=== PATIENT | female | born 1980 | race Caucasian/White ===

== ENCOUNTER 2022-02-11 00:28 | Observation (INO) | payer OTHER, SELFPAY ==
[2022-02-11] VITALS (9 sets, daily range): BP systolic 94–137; BP diastolic 52–89; PULSE 62–92; RESP 14–20; TEMP 36.1–36.9; O2SAT 94–100; BMI 34.7
--- NOTE | 2022-02-11 00:58 | ED_ITS ---
HPI - General Adult General Chief complaint: Abdominal Pain <Rosario Garcia MD - Last Filed: 02/11/22 02:08> Stated complaint: Abdominal Pain <Rosario Garcia MD - Last Filed: 02/11/22 02:08> Time Seen by Provider: 02/11/22 00:43 <Rosario Garcia MD - Last Filed: 02/11/22 02:08> Source: patient <Rosario Garcia MD - Last Filed: 02/11/22 02:08> Mode of arrival: ambulatory <Rosario Garcia MD - Last Filed: 02/11/22 02:08> Limitations: no limitations <Rosario Garcia MD - Last Filed: 02/11/22 02:08> History of Present Illness HPI narrative: 41-year-old female coming in today with abdominal pain. States that she has chronic pancreatitis and this feels like a flare up. 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 Pain is in the epigastric region radiates to the left upper quadrant and up into her left shoulder. [place] in the [place] there and it was recommended that she be admitted, however, she did not want to be admitted so far away from home so she felt that she could manage at home. The pain has come and gone however it is slowly getting worse. She has been using Valium and the lot it at home which does help with the pain but she feels like she has not been able to keep up with it today she has also had decreased p.o. intake as she feels very nauseated. She denies vomiting. No fevers or chills. States that she does have mucousy yellow stools. He denies . States that she has had a cholecystectomy in the past. <Rosario Garcia MD - Last Filed: 02/11/22 02:08> Related Data Home medications: Home Medications Medication Instructions Recorded Confirmed albuterol sulfate 90 mcg/actuation INHALATION 02/11/22 aerosol inhaler atorvastatin 20 mg tablet mg 02/11/22 duloxetine 30 mg capsule,delayed mg PO 02/11/22 release fexofenadine 180 mg tablet mg 02/11/22 fluconazole 150 mg tablet mg 02/11/22 fluticasone 250 mcg-salmeterol 50 INHALATION 02/11/22 mcg/dose blistr powdr for inhalation hydromorphone 4 mg tablet mg 02/11/22 hydroxyzine HCl 25 mg tablet mg 02/11/22 lorazepam 0.5 mg tablet mg 02/11/22 ondansetron 4 mg disintegrating mg 02/11/22 tablet <Rosario Garcia MD - Last Filed: 02/11/22 02:08> Allergies/adverse reactions: Allergies Allergy/AdvReac Type Severity Reaction Status Date / Time polyethylene glycol Allergy Anaphylaxis Verified 02/11/22 00:44 fentanyl AdvReac pain Verified 02/11/22 00:44 <Rosario Garcia MD - Last Filed: 02/11/22 02:08> Review of Systems Status of ROS: Reports: 10 or more systems reviewed and unremarkable except as noted in History and below <Rosario Garcia MD - Last Filed: 02/11/22 02:08> [facility] Social History: Social History Smoking Status: Current some day smoker How often do you have a drink containing alcohol: never AUDIT-C Alcohol total score: 0 Non-prescribed substance use: denies use <Rosario Garcia MD - Last Filed: 02/11/22 02:08> Exam Narrative: Exam Narrative: Well-nourished well-developed patient in no acute distress, but appears very uncomfortable. Alert and oriented. Answers questions appropriately. Mood and affect are appropriate. Thoughts are goal oriented and rational. No tangential or magical thinking noted. Patient speaks in full sentences without needing to catch their breath. Speech is not slurred or pressured. HEENT: Normocephalic atraumatic. Pupils are equally round reactive to light. Extraocular muscles are intact. Conjunctivae are moist without any icterus noted. Moist mucous membranes. Posterior pharynx is normal. Neck is soft without any lymphadenopathy or thyromegaly. No masses are appreciated. Cardiovascular: Heart is regular rate and rhythm S1 and S2 are present without any murmurs. Lungs: Clear to auscultation bilaterally no wheezes rhonchi or rales are appreciated. Patient takes deep breaths without any discomfort. Abdomen: Soft and nondistended with normal bowel sounds. No guarding or r ebound. No masses or organomegaly appreciated. She does have some epigastric tenderness. Extremities: Bilateral lower extremities are without edema. Normal DP and PT pulses. Skin: Well perfused without any obvious rashes. <Rosario Garcia MD - Last Filed: 02/11/22 02:08> Const: Vital Signs, click to edit/add: Vital Signs - 24 hr 02/11/22 00:37 Temperature 97.8 F Pulse Rate [Left P ulse Oximeter] 77 Respiratory Rate 16 Blood Pressure [Ri ght Upper Arm] 131/89 Pulse Oximetry 98 <Rosario Garcia MD - Last Filed: 02/11/22 02:08> Vital Signs, click to edit/add: Vital Signs - 24 hr 02/11/22 00:37 Temperature 97.8 F Pulse Rate [Left P ulse Oximeter] 77 Respiratory Rate 16 Blood Pressure [Ri ght Upper Arm] 131/89 Pulse Oximetry 98 <Eddi Rasmussen MD - Last Filed: 02/11/22 02:15> Course Course Hospital Course: IV was established patient received a L of normal saline, IV Dilaudid, IV Zofran. Labs were drawn hand did show an elevated lipase a just over 450. First dose of Dilaudid really did not do much for the patient therefore another dose was given which did take the edge off. Given the amount of discomfort she has been in for the last several days he has it was decided to admit the patient for pain control and IV hydration. <Rosario Garcia MD - Last Filed: 02/11/22 02:08> Reevaluation(s) Reevaluation #1: Spoke to the [facility]placed [facility] physician who accepted the patient admission to the hospital. Patient is stable for admission with her diagnosis of her chronic pancreatitis with a pain flare. <Eddi Rasmussen MD - Last Filed: 02/11/22 02:15> Time: 02:14 <Eddi Rasmussen MD - Last Filed: 02/11/22 02:15> Vital Signs Vital signs: Initial Vital Signs Temperature 97.8 F 02/11/22 00:37 Temperature Source Temporal Artery Scan 02/11/22 00:37 Pulse Rate 77 02/11/22 00:37 Respiratory Rate 16 02/11/22 00:37 Blood Pressure 131/89 02/11/22 00:37 Blood Pressure Mean 103 02/11/22 00:37 Blood Pressure Position Sitting 02/11/22 00:37 Pulse Oximetry 98 02/11/22 00:37 Oxygen Delivery Method 02/11/22 00:37 Vital Signs Temperature 97.8 F 02/11/22 00:37 Pulse Rate 77 02/11/22 00:37 Respiratory Rate 16 02/11/22 00:37 Blood Pressure 131/89 02/11/22 00:37 Pulse Oximetry 98 02/11/22 00:37 Temperature 97.8 F 02/11/22 00:37 Pulse Rate 77 02/11/22 00:37 Respiratory Rate 16 02/11/22 00:37 Blood Pressure 131/89 02/11/22 00:37 Pulse Oximetry 98 02/11/22 00:37 <Rosario Garcia MD - Last Filed: 02/11/22 02:08> Initial Vital Signs Temperature 97.8 F 02/11/22 00:37 Temperature Source Temporal Artery Scan 02/11/22 00:37 Pulse Rate 77 02/11/22 00:37 Respiratory Rate 16 02/11/22 00:37 Blood Pressure 131/89 02/11/22 00:37 Blood Pressure Mean 103 02/11/22 00:37 Blood Pressure Position Sitting 02/11/22 00:37 Pulse Oximetry 98 02/11/22 00:37 Oxygen Delivery Method 02/11/22 00:37 Vital Signs Temperature 97.8 F 02/11/22 00:37 Pulse Rate 77 02/11/22 00:37 Respiratory Rate 16 02/11/22 00:37 Blood Pressure 131/89 02/11/22 00:37 Pulse Oximetry 98 02/11/22 00:37 Temperature 97.8 F 02/11/22 00:37 Pulse Rate 77 02/11/22 00:37 Respiratory Rate 16 02/11/22 00:37 Blood Pressure 131/89 02/11/22 00:37 Pulse Oximetry 98 02/11/22 00:37 <Eddi Rasmussen MD - Last Filed: 02/11/22 02:15> Medical Decision Making MDM Narrative Medical decision making narrative: 41-year-old female with acute on chronic pancreatitis. Patient will be admitted for further management. <Rosario Garcia MD - Last Filed: 02/11/22 02:08> Medical Records Medical records reviewed: Yes I reviewed the patient's medical records <Rosario Garcia MD - Last Filed: 02/11/22 02:08> Lab Data Lab results reviewed: Yes I reviewed the patient's lab results <Rosario Garcia MD - Last Filed: 02/11/22 02:08> Labs: Lab Results 02/11/22 02/11/22 02/11/22 Range/Units 01:05 01:05 01:05 WBC 10.68 (4.50-11.00) K/uL RBC 4.96 (4.00-5.20) m/uL Hgb 14.1 (12.0-16.0) gm/dL Hct 41.3 (33.0-51.0) % MCV 83 (80-100) fL MCH 28 (26-34) pg MCHC 34 (32-36) gm/dL RDW Coeff of Declan 12.3 (11.5-15.5) % Plt Count 402 (140-440) K/uL Neut % (Auto) 61.9 (42.0-72.0) % Lymph % (Auto) 27.8 (20-44) % [place] % (Auto) 7.0 (0.0-11.0) % Eos % (Auto) 1.9 (0.0-7.0) % Baso % (Auto) 0.7 (0.0-3.0) % Neut # (Auto) 6.62 (1.7-7.0) K/uL Lymph # (Auto) 2.97 H (0.90-2.90) K/uL [place] # (Auto) 0.70 (0.00-0.90) K/UL Eos # (Auto) 0.20 (0.00-0.50) K/uL Baso # (Auto) 0.07 (0.00-0.30) K/uL Abs Immat Gran (auto) 0.07 (0.00-0.30) K/uL Sodium (135-149) mmol/L Potassium (3.6-5.1) mmol/L Chloride (96-114) mmol/L Carbon Dioxide (20-32) mmol/L BUN (5-24) mg/dL Creatinine (0.5-1.5) mg/dL Estimated Creat Clear Estimated GFR ml/min Glucose (60-115) mg/dL Lactate (0.5-1.9) mmol/L Calcium (8.4-10.6) mg/dL Total Bilirubin 0.5 (0.1-1.5) mg/dL Direct Bilirubin 0.2 (0.0-0.5) mg/dL AST 31 (12-35) U/L ALT 33 (4-35) U/L Alkaline Phosphatase 64 (40-150) U/L C-Reactive Protein (0.5-1.0) mg/dL Total Protein 7.6 (6.0-8.3) g/dL Albumin 4.5 (3.3-5.0) g/dL Amylase 102 H (18-89) U/L Lipase (23-300) U/L HCG, Qual Negative (Negative) Urine Color Yellow (Yellow) Urine Appearance Clear (Clear) Urine pH 6.5 (5.0-8.5) Ur Specific [place] >= 1.030 (1.000-1.030) Urine Protein Negative (Negative) Urine Glucose (UA) Negative (Negative) Urine Ketones Negative (Negative) Urine Blood Negative (Negative) Urine Nitrite Negative (Negative) Urine Bilirubin Negative (Negative) Urine Urobilinogen 0.2 (0.2-1.0) Ur Leukocyte Esterase Negative (Negative) Urine RBC 0-2 (0-2) Urine WBC 0-2 (0-5) Ur Squamous Epith Cells Moderate A (None-Few) Urine Bacteria Moderate A (None) 02/11/22 02/11/22 Range/Units 01:05 01:05 WBC (4.50-11.00) K/uL RBC (4.00-5.20) m/uL Hgb (12.0-16.0) gm/dL Hct (33.0-51.0) % MCV (80-100) fL MCH (26-34) pg MCHC (32-36) gm/dL RDW Coeff of Declan (11.5-15.5) % Plt Count (140-440) K/uL Neut % (Auto) (42.0-72.0) % Lymph % (Auto) (20-44) % [place] % (Auto) (0.0-11.0) % Eos % (Auto) (0.0-7.0) % Baso % (Auto) (0.0-3.0) % Neut # (Auto) (1.7-7.0) K/uL Lymph # (Auto) (0.90-2.90) K/uL [place] # (Auto) (0.00-0.90) K/UL Eos # (Auto) (0.00-0.50) K/uL Baso # (Auto) (0.00-0.30) K/uL Abs Immat Gran (auto) (0.00-0.30) K/uL Sodium 139 (135-149) mmol/L Potassium 3.9 (3.6-5.1) mmol/L Chloride 107 (96-114) mmol/L Carbon Dioxide 23 (20-32) mmol/L BUN 17 (5-24) mg/dL Creatinine 0.9 (0.5-1.5) mg/dL Estimated Creat Clear 76.23 Estimated GFR 82 ml/min Glucose 113 (60-115) mg/dL Lactate 1.3 (0.5-1.9) mmol/L Calcium 9.5 (8.4-10.6) mg/dL Total Bilirubin (0.1-1.5) mg/dL Direct Bilirubin (0.0-0.5) mg/dL AST (12-35) U/L ALT (4-35) U/L Alkaline Phosphatase (40-150) U/L C-Reactive Protein < 0.5 L (0.5-1.0) mg/dL Total Protein (6.0-8.3) g/dL Albumin (3.3-5.0) g/dL Amylase (18-89) U/L Lipase 448 H (23-300) U/L HCG, Qual (Negative) Urine Color (Yellow) Urine Appearance (Clear) Urine pH (5.0-8.5) Ur Specific [place] (1.000-1.030) Urine Protein (Negative) Urine Glucose (UA) (Negative) Urine Ketones (Negative) Urine Blood (Negative) Urine Nitrite (Negative) Urine Bilirubin (Negative) Urine Urobilinogen (0.2-1.0) Ur Leukocyte Esterase (Negative) Urine RBC (0-2) Urine WBC (0-5) Ur Squamous Epith Cells (None-Few) Urine Bacteria (None) <Rosario Garcia MD - Last Filed: 02/11/22 02:08> Lab Results 02/11/22 02/11/22 02/11/22 Range/Units 01:05 01:05 01:05 WBC 10.68 (4.50-11.00) K/uL RBC 4.96 (4.00-5.20) m/uL Hgb 14.1 (12.0-16.0) gm/dL Hct 41.3 (33.0-51.0) % MCV 83 (80-100) fL MCH 28 (26-34) pg MCHC 34 (32-36) gm/dL RDW Coeff of Declan 12.3 (11.5-15.5) % Plt Count 402 (140-440) K/uL Neut % (Auto) 61.9 (42.0-72.0) % Lymph % (Auto) 27.8 (20-44) % [place] % (Auto) 7.0 (0.0-11.0) % Eos % (Auto) 1.9 (0.0-7.0) % Baso % (Auto) 0.7 (0.0-3.0) % Neut # (Auto) 6.62 (1.7-7.0) K/uL Lymph # (Auto) 2.97 H (0.90-2.90) K/uL [place] # (Auto) 0.70 (0.00-0.90) K/UL Eos # (Auto) 0.20 (0.00-0.50) K/uL Baso # (Auto) 0.07 (0.00-0.30) K/uL Abs Immat Gran (auto) 0.07 (0.00-0.30) K/uL Sodium (135-149) mmol/L Potassium (3.6-5.1) mmol/L Chloride (96-114) mmol/L Carbon Dioxide (20-32) mmol/L BUN (5-24) mg/dL Creatinine (0.5-1.5) mg/dL Estimated Creat Clear Estimated GFR ml/min Glucose (60-115) mg/dL Lactate (0.5-1.9) mmol/L Calcium (8.4-10.6) mg/dL Total Bilirubin 0.5 (0.1-1.5) mg/dL Direct Bilirubin 0.2 (0.0-0.5) mg/dL AST 31 (12-35) U/L ALT 33 (4-35) U/L Alkaline Phosphatase 64 (40-150) U/L C-Reactive Protein (0.5-1.0) mg/dL Total Protein 7.6 (6.0-8.3) g/dL Albumin 4.5 (3.3-5.0) g/dL Amylase 102 H (18-89) U/L Lipase (23-300) U/L HCG, Qual Negative (Negative) Urine Color Yellow (Yellow) Urine Appearance Clear (Clear) Urine pH 6.5 (5.0-8.5) Ur Specific [place] >= 1.030 (1.000-1.030) Urine Protein Negative (Negative) Urine Glucose (UA) Negative (Negative) Urine Ketones Negative (Negative) Urine Blood Negative (Negative) Urine Nitrite Negative (Negative) Urine Bilirubin Negative (Negative) Urine Urobilinogen 0.2 (0.2-1.0) Ur Leukocyte Esterase Negative (Negative) Urine RBC 0-2 (0-2) Urine WBC 0-2 (0-5) Ur Squamous Epith Cells Moderate A (None-Few) Urine Bacteria Moderate A (None) 02/11/22 02/11/22 Range/Units 01:05 01:05 WBC (4.50-11.00) K/uL RBC (4.00-5.20) m/uL Hgb (12.0-16.0) gm/dL Hct (33.0-51.0) % MCV (80-100) fL MCH (26-34) pg MCHC (32-36) gm/dL RDW Coeff of Declan (11.5-15.5) % Plt Count (140-440) K/uL Neut % (Auto) (42.0-72.0) % Lymph % (Auto) (20-44) % [place] % (Auto) (0.0-11.0) % Eos % (Auto) (0.0-7.0) % Baso % (Auto) (0.0-3.0) % Neut # (Auto) (1.7-7.0) K/uL Lymph # (Auto) (0.90-2.90) K/uL [place] # (Auto) (0.00-0.90) K/UL Eos # (Auto) (0.00-0.50) K/uL Baso # (Auto) (0.00-0.30) K/uL Abs Immat Gran (auto) (0.00-0.30) K/uL Sodium 139 (135-149) mmol/L Potassium 3.9 (3.6-5.1) mmol/L Chloride 107 (96-114) mmol/L Carbon Dioxide 23 (20-32) mmol/L BUN 17 (5-24) mg/dL Creatinine 0.9 (0.5-1.5) mg/dL Estimated Creat Clear 76.23 Estimated GFR 82 ml/min Glucose 113 (60-115) mg/dL Lactate 1.3 (0.5-1.9) mmol/L Calcium 9.5 (8.4-10.6) mg/dL Total Bilirubin (0.1-1.5) mg/dL Direct Bilirubin (0.0-0.5) mg/dL AST (12-35) U/L ALT (4-35) U/L Alkaline Phosphatase (40-150) U/L C-Reactive Protein < 0.5 L (0.5-1.0) mg/dL Total Protein (6.0-8.3) g/dL Albumin (3.3-5.0) g/dL Amylase (18-89) U/L Lipase 448 H (23-300) U/L HCG, Qual (Negative) Urine Color (Yellow) Urine Appearance (Clear) Urine pH (5.0-8.5) Ur Specific [place] (1.000-1.030) Urine Protein (Negative) Urine Glucose (UA) (Negative) Urine Ketones (Negative) Urine Blood (Negative) Urine Nitrite (Negative) Urine Bilirubin (Negative) Urine Urobilinogen (0.2-1.0) Ur Leukocyte Esterase (Negative) Urine RBC (0-2) Urine WBC (0-5) Ur Squamous Epith Cells (None-Few) Urine Bacteria (None) <Eddi Rasmussen MD - Last Filed: 02/11/22 02:15> Discharge Plan Discharge Clinical Impression: Pancreatitis <Rosario Garcia MD - Last Filed: 02/11/22 02:08> Patient Disposition: Admitted As Inpatient <Rosario Garcia MD - Last Filed: 02/11/22 02:08>
[2022-02-11 01:13] LABS: Lactate* 1.3 mmol/L (0.5-1.9)
[2022-02-11 01:14] LABS: Basophils Absolute Auto 0.07 K/uL (0.00-0.30); Basophils Percent Auto 0.7 % (0.0-3.0); Eosinophils Percent Auto 1.9 % (0.0-7.0); Hematocrit 41.3 % (33.0-51.0); Hemoglobin* 14.1 gm/dL (12.0-16.0); Immature Granulocytes Abs Auto 0.07 K/uL (0.00-0.30); Lymphocytes Absolute Auto 2.97 K/uL (0.90-2.90); Lymphocytes Percent Auto 27.8 % (20-44); Mean Corpuscular HGB Conc 34 gm/dL (32-36); Mean Corpuscular Hemoglobin 28 pg (26-34); Mean Corpuscular Volume 83 fL (80-100); Neutrophils Absolute Auto 6.62 K/uL (1.7-7.0); Neutrophils Percent Auto 61.9 % (42.0-72.0); Platelet Count* 402 K/uL (140-440); RDW Coefficient of Variation % 12.3 % (11.5-15.5); Red Blood Count 4.96 m/uL (4.00-5.20); White Blood Count* 10.68 K/uL (4.50-11.00)
[2022-02-11] MEDS: HYDROmorphone 0.5 mg/0.5 ml inj IVP ×2 (01:16→01:59)
[2022-02-11] MEDS: ONDANSETRON 2 MG/ML inj 4 MG IVP ×6 (01:16→20:59)
[2022-02-11] MEDS: 0.9 % SODIUM CHLORIDE 1000 ml 1,000 ML IV (01:16)
[2022-02-11 01:17] LABS: Appearance Urine Clear (Clear); Bilirubin Urine Negative (Negative); Blood Urine Negative (Negative); Color Urine Yellow (Yellow); Glucose Urine Negative (Negative); Ketones Urine Negative (Negative); Leukocyte Esterase Urine Negative (Negative); Nitrite Urine Negative (Negative); Protein Urine Negative (Negative); Slide Review Reflex No; Specific Gravity Urine >= 1.030 (1.000-1.030); Urobilinogen Urine 0.2 (0.2-1.0); pH Urine 6.5 (5.0-8.5)
[2022-02-11 01:21] LABS: HCG Qualitative* Negative (Negative)
[2022-02-11 01:23] LABS: RBC Urine 0-2 (0-2); Squamous Epithelial Cell Urine Moderate (None-Few); WBC Urine 0-2 (0-5)
[2022-02-11 01:24] LABS: Bacteria Urine Moderate
[2022-02-11 01:31] LABS: Albumin* 4.5 g/dL (3.3-5.0)
[2022-02-11 01:32] LABS: Chloride* 107 mmol/L (96-114); Potassium* 3.9 mmol/L (3.6-5.1); Sodium* 139 mmol/L (135-149)
[2022-02-11 01:34] LABS: Alkaline Phosphatase* 64 U/L (40-150); Amylase* 102 U/L (18-89); Aspartate Amino Transferase* 31 U/L (12-35); Bilirubin Direct* 0.2 mg/dL (0.0-0.5); Bilirubin Total* 0.5 mg/dL (0.1-1.5); Total Protein* 7.6 g/dL (6.0-8.3)
[2022-02-11 01:35] LABS: Alanine Aminotransferase* 33 U/L (4-35); Creatinine* 0.9 mg/dL (0.5-1.5); Est. Creatinine Clearance* 76.23; Estimated Glomerular Filt Rate 82 ml/min; Lipase* 448 U/L (23-300)
[2022-02-11 01:36] LABS: Blood Urea Nitrogen* 17 mg/dL (5-24); Calcium* 9.5 mg/dL (8.4-10.6); Carbon Dioxide* 23 mmol/L (20-32); Glucose* 113 mg/dL (60-115)
[2022-02-11 01:39] LABS: C Reactive Protein* < 0.5 mg/dL (0.5-1.0)
[2022-02-11 02:45] LABS: SARS Antigen* negative (Negative)
[2022-02-11 02:51] LABS: Erythrocyte SedimentationRate* 8 mm/hr (2-20)
--- NOTE | 2022-02-11 03:28 | PM.IMCN1 ---
Date of Consult Primary Care Provider: Jacinta Mendes MD Consult Narrative Narrative: Tatum Taylor is a 41 year old female [facility] Social History Smoking Status: Current some day smoker How often do you have a drink containing alcohol: never AUDIT-C Alcohol total score: 0 Non-prescribed substance use: denies use Meds Home Medications and Allergies Home Medications Medication Instructions Recorded Confirmed Type albuterol sulfate 90 mcg/actuation INHALATION 02/11/22 History aerosol inhaler atorvastatin 20 mg tablet mg 02/11/22 History duloxetine 30 mg capsule,delayed mg PO 02/11/22 History release fexofenadine 180 mg tablet mg 02/11/22 History fluconazole 150 mg tablet mg 02/11/22 History fluticasone 250 mcg-salmeterol 50 INHALATION 02/11/22 History mcg/dose blistr powdr for inhalation hydromorphone 4 mg tablet mg 02/11/22 History hydroxyzine HCl 25 mg tablet mg 02/11/22 History lorazepam 0.5 mg tablet mg 02/11/22 History ondansetron 4 mg disintegrating mg 02/11/22 History tablet Allergies Allergy/AdvReac Type Severity Reaction Status Date / Time polyethylene glycol Allergy Anaphylaxis Verified 02/11/22 00:44 fentanyl AdvReac pain Verified 02/11/22 00:44 Exam Const: Vital Signs, click to edit/add: Vital Signs - 24 hr 02/11/22 00:37 02/11/22 02:26 Temperature 97.8 F Pulse Rate [Left P ulse Oximeter] 77 77 Respiratory Rate 16 Blood Pressure [Ri ght Upper Arm] 131/89 Pulse Oximetry 98 97 Labs Labs: Short CBC 02/11/22 Range/Units 01:05 WBC 10.68 (4.50-11.00) K/uL Hgb 14.1 (12.0-16.0) gm/dL Hct 41.3 (33.0-51.0) % Plt Count 402 (140-440) K/uL BMP 02/11/22 01:05 Sodium 139 Potassium 3.9 Chloride 107 Carbon Dioxide 23 BUN 17 Creatinine 0.9 Glucose 113 Calcium 9.5 Liver Function 02/11/22 Range/Units 01:05 Total Bilirubin 0.5 (0.1-1.5) mg/dL Direct Bilirubin 0.2 (0.0-0.5) mg/dL AST 31 (12-35) U/L ALT 33 (4-35) U/L Alkaline Phosphatase 64 (40-150) U/L Albumin 4.5 (3.3-5.0) g/dL Urine 02/11/22 Range/Units 01:05 Urine Color Yellow (Yellow) Urine Appearance Clear (Clear) Urine pH 6.5 (5.0-8.5) Ur Specific [place] >= 1.030 (1.000-1.030) Urine Protein Negative (Negative) Urine Glucose (UA) Negative (Negative) Assessment and Plan Assessment and plan (1) Pancreatitis: Status: Acute Plan [facility] Hospitalist CONSULTATION NOTE: Reason for consult: Pancreatitis HPI: Patient is a pleasant 41-year-old female with a 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 She has had pain since earlier in the week and did present to an outside ED as she was out of town. She was treated with PRNs there as she was having spasms of her sphincter of Oddi. Pain was able to get under control and she eventually was went home from the ER. She tried to manage at home with clear liquid diet and PRNs that she has at home but was unable. She presents the ED today with worsening pain. She has had nausea without any significant vomiting as well. She is not having diarrhea but has had change in stools as she is been on a clear liquid diet. She denies any headaches or lightheadedness. She denies any chest pain or shortness of breath. She is not having fevers or chills. In the ER she was found to have elevated lipase. Patient does smoke on rare occasion. She does not drink alcohol or use recreational drugs. We did discuss CODE STATUS and patient wishes to be full code. Exam (performed via interactive video with assistance of bedside nurse): General: Alert, cooperative, no acute distress HEENT: Pupils reported ERRL, oral mucosa pink and moist without erythema Lungs: Clear to auscultation bilaterally without crackle or wheeze CV: Regular rate and rhythm without loud murmur rub or gallop Abd: Bowel is tender to palpation bilateral upper quadrants and epigastric area. Ext: No pitting edema noted Skin: No rashes, bruises or lesions appreciated on gross visualization of exposed skin Neuro: Alert, oriented x 3. CN III -VII, XI, XII grossly intact, moves all extremities without any significant focal deficit appreciated by nurse Assessment and Plan: 1. Pancreatitis Patient is a pleasant 41-year-old female admitted for acute pancreatitis. We will treat her with IV PRNs for pain, nausea, and anxiety/special. We will place her on IV fluid and n.p.o. diet overnight. Once pain is started to result diet can be reinitiated. Chronic outpatient medications will be continued as appropriate when fully verified in the morning. Patient is young and can ambulate so no pharmacologic DVT prophylaxis have been ordered. Patient is a full code. Thank you for [facility]. This service is available for further assistance as requested by your care team by calling [phone].
[2022-02-11] MEDS: HYDROmorphone 0.5 mg/0.5 ml inj 1 MG IVP ×7 (04:09→22:17)
[2022-02-11] MEDS: LACTATED RINGERS 1000 ML 1,000 ML 125 ML IV ×3 (04:10→19:25)
--- NOTE | 2022-02-11 05:54 | PC.NURSE ---
patient admitted to floor approx 0300, patient alert/oriented, patient NPO. pain and nausea come on quickly, see EMAR for meds given. patient sensitive skin, special linen applied to bed.
--- NOTE | 2022-02-11 08:11 | PM.IMHP1 ---
Hospitalist- H&P: HPI History of Present Illness Time Seen by Provider: 07:12 Date Seen: 02/12/22 Chief complaint: Abdominal Pain Narrative: Tatum Taylor is a 41 year old female with a history of sphincter of Oddi dysfunction who presented for worsening epigastric pain last night. She tells me that he has to have a lot of trouble with abdominal pain for which she has been following with Dr. Temo Tinajero from [facility]. A few years back she had a total of 5 sphincterotomies and since then had been doing fairly well. Had not had a flare up in several years. She does have chronic epigastric pain of about 1 to 2/10 constantly. Last Friday her epigastric pain flared up, but she was able to go to work and do her usual activities despite that. Friday was really difficult at work and she considered even calling in sick but made it through the day and then was doing okay over the weekend again although still had increased epigastric pain. Last night when she got home from work her pain increased quite dramatically. She took a Dilaudid and a Zofran, but still had significant symptoms that brought her to the emergency department. She recalls that Dr. Tinajero told her that if she did have another flare at some point or if he can not sphincter of Oddi dysfunction that she would not be able to have another sphincterotomy and would likely have to see José Faustin at [facility]. Review of Systems Const: Reports: chills; Denies: fever ENMT: Denies: difficulty swallowing Cardio: Denies: chest pain, swelling of feet/ankles or shortness of breath with exertion Resp: Denies: shortness of breath GI: Reports: abdominal pain and diarrhea (softer than normal stool yesterday); Denies: difficulty swallowing : Reports: decreased urine ouput Musculo: Reports: back pain (referred pain from left abdomen that wraps around to back) [facility] Medical History (Updated 02/12/22 @ 09:54 by Pita Springer MD) Mast cell activation syndrome (Unknown) Sphincter of Oddi dysfunction (Unknown) Sphincter of Oddi spasm Surgical History (Updated 02/11/22 @ 08:26 by Pita Springer MD) History of sphincterotomy of sphincter of Oddi History of tonsillectomy and adenoidectomy Hx laparoscopic cholecystectomy Hx of appendectomy Family History (Updated 02/11/22 @ 08:29 by Pita Springer MD) Sister Danika's disease Sister Raynaud phenomenon Mother Rheumatoid arthritis Erythema multiforme Social History (Updated 02/11/22 @ 08:29 by Pita Springer MD) Narrative: FULL CODE; 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; ; two kids, ages 14 and 17 Highest level of school completed/degree received: Associate degree: academic program Smoking Status: Current some day smoker How often do you have a drink containing alcohol: never AUDIT-C Alcohol total score: 0 Non-prescribed substance use: denies use Caffeine: Yes (2 cans of soda a day) service: Yes Meds Home Medications and Allergies Home Medications Medication Instructions Recorded Confirmed Type albuterol sulfate 90 mcg/actuation 2 puff INHALATION QID PRN 02/11/22 02/11/22 History aerosol inhaler atorvastatin 20 mg tablet 20 mg PO HS 02/11/22 02/11/22 History cetirizine 10 mg tablet (Zyrtec) 20 mg PO ONCE PRN 02/11/22 02/11/22 History duloxetine 30 mg capsule,delayed 60 mg PO HS 02/11/22 02/11/22 History release fexofenadine 180 mg tablet 180 mg PO BID 02/11/22 02/11/22 History fluocinonide 0.05 % topical cream 1 applic TOPICAL DAILY PRN 02/11/22 02/11/22 History fluticasone 250 mcg-salmeterol 50 1 inh INHALATION Q12H 02/11/22 02/11/22 History mcg/dose blistr powdr for inhalation hydromorphone 4 mg tablet 2 - 4 mg PO Q6H PRN 02/11/22 02/11/22 History hydroxyzine HCl 25 mg tablet 25 - 50 mg PO HS PRN 02/11/22 02/11/22 History lorazepam 0.5 mg tablet 0.5 - 1 mg PO Q8H PRN 02/11/22 02/11/22 History ondansetron 4 mg disintegrating 4 mg PO Q6H PRN 02/11/22 02/11/22 History tablet prednisone 20 mg tablet 100 mg PO ONCE PRN 02/11/22 02/11/22 History Allergies Allergy/AdvReac Type Severity Reaction Status Date / Time polyethylene glycol Allergy Anaphylaxis Verified 02/11/22 17:49 fentanyl AdvReac pain Verified 02/11/22 17:49 Exam Narrative: Exam Narrative: General: No acute distress. Awake alert oriented x3. At times has shaking chills during my interview and examination. HEENT: Normocephalic atraumatic, pupils equally round and reactive to light and accommodation. Oropharynx clear. Mucous membranes are moist. No cervical lymphadenopathy, thyromegaly or carotid bruits. No JVD. Cardiovascular: Regular rate and rhythm. No murmurs, gallops, or rubs. Chest: No increased work of breathing. Clear to auscultation bilaterally. No crackles or wheezes. Abdomen: Bowel sounds present. Soft, nondistended, mildly tender to palpation in the epigastrium. No rebound tenderness or guarding. No hepatosplenomegaly or masses. Extremities: No edema, no cyanosis or clubbing. Skin: No jaundice, no pallor, no rashes. Const: Vital Signs, click to edit/add: Vital Signs - 24 hr 02/11/22 00:37 02/11/22 02:25 02/11/22 02:26 Temperature 97.8 F 98.4 F Pulse Rate [Left P ulse Oximeter] 77 77 Pulse Rate [Left R adial] 75 Respiratory Rate 16 18 Blood Pressure [Le ft Arm] 129/52 L Blood Pressure [Ri ght Upper Arm] 131/89 Pulse Oximetry 98 100 97 02/11/22 07:00 Temperature 97.0 F L Pulse Rate [Left P ulse Oximeter] Pulse Rate [Left R adial] 88 Respiratory Rate 20 Blood Pressure [Le ft Arm] 137/88 Blood Pressure [Ri ght Upper Arm] Pulse Oximetry 99 Hospitalist - H&P: Result Labs Labs: Short CBC 02/11/22 Range/Units 01:05 WBC 10.68 (4.50-11.00) K/uL Hgb 14.1 (12.0-16.0) gm/dL Hct 41.3 (33.0-51.0) % Plt Count 402 (140-440) K/uL BMP 02/11/22 01:05 Sodium 139 Potassium 3.9 Chloride 107 Carbon Dioxide 23 BUN 17 Creatinine 0.9 Glucose 113 Calcium 9.5 Liver Function 02/11/22 Range/Units 01:05 Total Bilirubin 0.5 (0.1-1.5) mg/dL Direct Bilirubin 0.2 (0.0-0.5) mg/dL AST 31 (12-35) U/L ALT 33 (4-35) U/L Alkaline Phosphatase 64 (40-150) U/L Albumin 4.5 (3.3-5.0) g/dL Urine // Range/Units 01:05 Urine Color Yellow (Yellow) Urine Appearance Clear (Clear) Urine pH 6.5 (5.0-8.5) Ur Specific [place] >= 1.030 (1.000-1.030) Urine Protein Negative (Negative) Urine Glucose (UA) Negative (Negative) Assessment and Plan Assessment and plan (1) Pancreatitis: Status: Acute Assessment and Plan: Admit as inpatient. LR @ 125 cc/h NPO for bowel rest recheck lipase and BMP in am. prn IV dilaudid for pain control. (2) Mast cell activation syndrome: Status: Chronic Assessment and Plan: Continue home medications. Add prn benadryl. (3) Sphincter of Oddi spasm: Status: Acute Plan VTE prophylaxis with TEDs and ambulation.
[2022-02-11] MEDS: LORazepam 2 MG/ML inj 1 MG IVP ×2 (08:36→15:36)
--- NOTE | 2022-02-11 19:40 | PC.NURSE ---
[id number]: Pt. nauseated and with left sided abdominal/flank pain throughout shift, alleviated w/aromatherapy and PRN medications. Retching, but no emesis. Voided small unmeasured amount this afternoon. Home meds initiated. Pt. requested to keep emergency meds for angioedema at bedside; denied. These meds given to spouse and pt. instructed to inform staff of any issues; she was in agreement. Moving w/IV pole SBA. Spouse and son visited. Currently NPO w/hypoactive bowel sounds.
[2022-02-11 19:46] LABS: Lipase* 461 U/L (23-300)
[2022-02-11] MEDS: ATORVASTATIN 10 MG TABLET 20 MG PO (20:55)
[2022-02-11] MEDS: FEXOFENADINE 180 MG TABLET PO (20:56)
[2022-02-11] MEDS: DULOXETINE 30 MG CAPSULE DR 60 MG PO (20:59)
[2022-02-12] MEDS: LORazepam 2 MG/ML inj 1 MG IVP ×3 (01:09→13:11)
[2022-02-12] MEDS: ONDANSETRON 2 MG/ML inj 4 MG IVP ×2 (01:21→17:05)
[2022-02-12] MEDS: LACTATED RINGERS 1000 ML 1,000 ML 125 ML IV (03:18)
[2022-02-12 03:20] VITALS: BP 130/90; PULSE 78; RESP 20; TEMP 36.4; O2SAT 94
[2022-02-12] MEDS: HYDROmorphone 0.5 mg/0.5 ml inj 1 MG IVP ×7 (03:21→21:17)
--- NOTE | 2022-02-12 06:30 | PC.NURSE ---
SHIFT NOTE -: Pt pleasant, A&O. Afebrile, oxygen saturations >90% on room air. PRN Dilaudid given x2 for pain and PRN Zofran given for nausea, pt reported relief. Pt up SBA and tolerating fair, at times pt becomes very nauseated with movement. Denies CP and SOB.
[2022-02-12 06:59] LABS: Basophils Absolute Auto 0.05 K/uL (0.00-0.30); Basophils Percent Auto 0.8 % (0.0-3.0); Eosinophils Absolute Auto 0.06 K/uL (0.00-0.50); Eosinophils Percent Auto 0.9 % (0.0-7.0); Hematocrit 35.7 % (33.0-51.0); Hemoglobin* 12.2 gm/dL (12.0-16.0); Immature Granulocytes Abs Auto 0.01 K/uL (0.00-0.30); Lymphocytes Absolute Auto 2.03 K/uL (0.90-2.90); Mean Corpuscular HGB Conc 34 gm/dL (32-36); Mean Corpuscular Hemoglobin 28 pg (26-34); Mean Corpuscular Volume 83 fL (80-100); Monocytes Percent Auto 5.7 % (0.0-11.0); Neutrophils Absolute Auto 3.83 K/uL (1.7-7.0); Neutrophils Percent Auto 60.4 % (42.0-72.0); Platelet Count* 314 K/uL (140-440); RDW Coefficient of Variation % 11.8 % (11.5-15.5); Red Blood Count 4.32 m/uL (4.00-5.20); White Blood Count* 6.34 K/uL (4.50-11.00)
[2022-02-12 07:00] VITALS: BP 103/69; PULSE 80; RESP 20
[2022-02-12 07:20] LABS: Chloride* 104 mmol/L (96-114); Potassium* 4.1 mmol/L (3.6-5.1); Sodium* 135 mmol/L (135-149)
[2022-02-12 07:22] LABS: Est. Creatinine Clearance* 68.61; Estimated Glomerular Filt Rate 72 ml/min
[2022-02-12 07:23] LABS: Blood Urea Nitrogen* 9 mg/dL (5-24); Calcium* 8.6 mg/dL (8.4-10.6); Carbon Dioxide* 27 mmol/L (20-32); Glucose* 98 mg/dL (60-115)
[2022-02-12 07:36] LABS: Slide Review Reflex No
[2022-02-12 08:09] LABS: Lipase* 249 U/L (23-300)
[2022-02-12 08:46] VITALS: PULSE 80; RESP 20; TEMP 37; O2SAT 94
[2022-02-12] MEDS: FEXOFENADINE 180 MG TABLET PO ×2 (08:57→21:17)
--- NOTE | 2022-02-12 10:03 | P.IMPN_ITS ---
Progress Note: A&P Assessment and plan (1) Pancreatitis: Status: Acute Assessment and Plan: Symptoms starting to improve and lipase has normalized. Advance diet to clears. Patient appears volume depleted. Increase IVF to 150 cc/h. Recheck labs in am. (2) Sphincter of Oddi spasm: Status: Acute Assessment and Plan: Continue home medications. (3) Mast cell activation syndrome: Status: Chronic Assessment and Plan: Continue home medications. (4) Ileus: Problem details: due to pancreatitis Status: Acute Assessment and Plan: Complains of nausea, decreased bowel sounds. Add reglan prn. Start clears. I have encouraged her to walk in halls 6 times today. Plan VTE prophylaxis with TEDs and ambulation. Subjective Time Seen by Provider: 08:10 Date Seen: 02/12/22 Interval history: Feeling a bit better today. Had a mast cell reaction yesterday that cleared up with a cold shower. Has not had flatus for BM for 2 days. Complains of nausea. Exam Narrative: Exam Narrative: General: No acute distress. Awake alert oriented. Comfortable today without chills or rigors. Cardiovascular: Regular rate and rhythm. No murmurs, gallops, or rubs. Chest: No increased work of breathing. Clear to auscultation bilaterally. No crackles or wheezes. Abdomen: Bowel sounds absent. Soft, nondistended, less tender to palpation in the epigastrium. No rebound tenderness or guarding. No hepatosplenomegaly or masses. Extremities: No edema, no cyanosis or clubbing. Const: Vital Signs, click to edit/add: Vital Signs - 24 hr 02/11/22 10:52 02/11/22 15:15 02/11/22 15:49 Temperature 98.0 F Pulse Rate [Left R adial] 78 73 Respiratory Rate 20 16 14 Blood Pressure [Le ft Arm] Blood Pressure [Ri ght Arm] 94/62 Pulse Oximetry 94 02/11/22 19:00 02/11/22 23:00 02/12/22 03:20 Temperature 98.3 F 97.8 F 97.6 F Pulse Rate [Left R adial] 62 84 78 Respiratory Rate 16 16 20 Blood Pressure [Le ft Arm] 130/90 H Blood Pressure [Ri ght Arm] 137/86 110/64 Pulse Oximetry 98 95 94 02/12/22 07:00 02/12/22 08:46 Temperature 98.6 F Pulse Rate [Left R adial] 80 80 Respiratory Rate 20 20 Blood Pressure [Le ft Arm] Blood Pressure [Ri ght Arm] 103/69 Pulse Oximetry 94 Labs Labs: Laboratory Results - last 24 hr 02/11/22 02/12/22 02/12/22 01:05 06:31 06:31 WBC 6.34 RBC 4.32 Hgb 12.2 Hct 35.7 MCV 83 MCH 28 MCHC 34 RDW Coeff of Declan 11.8 Plt Count 314 Neut % (Auto) 60.4 Lymph % (Auto) 32.0 [place] % (Auto) 5.7 Eos % (Auto) 0.9 Baso % (Auto) 0.8 Neut # (Auto) 3.83 Lymph # (Auto) 2.03 [place] # (Auto) 0.40 Eos # (Auto) 0.06 Baso # (Auto) 0.05 Abs Immat Gran (auto) 0.01 Sodium 135 Potassium 4.1 Chloride 104 Carbon Dioxide 27 BUN 9 Creatinine 1.0 Estimated Creat Clear 68.61 Estimated GFR 72 Glucose 98 Calcium 8.6 Lipase 461 H 249
[2022-02-12] MEDS: LACTATED RINGERS 1000 ML 1,000 ML 150 ML IV ×2 (11:30→17:24)
--- NOTE | 2022-02-12 13:42 | PC.NURSE ---
End of Shift Note: Patient was having a ok day until shortly after noon. She was complaining of sphincter spasm 06/29 looking at her MAR she really did not have anything I could give her. Called Dr. Jeong and received a couple of one time orders. She received a one time dose of dilaudid 1 mg which did not appear to help her much. She was then able to get a one time dose of ativan 1 mg which then helped the spasm to subside. Will continue to monitor.
[2022-02-12 16:00] VITALS: BP 115/77; PULSE 80; RESP 20; TEMP 37.1; O2SAT 96
[2022-02-12] MEDS: MORPHINE 4 MG/ML INJ IVP (18:02)
[2022-02-12 19:00] VITALS: BP 115/77; PULSE 84; RESP 18; TEMP 36.9; O2SAT 97
[2022-02-12] MEDS: METOCLOPRAMIDE HCL 5 MG/ML INJ 10 MG IVP (19:36)
[2022-02-12] MEDS: DULOXETINE 30 MG CAPSULE DR 60 MG PO (21:17)
[2022-02-12] MEDS: ATORVASTATIN 10 MG TABLET 20 MG PO (21:17)
--- NOTE | 2022-02-12 22:59 | PC.NURSE ---
[id number]: Patient kind and cooperative with cares. Rates pain 5-8/10 in upper L. abdomen which radiates to the back. Patient having a difficult time finding relief from the pain. PRN Dilaudid x2 and Morphine x1 administered. Aqua K pad also utilized. C/O nausea with retching but no emesis. PRN Zofran and Reglan along with aromatherapy administered for relief. Family members and a friend were in to visit during shift. Patient encouraged to walk in halls when able to tolerate and observed x3. Independent.
[2022-02-13] VITALS (7 sets, daily range): BP systolic 98–128; BP diastolic 66–86; PULSE 73–88; RESP 14–20; TEMP 36.6–37; O2SAT 93–95
[2022-02-13] MEDS: HYDROmorphone 0.5 mg/0.5 ml inj 1 MG IVP ×6 (00:12→23:19)
[2022-02-13] MEDS: LACTATED RINGERS 1000 ML 1,000 ML 150 ML IV ×4 (00:16→19:37)
[2022-02-13] MEDS: LORazepam 2 MG/ML inj 1 MG IVP (04:15)
--- NOTE | 2022-02-13 05:21 | PC.NURSE ---
[id number] Pt was able to sleep on and off during bouts of increased pain. at beginning of shift pain 5/10, relief with 0.5mg Dilaudid and was able to sleep, approx 0400 pt awake for vitals, pain 7/10, 1mg Dilaudid administered with little relief, pt then had pain 10/10 due to sphincter cramping, up on all 4's in bed to try and get relief, was able to get relief with 1mg ativan, 1 hour later rated pain 3/10, appeared much more at ease and has been sleeping since, states the pain radiates across her upper abd, up to her L shoulder and around her back. will continue to monitor. bowel sounds absent in lower quadrant and hypoactive in upper, denies passing gas.
[2022-02-13 07:47] LABS: Chloride* 104 mmol/L (96-114); Potassium* 4.1 mmol/L (3.6-5.1); Sodium* 135 mmol/L (135-149)
[2022-02-13 07:49] LABS: Est. Creatinine Clearance* 68.61; Estimated Glomerular Filt Rate 72 ml/min
[2022-02-13 07:50] LABS: Blood Urea Nitrogen* 9 mg/dL (5-24); Calcium* 8.6 mg/dL (8.4-10.6); Carbon Dioxide* 27 mmol/L (20-32); Glucose* 93 mg/dL (60-115)
[2022-02-13] MEDS: FEXOFENADINE 180 MG TABLET PO ×2 (08:31→20:30)
[2022-02-13] MEDS: MORPHINE 4 MG/ML INJ IVP ×2 (09:59→18:08)
--- NOTE | 2022-02-13 10:03 | CRLHL7_ITS ---
For Patients: As a result of the Century Cures Act, medical imaging exams and procedure reports are released immediately into your electronic medical record. You may view this report before your referring provider. If you have questions, please contact your health care provider. INDICATION: Abdominal pain. TECHNIQUE: CT of the abdomen and pelvis with 100 cc Isovue 370 IV contrast. Coronal and sagittal reconstructions. COMPARISON: CT of the abdomen and pelvis 06/15/2016. FINDINGS: There is a tiny low-attenuation lesion in the superior right hepatic lobe which is too small to characterize but likely benign. Cholecystectomy. Stable mild intrahepatic bile duct dilation likely related to post cholecystectomy state. No dilation of the common bile duct. The spleen is enlarged measuring 14.6 cm in AP dimension today compared to 13 cm previously. The pancreas and adrenal glands are negative. Hepatic and portal veins are patent. Symmetric enhancement of the kidneys. No hydronephrosis or ureteral dilation. No obstructing urinary calculi identified. The urinary bladder is distended but otherwise unremarkable. The uterus is normal in appearance. No adnexal mass. Small hiatal hernia. No bowel dilation. There are multiple fluid-filled loops of mid and distal small bowel which are nonspecific. No significant wall thickening. Moderate amount of stool throughout the colon. Appendectomy. Trace free fluid in the pelvic cul-de-sac is likely physiologic. No intraperitoneal free air. No lymphadenopathy. The bones are unremarkable. Subcutaneous edema along the lateral aspect of both hips. Mild bibasilar atelectasis. IMPRESSION: 1. Multiple fluid-filled loops of mid and distal small bowel are nonspecific but could be due to enteritis. 2. No other acute findings in the abdomen or pelvis. 3. Splenomegaly. 4. Distended urinary bladder. Please note that all CT scans at this facility use dose modulation, iterative reconstruction, and/or weight-based dosing when appropriate to reduce radiation dose to as low as reasonably achievable. Dictated by Peyton Turcios MD @ 02/13/2022 12:04:25 PM (Electronically Signed)
[2022-02-13] MEDS: ONDANSETRON 2 MG/ML inj 4 MG IVP ×2 (10:06→18:11)
--- NOTE | 2022-02-13 13:48 | PC.NURSE ---
Shift Summary: Patient pleasant and cooperative. Independent in room. Pain between 3-6/10 during shift. Pain managed with PRN medication and rest. Had nausea x1 following Morphine, relieved with PRN medication. Has not required ativan yet today. Vitals stable and WNL.
--- NOTE | 2022-02-13 13:55 | PM.IMPN1 ---
Progress Note: A&P Assessment and plan (1) Pancreatitis: Status: Acute Assessment and Plan: lipase has normalized. continues to have abdominal pain; will order CT AP; continue pain control; having minimal oral intake d/t nausea and vomiting+abdominal pain (2) Sphincter of Oddi spasm: Status: Acute Assessment and Plan: Continue home medications. will need outpatient Gi follow up (3) Mast cell activation syndrome: Status: Chronic Assessment and Plan: Continue home medications. (4) Ileus: Problem details: due to pancreatitis; ?diagnosis will obtain CT AP Status: Acute Assessment and Plan: Complains of nausea, decreased bowel sounds. Add reglan prn. Start clears. Plan VTE prophylaxis with TEDs and ambulation. Subjective Date Seen: 02/13/22 Interval history: patient complains of worsening abdominal pain Endorses dry heaving but no vomiting Denies chest pain Denies SOB Exam Narrative: Exam Narrative: Gen: appears uncomfortable HEENT: NCAT EOMI MMM CV: RRR normal s1 s2 LUngs: CTAB Abdomen: epigastric tenderness no rebound or guarding Neuro: alert, oriented non focal screening exam Const: Vital Signs, click to edit/add: Vital Signs - 24 hr 02/12/22 16:00 02/12/22 19:00 02/13/22 00:00 Temperature 98.7 F 98.5 F 98.6 F Pulse Rate [Left R adial] 80 84 80 Respiratory Rate 20 18 18 Blood Pressure [Ri ght Arm] 115/77 115/77 128/79 Pulse Oximetry 96 97 94 02/13/22 04:00 02/13/22 09:04 02/13/22 11:11 Temperature 98.6 F 98.1 F 98.4 F Pulse Rate [Left R adial] 80 80 88 Respiratory Rate 20 14 16 Blood Pressure [Ri ght Arm] 125/86 103/68 118/76 Pulse Oximetry 94 93 94 Labs Labs: Laboratory Results - last 24 hr 02/13/22 07:05 Sodium 135 Potassium 4.1 Chloride 104 Carbon Dioxide 27 BUN 9 Creatinine 1.0 Estimated Creat Clear 68.61 Estimated GFR 72 Glucose 93 Calcium 8.6
--- NOTE | 2022-02-13 18:52 | PC.NURSE ---
shift [id number] pt this shift remained in bed, walked x1 about 200ft. Pain increased around 1800, morphine and zofran given per eMAR
[2022-02-13] MEDS: DULOXETINE 30 MG CAPSULE DR 60 MG PO (20:30)
[2022-02-13] MEDS: ATORVASTATIN 10 MG TABLET 20 MG PO (20:30)
[2022-02-13] MEDS: LORazepam 0.5 MG TABLET PO (23:19)
[2022-02-14] VITALS (7 sets, daily range): BP systolic 96–124; BP diastolic 62–77; PULSE 74–82; RESP 16–18; TEMP 36.2–36.7; O2SAT 91–98
[2022-02-14] MEDS: HYDROmorphone 0.5 mg/0.5 ml inj 1 MG IVP ×6 (01:00→14:16)
[2022-02-14] MEDS: ONDANSETRON 2 MG/ML inj 4 MG IVP ×2 (01:06→08:03)
[2022-02-14] MEDS: MORPHINE 4 MG/ML INJ IVP (01:32)
[2022-02-14] MEDS: MELATONIN 3 MG TABLET PO (01:37)
[2022-02-14] MEDS: LORazepam 2 MG/ML inj 1 MG IVP ×2 (01:55→05:29)
[2022-02-14] MEDS: LACTATED RINGERS 1000 ML 1,000 ML 150 ML IV ×2 (02:31→08:16)
--- NOTE | 2022-02-14 06:09 | PC.NURSE ---
pt very pleasant and cooperative. Calls appropriately. Indep in room. Clear liquid diet. Walked halls x 1. Pt c/o abd pain, see emar. Aqua K pack to abd.?C/o nausea, see emar. Glenny gama, Queasy patch, and cool cloth on forehead to ease nausea. Abd tender. Bowel sounds active. 2x?sm loose stool. Soft pressures, 100/66, 96/62.
[2022-02-14 07:44] LABS: Basophils Absolute Auto 0.05 K/uL (0.00-0.30); Eosinophils Absolute Auto 0.09 K/uL (0.00-0.50); Eosinophils Percent Auto 1.7 % (0.0-7.0); Hematocrit 33.7 % (33.0-51.0); Hemoglobin* 11.8 gm/dL (12.0-16.0); Lymphocytes Percent Auto 30.8 % (20-44); Mean Corpuscular HGB Conc 35 gm/dL (32-36); Mean Corpuscular Hemoglobin 29 pg (26-34); Mean Corpuscular Volume 82 fL (80-100); Monocytes Percent Auto 9.8 % (0.0-11.0); Neutrophils Absolute Auto 2.94 K/uL (1.7-7.0); Neutrophils Percent Auto 56.7 % (42.0-72.0); Platelet Count* 280 K/uL (140-440); RDW Coefficient of Variation % 11.7 % (11.5-15.5); White Blood Count* 5.19 K/uL (4.50-11.00)
[2022-02-14 07:55] LABS: Slide Review Reflex No
[2022-02-14 07:59] LABS: Albumin* 3.7 g/dL (3.3-5.0); Chloride* 104 mmol/L (96-114)
[2022-02-14 08:00] LABS: Potassium* 3.9 mmol/L (3.6-5.1); Sodium* 136 mmol/L (135-149)
[2022-02-14 08:02] LABS: Aspartate Amino Transferase* 23 U/L (12-35); Bilirubin Total* 0.8 mg/dL (0.1-1.5); Carbon Dioxide* 30 mmol/L (20-32); Est. Creatinine Clearance* 68.61; Estimated Glomerular Filt Rate 72 ml/min; Total Protein* 6.4 g/dL (6.0-8.3)
[2022-02-14 08:03] LABS: Alanine Aminotransferase* 22 U/L (4-35); Alkaline Phosphatase* 47 U/L (40-150); Blood Urea Nitrogen* 8 mg/dL (5-24); Calcium* 8.7 mg/dL (8.4-10.6); Glucose* 102 mg/dL (60-115)
[2022-02-14] MEDS: SODIUM CHLORIDE 0.9 % (FLUSH) 10 ML SYRINGE 5 ML IVF (08:03)
[2022-02-14] MEDS: FEXOFENADINE 180 MG TABLET PO ×2 (08:15→20:40)
[2022-02-14] MEDS: KETOROLAC 30 MG/ML inj IVP ×3 (11:03→23:08)
[2022-02-14] MEDS: PANTOPRAZOLE SODIUM 40 MG INJ IVP (11:06)
[2022-02-14] MEDS: METOCLOPRAMIDE HCL 5 MG/ML INJ 10 MG IVP ×3 (11:14→23:08)
[2022-02-14] MEDS: 5 % DEXTROSE IN LAC RINGER'S 1,000 ML 125 ML IV ×2 (11:14→18:34)
[2022-02-14 11:35] LABS: Amylase* 83 U/L (18-89)
[2022-02-14 11:36] LABS: Gamma Glutamyl Transpeptidase* 21 U/L (8-55); Lipase* 215 U/L (23-300)
[2022-02-14 11:43] LABS: C Reactive Protein* < 0.5 mg/dL (0.5-1.0)
[2022-02-14 11:49] LABS: C Reactive Protein* < 0.5 mg/dL (0.5-1.0)
--- NOTE | 2022-02-14 14:40 | PC.NURSE ---
Pt pain continues to increase about every 4hr, given Toradol with relief until 1400 she was given diluadid. Pt bladder scanned when she was having difficulty voiding ~400cc and she has voided 400cc this shift after the scan. Last bladder scanned at 1410 and noted 200-250cc. She walked in the halls x3, seems alert this afternoon and when resting she is on 1l O2.
--- NOTE | 2022-02-14 17:26 | PM.IMPN1 ---
Progress Note: A&P Assessment and plan (1) Sphincter of Oddi dysfunction: Problem details: follows with Temo Tinajero at [facility] - has been referred to José Faustin. Last sphincterotomy was in 2016. Status: Acute Assessment and Plan: The narcotics are not really covering the pain in the causing we too much sedation. (2) Sphincter of Oddi spasm: Problem details: adjusting meds as above. work toward normal diet and outpatient work up with GI subspeciality. Status: Acute Subjective Date Seen: 02/14/22 Interval history: Daily Progress Note - Hospital Medicine Day #: 4 CC: Continued pain, groggy sensorium, poor p.o. intake OVERNIGHT UPDATES FROM STAFF & MED, LAB, IMAGING UPDATES 120/77. Pulse 82.. Room air. Afebrile. Up walking better. Still struggling with p.o. intake CBC unremarkable Lipase, CRP, complete metabolic panel unremarkable Yesterday's abdominal pelvic CT reviewed. IMPRESSION: 1. Multiple fluid-filled loops of mid and distal small bowel are nonspecific but could be due to enteritis. 2. No other acute findings in the abdomen or pelvis. 3. Splenomegaly. 4. Distended urinary bladder. med review: P.r.n. Tylenol DC iv Benadryl - too sedating. IV hydromorphone held, oral oxy ordered DC IV lorazepam, continuing oral lorazepam DC IV morphine Trial of IV pantoprazole Oral metoclopramide Oral Cymbalta with labs and imaging essentially normal it seems that this would be a functional abdominal chronic relapsing issue. but I feel she is over medicated for the problem. with the loose stools and enteritis concern on CT - I will get stool culture and viral pcp. no flagyl or cipro today. will follow. Review of Systems: See subjective Cardiac: No new chest pain/pressure/palpitations. Respiratory: no new dyspnea. GI: Upper abdominal pain with radiation to the left shoulder Objective: Vitals: see above Lungs: Clear. Cardiac: S1S2. Abdominal exam. Benign. Soft. Reports tenderness to deep palpation around the mid epigastric. Reports some referral pain to the left shoulder Disposition/Potential discharge - Likely to return to previous living situation. Total time is 25 minutes with greater than 50% spent in counseling and coordination of care. Exam Const: Vital Signs, click to edit/add: Vital Signs - 24 hr 02/13/22 19:00 02/13/22 23:00 02/14/22 02:45 Temperature 97.8 F 97.8 F 97.7 F Pulse Rate [Left R adial] 79 77 77 Respiratory Rate 16 16 16 Blood Pressure [Ri ght Arm] 119/80 100/66 96/62 Pulse Oximetry 95 93 92 02/14/22 10:18 02/14/22 10:20 02/14/22 11:21 Temperature 97.9 F 97.2 F L Pulse Rate [Left R adial] 80 80 81 Respiratory Rate 18 18 16 Blood Pressure [Ri ght Arm] 105/69 104/73 Pulse Oximetry 91 93 02/14/22 15:00 Temperature 97.8 F Pulse Rate [Left R adial] 82 Respiratory Rate 16 Blood Pressure [Ri ght Arm] 120/77 Pulse Oximetry 98 Labs Labs: Laboratory Results - last 24 hr 02/11/22 02/14/22 02/14/22 01:05 06:35 06:35 WBC 5.19 RBC 4.10 Hgb 11.8 L Hct 33.7 MCV 82 MCH 29 MCHC 35 RDW Coeff of Declan 11.7 Plt Count 280 Neut % (Auto) 56.7 Lymph % (Auto) 30.8 [place] % (Auto) 9.8 Eos % (Auto) 1.7 Baso % (Auto) 1.0 Neut # (Auto) 2.94 Lymph # (Auto) 1.60 [place] # (Auto) 0.50 Eos # (Auto) 0.09 Baso # (Auto) 0.05 Abs Immat Gran (auto) 0.00 Sodium 136 Potassium 3.9 Chloride 104 Carbon Dioxide 30 BUN 8 Creatinine 1.0 Estimated Creat Clear 68.61 Estimated GFR 72 Glucose 102 Calcium 8.7 Total Bilirubin 0.8 GGT 21 AST 23 ALT 22 Alkaline Phosphatase 47 C-Reactive Protein < 0.5 L < 0.5 L Total Protein 6.4 Albumin 3.7 Amylase 83 Lipase 215
[2022-02-14] MEDS: DULOXETINE 30 MG CAPSULE DR 60 MG PO (20:39)
[2022-02-14] MEDS: ATORVASTATIN 10 MG TABLET 20 MG PO (20:39)
[2022-02-14] MEDS: OXYCODONE 5 MG TABLET PO (20:40)
[2022-02-15 02:05] VITALS: TEMP 36.6
[2022-02-15] MEDS: 5 % DEXTROSE IN LAC RINGER'S 1,000 ML 125 ML IV (02:06)
[2022-02-15] MEDS: ACETAMINOPHEN 325 MG TABLET PO (02:26)
[2022-02-15 02:49] VITALS: BP 125/75; PULSE 86; RESP 16; TEMP 36.8; O2SAT 93
[2022-02-15 05:24] VITALS: TEMP 36.8
[2022-02-15] MEDS: METOCLOPRAMIDE HCL 5 MG/ML INJ 10 MG IVP ×2 (05:24→11:21)
[2022-02-15] MEDS: KETOROLAC 30 MG/ML inj IVP ×2 (05:24→11:21)
--- NOTE | 2022-02-15 06:25 | PC.NURSE ---
-: pt pleasant and cooperative. Indep in room. c/o pain 4-6/10 in abd, 5mg oxy given x 1 & 975mg Tylenol given x1. c/o slight nausea, declined need for Zofran, opted for Q-easy patch. No BM. VSS and WNL.
[2022-02-15 07:00] VITALS: BP 130/81; PULSE 84; RESP 18; TEMP 36.8; O2SAT 97
[2022-02-15 07:22] LABS: Hematocrit 34.1 % (33.0-51.0); Hemoglobin* 11.8 gm/dL (12.0-16.0); Lactate* 0.9 mmol/L (0.5-1.9); Mean Corpuscular HGB Conc 35 gm/dL (32-36); Mean Corpuscular Hemoglobin 28 pg (26-34); Mean Corpuscular Volume 82 fL (80-100); Platelet Count* 293 K/uL (140-440); Red Blood Count 4.17 m/uL (4.00-5.20); White Blood Count* 7.38 K/uL (4.50-11.00)
[2022-02-15 07:56] LABS: Slide Review Reflex No
[2022-02-15 07:58] LABS: Albumin* 3.3 g/dL (3.3-5.0); Chloride* 105 mmol/L (96-114)
[2022-02-15 07:59] LABS: Potassium* 3.8 mmol/L (3.6-5.1); Sodium* 135 mmol/L (135-149)
[2022-02-15 08:01] LABS: Alkaline Phosphatase* 43 U/L (40-150); Aspartate Amino Transferase* 22 U/L (12-35); Bilirubin Total* 0.6 mg/dL (0.1-1.5); Carbon Dioxide* 27 mmol/L (20-32); Est. Creatinine Clearance* 68.61; Estimated Glomerular Filt Rate 72 ml/min; Total Protein* 5.9 g/dL (6.0-8.3)
[2022-02-15 08:02] LABS: Alanine Aminotransferase* 22 U/L (4-35); Blood Urea Nitrogen* 8 mg/dL (5-24); Calcium* 8.5 mg/dL (8.4-10.6); Gamma Glutamyl Transpeptidase* 21 U/L (8-55); Glucose* 109 mg/dL (60-115); Lipase* 169 U/L (23-300); Magnesium* 1.5 mg/dL (1.5-2.6)
[2022-02-15 08:11] LABS: C Reactive Protein* < 0.5 mg/dL (0.5-1.0)
[2022-02-15] MEDS: FEXOFENADINE 180 MG TABLET PO (09:20)
[2022-02-15 11:00] VITALS: BP 143/73; PULSE 83; RESP 22; TEMP 36.8; O2SAT 97
[2022-02-15] MEDS: SODIUM CHLORIDE 0.9 % (FLUSH) 10 ML SYRINGE 5 ML IVF (11:21)
--- NOTE | 2022-02-15 14:02 | PM.DS1 ---
DS: Providers Provider Date Seen: 02/15/22 Date of admission: 02/11/22 02:18 Primary care physician: Jacinta Mendes MD Admitting Clinician: Pita Springer MD Attending Physician on discharge: Anca Jessica MD Date of Discharge: 02/15/22 DS: Diagnosis Discharge Diagnosis (1) Sphincter of Oddi dysfunction: Status: Acute Problem details: follows with Temo Tinajero at [facility] - has been referred to José Faustin. Last sphincterotomy was in 2016. opioids are not effective for this and seem to make her unusually groggy. 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 It took three days to get transitioned off IV narcotics and IV fluids to a PO diet. She had significant sedation with her medications. she often fell asleep while I was talking to her. Her imaging and labs were are normal with no inflammation or liver enzyme elevation. normal lipase was also noted. We did not correlate the enteritis findings clinically and stool studies were unremarkable. We felt she needs the subspeciality GI appt and possible repeat sphincterotomy. Status at Discharge Functional status at discharge: independent ambulation Overall status at discharge: patient is progressing back to baseline Time Spent with Patient Time attestation: Total time spent providing and/or coordinating discharge services: Time spent: Greater than 30 minutes Exam Const: Documenting provider has reviewed patient's vital signs: yes Common normals: no apparent distress, oriented x3, alert and well nourished General appearance: well kempt Orientation/consciousness: Yes awake, Yes oriented to person and Yes oriented to place HENMT: Common normals: normocephalic Head and scalp: normocephalic Face and sinus: normal facial exam Chest: Chest: symmetrical chest wall rise Resp: Common normals: normal respiratory effort, no retractions, no use of accessory muscles and clear to auscultation bilaterally Auscultation: clear to auscultation bilaterally Cardio: Common normals: regular rate, regular rhythm, S1 normal heart sound and S2 normal heart sound Rate: regular rate Rhythm: regular rhythm Heart sounds: S1 normal and S2 normal GI: Common normals: Normal to inspection, nondistended, normoactive bowel sounds present and soft to palpation Palpation: soft Neuro: Common normals: oriented x3, CN's II-XII intact bilaterally, moves all extremities, no focal motor deficits and no sensory deficits noted Sensorium/orientation: awake, alert, oriented to person and oriented to place Speech: speech normal Psych: Common normals: mental status grossly normal, thought process normal, cooperative, affect normal, speech normal and activity/motor behavior normal Appearance: grossly normal and well kempt Speech: normal speech Thought process: normal thought process Discharge Plan Discharge Disposition: Home, Self-Care Date of Admission: 02/11/22 02:18 Attending Provider on Discharge: Beba Jessica Primary Care Provider: Jacinta Mendes Condition: Improved Anticipated Discharge Date/Time: 02/15/22 12:46 Discharge Medications: New metoclopramide HCl [Reglan] 10 mg tablet 10 mg PO Q6H PRN (Reason: nausea and vomiting) Qty: 30 0RF ketorolac 10 mg tablet 10 mg PO TID 5 Days Qty: 15 0RF Continued fluticasone propion-salmeterol 250-50 mcg/dose blister with device 1 inh INHALATION Q12H atorvastatin 20 mg tablet 20 mg PO HS fexofenadine 180 mg tablet 180 mg PO BID lorazepam 0.5 mg tablet 0.5 - 1 mg PO Q8H PRN (Reason: sphincter spasm) hydroxyzine HCl 25 mg tablet 25 - 50 mg PO HS PRN albuterol sulfate 90 mcg/actuation HFA aerosol inhaler 2 puff INHALATION QID PRN (Reason: shortness of breath or wheezing) hydromorphone 4 mg tablet 2 - 4 mg PO Q6H PRN ondansetron 4 mg tablet,disintegrating 4 mg PO Q6H PRN duloxetine 30 mg capsule,delayed release(DR/EC) 60 mg PO HS prednisone 20 mg tablet 100 mg PO ONCE PRN Label Comments: EMERGENCY SET: IF SEVERE ALLERGIC REACTION, IMMEDIATELY TAKE 100MG PREDNISONE (5 TABLETS) AND 2 TABLETS OF CETIRIZINE 10MG BY MOUTH, AND WRI cetirizine [Zyrtec] 10 mg tablet 20 mg PO ONCE PRN Label Comments: FOR EMERGENCY, SEVERE ALLERGIC REACTION fluocinonide 0.05 % cream 1 applic topical DAILY PRN Discharge Orders: Discharge Order (Routine); Ordered 02/15/22 Ordered By: Beba Jessica Patient Education: Metoclopramide (By mouth), Ketorolac (By mouth), Sphincterotomy (PRE) Activity Restrictions/Additional Instructions: I would avoid oral opioid doses. I would like for you to try the combination of Reglan and Toradol this weekend. Order all needs to be limited to 5 days but if effective, Reglan and ibuprofen may work well together. Please make an appointment group sales representative and/or group sales representative subspecialist as previously discussed Activity Level: No Restrictions Discharge Diet: Regular Follow Up Appointments: Jacinta Mendes MD [Primary Care Provider] - (Follow up as needed) Forms: [facility] Info Instructions
--- NOTE | 2022-02-15 14:22 | PC.NURSE ---
Discharge: Patient pleasant and cooperative. Patient vitally stable, lungs clear, BS WNL, IV removed, catheter intact. Patient independent in room. Patient rated pain at most 3/10, only scheduled toradol given, patient declined tylenol. Patient tolerating full liquid diet for breakfast only eating 50% of meal, urinating, and had one moderate loose stool. Patient left the floor by wheelchair at 1418. Patient signed belongings sheet and discharge form. Patient had no further questions regarding discharge. Patient's meds returned to her and patient took her belongings along with her.
== END 2022-02-15 14:18 | disposition home or self-care (01) ==
LOC: ED 02:08 → MEDSURG 02:19
PROVIDERS: Family Medicine; Hospitalist; Admitting Provider Family Medicine; Emergency Provider Family Medicine; PCP Family Medicine; Visit Provider Family Medicine
DX: K83.4 Spasm of sphincter of Oddi (principal); K85.90 Acute pancreatitis without necrosis or infection, unspecified; D89.40 Mast cell activation, unspecified; R10.13 Epigastric pain; R10.12 Left upper quadrant pain; R74.8 Abnormal levels of other serum enzymes; F17.200 Nicotine dependence, unspecified, uncomplicated; M25.512 Pain in left shoulder; R11.0 Nausea; K56.7 Ileus, unspecified; Z90.49 Acquired absence of other specified parts of digestive tract; R19.7 Diarrhea, unspecified; M54.9 Dorsalgia, unspecified
CPT/HCPCS: 36415; 51798; 74177; 80048; 80053; 80076; 81001; 82150; 82977; 83605; 83690; 83735; 84703; 85025; 85027; 85651; 86140; 87045; 87046; 87086; 87158; 87426; 87427; 96361; 96374; 96375; 96376; 99284; A9270; C9113; G0378; G0379; J1170; J1885; J2060; J2270; J2405; J2765; J7030; J7120; Q9967

== ENCOUNTER 2023-04-05 18:52 | Inpatient (IN) | payer OTHER, SELFPAY ==
[2023-04-05 18:57] VITALS: BP 161/84; PULSE 88; RESP 18; TEMP 36.8; O2SAT 97; BMI 33.1
--- NOTE | 2023-04-05 19:12 | ED_ITS ---
HPI - Abdominal Pain General Chief Complaint: Abdominal Pain Stated Complaint: Abdominal pain Time Seen by Provider: 04/05/23 19:04 History of Present Illness HPI narrative: This 42-year-old female has history of chronic pancreatitis and occasions of sphincter of OD dysfunction. She states that she has some chronic smoldering low level pain in her abdomen but this became markedly worse last evening. She does take Dilaudid pills as needed when flare-ups like this occur and has done so at home without much relief. She reports some nausea but has not had any fevers. 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 Related Data Home Medications Medication Instructions Recorded Confirmed albuterol sulfate 90 mcg/actuation 2 puff inhalation QID PRN 02/11/22 02/11/22 aerosol inhaler shortness of breath or wheezing atorvastatin 20 mg tablet 20 mg PO HS 02/11/22 02/11/22 cetirizine 10 mg tablet (Zyrtec) 20 mg PO ONCE PRN 02/11/22 02/11/22 duloxetine 30 mg capsule,delayed 60 mg PO HS 02/11/22 02/11/22 release fexofenadine 180 mg tablet 180 mg PO BID 02/11/22 02/11/22 fluocinonide 0.05 % topical cream 1 applic topical DAILY PRN 02/11/22 02/11/22 fluticasone 250 mcg-salmeterol 50 1 inh inhalation Q12H 02/11/22 02/11/22 mcg/dose blistr powdr for inhalation hydromorphone 4 mg tablet 2 - 4 mg PO Q6H PRN 02/11/22 02/11/22 hydroxyzine HCl 25 mg tablet 25 - 50 mg PO HS PRN 02/11/22 02/11/22 lorazepam 0.5 mg tablet 0.5 - 1 mg PO Q8H PRN sphincter 02/11/22 02/11/22 spasm ondansetron 4 mg disintegrating 4 mg PO Q6H PRN 02/11/22 02/11/22 tablet prednisone 20 mg tablet 100 mg PO ONCE PRN 02/11/22 02/11/22 Previous Rx's Medication Instructions Recorded ketorolac 10 mg tablet 10 mg PO TID 5 days #15 tabs 02/15/22 metoclopramide HCl 10 mg tablet 10 mg PO Q6H PRN nausea and 02/15/22 (Reglan) vomiting #30 tabs Allergies Allergy/AdvReac Type Severity Reaction Status Date / Time polyethylene glycol Allergy Anaphylaxis Verified 02/11/22 17:49 fentanyl AdvReac pain Verified 02/11/22 17:49 Review of Systems Status of ROS Reports: 10 or more systems reviewed and unremarkable except as noted in History and below Narrative Constitutional: No fevers, no weight gain or loss. Eyes: No discharge. No vision changes. HENT: No congestion, no sore throat, no ear pain. Cardiovascular: No chest pain, no palpitations. Respiratory: No shortness of breath, no wheezes, no cough. Gastrointestinal: Abdominal pain and vomiting. Genitourinary: No dysuria, no hematuria. Musculoskeletal: Normal range of motion. Skin: No rashes, no pruritis. Neurological: No dizziness, weakness, sensory change, speech change. Endo/Heme/Allergies: No bruising or bleeding. No polydipsia. Pysch: no suicidality, no anxiety, no insomnia. All other systems reviewed and are negative. [facility] Medical History (Updated 04/05/23 @ 20:43 by Kaleb Cano MD) 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 - Mast cell activation, unspecified (ICD-10) Sphincter of Oddi spasm ?K83.4 - Spasm of sphincter of Oddi (ICD-10) Sphincter of Oddi dysfunction (Unknown) ?K83.4 - Spasm of sphincter of Oddi (ICD-10) Surgical History (Updated 02/11/22 @ 08:26 by Pita Springer MD) History of tonsillectomy and adenoidectomy ?Z90.89 - Acquired absence of other organs (ICD-10) Hx of appendectomy ?Z90.49 - Acquired absence of other specified parts of digestive tract (ICD- 10) Hx laparoscopic cholecystectomy ?Z90.49 - Acquired absence of other specified parts of digestive tract (ICD- 10) History of sphincterotomy of sphincter of Oddi ?Z98.890 - Other specified postprocedural states (ICD-10) Family History (Updated 02/11/22 @ 08:29 by Pita Springer MD) Sister Danika's disease Sister Raynaud phenomenon Mother Rheumatoid arthritis Erythema multiforme Social History (Updated 02/11/22 @ 08:29 by Pita Springer MD) Narrative: FULL CODE; 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 HEENT: Normocephalic, atraumatic. Neck: Normal range of motion. Nontender. Supple. Heart: Regular. No murmurs. Normal rate. Intact distal pulses. Lungs: Clear to auscultation. No chest discomfort. No wheezes, rhonchi, or rales. Abdomen: Normal bowel sounds. Tenderness in the upper epigastric region. No rebound tenderness. Genitalia: Deferred. Back: No midline tenderness. Normal range of motion. Extremities: Normal range of motion. No injury. Skin: Intact. No rash. Warm. No erythema or pallor. Neurologic: No altered sensation. No weakness. Alert and oriented. Psychiatric: No suicidality. No anxiety or depression. No insomnia. Nursing notes and vitals signs are reviewed. Const: Vital Signs, click to edit/add: Vital Signs - 24 hr 04/05/23 18:57 Temperature 98.2 F Pulse Rate [Right Pulse Oximeter] 88 Respiratory Rate 18 Blood Pressure [Ri ght Upper Arm] 161/84 H Pulse Oximetry 97 Oxygen Delivery Me thod Room Air Course Vital Signs Vital signs: Initial Vital Signs Temperature 98.2 F 04/05/23 18:57 Temperature Source Temporal Artery Scan 04/05/23 18:57 Pulse Rate 88 04/05/23 18:57 Respiratory Rate 18 04/05/23 18:57 Blood Pressure 161/84 H 04/05/23 18:57 Blood Pressure Mean 109 H 04/05/23 18:57 Blood Pressure Position Sitting 04/05/23 18:57 Pulse Oximetry 97 04/05/23 18:57 Oxygen Delivery Method Room Air 04/05/23 18:57 Vital Signs Temperature 98.2 F 04/05/23 18:57 Pulse Rate 88 04/05/23 18:57 Respiratory Rate 18 04/05/23 18:57 Blood Pressure 161/84 H 04/05/23 18:57 Pulse Oximetry 97 04/05/23 18:57 Oxygen Delivery Method Room Air 04/05/23 18:57 Temperature 98.2 F 04/05/23 18:57 Pulse Rate 88 04/05/23 18:57 Respiratory Rate 18 04/05/23 18:57 Blood Pressure 161/84 H 04/05/23 18:57 Pulse Oximetry 97 04/05/23 18:57 Oxygen Delivery Method Room Air 04/05/23 18:57 MDM - Abdominal Pain MDM Narrative Medical decision making narrative: This patient has history of chronic pancreatitis and has had several dilations of the sphincter of Jung. She comes in with severe abdominal pain and had taken to oral tablets of Dilaudid earlier today without much relief. An IV was established here where she received Dilaudid 0.5 mg and Toradol 30 mg along with Zofran 4 mg. This did not bring much relief to her pain. Lab results returned with elevated lipases to 436. Other lab results are reassuring. The patient then received 4 mg of morphine and 0.5 mg of Ativan intravenously. I spoke with the hospitalist christmas tree contractor, Dr. Jackson, who agrees to bring her into the hospital for pain management. Lab Data Labs: Lab Results 04/05/23 Range/Units 19:25 WBC 8.04 (4.50-11.00) K/uL RBC 4.80 (4.00-5.20) m/uL Hgb 13.7 (12.0-16.0) gm/dL Hct 40.1 (33.0-51.0) % MCV 84 (80-100) fL MCH 29 (26-34) pg MCHC 34 (32-36) gm/dL RDW Coeff of Declan 12.4 (11.5-15.5) % Plt Count 382 (140-440) K/uL Neut % (Auto) 64.4 (42.0-72.0) % Lymph % (Auto) 24.9 (20-44) % [place] % (Auto) 7.2 (0.0-11.0) % Eos % (Auto) 2.2 (0.0-7.0) % Baso % (Auto) 0.7 (0.0-3.0) % Neut # (Auto) 5.17 (1.7-7.0) K/uL Lymph # (Auto) 2.00 (0.90-2.90) K/uL [place] # (Auto) 0.60 (0.00-0.90) K/UL Eos # (Auto) 0.18 (0.00-0.50) K/uL Baso # (Auto) 0.06 (0.00-0.30) K/uL Abs Immat Gran (auto) 0.05 (0.00-0.30) K/uL Imm/Tot Granulo (auto) 0.6 % Sodium 138 (135-149) mmol/L Potassium 4.0 (3.6-5.1) mmol/L Chloride 105 (96-114) mmol/L Carbon Dioxide 22 (20-32) mmol/L Anion Gap 11 (7-15) mEq/L BUN 14 (5-24) mg/dL Creatinine 1.0 (0.5-1.5) mg/dL Estimated Creat Clear 67.91 Estimated GFR 72 ml/min Glucose 117 H (60-115) mg/dL Calcium 10.0 (8.4-10.6) mg/dL Lipase 436 H (23-300) U/L Discharge Plan Discharge Clinical Impression: Pancreatitis Patient Disposition: Admitted As Inpatient Condition: Unchanged Prescriptions: No Action fluticasone propion-salmeterol 250-50 mcg/dose blister with device 1 inh INHALATION Q12H atorvastatin 20 mg tablet 20 mg PO HS fexofenadine 180 mg tablet 180 mg PO BID lorazepam 0.5 mg tablet 0.5 - 1 mg PO Q8H PRN (Reason: sphincter spasm) hydroxyzine HCl 25 mg tablet 25 - 50 mg PO HS PRN albuterol sulfate 90 mcg/actuation HFA aerosol inhaler 2 puff INHALATION QID PRN (Reason: shortness of breath or wheezing) hydromorphone 4 mg tablet 2 - 4 mg PO Q6H PRN ondansetron 4 mg tablet,disintegrating 4 mg PO Q6H PRN duloxetine 30 mg capsule,delayed release(DR/EC) 60 mg PO HS prednisone 20 mg tablet 100 mg PO ONCE PRN Patient Comments: EMERGENCY SET: IF SEVERE ALLERGIC REACTION, IMMEDIATELY TAKE 100MG PREDNISONE (5 TABLETS) AND 2 TABLETS OF CETIRIZINE 10MG BY MOUTH, AND WRI cetirizine [Zyrtec] 10 mg tablet 20 mg PO ONCE PRN Patient Comments: FOR EMERGENCY, SEVERE ALLERGIC REACTION fluocinonide 0.05 % cream 1 applic topical DAILY PRN metoclopramide HCl [Reglan] 10 mg tablet 10 mg PO Q6H PRN (Reason: nausea and vomiting) Qty: 30 0RF ketorolac 10 mg tablet 10 mg PO TID 5 Days Qty: 15 0RF Follow Up/Referrals: Jacinta Mendes MD [Primary Care Provider] -
[2023-04-05] MEDS: KETOROLAC 30 MG/ML inj IVP (19:23)
[2023-04-05] MEDS: ONDANSETRON 2 MG/ML inj 4 MG IVP (19:24)
[2023-04-05] MEDS: HYDROmorphone 0.5 mg/0.5 ml inj IVP ×2 (19:24→22:15)
[2023-04-05 19:33] LABS: Basophils Absolute Auto 0.06 K/uL (0.00-0.30); Basophils Percent Auto 0.7 % (0.0-3.0); Eosinophils Absolute Auto 0.18 K/uL (0.00-0.50); Eosinophils Percent Auto 2.2 % (0.0-7.0); Hematocrit 40.1 % (33.0-51.0); Hemoglobin* 13.7 gm/dL (12.0-16.0); Immature Granulocytes Abs Auto 0.05 K/uL (0.00-0.30); Immature Granulocytes Pct Auto 0.6 %; Lymphocytes Percent Auto 24.9 % (20-44); Mean Corpuscular HGB Conc 34 gm/dL (32-36); Mean Corpuscular Hemoglobin 29 pg (26-34); Mean Corpuscular Volume 84 fL (80-100); Monocytes Percent Auto 7.2 % (0.0-11.0); Neutrophils Absolute Auto 5.17 K/uL (1.7-7.0); Neutrophils Percent Auto 64.4 % (42.0-72.0); Platelet Count* 382 K/uL (140-440); RDW Coefficient of Variation % 12.4 % (11.5-15.5); White Blood Count* 8.04 K/uL (4.50-11.00)
--- OUTSIDE RECORDS SUMMARY | 2023-04-05 19:36 | XMS_ITS | Continuity of Care Document ---
Author Name Unknown Organization [facility] Address [address] [address] [place] [address] Phone Care Team Providers Care Manager [employer] Name Role Phone Unavailable Unavailable Unavailable Allergies, Adverse Reactions, Alerts Substance Reaction Status Criticality fentanyl Severe abdominal pain Active No Inf ormation codeine Nausea Active No Information INFLUENZA VIRUS VACCINE TV S PLT 2010- (18 YR +) Anaphalaxis Active No Information CEPHALEXIN MONOHYDRATE Diff. breathing / Rash Active No Information Sulfa (Sulfonamide Antibiotics) Rash Active No Information Medications Medication Instructions Dosage Effective Dates (start - stop) Status Comments TriNessa (28) 0.18 mg(7)/0.215 mg(7)/0.25 mg(7)-35 mcg tablet take 1 tablet by oral route every day - Active Prilosec 20 mg capsule,delayed release take 1 capsule by oral route every day before a meal - Active Zantac 75 mg tablet take 1 tablet by ora l route every day with a glass of water - Active Dilaudid 4 mg tablet take 1 - 2 Tablet b y oral route once as needed 4 MG - Active EpiPen 0.3 mg/0.3 mL (1:1,000) injection,auto-injec tor inject 0.3 milliliter by intramuscular route once as needed for anaphylaxis 0.3 MG - Active Benadryl 25 mg capsule take 2 capsule by ORAL route every day as needed 50 MG - Active Senna-S 8.6 mg-50 mg tablet take 1 Tablet by ORAL route every day as needed 1 Tablet - Active Ventolin HFA 90 mcg/actuation Aerosol Inhaler inhale 2 puff by inhalation route every 4 - 6 hours as needed - Active Bisac-Evac 10 mg Rectal Suppository insert 1 suppository (10MG) by rectal route every day for no BM x3 10 MG - Active Ativan 0.5 mg tablet take 1 tablet (0.5M G) by ORAL route 1 - 2 times every day as needed 0.5 MG - Active Multiple Vitamins Daily tablet take 1 tablet by oral route every day with food - Active Aleve 220 mg tablet take 1 Tablet by Ora l route every 8 - 12 hours PRN 1 Tablet - Active Vitamin D3 1,000 unit tablet take 1 Tablet by Oral route every day 1 Tablet - Active Miralax 17 gram/dose Oral Powder take 15 milliliter (17G) by ORAL route every day powder mixed with 8 oz. water, juice, soda, coffee, or tea 17 G - Active Zofran 4 mg Tab take 1 - 2 tablet (4MG) by oral route every 4 hours as needed 4 MG - Active Procedures Procedure Date Offic/outpt E&m Estab Low-mod 6 Ercp; W/press Measur-sphincter 16 ERCP w/stent & sphinc Offic/outpt E&m Estab Mod-hi 2 16 Offic/outpt E&m Estab Minor Subsqt Hosp-da E&m Minr Compl 4 Ugi Endo; W/endo Ultrasound Ex 14 Ercp; W/press Measur-sphincter 14 ERCP w/stent & sphinc Offic/outpt E&m Estab Mod-hi 2 14 Offic/outpt E&m Estab Low-mod 3 Offic/outpt E&m Estab Mod-hi 2 12 Routine Serum Collection [id number] Lipase Amylase Ercp; W/sphincterotomy/papillo 12 Ercp; W/sphincterotomy/papillo 12 Ercp; W/press Measur-sphincter Ercp; W/endo Retro Insrt Tube/ 12 Offic/outpt E&m Estab Mod-hi 2 12 [id number] Ugi Endo; W/endo Ultrasound Ex 12 Ugi Endo; W/bx 1/mx Advance Directives Directive Yes / No Effective Date File Name No Information Encounters Encounter Description Practice Location Reason(s) For Visit Diagnoses Date Provider Providers Copied on Encounter Offic/outpt E&m Estab Low-mod [facility], [address] [address], [place], [id number], [place] tel:[phone] [facility] GI Symptoms or Concerns (chief complaint) Sphincter of Oddi dysfunction 6 No Information [facility], [address] [address], [place], [id number], tel:[phone] [facility] Sphincter of Oddi dysfunction 6 No Information [facility], [address] [address], [place], [id number], [place] tel:[phone] [facility] No Information 6 No Information Offic/outpt E&m Estab Mod-hi 2 [facility] [address] [address], [place], [id number], [place] tel:[phone] [facility] GI Symptoms or Concerns (chief complaint) Abdominal pain, epigastricAcu te pancreatitis, unspecifiedDi etary counseling and surveillance 6 No Information Offic/outpt E&m Estab Minor [facility] [place], [address] [address], [place], [id number], [place] tel:[phone] [facility] GI Symptoms or Concerns (chief complaint) Spasm Sphincter Of Oddi 4 No Information Referring Provider: Referral Self. Subsqt Hosp-da E&m Minr Compl [facility], [address] [address], [place], [id number], [place] tel:[phone] [facility] No Information Mar-1 4 No Information Referring Provider: Michael Gonzalez, [address], [address]. tel:[phone] [facility], [address] [address], [place], [id number], [place] tel:[phone] [facility] Acute Pancreatitis Sep-0 9 4 No Information [facility], [address] [address], [place], [id number], [place] tel:[phone] [facility] No Information Mar-0 4 No Information [facility], [address] [address], [place], [id number], [place] tel:[phone] [facility] No Information Mar-0 4 No Information Referring Provider: Michael Gonzalez, [address], [address]. tel:[phone] Offic/outpt E&m Estab Mod-hi 2 [facility], [address] [address], [place], [id number], [place] tel:[phone] [facility] GI Symptoms or Concerns (chief complaint) Acute Pancreatitis Sep-0 4 No Information Offic/outpt E&m Estab Low-mod [facility], [address] [address], [place], [id number], [place] tel:[phone] [facility] Sphincter of ODDI spasm (chief complaint) Spasm Sphincter Of Oddi 3 No Information Offic/outpt E&m Estab Mod-hi 2 [facility], [address] [address], [place], [id number], [place] tel:[phone] [facility] Pancreatitis (chief complaint) Spasm Sphincter Of Oddi 2 No Information [facility], [address] [address], [place], [id number], [place] tel:[phone] [facility] No Information 2 No Information Offic/outpt E&m Estab Mod-hi 2 [facility], [address] [address], [place], [id number], tel:[phone] [facility] Pancreatitis (chief complaint) Acute Pancreatitis 2 No Information [facility], [address] [address], [place], [id number], tel:[phone] [facility] No Information 2 No Information Family History Family Member Type Diagnosis Age At Onset First degree family history Problem (finding) No history of Ulcerative Colitis First degree family history Problem (finding) No history of Cancer, colon First degree family history Problem (finding) No history of Crohn's First degree family history Problem (finding) Tourettes Syndrome First degree family history Problem (finding) Maternal history of diabetes mellitus First degree family history Problem (finding) No Family history of No history of Colon Polyps Father Problem (finding) Alive and well Mother Problem (finding) Alive and well First degree family history Problem (finding) Allergies Sister Problem (finding) Alive and well Son Problem (finding) Alive and well First degree family history Problem (finding) ADHD Brother Problem (finding) Alive and well Mother Problem (finding) hypertension Payers Payer name Insurance type Covered republican ID Authoriza tion(s) No Information Social History Type Description Quantity Date Captured Comments Alcohol Use Details No Caffeine Use Details Unknown Tobacco Use Status Smoking Status Former smoker Non-Smoking Tobacco Use Details : No Details Available : No Details Available Sex Female Vital Signs Date / Time: Height Weight BMI Pulse Rate Blood Pressure Temperature Respiratory Rate Body Surface Area Head Circumference Head Circ. Percentile Wt./Jacinto. Percentile BMI percentile Pulse Ox Inhaled Ox 9:53 AM 66.00 in 83.915 kg (185.00 lbs) 29.8 6 kg/m eter (2) 64 /min 122/68 mm[Hg] Chief Complaint And Reason For Visit From encounter dated '01/05/2016 10:00'. GI Symptoms or Concerns (chief complaint). Description: The patient is a 35-year-old white female status post cholecystectomy along with prior dual sphincterotomies or sphincter motor dysfunction whorecently underwent a repeat ERCP with pancreatic manometry for a several month recurrence of epigastric pain along with elevations in lipase. Her ERCP was done on 11/28/2015 and confirmed a widely patent biliary sphincterotomy. Her pancreatic sphincterotomy site also appeared patent; however, therewere recordable elevations in her basal sphincter pressures up to 220 mmHg. A pancreatic sphincterotomies/full septotomy was performed followed by flapless stent placement. Rectal indomethacin was also given. The patient was admitted for overnight observation and discharged in stable condition the following day. An abdominal x-ray done on 12/06/2015 showed that the pancreatic stent had passed. She has done remarkably well since her procedure. In fact, she indicates that her recovery time from this procedure was the best compared to a prior procedures. She is no longer having any abdominal pain. She is eating a normal diet and again feeling well. Reason For Referral Reason For Referral No Information Plan Of Treatment Date Type Action Status Goal Lifestyle education regardin g diet completed Referral Ordered: Xray Abdomen; Limited (AP View Only) (KUB) Appointment date/timeframe: 12/06/2015 ordered Referral Ordered: Abdomen X-ray; Limited (AP view only) (KUB) Appointment date/timeframe: 04/05/2014 ordered Referral Ordered: ERCP Appointment date/timeframe: -today ordered Referral Ordered: Ugi Endo; W/endo Ultrasound Ex Appointment date/timeframe: 03/29/2014 ordered History Of Present Illness Encounter Date Complaint History Of Prese nt Illness GI Symptoms or Concerns The symp toms began 6 months ago. The symptoms are reported as being resolved. The symptoms occur resolved. The location is epigastrium. The patient is a 35-year-old white female status post cholecystectomy along with prior dual sphincterotomies or sphincter motor dysfunction who recently underwent a repeat ERCP with pancreatic manometry for a several month recurrence of epigastric pain along with elevations in lipase. Her ERCP was done on 11/28/2015 and confirmed a widely patent biliary sphincterotomy. Her pancreatic sphincterotomy site also appeared patent; however, there were recordable elevations in her basal sphincter pressures up to 220 mmHg. A pancreatic sphincterotomies/full septotomy was performed followed by flapless stent placement. Rectal indomethacin was also given. The patient was admitted for overnight observation and discharged in stable condition the following day. An abdominal x-ray done on 12/06/2015 showed that the pancreatic stent had passed. She has done GI Symptoms or Concerns The symp toms began 5 months ago. The symptoms are reported as being moderate. The symptoms occur daily. The location is epigastrium. The patient is a 34-year-old white female status post cholecystectomy along with dual sphincterotomies for sphincter of Oddi dysfunction times two who returns because of a five-month history of recurrent epigastric pain along with a recent hospitalization for biochemical pancreatitis. She initially underwent an ERCP with dual sphincterotomies in 2011 for history of recurrent abdominal pain postcholecystectomy with elevations in lipase. She did well for several months, but then began having a recurrence of the same symptoms along with elevations in lipase. A repeat ERCP was done on 03/29/2014 with pancreatic manometry again confirming elevated basal pressures up to 280 mmHg. Pancreatic sphincterotomy was extended including a partial septotomy. The bile duct sphincterotomy appeared widely patent. 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 She again began experiencing recurrent episodes of pancreatitis earlier in the year requiring hospitalizations. An endoscopic ultrasound was done on 03/29/2014 and showed some fibrous stranding of the pancreatic parenchyma but no changes consistent with chronic pancreatitis. The common bile duct and pancreatic duct appeared normal. A repeat ERCP with pancreatic manometry was performed on 03/29/2014 as well. The pancreatic sphincter pressures were markedly elevated up to 280 mmHg. The pancreatic sphincterotomy site was extended along with the partial septotomy. The common bile duct was not cannulated as the biliary sphincterotomy site was widely patent and draining bile. She was admitted for overnight observation, but the following GI Symptoms or Concerns The symp toms began 9 years ago. The symptoms are reported as being severe. The symptoms occur randomly. The location is epigastrium. The patient is a 33-year-old white female, status post cholecystectomy for dyskinesia along with dual sphincterotomies for sphincter of Oddi dysfunction, who carries a several-year history of recurrent episodes of pancreatitis and returns after recent hospitalization for severe abdominal pain associated with elevations in lipase. She began having episodes of abdominal pain associated with evidence of pancreatitis in 2004. She ultimately underwent a cholecystectomy for dyskinesia in 2005. She continued to have episodes of abdominal pain associated with biochemical evidence of pancreatitis. An endoscopic ultrasound was done in 2011, and was essentially unremarkable with minimal stranding seen in the pancreatic parenchyma, but no evidence of chronic pancreatitis or pancreas divisum. An MRCP was done in January of 2012 which also showed no evidence fo Functional Status Date Functional Assessmen t No Information Instructions Date Instruction Additional Infor alexey The patient will con tact the office if she has any recurrence of pain. If this should occur, then might even consider an EUS to screen for any evolution of underlying chronic pancreatitis. Otherwise, she will be returning on an as-needed basis. Related to Sphincter of Oddi dysfunction Jeff call if pain rec urs; consider EUS to screen for chronic pancreatitis Related to Sphincter of Oddi dysfunction Xray Abdomen; Limite d (AP View Only) (KUB) We will schedule the patient for a repeat ERCP with sphincter of Oddi manometry in the near future. The procedure including the risk of pancreatitis along with means of mitigating the risk with pancreatic extending and rectal indomethacin were explained and she accepts. We will otherwise plan followup in six to eight weeks, but again if her study is unremarkable or if she has another recurrence of symptoms post-treatment, then I would anticipate referral for a second opinion. Related to Abdominal pain, epigastric ERCP Related to Acute pancreatitis, unspecified Lifestyle education regarding di et Related to Dietary counseling and surveillance She will contact the office if she should have any recurrence of pain/pancreatitis. She will otherwise follow up on an as-needed basis. Related to Spasm Sphincter Of Oddi Call if symptoms recur Related t o Spasm Sphincter Of Oddi Abdomen X-ray; Limit ed (AP view only) (KUB) We will attempt to s chedule the patient for assumed EUS along with repeat ERCP with ALVIN within the next week. She will always be following up after testing is completed. Related to Acute Pancreatitis ERCP Related to Acute Pancreatitis Assessments Type Assessment Date assessment Sphincter of Oddi dysfunction Felisha impression Status post cholecys tectomy with history of sphincter of Oddi dysfunction status post recent ERCP which confirmed persistent pancreatic sphincter hypertension with extension of the pancreatic sphincterotomy and a full septotomy performed. She has had remarkable clinical improvement and hopefully this will be long lasting. Mental Status Date Cognitive Assessment Orientation - [place] ed to time, place, person, situation. Patient Care Teams Name Effective Dates (start - stop) Status Members No Information
[2023-04-05 19:42] LABS: Slide Review Reflex No
[2023-04-05 19:45] LABS: Chloride* 105 mmol/L (96-114); Sodium* 138 mmol/L (135-149)
[2023-04-05 19:48] LABS: Anion Gap 11 mEq/L (7-15); Blood Urea Nitrogen* 14 mg/dL (5-24); Carbon Dioxide* 22 mmol/L (20-32); Est. Creatinine Clearance* 67.91; Estimated Glomerular Filt Rate 72 ml/min; Lipase* 436 U/L (23-300)
[2023-04-05 19:49] LABS: Glucose* 117 mg/dL (60-115)
--- NOTE | 2023-04-05 20:12 | ED.NURSE ---
Patient placed public relations consultant light requesting additional pain medication. MD notified.
[2023-04-05] MEDS: LORazepam 2 MG/ML inj 0.5 MG IV (20:46)
[2023-04-05] MEDS: MORPHINE 4 MG/ML INJ IVP (20:46)
--- NOTE | 2023-04-05 21:11 | ED.NURSE ---
patient report given to giovanni CALDERON.
[2023-04-05 21:25] VITALS: PULSE 70; RESP 20; O2SAT 97
--- NOTE | 2023-04-05 21:29 | P.IMHP_ITS ---
Hospitalist- H&P: HPI History of Present Illness Date Seen: 04/05/23 Chief complaint: Abdominal pain Narrative: Tatum Taylor is a 42 year old female with history of pancreatitis due to sphincter of Oddi dysfunction presents with 1 day history of severe epigastric abdominal pain characteristic of recurrent pancreatitis. Patient has previous history of multiple recurrent episodes of pancreatitis. In 2015 she had her last ERCP with sphincterotomy. Since then she has generally been doing fairly well. Her last hospitalization here for this problem was January of 2022. She was on [place] in [place] and had an episode that was treated on the cruise ship. She reports her current symptoms are relatively characteristic of her usual episodes of pancreatitis. She does report that her stools have been normal. Sometimes there click colored when she has these episodes. She has had no other health problems recently. She has had associated nausea with a little bit of dry heaves. She has not had a fever. He has had a very poor appetite and has had little p.o. intake today. 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 - Mast cell activation, unspecified (ICD-10) Sphincter of Oddi spasm ?K83.4 - Spasm of sphincter of Oddi (ICD-10) Sphincter of Oddi dysfunction (Unknown) ?K83.4 - Spasm of sphincter of Oddi (ICD-10) Surgical History History of tonsillectomy and adenoidectomy ?Z90.89 - Acquired absence of other organs (ICD-10) Hx of appendectomy ?Z90.49 - Acquired absence of other specified parts of digestive tract (ICD- 10) Hx laparoscopic cholecystectomy ?Z90.49 - Acquired absence of other specified parts of digestive tract (ICD- 10) History of sphincterotomy of sphincter of Oddi ?Z98.890 - Other specified postprocedural states (ICD-10) Family History Sister Danika's disease Sister Raynaud phenomenon Mother Rheumatoid arthritis Erythema multiforme Social History (Updated 04/05/23 @ 21:32 by Omar Jackson MD) Narrative: 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 Does not drink alcohol or use recreational drugs. Getting medical care through [facility] in [place]. Highest level of school completed/degree received: Associate degree: academic program Smoking Status: Current some day smoker How often do you have a drink containing alcohol: never AUDIT-C Alcohol total score: 0 Non-prescribed substance use: denies use Caffeine: Yes (2 cans of soda a day) service: Yes Meds Home Medications and Allergies Home Medications Medication Instructions Recorded Confirmed Type albuterol sulfate 90 mcg/actuation 2 puff inhalation QID PRN 02/11/22 02/11/22 History aerosol inhaler shortness of breath or wheezing atorvastatin 20 mg tablet 20 mg PO HS 02/11/22 02/11/22 History cetirizine 10 mg tablet (Zyrtec) 20 mg PO ONCE PRN 02/11/22 02/11/22 History duloxetine 30 mg capsule,delayed 60 mg PO HS 02/11/22 02/11/22 History release fexofenadine 180 mg tablet 180 mg PO BID 02/11/22 02/11/22 History fluocinonide 0.05 % topical cream 1 applic topical DAILY PRN 02/11/22 02/11/22 History fluticasone 250 mcg-salmeterol 50 1 inh inhalation Q12H 02/11/22 02/11/22 History mcg/dose blistr powdr for inhalation hydromorphone 4 mg tablet 2 - 4 mg PO Q6H PRN 02/11/22 02/11/22 History hydroxyzine HCl 25 mg tablet 25 - 50 mg PO HS PRN 02/11/22 02/11/22 History lorazepam 0.5 mg tablet 0.5 - 1 mg PO Q8H PRN sphincter 02/11/22 02/11/22 History spasm ondansetron 4 mg disintegrating 4 mg PO Q6H PRN 02/11/22 02/11/22 History tablet prednisone 20 mg tablet 100 mg PO ONCE PRN 02/11/22 02/11/22 History Allergies Allergy/AdvReac Type Severity Reaction Status Date / Time polyethylene glycol Allergy Anaphylaxis Verified 02/11/22 17:49 fentanyl AdvReac pain Verified 07/25/22 17:49 Exam Narrative: Exam Narrative: She is alert and appears in mild distress. She gives her own history. Eyes are normal. Sclerae nonicteric. Oropharynx with dry mucous membranes. Neck is supple without mass or adenopathy. Respirations are clear to auscultation. Cardiovascular: S1, S2, regular rate and rhythm. No murmur gallop or rub. Abdomen: Bowel sounds are present but diminished. Abdomen is soft but diffusely tender especially in the epigastrium. No mass. No peritonitis. External genitalia normal. Extremities without edema. Intact peripheral pulses and good perfusion. Const: Vital Signs, click to edit/add: Vital Signs - 24 hr 04/05/23 18:57 04/05/23 21:25 Temperature 98.2 F Pulse Rate [Right Pulse Oximeter] 88 70 Respiratory Rate 18 20 Blood Pressure [Ri ght Upper Arm] 161/84 H Pulse Oximetry 97 97 Oxygen Delivery Me thod Room Air Room Air Documenting provider has reviewed patient's vital signs: yes Hospitalist - H&P: Result Labs Labs: Short CBC 04/05/23 Range/Units 19:25 WBC 8.04 (4.50-11.00) K/uL Hgb 13.7 (12.0-16.0) gm/dL Hct 40.1 (33.0-51.0) % Plt Count 382 (140-440) K/uL BMP 04/05/23 19:25 Sodium 138 Potassium 4.0 Chloride 105 Carbon Dioxide 22 BUN 14 Creatinine 1.0 Glucose 117 H Calcium 10.0 Assessment and Plan Assessment and plan (1) Pancreatitis: Problem comment: Appears to be atypical episode of 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 Will medically manage with IV fluids and symptom control. Consider GI consultation if not clinically improving over the next couple days or if complications develop. Status: Acute (2) Sphincter of Oddi dysfunction: Problem comment: Last intervention and sphincterotomy in 2016. Not currently seeing GI for this. Previously saw Dr. Tinajero and has been referred to Dr. Faustin Status: Acute Plan 42-year-old female with acute on chronic pancreatitis. Admit for IV fluids and symptom management. Advance diet as tolerated. Total time spent today is 60 minutes, 40 minutes in coordination of care discussing with patient and other providers ongoing evaluation management of pancreatitis
[2023-04-05 21:30] VITALS: BP 118/74; PULSE 77; RESP 18; TEMP 36.8; O2SAT 96; O2SAT 97; BMI 34.3
[2023-04-05] MEDS: LACTATED RINGERS 1000 ML 1,000 ML IV (22:14)
[2023-04-05] MEDS: LORazepam 0.5 MG TABLET PO (22:14)
[2023-04-05 23:00] VITALS: BP 112/73; PULSE 71; RESP 18; TEMP 36.8; O2SAT 96
[2023-04-05] MEDS: LACTATED RINGERS 1000 ML 1,000 ML 125 ML IV (23:16)
[2023-04-06 03:00] VITALS: BP 112/68; PULSE 71; RESP 16; TEMP 36.4; O2SAT 96
[2023-04-06] MEDS: LORazepam 0.5 MG TABLET PO ×2 (05:01→21:31)
[2023-04-06] MEDS: HYDROmorphone 0.5 mg/0.5 ml inj IVP ×5 (05:01→22:20)
[2023-04-06] MEDS: ONDANSETRON 2 MG/ML inj 4 MG IVP ×3 (05:06→21:41)
[2023-04-06] MEDS: HYDROmorphone 2 MG TABLET 4 MG PO ×3 (05:08→21:55)
--- NOTE | 2023-04-06 05:43 | PC.NURSE ---
Admitted to floor at 2125 with dx of chronic pancreatitis. Patient reports that since previous evening her pain in left upper quadrant and left shoulder has increased and home PRN medication were not effective. Nausea reported, no vomiting but patient did state she had a loose stool. Received prn dilaudid and ativan at 2215, patient slept well until 0500 when she reported severe left upper quadrant pain. PRN IV dilaudid and oral ativan administer, patient reporting nausea and requesting ondasetron for nausea. 15 minutes later patient reporting pain was increasing, prn oral dilaudid administered. Patient is independent in room, does request staff assistance when present to SBA to bathroom. Tolerating clear liquids well.
[2023-04-06] MEDS: KETOROLAC 30 MG/ML inj 15 MG IVP ×2 (06:55→22:48)
[2023-04-06 07:00] VITALS: PULSE 88; RESP 16; TEMP 36.4; O2SAT 98
[2023-04-06 07:20] LABS: Basophils Absolute Auto 0.06 K/uL (0.00-0.30); Basophils Percent Auto 1.2 % (0.0-3.0); Eosinophils Absolute Auto 0.17 K/uL (0.00-0.50); Eosinophils Percent Auto 3.4 % (0.0-7.0); Hematocrit 35.2 % (33.0-51.0); Hemoglobin* 11.8 gm/dL (12.0-16.0); Immature Granulocytes Abs Auto 0.02 K/uL (0.00-0.30); Immature Granulocytes Pct Auto 0.4 %; Lymphocytes Absolute Auto 1.68 K/uL (0.90-2.90); Lymphocytes Percent Auto 33.8 % (20-44); Mean Corpuscular HGB Conc 34 gm/dL (32-36); Mean Corpuscular Hemoglobin 29 pg (26-34); Mean Corpuscular Volume 85 fL (80-100); Monocytes Percent Auto 8.2 % (0.0-11.0); Neutrophils Absolute Auto 2.63 K/uL (1.7-7.0); Platelet Count* 313 K/uL (140-440); RDW Coefficient of Variation % 12.6 % (11.5-15.5); Red Blood Count 4.13 m/uL (4.00-5.20); Slide Review Reflex No; White Blood Count* 4.97 K/uL (4.50-11.00)
[2023-04-06] MEDS: LACTATED RINGERS 1000 ML 1,000 ML 125 ML IV ×3 (07:24→22:48)
[2023-04-06 07:41] LABS: Chloride* 106 mmol/L (96-114); Potassium* 4.3 mmol/L (3.6-5.1); Sodium* 136 mmol/L (135-149)
[2023-04-06 07:43] LABS: Est. Creatinine Clearance* 67.91; Estimated Glomerular Filt Rate 72 ml/min
[2023-04-06 07:44] LABS: Anion Gap 5 mEq/L (7-15); Blood Urea Nitrogen* 15 mg/dL (5-24); Calcium* 9.1 mg/dL (8.4-10.6); Carbon Dioxide* 25 mmol/L (20-32); Glucose* 91 mg/dL (60-115); Lipase* 244 U/L (23-300)
[2023-04-06] MEDS: FEXOFENADINE 180 MG TABLET PO ×2 (10:31→21:33)
[2023-04-06] MEDS: DULOXETINE 30 MG CAPSULE DR 60 MG PO ×2 (10:49→21:33)
[2023-04-06] MEDS: BUDESONIDE 0.5 MG/2ML NEB NEB ×2 (10:50→21:37)
[2023-04-06] MEDS: ACETAMINOPHEN 1,000 MG/100 ML INJ 1000 MG IVPB ×2 (10:54→21:46)
[2023-04-06 11:00] VITALS: BP 121/75; PULSE 88; RESP 16; TEMP 36.7; O2SAT 98
--- NOTE | 2023-04-06 14:50 | PM.IMPN1 ---
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 Will medically manage with IV fluids and symptom control. Consider GI consultation if not clinically improving over the next couple days or if complications develop. Day 1 now modestly better Status: Acute (2) Sphincter of Oddi dysfunction: Problem details: Last intervention and sphincterotomy in 2016. Not currently seeing GI for this. Previously saw Dr. Tinajero and has been referred to Dr. Faustin Status: Acute Plan Continue in hospital for IV fluids until able to maintain p.o. food and fluid intake. Continue oral and IV pain control. Time Spent With Patient Total time spent: Total time spent today is 35 minutes, 25 minutes in coordination of care discussing with patient other providers symptom management. 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 She reports feeling better today. She reports her pain control has been pretty good. I was able to give her some IV acetaminophen which she says was affective in July of this year. She did find this to be quite effective again today. She has been taking in some clear liquids and tolerating that fairly well. Exam Narrative: Exam Narrative: She is alert and appears in no distress. Mood and affect are improved today with her pain control. She is pleasant and cooperative. Abdomen is soft. She still has moderate to epigastric tenderness. Less diffuse abdominal tenderness today. Const: Vital Signs, click to edit/add: Vital Signs - 24 hr 04/05/23 18:57 04/05/23 21:25 04/05/23 21:30 Temperature 98.2 F 98.2 F Pulse Rate [Left P ulse Oximeter] 77 Pulse Rate [Right Pulse Oximeter] 88 70 Respiratory Rate 18 20 18 Blood Pressure [Ri ght Arm] 118/74 Blood Pressure [Ri ght Upper Arm] 161/84 H Pulse Oximetry 97 97 97 Oxygen Delivery Me thod Room Air Room Air Room Air 04/05/23 21:30 04/05/23 23:00 04/06/23 03:00 Temperature 98.2 F 97.5 F L Pulse Rate [Left P ulse Oximeter] 71 71 Pulse Rate [Right Pulse Oximeter] Respiratory Rate 18 18 16 Blood Pressure [Ri ght Arm] 112/73 112/68 Blood Pressure [Ri ght Upper Arm] Pulse Oximetry 96 96 96 Oxygen Delivery Me thod Room Air Room Air Room Air 04/06/23 07:00 04/06/23 11:00 Temperature 97.5 F L 98.0 F Pulse Rate [Left P ulse Oximeter] 88 88 Pulse Rate [Right Pulse Oximeter] Respiratory Rate 16 16 Blood Pressure [Ri ght Arm] 121/75 Blood Pressure [Ri ght Upper Arm] Pulse Oximetry 98 98 Oxygen Delivery Me thod Room Air Documenting provider has reviewed patient's vital signs: yes Labs Labs: Laboratory Results - last 24 hr 04/05/23 04/06/23 19:25 06:14 WBC 8.04 4.97 RBC 4.80 4.13 Hgb 13.7 11.8 L Hct 40.1 35.2 MCV 84 85 MCH 29 29 MCHC 34 34 RDW Coeff of Declan 12.4 12.6 Plt Count 382 313 Neut % (Auto) 64.4 53.0 Lymph % (Auto) 24.9 33.8 [place] % (Auto) 7.2 8.2 Eos % (Auto) 2.2 3.4 Baso % (Auto) 0.7 1.2 Neut # (Auto) 5.17 2.63 Lymph # (Auto) 2.00 1.68 [place] # (Auto) 0.60 0.40 Eos # (Auto) 0.18 0.17 Baso # (Auto) 0.06 0.06 Abs Immat Gran (auto) 0.05 0.02 Imm/Tot Granulo (auto) 0.6 0.4 Sodium 138 136 Potassium 4.0 4.3 Chloride 105 106 Carbon Dioxide 22 25 Anion Gap 11 5 L BUN 14 15 Creatinine 1.0 1.0 Estimated Creat Clear 67.91 67.91 Estimated GFR 72 72 Glucose 117 H 91 Calcium 10.0 9.1 Lipase 436 H 244
[2023-04-06 15:00] VITALS: BP 131/85; PULSE 80; RESP 16; TEMP 36.7; O2SAT 98
[2023-04-06 19:00] VITALS: BP 133/84; PULSE 79; RESP 16; TEMP 36.6; O2SAT 97
--- NOTE | 2023-04-06 19:42 | PC.NURSE ---
End of shift note: patient alert and oriented, pleasant and cooperative. Tired and slept comfortably most of the day. PRN IV Tylenol administered with relief. Patient only required Dilaudid PRN administred x2 see eMAR. NANCE, on RA. PRN Zofran administered x1, ice pack and heating pad utilized with relief.
[2023-04-06] MEDS: ENOXAPARIN 40 MG/0.4 ML INJ SUBCUT (21:33)
[2023-04-06] MEDS: ATORVASTATIN 10 MG TABLET 20 MG PO (21:33)
[2023-04-06 23:00] VITALS: BP 126/72; PULSE 69; RESP 18; TEMP 36.7; O2SAT 95
[2023-04-07 03:00] VITALS: BP 114/68; PULSE 80; RESP 16; TEMP 36.7; O2SAT 96
[2023-04-07] MEDS: HYDROmorphone 2 MG TABLET 4 MG PO (03:02)
[2023-04-07] MEDS: KETOROLAC 30 MG/ML inj 15 MG IVP (05:12)
[2023-04-07] MEDS: HYDROmorphone 0.5 mg/0.5 ml inj IVP ×3 (05:17→19:34)
--- NOTE | 2023-04-07 05:38 | PC.NURSE ---
End of shift [id number]: Alert and oriented x 4. Pain reported to left upper quadrant that radiates to midline abdomen, up to left shoulder and through to near shoulder blade on her back. Appears to have acute episodes that require multiple interventions of PRN medication, which are effective for pain as well as patient repositions self to a kneeling position and lays head on bed. Upper and lower extremities edematous, patient will attempt to get up and ambulate to help move fluid. Continues with clear liquid diet, denies appetite at this time. Transfers independently.
[2023-04-07] MEDS: LACTATED RINGERS 1000 ML 1,000 ML 125 ML IV (06:55)
[2023-04-07 07:31] VITALS: BP 135/88; PULSE 71; RESP 14; TEMP 36.7; O2SAT 93
[2023-04-07] MEDS: FEXOFENADINE 180 MG TABLET PO ×2 (09:19→20:47)
[2023-04-07] MEDS: BUDESONIDE 0.5 MG/2ML NEB NEB ×2 (09:20→20:47)
[2023-04-07] MEDS: ACETAMINOPHEN 1,000 MG/100 ML INJ 1000 MG IVPB (09:20)
[2023-04-07] MEDS: ONDANSETRON 2 MG/ML inj 4 MG IVP (10:32)
--- NOTE | 2023-04-07 11:27 | NUTR.NU ---
RDN with nutrition screen for pancreatitis. Patient agreed to receive diet education related to pancreatitis. Patient was provided brief diet education on a low fat diet as patient reports being familiar with this diet. Discussed foods to include and foods to avoid. Education also provided following a low fat diet (about 60 grams/day) long-term. Verbal and written information as well as a sample menu provided from [facility]. Patient verbalized understanding. Patient reports following an RDN outpatient for pancreatitis. RDN's contact information was provided and patient was encouraged to contact RDN with questions. RDN will continue to follow PRN.
[2023-04-07 12:18] VITALS: BP 128/75; PULSE 72; RESP 14; TEMP 36.4; O2SAT 94
[2023-04-07 15:45] VITALS: BP 127/77; PULSE 68; RESP 14; TEMP 36.6; O2SAT 96
--- NOTE | 2023-04-07 18:04 | PM.IMPN1 ---
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 Overall she appears to be improving, albeit slowly. Discussion with [facility] as above today. Will continue with IV fluids but decrease the rate since she is taking adequate oral intake and starting to feel tense and swollen in her hands and feet. I have encouraged ambulation. Will consider dicyclomine or hyoscyamine if she is not improved by tomorrow. Status: Acute (2) Sphincter of Oddi dysfunction: Problem details: Last intervention and sphincterotomy in 2016. Not currently seeing GI for this. Previously saw Dr. Tinajero and has been referred to Dr. Faustin Status: Acute Subjective Time Seen by Provider: 10:25 Date Seen: 04/07/23 Interval history: Tatum continues to have episodes of sudden right upper quadrant pain that she describes as spasms. She says it feels like her previous episodes where she has been told she has dysfunction of her sphincter of Oddi. She tells me that she used to see Dr. Temo Tinajero at [facility] and he referred her to Dr. Faustin at the [facility], but she never made that appointment. She did well 1st many years and then last year had symptoms for which she was in our hospital. She did okay for a while and had some more symptoms over the summer for which she just use clear Ensure for a while and that got better. This time she was surprised to hear that her lipase had been elevated on admission. Notably it was normal yesterday, but she continues to have symptoms even into today. She still has no appetite and feels fatigued. She is taking in adequate oral fluids, but continues to feel dry to the mouth. She also notes some swelling in her hands and feet. Denies shortness of breath. I called [facility] and spoke with Dr. Rodriguez. She recommended continuing to monitor the patient as an inpatient and treating like a pancreatitis. If her symptoms do not improve, we could try dicyclomine or hyoscyamine. She recommended that this patient be sent back to [facility] as she may need an outpatient EUS or ERCP to look for patent sphincter. If she is not improving over the next several days then Dr. Rodriguez wanted me to call back to talk with [facility] rather than trying to transfer her. Exam Narrative: Exam Narrative: General: No acute distress. Awake, alert, oriented. No pallor. No jaundice. Oropharynx: Clear. Mucous membranes dry. Cardiovascular: Regular rate and rhythm. No murmurs, gallops, or rubs. Respiratory: Clear to auscultation bilaterally. No wheezes or crackles. Abdomen: Bowel sounds present. Soft, nondistended, mildly tender in the epigastrium and right upper quadrant. Extremities: No pedal edema. Const: Vital Signs, click to edit/add: Vital Signs - 24 hr 04/06/23 19:00 04/06/23 23:00 04/07/23 03:00 Temperature 97.8 F 98.1 F 98.1 F Pulse Rate [Left P ulse Oximeter] 79 69 80 Respiratory Rate 16 18 16 Blood Pressure [Le ft Arm] Blood Pressure [Ri ght Arm] 133/84 126/72 114/68 Pulse Oximetry 97 95 96 Oxygen Delivery Me thod Room Air Room Air Room Air 04/07/23 07:31 04/07/23 07:31 04/07/23 12:18 Temperature 98.1 F 97.5 F L Pulse Rate [Left P ulse Oximeter] 71 71 72 Respiratory Rate 14 14 14 Blood Pressure [Le ft Arm] 128/75 Blood Pressure [Ri ght Arm] 135/88 Pulse Oximetry 93 94 Oxygen Delivery Me thod Room Air Room Air 04/07/23 15:45 04/07/23 15:45 Temperature 98 F Pulse Rate [Left P ulse Oximeter] 68 68 Respiratory Rate 14 14 Blood Pressure [Le ft Arm] 127/77 Blood Pressure [Ri ght Arm] Pulse Oximetry 96 Oxygen Delivery Ny thod Room Air
--- NOTE | 2023-04-07 19:27 | PC.NURSE ---
End of Shift: Patient pleasant and cooperative. Patient vitally stable, lungs clear, BS WNL, IV running LR at 50. Patient independent, and has walked the halls. Patient has rates abdominal pain at most 5/10, zophran, 0.5 dilauded, and tylenol all given once. Patient urinating and tolerating clear liquids.
[2023-04-07 19:29] VITALS: BP 132/77; PULSE 73; RESP 16; TEMP 36.6; O2SAT 95
[2023-04-07] MEDS: LORazepam 0.5 MG TABLET PO (19:45)
[2023-04-07] MEDS: ENOXAPARIN 40 MG/0.4 ML INJ SUBCUT (20:46)
[2023-04-07] MEDS: ATORVASTATIN 10 MG TABLET 20 MG PO (20:47)
[2023-04-07] MEDS: DULOXETINE 30 MG CAPSULE DR 60 MG PO (20:47)
[2023-04-07] MEDS: HYDROmorphone 2 MG TABLET PO (21:28)
[2023-04-07 23:00] VITALS: BP 128/59; PULSE 76; RESP 16; TEMP 36.7; O2SAT 94
[2023-04-08] MEDS: LACTATED RINGERS 1000 ML 1,000 ML 50 ML IV (01:19)
[2023-04-08] MEDS: KETOROLAC 30 MG/ML inj 15 MG IVP (01:26)
[2023-04-08 03:00] VITALS: BP 130/77; PULSE 92; RESP 18; TEMP 36.7; O2SAT 93
--- NOTE | 2023-04-08 06:45 | PC.NURSE ---
End of shift: A&O pleasant and cooperative. VSS. Pt complains of 2-6/10 pain. See eMAR for interventions. Ind in room. Reported ?slight? nausea but was relieved by lying down. Bowel sounds active.?
[2023-04-08 08:48] VITALS: BP 137/8; PULSE 77; RESP 16; TEMP 36.7; O2SAT 94
[2023-04-08] MEDS: FEXOFENADINE 180 MG TABLET PO (09:21)
[2023-04-08] MEDS: BUDESONIDE 0.5 MG/2ML NEB NEB (09:22)
--- NOTE | 2023-04-08 11:46 | P.DS_ITS ---
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 - Resolved. ADAT today and discharge home if tolerates this (2) Sphincter of Oddi dysfunction: Status: Acute Problem details: - Last intervention and sphincterotomy in 2015. Not currently seeing GI for this. Previously saw Dr. Temo Tinajero and has been referred to Dr. Faustin - I called [facility] and spoke with Dr. Rodriguez 04/07/23. If her symptoms do not improve, we could try dicyclomine or hyoscyamine. She recommended that this patient be sent back to [facility] as she may need an outpatient EUS or ERCP to look for patent sphincter. I spoke with the patient about these recommendations. Tatum is already feeling better today and did not want to start these medications yet. She is scheduled to go on an [employer] cruise with her sister starting Friday. We discussed that from a medical standpoint and I thought it would be okay for her to do that since she has already gotten much better, this is not a life-threatening condition at this time since the pancreatitis has resolved and she is able to tolerate food, and they have medical facilities on the ship where she could get off at a port and fly home. DS: Summary Hospital Course Hospital Course: This is a 42-year-old female with history of sphincter of Oddi dysfunction who presented with severe epigastric abdominal pain. She admit elevated lipase which indicated recurrent pancreatitis. Her last ERCP with sphincterotomy was in 2015 and she has not seen GI since then. She had been doing quite well until about a year ago when she had a bout of pancreatitis requiring hospitalization here, and then a bout of pancreatitis on a crew ship in July requiring medical attention throughout that cruise via the ship's doctor and medical facilities. She was admitted with bowel rest and did well overnight, lipase normalized, but she continued to have spasms of pain in the epigastrium and right upper quadrant consistent with her history of sphincter of Oddi dysfunction. Conversation with [facility] to place, please see above. She improved over the next day and was able to resume her usual diet and was disc harged home in stable condition. I have asked her to follow-up with [facility] as she may need further investigation since she has had more frequent bouts of dysfunction and pancreatitis recently. Time Spent with Patient Time attestation: Total time spent providing and/or coordinating discharge services: Exam Narrative: Exam Narrative: General: No acute distress. Awake, alert, oriented. No pallor. No jaundice. Oropharynx: Clear. Mucous membranes moist. Cardiovascular: Regular rate and rhythm. No murmurs, gallops, or rubs. Respiratory: Clear to auscultation bilaterally. No wheezes or crackles. Const: Vital Signs, click to edit/add: Vital Signs - 24 hr 04/07/23 12:18 04/07/23 15:45 04/07/23 15:45 Temperature 97.5 F L 98 F Pulse Rate [Left P ulse Oximeter] 72 68 68 Respiratory Rate 14 14 14 Blood Pressure [Le ft Arm] 128/75 127/77 Blood Pressure [Ri ght Arm] Pulse Oximetry 94 96 Oxygen Delivery Me thod Room Air Room Air 04/07/23 19:29 04/07/23 23:00 04/08/23 03:00 Temperature 97.9 F 98.1 F 98.0 F Pulse Rate [Left P ulse Oximeter] 73 76 92 Respiratory Rate 16 16 18 Blood Pressure [Le ft Arm] 128/59 L Blood Pressure [Ri ght Arm] 132/77 130/77 Pulse Oximetry 95 94 93 Oxygen Delivery Me thod Room Air Room Air Room Air 04/08/23 08:48 Temperature 98.1 F Pulse Rate [Left P ulse Oximeter] 77 Respiratory Rate 16 Blood Pressure [Le ft Arm] Blood Pressure [Ri ght Arm] 137/8 L Pulse Oximetry 94 Oxygen Delivery Me thod Room Air DS: Data Data Completed and Pending Completed studies during hospitalization: Ordering Physician: Fareed Jeong M.D. Date of Service: 02/13/22 Procedure(s): CT abdomen pelvis w con Accession Number(s): [id number] cc: Fareed Jeong M.D.; Jacinta Mendes MD~ For Patients: As a result of the 21st Century Cures Act, medical imaging exams and procedure reports are released immediately into your electronic medical record. You may view this report before your referring provider. If you have questions, please contact your health care provider. INDICATION: Abdominal pain. TECHNIQUE: CT of the abdomen and pelvis with 100 cc Isovue 370 IV contrast. Coronal and sagittal reconstructions. COMPARISON: CT of the abdomen and pelvis 06/15/2016. FINDINGS: There is a tiny low-attenuation lesion in the superior right hepatic lobe which is too small to characterize but likely benign. Cholecystectomy. Stable mild intrahepatic bile duct dilation likely related to post cholecystectomy state. No dilation of the common bile duct. The spleen is enlarged measuring 14.6 cm in AP dimension today compared to 13 cm previously. The pancreas and adrenal glands are negative. Hepatic and portal veins are patent. Symmetric enhancement of the kidneys. No hydronephrosis or ureteral dilation. No obstructing urinary calculi identified. The urinary bladder is distended but otherwise unremarkable. The uterus is normal in appearance. No adnexal mass. Small hiatal hernia. No bowel dilation. There are multiple fluid-filled loops of mid and distal small bowel which are nonspecific. No significant wall thickening. Moderate amount of stool throughout the colon. Appendectomy. Trace free fluid in the pelvic cul-de-sac is likely physiologic. No intraperitoneal free air. No lymphadenopathy. The bones are unremarkable. Subcutaneous edema along the lateral aspect of both hips. Mild bibasilar atelectasis. IMPRESSION: 1. Multiple fluid-filled loops of mid and distal small bowel are nonspecific but could be due to enteritis. 2. No other acute findings in the abdomen or pelvis. 3. Splenomegaly. 4. Distended urinary bladder. Please note that all CT scans at this facility use dose modulation, iterative reconstruction, and/or weight-based dosing when appropriate to reduce radiation dose to as low as reasonably achievable. Dictated by Peyton Turcios MD @ 02/13/2022 12:04:25 PM (Electronically Signed) Discharge Plan Discharge Disposition: Home, Self-Care Date of Admission: 04/05/23 21:20 Attending Provider on Discharge: Pita Springer Primary Care Provider: Jacinta Mendes Condition: Unchanged Anticipated Discharge Date/Time: 04/08/23 13:00 Discharge Medications: Continued fluticasone propion-salmeterol 250-50 mcg/dose blister with device 1 inh INHALATION Q12H atorvastatin 20 mg tablet 20 mg PO HS fexofenadine 180 mg tablet 180 mg PO BID lorazepam 0.5 mg tablet 0.5 - 1 mg PO Q8H PRN Rx Instructions: panic attack hydroxyzine HCl 25 mg tablet 25 - 50 mg PO HS PRN albuterol sulfate 90 mcg/actuation HFA aerosol inhaler 2 puff INHALATION QID PRN (Reason: shortness of breath or wheezing) cetirizine [Zyrtec] 10 mg tablet 20 mg PO ONCE PRN Patient Comments: FOR EMERGENCY, SEVERE ALLERGIC REACTION duloxetine 60 mg capsule,delayed release(DR/EC) 60 mg PO HS epinephrine 0.3 mg/0.3 mL auto-injector 0.3 mg IM ONCE PRN (Reason: allergies) tacrolimus [Protopic] 0.1 % ointment 1 applic topical BID PRN diphenhydramine HCl [Benadryl] 25 mg capsule 25 - 50 mg PO Q6H PRN hydromorphone 4 mg tablet 4 mg PO Q6H PRNQty: 10 0RF ondansetron 4 mg tablet,disintegrating 4 mg PO Q6H PRNQty: 10 0RF Discontinued prednisone 20 mg tablet 100 mg PO ONCE PRN Patient Comments: EMERGENCY SET: IF SEVERE ALLERGIC REACTION, IMMEDIATELY TAKE 100MG PREDNISONE (5 TABLETS) AND 2 TABLETS OF CETIRIZINE 10MG BY MOUTH, AND WRI ceftazidime 1 gram recon soln 1 g IV .MONTHLY Discharge Orders: Discharge Order (Routine); Ordered 04/08/23 Ordered By: Pita Springer Additional Instructions: Establish PCP when back from cruise. F/u with [facility] in 1-2 months. Activity Level: No Restrictions Discharge Diet: Regular Follow Up Appointments: Jacinta Mendes MD [Primary Care Provider] - Forms: [facility] Info Instructions
== END 2023-04-08 13:30 | disposition home or self-care (01) | DRG 440 ==
LOC: ED 20:43 → MEDSURG 21:20
PROVIDERS: Admitting Provider Family Medicine; Emergency Provider Emergency Medicine Emergency Medical Services; PCP Family Medicine; Visit Provider Family Medicine
DX: K85.90 Acute pancreatitis without necrosis or infection, unspecified (principal); K86.1 Other chronic pancreatitis; K83.4 Spasm of sphincter of Oddi; D89.40 Mast cell activation, unspecified
CPT/HCPCS: 36415; 80048; 83690; 85025; 94640; 99284; A9270; J0131; J1170; J1650; J1885; J2060; J2270; J2405; J7120; J7626

== ENCOUNTER 2023-04-19 01:39 | Inpatient (IN) | payer OTHER, SELFPAY ==
[2023-04-19] VITALS (12 sets, daily range): BP systolic 102–135; BP diastolic 64–86; PULSE 61–84; RESP 16–18; TEMP 36.7–36.9; O2SAT 97–100; BMI 34.7; BMI 35.1
[2023-04-19] MEDS: 0.9 % SODIUM CHLORIDE 1000 ml 1,000 ML IV (01:50)
[2023-04-19] MEDS: ONDANSETRON 2 MG/ML inj 4 MG IVP ×5 (01:55→21:23)
[2023-04-19 02:11] LABS: Basophils Absolute Auto 0.06 K/uL (0.00-0.30); Basophils Percent Auto 0.6 % (0.0-3.0); Eosinophils Absolute Auto 0.22 K/uL (0.00-0.50); Eosinophils Percent Auto 2.2 % (0.0-7.0); Hematocrit 41.1 % (33.0-51.0); Hemoglobin* 14.1 gm/dL (12.0-16.0); Immature Granulocytes Abs Auto 0.05 K/uL (0.00-0.30); Immature Granulocytes Pct Auto 0.5 %; Lymphocytes Absolute Auto 2.96 K/uL (0.90-2.90); Lymphocytes Percent Auto 29.3 % (20-44); Mean Corpuscular HGB Conc 34 gm/dL (32-36); Mean Corpuscular Hemoglobin 28 pg (26-34); Mean Corpuscular Volume 83 fL (80-100); Monocytes Percent Auto 6.8 % (0.0-11.0); Neutrophils Absolute Auto 6.13 K/uL (1.7-7.0); Neutrophils Percent Auto 60.6 % (42.0-72.0); Platelet Count* 413 K/uL (140-440); RDW Coefficient of Variation % 12.4 % (11.5-15.5); Red Blood Count 4.98 m/uL (4.00-5.20); White Blood Count* 10.11 K/uL (4.50-11.00)
[2023-04-19 02:13] LABS: Slide Review Reflex No
[2023-04-19] MEDS: HYDROmorphone 0.5 mg/0.5 ml inj IVP ×6 (02:25→17:40)
[2023-04-19 02:26] LABS: Chloride* 104 mmol/L (96-114); Potassium* 4.2 mmol/L (3.6-5.1); Sodium* 135 mmol/L (135-149)
[2023-04-19 02:28] LABS: Creatinine* 0.9 mg/dL (0.5-1.5); Est. Creatinine Clearance* 75.45; Estimated Glomerular Filt Rate 81 ml/min; Lipase* 363 U/L (23-300)
--- OUTSIDE RECORDS SUMMARY | 2023-04-19 02:28 | XMS_ITS | Continuity of Care Document ---
Author Name Unknown Organization [facility] Address [address] [address] [place] [address] Phone Care Team Providers Care Endoscopy Rn Name Role Phone Hari Burns MD, Alex Unavailable Unavailabl e Allergies, Adverse Reactions, Alerts Substance Reaction Status [...] 12 Ercp; W/sphincterotomy/papillo 12 Ercp; W/press Measur-sphincter 12 Ercp; W/endo Retro Insrt Tube/ 12 Offic/outpt E&m Estab Mod-hi 2 12 [id number] [facility]; W/endo Ultrasound Ex 12 [facility]; W/bx 1/mx Advance Directives Directive Yes / No Effective Date File Name No Information Encounters Encounter Description Practice Location Reason(s) For Visit Diagnoses Date Provider Providers Copied on Encounter [facility], [address] [address], [place], [id number], [place] tel:[phone] [facility] No Information 3 Hari Johnson. [address], [id number], [place]. tel:[phone] [address] [facility], [address] [address], [place], [id number], [place] tel:[phone] [facility] Chronic abdominal painOther chronic painSpasm of sphincter of Oddi 3 Flakito Barnett [address], [id number], [place]. tel:[phone] Offic/outpt E&m Estab Low-mod [facility], [address] [address], [place], [id number], [place] tel:[phone] [facility] GI Symptoms or Concerns (chief complaint) Sphincter of Oddi dysfunction 6 No Information [facility], [address] [address], [place], [id number], [place] tel:[phone] [facility] Sphincter of Oddi dysfunction 6 No Information [facility], [address] [address], [place], [id number], [place] tel:[phone] [facility] No Information 6 No Information Offic/outpt E&m Estab Mod-hi 2 [facility], [address] [address], [place], [id number], [place] tel:[phone] [facility] GI Symptoms or Concerns (chief complaint) Abdominal pain, epigastricAcu te pancreatitis, unspecifiedDi etary counseling and surveillance 6 No Information Offic/outpt E&m Estab Minor [facility], [address] [address], [place], [id number], [place] tel:[phone] [facility] GI Symptoms or Concerns (chief complaint) Spasm Sphincter Of Oddi 4 No Information Referring Provider: Referral Self. Subsqt Hosp-da E&m Minr Compl [facility], [address] [address], [place], [id number], [place] tel:[phone] [facility] No Information 4 No Information Referring Provider: Michael Gonzalez, [address], [address]. tel:[phone] [facility], [address] [address], [place], [id number], [place] tel:[phone] [facility] Acute Pancreatitis 4 No Information [facility], [address] [address], [place], [id number], [place] tel:[phone] [facility] No Information 4 No Information [facility], [address] [address], [place], [id number], [place] tel:[phone] [facility] No Information 4 No Information Referring Provider: Michael Gonzalez, [address], [address]. tel:[phone] Offic/outpt E&m Estab Mod-hi 2 [facility], [address] [address], [place], [id number], [place] tel:[phone] [facility] GI Symptoms or Concerns (chief complaint) Acute Pancreatitis Sep-0 3-201 4 No Information Offic/outpt E&m Estab Low-mod [facility], [address] [address], [place], [id number], [place] tel:[phone] [facility] Sphincter of ODDI spasm (chief complaint) Spasm Sphincter Of Oddi 0 3 No Information Offic/outpt E&m Estab Mod-hi 2 [facility], [address] [address], [place], [id number], [place] tel:[phone] [facility] Pancreatitis (chief complaint) Spasm Sphincter Of Oddi 2 No Information [facility], [address] [address], [place], [id number], [place] tel:[phone] [facility] No Information 2 No Information Offic/outpt E&m Estab Mod-hi 2 [facility], [address] [address], [place], [id number], [place] tel:[phone] [facility] Pancreatitis (chief complaint) Acute Pancreatitis 2 No Information [facility], [address] [address], [place], [id number], [place] tel:[phone] [facility] No Information 2 No Information [...] hypertension Payers Payer name Insurance type Covered alliance party ID Authoriza tion(s) No Information Social History Type Description Quantity Date Captured Comments Sex Female Smoking Status No Information Chief Complaint And Reason For Visit No Information Reason For Referral Reason For Referral No Information Plan Of Treatment Date Type Action Status Goal Lifestyle education regardin g diet completed Referral Ordered: follow-up visit with Any bili provider ordered Referral Ordered: Xray Abdomen; Limited (AP View Only) (KUB) Appointment date/timeframe: 12/06/2015 ordered Referral Ordered: Abdomen X-ray; Limited (AP view only) (KUB) Appointment date/timeframe: 04/05/2014 ordered Referral Ordered: ERCP Appointment date/timeframe: -today ordered Referral Ordered: [facility]; W/endo Ultrasound Ex Appointment date/timeframe: 03/29/2014 ordered Appointment [facility] History Of Present Illness Encounter Date Complaint [...] to Acute Pancreatitis Assessments Type Assessment Date No Information Patient Care Teams Name Effective Dates (start - stop) Status Members No Information
[2023-04-19 02:29] LABS: Anion Gap 12 mEq/L (7-15); Blood Urea Nitrogen* 17 mg/dL (5-24); Calcium* 9.4 mg/dL (8.4-10.6); Carbon Dioxide* 19 mmol/L (20-32); Glucose* 105 mg/dL (60-115); Magnesium* 2.1 mg/dL (1.5-2.6)
--- NOTE | 2023-04-19 02:50 | ED_ITS ---
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 Patient notes that she was hospitalized 2 weeks ago for pancreatitis after having done fairly well for at least a year. She notes that after her discharge on 04/08 she has had occasional episodes of discomfort but nothing persistent until yesterday. Yesterday she noted increasing discomfort associated with nausea and vomiting. She has not had a fever nor has she had any diarrhea. She is supposed to see [facility] on April 24 as she likely needs a repeat sphincterotomy. She has Dilaudid which she takes at home 4 mg but she ran out and the pain has not been controlled with this medication. Tatum denies any fever, cough. She notes normal stools. She is fairly uncomfortable in all positions. Related Data Home Medications Medication Instructions Recorded Confirmed albuterol sulfate 90 mcg/actuation 2 puff inhalation QID PRN 02/11/22 04/19/23 aerosol inhaler shortness of breath or wheezing atorvastatin 20 mg tablet 20 mg PO HS 02/11/22 04/19/23 diphenhydramine HCl 25 mg capsule 25 - 50 mg PO Q6H PRN 04/06/23 04/19/23 (Benadryl) duloxetine 60 mg capsule,delayed 60 mg PO HS 04/06/23 04/19/23 release epinephrine 0.3 mg/0.3 mL 0.3 mg IM ONCE PRN allergies 04/06/23 04/19/23 injection, auto-injector tacrolimus 0.1 % topical ointment 1 applic topical BID PRN 04/06/23 04/19/23 (Protopic) cetirizine 5 mg tablet 5 mg PO DAILY 04/19/23 04/19/23 fexofenadine 60 mg tablet (Allergy 60 mg PO BID 04/19/23 04/19/23 Relief (fexofenadine)) Previous Rx's Medication Instructions Recorded hydromorphone 4 mg tablet 4 mg PO Q6H PRN #10 tabs 04/08/23 Allergies Allergy/AdvReac Type Severity Reaction Status Date / Time polyethylene glycol Allergy Anaphylaxis Verified 02/11/22 17:49 fentanyl AdvReac pain Verified 02/11/22 17:49 Review of Systems Status of ROS Reports: 10 or more systems reviewed and unremarkable except as noted in History and below Const Reports: fatigue; Denies: fever or chills Endo Reports: fatigue PFSH PFSH Medical History (Updated 04/21/23 @ 13:03 by Omar Jackson MD) Chronic pain ?G89.29 - Other chronic pain (ICD-10) 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 - Mast cell activation, unspecified (ICD-10) Sphincter of Oddi spasm ?K83.4 - Spasm of sphincter of Oddi (ICD-10) Sphincter of Oddi dysfunction (Unknown) ?K83.4 - Spasm of sphincter of Oddi (ICD-10) Surgical History History of tonsillectomy and adenoidectomy ?Z90.89 - Acquired absence of other organs (ICD-10) Hx of appendectomy ?Z90.49 - Acquired absence of other specified parts of digestive tract (ICD- 10) Hx laparoscopic cholecystectomy ?Z90.49 - Acquired absence of other specified parts of digestive tract (ICD- 10) History of sphincterotomy of sphincter of Oddi ?Z98.890 - Other specified postprocedural states (ICD-10) Family History Sister Danika's disease Sister Raynaud phenomenon Mother Rheumatoid arthritis Erythema multiforme Social History Narrative: 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 Does not drink alcohol or use recreational drugs. Getting medical care through [facility] in [place]. What is your current living situation?: I presently have a place to live Problems where you live: no known problems Problems where you live details: N/A In the past 12 months, utilities in danger of being shut off: no In past 12 months, lack of transportation kept you from medical appts, meetings, work, or getting things needed for daily living: no In the past 12 mos, have been you worried that your food would run out before you had money to buy more?: never true In the past 12 mos, the food you bought just didn't last and you didn't have money to buy more?: never true Highest level of school completed/degree received: Bachelor's degree Smoking Status: Current some day smoker What tobacco products do you use: cigarettes Smoking quit date/years: <= 15 years ago Second hand tobacco smoke exposure: No How often do you have a drink containing alcohol: never How often do you have six or more drinks on one occasion: Never AUDIT-C Alcohol total score: 0 Non-prescribed substance use: denies use Caffeine: Yes How often does anyone, including family, friends and others, physically hurt you : never How often does anyone, including family, friends and others, insult or talk down to you: sometimes How often does anyone, including family, friends and others, threaten you with harm: never How often does anyone, including family, friends and others, scream or curse at you: never service: Yes Exam Narrative: Exam Narrative: Alert and oriented. Tearful and holding abdomen. In moderate distress. Oral cavity with moist mucous membranes. Mentation is normal. Heart with a re gular rate and rhythm and lungs are clear bilaterally. Abdomen is with tenderness in the epigastrium and left upper quadrant. Abdomen is otherwise soft. Moving all extremities. No lower extremity edema. Const: Vital Signs, click to edit/add: Vital Signs - 24 hr 04/19/23 01:47 04/19/23 01:50 Temperature 98.2 F Pulse Rate [Right Pulse Oximeter] 78 Respiratory Rate 18 Blood Pressure [Ri ght Upper Arm] 135/86 Pulse Oximetry 99 99 Oxygen Delivery Me thod Room Air Documenting provider has reviewed patient's vital signs: yes Course Course ED Course: Patient is noted to have history of pancreatitis secondary to sphincter of OD dysfunction. She is status post for sphincterotomy with last intervention in 2016. Patient will have labs to include CBC, comprehensive, lipase. Will start fluids as well as IV Dilaudid and Zofran. Reevaluation(s) Reevaluation #1: Patient is requesting further pain medication. Will repeat Dilaudid 0.5 mg and use Toradol 15 mg IV as an adjunct. Lipase is elevated to 363.. Previous value was 244. At this point given past history will not subject patient to CT or radiological studies but would rather trend lab values. Vital Signs Vital signs: Initial Vital Signs Temperature 98.2 F 04/19/23 01:47 Temperature Source Temporal Artery Scan 04/19/23 01:47 Pulse Rate 78 04/19/23 01:47 Respiratory Rate 18 04/19/23 01:47 Blood Pressure 135/86 04/19/23 01:47 Blood Pressure Mean 102 04/19/23 01:47 Blood Pressure Position Sitting 04/19/23 01:47 Pulse Oximetry 99 04/19/23 01:47 Oxygen Delivery Method Room Air 04/19/23 01:47 Vital Signs Temperature 98.2 F 04/19/23 01:47 Pulse Rate 78 04/19/23 01:47 Respiratory Rate 18 04/19/23 01:47 Blood Pressure 135/86 04/19/23 01:47 Pulse Oximetry 99 04/19/23 01:47 Oxygen Delivery Method Room Air 04/19/23 01:47 Temperature 98.3 F 04/21/23 20:04 Pulse Rate 66 04/21/23 20:04 Respiratory Rate 18 04/21/23 20:04 Blood Pressure 122/78 04/21/23 20:04 Pulse Oximetry 97 04/21/23 20:04 Oxygen Delivery Method Room Air 04/21/23 20:04 MDM - Abdominal Pain MDM Narrative Medical decision making narrative: 1. Pancreatitis-likely secondary to sphincter of OD dysfunction. Lipase is elevated at 3 6 3. Pain is improved with Dilaudid fluids and Toradol. White count is normal at this time. Vital signs stable. 2. History of mast cell activation 3. Splenomegaly thought to be secondary to 2. 4. Disposition-outpatient admission to medical-surgical floor under the care of her eyes and hospitalist. Dictation done with voice recognition, and as a result, wrong word or [id number] substitutions may have occurred.? There may be errors in the script that have gone undetected.? Please consider this when interpreting information found in this chart. Medical Records Attestation: I reviewed the patient's medical records. Lab Data Attestation: I reviewed the patient's lab results. Labs: Lab Results 04/19/23 04/19/23 Range/Units 01:55 01:59 WBC 10.11 (4.50-11.00) K/uL RBC 4.98 (4.00-5.20) m/uL Hgb 14.1 (12.0-16.0) gm/dL Hct 41.1 (33.0-51.0) % MCV 83 (80-100) fL MCH 28 (26-34) pg MCHC 34 (32-36) gm/dL RDW Coeff of Declan 12.4 (11.5-15.5) % Plt Count 413 (140-440) K/uL Neut % (Auto) 60.6 (42.0-72.0) % Lymph % (Auto) 29.3 (20-44) % Cla[place]orne % (Auto) 6.8 (0.0-11.0) % Eos % (Auto) 2.2 (0.0-7.0) % Baso % (Auto) 0.6 (0.0-3.0) % Neut # (Auto) 6.13 (1.7-7.0) K/uL Lymph # (Auto) 2.96 H (0.90-2.90) K/uL Cla[place]orne # (Auto) 0.70 (0.00-0.90) K/UL Eos # (Auto) 0.22 (0.00-0.50) K/uL Baso # (Auto) 0.06 (0.00-0.30) K/uL Abs Immat Gran (auto) 0.05 (0.00-0.30) K/uL Imm/Tot Granulo (auto) 0.5 % Sodium 135 (135-149) mmol/L Potassium 4.2 (3.6-5.1) mmol/L Chloride 104 (96-114) mmol/L Carbon Dioxide 19 L (20-32) mmol/L Anion Gap 12 (7-15) mEq/L BUN 17 (5-24) mg/dL Creatinine 0.9 (0.5-1.5) mg/dL Estimated Creat Clear 75.45 Estimated GFR 81 ml/min Glucose 105 (60-115) mg/dL Calcium 9.4 (8.4-10.6) mg/dL Magnesium 2.1 (1.5-2.6) mg/dL Triglycerides 416 H (40-149) mg/dL Lipase 363 H (23-300) U/L Discharge Plan Discharge Clinical Impression: Elevated lipase Abdominal pain Qualifiers: Abdominal location: upper abdomen, unspecified Qualified Code(s): R10.10 - Upper abdominal pain, unspecified Acute pancreatitis Qualifiers: Pancreatitis type: other Acute pancreatitis complication: unspecified Qualified Code(s): K85.80 - Other acute pancreatitis without necrosis or infection Patient Disposition: Admitted As Observation
[2023-04-19] MEDS: KETOROLAC 15 MG/ML inj IVP ×2 (03:17→18:58)
--- NOTE | 2023-04-19 03:24 | ED.NURSE ---
nurse report given to Chang CALDERON
--- NOTE | 2023-04-19 04:58 | P.IMHP_ITS ---
Hospitalist- H&P: HPI History of Present Illness Date Seen: 04/19/23 Chief complaint: Abdominal Pain Narrative: Tatum Taylor is a 42 year old female Is [facility].She is seen with the assistance of nursing staff. She has been admitted through the emergency room. 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 She was hospitalized approximately 2 weeks ago treated conse rvatively and improved. She has an appointment with gastroenterology on of this week. Patient was doing reasonably well until about 2 days ago started having increasing abdominal pain is now increased to the point she could no longer tolerate it. She is on oral narcotics at home at hydromorphone at 4 mg every 4 hours as needed. She came into the emergency room was evaluated she was found to have an elevated lipase. She is now being admitted for pain control. She denies fevers chills chest pain shortness of breath or other symptoms. She does not have any other complaints of. Review of Systems Narrative: A complete review of systems was performed positive (negatives in the HPI. 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 - Mast cell activation, unspecified (ICD-10) Sphincter of Oddi spasm ?K83.4 - Spasm of sphincter of Oddi (ICD-10) Sphincter of Oddi dysfunction (Unknown) ?K83.4 - Spasm of sphincter of Oddi (ICD-10) Surgical History History of tonsillectomy and adenoidectomy ?Z90.89 - Acquired absence of other organs (ICD-10) Hx of appendectomy ?Z90.49 - Acquired absence of other specified parts of digestive tract (ICD- 10) Hx laparoscopic cholecystectomy ?Z90.49 - Acquired absence of other specified parts of digestive tract (ICD- 10) History of sphincterotomy of sphincter of Oddi ?Z98.890 - Other specified postprocedural states (ICD-10) Family History Sister Danika's disease Sister Raynaud phenomenon Mother Rheumatoid arthritis Erythema multiforme Social History Narrative: 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 Does not drink alcohol or use recreational drugs. Getting medical care through [facility] in [place]. What is your current living situation?: I presently have a place to live Problems where you live: no known problems Problems where you live details: N/A In the past 12 months, utilities in danger of being shut off: no In past 12 months, lack of transportation kept you from medical appts, meetings, work, or getting things needed for daily living: no In the past 12 mos, have been you worried that your food would run out before you had money to buy more?: never true In the past 12 mos, the food you bought just didn't last and you didn't have money to buy more?: never true Highest level of school completed/degree received: Bachelor's degree Smoking Status: Current some day smoker What tobacco products do you use: cigarettes Smoking quit date/years: <= 15 years ago Second hand tobacco smoke exposure: No How often do you have a drink containing alcohol: never How often do you have six or more drinks on one occasion: Never AUDIT-C Alcohol total score: 0 Non-prescribed substance use: denies use Caffeine: Yes How often does anyone, including family, friends and others, physically hurt you : never How often does anyone, including family, friends and others, insult or talk down to you: sometimes How often does anyone, including family, friends and others, threaten you with harm: never How often does anyone, including family, friends and others, scream or curse at you: never service: Yes Meds Home Medications and Allergies Home Medications Medication Instructions Recorded Confirmed Type albuterol sulfate 90 mcg/actuation 2 puff inhalation QID PRN 02/11/22 04/06/23 History aerosol inhaler shortness of breath or wheezing atorvastatin 20 mg tablet 20 mg PO HS 02/11/22 04/06/23 History cetirizine 10 mg tablet (Zyrtec) 20 mg PO ONCE PRN 02/11/22 04/06/23 History fexofenadine 180 mg tablet 180 mg PO BID 02/11/22 04/06/23 History fluticasone 250 mcg-salmeterol 50 1 inh inhalation Q12H 02/11/22 04/06/23 History mcg/dose blistr powdr for inhalation hydroxyzine HCl 25 mg tablet 25 - 50 mg PO HS PRN 02/11/22 04/06/23 History lorazepam 0.5 mg tablet 0.5 - 1 mg PO Q8H PRN 02/11/22 04/06/23 History diphenhydramine HCl 25 mg capsule 25 - 50 mg PO Q6H PRN 04/06/23 04/06/23 History (Benadryl) duloxetine 60 mg capsule,delayed 60 mg PO HS 04/06/23 04/06/23 History release epinephrine 0.3 mg/0.3 mL 0.3 mg IM ONCE PRN allergies 04/06/23 04/06/23 History injection, auto-injector tacrolimus 0.1 % topical ointment 1 applic topical BID PRN 04/06/23 04/06/23 History (Protopic) Allergies Allergy/AdvReac Type Severity Reaction Status Date / Time polyethylene glycol Allergy Anaphylaxis Verified 02/11/22 17:49 fentanyl AdvReac pain Verified 02/11/22 17:49 Exam Narrative: Exam Narrative: Tatum is alert awake no acute distress she looks reasonably comfortable. She does not look toxic she is seen lying in bed. Her head is atraumatic normocephalic pupils equal reactive mucous membranes are moist tongue and uvula midline Neck is soft and supple no JVD no adenopathy per nursing staff Heart regular rate and rhythm I do not appreciate any murmurs rubs or gallops Lungs are clear to auscultation with good air movement Abdomen is tender in the epigastric left lower quadrant area no rebound guarding or peritoneal signs bowel sounds are present Extremities warm without cyanosis clubbing edema Cranial nerves II through XII appear to be grossly intact, she moves all of her extremities equally. No rashes or petechiae seen or felt Const: Vital Signs, click to edit/add: Vital Signs - 24 hr 04/19/23 01:47 04/19/23 01:50 04/19/23 03:17 Temperature 98.2 F 98.2 F Pulse Rate [Right Pulse Oximeter] 78 Respiratory Rate 18 Blood Pressure [Ri ght Arm] Blood Pressure [Ri ght Upper Arm] 135/86 Pulse Oximetry 99 99 Oxygen Delivery Me thod Room Air 04/19/23 03:33 04/19/23 03:34 04/19/23 03:35 Temperature 98.2 F 98.2 F 98.2 F Pulse Rate [Right Pulse Oximeter] 81 65 81 Respiratory Rate 18 16 18 Blood Pressure [Ri ght Arm] 110/72 Blood Pressure [Ri ght Upper Arm] 125/78 125/78 Pulse Oximetry 99 98 Oxygen Delivery Me thod Room Air Room Air Hospitalist - H&P: Result Labs Labs: Short CBC 04/19/23 Range/Units 01:59 WBC 10.11 (4.50-11.00) K/uL Hgb 14.1 (12.0-16.0) gm/dL Hct 41.1 (33.0-51.0) % Plt Count 413 (140-440) K/uL BMP 04/19/23 01:55 Sodium 135 Potassium 4.2 Chloride 104 Carbon Dioxide 19 L BUN 17 Creatinine 0.9 Glucose 105 Calcium 9.4 Assessment and Plan Assessment and plan (1) Acute pancreatitis: Status: Acute (2) Abdominal pain: Status: Acute (3) Elevated lipase: Status: Acute (4) Mast cell activation syndrome: Status: Chronic (5) Sphincter of Oddi dysfunction: Status: Acute Plan Acute pancreatitis?we will treat the usual fashion. N.p.o., IV fluids, pain medications. Likely secondary to sphincter of Oddi dysfunction. I will add on triglyceride just in case this is caused by that. Anticipate this to improve in the next 2 to 4 days. Patient is scheduled to see gastroenterology this . Suspect she will need additional work with her sphincter of Oddi. Abdominal pain?thought to be secondary to pancreatitis IV hydromorphone 0.5 mg IV every hour as needed in addition to the hydromorphone that she is normally on. Elevated lipase?supporting the diagnosis of pancreatitis Mast cell activation syndrome?seems stable. We are whether this is related to acute pancreatitis. Sphincter of Oddi dysfunction?likely the cause of her acute pancreatitis. Anticipate her seeing GI on . DVT prophylaxis will use subcutaneous Lovenox CODE STATUS was reviewed on admission she wishes to be a full code Telehealth Visit:? Today's History and Physical is provided via interactive telehealth by (David Zacarias DO, Pharm. D.).? Patient is located at [facility].? Provider is located at [facility].? Nursing staff assisted with the patient's exam. The visit being done today meets criteria for a telehealth visit and the patient or patient?s parent/guardian is aware the visit is a telehealth visit. Camera Start Time: 4:22 AM Camera End Time: 4:35 AM David Zacarias DO Pharm. D.
[2023-04-19] MEDS: LACTATED RINGERS 1000 ML 1,000 ML 150 ML IV ×4 (05:12→21:23)
--- NOTE | 2023-04-19 06:20 | PC.NURSE ---
Shift note: Pt arrived to the floor at 0330 on a wheelchair in a conscious state. Alert and oriented on arrival, v/s monitored and recorded as per chart. Pt presented with abdominal pain, n/v which started for the past 3 days but pain appears to increase in intensity. Pain was rated at 3 on admission and has remained so for the rest of the shift. No nausea, vomiting and fever noted. Tele-med assessment done by Dr. Hernandez. Patient is on NPO status.
[2023-04-19 07:13] LABS: Triglycerides* 416 mg/dL (40-149)
[2023-04-19 08:10] LABS: Basophils Absolute Auto 0.04 K/uL (0.00-0.30); Basophils Percent Auto 0.5 % (0.0-3.0); Eosinophils Absolute Auto 0.26 K/uL (0.00-0.50); Eosinophils Percent Auto 3.3 % (0.0-7.0); Hematocrit 36.5 % (33.0-51.0); Hemoglobin* 12.3 gm/dL (12.0-16.0); Immature Granulocytes Abs Auto 0.02 K/uL (0.00-0.30); Immature Granulocytes Pct Auto 0.3 %; Lymphocytes Absolute Auto 2.52 K/uL (0.90-2.90); Lymphocytes Percent Auto 32.4 % (20-44); Mean Corpuscular HGB Conc 34 gm/dL (32-36); Mean Corpuscular Hemoglobin 28 pg (26-34); Mean Corpuscular Volume 83 fL (80-100); Monocytes Percent Auto 7.5 % (0.0-11.0); Neutrophils Absolute Auto 4.36 K/uL (1.7-7.0); Platelet Count* 339 K/uL (140-440); RDW Coefficient of Variation % 12.3 % (11.5-15.5); Red Blood Count 4.38 m/uL (4.00-5.20); White Blood Count* 7.78 K/uL (4.50-11.00)
[2023-04-19 08:12] LABS: Slide Review Reflex No
[2023-04-19 08:22] LABS: Albumin* 3.6 g/dL (3.3-5.0); Chloride* 105 mmol/L (96-114)
[2023-04-19 08:23] LABS: Potassium* 4.1 mmol/L (3.6-5.1); Sodium* 136 mmol/L (135-149)
[2023-04-19 08:25] LABS: Anion Gap 10 mEq/L (7-15); Aspartate Amino Transferase* 26 U/L (12-35); Bilirubin Direct* 0.1 mg/dL (0.0-0.5); Bilirubin Total* 0.6 mg/dL (0.1-1.5); Blood Urea Nitrogen* 14 mg/dL (5-24); Carbon Dioxide* 21 mmol/L (20-32); Creatinine* 0.9 mg/dL (0.5-1.5); Est. Creatinine Clearance* 75.45; Estimated Glomerular Filt Rate 81 ml/min; Glucose* 92 mg/dL (60-115); Total Protein* 6.3 g/dL (6.0-8.3)
[2023-04-19 08:26] LABS: Alanine Aminotransferase* 26 U/L (4-35); Alkaline Phosphatase* 41 U/L (40-150); Calcium* 8.8 mg/dL (8.4-10.6)
[2023-04-19] MEDS: HYDROmorphone 2 MG TABLET 4 MG PO ×3 (09:15→21:24)
--- NOTE | 2023-04-19 13:32 | P.IMPN_ITS ---
Progress Note: A&P Assessment and plan (1) Acute pancreatitis: Problem details: Acute on chronic pancreatitis suspected to be due to sphincter of Oddi dysfunction. Recommend arrangement with Gastroenterology for consideration of assessment for sphincterotomy and or stent placement. Outpatient appointment arranged for Apr 24 Status: Acute (2) Sphincter of Oddi dysfunction: Status: Acute Plan Continue inpatient management with IV fluids, IV opioids and transition to oral fluids and oral opioids as tolerated. Time Spent With Patient Total time spent: Total time spent today is 35 minutes, 25 minutes in coordination of care and discussing with patient ongoing management of pancreatitis and pain Subjective Date Seen: 04/19/23 Interval history: Tatum Taylor is a 42 year old female admitted to the hospital during the night with typical symptoms of recurrent pancreatitis. She has been admitted through the emergency room. 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 She was hospitalized approximately 2 weeks ago treated conservatively and improved. She has an appointment with gastroenterology on of this week. Patient was doing reasonably well until about 2 days ago started having increasing abdominal pain is now increased to the point she could no longer tolerate it. She is on oral narcotics at home at hydromorphone at 4 mg every 4 hours as needed. She came into the emergency room was evaluated she was found to have an elevated lipase. She is now being admitted for pain control. She denies fevers chills chest pain shortness of breath or other symptoms. She reports fair pain control overnight. Exam Narrative: Exam Narrative: She is alert and appears in mild distress from pain. Oriented to her circumstances. Breathing is unlabored. Respirations are clear to auscultation. Cardiovascular: S1, S2, regular rate and rhythm. Abdomen: Bowel sounds are present but diminished. Abdomen is soft. She is exquisitely tender over her epigastrium. Extremities without edema. Const: Vital Signs, click to edit/add: Vital Signs - 24 hr 04/19/23 01:47 04/19/23 01:50 04/19/23 03:17 Temperature 98.2 F 98.2 F Pulse Rate [Right Pulse Oximeter] 78 Respiratory Rate 18 Blood Pressure [Le ft Arm] Blood Pressure [Ri ght Arm] Blood Pressure [Ri ght Upper Arm] 135/86 Pulse Oximetry 99 99 Oxygen Delivery Me thod Room Air 04/19/23 03:33 04/19/23 03:34 04/19/23 03:35 Temperature 98.2 F 98.2 F 98.2 F Pulse Rate [Right Pulse Oximeter] 81 65 81 Respiratory Rate 18 16 18 Blood Pressure [Le ft Arm] Blood Pressure [Ri ght Arm] 110/72 Blood Pressure [Ri ght Upper Arm] 125/78 125/78 Pulse Oximetry 99 98 Oxygen Delivery Me thod Room Air Room Air 04/19/23 07:00 04/19/23 07:00 04/19/23 11:00 Temperature 98.5 F 98.1 F Pulse Rate [Right Pulse Oximeter] 75 75 61 Respiratory Rate 18 18 18 Blood Pressure [Le ft Arm] 115/66 102/64 Blood Pressure [Ri ght Arm] Blood Pressure [Ri ght Upper Arm] Pulse Oximetry 98 100 Oxygen Delivery Me thod Room Air Room Air Documenting provider has reviewed patient's vital signs: yes Labs Labs: Laboratory Results - last 24 hr 04/19/23 04/19/23 04/19/23 01:55 01:59 08:02 WBC 10.11 7.78 RBC 4.98 4.38 Hgb 14.1 12.3 Hct 41.1 36.5 MCV 83 83 MCH 28 28 MCHC 34 34 RDW Coeff of Declan 12.4 12.3 Plt Count 413 339 Neut % (Auto) 60.6 56.0 Lymph % (Auto) 29.3 32.4 Jackson % (Auto) 6.8 7.5 Eos % (Auto) 2.2 3.3 Baso % (Auto) 0.6 0.5 Neut # (Auto) 6.13 4.36 Lymph # (Auto) 2.96 H 2.52 Jackson # (Auto) 0.70 0.60 Eos # (Auto) 0.22 0.26 Baso # (Auto) 0.06 0.04 Abs Immat Gran (auto) 0.05 0.02 Imm/Tot Granulo (auto) 0.5 0.3 Sodium 135 136 Potassium 4.2 4.1 Chloride 104 105 Carbon Dioxide 19 L 21 Anion Gap 12 10 BUN 17 14 Creatinine 0.9 0.9 Estimated Creat Clear 75.45 75.45 Estimated GFR 81 81 Glucose 105 92 Calcium 9.4 8.8 Magnesium 2.1 Total Bilirubin 0.6 Direct Bilirubin 0.1 AST 26 ALT 26 Alkaline Phosphatase 41 Total Protein 6.3 Albumin 3.6 Triglycerides 416 H Lipase 363 H
--- NOTE | 2023-04-19 15:01 | PC.NURSE ---
End of Shift: Patient pleasant and cooperative. Afebrile. Rating pain in abdomen up to 5-6/10 and PRN Dilaudid given x2. C/o nausea, PRN Zofran x2. No emesis. Taking in small amounts of clear liquids. Up to bathroom and chair with SBA.
[2023-04-19] MEDS: ENOXAPARIN 40 MG/0.4 ML INJ SUBCUT (21:23)
[2023-04-20] MEDS: HYDROmorphone 2 MG TABLET 4 MG PO ×5 (01:36→21:29)
[2023-04-20] MEDS: HYDROmorphone 0.5 mg/0.5 ml inj IVP ×8 (01:37→23:01)
[2023-04-20 03:00] VITALS: BP 114/66; PULSE 70; RESP 20; TEMP 36.8; O2SAT 95
[2023-04-20] MEDS: LACTATED RINGERS 1000 ML 1,000 ML 150 ML IV ×2 (04:27→10:34)
--- NOTE | 2023-04-20 06:13 | PC.NURSE ---
Shift note: Abdominal pain 6/10 treated per eMAR with relief, and pt is able to rest.
[2023-04-20 07:00] VITALS: BP 111/64; PULSE 72; RESP 20; TEMP 36.8; O2SAT 96
[2023-04-20] MEDS: ONDANSETRON 2 MG/ML inj 4 MG IVP ×3 (09:59→23:01)
[2023-04-20 11:00] VITALS: BP 114/76; PULSE 71; RESP 20; TEMP 36.9; O2SAT 97
[2023-04-20 15:00] VITALS: BP 109/74; PULSE 73; RESP 18; TEMP 36.8; O2SAT 98
--- NOTE | 2023-04-20 17:02 | P.IMPN_ITS ---
Progress Note: A&P Assessment and plan (1) Acute pancreatitis: Problem details: Acute on chronic pancreatitis suspected to be due to sphincter of Oddi dysfunction. Recommend arrangement with Gastroenterology for consideration of assessment for sphincterotomy and or stent placement. Outpatient appointment arranged for Apr 24 Status: Acute (2) Sphincter of Oddi dysfunction: Status: Acute (3) Disorder of fluid or electrolyte: Problem details: Mild volume overload today. Will slow down IV fluids. Status: Acute Plan Continue in hospital pending clinical improvement and able to take in p.o. food and fluid. Review with [place] gastroenterology plan for possible sphinct erotomy. Time Spent With Patient Total time spent: Total time spent today is 40 minutes, 30 minutes in coordination of care di scussing with patient other providers ongoing pain management and plan of care for pancreatitis Subjective Date Seen: 04/20/23 Interval history: Tatum Taylor is a 42 year old female admitted to the hospital during the night with typical symptoms of recurrent pancreatitis. She has been ad mitted through the emergency room. 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 She was hospitalized approximately 2 weeks ago treated conservatively and improved. She has an appointment with gastroenterology on of this week. Patient was doing reasonably well until about 2 days ago started having increasing abdominal pain is now increased to the point she could no longer tolerate it. She is on oral narcotics at home at hydromorphone at 4 mg every 4 hours as needed. She came into the emergency room was evaluated she was found to have an elevated lipase. She is now being admitted for pain control. She denies fevers chills chest pain shortness of breath or other symptoms. She reports fair pain control overnight. Today she does not feel significantly improved over yesterday. She did drink some water and had an emesis after that. Exam Narrative: Exam Narrative: She is alert and appears in no distress. She gives her own history. Respirations are clear to auscultation. Abdomen with bowel sounds present. Abdomen is soft with moderately severe epigastric and left upper quadrant pain. Mild lower abdominal pain primarily referred to the epigastrium. Extremities with mild edema. Const: Vital Signs, click to edit/add: Vital Signs - 24 hr 04/19/23 19:43 04/19/23 22:04 04/19/23 23:00 Temperature 98.3 F 98.3 F Pulse Rate [Right Pulse Oximeter] 77 84 84 Respiratory Rate 18 16 16 Blood Pressure [Le ft Arm] 122/81 Blood Pressure [Ri ght Arm] 120/69 Pulse Oximetry 97 97 Oxygen Delivery Me thod Room Air Room Air 04/20/23 03:00 04/20/23 07:00 04/20/23 07:00 Temperature 98.2 F 98.3 F Pulse Rate [Right Pulse Oximeter] 70 72 72 Respiratory Rate 20 20 20 Blood Pressure [Le ft Arm] 114/66 111/64 Blood Pressure [Ri ght Arm] Pulse Oximetry 95 96 Oxygen Delivery Me thod Room Air Room Air 04/20/23 11:00 04/20/23 15:00 04/20/23 15:00 Temperature 98.4 F 98.2 F Pulse Rate [Right Pulse Oximeter] 71 73 73 Respiratory Rate 20 18 18 Blood Pressure [Le ft Arm] Blood Pressure [Ri ght Arm] 114/76 109/74 Pulse Oximetry 97 98 Oxygen Delivery Me thod Room Air Room Air Documenting provider has reviewed patient's vital signs: yes
[2023-04-20] MEDS: LACTATED RINGERS 1000 ML 1,000 ML 75 ML IV (19:25)
[2023-04-20 19:56] VITALS: BP 122/77; PULSE 72; RESP 16; O2SAT 97
[2023-04-20] MEDS: DULOXETINE 30 MG CAPSULE DR 60 MG PO (21:27)
[2023-04-20] MEDS: ATORVASTATIN 10 MG TABLET 20 MG PO (21:28)
[2023-04-20] MEDS: hydrOXYzine pamoate 25 MG CAPSULE PO (23:01)
[2023-04-20 23:08] VITALS: BP 129/82; PULSE 78; RESP 16; TEMP 36.8; O2SAT 95
[2023-04-21] MEDS: ONDANSETRON 2 MG/ML inj 4 MG IVP ×2 (02:44→15:38)
[2023-04-21] MEDS: hydrOXYzine pamoate 25 MG CAPSULE PO (02:44)
[2023-04-21] MEDS: HYDROmorphone 0.5 mg/0.5 ml inj IVP ×5 (02:44→21:09)
[2023-04-21 02:45] VITALS: BP 124/72; PULSE 81; RESP 18; TEMP 36.9; O2SAT 96
--- NOTE | 2023-04-21 05:18 | PC.NURSE ---
[id number]: Patient cooperative with cares. Rates pain 3-6/10. PRN Dilaudid, Vistaril, Aqua K pad and Aroma therapy patches for relief. Zofran for intermittent nausea. Patient unable to ambulate in [place] d/t increased pain. Independent in room.
[2023-04-21 07:35] VITALS: BP 126/62; PULSE 60; RESP 18; TEMP 36.8; O2SAT 95
[2023-04-21] MEDS: LACTATED RINGERS 1000 ML 1,000 ML 75 ML IV ×2 (07:45→20:07)
[2023-04-21] MEDS: HYDROmorphone 2 MG TABLET 4 MG PO ×2 (09:56→21:09)
[2023-04-21 11:20] VITALS: BP 132/82; PULSE 74; RESP 18; TEMP 36.9; O2SAT 96
--- NOTE | 2023-04-21 13:02 | P.IMPN_ITS ---
Progress Note: A&P Assessment and plan (1) Acute pancreatitis: Problem details: Acute on chronic pancreatitis suspected to be due to sphincter of Oddi dysfunction. Recommend arrangement with Gastroenterology for consideration of assessment for sphincterotomy and or stent placement. Outpatient appointment arranged for Apr 24 Status: Acute (2) Sphincter of Oddi dysfunction: Status: Acute (3) Disorder of fluid or electrolyte: Problem details: Mild volume overload today. Will slow down IV fluids. Status: Acute (4) Chronic pain: Problem details: Pending Gastroenterology follow-up review chronic pain plan. Status: Acute Plan Continue in hospital for IV fluids and pain medicines. Advance diet. I have encouraged her to eating and drinking more and more active and walking in the hallway. Time Spent With Patient Total time spent: Total time spent today is 35 minutes, 25 minutes in coordination care and discussing with patient and other providers management of pancreatitis and disposition Subjective Date Seen: 04/21/23 Interval history: Tatum Taylor is a 42 year old female admitted to the hospital during the night with typical symptoms of recurrent pancreatitis. She has been admit jacquelyn through the emergency room. 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 She was hospitalized approximately 2 weeks ago treated conservatively and improved. She has an appointment with gastroenterology on of this week. Patient was doing reasonably well until about 2 days ago started having increasing abdominal pain is now increased to the point she could no longer tolerate it. She is on oral narcotics at home at hydromorphone at 4 mg every 4 hours as needed. She came into the emergency room was evaluated she was found to have an elevated lipase. She is now being admitted for pain control. She denies fevers chills chest pain shortness of breath or other symptoms. She reports fair pain control overnight. Today she is modestly better. She has tolerated a little bit of water. Exam Narrative: Exam Narrative: She is alert and appears in no obvious distress. Abdomen: Bowel sounds are present. Abdomen is soft. Epigastric tenderness is significantly improved today. Const: Vital Signs, click to edit/add: Vital Signs - 24 hr 04/20/23 15:00 04/20/23 15:00 04/20/23 19:56 Temperature 98.2 F Pulse Rate [Right Pulse Oximeter] 73 73 72 Respiratory Rate 18 18 16 Blood Pressure [Le ft Arm] Blood Pressure [Ri ght Arm] 109/74 122/77 Pulse Oximetry 98 97 Oxygen Delivery Me thod Room Air Room Air 04/20/23 23:08 04/21/23 02:45 04/21/23 07:35 Temperature 98.3 F 98.4 F 98.2 F Pulse Rate [Right Pulse Oximeter] 78 81 60 Respiratory Rate 16 18 18 Blood Pressure [Le ft Arm] 129/82 124/72 126/62 Blood Pressure [Ri ght Arm] Pulse Oximetry 95 96 95 Oxygen Delivery Me thod Room Air Room Air Room Air 04/21/23 11:20 Temperature 98.4 F Pulse Rate [Right Pulse Oximeter] 74 Respiratory Rate 18 Blood Pressure [Le ft Arm] Blood Pressure [Ri ght Arm] 132/82 Pulse Oximetry 96 Oxygen Delivery Me thod Room Air Documenting provider has reviewed patient's vital signs: yes
[2023-04-21 14:08] LABS: C.Difficile Negative (Negative); CDIFFEPI 027 PRESUMPTIVE NEGATIVE (Negative)
[2023-04-21 15:00] VITALS: BP 121/79; PULSE 80; RESP 16; TEMP 36.9; O2SAT 98
--- NOTE | 2023-04-21 19:53 | PC.NURSE ---
Pt up independently. Rating pain 3-710, see MAR for medication administration with relief. Diaherra entire morning. C-diff sample came back negative(-), Stool pathogen pending. Send out will go out 04/22 with 1-3 turn around results.
[2023-04-21 20:04] VITALS: BP 122/78; PULSE 66; RESP 18; TEMP 36.8; O2SAT 97
[2023-04-21] MEDS: ATORVASTATIN 10 MG TABLET 20 MG PO (21:08)
[2023-04-21] MEDS: DULOXETINE 30 MG CAPSULE DR 60 MG PO (21:09)
--- NOTE | 2023-04-21 23:21 | PC.NURSE ---
VSS, RA. Epigastric pain- 5-7 despite IV dilaudid (x3) and oral dilaudid (x1) given & aqua K pack. Clear diet- took in 2 sprites and vegetable broth. Voiding WNL, frequent liquid stools. [id number]. Per pt is slowing from this AM. PIV in right FA- LR @ 75 cc/hr. Up independently in room, walked x2. Will continue to monitor, follow POC, and keep pt and family updated. Mayra Chavez RN
[2023-04-22 01:15] VITALS: BP 106/65; PULSE 76; RESP 16; TEMP 36.8; O2SAT 95
[2023-04-22] MEDS: HYDROmorphone 0.5 mg/0.5 ml inj IVP ×6 (04:30→23:34)
--- NOTE | 2023-04-22 05:41 | PC.NURSE ---
[id number]: Patient cooperative with cares. Pain controlled w/PRN Dilaudid. Tolerating clears. Reports loose stools x2. Independent.
[2023-04-22] MEDS: HYDROmorphone 2 MG TABLET 4 MG PO ×5 (05:50→22:38)
--- NOTE | 2023-04-22 06:51 | PC.NURSE ---
[id number]: Patient cooperative w/cares. Pain controlled w/PRN Dilaudid. Independent. Loose stools x2. Tolerating clears.
[2023-04-22] MEDS: ACETAMINOPHEN 325 MG TABLET PO ×3 (07:40→22:38)
[2023-04-22 07:44] VITALS: BP 120/77; PULSE 77; RESP 18; TEMP 36.6; O2SAT 97
[2023-04-22] MEDS: LOPERAMIDE HCL 2 MG CAPSULE PO (07:49)
[2023-04-22] MEDS: CETIRIZINE HCL 10 MG TABLET 5 MG PO (09:15)
[2023-04-22] MEDS: LACTATED RINGERS 1000 ML 1,000 ML 75 ML IV (09:49)
[2023-04-22] MEDS: ONDANSETRON 2 MG/ML inj 4 MG IVP ×2 (11:04→20:53)
[2023-04-22] MEDS: SODIUM CHLORIDE 0.9 % (FLUSH) 10 ML SYRINGE IVF ×2 (11:13→23:35)
[2023-04-22 11:23] VITALS: BP 135/81; PULSE 70; RESP 14; TEMP 36.7; O2SAT 97
[2023-04-22] MEDS: hydrOXYzine pamoate 25 MG CAPSULE PO ×3 (14:57→22:39)
[2023-04-22 15:00] VITALS: BP 120/76; PULSE 73; RESP 16; TEMP 36.6; O2SAT 96
--- NOTE | 2023-04-22 15:22 | PM.IMPN1 ---
Progress Note: A&P Assessment and plan (1) Acute pancreatitis: Problem details: Acute on chronic pancreatitis suspected to be due to sphincter of Oddi dysfunction. Outpatient Gastroenterology appointment on April 24 for consideration of assessment for sphincterotomy and or stent placement. Continue symptomatic treatment in the meantime Status: Acute (2) Sphincter of Oddi dysfunction: Status: Acute (3) Disorder of fluid or electrolyte: Problem details: Volume status appears about right today. Transition to oral food and fluid Status: Acute (4) Chronic pain: Problem details: Pending Gastroenterology follow-up review chronic pain plan. Status: Acute Plan Today will attempt to wean off of IV medications and IV fluids to see if she can maintain her own food and fluid and manage pain and nausea with oral medications. If so will discharge tomorrow in anticipation of outpatient follow-up on . Time Spent With Patient Total time spent: Total time spent today is 35 minutes, 25 minutes in coordination of care and discussing with patient other providers management of pain and outpatient follow-up Subjective Date Seen: 04/22/23 Interval history: Tatum Taylor is a 42 year old female admitted to the hospital during the night with typical symptoms of recurrent pancreatitis. She has been admitted through the emergency room. 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 She was hospitalized approximately 2 weeks ago treated conservatively and improved. She has an appointment with gastroenterology on of this week. Patient was doing reasonably well until about 2 days ago started having increasing abdominal pain is now increased to the point she could no longer tolerate it. She is on oral narcotics at home at hydromorphone at 4 mg every 4 hours as needed. She came into the emergency room was evaluated she was found to have an elevated lipase. She is now being admitted for pain control. She denies fevers chills chest pain shortness of breath or other symptoms. She reports fair pain control overnight. Today she is reporting a little more energy. She has been walking the hallway. She is drinking a little more fluid. Her pain is no better. Exam Narrative: Exam Narrative: She is alert and appears in no distress. Palpation or abdomen shows moderate epigastric tenderness primarily. She is observed to walk in the hallway Const: Vital Signs, click to edit/add: Vital Signs - 24 hr 04/21/23 20:04 04/22/23 01:15 04/22/23 07:44 Temperature 98.3 F 98.3 F 98 F Pulse Rate [Right Pulse Oximeter] 66 76 77 Respiratory Rate 18 16 18 Blood Pressure [Le ft Arm] 122/78 Blood Pressure [Ri ght Arm] 106/65 120/77 Pulse Oximetry 97 95 97 Oxygen Delivery Me thod Room Air Room Air Room Air 04/22/23 07:44 04/22/23 11:23 Temperature 98.1 F Pulse Rate [Right Pulse Oximeter] 77 70 Respiratory Rate 18 14 Blood Pressure [Le ft Arm] 135/81 Blood Pressure [Ri ght Arm] Pulse Oximetry 97 Oxygen Delivery Me thod Room Air Documenting provider has reviewed patient's vital signs: yes
--- NOTE | 2023-04-22 19:12 | PC.NURSE ---
End of Shift: Patient pleasant and cooperative. Patient vitally stable, lungs clear, BS WNL, IV SL. Patient independent in room. Patient rates pain at most 5/10, and has now decreased 2-3/10 with scheduled dilauded and atarax, and tylenol x2. Patient also recieved 1 mg of IV dilauded prior to pain medication changes. Patient has consumed clear liquids and 2 yogurts. Patient had 2 loose stool, immodium given x2.
[2023-04-22 19:30] VITALS: BP 118/67; PULSE 75; RESP 18; TEMP 36.8; O2SAT 99
[2023-04-22] MEDS: DULOXETINE 30 MG CAPSULE DR 60 MG PO (20:41)
[2023-04-22] MEDS: ENOXAPARIN 40 MG/0.4 ML INJ SUBCUT (20:41)
[2023-04-22] MEDS: ATORVASTATIN 10 MG TABLET 20 MG PO (20:41)
--- NOTE | 2023-04-22 22:54 | PC.NURSE ---
Shift [id number]- Patient rates pain 4-6/10 this evening. She states 4 is tolerable for her. She also admits to some nausea- zofran administered, q-easy patch given. She is up independently and walks the halls. Increased pain/nausea is after having eaten yogurt earlier.
[2023-04-22 23:35] VITALS: BP 117/80; PULSE 95; RESP 20; TEMP 36.8; O2SAT 96
[2023-04-23] MEDS: PROCHLORPERAZINE 5 MG/ML VIAL IV (00:11)
[2023-04-23] MEDS: SODIUM CHLORIDE 0.9 % (FLUSH) 10 ML SYRINGE IVF (00:11)
[2023-04-23] MEDS: HYDROmorphone 2 MG TABLET 4 MG PO ×3 (02:59→10:56)
[2023-04-23] MEDS: hydrOXYzine pamoate 25 MG CAPSULE PO ×3 (02:59→10:56)
[2023-04-23 03:00] VITALS: BP 117/80; PULSE 73; RESP 16; TEMP 36.5; O2SAT 99
[2023-04-23 06:56] LABS: Basophils Absolute Auto 0.06 K/uL (0.00-0.30); Basophils Percent Auto 1.1 % (0.0-3.0); Eosinophils Absolute Auto 0.12 K/uL (0.00-0.50); Eosinophils Percent Auto 2.1 % (0.0-7.0); Hematocrit 38.6 % (33.0-51.0); Hemoglobin* 13.2 gm/dL (12.0-16.0); Immature Granulocytes Abs Auto 0.01 K/uL (0.00-0.30); Immature Granulocytes Pct Auto 0.2 %; Lymphocytes Absolute Auto 1.69 K/uL (0.90-2.90); Lymphocytes Percent Auto 29.7 % (20-44); Mean Corpuscular HGB Conc 34 gm/dL (32-36); Mean Corpuscular Hemoglobin 28 pg (26-34); Mean Corpuscular Volume 83 fL (80-100); Neutrophils Percent Auto 57.9 % (42.0-72.0); Platelet Count* 350 K/uL (140-440); RDW Coefficient of Variation % 11.8 % (11.5-15.5); Red Blood Count 4.66 m/uL (4.00-5.20); White Blood Count* 5.69 K/uL (4.50-11.00)
--- NOTE | 2023-04-23 07:04 | PC.NURSE ---
Shift note [id number]: Pt is alert and oriented x3. Afebrile. Pt reports pain 8/10 in abdomen after eating yogurt, pain managed with PRN medications, pt put back on full liquid diet. Pt denies SOB and chest pain. Pt reported nausea, managed with PRN medications. Pt denies vomiting but reports dry heaving and stated that the dry heaving was aggravating her pain up to the 8/10 in abdomen.?Pt is up IND in room and slept throughout most of night. ?
[2023-04-23 07:11] LABS: Chloride* 104 mmol/L (96-114)
[2023-04-23 07:12] LABS: Sodium* 137 mmol/L (135-149)
[2023-04-23 07:14] LABS: Est. Creatinine Clearance* 67.91; Estimated Glomerular Filt Rate 72 ml/min
[2023-04-23 07:15] LABS: Alanine Aminotransferase* 32 U/L (4-35); Alkaline Phosphatase* 43 U/L (40-150); Anion Gap 11 mEq/L (7-15); Aspartate Amino Transferase* 31 U/L (12-35); Blood Urea Nitrogen* 8 mg/dL (5-24); Calcium* 8.9 mg/dL (8.4-10.6); Carbon Dioxide* 22 mmol/L (20-32); Glucose* 100 mg/dL (60-115); Lipase* 218 U/L (23-300); Total Protein* 6.9 g/dL (6.0-8.3)
[2023-04-23 07:17] LABS: Slide Review Reflex No
[2023-04-23 07:27] LABS: C Reactive Protein* < 0.5 mg/dL (0.5-1.0)
[2023-04-23 07:43] VITALS: BP 117/74; PULSE 75; RESP 16; TEMP 36.6; O2SAT 97
[2023-04-23] MEDS: ACETAMINOPHEN 325 MG TABLET PO (07:47)
[2023-04-23] MEDS: LOPERAMIDE HCL 2 MG CAPSULE PO (08:55)
--- NOTE | 2023-04-23 11:29 | P.DS_ITS ---
DS: Providers Provider Date Seen: 04/23/23 Date of admission: 04/19/23 07:41 Primary care physician: Not a Local Provider Admitting Clinician: Fareed Jeong MD Consults: 04/19/23 04:04 Consult to Distribution Transformer Assembler [CONS] Routine Comment: Reason for Consult:: Social Service Consult Attending Physician on discharge: Cristopher Jackson MD Date of Discharge: 04/23/23 DS: Diagnosis Discharge Diagnosis (1) Chronic pain: Status: Acute Problem details: Acute on chronic epigastric pain associated with elevated lipase and history of sphincter of Oddi dysfunction and sphincterotomy. Has had 2 hospital admissions in last 3 weeks for pain management. Now pending Gastroenterology follow-up to review plan of care. Has follow-up with [facility] [place] to address chronic pain. (2) Elevated lipase: Status: Acute Problem details: Presumably secondary to acute and chronic pancreatitis (3) Sphincter of Oddi dysfunction: Status: Acute Problem details: Pending Gastroenterology follow-up DS: Summary Hospital Course Hospital Course: 42-year-old female readmitted to the hospital with epigastric pain and nausea. This is been a long-standing and recurrent problem for her. In the past she has been diagnosed with sphincter of Oddi dysfunction and has had previous sphincterotomies which have helped her in the past. This was last done about 7 years ago. She has recently been doing fairly well until the last 2 and half weeks. She was hospitalized here for several days during the 3rd week of March. Went home and came back with recurrence of abdominal pain and nausea. During his hospital stay she has been continued on dilaudid for pain along with ondansetron and hydroxyzine for nausea. She has been encouraged to take in p.o. food and fluid and has had some success with that in the last day. She has weaned off of IV fluids. Status at Discharge Functional status at discharge: independent ambulation Overall status at discharge: patient is progressing back to baseline Time Spent with Patient Time attestation: Total time spent providing and/or coordinating discharge services: Time spent: Greater than 30 minutes Exam Narrative: Exam Narrative: She is alert and appears in no distress. Mood and affect today are brighter. She indicates she is ready to go home. Breathing is unlabored. Abdomen with bowel sounds are active abdomen is soft with mild epigastric tenderness. Const: Vital Signs, click to edit/add: Vital Signs - 24 hr 04/22/23 15:00 04/22/23 15:00 04/22/23 19:30 Temperature 97.9 F 98.3 F Pulse Rate [Right Pulse Oximeter] 73 73 75 Respiratory Rate 16 16 18 Blood Pressure [Le ft Arm] 118/67 Blood Pressure [Ri ght Arm] 120/76 Pulse Oximetry 96 99 Oxygen Delivery Me thod Room Air Room Air 04/22/23 23:35 04/22/23 23:35 04/23/23 03:00 Temperature 98.2 F 97.7 F Pulse Rate [Right Pulse Oximeter] 95 95 73 Respiratory Rate 20 20 16 Blood Pressure [Le ft Arm] 117/80 Blood Pressure [Ri ght Arm] 117/80 Pulse Oximetry 96 99 Oxygen Delivery Me thod Room Air Room Air 04/23/23 07:43 04/23/23 07:43 Temperature 97.8 F Pulse Rate [Right Pulse Oximeter] 75 75 Respiratory Rate 16 16 Blood Pressure [Le ft Arm] Blood Pressure [Ri ght Arm] 117/74 Pulse Oximetry 97 Oxygen Delivery Me thod Room Air Documenting provider has reviewed patient's vital signs: yes DS: Data Data Completed and Pending Labs on day of discharge: Labs from last 24 hours 04/23/23 04/21/23 05:56 16:00 WBC 5.69 RBC 4.66 Hgb 13.2 Hct 38.6 MCV 83 MCH 28 MCHC 34 RDW Coeff of Declan 11.8 Plt Count 350 Neut % (Auto) 57.9 Lymph % (Auto) 29.7 [place] % (Auto) 9.0 Eos % (Auto) 2.1 Baso % (Auto) 1.1 Neut # (Auto) 3.30 Lymph # (Auto) 1.69 [place] # (Auto) 0.50 Eos # (Auto) 0.12 Baso # (Auto) 0.06 Abs Immat Gran (auto) 0.01 Imm/Tot Granulo (auto) 0.2 Sodium 137 Potassium 4.0 Chloride 104 Carbon Dioxide 22 Anion Gap 11 BUN 8 Creatinine 1.0 Estimated Creat Clear 67.91 Estimated GFR 72 Glucose 100 Calcium 8.9 Total Bilirubin 1.0 AST 31 ALT 32 Alkaline Phosphatase 43 C-Reactive Protein < 0.5 L Total Protein 6.9 Albumin 4.0 Lipase 218 Stl C. cayetanensis PCR Pending Stool Rotavirus A PCR Pending Stool Adenovirus (PCR) Pending Stool Astrovirus (PCR) Pending Stool Campylobacter PCR Pending Stool Cryptosporidium PCR Pending Stl E.coli Shiga Tox PCR Pending Stool E coli O157 PCR Pending Stl Enterotoxigenic E PCR Pending Stool EPEC (PCR) Pending Stool EAEC (PCR) Pending Stl E. histolytica PCR Pending Stool Giardia Lamblia PCR Pending Stl P. shigelloides PCR Pending Stool Salmonella PCR Pending Stool Sapovirus (PCR) Pending Stl Shigella/EIEC PCR Pending St Y.enterocolitica PCR Pending Stool Vibrio (PCR) Pending Stl Vibrio cholerae PCR Pending Stl Norovirus GI/GII PCR Pending Discharge Plan Discharge Disposition: Home, Self-Care Date of Admission: 04/19/23 07:41 Attending Provider on Discharge: Omar Jackson Primary Care Provider: Provider,Not a Local Condition: Improved Anticipated Discharge Date/Time: 04/23/23 11:34 Discharge Medications: New ondansetron 4 mg Tablet,Disintegrating 4 mg PO Q6H PRNQty: 30 0RF hydroxyzine pamoate 25 mg Capsule 25 mg PO Q4H PRN (Reason: Abdominal Pain) Qty: 30 0RF hydromorphone 2 mg Tablet 4 mg PO Q4H PRNQty: 60 0RF Continued atorvastatin 20 mg tablet 20 mg PO HS albuterol sulfate 90 mcg/actuation HFA aerosol inhaler 2 puff INHALATION QID PRN (Reason: shortness of breath or wheezing) duloxetine 60 mg capsule,delayed release(DR/EC) 60 mg PO HS epinephrine 0.3 mg/0.3 mL auto-injector 0.3 mg IM ONCE PRN (Reason: allergies) tacrolimus [Protopic] 0.1 % ointment 1 applic topical BID PRN Discontinued fexofenadine [Allergy Relief (fexofenadine)] 60 mg tablet 60 mg PO BID cetirizine 5 mg tablet 5 mg PO DAILY diphenhydramine HCl [Benadryl] 25 mg capsule 25 - 50 mg PO Q6H PRN hydromorphone 4 mg tablet 4 mg PO Q6H PRNQty: 10 0RF Discharge Orders: Discharge Order (Routine); Ordered 04/23/23 Ordered By: Omar Jackson Additional Instructions: Follow-up with [facility] tomorrow and with the [facility] for chronic pain management, appointments as previously scheduled While taking hydroxyzine or Vistaril you should stop taking other antihistamines including cetirizine diphenhydramine and fexofenadine. Follow Up Appointments: Provider,Not a Local [Primary Care Provider] - Forms: [facility] Info Instructions
--- NOTE | 2023-04-23 11:58 | PC.NURSE ---
Discharge: Patient pleasant and cooperative. Patient vitally stable, lungs clear, BS WNL, IV removed, catheter intact. Patient independent in room. Patient rates pain 2-3/10, 4mg of dilauded and visitril given once. Patient urinating and had 1 loose stool, loperamide given. Patient tolerated breakfast eating yougurt, soup, ice cream, and pop. Patient signed belongings sheet and discharge form, patient had no further questions regarding discharge. Patient left the floor by foot to home at 1156.
[2023-04-24 18:47] LABS: Adenovirus PCR Not Detected; Astrovirus PCR Not Detected; Campylobacter PCR Not Detected; Cryptosporidium PCR Not Detected; Cyclospora cayetanensis PCR Not Detected; Entamoeba histolytica PCR Not Detected; Enteroaggregative E coli PCR Not Detected; Enteropathogenic E coli PCR Not Detected; Enterotoxigenic E coli PCR Not Detected; Giardia lamblia PCR Not Detected; Norovirus Gi/GII PCR Not Detected; Plesiomonas shig PCR Not Detected; Rotavirus A PCR Not Detected; Salmonella PCR Not Detected; Sapovirus PCR Not Detected; Shiga toxin E coli PCR Not Detected; Shigella/Enteroinvasive E coli Not Detected; Vibrio PCR Not Detected; Vibrio cholerae PCR Not Detected; Yersinia enterocolitica PCR Not Detected
== END 2023-04-23 11:56 | disposition home or self-care (01) | DRG 440 ==
LOC: ED 03:02 → MEDSURG 03:26
PROVIDERS: Family Medicine; Physician Assistant; Admitting Provider Hospitalist; Emergency Provider Family Medicine; Visit Provider Internal Medicine
DX: K85.80 Other acute pancreatitis without necrosis or infection (principal); K83.4 Spasm of sphincter of Oddi; R74.8 Abnormal levels of other serum enzymes; D89.40 Mast cell activation, unspecified; G89.29 Other chronic pain; R10.84 Generalized abdominal pain
CPT/HCPCS: 36415; 80048; 80053; 80076; 83690; 83735; 84478; 85025; 86140; 87493; 87505; 94761; 99284; A9270; J0780; J1170; J1650; J1885; J2405; J7030; J7120

== ENCOUNTER 2023-04-26 16:15 | Emergency (ER) | payer OTHER, SELFPAY ==
[2023-04-26 16:23] VITALS: BP 133/92; PULSE 87; RESP 20; TEMP 37.1; O2SAT 96; BMI 33.6
--- OUTSIDE RECORDS SUMMARY | 2023-04-26 16:46 | XMS_ITS | Continuity of Care Document ---
Author Name Unknown Organization [facility] Address [address] [address] [place] [address] Phone Care Team Providers Care Kiss Setter Hand Name Role Phone Flakito PEDERSEN, Meagan Miranda Unavailable Unavaila ble Allergies, Adverse Reactions, Alerts Substance Reaction Status Criticality POLYETHYLENE GLYCOL Anaphylactic shock Active No Information latex Rash Active No Information fentanyl Severe abdominal pain Active No Inf ormation codeine Nausea Active No Information INFLUENZA VIRUS VACCINE TV S PLT 2010- (18 YR +) Anaphalaxis Active No Information CEPHALEXIN MONOHYDRATE Diff. breathing / Rash Active No Information Sulfa (Sulfonamide Antibiotics) Rash Active No Information Medications Medication Instructions Dosage Effective Dates (start - stop) Status Comments atorvastatin 20 mg tablet take 20 milligram by oral route every day at bedtime 400 MG - Active Zyrtec 10 mg tablet take 1 tablet by oral route every day as needed 10 MG - Active duloxetine 60 mg capsule,delayed release take 1 capsule by oral route every day 60 MG - Active fexofenadine 180 mg tablet take 1 tablet by oral route 2 times every day 180 MG - Active Wixela Inhub 250 mcg-50 mcg/dose powder for inhalation inhale 1 puff by inhalation route 2 times every day in the morning and evening approximately 12 hours apart 1.00 puff - Active hydroxyzine HCl 25 mg tablet take 1 tablet by oral route 4 times every day as needed 25 MG Oct-05-2023 - Active prednisone 10 mg tablet take 1 tablet by oral route every day as needed 10 MG - Active hyoscyamine 0.125 mg sublingual tablet take 1 Tablet by Sublingual route 4 times every day as needed 1 Tablet - Active Dilaudid 4 mg tablet take 1 - 2 Tablet by oral route once as needed 4 MG - Active EpiPen 0.3 mg/0.3 mL (1:1,000) injection,auto-inje ctor inject 0.3 milliliter by intramuscular route once as needed for anaphylaxis 0.3 MG - Active Ventolin HFA 90 mcg/actuation Aerosol Inhaler inhale 2 puff by inhalation route every 4 - 6 hours as needed - Active Zofran 4 mg Tab take 1 - 2 tablet (4MG) by oral route every 4 hours as needed 4 MG - Active TriNessa (28) 0.18 mg(7)/0.215 mg(7)/0.25 mg(7)-35 mcg tablet take 1 tablet by oral route every day No Longer Active Prilosec 20 mg capsule,delayed release take 1 capsule by oral route every day before a meal No Longer Active Zantac 75 mg tablet take 1 tablet by oral route every day with a glass of water No Longer Active Benadryl 25 mg capsule take 2 capsule by ORAL route every day as needed 50 MG No Longer Active Senna-S 8.6 mg-50 mg tablet take 1 Tablet by ORAL route every day as needed 1 Tablet No Longer Active Bisac-Evac 10 mg Rectal Suppository insert 1 suppository (10MG) by rectal route every day for no BM x3 10 MG No Longer Active Ativan 0.5 mg tablet take 1 tablet (0.5MG) by ORAL route 1 - 2 times every day as needed 0.5 MG No Longer Active Multiple Vitamins Daily tablet take 1 tablet by oral route every day with food No Longer Active Aleve 220 mg tablet take 1 Tablet by Oral route every 8 - 12 hours PRN 1 Tablet No Longer Active Vitamin D3 1,000 unit tablet take 1 Tablet by Oral route every day 1 Tablet No Longer Active Miralax 17 gram/dose Oral Powder take 15 milliliter (17G) by ORAL route every day powder mixed with 8 oz. water, juice, soda, coffee, or tea 17 G No Longer Active Procedures Procedure Date Offic/outpt E&m New [facility] Offic/outpt E&m Estab Low-mod 6 Ercp; W/press Measur-sphincter 16 ERCP w/stent & sphinc Offic/outpt E&m Estab Mod-ks 2 16 Offic/outpt E&m Estab Minor Subsqt Hosp-da E&m Minr Compl 4 Ugi Endo; W/endo Ultrasound Ex 14 Ercp; W/press Measur-sphincter 14 ERCP w/stent & sphinc Offic/outpt E&m Estab Mod-hi 2 14 Offic/outpt E&m Estab Low-mod 3 Offic/outpt E&m Estab Mod-ks 2 12 Routine Serum Collection [id number] Lipase [...] Diagnoses Date Provider Providers Copied on Encounter [facility], [address] [address], [place], [id number], [place] tel:[phone] [facility] No Information 3 Flakito Barnett [address] [facility], [address], [id number], [place]. tel:[phone] Offic/outpt E&m New Mod-hi [facility], [address] [address], [place], [id number], [place] tel:[phone] [facility] GI Symptoms or Concerns (chief complaint) Recurrent acute pancreatitis 3 Flakito Barnett [address], [id number], [place]. tel:[phone] Referring Provider: Referral Self. [facility], [address] [address], [place], [id number], [place] tel:[phone] [facility] No Information 3 Hari Johnson. [address] [facility], [facility] [address], [place], [place], [id number], [place]. tel:[phone] [facility], [address] [address], [place], [id number], [place] tel:[phone] [facility] Chronic abdominal painOther chronic painSpasm of sphincter of Oddi 3 Flakito Barnett [address] [facility], [facility] [address], [place], [place], [id number], [place]. tel:[phone] Offic/outpt E&m Estab Low-mod [facility], [address] [address], [place], [id number], [place] tel:[phone] [facility] GI Symptoms or Concerns (chief complaint) Sphincter of Oddi dysfunction 6 No Information [facility], [address] [address], [place], [id number], [place] tel:[phone] [facility] Sphincter of Oddi dysfunction 6 No Information [facility], [address] [address], [place], [id number], [place] tel:[phone] [facility] No Information 6 No Information Offic/outpt E&m Estab Mod-hi 2 [facility], [address] [address], [place], [id number], [place] tel:[phone] [facility] GI Symptoms or Concerns (chief complaint) Abdominal pain, epigastricAcu te pancreatitis, unspecifiedDi etary counseling and surveillance 6 No Information Offic/outpt E&m Estab Minor [facility], [address] [address], [place], [id number], [place] tel:[phone] [facility] GI Symptoms or Concerns (chief complaint) Spasm Sphincter Of Oddi 4 No Information Referring Provider: Referral Self. Subsqt Hosp-da E&m Minr Compl [facility], [address] [address], [place], [id number], [place] tel:[phone] [facility] No Information 4 No Information Referring Provider: Michael Gonzalez, [address], [address]. tel:[phone] [facility], [address] [address], [place], [id number], [place] tel:[phone] [facility] Acute Pancreatitis 4 No Information [facility], [address] [address], [place], [id number], [place] tel:[phone] [facility] No Information 4 No Information [facility], [address] [address], [place], [id number], [place] tel:[phone] [facility] No Information 4 No Information Referring Provider: Michael Gonzalez[address], [address]. tel:[phone] Offic/outpt E&m Estab Mod-hi 2 [facility], [address] [address], [place], [id number], [place] tel:[phone] [facility] GI Symptoms or Concerns (chief complaint) Acute Pancreatitis Sep-0 4 No Information Offic/outpt E&m Estab Low-mod [facility], [address] [address], [place], [id number], [place] tel:[phone] [facility] Sphincter of ODDI spasm (chief complaint) Spasm Sphincter Of Oddi 3 No Information Offic/outpt E&m Estab Mod-hi 2 [facility], [address] [address], [place], [id number], [place] tel:[phone] [facility] Pancreatitis (chief complaint) Spasm Sphincter Of Oddi 2 No Information [facility] [employer] [facility] [place], [address] [address], [place], [id number], [place] tel:[phone] [facility] No Information 2 No Information Offic/outpt E&m Estab Mod-hi 2 [facility], [address] [address], [place], [id number], [place] tel:[phone] [facility] Pancreatitis (chief complaint) Acute Pancreatitis 2 No Information [facility] [employer] [facility], [address] [address], [place], [id number], [place] tel:[phone] [facility] No Information 2 No Information Family History [...] well Mother Problem (finding) Alive and well Mother Problem (finding) Liver disease Mother Problem (finding) Gallbladder disease Son Problem (finding) Asthma Sister Problem (finding) Alive and well Son Problem (finding) Alive and well Brother Problem (finding) Alive and well Mother Problem (finding) hypertension Sister Problem (finding) Thyroid disorder Immunizations Vaccine Date Status Comments SARS-COV-2 (COVID-19) vaccin e, vector non-replicating, recombinant spike protein-Ad26, preservative free, 0.5 mL administered Note: [facility] bi- directional interface ; Source: Other Registry SARS-COV-2 (COVID-19) vaccin e, vector non-replicating, recombinant spike protein-Ad26, preservative free, 0.5 mL administered Note: [facility] bi- directional interface ; Source: Other Registry SARS-COV-2 (COVID-19) vaccin e, vector non-replicating, recombinant spike protein-Ad26, preservative free, 0.5 mL administered Note: [facility] bi- directional interface ; Source: Other Registry SARS-COV-2 (COVID-19) vaccin e, mRNA, spike protein, LNP, preservative free, 30 mcg/0.3mL dose administered Note: [facility] bi-direct ional interface ; Source: Other Registry tetanus and diphtheria toxoi ds, adsorbed, preservative free, for adult use (5 Lf of tetanus toxoid and 2 Lf of diphtheria toxoid) administered Note: [facility] bi-direct ional interface ; Source: Other Registry tetanus toxoid, reduced diphtheria toxoid, and acellular pertussis vaccine, adsorbed administered Note: [facility] b i-directional interface ; Source: Other Registry Payers Payer name Insurance type Covered democrat ID Authoriza tion(s) No Information Social History Type Description Quantity Date Captured Comments Sex Female Smoking Status No Information Chief Complaint And Reason For Visit No Information Reason For Referral Reason For Referral No Information Plan Of Treatment Date Type Action Status Goal Lifestyle education regardin g diet completed Referral Ordered: EUS Appointment date/timeframe: 04/28/2023 ordered Referral Ordered: follow-up visit with Any bili [...] Prese nt Illness GI Symptoms or Concerns This is a pleasant 42-year-old female with history of sphincter of Oddi dysfunction with whom I had a new patient self referral visit today. I have requested her outside records from [facility]. We last saw her in 2015. She has a history of cholecystectomy and prior dual sphincterotomies for sphincter of Oddi dysfunction. In 2015 she had an minnie that in 2013 she would an ERCP done that showed elevated pancreatic sphincter of Oddi pressures. At her last ERCP she had extension of the pancreatic sphincterotomy and pancreatic stent placement. She has had improvement in her symptoms with her ERCPs. Starting in January 2022 she had recurrence of her abdominal pain. This occurred 1st in January 2022 then in August 2022. With these she is had abdominal pain. In August she had vomiting and angelica-colored stools. In March she again had abdominal pain nausea and vomiting. She was hospitalized at [facility]. She reports having an elevated lipase in the 400s. She GI Symptoms or Concerns The symp toms [...] Information Instructions Date Instruction Additional Infor alexey 1. Schedule EGD and endoscopic ultrasound endoscopic ultrasound and ERCP with the next few weeks. 2. Hyoscyamine as needed Continue Zofran as needed Pain management per primary care provider 5. Patient will send me her [facility] paperwork to fill out 6. Further follow up depends on the results of the above studies 7. Advance diet as tolerated Thank you for allowing me to participate in the care of this patient please contact me with any questions or concerns Related to Recurrent acute pancreatitis The patient will con tact the office [...]
[2023-04-26 17:15] LABS: Basophils Absolute Auto 0.06 K/uL (0.00-0.30); Eosinophils Absolute Auto 0.24 K/uL (0.00-0.50); Eosinophils Percent Auto 3.9 % (0.0-7.0); Hemoglobin* 13.6 gm/dL (12.0-16.0); Lymphocytes Absolute Auto 1.92 K/uL (0.90-2.90); Lymphocytes Percent Auto 30.9 % (20-44); Mean Corpuscular HGB Conc 35 gm/dL (32-36); Mean Corpuscular Hemoglobin 28 pg (26-34); Mean Corpuscular Volume 81 fL (80-100); Monocytes Percent Auto 7.2 % (0.0-11.0); Neutrophils Absolute Auto 3.55 K/uL (1.7-7.0); Platelet Count* 341 K/uL (140-440); RDW Coefficient of Variation % 11.6 % (11.5-15.5); Red Blood Count 4.82 m/uL (4.00-5.20); White Blood Count* 6.22 K/uL (4.50-11.00)
[2023-04-26 17:17] LABS: Slide Review Reflex No
[2023-04-26] MEDS: HYDROmorphone 0.5 mg/0.5 ml inj 1 MG IVP (17:19)
[2023-04-26 17:25] VITALS: O2SAT 96
[2023-04-26] MEDS: KETOROLAC 15 MG/ML inj IVP (17:28)
[2023-04-26] MEDS: ONDANSETRON 2 MG/ML inj 4 MG IVP (17:28)
[2023-04-26] MEDS: LACTATED RINGERS 1000 ML 1,000 ML IV (17:29)
[2023-04-26 17:31] LABS: Albumin* 4.4 g/dL (3.3-5.0); Chloride* 105 mmol/L (96-114)
[2023-04-26 17:32] LABS: Potassium* 3.9 mmol/L (3.6-5.1); Sodium* 138 mmol/L (135-149)
[2023-04-26 17:34] LABS: Alanine Aminotransferase* 43 U/L (4-35); Alkaline Phosphatase* 47 U/L (40-150); Anion Gap 11 mEq/L (7-15); Aspartate Amino Transferase* 39 U/L (12-35); Bilirubin Total* 0.6 mg/dL (0.1-1.5); Blood Urea Nitrogen* 9 mg/dL (5-24); Carbon Dioxide* 22 mmol/L (20-32); Est. Creatinine Clearance* 67.91; Estimated Glomerular Filt Rate 72 ml/min; Glucose* 96 mg/dL (60-115); Lipase* 586 U/L (23-300); Total Protein* 7.5 g/dL (6.0-8.3)
[2023-04-26 17:35] LABS: Calcium* 8.8 mg/dL (8.4-10.6)
[2023-04-26] MEDS: LACTATED RINGERS 1000 ML 500 ML IV (18:38)
--- NOTE | 2023-04-26 18:45 | ED.ABDPAIN ---
HPI - Abdominal Pain General Date Seen: 04/26/23 Chief Complaint: Abdominal Pain Stated Complaint: Abdominal pain Time Seen by Provider: 04/26/23 16:16 Source: patient Mode of arrival: ambulatory Limitations: no limitations History of Present Illness HPI narrative: Patient is a 42-year-old female presenting to the emergency department for abdominal pain. She states she has chronic pancreatitis secondary to a sphincter of Oddi dysfunction. She has been hospitalized twice in the past 3 weeks for these symptoms. Last hospitalization she was discharged 04/23/2023 because she was scheduled for a GI appointment the following day. She went to that appointment is scheduled her for an endoscopy and abdominal ultrasound to hopefully help resolve her symptoms. starting last night she started having worsening abdominal pain again. She also states the pain has been getting worse today. She has not been eating or drink because of the pain and associated nausea. She currently takes 4 mg oral Dilaudid every 4 hours. She has not been waking up to take the overnight does. Denies fevers, chills, chest pain, shortness of breath. Related Data Home Medications Medication Instructions Recorded Confirmed albuterol sulfate 90 mcg/actuation 2 puff inhalation QID PRN 02/11/22 04/19/23 aerosol inhaler shortness of breath or wheezing atorvastatin 20 mg tablet 20 mg PO HS 02/11/22 04/19/23 duloxetine 60 mg capsule,delayed 60 mg PO HS 04/06/23 04/19/23 release epinephrine 0.3 mg/0.3 mL 0.3 mg IM ONCE PRN allergies 04/06/23 04/19/23 injection, auto-injector tacrolimus 0.1 % topical ointment 1 applic topical BID PRN 04/06/23 04/19/23 (Protopic) hyoscyamine sulfate 0.125 mg 0.125 mg PO BID-QID PRN 04/26/23 04/26/23 tablet (Levsin) Previous Rx's Medication Instructions Recorded hydromorphone 2 mg tablet 4 mg (2 x 2 mg) PO Q4H PRN #60 tabs 04/23/23 hydroxyzine pamoate 25 mg capsule 25 mg PO Q4H PRN Abdominal Pain 04/23/23 #30 caps ondansetron 4 mg disintegrating 4 mg PO Q6H PRN #30 tabs 04/23/23 tablet hydromorphone 4 mg tablet 4 mg PO Q4-6H PRN pain #10 tabs 04/26/23 Allergies Allergy/AdvReac Type Severity Reaction Status Date / Time polyethylene glycol Allergy Anaphylaxis Verified 02/11/22 17:49 fentanyl AdvReac pain Verified 02/11/22 17:49 Review of Systems Status of ROS Reports: 10 or more systems reviewed and unremarkable except as noted in History and below [facility] Medical History (Updated 04/26/23 @ 19:09 by Alex Lara DO) Chronic pain ?G89.29 - Other chronic pain (ICD-10) 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 - Mast cell activation, unspecified (ICD-10) Sphincter of Oddi spasm ?K83.4 - Spasm of sphincter of Oddi (ICD-10) Sphincter of Oddi dysfunction (Unknown) ?K83.4 - Spasm of sphincter of Oddi (ICD-10) Surgical History History of tonsillectomy and adenoidectomy ?Z90.89 - Acquired absence of other organs (ICD-10) Hx of appendectomy ?Z90.49 - Acquired absence of other specified parts of digestive tract (ICD-10) Hx laparoscopic cholecystectomy ?Z90.49 - Acquired absence of other specified parts of digestive tract (ICD-10) History of sphincterotomy of sphincter of Oddi ?Z98.890 - Other specified postprocedural states (ICD-10) Family History Sister Danika's disease Sister Raynaud phenomenon Mother Rheumatoid arthritis Erythema multiforme Social History Narrative: 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 Does not drink alcohol or use recreational drugs. Getting medical care through [facility] in [place]. What is your current living situation?: I presently have a place to live Problems where you live: no known problems Problems where you live details: N/A In the past 12 months, utilities in danger of being shut off: no In past 12 months, lack of transportation kept you from medical appts, meetings, work, or getting things needed for daily living: no In the past 12 mos, have been you worried that your food would run out before you had money to buy more?: never true In the past 12 mos, the food you bought just didn't last and you didn't have money to buy more?: never true Highest level of school completed/degree received: Bachelor's degree Smoking Status: Former smoker What tobacco products do you use: cigarettes Smoking quit date/years: <= 15 years ago Do you use any of these nicotine containing products: None Second hand tobacco smoke exposure: No How often do you have a drink containing alcohol: never How often do you have six or more drinks on one occasion: Never AUDIT-C Alcohol total score: 0 Non-prescribed substance use: denies use Caffeine: Yes How often does anyone, including family, friends and others, physically hurt you: never How often does anyone, including family, friends and others, insult or talk down to you: sometimes How often does anyone, including family, friends and others, threaten you with harm: never How often does anyone, including family, friends and others, scream or curse at you: never service: Yes Exam Narrative: Exam Narrative: Const: Well-nourished, Well-developed, in moderate distress Eyes: PERRL, no conjunctival injection, and symmetrical lids HENT: Atraumatic external nose and ears. Moist mucous membranes. Neck: Symmetric, trachea midline, No thyromegaly. CVS: RRR, No murmurs or gallops. Peripheral pulses 2+ and equal in all extremities RESP: Unlabored respiratory effort. Clear to auscultation bilaterally. GI: Epigastric tenderness, Nondistended, No rebound or guarding. MSK:Extremities w/o deformity, Normal Active ROM Skin: Warm, Dry. No rashes or lesions. Neuro: Normal Muscle tone, No focal neurological deficits. Psych: Awake, Alert, & Oriented x3. Appropriate mood and affect. Const: Vital Signs, click to edit/add: Vital Signs - 24 hr 04/26/23 16:23 04/26/23 17:25 Temperature 98.8 F Pulse Rate [Pulse Oximeter] 87 Respiratory Rate 20 Blood Pressure [Ri ght Upper Arm] 133/92 H Pulse Oximetry 96 96 Oxygen Delivery Me thod Room Air Room Air Course Vital Signs Vital signs: Initial Vital Signs Temperature 98.8 F 04/26/23 16:23 Temperature Source Temporal Artery Scan 04/26/23 16:23 Pulse Rate 87 04/26/23 16:23 Pulse Rhythm Regular 04/26/23 16:23 Respiratory Rate 20 04/26/23 16:23 Blood Pressure 133/92 H 04/26/23 16:23 Blood Pressure Mean 105 04/26/23 16:23 Blood Pressure Position Supine 04/26/23 16:23 Pulse Oximetry 96 04/26/23 16:23 Oxygen Delivery Method Room Air 04/26/23 16:23 Vital Signs Temperature 98.8 F 04/26/23 16:23 Pulse Rate 87 04/26/23 16:23 Respiratory Rate 20 04/26/23 16:23 Blood Pressure 133/92 H 04/26/23 16:23 Pulse Oximetry 96 04/26/23 16:23 Oxygen Delivery Method Room Air 04/26/23 16:23 Temperature 98.8 F 04/26/23 16:23 Pulse Rate 87 04/26/23 16:23 Respiratory Rate 20 04/26/23 16:23 Blood Pressure 133/92 H 04/26/23 16:23 Pulse Oximetry 96 04/26/23 17:25 Oxygen Delivery Method Room Air 04/26/23 17:25 MDM - Abdominal Pain MDM Narrative Medical decision making narrative: Patient is a 42-year-old female presenting to emergency department for abdominal pain. She states this is likely chronic pancreatitis that she has been dealing with. Symptoms worsened last night. Considers is a chronic issue we were her lipase, cbc, CMP. CBC and CMP returned showing no concerning abnormalities. Lipase is elevated at 586. Considering this is a chronic issue not heavy lipase 3 times the normal limit does not rule out chronic pancreatitis causing the pain. Since it was elevated and she states this feels the same as likely a chronic pancreatitis. Patient was given Toradol, Dilaudid for pain. She was also given 1500 mL of lactated Ringer's. Since this is a chronic issue I can and she has been hospitalized twice for the past several weeks apparently she needs to have imaging as well your where it is pancreatitis. She is having a procedure done with a GI specialist for her pancreatitis on Friday with some associated imaging and it is reasonable to hold off with imaging until that procedure After the pain medicine she says the pain went from an 8 down to a 3 year forward is currently tolerable. I spoke to her about admission versus discharge. She states she is leaning towards admission at this time. I did speak to Dr. Pendleton about this patient. He states he is open to accepting her under observation but does states she might be better off at [place], were she is having her procedure. We also spoke about possibly discharge her increase in her pain medication. She is a chronic opioid patient states for the pain she has taken up to 12 mg of Dilaudid every 4 hours in the past. She is currently taking 4 mg every 4 hours months she was started on her most recent discharge. We believe is reasonable to upper to 6 mg every 4 hours. I spoke to the patient about this plan and she is agreeable for discharge at this time. We did go through a number of 2 mg hydromorphone cm left at home and I gave her an adequate amount of 4 mg tabs to get her through to her procedure on Friday. She will be discharged home. She states she really has enough Zofran at home and does not need anymore. Lab Data Labs: Lab Results 04/26/23 Range/Units 17:07 WBC 6.22 (4.50-11.00) K/uL RBC 4.82 (4.00-5.20) m/uL Hgb 13.6 (12.0-16.0) gm/dL Hct 39.0 (33.0-51.0) % MCV 81 (80-100) fL MCH 28 (26-34) pg MCHC 35 (32-36) gm/dL RDW Coeff of [place] 11.6 (11.5-15.5) % Plt Count 341 (140-440) K/uL Neut % (Auto) 57.0 (42.0-72.0) % Lymph % (Auto) 30.9 (20-44) % [place] % (Auto) 7.2 (0.0-11.0) % Eos % (Auto) 3.9 (0.0-7.0) % Baso % (Auto) 1.0 (0.0-3.0) % Neut # (Auto) 3.55 (1.7-7.0) K/uL Lymph # (Auto) 1.92 (0.90-2.90) K/uL [place] # (Auto) 0.40 (0.00-0.90) K/UL Eos # (Auto) 0.24 (0.00-0.50) K/uL Baso # (Auto) 0.06 (0.00-0.30) K/uL Abs Immat Gran (auto) 0.00 (0.00-0.30) K/uL Imm/Tot Granulo (auto) 0.0 % Sodium 138 (135-149) mmol/L Potassium 3.9 (3.6-5.1) mmol/L Chloride 105 (96-114) mmol/L Carbon Dioxide 22 (20-32) mmol/L Anion Gap 11 (7-15) mEq/L BUN 9 (5-24) mg/dL Creatinine 1.0 (0.5-1.5) mg/dL Estimated Creat Clear 67.91 Estimated GFR 72 ml/min Glucose 96 (60-115) mg/dL Calcium 8.8 (8.4-10.6) mg/dL Total Bilirubin 0.6 (0.1-1.5) mg/dL AST 39 H (12-35) U/L ALT 43 H (4-35) U/L Alkaline Phosphatase 47 (40-150) U/L Total Protein 7.5 (6.0-8.3) g/dL Albumin 4.4 (3.3-5.0) g/dL Lipase 586 H (23-300) U/L Discharge Plan Discharge Clinical Impression: Acute pancreatitis Qualifiers: Pancreatitis type: unspecified pancreatitis type Acute pancreatitis complication: unspecified Qualified Code(s): K85.90 - Acute pancreatitis without necrosis or infection, unspecified Patient Disposition: Home, Self-Care Condition: Improved Instructions: Pancreatitis (ED) Additional Instructions: Follow-up with the GI provider. Return for new worsening symptoms Prescriptions: New hydromorphone 4 mg tablet 4 mg PO Q4-6H PRN (Reason: pain) Qty: 10 0RF No Action atorvastatin 20 mg tablet 20 mg PO HS albuterol sulfate 90 mcg/actuation HFA aerosol inhaler 2 puff INHALATION QID PRN (Reason: shortness of breath or wheezing) ondansetron 4 mg Tablet,Disintegrating 4 mg PO Q6H PRNQty: 30 0RF hydroxyzine pamoate 25 mg Capsule 25 mg PO Q4H PRN (Reason: Abdominal Pain) Qty: 30 0RF hydromorphone 2 mg Tablet 4 mg PO Q4H PRNQty: 60 0RF hyoscyamine sulfate [Levsin] 0.125 mg tablet 0.125 mg PO BID-QID PRN duloxetine 60 mg capsule,delayed release(DR/EC) 60 mg PO HS epinephrine 0.3 mg/0.3 mL auto-injector 0.3 mg IM ONCE PRN (Reason: allergies) tacrolimus [Protopic] 0.1 % ointment 1 applic topical BID PRN Follow Up/Referrals: Provider,Not a Local [Primary Care Provider] - Stand Alone Forms: [place] [facility] Info Instructions
== END 2023-04-26 19:23 | disposition home or self-care (01) ==
PROVIDERS: Emergency Provider Student in an Organized Health Care Education/Training Program
DX: K85.90 Acute pancreatitis without necrosis or infection, unspecified (principal)
CPT/HCPCS: 36415; 80053; 83690; 85025; 96361; 96374; 96375; 99283; 99284; J1170; J1885; J2405; J7120

== ENCOUNTER 2023-04-28 17:21 | Observation (INO) | payer OTHER, SELFPAY ==
[2023-04-28 17:56] VITALS: BP 134/85; PULSE 86; RESP 14; TEMP 36.4; O2SAT 94; BMI 33.6
[2023-04-28] MEDS: HYDROmorphone 0.5 mg/0.5 ml inj 1 MG IVP ×2 (19:40→23:36)
--- NOTE | 2023-04-28 20:50 | ED.GENADULT ---
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 She was recently admitted a couple of times here with pancreatitis and today had seen GI for ERCP, sphincterotomy and stent placement. Apparently they had difficulty with pain control after the procedure, had attempted to admit her to [place] for pain control that there were no beds, called here to try and do a transfer but we did not have adequate beds to allow a transfer, so she was discharged from there and presents to the ER here for pain control. Of note, she is currently taking 6 mg of oral Dilaudid every 4 hours she has been on this dose for about a week and half she says. Her last dose of oral Dilaudid was at 11:00 a.m., she had a dose with her procedure and at about 3:00 p.m. they believe she had another mg. She has not had anything since then and I am seeing her at about 8:00 p.m.. She has epigastric pain, no significant nausea, no vomiting, no fevers. She says she has been having difficulty with eating and drinking at baseline because it increases her pain, and she is also worried about how she is going to taper off of the Dilaudid. Related Data Home Medications Medication Instructions Recorded Confirmed albuterol sulfate 90 mcg/actuation 2 puff inhalation QID PRN 02/11/22 04/29/23 aerosol inhaler shortness of breath or wheezing atorvastatin 20 mg tablet 20 mg PO HS 02/11/22 04/29/23 epinephrine 0.3 mg/0.3 mL 0.3 mg IM ONCE PRN allergies 04/06/23 04/29/23 injection, auto-injector tacrolimus 0.1 % topical ointment 1 applic topical BID PRN 04/06/23 04/29/23 (Protopic) duloxetine 30 mg capsule,delayed 60 mg PO DAILY 04/29/23 04/29/23 release hyoscyamine sulfate 0.125 mg 0.125 mg PO QID PRN 04/29/23 04/29/23 sublingual tablet Previous Rx's Medication Instructions Recorded hydromorphone 2 mg tablet 4 mg (2 x 2 mg) PO Q4H PRN #60 tabs 04/23/23 hydroxyzine pamoate 25 mg capsule 25 mg PO Q4H PRN Abdominal Pain 04/23/23 #30 caps ondansetron 4 mg disintegrating 4 mg PO Q6H PRN #30 tabs 04/23/23 tablet Allergies Allergy/AdvReac Type Severity Reaction Status Date / Time polyethylene glycol Allergy Anaphylaxis Verified 02/11/22 17:49 fentanyl AdvReac pain Verified 02/11/22 17:49 Review of Systems Status of ROS: Reports: 6 or more systems reviewed and unremarkable except as noted in History and below [facility] Medical History (Updated 04/29/23 @ 10:40 by Omar Jackson MD) Chronic pain ?G89.29 - Other chronic pain (ICD-10) 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 - Mast cell activation, unspecified (ICD-10) Sphincter of Oddi spasm ?K83.4 - Spasm of sphincter of Oddi (ICD-10) Sphincter of Oddi dysfunction (Unknown) ?K83.4 - Spasm of sphincter of Oddi (ICD-10) Surgical History (Updated 04/28/23 @ 23:36 by Terrance Pendleton MD) History of tonsillectomy and adenoidectomy ?Z90.89 - Acquired absence of other organs (ICD-10) Hx of appendectomy ?Z90.49 - Acquired absence of other specified parts of digestive tract (ICD-10) Hx laparoscopic cholecystectomy ?Z90.49 - Acquired absence of other specified parts of digestive tract (ICD-10) History of sphincterotomy of sphincter of Oddi ?Z98.890 - Other specified postprocedural states (ICD-10) Family History Sister Danika's disease Sister Raynaud phenomenon Mother Rheumatoid arthritis Erythema multiforme Social History Narrative: 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 Does not drink alcohol or use recreational drugs. Getting medical care through [facility] in [place]. What is your current living situation?: I presently have a place to live Problems where you live: no known problems Problems where you live details: None noted In the past 12 months, utilities in danger of being shut off: no In past 12 months, lack of transportation kept you from medical appts, meetings, work, or getting things needed for daily living: no In the past 12 mos, have been you worried that your food would run out before you had money to buy more?: never true In the past 12 mos, the food you bought just didn't last and you didn't have money to buy more?: never true Highest level of school completed/degree received: Bachelor's degree Smoking Status: Never smoker Do you use any of these nicotine containing products: None Second hand tobacco smoke exposure: No How often do you have a drink containing alcohol: never How often do you have six or more drinks on one occasion: Never AUDIT-C Alcohol total score: 0 Non-prescribed substance use: denies use Caffeine: No How often does anyone, including family, friends and others, physically hurt you: never How often does anyone, including family, friends and others, insult or talk down to you: never How often does anyone, including family, friends and others, threaten you with harm: never How often does anyone, including family, friends and others, scream or curse at you: never service: Yes Exam Narrative: Exam Narrative: Vital signs reviewed In general, alert, nontoxic woman, breathing easily. Eyes: Sclera clear, anicteric. ENT: Mucous membranes are moist. Abdomen: Epigastric tenderness without rebound guarding rigidity. Skin: Warm and dry. Affect: Normal. Const: Vital Signs, click to edit/add: Vital Signs - 24 hr 04/28/23 17:56 Temperature 97.6 F Pulse Rate [Right Pulse Oximeter] 86 Respiratory Rate 14 Blood Pressure [Ri ght Upper Arm] 134/85 Pulse Oximetry 94 Oxygen Delivery Me thod Room Air Documenting provider has reviewed patient's vital signs: yes Course Course ED Course: Initially, I recommended that she take her usual 6 mg does as she had that with her and had not had any for 9 hours. I also gave her mg of IV Dilaudid. After that, she says her pain is still too severe to manage at home. She would request admission to the hospital. I have discussed her care with Dr. Pendleton I ordered some labs which are pending at this time. I have also given her Toradol for ongoing pain. Plan will be admission to hospitalist service. Labs notable for an elevated lipase, probably not surprising given her ERCP today. LFTs are unremarkable. White blood cell count is normal. Vital Signs Vital signs: Initial Vital Signs Temperature 97.6 F 04/28/23 17:56 Temperature Source Temporal Artery Scan 04/28/23 17:56 Pulse Rate 86 04/28/23 17:56 Respiratory Rate 14 04/28/23 17:56 Blood Pressure 134/85 04/28/23 17:56 Blood Pressure Mean 101 04/28/23 17:56 Blood Pressure Position Sitting 04/28/23 17:56 Pulse Oximetry 94 04/28/23 17:56 Oxygen Delivery Method Room Air 04/28/23 17:56 Vital Signs Temperature 97.6 F 04/28/23 17:56 Pulse Rate 86 04/28/23 17:56 Respiratory Rate 14 04/28/23 17:56 Blood Pressure 134/85 04/28/23 17:56 Pulse Oximetry 94 04/28/23 17:56 Oxygen Delivery Method Room Air 04/28/23 17:56 Temperature 97.7 F 04/29/23 03:00 Pulse Rate 86 04/28/23 17:56 Respiratory Rate 16 04/29/23 03:00 Blood Pressure 110/67 04/29/23 03:00 Pulse Oximetry 94 04/29/23 03:00 Oxygen Delivery Method Room Air 04/29/23 03:00 Medical Decision Making Lab Data Labs: Lab Results 04/28/23 Range/Units 20:40 WBC 8.77 (4.50-11.00) K/uL RBC 4.90 (4.00-5.20) m/uL Hgb 13.9 (12.0-16.0) gm/dL Hct 39.5 (33.0-51.0) % MCV 81 (80-100) fL MCH 28 (26-34) pg MCHC 35 (32-36) gm/dL RDW Coeff of [place]an 11.6 (11.5-15.5) % Plt Count 365 (140-440) K/uL Neut % (Auto) 90.8 H (42.0-72.0) % Lymph % (Auto) 8.0 L (20-44) % [place] % (Auto) 0.9 (0.0-11.0) % Eos % (Auto) 0.0 (0.0-7.0) % Baso % (Auto) 0.1 (0.0-3.0) % Neut # (Auto) 8.00 H (1.7-7.0) K/uL Lymph # (Auto) 0.70 L (0.90-2.90) K/uL [place] # (Auto) 0.10 (0.00-0.90) K/UL Eos # (Auto) 0.00 (0.00-0.50) K/uL Baso # (Auto) 0.01 (0.00-0.30) K/uL Abs Immat Gran (auto) 0.02 (0.00-0.30) K/uL Imm/Tot Granulo (auto) 0.2 % Sodium 138 (135-149) mmol/L Potassium 4.4 (3.6-5.1) mmol/L Chloride 103 (96-114) mmol/L Carbon Dioxide 24 (20-32) mmol/L Anion Gap 11 (7-15) mEq/L BUN 9 (5-24) mg/dL Creatinine 0.9 (0.5-1.5) mg/dL Estimated Creat Clear 75.45 Estimated GFR 81 ml/min Glucose 128 H (60-115) mg/dL Calcium 9.3 (8.4-10.6) mg/dL Total Bilirubin 0.6 (0.1-1.5) mg/dL Direct Bilirubin 0.0 (0.0-0.5) mg/dL AST 52 H (12-35) U/L ALT 55 H (4-35) U/L Alkaline Phosphatase 54 (40-150) U/L C-Reactive Protein 0.6 (0.5-1.0) mg/dL Total Protein 7.9 (6.0-8.3) g/dL Albumin 4.6 (3.3-5.0) g/dL Lipase 751 H (23-300) U/L Discharge Plan Discharge Patient Disposition: Admitted As Inpatient Condition: Improved Activity Level: No Restrictions Discharge Diet: Regular
[2023-04-28 21:05] LABS: Albumin* 4.6 g/dL (3.3-5.0); Chloride* 103 mmol/L (96-114)
[2023-04-28 21:06] LABS: Potassium* 4.4 mmol/L (3.6-5.1); Sodium* 138 mmol/L (135-149)
[2023-04-28] MEDS: KETOROLAC 15 MG/ML inj IVP (21:07)
[2023-04-28] MEDS: 0.9 % SODIUM CHLORIDE 1000 ml 1,000 ML IV (21:07)
[2023-04-28 21:08] LABS: Alkaline Phosphatase* 54 U/L (40-150); Anion Gap 11 mEq/L (7-15); Aspartate Amino Transferase* 52 U/L (12-35); Bilirubin Total* 0.6 mg/dL (0.1-1.5); Carbon Dioxide* 24 mmol/L (20-32); Creatinine* 0.9 mg/dL (0.5-1.5); Est. Creatinine Clearance* 75.45; Estimated Glomerular Filt Rate 81 ml/min; Total Protein* 7.9 g/dL (6.0-8.3)
[2023-04-28 21:09] LABS: Alanine Aminotransferase* 55 U/L (4-35); Blood Urea Nitrogen* 9 mg/dL (5-24); Calcium* 9.3 mg/dL (8.4-10.6); Glucose* 128 mg/dL (60-115); Lipase* 751 U/L (23-300)
--- NOTE | 2023-04-28 21:10 | ED.NURSE ---
Report given to [facility] nurse, pt transporting with all belongings at this time.
[2023-04-28 21:11] LABS: C Reactive Protein* 0.6 mg/dL (0.5-1.0)
[2023-04-28 21:15] LABS: Basophils Absolute Auto 0.01 K/uL (0.00-0.30); Basophils Percent Auto 0.1 % (0.0-3.0); Hematocrit 39.5 % (33.0-51.0); Hemoglobin* 13.9 gm/dL (12.0-16.0); Immature Granulocytes Abs Auto 0.02 K/uL (0.00-0.30); Immature Granulocytes Pct Auto 0.2 %; Mean Corpuscular HGB Conc 35 gm/dL (32-36); Mean Corpuscular Hemoglobin 28 pg (26-34); Mean Corpuscular Volume 81 fL (80-100); Monocytes Percent Auto 0.9 % (0.0-11.0); Neutrophils Percent Auto 90.8 % (42.0-72.0); Platelet Count* 365 K/uL (140-440); RDW Coefficient of Variation % 11.6 % (11.5-15.5); White Blood Count* 8.77 K/uL (4.50-11.00)
[2023-04-28 21:23] LABS: Slide Review Reflex No
[2023-04-28 21:58] VITALS: BP 137/81; RESP 16; TEMP 36.7; O2SAT 96; BMI 34.0
--- NOTE | 2023-04-28 22:52 | PM.IMHP1 ---
Hospitalist- H&P: HPI History of Present Illness Time Seen by Provider: 22:00 Date Seen: 04/28/23 Chief complaint: pain s/p ERCP & EST, recurrent pancreatitis Narrative: Tatum Taylor is a 42 year old woman with known sphincter of Oddi dysfunction and associated recurrent pancreatitis who underwent an ERCP and endoscopic sphincterotomy (EST) and stent placement today at [place], [place]. Reportedly, postprocedure the patient's pain was not adequately controlled and her sewage plant attendant recommended admission to the hospital for better pain control, but had no bed availability. They attempted to transfer the patient to [facility] for postprocedural pain control but our hospital had no bed availability. According to the patient, the staff at [facility] then arranged for the patient to be discharged from the hospital with an IV still in place and travel directly to the emergency department at [facility] for assessment and admission if bed availability allowed. Patient has suffered from sphincter of OD dysfunction and recurrent pancreatitis for number of years. 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 She suffers from chronic pain in association with the same. Presently she is on hydromorphone 6 mg orally every 6 hours as needed for pain. Additionally takes duloxetine as an adjunct of pain modifying agent, which also addresses depression and anxiety she may suffer from in association with her chronic illness. Does not take other usual adjuvant medications such as scheduled acetaminophen or a nonsteroidal anti-inflammatory at this time, nor does she take scheduled a tricyclic antidepressant or and H1 katherin, such as hydroxyzine. Patient informs me that Dr. Fraga recommended she have NPO status tonight, be kept hydrated with IV fluids, and attempt better management of her pain. Additionally the patient has had dry heaves intermittently and has historically responded to ondansetron as needed. Presently rates her epigastric pain at 7/10, which is an improvement from what it had been previously when it was as high as 9/10. Pain level has decreased subsequent to IV hydromorphone she received 1 in the emergency department. Denies fevers, rigors, diaphoresis. Has had episodes of nausea and dry retching but no vomiting per se. Pain localized in epigastrium and does not radiate. Pain relieved in part if she stands and walks around. Pain more intolerable if she sits or lays around. Has nearly as I can tell, the patient took weight less than her usual amount of hydromorphone throughout the day today due to ERCP, EST, and stent placement she underwent. Review of Systems Status of ROS: Reports: 10 or more systems reviewed and unremarkable except as noted in History and below Narrative: Denies chest heaviness, pressure, tightness, or pain. Denies syncope or near-syncope. Denies cough or shortness of breath. Denies dysphagia or odynophagia. Denies constipation or diarrhea. Denies dysuria, urgency, frequency, hematuria. No recent trauma, injury, travel. No recent blood loss that she is aware of save whenever blood loss she may have had in association with procedures she underwent earlier today. 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 - Mast cell activation, unspecified (ICD-10) Sphincter of Oddi spasm ?K83.4 - Spasm of sphincter of Oddi (ICD-10) Sphincter of Oddi dysfunction (Unknown) ?K83.4 - Spasm of sphincter of Oddi (ICD-10) Surgical History (Updated 04/28/23 @ 23:36 by Terrance Pendleton MD) History of tonsillectomy and adenoidectomy ?Z90.89 - Acquired absence of other organs (ICD-10) Hx of appendectomy ?Z90.49 - Acquired absence of other specified parts of digestive tract (ICD-10) Hx laparoscopic cholecystectomy ?Z90.49 - Acquired absence of other specified parts of digestive tract (ICD-10) History of sphincterotomy of sphincter of Oddi ?Z98.890 - Other specified postprocedural states (ICD-10) Family History Sister Danika's disease Sister Raynaud phenomenon Mother Rheumatoid arthritis Erythema multiforme Social History Narrative: 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 Does not drink alcohol or use recreational drugs. Getting medical care through [facility] in [place]. What is your current living situation?: I presently have a place to live Problems where you live: no known problems Problems where you live details: None noted In the past 12 months, utilities in danger of being shut off: no In past 12 months, lack of transportation kept you from medical appts, meetings, work, or getting things needed for daily living: no In the past 12 mos, have been you worried that your food would run out before you had money to buy more?: never true In the past 12 mos, the food you bought just didn't last and you didn't have money to buy more?: never true Highest level of school completed/degree received: Bachelor's degree Smoking Status: Never smoker Do you use any of these nicotine containing products: None Second hand tobacco smoke exposure: No How often do you have a drink containing alcohol: never How often do you have six or more drinks on one occasion: Never AUDIT-C Alcohol total score: 0 Non-prescribed substance use: denies use Caffeine: No How often does anyone, including family, friends and others, physically hurt you: never How often does anyone, including family, friends and others, insult or talk down to you: never How often does anyone, including family, friends and others, threaten you with harm: never How often does anyone, including family, friends and others, scream or curse at you: never service: Yes Meds Home Medications and Allergies Home Medications Medication Instructions Recorded Confirmed Type albuterol sulfate 90 mcg/actuation 2 puff inhalation QID PRN 02/11/22 04/19/23 History aerosol inhaler shortness of breath or wheezing atorvastatin 20 mg tablet 20 mg PO HS 02/11/22 04/19/23 History duloxetine 60 mg capsule,delayed 60 mg PO HS 04/06/23 04/19/23 History release epinephrine 0.3 mg/0.3 mL 0.3 mg IM ONCE PRN allergies 04/06/23 04/19/23 History injection, auto-injector tacrolimus 0.1 % topical ointment 1 applic topical BID PRN 04/06/23 04/19/23 History (Protopic) hyoscyamine sulfate 0.125 mg 0.125 mg PO BID-QID PRN 04/26/23 04/26/23 History tablet (Levsin) Home Medication Comments: Additional medications: Wixela (fluticasone 250 mcg/salmeterol 50 mcg) 1 inhalation twice daily Fexofenadine 180 mg p.o. b.i.d. Prednisone 100 mg p.o. p.r.n. for mast cell reaction (such as anaphylaxis or angioedema) Cetirizine 5 mg p.o. p.r.n. for mast cell reaction (such as anaphylaxis or angioedema) Allergies Allergy/AdvReac Type Severity Reaction Status Date / Time polyethylene glycol Allergy Anaphylaxis Verified 02/11/22 17:49 fentanyl AdvReac pain Verified 02/11/22 17:49 Exam Narrative: Exam Narrative: Examine her in her hospital room. Vision and hearing are grossly normal. She appears comfortable and in no acute distress. She tells me her pain level is 7/10. Speaks easily and fluidly. Alert, oriented to self, place, time, situation. Friendly, articulate, cooperative. Tearful at times during the course of her conversation with me when she discusses how her condition is becoming increasingly difficult for her emotionally. No icterus or jaundice. No petechiae, rashes, or cyanosis. Independent with transfers, station, gait. No tremor, asterixis or ataxia. Pupils equally round and reactive to light and accommodation. Extraocular muscles intact. Conjugate gaze. Midline nasal septum. Moist buccal mucosa. Dentition in good repair. Neck is supple. Midline trachea. No JVD or hepatojugular reflux. No head and neck lymphadenopathy. Lungs entirely clear to auscultation without wheezing, rhonchi, or rales. Chest wall excursions are full. No CVA tenderness to percussion. Heart tones with regular rhythm, normal S1-S2, without murmur, gallop, or rub. PMI not laterally displaced. Abdomen with active bowel sounds, soft, subjective discomfort to palpation epigastrium without rebound or guarding. Extremities without edema. Palpable pulses. Const: Vital Signs, click to edit/add: Vital Signs - 24 hr 04/28/23 17:56 04/28/23 21:58 Temperature 97.6 F 98.1 F Pulse Rate [Right Pulse Oximeter] 86 Respiratory Rate 14 16 Blood Pressure [Ri ght Arm] 137/81 Blood Pressure [Ri ght Upper Arm] 134/85 Pulse Oximetry 94 96 Oxygen Delivery Me thod Room Air Room Air Documenting provider has reviewed patient's vital signs: yes Hospitalist - H&P: Result Labs Labs: Short CBC 04/28/23 Range/Units 20:40 WBC 8.77 (4.50-11.00) K/uL Hgb 13.9 (12.0-16.0) gm/dL Hct 39.5 (33.0-51.0) % Plt Count 365 (140-440) K/uL BMP 04/28/23 20:40 Sodium 138 Potassium 4.4 Chloride 103 Carbon Dioxide 24 BUN 9 Creatinine 0.9 Glucose 128 H Calcium 9.3 Liver Function 04/28/23 Range/Units 20:40 Total Bilirubin 0.6 (0.1-1.5) mg/dL Direct Bilirubin 0.0 (0.0-0.5) mg/dL AST 52 H (12-35) U/L ALT 55 H (4-35) U/L Alkaline Phosphatase 54 (40-150) U/L Albumin 4.6 (3.3-5.0) g/dL Imaging CT scan - abdomen: Attestation: I have reviewed the pertinent imaging results. Radiologist's impression: Most recent CT scan in our institution was on 02/13/2023: FINDINGS: There is a tiny low-attenuation lesion in the superior right hepatic lobe which is too small to characterize but likely benign. Cholecystectomy. Stable mild intrahepatic bile duct dilation likely related to post cholecystectomy state. No dilation of the common bile duct. The spleen is enlarged measuring 14.6 cm in AP dimension today compared to 13 cm previously. The pancreas and adrenal glands are negative. Hepatic and portal veins are patent. Symmetric enhancement of the kidneys. No hydronephrosis or ureteral dilation. No obstructing urinary calculi identified. The urinary bladder is distended but otherwise unremarkable. The uterus is normal in appearance. No adnexal mass. Small hiatal hernia. No bowel dilation. There are multiple fluid-filled loops of mid and distal small bowel which are nonspecific. No significant wall thickening. Moderate amount of stool throughout the colon. Appendectomy. Trace free fluid in the pelvic cul-de-sac is likely physiologic. No intraperitoneal free air. No lymphadenopathy. The bones are unremarkable. Subcutaneous edema along the lateral aspect of both hips. Mild bibasilar atelectasis. IMPRESSION: 1. Multiple fluid-filled loops of mid and distal small bowel are nonspecific but could be due to enteritis. 2. No other acute findings in the abdomen or pelvis. 3. Splenomegaly. 4. Distended urinary bladder. Assessment and Plan Assessment and plan (1) Chronic pain: Problem comment: Acute on chronic epigastric pain associated with elevated lipase and history of sphincter of Oddi dysfunction and sphincterotomy. Has had 2 hospital admissions in last 3 weeks for pain management. Underwent ERCP, sphincterotomy, and stent placement on 04/28/2023 at [place], [place]. Has follow-up with [facility] [place] to address chronic pain. Status: Acute (2) S/P ERCP: Problem comment: ERCP, sphincterotomy, stent placement on 04/28/2023, [place], [place]. Status: Acute (3) Chronic, continuous use of opioids: Problem comment: I suspect some of her increased pain on 04/28/2023 is related to the fact that she took much less hydromorphone today than she normally does. Certainly her underlying condition and the ERCP and other procedures undertaken on 04/28/2023 could increase her pain as well. Status: Acute (4) Elevated lipase: Problem comment: Presumably secondary to acute and chronic pancreatitis Status: Acute (5) Sphincter of Oddi dysfunction: Problem comment: Pending Gastroenterology follow-up Status: Acute (6) Mast cell activation syndrome: Status: Chronic Plan 1. Reviewed impression with patient and her . 2. Answered their questions. 3. Admit to observation. 4. NPO, IV fluids, resumption of her usual oral hydromorphone 6 mg q.6 hours, plus her adjuvant duloxetine. 5. Schedule acetaminophen 650 mg p.o. q.i.d. and diclofenac 25 mg p.o. b.i.d. as adjuvant analgesics. I also initiated omeprazole 20 mg p.o. b.i.d. with this. 6. Schedule hydroxyzine 50 mg p.o. q.i.d. as adjuvant analgesics. 7. Hydromorphone 1 mg IV q.6 hours p.r.n. for severe pain. 8. Ketorolac 15 mg IV q.6 hours p.r.n. for pain. 9. Continue to work closely with her sewage plant attendant. 10. Keep appointment with [facility]. 11. Monitor labs while in hospital. 12. Nutrition consultation while in hospital. 13. Advance her diet as tolerated starting tomorrow. 14. Continue with other supportive efforts as presently instituted for her other underlying medical conditions. 15. Patient and agreeable with above stated plans and recommendations.
[2023-04-28 23:00] VITALS: BP 112/78; RESP 16; TEMP 36.6; O2SAT 93
[2023-04-28] MEDS: HYDROmorphone 2 MG TABLET 6 MG PO (23:33)
[2023-04-28] MEDS: hydrOXYzine pamoate 25 MG CAPSULE 50 MG PO (23:34)
[2023-04-28] MEDS: ACETAMINOPHEN 325 MG TABLET 650 MG PO (23:34)
[2023-04-28] MEDS: 0.9 % SODIUM CHLORIDE 1000 ml 1,000 ML 125 ML IV (23:39)
[2023-04-29 03:00] VITALS: BP 110/67; RESP 16; TEMP 36.5; O2SAT 94
[2023-04-29] MEDS: HYDROmorphone 2 MG TABLET 6 MG PO ×5 (04:01→20:41)
[2023-04-29] MEDS: 0.9 % SODIUM CHLORIDE 1000 ml 1,000 ML 125 ML IV (06:29)
--- NOTE | 2023-04-29 06:50 | PC.NURSE ---
End of Shift: Pt admitted to Med Surg via ED post ERCP procedure at [facility] earlier in the day d/t uncontrolled abdominal pain. Pt reports hx of pancreatitis and high tolerance for narcotics d/t scheduled dilauded prescription for at home use. Pt appeared uncomfortable rating pain 8-9/10, improved to 3/10 with IV and PO dilauded along with PO scheduled tylenol. Pt requested one additional dose 4 hours later of PO dilauded. Pain appears to be under control. NPO diet ordered and followed, tolerating well. Pt independent in room, continent with bowel and bladder, reporting on medium BM during shift. O2 sats WNL between 93-95% RA.
[2023-04-29 07:17] LABS: Hematocrit 33.8 % (33.0-51.0); Hemoglobin* 11.9 gm/dL (12.0-16.0); Mean Corpuscular HGB Conc 35 gm/dL (32-36); Mean Corpuscular Hemoglobin 28 pg (26-34); Mean Corpuscular Volume 81 fL (80-100); Platelet Count* 334 K/uL (140-440); Red Blood Count 4.19 m/uL (4.00-5.20); White Blood Count* 14.02 K/uL (4.50-11.00)
[2023-04-29 07:22] LABS: Slide Review Reflex No
[2023-04-29 07:25] LABS: Albumin* 3.6 g/dL (3.3-5.0)
[2023-04-29 07:28] LABS: Alkaline Phosphatase* 40 U/L (40-150); Aspartate Amino Transferase* 46 U/L (12-35); Bilirubin Total* 0.6 mg/dL (0.1-1.5); Lipase* 312 U/L (23-300); Phosphorus* 4.1 mg/dL (2.5-4.5); Total Protein* 6.4 g/dL (6.0-8.3)
[2023-04-29 07:29] LABS: Alanine Aminotransferase* 52 U/L (4-35); Magnesium* 1.8 mg/dL (1.5-2.6)
[2023-04-29 07:31] LABS: C Reactive Protein* 0.6 mg/dL (0.5-1.0)
[2023-04-29 07:50] VITALS: BP 109/77; PULSE 84; RESP 16; TEMP 36.6; O2SAT 97
[2023-04-29 08:00] VITALS: O2SAT 97
[2023-04-29] MEDS: HYDROmorphone 0.5 mg/0.5 ml inj 1 MG IVP (08:06)
[2023-04-29] MEDS: ACETAMINOPHEN 325 MG TABLET 650 MG PO ×4 (08:55→20:41)
[2023-04-29] MEDS: OMEPRAZOLE 20 MG CAPSULE DR PO ×2 (08:55→20:42)
[2023-04-29] MEDS: hydrOXYzine pamoate 25 MG CAPSULE 50 MG PO ×4 (08:56→20:42)
--- NOTE | 2023-04-29 10:32 | NUTR.NU ---
RDn with nutrition screen related to MD consult. Patient received diet education related to pancreatitis on 04/07/2023. Weight is stable, height 5ft 6in; weight 210 lb 14.4 oz; BMI 34.0 kg/m2. Current diet order clear liquids. No nutrition interventions at this time. RDN will continue to monitor and follow-up prn.
--- NOTE | 2023-04-29 10:34 | PM.IMPN1 ---
Progress Note: A&P Assessment and plan (1) Post-ERCP acute pancreatitis: Problem details: ERCP at [facility] 04/28/2023. Improved today. Discharge to home when able to tolerate p.o. food and pain medicine Status: Acute (2) Acute pancreatitis: Problem details: Secondary to ERCP and sphincterotomy. Anticipate relatively quick improvement. Status: Acute (3) Sphincter of Oddi dysfunction: Problem details: Day 1 status post sphincterotomy Status: Acute (4) Chronic, continuous use of opioids: Problem details: Patient has been on opioids fairly continuously for the last month. We did discuss the need to taper off opioids following what is hope to be successful treatment was sphincterotomy yesterday. She goes to the ID for chronic pain management. Status: Acute Plan Continue in-hospital for IV fluids and pain medicines. When able to manage oral fluids and oral pain medicines can be discharged to home Time Spent With Patient Total time spent: Total time spent today is 40 minutes, 30 minutes in coordination of care and discussing with patient other providers management of post ERCP pancreatitis Subjective Date Seen: 04/29/23 Interval history: 42-year-old female with history of sphincter of Oddi dysfunction and recurrent episodes of pancreatitis and acute on chronic abdominal pain admitted to the hospital with a post ERCP pancreatitis. She has been hospitalized here a couple times in the last few weeks for acute epigastric pain associated with elevation of her lipase. Yesterday she underwent ERCP with sphincterotomy. Following the procedure she had onset of worsening abdominal pain. The procedure was performed at [facility]. Due to limited bed availability she elected to come to [facility] rather than wait for a bed at [facility]. Overnight she reports feeling better. Her pain is better and she can tolerates clear liquids this morning. She has not had any fever or vomiting. Exam Narrative: Exam Narrative: She is alert and appears in no distress. Breathing is unlabored. Abdomen: Bowel sounds are present. Abdomen is soft with moderate epigastric and right upper quadrant tenderness. Const: Vital Signs, click to edit/add: Vital Signs - 24 hr 04/28/23 17:56 04/28/23 21:58 04/28/23 23:00 Temperature 97.6 F 98.1 F Pulse Rate [Right Pulse Oximeter] 86 Respiratory Rate 14 16 16 Blood Pressure [Ri ght Arm] 137/81 Blood Pressure [Ri ght Upper Arm] 134/85 Pulse Oximetry 94 96 Oxygen Delivery Me thod Room Air Room Air 04/28/23 23:00 04/28/23 23:00 04/29/23 03:00 Temperature 98 F 97.7 F Pulse Rate [Right Pulse Oximeter] Respiratory Rate 16 16 16 Blood Pressure [Ri ght Arm] 112/78 110/67 Blood Pressure [[facility]] Pulse Oximetry 93 93 94 Oxygen Delivery Me thod Room Air Room Air Room Air Documenting provider has reviewed patient's vital signs: yes Labs Labs: Laboratory Results - last 24 hr 04/28/23 04/29/23 20:40 06:39 WBC 8.77 14.02 H RBC 4.90 4.19 Hgb 13.9 11.9 L Hct 39.5 33.8 MCV 81 81 MCH 28 28 MCHC 35 35 RDW Coeff of Declan 11.6 Plt Count 365 334 Neut % (Auto) 90.8 H Lymph % (Auto) 8.0 L [place] % (Auto) 0.9 Eos % (Auto) 0.0 Baso % (Auto) 0.1 Neut # (Auto) 8.00 H Lymph # (Auto) 0.70 L [place] # (Auto) 0.10 Eos # (Auto) 0.00 Baso # (Auto) 0.01 Abs Immat Gran (auto) 0.02 Imm/Tot Granulo (auto) 0.2 Sodium 138 Potassium 4.4 Chloride 103 Carbon Dioxide 24 Anion Gap 11 BUN 9 Creatinine 0.9 Estimated Creat Clear 75.45 Estimated GFR 81 Glucose 128 H Lactate 1.0 Calcium 9.3 Phosphorus 4.1 Magnesium 1.8 Total Bilirubin 0.6 0.6 Direct Bilirubin 0.0 0.0 AST 52 H 46 H ALT 55 H 52 H Alkaline Phosphatase 54 40 C-Reactive Protein 0.6 0.6 Total Protein 7.9 6.4 Albumin 4.6 3.6 Lipase 751 H 312 H
[2023-04-29 11:20] VITALS: BP 112/67; PULSE 83; RESP 16; O2SAT 97
[2023-04-29 15:00] VITALS: BP 105/61; PULSE 79; RESP 20; TEMP 36.8; O2SAT 95
--- NOTE | 2023-04-29 16:02 | PC.NURSE ---
Pt had one dose of IV Dilaudid this am for pain 6 out of 10. Pt's abdominal pain managed with oral pain meds 2-3 out of 10 the majority of the shift Diet adv from CL to FL w/o increase in pain. Updated Jennifer AVINA regarding pt's request to possibly go home later today. Ambulated twice in hallway w/o any new/worsening pain. Report to oncoming shift RN.
[2023-04-29] MEDS: 0.9 % SODIUM CHLORIDE 1000 ml 1,000 ML 75 ML IV (16:07)
[2023-04-29 19:00] VITALS: BP 125/72; PULSE 85; RESP 18; TEMP 36.6; O2SAT 99
--- NOTE | 2023-04-29 20:07 | P.DS_ITS ---
DS: Providers Provider Time Seen by Provider: 19:30 Date Seen: 04/29/23 Date of admission: 04/28/23 21:11 Primary care physician: Not a Local Provider Admitting Clinician: Terrance Pendleton MD Consults: 04/28/23 22:31 Consult to Nutrition [CONS] Routine Comment: Reason for consult:: Miscellaneous Attending Physician on discharge: Terrance Pendleton MD Date of Discharge: 04/29/23 DS: Diagnosis Discharge Diagnosis (1) Post-ERCP acute pancreatitis: Status: Acute Problem details: ERCP at [facility] 04/28/2023. Improved today. Discharge to home when able to tolerate p.o. food and pain medicine (2) S/P ERCP: Status: Acute Problem details: ERCP, sphincterotomy, stent placement on 04/28/2023, [place], [place]. (3) Chronic pain: Status: Acute Problem details: Acute on chronic epigastric pain associated with elevated lipase and history of sphincter of Oddi dysfunction and sphincterotomy. Has had 2 hospital admissions in last 3 weeks for pain management. Underwent ERCP, sphincterotomy, and stent placement on 04/28/2023 at [place], [place]. Has follow-up with [facility] at [place] to address chronic pain. (4) Chronic, continuous use of opioids: Status: Acute Problem details: Patient has been on opioids fairly continuously for the last month. We did discuss the need to taper off opioids following what is hope to be successful treatment was sphincterotomy yesterday. She goes to the [place] for chronic pain management. (5) Disorder of fluid or electrolyte: Status: Acute Problem details: Volume status appears about right today. Transition to oral food and fluid (6) Sphincter of Oddi dysfunction: Status: Acute Problem details: Day 1 status post sphincterotomy (7) Elevated lipase: Status: Acute Problem details: Presumably secondary to acute and chronic pancreatitis DS: Summary Hospital Course Hospital Course: Tatum Taylor is a 42 year old woman with known sphincter of Oddi dysfunction and associated recurrent pancreatitis who underwent an ERCP and endoscopic sphincterotomy (EST) and stent placement today at [place], [place]. Reportedly, postprocedure the patient's pain was not adequately controlled and her perfect binder setter recommended admission to the hospital for better pain control, but [facility] had no bed availability. They attempted to transfer the patient to [facility] for postprocedural pain control but our hospital had no bed availability. According to the patient, the staff at [facility] then arranged for the patient to be discharged from the hospital with an IV still in place and travel directly to the emergency department at [facility] for assessment and admission if bed availability allowed. Patient has suffered from sphincter of OD dysfunction and recurrent pancreatitis for number of years. 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 She suffers from chronic pain in association with the same. Presently she is on hydromorphone 6 mg orally every 6 hours as needed for pain. Additionally takes duloxetine as an adjunct of pain modifying agent, which also addresses depression and anxiety she may suffer from in association with her chronic illness. Does not take other usual adjuvant medications such as scheduled acetaminophen or a nonsteroidal anti-inflammatory at this time, nor does she take scheduled a tricyclic antidepressant or and H1 katherin, such as hydroxyzine. Patient informs me that Dr. Fraga recommended she have NPO status tonight, be kept hydrated with IV fluids, and attempt better management of her pain. Additionally the patient has had dry heaves intermittently and has historically responded to ondansetron as needed. On admission she rated her epigastric pain at 7/10, which is an improvement from what it had been previously when at [facility] earlier in the day, when pain was rated as high as 9/10. Pain level has decreased subsequent to IV hydromorphone she received 1 in the emergency department. Denies fevers, rigors, diaphoresis. Has had episodes of nausea and dry retching but no vomiting per se. Pain localized in epigastrium and does not radiate. Pain relieved in part if she stands and walks around. Pain more intolerable if she sits or lays around. Has nearly as I can tell, the patient took weight less than her usual amount of hydromorphone throughout the day today due to ERCP, EST, and stent placement she underwent. Overnight she reports feeling better. She has not had any fever or vomiting. Her pain is better and she can tolerates clear liquids this morning, and by evening she is tolerating a soft diet. Status at Discharge Functional status at discharge: independent ambulation Overall status at discharge: patient is progressing back to baseline Time Spent with Patient Time attestation: Total time spent providing and/or coordinating discharge services: Time spent: Greater than 30 minutes Exam Narrative: Exam Narrative: She is alert and appears in no distress. Breathing is unlabored. Abdomen: Bowel sounds are present. Abdomen is soft with moderate epigastric and right upper quadrant tenderness. Const: Vital Signs, click to edit/add: Vital Signs - 24 hr 04/28/23 21:58 04/28/23 23:00 04/28/23 23:00 Temperature 98.1 F Pulse Rate [Left P ulse Oximeter] Respiratory Rate 16 16 16 Blood Pressure [Ri ght Arm] 137/81 Pulse Oximetry 96 93 Oxygen Delivery Me thod Room Air Room Air 04/28/23 23:00 04/29/23 03:00 04/29/23 07:50 Temperature 98 F 97.7 F 97.9 F Pulse Rate [Left P ulse Oximeter] 84 Respiratory Rate 16 16 16 Blood Pressure [Ri ght Arm] 112/78 110/67 109/77 Pulse Oximetry 93 94 97 Oxygen Delivery Me thod Room Air Room Air Room Air 04/29/23 08:00 04/29/23 11:20 04/29/23 15:00 Temperature Pulse Rate [Left P ulse Oximeter] 83 Respiratory Rate 16 Blood Pressure [Ri ght Arm] 112/67 Pulse Oximetry 97 97 95 Oxygen Delivery Me thod Room Air Room Air Room Air 04/29/23 15:00 Temperature 98.2 F Pulse Rate [Left P ulse Oximeter] 79 Respiratory Rate 20 Blood Pressure [Ri ght Arm] 105/61 Pulse Oximetry 95 Oxygen Delivery Me thod Room Air Documenting provider has reviewed patient's vital signs: yes DS: Data Data Completed and Pending Labs on day of discharge: Labs from last 24 hours 04/29/23 04/28/23 06:39 20:40 WBC 14.02 H 8.77 RBC 4.19 4.90 Hgb 11.9 L 13.9 Hct 33.8 39.5 MCV 81 81 MCH 28 28 MCHC 35 35 RDW Coeff of Declan 11.6 Plt Count 334 365 Neut % (Auto) 90.8 H Lymph % (Auto) 8.0 L [place] % (Auto) 0.9 Eos % (Auto) 0.0 Baso % (Auto) 0.1 Neut # (Auto) 8.00 H Lymph # (Auto) 0.70 L [place] # (Auto) 0.10 Eos # (Auto) 0.00 Baso # (Auto) 0.01 Abs Immat Gran (auto) 0.02 Imm/Tot Granulo (auto) 0.2 Sodium 138 Potassium 4.4 Chloride 103 Carbon Dioxide 24 Anion Gap 11 BUN 9 Creatinine 0.9 Estimated Creat Clear 75.45 Estimated GFR 81 Glucose 128 H Lactate 1.0 Calcium 9.3 Phosphorus 4.1 Magnesium 1.8 Total Bilirubin 0.6 0.6 Direct Bilirubin 0.0 0.0 AST 46 H 52 H ALT 52 H 55 H Alkaline Phosphatase 40 54 C-Reactive Protein 0.6 0.6 Total Protein 6.4 7.9 Albumin 3.6 4.6 Lipase 312 H 751 H Discharge Plan Discharge Disposition: Home, Self-Care Date of Admission: 04/28/23 21:11 Attending Provider on Discharge: Terrance Pendleton Primary Care Provider: Provider,Not a Local Condition: Improved Anticipated Discharge Date/Time: 04/29/23 20:30 Discharge Medications: New acetaminophen 325 mg Tablet 650 mg PO QID 30 Days Qty: 240 0RF hydromorphone 2 mg Tablet 6 mg PO QID PRN7 Days Qty: 84 0RF hydroxyzine pamoate 25 mg Capsule 25 mg PO QID 30 Days Qty: 120 0RF ibuprofen 400 mg tablet 400 mg PO BID Qty: 60 1RF omeprazole 20 mg capsule,delayed release(DR/EC) 20 mg PO DAILY Qty: 30 2RF Continued atorvastatin 20 mg tablet 20 mg PO HS albuterol sulfate 90 mcg/actuation HFA aerosol inhaler 2 puff INHALATION QID PRN (Reason: shortness of breath or wheezing) ondansetron 4 mg Tablet,Disintegrating 4 mg PO Q6H PRNQty: 30 0RF hyoscyamine sulfate 0.125 mg tablet, sublingual 0.125 mg PO QID PRN duloxetine 30 mg capsule,delayed release(DR/EC) 60 mg PO DAILY epinephrine 0.3 mg/0.3 mL auto-injector 0.3 mg IM ONCE PRN (Reason: allergies) tacrolimus [Protopic] 0.1 % ointment 1 applic topical BID PRN Discontinued hydroxyzine pamoate 25 mg Capsule 25 mg PO Q4H PRN (Reason: Abdominal Pain) Qty: 30 0RF hydromorphone 2 mg Tablet 4 mg PO Q4H PRNQty: 60 0RF Discharge Orders: Discharge Order (Routine); Ordered 04/29/23 Ordered By: Terrance Pendleton Patient Education: Chronic Pain (DC), Endoscopic Biliary Stent Placement (DC), ERCP (Endoscopic Retrograde Cholangiopancreatography) (DC) Additional Instructions: 1. Follow-up with your primary care physician in 5-10 days; 2. Follow-up with your [facility] perfect binder setter as planned and as needed; 3. [facility] and as needed. Activity Level: No Restrictions and Activity as Tolerated Discharge Diet: Regular Follow Up Appointments: Provider,Not a Local [Primary Care Provider] - Forms: Bablic Info Instructions
[2023-04-29] MEDS: DULOXETINE 30 MG CAPSULE DR 60 MG PO (20:42)
--- NOTE | 2023-04-29 22:22 | PC.NURSE ---
discharge: Pt alert and oriented, pleasant and cooperative, independent in room and up to bathroom. Pt complaints of pain managed with interventions in MAR with improvement. Tolerates full liquid diet well. Patient discharged with family member, signed discharge paperwork, and verbalized understanding of discharge instructions. IV removed with catheter intact. Pt discharged approximately 20:50.
== END 2023-04-29 20:50 | disposition home or self-care (01) ==
LOC: ED 20:07 → MEDSURG 21:12
PROVIDERS: Admitting Provider Internal Medicine; Emergency Provider Emergency Medicine; Visit Provider Internal Medicine
DX: K91.89 Other postprocedural complications and disorders of digestive system (principal); G89.18 Other acute postprocedural pain; K85.90 Acute pancreatitis without necrosis or infection, unspecified; K83.4 Spasm of sphincter of Oddi; R74.8 Abnormal levels of other serum enzymes; E87.8 Other disorders of electrolyte and fluid balance, not elsewhere classified; D89.40 Mast cell activation, unspecified; R10.13 Epigastric pain; R11.0 Nausea; Z79.891 Long term (current) use of opiate analgesic; G89.29 Other chronic pain; Z98.890 Other specified postprocedural states; Z90.89 Acquired absence of other organs; Z90.49 Acquired absence of other specified parts of digestive tract; Z87.891 Personal history of nicotine dependence; F32.A Depression, unspecified; F41.9 Anxiety disorder, unspecified; Z96.89 Presence of other specified functional implants; Z87.19 Personal history of other diseases of the digestive system
CPT/HCPCS: 36415; 80048; 80076; 83605; 83690; 83735; 84100; 85025; 85027; 86140; 96361; 96374; 96375; 96376; 99284; 99285; A9270; G0378; J1170; J1885; J7030

== ENCOUNTER 2023-08-10 18:48 | Outpatient (CLI) | payer OTHER, SELFPAY ==
--- OUTSIDE RECORDS SUMMARY | 2023-08-12 12:06 | XMS_ITS | Encounter Summary ---
Author Name Unknown Organization [facility] Address [address] [place] [address]. [place] [address] Care Team Providers Care Sample Case Porter Name Role Phone Jacinta Mendes MD Primary Care Provider Unavailab Jacinta Ortiz MD Unavailable Unavailable Toño Patricia MD Unavailable [phone] Toño Patricia MD Unavailable [phone] Encounter Details Date Type Department Care Team (Late st Contact Info) Description 02/01/2023 Telephone [facility] [address] [address] Toño Patricia MD [address] [place] [address] Social History Tobacco Use Types Packs/Day Years Used Date Smoking Tobacco: Former Smokeless Tobacco: Never PHQ-2 Answer Date Recorded PHQ-2 Score 1 09/11/2021 Sex and Gender Information Value Date Recorded Sex Assigned at Not on file Gender Identity Not on file Sexual Orientation Not on file documented as of this encounter Miscellaneous Notes * Telephone Encounter - Haydee Cantu RN - 02/01/2023 10:07 AM CDT ----- Message from Letitia Campbell sent at 12/17/2022 1:53 PM CDT ----- Regarding: FW: RIVKA Kahn, Would you please remove the infusion appointment request line from the therapy plan? Thank you, Letitia Singer [facility] [place] [facility] - 2nd Floor [facility] Scheduling [phone] (option 3, then option 2) ----- Message ----- From: Aleena López, RN Sent: 12/17/2022 1:29 PM CDT To: Letitia Campbell; [facility] Subject: RE: XOLAIR We never heard back. Probably ok to remove the appointment request order ----- Message ----- From: Letitia Campbell Sent: 12/11/2022 12:55 PM CDT To: [facility] Subject: RE: XOLAIR Hi, Is there any update on this pt? Thank you, Letitia Singer [facility] - 2nd Floor [facility] Scheduling [phone] (option 3, then option 2) ----- Message ----- From: Akiko Cortés, YUMIKO Sent: 11/27/2022 2:49 PM CDT To: Letitia Campbell; [facility] Subject: RE: XOLAIR Brian Dong, I left this pt a voicemail message to give us a call back and let us know the status of her injections. I will update you as soon as I hear. Thank you, Akiko ----- Message ----- From: Letitia Campbell Sent: 11/26/2022 1:47 PM CDT To: Toño Patricia MD; [facility] Subject: XOLAIR Antelmocecelia, [place] [facility] [place] - I am reaching out for clarity on these orders: Date ordered : 01/15/22 Type of Infusion: XOLAIR #If this is being done at outside of [facility] or through [facility] please remove the Infusion Appointment Request from therapy plan. Please discontinue therapy plan if infusion is not needed. Preferred infusion location (if applicable): Is patient aware they need infusion Y/N: When does it need to be done/does it need to be scheduled? It looks like coverage may have been denied. Is this still something you'd like her to do? If so, [facility] send a message to finance. If not, please remove the infusion appointment request line from the therapy plan Thank you, Letitia Singer [facility] - 2nd Floor [facility] Scheduling [phone] (option 3, then option 2) documented in this encounter Plan of Treatment Not on file documented as of this encounter Visit Diagnoses Not on filedocumented in this encounter Care Teams Sample Case Porter Relationship Specialty Start Date End Date Jacinta Mendes MD PCP - General Family Practice 03/07/14 Jacinta Mendes MD Referring Physician Family Medicine 06/19/21 Toño Patricia MD [address] [place] [address] Allergy & Immunology 06/19/21 Toño Patricia MD [address] [place] [address] [id number] Assigned Surgical Provider 09/16/21 07/18/23 documented as of this encounter
--- OUTSIDE RECORDS SUMMARY | 2023-08-12 12:06 | XMS_ITS | Encounter Summary ---
Author Name Unknown Organization [facility] Address [address] [place] [address]. [place] [address] Care Team Providers Care Coding Coordinator Name Role Phone Jacinta Mendes MD Primary Care Provider Unavailab Jacinta Ortiz MD Unavailable Unavailable Toño Patricia MD Unavailable [phone] Toño Patricia MD Unavailable [phone] Encounter Details Date Type Department Care Team (Late st Contact Info) Description 12/24/2022 Telephone [facility] [address] [address] Toño Patricia MD [address] [place] [id number] Social History Tobacco Use Types Packs/Day Years Used Date Smoking Tobacco: Former Smokeless Tobacco: Never PHQ-2 Answer Date Recorded PHQ-2 Score 1 09/11/2021 Sex and Gender Information Value Date Recorded Sex Assigned at Not on file Gender Identity Not on file Sexual Orientation Not on file documented as of this encounter Miscellaneous Notes * Telephone Encounter - Criss Dale RN - 12/24/2022 3:52 PM CDT ----- Message from Toño Patricia MD sent at 12/24/2022 2:43 PM CDT ----- Regarding: RE: plan of care If patient doesn't come for the injections, then you can cancel the plan. Patient can come to my consult if she needs another Xolair therapy Best way would be that you connect to my allergy nurses and we will discuss this together. If it stefani more complex question or problem, patient needs another consult. Moreover, I limit the duration of the Xolair or other biologics prescriptions, because I believe that these treatments should not go on forever. I need at least once yearly consults to continue (or someone in Dermatology --> I am too overbooked) Hope this helps PB ----- Message ----- From: Criss Dale RN Sent: 12/24/2022 9:51 AM CDT To: Aleena López RN; Letitia Campbell; # Subject: plan of care In Dr. Patricia, We have sent you several messages regarding several patients but are not getting a response. What is your preferred mode of communication? Email or Staff messages. Also, please advise on this pt. Can I remove the orders as they were written almost a year ago? Thank you, Criss Dale RN [facility] [phone] ----- Message ----- From: Letitia Campbell Sent: 12/17/2022 1:53 PM CDT To: Criss Dale RN Subject: FW: XOLAIR Hi Criss, Would you please remove the infusion appointment request line from the therapy plan? Thank you, Letitia Singer [facility] [place] - 2nd Floor [facility] Scheduling [phone] (option 3, then option 2) ----- Message ----- From: Aleena López RN Sent: 12/17/2022 1:29 PM CDT To: Letitia Campbell; [facility] Subject: RE: XOLAIR We never heard back. Probably ok to remove the appointment request order ----- Message ----- From: Letitia Campbell Sent: 12/11/2022 12:55 PM CDT To: [facility] Subject: RE: XOLAIR Hi, Is there any update on this pt? Thank you, Letitia Singer [facility] [place] [facility] 2nd [facility] Scheduling [phone] (option 3, then option 2) ----- Message ----- From: Akkio Cortés RN Sent: 11/27/2022 2:49 PM CDT To: Letitia Campbell; [facility] Subject: RE: RIVKA Dong, I left this pt a voicemail message to give us a call back and let us know the status of her injections. I will update you as soon as I hear. Thank you, Akiko ----- Message ----- From: Letitia Campbell Sent: 11/26/2022 1:47 PM CDT To: Toño Patricia MD; [facility] Subject: XOLAIR Gigi, Orders have [facility] [place] [facility] [place] - I am reaching out for clarity on these orders: Date ordered : 01/15/22 Type of Infusion: XOLAIR #If this is being done at outside of [facility] or through [facility] please remove the Infusion Appointment Request from therapy plan. Please discontinue therapy plan if infusion is not needed. Preferred infusion location (if applicable): Is patient aware they need infusion Y/N: When does it need to be done/does it need to be scheduled? It looks like coverage may have been denied. Is this still something you'd like her to do? If so, [facility] send a message to finance. If not, please remove the infusion appointment request line from the therapy plan Thank you, Letitia Singer [facility] [place] - 2nd Floor [facility] Scheduling [phone] (option 3, then option 2) documented in this encounter Plan of Treatment Not on file documented as of this encounter Visit Diagnoses Not on filedocumented in this encounter Care Teams Coding Coordinator Relationship Specialty Start Date End Date Jacinta Mendes MD PCP - General Family Practice 03/07/14 Jacinta Mendes MD Referring Physician Family Medicine 06/19/21 Toño Patricia MD [address] [place] [id number] Allergy & Immunology 06/19/21 Toño Patricia MD [address] [place] [id number] Assigned Surgical Provider 09/16/21 07/18/23 documented as of this encounter
--- OUTSIDE RECORDS SUMMARY | 2023-08-12 12:06 | XMS_ITS | Referral Summary ---
Author Name Unknown Organization [facility] Address [address] [place] [address]. [place] [address] Care Team Providers Care Sole Buffer Name Role Phone Jacinta Mendes MD Primary Care Provider Unavailab Jacinta Ortiz MD Unavailable Unavailable Toño Patricia MD Unavailable [phone] Allergies Active Allergy Reactions Criticality Noted Date Comments Covid-19 (Mrna) Vaccine Anaphylaxis,Hives,Itc noah,Shortness Of Breath High 07/12/2020 Other reaction(s): Edema, Flushing, Throat Swelling/Closing Fentanyl Other (See Comments) High 12/26/2011 Other reaction(s): GI Upset, sphincter of Darrell spasms Causes pain Abdominal pain Influenza Virus Vaccine 03/22/2017 Peg-2000 (Covid-19 Mrna Vaccine Component) Angioedema High 01/15/2022 Patient reacted to PEG 4000 in COVID Pfizer vaccine Medications Medication Sig Dispensed Refills Start Date End Date Status simvastatin (ZOCOR) 20 MG tablet Take 20 mg by mouth At Bedtime 0 Active DULoxetine (CYMBALTA) 60 MG capsule Take 60 mg by mouth daily 0 Active EPINEPHrine (ADRENACLICK JR) 0.15 MG/0.15ML injection 2-pack Inject 0.15 mg into the muscle as needed for anaphylaxis 0 Active albuterol (PROAIR HFA/PROVENTIL HFA/VENTOLIN HFA) 108 (90 Base) MCG/ACT inhaler Inhale 2 puffs into the lungs 0 05/31/2021 Active polyethylene glycol (MIRALAX) 17 g packet Take 1 packet by mouth daily 0 Active hydrOXYzine (ATARAX) 25 MG tablet Take 25 mg by mouth 3 times daily as needed for itching 0 Active cefTAZidime (FORTAZ) 1 GM vialIndications:Ja torres allergy For Allergy Testing in Allergy Clinic Only 1 each 0 01/15/2022 Active tacrolimus (PROTOPIC) 0.1 % external ointmentIndications :Angioedema, subsequent encounter,Mild intermittent asthma without complication,House dust mite allergy,Drug allergy Apply topically At Bedtime On palms and plants 60 g 1 01/15/2022 Active fexofenadine (FÉLIX) 180 MG tabletIndications:A ngioedema, subsequent encounter,Mild intermittent asthma without complication,House dust mite allergy TAKE ONE TABLET BY MOUTH ONE TIME DAILY IN THE P.M. 30 tablet 0 01/15/2022 Active predniSONE (DELTASONE) 50 MG tabletIndications:A ngioedema, subsequent encounter Emergency set: if severe allergic reaction take immediately 100mg Prednisone (2x50mg) and 2 Tabl Cetirizine 10mg and then write precise 12h retrospective diary. If less severe reaction take only the 2 Tabl Cetirizine 2 tablet 3 01/15/2022 Active fexofenadine (FÉLIX) 180 MG tabletIndications:A ngioedema, subsequent encounter,Mild intermittent asthma without complication,House dust mite allergy,Chronic idiopathic urticaria Take 1 tablet (180 mg) by mouth 2 times daily 60 tablet 3 06/18/2022 Active fluticasone-salmete rol (ADVAIR) 250-50 MCG/ACT inhalerIndications: Angioedema, subsequent encounter,Mild intermittent asthma without complication,House dust mite allergy INHALE ONE PUFF BY MOUTH EVERY TWELVE HOURS 60 each 3 08/22/2022 Active Active Problems Problem Noted Date Diagnosed Date Angioedema, subsequent encounter 01/15/2022 Chronic idiopathic urticaria 01/15/2022 Social History Tobacco Use Types Packs/Day Years Used Date Smoking Tobacco: Former Smokeless Tobacco: Never PHQ-2 Answer Date Recorded PHQ-2 Score 1 09/11/2021 Adolescent Education Answer Date Record ed Getting School Help Needed Not on file 04/11 Sex and Gender Information Value Date Recorded Sex Assigned at Not on file Gender Identity Not on file Sexual Orientation Not on file Plan of Treatment Not on file Care Teams Sole Buffer Relationship Specialty Start Date End Date Jacinta Mendes MD PCP - General Family Practice 03/07/14 Jacinta Mendes MD Referring Physician Family Medicine 06/19/21 Toño Patricia MD [address] [place] [id number] Allergy & Immunology 06/19/21
--- OUTSIDE RECORDS SUMMARY | 2023-08-12 12:06 | XMS_ITS | Clinical Summary ---
Author Name Unknown Organization [facility] Address [address] [place] [address]. [place] [address] Care Team Providers Care Vegetable Buncher Name Role Phone Jacinta Mendes MD Primary Care Provider Unavailab Jacinta Ortiz MD Unavailable Unavailable Toño Patricia MD Unavailable [phone] Allergies Active Allergy Reactions Criticality Noted Date [...] Orientation Not on file Plan of Treatment Health Maintenance Due Date Last Done Comments ADVANCE CARE PLANNING 1979 ANNUAL REVIEW OF HM ORDERS 1979 ASTHMA ACTION PLAN 1979 ASTHMA CONTROL TEST 1979 HEPATITIS B IMMUNIZATION (1 of 3 - 3-dose series) 1979 HIV SCREENING 12/07/1994 HEPATITIS C SCREENING 12/07/1997 PAP 12/07/2000 YEARLY PREVENTIVE VISIT 06/12/2021 06/12/2020 COVID-19 Vaccine ( season) 2023 10/15/2021, 09/01/2021, 12/28/2020, Additional history exists INFLUENZA VACCINE (#1) 2023 PHQ-2 (once per calendar year) 2023 01/16/2022, 09/11/2021 DTAP/TDAP/TD IMMUNIZATION (3 - Td or Tdap) 03/06/2027 03/06/2017, 07/21/2006 HPV IMMUNIZATION Aged Out No longer e ligible based on patient's age to complete this topic IPV IMMUNIZATION Aged Out No longer e ligible based on patient's age to complete this topic MENINGITIS IMMUNIZATION Aged Out No l onger eligible based on patient's age to complete this topic Pneumococcal Vaccine: Pediatrics (0 to 5 Years) and At-Risk Patients (6 to 64 Years) Aged Out No longer eligible based on patient's age to complete this topic RSV MONOCLONAL ANTIBODY Aged Out No l onger eligible based on patient's age to complete this topic Care Teams Vegetable Buncher Relationship Specialty Start Date End Date Jacinta Mendes MD PCP - General Family Practice 03/07/14 Jacinta Mendes MD Referring Physician Family Medicine 06/19/21 Toño Patricia MD [address] [place] [id number] Allergy & Immunology 06/19/21
--- OUTSIDE RECORDS SUMMARY | 2023-08-12 12:07 | XMS_ITS | Encounter Summary ---
Author Name Unknown Organization [facility] Address [address] [place] [address]. [place] [address] Care Team Providers Care Guard Lieutenant Name Role Phone Jacnita Mendes MD Primary Care Provider Unavailab Jacinta Ortiz MD Unavailable Unavailable Toño Patricia MD Unavailable [phone] Toño Patricia MD Unavailable [phone] Encounter Details Date Type Department Care Team (Late st Contact Info) Description 01/16/2022 [facility] [address] [address] Toño Patricia MD [address] [place] [phone] Social History Tobacco Use Types Packs/Day Years Used Date Smoking Tobacco: Former Smokeless Tobacco: Never PHQ-2 Answer Date Recorded PHQ-2 Score 1 09/11/2021 Sex and Gender Information Value Date Recorded Sex Assigned at Not on file Gender Identity Not on file Sexual Orientation Not on file COVID-19 Exposure Response Date Recorded In the last 10 days, have yo u been in contact with someone who was confirmed or suspected to have Coronavirus/COVID-19? No / Unsure 01/15/2022 11:17 AM CDT documented as of this encounter Plan of Treatment Not on file documented as of this encounter Visit Diagnoses Not on filedocumented in this encounter Care Teams Guard Lieutenant Relationship Specialty Start Date End Date Jacinta Mendes MD PCP - General Family Practice 03/07/14 Jacinta Mendes MD Referring Physician Family Medicine 06/19/21 Toño Patricia MD [address] [place] [address] Allergy & Immunology 06/19/21 Toño Patricia MD [address] [place] [address] Assigned Surgical Provider 09/16/21 07/18/23 documented as of this encounter
--- OUTSIDE RECORDS SUMMARY | 2023-08-12 12:07 | XMS_ITS | Clinical Summary ---
Author Name Unknown Organization [facility] Address [place], [place] [address] Care Team Providers Care Engineer Assistant Name Role Phone Omar Vogt MD Unavailable Facundo Bell RN Unavailable Annika Huff NP Unavailable Pcp, No Primary Care Provider Unavailabl e Allergies Active Allergy Reactions Criticality Noted Date Comments Codeine Nausea And Vomiting 05/25/2005 Covid-19 Vacc,Mrna(Pfizer)(Pf) Anaphylaxis,Edema,Flus noah,Hives,Itching,Joseline rtness Of Breath,Throat Swelling/Closing High 07/12/2020 Egg Anaphylaxis High 05/12/2012 Ducks eggs Fentanyl GI Upset,Other - Describe In Comment Field 12/26/2011 Causes pain Abdominal pain Influenza Virus Vaccines Anaphylaxis High 05/25/2005 Latex Rash Low 05/25/2005 Nut - Unspecified Other - Describe In Comment Field 09/22/2014 pt allergic to walnuts Polyethyl Glycol-Polyvinyl Alc *Unknown 01/16/2022 Medications Medication Sig Dispensed Refills Start Date End Date Status diphenhydrAMINE (BENADRYL) 50 mg capsuleIndications:H gela Take 1 capsule by mouth every 6 hours if needed. 0 11/08/2013 Active LORazepam (ATIVAN) 0.5 mg tabIndications:Chron ic recurrent pancreatitis (HC),Epigastric pain Take 1-2 tabs po q 8 hours prn 30 Tablet 0 05/31/2021 Active hydrOXYzine HCL (ATARAX) 25 mg tabletIndications:Sl eep disturbance Take 1-2 tab po q bedtime as needed 60 Tablet 0 05/31/2021 Active albuterol HFA (PRO-AIR; VENTOLIN; PROVENTIL) 90 mcg/actuation inhalerIndications:M ultiple allergies Inhale 2 Puffs by mouth 4 times daily if needed. 8 g 0 05/31/2021 Active ondansetron (ZOFRAN ODT) 4 mg disintegrating tabletIndications:Ab dominal pain, acute, epigastric Place 1 Tablet (4 mg) on the tongue every 6 hours if needed for Nausea/Vomiting. 30 tablet. 3 08/14/2021 Active tacrolimus 0.1% (PROTOPIC) 0.1 % ointment Apply topically to affected area(s). 0 01/15/2022 Active fexofenadine (FÉLIX) 180 mg tablet Take 1 Tablet by mouth once daily in the evening. Twice daily 0 09/11/2021 Active fluticasone propion-salmeteroL (ADVAIR) 250-50 mcg/Dose diskus inhaler Inhale 1 Puff by mouth in the morning and 1 Puff in the evening. 0 09/11/2021 Active predniSONE (DELTASONE) 50 mg tab tablet Emergency set: if severe allergic reaction take immediately 100mg Prednisone (2x50mg) and 2 Tabl Cetirizine 10mg and then write precise 12h retrospective diary. If less severe reaction take only the 2 Tabl Cetirizine 0 01/15/2022 Active cefTAZidime (FORTAZ) 1 gram solr 1x monthly 0 01/15/2022 Active EPINEPHrine (EpiPen) 0.3 mg/0.3 mL auto-injectorIndicat ions:Multiple allergies Inject 0.3 mg (1 pen.) intramuscular one time if needed for Allergic Reaction. 0.6 mL 1 08/16/2022 Active HYDROmorphone (DILAUDID) 4 mg tabletIndications:Ch ronic recurrent pancreatitis (HC) Take 0.5-1 Tablets (2-4 mg) by mouth every 6 hours if needed for Pain. 10 Tablet 0 08/16/2022 Active atorvastatin (LIPITOR) 20 mg tabletIndications:Hy perlipidemia, unspecified hyperlipidemia type Take 1 Tablet (20 mg) by mouth at bedtime. 60 Tablet 0 11/12/2022 Active DULoxetine (CYMBALTA) 60 mg Delayed-release capsuleIndications:A djustment disorder with mixed anxiety and depressed mood TAKE ONE CAPSULE BY MOUTH ONE TIME DAILY 30 Capsule 0 02/12/2023 Active methylPREDNISolone (Medrol, Michael,) 4 mg tabletIndications:Ac krissy right-sided low back pain without sciatica Take by mouth as instructed per packaging. 21 Tablet 0 02/12/2023 Active cyclobenzaprine (FLEXERIL) 5 mg tabletIndications:Ac krissy right-sided low back pain without sciatica Take 1-2 Tablets (5-10 mg) by mouth 3 times daily if needed for Muscle Spasm. 21 Tablet 0 02/12/2023 Active ibuprofen (ADVIL; MOTRIN) 800 mg tabletIndications:Ac krissy right-sided low back pain without sciatica Take 1 Tablet (800 mg) by mouth three times daily with meals. 90 Tablet 0 02/12/2023 Active HYDROmorphone (Dilaudid) 4 mg tabletIndications:Ac krissy right-sided low back pain without sciatica Take 1 Tablet (4 mg) by mouth every 6 hours if needed for Pain. 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 Chronic idiopathic urticaria 01/15/2022 Angio-edema 01/15/2022 Chronic recurrent pancreatitis 05/31/2021 Overview: [facility] S/p sphinterotomy Hyperlipidemia 09/27/2020 Dyshidrotic eczema 10/23/2016 S/P ERCP 03/30/2014 Intractable pain 03/30/2014 Overview: Joint pain : saw rheumatology CHARLENE, RA , CRP negative Flushing 12/09/2011 Overview: TOTAL METANEPHRINE 24HR U Latest Ref Range: 149 - 535 mcg/24 h 677 (H) 5 HIAA,24HR URINE Latest Ref Range: <8.1 mg/24 h 22.9 (H) 5.4 4.4 METANEPHRINES,24HR Latest Ref Range: 30 - 180 mcg/24 h 167 NORMETANEPHRINE,24HR UR Latest Ref Range: 111 - 419 mcg/24 h 510 (H) Hx of anaphylaxis 12/09/2011 Overview: Multiple triggers Reacted to COVID-19 shot Adjustment disorder with mixed anxiety and depre ssed mood 04/08/2008 Anemia, unspecified 06/01/2005 Encounters Date Type Department Care Team Description 05/12/2023 10:00 AM CDT Ancillary Procedure [facility] [address] [place] [address] 05/12/2023 Travel from Last 3 Months Immunizations Name Administration Dates Next Due COVID-19 vaccine (Lisa-J&J) DARYA MCFADDEN 2,09/01/2021 COVID-19 vaccine ([employer] 30mcg/0.3mL) DARYA Minaya 07/12/2020 Td, Preservative Free (age >= 7 Years) 7 Tdap 07/21/2006 Tuberculin (PPD) 11/24/2013,11/15/2013 Family History Medical History Relation Name Comments Anxiety disorder Brother 1 32 Hyperlipidemia Brother 1 32 Alcoholism Brother 2 30 Anxiety disorder Brother 2 30 Drug Abuse Brother 2 30 Hyperlipidemia Brother 2 30 Coronary artery disease Father 71 Hyperlipidemia Father 71 Coronary artery disease Maternal Grandfather Hyperlipidemia Maternal Grandfather Hypertension Maternal Grandfather Stroke Maternal Grandfather Dementia Maternal Grandmother Hyperlipidemia Maternal Grandmother Hypertension Maternal Grandmother Obesity Maternal Grandmother Anxiety disorder Mother 70 Blood Disease Mother 70 Factor V Leide n Clotting disorder Mother 70 Depression Mother 70 Diabetes Mother 70 Hyperlipidemia Mother 70 Hypertension Mother 70 Other Mother 70 6 prior miscarr iages with no known h/o clotting Psychiatric illness Mother 70 depressi on/?bipolar Coronary artery disease Paternal Grandmother Hyperlipidemia Paternal Grandmother Hypertension Paternal Grandmother Uterine cancer Paternal Grandmother GI Disease Paternal Uncle rare GI d/o c ausing at age 44 Anxiety disorder Sister 1 45 GI Disease Sister 1 45 irritable bowel syndrome Hyperlipidemia Sister 1 45 Obesity Sister 1 45 Anxiety disorder Sister 2 38 Hyperlipidemia Sister 2 38 Anxiety disorder Sister 3 36 Hyperlipidemia Sister 3 36 Cancer-breast No Family History Cancer-ovarian No Family History Relation Name Status Comments Brother 1 32 Alive Brother 2 30 Alive Father 71 Alive Maternal Grandfather Maternal Grandmother Mother 70 Alive Paternal Grandfather Paternal Grandmother Paternal Uncle Sister 1 45 Alive Sister 2 38 Alive Sister 3 36 Alive Social History Tobacco Use Types Packs/Day Years Used Date Smoking Tobacco: Former Cigarettes 0.5 4 2 000 - 2004 Smokeless Tobacco: Never Tobacco Cessation:Counseling Given: No Alcohol Use Standard Drinks/Week Comments No 0 (1 standard drink = 0.6 oz pur e alcohol) PHQ-2 Answer Date Recorded PHQ-2 TOTAL SCORE 1 08/16/2022 Social Connections Answer Date Recorded Frequency of Communication with Friends and Fami ly 0 08/16/2022 Financial Resource Strain Answer Date R ecorded Difficulty of Paying Living Expenses 3 08/16/2022 Difficulty of Paying Living Expenses Not on file 08/16/2022 Food Insecurity Answer Date Recorded Worried About Running Out of Food in the Last Ye ar 1 08/16/2022 Transportation Needs Answer Date Record ed Lack of Transportation (Medical) 1 08/16/2022 Housing Stability Answer Date Recorded Unable to Pay for Housing in the Last Year 1 08/16/2022 Sex and Gender Information Value Date Recorded Sex Assigned at Not on file Gender Identity Not on file Sexual Orientation Not on file Obstetrics History Para Term AB IAB SAB Ectopic Multiple Livin g Live Births 3 2 2 1 1 2 2 Date Outcome GA Total Labor Labor/2nd/3rd Weight Sex Delivery Anes PTL Jayla A1 A5 Name Cl in SAB 11/30 Term 40w 0d 36h 00m/ 3.12 kg (6 lb 14 oz) M Vag Radha ng Jeremy 12/23 Term 38w 0d 16h 00m/ 3.71 kg (8 lb 3 oz) M Vag Radha ng Liz suarez Last Filed Vital Signs Vital Sign Reading Time Taken Comments Blood Pressure 128/80 04/28/2023 3:45 PM CDT Pulse 75 04/28/2023 3:45 PM CDT Temperature 36.7 ??C (98.1 ??F) 04/28/2023 2:34 PM CD T Respiratory Rate 16 04/28/2023 2:34 PM CDT Oxygen Saturation 95% 04/28/2023 3:45 PM CDT Inhaled Oxygen Concentration - - Weight 93.4 kg (206 lb) 03/18/2023 9:00 AM CDT Height 167.6 cm (5' 6) 04/28/2023 1:14 PM CDT Body Mass Index 33.27 03/18/2023 9:00 AM CDT Plan of Treatment Health Maintenance Due Date Last Done Comments COVID-19 vaccine series ( season) 2023 10/15/2021, 09/01/2021, 12/28/2020, Additional history exists Depression screening for age 12+ 08/16/2023 08/16/2022, 09/11/2021, 09/10/2021, Additional history exists BMI (ht and wt on same day) for age 18+ 03/18/2024 03/18/2023, 02/11/2023, 12/03/2022, Additional history exists Pap test for age 21-65 06/12/2025 , 06/12/2020, 03/06/2017, Additional history exists Tetanus booster 03/06/2027 03/06/2017, 07/2006, 07/21/2006 Tdap Completed 07/21/2006 HIV for age 15-65 Completed 05/22/2007 Hepatitis C screening for age 18-79 Completed 08/16/2022 Influenza for age 9-49 Discontinued Pneumococcal series for age 6-64 Aged Out No longer eligible based on patient's age to complete this topic Medical Devices Implanted Type Area Journeyman Pressman Device Identifier Shelf Expiration Date Model / Serial / Lot Stent Pancreatic 5fr 3cm Gpso Lory - [id number] Implanted:Qty: 1 on 03/29/2014 at [facility] 07/21/2016 GPSO- 5-3# / / [id number] Stent Pancreatic 3ssd8to Lory Sof-Flex - [id number] Implanted:Qty: 1 on 04/28/2023 by Meagan Fraga MD at [facility] N/A: Pancreas [facility] GPSO-SF-5 -5 / / [id number] Procedures Procedure Name Priority Date/Time Associated Diagnosis Comments XR ABDOMEN 1 VIEW Routine 05/12/2023 10: 03 AM CDT Presence of pancreatic duct stent from Last 3 Months Results * XR ABDOMEN 1 VIEW (05/12/2023 10:03 AM CDT) Anatomical Region Laterality Modality Abdomen Computed Radiogr aphy 05/12/2023 10:3 2 AM CDT Narrative 05/12/2023 10:32 AM CDT For Patients: ??As a result of the Cures Act, medical imaging exams and procedure reports are released immediately into your electronic medical record. ??You may view this report before your referring provider. ??If you have questions, please contact your health care provider. Indication: Abdomen pain Technique: Abdomen 1 view. Comparison: 01/09/2017 Findings: Postoperative changes of cholecystectomy. Moderate stool in the colon. Psoas margins maintained. Osseous structures normal. No abnormal intra-abdominal calcifications. Impression: Moderate stool in the colon suggesting constipation. Dictated by Charlie Rosario MD @ May 12 2023 10:32AM (Electronically Signed) ?? Procedure Note Charlie Rosario MD - 05/12/2023 For Patients: As a result of the Cures Act, medical imagingexams and procedure reports are released immediately into your electronicmedical record. You may view this report before your referring provider.If you have questions, please contact your health care provider. Indication: Abdomen pain Technique: Abdomen 1 view. Comparison: 01/09/2017 Findings: Postoperative changes of cholecystectomy. Moderate stool in the colon.Psoas margins maintained. Osseous structures normal. No abnormalintra-abdominal calcifications. Impression: Moderate stool in the colon suggesting constipation. Dictated by Charlie Rosario MD @ May 12 2023 10:32AM (Electronically Signed) Meagan Fraga MD GENERAL IMAGI NG from Last 3 Months Advance Directives Latest Code Status on File Code Status Date Activated Date Inactivated Comments Full Code 04/28/2023 1:37 PM 04/28/2023 6:39 PM Question Answer Comments Code Status Discussion: Unable to Assess Preferences, Provider to review later Code Status History Code Status Date Activated Date Inactivated Comments Full Code 11/28/2015 8:19 AM 11/29/2015 2:47 PM Full Code 03/29/2014 8:45 AM 03/31/2014 7:39 PM Full Code 03/29/2014 8:39 AM 03/29/2014 8:45 AM Full Code 12/26/2011 9:18 AM 12/27/2011 2:17 AM Care Teams Engineer Assistant Relationship Specialty Start Date End Date Pcp, No . PCP - General 01/31/23 Omar Vogt MD Allergy and Immunology 12/04/11 Facundo Bell, RN [address] [place], [place] [address] Registered Nurse 11/05/22 Annika Huff VISITOR SERVICES SPECIALIST [address] [place] [id number] Nurse Practitioner - Family 11/05/22
--- OUTSIDE RECORDS SUMMARY | 2023-08-12 12:07 | XMS_ITS | Encounter Summary ---
Author Name Unknown Organization [facility] Address [address] [place] [address]. [id number] Care Team Providers Care Vault Keeper Name Role Phone Jacinta Mendes MD Primary Care Provider Unavailab Jacinta Ortiz MD Unavailable Unavailable Toño Patricia MD Unavailable [phone] Toño Patricia MD Unavailable [phone] Reason for Visit * Reason Comments Medication Refill Fluticasone-Salmeter ol Inhalation Aerosol Powder Breath Activated 250-50 MCG/ACT Encounter Details Date Type Department Care Team (Late st Contact Info) Description 08/15/2022 Refill [facility] [address] [id number] Toño Patricia MD [address] [place] [id number] Medication Refill (Fluticasone-Salmeterol Inhalation Aerosol Powder Breath Activated 250-50 MCG/ACT) Social History Tobacco Use Types Packs/Day Years Used Date Smoking Tobacco: Former Smokeless Tobacco: Never PHQ-2 Answer Date Recorded PHQ-2 Score 1 09/11/2021 Sex and Gender Information Value Date Recorded Sex Assigned at Not on file Gender Identity Not on file Sexual Orientation Not on file documented as of this encounter Miscellaneous Notes * Telephone Encounter - Yamileth Varghese RN - 08/21/2022 6:28 AM CST Fluticasone-Salmeterol Inhalation Aerosol Powder Breath Activated 250-50 MCG/ACT Last Written Prescription Date: 01/15/2022 Last Fill Quantity: 60, # refills: 0 Last Office Visit : 01/15/2022 Future Office visit: None Routing refill request to provider for review/approval because: Gaps in Refills. Refer to Provider for review and refills per Providers orders for Pt care. Yamilteh Varghese RN Central Triage Red Flags/Med Refills INSTRUCTOR documented in this encounter Plan of Treatment Not on file documented as of this encounter Visit Diagnoses Diagnosis Angioedema, subsequent encounter Mild intermittent asthma without complication Unspecified asthma House dust mite allergy Allergy, unspecified not elsewhere classified documented in this encounter Care Teams Vault Keeper Relationship Specialty Start Date End Date Jacinta Mendes MD PCP - General Family Practice 03/07/14 Jacinta Mendes MD Referring Physician Family Medicine 06/19/21 Toño Patricia MD [address] [place] [address] [id number] Allergy & Immunology 06/19/21 Toño Patricia MD [address] [place] [address] [id number] Assigned Surgical Provider 09/16/21 07/18/23 documented as of this encounter
== END 2023-08-10 18:49 | disposition home or self-care (01) ==
LOC: AMB 08-12 12:05
PROVIDERS: Visit Provider Student in an Organized Health Care Education/Training Program
DX: R22.1 Localized swelling, mass and lump, neck (principal); T63.441A Toxic effect of venom of bees, accidental (unintentional), initial encounter
CPT/HCPCS: A0998

== ENCOUNTER 2023-11-29 18:18 | Observation (INO) | payer OTHER, SELFPAY ==
[2023-11-29] VITALS (12 sets, daily range): BP systolic 107–137; BP diastolic 71–89; PULSE 60–90; RESP 14–16; TEMP 36.2–36.8; O2SAT 97–100; BMI 34.2; BMI 34.4
[2023-11-29] MEDS: 0.9 % SODIUM CHLORIDE 1000 ml 1,000 ML IV (18:40)
--- NOTE | 2023-11-29 18:40 | ED.ABDPAIN ---
HPI - Abdominal Pain General Chief Complaint: Abdominal Pain Stated Complaint: abdominal pain Time Seen by Provider: 11/29/23 18:34 History of Present Illness HPI narrative: This 42-year-old female comes in with upper epigastric abdominal pain that is worsened over the past couple days. She has a history of chronic pancreatitis and now has been diagnosed also with exocrine pancreatic insufficiency. She states that this feels like her previous flare-ups of pancreatitis. She always has some pain and has been on big doses of narcotic medications in the past but reports that she has weaned off of these and not taken any narcotics for the past couple months. She did take Dilaudid prior to arrival without much relief. She does arrive here with normal vital signs. She states that her main reason for visiting here is to get some help with pain relief. She also reports some diarrhea symptoms over the past week or so and thinks that might help to have some IV fluids. Related Data Home Medications Medication Instructions Recorded Confirmed albuterol sulfate 90 mcg/actuation 2 puff inhalation QID PRN 02/11/22 04/29/23 aerosol inhaler shortness of breath or wheezing atorvastatin 20 mg tablet 20 mg PO HS 02/11/22 04/29/23 epinephrine 0.3 mg/0.3 mL 0.3 mg IM ONCE PRN allergies 04/06/23 04/29/23 injection, auto-injector tacrolimus 0.1 % topical ointment 1 applic topical BID PRN 04/06/23 04/29/23 (Protopic) duloxetine 30 mg capsule,delayed 60 mg PO DAILY 04/29/23 04/29/23 release hyoscyamine sulfate 0.125 mg 0.125 mg PO QID PRN 04/29/23 04/29/23 sublingual tablet Previous Rx's Medication Instructions Recorded ondansetron 4 mg disintegrating 4 mg PO Q6H PRN #30 tabs 04/23/23 tablet acetaminophen 325 mg tablet 650 mg (2 x 325 mg) PO QID 30 days 04/29/23 #240 tabs hydromorphone 2 mg tablet 6 mg (3 x 2 mg) PO QID PRN 7 days 04/29/23 #84 tabs hydroxyzine pamoate 25 mg capsule 25 mg PO QID 30 days #120 caps 04/29/23 ibuprofen 400 mg tablet 400 mg PO BID #60 tabs 04/29/23 omeprazole 20 mg capsule,delayed 20 mg PO DAILY #30 caps 04/29/23 release Allergies Allergy/AdvReac Type Severity Reaction Status Date / Time polyethylene glycol Allergy Anaphylaxis Verified 02/11/22 17:49 fentanyl AdvReac pain Verified 02/11/22 17:49 Review of Systems Status of ROS Reports: 10 or more systems reviewed and unremarkable except as noted in History and below Narrative Constitutional: No fevers, no weight gain or loss. Eyes: No discharge. No vision changes. HENT: No congestion, no sore throat, no ear pain. Cardiovascular: No chest pain, no palpitations. Respiratory: No shortness of breath, no wheezes, no cough. Gastrointestinal: Upper epigastric abdominal pain. Recurrent episodes of diarrhea. Genitourinary: No dysuria, no hematuria. Musculoskeletal: Normal range of motion. Skin: No rashes, no pruritis. Neurological: No dizziness, weakness, sensory change, speech change. Endo/Heme/Allergies: No bruising or bleeding. No polydipsia. Pysch: no suicidality, no anxiety, no insomnia. All other systems reviewed and are negative. 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 - Mast cell activation, unspecified (ICD-10) Sphincter of Oddi spasm ?K83.4 - Spasm of sphincter of Oddi (ICD-10) Sphincter of Oddi dysfunction (Unknown) ?K83.4 - Spasm of sphincter of Oddi (ICD-10) Surgical History (Updated 05/01/23 @ 00:00 by Martell Christopher) History of tonsillectomy and adenoidectomy ?Z90.89 - Acquired absence of other organs (ICD-10) Hx of appendectomy ?Z90.49 - Acquired absence of other specified parts of digestive tract (ICD-10) Hx laparoscopic cholecystectomy ?Z90.49 - Acquired absence of other specified parts of digestive tract (ICD-10) History of sphincterotomy of sphincter of Oddi ?Z98.890 - Other specified postprocedural states (ICD-10) Family History Sister Danika's disease Sister Raynaud phenomenon Mother Rheumatoid arthritis Erythema multiforme Social History Narrative: 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 Does not drink alcohol or use recreational drugs. Getting medical care through [facility] in [place]. What is your current living situation?: I presently have a place to live Problems where you live: no known problems Problems where you live details: None noted In the past 12 months, utilities in danger of being shut off: no In past 12 months, lack of transportation kept you from medical appts, meetings, work, or getting things needed for daily living: no In the past 12 mos, have been you worried that your food would run out before you had money to buy more?: never true In the past 12 mos, the food you bought just didn't last and you didn't have money to buy more?: never true Highest level of school completed/degree received: Bachelor's degree Smoking Status: Never smoker Do you use any of these nicotine containing products: None Second hand tobacco smoke exposure: No How often do you have a drink containing alcohol: never How often do you have six or more drinks on one occasion: Never AUDIT-C Alcohol total score: 0 Non-prescribed substance use: denies use Caffeine: No How often does anyone, including family, friends and others, physically hurt you: never How often does anyone, including family, friends and others, insult or talk down to you: never How often does anyone, including family, friends and others, threaten you with harm: never How often does anyone, including family, friends and others, scream or curse at you: never service: Yes Exam Narrative: Exam Narrative: Constitutional: Well-developed, well-nourished, no acute distress. HEENT: Normocephalic, atraumatic. Neck: Normal range of motion. Nontender. Supple. Heart: Regular. No murmurs. Normal rate. Intact distal pulses. Lungs: Clear to auscultation. No chest discomfort. No wheezes, rhonchi, or rales. Abdomen: Normal bowel sounds. Upper epigastric abdominal pain. Genitalia: Deferred. Back: No midline tenderness. Normal range of motion. Extremities: Normal range of motion. No injury. Skin: Intact. No rash. Warm. No erythema or pallor. Neurologic: No altered sensation. No weakness. Alert and oriented. Psychiatric: No suicidality. No anxiety or depression. No insomnia. Nursing notes and vitals signs are reviewed. Const: Vital Signs, click to edit/add: Vital Signs - 24 hr 11/29/23 18:24 11/29/23 19:55 11/29/23 20:00 Temperature 98.3 F Pulse Rate 60 70 Pulse Rate [Pulse Oximeter] 90 Respiratory Rate 14 Blood Pressure Blood Pressure [Ri ght Upper Arm] 137/80 Pulse Oximetry 97 100 100 Oxygen Delivery Me thod Room Air 11/29/23 20:02 11/29/23 20:15 Temperature Pulse Rate 63 69 Pulse Rate [Pulse Oximeter] Respiratory Rate Blood Pressure 126/77 Blood Pressure [Ri ght Upper Arm] Pulse Oximetry 100 100 Oxygen Delivery Me thod Course Vital Signs Vital signs: Initial Vital Signs Temperature 98.3 F 11/29/23 18:24 Temperature Source Temporal Artery Scan 11/29/23 18:24 Pulse Rate 90 11/29/23 18:24 Pulse Rhythm Regular 11/29/23 18:24 Respiratory Rate 14 11/29/23 18:24 Blood Pressure 137/80 11/29/23 18:24 Blood Pressure Mean 99 11/29/23 18:24 Blood Pressure Position Sitting 11/29/23 18:24 Pulse Oximetry 97 11/29/23 18:24 Oxygen Delivery Method Room Air 11/29/23 18:24 Vital Signs Temperature 98.3 F 11/29/23 18:24 Pulse Rate 90 11/29/23 18:24 Respiratory Rate 14 11/29/23 18:24 Blood Pressure 137/80 11/29/23 18:24 Pulse Oximetry 97 11/29/23 18:24 Oxygen Delivery Method Room Air 11/29/23 18:24 Temperature 98.3 F 11/29/23 18:24 Pulse Rate 69 11/29/23 20:15 Respiratory Rate 14 11/29/23 18:24 Blood Pressure 126/77 11/29/23 20:02 Pulse Oximetry 100 11/29/23 20:15 Oxygen Delivery Method Room Air 11/29/23 18:24 Medications Administered Medications: Discontinued Medications Generic Name Dose Route Start Last Admin Trade Name Ap PRN Reason Stop Dose Admin Hydromorphone HCl 1 mg 11/29/23 18:39 11/29/23 18:50 Hydromorphone 0.5 Mg/0.5 Ml Inj IVP 11/29/23 18:40 1 mg ONCE ONE Administration Hydromorphone HCl 1 mg 11/29/23 19:49 11/29/23 20:02 Hydromorphone 0.5 Mg/0.5 Ml Inj IVP 11/29/23 19:50 1 mg ONCE ONE Administration Sodium Chloride 1,000 mls @ 1,000 mls/hr 11/29/23 18:45 11/29/23 20:18 0.9 % Sodium Chloride 1000 Ml IV 11/29/23 19:44 Infused .Q1H ALLYSSA Infusion Ondansetron HCl 4 mg 11/29/23 18:39 11/29/23 18:45 Ondansetron 2 Mg/Ml Inj IVP 11/29/23 18:40 4 mg ONCE ONE Administration Ondansetron HCl 4 mg 11/29/23 19:49 11/29/23 20:00 Ondansetron 2 Mg/Ml Inj IVP 11/29/23 19:50 4 mg ONCE ONE Administration MDM - Abdominal Pain MDM Narrative Medical decision making narrative: This patient has chronic abdominal pain related to pancreatitis. She has had her gallbladder removed and also reports sphincter of Oddie dysfunction. She arrives here with normal vital signs. She states that she has been not taking any narcotic pain medicines for the past couple months but over the past few days with this flare up she has been taking Dilaudid 2 mg tablets. Prior to arrival today she took 8 mg of Dilaudid and yet did not get sufficient relief. An IV was established here where she received a L of normal saline and a mg of Dilaudid intravenously with Zofran 4 mg. This brought great relief of her symptoms for an hour or 2 but then she felt like she was back to where things were prior to coming here. She received a 2nd dose of the same medicines. She feels that oral medication is not working for now and thinks that it would be better if she could stay in the hospital overnight for pain relief. I did speak with Dr. Jackson who agrees with this plan. This patient has had numerous CT scans and is not showing any signs of new findings that would warrant another CT scan on top of all the ones that she has had in the past. Discharge Plan Discharge Clinical Impression: Pancreatitis Patient Disposition: Admitted As Observation Condition: Unchanged Prescriptions: No Action atorvastatin 20 mg tablet 20 mg PO HS albuterol sulfate 90 mcg/actuation HFA aerosol inhaler 2 puff INHALATION QID PRN (Reason: shortness of breath or wheezing) ondansetron 4 mg Tablet,Disintegrating 4 mg PO Q6H PRNQty: 30 0RF hyoscyamine sulfate 0.125 mg tablet, sublingual 0.125 mg PO QID PRN duloxetine 30 mg capsule,delayed release(DR/EC) 60 mg PO DAILY acetaminophen 325 mg Tablet 650 mg PO QID 30 Days Qty: 240 0RF hydromorphone 2 mg Tablet 6 mg PO QID PRN7 Days Qty: 84 0RF hydroxyzine pamoate 25 mg Capsule 25 mg PO QID 30 Days Qty: 120 0RF ibuprofen 400 mg tablet 400 mg PO BID Qty: 60 1RF omeprazole 20 mg capsule,delayed release(DR/EC) 20 mg PO DAILY Qty: 30 2RF epinephrine 0.3 mg/0.3 mL auto-injector 0.3 mg IM ONCE PRN (Reason: allergies) tacrolimus [Protopic] 0.1 % ointment 1 applic topical BID PRN Follow Up/Referrals: Provider,Not a Local [Primary Care Provider] -
[2023-11-29] MEDS: ONDANSETRON 2 MG/ML inj 4 MG IVP ×2 (18:45→20:00)
[2023-11-29] MEDS: HYDROmorphone 0.5 mg/0.5 ml inj 1 MG IVP ×3 (18:50→21:46)
--- OUTSIDE RECORDS SUMMARY | 2023-11-29 19:14 | XMS_ITS | Continuity of Care Document ---
Author Name [facility] Organization [facility] Care Team Providers [facility] Att[facility] Name Role Phone [facility] Unavailable Unavailable Problems Combined list of problems from 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 It does not include entries that were removed or entered in error. Problem Status Onset Date Problem Type Date of Resolution Comments Source Cancer cervix screening status Active Condition Mar 13 Entered By: EMIR GRACIA Comment: 06/12/2020 PAP NILM/HPV Neg,HR [facility]. Next due for co-test in 5 years, 05/2025. [facility] Chronic idiopathic urticaria Active Condition Mar 27, 2023 Entered By: EMIR GRACIA Comment: with physical component , chronic illness- [facility] - [facility] - 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 Mar 27, 2023 Entered By: EMIR GRACIA Comment: cholecystectomy and multiple ERCPs, followed [facility] in the past, - 2015 [facility] Family social history Active Condition Mar 27, 2023 Entered By: EMIR GRACIA Comment: , going through divorce,Mar 27, 2023 Entered By: EMIR GRACIA Comment: past surgical hx- Cholecystectomy,al violetta with prior dual sphincterotomies or sphincter motor dysfunction , ERCP with pancreatic manometry on 11/28/2015Sep 2022 Entered By: EMIR GRACIA Comment: Former SmokerSep 2022 Entered By: EMIR GRACIA Comment: 2 children, 2 step children,Mar 27, 2023 Entered By: EMIR GRACIA 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 Entered By: EMIR GRACIA Comment: Grandmother- utrine cancer, mother and father- CAD, DM2 , siblings- strong autoimmune [facility] Generalized anxiety disorder Active Condition [facility] History of post-traumatic stress disorder Active Condition Mar 27, 2023 Entered By: EMIR GRACIA Comment: [facility] Hyperlipidemia Active Condition Mar Entered By: EMIR GRACIA Comment: On statin [facility] Major depressive disorder Active Condition [facility] No significant change since previous mammogram Active Condition Apr 02, 2023 Entered By: EMIR GRACIA Comment: recent mammo on 04/01/23-ACR BI-RADS Category 1 - Negative. [facility] Posttraumatic stress disorder Active Condition [facility] closed stress fracture of tibia Active Condition Stretches order ed and demonstrated. DoD ankle joint pain Inactive Condition Pow er Steps issued. 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 Inactive Condition [facility] Patient Education - Injury Prevention Inactive Condition [facility] assess patient condition work-related occupational disease Inactive Condition Do[facility] visit for: ears / hearing exam Active Condition [facility] Diagnosis: ICD-10-CM F43.12 Post-traumatic stress disorder, chronic Active Diagnosis [facility] Diagnosis: ICD-10-CM K86.1 Other chronic pancreatitis Active Diagnosis [facility] Diagnosis: ICD-10-CM R19.7 Diarrhea, unspecified Active Diagnosis [facility] Diagnosis: ICD-10-CM R10.10 Upper abdominal pain, unspecified Active Diagnosis [facility] Diagnosis: ICD-10-CM G89.29 Other chronic pain Active Diagnosis [facility] Diagnosis: ICD-10-CM Z46.1 Encounter for fitting and adjustment of hearing aid Active Diagnosis [facility] Diagnosis: ICD-10-CM Z01.118 Encntr for exam of ears and hearing w oth abnormal findings Active Diagnosis [facility] Diagnosis: ICD-10-CM R10.9 Unspecified abdominal pain Active Diagnosis [facility] Diagnosis: ICD-10-CM Z00.00 Encntr for general adult medical exam w/o abnormal findings Active Diagnosis [facility] Diagnosis: ICD-10-CM Z71.89 Other specified counseling Active Diagnosis [facility] Medications Combined list of outpatient medications from 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Medications provided include 1) outpatient medications from the last 15 months, and 2) patient-reported medications. Medication Details Route Status Patient Instructions Prescription Expires Prescription Number Last Dispense Date Ordering Provider Order Date Order Qty Source ALBUTEROL 90MCG/ACTUA T (CFC-F) INHL,ORAL,8 .5GM DOSE COUNTER INHALE 1 PUFF BY INHALATI ON FOUR TIMES A DAY NEEDED FOR SHORTNES S OF BREATH INHALA TION ACTIVE 04/02/2024 [id number] 3 PRESTON GRACIA 2022 2 [facility] ATORVASTATI N CA 20MG TAB TAKE ONE TABLET BY MOUTH AT BEDTIME FOR CHOLESTE ROL ORALLY DISCONT INUED (EDIT) 03/27/2024 [id number] 3 PRESTON GRACIA 2022 90 [facility] ATORVASTATI N CA 40MG TAB TAKE ONE TABLET BY MOUTH AT BEDTIME FOR CHOLESTE ROL ORALLY ACTIVE 06/05/2024 [id number] 3 PRESTON GRACIA 2022 90 [facility] CETIRIZINE HCL 5MG TAB TAKE ONE TABLET BY MOUTH EVERY MORNING NEEDED FOR ALLERGIC REACTION ORALLY ACTIVE 04/02/2024 [id number] 3 PRESTON GRACIA 2022 90 [facility] Cetirizine Hydrochlori de (Zyrtec Eq.) Tablet 5 mg Oral TAKE ONE TABLET BY MOUTH EVERY MORNING NEEDED FOR ALLERGIC REACTION Active 04/02/2024 [id number] 3 EMIR GRACIA 2022 90 [place] [facility] CLONIDINE HCL 0.1MG TAB TAKE ONE TABLET BY MOUTH TWICE A DAY NEEDED FOR PAIN ORALLY ACTIVE 05/09/2024 [id number] 3 BETZY BOUDREAUX 2022 60 [place] [facility] CYCLOBENZAP RINE HCL 5MG TAB TAKE 1-2 TABLETS BY MOUTH THREE TIMES A DAY NEEDED FOR MUSCLE SPASMS ORALLY DISCONT INUED 03/27/2024 [id number] 3 PRESTON GRACIA 2022 180 [facility] DICYCLOMINE HCL 10MG CAP TAKE ONE CAPSULE BY MOUTH THREE TIMES A DAY NEEDED FOR PAIN ORALLY ACTIVE 05/09/2024 [id number] 3 BETZY BOUDREAUX 2022 90 [place] [facility] DULOXETINE HCL 60MG CAP,EC TAKE ONE CAPSULE BY MOUTH EVERY DAY FOR MOOD ORALLY ACTIVE 03/27/2024 [id number] 3 PRESTON GRACIA 2022 90 [facility] EPINEPHRINE (EQV-EPI-PE N) 0.3MG/0.3ML INJECTOR INJECT 1 PEN DIRECTED NEEDED FOR ALLERGIC REACTION ACTIVE 03/27/2024 [id number] 3 PRESTON GRACIA 2022 2 [facility] FEXOFENADIN E HCL 180MG TAB TAKE ONE TABLET BY MOUTH TWICE A DAY FOR ALLERGIE S ORALLY ACTIVE 05/07/2024 [id number] 3 PRESTON GRACIA 2022 180 [facility] FEXOFENADIN E HCL 60MG TAB TAKE ONE TABLET BY MOUTH TWICE A DAY FOR ALLERGIE S ORALLY DISCONT INUED (EDIT) 04/02/2024 [id number] 3 PRESTON GRACIA 2022 180 [facility] Fexofenadin e Hydrochlori de (Lyssa) Tablet 60 mg Oral TAKE ONE TABLET BY MOUTH TWICE A DAY FOR ALLERGIE S Active 04/02/2024 [id number] 3 EMIR GRACIA 2022 180 [facility] FISH OIL 1000MG (500MG DHA/EPA) CAP,ORAL TAKE ONE CAPSULE BY MOUTH EVERY MORNING FOR HIGH TRIGLYCE RIDES ORALLY ACTIVE 06/05/2024 [id number] 3 PRESTON GRACIA 2022 100 [facility] FLUTICASONE 250MCG/SALM ETEROL 50MCG INHL,ORAL,D ISKUS,60 INHALE 1 PUFF BY INHALATI ON TWICE A DAY FOR ASTHMA - RINSE MOUTH AFTER USE INHALA TION 05/26/2023 [id number] 3 PRESTON GRACIA 2022 2 [facility] HYDROMORPHO NE HCL 2MG TAB TAKE ONE TABLET BY MOUTH SIX TIMES A DAY FOR 2 DAYS, THEN TAKE ONE TABLET FIVE TIMES A DAY FOR 2 DAYS, THEN TAKE ONE TABLET FOUR TIMES A DAY FOR 2 DAYS, THEN TAKE ONE TABLET THREE TIMES A DAY FOR 2 DAYS, THEN TAKE ONE TABLET TWICE A DAY FOR 2 DAYS, THEN TAKE ONE TABLET EVERY DAY FOR 2 DAYS ORALLY DISCONT INUED 06/14/2023 [id number] 3 BETZY BOUDREAUX 2022 42 [place] [facility] HYDROMORPHO NE HCL 2MG TAB TAKE THREE TABLETS BY MOUTH THREE TIMES A DAY NEEDED FOR PAIN FOLLOW TAPER REGIMEN PROVIDED IN CLINIC ORALLY DISCONT INUED 06/08/2023 [id number] 3 BETZY BOUDREAUX 2022 36 [place] [facility] HYDROMORPHO NE HCL 2MG TAB TAKE ONE TABLET BY MOUTH EVERY 4 HOURS NEEDED FOR PAIN FOR MANAGEME NT OF ACUTE FLARES OF SEVERE PAIN. USE FOR PAIN NOT WELL MANAGED WITH OTHER CONSERVA TIVE MEASURES . FOR MANAGEME NT OF ACUTE FLARES OF SEVERE PAIN. USE FOR PAIN NOT WELL MANAGED WITH OTHER CONSERVA TIVE MEASURES . ORALLY 07/11/2023 [id number] 3 BETZY BOUDREAUX 2022 30 [facility] HYDROMORPHO NE HCL 2MG TAB TAKE TWO TABLETS BY MOUTH EVERY 6 HOURS NEEDED ORALLY ACTIVE PRESTON GRACIA 2022 [facility] HYDROXYZINE HCL 25MG TAB TAKE ONE TABLET BY MOUTH AT BEDTIME NEEDED FOR ANXIETY ORALLY 04/26/2023 [id number] PRESTON GRACIA 2022 20 [facility] HYOSCYAMINE TAB,SUBLING UAL DISSOLVE UNDER THE TONGUE THREE TIMES A DAY NEEDED SUBLIN GUAL ACTIVE PRESTON GRACIA 2022 [facility] IBUPROFEN 800MG TAB TAKE ONE TABLET BY MOUTH THREE TIMES A DAY NEEDED FOR PAIN ORALLY HOLD 03/27/2024 [id number] 3 PRESTON GRACIA 2022 180 [facility] LORAZEPAM 0.5MG TAB TAKE ONE TABLET BY MOUTH EVERY 8 HOURS NEEDED ORALLY ACTIVE PRESTON GRACIA 2022 [facility] METHYLPREDN ISOLONE 4MG TAB DOSEPAK,21 TAKE ACCORDIN G TO DIRECTIO NS IN PACKAGE BY MOUTH DIRECTED FOR ASTHMA/S EVERE ALLERGY FLARE ORALLY DISCONT INUED 03/27/2024 [id number] 3 PRESTON GRACIA 2022 1 [facility] ONDANSETRON HCL 4MG TAB TAKE ONE TABLET BY MOUTH EVERY 6 HOURS NEEDED FOR NAUSEA AND VOMITING ORALLY ACTIVE 11/19/2024 [id number] 4 [facility] 2023 20 [facility] ONDANSETRON HCL 4MG TAB TAKE ONE TABLET BY MOUTH EVERY 6 HOURS NEEDED FOR NAUSEA AND VOMITING ORALLY DISCONT INUED 03/27/2024 [id number] 3 PRESTON GRACIA 2022 30 [facility] PREDNISONE 50MG TAB TAKE TWO TABLETS BY MOUTH NEEDED ONCE FOR ANAPHYLA XIS- TAKE IMMEDIAT NISA 100MG PREDNISO NE AND 2 TABS CETIRIZI NE (5MG EACH) FOR SEVERE ALLERGIC REACTION ORALLY ACTIVE 03/27/2024 [id number] 3 PRESTON GRACIA 2022 30 [facility] TACROLIMUS 0.1% OINT,TOP APPLY THIN LAYER TOPICALL Y TWICE A DAY NEEDED FOR SEVERE ITCHING/ DERMATIT IS TOPICA LLY HOLD 03/27/2024 [id number] PRESTON GRACIA 2022 30 [facility] Allergies, Adverse Reactions, Alerts Combined list of allergies from 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 It does not include entries that were removed or entered in error. Substance Category Reaction Severity Reaction type Status Date Reported Comments Source FENTANYL Propensity to adverse reactions to drug (finding) Abdominal pain SEVERE active 3 [facility] FLUARIX (INFLUENZA TVS 12-25 VACCINE/PF ) Drug allergy (disorder) Unknown active 7 [place], [place] INFLUENZA Propensity to adverse reactions to drug (finding) Anaphylaxis SEVERE active 3 [facility] MIRALAX Propensity to adverse reactions to drug (finding) Anaphylaxis SEVERE active 3 [facility] PFIZER COVID-19 VACCINE (EUA) Propensity to adverse reactions to drug (finding) Anaphylaxis, Urticaria, Itching, Dyspnea SEVERE active 3 [facility] Immunizations Combined list of available immunizations from the 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 Immunization Series Date Given Administered By Site Reaction Lot Number CVX Code Drug Supervisor Coil Winding Status Comments Source COVID-19 (STEPHANIE), VECTOR-NR, RS-AD26, PF, 0.5 ML 4 2021 212 complet [facility] COVID-19 (STEPHANIE), VECTOR-NR, RS-AD26, PF, 0.5 ML 3 2021 212 complet [facility] COVID-19 vaccine, vector-nr, rS-Ad26, PF, 0.5 mL 2021 ATTARIAN, () Not Given COVID-19 vaccine, vector-nr , rS-Ad26, PF, 0.5 mL [facility] COVID-19 vaccine, vector-nr, rS-Ad26, PF, 0.5 mL 2021 ATTARIAN, [employer] (JSN) Not Given COVID-19 vaccine, vector-nr , rS-Ad26, PF, 0.5 mL [facility] COVID-19 (STEPHANIE), VECTOR-NR, RS-AD26, PF, 0.5 ML 2 2020 212 complet [facility] COVID-19 ([employer]), MRNA, LNP-S, PF, 30 MCG/0.3 ML DOSE 1 2019 208 complet [facility] TD (ADULT) 2016 138 complet [facility] TD (ADULT), 5 LF TETANUS TOXOID, PRESERVATIVE FREE, ADSORBED 2016 113 complet [facility] TDAP 2006 115 [facility] Results Combined list of recent chemistry, hematology and other laboratory results from Department of Defense and Veterans Affairs, ranging from 15 months to all on record, depending upon the facility. Order Name Results Value Reference Range Date Interpretation Specimen Comments Source EXTRA MINT TUBE EXTRA MINT TUBE RECEIVED 09/10 Specimen Type: PLASMA No comment entered. Ordering Provider: IRVING POWELL Report Released Date/Time: Sep 10, 2023 07:55 PM Reporting Lab: [facility] [address] Performing Lab: [facility] [phone] [place] [facility] LIPASE LIPASE [ENZYMATIC ACTIVITY/V OLUME] IN SERUM OR PLASMA 68 <60 - 60 09/10 H Specimen Type: PLASMA No comment entered. Ordering Provider: IRVING POWELL Report Released Date/Time: Sep 10, 2023 07:49 PM Reporting Lab: [facility] [address] Performing Lab: [facility] [address] [place] [facility] COMPREHE NSIVE METABOLI C PANEL+MG CREATININE [MASS/VOLU ME] IN SERUM OR PLASMA 1.0 0.5 - 1.0 09/10 Specimen Type: PLASMA No comment entered. Ordering Provider: IRVING POWELL Report Released Date/Time: Sep 10, 2023 07:49 PM Reporting Lab: [facility] [phone] Performing Lab: [facility] [address] [place] [facility] COMPREHE NSIVE METABOLI C PANEL+MG UREA NITROGEN [MASS/VOLU ME] IN SERUM OR PLASMA 13 7 - 20 09/10 Specimen Type: PLASMA No comment entered. Ordering Provider: IRVING POWELL Report Released Date/Time: Sep 10, 2023 07:49 PM Reporting Lab: [facility] [phone] Performing Lab: [facility] [phone] [place] [facility] COMPREHE NSIVE METABOLI C PANEL+MG GLUCOSE [MASS/VOLU ME] IN SERUM OR PLASMA 94 70 - 100 09/10 Specimen Type: PLASMA No comment entered. Ordering Provider: IRVING POWELL Report Released Date/Time: Sep 10, 2023 07:49 PM Reporting Lab: [facility] [phone] Performing Lab: [facility] [address] [place] [facility] COMPREHE NSIVE METABOLI C PANEL+MG SODIUM [MOLES/VOL UME] IN SERUM OR PLASMA 136 136 - 145 09/10 Specimen Type: PLASMA No comment entered. Ordering Provider: IRVING POWELL Report Released Date/Time: Sep 10, 2023 07:49 PM Reporting Lab: [facility] [address] Performing Lab: [facility] [address] [place] [facility] COMPREHE NSIVE METABOLI C PANEL+MG POTASSIUM [MOLES/VOL UME] IN SERUM OR PLASMA 3.8 3.5 - 5.1 09/10 Specimen Type: PLASMA No comment entered. Ordering Provider: IRVING POWELL Report Released Date/Time: Sep 10, 2023 07:49 PM Reporting Lab: [facility] [address] Performing Lab: [facility] [address] [place] [facility] COMPREHE NSIVE METABOLI C PANEL+MG CHLORIDE [MOLES/VOL UME] IN SERUM OR PLASMA 104 98 - 107 09/10 Specimen Type: PLASMA No comment entered. Ordering Provider: IRVING POWELL Report Released Date/Time: Sep 10, 2023 07:49 PM Reporting Lab: [facility] [phone] Performing Lab: [facility] [phone] [place] [facility] COMPREHE NSIVE METABOLI C PANEL+MG CARBON DIOXIDE, TOTAL [MOLES/VOL UME] IN SERUM OR PLASMA - 09/10 L Specimen Type: PLASMA No comment entered. Ordering Provider: IRVING POWELL Report Released Date/Time: Sep 10, 2023 07:49 PM Reporting Lab: [facility] [address] Performing Lab: [facility] [address] [place] [facility] COMPREHE NSIVE METABOLI C PANEL+MG CALCIUM [MASS/VOLU ME] IN SERUM OR PLASMA 9.4 8.4 - 10.2 09/10 Specimen Type: PLASMA No comment entered. Ordering Provider: IRVING POWELL Report Released Date/Time: Sep 10, 2023 07:49 PM Reporting Lab: [facility] [address] Performing Lab: [facility] [address] [place] [facility] COMPREHE NSIVE METABOLI C PANEL+MG PROTEIN [MASS/VOLU ME] IN SERUM OR PLASMA 7.2 6.0 - 8.3 09/10 Specimen Type: PLASMA No comment entered. Ordering Provider: IRVING POWELL Report Released Date/Time: Sep 10, 2023 07:49 PM Reporting Lab: [facility] [phone] Performing Lab: [facility] [address] [place] [facility] COMPREHE NSIVE METABOLI C PANEL+MG ALBUMIN [MASS/VOLU ME] IN SERUM OR PLASMA 4.3 3.5 - 5.2 09/10 Specimen Type: PLASMA No comment entered. Ordering Provider: IRVING POWELL Report Released Date/Time: Sep 10, 2023 07:49 PM Reporting Lab: [facility] [address] Performing Lab: [facility] [address] [place] [facility] COMPREHE NSIVE METABOLI C PANEL+MG BILIRUBIN. TOTAL [MASS/VOLU ME] IN SERUM OR PLASMA 1.0 0.2 - 1.2 09/10 Specimen Type: PLASMA No comment entered. Ordering Provider: IRVING POWELL Report Released Date/Time: Sep 10, 2023 07:49 PM Reporting Lab: [facility] [address] Performing Lab: [facility] [address] [place] [facility] COMPREHE NSIVE METABOLI C PANEL+MG MAGNESIUM [MASS/VOLU ME] IN SERUM OR PLASMA 2.0 1.6 - 2.6 09/10 Specimen Type: PLASMA No comment entered. Ordering Provider: IRVING POWELL Report Released Date/Time: Sep 10, 2023 07:49 PM Reporting Lab: [facility] [address] Performing Lab: [facility] [address] [place] [facility] COMPREHE NSIVE METABOLI C PANEL+MG ANION GAP IN SERUM OR PLASMA 11 5 - 15 09/10 Specimen Type: PLASMA No comment entered. Ordering Provider: IRVING POWELL Report Released Date/Time: Sep 10, 2023 07:49 PM Reporting Lab: [facility] [address] Performing Lab: [facility] [address] [place] [facility] COMPREHE NSIVE METABOLI C PANEL+MG ALKALINE PHOSPHATAS E [ENZYMATIC ACTIVITY/V OLUME] IN SERUM OR PLASMA 49 40 - 150 09/10 Specimen Type: PLASMA No comment entered. Ordering Provider: IRVING POWELL Report Released Date/Time: Sep 10, 2023 07:49 PM Reporting Lab: [facility] [address] Performing Lab: [facility] [address] [place] [facility] COMPREHE NSIVE METABOLI C PANEL+MG ALANINE AMINOTRANS FERASE [ENZYMATIC ACTIVITY/V OLUME] IN SERUM OR PLASMA 23 <55 - 55 09/10 Specimen Type: PLASMA No comment entered. Ordering Provider: IRVING POWELL Report Released Date/Time: Sep 10, 2023 07:49 PM Reporting Lab: [facility] [address] Performing Lab: [facility] [address] [facility] COMPREHE NSIVE METABOLI C PANEL+MG ASPARTATE AMINOTRANS FERASE [ENZYMATIC ACTIVITY/V OLUME] IN SERUM OR PLASMA 18 <34 - 34 09/10 Specimen Type: PLASMA No comment entered. Ordering Provider: IRVING POWELL Report Released Date/Time: Sep 10, 2023 07:49 PM Reporting Lab: [facility] [address] Performing Lab: [facility] [address] [place] [facility] COMPREHE NSIVE METABOLI C PANEL+MG GLOMERULAR FILTRATION RATE/1.73 SQ M.PREDICTE D [VOLUME RATE/AREA] IN SERUM, PLASMA OR BLOOD BY CREATININE -BASED FORMULA (CKD-EPI 2020) 72 60 09/10 Specimen Type: PLASMA No comment entered. Ordering Provider: IRVING POWELL Report Released Date/Time: Sep 10, 2023 07:49 PM Reporting Lab: [facility] [address] Performing Lab: [facility] [address] [place] [facility] CBC & DIFF LEUKOCYTES [#/VOLUME] IN BLOOD BY AUTOMATED COUNT 7.45 4.0 - 11.0 09/10 Specimen Type: BLOOD Comment: Automated Differentia l Performed Ordering Provider: IRVING POWELL Report Released Date/Time: Sep 10, 2023 07:49 PM Reporting Lab: [facility] [address] Performing Lab: [facility] [address] [place] [facility] CBC & DIFF ERYTHROCYT ES [#/VOLUME] IN BLOOD BY AUTOMATED COUNT 4.80 4.0 - 5.4 09/10 Specimen Type: BLOOD Comment: Automated Differentia l Performed Ordering Provider: IRVING POWELL Report Released Date/Time: Sep 10, 2023 07:49 PM Reporting Lab: [facility] [address] Performing Lab: [facility] [address] [place] [facility] CBC & DIFF HEMOGLOBIN [MASS/VOLU ME] IN BLOOD 13.6 11.5 - 16 09/10 Specimen Type: BLOOD Comment: Automated Differentia l Performed Ordering Provider: IRVING POWELL Report Released Date/Time: Sep 10, 2023 07:49 PM Reporting Lab: [facility] [address] Performing Lab: [facility] [address] [place] [facility] CBC & DIFF HEMATOCRIT [VOLUME FRACTION] OF BLOOD BY AUTOMATED COUNT 39.2 34.5 - 48 09/10 Specimen Type: BLOOD Comment: Automated Differentia l Performed Ordering Provider: IRVING POWELL Report Released Date/Time: Sep 10, 2023 07:49 PM Reporting Lab: [facility] [address] Performing Lab: [facility] [address] [place] [facility] CBC & DIFF MCV [ENTITIC VOLUME] BY AUTOMATED COUNT 81.7 80 - 100 09/10 Specimen Type: BLOOD Comment: Automated Differentia l Performed Ordering Provider: IRVING POWELL Report Released Date/Time: Sep 10, 2023 07:49 PM Reporting Lab: [facility] [address] Performing Lab: [facility] [address] [place] [facility] CBC & DIFF MCH [ENTITIC MASS] BY AUTOMATED COUNT 28.3 27 - 33 09/10 Specimen Type: BLOOD Comment: Automated Differentia l Performed Ordering Provider: IRVING POWELL Report Released Date/Time: Sep 10, 2023 07:49 PM Reporting Lab: [facility] [address] Performing Lab: [facility] [address] [place] [facility] CBC & DIFF MCHC [MASS/VOLU ME] BY AUTOMATED COUNT 34.7 32.0 - 37.5 09/10 Specimen Type: BLOOD Comment: Automated Differentia l Performed Ordering Provider: IRVING POWELL Report Released Date/Time: Sep 10, 2023 07:49 PM Reporting Lab: [facility] [address] Performing Lab: [facility] [address] [place] [facility] CBC & DIFF PLATELETS [#/VOLUME] IN BLOOD BY AUTOMATED COUNT 369 150 - 400 09/10 Specimen Type: BLOOD Comment: Automated Differentia l Performed Ordering Provider: IRVING POWELL Report Released Date/Time: Sep 10, 2023 07:49 PM Reporting Lab: [facility] [address] Performing Lab: [facility] [address] [place] [facility] CBC & DIFF PLATELET MEAN VOLUME [ENTITIC VOLUME] IN BLOOD BY AUTOMATED COUNT 9.4 7.4 - 10.4 09/10 Specimen Type: BLOOD Comment: Automated Differentia l Performed Ordering Provider: IRVING POWELL Report Released Date/Time: Sep 10, 2023 07:49 PM Reporting Lab: [facility] [address] Performing Lab: [facility] [address] [place] [facility] CBC & DIFF NEUTROPHIL S/100 LEUKOCYTES IN BLOOD BY MANUAL COUNT 55.3 40.0 - 80.0 09/10 Specimen Type: BLOOD Comment: Automated Differentia l Performed Ordering Provider: IRVING POWELL Report Released Date/Time: Sep 10, 2023 07:49 PM Reporting Lab: [facility] [address] Performing Lab: [facility] [address] [place] [facility] CBC & DIFF LYMPHOCYTE S/100 LEUKOCYTES IN BLOOD BY MANUAL COUNT 31.8 15.0 - 45.0 09/10 Specimen Type: BLOOD Comment: Automated Differentia l Performed Ordering Provider: IRVING POWELL Report Released Date/Time: Sep 10, 2023 07:49 PM Reporting Lab: [facility] [address] Performing Lab: [facility] [address] [place] [facility] CBC & DIFF MONOCYTES/ 100 LEUKOCYTES IN BLOOD BY AUTOMATED COUNT 9.8 2.0 - 12.0 09/10 Specimen Type: BLOOD Comment: Automated Differentia l Performed Ordering Provider: IRVING POWELL Report Released Date/Time: Sep 10, 2023 07:49 PM Reporting Lab: [facility] [address] Performing Lab: [facility] [address] [place] [facility] CBC & DIFF EOSINOPHIL S/100 LEUKOCYTES IN BLOOD BY AUTOMATED COUNT 1.7 0.0 - 6.0 09/10 Specimen Type: BLOOD Comment: Automated Differentia l Performed Ordering Provider: IRVING POWELL Report Released Date/Time: Sep 10, 2023 07:49 PM Reporting Lab: [facility] [address] Performing Lab: [facility] [address] [place] [facility] CBC & DIFF BASOPHILS/ 100 LEUKOCYTES IN BLOOD BY MANUAL COUNT 1.1 0.0 - 2.0 09/10 Specimen Type: BLOOD Comment: Automated Differentia l Performed Ordering Provider: IRVING POWELL Report Released Date/Time: Sep 10, 2023 07:49 PM Reporting Lab: [facility] [address] Performing Lab: [facility] [address] [place] [facility] CBC & DIFF ERYTHROCYT E DISTRIBUTI ON WIDTH [RATIO] BY AUTOMATED COUNT 12.5 11.5 - 14.5 09/10 Specimen Type: BLOOD Comment: Automated Differentia l Performed Ordering Provider: IRVING POWELL Report Released Date/Time: Sep 10, 2023 07:49 PM Reporting Lab: [facility] [address] Performing Lab: [facility] [address] [place] [facility] CBC & DIFF LYMPHOCYTE S [#/VOLUME] IN BLOOD BY AUTOMATED COUNT 2.37 1.0 - 4.0 09/10 Specimen Type: BLOOD Comment: Automated Differentia l Performed Ordering Provider: IRVING POWELL Report Released Date/Time: Sep 10, 2023 07:49 PM Reporting Lab: [facility] [address] Performing Lab: [facility] [address] [place] [facility] CBC & DIFF MONOCYTES [#/VOLUME] IN BLOOD BY AUTOMATED COUNT 0.73 0.1 - 1.0 09/10 Specimen Type: BLOOD Comment: Automated Differentia l Performed Ordering Provider: IRVING POWELL Report Released Date/Time: Sep 10, 2023 07:49 PM Reporting Lab: [facility] [address] Performing Lab: [facility] [address] [place] [facility] CBC & DIFF NEUTROPHIL S [#/VOLUME] IN BLOOD BY AUTOMATED COUNT 4.12 2.0 - 7.7 09/10 Specimen Type: BLOOD Comment: Automated Differentia l Performed Ordering Provider: IRVING POWELL Report Released Date/Time: Sep 10, 2023 07:49 PM Reporting Lab: [facility] [address] Performing Lab: [facility] [address] [place] [facility] CBC & DIFF EOSINOPHIL S [#/VOLUME] IN BLOOD BY AUTOMATED COUNT 0.13 0 - 0.5 09/10 Specimen Type: BLOOD Comment: Automated Differentia l Performed Ordering Provider: IRVING POWELL Report Released Date/Time: Sep 10, 2023 07:49 PM Reporting Lab: [facility] [address] Performing Lab: [facility] [address] [place] [facility] CBC & DIFF BASOPHILS [#/VOLUME] IN BLOOD BY AUTOMATED COUNT 0.08 0 - 0.2 09/10 Specimen Type: BLOOD Comment: Automated Differentia l Performed Ordering Provider: IRVING POWELL Report Released Date/Time: Sep 10, 2023 07:49 PM Reporting Lab: [facility] [address] Performing Lab: [facility] [address] [place] [facility] CBC & DIFF IG(META,MY YUE,PRO) 0.3 09/10 Specimen Type: BLOOD Comment: Automated Differentia l Performed Ordering Provider: IRVING POWELL Report Released Date/Time: Sep 10, 2023 07:49 PM Reporting Lab: [facility] [address] Performing Lab: [facility] [address] [facility] CBC & DIFF IMMATURE GRANULOCYT ES [PRESENCE] IN BLOOD BY AUTOMATED COUNT 0.02 0 - 0.1 09/10 Specimen Type: BLOOD Comment: Automated Differentia l Performed Ordering Provider: IRVING POWELL Report Released Date/Time: Sep 10, 2023 07:49 PM Reporting Lab: [facility] [address] Performing Lab: [facility] [address] [place] [facility] HCG,MONIQUE TITATIVE CHORIOGONA DOTROPIN.B ETA SUBUNIT [UNITS/VOL UME] IN SERUM OR PLASMA <2.42 <4.99 - 4.99 09/10 Specimen Type: SERUM No comment entered. Ordering Provider: IRVING POWELL Report Released Date/Time: Sep 10, 2023 07:49 PM Reporting Lab: [facility] [address] Performing Lab: [facility] [address] [place] [facility] EXTRA BLUE TUBE EXTRA BLUE TUBE RECEIVED 09/10 Specimen Type: PLASMA No comment entered. Ordering Provider: IRVING POWELL Report Released Date/Time: Sep 10, 2023 07:55 PM Reporting Lab: [facility] [address] Performing Lab: [facility] [address] [facility] LEUKOCYTES [#/VOLUME] IN BLOOD BY AUTOMATED COUNT 7.02 4.0 - 11.0 03/27 Specimen Type: BLOOD No comment entered. Ordering Provider: CLIFF GRACIA Report Released Date/Time: Mar 27, 2023 10:09 AM Reporting Lab: [facility] [address] Performing Lab: [facility] [address] [facility] CBC ERYTHROCYT ES [#/VOLUME] IN BLOOD BY AUTOMATED COUNT 4.97 4.0 - 5.4 03/27 Specimen Type: BLOOD No comment entered. Ordering Provider: CLIFF GRACIA Report Released Date/Time: Mar 27, 2023 10:09 AM Reporting Lab: [facility] [address] Performing Lab: [facility] [address] [facility] CBC HEMOGLOBIN [MASS/VOLU ME] IN BLOOD 14.2 11.5 - 16 03/27 Specimen Type: BLOOD No comment entered. Ordering Provider: CLIFF GRACIA Report Released Date/Time: Mar 27, 2023 10:09 AM Reporting Lab: [facility] [address] Performing Lab: [facility] [address] [facility] CBC HEMATOCRIT [VOLUME FRACTION] OF BLOOD BY AUTOMATED COUNT 40.9 34.5 - 48 03/27 Specimen Type: BLOOD No comment entered. Ordering Provider: CLIFF GRACIA Report Released Date/Time: Mar 27, 2023 10:09 AM Reporting Lab: [facility] [address] Performing Lab: [facility] [address] [facility] CBC MCV [ENTITIC VOLUME] BY AUTOMATED COUNT 82.3 80 - 100 03/27 Specimen Type: BLOOD No comment entered. Ordering Provider: CLIFF GRACIA Report Released Date/Time: Mar 27, 2023 10:09 AM Reporting Lab: [facility] [address] Performing Lab: [facility] [address] [facility] CBC MCH [ENTITIC MASS] BY AUTOMATED COUNT 28.6 27 - 33 03/27 Specimen Type: BLOOD No comment entered. Ordering Provider: CLIFF GRACIA Report Released Date/Time: Mar 27, 2023 10:09 AM Reporting Lab: [facility] [address] Performing Lab: [facility] [address] [facility] CBC MCHC [MASS/VOLU ME] BY AUTOMATED COUNT 34.7 32.0 - 37.5 03/27 Specimen Type: BLOOD No comment entered. Ordering Provider: CLIFF GRACIA Report Released Date/Time: Mar 27, 2023 10:09 AM Reporting Lab: [facility] [address] Performing Lab: [facility] [address] [facility] CBC PLATELETS [#/VOLUME] IN BLOOD BY AUTOMATED COUNT 371 150 - 400 03/27 Specimen Type: BLOOD No comment entered. Ordering Provider: CLIFF GRACIA Report Released Date/Time: Mar 27, 2023 10:09 AM Reporting Lab: [facility] [address] Performing Lab: [facility] [address] [facility] CBC PLATELET MEAN VOLUME [ENTITIC VOLUME] IN BLOOD BY AUTOMATED COUNT 10.8 7.4 - 10.4 03/27 H Specimen Type: BLOOD No comment entered. Ordering Provider: CLIFF GRACIA Report Released Date/Time: Mar 27, 2023 10:09 AM Reporting Lab: [facility] [address] Performing Lab: [facility] [address] [facility] CBC ERYTHROCYT E DISTRIBUTI ON WIDTH [RATIO] BY AUTOMATED COUNT 12.8 11.5 - 14.5 03/27 Specimen Type: BLOOD No comment entered. Ordering Provider: CLIFF GRACIA Report Released Date/Time: Mar 27, 2023 10:09 AM Reporting Lab: [facility] [address] Performing Lab: [facility] [address] [facility] COMPREHE NSIVE METABOLI C PANEL+MG CREATININE [MASS/VOLU ME] IN SERUM OR PLASMA 0.9 0.5 - 1.0 03/27 Specimen Type: PLASMA Comment: Elevated triglycerid e result from a non-fasting specimen should be interpreted with caution. A fasting panel is recommended for accurate triglycerid es when trigs are >200 from a non-fasting specimen. Ordering Provider: CLIFF GRACIA Report Released Date/Time: Mar 27, 2023 10:09 AM Reporting Lab: [facility] [address] Performing Lab: [facility] [address] [facility] COMPREHE NSIVE METABOLI C PANEL+MG UREA NITROGEN [MASS/VOLU ME] IN SERUM OR PLASMA 13 7 - 20 03/27 Specimen Type: PLASMA Comment: Elevated triglycerid e result from a non-fasting specimen should be interpreted with caution. A fasting panel is recommended for accurate triglycerid es when trigs are >200 from a non-fasting specimen. Ordering Provider: CLIFF GRACIA Report Released Date/Time: Mar 27, 2023 10:09 AM Reporting Lab: [facility] [address] Performing Lab: [facility] [address] [facility] COMPREHE NSIVE METABOLI C PANEL+MG GLUCOSE [MASS/VOLU ME] IN SERUM OR PLASMA 94 70 - 100 03/27 Specimen Type: PLASMA Comment: Elevated triglycerid e result from a non-fasting specimen should be interpreted with caution. A fasting panel is recommended for accurate triglycerid es when trigs are >200 from a non-fasting specimen. Ordering Provider: CLIFF GRACIA Report Released Date/Time: Mar 27, 2023 10:09 AM Reporting Lab: [facility] [address] Performing Lab: [facility] [address] [facility] COMPREHE NSIVE METABOLI C PANEL+MG SODIUM [MOLES/VOL UME] IN SERUM OR PLASMA 136 136 - 145 03/27 Specimen Type: PLASMA Comment: Elevated triglycerid e result from a non-fasting specimen should be interpreted with caution. A fasting panel is recommended for accurate triglycerid es when trigs are >200 from a non-fasting specimen. Ordering Provider: CLIFF GRACIA Report Released Date/Time: Mar 27, 2023 10:09 AM Reporting Lab: [facility] [address] Performing Lab: [facility] [address] [facility] COMPREHE NSIVE METABOLI C PANEL+MG POTASSIUM [MOLES/VOL UME] IN SERUM OR PLASMA 4.0 3.5 - 5.1 03/27 Specimen Type: PLASMA Comment: Elevated triglycerid e result from a non-fasting specimen should be interpreted with caution. A fasting panel is recommended for accurate triglycerid es when trigs are >200 from a non-fasting specimen. Ordering Provider: CLIFF GRACIA Report Released Date/Time: Mar 27, 2023 10:09 AM Reporting Lab: [facility] [address] Performing Lab: [facility] [address] [facility] COMPREHE NSIVE METABOLI C PANEL+MG CHLORIDE [MOLES/VOL UME] IN SERUM OR PLASMA 106 98 - 107 03/27 Specimen Type: PLASMA Comment: Elevated triglycerid e result from a non-fasting specimen should be interpreted with caution. A fasting panel is recommended for accurate triglycerid es when trigs are >200 from a non-fasting specimen. Ordering Provider: CLIFF GRACIA Report Released Date/Time: Mar 27, 2023 10:09 AM Reporting Lab: [facility] [address] Performing Lab: [facility] [address] [facility] COMPREHE NSIVE METABOLI C PANEL+MG CARBON DIOXIDE, TOTAL [MOLES/VOL UME] IN SERUM OR PLASMA 21 - 03/27 L Specimen Type: PLASMA Comment: Elevated triglycerid e result from a non-fasting specimen should be interpreted with caution. A fasting panel is recommended for accurate triglycerid es when trigs are >200 from a non-fasting specimen. Ordering Provider: CLIFF GRACIA Report Released Date/Time: Mar 27, 2023 10:09 AM Reporting Lab: [facility] [address] Performing Lab: [facility] [address] [facility] COMPREHE NSIVE METABOLI C PANEL+MG CALCIUM [MASS/VOLU ME] IN SERUM OR PLASMA 9.3 8.4 - 10.2 03/27 Specimen Type: PLASMA Comment: Elevated triglycerid e result from a non-fasting specimen should be interpreted with caution. A fasting panel is recommended for accurate triglycerid es when trigs are >200 from a non-fasting specimen. Ordering Provider: CLIFF GRACIA Report Released Date/Time: Mar 27, 2023 10:09 AM Reporting Lab: [facility] [address] Performing Lab: [facility] [address] [facility] COMPREHE NSIVE METABOLI C PANEL+MG PROTEIN [MASS/VOLU ME] IN SERUM OR PLASMA 7.4 6.0 - 8.3 03/27 Specimen Type: PLASMA Comment: Elevated triglycerid e result from a non-fasting specimen should be interpreted with caution. A fasting panel is recommended for accurate triglycerid es when trigs are >200 from a non-fasting specimen. Ordering Provider: CLIFF GRACIA Report Released Date/Time: Mar 27, 2023 10:09 AM Reporting Lab: [facility] [address] Performing Lab: [facility] [address] [facility] COMPREHE NSIVE METABOLI C PANEL+MG ALBUMIN [MASS/VOLU ME] IN SERUM OR PLASMA 4.6 3.5 - 5.2 03/27 Specimen Type: PLASMA Comment: Elevated triglycerid e result from a non-fasting specimen should be interpreted with caution. A fasting panel is recommended for accurate triglycerid es when trigs are >200 from a non-fasting specimen. Ordering Provider: CLIFF GRACIA Report Released Date/Time: Mar 27, 2023 10:09 AM Reporting Lab: [facility] [address] Performing Lab: [facility] [address] [facility] COMPREHE NSIVE METABOLI C PANEL+MG BILIRUBIN. TOTAL [MASS/VOLU ME] IN SERUM OR PLASMA 0.5 0.2 - 1.2 03/27 Specimen Type: PLASMA Comment: Elevated triglycerid e result from a non-fasting specimen should be interpreted with caution. A fasting panel is recommended for accurate triglycerid es when trigs are >200 from a non-fasting specimen. Ordering Provider: CLIFF GRACIA Report Released Date/Time: Mar 27, 2023 10:09 AM Reporting Lab: [facility] [address] Performing Lab: [facility] [address] [facility] COMPREHE NSIVE METABOLI C PANEL+MG MAGNESIUM [MASS/VOLU ME] IN SERUM OR PLASMA 2.0 1.6 - 2.6 03/27 Specimen Type: PLASMA Comment: Elevated triglycerid e result from a non-fasting specimen should be interpreted with caution. A fasting panel is recommended for accurate triglycerid es when trigs are >200 from a non-fasting specimen. Ordering Provider: CLIFF GRACIA Report Released Date/Time: Mar 27, 2023 10:09 AM Reporting Lab: [facility] [address] Performing Lab: [facility] [address] [facility] COMPREHE NSIVE METABOLI C PANEL+MG ANION GAP IN SERUM OR PLASMA 9 5 - 15 03/27 Specimen Type: PLASMA Comment: Elevated triglycerid e result from a non-fasting specimen should be interpreted with caution. A fasting panel is recommended for accurate triglycerid es when trigs are >200 from a non-fasting specimen. Ordering Provider: CLIFF GRACIA Report Released Date/Time: Mar 27, 2023 10:09 AM Reporting Lab: [facility] [phone] Performing Lab: [facility] [address] [facility] COMPREHE NSIVE METABOLI C PANEL+MG ALKALINE PHOSPHATAS E [ENZYMATIC ACTIVITY/V OLUME] IN SERUM OR PLASMA 49 40 - 150 03/27 Specimen Type: PLASMA Comment: Elevated triglycerid e result from a non-fasting specimen should be interpreted with caution. A fasting panel is recommended for accurate triglycerid es when trigs are >200 from a non-fasting specimen. Ordering Provider: CLIFF GRACIA Report Released Date/Time: Mar 27, 2023 10:09 AM Reporting Lab: [facility] [address] Performing Lab: [facility] [address] [facility] COMPREHE NSIVE METABOLI C PANEL+MG ALANINE AMINOTRANS FERASE [ENZYMATIC ACTIVITY/V OLUME] IN SERUM OR PLASMA 25 <55 - 55 03/27 Specimen Type: PLASMA Comment: Elevated triglycerid e result from a non-fasting specimen should be interpreted with caution. A fasting panel is recommended for accurate triglycerid es when trigs are >200 from a non-fasting specimen. Ordering Provider: CLIFF GRACIA Report Released Date/Time: Mar 27, 2023 10:09 AM Reporting Lab: [facility] [address] Performing Lab: [facility] [address] [facility] COMPREHE NSIVE METABOLI C PANEL+MG ASPARTATE AMINOTRANS FERASE [ENZYMATIC ACTIVITY/V OLUME] IN SERUM OR PLASMA 21 <34 - 34 03/27 Specimen Type: PLASMA Comment: Elevated triglycerid e result from a non-fasting specimen should be interpreted with caution. A fasting panel is recommended for accurate triglycerid es when trigs are >200 from a non-fasting specimen. Ordering Provider: CLIFF GRACIA Report Released Date/Time: Mar 27, 2023 10:09 AM Reporting Lab: [facility] [address] Performing Lab: [facility] [address] [facility] COMPREHE NSIVE METABOLI C PANEL+MG GLOMERULAR FILTRATION RATE/1.73 SQ M.PREDICTE D [VOLUME RATE/AREA] IN SERUM, PLASMA OR BLOOD BY CREATININE -BASED FORMULA (CKD-EPI 2020) 81 60 03/27 Specimen Type: PLASMA Comment: Elevated triglycerid e result from a non-fasting specimen should be interpreted with caution. A fasting panel is recommended for accurate triglycerid es when trigs are >200 from a non-fasting specimen. Ordering Provider: CLIFF GRACIA Report Released Date/Time: Mar 27, 2023 10:09 AM Reporting Lab: [facility] [address] Performing Lab: [facility] [address] [facility] HEMOGLOB IN A1C HEMOGLOBIN A1C/HEMOGL OBIN.TOTAL IN BLOOD 4.8 4.0 - 6.0 03/27 Specimen Type: BLOOD Comment: Values obtained from A1C measurement s can vary. For typical A1C assays, a reported value of 7.0 could actually be between 6.7 and 7.3 if measured by a reference method. A reported value of 9.0 could actually be between 8.7 and 9.3. Ref: http://www. ngsp.org/[place] Pdata.asp Ordering Provider: CLIFF GRACIA Report Released Date/Time: Mar 27, 2023 10:09 AM Reporting Lab: [facility] [address] Performing Lab: [facility] [address] [facility] LIPID PANEL,NO N-FASTIN G CHOLESTERO L [MASS/VOLU ME] IN SERUM OR PLASMA 250 <199 - 199 03/27 H Specimen Type: PLASMA Comment: Elevated triglycerid e result from a non-fasting specimen should be interpreted with caution. A fasting panel is recommended for accurate triglycerid es when trigs are >200 from a non-fasting specimen. Ordering Provider: CLIFF GRACIA Report Released Date/Time: Mar 27, 2023 10:09 AM Reporting Lab: [facility] [address] Performing Lab: [facility] [address] [facility] LIPID PANEL,NO N-FASTIN G CHOLESTERO L IN HDL [MASS/VOLU ME] IN SERUM OR PLASMA 37 50 03/27 L Specimen Type: PLASMA Comment: Elevated triglycerid e result from a non-fasting specimen should be interpreted with caution. A fasting panel is recommended for accurate triglycerid es when trigs are >200 from a non-fasting specimen. Ordering Provider: CLIFF GRACIA Report Released Date/Time: Mar 27, 2023 10:09 AM Reporting Lab: [facility] [phone] Performing Lab: [facility] [address] [facility] LIPID PANEL,NO N-FASTIN G CHOLESTERO L IN LDL [MASS/VOLU ME] IN SERUM OR PLASMA BY CALCULATIO N 144 <99 - 99 03/27 H Specimen Type: PLASMA Comment: Elevated triglycerid e result from a non-fasting specimen should be interpreted with caution. A fasting panel is recommended for accurate triglycerid es when trigs are >200 from a non-fasting specimen. Ordering Provider: CLIFF GRACIA Report Released Date/Time: Mar 27, 2023 10:09 AM Reporting Lab: [facility] [address] Performing Lab: [facility] [address] [facility] LIPID PANEL,NO N-FASTIN G CHOLESTERO L IN VLDL [MASS/VOLU ME] IN SERUM OR PLASMA BY CALCULATIO N 69 <29 - 29 03/27 H Specimen Type: PLASMA Comment: Elevated triglycerid e result from a non-fasting specimen should be interpreted with caution. A fasting panel is recommended for accurate triglycerid es when trigs are >200 from a non-fasting specimen. Ordering Provider: CLIFF GRACIA Report Released Date/Time: Mar 27, 2023 10:09 AM Reporting Lab: [facility] [address] Performing Lab: [facility] [address] [facility] LIPID PANEL,NO N-FASTIN G CHOLESTERO L NON HDL [MASS/VOLU ME] IN SERUM OR PLASMA 213 <129 - 129 03/27 H Specimen Type: PLASMA Comment: Elevated triglycerid e result from a non-fasting specimen should be interpreted with caution. A fasting panel is recommended for accurate triglycerid es when trigs are >200 from a non-fasting specimen. Ordering Provider: CLIFF GRACIA Report Released Date/Time: Mar 27, 2023 10:09 AM Reporting Lab: [facility] [address] Performing Lab: [facility] [address] [facility] LIPID PANEL,NO N-FASTIN G TRIGLYCERI DE [MASS/VOLU ME] IN SERUM OR PLASMA 347 <149 - 149 03/27 H Specimen Type: PLASMA Comment: Elevated triglycerid e result from a non-fasting specimen should be interpreted with caution. A fasting panel is recommended for accurate triglycerid es when trigs are >200 from a non-fasting specimen. Ordering Provider: CLIFF GRACIA Report Released Date/Time: Mar 27, 2023 10:09 AM Reporting Lab: [facility] [address] Performing Lab: [facility] [address] DEEPIKA MONREALOC Vital Signs Combined list of inpatient and outpatient Vital Signs from [facility], ranging from 12 months to all on record, depending upon the facility. Vital Sign Value Date Comments Source Encounters Combined list of: 1) Encounters from Department of Veterans Affairs facilities going back up to thelast 18 months. 2) Encounters from the Department of Defense facilities going back up to 280 months. Location Location Details Encounter Type Encounter Number Reason For Visit Attending Provider ADM Date DC Date Status Disposition Source [facility] [place] Hearing Conservat ion Exam) OUTPATIENT [id number] BRANDEN CAREY 09/29 Released w/o Limitations [facility] [place](IE[place] Hearing Conserv ation Exam) [facility] [place] Optometry ) OUTPATIENT [id number] VIKTORIYA GUERRA 09/30 Released w/o Limitations [facility](IEP Optomet ry) [facility] [place]C-T[facility] Er Module) OUTPATIENT [id number] ankle pain ESTER CHEUNG 10/06 Released with Work/Duty Limitations [facility] [place] [facility] [place](C-TMC Er Module) OUTPATIENT [id number] HEAD INJURY. MARCIE DANG 10/21 Sick at Home/Quarter s [facility] [place] [facility] [place] OUTPATIENT [id number] uri MARCIE DANG 10/23 Released with Work/Duty Limitations [facility] [place] [facility] [place] OUTPATIENT [id number] F/U HEAD INJURY. ORTIZ RUTHERFORD 10/25 Released w/o Limitations [facility] [place]) [facility] [place] OUTPATIENT [id number] REORDER BRENDA DODD 12/08 Released w/o Limitations [facility] [place] [facility] [place] OUTPATIENT [id number] ankle and leg pain SARA DIEHL 12/18 Released with Work/Duty Limitations [facility] [place] [facility] Outpatient Encounter [id number] 02/10 [facility] PRO PHONE CALL 5-10 MIN [phone] [id number] Diagnos is: ICD-10- CM Z71.89 Other specifi ed clinical counselor ing<br/ > AYALA OWENS 02/10 [facility] Outpatient Encounter [id number] [facility]28 [facility] [place] [facility] Outpatient Encounter [id number] [facility] 03/04 [place] [facility] ASSESS BY NON-MD [id number] Diagnos is: ICD-10- CM Z71.89 Other specifi ed clinical counselor ing<br/ > ANN JEFFERS 03/05 [facility] Outpatient Encounter [id number] DAVID QUEEN 03/13 [place] [facility] [place] [facility] Outpatient Encounter [id number] SEBASTIAN ALONSO 03/26 [place] [facility] [facility] [place] [facility] Outpatient Encounter [id number] SEBASTIAN ALONSO 03/26 [place] [facility] [facility] [place] [facility] Outpatient Encounter [id number] SEBASTIAN ALONSO 03/26 [place] [facility] [place] [facility] Outpatient Encounter [id number] 03/26 [place] [facility] [place] [facility] TDAP VACCINE 7 YRS/> IM [id number] [id number] 03/26 [place] [facility] OFFICE O/P NEW [place] 60-74 MIN [id number] [id number] Diagnos is: ICD-10- CM Z00.00 Encntr for general adult medical exam w/o abnorma l finding s
YOHANA GRACIA CARDENAS Adriana 03/27 [facility] PSYCH DIAGNOSTIC EVALUATION [id number] [id number] Diagnos is: ICD-10- CM F43.12 Post-tr aumatic stress disorde r, chronic
Inna LOPEZ 04/02 [facility] [place] [facility] Outpatient Encounter [id number] ETHAN TRUONG 04/04 [place] [facility] [place] [facility] Outpatient Encounter [id number] 04/11 [place] [facility] [place] [facility] Outpatient Encounter [id number] 04/21 [place] [facility] PSYTX W PT 45 MINUTES [id number] [id number] Diagnos is: ICD-10- CM F43.12 Post-tr aumatic stress disorde r, chronic
Inna LOPEZ 04/22 [facility] PSYTX W PT 45 MINUTES [id number] [id number] Diagnos is: ICD-10- CM F43.12 Post-tr aumatic stress disorde r, chronic
Inna LOPEZ 05/01 [facility] PRO PHONE CALL 11-20 MIN [id number] [id number] Diagnos is: ICD-10- CM K86.1 Other chronic pancrea titis<b r/> FELIX BARTLETT 05/02 [facility] [place] [facility] Outpatient Encounter [id number] 05/02 [place] [facility] OFFICE O/P EST LOW 20-29 MIN [id number] [id number] Diagnos is: ICD-10- CM K86.1 Other chronic pancrea titis<b r/> YOHANA GRACIA 05/07 [facility] [place] [facility] OFFICE O/P NEW MOD 45-59 MIN [id number] [id number] Diagnos is: ICD-10- CM K86.1 Other chronic pancrea titis<b r/> Inna BOUDREAUX 05/09 [place] [facility] [place] [facility] HC PRO PHONE CALL 5-10 MIN [id number] [id number] Diagnos is: ICD-10- CM K86.1 Other chronic pancrea titis<b r/> SANCHEZ HLEY L 05/09 [place] [facility] PSYTX W PT 45 MINUTES [id number] [id number] Diagnos is: ICD-10- CM F43.12 Post-tr aumatic stress disorde r, chronic
Inna LOPEZ 05/09 [facility] PSYTX W PT 45 MINUTES [id number] [id number] Diagnos is: ICD-10- CM F43.12 Post-tr aumatic stress disorde r, chronic
Inna LOPEZ 05/14 [facility] [place] [facility] Outpatient Encounter [id number] 05/14 [place] [facility] PSYTX W PT 45 MINUTES [id number] [id number] Diagnos is: ICD-10- CM F43.12 Post-tr aumatic stress disorde r, chronic
Inna LOPEZ 05/22 [facility] [place] [facility] Outpatient Encounter [id number] [id number] 05/27 [place] [facility] [place] [facility] FLUOROGUID E FOR SPINE INJECT [id number] [id number] Diagnos is: ICD-10- CM G89.29 Other chronic pain
Inna BOUDREAUX 05/27 [place] [facility] PSYTX W PT 45 MINUTES [id number] [id number] Diagnos is: ICD-10- CM F43.12 Post-tr aumatic stress disorde r, chronic
Inna LOPEZ 05/29 [facility] [place] [facility] OFFICE O/P EST HI 40-54 MIN [id number] [id number] Diagnos is: ICD-10- CM R10.9 Unspeci fied abdomin al pain
REININK,AN ALMA R 06/04 [place] [facility] PSYTX W PT 45 MINUTES [id number] [id number] Diagnos is: ICD-10- CM F43.12 Post-tr aumatic stress disorde r, chronic
Inna LOPEZ 06/05 [facility] PSYTX W PT 45 MINUTES [id number] [id number] Diagnos is: ICD-10- CM F43.12 Post-tr aumatic stress disorde r, chronic
Inna LOPEZ 06/09 [facility] [place] [facility] Outpatient Encounter [id number] FELIX BARTLETT 06/10 [place] [facility] [place] [facility] Outpatient Encounter [id number] FELIX BARTLETT 06/10 [place] [facility] [place] [facility] EVOKED AUDITORY TST COMPLETE [id number] Diagnos is: ICD-10- CM Z01.118 Encntr for exam of ears and hearing w oth abnorma l finding s
Carlos CASTELLANOS A 06/17 [place] [facility] PSYTX W PT 45 MINUTES 82688-4 [id number] Diagnos is: ICD-10- CM F43.12 Post-tr aumatic stress disorde r, chronic
Inna LOPEZ 07/01 [facility] [place] [facility] OFF/OP CNSLTJ NEW/EST LOW 30 [id number] Diagnos is: ICD-10- CM G89.29 Other chronic pain
MARLO ESCAMILLA 07/02 [place] [facility] [place] [facility] Outpatient Encounter [id number] 07/02 [place] [facility] [place] [facility] Outpatient Encounter [id number] [id number] 07/03 [place] [facility] [place] [facility] Outpatient Encounter [id number] Carlos ARREAGA 07/03 [place] [facility] [place] [facility] Outpatient Encounter [id number] SYEDA HALL 07/04 [place] [facility] [place] [facility] Outpatient Encounter [id number] [id number] ISABELSYEDA Keith 07/04 [place] [facility] PSYTX W PT 45 MINUTES [id number] [id number] Diagnos is: ICD-10- CM F43.12 Post-tr aumatic stress disorde r, chronic
Inna LOPEZ 07/08 [facility] [place] [facility] Outpatient Encounter [id number] ISABELRAFALorie Keith 07/08 [place] [facility] [place] [facility] Outpatient Encounter [id number] ISABELSYEDA Lorie Keith 07/08 [place] [facility] [place] [facility] Outpatient Encounter [id number] 07/11 [place] [facility] ACUPUNCT W/O STIMUL 15 MIN [id number] [id number] Diagnos is: ICD-10- CM G89.29 Other chronic pain
ANDIMARLO CHARD A 07/16 [facility] PSYTX W PT 45 MINUTES [id number] [id number] Diagnos is: ICD-10- CM F43.12 Post-tr aumatic stress disorde r, chronic
Inna LOPEZ 07/22 [facility] CONFORMITY EVALUATION [id number] Diagnos is: ICD-10- CM Z46.1 Encount er for fitting and adjustm ent of hearing aid<br/ > CUCA WALTON 07/24 [facility] GROUP PSYCHOTHER APY [id number] Diagnos is: ICD-10- CM F43.12 Post-tr aumatic stress disorde r, chronic
Carlos ARREAGA RYSTAL 07/24 [facility] PSYTX W PT 45 MINUTES 58606-5.61 [id number] Diagnos is: ICD-10- CM F43.12 Post-tr aumatic stress disorde r, chronic
Inna LOPEZ 07/29 [facility] [place] [facility] Outpatient Encounter [id number] 07/31 [place] [facility] [place] [facility] ACUPUNCT W/O STIMUL 15 MIN [id number] [id number] Diagnos is: ICD-10- CM G89.29 Other chronic pain
MARLO ESCAMILLA A 08/01 [place] [facility] PSYTX W PT 45 MINUTES [id number] [id number] Diagnos is: ICD-10- CM F43.12 Post-tr aumatic stress disorde r, chronic
Inna LOPEZ 08/06 [facility] [place] [facility] Outpatient Encounter [id number] [id number] 08/07 [place] [facility] [place] [facility] Outpatient Encounter [id number] [id number] 08/08 [place] [facility] [place] [facility] Outpatient Encounter [id number] [id number] 08/12 [place] [facility] [place] [facility] Outpatient [facility]counter [id number] [id number] 08/14 [place] [facility] PSYTX W PT 45 MINUTES 03142-7.61 [id number] Diagnos is: ICD-10- CM F43.12 Post-tr aumatic stress disorde r, chronic
Inna LOPEZ 08/20 [facility] [place] [facility] Outpatient Encounter [id number] [id number] 08/20 [place] [facility] [place] [facility] ACUPUNCT W/O STIMUL 15 MIN [id number] [id number] Diagnos is: ICD-10- CM G89.29 Other chronic pain
MARLO ESCAMILLA 08/27 [place] [facility] PRO PHONE CALL 5-10 MIN [id number] [id number] Diagnos is: ICD-10- CM G89.29 Other chronic pain
CHARLENE POLO E 08/29 [place] [facility] PSYTX W PT 45 MINUTES [id number] [id number] Diagnos is: ICD-10- CM F43.12 Post-tr aumatic stress disorde r, chronic
Inna LOPEZ 09/03 [facility] [place] [facility] EMERGENCY DEPT VISIT LOW MDM [id number] [id number] Diagnos is: ICD-10- CM R10.10 Upper abdomin al pain, unspeci fied
MADI POWELL 09/10 [place] [facility] Outpatient Encounter [id number] [id number] GERALD MARCUM 09/11 [place] [facility] Outpatient Encounter [id number] [id number] GERALD MARCUM 09/11 [place] [facility] PSYTX W PT 45 MINUTES [id number] [id number] Diagnos is: ICD-10- CM F43.12 Post-tr aumatic stress disorde r, chronic
Inna LOPEZ 09/30 [facility] PSYTX W PT 45 MINUTES [id number] [id number] Diagnos is: ICD-10- CM F43.12 Post-tr aumatic stress disorde r, chronic
Inna LOPEZ 10/07 [facility] PSYTX W PT 45 MINUTES [id number] [id number] Diagnos is: ICD-10- CM F43.12 Post-tr aumatic stress disorde r, chronic
Inna LOPEZ 10/21 [facility] Outpatient Encounter [id number] [id number] GRETCHEN TALAVERA 11/02 [place] [facility] PSYTX W PT 45 MINUTES [id number] [id number] Diagnos is: ICD-10- CM F43.12 Post-tr aumatic stress disorde r, chronic
Inna LOPEZ 11/04 [facility] OFF[facility] O/P EST MOD 30 MIN [id number] [id number] Diagnos is: ICD-10- CM R19.7 Diarrhe a, unspeci fied
EYAL ESPINOSAI AYALA J 11/18 [facility] Outpatient Encounter [id number] [id number] 11/18 [facility] HC PRO PHONE CALL 5-10 MIN [id number] [id number] Diagnos is: ICD-10- CM K86.1 Other chronic pancrea titis<b r/> SUOS,ARMANI 11/18 [facility] PSYTX W PT 45 MINUTES [id number] [id number] Diagnos is: ICD-10- CM F43.12 Post-tr aumatic stress disorde r, chronic
Inna LOPEZ 11/27 [facility] Procedures Combined list of: 1) Procedures from Department of Veterans Affairs facilities going back up to thelast 18 months, not all [place] non-surgical procedures are included; 2) All procedures from the Department of Defense facilities. Procedure Procedure Type Code Date Perfomer Comments Sourc e SELF-CARE/HOME MANAGMENT TRAIN (EG,ACT OF DAILY LIVING (ADL) &COMPENSAT TRAIN,MEAL PREPARATION,SAFETY PROCS,AND INSTRUCT IN USE OF ASST TECHNOLOGY DEV/ADPT EQUIP) DIR ONE-ON-ONE CONT,EA 15 MINUTES 7 [facility] REPAIR AND REFITTING SPECTACLES; EXCEPT FOR APHAKIA 7 [facility] SELF-CARE/HOME MANAGMENT TRAIN (EG,ACT OF DAILY LIVING (ADL) &COMPENSAT TRAIN,MEAL PREPARATION,SAFETY PROCS,AND INSTRUCT IN USE OF ASST TECHNOLOGY DEV/ADPT EQUIP) DIR ONE-ON-ONE CONT,EA 15 MINUTES 7 [facility] SELF-CARE/HOME MANAGMENT TRAIN (EG,ACT OF DAILY LIVING (ADL) &COMPENSAT TRAIN,MEAL PREPARATION,SAFETY PROCS,AND INSTRUCT IN USE OF ASST TECHNOLOGY DEV/ADPT EQUIP) DIR ONE-ON-ONE CONT,EA 15 MINUTES 7 [facility] HANDLING,CONVEY,&/A SD OT SERV,CONN W IMP OF ORD INV DEV (EG,DESIGN,FIT,PCK, HND,DEL/MAIL) WHEN DEV SUCH ORTH,PROT,PROSTH,FA B,OUTSIDE LAB/SHOP BUT ITEM JF,&ARE TO BE FIT&ADJ,ATT PHYS/OTH QUAL HCP 7 [facility] THERAPEUTIC, PROPHYLACTIC OR DIAGNOSTIC INJECTION (SPECIFY SUBSTANCE OR DRUG); SUBCUTANEOUS OR INTRAMUSCULAR 7 [facility] FITTING OF SPECTACLES, EXCEPT FOR APHAKIA; MONOFOCAL 7 [facility] EAR MOLD/INSERT, NOT DISPOSABLE, ANY TYPE 7 [facility] Physician Supervised Ordering / Handling / Fitting Patient Devices Physician Supervised Ordering / Handling / Fitting Patient Devices [id number] 7 SARA DIEHL [facility] Patient Training And Self-Care Skills Patient Training And Self-Care Skills 82360 7 SARA DIEHL [facility] Repair And Refitting Gla es (Not For Aphakia) Repair And Refitting Glasses (Not For Aphakia) 64716 7 FREDERICK MENDOZA [facility] Spectacles Services Fitting Monofocal Except For Aphakia Spectacles Services Fitting Monofocal Except For Aphakia 92278 7 FREDERICK MENDOZA [facility] Patient Training And Self-Care Skills Patient Training And Self-Care Skills 87056 7 ORTIZ RUTHERFORD [facility] Phys Therapy Education Self Care Training - Per 15 Minutes Phys Therapy Education Self Care Training - Per 15 Minutes 34392 7 MARCIE DANG [facility] Patient Training And Self-Care Skills Patient Training And Self-Care Skills 22037 7 MARCIE DANG [facility] Physician Supervised Ordering / Handling / Fitting Patient Devices Physician Supervised Ordering / Handling / Fitting Patient Devices 07859 7 ESTER CHEUNG [facility] Patient Training And Self-Care Skills Patient Training And Self-Care Skills 90977 7 ESTER CHEUNG [facility] Spectacles Services Fitting Monofocal Except For Aphakia Spectacles Services Fitting Monofocal Except For Aphakia 61583 7 SUZIE GUERRA [facility] Screening Test Of Visual Acuity, Quantitative, Bilateral Screening Test Of Visual Acuity, Quantitative, Bilateral 31995 7 [facility] Determination Of Refractive State Determination Of Refractive State 69906 7 [facility] Ear mold/insert, not disposable, any type 7 [facility] C[facility] Testing 14736 7 BRAND[facility] CARE[facility] Physician Supervised Group Educational Services 7 BRANDEN CAREY Social History Combined list of available smoking, tobacco, and other social history from 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 Social History Type Response Date Comment Sourc e Tobacco smoking status NHIS [facility]-TO[facility] FORMER USER 03/27/2023 [facility]EE[facility] MONREALOC History of tobacco use VA-TOBACCO QUIT 5 TO < 15 YRS 03/27/2023 [facility] This section is an empty social history section. [employer] Plan of Care List of future care activities from Department of 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 Additional future care activities may be listed in the Assessment and Plan section. Date/Time Care Activity Care Activity Detail Facili ty 12/04/2023 AMBULATORY - PSYCHIATRY AM[facility] - PS[facility]C [facility] 12/05/2023 AMBULATORY - [facility]AB MEDICINE [facility] - REHAB MEDICINE [facility] 12/16/2023 AMBULATORY - PSYCHIATRY AMB[facility] - [facility]C [facility] 11/19/2023 Laboratory - Chemistry Order HARRIETT STASE-1,PANC STL STOOL FECES SP ONCE [facility] 11/19/2023 Laboratory - Chemistry Order TTG AB,IGA S GEENA SP ONCE [facility] 11/19/2023 Laboratory - Chemistry Order IGA PLASMA S P ONCE [facility] 11/19/2023 Laboratory - Microbi ology Order OVA and PARASITES FECAL FECES SP ONCE [facility] 11/19/2023 Laboratory - Chemistry Order ENT CURT PATHOGEN PCR PANEL STOOL FECES SP ONCE [facility]
--- OUTSIDE RECORDS SUMMARY | 2023-11-29 19:14 | XMS_ITS | Encounter Summary ---
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 children Tobacco- former smoker, occasional smoking currently ETOH- none Illicit drugs- no Last PAP and HPV- 06/12/20- normal, next in 2024 Last Efren- 09/2021 Last hospitalization- 01/2022- abdominal pain Past Surgical hx: left ankle repair appendectomy cholecystectomy-2015 Allergies: PFIZER COVID-19 VACCINE (EUA) (Mar 26, 2023) FENTANYL (Mar 26, 2023) INFLUENZA (Mar 26, 2023) MIRALAX (Mar 26, 2023) Allergen Reactions * Cephalosporins Other reaction(s): Can not breathe * Covid-19 (Mrna) Vaccine Anaphylaxis, Hives, Itching and Shortness Of Breath Other reaction(s): Edema, Flushing, Throat Swelling/Closing * Fentanyl Other (See Comments) Other reaction(s): GI Upset, sphincter of Oddi spasms Causes pain Abdominal pain * Flu Virus Vaccine * Sulfa Drugs Other reaction(s): RASH Service: Service Branch Service # Entered Discharge [facility] SEP 24, 2006 FEB 12, 2007 HONORABLE Medication Reconciliation: Education Evaluations *Was medication education provided for NEW medications or CHANGES to medications? (including medication name, dose, route, reason for use, and potential side effects). Yes. Verbal education was provided to patient/caregiver and patient/caregiver verbalized understanding. Yes. Education on what medications? New medication(s) Medication changes Education provided to the following: Patient Type of education provided: Verbal Assessment of patient understanding of education content. Verbalized understanding TERATOGENIC MED & CONTRACEPTION REVIEW (Optional)... was informed about potential teratogenic risk of prescribed medications. intentions and need for effective contraception, if applicable, were discussed. MEDICATION RECONCILIATION List Given: An updated medication list was provided to the patient/caregiver. Review Done: The medication list shown below was verified for accuracy and it includes all pending medications/active medications/all medications or discontinued within the last 90 days/all remote medications and non-VA medications. If a given category (i.e. remote meds) is not shown, that means that a patient doesn't have a medication(s) in that category. Allergies listed below were also reviewed/updated for accuracy. Allergies/ADR from [facility] may not display in CPRS. Use JLV MRT5 - Allergies/ADRs FACILITY ALLERGY/ADR -------- [facility] REPT EFF [id number] INFLUENZA [facility] FENTANYL [facility] INFLUENZA [facility] MIRALAX [facility] PFIZER COVID-19 VACCINE (EUA) Active and Recently Outpatient Medications (including Supplies): Issue Date Status Last Fill Pending Outpatient Medications Refills Expiration 1) ALBUTEROL 90MCG (CFC-F) 200D ORAL INHL PENDING Qty: 1 Sig: INHALE 1 PUFF BY Refills: 0 INHALATION NEEDED 2) ATORVASTATIN CALCIUM 20MG TAB Qty: 90 PENDING Sig: TAKE ONE TABLET BY MOUTH AT Refills: 0 BEDTIME 3) CEFTAZIDIME 1GM/ INJ Qty: 3 Sig: PENDING INJECT 1 GRAM IV ONCE A MONTH Refills: 0 4) CYCLOBENZAPRINE HCL 5MG TAB Qty: 180 PENDING Sig: TAKE ONE TABLET BY MOUTH THREE Refills: 0 TIMES A DAY NEEDED 5) DULOXETINE HCL 60MG EC CAP Qty: 90 PENDING Sig: TAKE ONE CAPSULE BY MOUTH EVERY Refills: 0 DAY 6) EPINEPHRINE (EQV-EPI-PEN) 0.3MG/0.3ML PENDING Qty: 2 Sig: INJECT 1 PEN DIRECTED Refills: 0 NEEDED 7) FEXOFENADINE HCL 180MG TAB Qty: 180 PENDING Sig: TAKE ONE TABLET BY MOUTH TWICE A Refills: 0 DAY 8) FLUTICAS 250/SALMETEROL 50 INHL DISK 60 PENDING Qty: 1 Sig: INHALE 1 PUFF BY Refills: 0 INHALATION TWICE A DAY 9) HYDROXYZINE HCL 25MG TAB Qty: 20 Sig: PENDING TAKE ONE TABLET BY MOUTH AT BEDTIME Refills: 0 NEEDED 10) IBUPROFEN 800MG TAB Qty: 180 Sig: TAKE PENDING ONE TABLET BY MOUTH THREE TIMES A DAY Refills: 0 NEEDED 11) METHYLPREDNISOLONE 4MG TAB DOSEPAK,21 PENDING Qty: 1 Sig: TAKE ACCORDING TO Refills: 0 DIRECTIONS IN PACKAGE BY MOUTH DIRECTED 12) ONDANSETRON HCL 4MG TAB Qty: 30 Sig: PENDING TAKE ONE TABLET BY UNDER THE TONGUE Refills: 0 EVERY 6 HOURS NEEDED 13) PREDNISONE 50MG TAB Qty: 30 Sig: TAKE PENDING TWO TABLETS BY MOUTH NEEDED Refills: 0 14) TACROLIMUS 0.1% TOP OINT Qty: 30 Sig: PENDING APPLY SMALL AMOUNT TOPICALLY Refills: 0 NEEDED Start Date Inactive Non-VA Medications Refills Expiration 1) Non-VA ALBUTEROL 90MCG (CFC-F) 200D ORAL DISCONTINUED INHL Si PUFFS INHALATION 2) Non-VA ATORVASTATIN CALCIUM 20MG TAB DISCONTINUED SiMG MOUTH AT BEDTIME 3) Non-VA CEFTAZIDIME 1GM/ INJ Si DISCONTINUED GRAM IV 4) Non-VA DIPHENHYDRAMINE HCL 50MG CAP DISCONTINUED SiMG MOUTH 6H NEEDED 5) Non-VA DULOXETINE HCL 30MG EC CAP Sig: DISCONTINUED 60MG MOUTH EVERY DAY 6) Non-VA FEXOFENADINE HCL 180MG TAB Sig: DISCONTINUED 180MG MOUTH EVERY EVENING 7) Non-VA FEXOFENADINE HCL 180MG TAB Sig: DISCONTINUED 180MG MOUTH TWICE A DAY 8) Non-VA HYDROXYZINE HCL 25MG TAB Sig: DISCONTINUED 25MG MOUTH THREE TIMES A DAY 9) Non-VA HYDROXYZINE TAB SiMG TAKKE DISCONTINUED 1-2 TABS MOUTH AT BEDTIME NEEDED 10) Non-VA NON VA MED NOT LISTED DISCONTINUED MISCELLANEOUS Sig: EPINEPHRINE (ADRENACLICK JR) 0.15 MG/0.15ML INJECTION 2-PACK, INJECT 0.15 MG NEEDED 11) Non-VA NON VA MED NOT LISTED DISCONTINUED MISCELLANEOUS Sig: FLUTICASONE-SALMETEROL (ADVAIR) 250-50 MCG/ACT INHALER EVERY 12 HOURS 12) Non-VA ONDANSETRON HCL 4MG TAB SiMG DISCONTINUED EVERY 6 HOURS NEEDED 13) Non-VA PREDNISONE 50MG TAB SiMG DISCONTINUED MOUTH EVERY DAY NEEDED 14) Non-VA PREDNISONE 50MG TAB SiMG DISCONTINUED MOUTH 28 Total Medications Physical Exam: Vitals: BP: 125/81 (03/27/2023 09:03) P: 63 (03/27/2023 09:03) R: 14 (03/27/2023 09:03) T: 98.4 F [36.9 C] (03/27/2023 09:03) WT: 213.6 lb. [96.89 kg] (03/27/2023 09:03) BMI: 33.2 Pain: 2 (03/27/2023 09:03) O2 Sat: 98% (03/27/2023 09:) GENERAL: Alert and oriented x 3, No acute distress, Well-nourished, dressed and groomed HEENT: Normocephalic, atraumatic, ear canals clear, TMs normal, OP clear, neck supple without mass, no adenopathy or thyromegaly LUNGS: Clear to auscultation bilaterally, No accessory muscle use no wheezes, rhonchi or rales BREAST- no mass or abnormality, no tenderness CV: RRR without murmur, rub or gallop GI: Abdomen non distended, soft, non-tender, normal bowel sounds in all quadrants, no palpable mass SKIN: Warm and moist, no rash or erythema MSK: No joint swelling, ambulates without difficulty EXTREMITIES: No edema, no swelling NEUROLOGIC: No focal neurological deficits, CN II-XII grossly intact, but not individually tested PSYCHIATRIC: Cooperative, Good eye contact, Appropriate mood and affect Assessment/Plan: Wellness/screening visit completed. Counseling and education provided today includes proper nutrition and health habits, fall prevention, and for those labs and consults ordered today #Annual Vested exam - establish care with [facility] - exploring benefits, patient to see PCSW today - verbal and written education provided on VA services and contact #'s - counseled re: co-management care options; at this time patient prefers to have VA PCP and VA specialists manage all dxs/rxs; - OLGA for FIORELLA signed today and faxed to [facility] department - meds: at this time does want meds through the [facility]; Pharmacy Patient Information Packet given #Annual Vested exam - meds: reviewed, updated and renewed - the ACTIVE PROBLEM LIST above is considered to be the Past Medical History for the purposes of this note; it was reviewed at the time of this visit and no changes unless otherwise noted above #Health Maintenance/Wellness -Exercise: 25-30 min cardio with light weight lifting 5-6x/week -Diet: well balanced -Dental: no concerns, X2 /year -Hearing: no concerns-difficulty hearing, audiology consult provided -Eye Exam: no concerns, wearing contacts, X1 year check up -ASCVD Risk([email or web address]): NA age - Cancer screening: ---> PAP and Mammo- up todate ---> Colon: N/A age -all preventative labs ordered today Active problems - Computerized Problem List is the source for the following: #Cancer cervix screening status - 06/12/2020 PAP NILM/HPV Neg,HR [facility]. Next due for co-test in 5 years, 05/2025. 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 Mammogram Screening: See orders tab for any orders that may have been entered. /Intentions/Contracep tion: The patient is medically able to conceive. The patient states that they are not . An automated review of this patient's chart indicates the following orders are potentially harmful: Orderable Item Status Start Stop ATORVASTATIN TAB 20MG PENDING IBUPROFEN TAB 800MG PENDING Action following medication review: Potentially harmful medications reviewed; counseling completed: Counseled on risk and benefits of continuing or discontinuing medication. Patient verbalized understanding of information provided and desires to proceed with medication prescribed. The patient does not desire within the next year. The patient is doing nothing to prevent . /lilia/ EMIR GRACIA DNP,HARPSICHORD MAKER,ARDMS Signed: 03/27/2023 14:44 Receipt Acknowledged By: 03/27/2023 15:19 /lilia/ FELIX GAVIRIA RN, CWOCN PACT EMIR COHN OC
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
--- OUTSIDE RECORDS SUMMARY | 2023-11-29 19:14 | XMS_ITS | Encounter Summary ---
Author Name [employer] Organization [facility] [employer] Address [address] [place] [address] Support Name Relationship Address Phone MARA CERON Next of Kin [address] [phone] ORTIZ ZAVALA Emergency Contact [address] [place], [place] [id number] ANNIKA ROD Emergency Contact [address] [place], [place] [phone] Selected Encounter This section includes the information on record at [place] for the Encounter. Date/Time Encounter Type Encounter Description Reason Provider Source May 27, 2023 01:40 PM FLUOROGUIDE FOR SPINE INJECT PAIN CLINIC ICD-10-CM G89.29 Other chronic pain DELROY BOUDREAUX Encounter Template Text not used by [place] Assessments - Encounter Diagnoses This section includes the primary and secondary diagnoses documented for the Encounter. Date/Time Primary/Secondary Diagnosis Diagnosis Name Provider Source May 27, 2023 02:32 PM PRIMARY Other chronic pain VALERIE FRAGOSO [facility] Plan of Treatment: Future Appointments (+ 6 months) and Future Tests (+/- 45 days) The Plan of Treatment section includes future care activities for the patient from all [place] treatmentfacilities. This section includes future appointments and future orders which are active, pending or scheduled. Future Appointments This section includes appointments that were scheduled to occur 6 months from the date of the Encounter, up to a maximum of 20 appointments. The data comes from all [place] treatment facilities. Appointment Date/Time Appointment Type Appointme nt Facility Name May 29, 2023 11:00 AM AMBULATORY - [facility]ATRY [facility] Jun 04, 2023 02:30 PM [facility] Jun 05, 2023 02:00 PM AMB[facility]ATORY [facility] Jun 09, 2023 02:00 PM AMBULATORY - PS[facility] Jun 17, 2023 07:45 AM AMBULATORY - SURGERY [facility] Jul 01, 2023 01:00 PM AMBULATORY [facility] PS[facility] Jul 02, 2023 02:00 PM AMBULATORY - REHAB [facility] Jul 08, 2023 01:00 PM AMBULATORY - PS[facility]CHIATRY [facility] Jul 16, 2023 01:00 PM AMBULATORY - REHAB [facility] Jul 22, 2023 11:00 AM AMBULATORY - PS[facility]CHIATRY [facility] Jul 24, 2023 08:45 AM AMBULATORY - SURGERY [facility] Jul 24, 2023 10:00 AM AMBULATORY - PSYCHIATRY [facility] Jul 29, 2023 11:00 AM AMBULATORY - PS[facility]CHIATRY [facility] Jul 31, 2023 10:00 AM AMBULATORY - PSYCHIATRY [facility] Aug 01, 2023 01:00 PM AMBULATORY - REHAB MEDICIN [facility] Aug 06, 2023 01:00 PM AMBULATORY - PS[facility]CHIATRY [facility] Aug 20, 2023 01:00 PM AMBULATORY - PS[facility]CHIATRY [facility] Aug 27, 2023 11:30 AM AMBULATORY - REHAB [facility]IC[facility] Sep 03, 2023 02:00 PM AMBULATORY - PS[facility]CHIATRY [facility] Sep 10, 2023 07:12 PM AMBULATORY - MEDICINE [facility] Vital Signs: All taken on the encounter date This section contains inpatient and outpatient Vital Signs collected on the date of the Encounter. Date/Time Temperature Pulse Blood Pressure Respiratory Rate SP02 Pain Height Weight Body Mass Index Source May 27, 2023 02:45 PM 91 /min 135/80 mm[Hg] [facility] May 27, 2023 02:33 PM 90 /min 126/83 mm[Hg] [facility] May 27, 2023 02:31 PM 80 /min 119/76 mm[Hg] [facility] May 27, 2023 02:28 PM 83 /min 117/72 mm[Hg] [facility] May 27, 2023 02:26 PM 85 /min 94/63 mm[Hg] [facility] Encounter Notes: All associated encounter notes This section contains the clinical notes associated to the Encounter. Date/Time Encounter Note(s) Provider Source May 27, 2023 01:47 PM PAIN CONSULT: LOCAL TITLE: IMAGING REQUEST CONSULT STANDARD TITLE: PAIN CONSULT DATE OF NOTE: MAY 27, 2023@13:47 ENTRY DATE: MAY 27, 2023@13:47:59 AUTHOR: NEGRITO CERNA EXP COSIGNER: URGENCY: STATUS: COMPLETED Images were taken to facilitate procedure carried out by medical provider. <5mL. of OmniPaque 180 was used for this procedure. /lilia/ Feliciano ELAINE(R) HEDDLER Signed: 05/27/2023 13:48 NEGRITO CERNA [facility] May 27, 2023 01:40 PM PAIN CONSULT: LOCAL TITLE: PAIN INTERVENTIONAL PROCEDURE CONSULT STANDARD TITLE: PAIN CONSULT DATE OF NOTE: MAY 27, 2023@13:40 ENTRY DATE: MAY 26, 2023@14:51:05 AUTHOR: MATT FRAGOSO EXP COSIGNER: URGENCY: STATUS: COMPLETED PAIN INTERVENTIONAL PROCEDURE CONSULT Has ADDENDA PM&R PAIN INTERVENTIONAL PROCEDURE NOTE Side: Bilateral Location: Lumbar spine Level: L1 Procedure: Splanchnic Nerve Block Preprocedural diagnosis: Chronic abdominal pain Needle: Spinal 22G 5in Injectate: Lidocaine 1% with epinephrine 2.5 mL Ropivacaine 0.5% 9.0 mL Solumedrol 20 mg Omni 180 2.5 mL Above injectate volume was injected at each side The above noted needle was slowly advanced under fluoroscopic guidance towards the angle formed by the transverse process and the vertebral body. The needle was then gently repositioned as necessary until the tip slid towards the anterolateral border of the vertebral body. The final needle position corresponded to approximately 1-2 mm anterior to the anterior border of the vertebral body as seen on lateral fluoroscopy and 1 cm medial to the lateral aspect of the vertebral body as seen on AP fluoroscopy. Paresthesias WERE NOT noted with final needle positioning. A microbore extension tubing was attached to the needle to minimize any movement of the needle during injection or syringe change. After negative aspiration for heme or CSF, the above noted contrast dye was injected. The dye spread was confirmed using AP and lateral fluoroscopy, demonstrating fascial spread along the anterolateral border of the vertebral body. The dye spread was further confirmed not to be intravascular by using DIGITAL SUBTRACTION ANGIOGRAPHY. Once appropriate contrast dye spread was verified, the above noted Lidocaine with epinephrine was injected to evaluate for intravascular injection. When the heart rate was determined not to increase 2 minutes post injection, the remainder of injectate as noted above was injected. Discussion: Today we performed a lumbar sympathetic block. The goal in performing a sympathetic block is to obtain diagnostic information as well as provide relief from pain permitting greater function. Occasionally it is necessary to perform a series of sympathetic blocks to reverse the windup phenomena often associated with sympathetically maintained pain. Recommendations: 1. Patient is instructed to follow up with their PCP team and our bottle caser RN (Norma Carpio) by phone. Patient may be reconsulted in 3+ months for repeat splanchnic nerve ganglion, if today's procedure provided significant reduction in symptoms and improved function/QoL. 2. The patient has agreed not to travel out of the area for the next 4 days following the procedure so that they can be reevaluated if necessary. 3. No medications were prescribed at today's visit. 4. Additional recommendations: None Patient was seen with Dr. Boudreaux, who was present for the carbone portions of the procedure. /lilia/ LISA FRAGOSO MD PAIN FELLOW Signed: 05/27/2023 14:32 Receipt Acknowledged By: 05/27/2023 21:23 /lilia/ DELROY BOUDREAUX MD PAIN MEDICINE PHYSICIAN 05/27/2023 ADDENDUM STATUS: COMPLETED I was present for and supervised all critical portions of the procedure as detailed in the note above including but not limited to preprocedural time out, site marking, final needle positioning, contrast injection and interpretation, as well as therapeutic injection. I was also available to provide assistance throughout the procedure as needed. Delroy Boudreaux MD Pain Medicine /lilia/ DELROY BOUDREAUX MD PAIN MEDICINE PHYSICIAN Signed: 05/27/2023 21:24 [facility] May 27, 2023 01:21 PM PHYSICAL MEDICINE REHAB NURSING NOTE: LOCAL TITLE: REHAB MEDICINE CLINIC NURSING NOTE STANDARD TITLE: PHYSICAL MEDICINE REHAB NURSING NOTE DATE OF NOTE: MAY 27, 2023@13:21 ENTRY DATE: MAY 27, 2023@13:21:46 AUTHOR: LOYDA PATEL COSIGNER: URGENCY: STATUS: COMPLETED PM&R Interventional Pain Procedure Pre-procedure Patient escorted to clinic via Ambulatory Patient is scheduled for: Bilateral splanchnic block Patient was identified by using full name and social security number and/or date of : Yes Procedure(s) to be performed was(were) discussed with patient and verified to be correct: Yes Patient/Family/Caregiver indicated readiness to learn Yes Barriers to learning: vision, hard of hearing, anxiety Patient and/or family provided with appropriate education and patient and/or family acknowledged understanding: Yes 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: Annika Medications reviewed: Yes Active Outpatient Medications (including Supplies): Outpatient Medications Status 1) ALBUTEROL 90MCG (CFC-F) 200D ORAL INHL INHALE 1 PUFF ACTIVE BY INHALATION FOUR TIMES A DAY NEEDED FOR SHORTNESS OF BREATH 2) ATORVASTATIN CALCIUM 20MG TAB TAKE ONE TABLET BY ACTIVE MOUTH AT BEDTIME FOR CHOLESTEROL 3) CETIRIZINE HCL 5MG TAB TAKE ONE TABLET BY MOUTH EVERY ACTIVE MORNING NEEDED FOR ALLERGIC REACTION 4) CLONIDINE HCL 0.1MG TAB TAKE ONE TABLET BY MOUTH ACTIVE TWICE A DAY NEEDED FOR PAIN 5) DICYCLOMINE HCL 10MG CAP TAKE ONE CAPSULE BY MOUTH ACTIVE THREE TIMES A DAY NEEDED FOR PAIN 6) DULOXETINE HCL 60MG EC CAP TAKE ONE CAPSULE BY MOUTH ACTIVE EVERY DAY FOR MOOD 7) EPINEPHRINE (EQV-EPI-PEN) 0.3MG/0.3ML INJECT 1 PEN ACTIVE DIRECTED NEEDED FOR ALLERGIC REACTION 8) FEXOFENADINE HCL 180MG TAB TAKE ONE TABLET BY MOUTH ACTIVE TWICE A DAY FOR ALLERGIES 9) HYDROMORPHONE 2MG TAB TAKE ONE TABLET BY MOUTH SIX ACTIVE TIMES A DAY FOR 2 DAYS, THEN TAKE ONE TABLET FIVE TIMES A DAY FOR 2 DAYS, THEN TAKE ONE TABLET FOUR TIMES A DAY FOR 2 DAYS, THEN TAKE ONE TABLET THREE TIMES A DAY FOR 2 DAYS, THEN TAKE ONE TABLET TWICE A DAY FOR 2 DAYS, THEN TAKE ONE TABLET EVERY DAY FOR 2 DAYS 10) IBUPROFEN 800MG TAB TAKE ONE TABLET BY MOUTH THREE HOLD TIMES A DAY NEEDED FOR PAIN 11) ONDANSETRON HCL 4MG TAB TAKE ONE TABLET BY MOUTH HOLD EVERY 6 HOURS NEEDED FOR NAUSEA AND VOMITING 12) PREDNISONE 50MG TAB TAKE TWO TABLETS BY MOUTH ACTIVE NEEDED ONCE FOR ANAPHYLAXIS- TAKE IMMEDIATELY 100MG PREDNISONE AND 2 TABS CETIRIZINE (5MG EACH) FOR SEVERE ALLERGIC REACTION 13) TACROLIMUS 0.1% TOP OINT APPLY THIN LAYER TOPICALLY HOLD TWICE A DAY NEEDED FOR SEVERE ITCHING/DERMATITIS Non-VA Medications Status 1) Non-VA HYDROMORPHONE 2MG TAB 4MG MOUTH EVERY 6 HOURS ACTIVE NEEDED 2) Non-VA HYOSCYAMINE TAB,SUBLINGUAL UNDER THE TONGUE ACTIVE 3) Non-VA LORAZEPAM 0.5MG TAB 0.5MG MOUTH EVERY 8 HOURS ACTIVE NEEDED 16 Total Medications Above medication list reviewed by patient and no additional medications noted; Medications held per protocol Allergies: has allergy concerns related to pain procedure: No Allergy to: Temperature: 97.1 F [36.2 C] (05/27/2023 13:21) Pulse: 91 (05/27/2023 13:21) Pulse Oximetry: 100% (05/27/2023 13:21) Respirations: 16 (05/27/2023 13:21) Blood Pressure: 138/89 (05/27/2023 13:21) Pain: 2 (05/27/2023 13:21) PT____ INR - NONE FOUND takes blood thinning medications: Denies ASA/ASA containing products, Fish Oil or Vitamin E in the last 6 days: Denies NSAIDS in the last 7 days: Denies Phosphodiesterase Inhibitors (e.g. Sildenafil, Vardenafil, Tadalafil, Cilostazol) in the last 48 hours: Denies Diabetic: Denies HEMOGLOBIN A1C 4.8 (03/27/23) Antibiotics in the last week: Denies Sick or had any fever/chills in the last week: Denies Fractures in the past 12 weeks: Denies Surgical procedures (including dental) within the last 3 months: Yes r Upcoming planned surgeries: Denies Rash or any open wounds: Denies Steroid injections within the last 3 months: Not applicable Recent or scheduled vaccines within 2 weeks of this procedure: Not applicable Plans to travel outside of the country or to a place in the [place] where there is not access to medical care within 4 days following the procedure: Denies Patient is : Not applicable Patient ate solid food, broth, Jell-O or candy in the last 4 hours: Denies Patient had clear liquids in the last 2 hours: Denies Patient has pacemaker, defibrillator, nerve stimulator or any implantable devices: Not applicable Patient has a history of dizziness/balance problems: Denies Patient has a history of nausea, lightheadedness, excessive sweating, feeling warm, blood pressure/heart rate drop during a procedure or blood draw: Denies If patient answered YES to any of the above questions: MD/DO WAS verbally informed of the patient's above answers PRIOR to having patient consent to procedure. Provider notified of LST orders: Not applicable Patient was offered a unsigned copy of the informed consent to preview prior to procedure. Procedure explained by: Maye Written informed consent obtained by Maye, using IMed consent. Informed Consent Progress Note containing risks, benefits and alternatives documented. Correct site marked by attending physician. Peripheral IV Placed: 24 gauge Site: Left A/C Site clean, dry and intact. Flushed with Normal Saline, positive blood return. Procedure: Site Marking: Site marked, then verified by attending physician. ---Time out checklist---- Confirm correct patient identity: Yes Confirm Procedure To Be Performed: Yes Confirm Site of the Procedure, Including Laterality: Yes Confirm Valid I-MED Consent: Yes Confirm Patient Position: Yes Confirm Procedure Site has been Marked Appropriately and that the Site of the Ortiz is Visible After Prep and Draping: Yes Pertinent Medical Images Have Been Confirmed, if applicable: Yes Confirm allergies: Yes Fire risk assessment completed: Not Applicable Procedure started: 1346 Procedure ended: 1417 Staff Physician: Maye Medical Fellow: Jamshid Strategy Associate: N/A RN: Kathleen Conventional Mortgage Underwriter: Rusty Nursing observations: Patient assisted to position Prone to facilitate procedure. Patient is prepped and draped in sterile fashion, per Maye/Solow. Patient is continually assessed for comfort and safety (See MD procedure note for procedure and medication specifics) pulse oximeter and heart rate continually monitored throughout procedure. Post injection, puncture wound was cleaned and dressed with tegaderm. Patient assisted into a sitting position and assessed for dizziness, nausea, weakness or any additional complaints. Dressing clean, dry and intact; site free of hematoma/swelling. Complications noted: None Post-procedure: Pt became light headed when going over discharge paperwork. BP at that time was 94/63, Pulse 85. She reported feeling like My head is not attached she was placed in the supine position. BP was then 117/72, Pulse 83. She reported feeling better and was able to drink a glass of water. Bed was slowly changed back into chair position with no further reports of feeling lightheaded. Per Dr Boudreaux He did not want IV fluids started as long as she was taking PO Fluids. If this procedure is repeated in the future she should be encouraged to drink plenty of fluids up to 2 hours before the procedure and she should not need IV fluids. She drank several glasses of water and ate some romero crackers and reported feeling better. Patient transferred via Stretcher to post procedure area. Pulse: 99 Pulse Oximetry: 100 Respirations: 16 Blood Pressure: 126/84 Pain: 0 No Procedure-related weakness, balance or gait alteration noted. Observed by RN for 45 minutes. Peripheral IV discontinued. Site: clean, dry and intact. The patient was instructed to follow up with: PCP for any new concerns and Dr Boudreaux as needed. Pain interventional procedure nurse for repeat procedure. Post procedure instructions were reviewed with patient including: activity restrictions, safety precautions, post procedure pain management, dressing instructions, infection signs/symptoms, and medication side effects. Patient also educated about the expected onset and duration of this procedure. A copy of the instructions was given to the patient, including the contact phone numbers for the [place] Nurse Line and the Pain Clinic Procedure Nurse Coordinator for questions and concerns was provided. Patient verbalized understanding. Patient discharged via Ambulatory at 1502. /lilia/ LOYDA PATEL R.N RN Signed: 05/27/2023 15:17 LOYDA PATEL [facility]
--- OUTSIDE RECORDS SUMMARY | 2023-11-29 19:14 | XMS_ITS | Encounter Summary ---
Author Name [facility] Organization [facility] Address [address] [place] [address] Support Name Relationship Address Phone MARA CERON Next of Kin [address] [phone] ORTIZ ZAVALA Emergency Contact [address] [place], [place] [id number] SAMARIA ROD Emergency Contact [address] [place], [place] [phone] Selected Encounter This section includes the information on record at [place] for the Encounter. Date/Time Encounter Type Encounter Description Reason Provider Source May 09, 2023 08:00 AM OFFICE O/P NEW MOD 45-59 MIN PAIN CLINIC ICD-10-CM K86.1 Other chronic pancreatitis KARY BOUDREAUX Lorie Encounter Template Text not used by [place] Assessments - Encounter Diagnoses This section includes the primary and secondary diagnoses documented for the Encounter. Date/Time Primary/Secondary Diagnosis Diagnosis Name Provider Source May 12, 2023 07:17 AM PRIMARY Other chronic pancreatitis KARY BOUDREAUX [facility] Plan of Treatment: Future Appointments (+ 6 months) and Future Tests (+/- 45 days) The Plan of Treatment section includes future care activities for the patient from all [place] treatmentfacilities. This section includes future appointments and future orders which are active, pending or scheduled. Future Appointments This section includes appointments that were scheduled to occur 6 months from the date of the Encounter, up to a maximum of 20 appointments. The data comes from all [place] treatment facilities. Appointment Date/Time Appointment Type Appointme nt Facility Name May 14, 2023 01:00 PM AMBULATORY [facility] May 22, 2023 08:00 AM AMBULATORY - [facility]IAT[facility] May 27, 2023 01:40 PM AMBULATORY - REHAB MEDICIN [facility] May 29, 2023 11:00 AM AMBULATORY - PSYCHIATRY [facility] Jun 04, 2023 02:30 PM AMBULATORY - MEDICINE [facility] Jun 05, 2023 02:00 PM AMBULATORY - PS[facility]CHIATRY [facility] Jun 09, 2023 02:00 PM AMBULATORY - PS[facility]CHIATRY [facility] Jun 17, 2023 07:45 AM AMBULATORY - SURGERY [facility] Jul 01, 2023 01:00 PM AMBULATORY - PS[facility]CHIATRY [facility] Jul 02, 2023 02:00 PM AMBULATORY - REHAB MEDICIN [facility] Jul 08, 2023 01:00 PM AMBULATORY - PS[facility]CHIATRY [facility] Jul 16, 2023 01:00 PM AMBULATORY - REHAB MEDICIN [facility] Jul 22, 2023 11:00 AM AMBULATORY - PS[facility]CHIATRY [facility] Jul 24, 2023 08:45 AM AMBULATORY - SURGERY [facility] Jul 24, 2023 10:00 AM AMBULATORY - PSYCHIATRY [facility] Jul 29, 2023 11:00 AM AMBULATORY - PS[facility]CHIATRY [facility] Jul 31, 2023 10:00 AM AMBULATORY - PSYCHIATRY [facility] Aug 01, 2023 01:00 PM AMBULATORY - REHAB MEDICIN [facility] Aug 06, 2023 01:00 PM AMBULATORY - PS[facility]CHIATRY [facility] Aug 20, 2023 01:00 PM AMBULATORY - PS[facility]CHIATRY [facility] Vital Signs: All taken on the encounter date This section contains inpatient and outpatient Vital Signs collected on the date of the Encounter. Date/Time Temperature Pulse Blood Pressure Respiratory Rate SP02 Pain Height Weight Body Mass Index Source May 09, 2023 08:02 AM 98 F 91 /min 130/87 mm[Hg] 16 /min 95 % [facility] Encounter Notes: All associated encounter notes This section contains the clinical notes associated to the Encounter. Date/Time Encounter Note(s) Provider Source May 26, 2023 10:49 AM PAIN NOTE: LOCAL TITLE: DATA-BASED OPIOID RISK REVIEW STANDARD TITLE: PAIN NOTE DATE OF NOTE: MAY 26, 2023@10:49 ENTRY DATE: MAY 26, 2023@10:50:13 AUTHOR: DELROY BOUDREAUX EXP COSIGNER: URGENCY: STATUS: COMPLETED Indication(s) for opioid use: Acute pain, opioid therapy possibly beyond 5 days Reason: Prolonged taper following ERCP Opioid trial for chronic pain POINT OF CARE OPIOID RISK REVIEW [place]'s risk of adverse events and STORM data (clinical factors that increase risk for the [place]) were reviewed and discussed. Patient was noted as low risk. [place] has a prior history of or current mental health disorder. Current ongoing treatment: Depression, follows with Plans for risk mitigation strategies and use of universal precautions (i.e. UDS, AGENCY SALES DIRECTOR checks) were discussed. CONSENT FOR SHELTER OPIOID THERAPY (opioids only) No consent found PRESCRIPTION DRUG MONITORING PROGRAM (PDMP) (frequency of PDMP checks should be done in compliance with most restrictive guidance considering provider licensure, state and local/[facility] policy) PDMP has been completed Last PDMP Note Resolution: Last done - 05/12/2023@07:16:47 Computed Finding: [facility]-Progress Note 05/12/2023@07:16:47 value - STATE PRESCRIPTION DRUG MONITORING PROGRAM; Author: DELROY BOUDREAUX LAST URINE DRUG SCREEN (Per local policy, minimum of annual) No UDS data found NALOXONE PRESCRIPTION (if Naloxone order is present and current and has Naloxone currently no action is necessary. If the naloxone order is missing, outdated, or the no longer has Naloxone one of the below must be utilized to address) No Naloxone prescription with a status of Active, , Hold or Suspended found Other: Will reassess need for ongoing therapy after opioid taper, if continuing intermittent opioid will Rx naloxone at that time Functional goals of the opioid trial: Daily activities Follow Up: return to clinic order for follow-up within 30 days has been entered. /lilia/ DELROY BOUDREAUX MD PAIN MEDICINE PHYSICIAN Signed: 05/26/2023 10:54 DELROY BOUDREAUX [facility] May 14, 2023 01:03 PM ADDENDUM: LOCAL TITLE: Addendum STANDARD TITLE: ADDENDUM DATE OF NOTE: MAY 14, 2023@13:03:50 ENTRY DATE: MAY 14, 2023@13:03:51 AUTHOR: DELROY BOUDREAUX EXP COSIGNER: URGENCY: STATUS: COMPLETED I have seen and evaluated the patient with the resident physician as noted above. 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 Her symptomatology has been relatively well managed in the past with intermittent usage of hydromorphone with flares of pain which typically resolved in a period of a few days. She has otherwise had relatively limited treatment for pain with some pharmacotherapy without prior interventions. In addition to management of chronic pain, she is also having difficulty with tapering opioid medication for her current acute pain flare following her most recent ERCP. Depending upon her recovery from her current acute pain flare and her response to interventional treatment, other electronic assembly treatments may or may not be needed. Plan: 1: Additional hydromorphone provided to facilitate taper from current dose of hydromorphone 6 mg TID (9 tablets daily) to discontinuation by a decrease of 1 tablet daily with a target date of discontinuation of 05/16 so that the patient can return to work. If she is not able to tolerate this taper then additional medicaiton can be provided for a longer taper and a work note can also be provided. 2: For presumed sympathetically mediated pain, trial clonidine 0.1 mg QHS with BID dosing if beneficial and not overly sedating. If beneficial for pain and sleep this can be continued QHS PRN 3: Patient reports moderate benefit with current prescription of hyosciamine but has not previously tried dicylcomine. Will trial as alternative therapy and whichever medication is more efficacious can be continued going forward 4: In the setting of both ongoing chronic pain and prolonged flare from her recent procedure we will trial bilateral splanchnic nerve block for management of abdominal pain. Pending the extent and duration of response this may be a useful treatment for the management of chronic pain and/or as an adjunct in the setting of future procedures or for the management of pain flares Delroy Boudreaux MD Pain Medicine /es/ DELROY BOUDREAUX MD PAIN MEDICINE PHYSICIAN Signed: 05/14/2023 13:34 Receipt Acknowledged By: 05/22/2023 12:57 /es/ DAVID THOMAS RN, BSN REGISTERED NURSE for DAVID MENDOZA --- Original Document --- 05/09/23 PAIN CENTER CONSULT: PAIN CLINIC NEW PATIENT EVALUATION CHIEF COMPLAINT Abdominal Pain HISTORY Requesting Provider: EMIR GRACIA Quintin Sands is a 42 year old female with a PMHx of allergies and idiopathic urticaria/ anaphylactic reactions, sphincter motor dysfunction s/p cholecystectomy and multiple ERCPs (extension of PD and CBD sphincterotomies and placement of pancreatic duct stent), followed [facility] in the past, dx 2015. Well controlled, with last flare up 01/2022 (x3 flares of pancreatitis requiring hospitalization in past 1 yr). Had previously followed up with [facility] since 2004 with the gastroenterology team. Patient has ongoing severe pain and on multiple PRN pain meds sent to pain clinic for evaluation and management. Today [facility] She note post ERCP on 04/30/2023 she is still having pain during the flare prior to the ECRP. 04/05/2023 was onset of her recent flare. She notes since 2004 at times flare can be shorter and she able to manage at home for 1-2 days which can be very debilitating, but managed with pain medication for the days. She is currently on Scheduled Dilaudid 6 mg QID. She notes this keeps the pain tolerable, reducing it to <4/10. Has been trying to taper off, tried 4mg TID which did not work out, now she is on 6 mg TID, with added Vistral. She also is using hyoscyamine sulfate to eat. Pain and low appetite are limiting. Pain is main drive away driver. She is keeping up with clear liquids and ensure for protein, has lost 15lbs and in between. Additional relief for pain is with as needed Tylenol and Ibuprofen in between doses. Location is upper abdomen , prior to ERCP was mostly LUQ, not it's now RUQ. She was having pressure like pain wrapping around, which is aggravated by changes in position and prolonged sitting, better with standing, also heat has made it feel a little better. She has no associated vomiting, but is alternating constipation and diarrhea. Has no food sensitivities. Changes have been more significant in bowel habits, tries to eat 4-5 times but definitely very low quantity. Trouble sleeping trying to find position in bed. With the Allovue she has an appt with Gastroenterology in 05/2023. TIMING OF PAIN How often does patient have pain: constant PAIN QUALITY Description of pain: dull, sharpness after eating RELIEVING AND AGGRAVATING FACTORS Aggravating positions/activities include: Prolonged standing, changes in position Alleviating positions/activities include: Laying on her back and rest, standing. GAIT/FALLS does not use a gait aid denies falls within the past 6 months RED FLAGS The patient: denies Bowel/Bladder incontinence denies Unexplained weight loss denies Progressive weakness denies Pain with resting denies Recent Fever/infection/IV Drug use denies History of Cancer PROMIS 6b Baseline PROMIS Pain Interference 6b PROMIS Pain Interference - short form 6b In the past 7 days... How much did pain interfere with your enjoyment of life? Quite a bit (4) How much did pain interfere with your ability to concentrate? Somewhat (3) How much did pain interfere with your day to day activities? Quite a bit (4) How much did pain interfere with your enjoyment of recreational activities? Quite a bit (4) How much did pain interfere with doing your tasks away from home (e.g., getting groceries, running errands)? Quite a bit (4) How often did pain keep you from socializing with others? Often (4) Total RAW Score: 22 RAW SCORE CONVERSION TO T-SCORE: T-score value indicates how score relates to normative samples (a standardized score with a mean of 50 and a standard deviation (SD)of 10). T-Scores >=60 indicate patient is outside the normal range, being 1+ SD worse than average. ----- RAW T-SCORE RAW T-SCORE 6 41 19 62.7 7 48.5 20 63.6 8 50.8 21 64.5 9 52.5 22 65.5 10 53.8 23 66.4 11 55 24 67.4 12 56.1 25 68.5 13 57.1 26 69.6 14 58.1 27 70.9 15 59.1 28 72.4 16 60 29 74.4 17 60.9 30 78.3 18 61.8 T-Score: 65.5 ENDURANCE How long can patient walk before having to stop secondarily to pain? 45 minutes How long can patient sit before having to get up and move about? 20 minutes due to pressure How long can patient stand before patient has to sit down? 45 minutes PRIOR TREATMENTS Acupuncture: No Chiropractic: Yes, x1 every other week. Hard to say if helpful Pain Psychology: No Surgery: ERCP, and appendectomy, cholecystectomies Injections: No Physical Therapy: No Active Meds: - Dilaudid - Tylenol - Ibuprofen Sensitivity to Fentanyl gives her spasms. Notes when she gets off cold turkey has had significant narcotic withdrawal. CURRENT MEDICATIONS: Active Outpatient Medications (excluding Supplies): Outpatient Medications Status 1) ALBUTEROL 90MCG [...] ACTIVE TWICE A DAY FOR ALLERGIES 9) FLUTICAS 250/SALMETEROL 50 INHL DISK 60 INHALE 1 PUFF ACTIVE BY INHALATION TWICE A DAY FOR ASTHMA - RINSE MOUTH AFTER USE 10) HYDROMORPHONE 2MG TAB TAKE THREE TABLETS BY MOUTH ACTIVE THREE TIMES A DAY NEEDED FOR PAIN FOLLOW TAPER REGIMEN PROVIDED IN CLINIC 11) IBUPROFEN 800MG TAB TAKE ONE TABLET BY MOUTH THREE HOLD TIMES A DAY NEEDED FOR PAIN 12) ONDANSETRON HCL 4MG TAB TAKE ONE TABLET BY MOUTH HOLD EVERY 6 HOURS NEEDED FOR NAUSEA AND VOMITING 13) PREDNISONE 50MG TAB TAKE TWO TABLETS BY MOUTH ACTIVE NEEDED ONCE FOR ANAPHYLAXIS- TAKE IMMEDIATELY 100MG PREDNISONE AND 2 TABS CETIRIZINE (5MG EACH) FOR SEVERE ALLERGIC REACTION 14) TACROLIMUS 0.1% TOP OINT APPLY THIN LAYER TOPICALLY HOLD TWICE A DAY NEEDED FOR SEVERE ITCHING/DERMATITIS Non-VA Medications Status 1) Non-VA HYDROMORPHONE 2MG TAB 4MG MOUTH EVERY 6 HOURS ACTIVE NEEDED 2) Non-VA HYOSCYAMINE TAB,SUBLINGUAL UNDER THE TONGUE ACTIVE 3) Non-VA LORAZEPAM 0.5MG TAB 0.5MG MOUTH EVERY 8 HOURS ACTIVE NEEDED 17 Total Medications MEDICATIONS - OPIOID ANALGESICS The patient is currently using Opioid analgesic medications. Daily morphine equivalents per [facility] Opiate Calculator (Not to be used for conversion purposes): 18 mg total in 24 hrs This results in the following functional benefits: helpful NON OPIOID PAIN MEDICATIONS: Vistaril Tylenol Ibuprofen PSYCHOLOGICAL TREATMENT Has patient ever had psychiatric, psychological, or social work evaluations or treatments for any problem, including current pain complaint? No PAST MEDICAL PROBLEMS As in HPI SOCIAL HISTORY Marital Status: but getting a divorce Social Support: Soon to be ex- also good support, divorce is amicable. 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 No TOBACCO Does patient use tobacco products? No Has patient used tobacco in the past? Yes How much? Quit 2012 with prior occasional use for 10 yrs. ALCOHOL Does patient drink alcohol? No RECREATIONAL SUBSTANCES Does patient use recreational substances? No REVIEW OF SYSTEMS ROS is neg except what is in HPI PHYSICAL EXAM: GEN: well developed, well-nourished patient in no apparent distress HEENT: normocephalic, conjunctiva & throat clear ABD: Posture is: straightening of normal lordotic curve, abdominal surgical scars from prior laparoscopic surgeries. Gait: normal gait There are tenderness with palpation over upper abdomen, in RUQ, LUQ and epigastric region. Straight Leg Raise in right aggravates RUQ pain. NEUROMUSCULAR: Inspection: Normal bulk and tone Lower Extremity Manual Muscle Testing Grossly 5/5 in all muscle groups Deep Tendon Reflexes Reflexes : Right/Left, Patellar and Achilles 2 Sensation: Light touch: intact PSYCH: normal affect, mood is good IMAGING No pertinent imaging [facility]in Sands is a 42 year old female with a PMHx of allergies and idiopathic urticaria/ anaphylactic reactions, sphincter motor dysfunction s/p cholecystectomy and multiple ERCPs (extension of PD and CBD sphincterotomies and placement of pancreatic duct stent 04/30/2023), followed [facility] in the past, dx 2015. Well controlled, with last flare up 01/2022 (x3 flares of pancreatitis requiring hospitalization in past 1 yr). Had previously followed up with [facility] since 2005 with the gastroenterology team. Patient has ongoing severe pain and on multiple PRN pain meds sent to pain clinic for evaluation and [facility] 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 Pain currently well managed with p.o. 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 Previous Treatments trialed: Acupuncture: No Chiropractic: Yes, x1 every other week. 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 Notes when she gets off cold turkey has had significant narcotic withdrawal. PLAN: # Patient education: Taper plan for the Dilaudid and addition of Clonidine to help with opioid withdrawal symptoms while coming off Dilaudid, for abdominal pain and sleep. Dilaudid slow taper prescription over the week. Call in a week if not working. # Work Up: - None today # Medications: - Clonidine BID x 1 month: - Dilaudid Taper - Dicyclomine for GI antispasmodic # Therapy/equipment: - None today # Interventions: - No further interventions at this time, can consider splanchnic nerve blocks for a more chronic management. # Referrals/Follow up with other providers: - Can consider Acupuncture # Clinic Follow up: - RTC in 3 months This patient was seen and staffed with Dr. Boudreaux /lilia/ SAMINA ARMSTRONG Resident Physician Signed: 05/09/2023 12:12 Receipt Acknowledged By: 05/14/2023 13:03 /lilia/ DELROY BOUDREAUX MD PAIN MEDICINE PHYSICIAN DELROY BOUDREAUX [facility] May 12, 2023 07:16 AM ACCOUNTING OF DISCLOSURES NOTE: LOCAL TITLE: STATE PRESCRIPTION DRUG MONITORING PROGRAM STANDARD TITLE: ACCOUNTING OF DISCLOSURES NOTE DATE OF NOTE: MAY 12, 2023@07:16:47 ENTRY DATE: MAY 12, 2023@07:16:47 AUTHOR: DELROY BOUDREAUX EXP COSIGNER: URGENCY: STATUS: COMPLETED This PDMP query was submitted by Delroy Boudreaux. The clinical justification for this PDMP query is to review controlled substances prescribed outside of the [place], and any additional information that may become available, as an important component of standard clinical care, and in accordance with [facility] policy. Patient information was shared with the PDMP [place]. Prescription(s) filled outside the [facility] in the last 90 days are noted. However, they do not raise significant safety concerns and do not influence the treatment plan at this time. Acute Rx x3 s/p ERCP as noted in 05/09 evaluation /es/ DELROY BOUDREAUX MD PAIN MEDICINE PHYSICIAN Signed: 05/12/2023 07:[address] [facility] May 09, 2023 11:47 AM PHYSICAL MEDICINE REHAB CONSULT: LOCAL TITLE: PAIN CENTER CONSULT STANDARD TITLE: PHYSICAL MEDICINE REHAB CONSULT DATE OF NOTE: MAY 09, 2023@11:47 ENTRY DATE: MAY 09, 2023@11:47:45 AUTHOR: SAMINA ARMSTRONG COSIGNER: URGENCY: STATUS: COMPLETED PAIN CENTER CONSULT Has ADDENDA PAIN CLINIC NEW PATIENT EVALUATION CHIEF COMPLAINT Abdominal Pain HISTORY Requesting Provider: EMIR GRCAIA Quintin Sands is a 42 year old female with a PMHx of allergies and idiopathic urticaria/ anaphylactic reactions, sphincter motor dysfunction s/p cholecystectomy and multiple ERCPs (extension of PD and CBD sphincterotomies and placement of pancreatic duct stent), followed [facility] in the past, dx 2016. Well controlled, with last flare up 01/2022 (x3 flares of pancreatitis requiring hospitalization in past 1 yr). Had previously followed up with [facility] since 2004 with the gastroenterology team. Patient has ongoing severe pain and on multiple PRN pain meds sent to pain clinic for evaluation and management. Today [facility] She note post ERCP on 04/30/2023 she is still having pain during the flare prior to the ECRP. 04/05/2023 was onset of her recent flare. She notes since 2004 at times flare can be shorter and she able to manage at home for 1-2 days which can be very debilitating, but managed with pain medication for the days. She is currently on Scheduled Dilaudid 6 mg QID. She notes this keeps the pain tolerable, reducing it to <4/10. Has been trying to taper off, tried 4mg TID which did not work out, now she is on 6 mg TID, with added Vistral. She also is using hyoscyamine sulfate to eat. Pain and low appetite are limiting. Pain is main drive away driver. She is keeping up with clear liquids and ensure for protein, has lost 15lbs and in between. Additional relief for pain is with as needed Tylenol and Ibuprofen in between doses. Location is upper abdomen , prior to ERCP was mostly LUQ, not it's now RUQ. She was having pressure like pain wrapping around, which is aggravated by changes in position and prolonged sitting, better with standing, also heat has made it feel a little better. She has no associated vomiting, but is alternating constipation and diarrhea. Has no food sensitivities. Changes have been more significant in bowel habits, tries to eat 4-5 times but definitely very low quantity. Trouble sleeping trying to find position in bed. With the Allovue she has an appt with Gastroenterology in 05/2023. TIMING OF PAIN How often does patient have pain: constant PAIN QUALITY Description of pain: dull, sharpness after eating RELIEVING AND AGGRAVATING FACTORS Aggravating positions/activities include: Prolonged standing, changes in position Alleviating positions/activities include: Laying on her back and rest, standing. GAIT/FALLS does not use a gait aid denies falls within the past 6 months RED FLAGS The patient: denies Bowel/Bladder incontinence denies Unexplained weight loss denies Progressive weakness denies Pain with resting denies Recent Fever/infection/IV Drug use denies History of Cancer PROMIS 6b Baseline PROMIS Pain Interference 6b PROMIS Pain Interference - short form 6b In the past 7 days... How much did pain interfere with your enjoyment of life? Quite a bit (4) How much did pain interfere with your ability to concentrate? Somewhat (3) How much did pain interfere with your day to day activities? Quite a bit (4) How much did pain interfere with your enjoyment of recreational activities? Quite a bit (4) How much did pain interfere with doing your tasks away from home (e.g., getting groceries, running errands)? Quite a bit (4) How often did pain keep you from socializing with others? Often (4) Total RAW Score: 22 RAW SCORE CONVERSION TO T-SCORE: T-score value indicates how score relates to normative samples (a standardized score with a mean of 50 and a standard deviation (SD)of 10). T-Scores >=60 indicate patient is outside the normal range, being 1+ SD worse than average. ----- RAW T-SCORE RAW T-SCORE 6 41 19 62.7 7 48.5 20 63.6 8 50.8 21 64.5 9 52.5 22 65.5 10 53.8 23 66.4 11 55 24 67.4 12 56.1 25 68.5 13 57.1 26 69.6 14 58.1 27 70.9 15 59.1 28 72.4 16 60 29 74.4 17 60.9 30 78.3 18 61.8 T-Score: 65.5 ENDURANCE How long can patient walk before having to stop secondarily to pain? 45 minutes How long can patient sit before having to get up and move about? 20 minutes due to pressure How long can patient stand before patient has to sit down? 45 minutes PRIOR TREATMENTS Acupuncture: No Chiropractic: Yes, x1 every other week. Hard to say if helpful Pain Psychology: No Surgery: ERCP, and appendectomy, cholecystectomies Injections: No Physical Therapy: No Active Meds: - Dilaudid - Tylenol - Ibuprofen Sensitivity to Fentanyl gives her spasms. Notes when she gets off cold turkey has had significant narcotic withdrawal. CURRENT MEDICATIONS: Active Outpatient Medications (excluding Supplies): Outpatient Medications Status 1) ALBUTEROL 90MCG [...] ACTIVE TWICE A DAY FOR ALLERGIES 9) FLUTICAS 250/SALMETEROL 50 INHL DISK 60 INHALE 1 PUFF ACTIVE BY INHALATION TWICE A DAY FOR ASTHMA - RINSE MOUTH AFTER USE 10) HYDROMORPHONE 2MG TAB TAKE THREE TABLETS BY MOUTH ACTIVE THREE TIMES A DAY NEEDED FOR PAIN FOLLOW TAPER REGIMEN PROVIDED IN CLINIC 11) IBUPROFEN 800MG TAB TAKE ONE TABLET BY MOUTH THREE HOLD TIMES A DAY NEEDED FOR PAIN 12) ONDANSETRON HCL 4MG TAB TAKE ONE TABLET BY MOUTH HOLD EVERY 6 HOURS NEEDED FOR NAUSEA AND VOMITING 13) PREDNISONE 50MG TAB TAKE TWO TABLETS BY MOUTH ACTIVE NEEDED ONCE FOR ANAPHYLAXIS- TAKE IMMEDIATELY 100MG PREDNISONE AND 2 TABS CETIRIZINE (5MG EACH) FOR SEVERE ALLERGIC REACTION 14) TACROLIMUS 0.1% TOP OINT APPLY THIN LAYER TOPICALLY HOLD TWICE A DAY NEEDED FOR SEVERE ITCHING/DERMATITIS Non-VA Medications Status 1) Non-VA HYDROMORPHONE 2MG TAB 4MG MOUTH EVERY 6 HOURS ACTIVE NEEDED 2) Non-VA HYOSCYAMINE TAB,SUBLINGUAL UNDER THE TONGUE ACTIVE 3) Non-VA LORAZEPAM 0.5MG TAB 0.5MG MOUTH EVERY 8 HOURS ACTIVE NEEDED 17 Total Medications MEDICATIONS - OPIOID ANALGESICS The patient is currently using Opioid analgesic medications. Daily morphine equivalents per [facility] Opiate Calculator (Not to be used for conversion purposes): 18 mg total in 24 hrs This results in the following functional benefits: helpful NON OPIOID PAIN MEDICATIONS: Vistaril Tylenol Ibuprofen PSYCHOLOGICAL TREATMENT Has patient ever had psychiatric, psychological, or social work evaluations or treatments for any problem, including current pain complaint? No PAST MEDICAL PROBLEMS As in HPI SOCIAL HISTORY Marital Status: but getting a divorce Social Support: Soon to be ex- also good support, divorce is amicable. 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 No TOBACCO Does patient use tobacco products? No Has patient used tobacco in the past? Yes How much? Quit 2011 with prior occasional use for 10 yrs. ALCOHOL Does patient drink alcohol? No RECREATIONAL SUBSTANCES Does patient use recreational substances? No REVIEW OF SYSTEMS ROS is neg except what is in HPI PHYSICAL EXAM: GEN: well developed, well-nourished patient in no apparent distress HEENT: normocephalic, conjunctiva & throat clear ABD: Posture is: straightening of normal lordotic curve, abdominal surgical scars from prior laparoscopic surgeries. Gait: normal gait There are tenderness with palpation over upper abdomen, in RUQ, LUQ and epigastric region. Straight Leg Raise in right aggravates RUQ pain. 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 Well controlled, with last flare up 01/2022 (x3 flares of pancreatitis requiring hospitalization in past 1 yr). Had previously followed up with [facility] since 2004 with the gastroenterology team. Patient has ongoing severe pain and on multiple PRN pain meds sent to pain clinic for evaluation and [facility] 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 Pain currently well managed with p.o. 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 Previous Treatments trialed: Acupuncture: No Chiropractic: Yes, x1 every other week. 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 Notes when she gets off cold turkey has had significant narcotic withdrawal. PLAN: # Patient education: Taper plan for the Dilaudid and addition of Clonidine to help with opioid withdrawal symptoms while coming off Dilaudid, for abdominal pain and sleep. Dilaudid slow taper prescription over the week. Call in a week if not working. # Work Up: - None today # Medications: - Clonidine BID x 1 month: - Dilaudid Taper - Dicyclomine for GI antispasmodic # Therapy/equipment: - None today # Interventions: - No further interventions at this time, can consider splanchnic nerve blocks for a more chronic management. # Referrals/Follow up with other providers: - Can consider Acupuncture # Clinic Follow up: - RTC in 3 months This patient was seen and staffed with Dr. Boudreaux /lilia/ SAMINA ARMSTRONG Resident Physician Signed: 05/09/2023 12:12 Receipt Acknowledged By: 05/14/2023 13:03 /lilia/ DELROY BOUDREAUX MD PAIN MEDICINE PHYSICIAN 05/14/2023 ADDENDUM STATUS: COMPLETED I have seen and evaluated the patient with the resident physician as noted above. Briefly, the patient is a 42 year old female [place] who presents for evaluation of chronic abdominal pain secondary to sphincter of oddi dysfunction with recent pain flare following ERCP with sphincterotomy and stent placement. Her symptomatology has been relatively well managed in the past with intermittent usage of hydromorphone with flares of pain which typically resolved in a period of a few days. She has otherwise had relatively limited treatment for pain with some pharmacotherapy without prior interventions. In addition to management of chronic pain, she is also having difficulty with tapering opioid medication for her current acute pain flare following her most recent ERCP. Depending upon her recovery from her current acute pain flare and her response to interventional treatment, other residential treatments may or may not be needed. Plan: 1: Additional hydromorphone provided to facilitate taper from current dose of hydromorphone 6 mg TID (9 tablets daily) to discontinuation by a decrease of 1 tablet daily with a target date of discontinuation of 05/16 so that the patient can return to work. If she is not able to tolerate this taper then additional medicaiton can be provided for a longer taper and a work note can also be provided. 2: For presumed sympathetically mediated pain, trial clonidine 0.1 mg QHS with BID dosing if beneficial and not overly sedating. If beneficial for pain and sleep this can be continued QHS PRN 3: Patient reports moderate benefit with current prescription of hyosciamine but has not previously tried dicylcomine. Will trial as alternative therapy and whichever medication is more efficacious can be continued going forward 4: In the setting of both ongoing chronic pain and prolonged flare from her recent procedure we will trial bilateral splanchnic nerve block for management of abdominal pain. Pending the extent and duration of response this may be a useful treatment for the management of chronic pain and/or as an adjunct in the setting of future procedures or for the management of pain flares Delroy Boudreaux MD Pain Medicine // DELROY BOUDREAUX MD PAIN MEDICINE PHYSICIAN Signed: 05/14/2023 13:34 Receipt Acknowledged By: * AWAITING SIGNATURE * [facility] May 09, 2023 08:05 AM PHYSICAL MEDICINE REHAB NURSING NOTE: LOCAL TITLE: REHAB MEDICINE CLINIC NURSING NOTE STANDARD TITLE: PHYSICAL MEDICINE REHAB NURSING NOTE DATE OF NOTE: MAY 09, 2023@08:05 ENTRY DATE: MAY 09, 2023@08:05:56 AUTHOR: MU CAGLE EXP COSIGNER: URGENCY: STATUS: COMPLETED C-SSRS Screening [place] Suicide Severity Rating Scale (C-SSRS) screener 1. Over the past month, have you wished you were or wished you could go to sleep and not wake up? No 2. Over the past month, have you had any actual thoughts of killing yourself? No 3. Over the past month, have you been thinking about how you might do this? No 4. Over the past month, have you had these thoughts and had some intention of acting on them? No 5. Over the past month, have you started to work out or worked out the details of how to kill yourself? No 6. If yes, at any time in [...] went to the roof but didn't jump)? Yes 8. If YES, was this within the past 3 months? No Type of visit: Appointment Check In Reason for Visit: Consult Vital Signs: Blood Pressure: 130/87 (05/09/2023 08:02) Pulse: 91 (05/09/2023 08:02) Respiration: 16 (05/09/2023 08:02) Temperature: 98 F [36.7 C] (05/09/2023 08:02) Weight: 213.6 lb [96.89 kg] (03/27/2023 09:03) Height: 67.323 in [171.0 cm] (03/27/2023 09:03) BMI: 33.2 Pain: 2 (03/27/2023 09:03) Allergies: PFIZER COVID-19 VACCINE (EUA) (Mar 26, 2023) FENTANYL (Mar 26, 2023) INFLUENZA (Mar 26, 2023) MIRALAX (Mar 26, 2023) Medications: Non-VA/Over the Counter/Herbal Medications: Patient reports taking outside and/or herbal medications. [facility] medication list has been updated to reflect changes and/or new medications. See list below. Active Outpatient Medications and Supplies: Active Outpatient Medications (including Supplies): Active Outpatient Medications Status 1) ALBUTEROL 90MCG (CFC-F) 200D ORAL INHL INHALE 1 PUFF ACTIVE BY INHALATION FOUR TIMES A DAY NEEDED FOR SHORTNESS OF BREATH 2) ATORVASTATIN CALCIUM 20MG TAB TAKE ONE TABLET BY ACTIVE MOUTH AT BEDTIME FOR CHOLESTEROL 3) CETIRIZINE HCL 5MG TAB TAKE ONE TABLET BY MOUTH EVERY ACTIVE MORNING NEEDED FOR ALLERGIC REACTION 4) DULOXETINE HCL 60MG EC CAP TAKE ONE CAPSULE BY MOUTH ACTIVE EVERY DAY FOR MOOD 5) EPINEPHRINE (EQV-EPI-PEN) 0.3MG/0.3ML INJECT 1 PEN ACTIVE DIRECTED NEEDED FOR ALLERGIC REACTION 6) FLUTICAS 250/SALMETEROL 50 INHL DISK 60 INHALE 1 PUFF ACTIVE BY INHALATION TWICE A DAY FOR ASTHMA - RINSE MOUTH AFTER USE 7) IBUPROFEN 800MG TAB TAKE ONE TABLET BY MOUTH THREE HOLD TIMES A DAY NEEDED FOR PAIN 8) ONDANSETRON HCL 4MG TAB TAKE ONE TABLET BY MOUTH HOLD EVERY 6 HOURS NEEDED FOR NAUSEA AND VOMITING 9) PREDNISONE 50MG TAB TAKE TWO TABLETS BY MOUTH ACTIVE NEEDED ONCE FOR ANAPHYLAXIS- TAKE IMMEDIATELY 100MG PREDNISONE AND 2 TABS CETIRIZINE (5MG EACH) FOR SEVERE ALLERGIC REACTION 10) TACROLIMUS 0.1% TOP OINT APPLY THIN LAYER TOPICALLY HOLD TWICE A DAY NEEDED FOR SEVERE ITCHING/DERMATITIS Pending Outpatient Medications Status 1) FEXOFENADINE HCL 180MG TAB TAKE ONE TABLET BY MOUTH PENDING TWICE A DAY Active Non-VA Medications Status 1) Non-VA HYDROMORPHONE 2MG TAB 4MG MOUTH EVERY 6 HOURS ACTIVE NEEDED 2) Non-VA HYOSCYAMINE TAB,SUBLINGUAL UNDER THE TONGUE ACTIVE 3) Non-VA LORAZEPAM 0.5MG TAB 0.5MG MOUTH EVERY 8 HOURS ACTIVE NEEDED 14 Total Medications Patient reports the following changes regarding the current pharmacy list of medications:Non-VA HYOSCYAMINE TAB 0.125 MG,SUBLINGUAL UNDER THE TONGUE The above medication list confirmed with patient. A copy of the above medication list given to the MD for review and update. Provider will give printed copy of medication list to patient with any changes documented on printed medication list. /lilia/ MU CAGLE LPN LPN Signed: 05/09/2023 08:12 MU CAGLE [facility]
--- OUTSIDE RECORDS SUMMARY | 2023-11-29 19:14 | XMS_ITS | Encounter Summary ---
Author Name [facility] Organization [facility] Address [address] [place] [address] Support Name Relationship Address Phone MARA CERON Next of Kin [address] [phone] ORTIZ ZAVALA Emergency Contact [address] [place], [place] [phone] SAMARIA ROD Emergency Contact [address] [place], [place] [phone] Selected Encounter This section includes the information on record at [facility] for the Encounter. Date/Time Encounter Type Encounter Description Reason Pro vider Source Jun 04, 2023 02:30 PM OFFICE O/P EST HI 40-54 MIN GASTROENTEROLOGY ICD-10-CM R10.9 Unspecified abdominal pain FRANK CHARLES Encounter Template Text not used by [facility] Assessments - Encounter Diagnoses This section includes the primary and secondary diagnoses documented for the Encounter. Date/Time Primary/Secondary Diagnosis Diagnosis Name Provider Source Jun 24, 2023 12:05 PM PRIMARY Unspecified abdominal pain Allen ONEIL [facility] Plan of Treatment: Future Appointments (+ 6 months) and Future Tests (+/- 45 days) The Plan of Treatment section includes future care activities for the patient from all [facility] treatmentfacilities. This section includes future appointments and future orders which are active, pending or scheduled. Future Appointments This section includes appointments that were scheduled to occur 6 months from the date of the Encounter, up to a maximum of 20 appointments. The data comes from all [facility] treatment facilities. Appointment Date/Time Appointment Type Appointme nt Facility Name Jun 05, 2023 02:00 PM AMBULATORY - PS[facility]IATRY [facility] Jun 09, 2023 02:00 PM AMBULATORY - PS[facility]IATRY [facility] Jun 17, 2023 07:45 AM AMBULATORY - SURGERY [facility] Jul 01, 2023 01:00 PM AMBULATORY - PS[facility]IATRY [facility] Jul 02, 2023 02:00 PM AMBULATORY - REHAB MEDICIN [facility] Jul 08, 2023 01:00 PM AMBULATORY - PS[facility]CHIATRY [facility] Jul 16, 2023 01:00 PM AMBULATORY - REHAB MEDICIN E [facility] Jul 22, 2023 11:00 AM AMBULATORY - PS[facility]CHIATRY [facility] Jul 24, 2023 08:45 AM AMBULATORY - SURGERY [facility] Jul 24, 2023 10:00 AM AMBULATORY - PSYCHIATRY [facility] Jul 29, 2023 11:00 AM AMBULATORY - PS[facility]IATRY [facility] Jul 31, 2023 10:00 AM AMBULATORY - PSYCHIATRY [facility] Aug 01, 2023 01:00 PM AMBULATORY - REHAB MEDICIN [facility] Aug 06, 2023 01:00 PM AMBULATORY - PS[facility]CHIATRY [facility] Aug 20, 2023 01:00 PM AMBULATORY - PS[facility]CHIATRY [facility] Aug 27, 2023 11:30 AM AMBULATORY - REHAB MEDICIN E [facility] Sep 03, 2023 02:00 PM AMBULATORY - PS[facility]CHIATRY [facility] Sep 10, 2023 07:12 PM AMBULATORY - MEDICINE [facility] Sep 19, 2023 12:50 PM AMBULATORY - NONE [facility] Oct 01, 2023 01:00 PM AMBULATORY - PS[facility]CHIATRY [facility] Vital Signs: All taken on the encounter date This section contains inpatient and outpatient Vital Signs collected on the date of the Encounter. Date/Time Temperature Pulse Blood Pressure Respiratory Rate SP02 Pain Height Weight Body Mass Index Source Jun 04, 2023 02:34 PM 127/91 mm[Hg] [facility] Jun 04, 2023 02:31 PM 97.8 F 72 /min 139/92 mm[Hg] 17 /min 100 % 2 198.9 lb 31 [facility] Encounter Notes: All associated encounter notes This section contains the clinical notes associated to the Encounter. Date/Time Encounter Note(s) Provider Source Jun 05, 2023 11:29 AM ADDENDUM: LOCAL TITLE: Addendum STANDARD TITLE: ADDENDUM DATE OF NOTE: JUN 05, 2023@11:29:48 ENTRY DATE: JUN 05, 2023@11:29:49 AUTHOR: EMIR GRACIA EXP COSIGNER: URGENCY: STATUS: COMPLETED Please update patient that I have increased her statin dose and added omega-3C for her elevated triglycerides to prevent pancreatitis as per GI recommendation. 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 Here to establish care. 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 Reportedly had elevated liver enzymes initially up until 2016 per patient. Also reported lipase as high as 1700 in the past. Per my JVL reviewed, the available info in 2022 admission and 2004 admission was without liver enzymes elevation. Was on chronic opioid in the past, and now after the celiac nerve neurolysis was able to wean off opioid completely and now on only ibuprofen and acetaminophen. She is on duloxetine since 2020. Pain is controlled now and is managed with pain clinic which is now transferred to [place]. Current literature has been unclear regarding true diagnosis of sphincter of Oddi's dysfunction. She had 5 ERCP with multiple sphincterotomy in the past. # ?Recurrent acute pancreatitis Last EUS 04/2023 without feature of chronic pancreatitis. If new further episode of recurrent pancratitis, would obtain further work-up for recurrent acute pancreatitis including genetic testing (per patient no prior testing). Recs: - Pain as per pain clinic. Agree with celiac neurolysis repeat if needed given good result. - Continue duloxetine, continue as needed ibuprofen and acetaminophen. - If further recurrent worsening pain, doubt any benefit of repeat ERCP for the 6th time. Return to clinic: [address] Charles and Dr. Garcia. Evaristo Oneil MD GI fellow [phone] -- HPI: 42 yo F with chronic urticaria, taking daily antihistamine, reported sphincter of oddi's. Here to establish care. She is loosing private insurance, so planning to switch all care here. Reports recurrent acute pancreatitis and acute on chronic abdominal pain for 18 years about 20-25 times. Pressure 20 mmHg with elevated liver enzymes 3-4 times value in the paast (unable to see elevated liver enzymes in the available record). Has 2 types of pain. 1. Chronic pain: dull aching epigastric radiates to LUQ, all time worsneing with eating. 2. Acute pancreatic flare up pain: pain wrap both sides, sharp and squeezing both side of the body. Episoding. Ususally with elevated lipase. Not related to angioedema episode. Usually during stress. Lasts ~2-3 days. Sometimes has to be in the hospital so would lasts about 1 week. Trigger usually fentanyl. Pain not related to onset of urticaria. Reviewed of her initial presentation: - 11/2004 delivery a child - Pain since 03/2005, found to have acute appendicitis s/p appedectomy. Post procedure had diarrhea - 04/2005 sudden severe epigastric pain. Mild elevated amylase, CT pancreatic inflammation. - 05/2005 recurrent severe pain. Transferred to [facility] and was admitted 05/25- 06/03/2005 with acute pancreatitis. Lipase 347. No alcohol use, normal Ca/TG, no gallstone or biliary dilation. Anti-smooth muscle antibodies, antinuclear antibodies, rheumatoid factor, IgG4 all negative. ERCP with biliary sphincterotomy was done 05/29 without any abnormality. Up to now on my review (in 2004), no elevated liver enzymes apart from mild elevation of ALP at 40s. - cholecystectomy 09/2005. However still having symptom. - 2015 ERCP (4th ERCP) with sphincterotomy Temo Pires (now retired), no hospitalization since 2015 until 01/2022 with pain. Reported elevated liver enzyme per pt - 01/2022, 08/2022, 03/2023, 04/2023 admission with pain. No liver enzymes elevation. - 03/2023 was last pancreatitis. Used to be on 36 mg diludid orally - 04/28/2023-ERCP Dr Meagan Fraga with 5th sphincterotomy (biliary and pancreatic)after multiple admission. Post procedure, had pain 2 weeks but having relieve of acute flare pain - 05/27/23 had celiac nerve block through pain management. Had episode of hypotension immediately but now resolved. Pain about 08/30. Taking ibuprofen 200 mg BID and 500 mg tylenol BID. Able to wean off opioid completely last week. Taking bentyl whenever eating (eating with pain 3-4, from 08/30). EAting grill chicken and vegtable, keenau, lentils. Loosing weight since 03/2023 about 20 lbs during multiple admission/pain. 24-hour 5-HIAA at 22.8. 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 Uncle, dad side has rare disease of abdomen. PAST MEDICAL HISTORY reviewed. SURGICAL HISTORY --- SURGERIES - NONE FOUND MEDICATIONS (OUTPATIENT) -- Active Outpatient Medications (excluding Supplies): Outpatient Medications [...] 8 HOURS ACTIVE NEEDED 16 Total Medications Allergies: reviewed. polyethylene glycol allergy. Physical Exam vitals reviewed Gen: NAD, alert and conversant HEENT: anicteric sclera CV: No edema Pulm: Breathing comfortably on room air Abd:soft, NT, ND Ext/Skin: no LE edema Labs: reviewed in [facility] Imaging/Studies: Endoscopy: ERCP 05/29/2005 for idiopathic pancreatitis with persistent flare: The esophagus was traversed and the scope passed into the stomach. The lower stomach and duodenum were examined as could be done with the side-viewing endoscope. No inflammation or ulceration was noted. The ampulla was encountered with a straightening maneuver and appeared normal. Initial cannulation resulted in refilling of the head of the pancreas. The duct appeared normal. There was no suggestion of divisum and we did not pursue the duct further. Attention was directed to the common duct, and this was freely cannulated with the help of a wire. Common bile duct was mildly dilated pre-cholecystectomy. Because of a clinical history, we elected to perform a sphincterotomy. A wire was placed in the duct and the sphincterotomy completed over the wire. A 6-mm to 7-mm sphincterotomy was completed without significant heme production. Thereafter, we placed a small balloon into the duct and swept the duct from the bifurcation into the duodenum. No stone material was identified. Followup impacted balloon cholangiogram appeared clear. Intrahepatic ducts were normal as filled out in the study. Cystic duct was patent, gallbladder appeared grossly normal. The scope was withdrawn. The patient tolerated the procedure without apparent complication. Impression:Normal duodenum and ampulla without evidence for inflammation or ulceration. Pancreatic duct normal as seen in the head-not pursued further. Mildly dilated common duct pre-cholecystectomy. Successful sphincterotomy. No definite choledocholithiasis identified. Normal intrahepatic radicals as seen in this study. Patent cystic duct. Normal gallbladder as seen on this study. . 04/28/2023-ERCP he major papilla was normal. The minor papilla was not seen. A long 0.035 inch Soft Jagwire was passed into the biliary tree. The 8.5 mm balloon was passed over the guidewire and the bile duct was then deeply cannulated. Contrast was injected. I personally interpreted the bile duct images. Ductal flow of contrast was adequate. Image quality was adequate. Contrast extended to the hepatic ducts. The main bile duct was normal. There was some resistance to pulling the balloon through the biliary orifice. The ventral pancreatic duct was deeply cannulated with the 8.5 mm balloon. Contrast was injected. Localized irregularity of the pancreatic duct was seen in the pancreatic duct in the genu of the pancreas. A 3 mm ventral pancreatic sphincterotomy extention was made with a monofilament traction (standard) sphincterotome using ERBE electrocautery. There was no post-sphincterotomy bleeding. One 5 Fr by 5 cm pancreatic stent with two external flaps and no internal flaps was placed 4 cm into the ventral pancreatic duct. The stent was in good position. A long 0.035 inch Soft Jagwire was passed into the biliary tree. The short-nosed traction sphincterotome was passed over the guidewire and the bile duct was then deeply cannulated. A 3 mm biliary sphincterotomy extention was made with a traction (standard) sphincterotome using ERBE electrocautery. There was no post-sphincterotomy bleeding. The biliary tree was swept with an 8.5 mm balloon starting at the upper third of the main bile duct. Nothing was found. The balloon pulled through the biliary orifice much more easily. The endoscope was withdrawn from the patient. 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 ENDOSCOPIC FINDIN04/28/23: No gross lesions were noted in the entire examined stomach. The ampulla and examined duodenum were normal. ENDOSONOGRAPHIC FINDING: : There was no sign of significant endosonographic abnormality in the common bile duct. The maximum diameter of the duct was 5 mm. No stones, no biliary sludge, ducts of normal caliber and ducts with regular contour were identified. Gallbladder absent. Pancreatic parenchymal abnormalities were noted in the entire pancreas. These consisted of hyperechoic strands and hyperechoic foci. Some areas of hyperechoic side choi of the PD. PD 3 mm in the head and 2 mm in the body. No pancreas divisum. No mass or cystic lesions Normal celiac axis and left adrenal gland No worrisome mediastinal nodes. Impressions/Post-Op Diagnosis: -Pancreas parenchymal changes without chronic pancreatitis. /lilia/ Evaristo Oneil GI fellow Signed: 06/04/2023 18:53 06/04/2023 ADDENDUM STATUS: COMPLETED Her last triglyceride has been 347. Has been on atorvastatin 20 mg daily. Would like to alert PCP for considering increase dose to prevent future acute pancreatitis. Thanks so much. /lilia/ Evaristo Oneil GI fellow Signed: 06/04/2023 18:55 Receipt Acknowledged By: 06/05/2023 11:23 /lilia/ EMIR GRACIA DNP, APRN, ARDMS 06/05/2023 ADDENDUM STATUS: COMPLETED RN left voicemail for about new medications and requested a call back to further discuss GI recommendations. /es/ FELIX GAVIRIA RN, CWOCN PACT RN Signed: 06/05/2023 12:33 EMIR GRACIA [facility] Jun 04, 2023 06:53 PM ADDENDUM: LOCAL TITLE: Addendum STANDARD TITLE: ADDENDUM DATE OF NOTE: JUN 04, 2023@18:53:32 ENTRY DATE: JUN 04, 2023@18:53:33 AUTHOR: EVARISTO ONEIL COSIGNER: URGENCY: STATUS: COMPLETED Her last triglyceride has been 347. Has been on atorvastatin 20 mg daily. Would like to alert PCP for considering increase dose to prevent future acute pancreatitis. Thanks so much. 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 Here to establish care. 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 Reportedly had elevated liver enzymes initially up until 2016 per patient. Also reported lipase as high as 1700 in the past. Per my JVL reviewed, the available info in 2022 admission and 2004 admission was without liver enzymes elevation. Was on chronic opioid in the past, and now after the celiac nerve neurolysis was able to wean off opioid completely and now on only ibuprofen and acetaminophen. She is on duloxetine since 2020. Pain is controlled now and is managed with pain clinic which is now transferred to [place]. Current literature has been unclear regarding true diagnosis of sphincter of Oddi's dysfunction. She had 5 ERCP with multiple sphincterotomy in the past. # ?Recurrent acute pancreatitis Last EUS 04/2023 without feature of chronic pancreatitis. If new further episode of recurrent pancratitis, would obtain further work-up for recurrent acute pancreatitis including genetic testing (per patient no prior testing). Recs: - Pain as per pain clinic. Agree with celiac neurolysis repeat if needed given good result. - Continue duloxetine, continue as needed ibuprofen and acetaminophen. - If further recurrent worsening pain, doubt any benefit of repeat ERCP for the 6th time. Return to clinic: [address] Charles and Dr. Garcia. Evaristo Oneil MD GI fellow [phone] -- HPI: 42 yo F with chronic urticaria, taking daily antihistamine, reported sphincter of oddi's. Here to establish care. She is loosing private insurance, so planning to switch all care here. Reports recurrent acute pancreatitis and acute on chronic abdominal pain for 18 years about 20-25 times. Pressure 20 mmHg with elevated liver enzymes 3-4 times value in the paast (unable to see elevated liver enzymes in the available record). Has 2 types of pain. 1. Chronic pain: dull aching epigastric radiates to LUQ, all time worsneing with eating. 2. Acute pancreatic flare up pain: pain wrap both sides, sharp and squeezing both side of the body. Episoding. Ususally with elevated lipase. Not related to angioedema episode. Usually during stress. Lasts ~2-3 days. Sometimes has to be in the hospital so would lasts about 1 week. Trigger usually fentanyl. Pain not related to onset of urticaria. Reviewed of her initial presentation: - 11/2004 delivery a child - Pain since 03/2005, found to have acute appendicitis s/p appedectomy. Post procedure had diarrhea - 04/2005 sudden severe epigastric pain. Mild elevated amylase, CT pancreatic inflammation. - 05/2005 recurrent severe pain. Transferred to [facility] and was admitted 05/25- 06/03/2005 with acute pancreatitis. Lipase 347. No alcohol use, normal Ca/TG, no gallstone or biliary dilation. Anti-smooth muscle antibodies, antinuclear antibodies, rheumatoid factor, IgG4 all negative. ERCP with biliary sphincterotomy was done 05/29 without any abnormality. Up to now on my review (in 2004), no elevated liver enzymes apart from mild elevation of ALP at 40s. - cholecystectomy 09/2005. However still having symptom. - 2015 ERCP (4th ERCP) with sphincterotomy Temo Pires (now retired), no hospitalization since 2015 until 01/2022 with pain. Reported elevated liver enzyme per pt - 01/2022, 08/2022, 03/2023, 04/2023 admission with pain. No liver enzymes elevation. - 03/2023 was last pancreatitis. Used to be on 36 mg diludid orally - 04/28/2023-ERCP Dr Meagan Fraga with 5th sphincterotomy (biliary and pancreatic)after multiple admission. Post procedure, had pain 2 weeks but having relieve of acute flare pain - 05/27/23 had celiac nerve block through pain management. Had episode of hypotension immediately but now resolved. Pain about 2/10. Taking ibuprofen 200 mg BID and 500 mg tylenol BID. Able to wean off opioid completely last week. Taking bentyl whenever eating (eating with pain 3-4, from 2/10). EAting grill chicken and vegtable, keenau, lentils. Loosing weight since 03/2023 about 20 lbs during multiple admission/pain. 24-hour 5-HIAA at 22.8. 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 Uncle, dad side has rare disease of abdomen. PAST MEDICAL HISTORY reviewed. SURGICAL HISTORY --- SURGERIES - NONE FOUND MEDICATIONS (OUTPATIENT) -- Active Outpatient Medications (excluding Supplies): Outpatient Medications [...] 8 HOURS ACTIVE NEEDED 16 Total Medications Allergies: reviewed. polyethylene glycol allergy. Physical Exam vitals reviewed Gen: NAD, alert and conversant HEENT: anicteric sclera CV: No edema Pulm: Breathing comfortably on room air Abd:soft, NT, ND Ext/Skin: no LE edema Labs: reviewed in [facility] Imaging/Studies: Endoscopy: ERCP 05/29/2005 for idiopathic pancreatitis with persistent flare: The esophagus was traversed and the scope passed into the stomach. The lower stomach and duodenum were examined as could be done with the side-viewing endoscope. No inflammation or ulceration was noted. The ampulla was encountered with a straightening maneuver and appeared normal. Initial cannulation resulted in refilling of the head of the pancreas. The duct appeared normal. There was no suggestion of divisum and we did not pursue the duct further. Attention was directed to the common duct, and this was freely cannulated with the help of a wire. Common bile duct was mildly dilated pre-cholecystectomy. Because of a clinical history, we elected to perform a sphincterotomy. A wire was placed in the duct and the sphincterotomy completed over the wire. A 6-mm to 7-mm sphincterotomy was completed without significant heme production. Thereafter, we placed a small balloon into the duct and swept the duct from the bifurcation into the duodenum. No stone material was identified. Followup impacted balloon cholangiogram appeared clear. Intrahepatic ducts were normal as filled out in the study. Cystic duct was patent, gallbladder appeared grossly normal. The scope was withdrawn. The patient tolerated the procedure without apparent complication. Impression:Normal duodenum and ampulla without evidence for inflammation or ulceration. Pancreatic duct normal as seen in the head-not pursued further. Mildly dilated common duct pre-cholecystectomy. Successful sphincterotomy. No definite choledocholithiasis identified. Normal intrahepatic radicals as seen in this study. Patent cystic duct. Normal gallbladder as seen on this study. . 04/28/2023-ERCP he major papilla was normal. The minor papilla was not seen. A long 0.035 inch Soft Jagwire was passed into the biliary tree. The 8.5 mm balloon was passed over the guidewire and the bile duct was then deeply cannulated. Contrast was injected. I personally interpreted the bile duct images. Ductal flow of contrast was adequate. Image quality was adequate. Contrast extended to the hepatic ducts. The main bile duct was normal. There was some resistance to pulling the balloon through the biliary orifice. The ventral pancreatic duct was deeply cannulated with the 8.5 mm balloon. Contrast was injected. Localized irregularity of the pancreatic duct was seen in the pancreatic duct in the genu of the pancreas. A 3 mm ventral pancreatic sphincterotomy extention was made with a monofilament traction (standard) sphincterotome using ERBE electrocautery. There was no post-sphincterotomy bleeding. One 5 Fr by 5 cm pancreatic stent with two external flaps and no internal flaps was placed 4 cm into the ventral pancreatic duct. The stent was in good position. A long 0.035 inch Soft Jagwire was passed into the biliary tree. The short-nosed traction sphincterotome was passed over the guidewire and the bile duct was then deeply cannulated. A 3 mm biliary sphincterotomy extention was made with a traction (standard) sphincterotome using ERBE electrocautery. There was no post-sphincterotomy bleeding. The biliary tree was swept with an 8.5 mm balloon starting at the upper third of the main bile duct. Nothing was found. The balloon pulled through the biliary orifice much more easily. The endoscope was withdrawn from the patient. 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 ENDOSCOPIC FINDIN04/28/23: No gross lesions were noted in the entire examined stomach. The ampulla and examined duodenum were normal. ENDOSONOGRAPHIC FINDING: : There was no sign of significant endosonographic abnormality in the common bile duct. The maximum diameter of the duct was 5 mm. No stones, no biliary sludge, ducts of normal caliber and ducts with regular contour were identified. Gallbladder absent. Pancreatic parenchymal abnormalities were noted in the entire pancreas. These consisted of hyperechoic strands and hyperechoic foci. Some areas of hyperechoic side choi of the PD. PD 3 mm in the head and 2 mm in the body. No pancreas divisum. No mass or cystic lesions Normal celiac axis and left adrenal gland No worrisome mediastinal nodes. Impressions/Post-Op Diagnosis: -Pancreas parenchymal changes without chronic pancreatitis. /lilia/ Evaristo Oneil GI fellow Signed: 06/04/2023 18:53 06/05/2023 ADDENDUM STATUS: COMPLETED Please update patient that I have increased her statin dose and added omega-3C for her elevated triglycerides to prevent pancreatitis as per GI recommendation. /lilia/ EMIR GRACIA DNP,[place],ARDMS Signed: 06/05/2023 11:30 Receipt Acknowledged By: * AWAITING SIGNATURE * FELIX BARTLETT NIC[facility] Jun 04, 2023 06:32 PM GASTROENTEROLOGY CONSULT: LOCAL TITLE: GASTROENTEROLOGY CONSULT STANDARD TITLE: GASTROENTEROLOGY CONSULT DATE OF NOTE: JUN 04, 2023@18:32 ENTRY DATE: JUN 04, 2023@18:32:44 AUTHOR: EVARISTO ONEIL EXP COSIGNER: URGENCY: STATUS: COMPLETED GASTROENTEROLOGY CONSULT Has ADDENDA GASTROENTEROLOGY CLINIC FELLOW NOTE CC: abdominal pain, ?history of sphincter of Oddi dysfunction Assessment & Plan: 42 yo F with history of an episode of acute pancreatitis (2004), angioedema, depression, and 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 Here to establish care. 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 Reportedly had elevated liver enzymes initially up until 2016 per patient. Also reported lipase as high as 1700 in the past. Per my [facility] reviewed, the available info in 2022 admission and 2004 admission was without liver enzymes elevation. Was on chronic opioid in the past, and now after the celiac nerve neurolysis was able to wean off opioid completely and now on only ibuprofen and acetaminophen. She is on duloxetine since 2020. Pain is controlled now and is managed with pain clinic which is now transferred to [place]. Current literature has been unclear regarding true diagnosis of sphincter of Oddi's dysfunction. She had 5 ERCP with multiple sphincterotomy in the past. # ?Recurrent acute pancreatitis Last EUS 04/2023 without feature of chronic pancreatitis. If new further episode of recurrent pancratitis, would obtain further work-up for recurrent acute pancreatitis including genetic testing (per patient no prior testing). Recs: - Pain as per pain clinic. Agree with celiac neurolysis repeat if needed given good result. - Continue duloxetine, continue as needed ibuprofen and acetaminophen. - If further recurrent worsening pain, doubt any benefit of repeat ERCP for the 6th time. Return to clinic: [address] Charles and Dr. Garcia. Evaristo Oneil MD GI fellow [phone] -- HPI: 42 yo F with chronic urticaria, taking daily antihistamine, reported sphincter of oddi's. Here to establish care. She is loosing private insurance, so planning to switch all care here. Reports recurrent acute pancreatitis and acute on chronic abdominal pain for 18 years about 20-25 times. Pressure 20 mmHg with elevated liver enzymes 3-4 times value in the paast (unable to see elevated liver enzymes in the available record). Has 2 types of pain. 1. Chronic pain: dull aching epigastric radiates to LUQ, all time worsneing with eating. 2. Acute pancreatic flare up pain: pain wrap both sides, sharp and squeezing both side of the body. Episoding. Ususally with elevated lipase. Not related to angioedema episode. Usually during stress. Lasts ~2-3 days. Sometimes has to be in the hospital so would lasts about 1 week. Trigger usually fentanyl. Pain not related to onset of urticaria. Reviewed of her initial presentation: - 11/2004 delivery a child - Pain since 03/2005, found to have acute appendicitis s/p appedectomy. Post procedure had diarrhea - 04/2005 sudden severe epigastric pain. Mild elevated amylase, CT pancreatic inflammation. - 05/2005 recurrent severe pain. Transferred to [place] and was admitted 05/25- 06/03/2005 with acute pancreatitis. Lipase 347. No alcohol use, normal Ca/TG, no gallstone or biliary dilation. Anti-smooth muscle antibodies, antinuclear antibodies, rheumatoid factor, IgG4 all negative. ERCP with biliary sphincterotomy was done 05/29 without any abnormality. Up to now on my review (in 2004), no elevated liver enzymes apart from mild elevation of ALP at 40s. - cholecystectomy 09/2005. However still having symptom. - 2015 ERCP (4th ERCP) with sphincterotomy Temo Pires (now retired), no hospitalization since 2015 until 01/2022 with pain. Reported elevated liver enzyme per pt - 01/2022, 08/2022, 03/2023, 04/2023 admission with pain. No liver enzymes elevation. - 03/2023 was last pancreatitis. Used to be on 36 mg diludid orally - 04/28/2023-ERCP Dr Meagan Fraga with 5th sphincterotomy (biliary and pancreatic)after multiple admission. Post procedure, had pain 2 weeks but having relieve of acute flare pain - 05/27/23 had celiac nerve block through pain management. Had episode of hypotension immediately but now resolved. Pain about 08/30. Taking ibuprofen 200 mg BID and 500 mg tylenol BID. Able to wean off opioid completely last week. Taking bentyl whenever eating (eating with pain 3-4, from 08/30). EAting grill chicken and vegtable, keenau, lentils. Loosing weight since 03/2023 about 20 lbs during multiple admission/pain. 24-hour 5-HIAA at 22.8. 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 Uncle, dad side has rare disease of abdomen. PAST MEDICAL HISTORY reviewed. SURGICAL HISTORY --- SURGERIES - NONE FOUND MEDICATIONS (OUTPATIENT) -- Active Outpatient Medications (excluding Supplies): Outpatient Medications [...] 8 HOURS ACTIVE NEEDED 16 Total Medications Allergies: reviewed. polyethylene glycol allergy. Physical Exam vitals reviewed Gen: NAD, alert and conversant HEENT: anicteric sclera CV: No edema Pulm: Breathing comfortably on room air Abd:soft, NT, ND Ext/Skin: no LE edema Labs: reviewed in [facility] Imaging/Studies: Endoscopy: ERCP 05/29/2005 for idiopathic pancreatitis with persistent flare: The esophagus was traversed and the scope passed into the stomach. The lower stomach and duodenum were examined as could be done with the side-viewing endoscope. No inflammation or ulceration was noted. The ampulla was encountered with a straightening maneuver and appeared normal. Initial cannulation resulted in refilling of the head of the pancreas. The duct appeared normal. There was no suggestion of divisum and we did not pursue the duct further. Attention was directed to the common duct, and this was freely cannulated with the help of a wire. Common bile duct was mildly dilated pre-cholecystectomy. Because of a clinical history, we elected to perform a sphincterotomy. A wire was placed in the duct and the sphincterotomy completed over the wire. A 6-mm to 7-mm sphincterotomy was completed without significant heme production. Thereafter, we placed a small balloon into the duct and swept the duct from the bifurcation into the duodenum. No stone material was identified. Followup impacted balloon cholangiogram appeared clear. Intrahepatic ducts were normal as filled out in the study. Cystic duct was patent, gallbladder appeared grossly normal. The scope was withdrawn. The patient tolerated the procedure without apparent complication. Impression:Normal duodenum and ampulla without evidence for inflammation or ulceration. Pancreatic duct normal as seen in the head-not pursued further. Mildly dilated common duct pre-cholecystectomy. Successful sphincterotomy. No definite choledocholithiasis identified. Normal intrahepatic radicals as seen in this study. Patent cystic duct. Normal gallbladder as seen on this study. . 04/28/2023-ERCP he major papilla was normal. The minor papilla was not seen. A long 0.035 inch Soft Jagwire was passed into the biliary tree. The 8.5 mm balloon was passed over the guidewire and the bile duct was then deeply cannulated. Contrast was injected. I personally interpreted the bile duct images. Ductal flow of contrast was adequate. Image quality was adequate. Contrast extended to the hepatic ducts. The main bile duct was normal. There was some resistance to pulling the balloon through the biliary orifice. The ventral pancreatic duct was deeply cannulated with the 8.5 mm balloon. Contrast was injected. Localized irregularity of the pancreatic duct was seen in the pancreatic duct in the genu of the pancreas. A 3 mm ventral pancreatic sphincterotomy extention was made with a monofilament traction (standard) sphincterotome using ERBE electrocautery. There was no post-sphincterotomy bleeding. One 5 Fr by 5 cm pancreatic stent with two external flaps and no internal flaps was placed 4 cm into the ventral pancreatic duct. The stent was in good position. A long 0.035 inch Soft Jagwire was passed into the biliary tree. The short-nosed traction sphincterotome was passed over the guidewire and the bile duct was then deeply cannulated. A 3 mm biliary sphincterotomy extention was made with a traction (standard) sphincterotome using ERBE electrocautery. There was no post-sphincterotomy bleeding. The biliary tree was swept with an 8.5 mm balloon starting at the upper third of the main bile duct. Nothing was found. The balloon pulled through the biliary orifice much more easily. The endoscope was withdrawn from the patient. 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 ENDOSCOPIC FINDIN04/28/23: No gross lesions were noted in the entire examined stomach. The ampulla and examined duodenum were normal. ENDOSONOGRAPHIC FINDING: : There was no sign of significant endosonographic abnormality in the common bile duct. The maximum diameter of the duct was 5 mm. No stones, no biliary sludge, ducts of normal caliber and ducts with regular contour were identified. Gallbladder absent. Pancreatic parenchymal abnormalities were noted in the entire pancreas. These consisted of hyperechoic strands and hyperechoic foci. Some areas of hyperechoic side choi of the PD. PD 3 mm in the head and 2 mm in the body. No pancreas divisum. No mass or cystic lesions Normal celiac axis and left adrenal gland No worrisome mediastinal nodes. Impressions/Post-Op Diagnosis: -Pancreas parenchymal changes without chronic pancreatitis. /lilia/ Evaristo Oneil GI fellow Signed: 06/04/2023 18:53 06/04/2023 ADDENDUM STATUS: COMPLETED Her last triglyceride has been 347. Has been on atorvastatin 20 mg daily. Would like to alert PCP for considering increase dose to prevent future acute pancreatitis. Thanks so much. /lilia/ Evaristo Oneil GI fellow Signed: 06/04/2023 18:55 Receipt Acknowledged By: 06/05/2023 11:23 /lilia/ EMIR GRACIA DNP,[place],ARDMS 06/05/2023 ADDENDUM STATUS: COMPLETED Please update patient that I have increased her statin dose and added omega-3C for her elevated triglycerides to prevent pancreatitis as per GI recommendation. /lilia/ EMIR GRACIA DNP,[place],ARDMS Signed: 06/05/2023 11:30 Receipt Acknowledged By: 06/05/2023 12:39 /lilia/ FELIX GAVIRIA RN, CWOCN PACT RN 06/05/2023 ADDENDUM STATUS: COMPLETED RN left voicemail for about new medications and requested a call back to further discuss GI recommendations. /lilia/ FELIX GAVIRIA RN, CWOCN PACT RN Signed: 06/05/2023 12:33 EVARISTO ONEIL [facility] Jun 04, 2023 02:32 PM INTERNAL MEDICINE OUTPATIENT NOTE: LOCAL TITLE: MEDICINE CLINIC NURSING NOTE STANDARD TITLE: INTERNAL MEDICINE OUTPATIENT NOTE DATE OF NOTE: JUN 04, 2023@14:32 ENTRY DATE: JUN 04, 2023@14:32:20 AUTHOR: KERRI SCHAEFFER EXP COSIGNER: URGENCY: STATUS: COMPLETED TYPE OF VISIT: Appointment Check In Type of appointment: In-person appointment REASON FOR VISIT: Scheduled visit ALLERGIES: PFIZER COVID-19 VACCINE (EUA) (Mar 26, 2023) FENTANYL (Mar 26, 2023) INFLUENZA (Mar 26, 2023) MIRALAX (Mar 26, 2023) VITAL SIGNS: Blood Pressure: 139/92 (06/04/2023 14:31) BP recheck: 127/91 (14:33) Pulse: 72 (06/04/2023 14:31) Respiration: 17 (06/04/2023 14:31) Temperature: 97.8 F [36.6 C] (06/04/2023 14:31) Weight: 198.9 lb [90.22 kg] (06/04/2023 14:31) Height: 67.323 in [171.0 cm] (03/27/2023 09:03) BMI: 30.9 O2 Sat: 100% (06/04/2023 14:31) Pain: 2 (06/04/2023 14:31) Patient states she is not having any chest pain, blurry vision or sob. PAIN SCREEN: Patient is not having significant pain that they wish to discuss with their provider today. MEDICATION Active Outpatient Medications (including Supplies): ALBUTEROL 90MCG (CFC-F) 200D ORAL INHL INHALE 1 PUFF BY ACTIVE INHALATION FOUR TIMES A DAY NEEDED FOR SHORTNESS OF BREATH ATORVASTATIN CALCIUM 20MG TAB TAKE ONE TABLET BY MOUTH AT ACTIVE BEDTIME FOR CHOLESTEROL CETIRIZINE HCL 5MG TAB TAKE ONE TABLET BY MOUTH EVERY ACTIVE MORNING NEEDED FOR ALLERGIC REACTION CLONIDINE HCL 0.1MG TAB TAKE ONE TABLET BY MOUTH TWICE A ACTIVE DAY NEEDED FOR PAIN DICYCLOMINE HCL 10MG CAP TAKE ONE CAPSULE BY MOUTH THREE ACTIVE TIMES A DAY NEEDED FOR PAIN DULOXETINE HCL 60MG EC CAP TAKE ONE CAPSULE BY MOUTH EVERY ACTIVE DAY FOR MOOD EPINEPHRINE (EQV-EPI-PEN) 0.3MG/0.3ML INJECT 1 PEN ACTIVE DIRECTED NEEDED FOR ALLERGIC REACTION FEXOFENADINE HCL 180MG TAB TAKE ONE TABLET BY MOUTH TWICE ACTIVE A DAY FOR ALLERGIES HYDROMORPHONE 2MG TAB TAKE ONE TABLET BY MOUTH SIX TIMES A ACTIVE DAY FOR 2 DAYS, THEN TAKE ONE TABLET FIVE TIMES A DAY FOR 2 DAYS, THEN TAKE ONE TABLET FOUR TIMES A DAY FOR 2 DAYS, THEN TAKE ONE TABLET THREE TIMES A DAY FOR 2 DAYS, THEN TAKE ONE TABLET TWICE A DAY FOR 2 DAYS, THEN TAKE ONE TABLET EVERY DAY FOR 2 DAYS IBUPROFEN 800MG TAB TAKE ONE TABLET BY MOUTH THREE TIMES A HOLD DAY NEEDED FOR PAIN ONDANSETRON HCL 4MG TAB TAKE ONE TABLET BY MOUTH EVERY 6 HOLD HOURS NEEDED FOR NAUSEA AND VOMITING PREDNISONE 50MG TAB TAKE TWO TABLETS BY MOUTH NEEDED ACTIVE ONCE FOR ANAPHYLAXIS- TAKE IMMEDIATELY 100MG PREDNISONE AND 2 TABS CETIRIZINE (5MG EACH) FOR SEVERE ALLERGIC REACTION TACROLIMUS 0.1% TOP OINT APPLY THIN LAYER TOPICALLY TWICE HOLD A DAY NEEDED FOR SEVERE ITCHING/DERMATITIS Non-VA HYDROMORPHONE 2MG TAB 4MG MOUTH EVERY 6 HOURS ACTIVE NEEDED Non-VA HYOSCYAMINE TAB,SUBLINGUAL UNDER THE TONGUE ACTIVE Non-VA LORAZEPAM 0.5MG TAB 0.5MG MOUTH EVERY 8 HOURS ACTIVE NEEDED Over the Counter/Herbal Medications: The patient denies taking any outside medications or herbals. /lilia/ KERRI SCHAEFFER LPN Signed: 06/04/2023 14:34 KERRI SCHAEFFER [facility]
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
--- OUTSIDE RECORDS SUMMARY | 2023-11-29 19:14 | XMS_ITS | Encounter Summary ---
Author Name [facility] Organization [facility] Address [address] [place] [address] Support Name Relationship Address Phone MARA CERON Next of Kin [address] [phone] ORTIZ ZAVALA Emergency Contact [address] [place], [place] [phone] SAMARIA ROD Emergency Contact [address] [place], [place] [phone] Selected Encounter This section includes the information on record at ME for the Encounter. Date/Time Encounter Type Encounter Description Reason Provider Source May 07, 2023 12:30 PM OFFICE O/P EST LOW 20-29 MIN PRIMARY CARE/MEDICINE ICD-10-CM K86.1 Other chronic pancreatitis EMIR GRACIA Lorie Encounter Template Text not used by ME Assessments - Encounter Diagnoses This section includes the primary and secondary diagnoses documented for the Encounter. Date/Time Primary/Secondary Diagnosis Diagnosis Name Provider Source May 09, 2023 03:26 PM PRIMARY Other chronic pancreatitis EMIR GRACIA [facility] Plan of Treatment: Future Appointments (+ 6 months) and Future Tests (+/- 45 days) The Plan of Treatment section includes future care activities for the patient from all [facility] treatmentfacilities. This section includes future appointments and future orders which are active, pending or scheduled. Future Appointments This section includes appointments that were scheduled to occur 6 months from the date of the Encounter, up to a maximum of 20 appointments. The data comes from all ME treatment facilities. Appointment Date/Time Appointment Type Appointme nt Facility Name May 09, 2023 08:00 AM AMBULATORY - RE[facility]AB [facility] May 09, 2023 11:00 AM AMBULATORY - [facility] May 14, 2023 01:00 PM AMBULATORY - PS[facility]RY [facility] May 22, 2023 08:00 AM AMBULATORY - PS[facility]RY [facility] May 27, 2023 01:40 PM [facility] May 29, 2023 11:00 AM AMBULATORY - PS[facility]ATRY [facility] Jun 04, 2023 02:30 PM AMBULATORY - MEDICINE [facility] Jun 05, 2023 02:00 PM AMBULATORY - PS[facility]RY [facility] Jun 09, 2023 02:00 PM AMBULATORY - [facility]RY [facility] Jun 17, 2023 07:45 AM AMBULATORY - SURGERY [facility] Jul 01, 2023 01:00 PM AMBULATORY - PS[facility]IATRY [facility] Jul 02, 2023 02:00 PM [facility] Jul 08, 2023 01:00 PM AMBULATORY - [facility]RY [facility] Jul 16, 2023 01:00 PM [facility] Jul 22, 2023 11:00 AM AMBULATORY - PS[facility]RY [facility] Jul 24, 2023 08:45 AM AMBULATORY - [facility] Jul 24, 2023 10:00 AM AMBULATORY - PSYCHIATRY [facility] Jul 29, 2023 11:00 AM AMBULATORY [facility]RY [facility] Jul 31, 2023 10:00 AM AMBULATORY - PSYCHIATRY [facility] Aug 01, 2023 01:00 PM [facility]ATORY - [facility] Social History: Smoking Status (Most current) and Tobacco Use (All prior to encounter date) This section includes the most current, and the historical, smoking and tobacco- related health factors from the ME facility where the Encounter took place. Current Smoking Status This section includes the most current smoking, or tobacco-related health factor, from the ME facility where the Encounter took place. Date/Time Current Smoking Status Comment Facil ity Mar 27, 2023 09:00 AM VA-TOBACCO FORMER USER [facility] Tobacco Use History This section includes a history of the smoking, or tobacco-related health factors, that were collected on or before the date of the Encounter. The data comes from the ME facility where the Encounter took place. Date/Time Smoking Status/Tobacco Use Comment F acility Mar 27, 2023 09:00 AM VA-TOBACCO QUIT 5 TO < 15 YRS [facility] Encounter Notes: All associated encounter notes This section contains the clinical notes associated to the Encounter. Date/Time Encounter Note(s) Provider Source May 07, 2023 12:54 PM PRIMARY CARE KATELYNN MORRIS NOTE: LOCAL TITLE: [facility] NURSING PROGRESS NOTE STANDARD TITLE: PRIMARY CARE NURSING NOTE DATE OF NOTE: MAY 07, 2023@12:54 ENTRY DATE: MAY 07, 2023@12:54:31 AUTHOR: SEBASTIAN ALONSO EXP COSIGNER: URGENCY: STATUS: COMPLETED TYPE OF VISIT: Appointment Check In Type of appointment: In-person appointment REASON FOR VISIT: Hospital FU ALLERGIES: PFIZER COVID-19 VACCINE (EUA) (Mar 26, [...] to talk to their provider about today. Acute pain is new pain, which as been present for less than 6 months Words used to describe pain: dull, other: Interment sharpness Number that best describes pain intensity on average in the past week: 4 Pain located in the following location(s): abdomen Pain has been happening for: 1-4 weeks Pain is worse when: lifting, bending, reaching, squatting, sitting, standing, walking, other: Deep breath Pain is better when: medication Old (Chronic) (began more than 6 months ago) Patient states their average pain this past week is 4 Patient states the average number on how the chronic pain affects their enjoyment of life the past week is 7 Patient states during the past week the average number on how the pain has interfered with their general activity is 7 MEDICATION Active Outpatient Medications (including Supplies): ALBUTEROL 90MCG (CFC-F) 200D ORAL INHL INHALE 1 PUFF BY ACTIVE INHALATION FOUR TIMES A DAY NEEDED FOR SHORTNESS OF BREATH ATORVASTATIN CALCIUM 20MG TAB TAKE ONE TABLET BY MOUTH AT ACTIVE BEDTIME FOR CHOLESTEROL CETIRIZINE HCL 5MG TAB TAKE ONE TABLET BY MOUTH EVERY ACTIVE MORNING NEEDED FOR ALLERGIC REACTION CYCLOBENZAPRINE HCL 5MG TAB TAKE 1-2 TABLETS BY MOUTH HOLD THREE TIMES A DAY NEEDED FOR MUSCLE SPASMS DULOXETINE HCL 60MG EC CAP TAKE ONE CAPSULE BY MOUTH EVERY ACTIVE DAY FOR MOOD EPINEPHRINE (EQV-EPI-PEN) 0.3MG/0.3ML INJECT 1 PEN ACTIVE DIRECTED NEEDED FOR ALLERGIC REACTION FEXOFENADINE HCL 60MG TAB TAKE ONE TABLET BY MOUTH TWICE A ACTIVE DAY FOR ALLERGIES FLUTICAS 250/SALMETEROL 50 INHL DISK 60 INHALE 1 PUFF BY ACTIVE INHALATION TWICE A DAY FOR ASTHMA - RINSE MOUTH AFTER USE IBUPROFEN 800MG TAB TAKE ONE TABLET BY [...] 0.5MG MOUTH EVERY 8 HOURS ACTIVE NEEDED Nursing Annual Screening: Fall History Screen During [...] pressure ulcers, or a wound from a director of graduate medical education or Patient is bed-confined or a wheelchair-user or Patient requires assistance to transfer/change position No, Skin Screen is Negative Home Abuse/Violence Screen Is your home free of abuse and violence? Yes MOVE! Program Screen Body Mass Index (BMI)= 33.2 [place]: Collection DT Specimen Test Name Result Units Ref Range 03/27/2023 10:13 BLOOD !! HEMOGLOBIN A1C 4.8 % 4.0 - 6.0 !! Indicates COMMENTS AVAILABLE...Refer to Interim Lab Report. [place] Hgb A1C: No data available [place] Hgb A1C: No data available Point of Care Hgb A1C: POC HGB A1C____ No Outpatient Nutrition Screen Body Mass Index (BMI)= 33.2 [place]: Collection DT Specimen Test Name Result Units Ref Range 03/27/2023 10:13 BLOOD !! HEMOGLOBIN A1C 4.8 % 4.0 - 6.0 !! Indicates COMMENTS AVAILABLE...Refer to Interim Lab Report. [place] Hgb A1C: No data available [place] Hgb A1C: No data available Point of Care Hgb A1C: POC HGB A1C____ Is patient's BMI less than 18.5? No Does patient have swallowing, coughing, or chewing problems affecting oral intake? No Has patient experienced unplanned weight loss or gain greater than 10 pounds over the last 2 months? Yes Is patient's Hgb A1C (Glycosylated Hemoglobin) greater than 9.5? No Is patient receiving Total Parenteral Nutrition (TPN) or Tube Feedings? No Patient Health Education Screen BARRIERS/SPECIAL NEEDS: Visual limitations PREFERRED STYLE OF LEARNING: Watching something Client Assistive Service (IZZY) Screen Does the patient require assistance with outpatient visit? No /lilia/ SEBASTIAN ALONSO LPN Signed: 05/07/2023 12:58 SEBASTIAN ALONSO [facility] May 07, 2023 11:36 AM PRIMARY CARE NOTE: LOCAL TITLE: [facility] PROGRESS NOTE - [facility] STANDARD TITLE: PRIMARY CARE NOTE DATE OF NOTE: MAY 07, 2023@11:36 ENTRY DATE: MAY 07, 2023@11:36:54 AUTHOR: EMIR GRACIA EXP COSIGNER: URGENCY: STATUS: COMPLETED Today's Nurse check-in note reviewed. seen in the clinic today. Followed all current PPE guidelines during the visit. Preferred name: Quintin Patient brought in outside medical records and have been reviewed: In J LV Co-managed care with a non-VA provider. Non-VA- PCP-[facility] Non-VA specialist: [facility] In the process of transferring care to [place]. Chief complaint: An established patient here for ongoing chronic abdominal pain management. History of Present Illness: A 42 year old female with a PMHx of allergies and idiopathic urticaria/ anaphylactic reactions, sphincter motor dysfunction s/p cholecystectomy and multiple ERCPs (extension of PD and CBD sphincterotomies and placement of pancreatic duct stent), followed [facility] in the past, dx 2016. Well controlled, with last flare up 01/2022 (x3 flares of pancreatitis requiring hospitalization in past 1 yr.). Had previously followed up with [facility] since 2005 with the gastroenterology team. Patient has ongoing severe pain recently went to ED and hospitalization due to abdominal pain and sphincter of Oddi motor dysfunction. follows [facility] but would like to transfer all the [facility]. Today she is here to look for guidance on her pain management. 04/28/2023-ERCP procedure done at [facility] and biliary stent placement done. She received some pain medication but her pain is still not well managed, Dilaudid which is effective but only has 1 day worth of supply. Going to the pain clinic on Friday at [facility]. Today she feels okay-pain 5 out of 10. We discussed in detail about her chronic pain and told her that she should reach out to her GI provider for pain pills until she sees pain clinic. Interval History: Procedure: ERCP, Meagan Fraga MD - [facility] Referring MD: Meagan Fraga MD, on 04/28/23- History of SOD: Post ERCP with extension of PD and CBD sphincterotomies and placement of pancreatic duct stent. Upper EUS-04/28/23 Impressions/Post-Op Diagnosis: -Pancreas parenchymal changes without chronic pancreatitis. . 2/16/23 Procedure: Stress Echo, for exertional dyspnea Cardiac Rhythm: Regular and with premature ventricular contractions. Negative stress echo for ischemia Review of Systems: Denies chest pain, shortness of breath, recent significant. weight changes, rash, bowel or bladder changes, new joint pain or swelling, headaches, lightheadedness, vision changes, new numbness or tingling or weakness. Remainder of the ROS is negative, except as above. Past Medical History: Active problems - Computerized Problem List is the source for the followin. Cancer cervix screening status - 06/12/2020 PAP NILM/HPV Neg,HR [facility]. Next due for co-test in 5 years, 05/2025. 2. Chronic idiopathic urticaria - with physical component , chronic illness- follows Non VA - [facility] - dr. Patricia 3. 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 Generalized anxiety disorder 5. Major depressive disorder 6. History of post-traumatic stress disorder - team at [place] 7. Hyperlipidemia - On statin 8. sphincter motor dysfunction - cholecystectomy and multiple ERCPs, followed [facility] in the past, - 2015 9. Posttraumatic stress disorder 10. No significant change since previous mammogram - recent zachariah on 04/01/23-ACR BI-RADS Category 1 - Negative. Allergies: PFIZER COVID-19 VACCINE (EUA) (Mar 26, 2023) FENTANYL (Mar 26, 2023) INFLUENZA (Mar 26, 2023) MIRALAX (Mar 26, 2023) Medication Reconciliation: Education Evaluations *Was medication education provided for NEW medications or CHANGES to medications? (including medication name, dose, route, reason for use, and potential side effects). No new medications or medication changes during this encounter. TERATOGENIC MED & CONTRACEPTION REVIEW (Optional)... MEDICATION RECONCILIATION List Given: An updated medication [...] FACILITY ALLERGY/ADR -------- [facility] REPT EFF [id number] INFLUENZA [facility] IN[facility] PFIZER COVID-19 VACCINE (EUA) Active and Recently Outpatient Medications (including Supplies): Issue Date Status Last Fill Active Outpatient Medications Refills Expiration 1) ALBUTEROL 90MCG (CFC-F) 200D ORAL INHL ACTIVE Issu:04-02-23 Qty: 2 for 50 days Sig: INHALE 1 PUFF Refills: 3 Last:04-02-23 BY INHALATION FOUR TIMES A DAY Expr:04-02-24 NEEDED FOR SHORTNESS OF BREATH 2) ATORVASTATIN CALCIUM 20MG TAB Qty: 90 ACTIVE Issu:03-27-23 for 90 days Sig: TAKE ONE TABLET BY Refills: 3 Last:03-28-23 MOUTH AT BEDTIME FOR CHOLESTEROL Expr:03-27-24 3) CETIRIZINE HCL 5MG TAB Qty: 90 for 90 ACTIVE Issu:04-02-23 days Sig: TAKE ONE TABLET BY MOUTH Refills: 1 Last:04-02-23 EVERY MORNING NEEDED FOR ALLERGIC Expr:04-02-24 REACTION 4) CLONIDINE HCL 0.1MG TAB Qty: 60 for 30 ACTIVE Issu:05-09-23 days Sig: TAKE ONE TABLET BY MOUTH Refills: 1 Last:05-09-23 TWICE A DAY NEEDED FOR PAIN Expr:05-09-24 5) DICYCLOMINE HCL 10MG CAP Qty: 90 for 30 ACTIVE Issu:05-09-23 days Sig: TAKE ONE CAPSULE BY MOUTH Refills: 1 Last:05-09-23 THREE TIMES A DAY NEEDED FOR PAIN Expr:05-09-24 6) DULOXETINE HCL 60MG EC CAP Qty: 90 for ACTIVE Issu:03-27-23 90 days Sig: TAKE ONE CAPSULE BY Refills: 3 Last:03-28-23 MOUTH EVERY DAY FOR MOOD Expr:03-27-24 7) EPINEPHRINE (EQV-EPI-PEN) 0.3MG/0.3ML ACTIVE Issu:03-27-23 Qty: 2 for 90 days Sig: INJECT 1 PEN Refills: 3 Last:04-01-23 DIRECTED NEEDED FOR ALLERGIC Expr:03-27-24 REACTION 8) FEXOFENADINE HCL 180MG TAB Qty: 180 for ACTIVE Issu:05-07-23 90 days Sig: TAKE ONE TABLET BY MOUTH Refills: 1 Last:05-09-23 TWICE A DAY FOR ALLERGIES Expr:05-07-24 9) FLUTICAS 250/SALMETEROL 50 INHL DISK 60 ACTIVE Issu:03-27-23 Qty: 2 for 60 days Sig: INHALE 1 PUFF Refills: 0 Last:04-01-23 BY INHALATION TWICE A DAY FOR ASTHMA - Expr:05-26-23 RINSE MOUTH AFTER USE 10) HYDROMORPHONE 2MG TAB Qty: 36 for 8 ACTIVE Issu:05-09-23 days Sig: TAKE THREE TABLETS BY MOUTH Refills: 0 Last:05-09-23 THREE TIMES A DAY NEEDED FOR PAIN Expr:06-08-23 FOLLOW TAPER REGIMEN PROVIDED IN CLINIC 11) IBUPROFEN 800MG TAB Qty: 180 for 60 HOLD Issu:03-27-23 days Sig: TAKE ONE TABLET BY MOUTH Refills: 1 THREE TIMES A DAY NEEDED FOR PAIN Expr:03-27-24 12) ONDANSETRON HCL 4MG TAB Qty: 30 for 8 HOLD Issu:03-27-23 days Sig: TAKE ONE TABLET BY MOUTH Refills: 1 EVERY 6 HOURS NEEDED FOR NAUSEA AND Expr:03-27-24 VOMITING 13) PREDNISONE 50MG TAB Qty: 30 for 90 days ACTIVE Issu:03-27-23 Sig: TAKE TWO TABLETS BY MOUTH Refills: 3 Last:04-02-23 NEEDED ONCE FOR ANAPHYLAXIS- TAKE Expr:03-27-24 IMMEDIATELY 100MG PREDNISONE AND 2 TABS CETIRIZINE (5MG EACH) FOR SEVERE ALLERGIC REACTION 14) TACROLIMUS 0.1% TOP OINT Qty: 30 for 30 HOLD Issu:03-27-23 days Sig: APPLY THIN LAYER TOPICALLY Refills: 3 TWICE A DAY NEEDED FOR SEVERE Expr:03-27-24 ITCHING/DERMATITIS Issue Date Status Last Fill Inactive Outpatient Medications Refills Expiration 1) CYCLOBENZAPRINE HCL 5MG TAB Qty: 180 DISCONTINUED Issu:03-27-23 for 30 days Sig: TAKE 1-2 TABLETS BY Refills: 3 Last:03-27-23 MOUTH THREE TIMES A DAY NEEDED FOR Expr:03-27-24 MUSCLE SPASMS 2) FEXOFENADINE HCL 60MG TAB Qty: 180 for DISCONTINUED Issu:04-02-23 90 days Sig: TAKE ONE TABLET BY MOUTH (EDIT) Last:04-02-23 TWICE A DAY FOR ALLERGIES Refills: 1 Expr:04-02-24 3) HYDROXYZINE HCL 25MG TAB Qty: 20 for 20 Issu:03-27-23 days Sig: TAKE ONE TABLET BY MOUTH AT Refills: 0 BEDTIME NEEDED FOR ANXIETY Expr:04-26-23 4) METHYLPREDNISOLONE 4MG TAB DOSEPAK,21 DISCONTINUED Issu:03-27-23 Qty: 1 for 6 days Sig: TAKE ACCORDING Refills: 1 Last:03-27-23 TO DIRECTIONS IN PACKAGE BY MOUTH Expr:03-27-24 DIRECTED FOR ASTHMA/SEVERE ALLERGY FLARE Start Date Active Non-VA Medications Refills Expiration 1) Non-VA HYDROMORPHONE 2MG TAB SiMG ACTIVE MOUTH EVERY 6 HOURS NEEDED 2) Non-VA HYOSCYAMINE TAB,SUBLINGUAL Sig: ACTIVE UNDER THE TONGUE 3) Non-VA LORAZEPAM 0.5MG TAB Si.5MG ACTIVE MOUTH EVERY 8 HOURS NEEDED Start Date Inactive Non-VA Medications Refills [...] Non-VA PREDNISONE 50MG TAB SiMG DISCONTINUED MOUTH 35 Total Medications Physical Exam: Vitals: BP: 130/87 (05/09/2023 08:02) P: 91 (05/09/2023 08:02) R: 16 (05/09/2023 08:02) T: 98 F [36.7 C] (05/09/2023 08:02) WT: 213.6 lb. [96.89 kg] (03/27/2023 09:03) BMI: 33.2 Pain: 2 (03/27/2023 09:03) O2 Sat: 95% (05/09/2023 08:02) GENERAL: Alert and oriented x 3, No acute distress, Well-nourished, dressed and groomed HEENT: Normocephalic, atraumatic, ear canals clear, TMs normal, OP clear, neck supple without mass, no adenopathy or thyromegaly LUNGS: Clear to auscultation bilaterally, No accessory muscle use no wheezes, rhonchi or rales CV: RRR without murmur, rub or gallop [...] eye contact, Appropriate mood and affect Assessment/Plan: 1. sphincter motor dysfunction -Reviewed [facility] notes, she will reach out to her non-VA GI provider for bridging the pain management until she sees VA pain clinic, if she does not get hold of the GI provider or get the refills then I will bridge the pain medication until she sees VA pain clinic -She agreed with plan and keep us updated with her medication -RTC as needed Disclaimer: This note consists of symbols derived from keyboarding, dictation and/or voice recognition software. As a result, there may be errors in the script that have gone undetected. Please consider this when interpreting information found in this chart. /lilia/ EMIR GRACIA DNP, APRN,PETRONA Signed: 05/09/2023 15:26 EMIR GRACIA [facility]
--- OUTSIDE RECORDS SUMMARY | 2023-11-29 19:15 | XMS_ITS | Encounter Summary ---
Author Name Department of Vetera Affairs Organization Department of Vetera Affairs Address [address] [place] [address] Support Name Relationship Address Phone MARA CERON Next of Kin [address] [phone] ORTIZ ZAVALA Emergency Contact [address] [place], [place] [phone] SAMARIA ROD Emergency Contact [address] [place], [place] [phone] Selected Encounter This section includes the information on record at ID for the Encounter. Date/Time Encounter Type Encounter Description Reason Provider Source Sep 03, 2023 02:00 PM PSYTX W PT 45 MINUTES [facility] - IND ICD-10-CM F43.12 Post-traumatic stress disorder, chronic NIMA LOPEZ Lorie Encounter Template Text not used by ID Assessments - Encounter Diagnoses This section includes the primary and secondary diagnoses documented for the Encounter. Date/Time Primary/Secondary Diagnosis Diagnosis Name Provider Source Sep 03, 2023 03:18 PM PRIMARY Post-traumatic stress disorder, SCOTT Napoles [facility] Plan of Treatment: Future Appointments (+ 6 months) and Future Tests (+/- 45 days) The Plan of Treatment section includes future care activities for the patient from all ID treatmentfacilities. This section includes future appointments and future orders which are active, pending or scheduled. Future Appointments This section includes appointments that were scheduled to occur 6 months from the date of the Encounter, up to a maximum of 20 appointments. The data comes from all ID treatment facilities. Appointment Date/Time Appointment Type Appointme nt Facility Name Sep 10, 2023 07:12 PM AMBULATORY - MEDICINE [facility] Sep 19, 2023 12:50 PM AM[facility]ORY - NONE [place] [facility] Oct 01, 2023 01:00 PM [facility] Oct 08, 2023 01:00 PM AM[facility]ORY [facility] Oct 22, 2023 01:00 PM AM[facility]ORY [facility] Nov 05, 2023 01:00 PM [facility] November 19, 2023 03:00 PM [facility] November 28, 2023 01:00 PM [facility] December 04, 2023 09:00 AM AMBULATORY - [facility] December 05, 2023 01:20 PM AMBULATORY - REHAB MEDICIN E [facility] December 16, 2023 02:00 PM AMBULATORY - PS[facility]IATRY [facility] Active, Pending, and Scheduled Orders This section includes a listing of several types of active, pending, and scheduled orders, including clinic medications orders, diagnostic test orders, procedure orders and consult orders; where the start date of the order is 45 days before the date of the Encounter or 45 days after the date of theEncounter. The data comes from all ID treatment facilities. Test Date/Time Test Type Test Details Facility Name Aug 06, 2023 04:31 PM Consult Order [facility] Cons Wind Project Manager's Choice DEEPIKA NOEL Lab Results: +/- 30 days of the encounter This section includes the Chemistry and Hematology Lab Results on record with [facility] for the patient. Radiology Reports and Pathology Reports are provided separately, in subsequent sections. Lab Results This section contains the Chemistry/Hematology Results that were resulted 30 days before or 30 daysafter the date of the Encounter. Date/Time Source Result Type Result - Unit Interpretation Reference Range Comment Sep 10, 2023 07:34 PM [facility] EXTRA MINT TUBE Specimen Type: PLASMA No comment entered. Ordering Provider: WILMAR POWELL Report Released Date/Time: Sep 10, 2023 07:55 PM Reporting Lab: [facility] [place] [address] Performing Lab: [facility] [place] [address] EXTRA MINT TUBE RECEIVED Sep 10, 2023 07:34 PM [facility] LIPASE Specimen Type: PLASMA No comment entered. Ordering Provider: WILMAR POWELL Report Released Date/Time: Sep 10, 2023 07:49 PM Reporting Lab: [facility] [place] [address] Performing Lab: [facility] [place] [address] LIPASE 68 H <60 Sep 10, 2023 07:34 PM [facility] COMPREHENSIVE METABOLIC PANEL+MG Specimen Type: PLASMA No comment entered. Ordering Provider: WILMAR POWELL Report Released Date/Time: Sep 10, 2023 07:49 PM Reporting Lab: [facility] [place] [address] Performing Lab: [facility] [place] [address] CREATININE 1.0 0.5-1.0 UREA NITROGEN 13 7-20 GLUCOSE 94 70-100 SODIUM 136 136-145 POTASSIUM 3.8 3.5-5.1 CHLORIDE 104 98-107 CO2 21 L 22-29 CALCIUM 9.4 8.4-10.2 PROTEIN,TOTAL 7.2 6.0-8.3 ALBUMIN 4.3 3.5-5.2 BILIRUBIN, TOTAL 1.0 0.2-1.2 MAGNESIUM 2.0 1.6-2.6 ANION GAP 11 5-15 ALKALINE PHOSPHATASE 49 40-150 ALT/SGPT 23 <55 AST/SGOT 18 <34 .CREAT EGFR(CKD-EPI) 72 >60 Sep 10, 2023 07:34 PM [facility] CBC & DIFF Specimen Type: BLOOD Comment: Automated Differential Performed Ordering Provider: WILMAR POWELL Report Released Date/Time: Sep 10, 2023 07:49 PM Reporting Lab: [facility] [place] [address] Performing Lab: [facility] [place] [address] WBC 7.45 4.0-11.0 RBC 4.80 4.0-5.4 HGB 13.6 11.5-16 HCT 39.2 34.5-48 MCV 81.7 80-100 MCH 28.3 27-33 MCHC 34.7 32.0-37.5 PLT 369 150-400 MPV 9.4 7.4-10.4 NEUT 55.3 40.0-80.0 LYMPHS 31.8 15.0-45.0 MONO 9.8 2.0-12.0 EOSINO 1.7 0.0-6.0 BASO 1.1 0.0-2.0 RDW 12.5 11.5-14.5 ABS LYMPH 2.37 1.0-4.0 ABS MONO 0.73 0.1-1.0 ABS NEUT 4.12 2.0-7.7 ABS EOS 0.13 0-0.5 ABS BASO 0.08 0-0.2 IG(META,MYELO,P RO) 0.3 ABS IMMATURE GRAN 0.02 0-0.1 Sep 10, 2023 07:34 PM [facility] HCG,QUANTITATIVE Specimen Type: SERUM No comment entered. Ordering Provider: WILMAR POWELL Report Released Date/Time: Sep 10, 2023 07:49 PM Reporting Lab: [facility] [place] [phone] Performing Lab: [facility] [place] [address] HCG,QUANTITATIV E <2.42 <4.99 Sep 10, 2023 07:34 PM [facility] EXTRA BLUE TUBE Specimen Type: PLASMA No comment entered. Ordering Provider: WILMAR POWELL Report Released Date/Time: Sep 10, 2023 07:55 PM Reporting Lab: [facility] [place] [address] Performing Lab: [facility] [place] [address] EXTRA BLUE TUBE RECEIVED Social History: Smoking Status (Most current) and Tobacco Use (All prior to encounter date) This section includes the most current, and the historical, smoking and tobacco- related health factors from the ID facility where the Encounter took place. Current Smoking Status This section includes the most current smoking, or tobacco-related health factor, from the ID facility where the Encounter took place. Date/Time Current Smoking Status Comment Latasha pitts Mar 27, 2023 09:00 AM ID-TOBACCO FORMER USER [facility] Tobacco Use History This section includes a history of the smoking, or tobacco-related health factors, that were collected on or before the date of the Encounter. The data comes from the ID facility where the Encounter took place. Date/Time Smoking Status/Tobacco Use Comment F vish Mar 27, 2023 09:00 AM ID-TOBACCO QUIT 5 TO < 15 YRS [facility] Encounter Notes: All associated encounter notes This section contains the clinical notes associated to the Encounter. Date/Time Encounter Note(s) Provider Source Sep 03, 2023 02:00 PM MENTAL HEALTH NOTE : LOCAL TITLE: MH PROGRESS NOTE STANDARD TITLE: MENTAL HEALTH NOTE DATE OF NOTE: SEP 03, 2023@14:00 ENTRY DATE: SEP 03, 2023@15:16:54 AUTHOR: MILI LOPEZ COSIGNER: URGENCY: STATUS: COMPLETED OUTPATIENT MENTAL HEALTH PROGRESS NOTE Clinic: [facility] [place] Date: 09/03/2023 Length of Session: 50 minutes Method of Interface: In-person Session #16 Author: Mili Lopez, ENVIRONMENTAL SERVICE AIDE, CHASSIS DRIVER Subjective: Met with Quintin Zavala for individual therapy session. We checked in and talked about her sleep, which has been dysregulated due to her school and work schedule. She reported that she has been having nightmares that others have told her about but she does not remember. We discussed creating mindfulness before she goes to sleep to check in with her emotional space. She noted that she was able to catch up on her sleep yesterday and was feeling better today after over 24 hours without sleep. She observed a reduction in emotional reactivity related to the event we processed last time but noted some apprehension about processing a future event as we had discussed. We explored this further and she reflected on the experience, identifying readiness to potato picker where we left off. Pre-session Information Target: Present Processing: Standard EMDR Targeted Incident: finding out about her 's affair Negative Cognition: My needs don't matter Positive Cognition: I deserve to have my needs met and can meet them on my own VoC: 4 Emotions: self-loathing, anger, guilt, panic LORENA: 4 Body Location: stomach Post-session Information Session Outcome: Complete LORENA: 1 VoC: 7 Closure Stabilization needed: None Treatment Notes: processed appropriately and was able to tolerate the emotion that came up throughout. She connected with anger towards herself and recognized how she sets her own needs aside to ensure no one around her is uncomfortable. At one point she struggled to connect with the experience so we tuned in to the physical sensation in her body which she identified as purple with white edges, which was hot and had a vapor that went into her throat. When processing that she reconnected with her anger and with Patient Centered Care Specialist's cognitive interweaves was able to connect with the value she holds for herself. She noted that she felt trapped a couple of time while processing but afterward recognized that she is not trapped and can take care of herself as she sees fit. She adjusted her positive cognition to one that felt more appropriate and noted at the end that she felt a loosening in her chest and felt like she had done a power pose, which Patient Centered Care Specialist reflected that she did. We discussed strategies for taking care of herself and she stated that she would check in with herself before she sees her after today's session as those times can be difficult. Patient Centered Care Specialist suggested she repeat her positive cognition as a mantra in those types of situations. She thanked Patient Centered Care Specialist and expressed her appreciation. Objective: Appearance: Well-groomed, appropriate eye contact Speech: Regular rate/rhythm/volume Motor: Normal Spontaneous movement Mood: Euthymic Affect: Full range, Appropriate, consistent with mood, tearful Thought Content: No Suicidal Ideation/No Homicidal Ideation No Delusions No Hallucinations Thought Process: Linear/Logical/Goal Oriented Judgement: Good Insight: Good Impulse Control: Good Oriented to Person/Place/Time/Reason for Appointment Assessment: [place] was engaged and receptive throughout. She was well-regulated and insightful. She was not dissociative today, though did drift away when feeling trapped. She was redirectable and able to shift perspective. Risk factors include history of SI/suicide attempt, insomnia, relationship issues, race. Protective factors include responsibility to others, children in the home, hope for the future, desire to live, help seeking behaviors, positive therapeutic alliance. Current risk assessment: Low acute, Intermediate chronic Diagnostic Evaluation: PTSD, chronic Plan: RTC in two weeks /lilia/ TROY Grace Liability Claims Adjuster Signed: 09/03/2023 15:18 MILI LOPEZ [facility]
--- OUTSIDE RECORDS SUMMARY | 2023-11-29 19:15 | XMS_ITS | Encounter Summary ---
Author Name Department of Vetera Affairs Organization Department of Vetera ns Affairs Address [address] [place] [address] Support Name Relationship Address Phone MARA CERON Next of Kin [address] [phone] ORTIZ ZAVALA Emergency Contact [address] [place], [place] [phone] SAMAIRA ROD Emergency Contact [address] [place], [place] [phone] Selected Encounter This section includes the information on record at DC for the Encounter. Date/Time Encounter Type Encounter Description Reason Provider Source Aug 29, 2023 02:14 PM HC PRO PHONE CALL 5-10 MIN TELEPHONE/REHAB AND SUPPORT ICD-10-CM G89.29 Other chronic pain NORMA CARPIO Encounter Template Text not used by DC Assessments - Encounter Diagnoses This section includes the primary and secondary diagnoses documented for the Encounter. Date/Time Primary/Secondary Diagnosis Diagnosis Name Provider Source Aug 29, 2023 02:14 PM PRIMARY Other chronic pain NORMA CARPIO [facility] Plan of Treatment: Future Appointments (+ 6 months) and Future Tests (+/- 45 days) The Plan of Treatment section includes future care activities for the patient from all DC treatmentfacilities. This section includes future appointments and future orders which are active, pending or scheduled. Future Appointments This section includes appointments that were scheduled to occur 6 months from the date of the Encounter, up to a maximum of 20 appointments. The data comes from all DC treatment facilities. Appointment Date/Time Appointment Type Appointme nt Facility Name Sep 03, 2023 02:00 PM AM[facility]ATORY [facility] Sep 10, 2023 07:12 PM [facility] [place] [place] [facility] Sep 19, 2023 12:50 PM [facility] Oct 01, 2023 01:00 PM [facility] Oct 08, 2023 01:00 PM AMBUL[facility]ORY - PS[facility]ATRY [facility] Oct 22, 2023 01:00 PM AMBULATORY - [facility]RY [facility] Nov 05, 2023 01:00 PM AM[facility] - [facility]RY [facility] November 19, 2023 03:00 PM [facility] November 28, 2023 01:00 PM AM[facility]RY [facility] December 04, 2023 09:00 AM [facility] December 05, 2023 01:20 PM AMBULATORY - REHAB MEDICIN E [facility] December 16, 2023 02:00 PM AMBULATORY - [...] of theEncounter. The data comes from all DC treatment facilities. Test Date/Time Test Type Test Details Facility Name Aug 06, 2023 04:31 PM Consult [facility] Mass Spectroscopist's Choice DEEPIKA NOEL Lab Results: +/- 30 days of the encounter This section includes the Chemistry and Hematology Lab Results on record with DC for the patient. Radiology Reports and Pathology Reports are provided separately, in subsequent sections. Lab Results This section contains the Chemistry/Hematology Results that were resulted 30 days before or 30 daysafter the date of the Encounter. Date/Time Source Result Type Result - Unit Interpretation Reference Range Comment Sep 10, 2023 07:34 PM [facility] EXTRA MINT TUBE Specimen Type: PLASMA No comment entered. Ordering Provider: WILMAR POWELL Report Released Date/Time: Sep 10, 2023 07:55 PM Reporting Lab: [facility] [id number] Performing Lab: [facility] [phone] EXTRA MINT TUBE RECEIVED Sep 10, 2023 07:34 PM [facility] LIPASE Specimen Type: PLASMA No comment entered. Ordering Provider: WILMAR POWELL Report Released Date/Time: Sep 10, 2023 07:49 PM Reporting Lab: [facility] [phone] Performing Lab: [facility] [address] LIPASE 68 H <60 Sep 10, 2023 07:34 PM [facility] CBC & DIFF Specimen Type: BLOOD Comment: Automated Differential Performed Ordering Provider: WILMAR POWELL Report Released Date/Time: Sep 10, 2023 07:49 PM Reporting Lab: [facility] [address] Performing Lab: [facility] [address] WBC 7.45 4.0-11.0 RBC 4.80 4.0-5.4 HGB [...] 0.02 0-0.1 Sep 10, 2023 07:34 PM [facility] HCG,QUANTITATIVE Specimen Type: SERUM No comment entered. Ordering Provider: WILMAR POWELL Report Released Date/Time: Sep 10, 2023 07:49 PM Reporting Lab: [facility] [phone] Performing Lab: [facility] [phone] HCG,QUANTITATIV E <2.42 <4.99 Sep 10, 2023 07:34 PM [facility] COMPREHENSIVE METABOLIC PANEL+MG Specimen Type: PLASMA No comment entered. Ordering Provider: WILMAR POWELL Report Released Date/Time: Sep 10, 2023 07:49 PM Reporting Lab: [facility] [address] Performing Lab: [facility] [address] CREATININE 1.0 0.5-1.0 UREA NITROGEN 13 7-20 GLUCOSE 94 70-100 SODIUM 136 136-145 POTASSIUM 3.8 3.5-5.1 CHLORIDE 104 98-107 CO2 21 L 22-29 CALCIUM 9.4 8.4-10.2 PROTEIN,TOTAL 7.2 6.0-8.3 ALBUMIN 4.3 3.5-5.2 BILIRUBIN, TOTAL 1.0 0.2-1.2 MAGNESIUM 2.0 1.6-2.6 ANION GAP 11 5-15 ALKALINE PHOSPHATASE 49 40-150 ALT/SGPT 23 <55 AST/SGOT 18 <34 .CREAT EGFR(CKD-EPI) 72 >60 Sep 10, 2023 07:34 PM [facility] EXTRA BLUE TUBE Specimen Type: PLASMA No comment entered. Ordering Provider: WILMAR POWELL Report Released Date/Time: Sep 10, 2023 07:55 PM Reporting Lab: [facility] [phone] Performing Lab: [facility] [address] EXTRA BLUE TUBE RECEIVED Encounter Notes: All associated encounter notes This section contains the clinical notes associated to the Encounter. Date/Time Encounter Note(s) Provider Source Aug 29, 2023 02:14 PM CLEANING AND MAINTENANCE WORKER NOTE: LOCAL TITLE: CLEANING AND MAINTENANCE WORKER NOTE STANDARD TITLE: CLEANING AND MAINTENANCE WORKER NOTE DATE OF NOTE: AUG 29, 2023@14:14 ENTRY DATE: AUG 29, 2023@14:14:39 AUTHOR: NORMA CARPIO COSIGNER: URGENCY: STATUS: COMPLETED Contacted patient via telephone in regards to scheduled follow up on 09/02/[address] Agn, as he will be out on unplanned leave. When questioned, patient denies any immediate need for follow up, noting that she is still active with Dr. Granados, and that her pain has been really well controlled, indicating that she has not had the need to take any of her opioids as prescribed. She is agreeable to RNCM follow up at the completion of therapies with Dr. Granados, and to have next week's appt cancelled. /lilia/ Norma Carpio, RN, BSN Telephonic Nurse Case Manager Nurse Quantity Surveyor [facility]Neurology Clinics Signed: 08/29/2023 14:18 NORMA CARPIO [facility]
--- OUTSIDE RECORDS SUMMARY | 2023-11-29 19:15 | XMS_ITS | Encounter Summary ---
Author Name Department of Vetera Affairs Organization Department of Vetera Affairs Address [address] [place] [address] Support Name Relationship Address Phone MARA CERON Next of Kin [address] [phone] ORTIZ ZAVALA Emergency Contact [address] [place], [place] [phone] SAMARIA ROD Emergency Contact [address] [place], [place] [phone] Selected Encounter This section includes the information on record at ND for the Encounter. Date/Time Encounter Type Encounter Description Reason Pro vider Source Aug 07, 2023 10:00 AM Outpatient Encounter [facility] Encounter Template Text not used by ND Plan of Treatment: Future Appointments (+ 6 months) and Future Tests (+/- 45 days) The Plan of Treatment section includes future care activities for the patient from all ND treatmentfacilities. This section includes future appointments and future orders which are active, pending or scheduled. Future Appointments This section includes appointments that were scheduled to occur 6 months from the date of the Encounter, up to a maximum of 20 appointments. The data comes from all ND treatment facilities. Appointment Date/Time Appointment Type Appointme nt Facility Name Aug 20, 2023 01:00 PM AMBULATORY - PS[facility]CHIATRY [facility] Aug 27, 2023 11:30 AM AMBULATORY - REHAB MEDICIN E [facility] Sep 03, 2023 02:00 PM [facility]AT[facility] Sep 10, 2023 07:12 PM AMB[facility]ORY - [place]ICINE [place] [facility] Sep 19, 2023 12:50 PM AMBULATORY - NONE [facility] Oct 01, 2023 01:00 PM AMBULATORY - PS[facility]CHIATRY [facility] Oct 08, 2023 01:00 PM AMB[facility] - [facility]AT[facility] Oct 22, 2023 01:00 PM AMBULATORY - [facility] Nov 05, 2023 01:00 PM AMBULATORY - [facility]ATRY [facility] November 19, 2023 03:00 PM AMBULATORY - [facility]ICINE [place] [facility] November 28, 2023 01:00 PM AMBULATORY - [facility]AT[facility] December 04, 2023 09:00 AM AMB[facility]ORY - [facility] December 05, 2023 01:20 PM AMBULATORY - REHAB MEDICIN E [facility] December 16, 2023 02:00 PM [...] of theEncounter. The data comes from all ND treatment facilities. Test Date/Time Test Type Test Details Facility Name Aug 06, 2023 04:31 PM Consult [facility] Automotive Hardware Engineer's Choice DEEPIKA MONREAL Encounter Notes: All associated encounter notes This section contains the clinical notes associated to the Encounter. Date/Time Encounter Note(s) Provider Source Aug 07, 2023 12:01 PM NO SHOW NOTE: LOCAL TITLE: NO SHOW/CANCELLATION CLINIC NOTE STANDARD TITLE: NO SHOW NOTE DATE OF NOTE: AUG 07, 2023@12:01 ENTRY DATE: AUG 07, 2023@12:01:06 AUTHOR: BRYAN MARTINEZ EXP COSIGNER: URGENCY: STATUS: COMPLETED not seen for scheduled appointment due to: [place] cancelled See note by Frances Cruz [facility] dated 08/06/23, unable to attend remaining balancing groups due to scheduling conflict. Appointment Rescheduled: No Please review patient chart and medications for renewal needs (if appropriate). [facility] - please cancel all remaining balancing groups. /lilia/ BRYAN MARTINEZ,PhD, STAFF PSYCHOLOGIST Signed: 08/07/2023 12:02 Receipt Acknowledged By: 08/08/2023 08:38 /lilia/ ARACELI ESPINOZA Advanced Computational Geneticist, [facility] BRYAN MARTINEZ [facility]
--- OUTSIDE RECORDS SUMMARY | 2023-11-29 19:15 | XMS_ITS | Encounter Summary ---
Author Name [employer] Organization [facility] Address [address] [place] [address] Support Name Relationship Address Phone MARA CERON Next of Kin [address] [phone] ORTIZ ZAVALA Emergency Contact [address] [place], [place] [phone] SAMARIA ROD Emergency Contact [address] [place], [place] [phone] Selected Encounter This section includes the information on record at ID for the Encounter. Date/Time Encounter Type Encounter Description Reason Provider Source Jun 17, 2023 07:45 AM EVOKED AUDITORY TST COMPLETE AUDIOLOGY ICD-10-CM Z01.118 Encntr for exam of ears and hearing w oth abnormal findings GRETCHEN CASTELLANOS Lorie Encounter Template Text not used by ID Assessments - Encounter Diagnoses This section includes the primary and secondary diagnoses documented for the Encounter. Date/Time Primary/Secondary Diagnosis Diagnosis Name Provider Source Jun 17, 2023 08:20 AM PRIMARY Encntr for exam of ears and hearing w oth abnormal findings KALEN CASTELLANOS [facility] Jun 17, 2023 08:20 AM SECONDARY Sensorineural hearing loss, bilateral KALEN CASTELLANOS [facility] Plan of Treatment: Future Appointments (+ [...] Date/Time Appointment Type Appointme nt Facility Name Jul 01, 2023 01:00 PM AMBULATORY [facility] Jul 02, 2023 02:00 PM AMBULATORY - REHAB MEDICIN [facility] Jul 08, 2023 01:00 PM AMBULATORY - PS[facility]CHIATRY [facility] Jul 16, 2023 01:00 PM AMBULATORY - REHAB MEDICIN [facility] Jul 22, 2023 11:00 AM AMBULATORY - PS[facility]CHIATRY [facility] Jul 24, 2023 08:45 AM AMBULATORY - SURGERY [facility] Jul 24, 2023 10:00 AM AMBULATORY - PSYCHIATRY [facility] Jul 29, 2023 11:00 AM AMBULATORY - PS[facility]CHIATRY [facility] Jul 31, 2023 10:00 AM AMBULATORY - PSYCHIATRY [facility] Aug 01, 2023 01:00 PM AMBULATORY - REHAB MEDICIN [facility] Aug 06, 2023 01:00 PM AMBULATORY - PS[facility]CHIATRY [facility] Aug 20, 2023 01:00 PM AMBULATORY - PS[facility]CHIATRY [facility] Aug 27, 2023 11:30 AM AMBULATORY - REHAB MEDICIN [facility] Sep 03, 2023 02:00 PM AMBULATORY - PS[facility]CHIATRY [facility] Sep 10, 2023 07:12 PM AMBULATORY - MEDICINE [facility] Sep 19, 2023 12:50 PM AMBULATORY - NONE [facility] Oct 01, 2023 01:00 PM AMBULATORY - PSYCHIATRY [facility] Oct 08, 2023 01:00 PM AMBULATORY - PS[facility]CHIATRY [facility] Oct 22, 2023 01:00 PM AMBULATORY - PS[facility]CHIATRY [facility] Nov 05, 2023 01:00 PM AMBULATORY - PS[facility]CHIATRY [facility] Encounter Notes: All associated encounter notes This section contains the clinical notes associated to the Encounter. Date/Time Encounter Note(s) Provider Source Jun 17, 2023 07:45 AM AUDIOLOGY NOTE: LOCAL TITLE: AUDIOLOGY CLINIC NOTE STANDARD TITLE: AUDIOLOGY NOTE DATE OF NOTE: JUN 17, 2023@07:45 ENTRY DATE: JUN 17, 2023@07:45:28 AUTHOR: GRETCHEN CASTELLANOS COSIGNER: URGENCY: STATUS: COMPLETED SUBJECT: HAE REASON FOR VISIT - AUDIOLOGY EVALUTION, 60 MINUTES Location of visit (Room Number): 2S-113 DIAGNOSIS: - Encounter for Examination of Ears and Hearing - Sensorineural Hearing Loss, Bilateral HISTORY: Concord was seen today for a hearing evaluation. 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 Hearing was last evaluated in April 2013 and seems to have worsened. 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 Friends, family, and co-workers has also noticed her hearing difficulties. She notes infrequent tinnitus. 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 Denied: - Aural fullness - Otalgia - Otorrhea - Vertigo/Dizziness/Imbalance - Otosurgery PROCEDURES: RESULTS AVAILABLE VIA AUDIOGRAM DISPLAY IN [employer] TOOLS MENU OR [employer] DATABASE OTOSCOPY: Ear canals free of excessive cerumen, tympanic membranes visible. COMPREHENSIVE HEARING EVALUATION: Pure Tone Audiometry, Speech Medication Nurse Threshold, & Word Recognition Testing Transducer: Insert earphones & bone oscillator Reliability: Good PURE TONE AUDIOMETRY: RIGHT EAR: Normal hearing acuity at 250-8000 Hz LEFT EAR: Normal hearing acuity at 250-8000 Hz SPEECH KARATE BLACK BELT THRESHOLD: Spondees RIGHT EAR: 15 dB HL LEFT EAR: 15 dB HL Speech Medication Nurse Thresholds are consistent with pure tone thresholds. WORD RECOGNITION: Recorded W-22 word lists RIGHT EAR: 96% Level: 50* dB LEFT EAR: 92% Level: 50* dB QUICKSIN: binaural Speech in Noise at 70 dB HL QuickSIN SNR Loss: 4.17 dB (individual test results: 9.5 dB, 1.5 dB, 1.5 dB) OTOACOUSTIC EMISSIONS (Distortion Product OAEs): >12 frequencies at 2-10 kHz Right Ear: Present at 2-5.7 kHz, reduced/absent at higher test frequencies Left Ear: Present at 2-5.7 kHz, reduced/absent at higher test frequencies TYMPANOMETRY: RIGHT EAR: Type A Pressure: Normal Compliance: Normal Volume: Normal LEFT EAR: Type A Pressure: Normal Compliance: Normal Volume: Normal ACOUSTIC REFLEXES (STIMULUS EAR): RIGHT: 500 1000 2000 4000 Hz IPSI: 100 90 85 95 CONTRA: NR 95 90 85 LEFT: 500 1000 2000 4000 Hz IPSI: 100 85 80 80 CONTRA: 100 90 90 90 Measurements in dB HL NR = No Response SUMMARY: RIGHT EAR: Normal hearing acuity at 250-8000 Hz with normal word discrimination abilities in quiet. Otoacoustic emissions are consistent with a high frequency region of reduced cochlear outer hair cell function. Normal middle ear function via tympanometry. LEFT EAR: Normal hearing acuity at 250-8000 Hz with normal word discrimination abilities in quiet. Otoacoustic emissions are consistent with a high frequency region of reduced cochlear outer hair cell function. Normal middle ear function via tympanometry. BILATERAL: Variable binaural word discrimination in the presence of noise, initially presenting with modereate difficulty and improving to normal performance. Acoustic reflexes are present across all four test conditions, consistent with audiometric findings. EDUCATION: - Concord counseled on results of today's hearing evaluation. - counseled on effective communication strategies. - counseled on hearing protection in noise. - advised she may benefit from mild gain amplification with speech in noise processing given her abnormal OAEs and self reported difficulties understanding speech. HEARING AID SELECTION: - The is eligible for [facility]-issued amplification and wishes to proceed. - counseled on realistic expectations associated with adjusting to hearing aids, use of the devices, VA procedures, and trial period. - Hearing aid styles and technologies were reviewed with consideration given to today's test results as well as the listening situations and lifestyle needs of the . - Hearing aids selected and ordered today: Make: Signia Model: Styletto 7AX RINA-R (Cosmic blue with tanesha gold) Acoustics: #2xS behavioral therapist 3.0, medium open domes Accessories: Streamline Cb WT PLAN: - will be scheduled for a 60-minute hearing aid fitting appointment. - Follow up if a change in hearing is noted or as medically indicated. PATIENT IS IN AGREEMENT WITH THIS PLAN. Dairy Farmer: Please HOLD aids in clinic until follow up appointment. /lilia/ GRETCHEN RESENDIZ LABELING ASSOCIATE Signed: 06/17/2023 09:[address] [facility]
--- OUTSIDE RECORDS SUMMARY | 2023-11-29 19:15 | XMS_ITS | Encounter Summary ---
Author Name [facility] Organization [facility] Address [address] [place] [address] Support Name Relationship Address Phone MARA CERON Next of Kin [address] [phone] ORTIZ ZAVALA Emergency Contact [address] [place], [place] [phone] SAMARIA ROD Emergency Contact [address] [place], [place] [phone] Selected Encounter This section includes the information on record at [place] for the Encounter. Date/Time Encounter Type Encounter Description Reason Provider Source Sep 10, 2023 07:12 PM EMERGENCY DEPT VISIT [facility] EMERGENCY DEPT ICD-10-CM R10.10 Upper abdominal pain, unspecified ALEX POWELL Lorie Encounter Template Text not used by [place] Assessments - Encounter Diagnoses This section includes the primary and secondary diagnoses documented for the Encounter. Date/Time Primary/Secondary Diagnosis Diagnosis Name Provider Source Sep 10, 2023 11:11 PM PRIMARY Upper abdominal pain, unspecified ALEX POWELL [facility] Plan of Treatment: Future Appointments (+ 6 months) and Future Tests (+/- 45 days) The Plan of Treatment section includes future care activities for the patient from all [place] [facility] This section includes future appointments and future orders which are active, pending or scheduled. Future Appointments This section includes appointments that were scheduled to occur 6 months from the date of the Encounter, up to a maximum of 20 appointments. The data comes from all [place] treatment facilities. Appointment Date/Time Appointment Type Appointme nt Facility Name Sep 19, 2023 12:50 PM AMBULATORY - NONE [place] [facility] Oct 01, 2023 01:00 PM AMBULATORY - PSYCHIATRY [facility] Oct 08, 2023 01:00 PM AMBULATORY - PSYCHIATRY [facility] Oct 22, 2023 01:00 PM AMBULATORY - PSYCHIATRY [facility] Nov 05, 2023 01:00 PM AMBULATORY - PS[facility]CHIATRY [facility] November 19, 2023 03:00 PM AMBULAT[facility] - [facility]IC[facility] November 28, 2023 01:00 PM AMBULATORY - PSYCHIATRY [facility] December 04, 2023 09:00 AM AMBULATORY - PSYCHIATRY [facility] December 05, 2023 01:20 PM AMBULATORY - REHAB MEDICIN E [facility] December 16, 2023 02:00 PM AMBULATORY [...] of theEncounter. The data comes from all [place] treatment facilities. Test Date/Time Test Type Test Details Facility Name Aug 06, 2023 04:31 PM Consult Order [facility] Cons Asset Protection Agent's Choice DEEPIKA NOEL Lab Results: +/- 30 days of the encounter This section includes the Chemistry and Hematology Lab Results on record with [place] for the patient. Radiology Reports and Pathology Reports are provided separately, in subsequent sections. Lab Results This section contains the Chemistry/Hematology Results that were resulted 30 days before or 30 daysafter the date of the Encounter. Date/Time Source Result Type Result - Unit Interpretation Reference Range Comment Sep 10, 2023 07:34 PM [facility] EXTRA MINT TUBE Specimen Type: PLASMA No comment entered. Ordering Provider: ALEX POWELL Report Released Date/Time: Sep 10, 2023 07:55 PM Reporting Lab: [facility] [id number] Performing Lab: [facility] [id number] EXTRA MINT TUBE RECEIVED Sep 10, 2023 07:34 PM [facility] LIPASE Specimen Type: PLASMA No comment entered. Ordering Provider: ALEX POWELL Report Released Date/Time: Sep 10, 2023 07:49 PM Reporting Lab: [facility] [id number] Performing Lab: [facility] [id number] LIPASE 68 H <60 Sep 10, 2023 07:34 PM [facility] COMPREHENSIVE METABOLIC PANEL+MG Specimen Type: PLASMA No comment entered. Ordering Provider: ALEX POWELL Report Released Date/Time: Sep 10, 2023 07:49 PM Reporting Lab: [facility] [phone] Performing Lab: [facility] [phone] CREATININE 1.0 0.5-1.0 UREA NITROGEN 13 7-20 GLUCOSE 94 70-100 SODIUM 136 136-145 POTASSIUM 3.8 3.5-5.1 CHLORIDE 104 98-107 CO2 21 L 22-29 CALCIUM 9.4 8.4-10.2 PROTEIN,TOTAL 7.2 6.0-8.3 ALBUMIN 4.3 3.5-5.2 BILIRUBIN, TOTAL 1.0 0.2-1.2 MAGNESIUM 2.0 1.6-2.6 ANION GAP 11 5-15 ALKALINE PHOSPHATASE 49 40-150 ALT/SGPT 23 <55 AST/SGOT 18 <34 .CREAT EGFR(CKD-EPI) 72 >60 Sep 10, 2023 07:34 PM [facility] CBC & DIFF Specimen Type: BLOOD Comment: Automated Differential Performed Ordering Provider: ALEX POWELL Report Released Date/Time: Sep 10, 2023 07:49 PM Reporting Lab: [facility] [id number] Performing Lab: [facility] [phone] WBC 7.45 4.0-11.0 RBC 4.80 4.0-5.4 HGB [...] 0.02 0-0.1 Sep 10, 2023 07:34 PM [facility] HCG,QUANTITATIVE Specimen Type: SERUM No comment entered. Ordering Provider: ALEX POWELL Report Released Date/Time: Sep 10, 2023 07:49 PM Reporting Lab: [facility] [phone] Performing Lab: [facility] [phone] HCG,QUANTITATIV E <2.42 <4.99 Sep 10, 2023 07:34 PM [facility] EXTRA BLUE TUBE Specimen Type: PLASMA No comment entered. Ordering Provider: ALEX POWELL Report Released Date/Time: Sep 10, 2023 07:55 PM Reporting Lab: [facility] [id number] Performing Lab: [facility] [phone] EXTRA BLUE TUBE RECEIVED Vital Signs: All taken on the encounter date This section contains inpatient and outpatient Vital Signs collected on the date of the Encounter. Date/Time Temperature Pulse Blood Pressure Respiratory Rate SP02 Pain Height Weight Body Mass Index Source Sep 10, 2023 07:17 PM 98.7 81 155/90 24 6 [facility] Encounter Notes: All associated encounter notes This section contains the clinical notes associated to the Encounter. Date/Time Encounter Note(s) Provider Source Sep 10, 2023 09:30 PM NURSING EMERGENCY DEPT NOTE: LOCAL TITLE: EMERGENCY DEPT NURSING NOTE STANDARD TITLE: NURSING EMERGENCY DEPT NOTE DATE OF NOTE: SEP 10, 2023@21:30 ENTRY DATE: SEP 11, 2023@06:34:28 AUTHOR: BAYRON BROWN COSIGNER: URGENCY: STATUS: COMPLETED Emergency Department Discharge Education Personal Protective Equipment (PPE): Patient was in mask on arrival, patient remained masked for entire visit, RN used PPE during every encounter with the patient, MD/PA/SOCIAL MEDIA SR STRATEGY MANAGER used PPE during every encounter with the patient The patient was given education on the following: chronic pancreatitis EDUCATION/TEACH BACK: [facility] discharge instructions have been reviewed with Patient, Family AND had an opportunity to ask questions, has verbalized understanding, have received a copy of the [facility] instructions, Performs skills effectively EDUCATIONAL LEVEL OF UNDERSTANDING: Patient, Family was ready and receptive to education. BARRIERS TO LEARNING: No barriers identified Accompanied by: Self, Family Mode of Transportation: Relative/friend EXIT ADDITIONAL EDUCATION GIVE: Discharged to: Home /es/ BAYRON BROWN RN Signed: 09/11/2023 06:35 BAYRON BROWN [facility] Sep 10, 2023 09:15 PM EMERGENCY DEPT EDU CATION NOTE: LOCAL TITLE: EMERGENCY DEPT DISCHARGE INSTRUCTIONS STANDARD TITLE: EMERGENCY DEPT EDUCATION NOTE DATE OF NOTE: SEP 10, 2023@21:15:15 ENTRY DATE: SEP 10, 2023@21:15:15 AUTHOR: ALEX POWELL COSIGNER: URGENCY: STATUS: COMPLETED DISCHARGE INSTRUCTIONS IMPORTANT: We examined and treated you today on an emergency basis only. This was not a substitute for, or an effort to provide, comprehensive medical care. In most cases, you must let your healthcare provider check you again. Tell your healthcare provider about any new or lasting problems. We cannot recognize and treat all injuries or illnesses in one Emergency Department visit. After you leave, you should follow the instructions below. You were treated today by Alex Powell MD. Special Information This Information Is About Your Follow Up Care We recommend that you follow up with your Primary Care Team to have an appointment within the next 1 - 2 weeks. Call to arrange this appointment. If you are not feeling better and improving as discussed or if you have any questions please contact your Primary Care Provider. Future Appointments Future Appointments List not available This Information Is About Your Illness and Diagnosis CHRONIC PANCREATITIS Chronic pancreatitis is a disease of the pancreas. The pancreas is a large gland that sits inside the upper abdomen, near the stomach and intestines. The pancreas makes chemicals (called enzymes) that help digest food and help keep the sugar level in the blood steady. In pancreatitis, these enzymes start to attack the pancreas itself. This causes irritation and inflammation of the pancreas. Chronic pancreatitis means that the pancreas has been irritated and inflamed many times. This causes permanent damage to the pancreas, and the pancreas is not able to work properly. What causes chronic pancreatitis? -alcohol abuse (the most common cause of chronic pancreatitis) -cystic fibrosis -high fat levels in the blood -certain drugs -gallbladder problems -sometimes there is no known cause (idiopathic pancreatitis) What are the signs and symptoms of chronic pancreatitis? -pain in the abdomen that is worse after eating -back pain -weight loss -high blood sugar (diabetes) -increased thirst -urinating often and in large amounts -diarrhea, with pale, greasy looking stools -nausea and vomiting How does the health care provider know I have chronic pancreatitis? -by examining you and talking with you about how you are feeling -by doing an ultrasound exam of your abdomen -by doing blood tests -by doing a CT scan of your abdomen -by doing an ERCP (endoscopic retrograde cholangiopancreatography) a test in which dye is placed into the tubes around the pancreas and then pictures are taken How will my chronic pancreatitis be treated? -You will be given pain medicine if needed. -You will be on a low fat diet. -You will need to avoid alcohol completely. -You may receive medicines to reduce the amount of acid made in your stomach. -You may need diabetes pills or insulin to keep your blood sugar controlled. -You may need to take pancreas enzymes in pill form to help your body digest your food. -If your pain is not controlled with medicine, you may need pancreas surgery to help relieve your pain. Please follow these instructions: -Do NOT drink alcohol. -Take any medications exactly as prescribed. -Keep follow-up appointments. -Eat a low fat diet. Ask your health care provider if you have questions about what it means to follow a low fat diet. -Eat small, frequent meals rather than a few large meals each day. -Avoid caffeine. Contact your health care provider as soon as possible if you have any of the following: -increasing pain that isn't helped by your pain medicine. -weight loss. -excessive thirst. -yellow skin or to the whites of your eyes. -increased diarrhea. -nausea or vomiting. -loose, frequent, pale or greasy looking stools. -increased amount of urine, or having to urinate frequently. -any questions or concerns. This Information Is About Your Diet FAT-RESTRICTED NUTRITION THERAPY ([employer]. Nutrition Care Manual. July 2013) Fat-restricted nutrition therapy can be helpful in people who have trouble digesting and absorbing fat. This type of nutrition therapy can help prevent uncomfortable side effects, such as diarrhea, cramping, gas, bloating, that can occur from eating high-fat foods. This nutrition therapy can also help you absorb more nutrients as well. General instructions for fat-restricted nutrition: -Eat small, frequent meals and snacks. -Choose a diet rich in fruits, vegetables, whole-grain, high-fiber foods, and fat-free and low fat dairy products. -Limit saturated fats (snell, sausage, fatty meats, chicken or turkey skin, whole milk, butter, cream) and trans fats (stick margarine, shortening, some fried foods, and packaged foods made with hydrogenated oils). -Keep the total fat intake between 25 and 35% of total calories. If you should consume 2,000 calories per day, your fat intake should be 50 to 75 grams per day. -Fats should be from fish, nuts, seeds, and vegetables most often. Use vegetable oils such as canola, safflower, sunflower or olive oil. -Limit restaurant and take-out food. These foods can be prepared with hidden fat. -All foods labeled fat-free or nonfat are allowed. Foods to consider: -fruits - fresh, frozen, canned, or dried fruit -vegetables - fresh, frozen, or canned vegetables without added fat or sodium -dairy - milk or buttermilk that is fat-free (skim) or low-fat (1%); fat-free or low-fat cheese, cottage cheese, or yogurt -grains - whole grain breads and cereals, including oats and barley; whole wheat or whole grain pasta; brown rice; low-fat crackers or pretzels -proteins - lean cuts of beef and pork; skinless poultry; fish; venison or bison; dried peas and beans; egg whites or egg substitutes; meat alternatives made with soy or textured vegetable protein; 99% fat-free deli or luncheon meats -beverages - nonfat milk, nonfat chocolate milk, fruit or vegetable juice, lemonade, tea, fruit punch, soda, diet soda, sport drinks -condiments - ketchup, fat-free salad dressing, soy sauce, homemade salsa, lemon juice, light, reduced-fat or fat free mayonnaise, fresh garlic, garlic powder, fresh or dried chili peppers, black pepper Foods to avoid: -fruits and vegetables - fried fruits and vegetables; fruits served with butter or cream; vegetables prepared with butter, cheese, or cream sauce -dairy - whole milk, 2% milk, whole-milk yogurt or ice cream, half & half, cream, cream cheese, sour cream, cheese -grains - high-fat bakery items such as doughnuts, biscuits, croissants, pastries, cakes, pies, and cookies; packaged snack foods made with partially hydrogenated oils, including chips, cheese puffs, snack mixes, regular crackers, butter-flavored popcorn -proteins - higher fat cuts of meat; sausage; snell; hot dogs; organ meats; deli meats such as corned beef, salami, and bologna; whole eggs and egg yolks; any fried meat or fish IMPORTANT MEDICATION INFORMATION -Your medication list includes any medications that were recently prescribed but not filled by the Pharmacy (PENDING Medicines). -Included are any known ACTIVE Medicines. Please review this list to make sure it is accurate, if this list does not match the current medications you are taking please follow-up with your Primary Care Team to have your Medication List reviewed. Medicines Medication List not available YOU ARE THE MOST IMPORTANT FACTOR IN YOUR RECOVERY. Follow the above instructions carefully. Take your medicines as prescribed. If you do not understand any of your medicines, please ask questions. If you have any outstanding tests from the emergency department, please contact your provider to review them in the next 3-5 days. If you have new symptoms, feel worse, or are not getting better as discussed, call to discuss your health questions and arrange for follow-up care, or return to the Emergency Room IF YOU ARE EXPERIENCING A MEDICAL EMERGENCY CALL 911 OR GO TO THE NEAREST EMERGENCY ROOM // ALEX POWELL Physician Signed: 09/10/2023 21:15 ALEX POWELL [facility] Sep 10, 2023 09:00 PM NURSING EMERGENCY DEPT NOTE: LOCAL TITLE: EMERGENCY DEPT NURSING NOTE STANDARD TITLE: NURSING EMERGENCY DEPT NOTE DATE OF NOTE: SEP 10, 2023@21:00 ENTRY DATE: SEP 11, 2023@06:30:40 AUTHOR: BAYRON BROWN COSIGNER: URGENCY: STATUS: COMPLETED Nursing Focused Assessment: CHIEF COMPLAINT: Patient arrived to ER with complaints of abdominal pain, nausea, vomiting, and diarrhea since yesterday. Patient reported that she has a history of pancreatitis and has home pain medications but they aren't helping. Patient is alert and oriented, ambulatory, and does not appear to be in any respiratory distress. 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 (</= 52 years): Date of last menstrual period Normal Comment: Length of period: REVIEW OF SYSTEM-FOCUSED ASSESSMENT Neurological: Alert Mentation Oriented to: Person, Place, Time, Location [place] Coma Scale: Date and Time Preformed: Aug@06:31 Best Motor Response: Obeys simple commands - 6 Best Verbal Response: Oriented - 5 Eye Opening: Spontaneous - 4 Total: 15 Respiratory: Quality of breath: Equal and unlabored chest rise and fall Gastrointestinal: Pain: Onset: 09/09/2023 Duration: constant Quality: sharp Location: epigastric, umbilicus Pain with palpation: Yes INTERVENTIONS: Oriented to room and bed controls Call light within reach of patient or family/friend Bed in low position and locked Family/friend at bedside // BAYRON BROWN RN Signed: 09/11/2023 06:34 BAYRON BROWN [facility] Sep 10, 2023 07:57 PM PHYSICIAN EMERGENC Y DEPT NOTE: LOCAL TITLE: EMERGENCY DEPT NOTE STANDARD TITLE: PHYSICIAN EMERGENCY DEPT NOTE DATE OF NOTE: SEP 10, 2023@19:57 ENTRY DATE: SEP 10, 2023@19:57:14 AUTHOR: ALEX POWELL EXP COSIGNER: URGENCY: STATUS: COMPLETED EMERGENCY DEPT NOTE Has ADDENDA Physician Emergency Department Note Aug@19:58 Chief Complaint: Abdominal pain, nausea History of Present Illness (HPI): 42-year-old woman with a 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 Patient states that over the last week she has noticed increased angelica colored stools which usually precedes a bout of pancreatitis for her. She states that her p.o. input over the last several days has been significantly reduced as she has felt continuously nauseous. Denies fevers or chills. No chest pain or shortness of breath. Pain is consistent with prior bouts of pancreatitis. In addition to the above, I have personally reviewed any medications, allergies, problem list, medical, surgical, and social history in the health record as of this visit. Review of Systems: A complete review of systems was performed and is otherwise negative. Physical Exam: T: 98.7 F [37.1 C] (09/10/2023 19:17) HR: 81 (09/10/2023 19:17) BP: 155/90 (09/10/2023 19:17) RR: 24 (09/10/2023 19:17) SaO2: 98% (07/02/2023 14:03) Constitutional: Uncomfortable appearing patient of stated age in no acute distress. HEENT: Moist mucous membranes, posterior oropharynx is clear or erythema or exudate Neck: Supple. No tenderness to palpation of cervical spine. Respiratory: Clear to auscultation bilaterally. Cardiovascular: RRR, strong peripheral pulses. Abdominal: Soft, bowel sounds present, diffuse tenderness to palpation across the epigastrium. MSK: No edema or calf tenderness. Neurological: Alert and oriented. No focal neurologic deficits. Skin: Normal turgor, no rashes appreciated. Psych: Clear speech. Normal affect. Denies SI/HI. ED course & Medical Decision Making: Differential diagnosis includes, but is not limited to: Gastritis s, pancreatitis, diverticultis, gastroenteritis or colitis, GERD, constipation, irritable bowel syndrome, intestinal ischemia, SBO, colon cancer, among others. Given patient's history, suspect pancreatitis secondary to chronic conditions. Will start with IV fluids, keep patient n.p.o. and provide her with IV pain medications while assessing lab work. If patient's pain and nausea can be controlled in this ER, she will likely be discharged home. /lilia/ ALEX POWELL Physician Signed: 09/10/2023 20:05 Receipt Acknowledged By: 09/12/2023 14:40 /lilia/ TALI MARCUM REGISTERED NURSE for [address] [place] 09/11/2023 07:57 /lilia/ EMIR GRACIA DNP,JUDGE,ARDMS 09/10/2023 ADDENDUM STATUS: COMPLETED Patient feeling significantly improved after IV fluids and pain medication. Will provide 1 more liter of fluid and p.o. challenge. Patient is comfortable with discharge following. Will follow up with primary care physician. Return precautions provided in discharge instructions and discussed directly with patient. /lilia/ ALEX POWELL Physician Signed: 09/10/2023 21:15 ALEX POWELL [facility] Sep 10, 2023 07:16 PM NURSING EMERGENCY DEPT TRIAGE NOTE: LOCAL TITLE: EMERGENCY DEPARTMENT NURSING TRIAGE NOTE STANDARD TITLE: NURSING EMERGENCY DEPT TRIAGE NOTE DATE OF NOTE: SEP 10, 2023@19:16 ENTRY DATE: SEP 10, 2023@19:16:52 AUTHOR: ZARIA SOLIS EXP COSIGNER: URGENCY: STATUS: COMPLETED Emergency Department/Urgent Care Center Triage Patient age:42 Sex: FEMALE On arrival patient was: AMBULATORY Patient phone number: Allergies: PFIZER COVID-19 VACCINE (EUA) (Mar 26, 2023) FENTANYL (Mar 26, 2023) INFLUENZA (Mar 26, 2023) MIRALAX (Mar 26, 2023) Subjective/Chief Complaint: Pt. report having epigastgric pain that radiates to her left shoulder, as well as nausea and vomiting. Pt. reports that this feels similar to previous pancreatitis. Objective: Pt. is ambulatory, wearing mask The patient is not a fall risk. Vital Signs * Blood Pressure: 140/81 (07/02/2023 14:03) Heart Rate: 89 (07/02/2023 14:03) Respirations: 16 (07/02/2023 14:03) Temperature: 98.7 F [37.1 C] (07/02/2023 14:03) Pain: 4 (07/02/2023 14:03) Weight: 214.8 lb [97.43 kg] (07/02/2023 14:03) O2 Sats: 98% (07/02/2023 14:03) Temperature 98.7 F (37.1 C) Pulse 81 Respirations 24 Blood Pressure 155/90 Pain scale recorded: 6 Pulse Oximetry 100 Room Air Emergency Severity Index (ABIGAIL) level Level 3 Current Medications: Active Outpatient Medications (including Supplies): Active Outpatient Medications Status 1) ALBUTEROL 90MCG (CFC-F) 200D ORAL INHL INHALE 1 PUFF ACTIVE BY INHALATION FOUR TIMES A DAY NEEDED FOR SHORTNESS OF BREATH 2) ATORVASTATIN CALCIUM 40MG TAB TAKE ONE TABLET BY ACTIVE MOUTH [...] ACTIVE TWICE A DAY FOR ALLERGIES 9) FISH OIL 1000MG (500MG DHA/EPA) CAP TAKE ONE CAPSULE ACTIVE BY MOUTH EVERY MORNING FOR HIGH TRIGLYCERIDES 10) IBUPROFEN 800MG TAB TAKE ONE TABLET [...] TWICE A DAY NEEDED FOR SEVERE ITCHING/DERMATITIS Active Non-VA Medications Status 1) Non-VA HYDROMORPHONE 2MG TAB 4MG MOUTH EVERY 6 HOURS ACTIVE NEEDED 2) Non-VA HYOSCYAMINE TAB,SUBLINGUAL UNDER THE TONGUE ACTIVE 3) Non-VA LORAZEPAM 0.5MG TAB 0.5MG MOUTH EVERY 8 HOURS ACTIVE NEEDED 16 Total Medications Current Problems: Cancer cervix screening status (SCT 5362Chronic idiopathic urticaria ([facility] [id number]) Family social history ([facility] [id number]) Generalized anxiety disorder ([facility] [id number]) Major depressive disorder ([facility]CT [id number] of post-traumatic stress disorder ([facility] [id number]) Hyperlipidemia ([facility] [id number]) Dysfunction of sphincter of Oddi ([facility] [id number]) Posttraumatic stress disorder ([facility] 86801Mt significant change since previous mammogram ([facility] [id number]) Identification of Seniors at Risk (ISAR):* Defer screen age 43 Suicide Screen: [place] Suicide Severity Rating Scale (C-SSRS) screener 1. [...] within the past 3 months? Priscila /lilia/ ZARIA SOLIS RN REGISTERED NURSE Signed: 09/10/2023 19:20 ZARIA SOLIS [facility]
--- OUTSIDE RECORDS SUMMARY | 2023-11-29 19:15 | XMS_ITS | Encounter Summary ---
Author Name Department of Vetera Affairs Organization Department of Vetera Affairs Address [address] [place] [address] Support Name Relationship Address Phone MARA CERON Next of Kin [address] [phone] ORTIZ ZAVALA Emergency Contact [address] [place], [place] [phone] SAMARIA ROD Emergency Contact [address] [place], [place] [phone] Selected Encounter This section includes the information on record at [place] for the Encounter. Date/Time Encounter Type Encounter Description Reason Pro vider Source Aug 12, 2023 09:00 AM Outpatient Encounter [facility] Encounter Template Text not used by [place] Plan of Treatment: Future Appointments (+ 6 months) and Future Tests (+/- 45 days) The Plan of Treatment section includes future care activities for the patient from all [place] treatmentfacilities. This section includes future appointments and future orders which are active, pending or scheduled. Future Appointments This section includes appointments that were scheduled to occur 6 months from the date of the Encounter, up to a maximum of 20 appointments. The data comes from all [place] treatment facilities. Appointment Date/Time Appointment Type Appointme nt Facility Name Aug 20, 2023 01:00 PM AMBULATORY - [facility]IATRY [facility] Aug 27, 2023 11:30 AM AMBULATORY - REHAB MEDICIN E [facility] Sep 03, 2023 02:00 PM AMBULATORY - [facility]IATRY [facility] Sep 10, 2023 07:12 PM AMBULATORY - MEDICINE [place] [facility] Sep 19, 2023 12:50 PM AMBULATORY - NONE [facility] Oct 01, 2023 01:00 PM AMBULATORY - PS[facility]CHIATRY [facility] Oct 08, 2023 01:00 PM AMBULATORY - PS[facility]CHIATRY [facility] Oct 22, 2023 01:00 PM AMBULATORY - PS[facility]CHIATRY [facility] Nov 05, 2023 01:00 PM AMBULATORY - PS[facility]CHIATRY [facility] November 19, 2023 03:00 PM AMBULATORY - MEDICINE [place] [facility] November 28, 2023 01:00 PM AMBULATORY - PSYCHIATRY [facility] December 04, 2023 09:00 AM AMBULATORY - PS[facility]CHIATRY [facility] December 05, 2023 01:20 PM AMBULATORY - REHAB MEDICIN E [facility] December 16, 2023 02:00 PM AMBULATORY [...] of theEncounter. The data comes from all [place] treatment facilities. Test Date/Time Test Type Test Details Facility Name Aug 06, 2023 04:31 PM Consult Order [facility] Cons Chief Accounting Officer's Choice DEEPIKA NOEL Lab Results: +/- 30 days of the encounter This section includes the Chemistry and Hematology Lab Results on record with [place] for the patient. Radiology Reports and Pathology Reports are provided separately, in subsequent sections. Lab Results This section contains the Chemistry/Hematology Results that were resulted 30 days before or 30 daysafter the date of the Encounter. Date/Time Source Result Type Result - Unit Interpretation Reference Range Comment Sep 10, 2023 07:34 PM [facility] EXTRA MINT TUBE Specimen Type: PLASMA No comment entered. Ordering Provider: WILMAR POWELL Report Released Date/Time: Sep 10, 2023 07:55 PM Reporting Lab: [facility] [id number] Performing Lab: [facility] [id number] EXTRA MINT TUBE RECEIVED Sep 10, 2023 07:34 PM [facility] LIPASE Specimen Type: PLASMA No comment entered. Ordering Provider: WILMAR POWELL Report Released Date/Time: Sep 10, 2023 07:49 PM Reporting Lab: [facility] [id number] Performing Lab: [facility] [id number] LIPASE 68 H <60 Sep 10, 2023 07:34 PM [facility] COMPREHENSIVE METABOLIC PANEL+MG Specimen Type: PLASMA No comment entered. Ordering Provider: WILMAR POWELL Report Released Date/Time: Sep 10, 2023 07:49 PM Reporting Lab: [facility] [id number] Performing Lab: [facility] [id number] CREATININE 1.0 0.5-1.0 UREA NITROGEN 13 7-20 GLUCOSE 94 70-100 SODIUM 136 136-145 POTASSIUM 3.8 3.5-5.1 CHLORIDE 104 98-107 CO2 21 L 22-29 CALCIUM 9.4 8.4-10.2 PROTEIN,TOTAL 7.2 6.0-8.3 ALBUMIN 4.3 3.5-5.2 BILIRUBIN, TOTAL 1.0 0.2-1.2 MAGNESIUM 2.0 1.6-2.6 ANION GAP 11 5-15 ALKALINE PHOSPHATASE 49 40-150 ALT/SGPT 23 <55 AST/SGOT 18 <34 .CREAT EGFR(CKD-EPI) 72 >60 Sep 10, 2023 07:34 PM [facility] CBC & DIFF Specimen Type: BLOOD Comment: Automated Differential Performed Ordering Provider: WILMAR POWELL Report Released Date/Time: Sep 10, 2023 07:49 PM Reporting Lab: [facility] [id number] Performing Lab: [facility] [address] WBC 7.45 4.0-11.0 RBC 4.80 4.0-5.4 HGB [...] 0.02 0-0.1 Sep 10, 2023 07:34 PM [facility] HCG,QUANTITATIVE Specimen Type: SERUM No comment entered. Ordering Provider: WILMAR POWELL Report Released Date/Time: Sep 10, 2023 07:49 PM Reporting Lab: [facility] [id number] Performing Lab: [facility] [id number] HCG,QUANTITATIV E <2.42 <4.99 Sep 10, 2023 07:34 PM [facility] EXTRA BLUE TUBE Specimen Type: PLASMA No comment entered. Ordering Provider: WILMAR POWELL Report Released Date/Time: Sep 10, 2023 07:55 PM Reporting Lab: [facility] [id number] Performing Lab: [facility] [id number] EXTRA BLUE TUBE RECEIVED
--- OUTSIDE RECORDS SUMMARY | 2023-11-29 19:15 | XMS_ITS | Encounter Summary ---
Author Name Department of Vetera Affairs Organization Department of Vetera Affairs Address [address] [place] [address] Support Name Relationship Address Phone MARA CERON Next of Kin [address] [phone] ORTIZ ZAVALA Emergency Contact [address] [place], [place] [phone] SAMARIA ROD Emergency Contact [address] [place], [place] [phone] Selected Encounter This section includes the information on record at ID for the Encounter. Date/Time Encounter Type Encounter Description Reason Pro vider Source Jul 31, 2023 10:00 AM Outpatient Encounter [facility] Encounter Template Text not used by ID Plan of Treatment: Future Appointments (+ 6 months) and Future Tests (+/- 45 days) The Plan of Treatment section includes future care activities for the patient from all ID treatmentfaselect specialty hospitalities. This section includes future appointments and future orders which are active, pending or scheduled. Future Appointments This section includes appointments that were scheduled to occur 6 months from the date of the Encounter, up to a maximum of 20 appointments. The data comes from all ID treatment facilities. Appointment Date/Time Appointment Type Appointme nt Facility Name Aug 01, 2023 01:00 PM AMBULATORY - REHAB MEDICIN [facility] Aug 06, 2023 01:00 PM AMBULATORY - PSYCHIATRY [facility] NOEL Aug 20, 2023 01:00 PM AMBULATORY - PSYCHIATRY WILI MONREAL Aug 27, 2023 11:30 AM AMBULATORY - REHAB MEDICIN [facility] Sep 03, 2023 02:00 PM AMBULATORY - PSYCHIATRY [facility] Sep 10, 2023 07:12 PM AMBULATORY - MEDICINE [facility] Sep 19, 2023 12:50 PM AMBULATORY - NONE [facility] Oct 01, 2023 01:00 PM AMBULATORY - PSYCHIATRY [facility] Oct 08, 2023 01:00 PM AMBULATORY - PS[facility]CHIATRY [facility] Oct 22, 2023 01:00 PM AMBULATORY - PS[facility]CHIATRY [facility] Nov 05, 2023 01:00 PM AMBULATORY - PS[facility]CHIATRY [facility] November 19, 2023 03:00 PM AMBULATORY - MEDICINE [facility] November 28, 2023 01:00 PM AMBULATORY - PSYCHIATRY [facility] December 04, 2023 09:00 AM AMBULATORY - PS[facility]CHIATRY [facility] December 05, 2023 01:20 PM AMBULATORY - REHAB [facility] December 16, 2023 02:00 PM AMBULATORY [...] Aug 06, 2023 04:31 PM [facility] Architect Manager's Choice DEEPIKA MONREAL Encounter Notes: All associated encounter notes This section contains the clinical notes associated to the Encounter. Date/Time Encounter Note(s) Provider Source Jul 31, 2023 11:00 AM NO SHOW NOTE: LOCAL TITLE: NO SHOW NOTE STANDARD TITLE: NO SHOW NOTE DATE OF NOTE: JUL 31, 2023@11:00 ENTRY DATE: JUL 31, 2023@11:00:07 AUTHOR: BRYAN MARTINEZ COSIGNER: URGENCY: STATUS: COMPLETED Patient did not appear for scheduled appointment. This is not known to this newspaper writer. Risk assessment taken from progress note from FRANCESCA Trevino dated 07/29/23: Risk factors: history of SI/suicide attempt, insomnia, relationship issues, race. Protective factors: responsibility to others, children in the home, hope for the future, desire to live, help seeking behaviors, positive therapeutic alliance. Clinician Judgment of Risk: Low acute, Intermediate chronic Plan Based on Clinician Judgment of Risk: Called at 1057am. Left v/m for requesting call back to provider to check in, provider will reach out 2 more times per n/s policy. Informed her of missed topics and HW from group. /lilia/ BRYAN MARTINEZ,PhD, STAFF PSYCHOLOGIST Signed: 08/05/2023 09:12 Receipt Acknowledged By: 08/05/2023 09:32 /lilia/ ARACELI ESPINOZA Advanced Mine Development Engineer, [facility] BRYAN MARTINEZ [facility]
--- OUTSIDE RECORDS SUMMARY | 2023-11-29 19:15 | XMS_ITS | Encounter Summary ---
Author Name Department of Vetera Affairs Organization Department of Vetera Affairs Address [address] [place] [address] Support Name Relationship Address Phone MARA CERON Next of Kin [address] [phone] ORTIZ ZAVALA Emergency Contact [address] [place], [place] [phone] SAMARIA ROD Emergency Contact [address] [place], [place] [phone] Selected Encounter This section includes the information on record at [place] for the Encounter. Date/Time Encounter Type Encounter Description Reason Provider Source Jul 24, 2023 08:45 AM CONFORMITY EVALUATION AUDIOLOGY ICD-10-CM Z46.1 Encounter for fitting and adjustment of hearing aid DAVID WALTON Lorie Encounter Template Text not used by [place] Assessments - Encounter Diagnoses This section includes the primary and secondary diagnoses documented for the Encounter. Date/Time Primary/Secondary Diagnosis Diagnosis Name Provider Source Jul 24, 2023 09:28 AM PRIMARY Encounter for fitting and adjustment of hearing aid DAVID WALTON [facility] Jul 24, 2023 09:28 AM SECONDARY Sensorineural hearing loss, bilateral DAVID WALTON [facility] Plan of Treatment: Future Appointments (+ 6 months) and Future Tests (+/- 45 days) The Plan of Treatment section includes future care activities for the patient from all [place] treatmentfacilities. This section includes future appointments and future orders which are active, pending or scheduled. Future Appointments This section includes appointments that were scheduled to occur 6 months from the date of the Encounter, up to a maximum of 20 appointments. The data comes from all [place] treatment facilities. Appointment Date/Time Appointment Type Appointme nt Facility Name Jul 29, 2023 11:00 AM AMBULATORY - PS[facility]IATRY [facility] Jul 31, 2023 10:00 AM [facility] Aug 01, 2023 01:00 PM AMBULATORY - REHAB MEDICIN E [facility] Aug 06, 2023 01:00 PM AMBULATORY - [facility]IATRY [facility] Aug 20, 2023 01:00 PM AMBULATORY - PS[facility]CHIATRY [facility] Aug 27, 2023 11:30 AM AMBULATORY - REHAB MEDICIN E [facility] Sep 03, 2023 02:00 PM AMBULATORY - PS[facility]CHIATRY [facility] Sep 10, 2023 07:12 PM AMBULATORY - MEDICINE [facility] Sep 19, 2023 12:50 PM AMBULATORY - NONE [facility] Oct 01, 2023 01:00 PM AMBULATORY - PS[facility]CHIATRY [facility] Oct 08, 2023 01:00 PM AMBULATORY - PSYCHIATRY [facility] Oct 22, 2023 01:00 PM AMBULATORY - PS[facility]CHIATRY [facility] Nov 05, 2023 01:00 PM AMBULATORY - PS[facility]CHIATRY [facility] November 19, 2023 03:00 PM AMBULATORY - MEDICINE [facility] November 28, 2023 01:00 PM AMBULATORY - PS[facility]CHIATRY [facility] December 04, 2023 09:00 AM AMBULATORY - PS[facility]CHIATRY [facility] December 05, 2023 01:20 PM AMBULATORY - REHAB MEDICIN E [facility] December 16, 2023 02:00 PM AMBULATORY [...] of theEncounter. The data comes from all [place] treatment facilities. Test Date/Time Test Type Test Details Facility Name Aug 06, 2023 04:31 PM Consult Order COUNT INCLUD[facility] Automatic Developer's Choice [place] [facility] Encounter Notes: All associated encounter notes This section contains the clinical notes associated to the Encounter. Date/Time Encounter Note(s) Provider Source Jul 24, 2023 07:06 AM AUDIOLOGY NOTE: LOCAL TITLE: AUDIOLOGY CLINIC NOTE STANDARD TITLE: AUDIOLOGY NOTE DATE OF NOTE: JUL 24, 2023@07:06 ENTRY DATE: JUL 23, 2023@10:32:37 AUTHOR: DAVID WALTON EXP COSIGNER: URGENCY: STATUS: COMPLETED SUBJECT: Fitting DIAGNOSIS: Encounter for Fitting and Adjustment of Hearing Aid Sensorineural hearing loss, bilateral REASON FOR VISIT: Therapeutic - hearing aid fitting, conformity evaluation (real-ear measures), orientation and counseling using a standard curriculum (30 min): was seen for Hearing Aid [place] Appointment OTOSCOPY: Both Ears: Free of excessive cerumen. Normal anatomy bilaterally HISTORY: [place] has never used hearing aids previously. HEARING AIDS (Right/Left) fit: 07/24/23 Make: Shop 9 Seven Model: Styletto 7AX RINA-R (Cosmic blue with tanesha gold) Serial numbers ([id number]) Acoustics: #2xS breaker hand 3.0, medium open domes Accessories: Streamline Cb WT: [id number] ACTION: Hearing aids are a good physical fit. Feedback test was completed and feedback real estate office manager was activated. Hearing aids were programmed to prescriptive targets, which were derived from the Veterans hearing loss. Real-ear measures (conformity evaluation) were completed (NAL-NL2). Gain and output were adjusted to ensure audibility and comfort. Loudness intolerance was measured using a 90 dB MPO tone sweep and the patient was able to tolerate the output of the hearing device(s). Veterans subjective impressions were considered while adjusting the hearing aids. Balance, comfort, and localization were verified. Indicator tones were demonstrated for [place]. Volume control enabled Accessories were paired to hearing aids and use was demonstrated in the office. Veterans cell phone was paired to the hearing aids and Lisa was reviewed in detail (volume control, program changes, streaming calls and music, etc.). STANDARD CURRICULUM OF COUNSELING (30 min): [place] was counseled using a standard curriculum regarding: -Full-time hearing aid use and acclimating to amplification -Realistic expectations for hearing aid use -Appropriate communication strategies -Battery insertion and removal/How to charge the hearing aids -Location and operation of all controls -Proper care and maintenance -Protecting hearing in high noise levels -Warning about battery ingestion -[facility] and Call Center contact information and services, including the trial period. -Tinnitus Counseling/Management/Talisha nd therapy with hearing aids alone, or incorporating sounds from the Relief tinnitus lisa. reported good sound quality and equal balance between ears after adjustments were made. [place] reported a comfortable fit in both ears. [place] demonstrated understanding of the new aids and was able to insert the hearing aids appropriately, as well as manipulate the volume control and battery door/charging unit. Prognosis for success is good, given the Veterans response to the hearing aids. Hearing aids were issued and batteries and supplies were mailed. was provided with a copy of [place] issuance form [id number]. PLAN: - Order placed for [facility] follow up. Nita is a first time user. /lilia/ NIMISHA RODAS STAFF MONOTYPE CASTER Signed: 07/24/2023 09:29 DAVID WALTON [facility]
--- OUTSIDE RECORDS SUMMARY | 2023-11-29 19:15 | XMS_ITS | Encounter Summary ---
Author Name Department of Vetera Affairs Organization Department of Vetera Affairs Address [address] [place] [address] Support Name Relationship Address Phone MARA CERON Next of Kin [address] [phone] ORTIZ ZAVALA Emergency Contact [address] [place], [place] [phone] SAMARIA ROD Emergency Contact [address] [place], [place] [phone] Selected Encounter This section includes the information on record at [place] for the Encounter. Date/Time Encounter Type Encounter Description Reason Provider Source Aug 27, 2023 11:30 AM ACUPUNCT W/O STIMUL 15 MIN PAIN CLINIC ICD-10-CM G89.29 Other chronic pain LUIS E ESCAMILLA Lorie Encounter Template Text not used by [place] Assessments - Encounter Diagnoses This section includes the primary and secondary diagnoses documented for the Encounter. Date/Time Primary/Secondary Diagnosis Diagnosis Name Provider Source Aug 27, 2023 11:49 AM PRIMARY Other chronic pain OSMIN ESCAMILLA RD [facility] Aug 27, 2023 11:49 AM SECONDARY Other chronic pancreatitis OSMIN ESCAMILLA RD A [facility] Plan of Treatment: Future Appointments (+ 6 months) and Future Tests (+/- 45 days) The Plan of Treatment section includes future care activities for the patient from all [place] treatmentfacilities. This section includes future appointments and future orders which are active, pending or scheduled. Future Appointments This section includes appointments that were scheduled to occur 6 months from the date of the Encounter, up to a maximum of 20 appointments. The data comes from all [place] treatment facilities. Appointment Date/Time Appointment Type Appointme nt Facility Name Sep 03, 2023 02:00 PM AMB[facility]ATORY [facility]RY [facility] Sep 10, 2023 07:12 PM [facility] Sep 19, 2023 12:50 PM AMBULATORY - NONE [place] [facility] Oct 01, 2023 01:00 PM AMBULATORY - PS[facility]IATRY [facility] Oct 08, 2023 01:00 PM AMBULATORY - PS[facility]IATRY [facility] Oct 22, 2023 01:00 PM AMBULATORY - PS[facility]IATRY [facility] Nov 05, 2023 01:00 PM AMBULATORY - PS[facility]CHIATRY [facility] November 19, 2023 03:00 PM AMBUL[place] - [place]IC[place] [facility] November 28, 2023 01:00 PM AM[facility]ATRY [facility] December 04, 2023 09:00 AM AM[facility]RY [facility] December 05, 2023 01:20 PM AMBULATORY - REHAB MEDICIN E [facility] December 16, 2023 02:00 PM AMBULATORY [...] of theEncounter. The data comes from all [place] treatment facilities. Test Date/Time Test Type Test Details Facility Name Aug 06, 2023 04:31 PM Consult [facility] Cons Embedded Systems Designer's Choice [facility] Lab Results: +/- 30 days of the encounter This section includes the Chemistry and Hematology Lab Results on record with [place] for the patient. Radiology Reports and Pathology Reports are provided separately, in subsequent sections. Lab Results This section contains the Chemistry/Hematology Results that were resulted 30 days before or 30 daysafter the date of the Encounter. Date/Time Source Result Type Result - Unit Interpretation Reference Range Comment Sep 10, 2023 07:34 PM [facility] EXTRA MINT TUBE Specimen Type: PLASMA No comment entered. Ordering Provider: WILMAR POWELL Report Released Date/Time: Sep 10, 2023 07:55 PM Reporting Lab: [facility] [id number] Performing Lab: [facility] [id number] EXTRA MINT TUBE RECEIVED Sep 10, 2023 07:34 PM [facility] LIPASE Specimen Type: PLASMA No comment entered. Ordering Provider: WILMAR POWELL Report Released Date/Time: Sep 10, 2023 07:49 PM Reporting Lab: [facility] [id number] Performing Lab: [facility] [id number] LIPASE 68 H <60 Sep 10, 2023 07:34 PM [facility] COMPREHENSIVE METABOLIC PANEL+MG Specimen Type: PLASMA No comment entered. Ordering Provider: WILMAR POWELL Report Released Date/Time: Sep 10, 2023 07:49 PM Reporting Lab: [facility] [id number] Performing Lab: [facility] [id number] CREATININE 1.0 0.5-1.0 UREA NITROGEN 13 7-20 GLUCOSE 94 70-100 SODIUM 136 136-145 POTASSIUM 3.8 3.5-5.1 CHLORIDE 104 98-107 CO2 21 L 22-29 CALCIUM 9.4 8.4-10.2 PROTEIN,TOTAL 7.2 6.0-8.3 ALBUMIN 4.3 3.5-5.2 BILIRUBIN, TOTAL 1.0 0.2-1.2 MAGNESIUM 2.0 1.6-2.6 ANION GAP 11 5-15 ALKALINE PHOSPHATASE 49 40-150 ALT/SGPT 23 <55 AST/SGOT 18 <34 .CREAT EGFR(CKD-EPI) 72 >60 Sep 10, 2023 07:34 PM [facility] HCG,QUANTITATIVE Specimen Type: SERUM No comment entered. Ordering Provider: WILMAR POWELL Report Released Date/Time: Sep 10, 2023 07:49 PM Reporting Lab: [facility] [id number] Performing Lab: [facility] [id number] HCG,QUANTITATIV E <2.42 <4.99 Sep 10, 2023 07:34 PM [facility] CBC & DIFF Specimen Type: BLOOD Comment: Automated Differential Performed Ordering Provider: WILMAR POWELL Report Released Date/Time: Sep 10, 2023 07:49 PM Reporting Lab: [facility] [id number] Performing Lab: [facility] [id number] WBC 7.45 4.0-11.0 RBC 4.80 4.0-5.4 HGB [...] 0.02 0-0.1 Sep 10, 2023 07:34 PM [facility] EXTRA BLUE TUBE Specimen Type: PLASMA No comment entered. Ordering Provider: WILMAR POWELL Report Released Date/Time: Sep 10, 2023 07:55 PM Reporting Lab: [facility] [phone] Performing Lab: [facility] [id number] EXTRA BLUE TUBE RECEIVED Encounter Notes: All associated encounter notes This section contains the clinical notes associated to the Encounter. Date/Time Encounter Note(s) Provider Source Aug 27, 2023 11:41 AM CHIROPRACTIC NOTE: LOCAL TITLE: PAIN CHIRO CLINIC NOTE STANDARD TITLE: CHIROPRACTIC NOTE DATE OF NOTE: AUG 27, 2023@11:41 ENTRY DATE: AUG 27, 2023@11:41:44 AUTHOR: WASHINGTON ESCAMILLA EXP COSIGNER: URGENCY: STATUS: COMPLETED Visit #2 2023 Referring provider: Delroy Villavicencio DO SUBJECTIVE: Quintin Schevan presents for a 1 month follow up appointment with the com writer to address their chronic abdominal pain. They were last seen for acupuncture treatment on August 01. At that appointment she estimated a 60- 70% overall improvement in her abdominal pain since engaging with treatment. Based on this the and com writer agreed to a 1 month follow up appointment to assess durable treatment response. Interval change: Their chronic abdominal pain remains improved overall although the last week her pain has started to return. She still estimates a 40% overall improvement in her abdominal pain since her last visit. OBJECTIVE: Acupuncture needle placement was not associate with any significant discomfort or pain. ASSESSMENT: Chronic abdominal pain PROCEDURE: ACUPUNCTURE: Clean needle technique used. All point locations were sanitized with alcohol. Writers hands were cleaned with 70% ethyl alcohol. Sterile needles were used. Total treatment time: 30 minutes Local abdominal points: Bilateral K19, SP13, SP16, CV6, CV12 with 1 J type purple #5 needles Distal points: Bilateral GB34, ST36, and LI4 with 1 J type purple #5 needles. Electrical Stimulation: None Total needles used: 14 Total needles removed: 14 Total needles disposed: 14 Response to treatment: No adverse events were reported or observed Treatment plan: The has no other follow-up acupuncture appointments. Today was a 1 month follow up. Based on the reporting a 70% improvement for 3 weeks after her prior appointment the and com writer agreed to a 3 week follow up acupuncture appointment. Patient Education of Treatment Plan: Patient indicates readiness to learn, verbalizes understanding, agreement, and satisfaction with the treatment plan. Denies further questions. /es/ WASHINGTON ESCAMILLA [place] Chiropractor Signed: 08/27/2023 11:49 WASHINGTON ESCAMILLA [facility]
--- OUTSIDE RECORDS SUMMARY | 2023-11-29 19:16 | XMS_ITS | Encounter Summary ---
Author Name [employer] of Vetera Affairs Organization [facility] of [employer] Affairs Address [address] [place] [address] Support Name Relationship Address Phone MARA CERON Next of Kin [address] [phone] ORTIZ ZAVALA Emergency Contact [address] [place], [place] [phone] SAMARIA ROD Emergency Contact [address] [facility], [place] [address] Selected Encounter This section includes the information on record at [place] for the Encounter. Date/Time Encounter Type Encounter Description Reason Provider Source Sep 11, 2023 06:18 PM Outpatient Encounter EVENT (HISTORICAL) TALI MARCUM Encounter Template Text not used by [place] Plan of Treatment: Future Appointments (+ 6 months) and Future Tests (+/- 45 days) The Plan of Treatment section includes future care activities for the patient from all [place] treatmentfacilities. This section includes future appointments and future orders which are active, pending or scheduled. Future Appointments This section includes appointments that were scheduled to occur 6 months from the date of the Encounter, up to a maximum of 20 appointments. The data comes from all [place] treatment facilities. Appointment Date/Time Appointment Type Appointme nt Facility Name Sep 19, 2023 12:50 PM AMBULATORY - NONE [facility] Oct 01, 2023 01:00 PM AMBULATORY - [facility]RY [facility] Oct 08, 2023 01:00 PM [facility] Oct 22, 2023 01:00 PM AMBULATORY [facility]RY [facility] Nov 05, 2023 01:00 PM AMBULATORY - [facility]IATRY [facility] November 19, 2023 03:00 PM AMBULATORY - MEDICINE [place] [facility] November 28, 2023 01:00 PM [facility] December 04, 2023 09:00 AM [facility] December 05, 2023 01:20 PM AMBULATORY - REHAB [facility]IC[facility] December 16, 2023 02:00 PM AM[facility]ORY - [facility] Active, Pending, and Scheduled Orders This section includes a listing of several types of active, pending, and scheduled orders, including clinic medications orders, diagnostic test orders, procedure orders and consult orders; where the start date of the order is 45 days before the date of the Encounter or 45 days after the date of theEncounter. The data comes from all [place] treatment facilities. Test Date/Time Test Type Test Details Facility Name Aug 06, 2023 04:31 PM Consult Order [facility] Cons Maintenance [facility] [place] [facility] Lab Results: +/- 30 days of the encounter This section includes the Chemistry and Hematology Lab Results on record with [place] for the patient. Radiology Reports and Pathology Reports are provided separately, in subsequent sections. Lab Results This section contains the Chemistry/Hematology Results that were resulted 30 days before or 30 daysafter the date of the Encounter. Date/Time Source Result Type Result - Unit Interpretation Reference Range Comment Sep 10, 2023 07:34 PM [facility] EXTRA MINT TUBE Specimen Type: PLASMA No comment entered. Ordering Provider: WILMAR POWELL Report Released Date/Time: Sep 10, 2023 07:55 PM Reporting Lab: [facility] [id number] Performing Lab: [facility] [id number] EXTRA MINT TUBE RECEIVED Sep 10, 2023 07:34 PM [facility] LIPASE Specimen Type: PLASMA No comment entered. Ordering Provider: WILMAR POWELL Report Released Date/Time: Sep 10, 2023 07:49 PM Reporting Lab: [facility] [id number] Performing Lab: [facility] [phone] LIPASE 68 H <60 Sep 10, 2023 07:34 PM [facility] COMPREHENSIVE METABOLIC PANEL+MG Specimen Type: PLASMA No comment entered. Ordering Provider: WILMAR POWELL Report Released Date/Time: Sep 10, 2023 07:49 PM Reporting Lab: [facility] [phone] Performing Lab: [facility] [phone] CREATININE 1.0 0.5-1.0 UREA NITROGEN 13 7-20 GLUCOSE 94 70-100 SODIUM 136 136-145 POTASSIUM 3.8 3.5-5.1 CHLORIDE 104 98-107 CO2 21 L 22-29 CALCIUM 9.4 8.4-10.2 PROTEIN,TOTAL 7.2 6.0-8.3 ALBUMIN 4.3 3.5-5.2 BILIRUBIN, TOTAL 1.0 0.2-1.2 MAGNESIUM 2.0 1.6-2.6 ANION GAP 11 5-15 ALKALINE PHOSPHATASE 49 40-150 ALT/SGPT 23 <55 AST/SGOT 18 <34 .CREAT EGFR(CKD-EPI) 72 >60 Sep 10, 2023 07:34 PM [facility] CBC & DIFF Specimen Type: BLOOD Comment: Automated Differential Performed Ordering Provider: WILMAR POWELL Report Released Date/Time: Sep 10, 2023 07:49 PM Reporting Lab: [facility] [phone] Performing Lab: [facility] [id number] WBC 7.45 4.0-11.0 RBC 4.80 4.0-5.4 HGB [...] 0.02 0-0.1 Sep 10, 2023 07:34 PM [facility] HCG,QUANTITATIVE Specimen Type: SERUM No comment entered. Ordering Provider: WILMAR POWELL Report Released Date/Time: Sep 10, 2023 07:49 PM Reporting Lab: [facility] [phone] Performing Lab: [facility] [phone] HCG,QUANTITATIV E <2.42 <4.99 Sep 10, 2023 07:34 PM [facility] EXTRA BLUE TUBE Specimen Type: PLASMA No comment entered. Ordering Provider: WILMAR POWELL Report Released Date/Time: Sep 10, 2023 07:55 PM Reporting Lab: [facility] [phone] Performing Lab: [facility] [phone] EXTRA BLUE TUBE RECEIVED Encounter Notes: All associated encounter notes This section contains the clinical notes associated to the Encounter. Date/Time Encounter Note(s) Provider Source Sep 11, 2023 06:18 PM PRIMARY CARE SAVO MESSAGING: LOCAL TITLE: PRIMARY CARE SECURE MESSAGING STANDARD TITLE: PRIMARY CARE SECURE MESSAGING DATE OF NOTE: SEP 11, 2023@18:18 ENTRY DATE: SEP 11, 2023@17:18:35 AUTHOR: TALI MARCUM EXP COSIGNER: URGENCY: STATUS: COMPLETED PRIMARY CARE SECURE MESSAGING Has ADDENDA ------Original Message ----- Sent: 09/11/2023 06:18 PM ET From: TALI MARCUM To: QUINTIN ZAVALA Subject: General:General Inquiry Brian Winn, I am the RN on your primary care team, just reaching out in follow up to your recent ER visit. It looks like you felt better by the time you discharged, and that you have the medications that you need. Is there anything primary care can do to assist you at this time? Please reply or let me know a good time to call you if you would rather talk over the phone. Thanks, YUMIKO Mendez /lilia/ TALI MARCUM REGISTERED NURSE Signed: 09/11/2023 17:18 09/12/2023 ADDENDUM STATUS: COMPLETED RN called and left a HIPAA compliant message with clinic number for call back. RN is calling to follow up on recent ED visit. /lilia/ TALI MARCUM REGISTERED NURSE Signed: 09/12/2023 14:41 TALI MARCUM [facility]
--- OUTSIDE RECORDS SUMMARY | 2023-11-29 19:16 | XMS_ITS | Encounter Summary ---
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 Date/Time Encounter Type Encounter Description Reason Provider Source Oct 01, 2023 01:00 PM PSYTX W PT 45 MINUTES [facility] ICD-10-CM F43.12 Post-traumatic stress disorder, chronic NIMA LOPEZ [facility] Encounter Template Text not used by [place] Assessments - Encounter Diagnoses This section includes the primary and secondary diagnoses documented for the Encounter. Date/Time Primary/Secondary Diagnosis Diagnosis Name Provider Source Oct 01, 2023 02:37 PM PRIMARY Post-traumatic stress disorder, SCOTT Napoles [facility] Plan of Treatment: Future Appointments (+ 6 months) and Future Tests (+/- 45 days) The Plan of Treatment section includes future care activities for the patient from all [place] treatmentfacilities. This section includes future appointments and future orders which are active, pending or scheduled. Future Appointments This section includes appointments that were scheduled to occur 6 months from the date of the Encounter, up to a maximum of 20 appointments. The data comes from all [place] treatment facilities. Appointment Date/Time Appointment Type Appointme nt Facility Name Oct 08, 2023 01:00 PM AM[facility]ORY [facility] Oct 22, 2023 01:00 PM AM[facility] - [facility] Nov 05, 2023 01:00 PM [facility] November 19, 2023 03:00 PM [facility], 2023 01:00 PM [facility] December 04, 2023 09:00 AM AMBULATORY - [facility] December 05, 2023 01:20 PM AMBULATORY - RE[facility]AB [facility]ICIN [facility] December 16, 2023 02:00 PM AMBULATORY - [facility]RY [facility] Lab Results: +/- 30 days of the encounter This section includes the Chemistry and Hematology Lab Results on record with [place] for the patient. Radiology Reports and Pathology Reports are provided separately, in subsequent sections. Lab Results This section contains the Chemistry/Hematology Results that were resulted 30 days before or 30 daysafter the date of the Encounter. Date/Time Source Result Type Result - Unit Interpretation Reference Range Comment Sep 10, 2023 07:[address] [facility] EXTRA MINT TUBE Specimen Type: PLASMA No comment entered. Ordering Provider: WILMAR POWELL Report Released Date/Time: Sep 10, 2023 07:55 PM Reporting Lab: [facility] [phone] Performing Lab: [facility] [id number] EXTRA MINT TUBE RECEIVED Sep 10, 2023 07:[address] [facility] LIPASE Specimen Type: PLASMA No comment entered. Ordering Provider: WILMAR POWELL Report Released Date/Time: Sep 10, 2023 07:49 PM Reporting Lab: [facility] [phone] Performing Lab: [facility] [phone] LIPASE 68 H <60 Sep 10, 2023 07:[address] [facility] COMPREHENSIVE METABOLIC PANEL+MG Specimen Type: PLASMA No comment entered. Ordering Provider: WILMAR POWELL Report Released Date/Time: Sep 10, 2023 07:49 PM Reporting Lab: [facility] [phone] Performing Lab: [facility] [phone] CREATININE 1.0 0.5-1.0 UREA NITROGEN 13 7-20 GLUCOSE 94 70-100 SODIUM 136 136-145 POTASSIUM 3.8 3.5-5.1 CHLORIDE 104 98-107 CO2 21 L 22-29 CALCIUM 9.4 8.4-10.2 PROTEIN,TOTAL 7.2 6.0-8.3 ALBUMIN 4.3 3.5-5.2 BILIRUBIN, TOTAL 1.0 0.2-1.2 MAGNESIUM 2.0 1.6-2.6 ANION GAP 11 5-15 ALKALINE PHOSPHATASE 49 40-150 ALT/SGPT 23 <55 AST/SGOT 18 <34 .CREAT EGFR(CKD-EPI) 72 >60 Sep 10, 2023 07:[address] [facility] HCG,QUANTITATIVE Specimen Type: SERUM No comment entered. Ordering Provider: WILMAR POWELL Report Released Date/Time: Sep 10, 2023 07:49 PM Reporting Lab: [facility] [phone] Performing Lab: [facility] [phone] HCG,QUANTITATIV E <2.42 <4.99 Sep 10, 2023 07:[address] [facility] EXTRA BLUE TUBE Specimen Type: PLASMA No comment entered. Ordering Provider: WILMAR POWELL Report Released Date/Time: Sep 10, 2023 07:55 PM Reporting Lab: [facility] [phone] Performing Lab: [facility] [phone] EXTRA BLUE TUBE RECEIVED Sep 10, 2023 07:[address] [facility] CBC & DIFF Specimen Type: BLOOD Comment: Automated Differential Performed Ordering Provider: WILMAR POWELL Report Released Date/Time: Sep 10, 2023 07:49 PM Reporting Lab: [facility] [phone] Performing Lab: [facility] [address] WBC 7.45 4.0-11.0 RBC 4.80 4.0-5.4 HGB [...] RO) 0.3 ABS IMMATURE GRAN 0.02 0-0.1 Social History: Smoking Status (Most current) and Tobacco Use (All prior to encounter date) This section includes the most current, and the historical, smoking and tobacco- related health factors from the [place] facility where the Encounter took place. Current Smoking Status This section includes the most current smoking, or tobacco-related health factor, from the [place] facility where the Encounter took place. Date/Time Current Smoking Status Comment Facil ity Mar 27, 2023 09:00 AM PA-TOBACCO FORMER USER [facility] Tobacco Use History This section includes a history of the smoking, or tobacco-related health factors, that were collected on or before the date of the Encounter. The data comes from the [place] facility where the Encounter took place. Date/Time Smoking Status/Tobacco Use Comment F acility Mar 27, 2023 09:00 AM PA-TOBACCO QUIT 5 TO < 15 YRS [facility] Encounter Notes: All associated encounter notes This section contains the clinical notes associated to the Encounter. Date/Time Encounter Note(s) Provider Source Oct 01, 2023 01:00 PM MENTAL HEALTH NOTE : LOCAL TITLE: MH PROGRESS NOTE STANDARD TITLE: MENTAL HEALTH NOTE DATE OF NOTE: OCT 01, 2023@13:00 ENTRY DATE: OCT 01, 2023@14:37:15 AUTHOR: MILI LOPEZ EXP COSIGNER: URGENCY: STATUS: COMPLETED OUTPATIENT MENTAL HEALTH PROGRESS NOTE Clinic: [facility] Date: 10/01/2023 Length of Session: 50 minutes Method of Interface: In-person Session #17 Author: MERNA Trevino, WIRE COATER Subjective: Met with Quintin Zavala for individual therapy session. She reported that she was feeling very overwhelmed with the many events that have taken place since our last meeting. She stated that while she was not in a place of crisis, she was really struggling. denied suicidal ideation but endorsed strong overwhelm at times. She shared that she has had some experiences that have helped her to realize that she has not been living her life for herself and that being to her is no longer a viable option. She stated that she has come to embrace herself and her sexuality and neither aligns with staying with her . Provided supportive space for her to share and process with active listening and empathy. We explored her perspective on the recent events to help her identify what her next steps need to be. She acknowledged the anticipated losses that will come with the change and we discussed reframing some things around anticipating something that is possible versus likely. Strategized the conversation she intends to have with her to help her identify what she needs to say in a way that allows her to advocate and protect herself. Objective: Appearance: Well-groomed, appropriate eye contact Speech: Regular rate/rhythm/volume Motor: Normal Spontaneous movement Mood: Anxious, sad- balanced throughout session Affect: Full range, Appropriate, consistent with mood, tearful Thought Content: No Suicidal Ideation/No Homicidal Ideation No Delusions No Hallucinations Thought Process: Linear/Logical/Goal Oriented Judgement: Good Insight: Good Impulse Control: Good Oriented to Person/Place/Time/Reason for Appointment Assessment: [place] was engaged and receptive throughout. She displayed good insight and judgement. Risk factors include history of SI/suicide attempt, insomnia, relationship issues, race. Protective factors include responsibility to others, children in the home, hope for the future, desire to live, help seeking behaviors, positive therapeutic alliance. Current risk assessment: Low acute, Intermediate chronic Diagnostic Evaluation: PTSD, chronic Plan: RTC in one week /es/ TROY Grace Learning And Development Analyst Signed: 10/01/2023 14:37 MILI LOPEZ [facility]
--- OUTSIDE RECORDS SUMMARY | 2023-11-29 19:16 | XMS_ITS | Encounter Summary ---
Author Name [facility] Organization [facility] Address [address] [place] [address] Support Name Relationship Address Phone MARA CERON Next of Kin [address] [id number] ORTIZ ZAVALA Emergency Contact [address] [place], [place] [phone] SAMARIA ROD Emergency Contact [address] [place], [place] [phone] Selected Encounter This section includes the information on record at OR for the Encounter. Date/Time Encounter Type Encounter Description Reason Provider Source Nov 03, 2023 02:09 PM Outpatient Encounter TELEPHONE TRIAGE GRETCHEN TALAVERA Encounter Template Text not used by OR Plan of Treatment: Future Appointments (+ 6 months) and Future Tests (+/- 45 days) The Plan of Treatment section includes future care activities for the patient from all OR treatmentfacilities. This section includes future appointments and future orders which are active, pending or scheduled. Future Appointments This section includes appointments that were scheduled to occur 6 months from the date of the Encounter, up to a maximum of 20 appointments. The data comes from all OR treatment facilities. Appointment Date/Time Appointment Type Appointme nt Facility Name Nov 05, 2023 01:00 PM AMBULATORY - [facility]ATRY [facility] November 19, 2023 03:00 PM AMBULATORY - MEDICINE [facility] November 28, 2023 01:00 PM AMBULATORY - [facility]CHIATRY [facility] December 04, 2023 09:00 AM AMBULATORY - [facility]CHIATRY [facility] December 05, 2023 01:20 PM AMBULATORY - REHAB MEDIC[facility] December 16, 2023 02:00 PM AMBULATORY - PS[facility]CHIATRY [facility] Active, Pending, and Scheduled Orders This section includes a listing of several types of active, pending, and scheduled orders, including clinic medications orders, diagnostic test orders, procedure orders and consult orders; where the start date of the order is 45 days before the date of the Encounter or 45 days after the date of theEncounter. The data comes from all [facility]. Test Date/Time Test Type Test Details Facility Name November 19, 2023 12:00 AM Laboratory - Chemi stry Order ELASTASE-1,PANC STL STOOL FECES SP ONCE [facility] November 19, 2023 12:00 AM Laboratory - Chemi stry Order TTG AB,IGA SERUM SP ONCE [facility] November 19, 2023 12:00 AM Laboratory - Chemi stry Order IGA PLASMA SP ONCE [facility] November 19, 2023 12:00 AM Laboratory - Microbiology Order OVA & PARASITES FECAL FECES SP ONCE [facility] November 19, 2023 12:00 AM Laboratory - Chemi stry Order ENTERIC PATHOGEN PCR PANEL STOOL FECES SP ONCE [facility] Encounter Notes: All associated encounter notes This section contains the clinical notes associated to the Encounter. Date/Time Encounter Note(s) Provider Source Nov 03, 2023 03:22 PM ADDENDUM: LOCAL TITLE: Addendum STANDARD TITLE: ADDENDUM DATE OF NOTE: NOV 03, 2023@15:22:13 ENTRY DATE: NOV 03, 2023@15:22:14 AUTHOR: TALI MARCUM EXP COSIGNER: URGENCY: STATUS: COMPLETED to pain intervention clinic to consider vet's request for another pain injection for abdominal pain. /lilia/ TALI MARCUM REGISTERED NURSE Signed: 11/03/2023 15:22 Receipt Acknowledged By: 11/06/2023 12:24 /lilia/ Norma Carpio, RN, BSN Residential Housekeeper Nurse [employer] PM&R/Neurology Clinics --- Original Document --- 11/03/23 CCC: CLINICAL TRIAGE: Patient Demographics Patient Name: QUINTIN MAJOR LUCAS Patient [address] [address] [place], [place] [address] [address] Patient Primary Phone: [phone] Patient : 1980 Patient Age: 42 Caller/Recipient Relation to Patient: Self Emergency Contact: ORTIZ LUCAS Triage Summary Conducted triage/discussed symptoms Pain Score: 4 Utilized the Triage Tool: Yes Chief Complaint: Abdominal Pain System WHEN: Within 3 Days Nurse's Recommendation / WHEN: Within 3 Days System WHERE: Clinic Nurse's Recommendation / WHERE: [facility] Patient Disposition Patient/Caregiver agrees to plan of care: Yes Patient WHERE: Clinic/[facility] Patient WHEN: Within 3 days Nursing Plan and Disposition Other course(s) of action Generated msg to PACT/Provider Provided guidance for worsening symptoms: *Caller/Patient* advised to call facilities OR Clinical Contact Center or seek immediate medical attention for new or worsening symptoms Alternative courses of action: also transferred Gila to pain clinic to schedule appointment Nurse Summary Nurse Summary: PATIENT CONCERN/DURATION/ONSET: Ursula called and reports upper abdominal pain , also has chronic pain, but worsening the past 5-6 weeks. reports she has this baseline abdominal pain as well and this is similar to her chronic pain in the past. Gila reports she has had an injection in May for this and has helped and would like to be set up for another injection as her last injection was cancelled by the clinic and needing to be rescheduled. reports she does have some nausea at times, and 1-2 loose stools per day x 8-9 weeks but also has a history of loose stools. reports she does not feel this is an acute pancreatitis episode , is similar to her past chronic pain. Pain: ( -10/28) Ursula denies fever/chills, severe abdominal pain, or vomiting at time of call. WHAT HAS PATIENT TRIED TO TREAT THE SYMPTOMS: Gila reports she has had injections in the past for chronic abdominal pain and has helped. Gila reports she has dilaudid as prescription at home if she needs, but has not needed to take this, does take anti nausea medication and this does help. HISTORY/PREVIOUS TREATMENT: ursula reports she has chronic abdominal pain, chronic pancreatitis, chronic diarrhea. follow with GI and has f/u set up in november, has seen pain clinic at [facility]. see consult 05/26/24. ursula reprots last injection was 05/27/23. WHAT IS PATIENT GOAL FOR THE CALL: recommendations for abdominal pain, if can be set up with pain clinic for follow up appointment for injection, as her last appt was cancelled by the clinic due to needing to be rescheduled on a different day. Was Care Now considered (TELE or VVC)?No, recommend pact team interaction HEDDLER DISPOSITION: This RN recommends assigned care team interaction greater than 24 hours secondary to reported positive s/s abdominal pain, intermittent nausea, history with similar pain . This RN will forward to PACT for further management of ursula's concerns. Home care advice and warning signs provided (see Education Section). Ursula agrees with RN recommendation, and will wait for assigned care team interaction. This RN also offered to transfer to pain team at the [facility] to set up next appointment per request. This RN transferred to clinic to assist with scheduling Best contact for ursula is [phone] (verified) This note was created by a [address] technical specialist.Please do not alert this nurse by adding as a signer for future communications.Alerts are not monitored by this user, please reach out to [facility] instead if indicated. * Clinical Contact Center Codes Clinic/Location: [address] PHONE CCC RN TXCC Triage Complete Triage Date: 11/03/2023 12:48 PM Triage Note: Phone Triage 03 Nov 2023 18:41:53 +0000 UTC Demographics 42 y/o Female Results CC: Abdominal Pain Software suggested: Within 3 Days Software suggested follow-up location: Clinic, consider virtual care Values and Measures Duration of CC: 6 Weeks Positive Responses HPI: abdominal pain, duration longer than 6 hours HPI: abdominal pain, localized to upper abdomen HPI: diarrhea VS: BP not taken VS: pulse not taken VS: temperature not taken Negative Responses Denies: HPI: abdominal pain, moderate to severe Denies: HPI: abdominal pain, severe Denies: HPI: abdominal pain, worsening Denies: HPI: brown urine Denies: HPI: chest pain Denies: HPI: dermal icterus Denies: HPI: diaphoresis, with abdominal pain Denies: HPI: diarrhea, more than 8 episodes within past 12 hours Denies: HPI: diarrhea, watery stool, more than 5 episodes within past 24 hours Denies: HPI: diarrhea, watery stool, more than 8 episodes within past 2 days Denies: HPI: dyspnea, with abdominal pain Denies: HPI: dysuria Denies: HPI: flank or back pain Denies: HPI: generalized pruritus Denies: HPI: hematochezia Denies: HPI: hematuria Denies: HPI: increased urinary frequency Denies: HPI: lightheadedness and abdominal pain, duration longer than 5 minutes Denies: HPI: melena Denies: HPI: neck or jaw pain with abdominal pain Denies: HPI: oliguria Denies: HPI: palpitations, with abdominal pain Denies: HPI: premenopausal female Denies: HPI: scleral icterus Denies: HPI: syncope, with abdominal pain Denies: HPI: urinary urgency, constant Denies: HPI: vaginal discharge, abnormal Denies: HPI: vomiting Denies: HPI: weakness, unable to stand or get out of bed Denies: HPI: weakness, with abdominal pain, duration longer than 5 minutes Denies: MEDS: antibiotic Denies: PMH: abdominal aortic aneurysm Denies: PMH: angina Denies: PMH: diabetes Denies: PMH: heart attack Denies: PMH: pelvic infection or STD in the past Denies: PMH: ulcerative colitis Denies: PMH: UTI Denies: PSH: abdominal surgery Denies: PSH: hysterectomy Gila Education Verbal Education Provided for: Abdominal Pain Home Care Education Log Home care for abdominal pain includes: Get plenty of rest. drink plenty of fluids Avoid spicy foods and caffeine. They can worsen nausea and diarrhea. Avoid alcohol, it can irritate the stomach. may apply heat to the abdomen: Heating pad may help seek emergent care for abdominal pain and you develop any of the following: Severe abdominal pain Fever/chills Repeated, uncontrolled vomiting Vomiting blood Blood in the stool shortness of breath weakness chest pain /es/ GRETCHEN TALAVERA RN V23 [facility] Signed: 11/03/2023 14:09 TALI MARCUM [facility] Nov 03, 2023 02:09 PM RN PROGRESS NOTE: LOCAL TITLE: CCC: CLINICAL TRIAGE STANDARD TITLE: RN PROGRESS NOTE DATE OF NOTE: NOV 03, 2023@14:09:11 ENTRY DATE: NOV 03, 2023@14:09:11 AUTHOR: GRETCHEN TALAVERA COSIGNER: URGENCY: STATUS: COMPLETED CCC: CLINICAL TRIAGE Has ADDENDA Patient Demographics Patient Name: QUINTIN MAJOR LUCAS Patient Primary [address]: [address] [place] [address] Patient Primary Phone: [phone] Patient : 1980 Patient Age: 42 Caller/Recipient Relation to Patient: Self Emergency Contact: ORTIZ ZAVALA Triage Summary Conducted triage/discussed symptoms Pain Score: 4 Utilized the Triage Tool: Yes Chief Complaint: Abdominal Pain System WHEN: Within 3 Days Nurse's Recommendation / WHEN: Within 3 Days System WHERE: Clinic Nurse's Recommendation / WHERE: [facility] Patient Disposition Patient/Caregiver agrees to plan of care: Yes Patient WHERE: [facility] Patient WHEN: Within 3 days Nursing Plan and Disposition Other course(s) of action Generated msg to PACT/Provider Provided guidance for worsening symptoms: *Caller/Patient* advised to call facilities OR Clinical Contact Center or seek immediate medical attention for new or worsening symptoms Alternative courses of action: also transferred Gila to pain clinic to schedule appointment Nurse Summary Nurse Summary: PATIENT CONCERN/DURATION/ONSET: called and reports upper abdominal pain , also has chronic pain, but worsening the past 5-6 weeks. Gila reports she has this baseline abdominal pain as well and this is similar to her chronic pain in the past. Ursula reports she has had an injection in May for this and has helped and would like to be set up for another injection as her last injection was cancelled by the clinic and needing to be rescheduled. ursula reports she does have some nausea at times, and 1-2 loose stools per day x 8-9 weeks but also has a history of loose stools. Ursula reports she does not feel this is an acute pancreatitis episode , is similar to her past chronic pain. Pain: ( -10/28) Ursula denies fever/chills, severe abdominal pain, or vomiting at time of call. WHAT HAS PATIENT TRIED TO TREAT THE SYMPTOMS: Ursula reports she has had injections in the past for chronic abdominal pain and has helped. Ursula reports she has dilaudid as prescription at home if she needs, but has not needed to take this, does take anti nausea medication and this does help. HISTORY/PREVIOUS TREATMENT: ursula reports she has chronic abdominal pain, chronic pancreatitis, chronic diarrhea. follow with GI and has f/u set up in november, has seen pain clinic at [facility]. see consult 05/26/24. ursula reprots last injection was 05/27/23. WHAT IS PATIENT GOAL FOR THE CALL: recommendations for abdominal pain, if can be set up with pain clinic for follow up appointment for injection, as her last appt was cancelled by the clinic due to needing to be rescheduled on a different day. Was Care Now considered (TELE or VVC)?No, recommend pact team interaction HEDDLER DISPOSITION: This RN recommends assigned care team interaction greater than 24 hours secondary to reported positive s/s abdominal pain, intermittent nausea, history with similar pain . This RN will forward to PACT for further management of ursula's concerns. Home care advice and warning signs provided (see Education Section). Ursula agrees with RN recommendation, and will wait for assigned care team interaction. This RN also offered to transfer ursula to pain team at the [facility] to set up next appointment per request. This RN transferred Ursula to clinic to assist with scheduling Best contact for ursula is [phone] (verified) This note was created by a [facility] [employer] [facility] technical specialist.Please do not alert this nurse by adding as a signer for future communications.Alerts are not monitored by this user, please reach out to [facility] instead if indicated. * Clinical Contact Center Codes Clinic/Location: [facility] PHONE CCC RN TXCC Triage Complete Triage Date: 11/03/2023 12:48 PM Triage Note: Phone Triage 03 Nov 2023 18:41:53 +0000 [place] Demographics 42 y/o Female Results CC: Abdominal Pain Software suggested: Within 3 Days Software suggested follow-up location: Clinic, consider virtual care Values and Measures Duration of CC: 6 Weeks Positive Responses HPI: abdominal pain, duration longer than 6 hours HPI: abdominal pain, localized to upper abdomen HPI: diarrhea VS: BP not taken VS: pulse not taken VS: temperature not taken Negative Responses Denies: HPI: abdominal pain, moderate to severe Denies: HPI: abdominal pain, severe Denies: HPI: abdominal pain, worsening Denies: HPI: brown urine Denies: HPI: chest pain Denies: HPI: dermal icterus Denies: HPI: diaphoresis, with abdominal pain Denies: HPI: diarrhea, more than 8 episodes within past 12 hours Denies: HPI: diarrhea, watery stool, more than 5 episodes within past 24 hours Denies: HPI: diarrhea, watery stool, more than 8 episodes within past 2 days Denies: HPI: dyspnea, with abdominal pain Denies: HPI: dysuria Denies: HPI: flank or back pain Denies: HPI: generalized pruritus Denies: HPI: hematochezia Denies: HPI: hematuria Denies: HPI: increased urinary frequency Denies: HPI: lightheadedness and abdominal pain, duration longer than 5 minutes Denies: HPI: melena Denies: HPI: neck or jaw pain with abdominal pain Denies: HPI: oliguria Denies: HPI: palpitations, with abdominal pain Denies: HPI: premenopausal female Denies: HPI: scleral icterus Denies: HPI: syncope, with abdominal pain Denies: HPI: urinary urgency, constant Denies: HPI: vaginal discharge, abnormal Denies: HPI: vomiting Denies: HPI: weakness, unable to stand or get out of bed Denies: HPI: weakness, with abdominal pain, duration longer than 5 minutes Denies: MEDS: antibiotic Denies: PMH: abdominal aortic aneurysm Denies: PMH: angina Denies: PMH: diabetes Denies: PMH: heart attack Denies: PMH: pelvic infection or STD in the past Denies: PMH: ulcerative colitis Denies: PMH: UTI Denies: PSH: abdominal surgery Denies: PSH: hysterectomy Education Verbal Education Provided for: Abdominal Pain Home Care Education Log Home care for abdominal pain includes: Get plenty of rest. drink plenty of fluids Avoid spicy foods and caffeine. They can worsen nausea and diarrhea. Avoid alcohol, it can irritate the stomach. may apply heat to the abdomen: Heating pad may help seek emergent care for abdominal pain and you develop any of the following: Severe abdominal pain Fever/chills Repeated, uncontrolled vomiting Vomiting blood Blood in the stool shortness of breath weakness chest pain /es/ GRETCHEN TALAVERA RN V23 [facility] Signed: 11/03/2023 14:09 11/03/2023 ADDENDUM STATUS: COMPLETED to pain intervention clinic to consider vet's request for another pain injection for abdominal pain. /es/ TALI MARCUM REGISTERED NURSE Signed: 11/03/2023 15:22 Receipt Acknowledged By: * AWAITING SIGNATURE * NORMA CARPIO SARAH JEAN [facility]
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
--- OUTSIDE RECORDS SUMMARY | 2023-11-29 19:16 | XMS_ITS | Encounter Summary ---
Author Name Department of Vetera Affairs Organization Department of Vetera Affairs Address [address] [place] [address] Support Name Relationship Address Phone MARA CERON Next of Kin [address] [phone] ORTIZ ZAVALA Emergency Contact [address] [place], [place] [phone] SAMARIA ROD Emergency Contact [address] [place], [place] [phone] Selected Encounter This section includes the information on record at [place] for the Encounter. Date/Time Encounter Type Encounter Description Reason Pro vider Source November 19, 2023 03:00 PM OFFICE O/P EST MOD 30 MIN GASTROENTEROLOGY ICD-10-CM R19.7 Diarrhea, unspecified PIA ESPINOSA Lorie Encounter Template Text not used by [place] Assessments - Encounter Diagnoses This section includes the primary and secondary diagnoses documented for the Encounter. Date/Time Primary/Secondary Diagnosis Diagnosis Name Provider Source November 19, 2023 05:07 PM PRIMARY Diarrhea, unspecified EVARISTO ONEIL [facility] November 19, 2023 05:07 PM SECONDARY Acute pancreatitis without necrosis or infection, unsp [facility] Plan of Treatment: Future Appointments (+ 6 months) and Future Tests (+/- 45 days) The Plan of Treatment section includes future care activities for the patient from all [place] treatmentfacilities. This section includes future appointments and future orders which are active, pending or scheduled. Future Appointments This section includes appointments that were scheduled to occur 6 months from the date of the Encounter, up to a maximum of 20 appointments. The data comes from all [place] treatment facilities. Appointment Date/Time Appointment Type Appointme nt Facility Name November 28, 2023 01:00 PM AMBULATORY [facility]IATRY [facility] December 04, 2023 09:00 AM [facility] December 05, 2023 01:20 PM AMBULATORY - REHAB MEDICIN E [facility] December 16, 2023 02:00 PM AMBULATORY - PS[facility]CHIATRY [facility] Active, Pending, and Scheduled Orders This section includes a listing of several types of active, pending, and scheduled orders, including clinic medications orders, diagnostic test orders, procedure orders and consult orders; where the start date of the order is 45 days before the date of the Encounter or 45 days after the date of theEncounter. The data comes from all [place] treatment facilities. Test Date/Time Test Type Test Details Facility Name November 19, 2023 12:00 AM Laboratory - Chemi stry Order ELASTASE-1,PANC STL STOOL FECES SP ONCE [facility] November 19, 2023 12:00 AM Laboratory - Chemi stry Order TTG AB,IGA SERUM SP ONCE [facility] November 19, 2023 12:00 AM Laboratory - Chemi stry Order IGA PLASMA SP ONCE [facility] November 19, 2023 12:00 AM Laboratory - Chemi stry Order ENTERIC PATHOGEN PCR PANEL STOOL FECES SP ONCE [facility] November 19, 2023 12:00 AM Laboratory - Microbiology Order OVA & PARASITES FECAL FECES SP ONCE [facility] Encounter Notes: All associated encounter notes This section contains the clinical notes associated to the Encounter. 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 Here to establish care. # Diarrhea, likely osmotic Since 08/2023. Related to meal, and no night time. With history of pancreatitis, could have chronic pancreatitis. She also travelled in cruise ship, which could have infection with Legionella, giardia which we will check enteric panel. # Recurrent abdominal pain # Prior ERCPs [...] 2004 admission was without liver enzymes elevation. Overall, unclear true diagnosis of sphincter of Oddi's dysfunction. She had 5 ERCP [please see details on initial consult note 06/04/23] with multiple sphincterotomy in the past. No more ERCP indicated unless developing elevated liver enzymes or other signs. Was on chronic opioid in the past, and now after the celiac nerve neurolysis was able to wean off opioid completely and now on only ibuprofen and acetaminophen. She is on duloxetine since 2020. Pain is controlled now and is managed with pain clinic which is now transferred to [place]. # Recurrent acute pancreatitis Last EUS 04/2023 without feature of chronic pancreatitis. If new further episode of recurrent pancratitis, would obtain further work-up for recurrent acute pancreatitis including genetic testing (per patient no prior testing). Recs: - Enteric panel, stool ova parasite, and stool elastases. Will also check for celiac - IF symptom persists for the next month (even with negative elastase), would try treat pancreatic lipase/Creon - Pain as per pain clinic. Agree with celiac neurolysis repeat if needed given good result. - Continue duloxetine, continue as needed ibuprofen and acetaminophen. Return to clinic: [address] Packer and Dr. Garcia. Evaristo Oneil MD GI fellow [phone] -- HPI: 42 yo F with chronic urticaria, taking daily antihistamine, reported sphincter of oddi's. Here to establish care. She is loosing private insurance, so planning to switch all care here. Seen by ED for acute worsening abdominal pain and nausea in Aug 2023. Since then, has 2-3 watery stool a day, no night time bowel movement. Eat then has abdominal cramping 10 min after the eating, then resolved after the bowel movement. Denies vomiting, has some nausea. No fever/chills. Lots of bloating. Before this had a bowel movement every 3-4 days. Lost 12 lbs for the past 2.5 months. Afraid to eat, and now with only protein shake. Went to [place] end of june and mid September this year went on a cruise for scuba driving. No sick contact. Reports recurrent acute pancreatitis and acute on chronic abdominal pain for 18 years about 20-25 times. Pressure 20 mmHg with elevated liver enzymes 3-4 times value in the paast (unable to see elevated liver enzymes in the available record). Pain has significantly improved with PS 0-1/10 after the neurolysis (once), doing every 6 months. No longer use any opioid. 24-hour 5-HIAA at 22.8. 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 The minor papilla [...] pancreatitis. /lilia/ Evaristo Oneil GI fellow Signed: 11/19/2023 17:[address] [facility]
--- OUTSIDE RECORDS SUMMARY | 2023-11-29 19:16 | XMS_ITS | Encounter Summary ---
Author Name Department of Vetera ns Affairs Organization [facility] of [facility] Affairs Address [address] [place] [address] Support Name Relationship Address Phone MARA CERON Next of Kin [address] [phone] ORTIZ ZAVALA Emergency Contact [address] [place], [place] [phone] SAMARIA ROD Emergency Contact [address] [place], [place] [phone] Selected Encounter This section includes the information on record at MD for the Encounter. Date/Time Encounter Type Encounter Description Reason Provider Source November 19, 2023 04:04 PM HC PRO PHONE CALL 5-10 MIN TELEPHONE/REHAB AND SUPPORT ICD-10-CM K86.1 Other chronic pancreatitis SUOS,ARMANI Lorie Encounter Template Text not used by MD Assessments - Encounter Diagnoses This section includes the primary and secondary diagnoses documented for the Encounter. Date/Time Primary/Secondary Diagnosis Diagnosis Name Provider Source November 19, 2023 04:04 PM PRIMARY Other chronic pancreatitis JORGEOS,ARMANI [facility] Plan of Treatment: Future Appointments (+ 6 months) and Future Tests (+/- 45 days) The Plan of Treatment section includes future care activities for the patient from all MD treatmentfacilities. This section includes future appointments and future orders which are active, pending or scheduled. Future Appointments This section includes appointments that were scheduled to occur 6 months from the date of the Encounter, up to a maximum of 20 appointments. The data comes from all MD treatment facilities. Appointment Date/Time Appointment Type Appointme nt Facility Name November 28, 2023 01:00 PM AMBULATORY - PSYCHIATRY [facility] December 04, 2023 09:00 AM AMBULATORY - PSYCHIATRY [facility] December 05, 2023 01:20 PM AMBULATORY - REHAB MEDICIN E [facility] December 16, 2023 02:00 PM AMBULATORY - PSYCHIATRY [facility] JOH[facility] Active, Pending, and Scheduled Orders This section includes a listing of several types of active, pending, and scheduled orders, including clinic medications orders, diagnostic test orders, procedure orders and consult orders; where the start date of the order is 45 days before the date of the Encounter or 45 days after the date of theEncounter. The data comes from all MD treatment facilities. Test Date/Time Test Type Test Details Facility Name November 19, 2023 12:00 AM Laboratory - Chemi stry Order ELASTASE-1,PANC STL STOOL FECES SP ONCE [facility] November 19, 2023 12:00 AM Laboratory - Chemi stry Order TTG AB,IGA SERUM SP ONCE [facility] November 19, 2023 12:00 AM Laboratory - Chemi stry Order IGA PLASMA SP ONCE [facility] November 19, 2023 12:00 AM Laboratory - Microbiology Order OVA & PARASITES FECAL FECES SP ONCE [facility] November 19, 2023 12:00 AM Laboratory - Chemi stry Order ENTERIC PATHOGEN PCR PANEL STOOL FECES SP ONCE [facility] Encounter Notes: All associated encounter notes This section contains the clinical notes associated to the Encounter. Date/Time Encounter Note(s) Provider Source November 19, 2023 04:05 PM REPORT OF CONTACT: LOCAL TITLE: PATIENT CONTACT NOTE STANDARD TITLE: REPORT OF CONTACT DATE OF NOTE: NOVEMBER 19, 2023@16:05 ENTRY DATE: NOVEMBER 19, 2023@16:05:34 AUTHOR: ARMANI HEIN COSIGNER: URGENCY: STATUS: COMPLETED Patient contact Name of Malcolm: QUINTIN ZAVALA Date & Time of Contact: November@16:05 Type of Contact: Telephone Reason for Contact: Pre-Procedure Phone Call Contact: PROCEDURE: Malcolm/surrogate contacted via telephone regarding a scheduled interventional pain procedure appointment. Date & Time: November@13:20 Planned Procedure: splanchnic nerve block with steroid Specific Location: bilateral Cemetery Warden: Malcolm/surrogate informed Malcolm cannot drive for 12 hours following procedure and they will need a rental car ferry driver for procedure. Malcolm is aware the procedure will be cancelled if a rental car ferry driver is unavailable. Malcolm Verbalizes Understanding: Yes MEDICAL STATUS: Past Medical History reviewed for medical contraindications had surgical procedure(s)(including dental) within the last three months: Denies Malcolm has upcoming planned surgery: Denies Malcolm had fracture(s) within the last three months: Denies has history of nausea, lightheadedness, excessive sweating, feeling warm, and /or blood pressure/heart rate drop during a procedure or blood draw: Denies hypotension and dizzyness after last procedure - will discuss if pt needs IVF with this procedure Malcolm has a rash or any open wounds: Denies Malcolm is /possibly : Not applicable Malcolm has plans to travel outside of the country or to a place in the [place] where there is not access to medical care within 4 days following the procedure: Denies Malcolm is currently taking antibiotics: Denies CBC Collection DT Spec WBC HGB HCT PLT MCV NEUT LYMPHS 09/10/2023 19:34 BLOOD 7.45 13.6 39.2 369 81.7 55.3 31.8 03/27/2023 10:13 BLOOD 7.02 14.2 40.9 371 82.3 Educated Malcolm/surrogate to call special effects technician Phone Line if needing to take antibiotics before having the procedure. Yes Educated Malcolm/surrogate on need to be free of active infections and off antibiotics that were prescribed for infection for 7 days prior to having the procedure done. Yes Educated /surrogate on prophylactic antibiotics(not being taken for an active infection): Okay to proceed with having planned procedures. Yes Malcolm is Diabetic: Denies HEMOGLOBIN A1C 4.8 (03/27/23) has a pacemaker, defibrillator, nerve stimulator or any implanted electronic device: Not applicable has had steroid injections within the last calendar year within or outside of the [facility]: Yes Allergies reviewed: Malcolm has allergy concerns related to pain procedure: Denies EDUCATION/INSTRUCTIONS /surrogate indicates readiness to learn. Instructed on the following and verbalized understanding of instructions. NPO status (no food 4 hours prior to procedure, no liquids 2 hours prior to procedure.) Notified to arrive 30 minutes prior to scheduled appointment time for check-in at [facility]. To take medications as prescribed, with the exception of any contraindicated medications as instructed by pain clinic staff and/or anticoagulation clinic (if applicable). To call if any medical changes prior to procedure. Recommended no vaccines within 2 weeks of steroid injection. Malcolm/surrogate states understanding Yes MEDICATIONS takes blood thinning medications: Denies takes ASA/ASA containing products: Denies Malcolm instructed to hold ASA/ASA containing products for 6 days prior to procedure. takes Fish Oil or Vitamin E: Yes Malcolm instructed to hold Fish Oil & Vitamin E for 6 days prior to procedure. Malcolm takes NSAIDs: Yes instructed to hold NSAIDs for 7 days prior to procedure. takes Phosphodiesterase inhibitors (e.g. Sildenafil, Vardenafil, Tadalafil, Cilostazol): Denies Malcolm instructed to hold Phosphodiesterase inhibitors for 48 hours prior to procedure. Malcolm provided with direct Pain Procedure Nurse Line phone number [phone] and encouraged to call if Malcolm needs to reschedule appointment or if any questions arise. /lilia/ ARMANI HEIN RN, BSN Signed: 11/19/2023 16:16 ARMANI HEIN [facility]
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
--- OUTSIDE RECORDS SUMMARY | 2023-11-29 19:16 | XMS_ITS | Encounter Summary ---
Author Name Department of Vetera Affairs Organization Department of Vetera ns Affairs Address [address] [place] [address] Support Name Relationship Address Phone MARA CERON Next of Kin [address] [phone] ORTIZ ZAVALA Emergency Contact [address] [place], [place] [phone] SAMARIA ROD Emergency Contact [address] [place], [place] [phone] Selected Encounter This section includes the information on record at [place] for the Encounter. Date/Time Encounter Type Encounter Description Reason Pro vider Source November 19, 2023 03:14 PM Outpatient Encounter TELEPHONE/REHAB AND SUPPORT [facility] Encounter Template Text not used by [place] Plan of Treatment: Future Appointments (+ 6 months) and Future Tests (+/- 45 days) The Plan of Treatment section includes future care activities for the patient from all [place] treatmentfacilities. This section includes future appointments and future orders which are active, pending or scheduled. Future Appointments This section includes appointments that were scheduled to occur 6 months from the date of the Encounter, up to a maximum of 20 appointments. The data comes from all [place] treatment facilities. Appointment Date/Time Appointment Type Appointme nt Facility Name November 28, 2023 01:00 PM AMBULATORY - PSYCHIATRY [facility] December 04, 2023 09:00 AM AMBULATORY - PSYCHIATRY [facility] December 05, 2023 01:20 PM AMBULATORY - REHAB MEDICIN [facility] December 16, 2023 02:00 PM AMBULATORY - PSYCHIATRY [facility] Active, Pending, and Scheduled Orders This section includes a listing of several types of active, pending, and scheduled orders, including clinic medications orders, diagnostic test orders, procedure orders and consult orders; where the start date of the order is 45 days before the date of the Encounter or 45 days after the date of theEncounter. The data comes from all [place] treatment facilities. Test Date/Time Test Type Test Details Facility Name November 19, 2023 12:00 AM Laboratory - Chemi stry Order ELASTASE-1,PANC STL STOOL FECES SP ONCE [facility] November 19, 2023 12:00 AM Laboratory - Chemi stry Order TTG AB,IGA SERUM SP [facility]CE [facility] November 19, 2023 12:00 AM Laboratory - Chemi stry Order IGA PLASMA SP ON[facility] November 19, 2023 12:00 AM Laboratory - Microbiology Order OVA & PARASITES FECAL FECES SP ONCE [facility] November 19, 2023 12:00 AM Laboratory - Chemi stry Order ENTERIC PATHOGEN PCR PANEL STOOL FECES SP ONCE [facility] Encounter Notes: All associated encounter notes This section contains the clinical notes associated to the Encounter. Date/Time Encounter Note(s) Provider Source November 19, 2023 03:14 PM REPORT OF CONTACT: LOCAL TITLE: PATIENT CONTACT NOTE STANDARD TITLE: REPORT OF CONTACT DATE OF NOTE: NOVEMBER 19, 2023@15:14 ENTRY DATE: NOVEMBER 19, 2023@15:14:48 AUTHOR: ARMANI HEIN EXP COSIGNER: URGENCY: STATUS: COMPLETED Patient contact Name of : QUINTIN ZAVALA Date & Time of Contact: November@15:14 Type of Contact: Telephone Reason for Contact: Procedure Instructions PROCEDURE: Date & Time: 12/05/23 at 1320 Planned Procedure: B/L SPLANCHNIC NERVE BLOCK WITH STEROID Attempted to reach [facility] by phone today regarding information for upcoming scheduled appointment with the [facility]. Message left for [facility] to call Pain Procedure Nurse Line - [phone]. Will make another attempt if no return call from [facility]. Steroids in the last year per chart review: 06/16/23 40mg /es/ ARMANI HEIN, RN, BSN Signed: 11/19/2023 15:16 ARMANI HEIN [facility]
--- OUTSIDE RECORDS SUMMARY | 2023-11-29 19:17 | XMS_ITS | Continuity of Care Document ---
Author Name Unknown Organization [facility] Address [address] [address] [place] [address] Phone Care Team Providers Care Dispatcher Chief Coal Slurry Name Role Phone Flakito PEDERSEN, Meagan Miranda [...] ERCP w/stent & sphinc Offic/outpt E&m New Mod-hi Offic/outpt E&m Estab Low-mod 6 Ercp; W/press [...] W/endo Retro Insrt Tube/ 12 Offic/outpt E&m [facility] Mod-ky 2 12 [id number] Ugi Endo; W/endo Ultrasound Ex 12 U[facility] End[facility]; W/bx 1/mx Advance Directives Directive Yes / No Effective Date File Name No Information Encounters Encounter Description Practice Location Reason(s) For Visit Diagnoses Date Provider Providers Copied on Encounter [facility], [address] [address], [facility] [place] [place], [id number], [place] tel:[phone] [facility] No Information 3 Flakito Barnett [address], [place], [place], [id number], [place]. [phone] [facility] [place], [address] [address], [place] [place] [place], [id number], [place] tel:[phone] [facility] Presence of pancreatic duct stent Apr-0 3 Flakito Barnett [address], [place], [place], [id number], [place]. tel:[phone] [facility] [place], [address] [address], [facility] [place], [id number], [place] tel:[phone] [facility] No Information 0 3 Flakito Barnett [address], [place], [place], [id number], [place]. tel:[phone] Referring Provider: Meagan Fraga MD, [address], [facility] [place], [address] . tel:[phone] Offic/outpt E&m [facility] [place], [address] [address], [place], [id number], [place] tel:[phone] [facility] GI Symptoms or Concerns (chief complaint) Recurrent acute pancreatitis 3 Flakito Barnett [address] [facility] [address], [place], [place], [id number], [place]. tel:[phone] Referring Provider: Referral Self, USE FOR SELF REFERRALS. [facility], [address] [address], [place], [id number], [place] tel:[phone] [facility] No Information 3 Hari Johnson. [address] [facility] [address], [place], [place], [id number], [place]. tel:[phone] [facility], [address] [address], [place], [id number], [place] tel:[phone] [facility] Chronic abdominal painOther chronic painSpasm of sphincter of Oddi 3 Flakito Barnett [address], [facility] [address], [place], [place], [address], [place]. tel:[phone] Offic/outpt E&m Estab Low-mod [facility], [address] [address], [place], [id number], [place] tel:[phone] [facility] GI Symptoms or Concerns (chief complaint) Sphincter of Oddi dysfunction 6 No Information [facility], [address] [address], [place], [id number], [place] tel:[phone] [facility] Sphincter of Oddi dysfunction 6 No Information [facility], [address] [address], [place], [id number], [place] tel:[phone] [facility] No Information 6 No Information Offic/outpt E&m Estab Mod-hi 2 [facility], [address] [address], [place], [id number], [place] tel:[phone] [facility] GI Symptoms or Concerns (chief complaint) Abdominal pain, epigastricAc [place] pancreatitis , unspecifiedD ietary counseling and surveillance 2- 6 No Information Offic/outpt E&m Estab Minor [facility], [address] [address], [place], [id number], [place] tel:[phone] [facility] GI Symptoms or Concerns (chief complaint) Spasm Sphincter Of Oddi 4 No Information Referring Provider: Referral Self, USE FOR SELF REFERRALS. [facility] E&m Minr Compl [facility], [address] [address], [place], [id number], [place] tel:[phone] [facility] No Information Mar- 4 No Information Referring Provider: Michael Gonzalez, [address], [address]. tel:[phone] [facility], [address] [address], [place], [id number], [place] tel:[phone] [facility] Acute Pancreatitis Sep-0 4 No Information [facility], [address] [address], [place], [id number], [place] tel:[phone] [facility] No Information Mar-0 4 No Information [facility], [address] [address], [place], [id number], [place] tel:[phone] [facility] No Information Mar-0 4 No Information Referring Provider: Michael Gonzalez, [address], [address]. tel:[phone] Offic/outpt E&m Estab Mod-hi 2 [facility], [address] [address], [place], [id number], [place] tel:[phone] [facility] GI Symptoms or Concerns (chief complaint) Acute Pancreatitis Sep-0 3 4 No Information Offic/outpt E&m Estab Low-mod [facility], [address] [address], [place], [id number], [place] tel:[phone] [facility] Sphincter of ODDI spasm (chief complaint) Spasm Sphincter Of Oddi 0 3 No Information Offic/outpt E&m Estab Mod-hi 2 [facility], [address] [address], [place], [id number], [place] tel:[phone] [facility] Pancreatitis (chief complaint) Spasm Sphincter Of Oddi 2 No Information [facility] [place], [address] [address], [place], [id number], [place] tel:[phone] [facility] No Information 2 No Information Offic/outpt E&m Estab Mod-hi 2 [facility], [address] [address], [place], [id number], [place] tel:[phone] [facility] Pancreatitis (chief complaint) Acute Pancreatitis 2 No Information [facility] [place] [address] [address], [place], [id number], [place] tel:[phone] [facility] No Information 2 No Information Family History [...] protein-Ad26, preservative free, 0.5 mL administered Note: RadPad bi- directional interface ; Source: Other Registry SARS-COV-2 (COVID-19) vaccin e, vector non-replicating, recombinant spike protein-Ad26, preservative free, 0.5 mL administered Note: BlueRoninIC bi- directional interface ; Source: Other Registry [...] I have requested her outside records from [facility]. We last saw her in 2015. [...] nausea and vomiting. She was hospitalized at [facility]. She reports having an elevated lipase [...] provider 5. Patient will send me her FMLA paperwork to fill out 6. Further follow [...]
--- OUTSIDE RECORDS SUMMARY | 2023-11-29 19:17 | XMS_ITS | Referral Summary ---
Author Name Unknown Organization [facility] Address [address] [place] [address]. [place] [address] Care Team Providers Care Md Allergy Immunology Name Role Phone Jacinta Mendes MD Primary Care Provider Unavailab Jacinta Ortiz MD Unavailable Unavailable Toño Patricia MD Unavailable [phone] Allergies Active Allergy Reactions Criticality Noted Date [...] Take 20 mg by mouth At Bedtime Active DULoxetine (CYMBALTA) 60 MG capsule Take 60 mg by mouth daily Active EPINEPHrine (ADRENACLICK JR) 0.15 MG/0.15ML injection 2-pack Inject 0.15 mg into the muscle as needed for anaphylaxis Active albuterol (PROAIR HFA/PROVENTIL HFA/VENTOLIN HFA) 108 (90 Base) MCG/ACT inhaler Inhale 2 puffs into the lungs 05/31/2021 Active polyethylene glycol (MIRALAX) 17 g packet Take 1 packet by mouth daily Active hydrOXYzine (ATARAX) 25 MG tablet Take 25 mg by mouth 3 times daily as needed for itching Active cefTAZidime (FORTAZ) 1 GM vialIndications:Ja torres allergy For Allergy Testing in Allergy Clinic Only 1 each 01/15/2022 Active tacrolimus (PROTOPIC) 0.1 % external ointmentIndications :Angioedema, subsequent encounter,Mild intermittent asthma without complication,House dust mite allergy,Drug allergy Apply topically At Bedtime On palms and plants 60 g 1 01/15/2022 Active fexofenadine (FÉLIX) 180 MG tabletIndications:A ngioedema, subsequent encounter,Mild intermittent asthma without complication,House dust mite allergy TAKE ONE TABLET BY MOUTH ONE TIME DAILY IN THE P.M. 30 tablet 01/15/2022 Active predniSONE (DELTASONE) 50 MG tabletIndications:A [...] of Treatment Not on file Care Teams Md Allergy Immunology Relationship Specialty Start Date End Date Jacinta Mendes MD PCP - General Family Practice 03/07/14 Jacinta Mendes MD Referring Physician Family Medicine 06/19/21 Toño Patricia MD [address] [place] [address] Allergy & Immunology 06/19/21
--- OUTSIDE RECORDS SUMMARY | 2023-11-29 19:17 | XMS_ITS | Clinical Summary ---
Author Name Unknown Organization [employer] [facility] Address [place], [place] [address] Care Team Providers Care Nonprofit Director Name Role Phone Omar Vogt MD Unavailable [phone] Facundo Bell RN Unavailable Annika Huff NP [...] po q 8 hours prn 30 Tablet 05/31/2021 Active hydrOXYzine HCL (ATARAX) 25 mg tabletIndications:Sl eep disturbance Take 1-2 tab po q bedtime as needed 60 Tablet 05/31/2021 Active albuterol HFA (PRO-AIR; VENTOLIN; PROVENTIL) 90 mcg/actuation inhalerIndications:M ultiple allergies Inhale 2 Puffs by mouth 4 times daily if needed. 8 g 05/31/2021 Active ondansetron (ZOFRAN ODT) 4 mg disintegrating tabletIndications:Ab dominal pain, acute, epigastric Place 1 Tablet (4 mg) on the tongue every 6 hours if needed for Nausea/Vomiting. 30 tablet. 3 08/14/2021 Active tacrolimus 0.1% (PROTOPIC) 0.1 % ointment Apply topically to affected area(s). 01/15/2022 Active fexofenadine (FÉLIX) 180 mg tablet Take 1 Tablet by mouth once daily in the evening. Twice daily 09/11/2021 Active fluticasone propion-salmeteroL (ADVAIR) 250-50 mcg/Dose diskus inhaler Inhale 1 Puff by mouth in the morning and 1 Puff in the evening. 09/11/2021 Active predniSONE (DELTASONE) 50 mg tab tablet Emergency set: if severe allergic reaction take immediately 100mg Prednisone (2x50mg) and 2 Tabl Cetirizine 10mg and then write precise 12h retrospective diary. If less severe reaction take only the 2 Tabl Cetirizine 01/15/2022 Active cefTAZidime (FORTAZ) 1 gram solr 1x monthly 01/15/2022 Active EPINEPHrine (EpiPen) 0.3 mg/0.3 mL auto-injectorIndicat ions:Multiple allergies Inject 0.3 mg (1 pen.) intramuscular one time if needed for Allergic Reaction. 0.6 mL 1 08/16/2022 Active HYDROmorphone (DILAUDID) 4 mg tabletIndications:Ch ronic recurrent pancreatitis (HC) Take 0.5-1 Tablets (2-4 mg) by mouth every 6 hours if needed for Pain. 10 Tablet 08/16/2022 Active atorvastatin (LIPITOR) 20 mg tabletIndications:Hy perlipidemia, unspecified hyperlipidemia type Take 1 Tablet (20 mg) by mouth at bedtime. 60 Tablet 11/12/2022 Active DULoxetine (CYMBALTA) 60 mg Delayed-release capsuleIndications:A djustment disorder with mixed anxiety and depressed mood TAKE ONE CAPSULE BY MOUTH ONE TIME DAILY 30 Capsule 02/12/2023 Active methylPREDNISolone (Medrol, Michael,) 4 mg tabletIndications:Ac [place] right-sided low back pain without sciatica Take by mouth as instructed per packaging. 21 Tablet 02/12/2023 Active cyclobenzaprine (FLEXERIL) 5 mg tabletIndications:Ac [place] right-sided low back pain without sciatica Take 1-2 Tablets (5-10 mg) by mouth 3 times daily if needed for Muscle Spasm. 21 Tablet 02/12/2023 Active ibuprofen (ADVIL; MOTRIN) 800 mg tabletIndications:Ac [place] right-sided low back pain without sciatica Take 1 Tablet (800 mg) by mouth three times daily with meals. 90 Tablet 02/12/2023 Active HYDROmorphone (Dilaudid) 4 mg tabletIndications:Ac [place] right-sided low back pain without sciatica Take 1 Tablet (4 mg) by mouth every 6 hours if needed for Pain. 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 Stress fracture of tibia 08/16/2022 Overview: [...] depre ssed mood 04/08/2008 Anemia, unspecified 06/01/2005 Immunizations Name Administration Dates Next Due COVID-19 vaccine (SOLO-J&J) PFDARYA 2,09/01/2021 COVID-19 vaccine (Quanlight 30mcg/0.3mL) P FDARYA 07/12/2020 Td, Preservative Free (age >= 7 [...] of Communication with Friends and Fami ly Not on file 08/19/2023 Financial Resource Strain Answer Date R ecorded [...] (6 lb 14 oz) M Vag Radha Luna 12/23 Term 38w 0d 16h 00m/ 3.71 kg (8 lb 3 oz) M Jessica suarez Last Filed Vital Signs Vital Sign [...] this topic Medical Devices Implanted Type Area Rewriter Device Identifier Shelf Expiration Date Model / Serial / Lot Stent Pancreatic 5fr 3cm Gpso Lory - [id number] Implanted:Qty: 1 on 03/29/2014 at [facility] 07/21/2016 GPSO- 5-3# / / [id number] Stent Pancreatic [id number] Lory Sof-Flex - [id number] Implanted:Qty: 1 on 04/28/2023 by Meagan Fraga MD at [facility] N/A: [facility] GPSO-SF-5 -5 / / [id number] Procedures Procedure Name Priority Date/Time Associated Diagnosis Comments LC HCV ANTIBODY RFX TO QUANT PCR Routine 08/16/2022 1:31 PM [facility] Need for hepatitis C screening test BINDERY LEADPERSON THIN PREP PAP SCREEN IMAGED Routine 06/12/2020 1:55 PM [facility] Screening for cervical cancer ANTI HIV 1/2 Routine 05/22/2007 10:08 AM CDT Supervision Of Other Normal from Last 3 Months or Most Recently Relevant to Health Maintenance Results * LC HCV ANTIBODY RFX TO QUANT PCR (08/16/2022 1:31 PM [facility]) [facility] HCV Ab <0.1 0.0 - 0.9 s/co ratio 08/20/2022 10:06 PM [facility] ([facility]) Blood BLOOD SPECIMEN / Unknown Venipuncture / Unknown 08/16/2022 1:31 PM [facility] 08/16/2022 1:31 PM [facility] Narrative [facility] ([facility]) - 08/20/2022 10:06 PM [facility] Performed at: ??01 - [facility] [place] [place] ??[id number] Scrap Sorter: Sha Mireles MD, Phone: ??[phone] Donell Aguirre DO LABORATORY [facility] ([facility]) [address] [place] [address] * BINDERY LEADPERSON THIN PREP PAP SCREEN IMAGED [[id number]] (06/12/2020 1:55 PM [facility]) [facility] Case Report Gynecologic Cytology Report ? Case: [id number] ? Authorizing Provider: ??Jacinta Mendes MD ? Collected: ? 06/12/2020 1355 ? Ordering Location: ? [facility] ?? Received: ?06/12/2020 1438 ? Clinic ? First Screen: ?Baccam, Minie ? Specimen: ?BINDERY LEADPERSON ThinPrep Vial Screening, Cervical ? 06/22/2020 10:19 AM [facility] INTERPRETATION/ RESULT NEGATIVE FOR INTRAEPITHELIAL LESION OR MALIGNANCY (NIL) (none) 06/22/2020 10:19 AM [facility] IMEN ADEQUACY Satisfactory for evaluation Endocervical component present 06/22/2020 10:19 AM [facility] HPV REQUEST HPV and PAP 06/22/2020 10:19 AM [facility] Date of LMP 06/05/20 06/22/2020 10:19 AM [facility] Last Pap Date 03/06/17 06/22/2020 10:19 AM [facility] Last Pap Result NIL 0 10:19 AM [facility] Abnormal Pap or [place] Bx in last 5 years No 06/22/2020 10:19 AM [facility] Menstrual Status Regular Periods 06/22/2020 10:19 AM [facility] [place] Bx Done Today No 06/22/2020 10:19 AM [facility] Additional Information None given 06/22/2020 10:19 AM [facility] Comment: Cytology is screened at [facility] - [address], [place] [address] and [facility] - [address] [place] [address], [place] [address] and [facility] - [address] [place] [address] [facility] - [address], [place] [address] Automated Review Successful 06/22/2020 10:19 AM [facility] Comment:Specimen processed s uccessfully by automated management professionals device, ThinPrep Imaging System, [employer] ANCILLARY TESTING BINDERY LEADPERSON HPV Ordered, Please see separate report 06/22/2020 10:19 AM [facility] Note The pap test is a screening technique, not a diagnostic procedure. It is used primarily to screen for squamous cancers and precursor lesions. Published studies have shown that it is subject to both false negative and false positive results. The pap test should not be used as the sole means to diagnose or exclude pre-malignant and malignant lesions. 06/22/2020 10:19 AM [facility] Other (Cervical) Non-Blood / Unknown 06/12/2020 1:55 PM [facility] 06/12/2020 2:38 PM [facility] Jacinta Mendes MD PATHOLOGY/CYTOLOGY [facility] [address] [place] [address], [place] * ANTI HIV 1/2 (05/22/2007 10:08 AM CDT) ANTI HIV 1/2 Non-reacti ve [facility] Blood specimen (specimen) BLOOD SPECIMEN / Unknown 05/22/2007 10:08 AM CDT 05/22/2007 10:02 AM CDT Jacinta Mendes MD SEND OUTS [facility] [place]NAL [place]IP [address] [place] [address] from Last 3 Months or Most Recently Relevant to Health Maintenance Advance Directives * Full Code (Latest Code Status on File) Date Activated Date Inactivated Comments 04/28/2023 1:37 PM 04/28/2023 6:39 PM Question Answer Comments Code Status Discussion: Unable to Assess Preferences, Provider to review later * Full Code Date Activated Date Inactivated Comments 11/28/2015 8:19 AM 11/29/2015 2:47 PM * Full Code Date Activated Date Inactivated Comments 03/29/2014 8:45 AM 03/31/2014 7:39 PM * Full Code Date Activated Date Inactivated Comments 03/29/2014 8:39 AM 03/29/2014 8:45 AM * Full Code Date Activated Date Inactivated Comments 12/26/2011 9:18 AM 12/27/2011 2:17 AM Care Teams Nonprofit Director Relationship Specialty Start Date End Date Pcp, No . PCP - General 01/31/23 Omar Vogt MD Allergy and Immunology 12/04/11 Facundo Bell, RN [address] [place] [address] Registered Nurse 11/05/22 Annika Huff NP [address] [place] [address] Nurse Practitioner - Family 11/05/22
--- OUTSIDE RECORDS SUMMARY | 2023-11-29 19:17 | XMS_ITS | Encounter Summary ---
Author Name Unknown Organization [facility] Address [address] [place] [address]. [place] [address] Care Team Providers Care Warp Trucker Name Role Phone Jacinta Mendes MD Primary Care Provider Unavailab Jacinta Ortiz MD Unavailable Unavailable Toño Patricia MD Unavailable [phone] Toño Patricia MD Unavailable [phone] Encounter Details Date Type Department Care Team (Late st Contact Info) Description 01/16/2022 [facility] [address] [id number] Toño Patricia MD [address] [place] [id number] Social History Tobacco Use Types Packs/Day [...] on filedocumented in this encounter Care Teams Warp Trucker Relationship Specialty Start Date End Date Jacinta Mendes MD PCP - General Family Practice 03/07/14 Jacinta Mendes MD Referring Physician Family Medicine 06/19/21 Toño Patricia MD [address] [place] [address] Allergy & Immunology 06/19/21 Toño Patricia MD [address] [place] [address] Assigned Surgical Provider 09/16/21 07/18/23 documented as of this encounter
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
--- OUTSIDE RECORDS SUMMARY | 2023-11-29 19:17 | XMS_ITS | Clinical Summary ---
Author Name Unknown Organization [facility] Address [address] [place] [address]. [place] [address] Care Team Providers Care Tractor Operator Helper Name Role Phone Jacinta Mendes MD Primary Care Provider Unavailab Jacinta Ortiz MD Unavailable Unavailable Toño Patricia MD Unavailable [phone] Allergies Active Allergy Reactions Criticality Noted Date [...] ACTION PLAN 1979 ASTHMA CONTROL TEST 1979 GLUCOSE 1979 LIPID 1979 MAMMO SCREENING 1979 Pneumococcal Vaccine: Pediatrics (0 to 5 Years) and At-Risk Patients (6 to 64 Years) (1 of 2 - PCV) 12/07/1985 HIV SCREENING 12/07/1994 HEPATITIS C SCREENING 12/07/1997 HEPATITIS B IMMUNIZATION (1 of 3 - 19+ 3-dose series) 12/07/1998 PAP 12/07/2000 YEARLY PREVENTIVE VISIT 06/12/2021 06/12/2020 COVID-19 Vaccine ( season) 2023 10/15/2021, 09/01/2021, 12/28/2020, Additional history exists PHQ-2 (once per calendar year) 2023 01/16/2022, 09/11/2021 INFLUENZA VACCINE (Season Ended) 2024 DTAP/TDAP/TD IMMUNIZATION (3 - Td or Tdap) [...] age to complete this topic Care Teams Tractor Operator Helper Relationship Specialty Start Date End Date Jacinta Mendes MD PCP - General Family Practice 03/07/14 Jacinta Mendes MD Referring Physician Family Medicine 06/19/21 Toño Patricia MD [address] [place] [address] Allergy & Immunology 06/19/21
[2023-11-29 21:32] LABS: Basophils Absolute Auto 0.04 K/uL (0.00-0.30); Basophils Percent Auto 0.5 % (0.0-3.0); Eosinophils Absolute Auto 0.13 K/uL (0.00-0.50); Eosinophils Percent Auto 1.6 % (0.0-7.0); Hematocrit 42.8 % (33.0-51.0); Hemoglobin* 14.4 gm/dL (12.0-16.0); Lymphocytes Absolute Auto 2.32 K/uL (0.90-2.90); Lymphocytes Percent Auto 28.3 % (20-44); Mean Corpuscular HGB Conc 34 gm/dL (32-36); Mean Corpuscular Hemoglobin 28 pg (26-34); Mean Corpuscular Volume 83 fL (80-100); Monocytes Percent Auto 5.2 % (0.0-11.0); Neutrophils Absolute Auto 5.28 K/uL (1.7-7.0); Neutrophils Percent Auto 64.4 % (42.0-72.0); Platelet Count* 380 K/uL (140-440); RDW Coefficient of Variation % 12.2 % (11.5-15.5); Red Blood Count 5.17 m/uL (4.00-5.20)
[2023-11-29 21:40] LABS: Slide Review Reflex No
[2023-11-29] MEDS: LACTATED RINGERS 1000 ML 1,000 ML 75 ML IV (21:42)
[2023-11-29] MEDS: HYDROmorphone 2 MG TABLET 4 MG PO ×2 (21:43→23:45)
[2023-11-29 21:55] LABS: Lactate* 1.7 mmol/L (0.5-1.9)
[2023-11-29] MEDS: ACETAMINOPHEN 325 MG TABLET 650 MG PO (22:10)
[2023-11-29 22:23] LABS: Albumin* 4.2 g/dL (3.3-5.0); Chloride* 109 mmol/L (96-114)
[2023-11-29 22:24] LABS: Potassium* 3.9 mmol/L (3.6-5.1); Sodium* 139 mmol/L (135-149)
[2023-11-29 22:26] LABS: Alkaline Phosphatase* 52 U/L (40-150); Anion Gap 7 mEq/L (7-15); Aspartate Amino Transferase* 18 U/L (12-35); Bilirubin Total* 0.7 mg/dL (0.1-1.5); Blood Urea Nitrogen* 10 mg/dL (5-24); Carbon Dioxide* 23 mmol/L (20-32); Creatinine* 0.8 mg/dL (0.5-1.5); Est. Creatinine Clearance* 84.88; Estimated Glomerular Filt Rate 94 ml/min; Total Protein* 7.3 g/dL (6.0-8.3)
[2023-11-29 22:27] LABS: Alanine Aminotransferase* 19 U/L (4-35); Calcium* 8.5 mg/dL (8.4-10.6); Glucose* 87 mg/dL (60-115)
--- NOTE | 2023-11-29 23:08 | PM.IMHP1 ---
Hospitalist- H&P: HPI History of Present Illness Date Seen: 11/29/23 Chief complaint: abdominal pain Narrative: Tatum Taylor is a 42 year old female 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 About 3 days ago she started having mid epigastric pain that radiates a little bit to the left upper quadrant. She has been taking dilaudid 4 mg every 6 hours without adequate relief. She has not had vomiting but she does have constant nausea and she has been eating and drinking poorly. She has had some diarrhea. No blood in her stool. She was recently diagnosed with exocrine pancreatic insufficiency and has been prescribed pancrelipase but she has not yet received her prescription in the mail from the [facility]. She has had multiple ERCP procedures. The most recent was April of 2023 when she had a pancreatic stent placed at [facility]. She was briefly hospitalized here after that episode with a flare of pancreatitis. She is now transferred her care to the [facility] in [place]. They have done a nerve block in April or May 2023 which was effective at controlling her pain. She has not had significant pain problems except a brief episode in August. At that time she went to the [facility] emergency department but was not admitted. She previously was on chronic opioids but has been weaned off chronic opioids as of May 2023. Her last prescription of hydromorphone was for 2 mg tablets, number 30, on 06/11/2023. Review of Systems Narrative: Other than her epigastric pain and nausea she reports generally feeling well. Specifically denies fever, upper respiratory illness, cough, chest pain. No urinary symptoms. 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 - Mast cell activation, unspecified (ICD-10) Sphincter of Oddi spasm ?K83.4 - Spasm of sphincter of Oddi (ICD-10) Sphincter of Oddi dysfunction (Unknown) ?K83.4 - Spasm of sphincter of Oddi (ICD-10) Surgical History History of tonsillectomy and adenoidectomy ?Z90.89 - Acquired absence of other organs (ICD-10) Hx of appendectomy ?Z90.49 - Acquired absence of other specified parts of digestive tract (ICD-10) Hx laparoscopic cholecystectomy ?Z90.49 - Acquired absence of other specified parts of digestive tract (ICD-10) History of sphincterotomy of sphincter of Oddi ?Z98.890 - Other specified postprocedural states (ICD-10) Family History Sister Danika's disease Sister Raynaud phenomenon Mother Rheumatoid arthritis Erythema multiforme Social History Narrative: 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 Does not drink alcohol or use recreational drugs. Getting [facility] in [place]. What is your current living situation?: I presently have a place to live Problems where you live: no known problems Problems where you live details: None noted In the past 12 months, utilities in danger of being shut off: no In past 12 months, lack of transportation kept you from medical appts, meetings, work, or getting things needed for daily living: no In the past 12 mos, have been you worried that your food would run out before you had money to buy more?: never true In the past 12 mos, the food you bought just didn't last and you didn't have money to buy more?: never true Highest level of school completed/degree received: Bachelor's degree Smoking Status: Never smoker Do you use any of these nicotine containing products: None Second hand tobacco smoke exposure: No How often do you have a drink containing alcohol: never How often do you have six or more drinks on one occasion: Never AUDIT-C Alcohol total score: 0 Non-prescribed substance use: denies use Caffeine: No How often does anyone, including family, friends and others, physically hurt you: never How often does anyone, including family, friends and others, insult or talk down to you: never How often does anyone, including family, friends and others, threaten you with harm: never How often does anyone, including family, friends and others, scream or curse at you: never service: Yes Meds Home Medications and Allergies Home Medications Medication Instructions Recorded Confirmed Type albuterol sulfate 90 mcg/actuation 2 puff inhalation QID PRN 02/11/22 04/29/23 History aerosol inhaler shortness of breath or wheezing atorvastatin 20 mg tablet 20 mg PO HS 02/11/22 04/29/23 History epinephrine 0.3 mg/0.3 mL 0.3 mg IM ONCE PRN allergies 04/06/23 04/29/23 History injection, auto-injector tacrolimus 0.1 % topical ointment 1 applic topical BID PRN 04/06/23 04/29/23 History (Protopic) duloxetine 30 mg capsule,delayed 60 mg PO DAILY 04/29/23 04/29/23 History release hyoscyamine sulfate 0.125 mg 0.125 mg PO QID PRN 04/29/23 04/29/23 History sublingual tablet diphenhydramine HCl 25 mg capsule 50 mg PO DAILY PRN 11/29/23 11/29/23 History (Benadryl) fexofenadine 60 mg tablet (Allergy 180 mg PO Q12H 11/29/23 11/29/23 History Relief (fexofenadine)) lorazepam 0.5 mg tablet (Ativan) 0.5 mg PO Q8H PRN 11/29/23 11/29/23 History Allergies Allergy/AdvReac Type Severity Reaction Status Date / Time polyethylene glycol Allergy Anaphylaxis Verified 02/11/22 17:49 fentanyl AdvReac pain Verified 02/11/22 17:49 Exam Narrative: Exam Narrative: She is alert and appears in no obvious distress. She gives her own history. Eyes are normal. Sclerae nonicteric. Oropharynx is normal. Neck is supple without mass or adenopathy. Respirations are clear to auscultation. Cardiovascular: S1, S2, regular rate and rhythm. Abdomen: Bowel sounds active. Abdomen is soft with moderate epigastric tenderness. No other tenderness. No mass. No peritonitis. Extremities without edema. Intact peripheral pulses. Good peripheral perfusion. Const: Vital Signs, click to edit/add: Vital Signs - 24 hr 11/29/23 18:24 11/29/23 19:55 11/29/23 20:00 Temperature 98.3 F Pulse Rate 60 70 Pulse Rate [Pulse Oximeter] 90 Respiratory Rate 14 Blood Pressure Blood Pressure [Ri ght Upper Arm] 137/80 Pulse Oximetry 97 100 100 Oxygen Delivery Me thod Room Air 11/29/23 20:02 11/29/23 20:15 11/29/23 20:30 Temperature Pulse Rate 63 69 64 Pulse Rate [Pulse Oximeter] Respiratory Rate Blood Pressure 126/77 Blood Pressure [Ri ght Upper Arm] Pulse Oximetry 100 100 100 Oxygen Delivery Me thod 11/29/23 20:32 11/29/23 20:45 11/29/23 21:00 Temperature Pulse Rate 60 60 63 Pulse Rate [Pulse Oximeter] Respiratory Rate Blood Pressure 111/75 Blood Pressure [Ri ght Upper Arm] Pulse Oximetry 98 99 100 Oxygen Delivery Me thod 11/29/23 21:01 Temperature Pulse Rate 68 Pulse Rate [Pulse Oximeter] Respiratory Rate Blood Pressure 128/83 Blood Pressure [Ri ght Upper Arm] Pulse Oximetry 100 Oxygen Delivery Me thod Documenting provider has reviewed patient's vital signs: yes Hospitalist - H&P: Result Labs Labs: Short CBC 11/29/23 Range/Units 18:40 WBC 8.20 (4.50-11.00) K/uL Hgb 14.4 (12.0-16.0) gm/dL Hct 42.8 (33.0-51.0) % Plt Count 380 (140-440) K/uL BMP 11/29/23 21:39 Sodium 139 Potassium 3.9 Chloride 109 Carbon Dioxide 23 BUN 10 Creatinine 0.8 Glucose 87 Calcium 8.5 Liver Function 11/29/23 Range/Units 21:39 Total Bilirubin 0.7 (0.1-1.5) mg/dL AST 18 (12-35) U/L ALT 19 (4-35) U/L Alkaline Phosphatase 52 (40-150) U/L Albumin 4.2 (3.3-5.0) g/dL Assessment and Plan Assessment and plan (1) Abdominal pain: Problem comment: Acute abdominal pain likely related to her pancreatitis and sphincter of oddi dysfunction. Developed plan for acute management of this with plan to go [facility] [place] [facility] for chronic management. Status: Acute (2) Sphincter of Oddi dysfunction: Problem comment: History of recurrent ERCP and stenting and sphincterotomy. [facility] Status: Acute Plan Patient admitted to the hospital for management of epigastric pain in the context of chronic recurrent problems with pancreatitis and sphincter of Oddi dysfunction. Plan discharge when she is able to manage pain with oral medications and manage adequate p.o. intake. Total Time Spent Total Time Spent: Total time spent today is 60 minutes, 40 minutes in coordination of care discussing with patient and other providers ongoing evaluation management of abdominal pain
[2023-11-29 23:20] LABS: Lipase* 152 U/L (23-300)
--- NOTE | 2023-11-29 23:21 | PC.NURSE ---
End of Shift: Pt admitted to [facility] via ED with chief complaint of abdominal pain uncontrolled with pain medication at home, beginning on Friday. VSS other than pain rated at 8/10 in abdomen. Pain improved with IV and PO dilaluded and PO scheduled tylenol. Pt independent in room, drinking water and tolerating that well. Some nausea but states it has improved.
[2023-11-30] MEDS: HYDROmorphone 0.5 mg/0.5 ml inj 1 MG IVP ×6 (01:30→17:45)
[2023-11-30] MEDS: HYDROmorphone 2 MG TABLET 4 MG PO (04:10)
[2023-11-30 04:26] VITALS: BP 105/61; PULSE 69; RESP 16; O2SAT 97
--- NOTE | 2023-11-30 06:28 | PC.NURSE ---
End of shift [id number]: A&O pleasant and cooperative. Reporting abd pain 4-01/27. See eMAR for interventions. Up at [facility]vin in room. VSS.
[2023-11-30 07:45] VITALS: BP 121/70; PULSE 73; PULSE 78; RESP 16; TEMP 36.6; O2SAT 96
[2023-11-30] MEDS: ONDANSETRON ODT 4 MG TAB PO (08:20)
[2023-11-30] MEDS: LACTATED RINGERS 500 ML 500 ML IV (08:21)
[2023-11-30] MEDS: DULOXETINE 30 MG CAPSULE DR 60 MG PO (08:22)
[2023-11-30] MEDS: ACETAMINOPHEN 325 MG TABLET 650 MG PO (08:22)
[2023-11-30] MEDS: LACTATED RINGERS 1000 ML 1,000 ML 150 ML IV ×3 (09:31→22:40)
--- NOTE | 2023-11-30 11:40 | PM.IMPN1 ---
Progress Note: A&P Assessment and plan (1) Abdominal pain: Problem details: Acute abdominal pain likely related to her pancreatitis and sphincter of oddi dysfunction. Lipase unremarkable. Developed plan for acute management of this [facility]. - Remains painful and nauseous. Continue observation, increase IVF, continue IV pain medications and antiemetics as needed. Clear liq diet. Status: Acute (2) Sphincter of Oddi dysfunction: Problem details: History of recurrent ERCP and stenting and sphincterotomy. Refer back to [place] if not getting better Status: Acute Subjective Time Seen by Provider: 07:50 Date Seen: 11/30/23 Interval history: Tatum said she felt okay overnight, but noted that she needed a lot of pain medication, more than she would have available to her at home. As we were talking, and especially when I was examining her, her pain increased. She also notes that she is still having a lot of nausea. She has just been drinking a little water overnight, no other clears. She does complain of feeling dehydrated and thirsty. Exam Narrative: Exam Narrative: General: No acute distress. Awake, alert, oriented x3. No pallor. No jaundice. Oropharynx: Clear. Mucous membranes dry. Cardiovascular: Regular rate and rhythm. No murmurs, gallops, or rubs. Respiratory: Clear to auscultation bilaterally. No wheezes or crackles. Abdomen: Bowel sounds hypoactive. Soft, nondistended, tender in the epigastrium, no rebound tenderness or guarding. Extremities: No pedal edema. Const: Vital Signs, click to edit/add: Vital Signs - 24 hr 11/29/23 18:24 11/29/23 19:55 11/29/23 20:00 Temperature 98.3 F Pulse Rate 60 70 Pulse Rate [Pulse Oximeter] 90 Respiratory Rate 14 Blood Pressure Blood Pressure [Ri ght Arm] Blood Pressure [Ri ght Upper Arm] 137/80 Pulse Oximetry 97 100 100 Oxygen Delivery Me thod Room Air 11/29/23 20:02 11/29/23 20:15 11/29/23 20:30 Temperature Pulse Rate 63 69 64 Pulse Rate [Pulse Oximeter] Respiratory Rate Blood Pressure 126/77 Blood Pressure [Ri ght Arm] Blood Pressure [Ri ght Upper Arm] Pulse Oximetry 100 100 100 Oxygen Delivery Me thod 11/29/23 20:32 11/29/23 20:45 11/29/23 21:00 Temperature Pulse Rate 60 60 63 Pulse Rate [Pulse Oximeter] Respiratory Rate Blood Pressure 111/75 Blood Pressure [Ri ght Arm] Blood Pressure [Ri ght Upper Arm] Pulse Oximetry 98 99 100 Oxygen Delivery Me thod 11/29/23 21:01 11/29/23 22:59 11/29/23 23:38 Temperature 97.8 F 97.2 F L Pulse Rate 68 Pulse Rate [Pulse Oximeter] 80 Respiratory Rate 16 16 Blood Pressure 128/83 Blood Pressure [Ri ght Arm] 123/89 107/71 Blood Pressure [Ri ght Upper Arm] Pulse Oximetry 100 100 98 Oxygen Delivery Me thod Room Air 11/30/23 04:26 Temperature Pulse Rate Pulse Rate [Pulse Oximeter] 69 Respiratory Rate 16 Blood Pressure Blood Pressure [Ri ght Arm] 105/61 Blood Pressure [Ri ght Upper Arm] Pulse Oximetry 97 Oxygen Delivery Me thod Room Air Labs Labs: Laboratory Results - last 24 hr 11/29/23 11/29/23 11/29/23 18:40 21:39 22:33 WBC 8.20 RBC 5.17 Hgb 14.4 Hct 42.8 MCV 83 MCH 28 MCHC 34 RDW Coeff of Declan 12.2 Plt Count 380 Neut % (Auto) 64.4 Lymph % (Auto) 28.3 Putnam % (Auto) 5.2 Eos % (Auto) 1.6 Baso % (Auto) 0.5 Neut # (Auto) 5.28 Lymph # (Auto) 2.32 Putnam # (Auto) 0.40 Eos # (Auto) 0.13 Baso # (Auto) 0.04 Abs Immat Gran (auto) 0.00 Imm/Tot Granulo (auto) 0.0 Sodium 139 Potassium 3.9 Chloride 109 Carbon Dioxide 23 Anion Gap 7 BUN 10 Creatinine 0.8 Estimated Creat Clear 84.88 Estimated GFR 94 Glucose 87 Lactate 1.7 Calcium 8.5 Magnesium 2.0 Total Bilirubin 0.7 AST 18 ALT 19 Alkaline Phosphatase 52 Total Protein 7.3 Albumin 4.2 Lipase 152 Lab Acknowledgement Test Added
[2023-11-30 11:45] VITALS: BP 118/72; PULSE 78; RESP 16; TEMP 36.8; O2SAT 97
[2023-11-30] MEDS: METOCLOPRAMIDE HCL 5 MG/ML INJ 10 MG IVP ×2 (12:00→17:45)
[2023-11-30 15:30] VITALS: BP 132/82; PULSE 65; RESP 16; TEMP 36.8; O2SAT 95
[2023-11-30] MEDS: ONDANSETRON 2 MG/ML inj 4 MG IVP ×2 (16:04→21:33)
[2023-11-30 19:38] VITALS: BP 129/71; PULSE 64; RESP 18; TEMP 36.7; O2SAT 94
[2023-11-30 22:53] VITALS: BP 132/73; PULSE 66; RESP 16; TEMP 36.9; O2SAT 96
[2023-12-01] MEDS: ONDANSETRON 2 MG/ML inj 4 MG IVP ×2 (01:47→08:37)
[2023-12-01] MEDS: ACETAMINOPHEN 325 MG TABLET 650 MG PO ×2 (01:47→10:00)
[2023-12-01 03:00] VITALS: BP 140/81; PULSE 67; RESP 16; O2SAT 96
[2023-12-01] MEDS: HYDROmorphone 2 MG TABLET 4 MG PO ×2 (04:43→08:36)
[2023-12-01] MEDS: LACTATED RINGERS 1000 ML 1,000 ML 150 ML IV (05:09)
--- NOTE | 2023-12-01 06:43 | PC.NURSE ---
End of shift [id number]: A&O pleasant and cooperative. Having episode of nausea and x2 emesis overnight. See eMAR for interventions. Reporting abd pain 3-510. See eMAR for intervention. Up at calvin.
[2023-12-01] MEDS: HYDROmorphone 0.5 mg/0.5 ml inj 1 MG IVP (06:46)
[2023-12-01 08:39] VITALS: BP 125/78; PULSE 70; RESP 18; TEMP 36.6; O2SAT 98
[2023-12-01] MEDS: DULOXETINE 30 MG CAPSULE DR 60 MG PO (09:59)
[2023-12-01 11:00] VITALS: BP 140/82; PULSE 78; RESP 16; TEMP 36.6; O2SAT 98
--- NOTE | 2023-12-01 11:47 | NUTR.NU ---
RDN with diet education related to pancreatitis. Patient admitted for pancreatitis. Past medical history includes Sphincter of Oddi dysfunction. Current weight 215 lbs 6oz; height 5ft 6in; BMI 34.8 kg/m2. Weight has been stable. Diet is currently Regular. RDN visited with patient whom reports receiving diet education related to pancreatitis multiples times in the past. She received diet education for this in March 2023. Offered diet education however patient refused. Did accept educational materials. RDNs contact information provided and patient was encouraged to call with questions.
--- NOTE | 2023-12-01 12:45 | P.DS_ITS ---
DS: Providers Provider Time Seen by Provider: 08:06 Date Seen: 12/01/23 Date of admission: 11/29/23 21:15 Primary care physician: Not a Local Provider Admitting Clinician: Omar Jackson MD Attending Physician on discharge: Pita Springer MD Date of Discharge: 12/01/23 DS: Diagnosis Discharge Diagnosis (1) Abdominal pain: Status: Acute Problem details: Acute abdominal pain likely related to her pancreatitis and sphincter of oddi dysfunction. Lipase unremarkable. Developed plan for acute management of this with plan to go to the [place] next Friday for nerve block for chronic management. - 11/29 Remains painful and nauseous. Continue observation, increase IVF, continue IV pain medications and antiemetics as needed. Clear liq diet. - 11/30 hungry, no more nausea, pain less. Advance diet, use only oral pain meds, discharge home today if continues to do well. (2) Sphincter of Oddi dysfunction: Status: Acute Problem details: History of recurrent ERCP and stenting and sphincterotomy. Refer back to [facility] if not getting better DS: Summary Hospital Course Hospital Course: Per H&P: Tatum Taylor is a 42 year old female 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 About 3 days ago she started having mid epigastric pain that radiates a little bit to the left upper quadrant. She has been taking dilaudid 4 mg every 6 hours without adequate relief. She has not had vomiting but she does have constant nausea and she has been eating and drinking poorly. She has had some diarrhea. No blood in her stool. She was recently diagnosed with exocrine pancreatic insufficiency and has been prescribed pancrelipase but she has not yet received her prescription in the mail from the [place]. She has had multiple ERCP procedures. The most recent was April of 2023 when she had a pancreatic stent placed at [facility]. She was briefly hospitalized here after that episode with a flare of pancreatitis. She is now transferred her care to the [facility] in [place]. They have done a nerve block in April or May 2023 which was effective at controlling her pain. She has not had significant pain problems except a brief episode in August. At that time she went to the [place] emergency department but was not admitted. She previously was on chronic opioids but has been weaned off chronic opioids as of May 2023. Her last prescription of hydromorphone was for 2 mg tablets, number 30, on 06/11/2023. She improved over the next two days and is discharging home today with her usual opioids for pain, tolerating a general diet. [facility]. Time Spent with Patient Time attestation: Total time spent providing and/or coordinating discharge services: Exam Narrative: Exam Narrative: General: No acute distress. Awake, alert, oriented x3. No pallor. No jaundice. Oropharynx: Clear. Mucous membranes moist. Cardiovascular: Regular rate and rhythm. No murmurs, gallops, or rubs. Respiratory: Clear to auscultation bilaterally. No wheezes or crackles. Abdomen: Bowel sounds present. Soft, nondistended, nontender. Extremities: No pedal edema. Const: Vital Signs, click to edit/add: Vital Signs - 24 hr 11/30/23 15:30 11/30/23 15:30 11/30/23 19:38 Temperature 98.3 F 98.1 F Pulse Rate [Pulse Oximeter] 65 65 64 Respiratory Rate 16 16 18 Blood Pressure [Ri ght Arm] 132/82 129/71 Pulse Oximetry 95 94 Oxygen Delivery Me thod Room Air Room Air 11/30/23 22:53 12/01/23 03:00 12/01/23 08:39 Temperature 98.5 F 98 F Pulse Rate [Pulse Oximeter] 66 67 70 Respiratory Rate 16 16 18 Blood Pressure [Ri ght Arm] 132/73 140/81 H 125/78 Pulse Oximetry 96 96 98 Oxygen Delivery Me thod Room Air Room Air Room Air DS: Data Data Completed and Pending Completed studies during hospitalization: 11/29/23 CBC, CMP, and lipase were within normal limits. Discharge Plan Discharge Disposition: Home, Self-Care Date of Admission: 11/29/23 21:15 Attending Provider on Discharge: Pita Springer Primary Care Provider: Provider,Not a Local Condition: Unchanged Anticipated Discharge Date/Time: 12/01/23 15:00 Discharge Medications: Continued albuterol sulfate 90 mcg/actuation HFA aerosol inhaler 2 puff INHALATION QID PRN (Reason: shortness of breath or wheezing) hyoscyamine sulfate 0.125 mg tablet, sublingual 0.125 mg PO TID PRN duloxetine 30 mg capsule,delayed release(DR/EC) 60 mg PO DAILY lorazepam [Ativan] 0.5 mg tablet 0.5 mg PO Q8H PRN diphenhydramine HCl [Benadryl] 25 mg capsule 50 mg PO DAILY PRN Rx Instructions: take 2 capsule by ORAL route every day as needed atorvastatin 40 mg tablet 40 mg PO DAILY cetirizine 5 mg tablet 5 mg PO QAM Rx Instructions: PRN ALLERGIC REACTIONS clonidine HCl 0.1 mg tablet 0.1 mg PO BID PRN fexofenadine 180 mg tablet 180 mg PO BID omega [id number] oil [Fish Oil] 1,000 mg (120 mg-180 mg) capsule 1 cap PO QAM Rx Instructions: FOR HIGH TRIGLYCERIDES ondansetron 4 mg tablet,disintegrating 4 mg PO Q6H PRN hydromorphone 2 mg Tablet 4 mg PO Q6H PRN prednisone 50 mg tablet 100 mg PO ONCE PRN Rx Instructions: TAKE ONCE FOR ANAPHYLAXIS WITH 10MG CETIRIZINE FOR SEVERE ALLERGIC REACTION epinephrine 0.3 mg/0.3 mL auto-injector 0.3 mg IM ONCE PRN (Reason: allergies) tacrolimus [Protopic] 0.1 % ointment 1 applic topical BID PRN Hold Instructions: Doctor's Order Discharge Orders: Discharge Order (Routine); Ordered 12/01/23 Ordered By: Pita Springer Additional Instructions: [facility] Activity Level: No Restrictions Discharge Diet: Regular Follow Up Appointments: Provider,Not a Local [Primary Care Provider] - (as needed) Forms: [employer] Info Instructions
--- NOTE | 2023-12-01 15:28 | PC.NURSE ---
shift note: pt up indept in room. pt medicated x1 for abd pain this a.m with relief. IV dc'd intact. Reviewed dc instructions and copies sent with pt. Belongings sent with pt
== END 2023-12-01 14:35 | disposition home or self-care (01) ==
LOC: ED 20:37 → MEDSURG 21:16
PROVIDERS: Admitting Provider Family Medicine; Emergency Provider Emergency Medicine Emergency Medical Services; Visit Provider Family Medicine
DX: K83.4 Spasm of sphincter of Oddi (principal); K86.1 Other chronic pancreatitis; K86.81 Exocrine pancreatic insufficiency; R10.10 Upper abdominal pain, unspecified; G89.29 Other chronic pain; F11.90 Opioid use, unspecified, uncomplicated; D89.40 Mast cell activation, unspecified; E87.8 Other disorders of electrolyte and fluid balance, not elsewhere classified; K21.9 Gastro-esophageal reflux disease without esophagitis; R11.0 Nausea; Z90.89 Acquired absence of other organs; Z90.49 Acquired absence of other specified parts of digestive tract; Z96.89 Presence of other specified functional implants; Z87.19 Personal history of other diseases of the digestive system; Z87.891 Personal history of nicotine dependence; Z98.890 Other specified postprocedural states
CPT/HCPCS: 36415; 80053; 83605; 83690; 83735; 85025; 96361; 96374; 96375; 96376; 99284; 99285; A9270; G0378; J1170; J2405; J2765; J7030; J7120

== ENCOUNTER 2023-12-20 23:11 | Emergency (ER) | payer OTHER, SELFPAY ==
--- NOTE | 2023-12-20 23:21 | CRLHL7_ITS ---
For Patients: As a result of the Century Cures Act, medical imaging exams and procedure reports are released immediately into your electronic medical record. You may view this report before your referring provider. If you have questions, please contact your health care provider. INDICATION: Trauma. TECHNIQUE: Lumbar spine radiographs, 3 views. COMPARISON: None. FINDINGS: Normal lumbar lordosis. The vertebral body heights are maintained. Mild degenerative disc disease and mild facet degeneration at L5-S1, with minimal neural foraminal stenosis. The facet joints are otherwise unremarkable. No acute fractures or traumatic subluxation of the lumbar spine. Unremarkable bowel gas pattern. The visualized sacroiliac joints are unremarkable. IMPRESSION: No acute fractures or traumatic subluxation of the lumbar spine. Dictated by Abhilash Longo MD @ 12/21/2023 2:08:58 AM (Electronically Signed)
[2023-12-20 23:22] VITALS: BP 144/105; PULSE 100; RESP 16; TEMP 35.9; O2SAT 98
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
[2023-12-21] VITALS: BP 145/80; PULSE 72; RESP 16; TEMP 36.7; O2SAT 98
[2023-12-21] MEDS: KETOROLAC 30 MG/ML inj IM (00:08)
--- OUTSIDE RECORDS SUMMARY | 2023-12-21 01:02 | XMS_ITS | Continuity of Care Document ---
Author Name [facility] Organization [facility] Care Team Providers Care Act Tutor Name Role Phone [facility] Unavailable Unavailable Problems Combined list of problems [...] due for co-test in 5 years, 05/2025. [facility] Chronic idiopathic urticaria Active Condition Mar 27, 2023 Entered By: EMIR GRACIA Comment: with physical component , chronic illness- [facility] - 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 Mar 27, 2023 Entered By: EMIR GRACIA Comment: cholecystectomy and multiple ERCPs, followed [facility] in the past, - 2015 [facility] Family social history Active Condition Mar 27, 2023 Entered By: EMIR GRACIA Comment: , going through divorce,Mar 27, 2023 Entered By: EMIR GRACIA Comment: past surgical hx- Cholecystectomy,al ivett with prior dual sphincterotomies or sphincter motor dysfunction , ERCP with pancreatic manometry on 11/28/2015Sep 2022 Entered By: EMIR GRACIA Comment: Former SmokerSep 2022 Entered By: EMIR GRACIA Comment: 2 children, 2 step children,Mar 27, 2023 Entered By: EMIR GRACIA 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 Entered By: EMIR GRACIA Comment: Grandmother- utrine cancer, mother and father- CAD, DM2 , siblings- strong autoimmune [facility] Generalized anxiety disorder Active Condition [facility] History of post-traumatic stress disorder Active Condition Mar 27, 2023 Entered By: EMIR GRACIA Comment: [facility] team [facility] Hyperlipidemia Active Condition Mar Entered By: EMIR GRACIA Comment: On statin [facility] Major depressive disorder Active Condition [facility] No significant change since previous mammogram Active Condition Apr 02, 2023 Entered By: EMIR GRACIA Comment: recent mammo on 04/01/23-ACR BI-RADS Category 1 - Negative. [facility] Posttraumatic stress disorder Active Condition [facility] closed stress fracture of tibia Active Condition Stretches order ed and demonstrated. DoD ankle joint pain Inactive Condition Pow er Steps issued. DoD visit for: issue repeat prescription Inactive Condition DoD routine examination Inactive Condition [facility] headache syndromes Active Condition [facility] head injury Active Condition [facility] ankle sprain Inactive Condition 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 Patient Education - Injury Prevention Inactive Condition [facility] assess patient condition work-related occupational disease Inactive Condition DoD visit for: ears / hearing exam Active Condition [facility] Diagnosis: ICD-10-CM F43.12 Post-traumatic stress disorder, chronic Active Diagnosis [facility] Diagnosis: ICD-10-CM G89.4 Chronic pain syndrome Active Diagnosis [facility] Diagnosis: ICD-10-CM R10.9 Unspecified abdominal pain Active Diagnosis [facility] Diagnosis: ICD-10-CM K86.1 Other chronic pancreatitis Active Diagnosis [facility] Diagnosis: ICD-10-CM R19.7 Diarrhea, unspecified Active Diagnosis [facility] Diagnosis: ICD-10-CM R10.10 Upper abdominal pain, unspecified Active Diagnosis [facility] Diagnosis: ICD-10-CM G89.29 Other chronic pain Active Diagnosis [facility] Diagnosis: ICD-10-CM Z46.1 Encounter for fitting and adjustment of hearing aid Active Diagnosis [facility] Diagnosis: ICD-10-CM Z01.118 Encntr for exam of ears and hearing w oth abnormal findings Active Diagnosis [facility] Diagnosis: ICD-10-CM Z00.00 Encntr for general adult medical exam w/o abnormal findings Active Diagnosis [facility] Diagnosis: ICD-10-CM Z71.89 Other specified counseling Active Diagnosis [facility] Medications Combined list of outpatient medications from [...] DAY NEEDED FOR SHORTNES S OF BREATH RESPIR ATORY (INHAL ATION) ACTIVE 04/02/2024 [id number] 3 PRESTON GRACIA 2022 2 [facility] ATORVASTATI N CA 20MG TAB TAKE ONE TABLET BY MOUTH AT BEDTIME FOR CHOLESTE ROL ORAL DISCONT INUED (EDIT) 03/27/2024 [id number] 3 PRESTON GRACIA 2022 90 [facility] ATORVASTATI N CA 40MG TAB TAKE ONE TABLET BY MOUTH AT BEDTIME FOR CHOLESTE ROL ORAL ACTIVE 06/05/2024 [id number] 3 PRESTON GRACIA 2022 90 [facility] CETIRIZINE HCL 5MG TAB TAKE ONE TABLET BY MOUTH EVERY MORNING NEEDED FOR ALLERGIC REACTION ORAL ACTIVE 04/02/2024 [id number] 3 PRESTON GRACIA 2022 90 [facility] Cetirizine Hydrochlori de (Zyrtec Eq.) Tablet 5 mg Oral TAKE ONE TABLET BY MOUTH EVERY MORNING NEEDED FOR ALLERGIC REACTION Active 04/02/2024 [id number] 3 EMIR GRACIA 2022 90 [place] [facility] CLONID[facility]CL 0.1MG TAB TAKE ONE TABLET BY MOUTH TWICE A DAY NEEDED FOR PAIN ORAL ACTIVE 05/09/2024 [id number] 3 BETZY BOUDREAUX 2022 60 [place] [facility] CYCLOBENZAP RINE HCL 5MG TAB TAKE 1-2 TABLETS BY MOUTH THREE TIMES A DAY NEEDED FOR MUSCLE SPASMS ORAL DISCONT INUED 03/27/2024 [id number] 3 PRESTON GRACIA 2022 180 [facility] DICYCLOMINE HCL 10MG CAP TAKE ONE CAPSULE BY MOUTH THREE TIMES A DAY NEEDED FOR PAIN ORAL ACTIVE 05/09/2024 [id number] 3 BETZY BOUDREAUX 2022 90 [place] [facility] DULOXET[facility] HCL 60MG CAP,EC TAKE ONE CAPSULE BY MOUTH EVERY DAY FOR MOOD ORAL ACTIVE 03/27/2024 [id number] 3 PRESTON GRACIA 2022 90 [facility] EPINEPHRINE (EQV-EPI-PE N) 0.3MG/0.3ML INJECTOR INJECT 1 PEN DIRECTED NEEDED FOR ALLERGIC REACTION ACTIVE 03/27/2024 [id number] 3 PRESTON GRACIA 2022 2 [facility] FEXOFENADIN E HCL 180MG TAB TAKE ONE TABLET BY MOUTH TWICE A DAY FOR ALLERGIE S ORAL ACTIVE 05/07/2024 [id number] 3 PRESTON GRACIA 2022 180 [facility] FEXOFENADIN E HCL 60MG TAB TAKE ONE TABLET BY MOUTH TWICE A DAY FOR ALLERGIE S ORAL DISCONT INUED (EDIT) 04/02/2024 [id number] 3 PRESTON GRACIA 2022 180 [facility] Fexofenadin e Hydrochlori de (Lyssa) Tablet 60 mg Oral TAKE ONE TABLET BY MOUTH TWICE A DAY FOR ALLERGIE S Active 04/02/2024 [id number] 3 EMIR GRACIA 2022 180 [place] [facility] FISH OIL 1000MG (500MG DHA/EPA) CAP,ORAL TAKE ONE CAPSULE BY MOUTH EVERY MORNING FOR HIGH TRIGLYCE RIDES ORAL ACTIVE 06/05/2024 [id number] 3 PRESTON GRACIA 2022 100 [facility] FLUTICASONE 250MCG/SALM ETEROL 50MCG INHL,ORAL,D ISKUS,60 INHALE 1 PUFF BY INHALATI ON TWICE A DAY FOR ASTHMA - RINSE MOUTH AFTER USE RESPIR ATORY (INHAL ATION) 05/26/2023 [id number] 3 PRESTON GRACIA 2022 2 [facility] [...] ONE TABLET EVERY DAY FOR 2 DAYS ORAL DISCONT INUED 06/14/2023 [id number] 3 BETZY BOUDREAUX 2022 42 [place] [facility] HYDROMORPHO NE HCL 2MG TAB TAKE THREE TABLETS BY MOUTH THREE TIMES A DAY NEEDED FOR PAIN FOLLOW TAPER REGIMEN PROVIDED IN CLINIC ORAL DISCONT INUED 06/08/2023 [id number] 3 BETZY BOUDREAUX 2022 36 [place] [facility] HYDROMORPHO NE HCL 2MG TAB TAKE ONE TABLET BY MOUTH EVERY 4 HOURS NEEDED FOR PAIN FOR MANAGEME NT OF ACUTE FLARES OF SEVERE PAIN. USE FOR PAIN NOT WELL MANAGED WITH OTHER CONSERVA TIVE MEASURES . FOR MANAGEME NT OF ACUTE FLARES OF SEVERE PAIN. USE FOR PAIN NOT WELL MANAGED WITH OTHER CONSERVA TIVE MEASURES . ORAL 07/11/2023 [id number] 3 BETZY BOUDREAUX 2022 30 [place] [facility] HYDROMORPHO NE HCL 2MG TAB TAKE TWO TABLETS BY MOUTH EVERY 6 HOURS NEEDED ORAL ACTIVE PRESTON GRACIA 2022 [facility] HYDROXYZINE HCL 25MG TAB TAKE ONE TABLET BY MOUTH AT BEDTIME NEEDED FOR ANXIETY ORAL 04/26/2023 [id number] PRESTON GRACIA 2022 20 [facility] HYOSCYAMINE TAB,SUBLING UAL DISSOLVE UNDER THE TONGUE THREE TIMES A DAY NEEDED SUBLIN GUAL ACTIVE PRESTON GRACIA 2022 [facility] IBUPROFEN 800MG TAB TAKE ONE TABLET BY MOUTH THREE TIMES A DAY NEEDED FOR PAIN ORAL HOLD 03/27/2024 [id number] 3 PRESTON GRACIA 2022 180 [facility] LORAZEPAM 0.5MG TAB TAKE ONE TABLET BY MOUTH EVERY 8 HOURS NEEDED ORAL ACTIVE PRESTON GRACIA 2022 [facility] METHYLPREDN ISOLONE 4MG TAB DOSEPAK,21 TAKE ACCORDIN G TO DIRECTIO NS IN PACKAGE BY MOUTH DIRECTED FOR ASTHMA/S EVERE ALLERGY FLARE ORAL DISCONT INUED 03/27/2024 [id number] 3 PRESTON GRACIA 2022 1 [facility] MOXIFLOXACI N (moxifloxac in HCl), 0.5 %, DROPS, OPHTHALMIC, LUPIN PHARMACEU, 3 ml DROP BTL Active [id number] 2023 3 Pharmac y [facility] y ONDANSETRON HCL 4MG TAB TAKE ONE TABLET BY MOUTH EVERY 6 HOURS NEEDED FOR NAUSEA AND VOMITING ORAL ACTIVE 11/19/2024 [id number] 4 NELSON LOMBARDO 2023 20 [place] [facility] ONDANSETRON HCL 4MG TAB TAKE ONE TABLET BY MOUTH EVERY 6 HOURS NEEDED FOR NAUSEA AND VOMITING ORAL DISCONT INUED 03/27/2024 [id number] 3 PRESTON GRACIA 2022 30 [facility] PREDNISONE 50MG TAB TAKE TWO TABLETS BY MOUTH NEEDED ONCE FOR ANAPHYLA XIS- TAKE IMMEDIAT NISA 100MG PREDNISO NE AND 2 TABS CETIRIZI NE (5MG EACH) FOR SEVERE ALLERGIC REACTION ORAL ACTIVE 03/27/2024 [id number] 3 PRESTON GRACIA 2022 30 [facility] TACROLIMUS 0.1% OINT,TOP APPLY THIN LAYER TOPICALL Y TWICE A DAY NEEDED FOR SEVERE ITCHING/ DERMATIT IS TOPICA L HOLD 03/27/2024 [id number] PRESTON GRACIA 2022 30 [facility] TOBRAMYCIN- DEXAMETHASO NE (TOBRAMYCIN /DEXAMETHAS ONE), 0.3 %-0.1%, DROPS SUSP, OPHTHALMIC, VORA PHARMACE, 2.5 ml DROP BTL Active [id number] 2023 2.5 Pharmac y Data Transac tion Service Facilit y Allergies, Adverse Reactions, Alerts Combined list of allergies from 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 It does not include entries that were removed or entered in error. Substance Category Reaction Severity Reaction type Status Date Reported Comments Source FENTANYL Propensity to adverse reactions to drug (finding) Abdominal pain SEVERE active 3 [facility] FLUARIX (INFLUENZA TVS 12-25 VACCINE/PF ) Drug allergy (disorder) Unknown active 7 [place], [place] INFLUENZA Propensity to adverse reactions to drug (finding) Anaphylaxis SEVERE active 3 [facility] MIRALAX Propensity to adverse reactions to drug (finding) Anaphylaxis SEVERE active 3 [facility] PFIZER COVID-19 VACCINE (EUA) Propensity to adverse reactions to drug (finding) Anaphylaxis, Urticaria, Itching, Dyspnea SEVERE active 3 [facility] Immunizations Combined list of available immunizations from the Department of [facility] ([place], [place]) and Veterans [facility] facilities. Immunization Series Date Given Administered By Site Reaction Lot Number CVX Code Drug Senior Patient Account Representative Status Comments Source COVID-19 (STEPHANIE), VECTOR-NR, RS-AD26, PF, 0.5 ML 4 2021 212 complet ed [facility] COVID-19 (STEPHANIE), VECTOR-NR, RS-AD26, PF, 0.5 ML 3 2021 212 complet ed [facility] COVID-19 vaccine, vector-nr, rS-Ad26, PF, 0.5 mL 2021 ATTARIAN, () Not Given COVID-19 vaccine, vector-nr , rS-Ad26, PF, 0.5 mL DoD COVID-19 vaccine, vector-nr, rS-Ad26, PF, 0.5 mL 2021 ATTARIAN, [employer] (JSN) Not Given COVID-19 vaccine, vector-nr , rS-Ad26, PF, 0.5 mL DoD COVID-19 (STEPAHNIE), VECTOR-NR, RS-AD26, PF, 0.5 ML 2 2020 212 complet ed [facility] COVID-19 (PFIZER), MRNA, LNP-S, PF, 30 MCG/0.3 ML DOSE 1 2019 208 complet ed [facility] TD (ADULT) 2016 138 complet ed [facility] TD (ADULT), 5 LF TETANUS TOXOID, PRESERVATIVE FREE, ADSORBED 2016 113 complet ed [facility] TDAP 2006 115 complet ed [facility] Results Combined list of recent chemistry, hematology and other laboratory results from Department of Defense and Veterans Affairs, ranging from 15 months to all on record, depending upon the facility. Order Name Results Value Reference Range Date Interpretation Specimen Comments Source EXTRA RED TUBE EXTRA RED TUBE RECEIVED 12/04 Specimen Type: SERUM No comment entered. Ordering Provider: NELSON FERRO Report Released Date/Time: December 05, 2023 02:39 PM Reporting Lab: [place] [phone] Performing Lab: [place] [id number] [facility] CODE BLUE(LYT E,CR,UN, GL,MG,CA ,PHOS,TR OP) CREATININE [MASS/VOLU ME] IN SERUM OR PLASMA 1.1 mg/dL 0.5 - 1.0 12/04 H Specimen Type: PLASMA No comment entered. Ordering Provider: NELSON FERRO Report Released Date/Time: December 05, 2023 02:27 PM Reporting Lab: [facility] [phone] Performing Lab: [place] [phone] [facility] CODE BLUE(LYT E,CR,UN, GL,MG,CA ,PHOS,TR OP) UREA NITROGEN [MASS/VOLU ME] IN SERUM OR PLASMA 10 mg/dL 7 - 20 12/04 Specimen Type: PLASMA No comment entered. Ordering Provider: NELSON FERRO Report Released Date/Time: December 05, 2023 02:27 PM Reporting Lab: [facility] [phone] Performing Lab: [place] [phone] [facility] CODE BLUE(LYT E,CR,UN, GL,MG,CA ,PHOS,TR OP) GLUCOSE [MASS/VOLU ME] IN SERUM OR PLASMA 101 mg/dL 70 - 100 12/04 H Specimen Type: PLASMA No comment entered. Ordering Provider: NELSON FERRO Report Released Date/Time: December 05, 2023 02:27 PM Reporting Lab: [facility] [address] Performing Lab: [place] [phone] [place] [facility] CODE BLUE(LYT E,CR,UN, GL,MG,CA ,PHOS,TR OP) SODIUM [MOLES/VOL UME] IN SERUM OR PLASMA 138 mmol/L 136 - 145 12/04 Specimen Type: PLASMA No comment entered. Ordering Provider: NELSON FERRO Report Released Date/Time: December 05, 2023 02:27 PM Reporting Lab: [facility] [address] Performing Lab: [place] [phone] [facility] CODE BLUE(LYT E,CR,UN, GL,MG,CA ,PHOS,TR OP) POTASSIUM [MOLES/VOL UME] IN SERUM OR PLASMA 3.8 mmol/L 3.5 - 5.1 12/04 Specimen Type: PLASMA No comment entered. Ordering Provider: NELSON FERRO Report Released Date/Time: December 05, 2023 02:27 PM Reporting Lab: [facility] [address] Performing Lab: [facility] [address] [place] [facility] CODE BLUE(LYT E,CR,UN, GL,MG,CA ,PHOS,TR OP) CHLORIDE [MOLES/VOL UME] IN SERUM OR PLASMA 107 mmol/L 98 - 107 12/04 Specimen Type: PLASMA No comment entered. Ordering Provider: NELSON FERRO Report Released Date/Time: December 05, 2023 02:27 PM Reporting Lab: [facility] [phone] Performing Lab: [facility] [phone] [place] [facility] CODE BLUE(LYT E,CR,UN, GL,MG,CA ,PHOS,TR OP) CARBON DIOXIDE, TOTAL [MOLES/VOL UME] IN SERUM OR PLASMA 22 mmol/L 22 - 29 12/04 Specimen Type: PLASMA No comment entered. Ordering Provider: NELSON FERRO Report Released Date/Time: December 05, 2023 02:27 PM Reporting Lab: [place] [phone] Performing Lab: [place] [phone] [facility] CODE BLUE(LYT E,CR,UN, GL,MG,CA ,PHOS,TR OP) CALCIUM [MASS/VOLU ME] IN SERUM OR PLASMA 9.3 mg/dL 8.4 - 10.2 12/04 Specimen Type: PLASMA No comment entered. Ordering Provider: NELSON FERRO Report Released Date/Time: December 05, 2023 02:27 PM Reporting Lab: [place] [phone] Performing Lab: [place] [phone] [facility] CODE BLUE(LYT E,CR,UN, GL,MG,CA ,PHOS,TR OP) PHOSPHATE [MASS/VOLU ME] IN SERUM OR PLASMA 3.5 mg/dL 2.3 - 4.7 12/04 Specimen Type: PLASMA No comment entered. Ordering Provider: NELSON FERRO Report Released Date/Time: December 05, 2023 02:27 PM Reporting Lab: [place] [phone] Performing Lab: [place] [phone] [facility] CODE BLUE(LYT E,CR,UN, GL,MG,CA ,PHOS,TR OP) MAGNESIUM [MASS/VOLU ME] IN SERUM OR PLASMA 1.9 mg/dL 1.6 - 2.6 12/04 Specimen Type: PLASMA No comment entered. Ordering Provider: NELSON FERRO Report Released Date/Time: December 05, 2023 02:27 PM Reporting Lab: [place] [phone] Performing Lab: [place] [phone] [facility] CODE BLUE(LYT E,CR,UN, GL,MG,CA ,PHOS,TR OP) ANION GAP IN SERUM OR PLASMA 9 mmol/L 5 - 15 12/04 Specimen Type: PLASMA No comment entered. Ordering Provider: NELSON FERRO Report Released Date/Time: December 05, 2023 02:27 PM Reporting Lab: [facility] [address] Performing Lab: [facility] [phone] [facility] CODE BLUE(LYT E,CR,UN, GL,MG,CA ,PHOS,TR OP) GLOMERULAR FILTRATION RATE/1.73 SQ M.PREDICTE D [VOLUME RATE/AREA] IN SERUM, PLASMA OR BLOOD BY CREATININE -BASED FORMULA (CKD-EPI 2020) 64 60 12/04 Specimen Type: PLASMA No comment entered. Ordering Provider: NELSON FERRO Report Released Date/Time: December 05, 2023 02:27 PM Reporting Lab: [facility] [phone] Performing Lab: [facility] [phone] [facility] CODE BLUE(LYT E,CR,UN, GL,MG,CA ,PHOS,TR OP) TROPONIN I.CARDIAC [MASS/VOLU ME] IN SERUM OR PLASMA <3 <14 - 14 12/04 Specimen Type: PLASMA No comment entered. Ordering Provider: NELSON FERRO Report Released Date/Time: December 05, 2023 02:27 PM Reporting Lab: [facility] [address] Performing Lab: [facility] [phone] [facility] LACTIC ACID LACTATE [MOLES/VOL UME] IN SERUM OR PLASMA 1.7 mmol/L 0.5 - 2.2 12/04 Specimen Type: PLASMA No comment entered. Ordering Provider: NELSON FERRO Report Released Date/Time: December 05, 2023 02:27 PM Reporting Lab: [facility] [address] Performing Lab: [facility] [phone] [facility] CBC LEUKOCYTES [#/VOLUME] IN BLOOD BY AUTOMATED COUNT 11.50 10*3/uL 4.0 - 11.0 12/04 H Specimen Type: BLOOD No comment entered. Ordering Provider: NELSON FERRO Report Released Date/Time: December 05, 2023 02:27 PM Reporting Lab: [facility] [phone] Performing Lab: [facility] [phone] [place] [facility] CBC ERYTHROCYT ES [#/VOLUME] IN BLOOD BY AUTOMATED COUNT 4.83 10*6/uL 4.0 - 5.4 12/04 Specimen Type: BLOOD No comment entered. Ordering Provider: NELSON FERRO Report Released Date/Time: December 05, 2023 02:27 PM Reporting Lab: [facility] [phone] Performing Lab: [facility] [phone] [place] [facility] CBC HEMOGLOBIN [MASS/VOLU ME] IN BLOOD 13.6 g/dL 11.5 - 16 12/04 Specimen Type: BLOOD No comment entered. Ordering Provider: NELSON FERRO Report Released Date/Time: December 05, 2023 02:27 PM Reporting Lab: [facility] [address] Performing Lab: [facility] [phone] [place] [facility] CBC HEMATOCRIT [VOLUME FRACTION] OF BLOOD BY AUTOMATED COUNT 39.8 34.5 - 48 12/04 Specimen Type: BLOOD No comment entered. Ordering Provider: NELSON FERRO Report Released Date/Time: December 05, 2023 02:27 PM Reporting Lab: [facility] [phone] Performing Lab: [facility] [phone] [place] [facility] CBC MCV [ENTITIC VOLUME] BY AUTOMATED COUNT 82.4 fL 80 - 100 12/04 Specimen Type: BLOOD No comment entered. Ordering Provider: NELSON FERRO Report Released Date/Time: December 05, 2023 02:27 PM Reporting Lab: [facility] [address] Performing Lab: [facility] [address] [place] [facility] CBC MCH [ENTITIC MASS] BY AUTOMATED COUNT 28.2 pg 27 - 33 12/04 Specimen Type: BLOOD No comment entered. Ordering Provider: NELSON FERRO Report Released Date/Time: December 05, 2023 02:27 PM Reporting Lab: [facility] [address] Performing Lab: [facility] [address] [place] [facility] CBC MCHC [MASS/VOLU ME] BY AUTOMATED COUNT 34.2 g/dL 32.0 - 37.5 12/04 Specimen Type: BLOOD No comment entered. Ordering Provider: NELSON FERRO Report Released Date/Time: December 05, 2023 02:27 PM Reporting Lab: [facility] [phone] Performing Lab: [facility] [phone] [facility] CBC PLATELETS [#/VOLUME] IN BLOOD BY AUTOMATED COUNT 443 10*3/uL 150 - 400 12/04 H Specimen Type: BLOOD No comment entered. Ordering Provider: NELSON FERRO Report Released Date/Time: December 05, 2023 02:27 PM Reporting Lab: [facility] [address] Performing Lab: [facility] [phone] [place] [facility] CBC PLATELET MEAN VOLUME [ENTITIC VOLUME] IN BLOOD BY AUTOMATED COUNT 9.1 fL 7.4 - 10.4 12/04 Specimen Type: BLOOD No comment entered. Ordering Provider: NELSON FERRO Report Released Date/Time: December 05, 2023 02:27 PM Reporting Lab: [facility] [address] Performing Lab: [facility] [address] [place] [facility] CBC ERYTHROCYT E DISTRIBUTI ON WIDTH [RATIO] BY AUTOMATED COUNT 12.5 11.5 - 14.5 12/04 Specimen Type: BLOOD No comment entered. Ordering Provider: NELSON FERRO Report Released Date/Time: December 05, 2023 02:27 PM Reporting Lab: [facility] [phone] Performing Lab: [facility] [phone] [place] [facility] PROTHROM BIN TIME/INR INR IN PLATELET POOR PLASMA BY COAGULATIO N ASSAY 1.2 0.8 - 1.1 12/04 H Specimen Type: PLASMA No comment entered. Ordering Provider: NELSON FERRO Report Released Date/Time: December 05, 2023 02:27 PM Reporting Lab: [facility] [address] Performing Lab: [facility] [address] [place] [facility] PROTHROM BIN TIME/INR PROTHROMBI N TIME (PT) 13.5 s 9.4 - 12.5 12/04 H Specimen Type: PLASMA No comment entered. Ordering Provider: NELSON FERRO Report Released Date/Time: December 05, 2023 02:27 PM Reporting Lab: [facility] [address] Performing Lab: [facility] [address] [facility] EXTRA GOLD GEL TUBE EXTRA GOLD GEL TUBE RECEIVED 12/04 Specimen Type: SERUM No comment entered. Ordering Provider: NELSON FERRO Report Released Date/Time: December 05, 2023 02:39 PM Reporting Lab: [facility] [address] Performing Lab: [facility] [address] [place] [facility] POC ABG/ELEC TROLYTES PH OF VENOUS BLOOD 7.382 7.31 - 7.41 12/04 Specimen Type: VENOUS BLOOD Comment: FIO2 = 40% Patient Temp: 36.6 C Sample Type = VENOUS Ordering Provider: ULYSSES ELDER Report Released Date/Time: December 06, 2023 08:24 PM Reporting Lab: [facility] [address] Performing Lab: [facility] [address] [place] [facility] POC ABG/ELEC TROLYTES CARBON DIOXIDE [PARTIAL PRESSURE] IN VENOUS BLOOD 35.0 mm[Hg] 41.00 - 51.00 12/04 L Specimen Type: VENOUS BLOOD Comment: FIO2 = 40% Patient Temp: 36.6 C Sample Type = VENOUS Ordering Provider: ULYSSES ELDER Report Released Date/Time: December 06, 2023 08:24 PM Reporting Lab: [facility] [address] Performing Lab: [facility] [address] [facility] POC ABG/ELEC TROLYTES OXYGEN [PARTIAL PRESSURE] IN VENOUS BLOOD 36 mm[Hg] 35.0 - 40.0 12/04 Specimen Type: VENOUS BLOOD Comment: FIO2 = 40% Patient Temp: 36.6 C Sample Type = VENOUS Ordering Provider: ULYSSES ELDER Report Released Date/Time: December 06, 2023 08:24 PM Reporting Lab: [facility] [address] Performing Lab: [facility] [address] [facility] POC ABG/ELEC TROLYTES CARBON DIOXIDE, TOTAL [MOLES/VOL UME] IN VENOUS BLOOD 22 mmol/L 24.0 - 29.0 12/04 L Specimen Type: VENOUS BLOOD Comment: FIO2 = 40% Patient Temp: 36.6 C Sample Type = VENOUS Ordering Provider: ULYSSES ELDER Report Released Date/Time: December 06, 2023 08:24 PM Reporting Lab: [facility] [address] Performing Lab: [facility] [address] [facility] POC ABG/ELEC TROLYTES BICARBONAT E [MOLES/VOL UME] IN VENOUS BLOOD 20.8 mmol/L 23.0 - 28.0 12/04 L Specimen Type: VENOUS BLOOD Comment: FIO2 = 40% Patient Temp: 36.6 C Sample Type = VENOUS Ordering Provider: ULYSSES ELDER Report Released Date/Time: December 06, 2023 08:24 PM Reporting Lab: [facility] [address] Performing Lab: [facility] [address] [facility] ABG/ELEC TROLYTES BASE EXCESS IN VENOUS BLOOD BY CALCCARINE N -4 mmol/L - 2 12/04 L Specimen Type: VENOUS BLOOD Comment: FIO2 = 40% Patient Temp: 36.6 C Sample Type = VENOUS Ordering Provider: ULYSSES ELDER Report Released Date/Time: December 06, 2023 08:24 PM Reporting Lab: [facility] [address] Performing Lab: [facility] [address] [facility] POC ABG/ELEC TROLYTES FRACTIONAL OXYHEMOGLO BIN IN VENOUS BLOOD 68 70 - 75 12/04 L Specimen Type: VENOUS BLOOD Comment: FIO2 = 40% Patient Temp: 36.6 C Sample Type = VENOUS Ordering Provider: ULYSSES ELDER Report Released Date/Time: December 06, 2023 08:24 PM Reporting Lab: [facility] [address] Performing Lab: [facility] [address] [facility] POC ABG/ELEC TROLYTES SODIUM [MOLES/VOL UME] IN VENOUS BLOOD 138 mmol/L 138.0 - 146.0 12/04 Specimen Type: VENOUS BLOOD Comment: FIO2 = 40% Patient Temp: 36.6 C Sample Type = VENOUS Ordering Provider: ULYSSES ELDER Report Released Date/Time: December 06, 2023 08:24 PM Reporting Lab: [facility] [address] Performing Lab: [facility] [address] [facility] POC ABG/ELEC TROLYTES POTASSIUM [MOLES/VOL UME] IN VENOUS BLOOD 4.0 mmol/L 3.50 - 4.90 12/04 Specimen Type: VENOUS BLOOD Comment: FIO2 = 40% Patient Temp: 36.6 C Sample Type = VENOUS Ordering Provider: ULYSSES ELDER Report Released Date/Time: December 06, 2023 08:24 PM Reporting Lab: [facility] [address] Performing Lab: [facility] [address] [facility] POC ABG/ELEC TROLYTES HEMOGLOBIN [MASS/VOLU ME] IN VENOUS BLOOD 14.3 g/dL 12.00 - 17.00 12/04 Specimen Type: VENOUS BLOOD Comment: FIO2 = 40% Patient Temp: 36.6 C Sample Type = VENOUS Ordering Provider: ULYSSES ELDER Report Released Date/Time: December 06, 2023 08:24 PM Reporting Lab: [facility] [address] Performing Lab: [facility] [address] [facility] POC ABG/ELEC TROLYTES HEMATOCRIT [VOLUME FRACTION] OF VENOUS BLOOD 42 38.0 - 51.0 12/04 Specimen Type: VENOUS BLOOD Comment: FIO2 = 40% Patient Temp: 36.6 C Sample Type = VENOUS Ordering Provider: ULYSSES ELDER Report Released Date/Time: December 06, 2023 08:24 PM Reporting Lab: [facility] [address] Performing Lab: [facility] [address] [facility] ABG/ELEC TROLYTES CALCIUM.IO NIZED [MASS/VOLU ME] IN VENOUS BLOOD 4.9 mg/dL 4.50 - 5.30 12/04 Specimen Type: VENOUS BLOOD Comment: FIO2 = 40% Patient Temp: 36.6 C Sample Type = VENOUS Ordering Provider: ULYSSES ELDER Report Released Date/Time: December 06, 2023 08:24 PM Reporting Lab: [facility] [address] Performing Lab: [facility] [address] [facility] ABG/ELEC TROLYTES PH OF VENOUS BLOOD ADJUSTED TO PATIENT'S ACTUAL TEMPERATUR E 7.388 7.31 - 7.41 12/04 Specimen Type: VENOUS BLOOD Comment: FIO2 = 40% Patient Temp: 36.6 C Sample Type = VENOUS Ordering Provider: ULYSSES ELDER Report Released Date/Time: December 06, 2023 08:24 PM Reporting Lab: [facility] [address] Performing Lab: [facility] [address] [facility] POC ABG/ELEC TROLYTES CARBON DIOXIDE [PARTIAL PRESSURE] ADJUSTED TO PATIENT'S ACTUAL TEMPERATUR E IN VENOUS BLOOD 34.4 mm[Hg] 41.00 - 51.00 12/04 L Specimen Type: VENOUS BLOOD Comment: FIO2 = 40% Patient Temp: 36.6 C Sample Type = VENOUS Ordering Provider: ULYSSES ELDER Report Released Date/Time: December 06, 2023 08:24 PM Reporting Lab: [facility] [address] Performing Lab: [facility] [address] [facility] ABG/ELEC TROLYTES OXYGEN [PARTIAL PRESSURE] ADJUSTED TO PATIENT'S ACTUAL TEMPERATUR E IN VENOUS BLOOD 35 mm[Hg] 35.0 - 40.0 12/04 Specimen Type: VENOUS BLOOD Comment: FIO2 = 40% Patient Temp: 36.6 C Sample Type = VENOUS Ordering Provider: ULYSSES ELDER Report Released Date/Time: December 06, 2023 08:24 PM Reporting Lab: [facility] [address] Performing Lab: [facility] [address] [place] [facility] EXTRA MINT TUBE EXTRA MINT TUBE RECEIVED 09/10 Specimen Type: PLASMA No comment entered. Ordering Provider: IRVING POWELL Report Released Date/Time: Sep 10, 2023 07:55 PM Reporting Lab: [facility] [address] Performing Lab: [facility] [address] [place] [facility] LIPASE LIPASE [ENZYMATIC ACTIVITY/V OLUME] IN SERUM OR PLASMA 68 U/L <60 - 60 09/10 H Specimen Type: PLASMA No comment entered. Ordering Provider: IRVING POWELL Report Released Date/Time: Sep 10, 2023 07:49 PM Reporting Lab: [facility] [address] Performing Lab: [facility] [address] [place] [facility] COMPREHE NSIVE METABOLI C PANEL+MG CREATININE [MASS/VOLU ME] IN SERUM OR PLASMA 1.0 mg/dL 0.5 - 1.0 09/10 Specimen Type: PLASMA No comment entered. Ordering Provider: IRVING POWELL Report Released Date/Time: Sep 10, 2023 07:49 PM Reporting Lab: [facility] [address] Performing Lab: [facility] [address] [place] [facility] COMPREHE NSIVE METABOLI C PANEL+MG UREA NITROGEN [MASS/VOLU ME] IN SERUM OR PLASMA 13 mg/dL 7 - 20 09/10 Specimen Type: PLASMA No comment entered. Ordering Provider: IRVING POWELL Report Released Date/Time: Sep 10, 2023 07:49 PM Reporting Lab: [facility] [address] Performing Lab: [facility] [address] [place] [facility] COMPREHE NSIVE METABOLI C PANEL+MG GLUCOSE [MASS/VOLU ME] IN SERUM OR PLASMA 94 mg/dL 70 - 100 09/10 Specimen Type: PLASMA No comment entered. Ordering Provider: IRVING POWELL Report Released Date/Time: Sep 10, 2023 07:49 PM Reporting Lab: [facility] [address] Performing Lab: [facility] [address] [place] [facility] COMPREHE NSIVE METABOLI C PANEL+MG SODIUM [MOLES/VOL UME] IN SERUM OR PLASMA 136 mmol/L 136 - 145 09/10 Specimen Type: PLASMA No comment entered. Ordering Provider: IRVING POWELL Report Released Date/Time: Sep 10, 2023 07:49 PM Reporting Lab: [facility] [address] Performing Lab: [facility] [address] [place] [facility] COMPREHE NSIVE METABOLI C PANEL+MG POTASSIUM [MOLES/VOL UME] IN SERUM OR PLASMA 3.8 mmol/L 3.5 - 5.1 09/10 Specimen Type: PLASMA No comment entered. Ordering Provider: IRVING POWELL Report Released Date/Time: Sep 10, 2023 07:49 PM Reporting Lab: [facility] [address] Performing Lab: [facility] [address] [place] [facility] COMPREHE NSIVE METABOLI C PANEL+MG CHLORIDE [MOLES/VOL UME] IN SERUM OR PLASMA 104 mmol/L 98 - 107 09/10 Specimen Type: PLASMA No comment entered. Ordering Provider: IRVING POWELL Report Released Date/Time: Sep 10, 2023 07:49 PM Reporting Lab: [facility] [address] Performing Lab: [facility] [address] [place] [facility] COMPREHE NSIVE METABOLI C PANEL+MG CARBON DIOXIDE, TOTAL [MOLES/VOL UME] IN SERUM OR PLASMA 21 mmol/L 22 - 29 02/21 /2024 L Specimen Type: PLASMA No comment entered. Ordering Provider: IRVING POWELL Report Released Date/Time: Sep 10, 2023 07:49 PM Reporting Lab: [facility] [address] Performing Lab: [facility] [address] [place] [facility] COMPREHE NSIVE METABOLI C PANEL+MG CALCIUM [MASS/VOLU ME] IN SERUM OR PLASMA 9.4 mg/dL 8.4 - 10.2 09/10 Specimen Type: PLASMA No comment entered. Ordering Provider: IRVNIG POWELL Report Released Date/Time: Sep 10, 2023 07:49 PM Reporting Lab: [facility] [address] Performing Lab: [facility] [address] [place] [facility] COMPREHE NSIVE METABOLI C PANEL+MG PROTEIN [MASS/VOLU ME] IN SERUM OR PLASMA 7.2 g/dL 6.0 - 8.3 09/10 Specimen Type: PLASMA No comment entered. Ordering Provider: IRVING POWELL Report Released Date/Time: Sep 10, 2023 07:49 PM Reporting Lab: [facility] [address] Performing Lab: [facility] [address] [facility] COMPREHE NSIVE METABOLI C PANEL+MG ALBUMIN [MASS/VOLU ME] IN SERUM OR PLASMA 4.3 g/dL 3.5 - 5.2 09/10 Specimen Type: PLASMA No comment entered. Ordering Provider: IRVING POWELL Report Released Date/Time: Sep 10, 2023 07:49 PM Reporting Lab: [facility] [address] Performing Lab: [facility] [address] [place] [facility] COMPREHE NSIVE METABOLI C PANEL+MG BILIRUBIN. TOTAL [MASS/VOLU ME] IN SERUM OR PLASMA 1.0 mg/dL 0.2 - 1.2 09/10 Specimen Type: PLASMA No comment entered. Ordering Provider: IRVING POWELL Report Released Date/Time: Sep 10, 2023 07:49 PM Reporting Lab: [facility] [address] Performing Lab: [facility] [address] [place] [facility] COMPREHE NSIVE METABOLI C PANEL+MG MAGNESIUM [MASS/VOLU ME] IN SERUM OR PLASMA 2.0 mg/dL 1.6 - 2.6 09/10 Specimen Type: PLASMA No comment entered. Ordering Provider: IRVING POWELL Report Released Date/Time: Sep 10, 2023 07:49 PM Reporting Lab: [facility] [address] Performing Lab: [facility] [address] [place] [facility] COMPREHE NSIVE METABOLI C PANEL+MG ANION GAP IN SERUM OR PLASMA 11 mmol/L 5 - 15 09/10 Specimen Type: PLASMA No comment entered. Ordering Provider: IRVING POWELL Report Released Date/Time: Sep 10, 2023 07:49 PM Reporting Lab: [facility] [address] Performing Lab: [facility] [address] [place] [facility] COMPREHE NSIVE METABOLI C PANEL+MG ALKALINE PHOSPHATAS E [ENZYMATIC ACTIVITY/V OLUME] IN SERUM OR PLASMA 49 U/L 40 - 150 09/10 Specimen Type: PLASMA No comment entered. Ordering Provider: IRVING POWELL Report Released Date/Time: Sep 10, 2023 07:49 PM Reporting Lab: [facility] [address] Performing Lab: [facility] [address] [place] [facility] COMPREHE NSIVE METABOLI C PANEL+MG ALANINE AMINOTRANS FERASE [ENZYMATIC ACTIVITY/V OLUME] IN SERUM OR PLASMA 23 U/L <55 - 55 09/10 Specimen Type: PLASMA No comment entered. Ordering Provider: IRVING POWELL Report Released Date/Time: Sep 10, 2023 07:49 PM Reporting Lab: [facility] [address] Performing Lab: [facility] [address] [place] [facility] COMPREHE NSIVE METABOLI C PANEL+MG ASPARTATE AMINOTRANS FERASE [ENZYMATIC ACTIVITY/V OLUME] IN SERUM OR PLASMA 18 U/L <34 - 34 09/10 Specimen Type: PLASMA No comment entered. Ordering Provider: IRVING POWELL Report Released Date/Time: Sep 10, 2023 07:49 PM Reporting Lab: [facility] [address] Performing Lab: [facility] [address] [facility] COMPREHE NSIVE METABOLI C PANEL+MG GLOMERULAR FILTRATION RATE/1.73 SQ M.PREDICTE D [VOLUME RATE/AREA] IN SERUM, PLASMA OR BLOOD BY CREATININE -BASED FORMULA (CKD-EPI 2020) 72 60 09/10 Specimen Type: PLASMA No comment entered. Ordering Provider: IRVING POWELL Report Released Date/Time: Sep 10, 2023 07:49 PM Reporting Lab: [facility] [address] Performing Lab: [facility] [address] [facility] Vital Signs Combined list of inpatient and outpatient Vital Signs from Department of Defense and Veterans Affairs, ranging from 12 months to all on [...] ADM Date DC Date Status Disposition Source [facility] Vinicius Booth [place](IEP Hearing Conservat ion Exam) OUTPATIENT [id number] BRANDEN CAREY 09/29 Released w/o Limitations [facility] RADHA Baeza(IEP Hearing Conserv ation Exam) [facility] RADHA Baeza(IEP Optometry ) OUTPATIENT [id number] VIKTORIYA GUERRA 09/30 Released w/o Limitations [facility] RADHA Baeza(IEP Optomet ry) [facility] RADHA Baeza(C-TMC Er Module) OUTPATIENT [id number] ankle pain ESTER CHEUNG 10/06 Released with Work/Duty Limitations [facility], [facility](C-TM C Er Module) RADHA Hogan(C-TMC Er Module) OUTPATIENT [id number] HEAD INJURY. ALTON MARCIE Isaac 10/21 Sick at Home/Quarter s [facility] [place](C-[place] Er [place] RADHA Hogan(C-TMC Er Module) OUTPATIENT [id number] uri ALTON MARCIE Isaac 10/23 Released with Work/Duty Limitations [facility] [place](C-TM C Er Module) RADHA Hogan(C-TMC Er Module) OUTPATIENT [id number] F/U HEAD INJURY. ORTIZ RUTHERFORD 10/25 Released w/o Limitations [facility] [place](C-[place] C Er Module) [facility] RADHA Baeza(IEP Optometry ) OUTPATIENT [id number] REORDER BRENDA DODD 12/08 Released w/o Limitations [facility] [place](IE[place] Optomet ry) [facility] Palencia(C-TMC Er Module) OUTPATIENT [id number] ankle and leg pain SARA DIEHL 12/18 Released with Work/Duty Limitations [facility] RADHA Baeza(C-TM C Er Module) [place] [facility] Outpatient Encounter [id number] 02/10 [facility] PRO PHONE CALL 5-10 MIN [id number] Diagnos is: ICD-10- CM Z71.89 Other specifi ed addictions counselor assistant ing<br/ > AYALA OWENS 02/10 [facility] [place] [facility] Outpatient Encounter [id number] JOHNATHAN MAGDALENO 02/28 [facility] Outpatient Encounter [id number] ELLYHENRYCarlosST MANN Toña 03/04 [facility] MH HEALTH ASSESS BY NON-MD [id number] Diagnos is: ICD-10- CM Z71.89 Other specifi ed addictions counselor assistant ing<br/ > JEFFERSANN 03/05 [facility] Outpatient Encounter [id number] DAVID QUEEN 03/13 [facility] Outpatient Encounter [id number] SEBASTIAN ALONSO 03/26 [facility] Outpatient Encounter [id number] SEBASTIAN ALONSO 03/26 [facility] Outpatient Encounter [id number] SEBASTIAN ALONSO 03/26 [facility] Outpatient Encounter [id number] 03/26 [facility] TDAP VACCINE 7 YRS/> IM [id number] 03/26 [facility] OFFICE O/P NEW HI 60-74 MIN [id number] Diagnos is: ICD-10- CM Z00.00 Encntr for general adult medical exam w/o abnorma l finding s
YOHANA GRACIA 03/27 [facility] [place] PSYCH DIAGNOSTIC EVALUATION [id number] Diagnos is: ICD-10- CM F43.12 Post-tr aumatic stress disorde r, chronic
Inna LOPEZ 04/02 [facility] Outpatient Encounter [id number] ETHAN TRUONG 04/04 [place] [facility] [place] [facility] Outpatient Encounter [id number] 04/11 [place] [facility] [place] [facility] Outpatient Encounter [id number] 04/21 [place] [facility] PSYTX W PT 45 MINUTES [id number] [id number] Diagnos is: ICD-10- CM F43.12 Post-tr aumatic stress disorde r, chronic
Inna LOPEZ 04/22 [facility] PSYTX W PT 45 MINUTES [id number] Diagnos is: ICD-10- CM F43.12 Post-tr aumatic stress disorde r, chronic
Inna LOPEZ 05/01 [facility]ONE CALL 11-20 MIN [id number] Diagnos is: ICD-10- CM K86.1 Other chronic pancrea titis<b r/> FELIX BARTLETT 05/02 [facility] [place] [facility] Outpatient Encounter [id number] 05/02 [place] [facility] OFFICE O/P EST LOW 20-29 MIN [id number] Diagnos is: ICD-10- CM K86.1 Other chronic pancrea titis<b r/> YOHANA GRACIA 05/07 [facility] [place] [facility] OFFICE O/P NEW MOD 45-59 MIN [id number] Diagnos is: ICD-10- CM K86.1 Other chronic pancrea titis<b r/> Inna BOUDREAUX 05/09 [place] [facility] [place] [facility] HC PRO PHONE CALL 5-10 MIN [id number] Diagnos is: ICD-10- CM K86.1 Other chronic pancrea titis<b r/> AJIT BRADFORD 05/09 [place] [facility] PSYTX W PT 45 MINUTES [id number] Diagnos is: ICD-10- CM F43.12 Post-tr aumatic stress disorde r, chronic
Inna LOPEZ 05/09 [facility] PSYTX W PT 45 MINUTES [id number] Diagnos is: ICD-10- CM F43.12 Post-tr aumatic stress disorde r, chronic
Inna LOPEZ 05/14 [facility] [place] [facility] Outpatient Encounter [id number] 05/14 [place] [facility] PSYTX W PT 45 MINUTES [id number] Diagnos is: ICD-10- CM F43.12 Post-tr aumatic stress disorde r, chronic
Inna LOPEZ 05/22 [facility] [place] [facility] Outpatient Encounter [id number] 05/27 [place] [facility] [place] [facility] FLUOROGUID E FOR SPINE INJECT [id number] Diagnos is: ICD-10- CM G89.29 Other chronic pain
Inna BOUDREAUX 05/27 [place] [facility] PSYTX W PT 45 MINUTES [id number] Diagnos is: ICD-10- CM F43.12 Post-tr aumatic stress disorde r, chronic
Inna LOPEZ 05/29 [facility] [place] [facility] OFFICE O/P EST HI 40-54 MIN [id number] [id number] Diagnos is: ICD-10- CM R10.9 Unspeci fied abdomin al pain
AYALA CHARLES R 06/04 [place] [facility] PSYTX W PT 45 MINUTES [id number] Diagnos is: ICD-10- CM F43.12 Post-tr aumatic stress disorde r, chronic
Inna LOPEZ 06/05 [facility] [place] [facility] PSYTX W PT 45 MINUTES [id number] Diagnos is: ICD-10- CM F43.12 Post-tr aumatic stress disorde r, chronic
Inna LOPEZ 06/09 [facility] [place] [facility] Outpatient Encounter [id number] [facility] [place] [facility] Outpatient Encounter [id number] FELIX BARTLETT 06/10 [place] [facility] [facility] [place] [facility] EVOKED AUDITORY TST COMPLETE [id number] Diagnos is: ICD-10- CM Z01.118 Encntr for exam of ears and hearing w oth abnorma l finding s
Carlos CASTELLANOS A 06/17 [facility] [place] [facility] PSYTX W PT 45 MINUTES [id number] [id number] Diagnos is: ICD-10- CM F43.12 Post-tr aumatic stress disorde r, chronic
Inna LOPEZ 07/01 [facility] [place] [facility] OFF/OP CNSLTJ NEW/EST LOW 30 [id number] Diagnos is: ICD-10- CM G89.29 Other chronic pain
MARLO ESCAMILLA A 07/02 [place] [facility] [place] [facility] Outpatient Encounter [id number] 07/02 [place] [facility] [place] [facility] Outpatient Encounter [id number] 07/03 [place] [facility] [place] [facility] Outpatient Encounter [id number] JALEELRAMONACarlos LONGORIA 07/03 [place] [facility] [facility] [place] [facility] Outpatient Encounter [id number] SYEDA HALL 07/04 [place] [facility] [place] [facility] Outpatient Encounter [id number] SYEDA HALL 07/04 [place] [facility] [place] [facility] PSYTX W PT 45 MINUTES [id number] [id number] Diagnos is: ICD-10- CM F43.12 Post-tr aumatic stress disorde r, chronic
Inna LOPEZ 07/08 [facility] [place] [facility] Outpatient Encounter [id number] SYEDA HALL 07/08 [place] [facility] [place] [facility] Outpatient Encounter [id number] SYEDA HALL 07/08 [place] [facility] [place] [facility] Outpatient Encounter [id number] 07/11 [place] [facility] [place] [facility] ACUPUNCT W/O STIMUL 15 MIN [id number] [id number] Diagnos is: ICD-10- CM G89.29 Other chronic pain
MARLO ESCAMILLA A 07/16 [place] [facility] PSYTX W PT 45 MINUTES [id number] [id number] Diagnos is: ICD-10- CM F43.12 Post-tr aumatic stress disorde r, chronic
Inna LOPEZ M 07/22 [facility] [place] [facility] CONFORMITY EVALUATION [id number] Diagnos is: ICD-10- CM Z46.1 Encount er for fitting and adjustm ent of hearing aid<br/ > CUCA WALTONN 07[facility]24 [facility] [place] [facility] GROUP PSYCHOTHER APY [id number] Diagnos is: ICD-10- CM F43.12 Post-tr aumatic stress disorde r, chronic
JALEELRAMONACarlos LONGORIA 07/24 [place] [facility] PSYTX W PT 45 MINUTES [id number] [id number] Diagnos is: ICD-10- CM F43.12 Post-tr aumatic stress disorde r, chronic
Inna LOPEZ 07/29 [facility] [place] [facility] Outpatient Encounter [id number] 07/31 [facility] [place] [facility] ACUPUNCT W/O STIMUL 15 MIN [id number] [id number] Diagnos is: ICD-10- CM G89.29 Other chronic pain
MARLO ESCAMILLA A 08/01 [facility] [place] [facility] PSYTX W PT 45 MINUTES [id number] [id number] Diagnos is: ICD-10- CM F43.12 Post-tr aumatic stress disorde r, chronic
Inna LOPEZ 08/06 [facility] [place] [facility] Outpatient Encounter [id number] 08/07 [place] [facility] [place] [facility] Outpatient Encounter [id number] 08/08 [place] [facility] [place] [facility] Outpatient Encounter [id number] 08/12 [place] [facility] [place] [facility] Outpatient Encounter [id number] 08/14 [place] [facility] [place] [facility] PSYTX W PT 45 MINUTES [id number] Diagnos is: ICD-10- CM F43.12 Post-tr aumatic stress disorde r, chronic
Inna LOPEZ 08/20 [facility] [place] [facility] Outpatient Encounter [id number] 08/20 [place] [facility] ACUPUNCT W/O STIMUL 15 MIN [id number] Diagnos is: ICD-10- CM G89.29 Other chronic pain
MARLO ESCAMILLA A 08/27 [place] [facility] PRO PHONE CALL 5-10 MIN [id number] Diagnos is: ICD-10- CM G89.29 Other chronic pain
POLO,CHARLENE TIE E 08[facility]29 [facility] [place] PT 45 MINUTES [id number] Diagnos is: ICD-10- CM F43.12 Post-tr aumatic stress disorde r, chronic
Inna LOPEZ 09/03 [facility] EMERGENCY DEPT VISIT LOW MDM [id number] Diagnos is: ICD-10- CM R10.10 Upper abdomin al pain, unspeci fied
MADI POWELL 09/10 [place] [facility] [place] [facility] Outpatient Encounter [id number] [place] MARCUM 09/11 [place] [facility] [place] [facility] Outpatient Encounter [id number] GERALD MARCUM 09/11 [place] [facility] PSYTX W PT 45 MINUTES [id number] Diagnos is: ICD-10- CM F43.12 Post-tr aumatic stress disorde r, chronic
Inna LOPEZ 09/30 [facility] PSY[facility] W PT 45 MINUTES [id number] Diagnos is: ICD-10- CM F43.12 Post-tr aumatic stress disorde r, chronic
Inna LOPEZ 10/07 [facility] PSYTX W PT 45 MINUTES [id number] Diagnos is: ICD-10- CM F43.12 Post-tr aumatic stress disorde r, chronic
Inna LOPEZ 10/21 [facility] [place] [facility] Outpatient Encounter [id number] GRETCHEN TALAVERA 11/02 [place] [facility] PSYTX W PT 45 MINUTES [id number] Diagnos is: ICD-10- CM F43.12 Post-tr aumatic stress disorde r, chronic
Inna LOPEZ 11/04 [facility] [place] [facility] OFFICE O/P EST MOD 30 MIN [id number] Diagnos is: ICD-10- CM R19.7 Diarrhe a, unspeci fied
ESPINOSA,ANA LUISA AN J 11/18 [place] [facility] [place] [facility] Outpatient Encounter [id number] 11/18 [place] [facility] [place] [facility] PRO PHONE CALL 5-10 MIN [id number] Diagnos is: ICD-10- CM K86.1 Other chronic pancrea titis<b r/> ARMANI HEIN 11/18 [place] [facility] PSYTX W PT 45 MINUTES [id number] Diagnos is: ICD-10- CM F43.12 Post-tr aumatic stress disorde r, chronic
Inna LOPEZ 11/27 [facility] [place] [facility] Outpatient Encounter [id number] Inder MALDONADO 11/30 [place] [facility] PSYTX W PT 45 MINUTES [id number] Diagnos is: ICD-10- CM F43.12 Post-tr aumatic stress disorde r, chronic
Inna LOPEZ 12/03 [facility] [place] [facility] Outpatient Encounter [id number] GERALD MARCUM 12/04 [place] [facility] [place] [facility] Outpatient Encounter [id number] GERALD MARCUM 12/04 [place] [facility] [place] [facility] FLUOROGUID E FOR SPINE INJECT [id number] Diagnos is: ICD-10- CM R10.9 Unspeci fied abdomin al pain
YOHANA GRACIA 12/04 [place] [facility] [facility] [place] [facility] Outpatient Encounter [id number] 12/04 [place] [facility] [place] [facility] Outpatient Encounter [id number] 12/04 [place] [facility] [place] [facility] EMERGENCY DEPT VISIT MOD MDM [id number] Diagnos is: ICD-10- CM G89.4 Chronic pain syndrom e
ULYSSES ELDER 12/04 [place] [facility] PSYTX W PT 45 MINUTES [id number] Diagnos is: ICD-10- CM F43.12 Post-tr aumatic stress disorde r, chronic
Inna LOPEZ 12/15 [facility] Procedures Combined list of: 1) Procedures from Department of Veterans Affairs facilities going back up to thelast 18 months, not all [place] non-surgical procedures are included; 2) All procedures from the Department of Defense facilities. Procedure Procedure Type Code Date Perfomer Comments Sour e Physician Supervised Ordering / Handling / Fitting Patient Devices Physician Supervised Ordering / Handling / Fitting Patient Devices 50238 7 SARA DIEHL Patient Training And Self-Care Skills Patient Training And Self-Care Skills 41466 7 SARA DIEHL Repair And Refitting Gla es (Not For Aphakia) Repair And Refitting Glasses (Not For Aphakia) 69108 7 FREDERICK MENDOZA Spectacles Services Fitting Monofocal Except For Aphakia Spectacles Services Fitting Monofocal Except For Aphakia 97283 7 FREDERICK MENDOZA Patient Training And Self-Care Skills Patient Training And Self-Care Skills 01330 7 ORTIZ RUTHERFORD Phys Therapy Education Self Care Training - Per 15 Minutes Phys Therapy Education Self Care Training - Per 15 Minutes 12308 7 MARCIE DANG Patient Training And Self-Care Skills Patient Training And Self-Care Skills 97459 7 MARCIE DANG Physician Supervised Ordering / Handling / Fitting Patient Devices Physician Supervised Ordering / Handling / Fitting Patient Devices 56077 7 ESTER CHEUNG Patient Training And Self-Care Skills Patient Training And Self-Care Skills 91531 7 ESTER CHEUNG Spectacles Services Fitting Monofocal Except For Aphakia Spectacles Services Fitting Monofocal Except For Aphakia 37812 7 SUZIE GUERRA Screening Test Of Visual Acuity, Quantitative, Bilateral Screening Test Of Visual Acuity, Quantitative, Bilateral 20708 7 SUZIE GUERRA Determination Of Refractive State Determination Of Refractive State 59767 7 SUZIE GUERRA Ear mold/insert, not disposable, any type 7 BRANDEN CAREY Audiometry Group Testing Audiometry Group Testing 65621 7 BRANDEN CAREY Physician Supervised Group Educational Services 7 BRANDEN CAREY DoD SELF-CARE/HOME MANAGMENT TRAIN (EG,ACT OF DAILY LIVING (ADL) &COMPENSAT TRAIN,MEAL PREPARATION,SAFETY PROCS,AND INSTRUCT IN USE OF ASST TECHNOLOGY DEV/ADPT EQUIP) DIR ONE-ON-ONE CONT,EA 15 MINUTES 7 DoD REPAIR AND REFITTING SPECTACLES; EXCEPT FOR APHAKIA 7 DoD SELF-CARE/HOME MANAGMENT TRAIN (EG,ACT OF DAILY LIVING (ADL) &COMPENSAT TRAIN,MEAL PREPARATION,SAFETY PROCS,AND INSTRUCT IN USE OF ASST TECHNOLOGY DEV/ADPT EQUIP) DIR ONE-ON-ONE CONT,EA 15 MINUTES 7 DoD SELF-CARE/HOME MANAGMENT TRAIN (EG,ACT OF DAILY LIVING (ADL) &COMPENSAT TRAIN,MEAL PREPARATION,SAFETY PROCS,AND INSTRUCT IN USE OF ASST TECHNOLOGY DEV/ADPT EQUIP) DIR ONE-ON-ONE CONT,EA 15 MINUTES 7 DoD HANDLING,CONVEY,&/A [place] OTH SERV,CONN W IMP OF ORD INV DEV (EG,DESIGN,FIT,PCK, HND,DEL/MAIL) WHEN DEV SUCH ORTH,PROT,PROSTH,FA B,OUTSIDE LAB/SHOP BUT ITEM JF,&ARE TO BE FIT&ADJ,ATT PHYS/OTH QUAL HCP 7 DoD THERAPEUTIC, PROPHYLACTIC OR DIAGNOSTIC INJECTION (SPECIFY SUBSTANCE OR DRUG); SUBCUTANEOUS OR INTRAMUSCULAR 7 DoD FITTING OF SPECTACLES, EXCEPT FOR APHAKIA; MONOFOCAL 7 DoD EAR MOLD/INSERT, NOT DISPOSABLE, ANY TYPE 7 DoD Social History Combined list of available smoking, tobacco, and other social history from 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 DoD Plan of Care List of future care activities from Department of 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 Additional future care activities may be listed in the Assessment and Plan section. Date/Time Care Activity Care Activity Detail Facili ty 12/30/2023 AMBULATORY - PSYCHIATRY AMBULATORY - PSYC [facility]AT[facility] 01/13/2024 [facility] Laboratory - Chemistry Order TTG AB,IGA S GEENA SP ONCE [facility] 11/19/2023 Laboratory - Chemistry Order HARRIETT STASE-1,PANC STL STOOL FECES SP ONCE [facility] 11/19/2023 Laboratory - Chemistry Order IGA PLASMA S P ONCE [facility] 11/19/2023 Laboratory - Chemistry Order ENT CURT PATHOGEN PCR PANEL STOOL FECES SP ONCE [facility] 11/19/2023 Laboratory - Microbi ology Order OVA and PARASITES FECAL FECES SP ONCE [facility] 12/05/2023 Laboratory - Chemistry Order BLO OD GAS PANEL FOR ICU ARTERIAL BLOOD STAT WC [facility] 12/12/2023 Laboratory - Chemistry Order TYSON PROTECTIN,STOOL STOOL FECES SP ONCE [facility]
--- OUTSIDE RECORDS SUMMARY | 2023-12-21 01:04 | XMS_ITS | Encounter Summary ---
Author Name [facility] Affairs Organization [facility] of [facility] Address [address] [place] [address] Care Team Providers Care Director Of Marketing Analytics Name Role Phone EMIR GRACIA Primary Care Provider Unavailabl e Selected Encounter This section includes the information on record at [place] for the Encounter. Date/Time Encounter Type Encounter Description Reason Pro vider Source November 19, 2023 03:00 PM OFFICE O/P EST MOD 30 MIN GASTROENTEROLOGY ICD-10-CM R19.7 Diarrhea, unspecified PIA ESPINOSA Lorie Encounter Template Text not used by [place] Assessments - Encounter Diagnoses This section includes the primary and secondary diagnoses documented for the Encounter. Date/Time Primary/Secondary Diagnosis Diagnosis Name Provider Source November 19, 2023 05:07 PM PRIMARY Diarrhea, unspecified EVARISTO ONEIL [facility] November 19, 2023 05:07 PM SECONDARY Acute pancreatitis without necrosis or infection, unsp [facility] Plan of Treatment: Future Appointments (+ 6 months) and Future Tests (+/- 45 days) The Plan of Treatment section includes future care activities for the patient from all [place] treatmentfacilities. This section includes future appointments and future orders which are active, pending or scheduled. Future Appointments This section includes appointments that were scheduled to occur 6 months from the date of the Encounter, up to a maximum of 20 appointments. The data comes from all [facility]. Appointment Date/Time Appointment Type Appointme nt Facility Name November 28, 2023 01:00 PM AMBULATORY - PS[facility]IATRY [facility] December 01, 2023 02:15 PM AMBULATORY - NONE [place] [facility] December 04, 2023 09:00 AM AMBULATORY - PS[facility]CHIATRY [facility] December 05, 2023 01:20 PM AMBULATORY - REHAB MEDICIN E [facility] December 05, 2023 02:45 PM AMBULATORY - MEDICINE [place] [facility] December 16, 2023 02:00 PM AM[facility]ORY - PS[facility]CHIATRY [facility] Dec 30, 2023 01:00 PM AMBULATORY - PS[facility]CHIATRY [facility] Jan 13, 2024 02:00 PM AMBULATORY - PSYCHIATRY [facility] [...] of theEncounter. The data comes from all [facility]. Test Date/Time Test Type Test Details Facility Name November 19, 2023 12:00 AM Laboratory - Chemi stry Order ELASTASE-1,PANC STL STOOL FECES SP ONCE [facility] November 19, 2023 12:00 AM Laboratory - Chemi stry Order TTG AB,IGA SERUM SP ONCE [facility] November 19, 2023 12:00 AM Laboratory - Chemi stry Order IGA PLASMA SP ONCE [facility] November 19, 2023 12:00 AM Laboratory - Microbiology Order OVA & PARASITES FECAL FECES SP ONCE [facility] November 19, 2023 12:00 AM Laboratory - Chemi stry Order ENTERIC PATHOGEN PCR PANEL STOOL FECES SP ONCE [facility] December 05, 2023 02:27 PM Laboratory - Chemi stry Order BLOOD GAS PANEL FOR ICU ARTERIAL BLOOD STAT WC [facility] December 12, 2023 03:21 PM Laboratory - Chemi stry Order CALPROTECTIN,STOOL STOOL FECES SP ONCE [facility] Lab Results: +/- 30 days of the encounter This section includes the Chemistry and Hematology Lab Results on record with [place] for the patient. Radiology Reports and Pathology Reports are provided separately, in subsequent sections. Lab Results This section contains the Chemistry/Hematology Results that were resulted 30 days before or 30 daysafter the date of the Encounter. Date/Time Source Result Type Result - Unit Interpretation Reference Range Comment December 05, 2023 02:20 PM [facility] EXTRA RED TUBE Specimen Type: SERUM No comment entered. Ordering Provider: EVARISTO ONEIL Report Released Date/Time: December 05, 2023 02:39 PM Reporting Lab: [facility] [id number] Performing Lab: [facility] [id number] EXTRA RED TUBE RECEIVED December 05, 2023 02:20 PM [facility] CODE BLUE(LYTE,CR,UN,GL,MG,CA,PHOS,TROP) Specimen Type: PLASMA No comment entered. Ordering Provider: EVARISTO ONEIL Report Released Date/Time: December 05, 2023 02:27 PM Reporting Lab: [facility] [address] Performing Lab: [facility] [address] CREATININE 1.1 mg/dL H 0.5-1.0 UREA NITROGEN 10 mg/dL 7-20 GLUCOSE 101 mg/dL H 70-100 SODIUM 138 mmol/L 136-145 POTASSIUM 3.8 mmol/L 3.5-5.1 CHLORIDE 107 mmol/L 98-107 CO2 22 mmol/L 22-29 CALCIUM 9.3 mg/dL 8.4-10.2 PHOSPHORUS 3.5 mg/dL 2.3-4.7 MAGNESIUM 1.9 mg/dL 1.6-2.6 ANION GAP 9 mmol/L 5-15 .CREAT EGFR(CKD-EPI) 64 >60 TROPONIN I, HS <3 <14 December 05, 2023 02:20 PM [facility] LACTIC ACID Specimen Type: PLASMA No comment entered. Ordering Provider: EVARISTO ONEIL Report Released Date/Time: December 05, 2023 02:27 PM Reporting Lab: [facility] [id number] Performing Lab: [facility] [address] LACTIC ACID 1.7 mmol/L 0.5-2.2 December 05, 2023 02:20 PM [facility] CBC Specimen Type: BLOOD No comment entered. Ordering Provider: EVARISTO ONEIL Report Released Date/Time: December 05, 2023 02:27 PM Reporting Lab: [facility] [address] Performing Lab: [facility] [address] WBC 11.50 10*3/uL H 4.0-11.0 RBC 4.83 10*6/uL 4.0-5.4 HGB 13.6 g/dL 11.5-16 HCT 39.8 34.5-48 MCV 82.4 fL 80-100 MCH 28.2 pg 27-33 MCHC 34.2 g/dL 32.0-37.5 PLT 443 10*3/uL H 150-400 MPV 9.1 fL 7.4-10.4 RDW 12.5 11.5-14.5 December 05, 2023 02:20 PM [facility] PROTHROMBIN TIME/INR Specimen Type: PLASMA No comment entered. Ordering Provider: EVARISTO ONEIL Report Released Date/Time: December 05, 2023 02:27 PM Reporting Lab: [facility] [id number] Performing Lab: [facility] [address] .INR 1.2 H 0.8-1.1 .PT 13.5 s H 9.4-12.5 December 05, 2023 02:20 PM [facility] EXTRA GOLD GEL TUBE Specimen Type: SERUM No comment entered. Ordering Provider: EVARISTO ONEIL Report Released Date/Time: December 05, 2023 02:39 PM Reporting Lab: [facility] [address] Performing Lab: [facility] [address] EXTRA GOLD GEL TUBE RECEIVED December 05, 2023 02:18 PM [facility] POC ABG/ELECTROLYTES Specimen Type: VENOUS BLOOD Comment: FIO2 = 40% Patient Temp: 36.6 C Sample Type = VENOUS Ordering Provider: ULYSSES ELDER Report Released Date/Time: December 06, 2023 08:24 PM Reporting Lab: [facility] [address] Performing Lab: [facility] [address] POC PH 7.382 7.31-7.41 POC PCO2 35.0 mm[Hg] L 41.00-51.00 POC PO2 36 mm[Hg] 35.0-40.0 POC TCO2 22 mmol/L L 24.0-29.0 POC HCO3 20.8 mmol/L L 23.0-28.0 POC BE ECT -4 mmol/L L -2-3 POC SO2 68 L 70-75 POC SODIUM 138 mmol/L 138.0-146.0 POC POTASSIUM 4.0 mmol/L 3.50-4.90 POC HGB 14.3 g/dL 12.00-17.00 POC HCT 42 38.0-51.0 POC IONIZED CALCIUM 4.9 mg/dL 4.50-5.30 POC PH AT PAT TEMP 7.388 7.31-7.41 POC PCO2 AT PAT TEMP 34.4 mm[Hg] L 41.00-51.00 POC PO2 AT PAT TEMP 35 mm[Hg] 35.0-40.0 Encounter Notes: All associated encounter notes This section contains the clinical notes associated to the Encounter. Date/Time Encounter Note(s) Provider Source December 10, 2023 05:02 PM ADDENDUM: LOCAL TITLE: Addendum STANDARD TITLE: ADDENDUM DATE OF NOTE: DECEMBER 10, 2023@17:02:32 ENTRY DATE: DECEMBER 10, 2023@17:02:33 AUTHOR: TIGRE WEST EXP COSIGNER: URGENCY: STATUS: COMPLETED called stating that she was awaiting a stool sample kit from GI to be sent out to her. states that she never received the stool sample kit and is inquiring if one can be sent out to her address on file. Veterans contact number is listed below for any additional information and questions if needed, if appropriate. /es/ TIGRE [facility],V23 [facility] Signed: 12/10/2023 17:05 Receipt Acknowledged By: 12/12/2023 11:30 /es/ Evaristo Oneil GI fellow --- Original Document --- 11/19/23 GI CLINIC NOTE: GASTROENTEROLOGY CLINIC FELLOW NOTE CC: diarrhea Assessment [...] pain clinic which is now transferred to [place]. # Recurrent acute pancreatitis Last EUS 04/2023 [...] Dr. Garcia. Evaristo Oneil MD GI fellow [phone] -- HPI: 42 yo F with chronic [...] now with only protein shake. Went to [employer] 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 /es/ Evaristo Oneil GI fellow Signed: 11/19/2023 17:09 TIGRE WEST [facility] November 19, 2023 11:30 AM GASTROENTEROLOGY ATTENDING NOTE: LOCAL TITLE: GI CLINIC NOTE STANDARD TITLE: GASTROENTEROLOGY ATTENDING NOTE DATE OF NOTE: NOVEMBER 19, 2023@11:30 ENTRY DATE: NOVEMBER 19, 2023@11:30:35 AUTHOR: EVARISTO ONEIL EXP COSIGNER: URGENCY: STATUS: COMPLETED GI CLINIC NOTE Has ADDENDA GASTROENTEROLOGY CLINIC FELLOW NOTE CC: diarrhea Assessment [...] pain clinic which is now transferred to [place]. # Recurrent acute pancreatitis Last EUS 04/2023 [...] Dr. Garcia. Evaristo Oneil MD GI fellow [phone] -- HPI: 42 yo F with chronic [...] now with only protein shake. Went to [employer] 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 [place] states that she never received the stool sample kit and is inquiring if one can be sent out to her address on file. Veterans contact number is listed below for any additional information and questions if needed, if appropriate. /es/ TIGRE [facility],V23 [facility] Signed: 12/10/2023 17:05 Receipt Acknowledged By: 12/12/2023 11:30 /lilia/ Evaristo Oneil GI fellow 12/12/2023 ADDENDUM STATUS: COMPLETED the stool kit will be mailed out today. /es/ Evaristo Oneil GI fellow Signed: 12/12/2023 11:33 EVARISTO ONEIL [facility]
--- OUTSIDE RECORDS SUMMARY | 2023-12-21 01:04 | XMS_ITS | Encounter Summary ---
Author Name [facility] Organization [facility] Address [address] [place] [address] Care Team Providers Care Policewoman Name Role Phone EMIR GRACIA Primary Care Provider Unavailabl e Selected Encounter This section includes the information on record at [place] for the Encounter. Date/Time Encounter Type Encounter Description Reason Provider Source December 04, 2023 09:00 AM PSYTX W PT 45 MINUTES [facility] - IND ICD-10-CM F43.12 Post-traumatic stress disorder, chronic [facility] Encounter Template Text not used by [facility] Assessments - Encounter Diagnoses This section includes the primary and secondary diagnoses documented for the Encounter. Date/Time Primary/Secondary Diagnosis Diagnosis Name Provider Source December 04, 2023 10:49 AM PRIMARY Post-traumatic stress disorder, chronic [facility] Plan of Treatment: Future Appointments (+ 6 [...] Appointment Type Appointme nt Facility Name December 05, 2023 01:20 PM AMBULATORY - REHAB MEDICIN E [facility] December 05, 2023 02:45 PM AMBULATORY - MEDICINE [facility] December 16, 2023 02:00 PM AMBULATORY - [facility]CHIATRY [facility] Dec 30, 2023 01:00 PM AMBULATORY [...] Order ELASTASE-1,PANC STL STOOL FECES SP ONCE [facility] November 19, 2023 12:00 AM Laboratory - Chemi stry Order TTG AB,IGA SERUM SP ONCE [facility] November 19, 2023 12:00 AM Laboratory - Chemi stry Order IGA PLASMA SP ONCE [facility] November 19, 2023 12:00 AM Laboratory - Microbiology Order OVA & PARASITES FECAL FECES SP ONCE [facility] November 19, 2023 12:00 AM Laboratory - Chemi stry Order ENTERIC PATHOGEN PCR PANEL STOOL FECES SP ONCE [facility] December 05, 2023 02:27 PM Laboratory - Chemi stry Order BLOOD GAS PANEL FOR ICU ARTERIAL BLOOD STAT WC [facility] December 12, 2023 03:21 PM Laboratory - Chemi stry Order CALPROTECTIN,STOOL STOOL FECES SP ONCE [facility] Lab Results: +/- 30 days of the encounter This section includes the Chemistry and Hematology Lab Results on record with [place] for the patient. Radiology Reports and Pathology Reports are provided separately, in subsequent sections. Lab Results This section contains the Chemistry/Hematology Results that were resulted 30 days before or 30 daysafter the date of the Encounter. Date/Time Source Result Type Result - Unit Interpretation Reference Range Comment December 05, 2023 02:20 PM [facility] EXTRA RED TUBE Specimen Type: SERUM No comment entered. Ordering Provider: NELSON RONQUILLO Report Released Date/Time: December 05, 2023 02:39 PM Reporting Lab: [facility] [id number] Performing Lab: [facility] [id number] EXTRA RED TUBE RECEIVED December 05, 2023 02:20 PM [facility] CODE BLUE(LYTE,CR,UN,GL,MG,CA,PHOS,TROP) Specimen Type: PLASMA No comment entered. Ordering Provider: NELSON RONQUILLO Report Released Date/Time: December 05, 2023 02:27 PM Reporting Lab: [facility] [id number] Performing Lab: [facility] [id number] CREATININE 1.1 mg/dL H 0.5-1.0 UREA NITROGEN 10 mg/dL 7-20 GLUCOSE 101 mg/dL H 70-100 SODIUM 138 mmol/L 136-145 POTASSIUM 3.8 mmol/L 3.5-5.1 CHLORIDE 107 mmol/L 98-107 CO2 22 mmol/L 22-29 CALCIUM 9.3 mg/dL 8.4-10.2 PHOSPHORUS 3.5 mg/dL 2.3-4.7 MAGNESIUM 1.9 mg/dL 1.6-2.6 ANION GAP 9 mmol/L 5-15 .CREAT EGFR(CKD-EPI) 64 >60 TROPONIN I, HS <3 <14 December 05, 2023 02:20 PM [facility] LACTIC ACID Specimen Type: PLASMA No comment entered. Ordering Provider: NELSON RONQUILLO Report Released Date/Time: December 05, 2023 02:27 PM Reporting Lab: [facility] [id number] Performing Lab: [facility] [phone] LACTIC ACID 1.7 mmol/L 0.5-2.2 December 05, 2023 02:20 PM [facility] CBC Specimen Type: BLOOD No comment entered. Ordering Provider: NELSON RONQUILLO Report Released Date/Time: December 05, 2023 02:27 PM Reporting Lab: [facility] [id number] Performing Lab: [facility] [id number] WBC 11.50 10*3/uL H 4.0-11.0 RBC 4.83 10*6/uL 4.0-5.4 HGB 13.6 g/dL 11.5-16 HCT 39.8 34.5-48 MCV 82.4 fL 80-100 MCH 28.2 pg 27-33 MCHC 34.2 g/dL 32.0-37.5 PLT 443 10*3/uL H 150-400 MPV 9.1 fL 7.4-10.4 RDW 12.5 11.5-14.5 December 05, 2023 02:20 PM [facility] PROTHROMBIN TIME/INR Specimen Type: PLASMA No comment entered. Ordering Provider: NELSON RONQUILLO Report Released Date/Time: December 05, 2023 02:27 PM Reporting Lab: [facility] [id number] Performing Lab: [facility] [id number] .INR 1.2 H 0.8-1.1 .PT 13.5 s H 9.4-12.5 December 05, 2023 02:20 PM [facility] EXTRA GOLD GEL TUBE Specimen Type: SERUM No comment entered. Ordering Provider: NELSON RONQUILLO Report Released Date/Time: December 05, 2023 02:39 PM Reporting Lab: [facility] [id number] Performing Lab: [facility] [phone] EXTRA GOLD GEL TUBE RECEIVED December 05, 2023 02:18 PM [facility] POC ABG/ELECTROLYTES Specimen Type: VENOUS BLOOD Comment: FIO2 = 40% Patient Temp: 36.6 C Sample Type = VENOUS Ordering Provider: ULYSSES ELDER Report Released Date/Time: December 06, 2023 08:24 PM Reporting Lab: [facility] [phone] Performing Lab: [facility] [phone] POC PH 7.382 7.31-7.41 POC PCO2 35.0 [...] PO2 AT PAT TEMP 35 mm[Hg] 35.0-40.0 Social History: Smoking Status (Most current) and Tobacco Use (All prior to encounter date) This section includes the most current, and the historical, smoking and tobacco- related health factors from the [place] facility where the Encounter took place. Current Smoking Status This section includes the most current smoking, or tobacco-related health factor, from the [place] facility where the Encounter took place. Date/Time Current Smoking Status Comment Facil ity Mar 27, 2023 09:00 AM [place]-TOBACCO FORMER USER [facility] Tobacco Use History This section includes a history of the smoking, or tobacco-related health factors, that were collected on or before the date of the Encounter. The data comes from the [place] facility where the Encounter took place. Date/Time Smoking Status/Tobacco Use Comment F acility Mar 27, 2023 09:00 AM [place]-TOBACCO QUIT 5 TO < 15 YRS [facility] Encounter Notes: All associated encounter notes This section contains the clinical notes associated to the Encounter. Date/Time Encounter Note(s) Provider Source December 04, 2023 09:00 AM MENTAL HEALTH NOTE : LOCAL TITLE: MH PROGRESS NOTE STANDARD TITLE: MENTAL HEALTH NOTE DATE OF NOTE: DECEMBER 04, 2023@09:00 ENTRY DATE: DECEMBER 04, 2023@10:48:02 AUTHOR: MILI LOPEZ EXP COSIGNER: URGENCY: STATUS: COMPLETED OUTPATIENT MENTAL HEALTH PROGRESS [place] [facility] [place]: [place] Length of Session: 50 minutes Method of Interface: VVC Session #22 Author: MERNA Trevino, TROY Visit conducted by synchronous telehealth. verbal consent obtained. Location/emergency number confirmed. Environment surveyed and all participants identified. Virtual conference room locked. Subjective: Met with Quintin Zavala for individual therapy session. She reported that she was in the hospital over the weekend due to her pancreatitis and was still feeling poorly. She noted that her girlfriend did not visit or really check in with her which helped her to realize that the relationship isn't meeting her needs and she would like to end it. She expressed uncertainty about how to do that in a healthy way so we explored strategies that work for [place], allowing her to enforce her boundaries and advocate for her needs while being kind and respectful. She also noted that her ex used it as an opportunity to offer his support in a way that felt manipulative and uncomfortable. She described feeling both grateful for his support and also frustrated but the intensity of what he offers. Discussed the gutierrez area that comes with having love for someone and wanting the best for them and not wanting the intimacy and intensity they used to share. We talked about her boundaries in that relationship as well and how she can put them in place without prioritizing his feelings over hers. She expressed a new comfort with being alone and prioritizing herself and Roller Skates Assembler reinforced that, encouraging her to allow her focus to be on her relationship with herself. Objective: Appearance: Well-groomed, appropriate eye contact Speech: Regular rate/rhythm/volume Motor: Normal Spontaneous movement Mood: Euthymic Affect: Full range, Appropriate, consistent with mood Thought Content: No Suicidal Ideation/No Homicidal Ideation No Delusions No Hallucinations Thought Process: Linear/Logical/Goal Oriented Judgement: Good Insight: Good Impulse Control: Good Oriented to Person/Place/Time/Reason for Appointment Assessment: [place] was engaged and receptive throughout. Risk factors include history of SI/suicide attempt, insomnia, relationship issues, race. Protective factors include responsibility to others, children in the home, hope for the future, desire to live, help seeking behaviors, positive therapeutic alliance. Current risk assessment: Low acute, Intermediate chronic Diagnostic Evaluation: PTSD, chronic Plan: RTC in two weeks /lilia/ TROY Grace Surveyor Helper Signed: 12/04/2023 10:49 MILI LOPEZ [facility]
--- OUTSIDE RECORDS SUMMARY | 2023-12-21 01:04 | XMS_ITS | Encounter Summary ---
Author Name [facility] Organization [facility] Address [address] [place] [address] Care Team Providers Care Processing Manager Name Role Phone EMIR GRACIA Primary Care Provider Unavailabl e Selected Encounter This section includes the information on record at [place] for the Encounter. Date/Time Encounter Type Encounter Description Reason Provider Source December 01, 2023 02:15 PM Outpatient Encounter ADMIN PAT ACTIVTIES (MASNONCT) JI MALDONADO Encounter Template Text not used by [place] Plan of Treatment: Future Appointments (+ 6 months) and Future Tests (+/- 45 days) The Plan of Treatment section includes future care activities for the patient from all [place] treatmentfacilities. This section includes future appointments and future orders which are active, pending or scheduled. Future Appointments This section includes appointments that were scheduled to occur 6 months from the date of the Encounter, up to a maximum of 20 appointments. The data comes from all [place] treatment facilities. Appointment Date/Time Appointment Type Appointme nt Facility Name December 04, 2023 09:00 AM AMBULATORY - PSYCHIATRY [facility] December 05, 2023 01:20 PM AMBULATORY - REHAB MEDICIN E [facility] December 05, 2023 02:45 PM AMBULATORY - MEDICINE [facility] December 16, 2023 02:00 PM AMBULATORY - PSYCHIATRY [facility] Dec 30, 2023 01:00 PM [facility] Jan 13, 2024 02:00 PM AMBULATORY - PS[facility]CHIATRY [facility] Active, Pending, and Scheduled Orders This section includes a listing of several types of active, pending, and scheduled orders, including clinic medications orders, diagnostic test orders, procedure orders and consult orders; where the start date of the order is 45 days before the date of the Encounter or 45 days after the date of theEncounter. The data comes from all [place] treatment facilities. Test Date/Time Test Type Test [...] FECES SP ONCE [facility] December 05, 2023 02:27 PM Laboratory - Chemi stry Order BLOOD GAS PANEL FOR ICU ARTERIAL BLOOD STAT WC [facility] December 12, 2023 03:21 PM Laboratory - Chemi stry Order CALPROTECTIN,STOOL STOOL F[facility]ES SP ONCE [facility] Lab Results: +/- 30 days of the encounter This section includes the Chemistry and Hematology Lab Results on record with [place] for the patient. Radiology Reports and Pathology Reports are provided separately, in subsequent sections. Lab Results This section contains the Chemistry/Hematology Results that were resulted 30 days before or 30 daysafter the date of the Encounter. Date/Time Source Result Type Result - Unit Interpretation Reference Range Comment December 05, 2023 02:20 PM [facility] EXTRA RED TUBE Specimen Type: SERUM No comment entered. Ordering Provider: NELSON RONQUILLO Report Released Date/Time: December 05, 2023 02:39 PM Reporting Lab: [facility] [id number] Performing Lab: [facility] [id number] EXTRA RED TUBE RECEIVED December 05, 2023 02:20 PM [facility] CODE BLUE(LYTE,CR,UN,GL,MG,CA,PHOS,TROP) Specimen Type: PLASMA No comment entered. Ordering Provider: NELSON RONQUILLO Report Released Date/Time: December 05, 2023 02:27 PM Reporting Lab: [facility] [id number] Performing Lab: [facility] [phone] CREATININE 1.1 mg/dL H 0.5-1.0 UREA NITROGEN 10 mg/dL 7-20 GLUCOSE 101 mg/dL H 70-100 SODIUM 138 mmol/L 136-145 POTASSIUM 3.8 mmol/L 3.5-5.1 CHLORIDE 107 mmol/L 98-107 CO2 22 mmol/L 22-29 CALCIUM 9.3 mg/dL 8.4-10.2 PHOSPHORUS 3.5 mg/dL 2.3-4.7 MAGNESIUM 1.9 mg/dL 1.6-2.6 ANION GAP 9 mmol/L 5-15 .CREAT EGFR(CKD-EPI) 64 >60 TROPONIN I, HS <3 <14 December 05, 2023 02:20 PM [facility] LACTIC ACID Specimen Type: PLASMA No comment entered. Ordering Provider: NELSON RONQUILLO Report Released Date/Time: December 05, 2023 02:27 PM Reporting Lab: [facility] [phone] Performing Lab: [facility] [id number] LACTIC ACID 1.7 mmol/L 0.5-2.2 December 05, 2023 02:20 PM [facility] CBC Specimen Type: BLOOD No comment entered. Ordering Provider: NELSON RONQUILLO Report Released Date/Time: December 05, 2023 02:27 PM Reporting Lab: [facility] [phone] Performing Lab: [facility] [phone] WBC 11.50 10*3/uL H 4.0-11.0 RBC 4.83 10*6/uL 4.0-5.4 HGB 13.6 g/dL 11.5-16 HCT 39.8 34.5-48 MCV 82.4 fL 80-100 MCH 28.2 pg 27-33 MCHC 34.2 g/dL 32.0-37.5 PLT 443 10*3/uL H 150-400 MPV 9.1 fL 7.4-10.4 RDW 12.5 11.5-14.5 December 05, 2023 02:20 PM [facility] PROTHROMBIN TIME/INR Specimen Type: PLASMA No comment entered. Ordering Provider: NELSON RONQUILLO Report Released Date/Time: December 05, 2023 02:27 PM Reporting Lab: [facility] [id number] Performing Lab: [facility] [address] .INR 1.2 H 0.8-1.1 .PT 13.5 s H 9.4-12.5 December 05, 2023 02:20 PM [facility] EXTRA GOLD GEL TUBE Specimen Type: SERUM No comment entered. Ordering Provider: NELSON RONQUILLO Report Released Date/Time: December 05, 2023 02:39 PM Reporting Lab: [facility] [id number] Performing Lab: [facility] [phone] EXTRA GOLD GEL TUBE RECEIVED December 05, 2023 02:18 PM [facility] POC ABG/ELECTROLYTES Specimen Type: VENOUS BLOOD Comment: FIO2 = 40% Patient Temp: 36.6 C Sample Type = VENOUS Ordering Provider: ULYSSES ELDER Report Released Date/Time: December 06, 2023 08:24 PM Reporting Lab: [facility] [phone] Performing Lab: [facility] [phone] POC PH 7.382 7.31-7.41 POC PCO2 35.0 [...] Encounter. Date/Time Encounter Note(s) Provider Source December 05, 2023 08:26 AM ADDENDUM: LOCAL TITLE: Addendum STANDARD TITLE: ADDENDUM DATE OF NOTE: DECEMBER 05, 2023@08:26:33 ENTRY DATE: DECEMBER 05, 2023@08:26:34 AUTHOR: PARISH GARCÍA COSIGNER: URGENCY: STATUS: COMPLETED HOSPITAL DISCHARGE CARE COORDINATION NOTE Hospital Name: [facility] Admit date: 11/29/23 Discharge date: 12/01/23 Level of Care: OBS Primary Diagnosis: Abdominal pain Discharge Disposition: Discharge provider recommends and notes the following: Hospital Course Hospital Course: Per H&P: Quintin Zavala is a 42 year old female 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 About 3 days ago she started having mid epigastric pain that radiates a little bit to the left upper quadrant. She has been taking dilaudid 4 mg every 6 hours without adequate relief. She has not had vomiting but she does have constant nausea and she has been eating and drinking poorly. She has had some di arrhea. No blood in her stool. 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 She has had multiple ERCP procedures. The most recent was April of 2023 when she had a pancreatic stent placed at [facility]. She was briefly hospitalized here after that episode with a flare of pancreatitis. She is now transferred her care to the [facility] in [place]. They have done a nerve block in April or May 2023 which was effective at controlling her pain. She has not had significant pain problems except a brief episode in August. At that time she went to the [place] emergency department but was not admitted. She previously was on chronic opioids but has been weaned off chronic opioids as of May 2023. Her last prescription of hydromorphone was for 2 mg tablets, number 30, on 06/11/2023. She improved over the next two days and is discharging home today with her usual opioids for pain, tolerating a general diet. [facility]... Discharge [facility]: [facility] scheduled Pita Springer MD 12/01/23 1353 Please review the Discharge Summary for details of the care rendered, as well as any necessary or recommended follow up care the patient may require. Hospital records uploaded by the [facility] to [employer] via [employer]. Records also available to view in JLV within the Imaging and [facility] Summaries and Documents widgets. The patient has a PACT RECALL scheduled for 03/27/24, please assess and consider PACT appointment in relation to both hospital discharge recommendations, and hospital discharge date. /lilia/ Parish Garcaí MA, PHN, RN-BC interventional radiologist Technology Architect Signed: 12/05/2023 08:39 Receipt Acknowledged By: 12/05/2023 09:12 /es/ TALI MARCUM REGISTERED NURSE 12/05/2023 08:44 /lilia/ EMIR GRACIA DNP,BODY MAKER,PAMELLAS --- Original Document --- 11/29/23 [facility] PRESENTING CARE COORD PLAN NOTE: Emergency Notification Intake Date Presenting to the Facility: November Method of Contact: Notified from LOVEFiLM worklist Notification ID: [id number] [facility] Referral #: [facility] Name: Hospital: [facility] Address: City: [place] State: [place] Zip Code: Phone : [facility] Facility Point of Contact: Name: Phone: Chief complaint: ABDOMINAL PAIN Primary Diagnosis: Disposition Admitted Route of Admission: Date of Admission: November Admitting Diagnosis: ABDOMINAL PAIN Community Care Provider: Confirm Level of Care: /lilia/ NEGRITO BOGGS RESPIRATORY SCIENTIST Signed: 12/01/2023 14:17 Receipt Acknowledged By: 12/01/2023 15:44 /lilia/ Parish García MA, PHN, RN-BC interventional radiologist Technology Architect for JI MALDONADO 12/02/2023 ADDENDUM STATUS: COMPLETED Records requested and will be uploaded via Epsi when received. /es/ ANA MARIA BARROSO ADVANCED PHONE REPRESENTATIVE Signed: 12/02/2023 14:10 Receipt Acknowledged By: 12/03/2023 08:58 /es/ TALI MARCUM REGISTERED NURSE 12/04/2023 ADDENDUM STATUS: COMPLETED Records requested and will be uploaded via Epsi when received. /es/ JAZMYN FERRER .MaribelAdvanced Farm Equipment Service Technician Signed: 12/04/2023 14:02 11/29/2023 ADDENDUM STATUS: COMPLETED [facility] Scanned Document - Addendum. ED DC record 11.24 [facility] SCANNED DOCUMENT SIGNATURE NOT REQUIRED Electronically Filed: 12/05/2023 by: CLAIRE MIDDLETON MSA 12/05/2023 ADDENDUM STATUS: COMPLETED Records including DC summary uploaded via Epsi for review /lilia/ CLAIRE MIDDLETON MSA Signed: 12/05/2023 07:39 Receipt Acknowledged By: 12/05/2023 08:43 /es/ Parish García MA, PHN, RN-BC interventional radiologist Technology Architect PARISH GARCÍA [facility] December 05, 2023 07:38 AM ADDENDUM: LOCAL TITLE: Addendum STANDARD TITLE: ADDENDUM DATE OF NOTE: DECEMBER 05, 2023@07:38:55 ENTRY DATE: DECEMBER 05, 2023@07:38:56 AUTHOR: CLAIRE RAYN EXP COSIGNER: URGENCY: STATUS: COMPLETED Records including DC summary uploaded via Epsi for review /lilia/ CLAIRE MIDDLETON MSA Signed: 12/05/2023 07:39 Receipt Acknowledged By: 12/05/2023 08:43 /lilia/ Parish García MA, PHN, RN-BC interventional radiologist Technology Architect --- Original Document --- 11/29/23 [facility] PRESENTING CARE COORD PLAN NOTE: Emergency Notification Intake Date Presenting to the Facility: November Method of Contact: Notified from LOVEFiLM worklist Notification ID: [id number] [facility] Referral #: [facility] Name: Hospital: [facility] Address: City: [place] State: [place] Zip Code: Phone : [facility] Point of Contact: Name: Phone: Chief complaint: ABDOMINAL PAIN Primary Diagnosis: Disposition Admitted Route of Admission: Date of Admission: November Admitting Diagnosis: ABDOMINAL PAIN [facility] Provider: Gee Level of Care: /lilia/ NEGRITO BOGGS RESPIRATORY SCIENTIST Signed: 12/01/2023 14:17 Receipt Acknowledged By: 12/01/2023 15:44 /es/ Parish García MA, PHN, RN-BC interventional radiologist Technology Architect for JI MALDONADO 12/02/2023 ADDENDUM STATUS: COMPLETED Records requested and will be uploaded via Epsi when received. /es/ ANA MARIA BARROSO ADVANCED PHONE REPRESENTATIVE Signed: 12/02/2023 14:10 Receipt Acknowledged By: 12/03/2023 08:58 /es/ TALI MARCUM REGISTERED NURSE 12/04/2023 ADDENDUM STATUS: COMPLETED Records requested and will be uploaded via Epsi when received. /es/ JAZMYN FERRER .MaribelAdvanced Farm Equipment Service Technician Signed: 12/04/2023 14:02 11/29/2023 ADDENDUM STATUS: COMPLETED [facility] Scanned Document - Addendum. ED [facility] record 11.29.23 [facility] SCANNED DOCUMENT SIGNATURE NOT REQUIRED Electronically Filed: 12/05/2023 by: CLAIRE MIDDLETON [facility] 12/05/2023 ADDENDUM STATUS: COMPLETED HOSPITAL DISCHARGE CARE COORDINATION NOTE Hospital Name: [facility] Admit date: 11/29/23 Discharge date: 12/01/23 Level of Care: OBS Primary Diagnosis: Abdominal pain Discharge Disposition: Discharge provider recommends and notes the following: Hospital Course Hospital Course: Per H&P: Quintin Paynedorierudy is a 42 year old female 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 About 3 days ago she started having mid epigastric pain that radiates a little bit to the left upper quadrant. She has been taking dilaudid 4 mg every 6 hours without adequate relief. She has not had vomiting but she does have constant nausea and she has been eating and drinking poorly. She has had some di arrhea. No blood in her stool. 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 She has had multiple ERCP procedures. The most recent was April of 2023 when she had a pancreatic stent placed at [facility]. She was briefly hospitalized here after that episode with a flare of pancreatitis. She is now transferred her care to the [facility] in [place]. They have done a nerve block in April or May 2023 which was effective at controlling her pain. She has not had significant pain problems except a brief episode in August. At that time she went to the [place] emergency department but was not admitted. She previously was on chronic opioids but has been weaned off chronic opioids as of May 2023. Her last prescription of hydromorphone was for 2 mg tablets, number 30, on 06/11/2023. She improved over the next two days and is discharging home today with her usual opioids for pain, tolerating a general diet. [facility] this week... Discharge Orders: [facility] with [facility] Friday as previously scheduled Pita Springer MD 12/01/23 0016 Please review the Discharge Summary for details of the care rendered, as well as any necessary or recommended follow up care the patient may require. Hospital records uploaded by the [facility] to [employer] via [employer]. Records also available to view in JLV within the Imaging and [facility] Summaries and Documents widgets. The patient has a PACT RECALL scheduled for 03/27/24, please assess and consider PACT appointment in relation to both hospital discharge recommendations, and hospital discharge date. /lilia/ Parish García MA, PHN, RN-BC interventional radiologist Technology Architect Signed: 12/05/2023 08:39 Receipt Acknowledged By: * AWAITING SIGNATURE * TALI MARCUM * AWAITING SIGNATURE * EMIR GRACIA LYNDZEY A [facility] December 02, 2023 02:08 PM ADDENDUM: LOCAL TITLE: Addendum STANDARD TITLE: ADDENDUM DATE OF NOTE: DECEMBER 02, 2023@14:08:49 ENTRY DATE: DECEMBER 02, 2023@14:08:50 AUTHOR: GARRY BAILEY EXP COSIGNER: URGENCY: STATUS: COMPLETED Records requested and will be uploaded via Epsi when received. /lilia/ ANA MARIA BARROSO ADVANCED PHONE REPRESENTATIVE Signed: 12/02/2023 14:10 Receipt Acknowledged By: 12/03/2023 08:58 /lilia/ TALI MARCUM REGISTERED NURSE --- Original Document --- 11/29/23 [facility] PRESENTING CARE COORD PLAN NOTE: Emergency Notification Intake Date Presenting to the Facility: November Method of Contact: Notified from LOVEFiLM worklist Notification ID: [id number] [facility] Referral #: [facility] Name: Hospital: [facility] Address: City: [place] State: [place] Zip Code: Phone : [facility] Facility Point of Contact: Name: Phone: Chief complaint: ABDOMINAL PAIN Primary Diagnosis: Disposition Admitted Route of Admission: Date of Admission: November Admitting Diagnosis: ABDOMINAL PAIN Community Care Provider: Confirm Level of Care: /lilia/ NEGRITO BOGGS RESPIRATORY SCIENTIST Signed: 12/01/2023 14:17 Receipt Acknowledged By: 12/01/2023 15:44 /es/ Parish García MA, PHN, RN-BC interventional radiologist Technology Architect for JI Singer GARRY DELEON [facility] November 29, 2023 02:15 PM NONVA NOTE: LOCAL TITLE: [facility] PRESENTING CARE COORD PLAN STANDARD TITLE: NONVA NOTE DATE OF NOTE: NOVEMBER 29, 2023@14:15 ENTRY DATE: DECEMBER 01, 2023@14:15:36 AUTHOR: NEGRITO BOGGS EXP COSIGNER: URGENCY: STATUS: COMPLETED [facility] PRESENTING CARE COORD PLAN NOTE Has ADDENDA Emergency Notification Intake Date Presenting to the Facility: November Method of Contact: Notified from ECR worklist Notification ID: [id number] [facility] Referral #: [facility] Name: Hospital: [facility] Address: City: [place] State: [place] Zip Code: Phone : Community Facility Point of Contact: Name: Phone: Chief complaint: ABDOMINAL PAIN Primary Diagnosis: Disposition Admitted Route of Admission: Date of Admission: November Admitting Diagnosis: ABDOMINAL PAIN [facility] Care Provider: Confirm Level of Care: /lilia/ NEGRITO BOGGS RESPIRATORY SCIENTIST Signed: 12/01/2023 14:17 Receipt Acknowledged By: 12/01/2023 15:44 /es/ Parish García MA, PHN, RN-BC interventional radiologist Technology Architect for JI Singer MALDONADO 12/02/2023 ADDENDUM STATUS: COMPLETED Records requested and will be uploaded via Epsi when received. /es/ ANA MARIA BARROSO ADVANCED PHONE REPRESENTATIVE Signed: 12/02/2023 14:10 Receipt Acknowledged By: 12/03/2023 08:58 /es/ TALI MARCUM REGISTERED NURSE 12/04/2023 ADDENDUM STATUS: COMPLETED Records requested and will be uploaded via Epsi when received. /es/ JAZMYN FERRER .MaribelAdvanced Farm Equipment Service Technician Signed: 12/04/2023 14:02 11/29/2023 ADDENDUM STATUS: COMPLETED [facility] Scanned Document - Addendum. ED [facility] record 5.11.24 [facility] SCANNED DOCUMENT SIGNATURE NOT REQUIRED Electronically Filed: 12/05/2023 by: CLAIRE MIDDLETON MSA 12/05/2023 ADDENDUM STATUS: COMPLETED Records including DC summary uploaded via Epsi for review /lilia/ CLAIRE MIDDLETON MSA Signed: 12/05/2023 07:39 Receipt Acknowledged By: 12/05/2023 08:43 /es/ Parish García MA, PHN, RN-BC interventional radiologist Technology Architect 12/05/2023 ADDENDUM STATUS: COMPLETED HOSPITAL DISCHARGE CARE COORDINATION NOTE Hospital Name: [facility] Admit date: 11/29/23 Discharge date: 12/01/23 Level of Care: OBS Primary Diagnosis: Abdominal pain Discharge Disposition: Discharge provider recommends and notes the following: Hospital Course Hospital Course: Per H&P: Quintin Zavala is a 42 year old female 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 About 3 days ago she started having mid epigastric pain that radiates a little bit to the left upper quadrant. She has been taking dilaudid 4 mg every 6 hours without adequate relief. She has not had vomiting but she does have constant nausea and she has been eating and drinking poorly. She has had some di arrhea. No blood in her stool. 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 She has had multiple ERCP procedures. The most recent was April of 2023 when she had a pancreatic stent placed at [facility]. She was briefly hospitalized here after that episode with a flare of pancreatitis. She is now transferred her care to the [facility] in [place]. They have done a nerve block in April or May 2023 which was effective at controlling her pain. She has not had significant pain problems except a brief episode in August. At that time she went to the [place] emergency department but was not admitted. She previously was on chronic opioids but has been weaned off chronic opioids as of May 2023. Her last prescription of hydromorphone was for 2 mg tablets, number 30, on 06/11/2023. She improved over the next two days and is discharging home today with her usual opioids for pain, tolerating a general diet. [facility] this week... Discharge Orders: [facility] with [facility] as previously scheduled Pita Springer MD 12/01/23 [id number] Please review the Discharge Summary for details of the care rendered, as well as any necessary or recommended follow up care the patient may require. Hospital records uploaded by the [facility] to [employer] via [employer]. Records also available to view in JLV within the Imaging and [facility] Summaries and Documents widgets. The patient has a PACT RECALL scheduled for 03/27/24, please assess and consider PACT appointment in relation to both hospital discharge recommendations, and hospital discharge date. /lilia/ Parish García MA, PHN, RN- interventional radiologist Technology Architect Signed: 12/05/2023 08:39 Receipt Acknowledged By: * AWAITING SIGNATURE * TALI MARCUM * AWAITING SIGNATURE * EMIR GRACIA [facility]
--- OUTSIDE RECORDS SUMMARY | 2023-12-21 01:04 | XMS_ITS | Encounter Summary ---
Author Name [employer] [facility] [employer] Organization [facility] Address [address] [place] [address] Care Team Providers Care Japanese Professor Name Role Phone EMIR GRACIA Primary Care Provider Unavailabl e Selected Encounter This section includes the information on record at ID for the Encounter. Date/Time Encounter Type Encounter Description Reason Provider Source December 05, 2023 01:20 PM FLUOROGUIDE FOR SPINE INJECT PAIN CLINIC ICD-10-CM R10.9 Unspecified abdominal pain EMIR GRACIA Lorie Encounter Template Text not used by ID Assessments - Encounter Diagnoses This section includes the primary and secondary diagnoses documented for the Encounter. Date/Time Primary/Secondary Diagnosis Diagnosis Name Provider Source December 05, 2023 04:39 PM PRIMARY Unspecified abdominal pain VALERIE BREEN [facility] Plan of Treatment: Future Appointments (+ [...] Appointment Type Appointme nt Facility Name December 16, 2023 02:00 PM AMB[facility]ATORY [facility] Dec 30, 2023 01:00 PM [facility] Jan 13, 2024 02:00 PM [facility] Active, Pending, and Scheduled Orders This section [...] Order ELASTASE-1,PANC STL STOOL FECES SP ONCE [facility] November 19, 2023 12:00 AM Laboratory - Chemi stry Order IGA PLASMA SP ONCE [facility] November 19, 2023 12:00 AM Laboratory - Chemi stry Order TTG AB,IGA SERUM SP ONCE [facility] November 19, 2023 12:00 AM Laboratory - Chemi stry Order ENTERIC PATHOGEN PCR PANEL STOOL FECES SP ONCE [facility] November 19, 2023 12:00 AM Laboratory - Microbiology Order OVA & PARASITES FECAL FECES SP ONCE [facility] December 05, 2023 02:27 PM Laboratory - Chemi stry Order BLOOD GAS PANEL FOR ICU ARTERIAL BLOOD STAT WC [facility] December 12, 2023 03:21 PM Laboratory - Chemi stry Order CALPROTECTIN,STOOL STOOL FECES SP ONCE [facility] Lab Results: +/- 30 days of the encounter This section includes the Chemistry and Hematology Lab Results on record with ID for the patient. Radiology Reports and Pathology Reports are provided separately, in subsequent sections. Lab Results This section contains the Chemistry/Hematology Results that were resulted 30 days before or 30 daysafter the date of the Encounter. Date/Time Source Result Type Result - Unit Interpretation Reference Range Comment December 05, 2023 02:20 PM [facility] EXTRA RED TUBE Specimen Type: SERUM No comment entered. Ordering Provider: NELSON RONQUILLO Report Released Date/Time: December 05, 2023 02:39 PM Reporting Lab: [facility] [id number] Performing Lab: [facility] [id number] EXTRA RED TUBE RECEIVED December 05, 2023 02:20 PM [facility] CODE BLUE(LYTE,CR,UN,GL,MG,CA,PHOS,TROP) Specimen Type: PLASMA No comment entered. Ordering Provider: NELSON RONQUILLO Report Released Date/Time: December 05, 2023 02:27 PM Reporting Lab: [facility] [id number] Performing Lab: [facility] [id number] CREATININE 1.1 mg/dL H 0.5-1.0 UREA NITROGEN 10 mg/dL 7-20 GLUCOSE 101 mg/dL H 70-100 SODIUM 138 mmol/L 136-145 POTASSIUM 3.8 mmol/L 3.5-5.1 CHLORIDE 107 mmol/L 98-107 CO2 22 mmol/L 22-29 CALCIUM 9.3 mg/dL 8.4-10.2 PHOSPHORUS 3.5 mg/dL 2.3-4.7 MAGNESIUM 1.9 mg/dL 1.6-2.6 ANION GAP 9 mmol/L 5-15 .CREAT EGFR(CKD-EPI) 64 >60 TROPONIN I, HS <3 <14 December 05, 2023 02:20 PM [facility] LACTIC ACID Specimen Type: PLASMA No comment entered. Ordering Provider: NELSON RONQUILLO Report Released Date/Time: December 05, 2023 02:27 PM Reporting Lab: [facility] [id number] Performing Lab: [facility] [id number] LACTIC ACID 1.7 mmol/L 0.5-2.2 December 05, 2023 02:20 PM [facility] CBC Specimen Type: BLOOD No comment entered. Ordering Provider: NELSON RONQUILLO Report Released Date/Time: December 05, 2023 02:27 PM Reporting Lab: [facility] [id number] Performing Lab: [facility] [phone] WBC 11.50 10*3/uL H 4.0-11.0 RBC 4.83 10*6/uL 4.0-5.4 HGB 13.6 g/dL 11.5-16 HCT 39.8 34.5-48 MCV 82.4 fL 80-100 MCH 28.2 pg 27-33 MCHC 34.2 g/dL 32.0-37.5 PLT 443 10*3/uL H 150-400 MPV 9.1 fL 7.4-10.4 RDW 12.5 11.5-14.5 December 05, 2023 02:20 PM [facility] PROTHROMBIN TIME/INR Specimen Type: PLASMA No comment entered. Ordering Provider: NELSON RONQUILLO Report Released Date/Time: December 05, 2023 02:27 PM Reporting Lab: [facility] [phone] Performing Lab: [facility] [id number] .INR 1.2 H 0.8-1.1 .PT 13.5 s H 9.4-12.5 December 05, 2023 02:20 PM [facility] EXTRA GOLD GEL TUBE Specimen Type: SERUM No comment entered. Ordering Provider: NELSON RONQUILLO Report Released Date/Time: December 05, 2023 02:39 PM Reporting Lab: [facility] [phone] Performing Lab: [facility] [id number] EXTRA GOLD GEL TUBE RECEIVED December 05, 2023 02:18 PM [facility] POC ABG/ELECTROLYTES Specimen Type: VENOUS BLOOD Comment: FIO2 = 40% Patient Temp: 36.6 C Sample Type = VENOUS Ordering Provider: ULYSSES ELDER Report Released Date/Time: December 06, 2023 08:24 PM Reporting Lab: [facility] [id number] Performing Lab: [facility] [phone] POC PH 7.382 7.31-7.41 POC PCO2 35.0 [...] PO2 AT PAT TEMP 35 mm[Hg] 35.0-40.0 Vital Signs: All taken on the encounter date This section contains inpatient and outpatient Vital Signs collected on the date of the Encounter. Date/Time Temperature Pulse Blood Pressure Respiratory Rate SP02 Pain Height Weight Body Mass Index Source December 05, 2023 03:21 PM 98.3 70 155/86 16 0 [place] [facility] December 05, 2023 02:45 PM 84 143/91 100 [place] [facility] December 05, 2023 02:44 PM 130 170/100 99 [place] [facility] December 05, 2023 02:19 PM 102 178/104 99 [facility] December 05, 2023 02:15 PM 61 149/84 [facility] Encounter Notes: All associated encounter notes This section contains the clinical notes associated to the Encounter. Date/Time Encounter Note(s) Provider Source December 09, 2023 01:38 PM ADDENDUM: LOCAL TITLE: Addendum STANDARD TITLE: ADDENDUM DATE OF NOTE: DECEMBER 09, 2023@13:38:24 ENTRY DATE: DECEMBER 09, 2023@13:38:26 AUTHOR: BETZY BOUDREAUX EXP COSIGNER: URGENCY: STATUS: COMPLETED Based upon my review of the patient's chart, procedural imaging, and discussion with Dr. Santos, there does not appear to be a clear/decisive etiology regarding the cause of the patient's symptoms, however the combination of muscle rigidity, hypertension, and tachycardia without other sensory disturbances commonly seen with local anesthetic toxicity, I suspect this was most likely anxiety related which may have been triggered by either systemic updake of epinephrine or local anesthetic. PO anxiolysis prior to repeat procedure is recommended and the patient would be eligible to repeat the procedure in approximately 12 weeks as steroid were administered during this procedure. For repeat procedure, please schedule with myself. /lilia/ BETZY BOUDREAUX MD PAIN MEDICINE PHYSICIAN Signed: 12/09/2023 13:46 Receipt Acknowledged By: 12/09/2023 14:30 /lilia/ RIZWAN SANTOS MD STAFF PHYSICIAN 12/09/2023 14:50 /lilia/ ARMANI HEIN RN, BSN --- Original Document --- 12/08/23 PATIENT CONTACT NOTE: Called Pt 12/06 evening to check in. Left VM. Called again today, 12/07 again. Again left VM. Cosigning RN to made an additional attempt to contact Pt to determine how she is doing after Friday's procedure. /lilia/ RIZWAN SANTOS MD STAFF PHYSICIAN Signed: 2023 11:56 Receipt Acknowledged By: 12/09/2023 13:00 /sandra HEIN RN, BSN 12/09/2023 ADDENDUM STATUS: COMPLETED Wilda made contact with Adrian. She stated she is feeling well, no residual symptoms. She denies any questions except for whether or not she is able to have this procedure again. She stated this procedure gave her significant amount of pain relief and she would like it repeated if possible. /sandra HEIN RN, BSN Signed: 12/09/2023 13:10 Receipt Acknowledged By: 12/09/2023 13:38 /lilia/ BETZY BOUDREAUX MD PAIN MEDICINE PHYSICIAN 12/09/2023 13:15 /lilia/ RIZWAN SANTOS MD STAFF PHYSICIAN 12/09/2023 ADDENDUM STATUS: COMPLETED Will defer to Dr. Boudreaux in regards to recommendations for repeat procedures in the future. /sandra SANTOS MD STAFF PHYSICIAN Signed: 12/09/2023 13:17 12/09/2023 ADDENDUM STATUS: UNSIGNED You may not VIEW this UNSIGNED Addendum. BETZY BOUDREAUX [facility] December 09, 2023 01:00 PM ADDENDUM: LOCAL TITLE: Addendum STANDARD TITLE: ADDENDUM DATE OF NOTE: DECEMBER 09, 2023@13:00:08 ENTRY DATE: DECEMBER 09, 2023@13:00:09 AUTHOR: ARMANI HEIN COSIGNER: URGENCY: STATUS: COMPLETED Wilda made contact with . She stated she is feeling well, no residual symptoms. She denies any questions except for whether or not she is able to have this procedure again. She stated this procedure gave her significant amount of pain relief and she would like it repeated if possible. /sandra HEIN RN, BSN Signed: 12/09/2023 13:10 Receipt Acknowledged By: 12/09/2023 13:38 /lilia/ BETZY BOUDREAUX MD PAIN MEDICINE PHYSICIAN 12/09/2023 13:15 /lilia/ RIZWAN SANTOS MD STAFF PHYSICIAN --- Original Document --- 12/08/23 PATIENT CONTACT NOTE: Called Pt 12/06 evening to check in. Left VM. Called again today, 12/07 again. Again left VM. Cosigning RN to made an additional attempt to contact Pt to determine how she is doing after Friday's procedure. /sandra SANTOS MD STAFF PHYSICIAN Signed: 2023 11:56 Receipt Acknowledged By: 12/09/2023 13:00 /sandra HEIN RN, BSN 12/09/2023 ADDENDUM STATUS: COMPLETED Will defer to Dr. Boudreaxu in regards to recommendations for repeat procedures in the future. /sandra SANTOS MD STAFF PHYSICIAN Signed: 12/09/2023 13:17 12/09/2023 ADDENDUM STATUS: UNSIGNED You may not VIEW this UNSIGNED Addendum. ARMANI HEIN [facility] 2023 11:54 AM REPORT OF CONTACT: LOCAL TITLE: PATIENT CONTACT NOTE STANDARD TITLE: REPORT OF CONTACT DATE OF NOTE: 2023@11:54 ENTRY DATE: 2023@11:54:48 AUTHOR: RIZWAN SANTOS EXP COSIGNER: URGENCY: STATUS: COMPLETED PATIENT CONTACT NOTE Has ADDENDA Called Pt 12/06 evening to check in. Left VM. Called again today, 12/07 again. Again left VM. Cosigning RN to made an additional attempt to contact Pt to determine how she is doing after Friday's procedure. /sandra SANTOS MD STAFF PHYSICIAN Signed: 2023 11:56 Receipt Acknowledged By: 12/09/2023 13:00 /sandra HEIN RN, BSN 12/09/2023 ADDENDUM STATUS: COMPLETED Wilda made contact with Adrian. She stated she is feeling well, no residual symptoms. She denies any questions except for whether or not she is able to have this procedure again. She stated this procedure gave her significant amount of pain relief and she would like it repeated if possible. /sandra HEIN RN, BSN Signed: 12/09/2023 13:10 Receipt Acknowledged By: 12/09/2023 13:38 /sandra BOUDREAUX MD PAIN MEDICINE PHYSICIAN 12/09/2023 13:15 /sandra SANTOS MD STAFF PHYSICIAN 12/09/2023 ADDENDUM STATUS: COMPLETED Will defer to Dr. Boudreaux in regards to recommendations for repeat procedures in the future. /sandra SANTOS MD STAFF PHYSICIAN Signed: 12/09/2023 13:17 12/09/2023 ADDENDUM STATUS: COMPLETED Based upon my review of the patient's chart, procedural imaging, and discussion with Dr. Santos, there does not appear to be a clear/decisive etiology regarding the cause of the patient's symptoms, however the combination of muscle rigidity, hypertension, and tachycardia without other sensory disturbances commonly seen with local anesthetic toxicity, I suspect this was most likely anxiety related which may have been triggered by either systemic updake of epinephrine or local anesthetic. PO anxiolysis prior to repeat procedure is recommended and the patient would be eligible to repeat the procedure in approximately 12 weeks as steroid were administered during this procedure. For repeat procedure, please schedule with myself. /sandra BOUDREAUX MD PAIN MEDICINE PHYSICIAN Signed: 12/09/2023 13:46 Receipt Acknowledged By: 12/09/2023 14:30 /sandra SANTOS MD STAFF PHYSICIAN 12/09/2023 14:50 /sandra HEIN RN, BSN 12/09/2023 ADDENDUM STATUS: COMPLETED Attempted to reach to relay Dr. Boudreaux' s message, no answer. Left VM stating she can repeat procedure in 12 weeks. Left our call back number and requested she call back if she wishes to discuss plan for care for next procedure or when she is ready to schedule repeat. /sandra HEIN RN, BSN Signed: 12/09/2023 14:54 ALBANIARODNEYRIZWAN Taylor [facility] December 05, 2023 03:01 PM NURSING INPATIENT NOTE: LOCAL TITLE: [facility] NURSING PROGRESS NOTE STANDARD TITLE: NURSING INPATIENT NOTE DATE OF NOTE: DECEMBER 05, 2023@15:01 ENTRY DATE: DECEMBER 05, 2023@15:01:58 AUTHOR: CARLOS PEREZ COSIGNER: URGENCY: STATUS: COMPLETED [facility] NURSING PROGRESS NOTE Has ADDENDA -- Rapid Response Note (INSPECTOR CLIP ON SUNGLASSES) -- INSPECTOR CLIP ON SUNGLASSES Team Note Triggers called for: New neurological change or deficit Respiratory rate < 8 or > 25 Shortness of Breath Changes in oxygen device Visibly labored breathing or respiratory distress Background: PTSD, depression Assessment: Blood Pressure:162/87 Heart Rate:110 Cardiac Rhythm:ST Temperature:37.4 Pain? No Oxygen Saturation:100 Oxygen delivery:5L NC Respiratory Rate:up to 40s Lung Sounds: Shortness of breath?Yes Level of Consciousness: Alert Recommendations/Interventi ons: Labs: VBG Metabolic Panel Tests: Airway/Breathing: Supplemental oxygen Circulation: IV placed Comments: Patient never lost consciousness during pain procedure. Brief hearing loss in one ear. Jaw spasmed shut as a side effect of procedure. INSPECTOR CLIP ON SUNGLASSES concern was primarily for airway protection and secretion management. Situation resolved spontaneously after a few minutes. Transfer to ED for supportive care. SO at bedside. Disposition: Emergency Department /lilia/ CARLOS PEREZ RN REGISTERED NURSE Signed: 12/05/2023 15:11 12/05/2023 ADDENDUM STATUS: COMPLETED S: Responded to tacos trujillo called overhead. Per RENEE PEDERSEN, patient had undergone R sphlanchnic nerve block for chronic pain with lidocaine + dexamethasone. Tolerated procedure without complication. While starting to perform L sphlanchnic nerve block patient began to note R hearing loss. Procedure was halted until return of hearing. Prior to needle contacting nerve patient began endorsing neck fasiculations and procedure was aborted. Patient then began experiencing trismus. Code blue called for respiratory distress. O: Vitals: HR 100-110, BP 170/110, O2 99% on 6L Exam: General- patient laying supine on table, alert, able to nod yes/no to questions HEENT-trismus, EOMI Cardiac- tachycardic, no m/r/g Respiratory-upper airway gurgling, lungs clear to auscultation A: 42 y.o. F presented to pain clinic for bilateral sphlanchnic nerve block complicated by acute neck fasiculations and trismus concerning for inability to protect airway prompting code blue activation for respiratory distress. Trismus self resolved within 5 minutes following arrival and vital signs stabalized. Unclear etiology of fasiculations + trismus. Patient had previously received lidocaine without complications. Initial concern for seizure activity however patient remained alert and oriented throughout episode, no loss of bowel or bladder, no tongue biting. Seems most consistent with neurologic vs sympathetic response to nerve block. Vitals improved with resolution of trismus. POC labs unrevealing for metabolic abnormalities (Mg, K, Ca within normal limits). P: - Transferred to the ED for further evaluation and observation. Warm handoff provded to ED physician. Katerine Trejo MD Internal Medicine PGY2 /es/ KATERINE TREJO Resident Signed: 12/05/2023 15:38 CAROLS PEREZ [facility] December 05, 2023 02:36 PM NURSING NOTE: LOCAL TITLE: [facility] NSG IV INSERTION AND MAINTENANCE STANDARD TITLE: NURSING NOTE DATE OF NOTE: DECEMBER 05, 2023@14:36 ENTRY DATE: DECEMBER 05, 2023@14:36:57 AUTHOR: REJI MORENO EXP COSIGNER: URGENCY: STATUS: COMPLETED Version 2.2 Charting in accordance with ID APPROVED [place] STANDARD (IDAES) ACUTE INPATIENT/REHABILITATION NURSING ADMISSION SCREENING, ASSESSMENT, AND STANDARDS OF CARE IV Line Insertion and Maintenance Peripheral IV Line #1: Insertion: Date/Time: November@14:20 Inserted by (name): report writer Insertion Aid: Ultrasound guided Location: Left, Antecubital Gauge: 18 Assessment: Location: Gauge: Dressing Condition: Clean, dry, intact Site Condition: No redness, swelling, pain Line Status: Capped Flushed Positive blood return /lilia/ REJI MORENO LPN Signed: 12/05/2023 14:38 REJI MORENO [facility] December 05, 2023 01:46 PM PAIN CONSULT: LOCAL TITLE: IMAGING REQUEST CONSULT STANDARD TITLE: PAIN CONSULT DATE OF NOTE: DECEMBER 05, 2023@13:46 ENTRY DATE: DECEMBER 05, 2023@13:46:57 AUTHOR: NEGRITO CERNA EXP COSIGNER: URGENCY: STATUS: COMPLETED Images were taken to facilitate procedure carried out by medical provider. <5mL. of OmniPaque 180 was used for this procedure. /lilia/ Feliciano ELAINE(R) BILING[employer] CALL CENTER REPRESENTATIVE Signed: 12/05/2023 13:47 NEGRITO CERNA [facility] December 05, 2023 01:40 PM PAIN PROCEDURE NOT E: LOCAL TITLE: PAIN INTERVENTIONAL PROCEDURE NOTE STANDARD TITLE: PAIN PROCEDURE NOTE DATE OF NOTE: DECEMBER 05, 2023@13:40 ENTRY DATE: DECEMBER 05, 2023@06:58:08 AUTHOR: MATT BREEN EXP COSIGNER: URGENCY: STATUS: COMPLETED PAIN INTERVENTIONAL PROCEDURE NOTE Has ADDENDA PM&R PAIN INTERVENTIONAL PROCEDURE NOTE Side: Bilateral Location: Lumbar spine Level: L1 Procedure: Splanchnic Nerve Block Preprocedural diagnosis: Chronic abdominal pain Postprocedural diagnosis: Chronic abdominal pain Needle: Spinal 22G 5in, 18G introducer needle Injectate: Lidocaine 1% with epinephrine 15 mL Ropivacaine 0.5% 9.0 mL Solumedrol 20 mg Omni 180 5 mL The above noted introducer needle was slowly advanced under fluoroscopic guidance towards the angle formed by the transverse process and the vertebral body. The spinal needle was then gently repositioned as necessary [...] of injectate as noted above was injected. The needle was removed and the puncture site was covered with a bandage. Attention was then turned to the contralateral side The above introducer needle was slowly advanced under fluoroscopic guidance towards the angle formed by the transverse process and the vertebral body. Before the introducer was at its final position the patient began complaining of fasciculations in her neck. She was tachycardic into the 100s and her BP was elevated to 170s/100s. At this point the decision was made to abort the procedure and the patient was taken to the recovery area and was attached to the appropriate monitors. The patient was having rigidity of her masseter muscles and was unable to open her mouth, however she was still oxygenating. At this point a Smart Code was called and oxygen was applied via nasal canal. Throughout the entire incident the patient did not desaturate and remained hypertensive and tachycardic. She eventually stabilized without any additional interventions and was taken to the ED hemodynamically stable and talking in full sentences. The etiology of her symptoms are unclear but likely secondary to anxiety and possible aspiration event leading to possible laryngospasm and masster muscle spasm. Discussion: Today we performed a lumbar sympathetic [...] up with their PCP team and our special education case manager RN (Norma Carpio) by phone. Patient may [...] recommendations: None Patient was seen with Dr. Santos, who was present for the carbone portions of the procedure. /lilia/ LISA BREEN MD PAIN FELLOW Signed: 12/05/2023 16:40 Receipt Acknowledged By: 12/07/2023 20:51 /lilia/ BETZY BOUDREAUX MD PAIN MEDICINE PHYSICIAN 2023 08:24 /lilia/ RIZWAN SANTOS MD STAFF PHYSICIAN 2023 ADDENDUM STATUS: COMPLETED Note, injectate listed above is incorrect. Superficial anesthesia: Lidocaine 1% for superficial anesthesia: 15 mL divided between 2 sides Injectate was as follows: Lidocaine 1% with epinephrine for needle placement verification on R as described above, 2 mL Lidocaine 2% 9 mL on R, procedure aborted prior to administration of injectate on L Dexamethasone 5 mL on R, procedure aborted prior to administration of injectate on L Omni 180 5 mL Note, etiology of Pt's response to procedure is unclear. Potentially panic response as described above by Dr. Breen, potentially LAST. Although tachycardia and hypertension are symptomatic for early stages of LAST, the 's muscle rigidity is not. Additionally, symptoms resolved within a time frame shorter than I would have expected for LAST. She was taken to the ED, from which she was discharged without alteration in vitals and without development of further symptoms. The procedure was performed with Dr. Breen (Pain Medicine Fellow). I was present for all critical portions of the procedure including the time out, site marking, final needle positioning, image interpretation, and injection. /lilia/ RIZWAN SANTOS MD STAFF PHYSICIAN Signed: 2023 08:31 MATT BREEN [facility] December 05, 2023 12:57 PM PHYSICAL MEDICINE REHAB NURSING NOTE: LOCAL TITLE: REHAB MEDICINE CLINIC NURSING NOTE STANDARD TITLE: PHYSICAL MEDICINE REHAB NURSING NOTE DATE OF NOTE: DECEMBER 05, 2023@12:57 ENTRY DATE: DECEMBER 05, 2023@12:57:09 AUTHOR: ARMANI HEIN COSIGNER: URGENCY: STATUS: COMPLETED PM&R Interventional Pain Procedure Pre-procedure Patient escorted to clinic via Ambulatory Patient is scheduled for: bilateral splanchnic nerve block with steroids Patient was identified by using full name and social security number and/or date of : Yes Procedure(s) to be performed was(were) discussed with patient and verified to be correct: Yes Patient/Family/Caregiver indicated readiness to learn Yes Barriers to learning: wears glasses, hearing aids, anxiety Patient and/or family provided with appropriate education and patient and/or family acknowledged understanding: Yes Patient states name of driver license agent post procedure is: Rusty Medications reviewed: Yes Active Outpatient Medications (including [...] 4MG TAB TAKE ONE TABLET BY MOUTH ACTIVE EVERY 6 HOURS NEEDED FOR NAUSEA AND [...] to pain procedure: No Allergy to: Temperature: 98.2 F [36.8 C] (12/05/2023 12:55) Pulse: 73 (12/05/2023 12:55) Pulse Oximetry: 100% (12/05/2023 12:55) Respirations: 16 (12/05/2023 12:55) Blood Pressure: 137/88 (12/05/2023 12:55) Pain: 4 (12/05/2023 12:55) PT____ INR - NONE FOUND No data available No data available takes blood thinning medications: Denies ASA/ASA containing products have been held per protocol: Denies Fish Oil or Vitamin E in the last 6 days: Denies NSAIDS in the last 7 days: Denies Phosphodiesterase Inhibitors (e.g. Sildenafil, Vardenafil, Tadalafil, Cilostazol) in the last 48 hours: Not applicable Diabetic: Denies HEMOGLOBIN A1C 4.8 (03/27/23) Antibiotics in the last week: Denies Sick or had any fever/chills in the last week: Denies Fractures in the past 12 weeks: Denies Surgical procedures (including dental) within the last 3 months: Denies Upcoming planned surgeries: Denies Rash or any open wounds: Denies Steroid injections within the last 3 months: Denies Recent or scheduled vaccines within 2 weeks of this procedure: Denies Plans to travel outside of the country or to a place in the [place] where there is not access to medical care within 4 days following the procedure: Denies Patient is : Denies Patient ate solid food, broth, Jell-O or [...] preview prior to procedure. Procedure explained by: Jamshid Written informed consent obtained by Jamshid , using IMed consent. Informed Consent Progress Note containing risks, benefits and alternatives documented. Correct site marked by attending physician. PM&R Interventional Pain Procedure Procedure: Site Marking: Site marked, then verified by attending physician. ---Time out checklist---- Confirm correct patient identity: Yes Confirm Procedure To Be Performed: Yes Confirm Site of the Procedure, Including Laterality: Yes Confirm Valid i-MED Consent: Yes Confirm Patient Position: Yes Confirm Procedure Site has been Marked Appropriately and that the Site of the Ortiz is Visible After Prep and Draping: Yes Pertinent Medical Images Have Been Confirmed, if applicable: Yes Confirm allergies: Yes Fire risk assessment completed: Not Applicable Checklist Comment: Procedure started: 1339 Procedure ended: Staff Physician: Sha Medical Fellow: Jamshid RN: Fran Filter Press Operator: Nahum Nursing observations: Patient assisted to position Prone to facilitate procedure. Patient is prepped and draped in sterile fashion, per Jamshid/Sha . Patient is continually assessed for comfort and safety (See MD procedure note for procedure and medication specifics) . Post injection, puncture wound was cleaned and dressed with tegaderm. Patient assisted into a sitting position and assessed for dizziness, nausea, weakness or any additional complaints. Dressing clean, dry and intact; site free of hematoma/swelling. Complications noted: procedure aborted Nita reported loss of hearing/ringing in right ear for a couple minutes that resolved without intervention. Blood pressure checked at this time (1415): BP 149/84 HR 61. A few min later, it was noted her HR was increasing, baseline HR during procedure was 58-65, HR increased to 90, BP checked at this time 170/104. Nita reported fasciculations in her neck then developed jaw clenching. Needle taken out and procedure was aborted. Nita brought to recovery area, code called. alert at this time. When clenched jaw resolved, she also reported no loss consciousness. Pt alert and oriented, able to verbal, BP 143/91 HR 84 prior to transfer to ED. She was transfered in wheelchair. /liila/ ARMANI HEIN RN, BSN Signed: 12/05/2023 15:10 ARMAIN HEIN [facility]
--- OUTSIDE RECORDS SUMMARY | 2023-12-21 01:04 | XMS_ITS | Encounter Summary ---
Author Name [employer] of Vetera Affairs Organization [facility] Address [address] [place] [address] Care Team Providers Care Speech And Language Clinician Name Role Phone EMIR GRACIA Primary Care Provider Unavailabl e Selected Encounter This section includes the information on record at [place] for the Encounter. Date/Time Encounter Type Encounter Description Reason Provider Source December 05, 2023 09:12 AM Outpatient Encounter EVENT (HISTORICAL) TALI MARCUM Encounter Template Text not used by [place] Plan of Treatment: Future Appointments (+ 6 months) and Future Tests (+/- 45 days) The Plan of Treatment section includes future care activities for the patient from all [place] treatmentfacilities. This section includes future appointments and future orders which are active, pending or scheduled. Future Appointments This section includes appointments that were scheduled to occur 6 months from the date of the Encounter, up to a maximum of 20 appointments. The data comes from all [place] treatment facilities. Appointment Date/Time Appointment Type Appointme nt Facility Name December 16, 2023 02:00 PM AMBULATORY - PSYCHIATRY [facility] Dec 30, 2023 01:00 PM [facility] Jan 13, 2024 02:00 PM AM[facility]ATORY - [facility]ATRY [facility] Active, Pending, and Scheduled Orders This section includes a listing of several types of active, pending, and scheduled orders, including clinic medications orders, diagnostic test orders, procedure orders and consult orders; where the start date of the order is 45 days before the date of the Encounter or 45 days after the date of theEncounter. The data comes from all [place] treatment facilities. Test Date/Time Test Type Test [...] ONCE [facility] December 05, 2023 02:27 PM Laboratory - Chemi stry Order BLOOD GAS PANEL FOR ICU ARTERIAL BLOOD STAT WC [facility] December 12, 2023 03:21 PM Laboratory - Chemi stry Order CALPROTECTIN,STOOL STOOL FECES SP ONCE [facility] Lab Results: +/- 30 days of the encounter This section includes the Chemistry and Hematology Lab Results on record with [place] for the patient. Radiology Reports and Pathology Reports are provided separately, in subsequent sections. Lab Results This section contains the Chemistry/Hematology Results that were resulted 30 days before or 30 daysafter the date of the Encounter. Date/Time Source Result Type Result - Unit Interpretation Reference Range Comment December 05, 2023 02:20 PM [facility] EXTRA RED TUBE Specimen Type: SERUM No comment entered. Ordering Provider: NELSON RONQUILLO Report Released Date/Time: December 05, 2023 02:39 PM Reporting Lab: [facility] [address] Performing Lab: [facility] [address] EXTRA RED TUBE RECEIVED December 05, 2023 02:20 PM [facility] CODE BLUE(LYTE,CR,UN,GL,MG,CA,PHOS,TROP) Specimen Type: PLASMA No comment entered. Ordering Provider: NELSON RONQUILLO Report Released Date/Time: December 05, 2023 02:27 PM Reporting Lab: [facility] [address] Performing Lab: [facility] [address] CREATININE 1.1 mg/dL H 0.5-1.0 UREA NITROGEN 10 mg/dL 7-20 GLUCOSE 101 mg/dL H 70-100 SODIUM 138 mmol/L 136-145 POTASSIUM 3.8 mmol/L 3.5-5.1 CHLORIDE 107 mmol/L 98-107 CO2 22 mmol/L 22-29 CALCIUM 9.3 mg/dL 8.4-10.2 PHOSPHORUS 3.5 mg/dL 2.3-4.7 MAGNESIUM 1.9 mg/dL 1.6-2.6 ANION GAP 9 mmol/L 5-15 .CREAT EGFR(CKD-EPI) 64 >60 TROPONIN I, HS <3 <14 December 05, 2023 02:20 PM [facility] LACTIC ACID Specimen Type: PLASMA No comment entered. Ordering Provider: NELSON RONQUILLO Report Released Date/Time: December 05, 2023 02:27 PM Reporting Lab: [facility] [address] Performing Lab: [facility] [address] LACTIC ACID 1.7 mmol/L 0.5-2.2 December 05, 2023 02:20 PM [facility] CBC Specimen Type: BLOOD No comment entered. Ordering Provider: NELSON RONQUILLO Report Released Date/Time: December 05, 2023 02:27 PM Reporting Lab: [facility] [address] Performing Lab: [facility] [address] WBC 11.50 10*3/uL H 4.0-11.0 RBC 4.83 10*6/uL 4.0-5.4 HGB 13.6 g/dL 11.5-16 HCT 39.8 34.5-48 MCV 82.4 fL 80-100 MCH 28.2 pg 27-33 MCHC 34.2 g/dL 32.0-37.5 PLT 443 10*3/uL H 150-400 MPV 9.1 fL 7.4-10.4 RDW 12.5 11.5-14.5 December 05, 2023 02:20 PM [facility] PROTHROMBIN TIME/INR Specimen Type: PLASMA No comment entered. Ordering Provider: NELSON RONQUILLO Report Released Date/Time: December 05, 2023 02:27 PM Reporting Lab: [facility] [phone] Performing Lab: [facility] [address] .INR 1.2 H 0.8-1.1 .PT 13.5 s H 9.4-12.5 December 05, 2023 02:20 PM [facility] EXTRA GOLD GEL TUBE Specimen Type: SERUM No comment entered. Ordering Provider: NELSON RONQUILLO Report Released Date/Time: December 05, 2023 02:39 PM Reporting Lab: [facility] [address] Performing Lab: [facility] [address] EXTRA GOLD GEL TUBE RECEIVED December 05, 2023 02:18 PM [facility] POC ABG/ELECTROLYTES Specimen Type: VENOUS BLOOD Comment: FIO2 = 40% Patient Temp: 36.6 C Sample Type = VENOUS Ordering Provider: ULYSSES ELDER Report Released Date/Time: December 06, 2023 08:24 PM Reporting Lab: [facility] [address] Performing Lab: [facility] [address] POC PH 7.382 7.31-7.41 POC PCO2 35.0 [...] 03:21 PM 98.3 70 155/86 16 0 [facility] December 05, 2023 02:45 PM 84 143/91 100 [facility] December 05, 2023 02:44 PM 130 170/100 99 [facility] December 05, 2023 02:19 PM 102 178/104 99 [facility] December 05, 2023 02:15 PM 61 149/84 [facility] Encounter Notes: All associated encounter notes This section contains the clinical notes associated to the Encounter. Date/Time Encounter Note(s) Provider Source December 05, 2023 09:12 AM PRIMARY CARE mySBX MESSAGING: LOCAL TITLE: PRIMARY CARE SECURE MESSAGING STANDARD TITLE: PRIMARY CARE SECURE MESSAGING DATE OF NOTE: DECEMBER 05, 2023@09:12 ENTRY DATE: DECEMBER 05, 2023@09:12:05 AUTHOR: TALI MARCUM EXP COSIGNER: URGENCY: STATUS: COMPLETED ------Original Message ----- Sent: 12/05/2023 10:12 AM ET From: TALI MARCUM To: QUINTIN ZAVALA Subject: General:General Inquiry Good morning, Quintin, I see that you were in the hospital recently for abdominal pain. I see you have an appointment with the pain clinic coming up. Is there anything we can help with from a primary care standpoint? Thanks, Vanessa CALDERON /lilia/ TALI MARCUM REGISTERED NURSE Signed: 12/05/2023 09:12 TALI MARCUM [facility]
--- OUTSIDE RECORDS SUMMARY | 2023-12-21 01:04 | XMS_ITS | Encounter Summary ---
Author Name Department of Vetera Affairs Organization Department of Veter[facility] ns Affairs Address [address] [place] [address] Care Team Providers Care Hand Flesher Name Role Phone EMIR GRACIA Primary Care Provider Unavailabl e Selected Encounter This section includes the information on record at [place] for the Encounter. Date/Time Encounter Type Encounter Description Reason Provider Source December 05, 2023 09:12 AM Outpatient Encounter EVENT (HISTORICAL) TALI MARCUM Encounter Template Text not used by [place] Plan of Treatment: Future Appointments (+ 6 [...] 2023 02:00 PM AMBULATORY - [facility]IATRY [facility] Dec 30, 2023 01:00 PM [facility] Jan 13, 2024 02:00 PM AMBULATORY - PS[facility]CHIATRY [facility] [place] [place] Active, Pending, and Scheduled Orders This section includes a listing of several types of active, pending, and scheduled orders, including clinic medications orders, diagnostic test orders, procedure orders and consult orders; where the start date of the order is 45 days before the date of the Encounter or 45 days after the date of theEncounter. The data comes from all [place] treatment facilities. Test Date/Time Test Type Test Details Facility Name November 19, 2023 12:00 AM Laboratory - Chemi stry Order ELASTASE-1,PANC STL STOOL FECES SP ONCE [facility] November 19, 2023 12:00 AM Laboratory - Chemi stry Order TTG AB,IGA SERUM SP ONCE [facility] November 19, 2023 12:00 AM Laboratory - Chemi stry Order IGA PLASMA SP ONCE [facility] November 19, 2023 12:00 AM Laboratory - Chemi stry Order ENTERIC PATHOGEN PCR PANEL STOOL FECES SP ONCE [facility] November 19, 2023 12:00 AM Laboratory - Microbiology Order OVA & PARASITES FECAL FECES SP ONCE [facility] December 05, 2023 02:27 PM Laboratory - Chemi stry Order BLOOD GAS PANEL FOR ICU ARTERIAL BLOOD STAT WC [facility] December 12, 2023 03:21 PM Laboratory - Chemi stry Order CALPROTECTIN,STOOL STOOL FECES SP ONCE [facility] Lab Results: +/- 30 days [...] Range Comment December 05, 2023 02:20 PM [facility] EXTRA RED TUBE Specimen Type: SERUM No comment entered. Ordering Provider: NELSON RONQUILLO Report Released Date/Time: December 05, 2023 02:39 PM Reporting Lab: [facility] [phone] Performing Lab: [facility] [address] EXTRA RED TUBE RECEIVED December 05, 2023 02:20 PM [facility] CODE BLUE(LYTE,CR,UN,GL,MG,CA,PHOS,TROP) Specimen Type: PLASMA No comment entered. Ordering Provider: NELSON RONQUILLO Report Released Date/Time: December 05, 2023 02:27 PM Reporting Lab: [facility] [phone] Performing Lab: [facility] [address] CREATININE 1.1 mg/dL H 0.5-1.0 UREA NITROGEN 10 mg/dL 7-20 GLUCOSE 101 mg/dL H 70-100 SODIUM 138 mmol/L 136-145 POTASSIUM 3.8 mmol/L 3.5-5.1 CHLORIDE 107 mmol/L 98-107 CO2 22 mmol/L 22-29 CALCIUM 9.3 mg/dL 8.4-10.2 PHOSPHORUS 3.5 mg/dL 2.3-4.7 MAGNESIUM 1.9 mg/dL 1.6-2.6 ANION GAP 9 mmol/L 5-15 .CREAT EGFR(CKD-EPI) 64 >60 TROPONIN I, HS <3 <14 December 05, 2023 02:20 PM [facility] LACTIC ACID Specimen Type: PLASMA No comment entered. Ordering Provider: NELSON RONQUILLO Report Released Date/Time: December 05, 2023 02:27 PM Reporting Lab: [facility] [phone] Performing Lab: [facility] [address] LACTIC ACID 1.7 mmol/L 0.5-2.2 December 05, 2023 02:20 PM [facility] CBC Specimen Type: BLOOD No comment entered. Ordering Provider: NELSON RONQUILLO Report Released Date/Time: December 05, 2023 02:27 PM Reporting Lab: [facility] [address] Performing Lab: [facility] [address] WBC 11.50 10*3/uL H 4.0-11.0 RBC 4.83 10*6/uL 4.0-5.4 HGB 13.6 g/dL 11.5-16 HCT 39.8 34.5-48 MCV 82.4 fL 80-100 MCH 28.2 pg 27-33 MCHC 34.2 g/dL 32.0-37.5 PLT 443 10*3/uL H 150-400 MPV 9.1 fL 7.4-10.4 RDW 12.5 11.5-14.5 December 05, 2023 02:20 PM [facility] PROTHROMBIN TIME/INR Specimen Type: PLASMA No comment entered. Ordering Provider: NELSON RONQUILLO Report Released Date/Time: December 05, 2023 02:27 PM Reporting Lab: [facility] [address] Performing Lab: [facility] [address] .INR 1.2 H 0.8-1.1 .PT 13.5 s H 9.4-12.5 December 05, 2023 02:20 PM [facility] EXTRA GOLD GEL TUBE Specimen Type: SERUM No comment entered. Ordering Provider: NELSON RONQUILLO Report Released Date/Time: December 05, 2023 02:39 PM Reporting Lab: [facility] [address] Performing Lab: [facility] [address] EXTRA GOLD GEL TUBE RECEIVED December 05, 2023 02:18 PM [facility] POC ABG/ELECTROLYTES Specimen Type: VENOUS BLOOD Comment: FIO2 = 40% Patient Temp: 36.6 C Sample Type = VENOUS Ordering Provider: ULYSSES ELDER Report Released Date/Time: December 06, 2023 08:24 PM Reporting Lab: [facility] [address] Performing Lab: [facility] [address] POC PH 7.382 7.31-7.41 POC PCO2 35.0 [...] 03:21 PM 98.3 70 155/[address] [facility] December 05, 2023 02:45 PM 84 143/[address] [facility] December 05, 2023 02:44 PM 130 170/[address] [facility] December 05, 2023 02:19 PM 102 178/[address] [facility] December 05, 2023 02:15 PM 61 149/84 [facility]
--- OUTSIDE RECORDS SUMMARY | 2023-12-21 01:05 | XMS_ITS | Encounter Summary ---
Author Name Department of Vetera ns Affairs Organization Department of Vetera ns Affairs Address [address] [place] [address] Care Team Providers Care Jewelry Bench Worker Name Role Phone EMIR GRACIA Primary Care Provider Unavailabl e Selected Encounter This section includes the information on record at [place] for the Encounter. Date/Time Encounter Type Encounter Description Reason Pro vider Source December 05, 2023 01:31 PM Outpatient Encounter EVENT (HISTORICAL) I[facility] Encounter Template Text not used by [place] Plan of Treatment: Future Appointments (+ 6 months) and Future Tests (+/- 45 days) The Plan of Treatment section includes future care activities for the patient from all [place] treatmentfacilities. This section includes future appointments and future orders which are active, pending or scheduled. Future Appointments This section includes appointments that were scheduled to occur 6 months from the date of the Encounter, up to a maximum of 20 appointments. The data comes from all [place] treatment facilities. Appointment Date/Time Appointment Type Appointme nt Facility Name December 16, 2023 02:00 PM AMBULATORY - [facility]IATRY [facility] Dec 30, 2023 01:00 PM AMBULATORY - PS[facility]CHIATRY [facility] Jan 13, 2024 02:00 PM [facility] Active, Pending, and Scheduled Orders This section includes a listing of several types of active, pending, and scheduled orders, including clinic medications orders, diagnostic test orders, procedure orders and consult orders; where the start date of the order is 45 days before the date of the Encounter or 45 days after the date of theEncounter. The data comes from all [place] treatment facilities. Test Date/Time Test Type Test Details Facility Name November 19, 2023 12:00 AM Laboratory - Chemi stry Order ELASTASE-1,PANC STL STOOL FECES SP ONCE [facility] November 19, 2023 12:00 AM Laboratory - Chemi stry Order TTG AB,IGA SERUM SP ONCE [facility] November 19, 2023 12:00 AM Laboratory - Chemi stry Order IGA PLASMA SP ONCE [facility] November 19, 2023 12:00 AM Laboratory - Chemi stry Order ENTERIC PATHOGEN PCR PANEL STOOL FECES SP ONCE [facility] November 19, 2023 12:00 AM Laboratory - Microbiology Order OVA & PARASITES FECAL FECES SP ONCE [facility] December 05, 2023 02:27 PM Laboratory - Chemi stry Order BLOOD GAS PANEL FOR ICU ARTERIAL BLOOD STAT WC [facility] December 12, 2023 03:21 PM Laboratory - Chemi stry Order CALPROTECTIN,STOOL STOOL FECES SP ONCE [facility] Lab Results: +/- 30 days of the encounter This section includes the Chemistry and Hematology Lab Results on record with [place] for the patient. Radiology Reports and Pathology Reports are provided separately, in subsequent sections. Lab Results This section contains the Chemistry/Hematology Results that were resulted 30 days before or 30 daysafter the date of the Encounter. Date/Time Source Result Type Result - Unit Interpretation Reference Range Comment December 05, 2023 02:20 PM [facility] EXTRA RED TUBE Specimen Type: SERUM No comment entered. Ordering Provider: NELSON RONQUILLO Report Released Date/Time: December 05, 2023 02:39 PM Reporting Lab: [facility] [address] Performing Lab: [facility] [address] EXTRA RED TUBE RECEIVED December 05, 2023 02:20 PM [facility] CODE BLUE(LYTE,CR,UN,GL,MG,CA,PHOS,TROP) Specimen Type: PLASMA No comment entered. Ordering Provider: NELSON RONQUILLO Report Released Date/Time: December 05, 2023 02:27 PM Reporting Lab: [facility] [address] Performing Lab: [facility] [address] CREATININE 1.1 mg/dL H 0.5-1.0 UREA NITROGEN 10 mg/dL 7-20 GLUCOSE 101 mg/dL H 70-100 SODIUM 138 mmol/L 136-145 POTASSIUM 3.8 mmol/L 3.5-5.1 CHLORIDE 107 mmol/L 98-107 CO2 22 mmol/L 22-29 CALCIUM 9.3 mg/dL 8.4-10.2 PHOSPHORUS 3.5 mg/dL 2.3-4.7 MAGNESIUM 1.9 mg/dL 1.6-2.6 ANION GAP 9 mmol/L 5-15 .CREAT EGFR(CKD-EPI) 64 >60 TROPONIN I, HS <3 <14 December 05, 2023 02:20 PM [facility] LACTIC ACID Specimen Type: PLASMA No comment entered. Ordering Provider: NELSON RONQUILLO Report Released Date/Time: December 05, 2023 02:27 PM Reporting Lab: [facility] [address] Performing Lab: [facility] [address] LACTIC ACID 1.7 mmol/L 0.5-2.2 December 05, 2023 02:20 PM [facility] CBC Specimen Type: BLOOD No comment entered. Ordering Provider: NELSON RONQUILLO Report Released Date/Time: December 05, 2023 02:27 PM Reporting Lab: [facility] [address] Performing Lab: [facility] [address] WBC 11.50 10*3/uL H 4.0-11.0 RBC 4.83 10*6/uL 4.0-5.4 HGB 13.6 g/dL 11.5-16 HCT 39.8 34.5-48 MCV 82.4 fL 80-100 MCH 28.2 pg 27-33 MCHC 34.2 g/dL 32.0-37.5 PLT 443 10*3/uL H 150-400 MPV 9.1 fL 7.4-10.4 RDW 12.5 11.5-14.5 December 05, 2023 02:20 PM [facility] PROTHROMBIN TIME/INR Specimen Type: PLASMA No comment entered. Ordering Provider: NELSON RONQUILLO Report Released Date/Time: December 05, 2023 02:27 PM Reporting Lab: [facility] [address] Performing Lab: [facility] [address] .INR 1.2 H 0.8-1.1 .PT 13.5 s H 9.4-12.5 December 05, 2023 02:20 PM [facility] EXTRA GOLD GEL TUBE Specimen Type: SERUM No comment entered. Ordering Provider: NELSON RONQUILLO Report Released Date/Time: December 05, 2023 02:39 PM Reporting Lab: [facility] [address] Performing Lab: [facility] [address] EXTRA GOLD GEL TUBE RECEIVED December 05, 2023 02:18 PM [facility] POC ABG/ELECTROLYTES Specimen Type: VENOUS BLOOD Comment: FIO2 = 40% Patient Temp: 36.6 C Sample Type = VENOUS Ordering Provider: ULYSSES ELDER Report Released Date/Time: December 06, 2023 08:24 PM Reporting Lab: [facility] [address] Performing Lab: [facility] [address] POC PH 7.382 7.31-7.41 POC PCO2 35.0 [...] 03:21 PM 98.3 70 155/86 16 0 [facility] December 05, 2023 02:45 PM 84 143/91 100 [facility] December 05, 2023 02:44 PM 130 170/100 99 [facility] December 05, 2023 02:19 PM 102 178/104 99 [facility] December 05, 2023 02:15 PM 61 149/84 [facility]
--- OUTSIDE RECORDS SUMMARY | 2023-12-21 01:05 | XMS_ITS | Encounter Summary ---
Author Name [facility] Address [address] [place] [address] Care Team Providers Care Hose Maker Name Role Phone EMIR GRACIA Primary Care Provider Unavailabl e Selected Encounter This section includes the information on record at [facility] for the Encounter. Date/Time Encounter Type Encounter Description Reason Pro vider Source December 05, 2023 01:28 PM Outpatient Encounter EVENT (HISTORICAL) I[facility] Encounter Template Text not used by [facility] Plan of Treatment: Future Appointments (+ 6 [...] 2023 02:00 PM AMBULATORY - [facility]IATRY [facility] Dec 30, 2023 01:00 PM AMBULATORY - [facility]ATRY [facility] Jan 13, 2024 02:00 PM [facility] Active, Pending, and Scheduled Orders This section includes a listing of several types of active, pending, and scheduled orders, including clinic medications orders, diagnostic test orders, procedure orders and consult orders; where the start date of the order is 45 days before the date of the Encounter or 45 days after the date of theEncounter. The data comes from all [facility] treatment facilities. Test Date/Time Test Type Test Details Facility Name November 19, 2023 12:00 AM Laboratory - Chemi stry Order TTG AB,IGA SERUM SP ONCE [facility] November 19, 2023 12:00 AM Laboratory - Chemi stry Order ELASTASE-1,PANC STL STOOL FECES SP ONCE [facility] November 19, 2023 12:00 AM Laboratory - Chemi stry Order IGA PLASMA SP ONCE [facility] November 19, 2023 12:00 AM Laboratory - Chemi stry Order ENTERIC PATHOGEN PCR PANEL STOOL FECES SP ONCE [facility] November 19, 2023 12:00 AM Laboratory - Microbiology Order OVA & PARASITES FECAL FECES SP ONCE [facility] December 05, 2023 02:27 PM Laboratory - Chemi stry Order BLOOD GAS PANEL FOR ICU ARTERIAL BLOOD STAT WC [facility] December 12, 2023 03:21 PM Laboratory - Chemi stry Order CALPROTECTIN,STOOL STOOL FECES SP ONCE [facility] Lab Results: +/- 30 days of the encounter This section includes the Chemistry and Hematology Lab Results on record with [facility] for the patient. Radiology Reports and Pathology Reports are provided separately, in subsequent sections. Lab Results This section contains the Chemistry/Hematology Results that were resulted 30 days before or 30 daysafter the date of the Encounter. Date/Time Source Result Type Result - Unit Interpretation Reference Range Comment December 05, 2023 02:20 PM [facility] EXTRA RED TUBE Specimen Type: SERUM No comment entered. Ordering Provider: NELSON RONQUILLO Report Released Date/Time: December 05, 2023 02:39 PM Reporting Lab: [facility] [id number] Performing Lab: [facility] [id number] EXTRA RED TUBE RECEIVED December 05, 2023 02:20 PM [facility] CODE BLUE(LYTE,CR,UN,GL,MG,CA,PHOS,TROP) Specimen Type: PLASMA No comment entered. Ordering Provider: NELSON RONQUILLO Report Released Date/Time: December 05, 2023 02:27 PM Reporting Lab: [facility] [id number] Performing Lab: [facility] [phone] CREATININE 1.1 mg/dL H 0.5-1.0 UREA NITROGEN 10 mg/dL 7-20 GLUCOSE 101 mg/dL H 70-100 SODIUM 138 mmol/L 136-145 POTASSIUM 3.8 mmol/L 3.5-5.1 CHLORIDE 107 mmol/L 98-107 CO2 22 mmol/L 22-29 CALCIUM 9.3 mg/dL 8.4-10.2 PHOSPHORUS 3.5 mg/dL 2.3-4.7 MAGNESIUM 1.9 mg/dL 1.6-2.6 ANION GAP 9 mmol/L 5-15 .CREAT EGFR(CKD-EPI) 64 >60 TROPONIN I, HS <3 <14 December 05, 2023 02:20 PM [facility] LACTIC ACID Specimen Type: PLASMA No comment entered. Ordering Provider: NELSON RONQUILLO Report Released Date/Time: December 05, 2023 02:27 PM Reporting Lab: [facility] [phone] Performing Lab: [facility] [phone] LACTIC ACID 1.7 mmol/L 0.5-2.2 December 05, 2023 02:20 PM [facility] CBC Specimen Type: BLOOD No comment entered. Ordering Provider: NELSON RONQUILLO Report Released Date/Time: December 05, 2023 02:27 PM Reporting Lab: [facility] [phone] Performing Lab: [facility] [phone] WBC 11.50 10*3/uL H 4.0-11.0 RBC 4.83 10*6/uL 4.0-5.4 HGB 13.6 g/dL 11.5-16 HCT 39.8 34.5-48 MCV 82.4 fL 80-100 MCH 28.2 pg 27-33 MCHC 34.2 g/dL 32.0-37.5 PLT 443 10*3/uL H 150-400 MPV 9.1 fL 7.4-10.4 RDW 12.5 11.5-14.5 December 05, 2023 02:20 PM [facility] PROTHROMBIN TIME/INR Specimen Type: PLASMA No comment entered. Ordering Provider: NELSON RONQUILLO Report Released Date/Time: December 05, 2023 02:27 PM Reporting Lab: [facility] [phone] Performing Lab: [facility] [phone] .INR 1.2 H 0.8-1.1 .PT 13.5 s H 9.4-12.5 December 05, 2023 02:20 PM [facility] EXTRA GOLD GEL TUBE Specimen Type: SERUM No comment entered. Ordering Provider: NELSON RONQUILLO Report Released Date/Time: December 05, 2023 02:39 PM Reporting Lab: [facility] [phone] Performing Lab: [facility] [phone] EXTRA GOLD GEL TUBE RECEIVED December 05, 2023 02:18 PM [facility] POC ABG/ELECTROLYTES Specimen Type: VENOUS BLOOD Comment: FIO2 = 40% Patient Temp: 36.6 C Sample Type = VENOUS Ordering Provider: ULYSSES ELDER Report Released Date/Time: December 06, 2023 08:24 PM Reporting Lab: [facility] [phone] Performing Lab: [facility] [phone] POC PH 7.382 7.31-7.41 POC PCO2 35.0 [...] 03:21 PM 98.3 70 155/86 16 0 [facility] December 05, 2023 02:45 PM 84 143/91 100 [facility] December 05, 2023 02:44 PM 130 170/100 99 [facility] December 05, 2023 02:19 PM 102 178/104 99 [facility] December 05, 2023 02:15 PM 61 149/84 [facility]
--- OUTSIDE RECORDS SUMMARY | 2023-12-21 01:05 | XMS_ITS | Encounter Summary ---
Author Name [facility] Organization [facility] Address [address] [place] [address] Care Team Providers Care Floor Coverer Name Role Phone EMIR GRACIA Primary Care Provider Unavailabl e Selected Encounter This section includes the information on record at [place] for the Encounter. Date/Time Encounter Type Encounter Description Reason Provider Source December 05, 2023 02:45 PM EMERGENCY DEPT VISIT [facility] EMERGENCY DEPT ICD-10-CM G89.4 Chronic pain syndrome ULYSSES JACKSON Lorie Encounter Template Text not used by [place] Assessments - Encounter Diagnoses This section includes the primary and secondary diagnoses documented for the Encounter. Date/Time Primary/Secondary Diagnosis Diagnosis Name Provider Source December 05, 2023 04:36 PM PRIMARY Chronic pain syndrome JERRODULYSSES [facility] Plan of Treatment: Future Appointments (+ 6 months) and Future Tests (+/- 45 days) The Plan of Treatment section includes future care activities for the patient from all [place] treatmentfacilities. This section includes future appointments and future orders which are active, pending or scheduled. Future Appointments This section includes appointments that were scheduled to occur 6 months from the date of the Encounter, up to a maximum of 20 appointments. The data comes from all [place] treatment facilities. Appointment Date/Time Appointment Type Appointme nt Facility Name December 16, 2023 02:00 PM AMBULATORY - PSYCHIATRY [facility] Dec 30, 2023 01:00 PM [facility] Jan 13, 2024 02:00 PM [facility] Active, Pending, and Scheduled Orders This section includes a listing of several types of active, pending, and scheduled orders, including clinic medications orders, diagnostic test orders, procedure orders and consult orders; where the start date of the order is 45 days before the date of the Encounter or 45 days after the date of theEncounter. The data comes from all [place] treatment facilities. Test Date/Time Test Type Test Details Facility Name November 19, 2023 12:00 AM Laboratory - Chemi stry Order ELASTASE-1,PANC STL STOOL FECES SP ONCE [facility] November 19, 2023 12:00 AM Laboratory - Chemi stry Order TTG AB,IGA SERUM SP ONCE [facility] November 19, 2023 12:00 AM Laboratory - Chemi stry Order IGA PLASMA SP ONCE [facility] November 19, 2023 12:00 AM Laboratory - Chemi stry Order ENTERIC PATHOGEN PCR PANEL STOOL FECES SP ONCE [facility] November 19, 2023 12:00 AM Laboratory - Microbiology Order OVA & PARASITES FECAL FECES SP ONCE [facility] December 05, 2023 02:27 PM Laboratory - Chemi stry Order BLOOD GAS PANEL FOR ICU ARTERIAL BLOOD STAT WC [facility] December 12, 2023 03:21 PM Laboratory - Chemi stry Order CALPROTECTIN,STOOL STOOL FECES SP ONCE [facility] Lab Results: +/- 30 days of the encounter This section includes the Chemistry and Hematology Lab Results on record with [place] for the patient. Radiology Reports and Pathology Reports are provided separately, in subsequent sections. Lab Results This section contains the Chemistry/Hematology Results that were resulted 30 days before or 30 daysafter the date of the Encounter. Date/Time Source Result Type Result - Unit Interpretation Reference Range Comment December 05, 2023 02:20 PM [facility] EXTRA RED TUBE Specimen Type: SERUM No comment entered. Ordering Provider: NELSON RONQUILLO Report Released Date/Time: December 05, 2023 02:39 PM Reporting Lab: [facility] [id number] Performing Lab: [facility] [id number] EXTRA RED TUBE RECEIVED December 05, 2023 02:20 PM [facility] CODE BLUE(LYTE,CR,UN,GL,MG,CA,PHOS,TROP) Specimen Type: PLASMA No comment entered. Ordering Provider: NELSON RONQUILLO Report Released Date/Time: December 05, 2023 02:27 PM Reporting Lab: [facility] [id number] Performing Lab: [facility] [phone] CREATININE 1.1 mg/dL H 0.5-1.0 UREA NITROGEN 10 mg/dL 7-20 GLUCOSE 101 mg/dL H 70-100 SODIUM 138 mmol/L 136-145 POTASSIUM 3.8 mmol/L 3.5-5.1 CHLORIDE 107 mmol/L 98-107 CO2 22 mmol/L 22-29 CALCIUM 9.3 mg/dL 8.4-10.2 PHOSPHORUS 3.5 mg/dL 2.3-4.7 MAGNESIUM 1.9 mg/dL 1.6-2.6 ANION GAP 9 mmol/L 5-15 .CREAT EGFR(CKD-EPI) 64 >60 TROPONIN I, HS <3 <14 December 05, 2023 02:20 PM [facility] LACTIC ACID Specimen Type: PLASMA No comment entered. Ordering Provider: NELSON RONQUILLO Report Released Date/Time: December 05, 2023 02:27 PM Reporting Lab: [facility] [id number] Performing Lab: [facility] [address] LACTIC ACID 1.7 mmol/L 0.5-2.2 December 05, 2023 02:20 PM [facility] CBC Specimen Type: BLOOD No comment entered. Ordering Provider: NELSON RONQUILLO Report Released Date/Time: December 05, 2023 02:27 PM Reporting Lab: [facility] [phone] Performing Lab: [facility] [phone] WBC 11.50 10*3/uL H 4.0-11.0 RBC 4.83 10*6/uL 4.0-5.4 HGB 13.6 g/dL 11.5-16 HCT 39.8 34.5-48 MCV 82.4 fL 80-100 MCH 28.2 pg 27-33 MCHC 34.2 g/dL 32.0-37.5 PLT 443 10*3/uL H 150-400 MPV 9.1 fL 7.4-10.4 RDW 12.5 11.5-14.5 December 05, 2023 02:20 PM [facility] PROTHROMBIN TIME/INR Specimen Type: PLASMA No comment entered. Ordering Provider: NELSON RONQUILLO Report Released Date/Time: December 05, 2023 02:27 PM Reporting Lab: [facility] [id number] Performing Lab: [facility] [address] .INR 1.2 H 0.8-1.1 .PT 13.5 s H 9.4-12.5 December 05, 2023 02:20 PM [facility] EXTRA GOLD GEL TUBE Specimen Type: SERUM No comment entered. Ordering Provider: NELSON RONQUILLO Report Released Date/Time: December 05, 2023 02:39 PM Reporting Lab: [facility] [address] Performing Lab: [facility] [address] EXTRA GOLD GEL TUBE RECEIVED December 05, 2023 02:18 PM [facility] POC ABG/ELECTROLYTES Specimen Type: VENOUS BLOOD Comment: FIO2 = 40% Patient Temp: 36.6 C Sample Type = VENOUS Ordering Provider: ULYSSES JACKSON Report Released Date/Time: December 06, 2023 08:24 PM Reporting Lab: [facility] [address] Performing Lab: [facility] [address] POC PH 7.382 7.31-7.41 POC PCO2 35.0 [...] 98.3 70 155/86 16 0 [place] [facility] December 05, 2023 02:45 PM 84 143/91 100 [place] [facility] December 05, 2023 02:44 PM 130 170/100 99 [place] [facility] December 05, 2023 02:19 PM 102 178/104 99 [facility] December 05, 2023 02:15 PM 61 149/84 [place] [facility] Encounter Notes: All associated encounter notes This section contains the clinical notes associated to the Encounter. Date/Time Encounter Note(s) Provider Source December 05, 2023 04:25 PM EMERGENCY DEPT EDU CATION NOTE: LOCAL TITLE: EMERGENCY DEPT DISCHARGE INSTRUCTIONS STANDARD TITLE: EMERGENCY DEPT EDUCATION NOTE DATE OF NOTE: DECEMBER 05, 2023@16:25:10 ENTRY DATE: DECEMBER 05, 2023@16:25:10 AUTHOR: ULYSSES JACKSON EXP COSIGNER: URGENCY: STATUS: COMPLETED DISCHARGE INSTRUCTIONS IMPORTANT: [...] instructions below. You were treated today by Ulysses Jackson, . - Special Information - - This Information Is About Your Follow Up Care - We recommend that you follow up with your Primary Care Team to have an appointment within the next 1 month. Call to arrange this appointment. If you are not feeling better and improving as discussed or if you have any questions please contact your Primary Care Provider. Future Appointments 12/16/2023 at 2:00pm [facility] 12/30/2023 at 1:00pm [facility] 01/13/2024 at 2:00pm [facility] - This Information Is About Your Illness and Diagnosis - It is not clear what caused the symptoms you experienced following the attempted nerve injection today. Your lab work-up is generally unremarkable and her vital signs have been normal since you have been monitored in the emergency department. Please follow-up with your pain providers for ongoing discussions about the risks and benefits of future injections. - IMPORTANT MEDICATION INFORMATION -Your medication list includes any medications that were recently prescribed but not filled by the Pharmacy (PENDING Medicines). -Included are any known ACTIVE Medicines. Please review this list to make sure it is accurate, if this list does not match the current medications you are taking please follow-up with your Primary Care Team to have your Medication List reviewed. Pending Medications [none] Active Medications ALBUTEROL 90MCG (CFC-F) 200D ORAL INHL INHALE 1 PUFF BY INHALATION FOUR TIMES A DAY NEEDED FOR SHORTNESS OF BREATH ATORVASTATIN CALCIUM 40MG TAB TAKE ONE TABLET BY MOUTH AT BEDTIME FOR CHOLESTEROL CETIRIZINE HCL 5MG TAB TAKE ONE TABLET BY MOUTH EVERY MORNING NEEDED FOR ALLERGIC REACTION CLONIDINE HCL 0.1MG TAB TAKE ONE TABLET BY MOUTH TWICE A DAY NEEDED FOR PAIN DICYCLOMINE HCL 10MG CAP TAKE ONE CAPSULE BY MOUTH THREE TIMES A DAY NEEDED FOR PAIN DULOXETINE HCL 60MG EC CAP TAKE ONE CAPSULE BY MOUTH EVERY DAY FOR MOOD EPINEPHRINE (EQV-EPI-PEN) 0.3MG/0.3ML INJECT 1 PEN DIRECTED NEEDED FOR ALLERGIC REACTION FEXOFENADINE HCL 180MG TAB TAKE ONE TABLET BY MOUTH TWICE A DAY FOR ALLERGIES FISH OIL 1000MG (500MG DHA/EPA) CAP TAKE ONE CAPSULE BY MOUTH EVERY MORNING FOR HIGH TRIGLYCERIDES HYDROMORPHONE TAB 4MG MOUTH EVERY 6 HOURS NEEDED (Non-VA Medication) HYOSCYAMINE TAB,SUBLINGUAL UNDER THE TONGUE (Non-VA Medication) IBUPROFEN 800MG TAB (HOLD) TAKE ONE TABLET BY MOUTH THREE TIMES A DAY NEEDED FOR PAIN LORAZEPAM TAB 0.5MG MOUTH EVERY 8 HOURS NEEDED (Non-VA Medication) ONDANSETRON HCL 4MG TAB TAKE ONE TABLET BY MOUTH EVERY 6 HOURS NEEDED FOR NAUSEA AND VOMITING PREDNISONE 50MG TAB TAKE TWO TABLETS BY MOUTH NEEDED ONCE FOR ANAPHYLAXIS- TAKE IMMEDIATELY 100MG PREDNISONE AND 2 TABS CETIRIZINE (5MG EACH) FOR SEVERE ALLERGIC REACTION TACROLIMUS 0.1% TOP OINT (HOLD) APPLY THIN LAYER TOPICALLY TWICE A DAY NEEDED FOR SEVERE ITCHING/DERMATITIS Medications Medications in the last 90 days [none] YOU ARE THE MOST IMPORTANT FACTOR IN [...] GO TO THE NEAREST EMERGENCY ROOM // ULYSSES JACKSON Fellow Physician Signed: 12/05/2023 16:25 ULYSSES JACKSON [facility] December 05, 2023 03:22 PM NURSING EMERGENCY DEPT NOTE: LOCAL TITLE: EMERGENCY DEPT NURSING NOTE STANDARD TITLE: NURSING EMERGENCY DEPT NOTE DATE OF NOTE: DECEMBER 05, 2023@15:22 ENTRY DATE: DECEMBER 05, 2023@15:22:31 AUTHOR: WASHINGTON KHOURY COSIGNER: URGENCY: STATUS: COMPLETED Nursing Focused Assessment: CHIEF COMPLAINT: adverse reaction to procedure Allergies/ADR: PFIZER COVID-19 VACCINE (EUA) (Mar 26, 2023) FENTANYL (Mar 26, 2023) INFLUENZA (Mar 26, 2023) MIRALAX (Mar 26, 2023) Additional allergies not listed: Vital Signs * Blood Pressure: 155/86 (12/05/2023 15:21) Heart Rate: 70 (12/05/2023 15:21) Respirations: 16 (12/05/2023 15:21) Temperature: 98.3 F [36.8 C] (12/05/2023 15:21) Pain: 0 (12/05/2023 15:21) Weight: 214.8 lb [97.43 kg] (07/02/2023 14:03) O2 Sats: 100% (12/05/2023 14:45) Tobacco use: No Alcohol use: No Any drugs besides what is prescribed or over the counter: No ABUSE/NEGLECT: No evidence of abuse/neglect WOMAN OF CHILDBEARING AGE (</= 52 years): Date of last menstrual period November Normal Comment: Length of period: REVIEW OF SYSTEM-FOCUSED ASSESSMENT Neurological: Alert Mentation Oriented to: Person, Place, Time, Location Additional comments/issues/interventi ons: PT undergoing Celiac Plexus Block (Celiac Plexus Nerve Block)when aftercompleting the right side and beginning the left I lost hearing in my right ear, my jaw locked up, it was hard to handle secretions. I was awake the whole time and was aware of all my symptoms INTERVENTIONS: Oriented to room and bed controls Call light within reach of patient or family/friend /es/ WASHINGTON KHOURY RN REGISTERED NURSE Signed: 12/05/2023 15:23 WASHINGTON KHOURY [facility] December 05, 2023 03:11 PM NURSING EMERGENCY DEPT TRIAGE NOTE: LOCAL TITLE: EMERGENCY DEPARTMENT NURSING TRIAGE NOTE STANDARD TITLE: NURSING EMERGENCY DEPT TRIAGE NOTE DATE OF NOTE: DECEMBER 05, 2023@15:11 ENTRY DATE: DECEMBER 05, 2023@15:11:46 AUTHOR: WASHINGTON KHOURY EXP COSIGNER: URGENCY: STATUS: COMPLETED Emergency Department/Urgent Care Center Triage Patient age:42 Sex: FEMALE On arrival patient was: AMBULATORY Patient phone number: Allergies: PFIZER COVID-19 VACCINE (EUA) (Mar 26, 2023) FENTANYL (Mar 26, 2023) INFLUENZA (Mar 26, 2023) MIRALAX (Mar 26, 2023) Subjective/Chief Complaint: complications during procedure Objective: PT undergoing Celiac Plexus Block (Celiac Plexus Nerve Block)when after completing the right side and beginning the left I lost hearing in my right ear, my jaw locked up, it was hard to handle secretions. I was awake the whole time and was aware of all my symptoms The patient is not a fall risk. Vital Signs * Temperature 98.3 F (36.8 C) Pulse 70 Respirations 16 Blood Pressure 155/86 Pain scale recorded: 0 Pulse Oximetry 98 Room Air Emergency Severity Index (ABIGAIL) level Level 4 Current Medications: Active Outpatient Medications (including Supplies): [...] Medications Current Problems: Cancer cervix screening status ([facility] 2438Chronic idiopathic urticaria ([facility] [id number]) Family social history ([facility] [id number]) Generalized anxiety disorder ([facility] [id number]) Major depressive disorder ([facility] [id number] of post-traumatic stress disorder ([facility] [id number]) Hyperlipidemia ([facility] [id number]) Dysfunction of sphincter of Oddi ([facility] [id number]) Posttraumatic stress disorder ([facility] 58672Qd significant change since previous mammogram ([facility] [id number]) Identification of Seniors at Risk (ISAR):* Defer screen age Suicide Screen: [place] Suicide Severity Rating Scale (C-SSRS) screener 1. [...] due to responses to other questions. /lilia/ WASHINGTON KHOURY RN REGISTERED NURSE Signed: 12/05/2023 15:22 WASHINGTON KHOURY [facility] December 05, 2023 02:50 PM PHYSICIAN EMERGENC Y DEPT NOTE: LOCAL TITLE: EMERGENCY DEPT NOTE STANDARD TITLE: PHYSICIAN EMERGENCY DEPT NOTE DATE OF NOTE: DECEMBER 05, 2023@14:50 ENTRY DATE: DECEMBER 05, 2023@14:50:31 AUTHOR: ULYSSES JACKSON COSIGNER: URGENCY: STATUS: COMPLETED Personal Protective Equipment (PPE): Nurse's note reviewed. Chief Complaint: The patient is a 42 y/o FEMALE complaining of: reaction TDAP/TD Immunizations No data available for: TETANUS TOXOID, ADSORBED TETANUS TOXOID, NOT ADSORBED TETANUS TOXOID, UNSPECIFIED FORMULATION TDAP Covid-19 Immunizations ADMINISTERED Immunization Series Date Facility Reaction Info COVID-19 ([facility]), MRNA, LNP-S, * [facility] VECTOR-NR, R* 2 [facility]), VECTOR-NR, R* 3 09/[facility]/2021 [facility] COVID-19 ([facility]), VECTOR-NR, R* 4 10/15/2021 [facility]* CONTRAINDICATED No data available REFUSED ======= No data available * Value is truncated; see the Detailed Immunizations Health Summary Component[DIM] for complete text History of present illness: 42-year-old woman with history of chronic pain, anxiety, PTSD, chronic idiopathic urticaria, who presented to the interventional pain clinic today for a splanchnic nerve block through a posterior approach. The proceduralist was apparently successfully able to block the right nerve of interest without much issue. Upon inserting the needle in the left paraspinal muscles in an attempt to block the left nerve, the patient experienced a flushing sensation, nausea, increasing secretions in her mouth, and locked jaw. The procedure was aborted and a CODE BLUE was called. The patient never lost consciousness nor did she lose pulses. Upon the team's arrival she was hypertensive in the 160s systolic and was tachycardic in the 120s. Basic labs were drawn. After approximately 5 to 10 minutes, the patient was able to breathe normally and open and close her mouth without difficulties. She was brought to the emergency department for further evaluation. At bedside, the patient feels like her normal self, denies any difficulties breathing, chest pain, headaches, vision changes, changes in abdominal pain. Allergies: PFIZER COVID-19 VACCINE (EUA) (Mar 26, 2023) FENTANYL (Mar 26, 2023) INFLUENZA (Mar 26, 2023) MIRALAX (Mar 26, 2023) Past Medical History: Active problems - Computerized Problem List is the source for the followin. Cancer cervix screening status - 06/12/2020 PAP NILM/HPV Neg,HR [facility]. Next due for co-test in 5 years, 05/2025. 2. Chronic idiopathic urticaria - with physical component , chronic illness- follows [facility] - dr. Patricia 3. 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 Generalized anxiety disorder 5. Major depressive disorder 6. History of post-traumatic stress disorder - team [facility] 7. Hyperlipidemia - On statin 8. Dysfunction of sphincter of Oddi (SNOMED CT [id number]) - cholecystectomy and multiple ERCPs, followed [facility] in the past, - 2015 9. Posttraumatic stress disorder 10. No significant change since previous mammogram - recent mammo on 04/01/23-ACR BI-RADS Category 1 - Negative. Medications: Active Outpatient Medications (excluding Supplies): Outpatient Medications [...] 8 HOURS ACTIVE NEEDED 16 Total Medications Physical Exam: BP: 143/91 (12/05/2023 14:45) P: 84 (12/05/2023 14:45) R: 16 (12/05/2023 12:55) T: 98.2 F [36.8 C] (12/05/2023 12:55) O2 Sats: 100% (12/05/2023 14:45) General: comfortable NAD HENT: normocephalic, atraumatic Eyes: no icterus or pallor, PEERL, EOMI, oropharynx clear and moist CV: normal rate, regular rhythm, no murmurs, normal S1S2, no JVD Resp: clear to auscultation bilaterally, no wheezing Abdomen: soft non-tender non-distended Extremities: no edema, 2+ radial pulses bilaterally Neuro: A&O x3, moving all extremities Psych: appropriate affect Labs: Today's Labs: INR 1998: 1.2 H PROTHROMBIN TIME (03/24): 13.5 H LACTIC ACID: 1.7 WBC: 11.50 H RBC: 4.83 HGB: 13.6 HCT: 39.8 MCV: 82.4 MCH: 28.2 MCHC: 34.2 RDW: 12.5 PLT: 443 H MPV: 9.1 TROPONIN, HIGH SENSITIVITY: <3 GLUCOSE: 101 H UREA NITROGEN: 10 CREATININE: 1.1 H SODIUM: 138 POTASSIUM: 3.8 CHLORIDE: 107 CO2: 22 CALCIUM: 9.3 PO4: 3.5 MAGNESIUM: 1.9 ANION GAP: 9 CREATININE EGFR (CKD-EPI): 64 ED Course/Medical Decision Making/Assessment: CPRS Notes/Labs Reviewed for Patient Encounter: Emergency department triage, emergency department nursing note, Diagnosis and Plan: 42-year-old woman who was in the interventional pain clinic receiving a splanchnic nerve block for presumably chronic abdominal pain (details are unclear from chart review), and experienced an unusual reaction to a needle insertion in her left paraspinal muscles, including lockjaw sensation hypertension and tachycardia. She never lost pulses nor did she lose consciousness. Labs were drawn by the code response team and she was sent to the emergency department for evaluation. Upon arrival here she is hemodynamically stable with a blood pressure 143/91, heart rate 84, afebrile, satting 100% on room air with no respiratory distress or no wheezing. Labs that were drawn during the code are shown above and are generally unremarkable. She was monitored for in the emergency department with no significant changes. The symptoms that she experienced during her procedure today are unclear, perhaps related to sympathetic activation that spontaneously resolved quickly. She will follow-up with her pain providers for ongoing discussions about risks and benefits of future injections. Disposition: home // ULYSSES JACKSON Fellow Physician Signed: 12/05/2023 16:26 ULYSSES JACKSON [facility]
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
--- OUTSIDE RECORDS SUMMARY | 2023-12-21 01:06 | XMS_ITS | Clinical Summary ---
Author Organization [facility] Address [place], [place] [address] Care Team Providers Care Farm Appraiser Name Role Phone Omar Vogt MD Unavailable [phone] Facundo Bell RN Unavailable Annika Huff NP Unavailable [phone] Pcp, No Primary Care Provider Unavailabl e [...] Active methylPREDNISolone (Medrol, Michael,) 4 mg tabletIndications:Ac iqugmiut right-sided low back pain without sciatica Take by mouth as instructed per packaging. 21 Tablet 02/12/2023 Active cyclobenzaprine (FLEXERIL) 5 mg tabletIndications:Ac iqugmiut right-sided low back pain without sciatica Take 1-2 Tablets (5-10 mg) by mouth 3 times daily if needed for Muscle Spasm. 21 Tablet 02/12/2023 Active ibuprofen (ADVIL; MOTRIN) 800 mg tabletIndications:Ac iqugmiut right-sided low back pain without sciatica Take 1 Tablet (800 mg) by mouth three times daily with meals. 90 Tablet 02/12/2023 Active HYDROmorphone (Dilaudid) 4 mg tabletIndications:Ac iqugmiut right-sided low back pain without sciatica Take 1 Tablet (4 mg) by mouth every 6 hours if needed for Pain. 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 Stress fracture of tibia 08/16/2022 Overview: [...] Name Administration Dates Next Due COVID-19 vaccine ([employer]J&J) PF, MDSoledad 2,09/01/2021 COVID-19 vaccine ([employer] 30mcg/0.3mL) P FDARYA 07/12/2020 Td, Preservative Free [...] this topic Medical Devices Implanted Type Area Crm Developer Device Identifier Shelf Expiration Date Model / Serial / Lot Stent Pancreatic 5fr 3cm Gpso Lory - [id number] Implanted:Qty: 1 on 03/29/2014 at [facility] 07/21/2016 GPSO- 5-3# / / [id number] Stent Pancreatic [id number] Lory Sof-Flex - [id number] Implanted:Qty: 1 on 04/28/2023 by Meagan Fraga MD at [facility] N/A: Pancreas [facility] GPSO-SF-5 -5 / / [id number] Procedures Procedure Name Priority Date/Time Associated Diagnosis Comments LC HCV ANTIBODY RFX TO QUANT PCR Routine 08/16/2022 1:31 PM TRANSFER TABLE OPERATOR HELPER Need for hepatitis C screening test SPRAY CEMENTER THIN PREP PAP SCREEN IMAGED Routine 06/12/2020 1:55 PM TRANSFER TABLE OPERATOR HELPER Screening for cervical cancer ANTI HIV 1/2 Routine 05/22/2007 10:08 AM CDT Supervision Of Other Normal from Last 3 Months or Most Recently Relevant to Health Maintenance Results * LC HCV ANTIBODY RFX TO QUANT PCR (08/16/2022 1:31 PM TRANSFER TABLE OPERATOR HELPER) [facility] HCV Ab <0.1 0.0 - 0.9 s/co ratio 08/20/2022 10:06 PM TRANSFER TABLE OPERATOR HELPER [facility] ([facility]) Blood BLOOD SPECIMEN / Unknown Venipuncture / Unknown 08/16/2022 1:31 PM TRANSFER TABLE OPERATOR HELPER 08/16/2022 1:31 PM TRANSFER TABLE OPERATOR HELPER Narrative [facility] ([facility]) - 08/20/2022 10:06 PM TRANSFER TABLE OPERATOR HELPER Performed at: ??[address] [place], [place] ??[id number] Ceramic Chemist: Sha Mireles MD, Phone: ??[phone] Donell Aguirre DO LABORATORY [facility] ([facility]) [address] [place] [address] * SPRAY CEMENTER THIN PREP PAP SCREEN IMAGED [[id number]] (06/12/2020 1:55 PM TRANSFER TABLE OPERATOR HELPER) [facility] Case Report Gynecologic Cytology Report ? Case: [id number] ? Authorizing Provider: ??Jacinta Mendes MD ? Collected: ? 06/12/2020 1355 ? Ordering Location: ? [facility] ?? Received: ?06/12/2020 1438 ? Clinic ? First Screen: ?Baccam, Minie ? Specimen: ?SPRAY CEMENTER ThinPrep Vial Screening, Cervical ? 06/22/2020 10:19 AM [facility] EN[facility]AL [facility] INTERPRETATION/ RESULT NEGATIVE FOR INTRAEPITHELIAL LESION OR MALIGNANCY (NIL) (none) 06/22/2020 10:19 AM [facility] IMEN ADEQUACY Satisfactory for evaluation Endocervical component present 06/22/2020 10:19 AM [facility] HPV REQUEST HPV and PAP 06/22/2020 10:19 AM TRANSFER TABLE OPERATOR HELPER [facility] Date of LMP 06/05/20 06/22/2020 10:19 AM [facility] Last Pap Date 03/06/17 06/22/2020 10:19 AM TRANSFER TABLE OPERATOR HELPER [facility] Last Pap Result NIL 0 10:19 AM TRANSFER TABLE OPERATOR HELPER [facility] Abnormal Pap or Bristow Bx in last 5 years No 06/22/2020 10:19 AM TRANSFER TABLE OPERATOR HELPER [facility] Menstrual Status Regular Periods 06/22/2020 10:19 AM [facility] EN[facility] Bristow Bx Done Today No 06/22/2020 10:19 AM [facility] EN[facility] Additional Information None given 06/22/2020 10:19 AM [facility] Comment: Cytology is screened at [facility] - [address], [place] [address] and [facility] - [address] [place] [address], [place] [address] and [facility] - [address] [place] [address] Interpreted at [facility] - [address], [place] [address] Automated Review Successful 06/22/2020 10:19 AM [facility] Comment:Specimen processed s uccessfully by automated cap lining machine operator device, ThinPrep Imaging System, [employer] ANCILLARY TESTING SPRAY CEMENTER HPV Ordered, Please see separate report 06/22/2020 10:19 AM [facility] Note The pap test is a screening technique, not a diagnostic procedure. It is used primarily to screen for squamous cancers and precursor lesions. Published studies have shown that it is subject to both false negative and false positive results. The pap test should not be used as the sole means to diagnose or exclude pre-malignant and malignant lesions. 06/22/2020 10:19 AM [facility] Other (Cervical) Non-Blood / Unknown 06/12/2020 1:55 PM TRANSFER TABLE OPERATOR HELPER 06/12/2020 2:38 PM TRANSFER TABLE OPERATOR HELPER Jacinta Mendes MD PATHOLOGY/CYTOLOGY [facility] [address] [place] [address], [place] * ANTI HIV 1/2 (05/22/2007 10:08 AM CDT) ANTI HIV 1/2 Non-reacti ve [facility] Blood specimen (specimen) BLOOD SPECIMEN / Unknown 05/22/2007 10:08 AM CDT 05/22/2007 10:02 AM CDT Jacinta Mendes MD SEND OUTS [facility] [place]NAL ZIP [address] [place] [address] from Last 3 Months or Most Recently [...] 9:18 AM 12/27/2011 2:17 AM Care Teams Farm Appraiser Relationship Specialty Start Date End Date Pcp, No . PCP - General 01/31/23 Omar Vogt MD Allergy and Immunology 12/04/11 Facundo Bell, RN [address] [place] [address] Registered Nurse 11/05/22 Annika Huff NP [address] [place] [address] Nurse Practitioner - Family 11/05/22
--- OUTSIDE RECORDS SUMMARY | 2023-12-21 01:06 | XMS_ITS | Clinical Summary ---
Author Organization [facility] Address [address] [place] [address]. [place] [address] Care Team Providers Care Clearance Cutter Name Role Phone Jacinta Mendes MD Primary Care Provider Unavailab Jacinta Ortiz MD Unavailable Unavailable Toño Patricia MD Unavailable [phone] Allergies Active Allergy Reactions Criticality Noted Date [...] age to complete this topic Care Teams Clearance Cutter Relationship Specialty Start Date End Date Jacinta Mendes MD PCP - General Family Practice 03/07/14 Jacinta Mendes MD Referring Physician Family Medicine 06/19/21 Toño Patricia MD [address] [place] [address] Allergy & Immunology 06/19/21
--- OUTSIDE RECORDS SUMMARY | 2023-12-21 01:06 | XMS_ITS | Encounter Summary ---
Author Organization [facility] Address [address] [place] [address] Care Team Providers Care Music Pastor Name Role Phone Jacinta Mendes MD Primary Care Provider Unavailab Jcainta Ortiz MD Unavailable Unavailable Toño Patricia MD Unavailable [phone] Toño Patricia MD Unavailable [phone] Encounter Details Date Type Department Care Team (Late st Contact Info) Description 01/16/2022 [facility] [address] [address] Toño Patricia MD [address] [place] [address] Social History Tobacco Use Types Packs/Day [...] on filedocumented in this encounter Care Teams Music Pastor Relationship Specialty Start Date End Date Jacinta Mendes MD PCP - General Family Practice 03/07/14 Jacinta Mendes MD Referring Physician Family Medicine 06/19/21 Toño Patricia MD [address] [place] [address] Allergy & Immunology 06/19/21 Toño Patricia MD [address] [place], [place] [address] Assigned Surgical Provider 09/16/21 07/18/23 documented as of this encounter
--- OUTSIDE RECORDS SUMMARY | 2023-12-21 01:06 | XMS_ITS | Referral Summary ---
Author Organization [facility] Address [address] [place] [address]. [place] [address] Care Team Providers Care Ecological Technical Officer Name Role Phone Jacinta Mendes MD Primary Care Provider Unavailab Jacinta Ortiz MD Unavailable Unavailable Toño Patricia MD Unavailable [phone] Allergies Active Allergy Reactions Criticality Noted Date [...] of Treatment Not on file Care Teams Ecological Technical Officer Relationship Specialty Start Date End Date Jacinta Mendes MD PCP - General Family Practice 03/07/14 Jacinta Mendes MD Referring Physician Family Medicine 06/19/21 Toño Patricia MD [address] [place] [address] Allergy & Immunology 06/19/21
== END 2023-12-21 02:44 | disposition home or self-care (01) ==
PROVIDERS: Emergency Provider Internal Medicine; PCP Nurse Practitioner Gerontology
DX: M54.9 Dorsalgia, unspecified (principal)
CPT/HCPCS: 72100; 96372; 99283; 99284; J1885

== ENCOUNTER 2024-05-04 07:46 | Outpatient (CLI) | payer OTHER, SELFPAY ==
--- OUTSIDE RECORDS SUMMARY | 2024-05-04 07:49 | XMS_ITS | Continuity of Care Document ---
Author Name [facility] Organization [facility] Care Team Providers Care Allocations Clerk Name Role Phone [facility] Unavailable Unavailable Problems Combined list of problems from 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 It does not include entries that were removed or entered in error. Problem Status Onset Date Problem Type Date of Resolution Comments Source closed stress fracture of tibia Active Condition Stretches order ed and demonstrated. DoD ankle joint pain Inactive Condition Pow er Steps issued. DoD visit for: issue repeat prescription Inactive Condition DoD routine examination Inactive Condition DoD headache syndromes Active Condition DoD head injury Active Condition DoD ankle sprain Inactive Condition DoD refractive error - myopia Active Condition time recorder wear DoD visit for: daycare exam Inactive Condition DoD Patient Education - Injury Prevention Inactive Condition [facility] assess patient condition work-related occupational disease Inactive Condition DoD visit for: ears / hearing exam Active Condition [facility] Cancer cervix screening status Active Condition Mar 13 Entered By: EMIR GRACIA Comment: 06/12/2020 PAP NILM/HPV Neg,HR [facility]. Next due for co-test in 5 years, 05/2025. [facility] Chronic idiopathic urticaria Active Condition Mar 27, 2023 Entered By: EMIR GRACIA Comment: with physical component , chronic illness- [facility] - [facility]. 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) Active Condition Mar 27, 2023 Entered By: EMIR GRACIA Comment: cholecystectomy and multiple ERCPs, followed [facility] in the past, - 2015 [facility] Family social history Active Condition Mar [...] father- CAD, DM2 , siblings- strong autoimmune [facility] Generalized anxiety disorder Active Condition [facility] History of post-traumatic stress disorder Active Condition Mar 27, 2023 Entered By: EMIR GRACIA Comment: team at [place] [facility] Hyperlipidemia Active Condition Sep 0 2022 Entered By: EMIR GRACIA Comment: On statin [facility] Major depressive disorder Active Condition [facility] No significant change since previous mammogram Active Condition Apr 02, 2023 Entered By: EMIR GRACIA Comment: recent mammo on 04/01/23-ACR BI-RADS Category 1 - Negative. 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 Diagnosis [facility] Diagnosis: ICD-10-CM R06.00 Dyspnea, unspecified Active Diagnosis [facility] Diagnosis: ICD-10-CM Z13.83 Encounter for screening for respiratory disorder NEC Active Diagnosis [facility] Diagnosis: ICD-10-CM F43.12 Post-traumatic stress disorder, chronic Active Diagnosis [facility] Diagnosis: ICD-10-CM F43.10 Post-traumatic stress disorder, unspecified Active Diagnosis [facility] Diagnosis: ICD-10-CM F33.2 Major depressv disorder, 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 psych features Active Diagnosis [facility] Diagnosis: ICD-10-CM Z51.89 Encounter for other specified aftercare Active Diagnosis [facility] Diagnosis: ICD-10-CM H90.3 Sensorineural hearing loss, bilateral Active Diagnosis [facility] Diagnosis: ICD-10-CM F33.9 Major depressive disorder, recurrent, unspecified Active Diagnosis [facility] Diagnosis: ICD-10-CM Z86.59 Personal history of other mental and behavioral disorders Active Diagnosis [facility] Diagnosis: ICD-10-CM F33.0 Major depressive disorder, recurrent, mild Active Diagnosis [facility] Diagnosis: ICD-10-CM F33.1 Major depressive disorder, recurrent, moderate Active Diagnosis [facility] Diagnosis: ICD-10-CM G47.9 Sleep disorder, unspecified Active Diagnosis [facility] Diagnosis: ICD-10-CM R45.851 Suicidal ideations Active Diagnosis [facility] Diagnosis: ICD-10-CM Z71.81 Spiritual or gnosticism counseling Active Diagnosis [facility] Diagnosis: ICD-10-CM F41.1 Generalized anxiety disorder [facility] Diagnosis: ICD-10-CM Z91.51 Personal history of suicidal behavior Active Diagnosis [facility] Admit Reason: DEPRESSION SI Active Diagnosis [facility] Diagnosis: ICD-10-CM G89.4 Chronic pain syndrome Active Diagnosis [facility] Diagnosis: ICD-10-CM R10.9 Unspecified abdominal pain Active Diagnosis [facility] Diagnosis: ICD-10-CM K86.1 Other chronic pancreatitis Active Diagnosis [facility] Diagnosis: ICD-10-CM R19.7 Diarrhea, unspecified Active Diagnosis [facility] Diagnosis: ICD-10-CM R10.10 Upper abdominal pain, unspecified Active Diagnosis [facility] Diagnosis: ICD-10-CM G89.29 Other chronic pain Active Diagnosis [facility] Diagnosis: ICD-10-CM Z46.1 Encounter for fitting and adjustment of hearing aid Active Diagnosis [facility] Diagnosis: ICD-10-CM Z01.118 Encntr for exam of ears and hearing w oth abnormal findings Active Diagnosis [facility] Diagnosis: ICD-10-CM Z00.00 Encntr for general adult medical exam w/o abnormal findings Active Diagnosis [facility] Diagnosis: ICD-10-CM Z71.89 Other specified counseling Active Diagnosis [facility] Medications Combined list of outpatient medications from [...] OF BREATH RESPIR ATORY (INHAL ATION) ACTIVE 04/20/2025 [id number] PRESTON GRACIA 2023 2 [facility] ALBUTEROL 90MCG/ACTUA T (CFC-F) INHL,ORAL,8 .5GM DOSE COUNTER INHALE 1 PUFF BY INHALATI ON FOUR TIMES A DAY NEEDED FOR SHORTNES S OF BREATH RESPIR ATORY (INHAL ATION) DISCONT INUED 04/02/2024 [id number] 3 PRESTON GRACIA 2022 2 [facility] ATORVASTATI N CA 20MG TAB TAKE ONE TABLET BY MOUTH AT BEDTIME FOR CHOLESTE ROL ORAL DISCONT INUED (EDIT) 03/27/2024 [id number] 3 PRESTON GRACIA 2022 90 [facility] ATORVASTATI N CA 40MG TAB TAKE ONE TABLET BY MOUTH AT BEDTIME FOR CHOLESTE ROL ORAL SUSPEND ED 04/20/2025 [id number] 4 PRESTON GRACIA 2023 90 [facility] ATORVASTATI N CA 40MG TAB TAKE ONE TABLET BY MOUTH AT BEDTIME FOR CHOLESTE ROL ORAL DISCONT INUED 06/05/2024 [id number] 4 PRESTON GRACIA 2022 90 [facility] CETIRIZINE HCL 5MG TAB TAKE ONE TABLET BY MOUTH EVERY MORNING NEEDED FOR ALLERGIC REACTION ORAL 04/02/2024 [id number] 3 PRESTON GRACIA 2022 90 [facility] Cetirizine Hydrochlori de (Zyrtec Eq.) Tablet 5 mg Oral TAKE ONE TABLET BY MOUTH EVERY MORNING NEEDED FOR ALLERGIC REACTION 04/02/2024 [id number] 3 EMIR GRACIA 2022 90 [place] [facility] CLONIDINE HCL 0.1MG TAB TAKE ONE TABLET BY MOUTH TWICE A DAY NEEDED FOR PAIN ORAL ACTIVE 05/09/2024 [id number] 3 BETZY BOUDREAUX 2022 60 [place] [facility] CYCLOBENZAP RINE HCL 5MG TAB TAKE 1-2 TABLETS BY MOUTH THREE TIMES A DAY NEEDED FOR MUSCLE SPASMS ORAL DISCONT INUED 03/27/2024 [id number] 3 PRESTON GRACIA 2022 180 [facility] DICYCLOMINE HCL 10MG CAP TAKE ONE CAPSULE BY MOUTH THREE TIMES A DAY NEEDED FOR PAIN ORAL ACTIVE 05/09/2024 [id number] 3 BETZY BOUDREAUX 2022 90 [place] [facility] DULOXETINE HCL 60MG CAP,EC TAKE TWO CAPSULES BY MOUTH EVERY DAY FOR DEPRESSI ON ORAL ACTIVE 04/29/2025 [id number] CHRIS BEE IN L 2023 180 [facility] DULOXETINE HCL 60MG CAP,EC TAKE ONE CAPSULE BY MOUTH EVERY DAY FOR MOOD ORAL 03/27/2024 [id number] 4 PRESTON GRACIA 2022 90 [facility] EPINEPHRINE (EQV-EPI-PE N) 0.3MG/0.3ML INJECTOR INJECT 1 PEN DIRECTED NEEDED FOR ALLERGIC REACTION ACTIVE 04/20/2025 [id number] 4 PRESTON GRACIA 2023 2 [facility] EPINEPHRINE (EQV-EPI-PE N) 0.3MG/0.3ML INJECTOR INJECT 1 PEN DIRECTED NEEDED FOR ALLERGIC REACTION DISCONT INUED 03/27/2024 [id number] 3 PRESTON GRACIA 2022 2 [facility] FEXOFENADIN E HCL 180MG TAB TAKE ONE TABLET BY MOUTH EVERY MORNING FOR ALLERGIE S ORAL ACTIVE 04/21/2025 [id number] 4 PRESTON GRACIA 2023 90 [facility] FEXOFENADIN E HCL 180MG TAB TAKE ONE TABLET BY MOUTH TWICE A DAY FOR ALLERGIE S ORAL DISCONT INUED BY PROVIDE R 05/07/2024 [id number] 4 PRESTON GRACIA 2022 180 [facility] FEXOFENADIN E HCL 60MG TAB TAKE ONE TABLET BY MOUTH TWICE A DAY FOR ALLERGIE S ORAL DISCONT INUED (EDIT) 04/02/2024 [id number] 3 PRESTON GRACIA 2022 180 [facility] Fexofenadin e Hydrochlori de (Lyssa) Tablet 60 mg Oral TAKE ONE TABLET BY MOUTH TWICE A DAY FOR ALLERGIE S 04/02/2024 [id number] 3 EMIR GRACIA 2022 180 [place] [facility] FISH OIL 1000MG (500MG DHA/EPA) CAP,ORAL TAKE ONE CAPSULE BY MOUTH EVERY MORNING FOR HIGH TRIGLYCE RIDES ORAL DISCONT INUED 06/05/2024 [id number] 3 PRESTON GRACIA 2022 100 [facility] FLUTICASONE 250MCG/SALM ETEROL 50MCG INHL,ORAL,D ISKUS,60 INHALE 1 PUFF BY INHALATI ON TWICE A DAY FOR ASTHMA - RINSE MOUTH AFTER USE RESPIR ATORY (INHAL ATION) 05/26/2023 [id number] 3 PRESTON GRACIA 2022 2 [facility] [...] FOR 2 DAYS ORAL DISCONT INUED 06/14/2023 [id number] 3 BETZY BOUDREAUX 2022 42 [place] [facility] [facility] HYDROMORPHO NE HCL 2MG TAB TAKE THREE TABLETS BY MOUTH THREE TIMES A DAY NEEDED FOR PAIN FOLLOW TAPER REGIMEN PROVIDED IN CLINIC ORAL DISCONT INUED 06/08/2023 [id number] 3 BETZY BOUDREAUX 2022 36 [place] [...] OTHER CONSERVA TIVE MEASURES . ORAL 07/11/2023 [id number] 3 BETZY BOUDREAUX 2022 30 [place] [facility] HYDROMORPHO NE HCL 2MG TAB TAKE TWO TABLETS BY MOUTH EVERY 6 HOURS NEEDED ORAL ACTIVE PRESTON GRACIA 2022 [facility] HYDROXYZINE HCL 25MG TAB TAKE ONE TABLET BY MOUTH AT BEDTIME NEEDED FOR ANXIETY ORAL 04/26/2023 [id number] PRESTON GRACIA 2022 20 [facility] IBUPROFEN 800MG TAB TAKE ONE TABLET BY MOUTH THREE TIMES A DAY NEEDED FOR PAIN ORAL 03/27/2024 [id number] 3 PRESTON GRACIA 2022 180 [facility] LORAZEPAM 0.5MG TAB TAKE ONE TABLET BY MOUTH EVERY 8 HOURS NEEDED ORAL ACTIVE PRESTON GRACIA 2022 [facility] METHYLPREDN ISOLONE 4MG TAB DOSEPAK,21 TAKE ACCORDIN G TO DIRECTIO NS IN PACKAGE BY MOUTH DIRECTED FOR ASTHMA/S EVERE ALLERGY FLARE ORAL DISCONT INUED 03/27/2024 [id number] 3 PRESTON GRACIA 2022 1 [facility] MOXIFLOXACI N (moxifloxac in HCl), 0.5 %, DROPS, OPHTHALMIC, LUPIN PHARMACEU, 3 ml DROP BTL Active [id number] 2023 3 Pharmac y Data Transac tion Service Facilit y NALOXONE HCL 4MG/SPRAY SOLN,SPRAY, NASAL SPRAY 1 DOSE IN ONE NOSTRIL DIRECTED FOR UNRESPON SIVENESS THEN CALL 911 - IF NO CHANGE IN 2-3 MINUTES, GIVE SECOND DOSE IN OPPOSITE NOSTRIL NASAL ACTIVE 01/14/2025 [id number] 4 Inder DRISCOLL 2023 2 [place] [facility] NICOTINE POLACRILEX 2MG TAB,CHEWG GUM CHEW 1 PIECE IN MOUTH EVERY HOUR NEEDED TO QUIT TOBACCO ORAL ACTIVE 12/29/2024 [id number] 4 BRADLEYMARCIE Carlos 2023 110 [place] [facility] ONDANSET[facility] 4MG TAB TAKE ONE TABLET BY MOUTH EVERY 6 HOURS NEEDED FOR NAUSEA AND VOMITING ORAL DISCONT INUED 11/19/2024 [id number] 4 ALEAH VIOLETTA,NICHA 2023 20 [place] [facility] O[facility] 4MG TAB TAKE ONE TABLET BY MOUTH EVERY 6 HOURS NEEDED FOR NAUSEA AND VOMITING ORAL DISCONT INUED 03/27/2024 [id number] PRESTON GRACIA 2022 30 [facility] ONDANSETRON HCL 4MG TAB,ORALLY DISINTEGRAT ING DISSOLVE ONE TABLET BY UNDER THE TONGUE EVERY 6 HOURS NEEDED FOR NAUSEA AND VOMITING SUBLIN GUAL ACTIVE 04/20/2025 [id number] 4 PRESTON GRACIA 2023 30 [facility] PRAZOSIN HCL 2MG CAP TAKE TWO CAPSULES BY MOUTH AT BEDTIME FOR NIGHTMAR ES ORAL ACTIVE 04/29/2025 [id number] 4 ROHIT,ER IN L 2023 60 [facility] PRAZOSIN HCL 2MG CAP TAKE TWO CAPSULES BY MOUTH AT BEDTIME FOR NIGHTMAR ES ORAL DISCONT INUED 03/04/2025 [id number] 4 ROHIT,ER IN L 2023 60 [facility] PRAZOSIN HCL 2MG CAP TAKE ONE CAPSULE BY MOUTH AT BEDTIME FOR 3 DAYS, THEN TAKE TWO CAPSULES AT BEDTIME FOR NIGHTMAR ES ORAL DISCONT INUED 03/04/2025 [id number] 4 ROHIT,ER IN L 2023 57 [facility] PREDNISONE 50MG TAB TAKE TWO TABLETS BY MOUTH NEEDED ONCE FOR ANAPHYLA XIS- TAKE IMMEDIAT NISA 100MG PREDNISO NE AND 2 TABS CETIRIZI NE (5MG EACH) FOR SEVERE ALLERGIC REACTION ORAL 03/27/2024 [id number] 3 PRESTON GRACIA 2022 30 [facility] QUETIAPINE FUMARATE 100MG TAB TAKE ONE TABLET BY MOUTH EVERY MORNING FOR DEPRESSI ON ORAL DISCONT INUED (EDIT) 01/29/2025 [id number] 4 AYALA DE LA CRUZ TORACHELTTE D 2023 30 [facility] QUETI[facility] FUMARATE 200MG TAB TAKE ONE TABLET BY MOUTH EVERY MORNING FOR DEPRESSI ON ORAL ACTIVE 04/29/2025 [id number] 4 ROHIT,ER IN L 2023 30 [facility] QUETIAPINE FUMARATE 200MG TAB TAKE ONE TABLET BY MOUTH EVERY MORNING FOR DEPRESSI ON ORAL DISCONT INUED 02/11/2025 [id number] 4 AYALA DE LA CRUZ TOINETTE D 2023 30 [facility] QUETIAPINE FUMARATE 200MG TAB TAKE ONE TABLET BY MOUTH EVERY MORNING FOR DEPRESSI ON ORAL DISCONT INUED (EDIT) 02/18/2024 [id number] 4 Inder DRISCOLL 2023 30 [facility] QUETIAPINE FUMARATE 200MG TAB TAKE ONE TABLET BY MOUTH EVERY MORNING FOR DEPRESSI ON ORAL DISCONT INUED 01/28/2024 [id number] 4 VARICAT,F RANCISCO P 2023 30 [facility] QUETIAPINE FUMARATE 25MG TAB TAKE ONE TABLET BY MOUTH THREE TIMES A DAY NEEDED FOR ANXIETY ORAL 01/24/2024 [id number] 4 VARICAT,F RANCISCO P 2023 30 [facility] QUETIAPINE FUMARATE 300MG TAB TAKE ONE TABLET BY MOUTH AT BEDTIME FOR DEPRESSI ON ORAL ACTIVE 04/29/2025 [id number] 4 ROHIT,ER IN L 2023 30 [facility] QUETIAPINE FUMARATE 300MG TAB TAKE ONE TABLET BY MOUTH AT BEDTIME FOR DEPRESSI ON ORAL DISCONT INUED 01/29/2025 [id number] 4 AYALA DE LA CRUZ TOINETTE D 2023 30 [facility] QUETIAPINE FUMARATE 300MG TAB TAKE ONE TABLET BY MOUTH AT BEDTIME FOR DEPRESSI ON ORAL DISCONT INUED 02/18/2024 [id number] 4 Inder DRISCOLL J 2023 30 [facility] QUETIAPINE FUMARATE 300MG TAB TAKE ONE TABLET BY MOUTH AT BEDTIME FOR DEPRESSI ON ORAL DISCONT INUED 01/24/2024 [id number] VARICAT,F RANCISCO P 2023 30 [facility] TACROLIMUS 0.1% OINT,TOP APPLY THIN LAYER TOPICALL Y TWICE A DAY NEEDED FOR SEVERE ITCHING/ DERMATIT IS TOPICA L 03/27/2024 [id number] PRESTON GRACIA D 2022 30 [facility] TOBRAMYCIN- DEXAMETHASO NE (TOBRAMYCIN /DEXAMETHAS ONE), 0.3 %-0.1%, DROPS SUSP, OPHTHALMIC, VORA PHARMACE, 2.5 ml DROP BTL Cancele d [id number] : 2023 0 Pharmac y Data [facility] Service [facility] y TRAZODONE HCL 50MG TAB TAKE ONE TABLET BY MOUTH AT BEDTIME NEEDED FOR SLEEP ORAL ACTIVE 04/29/2025 [id number] CHRIS BEE IN L 2023 30 [facility] TRAZODONE HCL 50MG TAB TAKE ONE TABLET BY MOUTH AT BEDTIME NEEDED FOR SLEEP ORAL 01/28/2024 [id number] VARICAT,F RANCISCO P 2023 30 [facility] Allergies, Adverse Reactions, Alerts Combined list of allergies from 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 It does not include entries that were removed or entered in error. Substance Category Reaction Severity Reaction type Status Date Reported Comments Source FENTANYL Propensity to adverse reactions to drug (finding) Abdominal pain SEVERE active 3 [facility] FLUARIX (INFLUENZA TVS 12-25 VACCINE/PF ) Drug allergy (disorder) Unknown active 7 [facility] [place], [place] INFLUENZA Propensity to adverse reactions to drug (finding) Anaphylaxis SEVERE active 3 [facility] MIRALAX Propensity to adverse reactions to drug (finding) Anaphylaxis SEVERE active 3 [facility] PFIZER COVID-19 VACCINE (EUA) Propensity to adverse reactions to drug (finding) Anaphylaxis, Urticaria, Itching, Dyspnea SEVERE active 3 [facility] Immunizations Combined list of available immunizations from the 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 Status Comments Source COVID-19 (Buxfer), VECTOR-NR, RS-AD26, PF, 0.5 ML 4 2021 212 complet [facility] COVID-19 vaccine, vector-nr, rS-Ad26, PF, 0.5 mL 2021 ATTARIAN, () Not Given COVID-19 vaccine, vector-nr , rS-Ad26, PF, 0.5 mL [facility] COVID-19 (Buxfer), VECTOR-NR, RS-AD26, PF, 0.5 ML 3 2021 212 complet [facility] COVID-19 vaccine, vector-nr, rS-Ad26, PF, 0.5 mL 2021 ATTARIAN, [employer] (JSN) Not Given COVID-19 vaccine, vector-nr , rS-Ad26, PF, 0.5 mL [facility] COVID-19 (Buxfer), VECTOR-NR, RS-AD26, PF, 0.5 ML 2 2020 212 complet [facility] COVID-19 (License Acquisitions), MRNA, LNP-S, PF, 30 MCG/0.3 ML DOSE 1 2019 208 complet [facility] TD (ADULT) 2016 138 complet [facility] TD (ADULT), 5 LF TETANUS TOXOID, PRESERVATIVE FREE, ADSORBED 2016 113 complet [facility] TDAP 2006 115 complet [facility] Results Combined list of recent chemistry, hematology and other laboratory results from Department of Defense and Veterans Affairs, ranging from 15 months to all on record, depending upon the facility. Order Name Results Value Reference Range Date Interpretation Specimen Comments Source ANTI-HEP C(EIA) HEPATITIS C VIRUS AB [PRESENCE] IN SERUM NEGATIVE 04/19 Specimen Type: SERUM No comment entered. Ordering Provider: CLIFF GRACIA Report Released Date/Time: Apr 19, 2024 10:00 AM Reporting Lab: [facility] [phone] Performing Lab: [facility] [phone] [facility] CBC LEUKOCYTES [#/VOLUME] IN BLOOD BY AUTOMATED COUNT 5.5 4.0 - 11.0 04/19 Specimen Type: BLOOD No comment entered. Ordering Provider: CLIFF GRACIA Report Released Date/Time: Apr 19, 2024 09:46 AM Reporting Lab: [facility] [phone] Performing Lab: [facility] [phone] [facility] CBC ERYTHROCYT ES [#/VOLUME] IN BLOOD BY AUTOMATED COUNT 4.74 4.00 - 5.40 04/19 Specimen Type: BLOOD No comment entered. Ordering Provider: CLIFF GRACIA Report Released Date/Time: Apr 19, 2024 09:46 AM Reporting Lab: [facility] [phone] Performing Lab: [facility] [phone] [facility] CBC HEMOGLOBIN [MASS/VOLU ME] IN BLOOD 13.4 g/dL 11.5 - 16 04/19 Specimen Type: BLOOD No comment entered. Ordering Provider: CLIFF GRACIA Report Released Date/Time: Apr 19, 2024 09:46 AM Reporting Lab: [facility] [phone] Performing Lab: [facility] [phone] [facility] CBC HEMATOCRIT [VOLUME FRACTION] OF BLOOD BY AUTOMATED COUNT 39.7 34.5 - 48 04/19 Specimen Type: BLOOD No comment entered. Ordering Provider: CLIFF GRACIA Report Released Date/Time: Apr 19, 2024 09:46 AM Reporting Lab: [facility] [phone] Performing Lab: [facility] [phone] [facility] CBC MCV [ENTITIC VOLUME] BY AUTOMATED COUNT 83.8 fL 80 - 100 04/19 Specimen Type: BLOOD No comment entered. Ordering Provider: CLIFF GRACIA Report Released Date/Time: Apr 19, 2024 09:46 AM Reporting Lab: [facility] [phone] Performing Lab: [facility] [phone] [facility] CBC MCH [ENTITIC MASS] BY AUTOMATED COUNT 28.3 pg 27 - 33 04/19 Specimen Type: BLOOD No comment entered. Ordering Provider: CLIFF GRACIA Report Released Date/Time: Apr 19, 2024 09:46 AM Reporting Lab: [facility] [address] Performing Lab: [facility] [phone] [facility] CBC MCHC [MASS/VOLU ME] BY AUTOMATED COUNT 33.8 g/dL 32.0 - 37.5 04/19 Specimen Type: BLOOD No comment entered. Ordering Provider: CLIFF GRACIA Report Released Date/Time: Apr 19, 2024 09:46 AM Reporting Lab: [facility] [phone] Performing Lab: [facility] [phone] [facility] CBC PLATELETS [#/VOLUME] IN BLOOD BY AUTOMATED COUNT 370 150 - 400 04/19 Specimen Type: BLOOD No comment entered. Ordering Provider: CLIFF RGACIA Report Released Date/Time: Apr 19, 2024 09:46 AM Reporting Lab: [facility] [phone] Performing Lab: [facility] [phone] [facility] CBC PLATELET MEAN VOLUME [ENTITIC VOLUME] IN BLOOD BY AUTOMATED COUNT 9.8 fL 9.1 - 13.0 04/19 Specimen Type: BLOOD No comment entered. Ordering Provider: CLIFF GRACIA Report Released Date/Time: Apr 19, 2024 09:46 AM Reporting Lab: [facility] [address] Performing Lab: [facility] [phone] [facility] CBC ERYTHROCYT E DISTRIBUTI ON WIDTH [RATIO] BY AUTOMATED COUNT 12.0 11.5 - 14.5 04/19 Specimen Type: BLOOD No comment entered. Ordering Provider: CLIFF GRACIA Report Released Date/Time: Apr 19, 2024 09:46 AM Reporting Lab: [facility] [address] Performing Lab: [facility] [phone] [facility] COMPREHE NSIVE METABOLI C PANEL+MG CREATININE [MASS/VOLU ME] IN SERUM OR PLASMA 1.0 mg/dL 0.5 - 1.0 04/19 Specimen Type: PLASMA Comment: Elevated triglycerid e result from a non-fasting specimen should be interpreted with caution. A fasting panel is recommended for accurate triglycerid es when trigs are >200 from a non-fasting specimen. Ordering Provider: CLIFF GRACIA Report Released Date/Time: Apr 19, 2024 09:46 AM Reporting Lab: [facility] [phone] Performing Lab: [facility] [address] [facility] COMPREHE NSIVE METABOLI C PANEL+MG UREA NITROGEN [MASS/VOLU ME] IN SERUM OR PLASMA 10 mg/dL 7 - 20 04/19 Specimen Type: PLASMA Comment: Elevated triglycerid e result from a non-fasting specimen should be interpreted with caution. A fasting panel is recommended for accurate triglycerid es when trigs are >200 from a non-fasting specimen. Ordering Provider: CLIFF GRACIA Report Released Date/Time: Apr 19, 2024 09:46 AM Reporting Lab: [facility] [phone] Performing Lab: [facility] [phone] [facility] COMPREHE NSIVE METABOLI C PANEL+MG GLUCOSE [MASS/VOLU ME] IN SERUM OR PLASMA 98 mg/dL 70 - 100 04/19 Specimen Type: PLASMA Comment: Elevated triglycerid e result from a non-fasting specimen should be interpreted with caution. A fasting panel is recommended for accurate triglycerid es when trigs are >200 from a non-fasting specimen. Ordering Provider: CLIFF GRACIA Report Released Date/Time: Apr 19, 2024 09:46 AM Reporting Lab: [place] [address] Performing Lab: [facility] [address] [facility] COMPREHE NSIVE METABOLI C PANEL+MG SODIUM [MOLES/VOL UME] IN SERUM OR PLASMA 136 mmol/L 136 - 145 04/19 Specimen Type: PLASMA Comment: Elevated triglycerid e result from a non-fasting specimen should be interpreted with caution. A fasting panel is recommended for accurate triglycerid es when trigs are >200 from a non-fasting specimen. Ordering Provider: CLIFF GRACIA Report Released Date/Time: Apr 19, 2024 09:46 AM Reporting Lab: [facility] [address] Performing Lab: [facility] [phone] [facility] COMPREHE NSIVE METABOLI C PANEL+MG POTASSIUM [MOLES/VOL UME] IN SERUM OR PLASMA 3.9 mmol/L 3.5 - 5.1 04/19 Specimen Type: PLASMA Comment: Elevated triglycerid e result from a non-fasting specimen should be interpreted with caution. A fasting panel is recommended for accurate triglycerid es when trigs are >200 from a non-fasting specimen. Ordering Provider: CLIFF GRACIA Report Released Date/Time: Apr 19, 2024 09:46 AM Reporting Lab: [facility] [phone] Performing Lab: [facility] [address] [facility] COMPREHE NSIVE METABOLI C PANEL+MG CHLORIDE [MOLES/VOL UME] IN SERUM OR PLASMA 108 mmol/L 98 - 107 04/19 H Specimen Type: PLASMA Comment: Elevated triglycerid e result from a non-fasting specimen should be interpreted with caution. A fasting panel is recommended for accurate triglycerid es when trigs are >200 from a non-fasting specimen. Ordering Provider: CLIFF GRACIA Report Released Date/Time: Apr 19, 2024 09:46 AM Reporting Lab: [facility] [phone] Performing Lab: [facility] [phone] [facility] COMPREHE NSIVE METABOLI C PANEL+MG CARBON DIOXIDE, TOTAL [MOLES/VOL UME] IN SERUM OR PLASMA 20 mmol/L 22 - 29 04/19 L Specimen Type: PLASMA Comment: Elevated triglycerid e result from a non-fasting specimen should be interpreted with caution. A fasting panel is recommended for accurate triglycerid es when trigs are >200 from a non-fasting specimen. Ordering Provider: CLIFF GRACIA Report Released Date/Time: Apr 19, 2024 09:46 AM Reporting Lab: [facility] [address] Performing Lab: [facility] [address] [facility] COMPREHE NSIVE METABOLI C PANEL+MG CALCIUM [MASS/VOLU ME] IN SERUM OR PLASMA 9.3 mg/dL 8.4 - 10.2 04/19 Specimen Type: PLASMA Comment: Elevated triglycerid e result from a non-fasting specimen should be interpreted with caution. A fasting panel is recommended for accurate triglycerid es when trigs are >200 from a non-fasting specimen. Ordering Provider: CLIFF GRACIA Report Released Date/Time: Apr 19, 2024 09:46 AM Reporting Lab: [facility] [address] Performing Lab: [facility] [address] [facility] COMPREHE NSIVE METABOLI C PANEL+MG PROTEIN [MASS/VOLU ME] IN SERUM OR PLASMA 7.2 g/dL 6.4 - 8.3 04/19 Specimen Type: PLASMA Comment: Elevated triglycerid e result from a non-fasting specimen should be interpreted with caution. A fasting panel is recommended for accurate triglycerid es when trigs are >200 from a non-fasting specimen. Ordering Provider: CLIFF GRACIA Report Released Date/Time: Apr 19, 2024 09:46 AM Reporting Lab: [facility] [address] Performing Lab: [facility] [address] [facility] COMPREHE NSIVE METABOLI C PANEL+MG ALBUMIN [MASS/VOLU ME] IN SERUM OR PLASMA 4.4 g/dL 3.5 - 5.2 04/19 Specimen Type: PLASMA Comment: Elevated triglycerid e result from a non-fasting specimen should be interpreted with caution. A fasting panel is recommended for accurate triglycerid es when trigs are >200 from a non-fasting specimen. Ordering Provider: CLIFF GRACIA Report Released Date/Time: Apr 19, 2024 09:46 AM Reporting Lab: [facility] [address] Performing Lab: [facility] [address] [facility] COMPREHE NSIVE METABOLI C PANEL+MG BILIRUBIN. TOTAL [MASS/VOLU ME] IN SERUM OR PLASMA 0.7 mg/dL 0.2 - 1.2 04/19 Specimen Type: PLASMA Comment: Elevated triglycerid e result from a non-fasting specimen should be interpreted with caution. A fasting panel is recommended for accurate triglycerid es when trigs are >200 from a non-fasting specimen. Ordering Provider: CLIFF GRACIA Report Released Date/Time: Apr 19, 2024 09:46 AM Reporting Lab: [facility] [address] Performing Lab: [facility] [address] [facility] COMPREHE NSIVE METABOLI C PANEL+MG MAGNESIUM [MASS/VOLU ME] IN SERUM OR PLASMA 1.9 mg/dL 1.6 - 2.6 04/19 Specimen Type: PLASMA Comment: Elevated triglycerid e result from a non-fasting specimen should be interpreted with caution. A fasting panel is recommended for accurate triglycerid es when trigs are >200 from a non-fasting specimen. Ordering Provider: CLIFF GRACIA Report Released Date/Time: Apr 19, 2024 09:46 AM Reporting Lab: [facility] [address] Performing Lab: [facility] [address] [facility] COMPREHE NSIVE METABOLI C PANEL+MG ANION GAP IN SERUM OR PLASMA 8 mmol/L 5 - 15 04/19 Specimen Type: PLASMA Comment: Elevated triglycerid e result from a non-fasting specimen should be interpreted with caution. A fasting panel is recommended for accurate triglycerid es when trigs are >200 from a non-fasting specimen. Ordering Provider: CLIFF GRACIA Report Released Date/Time: Apr 19, 2024 09:46 AM Reporting Lab: [facility] [address] Performing Lab: [facility] [address] [facility] COMPREHE NSIVE METABOLI C PANEL+MG ALKALINE PHOSPHATAS E [ENZYMATIC ACTIVITY/V OLUME] IN SERUM OR PLASMA 55 U/L 40 - 150 04/19 Specimen Type: PLASMA Comment: Elevated triglycerid e result from a non-fasting specimen should be interpreted with caution. A fasting panel is recommended for accurate triglycerid es when trigs are >200 from a non-fasting specimen. Ordering Provider: CLIFF GRACIA Report Released Date/Time: Apr 19, 2024 09:46 AM Reporting Lab: [facility] [address] Performing Lab: [facility] [address] [facility] COMPREHE NSIVE METABOLI C PANEL+MG ALANINE AMINOTRANS FERASE [ENZYMATIC ACTIVITY/V OLUME] IN SERUM OR PLASMA 22 U/L <33 - 33 04/19 Specimen Type: PLASMA Comment: Elevated triglycerid e result from a non-fasting specimen should be interpreted with caution. A fasting panel is recommended for accurate triglycerid es when trigs are >200 from a non-fasting specimen. Ordering Provider: CLIFF GRACIA Report Released Date/Time: Apr 19, 2024 09:46 AM Reporting Lab: [facility] [address] Performing Lab: [facility] [address] [facility] COMPREHE NSIVE METABOLI C PANEL+MG ASPARTATE AMINOTRANS FERASE [ENZYMATIC ACTIVITY/V OLUME] IN SERUM OR PLASMA 22 U/L 11 - 34 04/19 Specimen Type: PLASMA Comment: Elevated triglycerid e result from a non-fasting specimen should be interpreted with caution. A fasting panel is recommended for accurate triglycerid es when trigs are >200 from a non-fasting specimen. Ordering Provider: CLIFF GRACIA Report Released Date/Time: Apr 19, 2024 09:46 AM Reporting Lab: [facility] [address] Performing Lab: [facility] [address] [facility] COMPREHE NSIVE METABOLI C PANEL+MG GLOMERULAR FILTRATION RATE/1.73 SQ M.PREDICTE D [VOLUME RATE/AREA] IN SERUM, PLASMA OR BLOOD BY CREATININE -BASED FORMULA (CKD-EPI 2020) 71 60 04/19 Specimen Type: PLASMA Comment: Elevated triglycerid e result from a non-fasting specimen should be interpreted with caution. A fasting panel is recommended for accurate triglycerid es when trigs are >200 from a non-fasting specimen. Ordering Provider: CLIFF GRACIA Report Released Date/Time: Apr 19, 2024 09:46 AM Reporting Lab: [facility] [address] Performing Lab: [facility] [address] [facility] HEMOGLOB IN A1C HEMOGLOBIN A1C/HEMOGL OBIN.TOTAL IN BLOOD 4.9 4.0 - 6.0 04/19 Specimen Type: BLOOD Comment: Values obtained from A1C measurement s can vary. For typical A1C assays, a reported value of 7.0 could actually be between 6.7 and 7.3 if measured by a reference method. A reported value of 9.0 could actually be between 8.7 and 9.3. Ref: http://www. ngsp.org/[place] Pdata.asp Ordering Provider: CLIFF GRACIA Report Released Date/Time: Apr 19, 2024 09:46 AM Reporting Lab: [facility] [address] Performing Lab: [facility] [address] [facility] LIPID PANEL,NO N-FASTIN G CHOLESTERO L [MASS/VOLU ME] IN SERUM OR PLASMA 263 mg/dL <199 - 199 04/19 H Specimen Type: PLASMA Comment: Elevated triglycerid e result from a non-fasting specimen should be interpreted with caution. A fasting panel is recommended for accurate triglycerid es when trigs are >200 from a non-fasting specimen. Ordering Provider: CLIFF GRACIA Report Released Date/Time: Apr 19, 2024 09:46 AM Reporting Lab: [facility] [address] Performing Lab: [facility] [address] [facility] LIPID PANEL,NO N-FASTIN G CHOLESTERO L IN HDL [MASS/VOLU ME] IN SERUM OR PLASMA 38 mg/dL 50 04/19 L Specimen Type: PLASMA Comment: Elevated triglycerid e result from a non-fasting specimen should be interpreted with caution. A fasting panel is recommended for accurate triglycerid es when trigs are >200 from a non-fasting specimen. Ordering Provider: CLIFF GRACIA Report Released Date/Time: Apr 19, 2024 09:46 AM Reporting Lab: [facility] [address] Performing Lab: [facility] [address] [facility] LIPID PANEL,NO N-FASTIN G CHOLESTERO L IN LDL [MASS/VOLU ME] IN SERUM OR PLASMA BY CALCULATIO N 151 mg/dL <99 - 99 04/19 H Specimen Type: PLASMA Comment: Elevated triglycerid e result from a non-fasting specimen should be interpreted with caution. A fasting panel is recommended for accurate triglycerid es when trigs are >200 from a non-fasting specimen. Ordering Provider: CLIFF GRACIA Report Released Date/Time: Apr 19, 2024 09:46 AM Reporting Lab: [facility] [address] Performing Lab: [facility] [address] [facility] LIPID PANEL,NO N-FASTIN G CHOLESTERO L IN VLDL [MASS/VOLU ME] IN SERUM OR PLASMA BY CALCULATIO N 74 mg/dL <29 - 29 04/19 H Specimen Type: PLASMA Comment: Elevated triglycerid e result from a non-fasting specimen should be interpreted with caution. A fasting panel is recommended for accurate triglycerid es when trigs are >200 from a non-fasting specimen. Ordering Provider: CLIFF GRACIA Report Released Date/Time: Apr 19, 2024 09:46 AM Reporting Lab: [facility] [address] Performing Lab: [facility] [address] [facility] LIPID PANEL,NO N-FASTIN G CHOLESTERO L NON HDL [MASS/VOLU ME] IN SERUM OR PLASMA 225 mg/dL <129 - 129 04/19 H Specimen Type: PLASMA Comment: Elevated triglycerid e result from a non-fasting specimen should be interpreted with caution. A fasting panel is recommended for accurate triglycerid es when trigs are >200 from a non-fasting specimen. Ordering Provider: CLIFF RGACIA Report Released Date/Time: Apr 19, 2024 09:46 AM Reporting Lab: [facility] [address] Performing Lab: [facility] [address] [facility] LIPID PANEL,NO N-FASTIN G TRIGLYCERI DE [MASS/VOLU ME] IN SERUM OR PLASMA 368 mg/dL <149 - 149 04/19 H Specimen Type: PLASMA Comment: Elevated triglycerid e result from a non-fasting specimen should be interpreted with caution. A fasting panel is recommended for accurate triglycerid es when trigs are >200 from a non-fasting specimen. Ordering Provider: CLIFF GRACIA Report Released Date/Time: Apr 19, 2024 09:46 AM Reporting Lab: [facility] [address] Performing Lab: [facility] [address] [facility] TSH W/REFLEX TO FREE T4 THYROTROPI N [UNITS/VOL UME] IN SERUM OR PLASMA 0.69 u[IU]/mL 0.35 - 4.94 04/19 Specimen Type: PLASMA Comment: Elevated triglycerid e result from a non-fasting specimen should be interpreted with caution. A fasting panel is recommended for accurate triglycerid es when trigs are >200 from a non-fasting specimen. Ordering Provider: CLIFF GRACIA Report Released Date/Time: Apr 19, 2024 09:46 AM Reporting Lab: [facility] [address] Performing Lab: [facility] [address] [facility] HEMOGLOB IN A1C HEMOGLOBIN A1C/HEMOGL OBIN.TOTAL IN BLOOD 4.9 4.0 - 6.0 12/21 Specimen Type: BLOOD Comment: Values obtained from A1C measurement s can vary. For typical A1C assays, a reported value of 7.0 could actually be between 6.7 and 7.3 if measured by a reference method. A reported value of 9.0 could actually be between 8.7 and 9.3. Ref: http://www. ngsp.org/[place] Pdata.asp Ordering Provider: ÁNGELA DUKES Report Released Date/Time: Dec 21, 2023 08:58 PM Reporting Lab: [facility] [address] Performing Lab: [facility] [address] [place] [facility] B 12 COBALAMIN (VITAMIN B12) [MASS/VOLU ME] IN SERUM OR PLASMA 381 pg/mL 213 - 816 12/21 Specimen Type: SERUM No comment entered. Ordering Provider: ÁNGELA DUKES Report Released Date/Time: Dec 21, 2023 08:58 PM Reporting Lab: [facility] [address] Performing Lab: [facility] [address] [facility] VIT D 25-OH,TO VANDANA 25-HYDROXY VITAMIN D3 [MASS/VOLU ME] IN SERUM OR PLASMA 29 ng/mL 12 - 50 12/21 Specimen Type: SERUM No comment entered. Ordering Provider: ÁNGELA DUKES Report Released Date/Time: Dec 21, 2023 08:58 PM Reporting Lab: [facility] [address] Performing Lab: [facility] [address] [facility] TSH W/REFLEX TO FREE T4 THYROTROPI N [UNITS/VOL UME] IN SERUM OR PLASMA 0.36 u[IU]/mL 0.35 - 4.94 12/21 Specimen Type: PLASMA No comment entered. Ordering Provider: ÁNGELA DUKES Report Released Date/Time: Dec 21, 2023 08:58 PM Reporting Lab: [facility] [address] Performing Lab: [facility] [address] [place] [facility] Vital Signs Combined list of inpatient and outpatient Vital Signs from Department of Defense and Veterans Affairs, ranging from 12 months to all on record, depending upon the facility. Vital Sign Value Date Comments Source SYSTOLIC BLOOD PRESSURE 130 04/19/2024 09:19:57 DEEPIKA MONREAL DIASTOLIC BLOOD PRESSURE 84 04/19/2024 09:19:57 DEE[facility] MONREAL PULSE OXIMETRY 97 04/19/2024 09:19:57 Carlos NOEL WEIGHT 224.8 04/19/2024 09:19:57 [facility] BMI 36kg/m2 04/19/2024 09:19:57 [facility] PAIN 2 04/19/2024 09:19:57 [facility] HEIGHT 66 04/19/2024 09:19:57 [facility] TEMPERATURE 97.8 04/19/2024 09:19:57 [facility] PULSE 95 04/19/2024 09:19:57 [facility] RESPIRATION 16 04/19/2024 09:19:57 [facility] SYSTOLIC BLOOD PRESSURE 125 01/05/2024 12:11:52 [facility] DIASTOLIC BLOOD PRESSURE 80 01/05/2024 12:11:52 [facility] PULSE OXIMETRY 98 01/05/2024 12:11:52 [facility] TEMPERATURE 98.6 01/05/2024 12:11:52 [facility] PULSE 77 01/05/2024 12:11:52 [facility] RESPIRATION 16 01/05/2024 12:11:52 [facility] SYSTOLIC BLOOD PRESSURE 123 12/29/2023 06:18:00 [facility] DIASTOLIC BLOOD PRESSURE 80 12/29/2023 06:18:00 [facility] PULSE OXIMETRY 98 12/29/2023 06:18:00 [facility] PAIN 3 12/29/2023 06:18:00 [facility] TEMPERATURE 98.0 12/29/2023 06:18:00 [facility] PULSE 87 12/29/2023 06:18:00 [facility] RESPIRATION 18 12/29/2023 06:18:00 [facility] SYSTOLIC BLOOD PRESSURE 119 12/28/2023 06:30:00 [facility] DIASTOLIC BLOOD PRESSURE 73 12/28/2023 06:30:00 [facility] PULSE OXIMETRY 97 12/28/2023 06:30:00 [facility] PAIN 0 12/28/2023 06:30:00 [facility] TEMPERATURE 98.0 12/28/2023 06:30:00 [facility] PULSE 76 12/28/2023 06:30:00 [facility] RESPIRATION 18 12/28/2023 06:30:00 [facility] SYSTOLIC BLOOD PRESSURE 114 12/27/2023 06:16:00 [facility] DIASTOLIC BLOOD PRESSURE 77 12/27/2023 06:16:00 [facility] PAIN 1 12/27/2023 06:16:00 [facility] TEMPERATURE 98.1 12/27/2023 [facility]16[facility] 12/27/2023 06:16:00 [facility] Encounters Combined list of: 1) Encounters from Department of Veterans Affairs facilities going back up to thelast 18 months. 2) Encounters from the Department of Defense facilities going back up to 280 months. Location Location Details Encounter Type Encounter Number Reason For Visit Attending Provider ADM Date DC Date Status Disposition Source [facility] RADHA Baeza(IEP Hearing Conservat ion Exam) OUTPATIENT [id number] BRANDEN CAREY 09/29 Released w/o Limitations [facility] RADHA Baeza(IEP Hearing Conserv ation Exam) [facility] RADHA Baeza(IEP Optometry ) OUTPATIENT [id number] VIKTORIYA GUERRA 09/30 Released w/o Limitations [facility] RADHA Baeza(IEP Optomet ry) [facility] RADHA Baeza(C-TMC Er Module) OUTPATIENT [id number] ankle pain ESTER CHEUNG 10/06 Released with Work/Duty Limitations [facility] RADHA Baeza(C-TM C Er Module) [facility] RADHA Baeza(C-TMC Er Module) OUTPATIENT [id number] HEAD INJURY. MARCIE DANG 10/21 Sick at Home/Quarter s RADHA Hogan(C-TM C Er Module) [facility] RADHA Baeza(C-TMC Er Module) OUTPATIENT [id number] uri MARCIE DANG 10/23 Released with Work/Duty Limitations [facility] RADHA Baeza(C-TM C Er Module) [facility] [place](C-[facility]MC Er Module) OUTPATIENT [id number] F/U HEAD INJURY. KRISHORTIZ Taylor 10/25 Released w/o Limitations [facility] [place]C-TM C Er Module[facility] [place] [place] [id number] REORDER BRENDA DODD 12/08 Released w/o Limitations [facility] [place] [facility] [place] OUTPATIENT [id number] ankle and leg pain SARA DIEHL 12/18 Released with Work/Duty Limitations [facility] [place](C-TM C Er Module) [facility] Outpatient Encounter [id number] 02/10 [facility] [place] PRO PHONE CALL 5-10 MIN [id number] Diagnos is: ICD-10- CM Z71.89 Other specifi ed debt and budget counselor ing<br/ > AYALA OWENS 02/[address] [facility] Outpatient Encounter [id number] [facility] Outpatient Encounter [id number] [facility]04 [facility] HE[facility] ASSESS BY NON-MD [id number] Diagnos is: ICD-10- CM Z71.89 Other specifi ed debt and budget counselor ing<br/ > ANN JEFFERS 03/05 [facility] Outpatient Encounter [id number] DAVID QUEEN 03/13 [facility] Outpatient Encounter [id number] SEBASTIAN ALONSO 03/26 [place] [facility] [place] [facility] Outpatient Encounter [id number] SEBASTIAN ALONSO 03/26 [place] [facility] [place] [facility] Outpatient Encounter [id number] SEBASTIAN ALONSO 03/26 [place] [facility] [place] [facility] Outpatient Encounter [id number] 03/26 [place] [facility] [place] [facility] TDAP VACCINE 7 YRS/> [place] [id number] 03/26 [place] [facility] OFFICE O/P NEW HI 60-74 MIN [id number] Diagnos is: ICD-10- CM Z00.00 Encntr for general adult medical exam w/o abnorma l finding s
YOHANA GRACIA 03/27 [facility] PSYCH DIAGNOSTIC EVALUATION [id number] Diagnos is: ICD-10- CM F43.12 Post-tr aumatic stress disorde r, chronic
Inna LOPEZ 04/02 [facility] [place] [facility] Outpatient Encounter [id number] ETHAN TRUONG 04/04 [place] [facility] [place] [facility] Outpatient Encounter [id number] 04/11 [place] [facility] [place] [facility] Outpatient Encounter [id number] 04/21 [place] [facility] PSYTX W PT 45 MINUTES [id number] Diagnos is: ICD-10- CM F43.12 Post-tr aumatic stress disorde r, chronic
Inna LOPEZ 04/22 [facility] PSYTX W PT 45 MINUTES [id number] Diagnos is: ICD-10- CM F43.12 Post-tr aumatic stress disorde r, chronic
Inna LOPEZ 05/01 [facility] PRO PHONE CALL 11-20 MIN [id number] Diagnos is: ICD-10- CM K86.1 Other chronic pancrea titis<b r/> FELIX BARTLETT 05/02 [facility] [place] [facility] Outpatient Encounter [id number] 05/02 [place] [facility] [facility] OFFICE O/P EST LOW 20-29 MIN [id number] Diagnos is: ICD-10- CM K86.1 Other chronic pancrea titis<b r/> YOHANA GRACIA 05/07 [facility] [place] [facility] OFFICE O/P NEW MOD 45-59 MIN [id number] Diagnos is: ICD-10- CM K86.1 Other chronic pancrea titis<b r/> Inna BOUDREAUX 05/09 [place] [facility] [place] [facility] HC PRO PHONE CALL 5-10 MIN [id number] Diagnos is: ICD-10- CM K86.1 Other chronic pancrea titis<b r/> AJIT BRADFORD 05/09 [place] [facility] PSYTX W PT 45 MINUTES [id number] [id number] Diagnos is: ICD-10- CM F43.12 Post-tr aumatic stress disorde r, chronic
Inna LOPEZ 05/09 [facility] PSYTX W PT 45 MINUTES [id number] Diagnos is: ICD-10- CM F43.12 Post-tr aumatic stress disorde r, chronic
Inna LOPEZ 05/14 [facility] [place] [facility] Outpatient Encounter [id number] 05/14 [place] [facility] PSYTX W PT 45 MINUTES [id number] Diagnos is: ICD-10- CM F43.12 Post-tr aumatic stress disorde r, chronic
Inna LOPEZ 05/22 [facility] [place] [facility] Outpatient Encounter [id number] 05/27 [place] [facility] [place] [facility] FLUOROGUID E FOR SPINE INJECT [id number] Diagnos is: ICD-10- CM G89.29 Other chronic pain
Inna BOUDREAUX 05/27 [place] [facility] PSYTX W PT 45 MINUTES [id number] Diagnos is: ICD-10- CM F43.12 Post-tr aumatic stress disorde r, chronic
Inna LOPEZ 05/29 [facility] [place] [facility] OFFICE O/P EST HI 40-54 MIN [id number] Diagnos is: ICD-10- CM R10.9 Unspeci fied abdomin al pain
AYALA CHARLES 06/04 [facility] PSYTX W PT 45 MINUTES [id number] Diagnos is: ICD-10- CM F43.12 Post-tr aumatic stress disorde r, chronic
Inna LOPEZ 06/05 [facility] PSYTX W PT 45 MINUTES [id number] Diagnos is: ICD-10- CM F43.12 Post-tr aumatic stress disorde r, chronic
Inna LOPEZ 06/09 [facility] [place] [facility] Outpatient Encounter [id number] FELIX BARTLETT 06/10 [place] [facility] [place] [facility] Outpatient Encounter [id number] FELIX BARTLETT 06/10 [place] [facility] [place] [facility] EVOKED AUDITORY TST COMPLETE [id number] Diagnos is: ICD-10- CM Z01.118 Encntr for exam of ears and hearing w oth abnorma l finding s
Carlos CASTELLANOS A [facility] PS[facility] W PT 45 MINUTES [id number] Diagnos is: ICD-10- CM F43.12 Post-tr aumatic stress disorde r, chronic
Inna LOPEZ 07/01 [facility] [place] [facility] OFF/OP CNSLTJ NEW/EST LOW 30 [id number] Diagnos is: ICD-10- CM G89.29 Other chronic pain
MARLO ESCAMILLA 07/02 [place] [facility] [place] [facility] Outpatient Encounter [id number] 07/02 [place] [facility] [place] [facility] Outpatient Encounter [id number] 07/03 [place] [facility] [place] [facility] Outpatient [facility]counter [id number] Carlos ARREAGA 07/03 [place] [facility] [place] [facility] Outpatient Encounter [id number] SYEDA HALL 07/04 [place] [facility] [place] [facility] Outpatient Encounter [id number] SYEDA HALL 07/04 [place] [facility] PSYTX W PT 45 MINUTES [id number] Diagnos is: ICD-10- CM F43.12 Post-tr aumatic stress disorde r, chronic
Inna LOPEZ 07/08 [facility] [place] [facility] Outpatient Encounter [id number] SYEDA HALL 07/08 [place] [facility] [place] [facility] Outpatient [facility]counter [id number] RAFA HALLE Lorie Keith 07/08 [place] [facility] [place] IS [facility] Outpatient Encounter [id number] 07/11 [place] [facility] ACUPUNCT W/O STIMUL 15 MIN 50508-8.61 [id number] Diagnos is: ICD-10- CM G89.29 Other chronic pain
MARLO ESCAMILLA A 07/16 [facility] PSYTX W PT 45 MINUTES 85168-2.61 [id number] Diagnos is: ICD-10- CM F43.12 Post-tr aumatic stress disorde r, chronic
Inna LOPEZ 07/22 [facility] CONFORMITY EVALUATION [id number] [id number] Diagnos is: ICD-10- CM Z46.1 Encount er for fitting and adjustm ent of hearing aid<br/ > CUCA WALTON 07/24 [facility] [place] [facility] GROUP PSYCHOTHER APY 86111-5.61 [id number] Diagnos is: ICD-10- CM F43.12 Post-tr aumatic stress disorde r, chronic
Carlos ARREAGA 07/24 [facility] PSYTX W PT 45 MINUTES 80779-5.61 [id number] Diagnos is: ICD-10- CM F43.12 Post-tr aumatic stress disorde r, chronic
Inna LOPEZ 07/29 [facility] [place] [facility] Outpatient Encounter [id number] [id number] 07/31 [place] [facility] [place] [facility] ACUPUNCT W/O STIMUL 15 MIN 62866-4.61 [id number] Diagnos is: ICD-10- CM G89.29 Other chronic pain
MARLO ESCAMILLA A 08/01 [place] [facility] PSYTX W PT 45 MINUTES 06466-9.61 [id number] 61 Diagnos is: ICD-10- CM F43.12 Post-tr aumatic stress disorde r, chronic
Inna LOPEZ 08/06 [facility] [place] [facility] Outpatient Encounter [id number] [id number] 08/07 [place] [facility] [place] [facility] Outpatient Encounter [id number] [id number] 08/08 [place] [facility] [place] [facility] Outpatient Encounter [id number] [id number] 08/12 [place] [facility] [place] [facility] Outpatient Encounter [id number] [id number] 08/14 [place] [facility] PSYTX W PT 45 MINUTES 49286-8.61 [id number] Diagnos is: ICD-10- CM F43.12 Post-tr aumatic stress disorde r, chronic
Inna LOPEZ 08/20 [facility] [place] [facility] Outpatient Encounter [id number] [id number] 08/20 [place] [facility] [place] [facility] ACUPUNCT W/O STIMUL 15 MIN [id number] [id number] Diagnos is: ICD-10- CM G89.29 Other chronic pain
MARLO ESCAMILLA CHARD A 08/27 [place] [facility] PRO PHONE CALL 5-10 MIN 44899-2.61 [id number] Diagnos is: ICD-10- CM G89.29 Other chronic pain
CHARLENE POLO E 08/29 [facility] PSY[facility] W PT 45 MINUTES 77977-2.61 [id number] Diagnos is: ICD-10- CM F43.12 Post-tr aumatic stress disorde r, chronic
Inna LOPEZ M 09/03 [facility] IS [facility] EMERGENCY DEPT VISIT LOW MDM 51401-3.61 [id number] Diagnos is: ICD-10- CM R10.10 Upper abdomin al pain, unspeci fied
ANDREMADI Singer 09/10 [facility] Outpatient Encounter [id number] [id number] GERALD MARCUM 09/11 [facility] Outpatient Encounter [id number] [id number] GERALD MARCUM 09/11 [facility] PSYTX W PT 45 MINUTES 45932-0.61 [id number] 96 Diagnos is: ICD-10- CM F43.12 Post-tr aumatic stress disorde r, chronic
JESSICAInna GHASSANSTERLING Singer 09/30 [facility] PSYTX W PT 45 MINUTES 91245-3.61 [id number] 73 Diagnos is: ICD-10- CM F43.12 Post-tr aumatic stress disorde r, chronic
Inna LOPEZ 10/07 [facility] PSYTX W PT 45 MINUTES 00381-0.61 [id number] 16 Diagnos is: ICD-10- CM F43.12 Post-tr aumatic stress disorde r, chronic
JESSICAInna 10/21 [facility] [place] [facility] Outpatient Encounter [id number] [id number] GRETCHEN TALAVERA 11/02 [place] [facility] PSYTX W PT 45 MINUTES 64418-1.61 [id number] Diagnos is: ICD-10- CM F43.12 Post-tr aumatic stress disorde r, chronic
Inna LOPEZ 11/04 [facility] [place] [facility] OFFICE O/P EST MOD 30 MIN 43394-7.61 [id number] Diagnos is: ICD-10- CM R19.7 Diarrhe a, unspeci fied
ANA LUISA ESPINOSA 11/18 [place] [facility] [place] [facility] Outpatient Encounter [id number] [id number] 11/18 [place] [facility] PRO PHONE CALL 5-10 MIN 97395-6.61 [id number] Diagnos is: ICD-10- CM K86.1 Other chronic pancrea titis<b r/> ARMANI HEIN 11/18 [place] [facility] PT 45 MINUTES 54468-1.61 [id number] 19 Diagnos is: ICD-10- CM F43.12 Post-tr aumatic stress disorde r, chronic
Inna LOPEZ 11/27 [facility] [place] [facility] Outpatient Encounter [id number] [id number] Inder MALDONADO 11/30 [place] [facility] PSYTX W PT 45 MINUTES 40207-2.61 [id number] 57 Diagnos is: ICD-10- CM F43.12 Post-tr aumatic stress disorde r, chronic
Inna LOPEZ 12/03 [facility] [place] [facility] Outpatient Encounter [id number] [id number] GERALD MARCUM 12/04 [facility] Outpatient Encounter [id number] [id number] GERALD MARCUM 12/04 [facility] IS [facility] FLUOROGUID E FOR SPINE INJECT 28575-1.61 [id number] Diagnos is: ICD-10- CM R10.9 Unspeci fied abdomin al pain
YOHANA GRACIA 12/04 [facility] Outpatient Encounter [id number] [id number] 12/04 [place] [facility] Outpatient Encounter [id number] [id number] 12/04 [facility] IS [facility] EMERGENCY DEPT VISIT MOD MDM 53547-6.61 [id number] Diagnos is: ICD-10- CM G89.4 Chronic pain syndrom e
MONEY,ULYSSES 12/04 [facility] PSYTX W PT 45 MINUTES 38394-4.61 [id number] 78 Diagnos is: ICD-10- CM F43.12 Post-tr aumatic stress disorde r, chronic
Inna LOPEZ 12/15 [facility] Outpatient Encounter [id number] [id number] SYSTEM,CIS -ARK 12/20 [facility] IS [facility] Outpatient Encounter [id number] [id number] HUGO CUETO 12/20 [facility] IS [facility] EMERGENCY DEPT VISIT LOW MDM 26962-4.61 [id number] Diagnos is: ICD-10- CM R45.851 Suicida l ideatio ns
THALIA,MONIQUE H 12/20 [facility] IS [facility] Inpatient Encounter [id number] [id number] Admit Reason: DEPRESS ION SI
VARICAT,FR ANCISCO P 12/20 [place] [facility] [place] [facility] Inpatient Encounter 71397-7.61 [id number] UMU BONNER -ARK 12/21 [place] [facility] [place] [facility] Inpatient Encounter [id number] [id number] ÁNGELA PAUL 12/21 [place] [facility] [place] [facility] 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/ M 85394-2.61 [id number] GABRIELA SILVA CQUES T 12/21 [place] [facility] [place] [facility] Inpatient Encounter [id number] [id number] GABRIELA SILVA CQUES T 12/21 [facility] [place] [facility] Inpatient Encounter 70616-5.61 [id number] GABRIELA SILVA CQUES T 12/21 [place] [facility] [place] [facility] Inpatient Encounter [id number] [id number] 12/21 [facility] [place] [facility] Inpatient Encounter [id number] [id number] 12/21 [facility] [place] [facility] Inpatient Encounter [id number] [id number] FABRICE ROBERTS 12/21 [facility] [place] [facility] SBSQ HOSP IP/OBS SF/LOW 25 52075-3.61 [id number] Diagnos is: ICD-10- CM F43.12 Post-tr aumatic stress disorde r, chronic
VARICAT,FR ANCISCO P 12/21 [place] [facility] [place] [facility] Inpatient Encounter [id number] [id number] 12/21 [facility] [place] [facility] CASE MANAGEMENT [id number] [id number] Diagnos is: ICD-10- CM R45.851 Suicida l ideatio ns
Taylor MALDONADO NDREW CK 12/21 [facility] IS [facility] THERAPEUTI C ACTIVITIES 88788-1 [id number] Diagnos is: ICD-10- CM F32.9 Major depress yashira disorde r, single episode , unspeci fied
Carlso WELCH 12/21 [facility] IS [facility] Inpatient Encounter [id number] GEORGE CUEVAS 12/21 [facility] IS [facility] SBSQ HOSP IP/OBS SF/LOW 25 02782-0 [id number] Diagnos is: ICD-10- CM F32.9 Major depress yashira disorde r, single episode , unspeci fied
VARICAT,FR ANCISCO P 12/22 [facility] IS [facility] HLTH BHV IVNTJ GRP EA ADDL [id number] [id number] Diagnos is: ICD-10- CM F32.9 Major depress yashira disorde r, single episode , unspeci fied
GLADYS LY 12/22 [facility] IS [facility] CASE MANAGEMENT [id number] Diagnos is: ICD-10- CM F43.12 Post-tr aumatic stress disorde r, chronic
Taylor MALDONADO NDREW CK 12/22 [facility] IS [facility] 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/ M 78076-9 [id number] Diagnos is: ICD-10- CM F32.9 Major depress yashira disorde r, single episode , unspeci fied
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
VARICAT,FR ANCISCO P 12/23 [facility] IS [facility] Inpatient Encounter [id number] Carlos NATION N 12/23 [facility] IS [facility] CASE MANAGEMENT 93522-5 [id number] Diagnos is: ICD-10- CM Z91.51 Persona l history of suicida l behavio r
Carlos NATION N 12/23 [facility] IS [facility] HLTH BHV IVNTJ GRP EA ADDL [id number] [id number] Diagnos is: ICD-10- CM F43.12 Post-tr aumatic stress disorde r, chronic
GLADYS LY 12/23 [facility] IS [facility] Inpatient Encounter [id number] [id number] SUSU CHAN 12/23 [facility] IS [facility] SBSQ HOSP IP/OBS SF/LOW 25 51711-1.61 [id number] Diagnos is: ICD-10- CM F32.9 Major depress yashira disorde r, single episode , unspeci fied
VARICAT,FR ANCISCO P 12/24 [facility] IVNTJ GRP EA ADDL [id number] [id number] Diagnos is: ICD-10- CM F41.1 General ized anxiety disorde r
MALACHI GLADYS M 12/24 [facility] IS [facility] CASE MANAGEMENT 19100-6.61 [id number] Diagnos is: ICD-10- CM F43.12 Post-tr aumatic stress disorde r, chronic
Taylor MALDONADO 12/24 [facility] IS [facility] IVNTJ GRP EA ADDL 55323-5.61 [id number] Diagnos is: ICD-10- CM Z51.89 Encount er for other specifi ed afterca re
TERESA ACOSTA 12/24 [facility] IS [facility] Inpatient Encounter [id number] [id number] GEORGE CUEVAS 12/24 [facility] IS [facility] Inpatient Encounter [id number] [id number] VARICAT,FR ANCISCO P 12/24 [facility] IS [facility] Inpatient Encounter [id number] [id number] SUSU CHAN 12/24 [facility] IS [facility] SBSQ HOSP IP/OBS MODERATE 35 74061-5.61 [id number] Diagnos is: ICD-10- CM F32.9 Major depress yashira disorde r, single episode , unspeci fied
VARICAT,FR ANCISCO P 12/25 [facility] IS [facility] SBSQ HOSP IP/OBS MODERATE 35 32652-7.61 [id number] Diagnos is: ICD-10- CM F41.1 General ized anxiety disorde r
BAYRON BARAJAS 12/26 [facility] IS [facility] SBSQ HOSP IP/OBS MODERATE 35 11094-0.61 [id number] Diagnos is: ICD-10- CM F32.9 Major depress yashira disorde r, single episode , unspeci fied
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
TERESA ACOSTA 12/27 [facility] IS [facility] Inpatient Encounter [id number] [id number] 12/28 [facility] IS [facility] Inpatient Encounter [id number] [id number] Carlos ORTIZ 12/28 [facility] IS [facility] HOSP IP/OBS DSCHRG MGMT >30 10008-9.61 [id number] Diagnos is: ICD-10- CM F32.9 Major depress yashira disorde r, single episode , unspeci fied
VARICAT,FR ANCISCO P 12/28 [facility] Outpatient Encounter [id number] [id number] 12/28 [facility] IS [facility] Inpatient Encounter [id number] 12/28 [place] [facility] IS [facility] 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/ M 36069-4 [id number] Diagnos is: ICD-10- CM F32.9 Major depress yashira disorde r, single episode , unspeci fied
MARY HURTADO E 12/28 [facility] IS [facility] CASE MANAGEMENT [id number] Diagnos is: ICD-10- CM R45.851 Suicida l ideatio ns
Carlos NATION 12/28 [facility] PRO PHONE CALL 5-10 MIN 46928-161 [id number] 21 Diagnos is: ICD-10- CM F32.9 Major depress yashira disorde r, single episode , unspeci fied
GERALD MARCUM 12/29 [facility] PSYTX W PT 45 MINUTES 52940-2.61 [id number] 28 Diagnos is: ICD-10- CM F43.12 Post-tr aumatic stress disorde r, chronic
Inna LOPEZ M 12/29 [facility] Outpatient Encounter [id number] Inan LOPEZ M 12/31 [facility] IS [facility] Outpatient Encounter [id number] 01/03 [facility] IS [facility] GROUP PSYCHOTHER APY 68614-0 [id number] Diagnos is: ICD-10- CM F33.9 Major depress yashira disorde r, recurre nt, unspeci fied
LAKIA OSMAN A 01/04 [facility] IS [facility] 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/ M [id number] Diagnos is: ICD-10- CM F32.9 Major depress yashira disorde r, single episode , unspeci fied
TERESA ACOSTA J 01/04 [facility] IS [facility] 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/ [id number] Diagnos is: ICD-10- CM F33.9 Major depress yashira disorde r, recurre nt, unspeci fied
RENEE MOORE,AMA NDA G 01/04 [facility] IS [facility] PT EDUCATION NOC GROUP [id number] Diagnos is: ICD-10- CM F32.9 Major depress yashira disorde r, single episode , unspeci fied
MARY HURTADO E 01/04 [facility] IS [facility] OFF/OP EST NOVEMBER X REQ PHY/QHP [id number] Diagnos is: ICD-10- CM F32.9 Major depress yashira disorde r, single episode , unspeci fied
BAUSTAD,NA THAN A 01/04 [facility] IS [facility] 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/ [id number] Diagnos is: ICD-10- CM F32.9 Major depress yashira disorde r, single episode , unspeci fied
LOLA DRISCOLL J 01/04 [facility] IS [facility] 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/ [id number] Diagnos is: ICD-10- CM F43.12 Post-tr aumatic stress disorde r, chronic
MARY HURTADO E 01/04 [facility] IS [facility] Outpatient Encounter [id number] 01/04 [facility] IS [facility] 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/ [id number] Diagnos is: ICD-10- CM F32.9 Major depress yashira disorde r, single episode , unspeci fied
LAKIA OSMAN OTHY A 01/05 [facility] IS [facility] CRISIS INTERVEN IVER/ [id number] Diagnos is: ICD-10- CM F33.1 Major depress yashira disorde r, recurre nt, moderat e
STICH,JOSHI NA M 01/05 [facility] IS [facility] CRISIS INTERVEN / [id number] Diagnos is: ICD-10- CM F32.9 Major depress yashira disorde r, single episode , unspeci fied
YAMILEX SMITH G 01/05 [facility] IS [facility] Outpatient Encounter [id number] Diagnos is: ICD-10- CM G47.9 Sleep disorde r, unspeci fied
NIMA FERRER CA J 01/05 [facility] IS [facility] GROUP PSYCHOTHER APY [id number] Diagnos is: ICD-10- CM F33.9 Major depress yashira disorde r, recurre nt, unspeci fied
JACQUILAKIA HOWARD OTHY A 01/07 [facility] IS [facility] CRISIS INTERVEN / [id number] Diagnos is: ICD-10- CM F33.1 Major depress yashira disorde r, recurre nt, moderat e
STICH,JOSHI NA M 01/07 [facility] IS [facility] CRISIS INTERVEN / [id number] Diagnos is: ICD-10- CM F32.9 Major depress yashira disorde r, single episode , unspeci fied
BAUSTAD,NA THAN A 01/07 [facility] IS [facility] 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/ M 62872-3.61 [id number] Diagnos is: ICD-10- CM F32.9 Major depress yashira disorde r, single episode , unspeci fied
TERESA ACOSTA Inna 01/08 [facility] 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/ M [id number] Diagnos is: ICD-10- CM F33.1 Major depress yashira disorde r, recurre nt, moderat e
STICH,JOSHI NA 01/08 [place] [facility] IS [facility] 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/ M [id number] Diagnos is: ICD-10- CM F33.1 Major depress yashira disorde r, recurre nt, moderat e
STICH,JOSHI NA 01/08 [facility] IS [facility] 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/ [phone] Diagnos is: ICD-10- CM F33.0 Major depress yashira disorde r, recurre nt, mild
STICH,JOSHI NA 01/11 [facility] IS [facility] 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/ M 11186-5.61 [id number] Diagnos is: ICD-10- CM F32.9 Major depress yashira disorde r, single episode , unspeci fied
HOLLI HUFFMAN 01/11 [facility] 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/ M [id number] Diagnos is: ICD-10- CM F33.1 Major depress yashira disorde r, recurre nt, moderat e
STICH,JOSHI NA 01/11 [facility] Outpatient Encounter [id number] 01/12 [facility] IS [facility] GROUP PSYCHOTHER APY [id number] Diagnos is: ICD-10- CM F33.9 Major depress yashira disorde r, recurre nt, unspeci fied
LAKIA OSMAN OTHY A 01/12 [facility] IS [facility] 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/ M [id number] Diagnos is: ICD-10- CM F32.9 Major depress yashira disorde r, single episode , unspeci fied
SELCAHOLLII SA M 01/12 [facility] IS [facility] 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/ M [phone] Diagnos is: ICD-10- CM F32.9 Major depress yashira disorde r, single episode , unspeci fied
HOLLI HUFFMAN RUSSELL 01/12 [facility] IS [facility] 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/ [id number] Diagnos is: ICD-10- CM F32.9 Major depress yashira disorde r, single episode , unspeci fied
MARY HURTADO 01/12 [facility] IS [facility] PSYCHOTHER APY [id number] Diagnos is: ICD-10- CM F33.9 Major depress yashira disorde r, recurre nt, unspeci fied
LAKIA OSMAN OTHY A 01/13 [facility] IS [facility] 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/ M [id number] Diagnos is: ICD-10- CM F32.9 Major depress yashira disorde r, single episode , unspeci fied
JACQUILAKIA OTHY A 01/13 [facility] IS [facility] 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/ M [id number] Diagnos is: ICD-10- CM F33.0 Major depress yashira disorde r, recurre nt, mild
STICH,JOSHI NA M 01/13 [facility] OFFICE O/P EST LOW 20 MIN [id number] Diagnos is: ICD-10- CM F43.12 Post-tr aumatic stress disorde r, chronic
LOLA DRISCOLL J 01/13 [facility] IS [facility] 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/ M [phone] Diagnos is: ICD-10- CM F32.9 Major depress yashira disorde r, single episode , unspeci fied
LAKIA OSMAN OTHY A 01/14 [facility] IS [facility] 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/ M [id number] Diagnos is: ICD-10- CM F33.9 Major depress yashira disorde r, recurre nt, unspeci fied
YAMILEX SMITH NDTaylor G 01/14 [place] [facility] IS [facility] 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/ M [phone] Diagnos is: ICD-10- CM F32.9 Major depress yashira disorde r, single episode , unspeci fied
MARY HURTADO E 01/14 [facility] QNHP OL DIG ASSMT&MGMT 21+ [id number] Diagnos is: ICD-10- CM F43.12 Post-tr aumatic stress disorde r, chronic
Isaac SAWYER M 01/15 [facility] IS [facility] GROUP PSYCHOTHER APY [id number] Diagnos is: ICD-10- CM F33.9 Major depress yashira disorde r, recurre nt, unspeci fied
LAKIA OSMAN OTHY A 01/15 [facility] IS [facility] 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/ M [id number] Diagnos is: ICD-10- CM F33.9 Major depress yashira disorde r, recurre nt, unspeci fied
YAMILEX SMITH 01/15 [facility] IS [facility] 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/ M [id number] Diagnos is: ICD-10- CM F32.9 Major depress yashira disorde r, single episode , unspeci fied
STICH,JOSHI NA M 01/15 [facility] IS [facility] 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/ M [id number] Diagnos is: ICD-10- CM F33.0 Major depress yashira disorde r, recurre nt, mild
STICH,JOSHI NA M 01/18 [facility] 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/ M [id number] Diagnos is: ICD-10- CM F32.9 Major depress yashira disorde r, single episode , unspeci fied
LAKIA OSMAN OTHY A 01/18 [facility] GROUP PSYCHOTHER APY [id number] Diagnos is: ICD-10- CM F43.12 Post-tr aumatic stress disorde r, chronic
LAKIA OSMAN OTHY A 01/18 [facility] OFFICE O/P EST LOW 20 MIN [id number] Diagnos is: ICD-10- CM Z86.59 Persona l history of other mental and behavio ral disorde rs
LOLA DRISCOLL 01/18 [facility] 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/ M [id number] Diagnos is: ICD-10- CM F32.9 Major depress yashira disorde r, single episode , unspeci fied
MARY HURTADO 01/19 [facility] 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/ M 19578-2.61 [id number] Diagnos is: ICD-10- CM F32.9 Major depress yashira disorde r, single episode , unspeci fied
RENEE MOOREYAMILEX JANET Quiroga 01/19 [facility] 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/ M 89078-5.61 [id number] Diagnos is: ICD-10- CM F32.9 Major depress yashira disorde r, single episode , unspeci fied
MARY HURTADO E 01/19 [facility] 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/ M 82338-4.61 [id number] Diagnos is: ICD-10- CM F43.12 Post-tr aumatic stress disorde r, chronic
MARY HURTADO E 01/20 [facility] 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/ M 17426-3.61 [id number] Diagnos is: ICD-10- CM F32.9 Major depress yashira disorde r, single episode , unspeci fied
HOLLI HUFFMAN 01/20 [facility] 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/ M 13295-6.61 [id number] Diagnos is: ICD-10- CM F32.9 Major depress yashira disorde r, single episode , unspeci fied
MARY HURTADO E 01/20 [facility] 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/ M 17560-3.61 [id number] Diagnos is: ICD-10- CM F32.9 Major depress yashira disorde r, single episode , unspeci fied
MARY HURTADONA E 01/22 [facility] 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/ M 53755-4.61 [id number] Diagnos is: ICD-10- CM F33.9 Major depress yashira disorde r, recurre nt, unspeci fied
YAMILEX SMITH G 01/22 [facility] PSYCHOTHER APY 86733-1 [id number] Diagnos is: ICD-10- CM F43.12 Post-tr aumatic stress disorde r, chronic
JACQUILAKIA OTPINO A 01/22 [facility] Outpatient Encounter [id number] 01/22 [facility] 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/ M 48922-2.61 [id number] Diagnos is: ICD-10- CM F32.9 Major depress yashira disorde r, single episode , unspeci fied
MARY HURTADO E 01/22 [facility] HEARING AID REPAIR/MOD IFYING [id number] Diagnos is: ICD-10- CM H90.3 Sensori neural hearing loss, bilater al
LOR CHAMPAGNE K 01/23 [facility] 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/ M [id number] Diagnos is: ICD-10- CM F43.12 Post-tr aumatic stress disorde r, chronic
Inna LOPEZ 01/28 [facility] MTMS BY PHARM ADDL 15 MIN [phone] Diagnos is: ICD-10- CM F43.12 Post-tr aumatic stress disorde r, chronic
SANTOS DE LA CRUZ 01/28 [facility] PSYTX W PT 45 MINUTES [id number] [id number] Diagnos is: ICD-10- CM F43.12 Post-tr aumatic stress disorde r, chronic
Inna LOPEZ 02/03 [facility] [place] [facility] PRO PHONE CALL 11-20 MIN 74285-3.61 [phone] Diagnos is: ICD-10- CM Z51.89 Encount er for other specifi ed afterca re
TERESA ACOSTA 02/04 [place] [facility] [place] [facility] [place] [address]-5.61 [phone] Diagnos is: ICD-10- CM Z51.89 Encount er for other specifi ed afterca re
TERESA ACOSTA 02/06 [place] [facility] [place] [facility] [place] [address]-3.61 [phone] Diagnos is: ICD-10- CM Z51.89 Encount er for other specifi ed afterca re
TERESA ACOSTA 02/06 [place] [facility] PSYTX W PT 45 MINUTES 10950-4.61 [id number] Diagnos is: ICD-10- CM F43.12 Post-tr aumatic stress disorde r, chronic
Inna LOPEZ 02/10 [facility] [place] [facility] MTMS BY PHARM EST 15 MIN [id number] [id number] Diagnos is: ICD-10- CM F33.2 Major depress v disorde r, recurre nt severe w/o psych feature s
DOROTHY,ANT OINETTE D 02/10 [place] [facility] 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/ M 93938-9.61 [id number] Diagnos is: ICD-10- CM F43.12 Post-tr aumatic stress disorde r, chronic
Inna LOPEZ 02/17 [facility] [place] [facility] MTMS BY PHARM EST 15 MIN 81054-7.61 [id number] Diagnos is: ICD-10- CM F33.2 Major depress v disorde r, recurre nt severe w/o psych feature s
SANTOS DE LA CRUZ D 02/18 [place] [facility] PSYTX W PT 45 MINUTES [id number] [id number] Diagnos is: ICD-10- CM F43.12 Post-tr aumatic stress disorde r, chronic
Inna LOPEZ 02/24 [facility] PSYTX W PT 45 MINUTES 91300-7.61 [id number] Diagnos is: ICD-10- CM F43.12 Post-tr aumatic stress disorde r, chronic
Inna LOPEZ 03/02 [facility] OFFICE O/P NEW HI 60 MIN 21257-0.61 [id number] Diagnos is: ICD-10- CM F32.9 Major depress yashira disorde r, single episode , unspeci fied
THERON BEE N L 03/03 [facility] 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/ M 71544-8.61 [id number] Diagnos is: ICD-10- CM F43.12 Post-tr aumatic stress disorde r, chronic
Inna LOPEZ 03/10 [facility] HC PRO PHONE CALL 5-10 MIN [id number] [id number] Diagnos is: ICD-10- CM F43.10 Post-tr aumatic stress disorde r, unspeci fied
JANELLE CARDOZA A 03/11 [facility] [place] [facility] Outpatient Encounter [id number] [id number] 03/15 [place] [facility] 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/ M 98834-0.61 [id number] Diagnos is: ICD-10- CM F43.12 Post-tr aumatic stress disorde r, chronic
Inna LOPEZ 03/24 [facility] Outpatient Encounter [id number] [id number] HUGO CUETO 03/24 [place] [facility] IS [facility] PSYCH DIAGNOSTIC EVALUATION [id number] [id number] Diagnos is: ICD-10- CM F32.9 Major depress yashira disorde r, single episode , unspeci fied
HA CURRIE HEW E 03[facility]25 [facility] Outpatient Encounter [id number] [phone] SANDEEPInna CARLOS Loving 03/30 [facility] 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/ 94798-9.61 [id number] Diagnos is: ICD-10- CM F43.12 Post-tr aumatic stress disorde r, chronic
Inna LOPEZ 04/05 [facility] Outpatient Encounter [id number] [id number] 04/06 [facility] 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/ 53838-3.61 [id number] Diagnos is: ICD-10- CM F51.5 Nightma re disorde r
NANIHARRISCarlos LOPEZ A 04/09 [facility] PSYCL TST EVAL PHYS/QHP 1ST [id number] [id number] Diagnos is: ICD-10- CM F43.12 Post-tr aumatic stress disorde r, chronic
HA CURRIE HEW E 04/09 [facility] PT 45 MINUTES 97616-0.61 [id number] Diagnos is: ICD-10- CM F43.12 Post-tr aumatic stress disorde r, chronic
Inna LOPEZ M 04/12 [facility] OFFICE O/P EST HI 40 MIN 68061-4.61 [id number] Diagnos is: ICD-10- CM F32.9 Major depress yashira disorde r, single episode , unspeci fied
YOHANA GRACIA CARDENAS D 04/19 [facility] Outpatient Encounter 39234-3.61 [id number] 04/19 [facility] BREATHING CAPACITY TEST 30710-0.61 [id number] 10 Diagnos is: ICD-10- CM Z13.83 Encount er for screeni ng for respira tory disorde r NEC<br/ > MELANI MUJICA M 04/19 [facility] [place] [facility] BREATHING CAPACITY TEST 06425-9.61 [id number] Diagnos is: ICD-10- CM R06.00 Dyspnea , unspeci fied
HENRY FERNANDEZ E 04/19 [place] [facility] 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/ M 58117-6.61 [id number] Diagnos is: ICD-10- CM F51.5 Nightma re disorde r
JANELLE CARDOZA JOHN A 04/20 [facility] [place] [facility] Outpatient Encounter [id number] [id number] 04/20 [place] [facility] [place] [facility] Outpatient Encounter [id number] [id number] 04/21 [place] [facility] [place] [facility] Outpatient Encounter [id number] [id number] 04/21 [place] [facility] Outpatient Encounter 96268-3.61 [id number] 04/26 [facility] 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/ M 82751-3.61 [id number] Diagnos is: ICD-10- CM F51.5 Nightma re disorde r
JANELLE CARDOZA A 04/27 [facility] OFFICE O/P EST HI 40 MIN 74167-7.61 [id number] Diagnos is: ICD-10- CM F32.9 Major depress yashira disorde r, single episode , unspeci fied
THERON BEE L 04/28 [facility] [place] [facility] Outpatient Encounter [id number] [id number] 04/30 [place] [facility] [place] [facility] Outpatient Encounter [id number] [id number] VICTORIAYOAN 04/30 [place] [facility] [place] [facility] Outpatient Encounter [id number] [id number] HIENYOAN PEREZ 04/30 [facility] Procedures Combined list of: 1) Procedures from [facility] Veterans Affairs facilities going back up to thelast 18 months, not all [place] non-surgical procedures are included; 2) All procedures from the Department of Defense facilities. Procedure Procedure Type Code Date Perfomer Comments Sour e Physician Supervised Ordering / Handling / Fitting Patient Devices Physician Supervised Ordering / Handling / Fitting Patient Devices 06584 7 SARA DIEHL [facility] Patient Training And Self-Care Skills Patient Training And Self-Care Skills 26959 7 SARA DIEHL [facility] Repair And Refitting Gla es (Not For Aphakia) Repair And Refitting Glasses (Not For Aphakia) 61756 7 FREDERICK MENDOZA [facility] Spectacles Services Fitting Monofocal Except For Aphakia Spectacles Services Fitting Monofocal Except For Aphakia 06904 7 FREDERICK MENDOZA [facility] Patient Training And Self-Care Skills Patient Training And Self-Care Skills 53001 7 ORTIZ RUTHERFORD [facility] Phys Therapy Education Self Care Training - Per 15 Minutes Phys Therapy Education Self Care Training - Per 15 Minutes 18399 7 MARCIE DANG [facility] Patient Training And Self-Care Skills Patient Training And Self-Care Skills 80996 7 MARCIE DANG [facility] Physician Supervised Ordering / Handling / Fitting Patient Devices Physician Supervised Ordering / Handling / Fitting Patient Devices 19077 7 ESTER CHEUNG Patient Training And Self-Care Skills Patient Training And Self-Care Skills 03862 7 ESTER CHEUNG [facility] Services Fitting Monofocal Except For Aphakia Spectacles Services Fitting Monofocal Except For Aphakia 01925 7 SUZIE GUERRA [facility] Screening Test Of Visual Acuity, Quantitative, Bilateral Screening Test Of Visual Acuity, Quantitative, Bilateral 91974 7 [facility] Determination Of Refractive State Determination Of Refractive State 95290 7 [facility] Ear mold/insert, not disposable, any type 7 BRANDEN CAREY [facility] Testing 60852 7 BRANDEN CAREY Physician Supervised Group Educational Services 7 BRANDEN CAREY SELF-CARE/HOME MANAGMENT TRAIN (EG,ACT OF DAILY LIVING (ADL) &COMPENSAT TRAIN,MEAL PREPARATION,SAFETY PROCS,AND INSTRUCT IN USE OF ASST TECHNOLOGY DEV/ADPT EQUIP) DIR ONE-ON-ONE CONT,EA 15 MINUTES 7 DoD REPAIR AND REFITTING SPECTACLES; EXCEPT FOR APHAKIA 7 [facility] SELF-CARE/HOME MANAGMENT TRAIN (EG,ACT OF DAILY LIVING (ADL) &COMPENSAT TRAIN,MEAL PREPARATION,SAFETY PROCS,AND INSTRUCT IN USE OF ASST TECHNOLOGY DEV/ADPT EQUIP) DIR ONE-ON-ONE CONT,EA 15 MINUTES 7 [facility] SELF-CARE/HOME MANAGMENT TRAIN (EG,ACT OF DAILY LIVING (ADL) &COMPENSAT TRAIN,MEAL PREPARATION,SAFETY PROCS,AND INSTRUCT IN USE OF ASST TECHNOLOGY DEV/ADPT EQUIP) DIR ONE-ON-ONE CONT,EA 15 MINUTES 7 DoD HANDLING,CONVEY,&/A [place] OTH SERV,CONN W IMP OF ORD INV DEV (EG,DESIGN,FIT,PCK, HND,DEL/MAIL) WHEN DEV SUCH ORTH,PROT,PROSTH,FA B,OUTSIDE LAB/SHOP BUT ITEM JF,&ARE TO BE FIT&ADJ,ATT PHYS/OTH QUAL HCP 7 [facility] THERAPEUTIC, PROPHYLACTIC OR DIAGNOSTIC INJECTION (SPECIFY SUBSTANCE OR DRUG); SUBCUTANEOUS OR INTRAMUSCULAR 7 DoD FITTING OF SPECTACLES, EXCEPT FOR APHAKIA; MONOFOCAL 7 [facility] EAR MOLD/INSERT, NOT DISPOSABLE, ANY TYPE 7 DoD Social History Combined list of 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 Social History Type Response Date Comment Sour e Tobacco smoking status NHIS [place]-TOBACCO FORMER USER 01/05/2024 [facility] JASS[facility] History of tobacco use MT-TOBACCO QUIT 5 TO < 15 YRS 01/05/2024 [facility] History of tobacco use [place]-TOBACCO FORMER USER 03/27/2023 DEEPIKA MONREAL This section is an empty social history section. [facility] Plan of Care List of future care activities from Department [facility] facilities. Additional future care activities may be listed in the Assessment and Plan section. Date/Time Care Activity Care Activity Detail Facili ty 05/05/2024 AMBULATORY - NONE [facility] - PSYCHIATRY AMBULAT[facility] - [facility] 05/11/2024 AMBULATORY - PSYCHIATRY AMBULATORY - [facility]C [facility] 05/18/2024 AMBULATORY - PSYCHIATRY AMBULATORY - PSYC HIATRY [facility] 05/18/2024 AMBULATORY - MEDICINE AMBULATORY - MEDICI NE [facility] 05/24/2024 AMBULATORY - PSYCHIATRY AMBULATORY - PSYC HIATRY [facility] 04/19/2024 Consult Order CARDIAC ECHO OUT PT-ALL SITES Cons [facility] DEEPIKA NOEL 04/19/2024 Consult Order CARDIAC ECHO-SPE CIAL PROCEDURE Cons [facility] DEEPIKA MONREAL 04/19/2024 Consult Order COMMUNITY CARE-N [facility] MEDICINE Cons [facility] Advance Directives List of completed, amended, or rescinded Advance Directives on record at Department [facility] facilities. An actual copy of the Directive is not included. Date Advance Directive Provider Source 01/05/2024 ADVANCE DIRECTIVE DISCUSSION SHAHID HURTADO [facility]
--- OUTSIDE RECORDS SUMMARY | 2024-05-04 07:50 | XMS_ITS | Encounter Summary ---
Author Name [facility] [place] Organization [place] Address [address] [place] [address] Care Team Providers Care Director Long Term Care Name Role Phone EMIR GRACIA Primary Care Provider Unavailabl e Selected Encounter This section includes the information on record at [place] for the Encounter. Date/Time Encounter Type Encounter Description Reason Pro vider Source November 19, 2023 03:00 PM OFFICE O/P EST MOD 30 MIN GASTROENTEROLOGY ICD-10-CM R19.7 Diarrhea, unspecified PIA ESPINOSA Encounter Template Text not used by [place] Assessments - Encounter Diagnoses This section includes the primary and secondary diagnoses documented for the Encounter. Date/Time Primary/Secondary Diagnosis Diagnosis Name Provider Source November 19, 2023 05:07 PM PRIMARY Diarrhea, unspecified NELSON ONEIL [facility] November 19, 2023 05:07 PM SECONDARY Acute pancreatitis without necrosis or infection, unsp [facility] Plan of Treatment: Future Appointments (+ [...] 20 appointments. The data comes from all [facility]. Appointment Date/Time Appointment Type Appointme nt Facility Name November 28, 2023 01:00 PM AMBULATORY - PS[facility]CHIATRY [facility] December 01, 2023 02:15 PM AMBULATORY - NONE [facility] December 04, 2023 09:00 AM [facility] December 05, 2023 01:20 PM AMBULATORY - REHAB [facility] December 05, 2023 02:45 PM AMBULATORY - MEDICINE [facility] December 16, 2023 02:00 PM AMBULATORY - PSYCHIATRY [facility] Dec 21, 2023 04:08 PM AMBULATORY - MEDICINE [facility] Dec 29, 2023 11:30 AM AMBULATORY [place]IATRY [place] [facility] Dec 30, 2023 10:30 AM AMBULATORY - MEDICINE LEEANN OPROLDAN [facility] Dec 30, 2023 01:00 PM AMBULATORY - PSYCHIATRY SH WILI [facility] Jan 04, 2024 02:00 PM AMBULATORY - NONE [facility] Jan 05, 2024 08:45 AM AMBUL[facility]ORY [place]AT[place] [facility] Jan 05, 2024 10:00 AM AMBUL[facility]ORY [place]ATRY [place] [facility] Jan 05, 2024 11:00 AM [facility] [place]AT[place] [facility] Jan 05, 2024 12:00 PM [facility] [place]AT[place] [facility] Jan 05, 2024 12:30 PM [facility] [place]ATRY [place] [facility] Jan 05, 2024 02:30 PM AMB[facility]ORY [place] [facility]ATRY [place] [facility] Jan 06, 2024 08:45 AM [facility] [place] [facility]ATRY [place] [facility] Jan 06, 2024 10:00 AM AMB[facility]ORY [place] [facility]IATRY [place] [facility] Jan 06, 2024 11:00 AM AMBULATORY [place] [facility]IATRY [place] [facility] Active, Pending, and Scheduled Orders This section includes a listing of several types of active, pending, and scheduled orders, including clinic medications orders, diagnostic test orders, procedure orders and consult orders; where the start date of the order is 45 days before the date of the Encounter or 45 days after the date of theEncounter. The data comes from all [facility]. Test Date/Time Test Type Test Details Facility [...] SP ONCE [facility] Dec 21, 2023 04:56 PM Laboratory - Chemi stry Order SALICYLATE SERUM STAT SP [facility] Lab Results: +/- 30 days of the encounter This section includes the Chemistry and Hematology Lab Results on record with [place] for the patient. Radiology Reports and Pathology [...] SERUM No comment entered. Ordering Provider: NELSON ONEIL Report Released Date/Time: December 05, 2023 02:39 PM Reporting Lab: [facility] [address] Performing Lab: [facility] [address] EXTRA RED TUBE RECEIVED December 05, 2023 02:20 PM [facility] LACTIC ACID Specimen Type: PLASMA No comment entered. Ordering Provider: NELSON ONEIL Report Released Date/Time: December 05, 2023 02:27 PM Reporting Lab: [facility] [address] Performing Lab: [facility] [address] LACTIC ACID 1.7 mmol/L 0.5-2.2 December 05, 2023 02:20 PM [facility] CBC Specimen Type: BLOOD No comment entered. Ordering Provider: NELSON ONEIL Report Released Date/Time: December 05, 2023 02:27 PM Reporting Lab: [facility] [address] Performing Lab: [facility] [address] WBC 11.50 10*3/uL H 4.0-11.0 RBC 4.83 10*6/uL 4.0-5.4 HGB 13.6 g/dL 11.5-16 HCT 39.8 34.5-48 MCV 82.4 fL 80-100 MCH 28.2 pg 27-33 MCHC 34.2 g/dL 32.0-37.5 PLT 443 10*3/uL H 150-400 MPV 9.1 fL 7.4-10.4 RDW 12.5 11.5-14.5 December 05, 2023 02:20 PM [facility] CODE BLUE(LYTE,CR,UN,GL,MG,CA,PHOS,TROP) Specimen Type: PLASMA No comment entered. Ordering Provider: NELSON ONEIL Report Released Date/Time: December 05, 2023 02:27 PM Reporting Lab: [facility] [address] Performing Lab: [facility] [address] CREATININE 1.1 mg/dL H 0.5-1.0 UREA NITROGEN [...] SERUM No comment entered. Ordering Provider: NELSON ONEIL Report Released Date/Time: December 05, 2023 02:39 PM Reporting Lab: [facility] [address] Performing Lab: [facility] [address] EXTRA GOLD GEL TUBE RECEIVED December 05, 2023 02:20 PM [facility] PROTHROMBIN TIME/INR Specimen Type: PLASMA No comment entered. Ordering Provider: NELSON ONEIL Report Released Date/Time: December 05, 2023 02:27 PM Reporting Lab: [facility] [address] Performing Lab: [facility] [address] .INR 1.2 H 0.8-1.1 .PT 13.5 s H 9.4-12.5 December 05, 2023 02:18 PM [facility] POC ABG/ELECTROLYTES Specimen Type: VENOUS BLOOD Comment: FIO2 = 40% Patient Temp: 36.6 C Sample Type = VENOUS Ordering Provider: ULYSSES ELDER Report Released Date/Time: December 06, 2023 08:24 PM Reporting Lab: [facility] [address] Performing Lab: [facility] [address] POC PH 7.382 7.31-7.41 POC PCO2 35.0 [...] PO2 AT PAT TEMP 35 mm[Hg] 35.0-40.0 Advance Directives: All historical and current Section Date Range: From patient's date of to the date document was created. This section includes ALL of a patient's completed or amended [place] Advance and Rescinded Directives. The entries below indicate that a directive exists for the patient, but an actual copy is not included with this document. The data comes from all [place] facilities. Date Advance Directives Provider Source Jan 05, 2024 ADVANCE DIRECTIVE DISCUSSION SHAHID HURTADO ARINA Melo [facility] Encounter Notes: All associated encounter notes This [...] GI to be sent out to her. Hector states that she never received the stool sample kit and is inquiring if one can be sent out to her address on file. Veterans contact number is listed below for any additional information and questions if needed, if appropriate. /es/ [facility],V23 [place] [facility] Signed: 12/10/2023 17:05 Receipt Acknowledged By: 12/12/2023 11:30 /es/ Nelson Oneil GI fellow --- Original Document --- [...] pain clinic which is now transferred to [place]. # Recurrent acute pancreatitis Last EUS 04/2023 [...] Discussed with Dr. Packer and Dr. Garcia. Nelson Oneil MD GI fellow [phone] -- HPI: 42 yo F with chronic [...] now with only protein shake. 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 /lilia/ Nelson Oneil GI fellow Signed: 11/19/2023 17:09 [facility] November 19, 2023 11:30 AM GASTROENTEROLOGY ATTENDING NOTE: LOCAL TITLE: GI CLINIC NOTE STANDARD TITLE: GASTROENTEROLOGY ATTENDING NOTE DATE OF NOTE: NOVEMBER 19, 2023@11:30 ENTRY DATE: NOVEMBER 19, 2023@11:30:35 AUTHOR: NELSON ONEIL COSIGNER: URGENCY: STATUS: COMPLETED GI CLINIC NOTE [...] pain clinic which is now transferred [place]. # Recurrent acute pancreatitis Last EUS 04/2023 [...] Discussed with Dr. Packer and Dr. Garcia. Nelson Oneil MD GI fellow [phone] -- HPI: 42 yo F with chronic [...] now with only protein shake. 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 /lilia/ Nelson Oneil GI fellow Signed: 11/19/2023 17:09 12/10/2023 ADDENDUM STATUS: COMPLETED Hector called stating that she was awaiting a stool sample kit from to be sent out to her. states that she never received the stool sample kit and is inquiring if one can be sent out to her address on file. Veterans contact number is listed below for any additional information and questions if needed, if appropriate. /es/ [facility],V23 [facility] Signed: 12/10/2023 17:05 Receipt Acknowledged By: 12/12/2023 11:30 /sandra Oneil GI fellow 12/12/2023 ADDENDUM STATUS: COMPLETED the stool kit will be mailed out today. /lilia/ Nelson Oneil GI fellow Signed: 12/12/2023 11:33 NELSON ONEIL [facility]
--- OUTSIDE RECORDS SUMMARY | 2024-05-04 07:50 | XMS_ITS | Encounter Summary ---
Author Name [facility] [place] Organization [facility] [place] Address [address] [place] [address] Care Team Providers Care Recordings Librarian Name Role Phone EMIR GRACIA Primary Care Provider Unavailabl e Selected Encounter This section includes the information on record at [place] for the Encounter. Date/Time Encounter Type Encounter Description Reason Provider Source Sep 10, 2023 07:12 PM EMERGENCY DEPT VISIT [facility] EMERGENCY DEPT ICD-10-CM R10.10 Upper abdominal pain, unspecified ALEX POWELL Lorie Encounter Template Text not used by [place] Assessments - Encounter Diagnoses This section includes the primary and secondary diagnoses documented for the Encounter. Date/Time Primary/Secondary Diagnosis Diagnosis Name Provider Source Sep 10, 2023 11:11 PM PRIMARY Upper abdominal pain, unspecified ALEX POWELL [facility] Plan of Treatment: Future Appointments (+ 6 months) and Future Tests (+/- 45 days) The Plan of Treatment section includes future care activities for the patient from all [place] treatmentfacilities. This section includes future appointments and future orders which are active, pending or scheduled. Future Appointments This section includes appointments that were scheduled to occur 6 months from the date of the Encounter, up to a maximum of 20 appointments. The data comes from all [place] treatment facilities. Appointment Date/Time Appointment Type Appointme nt Facility Name Sep 19, 2023 12:50 PM [facility] Oct 01, 2023 01:00 PM AM[facility] - [facility]RY [facility] Oct 08, 2023 01:00 PM [facility] Oct 22, 2023 01:00 PM [facility] Nov 05, 2023 01:00 PM AMBULATORY - [facility]ATRY [facility] November 19, 2023 03:00 PM AMBULATORY - MEDICINE [facility] November 28, 2023 01:00 PM AMBULATORY - [facility]IATRY [facility] December 01, 2023 02:15 PM [facility] December 04, 2023 09:00 AM AMBULATORY - [facility]CHIATRY [facility] December 05, 2023 01:20 PM AMBULATORY - REHAB MEDICIN E [facility] December 05, 2023 02:45 PM AMBULATORY - MEDICINE [facility] December 16, 2023 02:00 PM AMBULATORY - PS[facility]CHIATRY [facility] Dec 21, 2023 04:08 PM AMBULATORY - MEDICINE [facility] Dec 29, 2023 11:30 AM AMBULATORY - PSYCHIATRY [place] [facility] Dec 30, 2023 10:30 AM AMBULATORY - MEDICINE [facility] Dec 30, 2023 01:00 PM AMBULATORY - [facility]IATRY [facility] Jan 04, 2024 02:00 PM AMBULATORY - NONE [facility] Jan 05, 2024 08:45 AM AMBULATORY - PSYCHIATRY [place] [facility] Jan 05, 2024 10:00 AM AMBULATORY - PSYCHIATRY [place] [facility] Jan 05, 2024 11:00 AM AMBULATORY - PSYCHIATRY [facility] Lab Results: +/- 30 days of the encounter This section includes the Chemistry and Hematology Lab Results on record with [place] for the patient. Radiology Reports and Pathology Reports are provided separately, in subsequent sections. Lab Results This section contains the Chemistry/Hematology Results that were resulted 30 days before or 30 daysafter the date of the Encounter. Date/Time Source Result Type Result - Unit Interpretation Reference Range Comment Sep 10, 2023 07:34 PM [facility] EXTRA MINT TUBE Specimen Type: PLASMA No comment entered. Ordering Provider: ALEX POWELL Report Released Date/Time: Sep 10, 2023 07:55 PM Reporting Lab: [facility] [address] Performing Lab: [facility] [address] EXTRA MINT TUBE RECEIVED Sep 10, 2023 07:34 PM [facility] LIPASE Specimen Type: PLASMA No comment entered. Ordering Provider: ALEX POWELL Report Released Date/Time: Sep 10, 2023 07:49 PM Reporting Lab: [facility] [address] Performing Lab: [facility] [address] LIPASE 68 U/L H <60 Sep 10, 2023 07:34 PM [facility] HCG,QUANTITATIVE Specimen Type: SERUM No comment entered. Ordering Provider: ALEX POWELL Report Released Date/Time: Sep 10, 2023 07:49 PM Reporting Lab: [facility] [address] Performing Lab: [facility] [address] HCG,QUANTITATIV E <2.42 m[IU]/mL <4.99 Sep 10, 2023 07:34 PM [facility] EXTRA BLUE TUBE Specimen Type: PLASMA No comment entered. Ordering Provider: ALEX POWELL Report Released Date/Time: Sep 10, 2023 07:55 PM Reporting Lab: [facility] [address] Performing Lab: [facility] [address] EXTRA BLUE TUBE RECEIVED Sep 10, 2023 07:34 PM [facility] COMPREHENSIVE METABOLIC PANEL+MG Specimen Type: PLASMA No comment entered. Ordering Provider: ALEX POWELL Report Released Date/Time: Sep 10, 2023 07:49 PM Reporting Lab: [facility] [address] Performing Lab: [facility] [address] CREATININE 1.0 mg/dL 0.5-1.0 UREA NITROGEN 13 mg/dL 7-20 GLUCOSE 94 mg/dL 70-100 SODIUM 136 mmol/L 136-145 POTASSIUM 3.8 mmol/L 3.5-5.1 CHLORIDE 104 mmol/L 98-107 CO2 21 mmol/L L 22-29 CALCIUM 9.4 mg/dL 8.4-10.2 PROTEIN,TOTAL 7.2 g/dL 6.0-8.3 ALBUMIN 4.3 g/dL 3.5-5.2 BILIRUBIN, TOTAL 1.0 mg/dL 0.2-1.2 MAGNESIUM 2.0 mg/dL 1.6-2.6 ANION GAP 11 mmol/L 5-15 ALKALINE PHOSPHATASE 49 U/L 40-150 ALT/SGPT 23 U/L <55 AST/SGOT 18 U/L <34 .CREAT EGFR(CKD-EPI) 72 >60 Sep 10, 2023 07:34 PM [facility] CBC & DIFF Specimen Type: BLOOD Comment: Automated Differential Performed Ordering Provider: ALEX POWELL Report Released Date/Time: Sep 10, 2023 07:49 PM Reporting Lab: [facility] [address] Performing Lab: [facility] [address] WBC 7.45 10*3/uL 4.0-11.0 RBC 4.80 10*6/uL 4.0-5.4 HGB 13.6 g/dL 11.5-16 HCT 39.2 34.5-48 MCV 81.7 fL 80-100 MCH 28.3 pg 27-33 MCHC 34.7 g/dL 32.0-37.5 PLT 369 10*3/uL 150-400 MPV 9.4 fL 7.4-10.4 NEUT 55.3 40.0-80.0 LYMPHS 31.8 15.0-45.0 MONO 9.8 2.0-12.0 EOSINO 1.7 0.0-6.0 BASO 1.1 0.0-2.0 RDW 12.5 11.5-14.5 ABS LYMPH 2.37 10*3/uL 1.0-4.0 ABS MONO 0.73 10*3/uL 0.1-1.0 ABS NEUT 4.12 10*3/uL 2.0-7.7 ABS EOS 0.13 10*3/uL 0-0.5 ABS BASO 0.08 10*3/uL 0-0.2 IG(META,MYELO,P RO) 0.3 ABS IMMATURE GRAN 0.02 10*3/uL 0-0.1 Vital Signs: All taken on the encounter date This section contains inpatient and outpatient Vital Signs collected on the date of the Encounter. Date/Time Temperature Pulse Blood Pressure Respiratory Rate SP02 Pain Height Weight Body Mass Index Source Sep 10, 2023 07:17 PM 98.7 81 155/90 24 6 [place] [facility] Advance Directives: All historical and current Section Date Range: From patient's date of to the date document was created. This section includes ALL of a patient's completed or amended [place] Advance and Rescinded Directives. The entries below indicate that a directive exists for the patient, but an actual copy is not included with this document. The data comes from all [place] facilities. Date Advance Directives Provider Source Jan 05, 2024 ADVANCE DIRECTIVE DISCUSSION SHAHID HURTADO [facility] Encounter Notes: All associated encounter notes This section contains the clinical notes associated to the Encounter. Date/Time Encounter Note(s) Provider Source Sep 10, 2023 09:30 PM NURSING EMERGENCY DEPT NOTE: LOCAL TITLE: EMERGENCY DEPT NURSING NOTE STANDARD TITLE: NURSING EMERGENCY DEPT NOTE DATE OF NOTE: SEP 10, 2023@21:30 ENTRY DATE: SEP 11, 2023@06:34:28 AUTHOR: BAYRON BROWN EXP COSIGNER: URGENCY: STATUS: COMPLETED Emergency Department Discharge Education Personal Protective Equipment (PPE): Patient was in mask on arrival, patient remained masked for entire visit, RN used PPE during every encounter with the patient, MD/PA/SLASH TRIMMER used PPE during every encounter with the [...] EXIT ADDITIONAL EDUCATION GIVE: Discharged to: Home // BAYRON BROWN RN Signed: 09/11/2023 06:35 BAYRON BROWN [facility] Sep 10, 2023 09:15 PM EMERGENCY DEPT EDU CATION NOTE: LOCAL TITLE: EMERGENCY DEPT DISCHARGE INSTRUCTIONS STANDARD TITLE: EMERGENCY DEPT EDUCATION NOTE DATE OF NOTE: SEP 10, 2023@21:15:15 ENTRY DATE: SEP 10, 2023@21:15:15 AUTHOR: ALEX POWELL EXP COSIGNER: URGENCY: STATUS: COMPLETED DISCHARGE INSTRUCTIONS [...] Is About Your Diet FAT-RESTRICTED NUTRITION THERAPY ([place] [employer]. Nutrition Care Manual. July 2013) [...] POWELL Physician Signed: 09/10/2023 21:15 ALEX POWELL [facility] Sep 10, 2023 09:00 PM NURSING EMERGENCY DEPT NOTE: LOCAL TITLE: EMERGENCY DEPT NURSING NOTE STANDARD TITLE: NURSING EMERGENCY DEPT NOTE DATE OF NOTE: SEP 10, 2023@21:00 ENTRY DATE: SEP 11, 2023@06:30:40 AUTHOR: BAYRON BROWN EXP COSIGNER: URGENCY: STATUS: COMPLETED Nursing Focused Assessment: [...] Mentation Oriented to: Person, Place, Time, Location Cy Coma Scale: Date and Time Preformed: Aug@06:31 [...] BROWN RN Signed: 09/11/2023 06:34 BAYRON BROWN [facility] Sep 10, 2023 07:57 PM PHYSICIAN EMERGENC Y DEPT NOTE: LOCAL TITLE: EMERGENCY DEPT NOTE STANDARD TITLE: PHYSICIAN EMERGENCY DEPT NOTE DATE OF NOTE: SEP 10, 2023@19:57 ENTRY DATE: SEP 10, 2023@19:57:14 AUTHOR: ALEX POWELL COSIGNER: URGENCY: STATUS: COMPLETED EMERGENCY DEPT NOTE [...] 09/10/2023 20:05 Receipt Acknowledged By: 09/12/2023 14:40 /es/ TALI MARCUM REGISTERED NURSE for FELIX GAVIRIA 09/11/2023 07:57 /es/ EMIR GRACIA DNP,AC,PETRONA 09/10/2023 ADDENDUM STATUS: COMPLETED Patient feeling significantly improved after IV fluids and pain medication. Will provide 1 more liter of fluid and p.o. challenge. Patient is comfortable with discharge following. Will follow up with primary care physician. Return precautions provided in discharge instructions and discussed directly with patient. /lilia/ ALEX POWELL Physician Signed: 09/10/2023 21:15 ALEX POWELL [facility] Sep 10, 2023 07:16 PM NURSING EMERGENCY [...] Medications Current Problems: Cancer cervix screening status ([facility] 2438Chronic idiopathic urticaria ([facility] [id number]) Family social history ([facility] [id number]) Generalized anxiety disorder ([facility] [id number]) Major depressive disorder ([facility] [id number] of post-traumatic stress disorder ([facility] [id number]) Hyperlipidemia ([facility] [id number]) Dysfunction of sphincter of Oddi ([facility] [id number]) Posttraumatic stress disorder ([facility] 41901Cv significant change since previous mammogram ([facility] [id number]) Identification of Seniors at Risk (ISAR):* Defer screen age 43 Suicide Screen: [place] Suicide Severity Rating Scale (C-SSRS) screener 1. [...] this within the past 3 months? No /lilia/ ZARIA SOLIS RN REGISTERED NURSE Signed: 09/10/2023 19:20 ZARIA SOLIS [facility]
--- OUTSIDE RECORDS SUMMARY | 2024-05-04 07:50 | XMS_ITS | Encounter Summary ---
Author Name [facility] [place] Address [address] [place] [address] Care Team Providers Care Leacher Name Role Phone EMIR GRACIA Primary Care Provider Unavailabl e Selected Encounter This section includes the information on record at [place] for the Encounter. Date/Time Encounter Type Encounter Description Reason Pro vider Source Aug 12, 2023 09:00 AM Outpatient Encounter PAIN CLINIC I[facility] Encounter Template Text not used by [place] Plan of Treatment: Future Appointments (+ 6 months) and Future Tests (+/- 45 days) The Plan of Treatment section includes future care activities for the patient from all [place] treatmentfacilities. This section includes future appointments and future orders which are active, pending or scheduled. Future Appointments This section includes appointments that were scheduled to occur 6 months from the date of the Encounter, up to a maximum of 20 appointments. The data comes from all [place] treatment facilities. Appointment Date/Time Appointment Type Appointme nt Facility Name Aug 20, 2023 01:00 PM AMBULATORY - PSYCHIATRY KAV[facility] NO[facility] Aug 27, 2023 11:30 AM AMBULATORY - REHAB MEDICIN E [facility] Sep 03, 2023 02:00 PM AMBULATORY - PSYCHIATRY [facility] Sep 10, 2023 07:12 PM AMBULATORY - MEDICINE [place] Sep 19, 2023 12:50 PM [facility] Oct 01, 2023 01:00 PM [facility] Oct 08, 2023 01:00 PM [facility] Oct 22, 2023 01:00 PM [facility] Nov 05, 2023 01:00 PM [facility] November 19, 2023 03:00 PM [facility] November 28, 2023 01:00 PM [facility] December 01, 2023 02:15 PM [facility] December 04, 2023 09:00 AM [facility] December 05, 2023 01:20 PM AMBULATORY - REHAB MEDICIN [facility] December 05, 2023 02:45 PM AMBULATORY - MEDICINE [facility] December 16, 2023 02:00 PM [facility] Dec 21, 2023 04:08 PM [facility] Dec 29, 2023 11:30 AM [facility] Dec 30, 2023 10:30 AM [facility] Dec 30, 2023 01:00 PM [facility] Lab Results: +/- 30 days of the encounter This section includes the Chemistry and Hematology Lab Results on record with [place] for the patient. Radiology Reports and Pathology Reports are provided separately, in subsequent sections. Lab Results This section contains the Chemistry/Hematology Results that were resulted 30 days before or 30 daysafter the date of the Encounter. Date/Time Source Result Type Result - Unit Interpretation Reference Range Comment Sep 10, 2023 07:34 PM [facility] EXTRA MINT TUBE Specimen Type: PLASMA No comment entered. Ordering Provider: WILMAR POWELL Report Released Date/Time: Sep 10, 2023 07:55 PM Reporting Lab: [facility] [id number] Performing Lab: [facility] [phone] EXTRA MINT TUBE RECEIVED Sep 10, 2023 07:34 PM [facility] LIPASE Specimen Type: PLASMA No comment entered. Ordering Provider: WILMAR POWELL Report Released Date/Time: Sep 10, 2023 07:49 PM Reporting Lab: [facility] [id number] Performing Lab: [facility] [id number] LIPASE 68 U/L H <60 Sep 10, 2023 07:34 PM [facility] HCG,QUANTITATIVE Specimen Type: SERUM No comment entered. Ordering Provider: WILMAR POWELL Report Released Date/Time: Sep 10, 2023 07:49 PM Reporting Lab: [facility] [id number] Performing Lab: [facility] [id number] HCG,QUANTITATIV E <2.42 m[IU]/mL <4.99 Sep 10, 2023 07:34 PM [facility] EXTRA BLUE TUBE Specimen Type: PLASMA No comment entered. Ordering Provider: WILMAR POWELL Report Released Date/Time: Sep 10, 2023 07:55 PM Reporting Lab: [facility] [id number] Performing Lab: [facility] [id number] EXTRA BLUE TUBE RECEIVED Sep 10, 2023 07:34 PM [facility] COMPREHENSIVE METABOLIC PANEL+MG Specimen Type: PLASMA No comment entered. Ordering Provider: WILMAR POWELL Report Released Date/Time: Sep 10, 2023 07:49 PM Reporting Lab: [facility] [phone] Performing Lab: [facility] [phone] CREATININE 1.0 mg/dL 0.5-1.0 UREA NITROGEN 13 [...] 72 >60 Sep 10, 2023 07:34 PM [facility] CBC & DIFF Specimen Type: BLOOD Comment: Automated Differential Performed Ordering Provider: WILMAR POWELL Report Released Date/Time: Sep 10, 2023 07:49 PM Reporting Lab: [facility] [phone] Performing Lab: [facility] [phone] WBC 7.45 10*3/uL 4.0-11.0 RBC 4.80 10*6/uL [...] 0.3 ABS IMMATURE GRAN 0.02 10*3/uL 0-0.1 Advance Directives: All historical and current Section Date Range: From patient's date of to the date document was created. This section includes ALL of a patient's completed or amended [place] Advance and Rescinded Directives. The entries below indicate that a directive exists for the patient, but an actual copy is not included with this document. The data comes from all [place] facilities. Date Advance Directives Provider Source Jan 05, 2024 ADVANCE DIRECTIVE DISCUSSION SHAHID HURTADO [facility]
--- OUTSIDE RECORDS SUMMARY | 2024-05-04 07:50 | XMS_ITS | Encounter Summary ---
Author Name [facility] [place] Address [address] [place] [address] Care Team Providers Care Pearl Peller Name Role Phone EMIR GRACIA Primary Care Provider Unavailabl e Selected Encounter This section includes the information on record at [place] for the Encounter. Date/Time Encounter Type Encounter Description Reason Pro vider Source Jun 04, 2023 02:30 PM OFFICE O/P EST HI 40-54 MIN GASTROENTEROLOGY ICD-10-CM R10.9 Unspecified abdominal pain FRANK CHARLES IHLorie Encounter Template Text not used by [place] Assessments - Encounter Diagnoses This section includes the primary and secondary diagnoses documented for the Encounter. Date/Time Primary/Secondary Diagnosis Diagnosis Name Provider Source Jun 24, 2023 12:05 PM PRIMARY Unspecified abdominal pain Allen RONQUILLO [facility] Plan of Treatment: Future Appointments (+ 6 months) and Future Tests (+/- 45 days) The Plan of Treatment section includes future care activities for the patient from all [place] treatmentfacilities. This section includes future appointments and future orders which are active, pending or scheduled. Future Appointments This section includes appointments that were scheduled to occur 6 months from the date of the Encounter, up to a maximum of 20 appointments. The data comes from all [place] treatment facilities. Appointment Date/Time Appointment Type Appointme nt Facility Name Jun 05, 2023 02:00 PM AMB[facility]ATORY [facility] Jun 09, 2023 02:00 PM [facility] Jun 17, 2023 07:45 AM AMBULATORY - SURGERY [facility] Jul 01, 2023 01:00 PM [facility] Jul 02, 2023 02:00 PM AMBULATORY - REHAB MEDICIN E [facility] Jul 08, 2023 01:00 PM [facility] Jul 16, 2023 01:00 PM AMBULATORY - REHAB MEDICIN E [facility] Jul 22, 2023 11:00 AM [facility] Jul 24, 2023 08:45 AM AMBULATORY - SURGERY [facility] Jul 24, 2023 10:00 AM AMBULATORY - PSYCHIATRY [facility] Jul 29, 2023 11:00 AM [facility] Jul 31, 2023 10:00 AM AMBULATORY - PS[facility]CHIATRY [facility] Aug 01, 2023 01:00 PM AMBULATORY - REHAB MEDICIN E [facility] Aug 06, 2023 01:00 PM [facility] Aug 20, 2023 01:00 PM [facility] Aug 27, 2023 11:30 AM AMBULATORY - REHAB MEDICIN [facility] Sep 03, 2023 02:00 PM AMB[facility] Sep 10, 2023 07:12 PM AMBULATORY - MEDICINE [facility] Sep 19, 2023 12:50 PM AMBULATORY - NONE [facility] Oct 01, 2023 01:00 PM [facility] Vital Signs: All taken on the encounter date This section contains inpatient and outpatient Vital Signs collected on the date of the Encounter. Date/Time Temperature Pulse Blood Pressure Respiratory Rate SP02 Pain Height Weight Body Mass Index Source Jun 04, 2023 02:34 PM 127/91 mm[Hg] [facility] Jun 04, 2023 02:31 PM 97.8 F 72 /min 139/92 mm[Hg] 17 /min 100 % 2 198.9 lb 31 [facility] Advance Directives: All historical and current Section Date Range: From patient's date of to the date document was created. This section includes ALL of a patient's completed or amended [place] Advance and Rescinded Directives. The entries below indicate that a directive exists for the patient, but an actual copy is not included with this document. The data comes from all [place] facilities. Date Advance Directives Provider Source Jan 05, 2024 ADVANCE DIRECTIVE DISCUSSION BOBBY HURTADOInder ARINA Melo [facility] Encounter Notes: All associated encounter notes This [...] as per GI recommendation. /lilia/ EMIR GRACIA DNP,PERSONAL TRAINER,ARDMS Signed: 06/05/2023 11:30 Receipt Acknowledged By: 06/05/2023 12:39 /lilia/ FELIX GAVIRIA RN, CWOCN PACT RN --- [...] pain clinic which is now transferred to [place]. Current literature has been unclear regarding true [...] Discussed with Dr. Charles and Dr. Garcia. Nelson Ronquillo MD GI fellow [phone] -- HPI: 42 yo F with chronic [...] - 05/2005 recurrent severe pain. Transferred to [place] and was admitted 05/25- 06/03/2005 with acute [...] -Pancreas parenchymal changes without chronic pancreatitis. /es/ Nelson Ronquillo GI fellow Signed: 06/04/2023 18:53 06/04/2023 ADDENDUM STATUS: COMPLETED Her last triglyceride has been 347. Has been on atorvastatin 20 mg daily. Would like to alert PCP for considering increase dose to prevent future acute pancreatitis. Thanks so much. /es/ Nelson Ronquillo GI fellow Signed: 06/04/2023 18:55 Receipt Acknowledged By: 06/05/2023 11:23 /lilia/ EMIR GRACIA DNP, APRN, ARDMS 06/05/2023 ADDENDUM STATUS: COMPLETED RN left voicemail for about new medications and requested a call back to further discuss GI recommendations. /es/ FELIX GAVIRIA RN, CWOCN PACT RN Signed: 06/05/2023 12:33 EMIR GRACIA [facility] Jun 04, 2023 06:53 PM ADDENDUM: LOCAL TITLE: Addendum STANDARD TITLE: ADDENDUM DATE OF NOTE: JUN 04, 2023@18:53:32 ENTRY DATE: JUN 04, 2023@18:53:33 AUTHOR: NELSON RONQUILLO COSIGNER: URGENCY: STATUS: COMPLETED Her last triglyceride has been 347. Has been on atorvastatin 20 mg daily. Would like to alert PCP for considering increase dose to prevent future acute pancreatitis. Thanks so much. /lilia/ Nelson Ronquillo GI fellow Signed: 06/04/2023 18:55 Receipt Acknowledged By: 06/05/2023 11:23 /lilia/ EMIR GRACIA DNP, APRN,ARCAROLINAS --- Original Document --- 06/04/23 GASTROENTEROLOGY CONSULT: [...] pain clinic which is now transferred [place]. Current literature has been unclear regarding true [...] Discussed with Dr. Charles and Dr. Garcia. Nelson Ronquillo MD GI fellow [phone] -- HPI: 42 yo F with chronic [...] - 05/2005 recurrent severe pain. Transferred to [place] and was admitted 05/25- 06/03/2005 with acute [...] parenchymal changes without chronic pancreatitis. /lilia/ Nelson Ronquillo GI fellow Signed: 06/04/2023 18:53 06/05/2023 ADDENDUM STATUS: COMPLETED Please update patient that I have increased her statin dose and added omega-3C for her elevated triglycerides to prevent pancreatitis as per GI recommendation. /lilia/ EMIR GRACIA DNP,PERSONAL TRAINER,ARDMS Signed: 06/05/2023 11:30 Receipt Acknowledged By: * AWAITING SIGNATURE * FELIX BARTLETT NICHA [facility] Jun 04, 2023 06:32 PM GASTROENTEROLOGY CONSULT: LOCAL TITLE: GASTROENTEROLOGY CONSULT STANDARD TITLE: GASTROENTEROLOGY CONSULT DATE OF NOTE: JUN 04, 2023@18:32 ENTRY DATE: JUN 04, 2023@18:32:44 AUTHOR: NELSON RONQUILLO EXP COSIGNER: URGENCY: STATUS: COMPLETED GASTROENTEROLOGY CONSULT [...] pain clinic which is now transferred to [place]. Current literature has been unclear regarding true [...] Discussed with Dr. Charles and Dr. Garcia. Nelson Ronquillo MD GI fellow [phone] -- HPI: 42 yo F with chronic [...] - 05/2005 recurrent severe pain. Transferred to [place] and was admitted 05/25- 06/03/2005 with acute [...] Temo Pires (now retired), no hospitalization since 2016 until 01/2022 with pain. Reported elevated liver [...] hypotension immediately but now resolved. Pain about /10. Taking ibuprofen 200 mg BID and 500 [...] parenchymal changes without chronic pancreatitis. /lilia/ Nelson Ronquillo GI fellow Signed: 06/04/2023 18:53 06/04/2023 ADDENDUM STATUS: COMPLETED Her last triglyceride has been 347. Has been on atorvastatin 20 mg daily. Would like to alert PCP for considering increase dose to prevent future acute pancreatitis. Thanks so much. /sandra Ronquillo GI fellow Signed: 06/04/2023 18:55 Receipt Acknowledged By: 06/05/2023 11:23 /lilia/ EMIR GRACIA DNP, APRN, ARDMS 06/05/2023 ADDENDUM STATUS: COMPLETED Please update patient that I have increased her statin dose and added omega-3C for her elevated triglycerides to prevent pancreatitis as per GI recommendation. /sandra GRACIA DNP, APRN,PETRONA Signed: 06/05/2023 11:30 Receipt Acknowledged By: 06/05/2023 12:39 /lilia/ FELIX GAVIRIA RN, PAULA PACT RN 06/05/2023 ADDENDUM STATUS: COMPLETED RN left voicemail for about new medications and requested a call back to further discuss GI recommendations. /sandra GAVIRIA RN, PAULA PACT RN Signed: 06/05/2023 12:33 NELSON RONQUILLO [facility] Jun 04, 2023 02:32 PM INTERNAL MEDICINE OUTPATIENT NOTE: LOCAL TITLE: MEDICINE CLINIC NURSING NOTE STANDARD TITLE: INTERNAL MEDICINE OUTPATIENT NOTE DATE OF NOTE: JUN 04, 2023@14:32 ENTRY DATE: JUN 04, 2023@14:32:20 AUTHOR: LAURY,KERRI EXP COSIGNER: URGENCY: STATUS: COMPLETED TYPE OF [...] SCHAEFFER LPN Signed: 06/04/2023 14:34 KERRI SCHAEFFER [facility]
--- OUTSIDE RECORDS SUMMARY | 2024-05-04 07:50 | XMS_ITS | Encounter Summary ---
Author Name [facility] [place] Organization [place] Address [address] [place] [address] Care Team Providers Care Sheep Sticker Name Role Phone EMIR GRACIA Primary Care [...] Lorie Encounter Template Text not used by [place] Assessments - Encounter Diagnoses This section includes the primary and secondary diagnoses documented for the Encounter. Date/Time Primary/Secondary Diagnosis Diagnosis Name Provider Source Jun 17, 2023 08:20 AM PRIMARY Encntr for exam of ears and hearing w oth abnormal findings KALEN CASTELLANOS [facility] Jun 17, 2023 08:20 AM SECONDARY Sensorineural hearing loss, bilateral KALEN CASTELLANOS [facility] Plan of Treatment: Future Appointments (+ [...] The data comes from all [place] treatment [facility]. Appointment Date/Time Appointment Type Appointme nt Facility Name Jul 01, 2023 01:00 PM AMBULATORY [facility] Jul 02, 2023 02:00 PM AMBULATORY - REHAB MEDICIN E [facility] Jul 08, 2023 01:00 PM [facility] Jul 16, 2023 01:00 PM AMBULATORY - REHAB MEDICIN E [facility] Jul 22, 2023 11:00 AM [facility] Jul 24, 2023 08:45 AM [facility] Jul 24, 2023 10:00 AM [facility] Jul 29, 2023 11:00 AM AMB[facility]AT[facility]AT[facility] Jul 31, 2023 10:00 AM AMBULATORY - PS[facility]CHIATRY [facility] Aug 01, 2023 01:00 PM AMBULATORY - REHAB MEDICIN E [facility] Aug 06, 2023 01:00 PM [facility] Aug 20, 2023 01:00 PM [facility] Aug 27, 2023 11:30 AM AMBULATORY - REHAB MEDICIN E [facility] Sep 03, 2023 02:00 PM [facility] Sep 10, 2023 07:12 PM [facility] Sep 19, [facility]23 12:50 [facility] Oct 01, 2023 01:00 PM AM[facility]AT[facility] Oct 08, 2023 01:00 PM AMBUL[facility] Oct 22, 2023 01:00 PM AMBULATORY - [facility]ATRY [facility] Nov 05, 2023 01:00 PM AMBULATORY [facility]ATRY [facility] Advance Directives: All historical and current Section Date Range: From patient's date of to the date document was created. This section includes ALL of a patient's completed or amended [place] Advance and Rescinded Directives. The entries below indicate that a directive exists for the patient, but an actual copy is not included with this document. The data comes from all [facility]. Date Advance Directives Provider Source Jan 05, 2024 ADVANCE DIRECTIVE DISCUSSION SHAHID HURTADO [facility] Encounter Notes: All associated encounter notes [...] Hearing - Sensorineural Hearing Loss, Bilateral HISTORY: was seen today for a hearing evaluation. 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 Hearing was last evaluated in April 2013 and seems to have worsened. 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 Friends, family, and co-workers has also noticed her hearing difficulties. She notes infrequent tinnitus. 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 [place] Denied: - Aural fullness - Otalgia - Otorrhea - Vertigo/Dizziness/Imbalance - Otosurgery PROCEDURES: RESULTS AVAILABLE VIA AUDIOGRAM DISPLAY IN CPRS TOOLS MENU OR CÜR DATABASE OTOSCOPY: Ear canals free of excessive cerumen, tympanic membranes visible. COMPREHENSIVE HEARING EVALUATION: Pure Tone Audiometry, Speech Flight Attendant Threshold, & Word Recognition Testing Transducer: Insert earphones & bone oscillator Reliability: Good PURE TONE AUDIOMETRY: RIGHT EAR: Normal hearing acuity at 250-8000 Hz LEFT EAR: Normal hearing acuity at 250-[address] SPECIALIST THRESHOLD: Spondees RIGHT EAR: 15 dB HL LEFT EAR: 15 dB HL Speech Flight Attendant Thresholds are consistent with pure tone thresholds. [...] conditions, consistent with audiometric findings. EDUCATION: - [place] counseled on results of today's hearing evaluation. - counseled on effective communication strategies. - counseled on hearing protection in noise. 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 - Follow up if a change in hearing is noted or as medically indicated. PATIENT IS IN AGREEMENT WITH THIS PLAN. Test Lead Application Testing: Please HOLD aids in clinic until follow up appointment. /es/ [facility] MA[facility] Signed: 06/17/2023 09:18 GRETCHEN CASTELLANOS [facility]
--- OUTSIDE RECORDS SUMMARY | 2024-05-04 07:50 | XMS_ITS | Encounter Summary ---
Author Name [facility] [place] Organization [facility] [place] [place] Address [address] [place] [address] Care Team Providers Care Head Paper Tester Name Role Phone EMIR GRACIA Primary Care Provider Unavailabl e Selected Encounter This section includes the information on record at [place] for the Encounter. Date/Time Encounter Type Encounter Description Reason Provider Source May 27, 2023 01:40 PM FLUOROGUIDE FOR SPINE INJECT PAIN CLINIC ICD-10-CM G89.29 Other chronic pain DELROY BOUDREAUX Lorie Encounter Template Text not used by [place] Assessments - Encounter Diagnoses This section includes the primary and secondary diagnoses documented for the Encounter. Date/Time Primary/Secondary Diagnosis Diagnosis Name Provider Source May 27, 2023 02:32 PM PRIMARY Other chronic pain VALERIE FRAGOSO [facility] Plan of Treatment: Future Appointments (+ 6 [...] 04, 2023 02:30 PM AMBULATORY - MEDICINE [facility] Jun 05, 2023 02:00 PM AMBULATORY - PSYCHIATRY [facility] Jun 09, 2023 02:00 PM AMBULATORY - PS[facility]CHIATRY [facility] Jun 17, 2023 07:45 AM AMBULATORY - SURGERY [facility] Jul 01, 2023 01:00 PM AMBULATORY - PS[facility]CHIATRY [facility] Jul 02, 2023 02:00 PM AMBULATORY - REHAB MEDICIN E [facility] Jul 08, 2023 01:00 PM AMBULATORY - PS[facility]CHIATRY [facility] Jul 16, 2023 01:00 PM AMBULATORY - REHAB MEDICIN E [facility] Jul 22, 2023 11:00 AM AMBULATORY - PS[facility]CHIATRY [facility] Jul 24, 2023 08:45 AM AMBULATORY - SURGERY [facility] Jul 24, 2023 10:00 AM AMBULATORY - PSYCHIATRY [facility] Jul 29, 2023 11:00 AM AMBULATORY - PS[facility]CHIATRY [facility] Jul 31, 2023 10:00 AM AMBULATORY - PSYCHIATRY [facility] Aug 01, 2023 01:00 PM AMBULATORY - REHAB MEDICIN E [facility] Aug 06, 2023 01:00 PM AMBULATORY - PS[facility]CHIATRY [facility] Aug 20, 2023 01:00 PM AMBULATORY - PS[facility]CHIATRY [facility] Aug 27, 2023 11:30 AM AMBULATORY - REHAB MEDICIN E [facility] Sep 03, 2023 02:00 PM AMBULATORY - PS[facility]CHIATRY [facility] Sep 10, 2023 07:12 PM AMBULATORY - MEDICINE [facility] Vital Signs: All taken on the encounter date This section contains inpatient and outpatient Vital Signs collected on the date of the Encounter. Date/Time Temperature Pulse Blood Pressure Respiratory Rate SP02 Pain Height Weight Body Mass Index Source May 27, 2023 02:45 PM 91 /min 135/80 mm[Hg] [place] [facility] May 27, 2023 02:33 PM 90 /min 126/83 mm[Hg] [facility] May 27, 2023 02:31 PM 80 /min 119/76 mm[Hg] [place] [facility] May 27, 2023 02:28 PM 83 /min 117/72 mm[Hg] [place] [facility] May 27, 2023 02:26 PM 85 /min 94/63 mm[Hg] [facility] Advance Directives: All historical and current Section Date Range: From patient's date of to the date document was created. This section includes ALL of a patient's completed or amended [place] Advance and Rescinded Directives. The entries below indicate that a directive exists for the patient, but an actual copy is not included with this document. The data comes from all [place] facilities. Date Advance Directives Provider Source Jan 05, 2024 ADVANCE DIRECTIVE DISCUSSION SHAHID HURTADO [facility] Encounter Notes: All associated [...] used for this procedure. /lilia/ Feliciano ELAINE(R) ORDER DEPARTMENT SUPERVISOR Signed: 05/27/2023 13:48 NEGRITO CERNA [facility] May 27, 2023 01:40 PM PAIN CONSULT: [...] up with their PCP team and our rn case manager hospice RN (Norma Carpio) by phone. Patient may [...] as needed. 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 Patient is prepped and draped in sterile fashion, per Maye/Jamshid. Patient is continually assessed for comfort and [...] including the contact phone numbers for the [facility] and the Pain Clinic Procedure Nurse Coordinator for questions and concerns was provided. Patient verbalized understanding. Patient discharged via Ambulatory at 1502. /illia/ LOYDA PATEL R.N RN Signed: 05/27/2023 15:[address] [facility]
--- OUTSIDE RECORDS SUMMARY | 2024-05-04 07:50 | XMS_ITS | Encounter Summary ---
Author Name [facility] [place] Organization [place] Address [address] [place] [address] Care Team Providers Care Stoner Out Name Role Phone EMIR GRACIA Primary Care Provider Unavailabl e Selected Encounter This section includes the information on record at [place] for the Encounter. Date/Time Encounter Type Encounter Description Reason Provider Source May 09, 2023 08:00 AM OFFICE O/P NEW MOD 45-59 MIN PAIN CLINIC ICD-10-CM K86.1 Other chronic pancreatitis KARY BOUDREAUX Lorie Encounter Template Text not used by [place] Assessments - Encounter Diagnoses This section includes the primary and secondary diagnoses documented for the Encounter. Date/Time Primary/Secondary Diagnosis Diagnosis Name Provider Source May 12, 2023 07:17 AM PRIMARY Other chronic pancreatitis KARY BOUDREAUX [facility] Plan of Treatment: Future Appointments (+ 6 months) and Future Tests (+/- 45 days) The Plan of Treatment section includes future care activities for the patient from all [place] treatmentfacilities. This section includes future appointments and future orders which are active, pending or scheduled. Future Appointments This section includes appointments that were scheduled to occur 6 months from the date of the Encounter, up to a maximum of 20 appointments. The data comes from all [place] treatment facilities. Appointment Date/Time Appointment Type Appointme nt Facility Name May 14, 2023 01:00 PM AMBULATORY - PS[facility]CHIATRY [facility] May 22, 2023 08:00 AM AMBULATORY - PS[facility]CHIATRY [facility] May 27, 2023 01:40 PM AMBULATORY - REHAB MEDICIN E [facility] May 29, 2023 11:00 AM AMBULATORY - PSYCHIATRY [facility] Jun 04, 2023 02:30 PM AMBULATORY - MEDICINE [facility] Jun 05, 2023 02:00 PM AMBULATORY - PS[facility]CHIATRY [facility] Jun 09, 2023 02:00 PM AMBULATORY - PS[facility]CHIATRY [facility] Jun 17, 2023 07:45 AM AMBULATORY - SURGERY [facility] Jul 01, 2023 01:00 PM AMBULATORY - PS[facility]CHIATRY [facility] Jul 02, 2023 02:00 PM AMBULATORY - REHAB MEDICIN [facility] Jul 08, 2023 01:00 PM AMBULATORY - PS[facility]CHIATRY [facility] Jul 16, 2023 01:00 PM AMBULATORY - REHAB MEDICIN [facility] Jul 22, 2023 11:00 AM AMBULATORY - PSYCHIATRY [facility] Jul 24, 2023 08:45 AM AMBULATORY - SURGERY [facility] Jul 24, 2023 10:00 AM AMBULATORY - PSYCHIATRY [facility] Jul 29, 2023 11:00 AM AMBULATORY - PS[facility]CHIATRY [facility] Jul 31, 2023 10:00 AM AMBULATORY - PSYCHIATRY [facility] Aug 01, 2023 01:00 PM AMBULATORY - REHAB MEDICIN [facility] Aug 06, 2023 01:00 PM AMBULATORY - [...] /min 130/87 mm[Hg] 16 /min 95 % [facility] Advance Directives: All historical and current Section Date Range: From patient's date of to the date document was created. This section includes ALL of a patient's completed or amended [place] Advance and Rescinded Directives. The entries below indicate that a directive exists for the patient, but an actual copy is not included with this document. The data comes from all [place] facilities. Date Advance Directives Provider Source Jan 05, 2024 ADVANCE DIRECTIVE DISCUSSION SHAHID HURTADO [facility] Encounter Notes: All associated encounter notes This section contains the clinical notes associated to the Encounter. Date/Time Encounter Note(s) Provider Source May 26, 2023 10:49 AM PAIN NOTE: LOCAL TITLE: DATA-BASED OPIOID RISK REVIEW STANDARD TITLE: PAIN NOTE DATE OF NOTE: MAY 26, 2023@10:49 ENTRY DATE: MAY 26, 2023@10:50:13 AUTHOR: BETZY BOUDREAUX EXP COSIGNER: URGENCY: STATUS: COMPLETED Indication(s) for opioid use: Acute pain, opioid therapy possibly beyond 5 days Reason: Prolonged taper following ERCP Opioid trial for chronic pain POINT OF CARE OPIOID RISK REVIEW [place]'s risk of adverse events and STORM data (clinical factors that increase risk for the ) were reviewed and discussed. Patient was noted as low risk. Madison has a prior history of or current mental health disorder. Current ongoing treatment: Depression, follows with MH Plans for risk mitigation strategies and use of universal precautions (i.e. UDS, GLASS SAGGER checks) were discussed. 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 THERAPY (opioids only) No consent found PRESCRIPTION DRUG MONITORING PROGRAM (PDMP) (frequency of PDMP checks should be done in compliance with most restrictive guidance considering provider licensure, state and local/[facility] policy) PDMP has been completed Last PDMP Note Resolution: Last done - 05/12/2023@07:16:47 Computed Finding: [facility]-Progress Note 05/12/2023@07:16:47 value - STATE PRESCRIPTION DRUG MONITORING PROGRAM; Author: BETZY BOUDREAUX LAST URINE DRUG SCREEN (Per local policy, minimum of annual) No UDS data found NALOXONE PRESCRIPTION (if Naloxone order is present and current and [place] has Naloxone currently no action is necessary. [...] within 30 days has been entered. /lilia/ BETZY BOUDREAUX MD PAIN MEDICINE PHYSICIAN Signed: 05/26/2023 10:54 BETZY BOUDREAUX [facility] May 14, 2023 01:03 PM ADDENDUM: LOCAL TITLE: Addendum STANDARD TITLE: ADDENDUM DATE OF NOTE: MAY 14, 2023@13:03:50 ENTRY DATE: MAY 14, 2023@13:03:51 AUTHOR: BETZY BOUDREAUX EXP COSIGNER: URGENCY: STATUS: COMPLETED I have seen and evaluated the patient with the resident physician as noted above. Briefly, the patient is a 42 year old female [place] who presents for evaluation of chronic abdominal [...] or for the management of pain flares Betzy Boudreaux MD Pain Medicine /es/ BETZY BOUDREAUX MD PAIN MEDICINE PHYSICIAN Signed: 05/14/2023 13:34 Receipt Acknowledged By: 05/22/2023 12:57 /es/ DAVID THOMAS, RN, BSN REGISTERED NURSE for DAVID MENDOZA [...] low appetite are limiting. 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 With the [place] she has an appt with Gastroenterology in [...] Opioid analgesic medications. 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 No TOBACCO [...] and management as she transitons to the [place] system. 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 Pain currently well managed with p.o. 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 Previous Treatments trialed: Acupuncture: No Chiropractic: Yes, [...] 12:12 Receipt Acknowledged By: 05/14/2023 13:03 /lilia/ BETZY BOUDREAUX MD PAIN MEDICINE PHYSICIAN BETZY BOUDREAUX [facility] May 12, 2023 07:16 AM ACCOUNTING OF DISCLOSURES NOTE: LOCAL TITLE: STATE PRESCRIPTION DRUG MONITORING PROGRAM STANDARD TITLE: ACCOUNTING OF DISCLOSURES NOTE DATE OF NOTE: MAY 12, 2023@07:16:47 ENTRY DATE: MAY 12, 2023@07:16:47 AUTHOR: BETZY BOUDREAUX EXP COSIGNER: URGENCY: STATUS: COMPLETED This PDMP query was submitted by Betzy Boudreaux. The clinical justification for this PDMP query is to review controlled substances prescribed outside of the [place], and any additional information that may become available, as an important component of standard clinical care, and in accordance with [facility] policy. Patient information was shared with the PDMP [employer]. Prescription(s) filled outside the [facility] in the last 90 days are noted. However, they do not raise significant safety concerns and do not influence the treatment plan at this time. Acute Rx x3 s/p ERCP as noted in 05/09 evaluation /lilia/ BETZY BOUDREAUX MD PAIN MEDICINE PHYSICIAN Signed: 05/12/2023 07:17 BETZY BOUDREAUX [facility] May 09, 2023 11:47 AM PHYSICAL MEDICINE REHAB CONSULT: LOCAL TITLE: PAIN CENTER CONSULT STANDARD TITLE: PHYSICAL MEDICINE REHAB CONSULT DATE OF NOTE: MAY 09, 2023@11:47 ENTRY DATE: MAY 09, 2023@11:47:45 AUTHOR: SAMINA ARMSTRONG EXP COSIGNER: URGENCY: STATUS: COMPLETED PAIN CENTER CONSULT [...] low appetite are limiting. 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 With the [place] she has an appt with Gastroenterology in [...] Opioid analgesic medications. 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 No TOBACCO [...] is good IMAGING No pertinent imaging ASSESSMENT: [facility] is a 42 year old female with a PMHx of allergies and idiopathic urticaria/ anaphylactic reactions, sphincter motor dysfunction s/p cholecystectomy and multiple ERCPs (extension of PD and CBD sphincterotomies and placement of pancreatic duct stent 04/30/2023), followed [place] in the past, dx 2015. 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 Previous Treatments trialed: Acupuncture: No Chiropractic: Yes, [...] 12:12 Receipt Acknowledged By: 05/14/2023 13:03 /lilia/ BETZY BOUDREAUX MD PAIN MEDICINE PHYSICIAN 05/14/2023 ADDENDUM [...] or for the management of pain flares Betzy Boudreaux MD Pain Medicine /lilia/ BETZY BOUDREAUX MD PAIN MEDICINE PHYSICIAN Signed: 05/14/2023 13:34 Receipt Acknowledged By: * AWAITING SIGNATURE * [facility] May 09, 2023 08:05 AM PHYSICAL MEDICINE REHAB NURSING NOTE: LOCAL TITLE: REHAB MEDICINE CLINIC NURSING NOTE STANDARD TITLE: PHYSICAL MEDICINE REHAB NURSING NOTE DATE OF NOTE: MAY 09, 2023@08:05 ENTRY DATE: MAY 09, 2023@08:05:56 AUTHOR: MU CAGLE EXP COSIGNER: URGENCY: STATUS: COMPLETED C-SSRS Screening [place] Suicide Severity Rating Scale (C-SSRS) screener 1. [...] LPN LPN Signed: 05/09/2023 08:12 MU CAGLE [facility]
--- OUTSIDE RECORDS SUMMARY | 2024-05-04 07:50 | XMS_ITS | Encounter Summary ---
Author Name [facility] [place] Organization [facility] [place] Address [address] [place] [address] Care Team Providers Care Attending Ambulatory Care Name Role Phone EMIR GRACIA Primary Care Provider Unavailabl e Selected Encounter This section includes the information on record at [place] for the Encounter. Date/Time Encounter Type Encounter Description Reason Provider Source December 05, 2023 01:20 PM FLUOROGUIDE FOR SPINE INJECT PAIN CLINIC ICD-10-CM R10.9 Unspecified abdominal pain EMIR GRACIA IHLorie Encounter Template Text not used by [place] Assessments - Encounter Diagnoses This section includes the primary and secondary diagnoses documented for the Encounter. Date/Time Primary/Secondary Diagnosis Diagnosis Name Provider Source December 05, 2023 04:39 PM PRIMARY Unspecified abdominal pain VALERIE BREEN [facility] Plan of Treatment: Future Appointments (+ 6 months) and Future Tests (+/- 45 days) The Plan of Treatment section includes future care activities for the patient from all [place] treatmentfacilities. This section includes future appointments and future orders which are active, pending or scheduled. Future Appointments This section includes appointments that were scheduled to occur 6 months from the date of the Encounter, up to a maximum of 20 appointments. The data comes from all [place] treatment facilities. Appointment Date/Time Appointment Type Appointme nt Facility Name December 16, 2023 02:00 PM AMBULATORY - PSYCHIATRY SH MICHAELOPELorie [facility] Dec 21, 2023 04:08 PM AMBUL[place]ORY [place]IC[place] [facility] Dec 29, 2023 11:30 AM [place] [facility] Dec 30, 2023 10:30 AM AMBULATORY - MEDICINE LEEANN RAWLS [facility] Dec 30, 2023 01:00 PM AMBULATORY - PSYCHIATRY SH AKOPELorie [facility] Jan 04, 2024 02:00 PM AM[facility]ORY [place]ONE [place] [facility] Jan 05, 2024 08:45 AM AMB[place] [facility] Jan 05, 2024 10:00 AM AMBUL[place] [facility] Jan 05, 2024 11:00 AM [facility] Jan 05, 2024 12:00 PM [place] [place] [facility] Jan 05, 2024 12:30 PM [place] [facility] Jan 05, 2024 02:30 PM [facility] Jan 06, 2024 08:45 AM [facility] Jan 06, 2024 10:00 AM [facility] Jan 06, 2024 11:00 AM [facility] Jan 08, 2024 08:45 AM [facility] Jan 08, 2024 10:00 AM [facility] Jan 08, 2024 11:00 AM [facility] Jan 09, 2024 08:45 AM [facility] Jan 09, 2024 10:00 AM [facility] Active, Pending, and Scheduled Orders This section includes a listing of several types of active, pending, and scheduled orders, including clinic medications orders, diagnostic test orders, procedure orders and consult orders; where the start date of the order is 45 days before the date of the Encounter or 45 days after the date of theEncounter. The data comes from all [place] treatment facilities. Test Date/Time Test Type Test Details Facility Name November 19, 2023 12:00 AM Laboratory - Chemi stry Order ELASTASE-1,PANC STL STOOL FECES SP ONCE [facility] November 19, 2023 12:00 AM Laboratory - Chemi stry Order IGA PLASMA SP ONCE [facility] November 19, 2023 12:00 AM Laboratory - Chemi stry Order TTG AB,IGA SERUM SP ONCE [facility] November 19, 2023 12:00 AM Laboratory - Microbiology Order OVA & PARASITES FECAL FECES SP ONCE [facility] November 19, 2023 12:00 AM Laboratory - Chemi stry Order ENTERIC PATHOGEN PCR PANEL STOOL FECES SP ONCE [facility] December 05, 2023 02:27 PM Laboratory - Chemi stry Order BLOOD GAS PANEL FOR ICU ARTERIAL BLOOD STAT WC [facility] December 12, 2023 03:21 PM Laboratory - Chemi stry Order CALPROTECTIN,STOOL STOOL FECES SP ONCE [facility] Dec 21, 2023 04:56 PM Laboratory - Chemi stry Order SALICYLATE SERUM STAT SP [facility] Lab Results: +/- 30 days of the encounter This section includes the Chemistry and Hematology Lab Results on record with [place] for the patient. Radiology Reports and Pathology Reports are provided separately, in subsequent sections. Lab Results This section contains the Chemistry/Hematology Results that were resulted 30 days before or 30 daysafter the date of the Encounter. Date/Time Source Result Type Result - Unit Interpretation Reference Range Comment Dec 22, 2023 06:44 AM [facility] HEMOGLOBIN A1C Specimen Type: BLOOD Comment: Values obtained from A1C measurements can vary. For typical A1C assays, a reported value of 7.0 could actually be between 6.7 and 7.3 if measured by a reference method. A reported value of 9.0 could actually be between 8.7 and 9.3. Ref: http://www. sp.org/CAPdat a.asp Ordering Provider: Celeste DUKES Report Released Date/Time: Dec 21, 2023 08:58 PM Reporting Lab: [facility] [phone] Performing Lab: [facility] [phone] HEMOGLOBIN A1C 4.9 4.0-6.0 Dec 22, 2023 06:44 AM [facility] B 12 Specimen Type: SERUM No comment entered. Ordering Provider: Celeste DUKES Report Released Date/Time: Dec 21, 2023 08:58 PM Reporting Lab: [facility] [phone] Performing Lab: [facility] [phone] B 12 381 pg/mL 213-816 Dec 22, 2023 06:44 AM [facility] VIT D 25-OH,TOTAL Specimen Type: SERUM No comment entered. Ordering Provider: Celeste DUKES Report Released Date/Time: Dec 21, 2023 08:58 PM Reporting Lab: [facility] [phone] Performing Lab: [facility] [phone] VIT D 25-OH,TOTAL 29 ng/mL 12-50 Dec 22, 2023 06:44 AM [facility] FOLATE Specimen Type: PLASMA No comment entered. Ordering Provider: Celeste DUKES Report Released Date/Time: Dec 21, 2023 08:58 PM Reporting Lab: [facility] [phone] Performing Lab: [facility] [phone] FOLATE 7.1 ng/mL >7.0 Dec 22, 2023 06:44 AM [facility] TSH W/REFLEX TO FREE T4 Specimen Type: PLASMA No comment entered. Ordering Provider: Celeste DUKES Report Released Date/Time: Dec 21, 2023 08:58 PM Reporting Lab: [facility] [phone] Performing Lab: [facility] [address] TSH 0.36 u[IU]/mL 0.35-4.94 Dec 22, 2023 06:44 AM [facility] LIPID PANEL,FASTING Specimen Type: PLASMA No comment entered. Ordering Provider: Celeste DUKES Report Released Date/Time: Dec 21, 2023 08:58 PM Reporting Lab: [facility] [phone] Performing Lab: [facility] [phone] CHOLESTEROL 170 mg/dL <199 TRIGLYCERIDE 151 mg/dL H <149 .HDL 34 mg/dL L >50 LDL CALCULATION 106 mg/dL H <99 VLDL CALCULATION 30 mg/dL H <29 NON HDL CHOLESTEROL 136 mg/dL H <129 Dec 21, 2023 09:33 PM [facility] DRUG SCREEN PANEL,URINE Specimen Type: URINE Comment: Presumptive Positive by screen, results not confirmed. Ordering Provider: MONIQUE VÁSQUEZ Report Released Date/Time: Dec 21, 2023 04:56 PM Reporting Lab: [facility] [phone] Performing Lab: [facility] [phone] BARBITURATES Negative Negative AMPHETAMINES Negative Negative COCAINE Negative Negative BENZODIAZEPINES Negative Negative CANNABINOIDS POSITIVE H Negative METHADONE Negative Negative OPIATES Negative Negative PHENCYCLIDINE Negative Negative ETHANOL,URINE Negative Negative DRUG SCREEN CREAT 325.9 mg/dL >20.0 OXYCODONE Negative Negative BUPRENORPHINE Negative Negative TRAMADOL Negative Negative FENTANYL Negative Negative Dec 21, 2023 05:30 PM [facility] ETHANOL Specimen Type: PLASMA No comment entered. Ordering Provider: MONIQUE VÁSQUEZ Report Released Date/Time: Dec 21, 2023 04:56 PM Reporting Lab: [facility] [phone] Performing Lab: [facility] [phone] ETHANOL Negative mg/dL NEGATIVE Dec 21, 2023 05:30 PM [facility] COMPREHENSIVE METABOLIC PANEL+MG Specimen Type: PLASMA No comment entered. Ordering Provider: MONIQUE VÁSQUEZ Report Released Date/Time: Dec 21, 2023 04:56 PM Reporting Lab: [facility] [phone] Performing Lab: [facility] [phone] CREATININE 1.0 mg/dL 0.5-1.0 UREA NITROGEN 9 mg/dL 7-20 GLUCOSE 120 mg/dL H 70-100 SODIUM 140 mmol/L 136-145 POTASSIUM 3.5 mmol/L 3.5-5.1 CHLORIDE 108 mmol/L H 98-107 CO2 23 mmol/L 22-29 CALCIUM 9.5 mg/dL 8.4-10.2 PROTEIN,TOTAL 6.8 g/dL 6.0-8.3 ALBUMIN 4.1 g/dL 3.5-5.2 BILIRUBIN, TOTAL 0.8 mg/dL 0.2-1.2 MAGNESIUM 2.0 mg/dL 1.6-2.6 ANION GAP 9 mmol/L 5-15 ALKALINE PHOSPHATASE 54 U/L 40-150 ALT/SGPT 20 U/L <55 AST/SGOT 16 U/L <34 .CREAT EGFR(CKD-EPI) 71 >60 Dec 21, 2023 05:30 PM [facility] CBC & DIFF Specimen Type: BLOOD Comment: Automated Differential Performed Ordering Provider: MONIQUE VÁSQUEZ Report Released Date/Time: Dec 21, 2023 04:56 PM Reporting Lab: [facility] [phone] Performing Lab: [facility] [phone] WBC 9.50 10*3/uL 4.0-11.0 RBC 4.69 10*6/uL 4.0-5.4 HGB 13.2 g/dL 11.5-16 HCT 38.2 34.5-48 MCV 81.4 fL 80-100 MCH 28.1 pg 27-33 MCHC 34.6 g/dL 32.0-37.5 PLT 374 10*3/uL 150-400 MPV 9.2 fL 7.4-10.4 NEUT 72.8 40.0-80.0 LYMPHS 19.4 15.0-45.0 MONO 6.1 2.0-12.0 EOSINO 0.7 0.0-6.0 BASO 0.7 0.0-2.0 RDW 12.5 11.5-14.5 ABS LYMPH 1.84 10*3/uL 1.0-4.0 ABS MONO 0.58 10*3/uL 0.1-1.0 ABS NEUT 6.91 10*3/uL 2.0-7.7 ABS EOS 0.07 10*3/uL 0-0.5 ABS BASO 0.07 10*3/uL 0-0.2 IG(META,MYELO,MS O) 0.3 ABS IMMATURE GRAN 0.03 10*3/uL 0-0.1 December 05, 2023 02:20 PM [facility] EXTRA RED TUBE Specimen Type: SERUM No comment entered. Ordering Provider: NELSON RONQUILLO Report Released Date/Time: December 05, 2023 02:39 PM Reporting Lab: [facility] [phone] Performing Lab: [facility] [phone] EXTRA RED TUBE RECEIVED December 05, 2023 02:20 PM [facility] LACTIC ACID Specimen Type: PLASMA No comment entered. Ordering Provider: NELSON RONQUILLO Report Released Date/Time: December 05, 2023 02:27 PM Reporting Lab: [facility] [phone] Performing Lab: [facility] [phone] LACTIC ACID 1.7 mmol/L 0.5-2.2 December 05, 2023 02:20 PM [facility] CODE BLUE(LYTE,CR,UN,GL,MG,CA,PHOS,TROP) Specimen Type: PLASMA No comment entered. Ordering Provider: NELSON RONQUILLO Report Released Date/Time: December 05, 2023 02:27 PM Reporting Lab: [facility] [phone] Performing Lab: [facility] [phone] CREATININE 1.1 mg/dL H 0.5-1.0 UREA NITROGEN 10 mg/dL 7-20 GLUCOSE 101 mg/dL H 70-100 SODIUM 138 mmol/L 136-145 POTASSIUM 3.8 mmol/L 3.5-5.1 CHLORIDE 107 mmol/L 98-107 CO2 22 mmol/L 22-29 CALCIUM 9.3 mg/dL 8.4-10.2 PHOSPHORUS 3.5 mg/dL 2.3-4.7 MAGNESIUM 1.9 mg/dL 1.6-2.6 ANION GAP 9 mmol/L 5-15 .CREAT EGFR(CKD-EPI) 64 >60 TROPONIN I, HS <3 <14 December 05, 2023 02:20 PM [facility] EXTRA GOLD GEL TUBE Specimen Type: SERUM No comment entered. Ordering Provider: NELSON RONQUILLO Report Released Date/Time: December 05, 2023 02:39 PM Reporting Lab: [facility] [phone] Performing Lab: [facility] [phone] EXTRA GOLD GEL TUBE RECEIVED December 05, 2023 02:20 PM [facility] CBC Specimen Type: BLOOD No comment entered. Ordering Provider: NELSON RONQUILLO Report Released Date/Time: December 05, 2023 02:27 PM Reporting Lab: [facility] [phone] Performing Lab: [facility] [phone] WBC 11.50 10*3/uL H 4.0-11.0 RBC 4.83 10*6/uL 4.0-5.4 HGB 13.6 g/dL 11.5-16 HCT 39.8 34.5-48 MCV 82.4 fL 80-100 MCH 28.2 pg 27-33 MCHC 34.2 g/dL 32.0-37.5 PLT 443 10*3/uL H 150-400 MPV 9.1 fL 7.4-10.4 RDW 12.5 11.5-14.5 December 05, 2023 02:20 PM [facility] PROTHROMBIN TIME/INR Specimen Type: PLASMA No comment entered. Ordering Provider: NELSON RONQUILLO Report Released Date/Time: December 05, 2023 02:27 PM Reporting Lab: [facility] [phone] Performing Lab: [facility] [phone] .INR 1.2 H 0.8-1.1 .PT 13.5 s H 9.4-12.5 December 05, 2023 02:18 PM [facility] POC ABG/ELECTROLYTES Specimen Type: VENOUS BLOOD Comment: FIO2 = 40% Patient Temp: 36.6 C Sample Type = VENOUS Ordering Provider: ULYSSES ELDER Report Released Date/Time: December 06, 2023 08:24 PM Reporting Lab: [facility] [phone] Performing Lab: [facility] [address] POC PH 7.382 7.31-7.41 POC PCO2 35.0 mm[Hg] L 41.00-51 .0 0 POC PO2 36 mm[Hg] 35.0-40.0 POC TCO2 22 mmol/L L 24.0-29.0 POC HCO3 20.8 mmol/L L 23.0-28.0 POC BE ECT -4 mmol/L L -2-3 POC SO2 68 L 70-75 POC SODIUM 138 mmol/L 138.0-14 6. 0 POC POTASSIUM 4.0 mmol/L 3.50-4.90 POC HGB 14.3 g/dL 12.00-17.0 0 POC HCT 42 38.0-51.0 POC IONIZED CALCIUM 4.9 mg/dL 4.50-5.30 POC PH AT PAT TEMP 7.388 7.31-7.41 POC PCO2 AT PAT TEMP 34.4 mm[Hg] L 41.00-51.0 0 POC PO2 AT PAT TEMP 35 mm[Hg] 35.0-40.0 Vital Signs: All taken on the encounter date This section contains inpatient and outpatient Vital Signs collected on the date of the Encounter. Date/Time Temperature Pulse Blood Pressure Respiratory Rate SP02 Pain Height Weight Body Mass Index Source December 05, 2023 03:21 PM 98.3 70 155/[address] [facility] December 05, 2023 02:45 PM 84 143/[address] [facility] December 05, 2023 02:44 PM 130 170/[address] [facility] December 05, 2023 02:19 PM 102 178/[address] [facility] December 05, 2023 02:15 PM 61 149/84 [facility] Advance Directives: All historical and current Section Date Range: From patient's date of to the date document was created. This section includes ALL of a patient's completed or amended [place] Advance and Rescinded Directives. The entries below indicate that a directive exists for the patient, but an actual copy is not included with this document. The data comes from all [place] facilities. Date Advance Directives Provider Source Jan 05, 2024 ADVANCE DIRECTIVE DISCUSSION SHAHID HURTADO [facility] Encounter Notes: All associated encounter notes [...] PHYSICIAN 12/09/2023 14:50 /sandra HEIN RN, BSN --- Original Document --- [...] ADDENDUM STATUS: COMPLETED Wilda made contact with [place]. She stated she is feeling well, no [...] not VIEW this UNSIGNED Addendum. BETZY BOUDREAUX [facility] December 09, 2023 01:00 PM ADDENDUM: LOCAL TITLE: Addendum STANDARD TITLE: ADDENDUM DATE OF NOTE: DECEMBER 09, 2023@13:00:08 ENTRY DATE: DECEMBER 09, 2023@13:00:09 AUTHOR: ARMANI HEIN EXP COSIGNER: URGENCY: STATUS: COMPLETED Wilda made contact with [place]. She stated she is feeling well, no [...] not VIEW this UNSIGNED Addendum. ARMANI HEIN [facility] 2023 11:54 AM REPORT OF CONTACT: [...] ADDENDUM STATUS: COMPLETED Wilda made contact with [place]. She stated she is feeling well, no [...] RIZWAN SANTOS MD STAFF PHYSICIAN 12/09/2023 14:50 /sandra HEIN RN, BSN 12/09/2023 ADDENDUM STATUS: COMPLETED Attempted to reach [place] to relay Dr. Boudreaux' s message, no answer. Left VM stating she can repeat procedure in 12 weeks. Left our call back number and requested she call back if she wishes to discuss plan for care for next procedure or when she is ready to schedule repeat. /lilia/ ARMANI HEIN RN, BSN Signed: 12/09/2023 14:54 RIZWAN SANTOS [facility] December 05, 2023 03:01 PM NURSING INPATIENT NOTE: LOCAL TITLE: [facility] NURSING PROGRESS NOTE STANDARD TITLE: NURSING INPATIENT NOTE DATE OF NOTE: DECEMBER 05, 2023@15:01 ENTRY DATE: DECEMBER 05, 2023@15:01:58 AUTHOR: CARLOS PEREZ EXP COSIGNER: URGENCY: STATUS: COMPLETED [facility] NURSING PROGRESS NOTE Has ADDENDA -- Rapid Response Note (TIMBER PACKER) -- TIMBER PACKER Team Note Triggers called for: New neurological [...] shut as a side effect of procedure. TIMBER PACKER concern was primarily for airway protection and secretion management. Situation resolved spontaneously after a few minutes. Transfer to ED for supportive care. SO at bedside. Disposition: Emergency Department /sandra PEREZ RN REGISTERED NURSE Signed: 12/05/2023 15:11 [...] /es/ KATERINE TREJO Resident Signed: 12/05/2023 15:38 CARLOS PEREZ [facility] December 05, 2023 02:36 PM NURSING NOTE: LOCAL TITLE: [facility] NSG IV INSERTION AND MAINTENANCE STANDARD TITLE: NURSING NOTE DATE OF NOTE: DECEMBER 05, 2023@14:36 ENTRY DATE: DECEMBER 05, 2023@14:36:57 AUTHOR: REJI MORENO EXP COSIGNER: URGENCY: STATUS: COMPLETED Version 2.2 Charting in accordance with [place] APPROVED [place] STANDARD (MAAES) ACUTE INPATIENT/REHABILITATION NURSING ADMISSION SCREENING, ASSESSMENT, AND STANDARDS OF CARE IV Line Insertion and Maintenance Peripheral IV Line #1: Insertion: Date/Time: November@14:20 Inserted by (name): grant writer Insertion Aid: Ultrasound guided Location: Left, Antecubital Gauge: 18 Assessment: Location: Gauge: Dressing Condition: Clean, dry, intact Site Condition: No redness, swelling, pain Line Status: Capped Flushed Positive blood return /lilia/ REJI MORENO LPN Signed: 12/05/2023 14:38 REJI MORENO [facility] December 05, 2023 01:46 PM PAIN CONSULT: LOCAL TITLE: IMAGING REQUEST CONSULT STANDARD TITLE: PAIN CONSULT DATE OF NOTE: DECEMBER 05, 2023@13:46 ENTRY DATE: DECEMBER 05, 2023@13:46:57 AUTHOR: ENGRITO CERNA EXP COSIGNER: URGENCY: STATUS: COMPLETED Images were taken to facilitate procedure carried out by medical provider. <5mL. of OmniPaque 180 was used for this procedure. /lilia/ Feliciano ELAINE(R) PENS AND PENCILS REPAIRER Signed: 12/05/2023 13:47 NEGRITO CERNA [facility] December 05, 2023 01:40 PM PAIN PROCEDURE NOT E: LOCAL TITLE: PAIN INTERVENTIONAL PROCEDURE NOTE STANDARD TITLE: PAIN PROCEDURE NOTE DATE OF NOTE: DECEMBER 05, 2023@13:40 ENTRY DATE: DECEMBER 05, 2023@06:58:08 AUTHOR: MATT BREEN COSIGNER: URGENCY: STATUS: COMPLETED PAIN INTERVENTIONAL PROCEDURE [...] up with their PCP team and our case planner RN (Norma Carpio) by phone. Patient may [...] BOUDREAUX MD PAIN MEDICINE PHYSICIAN 2023 08:24 /es/ RIZWAN SANTOS MD STAFF PHYSICIAN 2023 ADDENDUM [...] symptomatic for early stages of LAST, the Mystic's muscle rigidity is not. 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 Medications reviewed: Yes [...] medications noted; Medications held per protocol Allergies: [place] has allergy concerns related to pain procedure: No Allergy to: Temperature: 98.2 F [36.8 C] (12/05/2023 12:55) Pulse: 73 (12/05/2023 12:55) Pulse Oximetry: 100% (12/05/2023 12:55) Respirations: 16 (12/05/2023 12:55) Blood Pressure: 137/88 (12/05/2023 12:55) Pain: 4 (12/05/2023 12:55) PT____ INR - NONE FOUND No data available No data available Mystic takes blood thinning medications: Denies ASA/ASA containing [...] completed: Not Applicable Checklist Comment: Procedure started: 0 Procedure ended: Staff Physician: Sha Medical Fellow: Jamshid RN: Fran Transfer Clerk: Rusty/Helio Nursing observations: Patient assisted to position Prone [...] to ED. She was transfered in wheelchair. /lilia/ ARMANI HEIN RN, BSN Signed: 12/05/2023 15:10 ARMANI HEIN [facility]
--- OUTSIDE RECORDS SUMMARY | 2024-05-04 07:50 | XMS_ITS | Encounter Summary ---
Author Name [facility] [place] [place] Organization [place] Address [address] [place] [address] Care Team Providers Care Communications Administrator Name Role Phone EMIR GRACIA Primary Care [...] PM PRIMARY Other chronic pancreatitis EMIR GRACIA [facility] Plan of Treatment: Future Appointments (+ [...] 08:00 AM AMBULATORY - REHAB MEDICIN E [facility] May 09, 2023 11:00 AM [facility] May 14, 2023 01:00 PM AMB[facility] May 22, 2023 08:00 AM [facility] May 27, 2023 01:40 PM AMBULATORY - REHAB MEDICIN [facility] May 29, 2023 11:00 AM [facility] Jun 04, 2023 02:30 PM AMBULATORY - MEDICINE [facility] Jun 05, 2023 02:00 PM AMB[facility] Jun 09, 2023 02:00 PM AMB[facility] Jun 17, 2023 07:45 AM AMBULATORY - SURGERY [facility] Jul 01, 2023 01:00 PM AMBUL[facility] Jul 02, 2023 02:00 PM AMBULATORY - REHAB MEDICIN [facility] Jul 08, 2023 01:00 PM AMBUL[facility]ORY [facility] Jul 16, 2023 01:00 PM AMBULATORY - REHAB MEDICIN [facility] Jul 22, 2023 11:00 AM AM[facility] Jul 24, 2023 08:45 AM AMBULATORY - SURGERY [facility] Jul 24, 2023 10:00 AM AMBULATORY - PSYCHIATRY [facility] Jul 29, 2023 11:00 AM AM[facility] Jul 31, 2023 10:00 AM AMBULATORY - PS[facility]CHIATRY [facility] Aug 01, 2023 01:00 PM AMBULATORY - REHAB MEDICIN E [facility] Social History: Smoking Status (Most current) and Tobacco Use (All prior to encounter date) This section includes the most current, and the historical, smoking and tobacco- related health factors from the [place] facility where the Encounter took place. Current Smoking Status This section includes the most current smoking, or tobacco-related health factor, from the [place] facility where the Encounter took place. Date/Time Current Smoking Status Loretta pitts Mar 27, 2023 09:00 AM VA-TOBACCO FORMER USER [facility] Tobacco Use History This section includes a history of the smoking, or tobacco-related health factors, that were collected on or before the date of the Encounter. The data comes from the [place] facility where the Encounter took place. Date/Time Smoking Status/Tobacco Use Comment F acility Mar 27, 2023 09:00 AM VA-TOBACCO QUIT 5 TO < 15 YRS [facility] Advance Directives: All historical and current Section Date Range: From patient's date of to the date document was created. This section includes ALL of a patient's completed or amended [place] Advance and Rescinded Directives. The entries below indicate that a directive exists for the patient, but an actual copy is not included with this document. The data comes from all [facility]. Date Advance Directives Provider Source Jan 05, 2024 ADVANCE DIRECTIVE DISCUSSION SHAHID HURTADO [facility] Encounter Notes: All associated encounter notes This section contains the clinical notes associated to the Encounter. Date/Time Encounter Note(s) Provider Source May 07, 2023 12:54 PM PRIMARY CARE NURSI NG NOTE: LOCAL TITLE: [facility] NURSING PROGRESS NOTE [...] ulcers, or a wound from a medical claims manager or Patient is bed-confined or a wheelchair-user or Patient requires assistance to transfer/change position No, Skin Screen is Negative Home Abuse/Violence Screen Is your home free of abuse and violence? Yes MOVE! Program Screen Body Mass Index (BMI)= 33.2 [place]: Collection DT Specimen Test Name Result Units Ref Range 03/27/2023 10:13 BLOOD !! HEMOGLOBIN A1C 4.8 % 4.0 - 6.0 !! Indicates COMMENTS AVAILABLE...Refer to Interim Lab Report. [facility] Hgb A1C: No data available [place] Hgb A1C: No data available Point of Care Hgb A1C: POC HGB A1C____ No Outpatient Nutrition Screen Body Mass Index (BMI)= 33.2 [place]: Collection DT Specimen Test Name Result Units Ref Range 03/27/2023 10:13 BLOOD !! HEMOGLOBIN A1C 4.8 % 4.0 - 6.0 !! Indicates COMMENTS AVAILABLE...Refer to Interim Lab Report. [facility] Hgb A1C: No data available [place] Hgb A1C: No data available Point of [...] ALONSO LPN Signed: 05/07/2023 12:58 SEBASTIAN ALONSO [facility] May 07, 2023 11:36 AM PRIMARY CARE NOTE: LOCAL TITLE: [facility] PROGRESS NOTE - [facility] STANDARD TITLE: PRIMARY [...] Co-managed care with a non-VA provider. Non-VA- PCP-[facility] Non-VA specialist: [facility] In the process of transferring care to [place]. Chief complaint: An established patient here for ongoing chronic abdominal pain management. History of Present Illness: A 42 year old female with a PMHx of allergies and idiopathic urticaria/ anaphylactic reactions, sphincter motor dysfunction s/p cholecystectomy and multiple ERCPs (extension of PD and CBD sphincterotomies and placement of pancreatic duct stent), followed [facility] in the past, dx 2015. Well controlled, with last flare up 01/2022 (x3 flares of pancreatitis requiring hospitalization in past 1 yr.). Had previously followed up with [facility] since 2005 with the gastroenterology team. Patient has ongoing severe pain recently went to ED and hospitalization due to abdominal pain and sphincter of Oddi motor dysfunction. follows [facility] but would like to transfer all the [facility]. Today she is here to look for guidance on her pain management. 04/28/2023-ERCP procedure done at [facility] and biliary stent placement done. She received some pain medication but her pain is still not well managed, Dilaudid which is effective but only has 1 day worth of supply. Going to the pain clinic on Friday at [facility]. Today she feels okay-pain 5 out of 10. We discussed in detail about her chronic pain and told her that she should reach out to her GI provider for pain pills until she sees pain clinic. Interval History: Procedure: ERCP, Meagan Fraga MD - [facility] Referring MD: Meagan Fraga MD, on 04/28/23- History of SOD: Post ERCP with extension of PD and CBD sphincterotomies and placement of pancreatic duct stent. Upper EUS-04/28/23 Impressions/Post-Op Diagnosis: -Pancreas parenchymal changes without chronic pancreatitis. . 09/05/22 Procedure: Stress Echo, for exertional dyspnea Cardiac [...] illness- follows Non VA - [facility] - dr. Patricia 3. 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 Generalized anxiety disorder 5. Major depressive disorder 6. History of post-traumatic stress disorder - team at [facility] 7. Hyperlipidemia - On statin 8. sphincter motor dysfunction - cholecystectomy and multiple ERCPs, followed [facility] in the past, dx- 2015 9. Posttraumatic stress disorder 10. No [...] FACILITY ALLERGY/ADR -------- CLNCL/HLTH MISBAH REPT EFF [id number] [facility] MIRALAX [facility] PFIZER COVID-19 VACCINE (EUA) Active [...] affect Assessment/Plan: 1. sphincter motor dysfunction -Reviewed [facility] notes, she will reach out to [...] found in this chart. /lilia/ EMIR GRACIA DNP,MARKETING SUMMER INTERN,ARDMS Signed: 05/09/2023 15:26 EMIR GRACIA [facility]
--- OUTSIDE RECORDS SUMMARY | 2024-05-04 07:50 | XMS_ITS | Encounter Summary ---
Author Name Department of Vetera Affairs [place]) Organization [place] Address [address] [place] [address] Care Team Providers Care Parking Attendant Name Role Phone EMIR GRACIA Primary Care Provider Unavailabl e Selected Encounter This section includes the information on record at [place] for the Encounter. Date/Time Encounter Type Encounter Description Reason Pro vider Source Jul 31, 2023 10:00 AM Outpatient Encounter [facility] Encounter Template Text not used by [place] Plan of Treatment: Future Appointments (+ 6 months) and Future Tests (+/- 45 days) The Plan of Treatment section includes future care activities for the patient from all [place] treatmentfacilities. This section includes future appointments and future orders which are active, pending or scheduled. Future Appointments This section includes appointments that were scheduled to occur 6 months from the date of the Encounter, up to a maximum of 20 appointments. The data comes from all [place] treatment facilities. Appointment Date/Time Appointment Type Appointme nt Facility Name Aug 01, 2023 01:00 PM AMBULATORY - REHAB MEDICIN [facility] Aug 06, 2023 01:00 PM AMBULATORY - PS[facility]CHIATRY [facility] Aug 20, 2023 01:00 PM AMBULATORY - [facility]ATRY [facility] Aug 27, 2023 11:30 AM AMBULATORY - REHAB MEDICIN E [facility] Sep 03, 2023 02:00 PM AMB[facility]ATORY [facility]ATRY [facility] Sep 10, 2023 07:12 PM AMBULATORY - MEDICINE [facility] Sep 19, 2023 12:50 PM AMBULATORY - NONE [facility] Oct 01, 2023 01:00 PM AMBULATORY - PS[facility]IATRY [facility] Oct 08, 2023 01:00 PM AMBULATORY - [facility]RY [facility] Oct 22, 2023 01:00 PM AMBULATORY - [facility] Nov 05, 2023 01:00 PM AMBULAT[facility] November 19, 2023 03:00 PM [facility] November 28, 2023 01:00 PM AMBULATORY - PS[facility]CHIATRY [facility] December 01, 2023 02:15 PM AMBULATORY - NONE [facility] December 04, 2023 09:00 AM AMBULATORY - [facility] December 05, 2023 01:20 PM AMBULATORY - REHAB MEDICIN E [facility] December 05, 2023 02:45 PM AMBULATORY - MEDICINE [facility] December 16, 2023 02:00 PM AMBULATORY - PS[facility]IATRY [facility] Dec 21, 2023 04:08 PM AMBULATORY - MEDICINE [facility] Dec 29, 2023 11:30 AM AMBULATORY - PSYCHIATRY [facility] Advance Directives: All historical and current Section Date Range: From patient's date of to the date document was created. This section includes ALL of a patient's completed or amended [place] Advance and Rescinded Directives. The entries below indicate that a directive exists for the patient, but an actual copy is not included with this document. The data comes from all [place] facilities. Date Advance Directives Provider Source Jan 05, 2024 ADVANCE DIRECTIVE DISCUSSION SHAHID HURTADO [facility] Encounter Notes: All associated [...] appointment. This is not known to this chief underwriter. Risk assessment taken from MH progress note from FRANCESCA Trevino dated 07/29/23: [...] By: 08/05/2023 09:32 /lilia/ ARACELI ESPINOZA Advanced Broadcast Systems Engineer, [facility] BRYAN MARTINEZ [facility]
--- OUTSIDE RECORDS SUMMARY | 2024-05-04 07:50 | XMS_ITS | Encounter Summary ---
Author Name Department of Vetera Affairs ([place]) Organization Department of Veter[place]) Address [address] [place] [address] Care Team Providers Care Utility Locator Name Role Phone EMIR GRACIA Primary Care Provider Unavailabl e Selected Encounter This section includes the information on record at [place] for the Encounter. Date/Time Encounter Type Encounter Description Reason Pro vider Source Aug 07, 2023 10:00 AM Outpatient Encounter [facility] Encounter Template Text not used by MD Plan of Treatment: Future Appointments (+ 6 [...] PM AMBULATORY - PS[facility]CHIATRY [facility] Aug 27, 2023 11:30 AM AMBULATORY - REHAB MEDICIN [facility] Sep 03, 2023 02:00 PM AMBULATORY - PS[facility]CHIATRY [facility] Sep 10, 2023 07:12 PM [facility] Sep 19, 2023 12:50 PM AMBULATORY - NONE [facility] Oct 01, 2023 01:00 PM AMB[facility]ORY [facility]IAT[facility] Oct 08, 2023 01:00 PM AMBULATORY [facility]ATRY [facility] Oct 22, 2023 01:00 PM AMBULATORY - [facility]IATRY [facility] Nov 05, 2023 01:00 PM AMBULATORY - [facility]ATRY [facility] November 19, 2023 03:00 PM AMBULATORY - MEDICINE [facility] November 28, 2023 01:00 PM AMBULATORY [facility] PS[facility]CHIATRY [facility] December 01, 2023 02:15 PM [facility] December 04, 2023 09:00 AM AMBULATORY - [facility]IATRY [facility] December 05, 2023 01:20 PM AMBULATORY - REHAB MEDICIN [facility] December 05, 2023 02:45 PM AMBULATORY - MEDICINE [facility] December 16, 2023 02:00 PM AMBULATORY - PS[facility]IATRY [facility] Dec 21, 2023 04:08 PM AMBULATORY - MEDICINE [facility] Dec 29, 2023 11:30 AM [facility] Dec 30, 2023 10:30 AM [facility] Dec 30, 2023 01:00 PM AMBUL[facility] - [facility]IATRY [facility] Advance Directives: All historical and current Section Date Range: From patient's date of to the date document was created. This section includes ALL of a patient's completed or amended [place] Advance and Rescinded Directives. The entries below indicate that a directive exists for the patient, but an actual copy is not included with this document. The data comes from all [place] facilities. Date Advance Directives Provider Source Jan 05, 2024 ADVANCE DIRECTIVE DISCUSSION SHAHID HURTADO [facility] Encounter Notes: All associated encounter notes This section contains the clinical notes associated to the Encounter. Date/Time Encounter Note(s) Provider Source Aug 07, 2023 12:01 PM NO SHOW NOTE: LOCAL TITLE: NO SHOW/CANCELLATION CLINIC NOTE STANDARD TITLE: NO SHOW NOTE DATE OF NOTE: AUG 07, 2023@12:01 ENTRY DATE: AUG 07, 2023@12:01:06 AUTHOR: BRYAN MARTINEZ COSIGNER: URGENCY: STATUS: COMPLETED not seen for scheduled appointment due to: cancelled See note by Frances MA dated 08/06/23, unable to attend remaining balancing groups due to scheduling conflict. Appointment Rescheduled: No Please review patient chart and medications for renewal needs (if appropriate). MSA - please cancel all remaining balancing groups. /lilia/ BRYAN MARTINEZ,PhD, STAFF PSYCHOLOGIST Signed: 08/07/2023 12:02 Receipt Acknowledged By: 08/08/2023 08:38 /lilia/ ARACELI ESPINOZA Advanced Wood Barker, BRYAN NIEVES [facility]
--- OUTSIDE RECORDS SUMMARY | 2024-05-04 07:50 | XMS_ITS | Encounter Summary ---
Author Name [facility] [place] Address [address] [place] [address] Care Team Providers Care Relays Draftsperson Name Role Phone EMIR GRACIA Primary Care Provider Unavailabl e Selected Encounter This section includes the information on record at [place] for the Encounter. Date/Time Encounter Type Encounter Description Reason Provider Source December 05, 2023 02:45 PM EMERGENCY DEPT VISIT [facility] EMERGENCY DEPT ICD-10-CM G89.4 Chronic pain syndrome CESARIO JACKSON Lorie Encounter Template Text not used by [place] Assessments - Encounter Diagnoses This section includes the primary and secondary diagnoses documented for the Encounter. Date/Time Primary/Secondary Diagnosis Diagnosis Name Provider Source December 05, 2023 04:36 PM PRIMARY Chronic pain syndrome CESARIO JACKSON [facility] Plan of Treatment: Future Appointments (+ 6 months) and Future Tests (+/- 45 days) The Plan of Treatment section includes future care activities for the patient from all [place] treatmentfacilities. This section includes future appointments and future orders which are active, pending or scheduled. Future Appointments This section includes appointments that were scheduled to occur 6 months from the date of the Encounter, up to a maximum of 20 appointments. The data comes from all [place] treatment facilities. Appointment Date/Time Appointment Type Appointme nt Facility Name December 16, 2023 02:00 PM AMBULATORY - PSYCHIATRY KAVIN RASHEED [facility] Dec 21, 2023 04:08 PM [place]ORY [place] [facility] Dec 29, 2023 11:30 AM AMBUL[place]ORY [place] [facility] Dec 30, 2023 10:30 AM AMBULATORY - MEDICINE LEEANN RAWLS [facility] Dec 30, 2023 01:00 PM AMBULATORY - PSYCHIATRY SH WILI [facility] Jan 04, 2024 02:00 PM AMBULATORY - NONE [place] [facility] Jan 05, 2024 08:45 AM AMBUL[place]ORY [place] [facility] Jan 05, 2024 10:00 AM AMBULATORY [place] [facility] Jan 05, 2024 11:00 AM AM[place]UL[place]ORY [place] [facility] Jan 05, 2024 12:00 PM AMBULATORY [place] [facility] Jan 05, 2024 12:30 PM [place]UL[place]ORY [place] [facility] Jan 05, 2024 02:30 PM AM[place]ORY [place] [facility] Jan 06, 2024 08:45 AM AMBUL[place]ORY [place] [facility] Jan 06, 2024 10:00 AM AM[place]UL[place]ORY [place] [facility] Jan 06, 2024 11:00 AM AMBULATORY [place]RY [place] [facility] Jan 08, 2024 08:45 AM AMBUL[place]ORY [place] [facility] Jan 08, 2024 10:00 AM AMBUL[place]ORY [place] [facility] Jan 08, 2024 11:00 AM AM[place]ORY [place] [facility] Jan 09, 2024 08:45 AM AM[place]UL[place]ORY [place] [facility] Jan 09, 2024 10:00 AM AMBULATORY - [place]ATRY [place] [facility] Active, Pending, and Scheduled Orders This section includes a listing of several types of active, pending, and scheduled orders, including clinic medications orders, diagnostic test orders, procedure orders and consult orders; where the start date of the order is 45 days before the date of the Encounter or 45 days after the date of theEncounter. The data comes from all [place] treatment facilities. Test Date/Time Test Type Test Details Facility Name November 19, 2023 12:00 AM Laboratory - Chemi stry Order ELASTASE-1,PANC STL STOOL FECES SP ONCE [facility] November 19, 2023 12:00 AM Laboratory - Chemi stry Order IGA PLASMA SP ONCE [facility] November 19, 2023 12:00 AM Laboratory - Chemi stry Order TTG AB,IGA SERUM SP ONCE [facility] November 19, 2023 12:00 AM Laboratory - Chemi stry Order ENTERIC PATHOGEN PCR PANEL STOOL FECES SP ONCE [facility] November 19, 2023 12:00 AM Laboratory - Microbiology Order OVA & PARASITES FECAL FECES SP ONCE [facility] December 05, 2023 02:27 PM Laboratory - Chemi stry Order BLOOD GAS PANEL FOR ICU ARTERIAL BLOOD STAT WC [facility] December 12, 2023 03:21 PM Laboratory - Chemi stry Order CALPROTECTIN,STOOL STOOL FECES SP ONCE [facility] Dec 21, 2023 04:56 PM Laboratory - Chemi stry Order SALICYLATE SERUM STAT SP [facility] Lab Results: +/- 30 days of the encounter This section includes the Chemistry and Hematology Lab Results on record with [place] for the patient. Radiology Reports and Pathology Reports are provided separately, in subsequent sections. Lab Results This section contains the Chemistry/Hematology Results that were resulted 30 days before or 30 daysafter the date of the Encounter. Date/Time Source Result Type Result - Unit Interpretation Reference Range Comment Dec 22, 2023 06:44 AM [facility] HEMOGLOBIN A1C Specimen Type: BLOOD Comment: Values [...] Dec 21, 2023 08:58 PM Reporting Lab: [facility] [phone] Performing Lab: [facility] [phone] HEMOGLOBIN A1C 4.9 4.0-6.0 Dec 22, 2023 06:44 AM [facility] B 12 Specimen Type: SERUM No comment entered. Ordering Provider: Celeste DUKES Report Released Date/Time: Dec 21, 2023 08:58 PM Reporting Lab: [facility] [address] Performing Lab: [facility] [address] B 12 381 pg/mL 213-816 Dec 22, 2023 06:44 AM [facility] VIT D 25-OH,TOTAL Specimen Type: SERUM No comment entered. Ordering Provider: Celeste DUKES Report Released Date/Time: Dec 21, 2023 08:58 PM Reporting Lab: [facility] [address] Performing Lab: [facility] [phone] VIT D 25-OH,TOTAL 29 ng/mL 12-50 Dec 22, 2023 06:44 AM [facility] FOLATE Specimen Type: PLASMA No comment entered. Ordering Provider: Celeste DUKES Report Released Date/Time: Dec 21, 2023 08:58 PM Reporting Lab: [facility] [address] Performing Lab: [place] [phone] FOLATE 7.1 ng/mL >7.0 Dec 22, 2023 06:44 AM [facility] TSH W/REFLEX TO FREE T4 Specimen Type: PLASMA No comment entered. Ordering Provider: Celeste DUKES Report Released Date/Time: Dec 21, 2023 08:58 PM Reporting Lab: [facility] [address] Performing Lab: [facility] [address] TSH 0.36 u[IU]/mL 0.35-4.94 Dec 22, 2023 06:44 AM [facility] LIPID PANEL,FASTING Specimen Type: PLASMA No comment entered. Ordering Provider: Celeste DUKES Report Released Date/Time: Dec 21, 2023 08:58 PM Reporting Lab: [facility] [phone] Performing Lab: [facility] [address] CHOLESTEROL 170 mg/dL <199 TRIGLYCERIDE 151 mg/dL H <149 .HDL 34 mg/dL L >50 LDL CALCULATION 106 mg/dL H <99 VLDL CALCULATION 30 mg/dL H <29 NON HDL CHOLESTEROL 136 mg/dL H <129 Dec 21, 2023 09:33 PM [facility] DRUG SCREEN PANEL,URINE Specimen Type: URINE Comment: Presumptive Positive by screen, results not confirmed. Ordering Provider: MONIQUE VÁSQUEZ Report Released Date/Time: Dec 21, 2023 04:56 PM Reporting Lab: [facility] [phone] Performing Lab: [facility] [address] BARBITURATES Negative Negative AMPHETAMINES Negative Negative COCAINE Negative Negative BENZODIAZEPINES Negative Negative CANNABINOIDS POSITIVE H Negative METHADONE Negative Negative OPIATES Negative Negative PHENCYCLIDINE Negative Negative ETHANOL,URINE Negative Negative DRUG SCREEN CREAT 325.9 mg/dL >20.0 OXYCODONE Negative Negative BUPRENORPHINE Negative Negative TRAMADOL Negative Negative FENTANYL Negative Negative Dec 21, 2023 05:30 PM [facility] ETHANOL Specimen Type: PLASMA No comment entered. Ordering Provider: MONIQUE VÁSQUEZ Report Released Date/Time: Dec 21, 2023 04:56 PM Reporting Lab: [facility] [phone] Performing Lab: [facility] [phone] ETHANOL Negative mg/dL NEGATIVE Dec 21, 2023 05:30 PM [facility] COMPREHENSIVE METABOLIC PANEL+MG Specimen Type: PLASMA No comment entered. Ordering Provider: MONIQUE VÁSQUEZ Report Released Date/Time: Dec 21, 2023 04:56 PM Reporting Lab: [facility] [phone] Performing Lab: [facility] [phone] CREATININE 1.0 mg/dL 0.5-1.0 UREA NITROGEN 9 [...] 71 >60 Dec 21, 2023 05:30 PM [facility] CBC & DIFF Specimen Type: BLOOD Comment: Automated Differential Performed Ordering Provider: MONIQUE VÁSQUEZ Report Released Date/Time: Dec 21, 2023 04:56 PM Reporting Lab: [facility] [phone] Performing Lab: [facility] [phone] WBC 9.50 10*3/uL 4.0-11.0 RBC 4.69 10*6/uL [...] 10*3/uL 0-0.5 ABS BASO 0.07 10*3/uL 0-0.2 IG(META,MYELO,WA O) 0.3 ABS IMMATURE GRAN 0.03 10*3/uL 0-0.1 December 05, 2023 02:20 PM [facility] EXTRA RED TUBE Specimen Type: SERUM No comment entered. Ordering Provider: NELSON RONQUILLO Report Released Date/Time: December 05, 2023 02:39 PM Reporting Lab: [facility] [address] Performing Lab: [facility] [phone] EXTRA RED TUBE RECEIVED December 05, 2023 02:20 PM [facility] LACTIC ACID Specimen Type: PLASMA No comment entered. Ordering Provider: NELSON RONQUILLO Report Released Date/Time: December 05, 2023 02:27 PM Reporting Lab: [facility] [address] Performing Lab: [facility] [phone] LACTIC ACID 1.7 mmol/L 0.5-2.2 December 05, 2023 02:20 PM [facility] PROTHROMBIN TIME/INR Specimen Type: PLASMA No comment entered. Ordering Provider: NELSON RONQUILLO Report Released Date/Time: December 05, 2023 02:27 PM Reporting Lab: [facility] [address] Performing Lab: [facility] [phone] .INR 1.2 H 0.8-1.1 .PT 13.5 s H 9.4-12.5 December 05, 2023 02:20 PM [facility] CBC Specimen Type: BLOOD No comment entered. Ordering Provider: NELSON RONQUILLO Report Released Date/Time: December 05, 2023 02:27 PM Reporting Lab: [facility] [address] Performing Lab: [facility] [address] WBC 11.50 10*3/uL H 4.0-11.0 RBC 4.83 10*6/uL 4.0-5.4 HGB 13.6 g/dL 11.5-16 HCT 39.8 34.5-48 MCV 82.4 fL 80-100 MCH 28.2 pg 27-33 MCHC 34.2 g/dL 32.0-37.5 PLT 443 10*3/uL H 150-400 MPV 9.1 fL 7.4-10.4 RDW 12.5 11.5-14.5 December 05, 2023 02:20 PM [facility] CODE BLUE(LYTE,CR,UN,GL,MG,CA,PHOS,TROP) Specimen Type: PLASMA No comment entered. Ordering Provider: NELSON RONQUILLO Report Released Date/Time: December 05, 2023 02:27 PM Reporting Lab: [facility] [phone] Performing Lab: [facility] [address] CREATININE 1.1 mg/dL H 0.5-1.0 UREA NITROGEN 10 mg/dL 7-20 GLUCOSE 101 mg/dL H 70-100 SODIUM 138 mmol/L 136-145 POTASSIUM 3.8 mmol/L 3.5-5.1 CHLORIDE 107 mmol/L 98-107 CO2 22 mmol/L 22-29 CALCIUM 9.3 mg/dL 8.4-10.2 PHOSPHORUS 3.5 mg/dL 2.3-4.7 MAGNESIUM 1.9 mg/dL 1.6-2.6 ANION GAP 9 mmol/L 5-15 .CREAT EGFR(CKD-EPI) 64 >60 TROPONIN I, HS <3 <14 December 05, 2023 02:20 PM [facility] EXTRA GOLD GEL TUBE Specimen Type: SERUM No comment entered. Ordering Provider: NELSON RONQUILLO Report Released Date/Time: December 05, 2023 02:39 PM Reporting Lab: [facility] [address] Performing Lab: [facility] [address] EXTRA GOLD GEL TUBE RECEIVED December 05, 2023 02:18 PM [facility] POC ABG/ELECTROLYTES Specimen Type: VENOUS BLOOD Comment: FIO2 = 40% Patient Temp: 36.6 C Sample Type = VENOUS Ordering Provider: CESARIO JACKSON Report Released Date/Time: December 06, 2023 08:24 PM Reporting Lab: [facility] [address] Performing Lab: [facility] [address] POC PH 7.382 7.31-7.41 POC PCO2 35.0 [...] 03:21 PM 98.3 70 155/86 16 0 [facility] December 05, 2023 02:45 PM 84 143/91 100 [facility] December 05, 2023 02:44 PM 130 170/100 99 [facility] December 05, 2023 02:19 PM 102 178/104 99 [facility] December 05, 2023 02:15 PM 61 149/84 [facility] Advance Directives: All historical and current Section Date Range: From patient's date of to the date document was created. This section includes ALL of a patient's completed or amended [place] Advance and Rescinded Directives. The entries below indicate that a directive exists for the patient, but an actual copy is not included with this document. The data comes from all [place] facilities. Date Advance Directives Provider Source Jan 05, 2024 ADVANCE DIRECTIVE DISCUSSION SHAHID HURTADO [facility] Encounter Notes: All associated encounter notes This section contains the clinical notes associated to the Encounter. Date/Time Encounter Note(s) Provider Source December 05, 2023 04:25 PM EMERGENCY DEPT EDU CATION NOTE: LOCAL TITLE: EMERGENCY DEPT DISCHARGE INSTRUCTIONS STANDARD TITLE: EMERGENCY DEPT EDUCATION NOTE DATE OF NOTE: DECEMBER 05, 2023@16:25:10 ENTRY DATE: DECEMBER 05, 2023@16:25:10 AUTHOR: CESARIO JACKSON COSIGNER: URGENCY: STATUS: COMPLETED DISCHARGE INSTRUCTIONS IMPORTANT: [...] instructions below. You were treated today by Cesario Jackson, . - Special Information - - [...] Care Provider. Future Appointments 12[facility]16[facility]23 [facility] 2[facility]pm [facility] 12/30/[facility]23 at 1:00pm [facility] 01/13/2024 at 2:00pm [facility] - This Information Is About Your Illness [...] GO TO THE NEAREST EMERGENCY ROOM // CESARIO JACKSON Fellow Physician Signed: 12/05/2023 16:25 CESARIO JACKSON [facility] December 05, 2023 03:22 PM NURSING EMERGENCY [...] REGISTERED NURSE Signed: 12/05/2023 15:23 [place] KHOURY [facility] December 05, 2023 03:11 PM NURSING EMERGENCY [...] Medications Current Problems: Cancer cervix screening status ([facility] 6408Chronic idiopathic urticaria ([facility] [id number]) Family social history ([facility] [id number]) Generalized anxiety disorder ([facility] [id number]) Major depressive disorder ([facility] [id number] of post-traumatic stress disorder ([facility] [id number]) Hyperlipidemia ([facility] [id number]) Dysfunction of sphincter of Oddi ([facility] [id number]) Posttraumatic stress disorder ([facility] [id number] significant change since previous mammogram ([facility] [id number]) Identification of Seniors at Risk (ISAR):* Defer screen age Suicide Screen: [place] Suicide Severity Rating Scale (C-SSRS) screener 1. [...] REGISTERED NURSE Signed: 12/05/2023 15:22 [place] KHOURY [facility] December 05, 2023 02:50 PM PHYSICIAN EMERGENC Y DEPT NOTE: LOCAL TITLE: EMERGENCY DEPT NOTE STANDARD TITLE: PHYSICIAN EMERGENCY DEPT NOTE DATE OF NOTE: DECEMBER 05, 2023@14:50 ENTRY DATE: DECEMBER 05, 2023@14:50:31 AUTHOR: CESARIO JACKSON COSIGNER: URGENCY: STATUS: COMPLETED Personal Protective Equipment (PPE): Nurse's note reviewed. Chief Complaint: The patient is a 42 y/o FEMALE complaining of: reaction TDAP/TD Immunizations No data available for: TETANUS TOXOID, ADSORBED TETANUS TOXOID, NOT ADSORBED TETANUS TOXOID, UNSPECIFIED FORMULATION TDAP Covid-19 Immunizations ADMINISTERED Immunization Series Date Facility Reaction Info COVID-19 ([employer]), MRNA, LNP-S, * 1 07/12/2020 [facility] COVID-19 (Discourse), VECTOR-NR, R* 2 12/28/2020 [facility] COVID-19 (Discourse), VECTOR-NR, R* 3 09/01/2021 [facility] COVID-19 (Discourse), VECTOR-NR, R* 4 10/15/2021 [facility]* CONTRAINDICATED [...] illness- follows [facility] - [facility] - dr. Patricia 3. 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 Generalized anxiety disorder 5. Major depressive disorder 6. History of post-traumatic stress disorder - team at [place] [facility] 7. Hyperlipidemia - On statin 8. Dysfunction of sphincter of Oddi (SNOMED CT [id number]) - cholecystectomy and multiple ERCPs, followed [facility] in the past, - 2015 9. Posttraumatic [...] Psych: appropriate affect Labs: Today's Labs: INR 1999: 1.2 H PROTHROMBIN TIME (03/24): 13.5 H [...] risks and benefits of future injections. Disposition: [place] // CESARIO JACKSON Fellow Physician Signed: 12/05/2023 16:26 CESARIO JACKSON [facility]
--- OUTSIDE RECORDS SUMMARY | 2024-05-04 07:50 | XMS_ITS | Encounter Summary ---
Author Name [facility] [place] Address [address] [place] [address] Care Team Providers Care Kids Club Attendant Name Role Phone EMIR GRACIA Primary Care Provider Unavailabl e Selected Encounter This section includes the information on record at [place] for the Encounter. Date/Time Encounter Type Encounter Description Reason Provider Source Jul 24, 2023 08:45 AM [facility] ICD-10-CM Z46.1 Encounter for fitting and adjustment of hearing aid DAVID WALTON Lorie Encounter Template Text not used by [place] Assessments - Encounter Diagnoses This section includes the primary and secondary diagnoses documented for the Encounter. Date/Time Primary/Secondary Diagnosis Diagnosis Name Provider Source Jul 24, 2023 09:28 AM PRIMARY Encounter for fitting and adjustment of hearing aid DAVID WALTON [facility] Jul 24, 2023 09:28 AM SECONDARY Sensorineural hearing loss, bilateral DAVID WALTON [facility] Plan of Treatment: Future Appointments (+ 6 [...] 31, 2023 10:00 AM AMBULATORY - PSYCHIATRY [facility] Aug 01, 2023 01:00 PM AMBULATORY - REHAB [facility] Aug 06, 2023 01:00 PM AMBULATORY - PS[facility]CHIATRY [facility] Aug 20, 2023 01:00 PM AMBULATORY - PS[facility]CHIATRY [facility] Aug 27, 2023 11:30 AM AMBULATORY - REHAB [facility] Sep 03, 2023 02:00 PM AMBULATORY - PS[facility]CHIATRY [facility] Sep 10, 2023 07:12 PM AMBULATORY - MEDICINE [facility] Sep 19, 2023 12:50 PM AMBULATORY - NONE [facility] Oct 01, 2023 01:00 PM AMBULATORY - PS[facility]CHIATRY [facility] Oct 08, 2023 01:00 PM AMBULATORY - PS[facility]CHIATRY [facility] Oct 22, 2023 01:00 PM AMBULATORY - PS[facility]CHIATRY [facility] Nov 05, 2023 01:00 PM AMBULATORY - PS[facility]CHIATRY [facility] November 19, 2023 03:00 PM AMBULATORY - MEDICINE [facility] November 28, 2023 01:00 PM AMBULATORY - PSYCHIATRY [facility] December 01, 2023 02:15 PM AMBULATORY - NONE [facility] December 04, 2023 09:00 AM AMBULATORY - PS[facility]CHIATRY [facility] December 05, 2023 01:20 PM AMBULATORY - REHAB [facility] December 05, 2023 02:45 PM AMBULATORY - MEDICINE [facility] December 16, 2023 02:00 PM AMBULATORY - PS[facility]CHIATRY [facility] Advance Directives: All historical and current Section Date Range: From patient's date of to the date document was created. This section includes ALL of a patient's completed or amended [place] Advance and Rescinded Directives. The entries below indicate that a directive exists for the patient, but an actual copy is not included with this document. The data comes from all [facility]. Date Advance Directives Provider Source Jan 05, 2024 ADVANCE DIRECTIVE DISCUSSION HSAHID HURTADO E [facility] Encounter Notes: All associated encounter notes This [...] counseling using a standard curriculum (30 min): [place] was seen for Hearing Aid [place] Appointment OTOSCOPY: Both Ears: Free of excessive cerumen. Normal anatomy bilaterally HISTORY: [place] has never used hearing aids previously. HEARING AIDS (Right/Left) fit: 07/24/23 Make: Signia Model: Styletto 7AX RINA-R (Cosmic blue with tanesha gold) Serial numbers ([id number]) Acoustics: #2xS waste/materials exchange specialist 3.0, medium open domes Accessories: Streamline Cb WT: [id number] ACTION: Hearing aids are a good physical fit. Feedback test was completed and feedback change control manager was activated. Hearing aids were programmed [...] were verified. Indicator tones were demonstrated for . Volume control enabled Accessories were paired to hearing aids and use was demonstrated in the office. Veterans cell phone was paired to the hearing aids and Lisa was reviewed in detail (volume control, program changes, streaming calls and music, etc.). STANDARD CURRICULUM OF COUNSELING (30 min): was counseled using a standard curriculum regarding: -Full-time hearing aid use and acclimating to amplification -Realistic expectations for hearing aid use -Appropriate communication strategies -Battery insertion and removal/How to charge the hearing aids -Location and operation of all controls -Proper care and maintenance -Protecting hearing in high noise levels -Warning about battery ingestion -[facility] and Call Center contact information and services, including the trial period. -Tinnitus Counseling/Management/Talisha nd therapy with hearing aids alone, or incorporating sounds from the Relief tinnitus lisa. reported good sound quality and equal balance between ears after adjustments were made. reported a comfortable fit in both ears. demonstrated understanding of the new aids and was able to insert the hearing aids appropriately, as well as manipulate the volume control and battery door/charging unit. Prognosis for success is good, given the Veterans response to the hearing aids. Hearing aids were issued and batteries and supplies were mailed. was provided with a copy of [place] issuance form [id number]. PLAN: - Order placed for [facility] follow up. Nita is a first time user. /lilia/ NIMISHA RODAS STAFF GEOLOGIST PETROLEUM Signed: 07/24/2023 09:29 DAVID WALTON [facility]
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
--- OUTSIDE RECORDS SUMMARY | 2024-05-04 07:51 | XMS_ITS | Encounter Summary ---
Author Name [facility] [place] [facility] [place] Address [address] [place] [address] Care Team Providers Care Tree Faller Name Role Phone EMIR GRACIA Primary Care Provider Unavailabl e Selected Encounter This section includes the information on record at [place] for the Encounter. Date/Time Encounter Type Encounter Description Reason Pro vider Source Dec 29, 2023 09:50 AM Inpatient Visit CLINICAL PHARMACY E Encounter Template Text not used by [place] Plan of Treatment: Future Appointments (+ 6 [...] Appointme nt Facility Name Dec 30, 2023 10:30 AM AMBULATORY - MEDICINE [facility] Dec 30, 2023 01:00 PM AMBULATORY - PSYCHIATRY [facility] Jan 04, 2024 02:00 PM AMBUL[place]ORY - [place]ONE [place] [facility] Jan 05, 2024 08:45 AM [place] [facility] Jan 05, 2024 10:00 AM [place] [facility] Jan 05, 2024 11:00 AM [place] [place] [facility] Jan 05, 2024 12:00 PM AMBULAT[facility] [place]AT[place] [facility] Jan 05, 2024 12:30 PM AMBULAT[facility] [place] [facility] Jan 05, 2024 02:30 PM [place]UL[facility] [place] [facility] Jan 06, 2024 08:45 AM [place]UL[facility] [place] [facility] Jan 06, 2024 10:00 AM [place] [place] [facility] Jan 06, 2024 11:00 AM [place] [place] [facility] Jan 08, 2024 08:45 AM [place] [place] [facility] Jan 08, 2024 10:00 AM [place] [place] [facility] Jan 08, 2024 11:00 AM [place] [place] [facility] Jan 09, 2024 08:45 AM [facility] [place] [facility] Jan 09, 2024 10:00 AM [facility] [place] [facility] Jan 09, 2024 11:00 AM [place] [place] [facility] Jan 12, 2024 08:45 AM [place] [place] [facility] Jan 12, 2024 10:00 AM [place] [place] [facility] Active, Pending, and Scheduled Orders This section includes a listing of several types of active, pending, and scheduled orders, including clinic medications orders, diagnostic test orders, procedure orders and consult orders; where the start date of the order is 45 days before the date of the Encounter or 45 days after the date of theEncounter. The data comes from all [facility] facilities. Test Date/Time Test Type Test Details Facility Name November 19, 2023 12:00 AM Laboratory - Chemi stry Order ELASTASE-1,PANC STL STOOL FECES SP ONCE [facility] November 19, 2023 12:00 AM Laboratory - Chemi stry Order IGA PLASMA SP ONCE [facility] November 19, 2023 12:00 AM Laboratory - Chemi stry Order TTG AB,IGA SERUM SP ONCE [facility] November 19, 2023 12:00 AM Laboratory - Microbiology Order OVA & PARASITES FECAL FECES SP ONCE [facility] November 19, 2023 12:00 AM Laboratory - Chemi stry Order ENTERIC PATHOGEN PCR PANEL STOOL FECES SP ONCE [facility] December 05, 2023 02:27 PM Laboratory - Chemi stry Order BLOOD GAS PANEL FOR ICU ARTERIAL BLOOD STAT WC [facility] December 12, 2023 03:21 PM Laboratory - Chemi stry Order CALPROTECTIN,STOOL STOOL FECES SP ONCE [facility] Dec 21, 2023 04:56 PM Laboratory - Chemi stry Order SALICYLATE SERUM STAT SP [facility] Lab Results: +/- 30 days of [...] Range Comment Dec 22, 2023 06:44 AM [facility] HEMOGLOBIN A1C Specimen Type: BLOOD Comment: [...] Dec 21, 2023 08:58 PM Reporting Lab: [facility] [phone] Performing Lab: [facility] [phone] HEMOGLOBIN A1C 4.9 4.0-6.0 Dec 22, 2023 06:44 AM [facility] B 12 Specimen Type: SERUM No comment entered. Ordering Provider: Celeste DUKES Report Released Date/Time: Dec 21, 2023 08:58 PM Reporting Lab: [facility] [phone] Performing Lab: [facility] [address] B 12 381 pg/mL 213-816 Dec 22, 2023 06:44 AM [facility] VIT D 25-OH,TOTAL Specimen Type: SERUM No comment entered. Ordering Provider: Celeste DUKES Report Released Date/Time: Dec 21, 2023 08:58 PM Reporting Lab: [facility] [phone] Performing Lab: [facility] [phone] VIT D 25-OH,TOTAL 29 ng/mL 12-50 Dec 22, 2023 06:44 AM [facility] FOLATE Specimen Type: PLASMA No comment entered. Ordering Provider: Celeste DUKES Report Released Date/Time: Dec 21, 2023 08:58 PM Reporting Lab: [facility] [phone] Performing Lab: [facility] [phone] FOLATE 7.1 ng/mL >7.0 Dec 22, 2023 06:44 AM [facility] TSH W/REFLEX TO FREE T4 Specimen Type: PLASMA No comment entered. Ordering Provider: Celeste DUKES Report Released Date/Time: Dec 21, 2023 08:58 PM Reporting Lab: [facility] [phone] Performing Lab: [facility] [phone] TSH 0.36 u[IU]/mL 0.35-4.94 Dec 22, 2023 06:44 AM [facility] LIPID PANEL,FASTING Specimen Type: PLASMA No comment entered. Ordering Provider: Celeste DUKES Report Released Date/Time: Dec 21, 2023 08:58 PM Reporting Lab: [facility] [phone] Performing Lab: [facility] [phone] CHOLESTEROL 170 mg/dL <199 TRIGLYCERIDE 151 mg/dL H <149 .HDL 34 mg/dL L >50 LDL CALCULATION 106 mg/dL H <99 VLDL CALCULATION 30 mg/dL H <29 NON HDL CHOLESTEROL 136 mg/dL H <129 Dec 21, 2023 09:33 PM [facility] DRUG SCREEN PANEL,URINE Specimen Type: URINE Comment: Presumptive Positive by screen, results not confirmed. Ordering Provider: MONIQUE VÁSQUEZ Report Released Date/Time: Dec 21, 2023 04:56 PM Reporting Lab: [facility] [phone] Performing Lab: [facility] [phone] BARBITURATES Negative Negative AMPHETAMINES Negative Negative COCAINE Negative Negative BENZODIAZEPINES Negative Negative CANNABINOIDS POSITIVE H Negative METHADONE Negative Negative OPIATES Negative Negative PHENCYCLIDINE Negative Negative ETHANOL,URINE Negative Negative DRUG SCREEN CREAT 325.9 mg/dL >20.0 OXYCODONE Negative Negative BUPRENORPHINE Negative Negative TRAMADOL Negative Negative FENTANYL Negative Negative Dec 21, 2023 05:30 PM [facility] ETHANOL Specimen Type: PLASMA No comment entered. Ordering Provider: MONIQUE VÁSQUEZ Report Released Date/Time: Dec 21, 2023 04:56 PM Reporting Lab: [facility] [phone] Performing Lab: [facility] [address] ETHANOL Negative mg/dL NEGATIVE Dec 21, 2023 05:30 PM [facility] COMPREHENSIVE METABOLIC PANEL+MG Specimen Type: PLASMA No comment entered. Ordering Provider: MONIQUE VÁSQUEZ Report Released Date/Time: Dec 21, 2023 04:56 PM Reporting Lab: [facility] [phone] Performing Lab: [facility] [phone] CREATININE 1.0 mg/dL 0.5-1.0 UREA NITROGEN 9 [...] 71 >60 Dec 21, 2023 05:30 PM [facility] CBC & DIFF Specimen Type: BLOOD Comment: Automated Differential Performed Ordering Provider: MONIQUE VÁSQUEZ Report Released Date/Time: Dec 21, 2023 04:56 PM Reporting Lab: [facility] [phone] Performing Lab: [facility] [phone] WBC 9.50 10*3/uL 4.0-11.0 RBC 4.69 10*6/uL [...] 10*3/uL 0-0.5 ABS BASO 0.07 10*3/uL 0-0.2 IG(META,MYELO,CO O) 0.3 ABS IMMATURE GRAN 0.03 10*3/uL 0-0.1 December 05, 2023 02:20 PM [facility] EXTRA RED TUBE Specimen Type: SERUM No comment entered. Ordering Provider: NELSON RONQUILLO Report Released Date/Time: December 05, 2023 02:39 PM Reporting Lab: [facility] [phone] Performing Lab: [facility] [phone] EXTRA RED TUBE RECEIVED December 05, 2023 02:20 PM [facility] LACTIC ACID Specimen Type: PLASMA No comment entered. Ordering Provider: NELSON RONQUILLO Report Released Date/Time: December 05, 2023 02:27 PM Reporting Lab: [facility] [phone] Performing Lab: [facility] [phone] LACTIC ACID 1.7 mmol/L 0.5-2.2 December 05, 2023 02:20 PM [facility] CODE BLUE(LYTE,CR,UN,GL,MG,CA,PHOS,TROP) Specimen Type: PLASMA No comment entered. Ordering Provider: NELSON RONQUILLO Report Released Date/Time: December 05, 2023 02:27 PM Reporting Lab: [facility] [phone] Performing Lab: [facility] [phone] CREATININE 1.1 mg/dL H 0.5-1.0 UREA NITROGEN 10 mg/dL 7-20 GLUCOSE 101 mg/dL H 70-100 SODIUM 138 mmol/L 136-145 POTASSIUM 3.8 mmol/L 3.5-5.1 CHLORIDE 107 mmol/L 98-107 CO2 22 mmol/L 22-29 CALCIUM 9.3 mg/dL 8.4-10.2 PHOSPHORUS 3.5 mg/dL 2.3-4.7 MAGNESIUM 1.9 mg/dL 1.6-2.6 ANION GAP 9 mmol/L 5-15 .CREAT EGFR(CKD-EPI) 64 >60 TROPONIN I, HS <3 <14 December 05, 2023 02:20 PM [facility] EXTRA GOLD GEL TUBE Specimen Type: SERUM No comment entered. Ordering Provider: NELSON RONQUILLO Report Released Date/Time: December 05, 2023 02:39 PM Reporting Lab: [facility] [phone] Performing Lab: [facility] [phone] EXTRA GOLD GEL TUBE RECEIVED December 05, 2023 02:20 PM [facility] CBC Specimen Type: BLOOD No comment entered. Ordering Provider: NELSON RONQUILLO Report Released Date/Time: December 05, 2023 02:27 PM Reporting Lab: [facility] [phone] Performing Lab: [facility] [phone] WBC 11.50 10*3/uL H 4.0-11.0 RBC 4.83 10*6/uL 4.0-5.4 HGB 13.6 g/dL 11.5-16 HCT 39.8 34.5-48 MCV 82.4 fL 80-100 MCH 28.2 pg 27-33 MCHC 34.2 g/dL 32.0-37.5 PLT 443 10*3/uL H 150-400 MPV 9.1 fL 7.4-10.4 RDW 12.5 11.5-14.5 December 05, 2023 02:20 PM [facility] PROTHROMBIN TIME/INR Specimen Type: PLASMA No comment entered. Ordering Provider: NELSON RONQUILLO Report Released Date/Time: December 05, 2023 02:27 PM Reporting Lab: [facility] [address] Performing Lab: [facility] [phone] .INR 1.2 H 0.8-1.1 .PT 13.5 s H 9.4-12.5 December 05, 2023 02:18 PM [facility] POC ABG/ELECTROLYTES Specimen Type: VENOUS BLOOD Comment: FIO2 = 40% Patient Temp: 36.6 C Sample Type = VENOUS Ordering Provider: ULYSSES ELDER Report Released Date/Time: December 06, 2023 08:24 PM Reporting Lab: [facility] [phone] Performing Lab: [facility] [address] POC PH 7.382 7.31-7.41 POC PCO2 35.0 [...] Pain Height Weight Body Mass Index Source Dec 29, 2023 06:18 AM 98.0 87 123/80 18 98 3 [place] [facility] Advance Directives: All historical and current Section Date Range: From patient's date of to the date document was created. This section includes ALL of a patient's completed or amended [place] Advance and Rescinded Directives. The entries below indicate that a directive exists for the patient, but an actual copy is not included with this document. The data comes from all [place] facilities. Date Advance Directives Provider Source Jan 05, 2024 ADVANCE DIRECTIVE DISCUSSION SHAHID HURTADO [facility] Encounter Notes: All associated encounter notes This section contains the clinical notes associated to the Encounter. Date/Time Encounter Note(s) Provider Source Dec 29, 2023 09:50 AM PHARMACY EDUCATION NOTE: LOCAL TITLE: EDUCATION PHARMACY MED INSTRUCTION/RECONCILIATION STANDARD TITLE: PHARMACY EDUCATION NOTE DATE OF NOTE: DEC 29, 2023@09:50 ENTRY DATE: DEC 29, 2023@09:50:11 AUTHOR: SONDRA KRISHNA COSIGNER: URGENCY: STATUS: COMPLETED MEDICATION DISCHARGE EDUCATION LEARNING NEEDS/OBJECTIVES Participant(s) indicates readiness to learn and has been instructed on indications, side effects, directions for use and given a list of medications. Participant(s) will receive medication information sheets for medications filled. Education included discussion of the following: NEW Medication: QUETIAPINE 300MG TABLET & QUETIAPINE 25MG TABLET = Take a 200mg tablet in the morning and a 300mg tablet every night at bedtime. May take a 25mg tablet up to three times daily if needed for anxiety = Helps with sleep and can improve depressive symptoms as well = Can cause dizziness/drowsiness/dry mouth = May cause an increase in appetite, which may lead to weight gain; continue to get regular exercise and eat a healthy diet = Rare but significant movement disorder possible; this will be monitored regularly, but report any frequent, involuntary movements to your doctor TRAZODONE 50mg TABLET = Take one tablet at bedtime = Recommend taking no later than midnight to avoid next-day grogginess Nicotine GUM 4mg = Set a date when you intend to stop smoking (quit date). = Begin using the gum on your quit date. = Chew: Unlike regular gum, chew slowly until you have a peppery or slight tingling in your mouth. = Park the gum between your cheek and gum. Leave it there for about one (1) minute to absorb until taste or tingle is gone. = Repeat the steps of Chew and Park until the taste or tingle is gone. One piece of gum lasts 20-30 minutes = Do not eat or drink for 15 minutes before and during use. Doing so may prevent the gum from working correctly. Pharmacy refill process. Tobacco Cessation Discharge Plan Patient interested in tobacco cessation medications at discharge, but declines further follow-up services. If future follow up is desired, patient will contact primary care clinic. Active Outpatient Medications (including Supplies): Outpatient Medications [...] TIMES A DAY NEEDED FOR PAIN 11) NICOTINE 2MG GUM CHEW 1 PIECE IN MOUTH EVERY HOUR ACTIVE NEEDED TO QUIT TOBACCO 12) ONDANSETRON HCL 4MG TAB TAKE ONE TABLET BY MOUTH ACTIVE EVERY 6 HOURS NEEDED FOR NAUSEA AND VOMITING 13) PREDNISONE 50MG TAB TAKE TWO TABLETS BY MOUTH ACTIVE NEEDED ONCE FOR ANAPHYLAXIS- TAKE IMMEDIATELY 100MG PREDNISONE AND 2 TABS CETIRIZINE (5MG EACH) FOR SEVERE ALLERGIC REACTION 14) QUETIAPINE FUMARATE 200MG TAB TAKE ONE TABLET BY ACTIVE MOUTH EVERY MORNING FOR DEPRESSION 15) QUETIAPINE FUMARATE 25MG TAB TAKE ONE TABLET BY MOUTH ACTIVE THREE TIMES A DAY NEEDED FOR ANXIETY 16) QUETIAPINE FUMARATE 300MG TAB TAKE ONE TABLET BY ACTIVE MOUTH AT BEDTIME FOR DEPRESSION 17) TACROLIMUS 0.1% TOP OINT APPLY THIN LAYER TOPICALLY HOLD TWICE A DAY NEEDED FOR SEVERE ITCHING/DERMATITIS 18) TRAZODONE HCL 50MG TAB TAKE ONE TABLET BY MOUTH AT ACTIVE BEDTIME NEEDED FOR SLEEP Non-VA Medications Status 1) Non-VA HYDROMORPHONE 2MG TAB 4MG MOUTH EVERY 6 HOURS ACTIVE NEEDED 2) Non-VA LORAZEPAM 0.5MG TAB 0.5MG MOUTH EVERY 8 HOURS ACTIVE NEEDED 20 Total Medications PARTICIPANTS: Patient TEACHING STRATEGY: Face to Face, Medication information sheets and list of medications READINESS TO LEARN No barriers identified PATIENT/FAMILY RESPONSE (OUTCOME): Verbalizes critical information about the topic FOLLOW-UP RECOMMENDED: As directed by discharging provider /lilia/ Danae HuitronD, BCPP Clinical Pharmacist, Inpatient Mental Health Signed: 12/29/2023 09:53 Receipt Acknowledged By: 12/30/2023 08:51 /lilia/ NELSON MENA Staff Psychiatrist SONDRA KRISHNA [facility]
--- OUTSIDE RECORDS SUMMARY | 2024-05-04 07:51 | XMS_ITS | Encounter Summary ---
Author Name [facility] [place] Organization [facility] [place] Address [address] [place] [address] Care Team Providers Care Rig Builder Helper Name Role Phone EMIR GRACIA Primary Care Provider Unavailabl e Selected Encounter This section includes the information on record at [place] for the Encounter. Date/Time Encounter Type Encounter Description Reason Provider Source Jan 12, 2024 10:00 AM 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/[facility] ICD-10-CM F32.9 Major depressive disorder, single episode, unspecified CAMILLE PEDRO Lorie Encounter Template Text not used by [place] Assessments - Encounter Diagnoses This section includes the primary and secondary diagnoses documented for the Encounter. Date/Time Primary/Secondary Diagnosis Diagnosis Name Provider Source Jan 12, 2024 11:52 AM PRIMARY Major depressive disorder, single episode, unspecified CAMILLE EPDRO [facility] Jan 12, 2024 11:52 AM SECONDARY Post-traumatic stress disorder, [facility] Plan of Treatment: Future Appointments (+ 6 months) and Future Tests (+/- 45 days) The Plan of Treatment section includes future care activities for the patient from all [place] treatmentfacilities. This section includes future appointments and future orders which are active, pending or scheduled. Future Appointments This section includes appointments that were scheduled to occur 6 months from the date of the Encounter, up to a maximum of 20 appointments. The data comes from all [place] treatment [facility]. Appointment Date/Time Appointment Type Appointme nt Facility Name Jan 13, 2024 08:45 AM [facility] Jan 13, 2024 10:00 AM [facility] [place] [facility] Jan 13, 2024 11:00 AM [facility] Jan 13, 2024 12:00 PM AMBULATORY - PS[facility]IATRY [place] [facility] Jan 14, 2024 08:45 AM AMBULATORY - [facility]RY [place] [facility] Jan 14, 2024 10:00 AM [facility] Jan 14, 2024 11:00 AM [facility] [place] [facility] Jan 14, 2024 12:00 PM AMBULATORY - [place]RY [place] [facility] Jan 15, 2024 08:45 AM [facility] Jan 15, 2024 10:00 AM [facility] Jan 15, 2024 11:00 AM [facility] Jan 16, 2024 08:45 AM [facility] Jan 16, 2024 10:00 AM [facility] Jan 16, 2024 11:00 AM [facility] Jan 19, 2024 08:45 AM [facility] Jan 19, 2024 10:00 AM [facility] Jan 19, 2024 11:00 AM [facility] Jan 19, 2024 12:00 PM [facility] Jan 20, 2024 08:45 AM [facility] [place] [facility] Jan 20, 2024 10:00 AM [facility] Active, Pending, and Scheduled Orders This section includes a listing of several types of active, pending, and scheduled orders, including clinic medications orders, diagnostic test orders, procedure orders and consult orders; where the start date of the order is 45 days before the date of the Encounter or 45 days after the date of theEncounter. The data comes from all [facility]. Test Date/Time Test Type Test Details Facility Name December 05, 2023 02:27 PM Laboratory - Chemi stry Order BLOOD GAS PANEL FOR ICU ARTERIAL BLOOD STAT WC [facility] December 12, 2023 03:21 PM Laboratory - Chemi stry Order CALPROTECTIN,STOOL STOOL FECES SP ONCE [facility] Dec 21, 2023 04:56 PM Laboratory - Chemi stry Order SALICYLATE SERUM STAT SP [facility] Lab Results: +/- 30 days of the encounter This section includes the Chemistry and Hematology Lab Results on record with [place] for the patient. Radiology Reports and Pathology Reports are provided separately, in subsequent sections. Lab Results This section contains the Chemistry/Hematology Results that were resulted 30 days before or 30 daysafter the date of the Encounter. Date/Time Source Result Type Result - Unit Interpretation Reference Range Comment Dec 22, 2023 06:44 AM [facility] HEMOGLOBIN A1C Specimen Type: BLOOD Comment: [...] Dec 21, 2023 08:58 PM Reporting Lab: [facility] [id number] Performing Lab: [facility] [phone] HEMOGLOBIN A1C 4.9 4.0-6.0 Dec 22, 2023 06:44 AM [facility] B 12 Specimen Type: SERUM No comment entered. Ordering Provider: Celeste DUKES Report Released Date/Time: Dec 21, 2023 08:58 PM Reporting Lab: [facility] [phone] Performing Lab: [facility] [phone] B 12 381 pg/mL [phone] Dec 22, 2023 06:44 AM [facility] VIT D 25-OH,TOTAL Specimen Type: SERUM No comment entered. Ordering Provider: Celeste DUKES Report Released Date/Time: Dec 21, 2023 08:58 PM Reporting Lab: [facility] [phone] Performing Lab: [facility] [id number] VIT D 25-OH,TOTAL 29 ng/mL 12-50 Dec 22, 2023 06:44 AM [facility] FOLATE Specimen Type: PLASMA No comment entered. Ordering Provider: Celeste DUKES Report Released Date/Time: Dec 21, 2023 08:58 PM Reporting Lab: [facility] [phone] Performing Lab: [facility] [phone] FOLATE 7.1 ng/mL >7.0 Dec 22, 2023 06:44 AM [facility] LIPID PANEL,FASTING Specimen Type: PLASMA No comment entered. Ordering Provider: Celeste DUKES Report Released Date/Time: Dec 21, 2023 08:58 PM Reporting Lab: [facility] [id number] Performing Lab: [facility] [address] CHOLESTEROL 170 mg/dL <199 TRIGLYCERIDE 151 mg/dL H <149 .HDL 34 mg/dL L >50 LDL CALCULATION 106 mg/dL H <99 VLDL CALCULATION 30 mg/dL H <29 NON HDL CHOLESTEROL 136 mg/dL H <129 Dec 22, 2023 06:44 AM [facility] TSH W/REFLEX TO FREE T4 Specimen Type: PLASMA No comment entered. Ordering Provider: Celeste DUKES Report Released Date/Time: Dec 21, 2023 08:58 PM Reporting Lab: [facility] [id number] Performing Lab: [facility] [phone] TSH 0.36 u[IU]/mL 0.35-4.94 Dec 21, 2023 09:33 PM [facility] DRUG SCREEN PANEL,URINE Specimen Type: URINE Comment: Presumptive Positive by screen, results not confirmed. Ordering Provider: MONIQUE VÁSQUEZ Report Released Date/Time: Dec 21, 2023 04:56 PM Reporting Lab: [facility] [phone] Performing Lab: [facility] [phone] BARBITURATES Negative Negative AMPHETAMINES Negative Negative COCAINE Negative Negative BENZODIAZEPINES Negative Negative CANNABINOIDS POSITIVE H Negative METHADONE Negative Negative OPIATES Negative Negative PHENCYCLIDINE Negative Negative ETHANOL,URINE Negative Negative DRUG SCREEN CREAT 325.9 mg/dL >20.0 OXYCODONE Negative Negative BUPRENORPHINE Negative Negative TRAMADOL Negative Negative FENTANYL Negative Negative Dec 21, 2023 05:30 PM [facility] ETHANOL Specimen Type: PLASMA No comment entered. Ordering Provider: MONIQUE VÁSQUEZ Report Released Date/Time: Dec 21, 2023 04:56 PM Reporting Lab: [facility] [phone] Performing Lab: [facility] [address] ETHANOL Negative mg/dL NEGATIVE Dec 21, 2023 05:30 PM [facility] COMPREHENSIVE METABOLIC PANEL+MG Specimen Type: PLASMA No comment entered. Ordering Provider: MONIQUE VÁSQUEZ Report Released Date/Time: Dec 21, 2023 04:56 PM Reporting Lab: [facility] [phone] Performing Lab: [facility] [phone] CREATININE 1.0 mg/dL 0.5-1.0 UREA NITROGEN 9 [...] 71 >60 Dec 21, 2023 05:30 PM [facility] CBC & DIFF Specimen Type: BLOOD Comment: Automated Differential Performed Ordering Provider: MONIQUE VÁSQUEZ Report Released Date/Time: Dec 21, 2023 04:56 PM Reporting Lab: [facility] [phone] Performing Lab: [facility] [phone] WBC 9.50 10*3/uL 4.0-11.0 RBC 4.69 10*6/uL [...] 10*3/uL 0-0.5 ABS BASO 0.07 10*3/uL 0-0.2 IG(META,MYELO,OR O) 0.3 ABS IMMATURE GRAN 0.03 10*3/uL 0-0.1 Social History: Smoking Status (Most current) and Tobacco Use (All prior to encounter date) This section includes the most current, and the historical, smoking and tobacco- related health factors from the [place] facility where the Encounter took place. Current Smoking Status This section includes the most current smoking, or tobacco-related health factor, from the [place] facility where the Encounter took place. Date/Time Current Smoking Status Comment Facil ity Jan 05, 2024 12:00 PM VA-TOBACCO FORMER USER [facility] Tobacco Use History This section includes a history of the smoking, or tobacco-related health factors, that were collected on or before the date of the Encounter. The data comes from the [place] facility where the Encounter took place. Date/Time Smoking Status/Tobacco Use Comment F acility Jan 05, 2024 12:00 PM AR-TOBACCO QUIT 5 TO < 15 YRS [facility] Advance Directives: All historical and current Section Date Range: From patient's date of to the date document was created. This section includes ALL of a patient's completed or amended [place] Advance and Rescinded Directives. The entries below indicate that a directive exists for the patient, but an actual copy is not included with this document. The data comes from all [place] facilities. Date Advance Directives Provider Source Jan 05, 2024 ADVANCE DIRECTIVE DISCUSSION [facility] Encounter Notes: All associated encounter notes This section contains the clinical notes associated to the Encounter. Date/Time Encounter Note(s) Provider Source Jan 12, 2024 10:00 AM [facility] P COUNSELING NOTE: LOCAL TITLE: MH GROUP NOTE STANDARD TITLE: MENTAL HEALTH GROUP COUNSELING NOTE DATE OF NOTE: JAN 12, 2024@10:00 ENTRY DATE: JAN 12, 2024@11:44:58 AUTHOR: CAMILLE PEDRO EXP COSIGNER: URGENCY: STATUS: COMPLETED MH GROUP NOTE Has ADDENDA Stress Management Basics [facility] 3-week F2F Program DATE: 01/12/24, 10:00 PROCEDURE: 60 minutes, pt education NUMBER PRESENT: 5 veterans PRESENTERS: Camille Pedro, Ph.D., L.P.; RAGHU Winters, ANTHONY, MT-DANGELO MODALITY: Group Psychotherapy Education done during the session: was cooperative and engaged, seemed interested, and asked questions. Informed consent for treatment and limits of confidentiality, as well as limits and benefits of treatment, were reviewed with patient in first session and they indicated understanding and agreement in the first session. For additional information about goals and plan for treatment while in [facility], please refer to veterans individualized treatment plan upon entry to [facility]. is continuing with [facility] programming at this time. Also refer to suicide risk assessment completed upon entrance into [facility] program for comprehensive description of acute and chronic risk level. No change in risk at this time. Group presentation in mixed lecture-discussion format. Patients learned to identify symptoms of stress, sources of stress, and various methods of stress reduction. There was also guided practice on 2 stress management techniques including deep breathing and progressive muscle relaxation. Dx: MDD, rec; PTSD r/t MST /lilia/ Camille Pedro, Ph.D., L.P. Staff Psychologist Signed: 01/12/2024 11:55 Receipt Acknowledged By: 01/12/2024 16:23 /lilia/ RAGHU ODOM,ANTHONY,MTJASMIN CREATIVE ARTS THERAPIST 01/12/2024 ADDENDUM STATUS: COMPLETED Care provided: Follow up care covered under the COMPACT Act of 2019 Section 201. Supporting clinical documentation: Vet is actively engaged in all aspects of the [facility] program. /lilia/ Camille Pedro, Ph.D., L.P. Staff Psychologist Signed: 01/12/2024 11:56 CAMILLE PEDRO [facility]
--- OUTSIDE RECORDS SUMMARY | 2024-05-04 07:51 | XMS_ITS | Encounter Summary ---
Author Name [facility] [place] Organization [facility] [place] Address [address] [place] [address] Care Team Providers Care Youth Worker Name Role Phone EMIR GRACIA Primary Care Provider Unavailabl e Selected Encounter This section includes the information on record at [place] for the Encounter. Date/Time Encounter Type Encounter Description Reason Provider Source Jan 05, 2024 11:00 AM 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/JO[facility]PH [facility] ICD-10-CM F33.9 Major depressive disorder, recurrent, unspecified RENEEERJOSH CHLAINA G IHLorie Encounter Template Text not used by [place] Assessments - Encounter Diagnoses This section includes the primary and secondary diagnoses documented for the Encounter. Date/Time Primary/Secondary Diagnosis Diagnosis Name Provider Source Jan 05, 2024 12:30 PM PRIMARY Major depressive disorder, recurrent, unspecified VANESSA ALMEIDA [facility] Jan 05, 2024 12:30 PM SECONDARY Post-traumatic stress disorder, chronic VANESSA ALMEIDA [facility] Plan of Treatment: Future Appointments (+ [...] 20 appointments. The data comes from all [facility]. Appointment Date/Time Appointment Type Appointme nt Facility Name Jan 06, 2024 08:45 AM [facility]ULATORY [place] [facility] Jan 06, 2024 10:00 AM [facility] Jan 06, 2024 11:00 AM [facility] Jan 08, 2024 08:45 AM [facility] Jan 08, 2024 10:00 AM [facility] Jan 08, 2024 11:00 AM [facility] Jan 09, 2024 08:45 AM [facility] Jan 09, 2024 10:00 AM [facility] Jan 09, 2024 11:00 AM [facility] Jan 12, 2024 08:45 AM [facility] Jan 12, 2024 10:00 AM [facility] Jan 12, 2024 11:00 AM [facility] Jan 13, 2024 08:45 AM [facility] Jan 13, 2024 10:00 AM [facility] Jan 13, 2024 11:00 AM [facility] Jan 13, 2024 12:00 PM [facility] Jan 14, 2024 08:45 AM [facility] Jan 14, 2024 10:00 AM [facility] Jan 14, 2024 11:00 AM [facility] Jan 14, 2024 12:00 PM [facility] Active, Pending, and Scheduled Orders This section includes a listing of several types of active, pending, and scheduled orders, including clinic medications orders, diagnostic test orders, procedure orders and consult orders; where the start date of the order is 45 days before the date of the Encounter or 45 days after the date of theEncounter. The data comes from all [facility]. Test Date/Time Test Type Test Details Facility Name December 05, 2023 02:27 PM Laboratory - Chemi stry Order BLOOD GAS PANEL FOR ICU ARTERIAL BLOOD STAT WC [facility] December 12, 2023 03:21 PM Laboratory - Chemi stry Order CALPROTECTIN,STOOL STOOL FECES SP ONCE [facility] Dec 21, 2023 04:56 PM Laboratory - Chemi stry Order SALICYLATE SERUM STAT SP [facility] Lab Results: +/- 30 days of [...] Range Comment Dec 22, 2023 06:44 AM [facility] HEMOGLOBIN A1C Specimen Type: BLOOD Comment: [...] Dec 21, 2023 08:58 PM Reporting Lab: [facility] [id number] Performing Lab: [facility] [phone] HEMOGLOBIN A1C 4.9 4.0-6.0 Dec 22, 2023 06:44 AM [facility] B 12 Specimen Type: SERUM No comment entered. Ordering Provider: Celeste DUKES Report Released Date/Time: Dec 21, 2023 08:58 PM Reporting Lab: [facility] [phone] Performing Lab: [facility] [phone] B 12 381 pg/mL 213-816 Dec 22, 2023 06:44 AM [facility] VIT D 25-OH,TOTAL Specimen Type: SERUM No comment entered. Ordering Provider: Celeste DUKES Report Released Date/Time: Dec 21, 2023 08:58 PM Reporting Lab: [facility] [phone] Performing Lab: [facility] [phone] VIT D 25-OH,TOTAL 29 ng/mL 12-50 Dec 22, 2023 06:44 AM [facility] TSH W/REFLEX TO FREE T4 Specimen Type: PLASMA No comment entered. Ordering Provider: Celeste DUKES Report Released Date/Time: Dec 21, 2023 08:58 PM Reporting Lab: [facility] [phone] Performing Lab: [facility] [phone] TSH 0.36 u[IU]/mL 0.35-4.94 Dec 22, 2023 06:44 AM [facility] FOLATE Specimen Type: PLASMA No comment entered. Ordering Provider: Celeste DUKES Report Released Date/Time: Dec 21, 2023 08:58 PM Reporting Lab: [facility] [phone] Performing Lab: [place] [phone] FOLATE 7.1 ng/mL >7.0 Dec 22, 2023 06:44 AM [facility] LIPID PANEL,FASTING Specimen Type: PLASMA No comment entered. Ordering Provider: Celeste DUKES Report Released Date/Time: Dec 21, 2023 08:58 PM Reporting Lab: [facility] [phone] Performing Lab: [facility] [phone] CHOLESTEROL 170 mg/dL <199 TRIGLYCERIDE 151 mg/dL H <149 .HDL 34 mg/dL L >50 LDL CALCULATION 106 mg/dL H <99 VLDL CALCULATION 30 mg/dL H <29 NON HDL CHOLESTEROL 136 mg/dL H <129 Dec 21, 2023 09:33 PM [facility] DRUG SCREEN PANEL,URINE Specimen Type: URINE Comment: Presumptive Positive by screen, results not confirmed. Ordering Provider: MONIQUE VÁSQUEZ Report Released Date/Time: Dec 21, 2023 04:56 PM Reporting Lab: [facility] [phone] Performing Lab: [facility] [phone] BARBITURATES Negative Negative AMPHETAMINES Negative Negative COCAINE Negative Negative BENZODIAZEPINES Negative Negative CANNABINOIDS POSITIVE H Negative METHADONE Negative Negative OPIATES Negative Negative PHENCYCLIDINE Negative Negative ETHANOL,URINE Negative Negative DRUG SCREEN CREAT 325.9 mg/dL >20.0 OXYCODONE Negative Negative BUPRENORPHINE Negative Negative TRAMADOL Negative Negative FENTANYL Negative Negative Dec 21, 2023 05:30 PM [facility] ETHANOL Specimen Type: PLASMA No comment entered. Ordering Provider: MONIQUE VÁSQUEZ Report Released Date/Time: Dec 21, 2023 04:56 PM Reporting Lab: [facility] [phone] Performing Lab: [facility] [phone] ETHANOL Negative mg/dL NEGATIVE Dec 21, 2023 05:30 PM [facility] CBC & DIFF Specimen Type: BLOOD Comment: Automated Differential Performed Ordering Provider: MONIQUE VÁSQUEZ Report Released Date/Time: Dec 21, 2023 04:56 PM Reporting Lab: [facility] [phone] Performing Lab: [facility] [phone] WBC 9.50 10*3/uL 4.0-11.0 RBC 4.69 10*6/uL [...] 10*3/uL 0-0.5 ABS BASO 0.07 10*3/uL 0-0.2 IG(META,MYELO,IN O) 0.3 ABS IMMATURE GRAN 0.03 10*3/uL 0-0.1 Dec 21, 2023 05:30 PM [facility] COMPREHENSIVE METABOLIC PANEL+MG Specimen Type: PLASMA No comment entered. Ordering Provider: MONIQUE VÁSQUEZ Report Released Date/Time: Dec 21, 2023 04:56 PM Reporting Lab: [facility] [phone] Performing Lab: [facility] [phone] CREATININE 1.0 mg/dL 0.5-1.0 UREA NITROGEN 9 [...] 16 U/L <34 .CREAT EGFR(CKD-EPI) 71 >60 Vital Signs: All taken on the encounter date This section contains inpatient and outpatient Vital Signs collected on the date of the Encounter. Date/Time Temperature Pulse Blood Pressure Respiratory Rate SP02 Pain Height Weight Body Mass Index Source Jan 05, 2024 12:11 PM 98.6 77 125/80 16 98 [facility] Social History: Smoking Status (Most current) [...] Date/Time Current Smoking Status Comment Latasha pitts Jan 05, 2024 12:00 PM [place]-TOBACCO FORMER USER [facility] Tobacco Use History This section includes a history of the smoking, or tobacco-related health factors, that were collected on or before the date of the Encounter. The data comes from the [place] facility where the Encounter took place. Date/Time Smoking Status/Tobacco Use Comment F acility Jan 05, 2024 12:00 PM [place]-TO[place] QUIT 5 TO < 15 YRS [facility] Advance Directives: All historical and current Section Date Range: From patient's date of to the date document was created. This section includes ALL of a patient's completed or amended [place] Advance and Rescinded Directives. The entries below indicate that a directive exists for the patient, but an actual copy is not included with this document. The data comes from all [place] facilities. Date Advance Directives Provider Source Jan 05, 2024 ADVANCE DIRECTIVE DISCUSSION BOBBY HURTADOInder ARINA Melo [facility] Encounter Notes: All associated encounter notes This section contains the clinical notes associated to the Encounter. Date/Time Encounter Note(s) Provider Source Jan 05, 2024 11:00 AM MENTAL HEALTH GROU P COUNSELING NOTE: LOCAL TITLE: MH GROUP NOTE STANDARD TITLE: MENTAL HEALTH GROUP COUNSELING NOTE DATE OF NOTE: JAN 05, 2024@11:00 ENTRY DATE: JAN 05, 2024@11:58:57 AUTHOR: VANESSA ALMEIDA COSIGNER: LAINA STOREY URGENCY: STATUS: COMPLETED MH GROUP NOTE Has ADDENDA [facility] GROUP NOTE GROUP FACILITATORS: Vanessa Almeida PsyD DATE OF GROUP: 01/05/2024 TIME OF GROUP: 1100 NUMBER IN ATTENDANCE: 4 PROCEDURE: Introductions and Group Psychotherapy FREQUENCY: 3x weekly SKILLS USED: Interpersonal group process, Validation, Support, and Feedback GROUP CONTENT: Veterans participated in an Introduction to [facility], which included a discussion of logistics and guidelines. Checked in with group members regarding concerns, reactions, and goals for treatment. Primary themes today included vulnerability and feelings of worthlessness. Gallina participated in the group discussion and appeared to be attentive throughout. Informed consent for treatment and limits of confidentiality, as well as limits and benefits of treatment, were reviewed with patient in first session and they indicated understanding and agreement in the first session. For additional information about goals and plan for treatment while in [facility], please refer to veterans individualized treatment plan upon entry to [facility]. Gallina is continuing with [facility] programming at this time. Also refer to suicide risk assessment completed upon entrance into [facility] program for comprehensive description of acute and chronic risk level. No change in risk at this time. Plan: Continue to attend [facility] to work toward goals. Gallina attended group for 50 minutes DSM-5 DIAGNOSIS: MDD, rec; PTSD r/t MST Care provided: Follow up care covered under the COMPACT Act of 2019 Section 201. Supporting clinical documentation: [facility] consult & [facility] notes /lilia/ VANESSA ALMEIDA Graduate Psychologist Signed: 01/05/2024 12:37 /lilia/ LAINA STOREY, PHD, [facility] Cosigned: 01/05/2024 13:59 01/05/2024 ADDENDUM STATUS: COMPLETED I have reviewed, edited, and concur with the graduate psychologist's note. I was not present for today's session, but I was available in the area for immediate consultation. /lilia/ LAINA STOREY, PHD, [facility] Signed: 01/05/2024 14:00 VANESSA ALMEIDA [facility]
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
--- OUTSIDE RECORDS SUMMARY | 2024-05-04 07:51 | XMS_ITS | Encounter Summary ---
Author Name [facility] [place] [facility] [place] Address [address] [place] [address] Care Team Providers Care Math Coach Name Role Phone EMIR GRACIA Primary Care Provider Unavailabl e Selected Encounter This section includes the information on record at [place] for the Encounter. Date/Time Encounter Type Encounter Description Reason Provider Source Jan 05, 2024 12:00 PM PT EDUCATION NOC GROUP [facility] ICD-10-CM F32.9 Major depressive disorder, single episode, unspecified CLEOPATRA HURTADO [facility] Encounter Template Text not used by [place] Assessments - Encounter Diagnoses This section includes the primary and secondary diagnoses documented for the Encounter. Date/Time Primary/Secondary Diagnosis Diagnosis Name Provider Source Jan 05, 2024 12:20 PM PRIMARY Major depressive disorder, single episode, unspecified CLEOPATRA HURTADO [facility] Jan 05, 2024 12:20 PM SECONDARY Post-traumatic stress disorder, chronic CLEOPATRA HURTADO [facility] Plan of Treatment: Future Appointments (+ 6 months) and Future Tests (+/- 45 days) The Plan of Treatment section includes future care activities for the patient from all [place] treatmentfacilities. This section includes future appointments and future orders which are active, pending or scheduled. Future Appointments This section includes appointments that were scheduled to occur 6 months from the date of the Encounter, up to a maximum of 20 appointments. The data comes from all [place] treatment [facility]. Appointment Date/Time Appointment Type Appointme nt Facility Name Jan 06, 2024 08:45 AM AMBULATORY - PS[facility]CHIATRY [facility] Jan 06, 2024 10:00 AM AMBULATORY - PSYCHIATRY [facility] Jan 06, 2024 11:00 AM AMBULATORY - PSYCHIATRY [facility] Jan 08, 2024 08:45 AM AMBULATORY - PSYCHIATRY [facility] Jan 08, 2024 10:00 AM AMBULATORY - PS[facility]CHIATRY [facility] Jan 08, 2024 11:00 AM [facility] Jan 09, 2024 08:45 AM [facility] Jan 09, 2024 10:00 AM AMBULATORY - [facility] Jan 09, 2024 11:00 AM AMBULATORY - PS[facility]ATRY [facility] Jan 12, 2024 08:45 AM AMBULATORY - PS[facility]AT[facility] Jan 12, 2024 10:00 AM AMBULATORY - PS[facility] Jan 12, 2024 11:00 AM AMBULATORY - PS[facility] Jan 13, 2024 08:45 AM AMBULATORY - PS[facility]ATRY [facility] Jan 13, 2024 10:00 AM AMBULATORY - [facility] Jan 13, 2024 11:00 AM AMBULATORY - [facility] Jan 13, 2024 12:00 PM AMBULATORY - PS[facility]ATRY [facility] Jan 14, 2024 08:45 AM AMBULATORY - PS[facility]AT[facility] Jan 14, 2024 10:00 AM AMBULATORY - [facility] Jan 14, 2024 11:00 AM [facility] Jan 14, 2024 12:00 PM AMBULATORY - PS[facility]CH[facility]ATRY [facility] Active, Pending, and Scheduled Orders [...] PANEL FOR ICU ARTERIAL BLOOD STAT WC [facility] December 12, 2023 03:21 PM Laboratory - Chemi stry Order CALPROTECTIN,STOOL STOOL FECES SP ONCE [facility] Dec 21, 2023 04:56 PM Laboratory - Chemi stry Order SALICYLATE SERUM STAT SP [facility] Lab Results: +/- 30 days of [...] Range Comment Dec 22, 2023 06:44 AM [facility] HEMOGLOBIN A1C Specimen Type: BLOOD Comment: [...] 21, 2023 08:58 PM Reporting Lab: [facility] [id number] Performing Lab: [facility] [phone] HEMOGLOBIN A1C 4.9 4.0-6.0 Dec 22, 2023 06:44 AM [facility] B 12 Specimen Type: SERUM No comment entered. Ordering Provider: Celeste DUKES Report Released Date/Time: Dec 21, 2023 08:58 PM Reporting Lab: [facility] [phone] Performing Lab: [facility] [phone] B 12 381 pg/mL 213-816 Dec 22, 2023 06:44 AM [facility] VIT D 25-OH,TOTAL Specimen Type: SERUM No comment entered. Ordering Provider: Celeste DUKES Report Released Date/Time: Dec 21, 2023 08:58 PM Reporting Lab: [facility] [phone] Performing Lab: [facility] [phone] VIT D 25-OH,TOTAL 29 ng/mL 12-50 Dec 22, 2023 06:44 AM [facility] TSH W/REFLEX TO FREE T4 Specimen Type: PLASMA No comment entered. Ordering Provider: Celeste DUKES Report Released Date/Time: Dec 21, 2023 08:58 PM Reporting Lab: [facility] [phone] Performing Lab: [facility] [phone] TSH 0.36 u[IU]/mL 0.35-4.94 Dec 22, 2023 06:44 AM [facility] FOLATE Specimen Type: PLASMA No comment entered. Ordering Provider: Celeste DUKES Report Released Date/Time: Dec 21, 2023 08:58 PM Reporting Lab: [facility] [phone] Performing Lab: [facility] [address] FOLATE 7.1 ng/mL >7.0 Dec 22, 2023 06:44 AM [facility] LIPID PANEL,FASTING Specimen Type: PLASMA No comment entered. Ordering Provider: Celeste DUKES Report Released Date/Time: Dec 21, 2023 08:58 PM Reporting Lab: [facility] [phone] Performing Lab: [facility] [phone] CHOLESTEROL 170 mg/dL <199 TRIGLYCERIDE 151 mg/dL H <149 .HDL 34 mg/dL L >50 LDL CALCULATION 106 mg/dL H <99 VLDL CALCULATION 30 mg/dL H <29 NON HDL CHOLESTEROL 136 mg/dL H <129 Dec 21, 2023 09:33 PM [facility] DRUG SCREEN PANEL,URINE Specimen Type: URINE Comment: Presumptive Positive by screen, results not confirmed. Ordering Provider: MONIQUE VÁSQUEZ Report Released Date/Time: Dec 21, 2023 04:56 PM Reporting Lab: [facility] [phone] Performing Lab: [facility] [phone] BARBITURATES Negative Negative AMPHETAMINES Negative Negative COCAINE Negative Negative BENZODIAZEPINES Negative Negative CANNABINOIDS POSITIVE H Negative METHADONE Negative Negative OPIATES Negative Negative PHENCYCLIDINE Negative Negative ETHANOL,URINE Negative Negative DRUG SCREEN CREAT 325.9 mg/dL >20.0 OXYCODONE Negative Negative BUPRENORPHINE Negative Negative TRAMADOL Negative Negative FENTANYL Negative Negative Dec 21, 2023 05:30 PM [facility] ETHANOL Specimen Type: PLASMA No comment entered. Ordering Provider: MONIQUE VÁSQUEZ Report Released Date/Time: Dec 21, 2023 04:56 PM Reporting Lab: [facility] [phone] Performing Lab: [facility] [phone] ETHANOL Negative mg/dL NEGATIVE Dec 21, 2023 05:30 PM [facility] CBC & DIFF Specimen Type: BLOOD Comment: Automated Differential Performed Ordering Provider: MONIQUE VÁSQUEZ Report Released Date/Time: Dec 21, 2023 04:56 PM Reporting Lab: [facility] [phone] Performing Lab: [facility] [address] WBC 9.50 10*3/uL 4.0-11.0 RBC 4.69 10*6/uL [...] 10*3/uL 0-0.5 ABS BASO 0.07 10*3/uL 0-0.2 IG(META,MYELO,MN O) 0.3 ABS IMMATURE GRAN 0.03 10*3/uL 0-0.1 Dec 21, 2023 05:30 PM [facility] COMPREHENSIVE METABOLIC PANEL+MG Specimen Type: PLASMA No comment entered. Ordering Provider: THALIA,MONIQUE H Report Released Date/Time: Dec 21, 2023 04:56 PM Reporting Lab: [facility] [address] Performing Lab: [facility] [phone] CREATININE 1.0 mg/dL 0.5-1.0 UREA NITROGEN 9 [...] PM 98.6 77 125/80 16 98 [facility] Social History: Smoking Status (Most current) and Tobacco Use (All prior to encounter date) This section includes the most current, and the historical, smoking and tobacco- related health factors from the [place] facility where the Encounter took place. Current Smoking Status This section includes the most current smoking, or tobacco-related health factor, from the [place] facility where the Encounter took place. Date/Time Current Smoking Status Comment Latasha pitts Jan 05, 2024 12:00 PM [facility]-TOBACCO FORMER USER [facility] Tobacco Use History This section includes a history of the smoking, or tobacco-related health factors, that were collected on or before the date of the Encounter. The data comes from the [place] facility where the Encounter took place. Date/Time Smoking Status/Tobacco Use Comment F acility Jan 05, 2024 12:00 PM [place]-TOBAC[place] QU[place] 5 TO < 15 YRS [facility] Advance Directives: All historical and current Section Date Range: From patient's date of to the date document was created. This section includes ALL of a patient's completed or amended [place] Advance and Rescinded Directives. The entries below indicate that a directive exists for the patient, but an actual copy is not included with this document. The data comes from all [place] facilities. Date Advance Directives Provider Source Jan 05, 2024 ADVANCE DIRECTIVE DISCUSSION SHAHID HURTADO [facility] Encounter Notes: All associated encounter notes This section contains the clinical notes associated to the Encounter. Date/Time Encounter Note(s) Provider Source Jan 05, 2024 12:00 PM ADVANCE DIRECTIVE DISCUSSION: LOCAL TITLE: ADVANCE DIRECTIVE DISCUSSION STANDARD TITLE: ADVANCE DIRECTIVE DISCUSSION DATE OF NOTE: JAN 05, 2024@12:00 ENTRY DATE: JAN 05, 2024@12:15:35 AUTHOR: GEORGINA HURTADO EXP COSIGNER: URGENCY: STATUS: COMPLETED Advance Directive (AD) Mental Health Preferences Patient did not complete an Advance Directive but there was education and discussion about Advance Directives and Mental Health Preferences. Education was done in group format in-person. Group gluer machine setup operator: MERNA Wesley LICSW Date and time: 01/05/2024 at 1200 for 15 minutes Number attendin Limits of confidentiality and consent for participation in PPH programming, including PPH groups and individual meetings, have been reviewed with in first session and indicated understanding and agreement. For additional information about goals and plan for treatment while in PPH, please refer to 's individualized treatment plan upon entry to PPH. [place] is continuing with PPH programming at this time. Also refer to suicide risk assessment completed upon entrance into PPH program for comprehensive description of risk level. No change in risk at this time. 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
--- OUTSIDE RECORDS SUMMARY | 2024-05-04 07:51 | XMS_ITS | Encounter Summary ---
Author Name [facility] Organization [facility] Address [address] [place] [address] Care Team Providers Care Bilingual Kindergarten Teacher Name Role Phone EMIR GRACIA Primary Care Provider Unavailabl e Selected Encounter This section includes the information on record at [place] for the Encounter. Date/Time Encounter Type Encounter Description Reason Provider Source Jan 09, 2024 08:45 AM 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/[facility] ICD-10-CM F32.9 Major depressive disorder, single episode, unspecified CANDICE ACOSTA Lorie Encounter Template Text not used by [place] Assessments - Encounter Diagnoses This section includes the primary and secondary diagnoses documented for the Encounter. Date/Time Primary/Secondary Diagnosis Diagnosis Name Provider Source Jan 09, 2024 03:12 PM PRIMARY Major depressive disorder, single episode, unspecified CANDICE ACOSTA [facility] Jan 09, 2024 03:12 PM SECONDARY Post-traumatic stress disorder, chronic CANDICE ACOSTA [facility] Plan of Treatment: Future Appointments (+ 6 months) and Future Tests (+/- 45 days) The Plan of Treatment section includes future care activities for the patient from all [place] treatmentfacilities. This section includes future appointments and future orders which are active, pending or scheduled. Future Appointments This section includes appointments that were scheduled to occur 6 months from the date of the Encounter, up to a maximum of 20 appointments. The data comes from all [facility]. Appointment Date/Time Appointment Type Appointme nt Facility Name Jan 12, 2024 08:45 AM [facility] Jan 12, 2024 10:00 AM [facility] Jan 12, 2024 11:00 AM [facility] Jan 13, 2024 08:45 AM [facility] Jan 13, 2024 10:00 AM [facility] Jan 13, 2024 11:00 AM [facility] Jan 13, 2024 12:00 PM [facility] Jan 14, 2024 08:45 AM [facility] Jan 14, 2024 10:00 AM [facility] Jan 14, 2024 11:00 AM [facility] Jan 14, 2024 12:00 PM [facility] Jan 15, 2024 08:45 AM [facility] Jan 15, 2024 10:00 AM [facility] Jan 15, 2024 11:00 AM [facility] Jan 16, 2024 08:45 AM [facility] Jan 16, 2024 10:00 AM [facility] Jan 16, 2024 11:00 AM [facility] Jan 19, 2024 08:45 AM [facility] Jan 19, 2024 10:00 AM [facility] Jan 19, 2024 11:00 AM [facility] Active, Pending, and Scheduled Orders This section includes a listing of several types of active, pending, and scheduled orders, including clinic medications orders, diagnostic test orders, procedure orders and consult orders; where the start date of the order is 45 days before the date of the Encounter or 45 days after the date of theEncounter. The data comes from all [facility]. Test Date/Time Test Type Test Details Facility Name December 05, 2023 02:27 PM Laboratory - Chemi stry Order BLOOD GAS PANEL FOR ICU ARTERIAL BLOOD STAT WC [facility] December 12, 2023 03:21 PM Laboratory - Chemi stry Order CALPROTECTIN,STOOL STOOL FECES SP ONCE [facility] Dec 21, 2023 04:56 PM Laboratory - Chemi stry Order SALICYLATE SERUM STAT SP [facility] Lab Results: +/- 30 days of the encounter This section includes the Chemistry and Hematology Lab Results on record with [place] for the patient. Radiology Reports and Pathology Reports are provided separately, in subsequent sections. Lab Results This section contains the Chemistry/Hematology Results that were resulted 30 days before or 30 daysafter the date of the Encounter. Date/Time Source Result Type Result - Unit Interpretation Reference Range Comment Dec 22, 2023 06:44 AM [facility] HEMOGLOBIN A1C Specimen Type: BLOOD Comment: [...] Dec 21, 2023 08:58 PM Reporting Lab: [facility] [id number] Performing Lab: [facility] [id number] HEMOGLOBIN A1C 4.9 4.0-6.0 Dec 22, 2023 06:44 AM [facility] B 12 Specimen Type: SERUM No comment entered. Ordering Provider: Celeste DUKES Report Released Date/Time: Dec 21, 2023 08:58 PM Reporting Lab: [facility] [phone] Performing Lab: [facility] [id number] B 12 381 pg/mL 213-816 Dec 22, 2023 06:44 AM [facility] VIT D 25-OH,TOTAL Specimen Type: SERUM No comment entered. Ordering Provider: Celeste DUKES Report Released Date/Time: Dec 21, 2023 08:58 PM Reporting Lab: [facility] [phone] Performing Lab: [facility] [phone] VIT D 25-OH,TOTAL 29 ng/mL 12-50 Dec 22, 2023 06:44 AM [facility] FOLATE Specimen Type: PLASMA No comment entered. Ordering Provider: Celeste DUKES Report Released Date/Time: Dec 21, 2023 08:58 PM Reporting Lab: [facility] [phone] Performing Lab: [facility] [phone] FOLATE 7.1 ng/mL >7.0 Dec 22, 2023 06:44 AM [facility] LIPID PANEL,FASTING Specimen Type: PLASMA No comment entered. Ordering Provider: Celeste DUKES Report Released Date/Time: Dec 21, 2023 08:58 PM Reporting Lab: [facility] [phone] Performing Lab: [facility] [phone] CHOLESTEROL 170 mg/dL <199 TRIGLYCERIDE 151 mg/dL H <149 .HDL 34 mg/dL L >50 LDL CALCULATION 106 mg/dL H <99 VLDL CALCULATION 30 mg/dL H <29 NON HDL CHOLESTEROL 136 mg/dL H <129 Dec 22, 2023 06:44 AM [facility] TSH W/REFLEX TO FREE T4 Specimen Type: PLASMA No comment entered. Ordering Provider: Celeste DUKES Report Released Date/Time: Dec 21, 2023 08:58 PM Reporting Lab: [facility] [phone] Performing Lab: [facility] [phone] TSH 0.36 u[IU]/mL 0.35-4.94 Dec 21, 2023 09:33 PM [facility] DRUG SCREEN PANEL,URINE Specimen Type: URINE Comment: Presumptive Positive by screen, results not confirmed. Ordering Provider: MONIQUE VÁSQUEZ Report Released Date/Time: Dec 21, 2023 04:56 PM Reporting Lab: [facility] [phone] Performing Lab: [facility] [phone] BARBITURATES Negative Negative AMPHETAMINES Negative Negative COCAINE Negative Negative BENZODIAZEPINES Negative Negative CANNABINOIDS POSITIVE H Negative METHADONE Negative Negative OPIATES Negative Negative PHENCYCLIDINE Negative Negative ETHANOL,URINE Negative Negative DRUG SCREEN CREAT 325.9 mg/dL >20.0 OXYCODONE Negative Negative BUPRENORPHINE Negative Negative TRAMADOL Negative Negative FENTANYL Negative Negative Dec 21, 2023 05:30 PM [facility] ETHANOL Specimen Type: PLASMA No comment entered. Ordering Provider: MONIQUE VÁSQUEZ Report Released Date/Time: Dec 21, 2023 04:56 PM Reporting Lab: [facility] [phone] Performing Lab: [facility] [phone] ETHANOL Negative mg/dL NEGATIVE Dec 21, 2023 05:30 PM [facility] COMPREHENSIVE METABOLIC PANEL+MG Specimen Type: PLASMA No comment entered. Ordering Provider: MONIQUE VÁSQUEZ Report Released Date/Time: Dec 21, 2023 04:56 PM Reporting Lab: [facility] [phone] Performing Lab: [facility] [phone] CREATININE 1.0 mg/dL 0.5-1.0 UREA NITROGEN 9 [...] 71 >60 Dec 21, 2023 05:30 PM [facility] CBC & DIFF Specimen Type: BLOOD Comment: Automated Differential Performed Ordering Provider: MONIQUE VÁSQUEZ Report Released Date/Time: Dec 21, 2023 04:56 PM Reporting Lab: [facility] [phone] Performing Lab: [facility] [phone] WBC 9.50 10*3/uL 4.0-11.0 RBC 4.69 10*6/uL [...] 10*3/uL 0-0.5 ABS BASO 0.07 10*3/uL 0-0.2 IG(META,MYELO,CT O) 0.3 ABS IMMATURE GRAN 0.03 10*3/uL 0-0.1 Social History: Smoking Status (Most current) and Tobacco Use (All prior to encounter date) This section includes the most current, and the historical, smoking and tobacco- related health factors from the [place] facility where the Encounter took place. Current Smoking Status This section includes the most current smoking, or tobacco-related health factor, from the [place] facility where the Encounter took place. Date/Time Current Smoking Status Comment Facil ity Jan 05, 2024 12:00 PM VA-TOBACCO FORMER USER [facility] Tobacco Use History This section includes a history of the smoking, or tobacco-related health factors, that were collected on or before the date of the Encounter. The data comes from the [place] facility where the Encounter took place. Date/Time Smoking Status/Tobacco Use Comment F acility Jan 05, 2024 12:00 PM [place]-TOBACCO QUIT 5 TO < 15 YRS [facility] Advance Directives: All historical and current Section Date Range: From patient's date of to the date document was created. This section includes ALL of a patient's completed or amended [place] Advance and Rescinded Directives. The entries below indicate that a directive exists for the patient, but an actual copy is not included with this document. The data comes from all [place] facilities. Date Advance Directives Provider Source Jan 05, 2024 ADVANCE DIRECTIVE DISCUSSION SHAHID HURTADO [facility] Encounter Notes: All associated encounter notes This section contains the clinical notes associated to the Encounter. Date/Time Encounter Note(s) Provider Source Jan 09, 2024 08:45 AM MENTAL HEALTH GROU P COUNSELING NOTE: LOCAL TITLE: MH GROUP NOTE STANDARD TITLE: MENTAL HEALTH GROUP COUNSELING NOTE DATE OF NOTE: JAN 09, 2024@08:45 ENTRY DATE: JAN 09, 2024@15:02:57 AUTHOR: CANDICE ACOSTA COSIGNER: URGENCY: STATUS: COMPLETED MH GROUP NOTE Has ADDENDA [facility] Group Title of Group: Emotion Regulation (part 4 of 4) Facilitators: RAGHU Winters BC-DMT, MT-BC Date of Group: 01-09-2024 Time of Group: Community Meeting [id number]; Emotion Regulation Group [id number] Length of Group: 65 minutes Number in Attendance: 3 MODALITY: Group Psychotherapy MEDIUM: discussion/handouts OBJECTIVES: 1) will learn about the concept of a skills breakdown point. 2) [place] will learn about skills for distress tolerance, including grounding and TIP skills. [place] attended: PATIENT EDUCATION: Readiness to learn: Attended session, participated in group discussion Patient Understanding: followed along, nodded head in agreement Informed consent for treatment and limits of [...] in risk at this time. Plan: Continue with [facility], working toward MH goals. 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 Supporting clinical documentation: See [facility] consult and intake documentation as well as documentation from today's encounter. /lilia/ RAGHU ODOM,BC-DMT,MT-BC CREATIVE ARTS THERAPIST Signed: 01/09/2024 15:18 CANDICE ACOSTA [facility]
--- OUTSIDE RECORDS SUMMARY | 2024-05-04 07:51 | XMS_ITS | Encounter Summary ---
Author Name [facility] [place] [facility] [place] Address [address] [place] [address] Care Team Providers Care Router Tender Name Role Phone EMIR GRACIA Primary Care Provider Unavailabl e Selected Encounter This section includes the information on record at [place] for the Encounter. Date/Time Encounter Type Encounter Description Reason Provider Source Jan 13, 2024 10:00 AM 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/[facility] ICD-10-CM F32.9 Major depressive disorder, single episode, unspecified VANESSA ALMEIDA Encounter Template Text not used by [place] Assessments - Encounter Diagnoses This section includes the primary and secondary diagnoses documented for the Encounter. Date/Time Primary/Secondary Diagnosis Diagnosis Name Provider Source Jan 13, 2024 11:26 AM PRIMARY Major depressive disorder, single episode, unspecified CLEOPATRA HURTADO [facility] Jan 13, 2024 11:26 AM SECONDARY Post-traumatic stress disorder, chronic CLEOPATRA HURTADO [facility] Plan of Treatment: Future Appointments (+ [...] 20 appointments. The data comes from all [facility]. Appointment Date/Time Appointment Type Appointme nt Facility Name Jan 14, 2024 08:45 AM [facility] Jan 14, 2024 10:00 [facility] Jan 14[facility] 2024 11:00 AM AMBULAT[facility] PS[facility]CHIATRY ID [facility] Jan 14, 2024 12:00 PM [facility] Jan 15, 2024 08:45 AM [facility] Jan 15, 2024 10:00 AM [facility] Jan 15, 2024 11:00 AM [facility] Jan 16, 2024 08:45 AM [facility] Jan 16, 2024 10:00 AM [facility] Jan 16, 2024 11:00 AM [facility] Jan 19, 2024 08:45 AM [facility] Jan 19, 2024 10:00 AM [facility] Jan 19, 2024 11:00 AM [facility] Jan 19, 2024 12:00 PM [facility] Jan 20, 2024 08:45 AM [facility] Jan 20, 2024 10:00 AM [facility] Jan 20, 2024 11:00 AM [facility] Jan 21, 2024 08:45 AM [facility] Jan 21, 2024 10:00 AM [facility] Jan 21, 2024 11:00 AM AMBULATORY - PSYCHIATRY ID [facility] Active, Pending, and Scheduled Orders This section includes a listing of several types of active, pending, and scheduled orders, including clinic medications orders, diagnostic test orders, procedure orders and consult orders; where the start date of the order is 45 days before the date of the Encounter or 45 days after the date of theEncounter. The data comes from all [facility]. Test Date/Time Test Type Test Details Facility Name December 05, 2023 02:27 PM Laboratory - Chemi stry Order BLOOD GAS PANEL FOR ICU ARTERIAL BLOOD STAT WC [facility] December 12, 2023 03:21 PM Laboratory - Chemi stry Order CALPROTECTIN,STOOL STOOL FECES SP ONCE [facility] Dec 21, 2023 04:56 PM Laboratory - Chemi stry Order SALICYLATE SERUM STAT SP [facility] Lab Results: +/- 30 days of [...] Range Comment Dec 22, 2023 06:44 AM [facility] HEMOGLOBIN A1C Specimen Type: BLOOD Comment: [...] Dec 21, 2023 08:58 PM Reporting Lab: [facility] [place] [id number] Performing Lab: [facility] [place] [phone] HEMOGLOBIN A1C 4.9 4.0-6.0 Dec 22, 2023 06:44 AM [facility] B 12 Specimen Type: SERUM No comment entered. Ordering Provider: Celeste DUKES Report Released Date/Time: Dec 21, 2023 08:58 PM Reporting Lab: [facility] [place] [phone] Performing Lab: [facility] [place] [address] B 12 381 pg/mL 213-816 Dec 22, 2023 06:44 AM [facility] VIT D 25-OH,TOTAL Specimen Type: SERUM No comment entered. Ordering Provider: Celeste DUKES Report Released Date/Time: Dec 21, 2023 08:58 PM Reporting Lab: [facility] [place] [phone] Performing Lab: [facility] [place] [phone] VIT D 25-OH,TOTAL 29 ng/mL 12-50 Dec 22, 2023 06:44 AM [facility] TSH W/REFLEX TO FREE T4 Specimen Type: PLASMA No comment entered. Ordering Provider: Celeste DUKES Report Released Date/Time: Dec 21, 2023 08:58 PM Reporting Lab: [facility] [place] [address] Performing Lab: [facility] [place] [address] TSH 0.36 u[IU]/mL 0.35-4.94 Dec 22, 2023 06:44 AM [facility] FOLATE Specimen Type: PLASMA No comment entered. Ordering Provider: Celeste DUKES Report Released Date/Time: Dec 21, 2023 08:58 PM Reporting Lab: [facility] [place] [phone] Performing Lab: [place] [phone] FOLATE 7.1 ng/mL >7.0 Dec 22, 2023 06:44 AM [facility] LIPID PANEL,FASTING Specimen Type: PLASMA No comment entered. Ordering Provider: Celeste DUKES Report Released Date/Time: Dec 21, 2023 08:58 PM Reporting Lab: [facility] [place] [phone] Performing Lab: [facility] [place] [address] CHOLESTEROL 170 mg/dL <199 TRIGLYCERIDE 151 mg/dL H <149 .HDL 34 mg/dL L >50 LDL CALCULATION 106 mg/dL H <99 VLDL CALCULATION 30 mg/dL H <29 NON HDL CHOLESTEROL 136 mg/dL H <129 Dec 21, 2023 09:33 PM [facility] DRUG SCREEN PANEL,URINE Specimen Type: URINE Comment: Presumptive Positive by screen, results not confirmed. Ordering Provider: MONIQUE VÁSQUEZ Report Released Date/Time: Dec 21, 2023 04:56 PM Reporting Lab: [facility] [place] [phone] Performing Lab: [facility] [place] [phone] BARBITURATES Negative Negative AMPHETAMINES Negative Negative COCAINE Negative Negative BENZODIAZEPINES Negative Negative CANNABINOIDS POSITIVE H Negative METHADONE Negative Negative OPIATES Negative Negative PHENCYCLIDINE Negative Negative ETHANOL,URINE Negative Negative DRUG SCREEN CREAT 325.9 mg/dL >20.0 OXYCODONE Negative Negative BUPRENORPHINE Negative Negative TRAMADOL Negative Negative FENTANYL Negative Negative Dec 21, 2023 05:30 PM [facility] ETHANOL Specimen Type: PLASMA No comment entered. Ordering Provider: MONIQUE VÁSQUEZ Report Released Date/Time: Dec 21, 2023 04:56 PM Reporting Lab: [facility] [place] [phone] Performing Lab: [facility] [place] [phone] ETHANOL Negative mg/dL NEGATIVE Dec 21, 2023 05:30 PM [facility] CBC & DIFF Specimen Type: BLOOD Comment: Automated Differential Performed Ordering Provider: MONIQUE VÁSQUEZ Report Released Date/Time: Dec 21, 2023 04:56 PM Reporting Lab: [facility] [place] [address] Performing Lab: [facility] [place] [phone] WBC 9.50 10*3/uL 4.0-11.0 RBC 4.69 10*6/uL [...] 10*3/uL 0-0.1 Dec 21, 2023 05:30 PM [facility] COMPREHENSIVE METABOLIC PANEL+MG Specimen Type: PLASMA No comment entered. Ordering Provider: MONIQUE VÁSQUEZ Report Released Date/Time: Dec 21, 2023 04:56 PM Reporting Lab: [facility] [place] [phone] Performing Lab: [facility] [place] [phone] CREATININE 1.0 mg/dL 0.5-1.0 UREA NITROGEN 9 [...] and tobacco- related health factors from the [place] facility where the Encounter took place. Current Smoking Status This section includes the most current smoking, or tobacco-related health factor, from the [place] facility where the Encounter took place. Date/Time Current Smoking Status Comment Latasha ity Jan 05, 2024 12:00 PM [place]-TOBACCO FORMER USER [facility] Tobacco Use History This section includes a history of the smoking, or tobacco-related health factors, that were collected on or before the date of the Encounter. The data comes from the [place] facility where the Encounter took place. Date/Time Smoking Status/Tobacco Use Comment F acility Jan 05, 2024 12:00 PM [place] 5 TO < 15 YRS [facility] Advance Directives: All historical and current [...] 05, 2024 ADVANCE DIRECTIVE DISCUSSION SHAHID HURTADO [facility] Encounter Notes: All associated encounter notes This section contains the clinical notes associated to the Encounter. Date/Time Encounter Note(s) Provider Source Jan 13, 2024 10:00 AM [facility] GR[facility] P COUNSELING NOTE: LOCAL TITLE: MH GROUP NOTE STANDARD TITLE: MENTAL HEALTH GROUP COUNSELING NOTE DATE OF NOTE: JAN 13, 2024@10:00 ENTRY DATE: JAN 13, 2024@11:16:02 AUTHOR: GEORGINA HURTADO EXP COSIGNER: URGENCY: STATUS: COMPLETED MH GROUP NOTE Has ADDENDA FACILITATORS: Moi Tapia Psychologist DATE OF GROUP: 01/13/2024 TIME OF GROUP: 1000 LENGTH OF GROUP: 50 minutes NUMBER IN ATTENDANCE: 5 TOPIC: Coping with Setbacks MEDIUM: Group Discussion and Handouts Activity: Completing a Behavior Chain Analysis OBJECTIVES: 1. Veterans will define the concept of a setback and learn to distinguish between a lapse and a relapse. 2. Veterans will identify vulnerability factors and links to a problem behavior while learning how to complete a Behavior Chain Analysis as a tool for coping with setbacks. 3. Veterans will discuss strategies and skills to apply to various links in the chain to prevent future occurrences of the problem behavior. Patient Education: Readiness to learn: Attended session, Appeared to listen attentively, Asked questions, Responded to others questions Patient Understanding: Appeared to understand the material and concepts presented Plan: [place] will continue to attend [facility] to work toward goals. Informed consent for treatment and limits of confidentiality, as well as limits and benefits of treatment, were reviewed with patient in first session and they indicated understanding and agreement in the first session. For additional information about goals and plan for treatment while in [facility], please refer to veterans individualized treatment plan upon entry to [facility]. [place] is continuing with [facility] programming at this time. Also refer to suicide risk assessment completed upon entrance into [facility] program for comprehensive description of acute and chronic risk level. No change in risk at this time. Attended: full session DSM-5 DIAGNOSIS: MDD, rec; PTSD r/t MST /lilia/ FRANCESCA DEMPSEY CLINICAL WHIZZER Signed: 01/13/2024 11:32 Receipt Acknowledged By: 01/13/2024 12:09 /lilia/ LAINA STOREY, PHD, [facility] 01/13/2024 12:07 /es/ VANESSA ALMEIDA Graduate Psychologist 01/13/2024 ADDENDUM STATUS: COMPLETED I have reviewed, edited, and concur with the note for this group, which was facilitated by FRANCESCA Wesley, and Vanessa Almeida PsyD, who is a graduate psychologist under my supervision. I was not present for today's session, but I was available in the area for immediate consultation. /lilia/ LAINA STOREY, PHD, [facility] CLINICAL PSYCHOLOGIST Signed: 01/13/2024 12:09 01/13/2024 ADDENDUM STATUS: COMPLETED Care provided: Follow up care covered under the COMPACT Act of 2019 Section 201. Supporting clinical documentation: Please see [facility] consult and intake notes, and documentation related to today's encounters. /lilia/ FRANCESCA DEMPSEY CLINICAL WHIZZER Signed: 01/13/2024 13:08 GEORGINA HURTADO [facility]
--- OUTSIDE RECORDS SUMMARY | 2024-05-04 07:51 | XMS_ITS | Encounter Summary ---
Author Name [facility] Organization [facility] Address [address] [place] [address] Care Team Providers Care Evp General Counsel Name Role Phone EMIR GRACIA Primary Care Provider Unavailabl e Selected Encounter This section includes the information on record at [place] for the Encounter. Date/Time Encounter Type Encounter Description Reason Provider Source Jan 05, 2024 12:00 PM OFF/OP EST NOVEMBER X REQ Y/Q [facility] - IND ICD-10-CM F32.9 Major depressive disorder, single episode, unspecified SILVIO JIMENEZ Lorie Encounter Template Text not used by [place] Assessments - Encounter Diagnoses This section includes the primary and secondary diagnoses documented for the Encounter. Date/Time Primary/Secondary Diagnosis Diagnosis Name Provider Source Jan 05, 2024 12:54 PM PRIMARY Major depressive disorder, single episode, unspecified SILVIO JIMENEZ [facility] Jan 05, 2024 12:54 PM SECONDARY Personal history of other mental and behavioral disorders SILVIO JIMENEZ [facility] Plan of Treatment: Future Appointments [...] 20 appointments. The data comes from all [facility]. Appointment Date/Time Appointment Type Appointme nt Facility Name Jan 06, 2024 08:45 AM AMBULATORY [facility]ATRY [facility] Jan 06, 2024 10:00 AM [facility] Jan 06, 2024 11:00 AM [facility] Jan 08, 2024 08:45 AM [facility] Jan 08, 2024 10:00 AM [facility] Jan 08, 2024 11:00 AM [facility] Jan 09, 2024 08:45 AM [facility] Jan 09, 2024 10:00 AM AM[facility] Jan 09, 2024 11:00 AM AM[facility] Jan 12, 2024 08:45 AM AM[facility]UL[facility] Jan 12, 2024 10:00 AM AMBULATORY - PSYCHIATRY [facility] Jan 12, 2024 11:00 AM AMBUL[facility] Jan 13, 2024 08:45 AM AMBUL[facility] Jan 13, 2024 10:00 AM AM[facility]UL[facility] Jan 13, 2024 11:00 AM AMBUL[facility] Jan 13, 2024 12:00 PM AMBUL[facility] Jan 14, 2024 08:45 AM AMBUL[facility] Jan 14, 2024 10:00 AM AMBUL[facility] Jan 14, 2024 11:00 AM AM[facility] Jan 14, 2024 12:00 PM AMBULATORY - PSYCHIATRY SD [facility] Active, Pending, and Scheduled Orders This section includes a listing of several types of active, pending, and scheduled orders, including clinic medications orders, diagnostic test orders, procedure orders and consult orders; where the start date of the order is 45 days before the date of the Encounter or 45 days after the date of theEncounter. The [facility] comes from all [facility]. Test Date/Time Test Type Test Details Facility Name December 05, 2023 02:27 PM Laboratory - Chemi stry Order BLOOD GAS PANEL FOR ICU ARTERIAL BLOOD STAT WC [facility] December 12, 2023 03:21 PM Laboratory - Chemi stry Order CALPROTECTIN,STOOL STOOL FECES SP ONCE [facility] Dec 21, 2023 04:56 PM Laboratory - Chemi stry Order SALICYLATE SERUM STAT SP [facility] Lab Results: +/- 30 days [...] Range Comment Dec 22, 2023 06:44 AM [facility] HEMOGLOBIN A1C Specimen Type: BLOOD [...] Dec 21, 2023 08:58 PM Reporting Lab: [facility] [id number] Performing Lab: [facility] [id number] HEMOGLOBIN A1C 4.9 4.0-6.0 Dec 22, 2023 06:44 AM [facility] B 12 Specimen Type: SERUM No comment entered. Ordering Provider: Celeste DUKES Report Released Date/Time: Dec 21, 2023 08:58 PM Reporting Lab: [facility] [id number] Performing Lab: [facility] [address] B 12 381 pg/mL 213-816 Dec 22, 2023 06:44 AM [facility] VIT D 25-OH,TOTAL Specimen Type: SERUM No comment entered. Ordering Provider: Celeste DUKES Report Released Date/Time: Dec 21, 2023 08:58 PM Reporting Lab: [facility] [id number] Performing Lab: [facility] [address] VIT D 25-OH,TOTAL 29 ng/mL 12-50 Dec 22, 2023 06:44 AM [facility] FOLATE Specimen Type: PLASMA No comment entered. Ordering Provider: Celeste DUKES Report Released Date/Time: Dec 21, 2023 08:58 PM Reporting Lab: [facility] [address] Performing Lab: [facility] [address] FOLATE 7.1 ng/mL >7.0 Dec 22, 2023 06:44 AM [facility] TSH W/REFLEX TO FREE T4 Specimen Type: PLASMA No comment entered. Ordering Provider: Celeste DUKES Report Released Date/Time: Dec 21, 2023 08:58 PM Reporting Lab: [facility] [address] Performing Lab: [facility] [address] TSH 0.36 u[IU]/mL 0.35-4.94 Dec 22, 2023 06:44 AM [facility] LIPID PANEL,FASTING Specimen Type: PLASMA No comment entered. Ordering Provider: Celeste DUKES Report Released Date/Time: Dec 21, 2023 08:58 PM Reporting Lab: [facility] [address] Performing Lab: [facility] [address] CHOLESTEROL 170 mg/dL <199 TRIGLYCERIDE 151 mg/dL H <149 .HDL 34 mg/dL L >50 LDL CALCULATION 106 mg/dL H <99 VLDL CALCULATION 30 mg/dL H <29 NON HDL CHOLESTEROL 136 mg/dL H <129 Dec 21, 2023 09:33 PM [facility] DRUG SCREEN PANEL,URINE Specimen Type: URINE Comment: Presumptive Positive by screen, results not confirmed. Ordering Provider: MONIQUE VÁSQUEZ Report Released Date/Time: Dec 21, 2023 04:56 PM Reporting Lab: [facility] [phone] Performing Lab: [facility] [address] BARBITURATES Negative Negative AMPHETAMINES Negative Negative COCAINE Negative Negative BENZODIAZEPINES Negative Negative CANNABINOIDS POSITIVE H Negative METHADONE Negative Negative OPIATES Negative Negative PHENCYCLIDINE Negative Negative ETHANOL,URINE Negative Negative DRUG SCREEN CREAT 325.9 mg/dL >20.0 OXYCODONE Negative Negative BUPRENORPHINE Negative Negative TRAMADOL Negative Negative FENTANYL Negative Negative Dec 21, 2023 05:30 PM [facility] ETHANOL Specimen Type: PLASMA No comment entered. Ordering Provider: MONIQUE VÁSQUEZ Report Released Date/Time: Dec 21, 2023 04:56 PM Reporting Lab: [facility] [address] Performing Lab: [facility] [address] ETHANOL Negative mg/dL NEGATIVE Dec 21, 2023 05:30 PM [facility] COMPREHENSIVE METABOLIC PANEL+MG Specimen Type: PLASMA No comment entered. Ordering Provider: MONIQUE VÁSQUEZ Report Released Date/Time: Dec 21, 2023 04:56 PM Reporting Lab: [facility] [address] Performing Lab: [facility] [address] CREATININE 1.0 mg/dL 0.5-1.0 UREA NITROGEN 9 [...] 71 >60 Dec 21, 2023 05:30 PM [facility] CBC & DIFF Specimen Type: BLOOD Comment: Automated Differential Performed Ordering Provider: MONIQUE VÁSQUEZ Report Released Date/Time: Dec 21, 2023 04:56 PM Reporting Lab: [facility] [address] Performing Lab: [facility] [address] WBC 9.50 10*3/uL 4.0-11.0 RBC 4.69 10*6/uL [...] 10*3/uL 0-0.5 ABS BASO 0.07 10*3/uL 0-0.2 IG(META,MYELO,MD O) 0.3 ABS IMMATURE GRAN 0.03 10*3/uL 0-0.1 Vital Signs: All taken on the encounter date This section contains inpatient and outpatient Vital Signs collected on the date of the Encounter. Date/Time Temperature Pulse Blood Pressure Respiratory Rate SP02 Pain Height Weight Body Mass Index Source Jan 05, 2024 12:11 PM 98.6 77 125/80 16 98 [place] [facility] Social History: Smoking Status (Most current) [...] 05, 2024 12:00 PM VA-TOBACCO FORMER USER [facility] Tobacco Use History This section includes a history of the smoking, or tobacco-related health factors, that were collected on or before the date of the Encounter. The data comes from the [place] facility where the Encounter took place. Date/Time Smoking Status/Tobacco Use Comment F acility Jan 05, 2024 12:00 PM VA-TOBACCO QUIT 5 TO < 15 YRS [facility] Advance Directives: All historical and [...] 05, 2024 ADVANCE DIRECTIVE DISCUSSION SHAHID HURTADO [facility] Encounter Notes: All associated encounter notes This section contains the clinical notes associated to the Encounter. Date/Time Encounter Note(s) Provider Source Jan 05, 2024 12:13 PM EDUCATION NOTE: LOCAL TITLE: EDUCATION PT HEALTH SCREENING STANDARD TITLE: EDUCATION NOTE DATE OF NOTE: JAN 05, 2024@12:13 ENTRY DATE: JAN 05, 2024@12:13:10 AUTHOR: SILVIO JIMENEZ COSIGNER: URGENCY: STATUS: COMPLETED EDUCATION PT HEALTH SCREENING Has ADDENDA Type of Visit: Nurse Clinic Reason for Visit: PPH Admission Vital Signs: Blood Pressure: 125/80 (01/05/2024 12:11) Pulse: 77 (01/05/2024 12:11) Respiration: 16 (01/05/2024 12:11) Temperature: 98.6 F [37.0 C] (01/05/2024 12:11) Weight: 206.0 lb [93.44 kg] (12/25/2023 06:18) Height: 67.323 in [171.0 cm] (03/27/2023 09:03) Pain: 3 (12/29/2023 06:18) O2 Saturation % Pain Screening YES/NO (if yes, severity, location, and plan): 08/30 Chronic pain- Chronic pancreatitis Aggravating- Avoids avocados, alcohol, and fentanyl Alleviating- none identified Primary Care: Slick NOEL, last appt 05/07/23 Allergies: PFIZER COVID-19 VACCINE (EUA) (Mar 26, 2023) FENTANYL (Mar 26, 2023) INFLUENZA (Mar 26, 2023) MIRALAX (Mar 26, 2023) Medications: Active Outpatient Medications (including Supplies): ALBUTEROL 90MCG [...] MOUTH TWICE ACTIVE A DAY FOR ALLERGIES FISH OIL 1000MG (500MG DHA/EPA) CAP TAKE ONE CAPSULE BY ACTIVE MOUTH EVERY MORNING FOR HIGH TRIGLYCERIDES IBUPROFEN 800MG TAB TAKE ONE TABLET BY MOUTH THREE TIMES A HOLD DAY NEEDED FOR PAIN NICOTINE 2MG GUM CHEW 1 PIECE IN MOUTH EVERY HOUR ACTIVE NEEDED TO QUIT TOBACCO ONDANSETRON HCL 4MG TAB TAKE ONE TABLET BY MOUTH EVERY 6 ACTIVE HOURS NEEDED FOR NAUSEA AND VOMITING PREDNISONE 50MG TAB TAKE TWO TABLETS BY MOUTH NEEDED ACTIVE ONCE FOR ANAPHYLAXIS- TAKE IMMEDIATELY 100MG PREDNISONE AND 2 TABS CETIRIZINE (5MG EACH) FOR SEVERE ALLERGIC REACTION QUETIAPINE FUMARATE 200MG TAB TAKE ONE TABLET BY MOUTH ACTIVE EVERY MORNING FOR DEPRESSION QUETIAPINE FUMARATE 25MG TAB TAKE ONE TABLET BY MOUTH ACTIVE THREE TIMES A DAY NEEDED FOR ANXIETY QUETIAPINE FUMARATE 300MG TAB TAKE ONE TABLET BY MOUTH AT ACTIVE BEDTIME FOR DEPRESSION TACROLIMUS 0.1% TOP OINT APPLY THIN LAYER TOPICALLY TWICE HOLD A DAY NEEDED FOR SEVERE ITCHING/DERMATITIS TRAZODONE HCL 50MG TAB TAKE ONE TABLET BY MOUTH AT BEDTIME ACTIVE NEEDED FOR SLEEP Non-VA HYDROMORPHONE 2MG TAB 4MG MOUTH EVERY 6 HOURS ACTIVE NEEDED Non-VA LORAZEPAM 0.5MG TAB 0.5MG MOUTH EVERY 8 HOURS ACTIVE NEEDED Compliance: Yes Side effects: Yes A lot of fatigue, vivid dreams, Orthostatic hypotension from Seroquel Over the Counter/Herbal Medications: No Tobacco use: [...] 2-3. Any caffeine after 2 PM? Yes NUTRITION Weight at start of PPH: Current Weight: 206.0 lb [93.44 kg] (12/25/2023 06:18) Type of diet: Getting tested for exogen pancreatic deficiency, hasn't been eating as much- eating 1 full meal per day and a snack. Regular diet when eating meal/snacks. Food allergies: Yes Walnuts Dietary Restrictions: Yes Avoid high fat foods Weight gain/loss of 10 pounds in past 3 months: Yes Lost around 17 lbs in 3 months. Related to medical condition and dietary changes. Doctors are aware and monitoring during the testing and interventions. Decrease in food intake and/or appetite: YES/NO (if yes, specify plan): Planned decrease in food intake related to medical testing, patient reports appetite is pretty normal, maybe a bit decreased. Dental problems: YES/NO (if yes, specify plan): No Eating habits or behaviors that may be indicators of an eating disorder such as bingeing or inducing vomit: YES/NO (if yes, specify plan): No Request dietary consult: No Problems: Sleep: Quantity- 5-6 hrs, more recently 10-12 hrs with having less obligations and new medication. Quality- Difficult to fall asleep, have a lot of nightmares, I really don't ever feel rested. Difficulty returning to sleep. Still having nightmares and having difficulty falling asleep with increased sleeping hours recently. Patient reported not taking regular naps. Patient reports heavy snoring, not aware of any periods of apnea. Patient open to a sleep study, referral to be placed with sleep clinic. Ambulation: Independent Current sexual concerns? No Is your home free of violence/abuse? Yes Patient demonstrates a willingness to learn by coming to [facility] and this appointment. He/she was provided with orientation including a tour of the unit and a copy of [facility] treatment agreement and schedule. He/she was also informed about the availability of patient education resources and was encouraged to ask questions as needed. Limits of confidentiality and consent for participation in [facility] programming, including PPH groups and individual meetings, have been reviewed with [place] in first session and [place] indicated understanding and agreement. For additional information about goals and plan for treatment while in [facility], please refer to veterans individualized treatment plan upon entry to [facility]. [place] is continuing with PPH programming at this time. Also refer to suicide risk assessment completed upon entrance into PPH program for comprehensive description of risk level. No change in risk at this time. Influenza Immunization: No influenza vaccination was received during the recent influenza season. Tobacco Use Screening: The patient is a former tobacco user. The patient quit five to less than fifteen years ago. /Intentions/Contra ception: The patient is medically able to conceive. The patient states that they are not . An automated review of this patient's chart indicates the following orders are potentially harmful: Orderable Item Status Start Stop Hold IBUPROFEN TAB 800MG HOLD 04/01/2023 03/27/2024 Non-VA LORAZEPAM TAB 0.5MG ACTIVE Change ATORVASTATIN TAB 40MG ACTIVE 06/06/2023 06/05/2024 Release Hold of NICOTINE GUM,CHEWABLE 2MG ACTIVE 12/29/2023 12/29/2024 Action following medication review: Potentially harmful medications reviewed; counseling completed: If applicable, excluded Comment: Patient not sexually active, most recent partner was female. The patient does not desire within the next year. The patient has no current partner, so is not possible. Nursing Annual Screening: Fall History Screen During the past 12 months, have you had any falls? Patient does not report any falls in the past 12 months. MEDICATIONS: Patient is on one of the following medication classes: Antihypertensives, Antidepressants, Antipsychotics, Diuretics, or Controlled substance medication used for pain. Script Talk Screen Are you able to read your prescription bottles with your glasses, magnifiers or other aids? Yes or patient not taking any prescriptions. Skin Screen Patient reports any current pressure ulcers, a history of pressure ulcers, or a wound from a biomedical equipment tech or Patient is bed-confined or a wheelchair-user or Patient requires assistance to transfer/change position No, Skin Screen is Negative Home Abuse/Violence Screen Is your home free of abuse and violence? Yes MOVE! Program Screen Body Mass Index (BMI)= 32.0 [place]: Collection DT Specimen Test Name Result Units Ref Range 12/22/2023 05:30 BLOOD !! HEMOGLOBIN A1C 4.9 % 4.0 - 6.0 !! Indicates COMMENTS AVAILABLE...Refer to Interim Lab Report. [place] Hgb A1C: No data available [place] Hgb A1C: No data available Point of Care Hgb A1C: POC HGB A1C____ No Outpatient Nutrition Screen Body Mass Index (BMI)= 32.0 [place]: Collection DT Specimen Test Name Result Units Ref Range 12/22/2023 05:30 BLOOD !! HEMOGLOBIN A1C 4.9 % 4.0 - 6.0 !! Indicates COMMENTS AVAILABLE...Refer to Interim Lab Report. [place] Hgb A1C: No data available [place] Hgb A1C: No data available Point of [...] require assistance with outpatient visit? No /lilia/ Silvio Jimenez RN-BSN jig hand, Zamudio 1J Signed: 01/05/2024 12:54 01/05/2024 ADDENDUM STATUS: COMPLETED Care provided: Follow up care covered under the COMPACT Act of 2019 Section 201. Supporting clinical documentation: See PPH Intake and Consult notes /lilia/ Silvio Jimenez RN-BSN jig hand, Zamudio 1J Signed: 01/05/2024 12:55 SILVIO JIMENEZ [facility]
--- OUTSIDE RECORDS SUMMARY | 2024-05-04 07:51 | XMS_ITS | Encounter Summary ---
Author Name [facility] [facility] Address [address] [place] [address] Care Team Providers Care Moveman Name Role Phone EMIR GRACIA Primary Care Provider Unavailabl e Selected Encounter This section includes the information on record at [place] for the Encounter. Date/Time Encounter Type Encounter Description Reason Provider Source Jan 08, 2024 08:45 AM GROUP PSYCHOTHERAPY [facility] ICD-10-CM F33.9 Major depressive disorder, recurrent, unspecified TRINITY DORMAN IHLorie Encounter Template Text not used by [place] Assessments - Encounter Diagnoses This section includes the primary and secondary diagnoses documented for the Encounter. Date/Time Primary/Secondary Diagnosis Diagnosis Name Provider Source Jan 08, 2024 11:16 AM PRIMARY Major depressive disorder, recurrent, unspecified JAYLAN DORMAN [facility] Jan 08, 2024 11:16 AM SECONDARY Post-traumatic stress disorder, chronic JAYLAN DORMAN [facility] Plan of Treatment: Future Appointments (+ 6 [...] 20 appointments. The [facility]. Appointment Date/Time Appointment Type Appointme nt Facility Name Jan 09, 2024 08:45 AM AMBULATORY - PSYCHIATRY [facility] Jan 09, 2024 10:00 AM AMBULATORY - PS[facility]CHIATRY [facility] Jan 09, 2024 11:00 AM AMBULATORY - PS[facility]CHIATRY [facility] Jan 12, 2024 08:45 AM AMBULATORY - PS[facility]IATRY [facility] Jan 12, 2024 10:00 AM AMBULATORY - PS[facility]CHIATRY [facility] Jan 12, 2024 11:00 AM AMBULATORY - [facility]ATRY [facility] Jan 13, 2024 08:45 AM AMBULATORY - PS[facility]CHIATRY [facility] Jan 13, 2024 10:00 AM AMBULATORY - [facility]IATRY [facility] Jan 13, 2024 11:00 AM AMBULATORY - [facility]IATRY [facility] Jan 13, 2024 12:00 PM AMBULATORY - PS[facility]IATRY [facility] Jan 14, 2024 08:45 AM AMBULATORY - [facility]ATRY [facility] Jan 14, 2024 10:00 AM AMBULATORY - [facility]IATRY [facility] Jan 14, 2024 11:00 AM AMBULATORY - [facility]ATRY [facility] Jan 14, 2024 12:00 PM AMBULATORY - [facility]ATRY [facility] Jan 15, 2024 08:45 AM AMBULATORY - [facility]IATRY [facility] Jan 15, 2024 10:00 AM AMBULATORY - [facility]ATRY [facility] Jan 15, 2024 11:00 AM AMBULATORY - [facility]RY [facility] Jan 16, 2024 08:45 AM AMBULATORY - [facility]ATRY [facility] Jan 16, 2024 10:00 AM AMBULATORY - [facility]IATRY [facility] Jan 16, 2024 11:00 AM AMBULATORY - PSYCHIATRY [facility] Active, Pending, and Scheduled Orders This [...] comes from all [facility]. Test Date/Time Test Type Test Details Facility Name December 05, 2023 02:27 PM Laboratory - Chemi stry Order BLOOD GAS PANEL FOR ICU ARTERIAL BLOOD STAT WC [facility] December 12, 2023 03:21 PM Laboratory - Chemi stry Order CALPROTECTIN,STOOL STOOL FECES SP ONCE [facility] Dec 21, 2023 04:56 PM Laboratory - Chemi stry Order SALICYLATE SERUM STAT SP [facility] Lab Results: +/- 30 days of the [...] Range Comment Dec 22, 2023 06:44 AM [facility] HEMOGLOBIN A1C Specimen Type: BLOOD Comment: Values [...] Dec 21, 2023 08:58 PM Reporting Lab: [facility] [id number] Performing Lab: [facility] [address] HEMOGLOBIN A1C 4.9 4.0-6.0 Dec 22, 2023 06:44 AM [facility] B 12 Specimen Type: SERUM No comment entered. Ordering Provider: Celeste DUKES Report Released Date/Time: Dec 21, 2023 08:58 PM Reporting Lab: [facility] [id number] Performing Lab: [facility] [address] B 12 381 pg/mL 213-816 Dec 22, 2023 06:44 AM [facility] VIT D 25-OH,TOTAL Specimen Type: SERUM No comment entered. Ordering Provider: Celeste DUKES Report Released Date/Time: Dec 21, 2023 08:58 PM Reporting Lab: [facility] [id number] Performing Lab: [facility] [address] VIT D 25-OH,TOTAL 29 ng/mL 12-50 Dec 22, 2023 06:44 AM [facility] FOLATE Specimen Type: PLASMA No comment entered. Ordering Provider: Celeste DUKES Report Released Date/Time: Dec 21, 2023 08:58 PM Reporting Lab: [facility] [phone] Performing Lab: [facility] [id number] FOLATE 7.1 ng/mL >7.0 Dec 22, 2023 06:44 AM [facility] TSH W/REFLEX TO FREE T4 Specimen Type: PLASMA No comment entered. Ordering Provider: Celeste DUKES Report Released Date/Time: Dec 21, 2023 08:58 PM Reporting Lab: [facility] [id number] Performing Lab: [facility] [address] TSH 0.36 u[IU]/mL 0.35-4.94 Dec 22, 2023 06:44 AM [facility] LIPID PANEL,FASTING Specimen Type: PLASMA No comment entered. Ordering Provider: Celeste DUKES Report Released Date/Time: Dec 21, 2023 08:58 PM Reporting Lab: [facility] [id number] Performing Lab: [facility] [address] CHOLESTEROL 170 mg/dL <199 TRIGLYCERIDE 151 mg/dL H <149 .HDL 34 mg/dL L >50 LDL CALCULATION 106 mg/dL H <99 VLDL CALCULATION 30 mg/dL H <29 NON HDL CHOLESTEROL 136 mg/dL H <129 Dec 21, 2023 09:33 PM [facility] DRUG SCREEN PANEL,URINE Specimen Type: URINE Comment: Presumptive Positive by screen, results not confirmed. Ordering Provider: MONIQUE VÁSQUEZ Report Released Date/Time: Dec 21, 2023 04:56 PM Reporting Lab: [facility] [id number] Performing Lab: [facility] [phone] BARBITURATES Negative Negative AMPHETAMINES Negative Negative COCAINE Negative Negative BENZODIAZEPINES Negative Negative CANNABINOIDS POSITIVE H Negative METHADONE Negative Negative OPIATES Negative Negative PHENCYCLIDINE Negative Negative ETHANOL,URINE Negative Negative DRUG SCREEN CREAT 325.9 mg/dL >20.0 OXYCODONE Negative Negative BUPRENORPHINE Negative Negative TRAMADOL Negative Negative FENTANYL Negative Negative Dec 21, 2023 05:30 PM [facility] ETHANOL Specimen Type: PLASMA No comment entered. Ordering Provider: MONIQUE VÁSQUEZ Report Released Date/Time: Dec 21, 2023 04:56 PM Reporting Lab: [facility] [phone] Performing Lab: [facility] [address] ETHANOL Negative mg/dL NEGATIVE Dec 21, 2023 05:30 PM [facility] COMPREHENSIVE METABOLIC PANEL+MG Specimen Type: PLASMA No comment entered. Ordering Provider: MONIQUE VÁSQUEZ Report Released Date/Time: Dec 21, 2023 04:56 PM Reporting Lab: [facility] [phone] Performing Lab: [facility] [address] CREATININE 1.0 mg/dL 0.5-1.0 UREA NITROGEN 9 [...] 71 >60 Dec 21, 2023 05:30 PM [facility] CBC & DIFF Specimen Type: BLOOD Comment: Automated Differential Performed Ordering Provider: MONIQUE VÁSQUEZ Report Released Date/Time: Dec 21, 2023 04:56 PM Reporting Lab: [facility] [phone] Performing Lab: [facility] [address] WBC 9.50 10*3/uL 4.0-11.0 RBC 4.69 10*6/uL [...] 10*3/uL 0-0.5 ABS BASO 0.07 10*3/uL 0-0.2 IG(META,MYELO,[place] O) 0.3 ABS IMMATURE GRAN 0.03 10*3/uL [...] place. Date/Time Current Smoking Status Comment Latasha itindigo Jan 05, 2024 12:00 PM VA-TOBACCO FORMER USER [facility] Tobacco Use History This section includes a history of the smoking, or tobacco-related health factors, that were collected on or before the date of the Encounter. The data comes from the [place] facility where the Encounter took place. Date/Time Smoking Status/Tobacco Use Comment F acility Jan 05, 2024 12:00 PM [place]-TOBACCO QUIT 5 TO < 15 YRS [facility] Advance Directives: All historical and current Section Date Range: From patient's date of to the date document was created. This section includes ALL of a patient's completed or amended [place] Advance and Rescinded Directives. The entries below indicate that a directive exists for the patient, but an actual copy is not included with this document. The data comes from all [place] facilities. Date Advance Directives Provider Source Jan 05, 2024 ADVANCE DIRECTIVE DISCUSSION SHAHID HURTADO [facility] Encounter Notes: All associated encounter notes This section contains the clinical notes associated to the Encounter. Date/Time Encounter Note(s) Provider Source Jan 08, 2024 08:45 AM MENTAL HEALTH GROU P COUNSELING NOTE: LOCAL TITLE: MH GROUP NOTE STANDARD TITLE: MENTAL HEALTH GROUP COUNSELING NOTE DATE OF NOTE: JAN 08, 2024@08:45 ENTRY DATE: JAN 08, 2024@11:03:26 AUTHOR: JAYLAN DORMAN EXP COSIGNER: URGENCY: STATUS: COMPLETED [facility] Group Title of Group: Emotion Regulation (part 3 of 4) Facilitators: Krishan Dorman, PhD, Date of Group: 01/08/24 Time of Group: 844 Number in Attendance: 3 MODALITY: Group Psychotherapy MEDIUM: discussion/handouts OBJECTIVES: 1) will learn to use What To Do With My Emotions flowchart and how to respond to emotions. 2) will learn skill of Problem Solving to regulate emotions and when to use it. 3) will learn skill of Opposite Action to regulate emotions and when to use it. attended: Group in its entirety The first 15 min of the group consisted of the community meeting with veterans and [facility] staff present. PATIENT EDUCATION: Readiness to learn: Attended session, participated in group discussion Patient Understanding: [place] followed along, nodded head in agreement Informed consent for treatment and limits of confidentiality, as well as limits and benefits of treatment, were reviewed with patient in first session and they indicated understanding and agreement in the first session. For additional information about goals and plan for treatment while in [facility], please refer to veterans individualized treatment plan upon entry to [facility]. is continuing with [facility] programming at this time. Also refer to suicide risk assessment completed upon entrance into [facility] program for comprehensive description of acute and chronic risk level. No change in risk at this time. Plan: Continue with [facility], working toward MH goals. DSM-5 DIAGNOSIS: MDD, rec; PTSD r/t MST /es/ Jaylan Dorman, Ph.D. Clinical Psychologist Signed: 01/08/2024 11:17 JAYLAN DORMAN [facility]
--- OUTSIDE RECORDS SUMMARY | 2024-05-04 07:52 | XMS_ITS | Encounter Summary ---
Author Name [facility] Organization [facility] Address [address] [place] [address] Care Team Providers Care Home Health Clinician Name Role Phone EMIR GRACIA Primary Care Provider Unavailabl e Selected Encounter This section includes the information on record at [place] for the Encounter. Date/Time Encounter Type Encounter Description Reason Provider Source Dec 25, 2023 09:50 AM [facility] H[facility]P IP/OBS SF/LOW [facility] - IND ICD-10-CM F32.9 Major depressive disorder, single episode, unspecified VARICAT,LA SCO P IHE Encounter Template Text not used by [place] Assessments - Encounter Diagnoses This section includes the primary and secondary diagnoses documented for the Encounter. Date/Time Primary/Secondary Diagnosis Diagnosis Name Provider Source Dec 25, 2023 11:38 AM PRIMARY Major depressive disorder, single episode, unspecified VARICAT,LA SCO P [facility] Plan of Treatment: Future Appointments (+ 6 months) and Future Tests (+/- 45 days) The Plan of Treatment section includes future care activities for the patient from all [place] treatmentfacilities. This section includes future appointments and [...] 29, 2023 11:30 AM [facility] Dec 30, 2023 10:30 AM AMBULATORY - MEDICINE LEEANNMindi RAWLS [facility] Dec 30, 2023 01:00 PM AMBULATORY - PSYCHIATRY SH WILI [facility] Jan 04, 2024 02:00 PM AMBULATORY - NONE [facility] Jan 05, 2024 08:45 AM [facility] Jan 05, 2024 10:00 AM [facility] Jan 05, 2024 11:00 AM [facility] Jan 05, 2024 12:00 PM [facility] Jan 05, 2024 12:30 PM [facility] Jan 05, 2024 02:30 PM [facility]UL[facility] Jan 06, 2024 08:45 AM AMBULATORY - PSYCHIATRY RI [facility] Jan 06, 2024 10:00 AM AMBULAT[facility] Jan 06, 2024 11:00 AM AMBULAT[facility] Jan 08, 2024 08:45 AM AMBULAT[facility] Jan 08, 2024 10:00 AM AMBULATORY - PSYCHIATRY RI [facility] Jan 08, 2024 11:00 AM AMBULATORY - PSYCHIATRY RI [facility] Jan 09, 2024 08:45 AM AMBULATORY - PSYCHIATRY RI [facility] Jan 09, 2024 10:00 AM AMBULATORY - PSYCHIATRY RI [facility] Jan 09, 2024 11:00 AM AMBULATORY - PSYCHIATRY RI [facility] Jan 12, 2024 08:45 AM AMBULATORY - PSYCHIATRY RI [facility] Active, Pending, and Scheduled Orders This section includes a listing of several types of active, pending, and scheduled orders, including clinic medications orders, diagnostic test orders, procedure orders and consult orders; where the start date of the order is 45 days before the date of the Encounter or 45 days after the date of theEncounter. The data comes from all [facility]. Test Date/Time Test Type Test Details Facility Name November 19, 2023 12:00 AM Laboratory - Chemi stry Order IGA PLASMA SP ONCE [facility] November 19, 2023 12:00 AM Laboratory - Chemi stry Order TTG AB,IGA SERUM SP ONCE [facility] November 19, 2023 12:00 AM Laboratory - Chemi stry Order ELASTASE-1,PANC STL STOOL FECES SP ONCE [facility] November 19, 2023 12:00 AM Laboratory - Chemi stry Order ENTERIC PATHOGEN PCR PANEL STOOL FECES SP ONCE [facility] November 19, 2023 12:00 AM Laboratory - Microbiology Order OVA & PARASITES FECAL FECES SP ONCE [facility] December 05, 2023 02:27 PM Laboratory - Chemi stry Order BLOOD GAS PANEL FOR ICU ARTERIAL BLOOD STAT WC [facility] December 12, 2023 03:21 PM Laboratory - Chemi stry Order CALPROTECTIN,STOOL STOOL FECES SP ONCE [facility] Dec 21, 2023 04:56 PM Laboratory - Chemi stry Order SALICYLATE SERUM STAT SP [facility] Lab Results: +/- 30 days of the encounter This section includes the Chemistry and Hematology Lab Results on record with [facility] for the patient. Radiology Reports and Pathology Reports are provided separately, in subsequent sections. Lab Results This section contains the Chemistry/Hematology Results that were resulted 30 days before or 30 daysafter the date of the Encounter. Date/Time Source Result Type Result - Unit Interpretation Reference Range Comment Dec 22, 2023 06:[address] [facility] HEMOGLOBIN A1C Specimen Type: BLOOD Comment: Values [...] Dec 21, 2023 08:58 PM Reporting Lab: [facility] [id number] Performing Lab: [facility] [phone] HEMOGLOBIN A1C 4.9 4.0-6.0 Dec 22, 2023 06:[address] [facility] B 12 Specimen Type: SERUM No comment entered. Ordering Provider: Celeste DUKES Report Released Date/Time: Dec 21, 2023 08:58 PM Reporting Lab: [facility] [phone] Performing Lab: [facility] [id number] B 12 381 pg/mL 213-816 Dec 22, 2023 06:[address] [facility] VIT D 25-OH,TOTAL Specimen Type: SERUM No comment entered. Ordering Provider: Celeste DUKES Report Released Date/Time: Dec 21, 2023 08:58 PM Reporting Lab: [facility] [phone] Performing Lab: [facility] [phone] VIT D 25-OH,TOTAL 29 ng/mL 12-50 Dec 22, 2023 06:[address] [facility] FOLATE Specimen Type: PLASMA No comment entered. Ordering Provider: Celeste DUKES Report Released Date/Time: Dec 21, 2023 08:58 PM Reporting Lab: [facility] [phone] Performing Lab: [place] [phone] FOLATE 7.1 ng/mL >7.0 Dec 22, 2023 06:[address] [facility] TSH W/REFLEX TO FREE T4 Specimen Type: PLASMA No comment entered. Ordering Provider: Celeste DUKES Report Released Date/Time: Dec 21, 2023 08:58 PM Reporting Lab: [facility] [phone] Performing Lab: [facility] [phone] TSH 0.36 u[IU]/mL 0.35-4.94 Dec 22, 2023 06:[address] [facility] LIPID PANEL,FASTING Specimen Type: PLASMA No comment entered. Ordering Provider: Celeste DUKES Report Released Date/Time: Dec 21, 2023 08:58 PM Reporting Lab: [facility] [phone] Performing Lab: [facility] [phone] CHOLESTEROL 170 mg/dL <199 TRIGLYCERIDE 151 mg/dL H <149 .HDL 34 mg/dL L >50 LDL CALCULATION 106 mg/dL H <99 VLDL CALCULATION 30 mg/dL H <29 NON HDL CHOLESTEROL 136 mg/dL H <129 Dec 21, 2023 09:[address] [facility] DRUG SCREEN PANEL,URINE Specimen Type: URINE Comment: Presumptive Positive by screen, results not confirmed. Ordering Provider: MONIQUE VÁSQUEZ Report Released Date/Time: Dec 21, 2023 04:56 PM Reporting Lab: [facility] [phone] Performing Lab: [facility] [phone] BARBITURATES Negative Negative AMPHETAMINES Negative Negative COCAINE Negative Negative BENZODIAZEPINES Negative Negative CANNABINOIDS POSITIVE H Negative METHADONE Negative Negative OPIATES Negative Negative PHENCYCLIDINE Negative Negative ETHANOL,URINE Negative Negative DRUG SCREEN CREAT 325.9 mg/dL >20.0 OXYCODONE Negative Negative BUPRENORPHINE Negative Negative TRAMADOL Negative Negative FENTANYL Negative Negative Dec 21, 2023 05:[address] [facility] ETHANOL Specimen Type: PLASMA No comment entered. Ordering Provider: MONIQUE VÁSQUEZ Report Released Date/Time: Dec 21, 2023 04:56 PM Reporting Lab: [facility] [phone] Performing Lab: [facility] [phone] ETHANOL Negative mg/dL NEGATIVE Dec 21, 2023 05:[address] [facility] COMPREHENSIVE METABOLIC PANEL+MG Specimen Type: PLASMA No comment entered. Ordering Provider: MONIQUE VÁSQUEZ Report Released Date/Time: Dec 21, 2023 04:56 PM Reporting Lab: [facility] [phone] Performing Lab: [facility] [phone] CREATININE 1.0 mg/dL 0.5-1.0 UREA NITROGEN 9 [...] >60 Dec 21, 2023 05:[address] [facility] CBC & DIFF Specimen Type: BLOOD Comment: Automated Differential Performed Ordering Provider: MONIQUE VÁSQUEZ Report Released Date/Time: Dec 21, 2023 04:56 PM Reporting Lab: [facility] [phone] Performing Lab: [facility] [phone] WBC 9.50 10*3/uL 4.0-11.0 RBC 4.69 10*6/uL [...] 10*3/uL 0-0.5 ABS BASO 0.07 10*3/uL 0-0.2 IG(META,MYELO,CA O) 0.3 ABS IMMATURE GRAN 0.03 10*3/uL 0-0.1 December 05, 2023 02:[address] [facility] EXTRA RED TUBE Specimen Type: SERUM No comment entered. Ordering Provider: NELSON RONQUILLO Report Released Date/Time: December 05, 2023 02:39 PM Reporting Lab: [facility] [phone] Performing Lab: [facility] [phone] EXTRA RED TUBE RECEIVED December 05, 2023 02:[address] [facility] LACTIC ACID Specimen Type: PLASMA No comment entered. Ordering Provider: NELSON RONQUILLO Report Released Date/Time: December 05, 2023 02:27 PM Reporting Lab: [facility] [phone] Performing Lab: [facility] [phone] LACTIC ACID 1.7 mmol/L 0.5-2.2 December 05, 2023 02:[address] [facility] PROTHROMBIN TIME/INR Specimen Type: PLASMA No comment entered. Ordering Provider: NELSON RONQUILLO Report Released Date/Time: December 05, 2023 02:27 PM Reporting Lab: [facility] [phone] Performing Lab: [facility] [phone] .INR 1.2 H 0.8-1.1 .PT 13.5 s H 9.4-12.5 December 05, 2023 02:[address] [facility] CODE BLUE(LYTE,CR,UN,GL,MG,CA,PHOS,TROP) Specimen Type: PLASMA No comment entered. Ordering Provider: NELSON RONQUILLO Report Released Date/Time: December 05, 2023 02:27 PM Reporting Lab: [facility] [phone] Performing Lab: [facility] [phone] CREATININE 1.1 mg/dL H 0.5-1.0 UREA NITROGEN 10 mg/dL 7-20 GLUCOSE 101 mg/dL H 70-100 SODIUM 138 mmol/L 136-145 POTASSIUM 3.8 mmol/L 3.5-5.1 CHLORIDE 107 mmol/L 98-107 CO2 22 mmol/L 22-29 CALCIUM 9.3 mg/dL 8.4-10.2 PHOSPHORUS 3.5 mg/dL 2.3-4.7 MAGNESIUM 1.9 mg/dL 1.6-2.6 ANION GAP 9 mmol/L 5-15 .CREAT EGFR(CKD-EPI) 64 >60 TROPONIN I, HS <3 <14 December 05, 2023 02:[address] [facility] EXTRA GOLD GEL TUBE Specimen Type: SERUM No comment entered. Ordering Provider: NELSON RONQUILLO Report Released Date/Time: December 05, 2023 02:39 PM Reporting Lab: [facility] [phone] Performing Lab: [facility] [phone] EXTRA GOLD GEL TUBE RECEIVED December 05, 2023 02:[address] [facility] CBC Specimen Type: BLOOD No comment entered. Ordering Provider: NELSON RONQUILLO Report Released Date/Time: December 05, 2023 02:27 PM Reporting Lab: [facility] [phone] Performing Lab: [facility] [phone] WBC 11.50 10*3/uL H 4.0-11.0 RBC 4.83 10*6/uL 4.0-5.4 HGB 13.6 g/dL 11.5-16 HCT 39.8 34.5-48 MCV 82.4 fL 80-100 MCH 28.2 pg 27-33 MCHC 34.2 g/dL 32.0-37.5 PLT 443 10*3/uL H 150-400 MPV 9.1 fL 7.4-10.4 RDW 12.5 11.5-14.5 December 05, 2023 02:[address] [facility] POC ABG/ELECTROLYTES Specimen Type: VENOUS BLOOD Comment: FIO2 = 40% Patient Temp: 36.6 C Sample Type = VENOUS Ordering Provider: ULYSSES ELDER Report Released Date/Time: December 06, 2023 08:24 PM Reporting Lab: [facility] [phone] Performing Lab: [facility] [phone] POC PH 7.382 7.31-7.41 POC PCO2 35.0 [...] Height Weight Body Mass Index Source Dec 25, 2023 04:29 PM 98.9 87 117/[address] [facility] Dec 25, 2023 06:18 AM 98.1 96 115/[address] [facility] Advance Directives: All historical and current Section Date Range: From patient's date of to the date document was created. This section includes ALL of a patient's completed or amended [place] Advance and Rescinded Directives. The entries below indicate that a directive exists for the patient, but an actual copy is not included with this document. The data comes from all [place] facilities. Date Advance Directives Provider Source Jan 05, 2024 ADVANCE DIRECTIVE DISCUSSION SHAHID HURTADO [facility] Encounter Notes: All associated encounter notes This section contains the clinical notes associated to the Encounter. Date/Time Encounter Note(s) Provider Source Dec 25, 2023 09:51 AM PSYCHIATRY E & M N OTE: LOCAL TITLE: PSYCHIATRIC EVALUATION & MANAGEMENT STANDARD TITLE: PSYCHIATRY E & M NOTE DATE OF NOTE: DEC 25, 2023@09:51 ENTRY DATE: DEC 25, 2023@09:52:05 AUTHOR: NELSON MENA COSIGNER: URGENCY: STATUS: COMPLETED PSYCHIATRIC EVALUATION & MANAGEMENT Has ADDENDA PSYCHIATRIC EVALUATION AND MANAGEMENT FOLLOW UP VISIT Duration: 30 minutes Time spent performing psychotherapy services: 16-30 minutes INTERVAL HISTORY: Nursing notes reviewed. No acute safety or behavioral concerns overnight. Patient was seen this morning and noted she took one dose of PRN quetiapine yesterday early evening for anxiety which she endorsed helped. She also noted difficulties falling asleep last night due to reliving work-related trauma and anxiety for which she took trazadone and quetiapine PRN at that time and endorsed that they helped her eventually. She endorses ongoing drowsiness and now increasing appetite this morning which she attributes to the quetiapine. She endorses feeling a little better this morning, and during our conversation she appeared to have more eye contact and an improved affect from previous days. MEDICATION COMPLIANCE: compliant SIDE EFFECTS: drowsiness, anxiety, increased appetite CURRENT MEDICATIONS: Active Inpatient Medications (including Supplies): Active Inpatient Medications Status 1) ACETAMINOPHEN (INPT) TAB 650MG PO Q4H PRN For Pain ACTIVE MAX DOSE of acetaminophen is 4000mg in 24 hours. 2) ALBUTEROL INHL,ORAL 1 PUFF INHL QID PRN for ACTIVE shortness of breath 3) ATORVASTATIN TAB 40MG PO QHS ACTIVE 4) DULOXETINE CAP,EC 60MG PO QPM ACTIVE 5) FEXOFENADINE TAB 180MG PO BID ACTIVE 6) MARINE LIPID (FISH OIL) CAP,ORAL 1000MG PO AM ACTIVE 7) NICOTINE GUM,CHEWABLE 2 MG PO Q1H PRN FOR URGE TO ACTIVE USE TOBACCO - CHEW UNTIL SOFT, THEN PARK BETWEEN CHEEK AND GUM 8) ONDANSETRON TAB 4MG PO Q6H PRN ACTIVE 9) QUETIAPINE TAB 200MG PO QHS ACTIVE 10) QUETIAPINE TAB 25MG PO TID PRN for anxiety ACTIVE 11) TRAZODONE TAB 50MG PO QHS PRN Instructions too long. ACTIVE See order details for full text. MOST RECENT VITALS: BLOOD PRESSURE: High: 125/85 (DEC 24, 2023@18:26) Low: 115/77 (DEC 25, 2023@06:18) PAIN: High: 2 (DEC 24, 2023@06:08) Low: 0 (DEC 24, 2023@18:26) PULSE: High: 96 (DEC 25, 2023@06:18) Low: 73 (DEC 24, 2023@06:08) RESPIRATION: High: 18 (DEC 24, 2023@06:08) Low: 18 (DEC 24, 2023@06:08) TEMPERATURE: High: 99.4 (DEC 24, 2023@18:26) Low: 98.0 (DEC 24, 2023@06:08) WEIGHT: High: 206.0 (DEC 25, 2023@06:18) Low: 206.0 (DEC 25, 2023@06:18) MENTAL STATUS EXAM: General: Cooperative, no acute distress, sitting on bed Eye Contact: moderate, improved from yesterday Psychomotor Activity: WNL (Within normal limits) Abnormal Involuntary Movements: None Speech: Regular rate and rhythm, normal volume Mood: a little better today Affect: dysphoric Thought Process: Linear, logical, goal oriented Thought Content: Denies SI (Suicidal Ideation), HI(Homicidal Ideation) Perceptual disturbances: No AH(Auditory Hallucinations),VH(Visual Hallucinations), or delusions Insight: Fair Judgment: Fair Attention/Concentration: Intact for exam purposes Musculoskeletal: Muscle strength/tone intact for exam purposes. SUICIDE RISK ASSESSMENT: RISK FACTORS: Hx of attempt, financial stress, impulsive behaviors, gambling, limited support system, ongoing SI PROTECTIVE FACTORS:Help seeking behavior, children, employment+ school PERCEIVED ACUTE SUICIDE RISK: High acute - Immediate intervention is needed for hospitalization, direct observation. PERCEIVED CHRONIC SUICIDE RISK: Intermediate Chronic - Some chronic risk factors but also has protective factors, coping skills, articulates reason for living. 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 Today's Changes: -Will be at full dose quetiapine this evening. If she feels safe and that the medications are helping appropriately we plan to discharge tomorrow 12/25. Medications:continue duloxetine 60mg po qhs, increase quetiapine to 200mg po QHS, trazodone 50mg po QHS PRN, quetiapine 25mg po PRN -Continue full, voluntary inpatient hospitalization -Close observation for safety as a precaution while on inpatient psychiatry -Supportive and educational counseling undertaken -Encourage participation in group and therapeutic activities on the diana -Monitor patient for evidence of improvement versus complications. TREATMENT PLAN / EDUCATION / SAFETY Treatment goals are 1) to minimize and manage medication side effects, 2) decrease problematic symptoms and optimize wellness. Patient's overall Mental Health Treatment reviewed. Patient continues to benefit from psychiatric medications as documented. The patient has been told the purpose and side effects of the prescribed psychiatric medications. Supportive therapy to optimize wellness, including medications, will be done as indicated during visits by psychiatrist, and RN. Patient agrees to contact this clinic with any concerns prior to next appointment. Patient is aware of additional MH services that are available, including emergency room and [facility] options. This plan will be reviewed yearly with patient, or sooner if needs change. This plan was discussed with the patient who acknowledges agreement and understanding. Donnell Khalil, MS3 /lilia/ NELSON MENA Staff Psychiatrist Signed: 12/25/2023 11:38 12/25/2023 ADDENDUM STATUS: COMPLETED Patient was seen with the medical student today. Case discussed and supervision conducted. I agree with the assessment and plan in the attached medical students note /lilia/ NELSON MENA Staff Psychiatrist Signed: 12/25/2023 11:[address] [facility]
--- OUTSIDE RECORDS SUMMARY | 2024-05-04 07:52 | XMS_ITS ---
[facility] HOSPITALIZ[facility] Encounter Summary Created on: May 04, 2024 QUINTIN ZAVALA : 1980 Sex: Female Author Name [facility] [employer] [facility] Address [address] [place] [address] Care Team Providers Care Bench Inspector Name Role Phone EMIR GRACIA Primary Care Provider Unavailabl e Selected Encounter This section includes the information on record at CT for the Encounter. Date/Time Encounter Type Encounter Description Reason Pro vider Source Dec 21, 2023 08:55 PM Inpatient Visit HOSPITALIZATION ICD-10-CM Z72.6 Gambling and betting VARICAT,FRANC KVNG P IHE Encounter Template Text not used by CT Assessments - Encounter Diagnoses This section includes the primary and secondary diagnoses documented for the Encounter. Date/Time Primary/Secondary Diagnosis Diagnosis Name Provider Source Dec 29, 2023 09:50 AM Diagnosis for Length of Stay Major depressive disorder, recurrent, moderate [facility] Dec 29, 2023 09:50 AM SECONDARY Allergy, unspecified, initial encounter [facility] Dec 29, 2023 09:50 AM SECONDARY Gambling and betting [facility] Dec 29, 2023 09:50 AM SECONDARY Generalized anxiety disorder [facility] Dec 29, 2023 09:50 AM SECONDARY Hyperlipidemia, unspecified [facility] Dec 29, 2023 09:50 AM SECONDARY Post-traumatic stress disorder, chronic [facility] Dec 29, 2023 09:50 AM SECONDARY Suicidal ideations [facility] Plan of Treatment: Future Appointments (+ 6 months) and Future Tests (+/- 45 days) The Plan of Treatment section includes future care activities for the [facility] This section includes future appointments and future orders which are active, pending or scheduled. Future Appointments This section includes appointments that were scheduled to occur 6 months from the date of the Encounter, up to a maximum of 20 appointments. The data comes from all [facility] facilities. Appointment Date/Time Appointment Type Appointme nt Facility Name Dec 29, 2023 11:30 AM AMBULATORY - [place] [facility] Dec 30, 2023 10:30 AM AMBULATORY - MEDICINE LEEANN OPEE [facility] Dec 30, 2023 01:00 PM AMBULATORY - PSYCHIATRY SH MICHAELOPEE [facility] Jan 04, 2024 02:00 PM AMBUL[place]ORY - NONE [place] [facility] Jan 05, 2024 08:45 AM [facility] Jan 05, 2024 10:00 AM [facility] Jan 05, 2024 11:00 AM [facility] Jan 05, 2024 12:00 PM AMBULAT[place] [facility] Jan 05, 2024 12:30 PM AMBULATORY [place] [facility] Jan 05, 2024 02:30 PM AMBULATORY [place] [facility] Jan 06, 2024 08:45 AM [facility] Jan 06, 2024 10:00 AM AMBULATORY [place] [facility] Jan 06, 2024 11:00 AM [facility] Jan 08, 2024 08:45 AM [facility] Jan 08, 2024 10:00 AM AMBULAT[place] [facility] Jan 08, 2024 11:00 AM AMBULATORY [place] [facility] Jan 09, 2024 08:45 AM AMBULATORY [place] [facility] Jan 09, 2024 10:00 AM AMBULATORY [place] [facility] Jan 09, 2024 11:00 AM AMBULATORY - [place] [facility] Jan 12, 2024 08:45 AM [facility] Active, Pending, and Scheduled Orders This section includes a listing of several types of active, pending, and scheduled orders, including clinic medications orders, diagnostic test orders, procedure orders and consult orders; where the start date of the order is 45 days before the date of the Encounter or 45 days after the date of theEncounter. The data comes from all [place] treatment facilities. Test Date/Time Test Type Test Details Facility Name November 19, 2023 12:00 AM Laboratory - Chemi stry Order ELASTASE-1,PANC STL STOOL FECES SP ONCE [facility] November 19, 2023 12:00 AM Laboratory - Chemi stry Order IGA PLASMA SP ONCE [facility] November 19, 2023 12:00 AM Laboratory - Chemi stry Order TTG AB,IGA SERUM SP ONCE [facility] November 19, 2023 12:00 AM Laboratory - Chemi stry Order ENTERIC PATHOGEN PCR PANEL STOOL FECES SP ONCE [facility] November 19, 2023 12:00 AM Laboratory - Microbiology Order OVA & PARASITES FECAL FECES SP ONCE [facility] December 05, 2023 02:27 PM Laboratory [...] and Hematology Lab Results on record with CT for the patient. Radiology Reports and Pathology [...] actually be between 8.7 and 9.3. Ref: [email or web address] Ordering Provider: Celeste CARRIZALES Report Released Date/Time: Dec 21, 2023 08:58 PM Reporting Lab: [facility] [phone] Performing Lab: [facility] [phone] HEMOGLOBIN A1C 4.9 4.0-6.0 Dec 22, 2023 06:44 AM [facility] B 12 Specimen Type: SERUM No comment entered. Ordering Provider: Celeste CARRIZALES Report Released Date/Time: Dec 21, 2023 08:58 PM Reporting Lab: [facility] [phone] Performing Lab: [facility] [address] B 12 381 pg/mL 213-816 Dec 22, 2023 06:44 AM [facility] VIT D 25-OH,TOTAL Specimen Type: SERUM No comment entered. Ordering Provider: Celeste CARRIZALES Report Released Date/Time: Dec 21, 2023 08:58 PM Reporting Lab: [facility] [phone] Performing Lab: [facility] [address] VIT D 25-OH,TOTAL 29 ng/mL 12-50 Dec 22, 2023 06:44 AM [facility] FOLATE Specimen Type: PLASMA No comment entered. Ordering Provider: Celeste CARRIZALES Report Released Date/Time: Dec 21, 2023 08:58 PM Reporting Lab: [facility] [phone] Performing Lab: [facility] [phone] FOLATE 7.1 ng/mL >7.0 Dec 22, 2023 06:44 AM [facility] TSH W/REFLEX TO FREE T4 Specimen Type: PLASMA No comment entered. Ordering Provider: Celeste CARRIZALES Report Released Date/Time: Dec 21, 2023 08:58 PM Reporting Lab: [facility] [phone] Performing Lab: [facility] [phone] TSH 0.36 u[IU]/mL 0.35-4.94 Dec 22, 2023 06:44 AM [facility] LIPID PANEL,FASTING Specimen Type: PLASMA No comment entered. Ordering Provider: Celeste CARRIZALES Report Released Date/Time: Dec 21, 2023 08:58 PM Reporting Lab: [facility] [phone] Performing Lab: [facility] [phone] CHOLESTEROL 170 mg/dL <199 TRIGLYCERIDE 151 mg/dL H <149 .HDL 34 mg/dL L >50 LDL CALCULATION 106 mg/dL H <99 VLDL CALCULATION 30 mg/dL H <29 NON HDL CHOLESTEROL 136 mg/dL H <129 Dec 21, 2023 09:33 PM [facility] DRUG SCREEN PANEL,URINE Specimen Type: URINE Comment: Presumptive Positive by screen, results not confirmed. Ordering Provider: MONIQUE VÁSQUEZ Report Released Date/Time: Dec 21, 2023 04:56 PM Reporting Lab: [facility] [phone] Performing Lab: [facility] [phone] BARBITURATES Negative Negative AMPHETAMINES Negative Negative COCAINE [...] Reporting Lab: [facility] [phone] Performing Lab: [facility] [phone] ETHANOL Negative mg/dL NEGATIVE Dec 21, 2023 05:30 PM [facility] COMPREHENSIVE METABOLIC PANEL+MG Specimen Type: PLASMA No comment entered. Ordering Provider: MONIQUE VÁSQUEZ Report Released Date/Time: Dec 21, 2023 04:56 PM Reporting Lab: [facility] [phone] Performing Lab: [facility] [phone] CREATININE 1.0 mg/dL 0.5-1.0 UREA NITROGEN 9 [...] Reporting Lab: [facility] [phone] Performing Lab: [facility] [address] WBC 9.50 10*3/uL 4.0-11.0 RBC 4.69 10*6/uL [...] 10*3/uL 0-0.5 ABS BASO 0.07 10*3/uL 0-0.2 IG(META,MYELO,MO O) 0.3 ABS IMMATURE GRAN 0.03 10*3/uL 0-0.1 December 05, 2023 02:20 PM [facility] EXTRA RED TUBE Specimen Type: SERUM No comment entered. Ordering Provider: NESLON RONQUILLO Report Released Date/Time: December 05, 2023 02:39 PM Reporting Lab: [facility] [phone] Performing Lab: [facility] [phone] EXTRA RED TUBE RECEIVED December 05, 2023 02:20 PM [facility] LACTIC ACID Specimen Type: PLASMA No comment entered. Ordering Provider: NELSON RONQUILLO Report Released Date/Time: December 05, 2023 02:27 PM Reporting Lab: [facility] [phone] Performing Lab: [facility] [phone] LACTIC ACID 1.7 mmol/L 0.5-2.2 December 05, 2023 02:20 PM [facility] PROTHROMBIN TIME/INR Specimen Type: PLASMA No comment entered. Ordering Provider: NELSON RONQUILLO Report Released Date/Time: December 05, 2023 02:27 PM Reporting Lab: [facility] [phone] Performing Lab: [facility] [phone] .INR 1.2 H 0.8-1.1 .PT 13.5 s H 9.4-12.5 December 05, 2023 02:20 PM [facility] EXTRA GOLD GEL TUBE Specimen Type: SERUM No comment entered. Ordering Provider: NELSON RONQUILLO Report Released Date/Time: December 05, 2023 02:39 PM Reporting Lab: [facility] [phone] Performing Lab: [facility] [phone] EXTRA GOLD GEL TUBE RECEIVED December 05, 2023 02:20 PM [facility] CODE BLUE(LYTE,CR,UN,GL,MG,CA,PHOS,TROP) Specimen Type: PLASMA No comment entered. Ordering Provider: NELSON RONQUILLO Report Released Date/Time: December 05, 2023 02:27 PM Reporting Lab: [facility] [phone] Performing Lab: [facility] [phone] CREATININE 1.1 mg/dL H 0.5-1.0 UREA NITROGEN 10 mg/dL 7-20 GLUCOSE 101 mg/dL H 70-100 SODIUM 138 mmol/L 136-145 POTASSIUM 3.8 mmol/L 3.5-5.1 CHLORIDE 107 mmol/L 98-107 CO2 22 mmol/L 22-29 CALCIUM 9.3 mg/dL 8.4-10.2 PHOSPHORUS 3.5 mg/dL 2.3-4.7 MAGNESIUM 1.9 mg/dL 1.6-2.6 ANION GAP 9 mmol/L 5-15 .CREAT EGFR(CKD-EPI) 64 >60 TROPONIN I, HS <3 <14 December 05, 2023 02:20 PM [facility] CBC Specimen Type: BLOOD No comment entered. Ordering Provider: NELSON RONQUILLO Report Released Date/Time: December 05, 2023 02:27 PM Reporting Lab: [facility] [address] Performing Lab: [facility] [phone] WBC 11.50 10*3/uL H 4.0-11.0 RBC 4.83 10*6/uL 4.0-5.4 HGB 13.6 g/dL 11.5-16 HCT 39.8 34.5-48 MCV 82.4 fL 80-100 MCH 28.2 pg 27-33 MCHC 34.2 g/dL 32.0-37.5 PLT 443 10*3/uL H 150-400 MPV 9.1 fL 7.4-10.4 RDW 12.5 11.5-14.5 December 05, 2023 02:18 PM [facility] POC ABG/ELECTROLYTES Specimen Type: VENOUS BLOOD Comment: FIO2 = 40% Patient Temp: 36.6 C Sample Type = VENOUS Ordering Provider: ULYSSES ELDER Report Released Date/Time: December 06, 2023 08:24 PM Reporting Lab: [facility] [phone] Performing Lab: [facility] [address] POC PH 7.382 7.31-7.41 POC PCO2 35.0 [...] Source Dec 21, 2023 11:33 PM 4 [facility] Dec 21, 2023 10:55 PM 5 [facility] Dec 21, 2023 04:11 PM 97.7 84 137/88 16 98 4 [facility] Advance Directives: All historical and current Section Date Range: From patient's date of to the date document was created. This section includes ALL of a patient's completed or amended CT Advance and Rescinded Directives. The entries below indicate that a directive exists for the patient, but an actual copy is not included with this document. The data comes from all CT facilities. Date Advance Directives Provider Source Jan 05, 2024 ADVANCE DIRECTIVE DISCUSSION SHAHID HURTADO [facility] Encounter Notes: All associated encounter notes This section contains the clinical notes associated to the Encounter. Date/Time Encounter Note(s) Provider Source Dec 29, 2023 09:50 AM DISCHARGE SUMMARY: LOCAL TITLE: Discharge Summary STANDARD TITLE: DISCHARGE SUMMARY DICT DATE: DEC 25, 2023@16:02 ENTRY DATE: DEC 25, 2023@16:02:53 DICTATED BY: NELSON CORONA ATTENDING: NELSON CORONA URGENCY: routine STATUS: COMPLETED Mental Health Discharge Summary DRAFT UNTIL SIGNED BY ATTENDING Admit Date: Dec Discharge Date: Dec PRINCIPAL DISCHARGE DIAGNOSES: Present on Admission(POA) Y - Yes, present at the time of inpatient admission. N - No, not present at the time of inpatient admission. W - Clinically undetermined, provider is unable to clinically determine whether condition was present on admission or not. 1. Major depressive disorder, recurrent, moderate severity POA: Y 2. Posttraumatic stress disorder, chronic POA: Y REASON FOR ADMISSION: per Dr Carrizales's h/p:Ms. Zavala was notably dypshoric on encounter, blunted on affect. Ms. Gomez said that there is nothing left in her life. No point in being here anymore. She shared numerous stressors with this investment underwriter including trouble with finances, having a soon to be ex- (who cheated on her for 17 years), losing kids (one son lives with his girlfriend, the other chose to live with ex-), and being overwhelmed with school and worked. 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 She said that she wants to leave but can't because she needs the money. Also reported being in school for nursing and can't leave that otherwise she will lose GI benefits. She additionally said that her family doesn't speak to her anymore and her girlfriend broke up with her 1.5 weeks ago. She also described being in constant pain from chronic pancreatitis. Ms. Gomez described have increased depressive, anxiety, ptsd symptoms . Explained that depressive symptoms have been worse over the past couple weeks including SI. Reported decreased motivation, and increased apathy. Said she's falling behind on her school work because of this. In regards to her anxiety, she reported racing thoughts, inability to sit still, trouble sleeping-has been taking 10mg THC gummies qhs to help with sleep for the past few months. For her PTSD sxs, she reports worsening and constant flashbacks, nightmares. Denied any AVH. Additionally, she shared that she has a gambling addiction-lost $30,000 in a year and is $40,000 in debt. Said she last gambled about 4 weeks ago but now has no money to spend. Ms. Bustamanteaid that today her Si was at the point where she wanted to follow through for the first time. Described gathering medications together to take but ended up not following through, calling her soon to beex- who had her seek out care.She said she stopped from following through knowing that her family or coworkers would find her. When asked about ongoing SI, Ms. Zavala said If I had a pill that would kill me I would take. This investment underwriter discussed the idea of inpatient admission and she said that she didn't care. HOSPITAL COURSE: The patient was voluntarily admitted to inpatient psychiatry. She expressed feeling that she could remain safe on the zamudio. With some redirection she appeared indeed to be motivated for treatment. As advised she made the decision to withdraw from her schoolwork. During this time her ex- also agreed to let her temporarily stay with him. Due to her history of poor antidepressant response and tachyphylaxis, we elected to augment her duloxetine which seemed to be useful for pain, with a second-generation antipsychotic, quetiapine. She was also motivated to start PPH. She was interviewed and found to be an eligible candidate. She was given the PPH intake and start date. The patient was assigned a high risk flag advised suicide prevention. She was visited regularly by her while on the zamudio. After the first 1 to 2 days of admission she no longer had suicidal ideations. She was visited on multiple occasions by her ex-. Initially discharge was planned for Friday, however due to the patient's anxiety in anticipation of suicidal ideations, along with her family being unavailable, which would lead her to be alone in the house for 2 days, we elected to continue treatment and postpone the discharge until the following Friday. She appeared to have a smooth course over the following weekend. Quetiapine was further titrated and optimized. She showed an apparent improvement in mood. She emphatically denied having further suicidal ideations. As planned we discharged her on the morning of December 28 when she was collected by her family and would have her PPH screening later that day from home. Mental Status Exam: General: Alert, Cooperative Ambulation: Ambulatory without support Dress: Casual Grooming: Clean Eye Contact: good Psychomotor Activity: Normal Abnormal Involuntary Movements: Absent Speech: Latency: Normal Rate: Normal Other: Mood: Good Affect: Regulated Thought Process: Goal-directed Thought Content: Normal Delusions: No Suidical Ideations: No No Homicidal Ideations: No No Perceptual Disturbance: None Insight: Fair Judgment: Intact Sensorium: Clear Attention: Normal Suicide Risk Assessment Note Past Suicidal Behavior 1. ATTEMPTS: Has the patient ever attempted suicide? No Has the patient attempted suicide on multiple occasions? No Number of times and approximate month/year of most recent suicide attempt? Once, 1997 Methods used to attempt suicide: Unknown Desire and Ideation 2. DESIRE: Does the patient think about wanting to be ? No 3. IDEATION: Has the patient been having thoughts of suicide? No If yes, frequency? (e.g. hourly, fleeting, circumstantial...) Plans and Preparations 4. PLANS: Does the patient have a suicide plan? No If yes, what is it? (How specific? When?) 5. MEANS: Does the patient have access to the means in their plan? No 6. PREPARATION: Has the patient made preparations to enact their plan? (e.g. buying pills) No Comments: 7. INTENT: Patient's rating of their intent to act on their suicidal thoughts (0=none, 10=highest) 0 Other Related Indicators 8. MENTAL HEALTH DIAGNOSIS (MH): Has the patient been diagnosed with a psychiatric condition (including substance use disorders)? Yes 9. IMPULSIVE COPING: Does the patient have a history of coping with negative feelings impulsively? No 10. SELF-INJURY: Does the patient have a history of non-suicidal self-directed violence (e.g. cutting)? No If yes, how recently? Typical method (e.g. cutting...)? 11. RELATED THOUGHTS: Has the patient been feeling hopeless? Has the patient been feeling like a burden on/liability to others? No Does the patient have an unmet need to feel connected to others? No 12. Over the PAST WEEK: a. Has patient experienced life-altering stressors? (e.g. job loss, )? Yes b. Has patient withdrawn from valued social activities or relationships? Yes c. Has the patient had episodes of severe emotional distress? Yes d. Has the patient had problems sleeping or been having nightmares? Yes e. Has the patient been increasingly irritable and agitated? No Risk Determination: Acute: Low Chronic: Intermediate Addressed means reduction: [place] denies immediate access to firearms. [place] was educated on concerns specific to ready access to firearms: Many attempts occur with little planning during a crisis, reducing access to lethal means saves lives, access to firearms is a risk factor for suicide. DISCHARGE MEDICATIONS: See [facility] Med Instruction/Reconciliation for accurate listing. Is the patient prescribed multiple scheduled antipsychotic medications: No What is the number of antipsychotic medications prescribed? 1 What is the justification for multiple antipsychotic medications? Not applicable DISCHARGE PLANS: Follow-up appointment made with [facility]. Medication prescriber following discharge will be To be determined at this time; The patient was discharged to Ex-'s home. Patient instructed to take medications as prescribed and to follow up with their appointments. The patient was advised to avoid the use of any alcohol or illicit drugs. The patient is to come to the Urgent Care or call 911 if they do not feel safe. /es/ NELSON CORONA Staff Psychiatrist Signed: 12/29/2023 09:36 Receipt Acknowledged By: 12/29/2023 09:46 /es/ FRANCESCA DEMPSEY CLINICAL [employer] A [employer]IONAL TRUCK DRIVER 12/29/2023 14:34 /es/ LAINA STOREY, PHD, ABPP CLINICAL PSYCHOLOGIST 12/29/2023 12:24 /es/ TROY Grace Research Phlebotomist NELSON CORONA [facility] Dec 29, 2023 09:08 AM EDUCATION DISCHARGE NOTE: LOCAL TITLE: EDUCATION NURSING DISCHARGE INSTRUCTIONS STANDARD TITLE: EDUCATION DISCHARGE NOTE DATE OF NOTE: DEC 29, 2023@09:08 ENTRY DATE: DEC 29, 2023@09:08:24 AUTHOR: LEXI ORTIZ: URGENCY: STATUS: COMPLETED IMPORTANT PHONE NUMBERS: IF YOU HAVE A LIFE THREATENING EMERGENCY CALL 911 If you have questions about anything related to your inpatient care at the [facility] or your future care in the [facility], call the Call Center or After Hour numbers listed below. If you receive care at another [place] facility or with a community provider, you will need to call them for questions about your future care. -Call Center Friday-Friday, 7:30-4:30 at [phone] or Toll Free -After Hours- toll-free -Outpatient Pharmacy - -Verification of Appointments for the following month - *'S CRISIS LINE NUMBER IS (TALK)* Discharge from Inpatient Mental Health Written education reviewed and given on: Other diagnosis/instructions: safety Patient and/or other caregiver has had an opportunity to participate in the development of the discharge plan. The patient had an opportunity to ask questions. While in the hospital you were treated for: SI/depression Primary Care Team: Primary Care Team: MIRA PACT DIAMONDS Primary Care Provider: EMIR GRACIA No Associate Provider Assigned. Attending Physician: NELSON CORONA You are being discharged to: Home Phone number you can be contacted at for the next 2 weeks: [phone] Your diet is Regular Activity: No restrictions When you go home you will need: Treatments: None Supplies: Medication Continuing care needs: If you receive care at [facility] you will need to call the Primary Care Call Center number at [phone]. If you receive care at another [place] facility or community provider, you will need to call them to arrange your follow up care. Future appointments: 12/29/2023 11:30 [facility] INPATIENT APPOINTMENT 12/30/2023 13:00 [facility] INPATIENT APPOINT[facility] 01/13/2024 14:00 [facility] INPATIENT APPOINTMENT 03/03/2024 10:30 [facility] INPATIENT APPOINTMENT A copy of these instructions has been given to: Patient IM - Immunizations ADMINISTERED Immunization Series Date Facility Reaction Info COVID-19 ([employer]), VECTOR-NR, R* 4 10/15/2021 [facility]* COVID-19 ([employer]), VECTOR-NR, R* 3 09/01/2021 Family [facility]* COVID-19 ([employer]), VECTOR-NR, R* 2 12/28/2020 [facility]* COVID-19 ([employer]), MRNA, LNP-S, * 1 07/12/2020 [facility]* TD (ADULT) 03/06/2017 [facility]* TD (ADULT), 5 LF TETANUS TOXOID,* 03/06/2017 [facility] [facility] TDAP 07/21/2006 [facility] - * CONTRAINDICATED No data available REFUSED ======= Immunization Date Facility Info PNEUMOCOCCAL CONJUGATE, UNSPECIF* 03/27/2023 [facility] * <C> ZOSTER RECOMBINANT 03/27/2023 [facility] * <C> <C> See the Detailed Immunizations Health Summary Component[DIM] for Comments * Value is truncated; see the Detailed Immunizations Health Summary Component[DIM] for complete text Copy of PROVIDERS DISCHARGE ORDERS Discharge Order : Discharge Date: Dec 29, 2023 Discharge To Home . Discharge Type: Hospital Discharge . DC Summary Dictated: NO Dictating Provider: NELSON CORONA Attending Physician: NELSON CORONA Discharge Diagnosis: Major depressive disorder, recurrent, moderate severity Discharge Condition: Fair Discharge Order : Restrictions/Instructions Driving: No Restriction . Dietary Restriction: None . Wound Condition: N/A Special Transport Needs: None Transport Oxygen: NO Discharge Order Schedule Follow up Appt in Clinic (name & timeframe) :As arranged with [facility] Other Follow Up Clinic Orders: Additional Appointments/Outpatient Orders: Additional Supplies/Treatments: Public Nurse Follow Up?: No Within 24 hours prior to discharge, all veterans need to be screened for suicide risk using the [place]-Suicide Severity Rating Scale (C-SSRS). If the C-SSRS results in a positive screen, the Suicide Risk Evaluation-Comprehensive (CSRE) must be completed by a licensed independent provider prior to discharge. The C-SSRS is completed. COPD exacerbation or PNA+ dx COPD? No CHF this admit, h/o CHF, or low EF? No Stroke/CVA/TIA this admit or h/o? No affirms access to firearms? No /es/ Lexi Ortiz, pool cleaner Nurse Signed: 12/29/2023 09:09 LEXI ORTIZ [facility] Dec 29, 2023 08:57 AM NURSING DISCHARGE NOTE: LOCAL TITLE: [facility] NURSING DISCHARGE SUMMARY STANDARD TITLE: NURSING DISCHARGE NOTE DATE OF NOTE: DEC 29, 2023@08:57 ENTRY DATE: DEC 29, 2023@08:57:13 AUTHOR: CHRYSTAL MESSER COSIGNER: URGENCY: STATUS: COMPLETED Nursing Discharge Summary Home Discharge date and time: Dec@09:50 Accompanied by: Self, Family: Ambulatory Transportation: Own car Verify that the Contact Name and Phone Number are correct: QUINTIN ZAVALA Condition: Alert, Oriented Skin Condition: Intact Incision: No Education/Teach Back Patient and/or Caregiver was given carbone information in discharge instruction and able to teach back verbally or by return demonstration. Yes, demonstrated understanding Does patient have vascular access? No Does patient require assistance with outpatient visits due to cognitive limitations, mobility limitations, or has need for nursing assistance throughout the clinic day? Patient DOES NOT have an active IZZY flag assigned. No Wristband Removal: Patient wristband was removed and destroyed by being placed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 The following warning signs are currently present for the : None noted Additional past warning signs include: Feeling hopeless, passive thoughts of feeling unsupported helpless, worsened depression Risk Factors History of suicidal behavior(s) Recent psychosocial stressors History of mental health hospitalization Losses Protective Factors and Reasons for Living Has a significant other Has child-related responsibilities or responsibilities for another person Hope for the future Clinical Impressions: The clinical impression of acute risk is Low ACUTE Risk. As evidenced by: Absence of suicidal ideations, future orientation expressed, continued The clinical impression of chronic risk is Intermediate CHRONIC Risk. As evidenced by: Multiple substantial stressors and, variable social support, pain, recent hospital discharge, Suicide Risk Mitigation Plan: This treatment and care plan was developed in collaboration with the . Risk Mitigation Plan: Strategies for Managing Risk if the is Currently in INPATIENT Treatment: Suicide Rn Labor Delivery alerted for consideration of a Patient Record Flag Category I High Risk for Suicide. Initiate unit-specific suicide precautions protocol Re-evaluation: Due to the dynamic nature of some warning signs, risk and protective factors, suicide risk should be routinely re-evaluated. These risk management strategies were chosen to address [place]'s current presentation and feasible treatment options within the system of care. This plan should be re-evaluated over time. /lilia/ NELSON CORONA Staff Psychiatrist Signed: 12/25/2023 16:16 12/26/2023 ADDENDUM STATUS: COMPLETED Suicide prevention reviewed documentation. Additional follow up by suicide prevention program is not clinically indicated at this time. This does not meet threshold for mandated High Risk Flag consult. Low acute risk. does not express SI. /es/ MERNA Valle,FORENSIC ANTHROPOLOGIST,CALENDER MACHINE OPERATOR HELPER Suicide Prevention Chassis Wirer Signed: 12/26/2023 09:15 NELSON CORONA [facility] Dec 25, 2023 03:22 PM SUICIDE PREVENTION NOTE: LOCAL TITLE: SUICIDE PREVENTION SAFETY PLAN STANDARD TITLE: SUICIDE PREVENTION NOTE DATE OF NOTE: DEC 25, 2023@15:22 ENTRY DATE: DEC 25, 2023@15:22:53 AUTHOR: QUINTIN ESPINOSA COSIGNER: URGENCY: STATUS: COMPLETED SAFETY PLAN Please follow the steps described below on your Safety Plan. If you are experiencing a medical or mental health emergency, please call 911, at any time. If you are unable to reach your safety contacts or you are in crisis, please call the Veterans Crisis Line (Dial 356 then Press 1). Step 1: Triggers, Risk Factors and Warning Signs How will you know when you are in crisis and that the Safety Plan should be used? What are your personal red flags? 1. Isolating-ignoring phone calls and text 2. Difficult EMS calls 3. Not sleeping- racing thoughts 4. 5. Step 2: Internal Coping Strategies What can you do, on your own, to help you stay safe and not act on your suicidal thoughts or urges in the future? What have you done in the past to stay safe? 1. Put a puzzle together 2. Go for a walk or hike outside 3. Take a jacuzzi bath 4. 5. Step 3: Social Contacts Who May Distract from the Crisis Other than mental health providers and counselors, who can you contact who helps take your mind off your problems or helps you feel better? Name: Ese Phone number: [phone] Name: Ortiz Phone number: [phone] Name: Rusty Phone number: [phone] Name: October Phone number: In phone What public places, groups, or social events help you feel better? Examples of social settings include community events, beaches, root, coffee shops, malls, churches, clubs, 12 step meetings, aftercare groups, support groups, Veterans organizations, [facility] social events. 1. [facility] 2. [facility] 3. 4. 5. 6. Step 4: Family Members or Friends Who May Offer Help Who are friends or family members who should be included in your plan? Name: Ortiz Phone number: [phone] Name: Ese Phone number: [phone] Name: Shanta Phone number: [phone] Name: Facundo Phone number: In phone Step 5: Professionals and Agencies to Contact for Help Who are the mental health professionals or professional peer supports who should be included in your plan? Please list the numbers you would call in the order you would call them. Name: Frances Cruz Phone number: In phone Veterans Crisis Line: Dial 988 then Press 1 Veterans Crisis Line Text Messaging Service: 975795 Veterans Crisis Line: [email or web address].Open Utility/chat Call 915 in an emergency If you need to go to an urgent care center or emergency room, where will you go? Facility name: [facility] Facility address: Facility phone number: Local [place] site-specific emergency numbers: [place] Step 6: Making the Environment Safe Ways to make my environment safer and barriers I will use to protect myself from these potentially lethal means: Put medications in downstairs bathroomKeep guns out of the house has access to firearms in their home or elsewhere: No [place] has access to opioids: Yes Opioid safety and overdose education could not be provided. Reason: Pt said med was prescribed for her chronic pancreatitis Naloxone Patient declined naloxone. Reason: Pt said opioid wasd prescribed for her chronic pancreatitis These are the people who will help me protect myself from having access to dangerous items: Name: Ortiz (ex-) [place]'s current, physical address: [address] [place] [id number] 's current phone number: [phone] Other Resources: - Virtual Hope Box smartphone application (create a hope box to remember good things in one's life) - Tiny Postction.Meebo (source of [place]-related resources and information) - Safety Plan in PTSD Copier Technician: www.ptsd.[place].gov/appvid/mobile /ptsdcoach_app.asp - Safety Plan in PTSD Copier Technician Video: https://www.ExpenseBotube.com/watch ?v=TCj0qzfrQ7L I have received a copy of this Safety Plan. [place] does not have a family member/caregiver/friend to give copy of Safety Plan to. [place] does not have a family member/caregiver/friend to participate in safety planning. /lilia/ Quintin Espinosa RN, BSN, PHN Staff Nurse Signed: 12/25/2023 15:37 QUINTIN ESPINOSA [facility] Dec 25, 2023 01:49 PM SOCIAL WORK NOTE: LOCAL TITLE: SOCIAL WORK PROGRESS NOTE STANDARD TITLE: SOCIAL WORK NOTE DATE OF NOTE: DEC 25, 2023@13:49 ENTRY DATE: DEC 25, 2023@13:49:17 AUTHOR: JUSTO MALDONADO COSIGNER: URGENCY: STATUS: COMPLETED Patient Diagnosis: DEPRESSION SI Length of time: Face to Face: 45 Admin: 15 Team Conference: 15 Purpose: Coordination of care Date of admission: DEC 21, 2023@20:55:27 Zamudio: ED- DX: DEPRESSION SI Presenting issue: Suicidal ideation, socioeconomic/psychosocial stressors Legal status: Voluntary MHTC/outpatient provider/team: MHMolly POE V23 (MHTC) Research Phlebotomist FRANCES CRUZ PHONE:[phone] Current ROIs signed for support persons and collateral info: None at this time High Risk Flag Status: Yes-screened on 12/20 Safety concerns, means reduction efforts: Patient has significant psychosocial stressors. Chronic suicidal ideation. Stressors at work, and financial concerns. Protective factors include her children. 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 EMR reviewed and discussed. Modalities used: Supportive, Motivational, Interpersonal Face to Face: Met with patient to assess mental health symptom presentation and wellness. Her affect was much brighter today and she reported that she was tracking much better and able better engage in problem solving and feels more grounded. She described her symptom presentation upon admission as depressed and disassociated. She indicated that she continues to experience fatigue from the new medication (Seroquel) yet has had non-disrupted sleep and acknowledged she will continue to experience fatigue as the medication is titrated up to targeted dose. She does not endorse any type of suicidal ideation or plan and stated that she does not have any weapons in the home. Offered her positive observation feedback that her presentation is noticeably improved since her admission. She acknowledged that she feels much more stabilized and that her time on 1L has been helpful to help her readjust and get back to her normal self. Congratulated her upon being accepted into [facility] and discussed the benefits of this program. Reviewed her intake date of Thursday 12/28 and start date of 01/04. Checked in regarding whether she let her therapist know that she got into [facility] and she had not, and requested assistance in letting her know. Patient provided update regarding the critical incident stress debriefing. She was not able to participate by phone or Zoom yet they did offer her an opportunity to have a 1:1 critical stress debriefing session. She voiced relief as she identified all of the critical incidences and lethal accident she has attended and not talked or debriefed about it, and shared a few vivid examples. She voiced the intention to begin talking about these critical incidences more frequently rather than keeping it bottled up. Provided positive feedback for this insight. 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 She explored interest in hospice and work on a burn unit as two possibilities. Patient requested if we can complete FMLA paperwork for her work. Let her know I would look into that and the possibility that it may need to be completed by her outpatient team. Patient voiced preparedness to discharge tomorrow. She plans to stay with her ex- to save money and that he is helping her financially. They are on amicable terms. Her kids will be picking her up, and meeting in the [place] at[facility] at 1:00. Discussed what she will need to do tomorrow prior to discharge such as completing safety plan, meeting with her treatment team for a discharge meeting. She voiced intention to roll picker her medications from the pharmacy upon departure and is aware of the location of the pharmacy. Circled back to meet with patient after reaching out to her therapist (Frances). Patient is requesting to keep her therapy appointment on 12/29. Admin: Reached out to patient's outpatient therapist (Frances Cruz) to let her know of the [facility] admission and dates per patient's request. Confirmed with patient that she would like to keep her session on 12/29 with Frances. Plan: Assess and monitor improvement with symptom stabilization. Continue to monitor the impact of the newly prescribed medication (Seroquel. Meet with patient 1:1 daily to provide additional supportive therapy. Patient will discharge tomorrow. Her [facility] will be [facility]. /lilia/ LASHAE Pappas, LASHAE Ellison LICSW Signed: 12/25/2023 14:30 JUSTO MALDONADO [facility] Dec 25, 2023 08:03 AM MENTAL HEALTH NOTE: LOCAL TITLE: MH PROGRESS NOTE STANDARD TITLE: MENTAL HEALTH NOTE DATE OF NOTE: DEC 25, 2023@08:03 ENTRY DATE: DEC 25, 2023@08:03:17 AUTHOR: QUINTIN ESPINOSA COSIGNER: URGENCY: STATUS: COMPLETED MH PROGRESS NOTE Has ADDENDA *Behavior: Quiet, Cooperative Self injurious behavior: No *Mood/Affect: Depressed, Flat *Suicide Assessment: *Patient questioned about thoughts of suicide? Yes *Does patient currently have thoughts or feelings of suicide? No *Patient agrees to notify staff if urge to commit suicide arises? Yes *Patient Safety: Checks: 15 minutes Nutrition: Breakfast intake: 100% Lunch intake:100% Legal Issues/Discharge Planning (changes in legal status, communications with outside agencies, etc.): Voluntary *Progress Note (Data, Assessment, Plan): D/A: Patient spend most of the tour resting/sleeping between meals. Calm, quiet with flat affect. Verbalized having a rough evening but had a good night sleep. After lunch, pt reported she continues to feel tired and groggy from medications but felt it will clear out in the evening. Around 1400, patient was observed sitting by her bedside on her iPad. Working on safety plan for anticipated discharge on Friday (12/26/2023). Denied SI/HI P: Will continue to monitor mood behavior and provide a safe environment /lilia/ Quintin Espinosa RN, BSN, PHN Staff Nurse Signed: 12/25/2023 14:44 12/25/2023 ADDENDUM STATUS: COMPLETED Around 1500, patient participated in OT activity. She has an amazing voice. She sang beautifully. /lilia/ Quintin Espinosa RN, BSN, PHN Staff Nurse Signed: 12/25/2023 14:58 QUINTIN ESPINOSA [facility] Dec 25, 2023 06:42 AM MENTAL HEALTH NOTE: LOCAL TITLE: PROGRESS NOTE STANDARD TITLE: MENTAL HEALTH NOTE DATE OF NOTE: DEC 25, 2023@06:42 ENTRY DATE: DEC 25, 2023@06:42:40 AUTHOR: ZAIN BARAJASIGNER: URGENCY: STATUS: COMPLETED *Behavior: Sleeping Self-injurious behavior: No *Mood/Affect: Euthymic/Appropriate *Suicide Assessment: *Patient questioned about thoughts of suicide? No Sleeping *Medication: Took all prescribed medications. *Patient Safety: Checks: 15 minutes Sleep: Hours slept during shift - 6 Continuous Hours slept in last 24 hours: 10.25 *Progress Note (Data, Assessment, Plan): D/A: Patient resting in bed with eyes closed. Slept 6 hours overnight and 10.25/24 hours. Pleasant and cooperative with am routine. P: Will continue to monitor mood and sleep. Will continue to provide a safe and quiet environment. /es/ ZAIN BARAJAS RN REGISTERED NURSE Signed: 12/25/2023 06:45 ZAIN BARAJAS [facility] Dec 24, 2023 09:50 PM NURSING INPATIENT NOTE: LOCAL TITLE: [facility] NURSING PROGRESS NOTE STANDARD TITLE: NURSING INPATIENT NOTE DATE OF NOTE: DEC 24, 2023@21:50 ENTRY DATE: DEC 24, 2023@21:50:37 AUTHOR: DUSTIN CHAN EXP COSIGNER: URGENCY: STATUS: COMPLETED [facility] NURSING PROGRESS NOTE Has ADDENDA *Behavior: Cooperative Self-injurious behavior: No *Mood/Affect: Euthymic/Appropriate, Anxious *Suicide Assessment: *Patient questioned about thoughts of suicide? Yes *Does patient currently have thoughts or feelings of suicide? No *Patient agrees to notify staff if urge to commit suicide arises. Yes *Medication: Took all prescribed medications. PRNs: *Pain Management: Denies pain. *Patient Safety: Checks: 15 minutes Nutrition: Dinner intake: 100% Legal Issues/Discharge Planning (changes in legal status, communications with outside agencies, etc.): *Progress Note (Data, Assessment, Plan): D/A: Pleasant on approach. Stated she is doing little better today compared to yesterday. Denied any SI/HI. Continues to feel anxious, pt received PRN Quetiapine 25 mg for anxiety with effective result. Pt's came to visit, and they played scrabbles in dining room. Pt always went outside in courtyard and walked laps. Polite with request. No behavior issue noted. P: Monitor and document any changes in mood and behavior. Assess any SI/HI. SKIN REINSPECTION/REASSESSMENT SKIN INSPECTION: Skin Color: Usual for ethnicity Skin Temperature: Warm Skin Moisture: Normal Skin Turgor: Elastic (normal/immediate) Hayden Skin Assessment: The patient's Hayden Scale Score is 23. The patient is considered not at risk for development of pressure ulcers/injuries. Sensory perception -- ability to respond meaningfully to pressure-related discomfort No impairment. Moisture -- degree to which skin is exposed to moisture Rarely moist. Activity -- ability to change and control body position Walks frequently. Mobility -- ability to change and control body position No limitation. Nutrition -- usual food intake patterns Excellent. Friction and shear No apparent problem. INTERVENTIONS: The pressure injury interventions were not needed - patient/resident is not at risk. RISK FACTORS THAT INCREASE RISK FOR DEVELOPING PRESSURE INJURIES The patient/resident does not have any additional risk factors. SKIN INTEGRITY: Intact /sandra CHAN RN STAFF NURSE Signed: 12/24/2023 21:59 12/24/2023 ADDENDUM STATUS: COMPLETED At 2245, pt was up at nurse station, Reporting that she couldn't sleep. 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 Pt received another dosage of PRN Quetiapine 25 mg for anxiety. Provided emotional support, empathic listening, and reassurance. Pt performed deep breathing exercises with the investment underwriter, and supplied essential oil, an ice pack, and an iPad for listening to calming music to help with sleep and anxiety. Pt was able to calmed down and stopped crying. Appreciative with care. /sandra CHAN RN STAFF NURSE Signed: 12/24/2023 23:22 DUSTIN CHAN [facility] Dec 24, 2023 05:52 PM RECREATIONAL THERAPY NOTE: LOCAL TITLE: REC THERAPY-PARTICIPATION NOTE STANDARD TITLE: RECREATIONAL THERAPY NOTE DATE OF NOTE: DEC 24, 2023@17:52 ENTRY DATE: DEC 24, 2023@17:52:11 AUTHOR: GLADYS LY EXP COSIGNER: URGENCY: STATUS: COMPLETED RECREATION THERAPY - Courtyard activities Packaging Assembler: NESHA Maldonado Date: 12/24/23 Time: 2:30-3:30 Number of patients: 3 Diagnosis: Depression/SI OBJECTIVES: 1) Socialization & interpersonal connection 2) Cognitive stimulation 3) Sensory stimulation 4) Relaxation 5) Increase self-esteem 6) Develop new leisure skills 7) Increase sense of autonomy by choosing own level of participation 8) Improve motivation and activity level through successful participation Patient readily joined once invited. Slowly walked laps, declined politely with other activities offered. Sat on bench, did not interact with peers or staff unless approached. Mood depressed, flat affect, states she did sleep better last night and seemed hopeful for [facility] and moving in with her ex- or her sister. Did not want to participate in any late afternoon groups, has been watching the Good Doctor tv show on her iPad in room GOAL: Patient will attend at least 1-2 RT groups/individual activities per day for increasing activity level, social interaction, mood and improving constructive use of free-time. /lilia/ NESHA MALDONADO RECREATION THERAPIST Signed: 12/24/2023 17:59 GLADYS LY [facility] Dec 24, 2023 12:22 PM MENTAL HEALTH NOTE: LOCAL TITLE: PROGRESS NOTE STANDARD TITLE: MENTAL HEALTH NOTE DATE OF NOTE: DEC 24, 2023@12:22 ENTRY DATE: DEC 24, 2023@12:22:22 AUTHOR: EVERETTE MCPHERSON EXP COSIGNER: URGENCY: STATUS: COMPLETED *Behavior: Cooperative Self-injurious behavior: No *Mood/Affect: Depressed , Constricted *Suicide Assessment: *Patient questioned about thoughts of suicide? Yes *Does patient currently have thoughts or feelings of suicide? No *Patient agrees to notify staff if urge to commit suicide arises? Yes *Medication: Took all prescribed medications. *Pain Management: Denies pain *Patient Safety: Checks: 15 minutes Nutrition: Breakfast intake: 100% Lunch intake: 100% *Progress Note (Data, Assessment, Plan): D/A: Patient reported feeling tired from the increased dose of Seroquel and went back to bed after breakfast. Depressed/constricted affect. Tearful when discussing current stressors, but denied current SI. Pt attended the Safety Planning group and started to work on a Safety Plan. 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 P: Continue to monitor mood/behavior and support treatment plan /lilia/ EVERETTE MCPHERSON RN Signed: 12/24/2023 14:31 EVERETTE MCPHERSON [facility] Dec 24, 2023 05:06 AM MENTAL HEALTH NOTE: LOCAL TITLE: PROGRESS NOTE STANDARD TITLE: MENTAL HEALTH NOTE DATE OF NOTE: DEC 24, 2023@05:06 ENTRY DATE: DEC 24, 2023@05:06:52 AUTHOR: FELIX WARD EXP COSIGNER: URGENCY: STATUS: COMPLETED *Behavior: Sleeping *Suicide Assessment: *Patient questioned about thoughts of suicide? No not assessed, Pts encouraged to sleep during the noc *Medication: Took all prescribed medications. *Patient Safety: Checks: 15 minutes Sleep: Hours slept during shift - 5.75 Broken Hours slept in last 24 hours: 8.5 *Progress Note (Data, Assessment, Plan): D/A: Noted to be resting quietly on all q15 minute safety checks throughout the noc. Wakened at 0600 for meds/vs. Reports sleeping well. P: Continue to provide a safe and quiet noc time environment. /es/ FELIX WARD RN REGISTERED NURSE Signed: 12/24/2023 07:08 FELIX WARD [facility] Dec 23, 2023 09:29 PM MENTAL HEALTH NOTE: LOCAL TITLE: MH PROGRESS NOTE STANDARD TITLE: MENTAL HEALTH NOTE DATE OF NOTE: DEC 23, 2023@21:29 ENTRY DATE: DEC 23, 2023@21:29:34 AUTHOR: QUINTIN ESPINOSA COSIGNER: URGENCY: STATUS: COMPLETED *Behavior: Quiet, Cooperative Self injurious behavior: No *Mood/Affect: Euthymic/Appropriate *Suicide Assessment: *Patient questioned about thoughts of suicide? Yes *Does patient currently have thoughts or feelings of suicide? No *Patient agrees to notify staff if urge to commit suicide arises? Yes *Patient Safety: Checks: 15 minutes Nutrition: Dinner intake: 100% Legal Issues/Discharge Planning (changes in legal status, communications with outside agencies, etc.): Voluntary *Progress Note (Data, Assessment, Plan): D/A: Patient spend most of evening on the milieu with her visiting. They both played games in the courtyard and dining room. She verbalized feeling fine at the start of the tour. Received Hydroxyzine 25mg and ice pack at 1757 for anxiety which were helpful. Patient later reported the cancellation of the debriefing session that was scheduled (today at 1900) upon receiving a phone call. There will be an in-person meeting arranged with her. Denied SI/HI P:Will continue to monitor mood, behavior and provide a safe environment SKIN REINSPECTION/REASSESSMENT SKIN INSPECTION: Skin Color: Usual for ethnicity Skin Temperature: Warm Skin Moisture: Normal Skin Turgor: Elastic (normal/immediate) Hayden Skin Assessment: The patient's Hayden Scale Score is 23. The patient is considered not at risk for development of pressure ulcers/injuries. Sensory perception -- ability to respond meaningfully to pressure-related discomfort No impairment. Moisture -- degree to which skin is exposed to moisture Rarely moist. Activity -- ability to change and control body position Walks frequently. Mobility -- ability to change and control body position No limitation. Nutrition -- usual food intake patterns Excellent. Friction and shear No apparent problem. INTERVENTIONS: The pressure injury interventions were not needed - patient/resident is not at risk. RISK FACTORS THAT INCREASE RISK FOR DEVELOPING PRESSURE INJURIES The patient/resident does not have any additional risk factors. SKIN INTEGRITY: Intact /es/ Quintin Espinosa, RN, BSN, PHN Staff Nurse Signed: 12/23/2023 23:23 QUINTIN ESPINOSA [facility] Dec 23, 2023 02:19 PM RECREATIONAL THERAPY NOTE: LOCAL TITLE: REC THERAPY-PARTICIPATION NOTE STANDARD TITLE: RECREATIONAL THERAPY NOTE DATE OF NOTE: DEC 23, 2023@14:19 ENTRY DATE: DEC 23, 2023@14:19:08 AUTHOR: GLADYS LY COSIGNER: URGENCY: STATUS: COMPLETED RECREATION THERAPY PARTICIPATION NOTE Date of activity(s): [12/23/23] ACTIVITIES: [X]Social grp [60]minutes-open clinic [X]Outdoor courtyard [60]minutes PARTICIPATION LEVEL: needs encouragement for joining group. Very flat and quiet, depressed mood. Used computer for emailing, requested [employer] for iPad. Shared that she enjoys traveling(has been on [employer])and mostly enjoys scuba diving. Does workout at a Gym (can deadlift 300 pounds). Talks about all her psychosocial stressors, and very worrisome about her future finances, housing, and job. Uses iPad daily, checked out Parature books, and seemed semi-optimistic about PPH program SOCIAL INTERACTION: []initiated conversation with others [X]engaged in conversation when other's initiated []appeared uncomfortable when other's initiated []did not interact with others BEHAVIORAL/EMOTIONAL CONCERNS: [X]appropriate/pleasant [X]cooperative [] shows humor [] disruptive []irritable [] angry [X]depressed []anxious [X] guarded [X]flat/quiet []uninterested [] confused/disoriented []bright/friendly []manic [] chatty ENERGY LEVEL: []active []excessive []lethargic [] restless [X]low GOALS: Recreation Therapy Programs have therapeutic

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
--- OUTSIDE RECORDS SUMMARY | 2024-05-04 07:52 | XMS_ITS | Encounter Summary ---
Author Name [facility] [place] Organization [facility] Address [address] [place] [address] Care Team Providers Care Crosscutter Name Role Phone BASIL EMIR Primary Care Provider Unavailabl e Selected Encounter This section includes the information on record at [place] for the Encounter. Date/Time Encounter Type Encounter Description Reason Provider Source Dec 23, 2023 09:03 AM [facility] H[facility]P IP/OBS SF/LOW [facility] - IND ICD-10-CM F32.9 Major depressive disorder, single episode, unspecified VARICAT,LA SCO P IHE Encounter Template Text not used by [place] Assessments - Encounter Diagnoses This section includes the primary and secondary diagnoses documented for the Encounter. Date/Time Primary/Secondary Diagnosis Diagnosis Name Provider Source Dec 23, 2023 10:55 AM PRIMARY Major depressive disorder, single episode, unspecified VARICAT,LA SCO P [facility] Plan of Treatment: Future Appointments (+ [...] 29, 2023 11:30 AM AMBUL[place]ORY [place] [facility] Dec 30, 2023 10:30 AM AMBULATORY - MEDICINE LEEANN RAWLS [facility] Dec 30, 2023 01:00 PM AMBULATORY - PSYCHIATRY SH WILI [facility] Jan 04, 2024 02:00 PM AMBUL[facility]ORY - NONE [place] [facility] Jan 05, 2024 08:45 AM [facility] Jan 05, 2024 10:00 AM [facility] Jan 05, 2024 11:00 AM AM[facility] Jan 05, 2024 12:00 PM AM[facility] Jan 05, 2024 12:30 PM [facility] Jan 05, 2024 02:30 PM [facility] Jan 06, 2024 08:45 AM [facility] Jan 06, 2024 10:00 AM [facility] Jan 06, 2024 11:00 AM [facility] Jan 08, 2024 08:45 AM [facility] Jan 08, 2024 10:00 AM [facility] Jan 08, 2024 11:00 AM [facility] Jan 09, 2024 08:45 AM [facility] Jan 09, 2024 10:00 AM [facility] Jan 09, 2024 11:00 AM [facility] Jan 12, 2024 08:45 AM [facility] Active, Pending, and Scheduled Orders This section includes a listing of several types of active, pending, and scheduled orders, including clinic medications orders, diagnostic test orders, procedure orders and consult orders; where the start date of the order is 45 days before the date of the Encounter or 45 days after the date of theEncounter. The data comes from all [facility]. Test Date/Time Test Type Test Details Facility Name November 19, 2023 12:00 AM Laboratory - Chemi stry Order ELASTASE-1,PANC STL STOOL FECES SP ONCE [facility] November 19, 2023 12:00 AM Laboratory - Chemi stry Order TTG AB,IGA SERUM SP ONCE [facility] November 19, 2023 12:00 AM Laboratory - Chemi stry Order IGA PLASMA SP ONCE [facility] November 19, 2023 12:00 AM Laboratory - Chemi stry Order ENTERIC PATHOGEN PCR PANEL STOOL FECES SP ONCE [facility] November 19, 2023 12:00 AM Laboratory - Microbiology Order OVA & PARASITES FECAL FECES SP ONCE [facility] December 05, 2023 02:27 PM Laboratory - Chemi stry Order BLOOD GAS PANEL FOR ICU ARTERIAL BLOOD STAT WC [facility] December 12, 2023 03:21 PM Laboratory - Chemi stry Order CALPROTECTIN,STOOL STOOL FECES SP ONCE [facility] Dec 21, 2023 04:56 PM Laboratory - Chemi stry Order SALICYLATE SERUM STAT SP [facility] Lab Results: +/- 30 days of [...] Dec 22, 2023 06:44 AM [facility] HEMOGLOBIN A1C Specimen Type: BLOOD Comment: [...] Dec 21, 2023 08:58 PM Reporting Lab: [facility] [phone] Performing Lab: [facility] [phone] HEMOGLOBIN A1C 4.9 4.0-6.0 Dec 22, 2023 06:44 AM [facility] B 12 Specimen Type: SERUM No comment entered. Ordering Provider: Celeste DUKES Report Released Date/Time: Dec 21, 2023 08:58 PM Reporting Lab: [facility] [phone] Performing Lab: [facility] [phone] B 12 381 pg/mL 213-816 Dec 22, 2023 06:44 AM [facility] VIT D 25-OH,TOTAL Specimen Type: SERUM No comment entered. Ordering Provider: Celeste DUKES Report Released Date/Time: Dec 21, 2023 08:58 PM Reporting Lab: [facility] [phone] Performing Lab: [facility] [phone] VIT D 25-OH,TOTAL 29 ng/mL 12-50 Dec 22, 2023 06:44 AM [facility] FOLATE Specimen Type: PLASMA No comment entered. Ordering Provider: Celeste DUKES Report Released Date/Time: Dec 21, 2023 08:58 PM Reporting Lab: [facility] [phone] Performing Lab: [place] [phone] FOLATE 7.1 ng/mL >7.0 Dec 22, 2023 06:44 AM [facility] TSH W/REFLEX TO FREE T4 Specimen Type: PLASMA No comment entered. Ordering Provider: Celeste DUKES Report Released Date/Time: Dec 21, 2023 08:58 PM Reporting Lab: [facility] [phone] Performing Lab: [facility] [phone] TSH 0.36 u[IU]/mL 0.35-4.94 Dec 22, 2023 06:44 AM [facility] LIPID PANEL,FASTING Specimen Type: PLASMA No comment entered. Ordering Provider: Celeste DUKES Report Released Date/Time: Dec 21, 2023 08:58 PM Reporting Lab: [facility] [phone] Performing Lab: [facility] [phone] CHOLESTEROL 170 mg/dL <199 TRIGLYCERIDE 151 mg/dL H <149 .HDL 34 mg/dL L >50 LDL CALCULATION 106 mg/dL H <99 VLDL CALCULATION 30 mg/dL H <29 NON HDL CHOLESTEROL 136 mg/dL H <129 Dec 21, 2023 09:33 PM [facility] DRUG SCREEN PANEL,URINE Specimen Type: URINE Comment: Presumptive Positive by screen, results not confirmed. Ordering Provider: MONIQUE VÁSQUEZ Report Released Date/Time: Dec 21, 2023 04:56 PM Reporting Lab: [facility] [phone] Performing Lab: [facility] [phone] BARBITURATES Negative Negative AMPHETAMINES Negative Negative COCAINE Negative Negative BENZODIAZEPINES Negative Negative CANNABINOIDS POSITIVE H Negative METHADONE Negative Negative OPIATES Negative Negative PHENCYCLIDINE Negative Negative ETHANOL,URINE Negative Negative DRUG SCREEN CREAT 325.9 mg/dL >20.0 OXYCODONE Negative Negative BUPRENORPHINE Negative Negative TRAMADOL Negative Negative FENTANYL Negative Negative Dec 21, 2023 05:30 PM [facility] ETHANOL Specimen Type: PLASMA No comment entered. Ordering Provider: MONIQUE VÁSQUEZ Report Released Date/Time: Dec 21, 2023 04:56 PM Reporting Lab: [facility] [phone] Performing Lab: [facility] [phone] ETHANOL Negative mg/dL NEGATIVE Dec 21, 2023 05:30 PM [facility] CBC & DIFF Specimen Type: BLOOD Comment: Automated Differential Performed Ordering Provider: MONIQUE VÁSQUEZ Report Released Date/Time: Dec 21, 2023 04:56 PM Reporting Lab: [facility] [phone] Performing Lab: [facility] [phone] WBC 9.50 10*3/uL 4.0-11.0 RBC 4.69 10*6/uL [...] 10*3/uL 0-0.1 Dec 21, 2023 05:30 PM [facility] COMPREHENSIVE METABOLIC PANEL+MG Specimen Type: PLASMA No comment entered. Ordering Provider: MONIQUE VÁSQUEZ Report Released Date/Time: Dec 21, 2023 04:56 PM Reporting Lab: [facility] [phone] Performing Lab: [facility] [phone] CREATININE 1.0 mg/dL 0.5-1.0 UREA NITROGEN 9 [...] 71 >60 December 05, 2023 02:20 PM [facility] EXTRA RED TUBE Specimen Type: SERUM No comment entered. Ordering Provider: NELSON RONQUILLO Report Released Date/Time: December 05, 2023 02:39 PM Reporting Lab: [facility] [phone] Performing Lab: [facility] [phone] EXTRA RED TUBE RECEIVED December 05, 2023 02:20 PM [facility] LACTIC ACID Specimen Type: PLASMA No comment entered. Ordering Provider: NELSON RONQUILLO Report Released Date/Time: December 05, 2023 02:27 PM Reporting Lab: [facility] [phone] Performing Lab: [facility] [phone] LACTIC ACID 1.7 mmol/L 0.5-2.2 December 05, 2023 02:20 PM [facility] PROTHROMBIN TIME/INR Specimen Type: PLASMA No comment entered. Ordering Provider: NELSON RONQUILLO Report Released Date/Time: December 05, 2023 02:27 PM Reporting Lab: [facility] [phone] Performing Lab: [facility] [phone] .INR 1.2 H 0.8-1.1 .PT 13.5 s H 9.4-12.5 December 05, 2023 02:20 PM [facility] CODE BLUE(LYTE,CR,UN,GL,MG,CA,PHOS,TROP) Specimen Type: PLASMA No comment entered. Ordering Provider: NELSON RONQUILLO Report Released Date/Time: December 05, 2023 02:27 PM Reporting Lab: [facility] [phone] Performing Lab: [facility] [phone] CREATININE 1.1 mg/dL H 0.5-1.0 UREA NITROGEN [...] December 05, 2023 02:20 PM [facility] CBC Specimen Type: BLOOD No comment entered. Ordering Provider: NELSON RONQUILLO Report Released Date/Time: December 05, 2023 02:27 PM Reporting Lab: [facility] [phone] Performing Lab: [facility] [phone] WBC 11.50 10*3/uL H 4.0-11.0 RBC 4.83 10*6/uL 4.0-5.4 HGB 13.6 g/dL 11.5-16 HCT 39.8 34.5-48 MCV 82.4 fL 80-100 MCH 28.2 pg 27-33 MCHC 34.2 g/dL 32.0-37.5 PLT 443 10*3/uL H 150-400 MPV 9.1 fL 7.4-10.4 RDW 12.5 11.5-14.5 December 05, 2023 02:20 PM [facility] EXTRA GOLD GEL TUBE Specimen Type: SERUM No comment entered. Ordering Provider: NELSON RONQUILLO Report Released Date/Time: December 05, 2023 02:39 PM Reporting Lab: [facility] [phone] Performing Lab: [facility] [phone] EXTRA GOLD GEL TUBE RECEIVED December 05, 2023 02:18 PM [facility] POC ABG/ELECTROLYTES Specimen Type: VENOUS BLOOD Comment: FIO2 = 40% Patient Temp: 36.6 C Sample Type = VENOUS Ordering Provider: ULYSSES ELDER Report Released Date/Time: December 06, 2023 08:24 PM Reporting Lab: [facility] [phone] Performing Lab: [facility] [phone] POC PH 7.382 7.31-7.41 POC PCO2 35.0 [...] Height Weight Body Mass Index Source Dec 23, 2023 07:07 PM 99.1 74 120/80 97 [facility] Dec 23, 2023 06:09 AM 98.1 76 121/73 2 [facility] Advance Directives: All historical and current [...] ADVANCE DIRECTIVE DISCUSSION SHAHID HURTADO [facility] Encounter Notes: All associated encounter notes This section contains the clinical notes associated to the Encounter. Date/Time Encounter Note(s) Provider Source Dec 23, 2023 09:03 AM PSYCHIATRY E & M N OTE: LOCAL TITLE: PSYCHIATRIC EVALUATION & MANAGEMENT STANDARD TITLE: PSYCHIATRY E & M NOTE DATE OF NOTE: DEC 23, 2023@09:03 ENTRY DATE: DEC 23, 2023@09:04:01 AUTHOR: ARTIS BARR EXP COSIGNER: URGENCY: STATUS: COMPLETED PSYCHIATRIC EVALUATION & MANAGEMENT Has ADDENDA PSYCHIATRIC EVALUATION AND MANAGEMENT FOLLOW UP VISIT Duration: 30 minutes Time spent performing psychotherapy services: 16-30 minutes INTERVAL HISTORY: Nursing notes reviewed. No acute safety or behavioral concerns overnight. Lucretia reports that she was drwoy after recieving the Seroquel. She reports no changes in her mood. She expressed she is able to maintain her safety while on the unit. 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 She reports some financial concerns and expressed that she spoke with her ex- and feels comfortable living with him until she is able to get back on her feet. She reports frustation with not being able to find affordable housing. She is aggreeable to continuing to augment seroqeul. SUBSTANCE USE: THC MEDICATION COMPLIANCE: compliant SIDE EFFECTS: Reports dizziness, drowsiness since starting quetiapine yesterday MOST RECENT VITALS: Blood Pressure: 121/73 (12/23/2023 06:09) Pulse: 76 (12/23/2023 06:09) Temperature: 98.1 F [36.7 C] (12/23/2023 06:09) Weight: 201.1 lb [91.22 kg] (12/22/2023 10:18) Body Mass Index: 31.3 MENTAL STATUS EXAM: General: Cooperative, no acute distress Eye Contact: Good Psychomotor Activity: WNL (Within normal limits) Abnormal Involuntary Movements: None Speech: Regular rate and rhythm, normal volume Mood: Affect: Euthymic Thought Process: Linear, logical, goal oriented Thought [...] recurrent, severe ASSESSMENT & PLAN: 43-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 Today's Changes: - PHP consult Medications: continue duloxetine 60mg po qhs, quetiapine 50mg po QHS, trazodone 50mg po QHS PRN -Continue full, voluntary inpatient hospitalization -Close observation for safety as a precaution while on inpatient psychiatry -Supportive and educational counseling undertaken -Encourage participation in group and therapeutic activities on the diana -Monitor patient for evidence of improvement versus complications. MH TREATMENT PLAN / EDUCATION / SAFETY Treatment [...] the patient who acknowledges agreement and understanding. /lilia/ ARTIS BARR RESIDENT// Signed: 12/23/2023 10:43 Receipt Acknowledged By: 12/23/2023 10:55 /lilia/ NELSON MENA Staff Psychiatrist 12/23/2023 ADDENDUM STATUS: COMPLETED MENTAL STATUS EXAM: General: Cooperative, no acute distress, appears drowsy Eye Contact: downcast Psychomotor Activity: WNL (Within normal limits) Abnormal Involuntary Movements: None Speech: Regular rate and rhythm, normal volume Mood: the same Affect: dysphoric Thought Process: Linear, logical, goal oriented Thought Content: Denies SI (Suicidal Ideation), HI(Homicidal Ideation) Perceptual disturbances: No AH(Auditory Hallucinations),VH(Visual Hallucinations), or delusions Insight: Fair Judgment: Fair Attention/Concentration: Intact for exam purposes Musculoskeletal: Muscle strength/tone intact for exam purposes. /sandra BARR RESIDENT// Signed: 12/23/2023 10:46 12/23/2023 ADDENDUM STATUS: COMPLETED Patient was seen with the resident and team. Case discussed and supervision conducted. I agree with the assessment and plan documented in the attached resident's note from today. /lilia/ NELSON MENA Staff Psychiatrist Signed: 12/23/2023 10:57 ARTIS BARR [facility]
--- OUTSIDE RECORDS SUMMARY | 2024-05-04 07:52 | XMS_ITS | Encounter Summary ---
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 Date/Time Encounter Type Encounter Description Reason Provider Source Dec 24, 2023 10:21 AM HOSP IP/OBS DSCHRG MGMT >30 [facility] - IND ICD-10-CM F32.9 Major depressive disorder, single episode, unspecified VARICAT,LA SCO P IHE Encounter Template Text not used by [place] Assessments - Encounter Diagnoses This section includes the primary and secondary diagnoses documented for the Encounter. Date/Time Primary/Secondary Diagnosis Diagnosis Name Provider Source Dec 24, 2023 10:54 AM PRIMARY Major depressive disorder, single episode, unspecified VARICAT,LA SCO P [facility] Plan of Treatment: Future Appointments (+ 6 [...] 29, 2023 11:30 AM [facility] Dec 30, 2023 10:30 AM AMBULATORY - MEDICINE LEEANNMindi RAWLS [facility] Dec 30, 2023 01:00 PM AMBULATORY - PSYCHIATRY SH WILI [facility] Jan 04, 2024 02:00 PM AMBULATORY - NONE [facility] Jan 05, 2024 08:45 AM [facility] Jan 05, 2024 10:00 AM [facility] Jan 05, 2024 11:00 AM [facility] Jan 05, 2024 12:00 PM [facility] Jan 05, 2024 12:30 PM [facility] Jan 05, 2024 02:30 PM [facility] Jan 06, 2024 08:45 AM AMBULATORY - PSYCHIATRY [facility] Jan 06, 2024 10:00 AM [facility] Jan 06, 2024 11:00 AM [facility] Jan 08, 2024 08:45 AM [facility] Jan 08, 2024 10:00 AM AMBULATORY - PSYCHIATRY [facility] Jan 08, 2024 11:00 AM AMBULATORY - PSYCHIATRY [facility] Jan 09, 2024 08:45 AM AMBULATORY - PSYCHIATRY [facility] Jan 09, 2024 10:00 AM AMBULATORY - PSYCHIATRY [facility] Jan 09, 2024 11:00 AM AMBULATORY - PSYCHIATRY [facility] Jan 12, 2024 08:45 AM AMBULATORY - PSYCHIATRY [facility] Active, Pending, and Scheduled Orders This section includes a listing of several types of active, pending, and scheduled orders, including clinic medications orders, diagnostic test orders, procedure orders and consult orders; where the start date of the order is 45 days before the date of the Encounter or 45 days after the date of theEncounter. The data comes from all [facility]. Test Date/Time Test Type Test Details Facility Name November 19, 2023 12:00 AM Laboratory - Chemi stry Order IGA PLASMA SP ONCE [facility] November 19, 2023 12:00 AM Laboratory - Chemi stry Order TTG AB,IGA SERUM SP ONCE [facility] November 19, 2023 12:00 AM Laboratory - Chemi stry Order ELASTASE-1,PANC STL STOOL FECES SP ONCE [facility] November 19, 2023 12:00 AM Laboratory - Chemi stry Order ENTERIC PATHOGEN PCR PANEL STOOL FECES SP ONCE [facility] November 19, 2023 12:00 AM Laboratory - Microbiology Order OVA & PARASITES FECAL FECES SP ONCE [facility] December 05, 2023 02:27 PM Laboratory - Chemi stry Order BLOOD GAS PANEL FOR ICU ARTERIAL BLOOD STAT WC [facility] December 12, 2023 03:21 PM Laboratory - Chemi stry Order CALPROTECTIN,STOOL STOOL FECES SP ONCE [facility] Dec 21, 2023 04:56 PM Laboratory - Chemi stry Order SALICYLATE SERUM STAT SP [facility] Lab Results: +/- 30 days of the [...] Range Comment Dec 22, 2023 06:44 AM [facility] HEMOGLOBIN A1C Specimen Type: BLOOD Comment: Values [...] Dec 21, 2023 08:58 PM Reporting Lab: [facility] [phone] Performing Lab: [facility] [phone] HEMOGLOBIN A1C 4.9 4.0-6.0 Dec 22, 2023 06:44 AM [facility] B 12 Specimen Type: SERUM No comment entered. Ordering Provider: Celeste DUKES Report Released Date/Time: Dec 21, 2023 08:58 PM Reporting Lab: [facility] [phone] Performing Lab: [facility] [id number] B 12 381 pg/mL 213-816 Dec 22, 2023 06:44 AM [facility] VIT D 25-OH,TOTAL Specimen Type: SERUM No comment entered. Ordering Provider: Celeste DUKES Report Released Date/Time: Dec 21, 2023 08:58 PM Reporting Lab: [facility] [phone] Performing Lab: [facility] [phone] VIT D 25-OH,TOTAL 29 ng/mL 12-50 Dec 22, 2023 06:44 AM [facility] FOLATE Specimen Type: PLASMA No comment entered. Ordering Provider: Celeste DUKES Report Released Date/Time: Dec 21, 2023 08:58 PM Reporting Lab: [facility] [address] Performing Lab: [place] [id number] FOLATE 7.1 ng/mL >7.0 Dec 22, 2023 06:44 AM [facility] TSH W/REFLEX TO FREE T4 Specimen Type: PLASMA No comment entered. Ordering Provider: Celeste DUKES Report Released Date/Time: Dec 21, 2023 08:58 PM Reporting Lab: [facility] [phone] Performing Lab: [facility] [phone] TSH 0.36 u[IU]/mL 0.35-4.94 Dec 22, 2023 06:44 AM [facility] LIPID PANEL,FASTING Specimen Type: PLASMA No comment entered. Ordering Provider: Celeste DUKES Report Released Date/Time: Dec 21, 2023 08:58 PM Reporting Lab: [facility] [phone] Performing Lab: [facility] [phone] CHOLESTEROL 170 mg/dL <199 TRIGLYCERIDE 151 mg/dL H <149 .HDL 34 mg/dL L >50 LDL CALCULATION 106 mg/dL H <99 VLDL CALCULATION 30 mg/dL H <29 NON HDL CHOLESTEROL 136 mg/dL H <129 Dec 21, 2023 09:33 PM [facility] DRUG SCREEN PANEL,URINE Specimen Type: URINE Comment: Presumptive Positive by screen, results not confirmed. Ordering Provider: MONIQUE VÁSQUEZ Report Released Date/Time: Dec 21, 2023 04:56 PM Reporting Lab: [facility] [phone] Performing Lab: [facility] [phone] BARBITURATES Negative Negative AMPHETAMINES Negative Negative COCAINE Negative Negative BENZODIAZEPINES Negative Negative CANNABINOIDS POSITIVE H Negative METHADONE Negative Negative OPIATES Negative Negative PHENCYCLIDINE Negative Negative ETHANOL,URINE Negative Negative DRUG SCREEN CREAT 325.9 mg/dL >20.0 OXYCODONE Negative Negative BUPRENORPHINE Negative Negative TRAMADOL Negative Negative FENTANYL Negative Negative Dec 21, 2023 05:30 PM [facility] ETHANOL Specimen Type: PLASMA No comment entered. Ordering Provider: MONIQUE VÁSQUEZ Report Released Date/Time: Dec 21, 2023 04:56 PM Reporting Lab: [facility] [phone] Performing Lab: [facility] [phone] ETHANOL Negative mg/dL NEGATIVE Dec 21, 2023 05:30 PM [facility] COMPREHENSIVE METABOLIC PANEL+MG Specimen Type: PLASMA No comment entered. Ordering Provider: MONIQUE VÁSQUEZ Report Released Date/Time: Dec 21, 2023 04:56 PM Reporting Lab: [facility] [phone] Performing Lab: [facility] [phone] CREATININE 1.0 mg/dL 0.5-1.0 UREA NITROGEN 9 [...] 71 >60 Dec 21, 2023 05:30 PM [facility] CBC & DIFF Specimen Type: BLOOD Comment: Automated Differential Performed Ordering Provider: MONIQUE VÁSQUEZ Report Released Date/Time: Dec 21, 2023 04:56 PM Reporting Lab: [facility] [phone] Performing Lab: [facility] [phone] WBC 9.50 10*3/uL 4.0-11.0 RBC 4.69 10*6/uL [...] 10*3/uL 0-0.1 December 05, 2023 02:20 PM [facility] EXTRA RED TUBE Specimen Type: SERUM No comment entered. Ordering Provider: NELSON RONQUILLO Report Released Date/Time: December 05, 2023 02:39 PM Reporting Lab: [facility] [phone] Performing Lab: [facility] [phone] EXTRA RED TUBE RECEIVED December 05, 2023 02:20 PM [facility] LACTIC ACID Specimen Type: PLASMA No comment entered. Ordering Provider: NELSON RONQUILLO Report Released Date/Time: December 05, 2023 02:27 PM Reporting Lab: [facility] [phone] Performing Lab: [facility] [phone] LACTIC ACID 1.7 mmol/L 0.5-2.2 December 05, 2023 02:20 PM [facility] PROTHROMBIN TIME/INR Specimen Type: PLASMA No comment entered. Ordering Provider: NELSON RONQUILLO Report Released Date/Time: December 05, 2023 02:27 PM Reporting Lab: [facility] [phone] Performing Lab: [facility] [phone] .INR 1.2 H 0.8-1.1 .PT 13.5 s H 9.4-12.5 December 05, 2023 02:20 PM [facility] CODE BLUE(LYTE,CR,UN,GL,MG,CA,PHOS,TROP) Specimen Type: PLASMA No comment entered. Ordering Provider: NELSON RONQUILLO Report Released Date/Time: December 05, 2023 02:27 PM Reporting Lab: [facility] [phone] Performing Lab: [facility] [phone] CREATININE 1.1 mg/dL H 0.5-1.0 UREA NITROGEN 10 mg/dL 7-20 GLUCOSE 101 mg/dL H 70-100 SODIUM 138 mmol/L 136-145 POTASSIUM 3.8 mmol/L 3.5-5.1 CHLORIDE 107 mmol/L 98-107 CO2 22 mmol/L 22-29 CALCIUM 9.3 mg/dL 8.4-10.2 PHOSPHORUS 3.5 mg/dL 2.3-4.7 MAGNESIUM 1.9 mg/dL 1.6-2.6 ANION GAP 9 mmol/L 5-15 .CREAT EGFR(CKD-EPI) 64 >60 TROPONIN I, HS <3 <14 December 05, 2023 02:20 PM [facility] EXTRA GOLD GEL TUBE Specimen Type: SERUM No comment entered. Ordering Provider: NELSON RONQUILLO Report Released Date/Time: December 05, 2023 02:39 PM Reporting Lab: [facility] [phone] Performing Lab: [facility] [phone] EXTRA GOLD GEL TUBE RECEIVED December 05, 2023 02:20 PM [facility] CBC Specimen Type: BLOOD No comment entered. Ordering Provider: NELSON RONQUILLO Report Released Date/Time: December 05, 2023 02:27 PM Reporting Lab: [facility] [phone] Performing Lab: [facility] [phone] WBC 11.50 10*3/uL H 4.0-11.0 RBC 4.83 10*6/uL 4.0-5.4 HGB 13.6 g/dL 11.5-16 HCT 39.8 34.5-48 MCV 82.4 fL 80-100 MCH 28.2 pg 27-33 MCHC 34.2 g/dL 32.0-37.5 PLT 443 10*3/uL H 150-400 MPV 9.1 fL 7.4-10.4 RDW 12.5 11.5-14.5 December 05, 2023 02:18 PM [facility] POC ABG/ELECTROLYTES Specimen Type: VENOUS BLOOD Comment: FIO2 = 40% Patient Temp: 36.6 C Sample Type = VENOUS Ordering Provider: ULYSSES ELDER Report Released Date/Time: December 06, 2023 08:24 PM Reporting Lab: [facility] [phone] Performing Lab: [facility] [address] POC PH 7.382 7.31-7.41 POC PCO2 35.0 [...] Height Weight Body Mass Index Source Dec 24, 2023 06:26 PM 99.4 77 125/85 18 97 0 [facility] Dec 24, 2023 06:08 AM 98.0 73 117/76 18 2 [facility] Advance Directives: All historical and current [...] SHAHID HURTADO [facility] Encounter Notes: All associated encounter notes This section contains the clinical notes associated to the Encounter. Date/Time Encounter Note(s) Provider Source Dec 24, 2023 10:21 AM PSYCHIATRY E & M N OTE: LOCAL TITLE: PSYCHIATRIC EVALUATION & MANAGEMENT STANDARD TITLE: PSYCHIATRY E & M NOTE DATE OF NOTE: DEC 24, 2023@10:21 ENTRY DATE: DEC 24, 2023@10:22:34 AUTHOR: NELSON MENA COSIGNER: URGENCY: STATUS: COMPLETED PSYCHIATRIC EVALUATION & MANAGEMENT Has ADDENDA PSYCHIATRIC EVALUATION AND MANAGEMENT FOLLOW UP VISIT Duration: 30 minutes Time spent performing psychotherapy services: 16-30 minutes INTERVAL HISTORY: Nursing notes reviewed. No acute safety or behavioral concerns overnight. Patient was seen and evaluated this morning and expresses continued fatigue and drowsiness which is attributed to Seroquel. She also endorsed some increase in anxiety since yesterday. She was agreeable to trying PRN small dose Seroquel in for her anxiety, in addition to her evening dose. She was seen by [facility] coordinator yesterday and is onboard for starting the program January 04. Her ex- visited last night and she still expresses comfort with living with him upon discharge at this time. MEDICATION COMPLIANCE: compliant SIDE EFFECTS: dizziness, drowsiness CURRENT MEDICATIONS: Active Inpatient Medications (including Supplies): [...] text. MOST RECENT VITALS: BLOOD PRESSURE: High: 121/73 (DEC 23, 2023@06:09) Low: 117/76 (DEC 24, 2023@06:08) PAIN: High: 2 (DEC 23, 2023@06:09) Low: 2 (DEC 23, 2023@06:09) PULSE: High: 76 (DEC 23, 2023@06:09) Low: 73 (DEC 24, 2023@06:08) RESPIRATION: High: 18 (DEC 24, 2023@06:08) Low: 18 (DEC 24, 2023@06:08) TEMPERATURE: High: 99.1 (DEC 23, 2023@19:07) Low: 98.0 (DEC 24, 2023@06:08) MENTAL STATUS EXAM: General: Cooperative, no acute distress, some drowsiness Eye Contact: downcast Psychomotor Activity: WNL (Within normal limits) Abnormal Involuntary Movements: None Speech: Regular rate and rhythm, normal volume Mood: the same Affect: Dysphoric Thought Process: Linear, logical, goal oriented Thought [...] recurrent, severe ASSESSMENT & PLAN: 43-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 Today's Changes: -[facility] met yesterday and agreed to begin program with tentative start date of January 04 -Joint decision making agreed upon PRN Seroquel in low doses for her persistent anxiety symptoms in addition to her normal evening dose Medications:continue duloxetine 60mg po qhs, increase quetiapine to 200mg po QHS, trazodone 50mg po QHS PRN, quetiapine DOSE 25mg po PRN -Continue full, voluntary inpatient [...] patient who acknowledges agreement and understanding. Donnell Khalil MS3 /lilia/ NELSON MENA Staff Psychiatrist Signed: 12/24/2023 10:54 12/24/2023 ADDENDUM STATUS: COMPLETED The patient was seen with the medical student today. Case discussed and supervision conducted. I agree with the assessment and plan documented in the attached medical students note from today. /lilia/ NELSON MENA Staff Psychiatrist Signed: 12/24/2023 10:55 NELSON MENA [facility]
--- OUTSIDE RECORDS SUMMARY | 2024-05-04 07:52 | XMS_ITS | Encounter Summary ---
Author Name [facility] [place] Organization [facility] [place] Address [address] [place] [address] Care Team Providers Care Viscose Department Worker Name Role Phone EMIR GRACIA Primary Care Provider Unavailprince e Selected Encounter This section includes the information on record at [place] for the Encounter. Date/Time Encounter Type Encounter Description Reason Provider Source Dec 22, 2023 01:30 PM THERAPEUTIC ACTIVITIES OCCUPATIONAL THERAPY ICD-10-CM F32.9 Major depressive disorder, single episode, unspecified FERNANDA WELCH [facility] Encounter Template Text not used by [place] Assessments - Encounter Diagnoses This section includes the primary and secondary diagnoses documented for the Encounter. Date/Time Primary/Secondary Diagnosis Diagnosis Name Provider Source Dec 22, 2023 02:48 PM PRIMARY Major depressive disorder, single episode, unspecified MARTA WELCH [facility] Dec 22, 2023 02:48 PM SECONDARY Limitation of activities due to disability MARTA WELCH [facility] Plan of Treatment: Future Appointments [...] 20 appointments. The data comes from all [facility]. Appointment Date/Time Appointment Type Appointme nt Facility Name Dec 29, 2023 11:30 AM AMBULATORY [place] [facility] Dec 30, 2023 10:30 AM AMBULATORY - MEDICINE [place] [facility] Dec 30, 2023 01:00 PM AMBULATORY - PSYCHIATRY [place] [facility] Jan 04, 2024 02:00 PM AM[place]ORY [place] [facility] Jan 05, 2024 08:45 AM [facility] Jan 05, 2024 10:00 [facility] Jan 05, 2024 11:00 AM [facility] Jan 05[facility] 2024 12:00 [facility] Jan 05, 2024 12:30 [facility] Jan 05, 2024 02:30 PM [facility] Jan 06, 2024 08:45 AM [facility] Jan 06, 2024 10:00 AM [facility] Jan 06, 2024 11:00 AM [facility] Jan 08, 2024 08:45 AM [facility] Jan 08, 2024 10:00 AM [facility] Jan 08[facility] 2024 11:00 AM [facility] Jan 09, 2024 08:45 AM [facility] Jan 09, 2024 10:00 AM AM[facility]ULAT[facility] Jan 09, 2024 11:00 AM [facility] Jan 12, 2024 08:45 AM [facility] Active, Pending, and Scheduled Orders This section includes a listing of several types of active, pending, and scheduled orders, including clinic medications orders, diagnostic test orders, procedure orders and consult orders; where the start date of the order is 45 days before the date of the Encounter or 45 days after the date of theEncounter. The data comes from all [facility]. Test Date/Time Test Type Test Details Facility Name November 19, 2023 12:00 AM Laboratory - Chemi stry Order TTG AB,IGA SERUM SP ONCE [facility] November 19, 2023 12:00 AM Laboratory - Chemi stry Order ELASTASE-1,PANC STL STOOL FECES SP ONCE [facility] November 19, 2023 12:00 AM Laboratory - Chemi stry Order IGA PLASMA SP ONCE [facility] November 19, 2023 12:00 AM Laboratory - Chemi stry Order ENTERIC PATHOGEN PCR PANEL STOOL FECES SP ONCE [facility] November 19, 2023 12:00 AM Laboratory - Microbiology Order OVA & PARASITES FECAL FECES SP ONCE [facility] December 05, 2023 02:27 PM Laboratory - Chemi stry Order BLOOD GAS PANEL FOR ICU ARTERIAL BLOOD STAT WC [facility] December 12, 2023 03:21 PM Laboratory - Chemi stry Order CALPROTECTIN,STOOL STOOL FECES SP ONCE [facility] Dec 21, 2023 04:56 PM Laboratory - Chemi stry Order SALICYLATE SERUM STAT SP [facility] Lab Results: +/- 30 days [...] Range Comment Dec 22, 2023 06:44 AM [facility] HEMOGLOBIN A1C Specimen Type: BLOOD [...] Dec 21, 2023 08:58 PM Reporting Lab: [facility] [phone] Performing Lab: [facility] [phone] HEMOGLOBIN A1C 4.9 4.0-6.0 Dec 22, 2023 06:44 AM [facility] B 12 Specimen Type: SERUM No comment entered. Ordering Provider: Celeste DUKES Report Released Date/Time: Dec 21, 2023 08:58 PM Reporting Lab: [facility] [phone] Performing Lab: [facility] [id number] B 12 381 pg/mL 213-816 Dec 22, 2023 06:44 AM [facility] VIT D 25-OH,TOTAL Specimen Type: SERUM No comment entered. Ordering Provider: Celeste DUKES Report Released Date/Time: Dec 21, 2023 08:58 PM Reporting Lab: [facility] [id number] Performing Lab: [facility] [phone] VIT D 25-OH,TOTAL 29 ng/mL 12-50 Dec 22, 2023 06:44 AM [facility] TSH W/REFLEX TO FREE T4 Specimen Type: PLASMA No comment entered. Ordering Provider: Celeste DUKES Report Released Date/Time: Dec 21, 2023 08:58 PM Reporting Lab: [facility] [phone] Performing Lab: [facility] [address] TSH 0.36 u[IU]/mL 0.35-4.94 Dec 22, 2023 06:44 AM [facility] FOLATE Specimen Type: PLASMA No comment entered. Ordering Provider: Celeste DUKES Report Released Date/Time: Dec 21, 2023 08:58 PM Reporting Lab: [facility] [phone] Performing Lab: [facility] [phone] FOLATE 7.1 ng/mL >7.0 Dec 22, 2023 06:44 AM [facility] LIPID PANEL,FASTING Specimen Type: PLASMA No comment entered. Ordering Provider: Celeste DUKES Report Released Date/Time: Dec 21, 2023 08:58 PM Reporting Lab: [facility] [phone] Performing Lab: [facility] [phone] CHOLESTEROL 170 mg/dL <199 TRIGLYCERIDE 151 mg/dL H <149 .HDL 34 mg/dL L >50 LDL CALCULATION 106 mg/dL H <99 VLDL CALCULATION 30 mg/dL H <29 NON HDL CHOLESTEROL 136 mg/dL H <129 Dec 21, 2023 09:33 PM [facility] DRUG SCREEN PANEL,URINE Specimen Type: URINE Comment: Presumptive Positive by screen, results not confirmed. Ordering Provider: MONIQUE VÁSQUEZ Report Released Date/Time: Dec 21, 2023 04:56 PM Reporting Lab: [facility] [phone] Performing Lab: [facility] [phone] BARBITURATES Negative Negative AMPHETAMINES Negative Negative COCAINE Negative Negative BENZODIAZEPINES Negative Negative CANNABINOIDS POSITIVE H Negative METHADONE Negative Negative OPIATES Negative Negative PHENCYCLIDINE Negative Negative ETHANOL,URINE Negative Negative DRUG SCREEN CREAT 325.9 mg/dL >20.0 OXYCODONE Negative Negative BUPRENORPHINE Negative Negative TRAMADOL Negative Negative FENTANYL Negative Negative Dec 21, 2023 05:30 PM [facility] ETHANOL Specimen Type: PLASMA No comment entered. Ordering Provider: MONIQUE VÁSQUEZ Report Released Date/Time: Dec 21, 2023 04:56 PM Reporting Lab: [facility] [id number] Performing Lab: [facility] [phone] ETHANOL Negative mg/dL NEGATIVE Dec 21, 2023 05:30 PM [facility] CBC & DIFF Specimen Type: BLOOD Comment: Automated Differential Performed Ordering Provider: MONIQUE VÁSQUEZ Report Released Date/Time: Dec 21, 2023 04:56 PM Reporting Lab: [facility] [phone] Performing Lab: [facility] [phone] WBC 9.50 10*3/uL 4.0-11.0 RBC 4.69 10*6/uL [...] 10*3/uL 0-0.5 ABS BASO 0.07 10*3/uL 0-0.2 IG(META,MYELO,HI O) 0.3 ABS IMMATURE GRAN 0.03 10*3/uL 0-0.1 Dec 21, 2023 05:30 PM [facility] COMPREHENSIVE METABOLIC PANEL+MG Specimen Type: PLASMA No comment entered. Ordering Provider: MONIQUE VÁSQUEZ Report Released Date/Time: Dec 21, 2023 04:56 PM Reporting Lab: [facility] [phone] Performing Lab: [facility] [address] CREATININE 1.0 mg/dL 0.5-1.0 UREA NITROGEN 9 [...] 71 >60 December 05, 2023 02:20 PM [facility] EXTRA RED TUBE Specimen Type: SERUM No comment entered. Ordering Provider: NELSON RONQUILLO Report Released Date/Time: December 05, 2023 02:39 PM Reporting Lab: [facility] [phone] Performing Lab: [facility] [phone] EXTRA RED TUBE RECEIVED December 05, 2023 02:20 PM [facility] LACTIC ACID Specimen Type: PLASMA No comment entered. Ordering Provider: NELSON RONQUILLO Report Released Date/Time: December 05, 2023 02:27 PM Reporting Lab: [facility] [phone] Performing Lab: [facility] [phone] LACTIC ACID 1.7 mmol/L 0.5-2.2 December 05, 2023 02:20 PM [facility] PROTHROMBIN TIME/INR Specimen Type: PLASMA No comment entered. Ordering Provider: NELSON RONQUILLO Report Released Date/Time: December 05, 2023 02:27 PM Reporting Lab: [facility] [phone] Performing Lab: [facility] [phone] .INR 1.2 H 0.8-1.1 .PT 13.5 s H 9.4-12.5 December 05, 2023 02:20 PM [facility] EXTRA GOLD GEL TUBE Specimen Type: SERUM No comment entered. Ordering Provider: NELSON RONQUILLO Report Released Date/Time: December 05, 2023 02:39 PM Reporting Lab: [facility] [phone] Performing Lab: [facility] [address] EXTRA GOLD GEL TUBE RECEIVED December 05, 2023 02:20 PM [facility] CBC Specimen Type: BLOOD No comment entered. Ordering Provider: NELSON RONQUILLO Report Released Date/Time: December 05, 2023 02:27 PM Reporting Lab: [facility] [phone] Performing Lab: [facility] [phone] WBC 11.50 10*3/uL H 4.0-11.0 RBC 4.83 10*6/uL 4.0-5.4 HGB 13.6 g/dL 11.5-16 HCT 39.8 34.5-48 MCV 82.4 fL 80-100 MCH 28.2 pg 27-33 MCHC 34.2 g/dL 32.0-37.5 PLT 443 10*3/uL H 150-400 MPV 9.1 fL 7.4-10.4 RDW 12.5 11.5-14.5 December 05, 2023 02:20 PM [facility] CODE BLUE(LYTE,CR,UN,GL,MG,CA,PHOS,TROP) Specimen Type: PLASMA No comment entered. Ordering Provider: NELSON RONQUILLO Report Released Date/Time: December 05, 2023 02:27 PM Reporting Lab: [facility] [phone] Performing Lab: [facility] [address] CREATININE 1.1 mg/dL H 0.5-1.0 UREA NITROGEN 10 mg/dL 7-20 GLUCOSE 101 mg/dL H 70-100 SODIUM 138 mmol/L 136-145 POTASSIUM 3.8 mmol/L 3.5-5.1 CHLORIDE 107 mmol/L 98-107 CO2 22 mmol/L 22-29 CALCIUM 9.3 mg/dL 8.4-10.2 PHOSPHORUS 3.5 mg/dL 2.3-4.7 MAGNESIUM 1.9 mg/dL 1.6-2.6 ANION GAP 9 mmol/L 5-15 .CREAT EGFR(CKD-EPI) 64 >60 TROPONIN I, HS <3 <14 December 05, 2023 02:18 PM [facility] POC ABG/ELECTROLYTES Specimen Type: VENOUS BLOOD Comment: FIO2 = 40% Patient Temp: 36.6 C Sample Type = VENOUS Ordering Provider: ULYSSES ELDER Report Released Date/Time: December 06, 2023 08:24 PM Reporting Lab: [facility] [address] Performing Lab: [facility] [address] POC PH 7.382 7.31-7.41 POC PCO2 35.0 [...] PM 98.3 59 117/81 18 97 0 [facility] Dec 22, 2023 10:32 AM 2 [facility] Dec 22, 2023 10:18 AM 201.1 31 [facility] Dec 22, 2023 09:17 AM 98.1 81 116/81 96 2 [facility] Advance Directives: All historical and current Section Date Range: From patient's date of to the date document was created. This section includes ALL of a patient's completed or amended [place] Advance and Rescinded Directives. The entries below indicate that a directive exists for the patient, but an actual copy is not included with this document. The data comes from all [place] facilities. Date Advance Directives Provider Source Jan 05, 2024 ADVANCE DIRECTIVE DISCUSSION SHAHID HURTADO [facility] Encounter Notes: All associated encounter notes This section contains the clinical notes associated to the Encounter. Date/Time Encounter Note(s) Provider Source Dec 22, 2023 02:41 PM OCCUPATIONAL THERA PY NOTE: LOCAL TITLE: OT-PROGRESS NOTE STANDARD TITLE: OCCUPATIONAL THERAPY NOTE DATE OF NOTE: DEC 22, 2023@14:41 ENTRY DATE: DEC 22, 2023@14:41:40 AUTHOR: MARTA WELCH EXP COSIGNER: URGENCY: STATUS: COMPLETED Occupational Therapy Skills Group Name of Session: Discussion Group Group Shop Manager: Marta Welch Date: December 22, 2023 Diagnosis: MDD CPT Code: 91952 Length: 60min Number of patients: 3 OBJECTIVES: Strength Spotting 1. Understand the need to recognize positive traits to promote recovery 2. Identify 2-3 positive self traits 3. Share how these traits have proven helpful in difficult circumstances Patient Education: Readiness to learn: Attended session, engaged appropriately Patient Understanding: Appeared to understand the material and concepts presented Goal: Veterans will engage in 1-2 OT groups/individual activities per day to explore healthy coping skills, regulate mood, promote supportive social contact and increase motivation through successful participation. SESSION CONTENT:The purpose of the session is to provide an opportunity to explore and recognize strengths and positive qualities about oneself. Discussed the importance of gratitude towards oneself and how one's positive qualities have proven beneficial in difficult times. ATTENDED: 60minutes RESPONSE: Debbie appears with flat affect and slow responses, though stays for entire group and completes activity. She requires extra time to recall positive traits about herself, but demonstrated ability to complete each category with some cueing. She acknowledges that this was more difficult than she would have originally anticipated. Debbie is withdrawan during group. 09/20 group objectives met. /lilia/ MARTA WELCH Occupational Therapist Signed: 12/22/2023 14:48 MARTA WELCH [facility]
--- OUTSIDE RECORDS SUMMARY | 2024-05-04 07:52 | XMS_ITS ---
Author Name [facility] [place] Organization [facility] [place] Address [address] [place] [address] Care Team Providers Care Sanitation Technician Name Role Phone EMIR GRACIA Primary Care Provider Unavailabl e Selected Encounter This section includes the information on record at [place] for the Encounter. Date/Time Encounter Type Encounter Description Reason Provider Source Dec 25, 2023 02:00 PM [facility] IVNTJ GRP EA ADD RECREATION THERAPY SERVICE ICD-10-CM Z51.89 Encounter for other specified aftercare CANDICE ACOSTA Lorie Encounter Template Text not used by [place] Assessments - Encounter Diagnoses This section includes the primary and secondary diagnoses documented for the Encounter. Date/Time Primary/Secondary Diagnosis Diagnosis Name Provider Source Dec 25, 2023 09:42 PM PRIMARY Encounter for other specified aftercare CANDICE ACOSTA [facility] Plan of Treatment: Future [...] 29, 2023 11:30 AM [facility]BUL[facility] [place] [facility] Dec 30, 2023 10:30 AM AMBULATORY - MEDICINE LEEANNMindi [facility] Dec 30, 2023 01:00 PM AMBULATORY - PSYCHIATRY [facility] Jan 04, 2024 02:00 PM AMBULATORY - NONE [facility] Jan 05, 2024 08:45 AM [facility] Jan 05, 2024 10:00 AM AMBULAT[facility] [place] [facility] Jan 05, 2024 11:00 AM AMBULAT[facility] [place] [facility] Jan 05, 2024 12:00 PM AMBULATORY [facility]ATRY [place] [facility] Jan 05, 2024 12:30 PM AM[facility] [place] [facility] Jan 05, 2024 02:30 PM [facility] Jan 06, 2024 08:45 AM AMBULATORY - PSYCHIATRY [place] [facility] Jan 06, 2024 10:00 AM [facility]UL[facility] Jan 06, 2024 11:00 AM AMBULAT[facility] [place] [facility] Jan 08, 2024 08:45 AM [facility] Jan 08, 2024 10:00 AM AMBULATORY - PSYCHIATRY [place] [facility] Jan 08, 2024 11:00 AM AMBULAT[facility] Jan 09, 2024 08:45 AM AMBULATORY - PSYCHIATRY [place] [facility] Jan 09, 2024 10:00 AM AMBULATORY - PSYCHIATRY [place] [facility] Jan 09, 2024 11:00 AM AMBULAT[facility] Jan 12, 2024 08:45 AM AMBULATORY - PSYCHIATRY [place] [facility] Active, Pending, and Scheduled Orders [...] Chemi stry Order IGA PLASMA SP ONCE [facility] November 19, 2023 12:00 AM Laboratory - Chemi stry Order TTG AB,IGA SERUM SP ONCE [facility] November 19, 2023 12:00 AM Laboratory - Chemi stry Order ELASTASE-1,PANC STL STOOL FECES SP ONCE [facility] November 19, 2023 12:00 AM Laboratory - Chemi stry Order ENTERIC PATHOGEN PCR PANEL STOOL FECES SP ONCE [facility] November 19, 2023 12:00 AM Laboratory - Microbiology Order OVA & PARASITES FECAL FECES SP ONCE [facility] December 05, 2023 02:27 PM Laboratory - Chemi stry Order BLOOD GAS PANEL FOR ICU ARTERIAL BLOOD STAT WC [facility] December 12, 2023 03:21 PM Laboratory - Chemi stry Order CALPROTECTIN,STOOL STOOL FECES SP ONCE [facility] Dec 21, 2023 04:56 PM Laboratory - Chemi stry Order SALICYLATE SERUM STAT SP [facility] Lab Results: +/- 30 days of [...] Range Comment Dec 22, 2023 06:44 AM [facility] HEMOGLOBIN A1C Specimen Type: BLOOD Comment: [...] Dec 21, 2023 08:58 PM Reporting Lab: [facility] [phone] Performing Lab: [facility] [phone] HEMOGLOBIN A1C 4.9 4.0-6.0 Dec 22, 2023 06:44 AM [facility] B 12 Specimen Type: SERUM No comment entered. Ordering Provider: Celeste DUKES Report Released Date/Time: Dec 21, 2023 08:58 PM Reporting Lab: [facility] [phone] Performing Lab: [facility] [phone] B 12 381 pg/mL 213-816 Dec 22, 2023 06:44 AM [facility] VIT D 25-[place],TOTAL Specimen Type: SERUM No comment entered. Ordering Provider: Celeste DUKES Report Released Date/Time: Dec 21, 2023 08:58 PM Reporting Lab: [facility] [phone] Performing Lab: [facility] [phone] VIT D 25-OH,TOTAL 29 ng/mL 12-50 Dec 22, 2023 06:44 AM [facility] FOLATE Specimen Type: PLASMA No comment entered. Ordering Provider: Celeste DUKES Report Released Date/Time: Dec 21, 2023 08:58 PM Reporting Lab: [facility] [phone] Performing Lab: [place] [id number] FOLATE 7.1 ng/mL >7.0 Dec 22, 2023 06:44 AM [facility] TSH W/REFLEX TO FREE T4 Specimen Type: PLASMA No comment entered. Ordering Provider: Celeste DUKES Report Released Date/Time: Dec 21, 2023 08:58 PM Reporting Lab: [facility] [phone] Performing Lab: [facility] [phone] TSH 0.36 u[IU]/mL 0.35-4.94 Dec 22, 2023 06:44 AM [facility] LIPID PANEL,FASTING Specimen Type: PLASMA No comment entered. Ordering Provider: Celeste DUKES Report Released Date/Time: Dec 21, 2023 08:58 PM Reporting Lab: [facility] [phone] Performing Lab: [facility] [phone] CHOLESTEROL 170 mg/dL <199 TRIGLYCERIDE 151 mg/dL H <149 .HDL 34 mg/dL L >50 LDL CALCULATION 106 mg/dL H <99 VLDL CALCULATION 30 mg/dL H <29 NON HDL CHOLESTEROL 136 mg/dL H <129 Dec 21, 2023 09:33 PM [facility] DRUG SCREEN PANEL,URINE Specimen Type: URINE Comment: Presumptive Positive by screen, results not confirmed. Ordering Provider: MONIQUE VÁSQUEZ Report Released Date/Time: Dec 21, 2023 04:56 PM Reporting Lab: [facility] [phone] Performing Lab: [facility] [phone] BARBITURATES Negative Negative AMPHETAMINES Negative Negative COCAINE Negative Negative BENZODIAZEPINES Negative Negative CANNABINOIDS POSITIVE H Negative METHADONE Negative Negative OPIATES Negative Negative PHENCYCLIDINE Negative Negative ETHANOL,URINE Negative Negative DRUG SCREEN CREAT 325.9 mg/dL >20.0 OXYCODONE Negative Negative BUPRENORPHINE Negative Negative TRAMADOL Negative Negative FENTANYL Negative Negative Dec 21, 2023 05:30 PM [facility] ETHANOL Specimen Type: PLASMA No comment entered. Ordering Provider: MONIQUE VÁSQUEZ Report Released Date/Time: Dec 21, 2023 04:56 PM Reporting Lab: [facility] [phone] Performing Lab: [facility] [phone] ETHANOL Negative mg/dL NEGATIVE Dec 21, 2023 05:30 PM [facility] COMPREHENSIVE METABOLIC PANEL+MG Specimen Type: PLASMA No comment entered. Ordering Provider: MONIQUE VÁSQUEZ Report Released Date/Time: Dec 21, 2023 04:56 PM Reporting Lab: [facility] [phone] Performing Lab: [facility] [phone] CREATININE 1.0 mg/dL 0.5-1.0 UREA NITROGEN 9 [...] 71 >60 Dec 21, 2023 05:30 PM [facility] CBC & DIFF Specimen Type: BLOOD Comment: Automated Differential Performed Ordering Provider: MONIQUE VÁSQUEZ Report Released Date/Time: Dec 21, 2023 04:56 PM Reporting Lab: [facility] [phone] Performing Lab: [facility] [phone] WBC 9.50 10*3/uL 4.0-11.0 RBC 4.69 10*6/uL [...] 10*3/uL 0-0.5 ABS BASO 0.07 10*3/uL 0-0.2 IG(META,MYELO,ME O) 0.3 ABS IMMATURE GRAN 0.03 10*3/uL 0-0.1 December 05, 2023 02:20 PM [facility] EXTRA RED TUBE Specimen Type: SERUM No comment entered. Ordering Provider: NELSON RONQUILLO Report Released Date/Time: December 05, 2023 02:39 PM Reporting Lab: [facility] [phone] Performing Lab: [facility] [phone] EXTRA RED TUBE RECEIVED December 05, 2023 02:20 PM [facility] LACTIC ACID Specimen Type: PLASMA No comment entered. Ordering Provider: NELSON RONQUILLO Report Released Date/Time: December 05, 2023 02:27 PM Reporting Lab: [facility] [phone] Performing Lab: [facility] [phone] LACTIC ACID 1.7 mmol/L 0.5-2.2 December 05, 2023 02:20 PM [facility] PROTHROMBIN TIME/INR Specimen Type: PLASMA No comment entered. Ordering Provider: NELSON RONQUILLO Report Released Date/Time: December 05, 2023 02:27 PM Reporting Lab: [facility] [phone] Performing Lab: [facility] [phone] .INR 1.2 H 0.8-1.1 .PT 13.5 s H 9.4-12.5 December 05, 2023 02:20 PM [facility] CODE BLUE(LYTE,CR,UN,GL,MG,CA,PHOS,TROP) Specimen Type: PLASMA No comment entered. Ordering Provider: NELSON RONQUILLO Report Released Date/Time: December 05, 2023 02:27 PM Reporting Lab: [facility] [phone] Performing Lab: [facility] [phone] CREATININE 1.1 mg/dL H 0.5-1.0 UREA NITROGEN 10 mg/dL 7-20 GLUCOSE 101 mg/dL H 70-100 SODIUM 138 mmol/L 136-145 POTASSIUM 3.8 mmol/L 3.5-5.1 CHLORIDE 107 mmol/L 98-107 CO2 22 mmol/L 22-29 CALCIUM 9.3 mg/dL 8.4-10.2 PHOSPHORUS 3.5 mg/dL 2.3-4.7 MAGNESIUM 1.9 mg/dL 1.6-2.6 ANION GAP 9 mmol/L 5-15 .CREAT EGFR(CKD-EPI) 64 >60 TROPONIN I, HS <3 <14 December 05, 2023 02:20 PM [facility] EXTRA GOLD GEL TUBE Specimen Type: SERUM No comment entered. Ordering Provider: NELSON RONQUILLO Report Released Date/Time: December 05, 2023 02:39 PM Reporting Lab: [facility] [phone] Performing Lab: [facility] [phone] EXTRA GOLD GEL TUBE RECEIVED December 05, 2023 02:20 PM [facility] CBC Specimen Type: BLOOD No comment entered. Ordering Provider: NELSON RONQUILLO Report Released Date/Time: December 05, 2023 02:27 PM Reporting Lab: [facility] [phone] Performing Lab: [facility] [phone] WBC 11.50 10*3/uL H 4.0-11.0 RBC 4.83 10*6/uL 4.0-5.4 HGB 13.6 g/dL 11.5-16 HCT 39.8 34.5-48 MCV 82.4 fL 80-100 MCH 28.2 pg 27-33 MCHC 34.2 g/dL 32.0-37.5 PLT 443 10*3/uL H 150-400 MPV 9.1 fL 7.4-10.4 RDW 12.5 11.5-14.5 December 05, 2023 02:18 PM [facility] POC ABG/ELECTROLYTES Specimen Type: VENOUS BLOOD Comment: FIO2 = 40% Patient Temp: 36.6 C Sample Type = VENOUS Ordering Provider: ULYSSES ELDER Report Released Date/Time: December 06, 2023 08:24 PM Reporting Lab: [facility] [phone] Performing Lab: [facility] [address] POC PH 7.382 7.31-7.41 POC PCO2 35.0 [...] PM 98.9 87 117/80 18 97 0 [facility] Dec 25, 2023 06:18 AM 98.1 96 115/77 2 206.0 32 [facility] Advance Directives: All historical and current Section Date Range: From patient's date of to the date document was created. This section includes ALL of a patient's completed or amended [place] Advance and Rescinded Directives. The entries below indicate that a directive exists for the patient, but an actual copy is not included with this document. The data comes from all [place] facilities. Date Advance Directives Provider Source Jan 05, 2024 ADVANCE DIRECTIVE DISCUSSION SHAHID HURTADO [facility] Encounter Notes: All associated encounter notes This section contains the clinical notes associated to the Encounter. Date/Time Encounter Note(s) Provider Source Dec 25, 2023 02:00 PM RECREATIONAL THERA PY NOTE: LOCAL TITLE: REC THERAPY-MUSIC THERAPY STANDARD TITLE: RECREATIONAL THERAPY NOTE DATE OF NOTE: DEC 25, 2023@14:00 ENTRY DATE: DEC 25, 2023@21:28:57 AUTHOR: CANDICE ACOSTA EXP COSIGNER: URGENCY: STATUS: COMPLETED MUSIC THERAPY GROUP: ACTIVE MUSIC-MAKING AND DISCUSSION NNP: RAGHU Winters,ANTHONY,JAKY MEDIUM: Demonstration/activity and discussion OBJECTIVES: 1) [place] will participate in the Music Therapy group shown by making song choices and/or singing, listening, and socializing. 2) [place] will discuss song memories and/or emotions related to music. GOALS: 1) Socialization & interpersonal connection 2) Increase attention span and ability to focus 3) Emotional expression 4) Positive affect 5) Cognitive stimulation 6) Relaxation 7) Physical stimulation through singing 8) Increase self-esteem DATE/TIME OF GROUP: December 25, 2023; 2:00-3:00pm NUMBER ATTENDIN Veterans GROUP LENGTH: 60 minutes DIAGNOSIS: Z51.89 SESSION CONTENT: Music Therapist met with Veterans in the OT clinic. Facilitated Music Therapy session. Discussed benefits of active music-making, i.e., connection with others, relaxation, enjoyment, expression, and what they might try on their own in the community. 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 She expressed interest in receiving information about the [place]. [place] chose songs, sang, socialized with Legal Transcriptionist and other Veterans. She met objective 1 and goals 1,4,5,6. PLAN: Legal Transcriptionist will return to for group Music Therapy sessions 2xweek. /lilia/ RAGHU ODOM,BC-DMT,MT- CREATIVE ARTS THERAPIST Signed: 12/25/2023 21:46 CANDICE ACOSTA [facility]
--- OUTSIDE RECORDS SUMMARY | 2024-05-04 07:52 | XMS_ITS | Encounter Summary ---
Author Name [facility] [place] Organization [facility] [place] Address [address] [place] [address] Care Team Providers Care Emergency Dispatcher Name Role Phone EMIR GRACIA Primary Care Provider Unavailabl e Selected Encounter This section includes the information on record at [place] for the Encounter. Date/Time Encounter Type Encounter Description Reason Pro vider Source Dec 22, 2023 11:10 AM Inpatient Visit CLINICAL PHARMACY [facility] Encounter Template Text not used by [place] Plan of Treatment: Future Appointments (+ 6 months) and Future Tests (+/- 45 days) The Plan of Treatment section includes future care activities for the patient from all [place] treatmentfacritical access hospitalities. This section includes future appointments and future orders which are active, pending or scheduled. Future Appointments This section includes appointments that were scheduled to occur 6 months from the date of the Encounter, up to a maximum of 20 appointments. The data comes from all [place] treatment facilities. Appointment Date/Time Appointment Type Appointme nt Facility Name Dec 29, 2023 11:30 AM AMBULATORY - PSYCHIATRY [facility] Dec 30, 2023 10:30 AM AMBULATORY - MEDICINE [facility] Dec 30, 2023 01:00 PM AMBULATORY - PSYCHIATRY [facility] Jan 04, 2024 02:00 PM AMBULATORY - NONE [facility] Jan 05, 2024 08:45 AM AMBULATORY - PSYCHIATRY [facility] Jan 05, 2024 10:00 AM AMBULATORY - PSYCHIATRY [facility] Jan 05, 2024 11:00 AM AMBULATORY - PSYCHIATRY [facility] Jan 05, 2024 12:00 PM AMBULATORY - PSYCHIATRY [facility] Jan 05, 2024 12:30 PM AMBULATORY - PSYCHIATRY [facility] Jan 05, 2024 02:30 PM AMBULATORY - PSYCHIATRY [facility] Jan 06, 2024 08:45 AM AMBULATORY - PSYCHIATRY [facility] Jan 06, 2024 10:00 AM AMBULATORY - PSYCHIATRY [facility] Jan 06, 2024 11:00 AM AMBULATORY - PSYCHIATRY [facility] Jan 08, 2024 08:45 AM AMBULATORY - PSYCHIATRY [facility] Jan 08, 2024 10:00 AM AMBULATORY - PSYCHIATRY [facility] Jan 08, 2024 11:00 AM AMBULATORY - PSYCHIATRY [facility] Jan 09, 2024 08:45 AM AMBULATORY - PSYCHIATRY [facility] Jan 09, 2024 10:00 AM AMBULATORY - PSYCHIATRY [facility] Jan 09, 2024 11:00 AM AMBULATORY - PSYCHIATRY [facility] Jan 12, 2024 08:45 AM AMBULATORY - PSYCHIATRY [facility] Active, Pending, and Scheduled Orders This section includes a listing of several types of active, pending, and scheduled orders, including clinic medications orders, diagnostic test orders, procedure orders and consult orders; where the start date of the order is 45 days before the date of the Encounter or 45 days after the date of theEncounter. The data comes from all [facility] facilities. Test Date/Time Test Type Test Details Facility Name November 19, 2023 12:00 AM Laboratory - Chemi stry Order IGA PLASMA SP ONCE [facility] November 19, 2023 12:00 AM Laboratory - Chemi stry Order TTG AB,IGA SERUM SP ONCE [facility] November 19, 2023 12:00 AM Laboratory - Chemi stry Order ELASTASE-1,PANC STL STOOL FECES SP ONCE [facility] November 19, 2023 12:00 AM Laboratory - Chemi stry Order ENTERIC PATHOGEN PCR PANEL STOOL FECES SP ONCE [facility] November 19, 2023 12:00 AM Laboratory - Microbiology Order OVA & PARASITES FECAL FECES SP ONCE [facility] December 05, 2023 02:27 PM Laboratory - Chemi stry Order BLOOD GAS PANEL FOR ICU ARTERIAL BLOOD STAT WC [facility] December 12, 2023 03:21 PM Laboratory - Chemi stry Order CALPROTECTIN,STOOL STOOL FECES SP ONCE [facility] Dec 21, 2023 04:56 PM Laboratory - Chemi stry Order SALICYLATE SERUM STAT SP [facility] Lab Results: +/- 30 days of the encounter This section includes the Chemistry and Hematology Lab Results on record with [place] for the patient. Radiology Reports and Pathology Reports are provided separately, in subsequent sections. Lab Results This section contains the Chemistry/Hematology Results that were resulted 30 days before or 30 daysafter the date of the Encounter. Date/Time Source Result Type Result - Unit Interpretation Reference Range Comment Dec 22, 2023 06:44 AM [facility] HEMOGLOBIN A1C Specimen Type: BLOOD Comment: [...] Dec 21, 2023 08:58 PM Reporting Lab: [facility] [id number] Performing Lab: [facility] [phone] HEMOGLOBIN A1C 4.9 4.0-6.0 Dec 22, 2023 06:44 AM [facility] B 12 Specimen Type: SERUM No comment entered. Ordering Provider: Celeste DUKES Report Released Date/Time: Dec 21, 2023 08:58 PM Reporting Lab: [facility] [id number] Performing Lab: [facility] [phone] B 12 381 pg/mL 213-816 Dec 22, 2023 06:44 AM [facility] VIT D 25-OH,TOTAL Specimen Type: SERUM No comment entered. Ordering Provider: Celeste DUKES Report Released Date/Time: Dec 21, 2023 08:58 PM Reporting Lab: [facility] [phone] Performing Lab: [facility] [phone] VIT D 25-OH,TOTAL 29 ng/mL 12-50 Dec 22, 2023 06:44 AM [facility] FOLATE Specimen Type: PLASMA No comment entered. Ordering Provider: Celeste DUKES Report Released Date/Time: Dec 21, 2023 08:58 PM Reporting Lab: [facility] [phone] Performing Lab: [facility] [phone] FOLATE 7.1 ng/mL >7.0 Dec 22, 2023 06:44 AM [facility] TSH W/REFLEX TO FREE T4 Specimen Type: PLASMA No comment entered. Ordering Provider: Celeste DUKES Report Released Date/Time: Dec 21, 2023 08:58 PM Reporting Lab: [facility] [id number] Performing Lab: [facility] [phone] TSH 0.36 u[IU]/mL 0.35-4.94 Dec 22, 2023 06:44 AM [facility] LIPID PANEL,FASTING Specimen Type: PLASMA No comment entered. Ordering Provider: Celeste DUKES Report Released Date/Time: Dec 21, 2023 08:58 PM Reporting Lab: [facility] [phone] Performing Lab: [facility] [phone] CHOLESTEROL 170 mg/dL <199 TRIGLYCERIDE 151 mg/dL H <149 .HDL 34 mg/dL L >50 LDL CALCULATION 106 mg/dL H <99 VLDL CALCULATION 30 mg/dL H <29 NON HDL CHOLESTEROL 136 mg/dL H <129 Dec 21, 2023 09:33 PM [facility] DRUG SCREEN PANEL,URINE Specimen Type: URINE Comment: Presumptive Positive by screen, results not confirmed. Ordering Provider: MONIQUE VÁSQUEZ Report Released Date/Time: Dec 21, 2023 04:56 PM Reporting Lab: [facility] [phone] Performing Lab: [facility] [phone] BARBITURATES Negative Negative AMPHETAMINES Negative Negative COCAINE Negative Negative BENZODIAZEPINES Negative Negative CANNABINOIDS POSITIVE H Negative METHADONE Negative Negative OPIATES Negative Negative PHENCYCLIDINE Negative Negative ETHANOL,URINE Negative Negative DRUG SCREEN CREAT 325.9 mg/dL >20.0 OXYCODONE Negative Negative BUPRENORPHINE Negative Negative TRAMADOL Negative Negative FENTANYL Negative Negative Dec 21, 2023 05:30 PM [facility] ETHANOL Specimen Type: PLASMA No comment entered. Ordering Provider: MONIQUE VÁSQUEZ Report Released Date/Time: Dec 21, 2023 04:56 PM Reporting Lab: [facility] [phone] Performing Lab: [facility] [phone] ETHANOL Negative mg/dL NEGATIVE Dec 21, 2023 05:30 PM [facility] COMPREHENSIVE METABOLIC PANEL+MG Specimen Type: PLASMA No comment entered. Ordering Provider: MONIQUE VÁSQUEZ Report Released Date/Time: Dec 21, 2023 04:56 PM Reporting Lab: [facility] [phone] Performing Lab: [facility] [phone] CREATININE 1.0 mg/dL 0.5-1.0 UREA NITROGEN 9 [...] 71 >60 Dec 21, 2023 05:30 PM [facility] CBC & DIFF Specimen Type: BLOOD Comment: Automated Differential Performed Ordering Provider: MONIQUE VÁSQUEZ Report Released Date/Time: Dec 21, 2023 04:56 PM Reporting Lab: [facility] [phone] Performing Lab: [facility] [phone] WBC 9.50 10*3/uL 4.0-11.0 RBC 4.69 10*6/uL [...] 10*3/uL 0-0.5 ABS BASO 0.07 10*3/uL 0-0.2 IG(META,MYELO,WI O) 0.3 ABS IMMATURE GRAN 0.03 10*3/uL 0-0.1 December 05, 2023 02:20 PM [facility] EXTRA RED TUBE Specimen Type: SERUM No comment entered. Ordering Provider: NELSON RONQUILLO Report Released Date/Time: December 05, 2023 02:39 PM Reporting Lab: [facility] [phone] Performing Lab: [facility] [phone] EXTRA RED TUBE RECEIVED December 05, 2023 02:20 PM [facility] LACTIC ACID Specimen Type: PLASMA No comment entered. Ordering Provider: NELSON RONQUILLO Report Released Date/Time: December 05, 2023 02:27 PM Reporting Lab: [facility] [phone] Performing Lab: [facility] [phone] LACTIC ACID 1.7 mmol/L 0.5-2.2 December 05, 2023 02:20 PM [facility] PROTHROMBIN TIME/INR Specimen Type: PLASMA No comment entered. Ordering Provider: NELSON RONQUILLO Report Released Date/Time: December 05, 2023 02:27 PM Reporting Lab: [facility] [phone] Performing Lab: [facility] [phone] .INR 1.2 H 0.8-1.1 .PT 13.5 s H 9.4-12.5 December 05, 2023 02:20 PM [facility] CODE BLUE(LYTE,CR,UN,GL,MG,CA,PHOS,TROP) Specimen Type: PLASMA No comment entered. Ordering Provider: NELSON RONQUILLO Report Released Date/Time: December 05, 2023 02:27 PM Reporting Lab: [facility] [phone] Performing Lab: [facility] [phone] CREATININE 1.1 mg/dL H 0.5-1.0 UREA NITROGEN 10 mg/dL 7-20 GLUCOSE 101 mg/dL H 70-100 SODIUM 138 mmol/L 136-145 POTASSIUM 3.8 mmol/L 3.5-5.1 CHLORIDE 107 mmol/L 98-107 CO2 22 mmol/L 22-29 CALCIUM 9.3 mg/dL 8.4-10.2 PHOSPHORUS 3.5 mg/dL 2.3-4.7 MAGNESIUM 1.9 mg/dL 1.6-2.6 ANION GAP 9 mmol/L 5-15 .CREAT EGFR(CKD-EPI) 64 >60 TROPONIN I, HS <3 <14 December 05, 2023 02:20 PM [facility] EXTRA GOLD GEL TUBE Specimen Type: SERUM No comment entered. Ordering Provider: NELSON RONQUILLO Report Released Date/Time: December 05, 2023 02:39 PM Reporting Lab: [facility] [phone] Performing Lab: [facility] [phone] EXTRA GOLD GEL TUBE RECEIVED December 05, 2023 02:20 PM [facility] CBC Specimen Type: BLOOD No comment entered. Ordering Provider: NELSON RONQUILLO Report Released Date/Time: December 05, 2023 02:27 PM Reporting Lab: [facility] [phone] Performing Lab: [facility] [phone] WBC 11.50 10*3/uL H 4.0-11.0 RBC 4.83 10*6/uL 4.0-5.4 HGB 13.6 g/dL 11.5-16 HCT 39.8 34.5-48 MCV 82.4 fL 80-100 MCH 28.2 pg 27-33 MCHC 34.2 g/dL 32.0-37.5 PLT 443 10*3/uL H 150-400 MPV 9.1 fL 7.4-10.4 RDW 12.5 11.5-14.5 December 05, 2023 02:18 PM [facility] POC ABG/ELECTROLYTES Specimen Type: VENOUS BLOOD Comment: FIO2 = 40% Patient Temp: 36.6 C Sample Type = VENOUS Ordering Provider: ULYSSES ELDER Report Released Date/Time: December 06, 2023 08:24 PM Reporting Lab: [facility] [phone] Performing Lab: [facility] [phone] POC PH 7.382 7.31-7.41 POC PCO2 35.0 [...] PM 98.3 59 117/81 18 97 0 [facility] Dec 22, 2023 10:32 AM 2 [facility] Dec 22, 2023 10:18 AM 201.1 31 [facility] Dec 22, 2023 09:17 AM 98.1 81 116/81 96 2 [facility] Advance Directives: All historical and current Section Date Range: From patient's date of to the date document was created. This section includes ALL of a patient's completed or amended [place] Advance and Rescinded Directives. The entries below indicate that a directive exists for the patient, but an actual copy is not included with this document. The data comes from all [place] facilities. Date Advance Directives Provider Source Jan 05, 2024 ADVANCE DIRECTIVE DISCUSSION SHAHID HURTADO [facility] Encounter Notes: All associated encounter notes This section contains the clinical notes associated to the Encounter. Date/Time Encounter Note(s) Provider Source Dec 22, 2023 11:10 AM PHARMACY MEDICATIO N MGT NOTE: LOCAL TITLE: DRUG RECONCILIATION ON ADMIT STANDARD TITLE: PHARMACY MEDICATION MGT NOTE DATE OF NOTE: DEC 22, 2023@11:10 ENTRY DATE: DEC 22, 2023@11:10:58 AUTHOR: DELROY STEEN COSIGNER: URGENCY: STATUS: COMPLETED PHARMACY MEDICATION HISTORY NOTE = Medication & allergy history was compiled by pharmacy to assist providers ordering inpatient medications. Essential med list includes active local & remote VA rxs, non-VA meds, recently rxs within last 180 days, recently discontinued rxs within last 90 days, clinic med orders, pending med orders, & inpatient med orders. Current active & pending inpatient med orders will be reviewed to complete medication reconciliation. With the exception of allergies, if a category is not listed below, there were no relevant meds for the patient. See [facility] Emergency Department documentation for medications given during emergency department visit. Seasonal Influenza Immunization: No--severe allergy to PEG and as such, also influenza/Covid vaccines per patient INTERVIEW Patient and/or caregiver has been INTERVIEWED by pharmacy. Per patient, medications were taken prior to admission as prescribed unless otherwise noted below. Tobacco Use: Vape, amount unclear. NRT gum ordered on admission. Pharmacist to f/u on discharge for ongoing NRT/smoking cessation supports pending disposition. No remote/pending/clinic/recently discontinued Rx. Allergies: FACILITY ALLERGY/ADR -------- CLNCL/HLTH [facility] REPT EFF [id number] [facility] FENTANYL [facility] INFLUENZA [facility] MIRALAX [facility] PFIZER COVID-19 VACCINE (EUA) === Source of Info: [facility] === Drug Last Refills Qty Filled Remaining ---- --- ------ --------- ALBUTEROL 90MCG (CFC-F) 200D ORAL INHL 2 04/02/2023 (3) 1 PUFF QID PRN FOR SHORTNESS OF BREATH ATORVASTATIN CALCIUM 40MG TAB 90 06/06/2023 (3) ONE QHS FOR CHOLESTEROL CETIRIZINE HCL 5MG TAB 90 04/02/2023 (1) ONE QAM PRN FOR ALLERGIC REACTION only for severe allergic reaction, reports takes 20 mg when needed CLONIDINE HCL 0.1MG TAB 60 05/09/2023 (1) ONE BID PRN FOR PAIN not taking DICYCLOMINE HCL 10MG CAP 90 05/09/2023 (1) ONE TID PRN FOR PAIN not taking DULOXETINE HCL 60MG EC CAP 90 07/16/2023 (2) ONE QDAY FOR MOOD EPINEPHRINE (EQV-EPI-PEN) 0.3MG/0.3ML 2 04/01/2023 (3) INJECT 1 PEN DIRECTED PRN FOR ALLERGIC REACTION only for severe allergic reaction FEXOFENADINE HCL 180MG TAB 180 05/09/2023 (1) ONE BID FOR ALLERGIES FISH OIL 1000MG (500MG DHA/EPA) CAP 100 06/06/2023 (3) ONE QAM FOR HIGH TRIGLYCERIDES IBUPROFEN 800MG TAB 180 (1) ONE TID PRN FOR PAIN sporadic use ONDANSETRON HCL 4MG TAB 20 11/20/2023 (3) ONE Q6H PRN FOR NAUSEA AND VOMITING prefers ODT formulation, states that normal tabs give a bad headache PREDNISONE 50MG TAB 30 04/02/2023 (3) TWO PRN ONCE FOR ANAPHYLAXIS- TAKE IMMEDIATELY 100MG PREDNISONE AND 2 TABS CETIRIZINE (5MG EACH) FOR SEVERE ALLERGIC REACTION only for severe allergic reaction TACROLIMUS 0.1% TOP OINT 30 (3) APPLY THIN LAYER TOPICALLY BID PRN FOR SEVERE ITCHING/DERMATITIS Not using The following prescriptions have HYDROMORPHONE 2MG TAB 30 06/11/2023 (0) ONE EVERY 4 HOURS PRN FOR PAIN FOR MANAGEMENT OF ACUTE FLARES OF SEVERE PAIN. USE FOR PAIN NOT WELL MANAGED WITH OTHER CONSERVATIVE MEASURES. Indication: FOR PAIN : 07/11/2023 only uses for pancreatitis flair, last used in early November The following are Non-VA medications LORAZEPAM 0.5MG TAB 0.5MG Q8H NEEDED Statement/Explanation/Comment: Non-VA medication that patient takes on their own. Non-VA medication not recommended by VA provider. Medication prescribed by Non-VA provider. Need [facility] to [facility] only uses for pancreatitis flair, last used in early November HYDROMORPHONE 2MG TAB 4MG Q6H NEEDED Statement/Explanation/Comment: Non-VA medication that patient takes on their own. Non-VA medication not recommended by VA provider. Medication prescribed by Non-VA provider. Need [place] pain clinic follow up only uses for pancreatitis flair, last used in early November HYOSCYAMINE TAB,SUBLINGUAL Statement/Explanation/Comment: With meals not taking Denies other Rx, OTC, Herbal, Supplement, Non-VA meds Consider the following inpatient medications when reviewing list above to complete medication reconciliation: Active Inpatient Medications (including Supplies): Active Inpatient [...] PO Q6H PRN ACTIVE 9) QUETIAPINE TAB 50MG PO QHS ACTIVE 10) TRAZODONE TAB 50MG PO QHS PRN Instructions too long. ACTIVE See order details for full text. /lilia/ Delroy Steen PharmAdriana, BCPP Clinical Pharmacist Practitioner--Inpt Psychiatry Signed: 12/22/2023 11:18 Receipt Acknowledged By: 12/23/2023 08:17 /lilia/ NELSON MENA Staff Psychiatrist DELROY STEEN [facility]
--- OUTSIDE RECORDS SUMMARY | 2024-05-04 07:53 | XMS_ITS | Encounter Summary ---
Author Name [facility] [place] [facility] [facility] [place] Address [address] [place] [address] Care Team Providers Care Sheet Rocker Name Role Phone EMIR GRACIA Primary Care Provider Unavailabl e Selected Encounter This section includes the information on record at [place] for the Encounter. 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 Date/Time Primary/Secondary Diagnosis Diagnosis Name Provider Source Jan 15, 2024 11:09 AM PRIMARY Major depressive disorder, recurrent, unspecified VANESSA ALMEIDA [facility] Jan 15, 2024 11:09 AM SECONDARY Post-traumatic stress disorder, unspecified VANESAS ALMEIDA [facility] Plan of Treatment: [...] 20 appointments. The data comes from all [facility]. Appointment Date/Time Appointment Type Appointme nt Facility Name Jan 16, 2024 08:45 AM [facility] Jan 16, 2024 10:00 AM [facility] [place] [facility] Jan 16, 2024 11:00 AM [place] [facility] Jan 19, 2024 08:45 AM [place] [facility] Jan 19, 2024 10:00 AM [place] [place] [facility] Jan 19, 2024 11:00 AM [facility] Jan 19, 2024 12:00 PM [facility] Jan 20, 2024 08:45 AM [facility] Jan 20, 2024 10:00 AM [facility] Jan 20, 2024 11:00 AM [facility] Jan 21, 2024 08:45 AM [facility] Jan 21, 2024 10:00 AM [facility] Jan 21, 2024 11:00 AM [facility] Jan 23, 2024 08:45 AM [facility] Jan 23, 2024 10[facility]00 AM [facility] Jan 23, 2024 11:00 AM AM[facility]ULATORY - PS[facility]ATRY [facility] Jan 23, 2024 12:00 PM [facility] Jan 24, 2024 08:15 AM [facility] Jan 29, 2024 11:00 AM AMBULATORY - PSYCHIATRY [facility] Jan 29, 2024 03:00 PM [facility] Active, Pending, and Scheduled Orders This section includes a listing of several types of active, pending, and scheduled orders, including clinic medications orders, diagnostic test orders, procedure orders and consult orders; where the start date of the order is 45 days before the date of the Encounter or 45 days after the date of theEncounter. The data comes from all [facility]. Test Date/Time Test Type Test Details Facility Name December 05, 2023 02:27 PM Laboratory - Chemi stry Order BLOOD GAS PANEL FOR ICU ARTERIAL BLOOD STAT WC [facility] December 12, 2023 03:21 PM Laboratory - Chemi stry Order CALPROTECTIN,STOOL STOOL FECES SP ONCE [facility] Dec 21, 2023 04:56 PM Laboratory - Chemi stry Order SALICYLATE SERUM STAT SP [facility] Lab Results: +/- 30 days of the encounter This section includes the Chemistry and Hematology Lab Results on record with [place] for the patient. Radiology Reports and Pathology Reports are provided separately, in subsequent sections. Lab Results This section contains the Chemistry/Hematology Results that were resulted 30 days before or 30 daysafter the date of the Encounter. Date/Time Source Result Type Result - Unit Interpretation Reference Range Comment Dec 22, 2023 06:44 AM [facility] HEMOGLOBIN A1C Specimen Type: BLOOD Comment: Values [...] PM Reporting Lab: [facility] [place] [address] Performing Lab: [facility] [place] [address] HEMOGLOBIN A1C 4.9 4.0-6.0 Dec 22, 2023 06:44 AM [facility] B 12 Specimen Type: SERUM No comment entered. Ordering Provider: Celeste DUKES Report Released Date/Time: Dec 21, 2023 08:58 PM Reporting Lab: [facility] [place] [phone] Performing Lab: [facility] [place] [id number] B 12 381 pg/mL 213-816 Dec 22, 2023 06:44 AM [facility] VIT D 25-OH,TOTAL Specimen Type: SERUM No comment entered. Ordering Provider: Celeste DUKES Report Released Date/Time: Dec 21, 2023 08:58 PM Reporting Lab: [facility] [place] [address] Performing Lab: [facility] [place] [phone] VIT D 25-OH,TOTAL 29 ng/mL 12-50 Dec 22, 2023 06:44 AM [facility] TSH W/REFLEX TO FREE T4 Specimen Type: PLASMA No comment entered. Ordering Provider: Celeste DUKES Report Released Date/Time: Dec 21, 2023 08:58 PM Reporting Lab: [facility] [place] [address] Performing Lab: [facility] [place] [address] TSH 0.36 u[IU]/mL 0.35-4.94 Dec 22, 2023 06:44 AM [facility] FOLATE Specimen Type: PLASMA No comment entered. Ordering Provider: Celeste DUKES Report Released Date/Time: Dec 21, 2023 08:58 PM Reporting Lab: [facility] [place] [address] Performing Lab: [place] [id number] FOLATE 7.1 ng/mL >7.0 Dec 22, 2023 06:44 AM [facility] LIPID PANEL,FASTING Specimen Type: PLASMA No comment entered. Ordering Provider: Celeste DUKES Report Released Date/Time: Dec 21, 2023 08:58 PM Reporting Lab: [facility] [place] [phone] Performing Lab: [facility] [place] [address] CHOLESTEROL 170 mg/dL <199 TRIGLYCERIDE 151 mg/dL H <149 .HDL 34 mg/dL L >50 LDL CALCULATION 106 mg/dL H <99 VLDL CALCULATION 30 mg/dL H <29 NON HDL CHOLESTEROL 136 mg/dL H <129 Dec 21, 2023 09:33 PM [facility] DRUG SCREEN PANEL,URINE Specimen Type: URINE Comment: Presumptive Positive by screen, results not confirmed. Ordering Provider: MONIQUE VÁSQUEZ Report Released Date/Time: Dec 21, 2023 04:56 PM Reporting Lab: [facility] [place] [phone] Performing Lab: [facility] [place] [address] BARBITURATES Negative Negative AMPHETAMINES Negative Negative COCAINE Negative Negative BENZODIAZEPINES Negative Negative CANNABINOIDS POSITIVE H Negative METHADONE Negative Negative OPIATES Negative Negative PHENCYCLIDINE Negative Negative ETHANOL,URINE Negative Negative DRUG SCREEN CREAT 325.9 mg/dL >20.0 OXYCODONE Negative Negative BUPRENORPHINE Negative Negative TRAMADOL Negative Negative FENTANYL Negative Negative Dec 21, 2023 05:30 PM [facility] ETHANOL Specimen Type: PLASMA No comment entered. Ordering Provider: MONIQUE VÁSQUEZ Report Released Date/Time: Dec 21, 2023 04:56 PM Reporting Lab: [facility] [place] [phone] Performing Lab: [facility] [place] [address] ETHANOL Negative mg/dL NEGATIVE Dec 21, 2023 05:30 PM [facility] CBC & DIFF Specimen Type: BLOOD Comment: Automated Differential Performed Ordering Provider: MONIQUE VÁSQUEZ Report Released Date/Time: Dec 21, 2023 04:56 PM Reporting Lab: [facility] [place] [address] Performing Lab: [facility] [place] [phone] WBC 9.50 10*3/uL 4.0-11.0 RBC 4.69 10*6/uL [...] 10*3/uL 0-0.1 Dec 21, 2023 05:30 PM [facility] COMPREHENSIVE METABOLIC PANEL+MG Specimen Type: PLASMA No comment entered. Ordering Provider: MONIQUE VÁSQUEZ Report Released Date/Time: Dec 21, 2023 04:56 PM Reporting Lab: [facility] [place] [address] Performing Lab: [facility] [place] [phone] CREATININE 1.0 mg/dL 0.5-1.0 UREA NITROGEN 9 [...] and tobacco- related health factors from the [place] facility where the Encounter took place. Current Smoking Status This section includes the most current smoking, or tobacco-related health factor, from the [place] facility where the Encounter took place. Date/Time Current Smoking Status Comment Latasha ity Jan 05, 2024 12:00 PM [place]-TOBACCO FORMER USER [facility] Tobacco Use History This section includes a history of the smoking, or tobacco-related health factors, that were collected on or before the date of the Encounter. The data comes from the [place] facility where the Encounter took place. Date/Time Smoking Status/Tobacco Use Comment F acility Jan 05, 2024 12:00 PM [place] 5 TO < 15 YRS [facility] Advance Directives: All historical and current Section [...] 05, 2024 ADVANCE DIRECTIVE DISCUSSION SHAHID HURTADO [facility] Encounter Notes: All associated encounter notes This section contains the clinical notes associated to the Encounter. Date/Time Encounter Note(s) Provider Source Jan 15, 2024 10:00 AM [facility]ENTAL HEALTH GROU P COUNSELING NOTE: LOCAL TITLE: MH GROUP NOTE STANDARD TITLE: MENTAL HEALTH GROUP COUNSELING NOTE DATE OF NOTE: JAN 15, 2024@10:00 ENTRY DATE: JAN 15, 2024@11:03 AUTHOR: VANESSA ALMEIDA COSIGNER: LAINA STOREY URGENCY: STATUS: COMPLETED MH GROUP NOTE Has ADDENDA [facility] Group [employer] OPERATOR: Vanessa Almeida PsyD DATE OF GROUP: 01/15/2024 TIME OF GROUP: 1000 LENGTH OF GROUP: 50 mins NUMBER IN ATTENDANCE: 4 MODALITY: Group Psychotherapy GROUP TOPIC: Healthy Boundaries 1/2 MEDIUM: in-person group therapy OBJECTIVES: 1. [place] will learn what a boundary is and how it functions. 2. will recognize the importance of clearly defined and maintained boundaries in maintaining good self-care in relationships. 3. Veterans will recognize signs of both unhealthy and healthy boundaries. [place] attended 50 minutes. Patient Education: Readiness to learn: Attended session, Appeared to listen attentively, Participated in group discussion Patient Understanding: Patient appeared to understand information provided Informed consent for treatment and limits of confidentiality, as well as limits and benefits of treatment, were reviewed with patient in first session and they indicated understanding and agreement in the first session. For additional information about goals and plan for treatment while in [facility], please refer to veterans individualized treatment plan upon entry to [facility]. [place] is continuing with [facility] programming at this [...] notes /lilia/ VANESSA ALMEIDA Graduate Psychologist Signed: 01/15/2024 11:14 /es/ LAINA STOREY, PHD, ABPP CLINICAL PSYCHOLOGIST Cosigned: 01/15/2024 11:52 01/15/2024 ADDENDUM STATUS: COMPLETED I have reviewed, edited, and concur with the graduate psychologist's note. I was not present for today's session, but I was available in the area for immediate consultation. /lilia/ LAINA STOREY, PHD, ABPP CLINICAL PSYCHOLOGIST Signed: 01/15/2024 11:52 VANESSA ALMEIDA [facility]
--- OUTSIDE RECORDS SUMMARY | 2024-05-04 07:53 | XMS_ITS ---
Author Name [facility] Organization [facility] Address [address] [place] [address] Care Team Providers Care [employer] Officer Name Role Phone BASIL EMIR Primary Care Provider Unavailabl e Selected Encounter This section includes the information on record at NH for the Encounter. Date/Time Encounter Type Encounter Description Reason Provider Source Jan 16, 2024 08:32 AM QHIP OL DIG ASSMT&MGMT 21+ CLINICAL PHARMACY ICD-10-CM F43.12 Post-traumatic stress disorder, chronic ALLYN SAWYER Lorie Encounter Template Text not used by [place] Assessments - Encounter Diagnoses This section includes the primary and secondary diagnoses documented for the Encounter. Date/Time Primary/Secondary Diagnosis Diagnosis Name Provider Source Jan 16, 2024 12:53 PM PRIMARY Post-traumatic stress disorder, chronic ALLYN SAWYER [facility] Jan 16, 2024 12:53 PM SECONDARY Generalized anxiety disorder ALLYN SAWYER [facility] Jan 16, 2024 12:53 PM SECONDARY Major depressive disorder, single episode, unspecified ALLYN SAWYER [facility] Plan of Treatment: Future Appointments [...] 20 appointments. The data comes from all [facility] facilities. Appointment Date/Time Appointment Type Appointme nt Facility Name Jan 19, 2024 08:45 AM AMBULATORY [place] [facility] [facility] Jan 19, 2024 10:00 AM AMBUL[facility] [place] [facility] Jan 19, 2024 11:00 AM AMBULATORY [facility] [place] [facility] Jan 19, 2024 12:00 PM AMBULATORY - [facility] [place] [facility] Jan 20, 2024 08:45 AM AMBULATORY [facility] [place] [facility] Jan 20, 2024 10:00 AM AM[facility]ORY [facility] Jan 20, 2024 11:00 AM AM[facility] [place] [facility] Jan 21, 2024 08:45 AM [facility] Jan 21, 2024 10:00 AM [facility] Jan 21, 2024 11:00 AM [facility] Jan 23, 2024 08:45 AM [facility] [place] [facility] Jan 23, 2024 10:00 AM [facility] Jan 23, 2024 11:00 AM [facility] Jan 23, 2024 12:00 PM [facility] [place] [facility] Jan 24, 2024 08:15 AM AMBULATORY - SURGERY [facility] Jan 29, 2024 11:00 AM AMBULATORY - PS[facility]IATRY [facility] Jan 29, 2024 03:00 PM AMBUL[facility]ORY [facility] [place] [facility] Feb 04, 2024 11:00 AM AM[facility]ORY [facility] Feb 11, 2024 11:00 AM AMBULATORY - [facility] Feb 18, 2024 11:00 AM AMBULATORY - PS[facility]CHIATRY [facility] Active, Pending, and Scheduled Orders This [...] PANEL FOR ICU ARTERIAL BLOOD STAT WC [facility] December 12, 2023 03:21 PM Laboratory - Chemi stry Order CALPROTECTIN,STOOL STOOL FECES SP ONCE [facility] Dec 21, 2023 04:56 PM Laboratory - Chemi stry Order SALICYLATE SERUM STAT SP [facility] Lab Results: +/- 30 days of the encounter This section includes the Chemistry and Hematology Lab Results on record with NH for the patient. Radiology Reports and Pathology Reports are provided separately, in subsequent sections. Lab Results This section contains the Chemistry/Hematology Results that were resulted 30 days before or 30 daysafter the date of the Encounter. Date/Time Source Result Type Result - Unit Interpretation Reference Range Comment Dec 22, 2023 06:44 AM [facility] HEMOGLOBIN A1C Specimen Type: BLOOD [...] 21, 2023 08:58 PM Reporting Lab: [facility] [id number] Performing Lab: [facility] [id number] HEMOGLOBIN A1C 4.9 4.0-6.0 Dec 22, 2023 06:44 AM [facility] B 12 Specimen Type: SERUM No comment entered. Ordering Provider: Celeste DUKES Report Released Date/Time: Dec 21, 2023 08:58 PM Reporting Lab: [facility] [id number] Performing Lab: [facility] [address] B 12 381 pg/mL [phone] Dec 22, 2023 06:44 AM [facility] VIT D 25-OH,TOTAL Specimen Type: SERUM No comment entered. Ordering Provider: Celeste DUKES Report Released Date/Time: Dec 21, 2023 08:58 PM Reporting Lab: [facility] [id number] Performing Lab: [facility] [phone] VIT D 25-OH,TOTAL 29 ng/mL 12-50 Dec 22, 2023 06:44 AM [facility] FOLATE Specimen Type: PLASMA No comment entered. Ordering Provider: Celeste DUKES Report Released Date/Time: Dec 21, 2023 08:58 PM Reporting Lab: [facility] [id number] Performing Lab: [facility] [phone] FOLATE 7.1 ng/mL >7.0 Dec 22, 2023 06:44 AM [facility] TSH W/REFLEX TO FREE T4 Specimen Type: PLASMA No comment entered. Ordering Provider: Celeste DUKES Report Released Date/Time: Dec 21, 2023 08:58 PM Reporting Lab: [facility] [id number] Performing Lab: [facility] [address] TSH 0.36 u[IU]/mL 0.35-4.94 Dec 22, 2023 06:44 AM [facility] LIPID PANEL,FASTING Specimen Type: PLASMA No comment entered. Ordering Provider: Celeste DUKES Report Released Date/Time: Dec 21, 2023 08:58 PM Reporting Lab: [facility] [id number] Performing Lab: [facility] [phone] CHOLESTEROL 170 mg/dL <199 TRIGLYCERIDE 151 mg/dL H <149 .HDL 34 mg/dL L >50 LDL CALCULATION 106 mg/dL H <99 VLDL CALCULATION 30 mg/dL H <29 NON HDL CHOLESTEROL 136 mg/dL H <129 Dec 21, 2023 09:33 PM [facility] DRUG SCREEN PANEL,URINE Specimen Type: URINE Comment: Presumptive Positive by screen, results not confirmed. Ordering Provider: MONIQUE VÁSQUEZ Report Released Date/Time: Dec 21, 2023 04:56 PM Reporting Lab: [facility] [phone] Performing Lab: [facility] [phone] BARBITURATES Negative Negative AMPHETAMINES Negative Negative COCAINE Negative Negative BENZODIAZEPINES Negative Negative CANNABINOIDS POSITIVE H Negative METHADONE Negative Negative OPIATES Negative Negative PHENCYCLIDINE Negative Negative ETHANOL,URINE Negative Negative DRUG SCREEN CREAT 325.9 mg/dL >20.0 OXYCODONE Negative Negative BUPRENORPHINE Negative Negative TRAMADOL Negative Negative FENTANYL Negative Negative Dec 21, 2023 05:30 PM [facility] ETHANOL Specimen Type: PLASMA No comment entered. Ordering Provider: MONIQUE VÁSQUEZ Report Released Date/Time: Dec 21, 2023 04:56 PM Reporting Lab: [facility] [phone] Performing Lab: [facility] [address] ETHANOL Negative mg/dL NEGATIVE Dec 21, 2023 05:30 PM [facility] COMPREHENSIVE METABOLIC PANEL+MG Specimen Type: PLASMA No comment entered. Ordering Provider: MONIQUE VÁSQUEZ Report Released Date/Time: Dec 21, 2023 04:56 PM Reporting Lab: [facility] [phone] Performing Lab: [facility] [phone] CREATININE 1.0 mg/dL 0.5-1.0 UREA NITROGEN 9 [...] 71 >60 Dec 21, 2023 05:30 PM [facility] CBC & DIFF Specimen Type: BLOOD Comment: Automated Differential Performed Ordering Provider: MONIQUE VÁSQUEZ Report Released Date/Time: Dec 21, 2023 04:56 PM Reporting Lab: [facility] [phone] Performing Lab: [facility] [address] WBC 9.50 10*3/uL 4.0-11.0 RBC 4.69 10*6/uL [...] 10*3/uL 0-0.5 ABS BASO 0.07 10*3/uL 0-0.2 IG(META,MYELO,IL O) 0.3 ABS IMMATURE GRAN 0.03 10*3/uL 0-0.1 Social History: Smoking Status (Most current) and Tobacco Use (All prior to encounter date) This section includes the most current, and the historical, smoking and tobacco- related health factors from the [place] facility where the Encounter took place. Current Smoking Status This section includes the most current smoking, or tobacco-related health factor, from the [place] facility where the Encounter took place. Date/Time Current Smoking Status Comment Latasha pitts Jan 05, 2024 12:00 PM NH-TOBACCO QUIT 5 TO < 15 YRS [facility] Tobacco Use History This section includes a history of the smoking, or tobacco-related health factors, that were collected on or before the date of the Encounter. The data comes from the [place] facility where the Encounter took place. Date/Time Smoking Status/Tobacco Use Comment F vish Jan 05, 2024 12:00 PM NH-TOBACCO QUIT 5 TO < 15 YRS [facility] Advance Directives: All historical and current Section Date Range: From patient's date of to the date document was created. This section includes ALL of a patient's completed or amended [place] Advance and Rescinded Directives. The entries below indicate that a directive exists for the patient, but an actual copy is not included with this document. The data comes from all [place] facilities. Date Advance Directives Provider Source Jan 05, 2024 ADVANCE DIRECTIVE DISCUSSION SHAHID HURTADO [facility] Encounter Notes: All associated encounter notes This section contains the clinical notes associated to the Encounter. Date/Time Encounter Note(s) Provider Source Jan 16, 2024 08:32 AM PHARMACY NOTE: LOCAL TITLE: PHARMACOTHERAPY-CLINICAL PHARMACY NOTE STANDARD TITLE: PHARMACY NOTE DATE OF NOTE: JAN 16, 2024@08:32 ENTRY DATE: JAN 16, 2024@08:32:39 AUTHOR: NOLVIA SAWYER COSIGNER: URGENCY: STATUS: COMPLETED MENTAL HEALTH PHARMACY SERVICE CLINICAL PHARMACIST MEDICATION REVIEW CONSULT Date of service: JAN 16, 2024 S: QUINTIN ZAVALA is a 43 y/o FEMALE who was referred to Dr. Lowry by Dr. Aparicio for MH medication management bridging appointment post-PPH discharge. This senior technical writer conducted chart review to gather information regarding MH history and assess appropriateness of referral to [facility] Pharmacist as coverage for Dr. Lowry. The findings and recommendations are detailed below. [place] contacted crisis line 12/21/23 with active suicidal thoughts - everything is falling apart- school, life, marriage, family, financials. had plan to kill herself by overdosing on medication. 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 also reported worsening depressive (apathy, amotivation), anxiety and PTSD (constant flashbacks, nightmares) sxs. Also reported gambling addiction which has caused her to be $40,000 in debt. was voluntarily admitted to inpatient from 12/21/2023-12/29/2023 where duloxetine was augmented with quetiapine and she was discharged from inpatient and elected to being [facility] program 12/29/2023 with anticipated completion date of 01/23/2024. [place] last seen by [facility] psychiatrist 01/14/2024 where she was continued on current regimen w/out changes. At that visit, reported mood as okay and having episodes of hallucinations or sleep walking or something but I couldn't tell what was real. She went on to describe these hallucinations- I was mostly hearing things but I think I was seeing some things too. Like things from the call at work and I was walking upstairs my house, but things didn't seem real. She also noted hx of hallucinations in the past when on Compazine. She also reported disturbed sleep where she is waking up at 3AM due to nightmares and struggling to fall back asleep. She shared using prn quetiapine 3-4 times a week in the afternoon and evening. She noted the higher quetiapine AM dose was necessary to prevent panic attacks later in the day. She reported anxiety around whether or not to go back to work and plans to discuss with vocational rehab. Regarding SI, she shared a few feeling, intrusive thoughts but denied any intent/preparatory behavior. with plan to discharge from [facility] 01/23/2024 and establish with specialty medication management with Dr. Alonso 03/03/24. Mental Health Diagnoses: - Major Depressive Disorder, recurrent, severe (per 01/14/24 PSYCHIATRIC EVAL AND MANAGEMENT note) - Post Traumatic Stress Disorder (per 01/14/24 PSYCHIATRIC EVAL AND MANAGEMENT note) - generalized anxiety disorder (per problem list) Pertinent Medical Diagnoses: - pain related to pancreatitis Active Medications: - Compazine- hallucinations per report - duloxetine 60mg PO daily for mood - quetiapine 200mg PO QAM and 300mg PO QHS for depression - quetiapine 25mg PO TID prn anxiety - trazodone 50mg PO QHS prn sleep Other Pertinent Medications: - nonVA lorazepam 0.5mg PO Q8h prn (prescribed for pain related to pancreatitis) - nonVA hydromorphone 4mg PO Q6h prn (prescribed for pain related to pancreatitis) - naloxone - nicotine gum 2mg prn - ondansetron 4mg PO Q6h prn N/V - clonidine 0.1mg PO BID for pain Previous Medication Trials: - citalopram 10mg (03/11/2008, 09/22/2009-11/28/2009) - clonidine 0.1mg PO BID (05/09/2023-CURRENT) --FOR PAIN - duloxetine up to 60mg (05/31/2021-CURRENT) - escitalopram 10mg (06/12/2020-03/28/2021) - hydroxyzine 25mg (05/2020 x1, 05/2021 x1, 03/27/2023 x1) - lorazepam 0.5mg (03/20/2014 x1, 09/09/2018, 06/12/2020x1, 05/31/2021x1, nonVA 01/2022-CURRENT) - naloxone issued 01/15/2024 - nicotine gum 2mg (12/29/2023-CURRENT) - quetiapine up to 500mg/day (12/29/2023-CURRENT) - trazodone 50mg PO QHS for sleep (12/29/2023-CURRENT) History: - Psychiatric Hospitalization: * [facility] 12/29/2023 with anticipated discharge 01/23/2024 * psychiatric hospitalization 12/21/23-12/29/23 * psychiatric hospitalization after suicide attempt 1997 - Previous Self-injurious behavior or suicide attempts: * per H&P note, reported one suicide attempt 1997 - Outpatient Engagement: * individual psychotherapy on and off for years per 12/22/23 H&P note * couples therapy in the community - Substance Use History: * no hx problematic substance use noted per chart review OBJECTIVE Chart Review (if applicable, details regarding referral): Active problems - Computerized Problem List is [...] 2 children, 2 step children, - 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 Generalized anxiety disorder 5. Major depressive disorder 6. History of post-traumatic stress disorder - team at [place] 7. Hyperlipidemia - On statin 8. Dysfunction of sphincter of Oddi (SNOMED CT [id number]) - cholecystectomy and multiple ERCPs, followed [facility] in the past, - 2015 9. Posttraumatic stress disorder 10. No significant change since previous mammogram - recent mammo on 04/01/23-ACR BI-RADS Category 1 - Negative. Active Medications: Active Outpatient Medications (including Supplies): Active [...] TIMES A DAY NEEDED FOR PAIN 11) NALOXONE HCL 4MG/SPRAY SOLN NASAL SPRAY SPRAY 1 DOSE ACTIVE IN ONE NOSTRIL DIRECTED FOR UNRESPONSIVENESS THEN CALL 911 - IF NO CHANGE IN 2-3 MINUTES, GIVE SECOND DOSE IN OPPOSITE NOSTRIL 12) NICOTINE 2MG GUM CHEW 1 PIECE IN MOUTH EVERY HOUR ACTIVE NEEDED TO QUIT TOBACCO 13) ONDANSETRON HCL 4MG TAB TAKE ONE TABLET BY MOUTH ACTIVE EVERY 6 HOURS NEEDED FOR NAUSEA AND VOMITING 14) PREDNISONE 50MG TAB TAKE TWO TABLETS BY MOUTH ACTIVE NEEDED ONCE FOR ANAPHYLAXIS- TAKE IMMEDIATELY 100MG PREDNISONE AND 2 TABS CETIRIZINE (5MG EACH) FOR SEVERE ALLERGIC REACTION 15) QUETIAPINE FUMARATE 200MG TAB TAKE ONE TABLET BY ACTIVE MOUTH EVERY MORNING FOR DEPRESSION 16) QUETIAPINE FUMARATE 25MG TAB TAKE ONE TABLET BY MOUTH ACTIVE THREE TIMES A DAY NEEDED FOR ANXIETY 17) QUETIAPINE FUMARATE 300MG TAB TAKE ONE TABLET BY ACTIVE MOUTH AT BEDTIME FOR DEPRESSION 18) TACROLIMUS 0.1% TOP OINT APPLY THIN LAYER TOPICALLY HOLD TWICE A DAY NEEDED FOR SEVERE ITCHING/DERMATITIS 19) TRAZODONE HCL 50MG TAB TAKE ONE TABLET BY MOUTH AT ACTIVE BEDTIME NEEDED FOR SLEEP Active Non-VA Medications Status 1) Non-VA HYDROMORPHONE 2MG TAB 4MG MOUTH EVERY 6 HOURS ACTIVE NEEDED 2) Non-VA LORAZEPAM 0.5MG TAB 0.5MG MOUTH EVERY 8 HOURS ACTIVE NEEDED 21 Total Medications MEDICATION LAB MONITORING: Lipid Panel: - Cholesterol: CHOLESTEROL 170 (12/22/23) - LDL-C: LDL CALCULATION 106 H (12/22/23) Collection DT Spec HGBA1C 12/22/2023 05:30 BLOOD 4.9 03/27/2023 10:13 BLOOD 4.8 Liver Panel: - Alk Phos ALK PHOSPHATASE 54 (12/21/23) - ALT/SGPT: SGPT 20 (12/21/23) - AST/SGOT: SGOT 16 (12/21/23) - T Bili BILIRUBIN, TOTAL 0.8 (12/21/23) Basic Metabolic Panel: CREATININE 1.0 (12/21/23) SODIUM 140 (12/21/23) TSH 0.36 (12/22/23) AIMS: none on file EKG: - QTc: none on file Vitals: ------- pulse 77 (01/05/2024 12:11) blood pressure 125/80mmHg (01/05/2024) respirations 16 (01/05/2024 12:11) pain 3 (12/29/2023 06:18) weight 206.0 lb [93.44 kg] (12/25/2023 06:18) height 67.323 in [171.0 cm] (03/27/2023 09:03) ASSESSMENT: LUCASQUINTIN MAJOR is a 43 y/o FEMALE who was referred to Dr. Lowry for medication management bridging by Dr. Aparicio. has documented previous diagnoses including MDD, depression, and anxiety. This senior technical writer conducted chart review to ensure appropriateness of referral for PharmD as coverage for Dr. Lowry. Nita presented to ER 12/21/23 after calling crisis line reporting suicidal ideation with plan to overdose on medications. She was voluntarily admitted to inpatient from 12/21/2023-12/29/2023 where quetiapine was added to duloxetine for mood/sleep. Nita also began with [facility] programming 12/29/2023 with anticipated discharge date of 01/23/2024. Nita last seen by [facility] psychiatrist Dr. Aparicio 01/14/2024 where she reported feeling okay, but noting some hallucinations/sleep walking behavior. Per 01/14/24 assessment, unclear if it was due to orthostasis or anticholinergic side effect from quetiapine although she reported that it occurred prior to taking her morning dose of quetiapine. currently taking quite high doses of quetiapine 200mg QAM and 300mg PO QHS with 25mg TID prn. Per inpatient discharge summary, SGA augmentation was chosen given hx poor antidepressant response and tachyphylaxis. Per quetiapine package insert, when used as adjunctive therapy for MDD, max dose 300mg/day. Per chart review, appears has found benefit with quetiapine for mood/anxiety, but would consider discussion of recommended dosing and consider reducing dose of quetiapine to more closely match recommendations. Additionally, given high doses, quetiapine could be contributing to oversedation and lead to overtired hallucinations described, but further evaluation by diagnostician is warranted. [place] w/ recent antipsychotic monitoring labs (lipids, A1c, BMP), vitals (blood pressure, weight), but no AIMS exam on file. Would recommend AIMS exam at next clinic appointment. Additionally, per review of chart, w/out many prior antidepressant trials and those that were trialed were low dose. [place] currently prescribed duloxetine up to 60mg/day. While doses up to 120mg/day have been shown to be effective, there is no evidence that doses greater than 60 mg/day confer additional benefit. Nonetheless, increasing dose of duloxetine may be considered for additional mood benefit. Alternatively, could consider trial of alternate SSRI/SNRI like sertraline/venlafaxine, which have FDA indication for PTSD as well as depression/anxiety. May also consider initiating prazosin for PTSD- related nightmares if appropriate. PLAN: - Will ensure RTC is placed for MH medication bridging with Dr. Lowry Time Spent: 60 min /lilia/ NOLVIA SAWYER PHARMACIST Signed: 01/16/2024 12:53 Receipt Acknowledged By: 01/16/2024 13:18 /lilia/ SCARLETT LOWRY Mental Health Clinical Pharmacist Practitioner NOLVIA SAWYER [facility]
--- OUTSIDE RECORDS SUMMARY | 2024-05-04 07:53 | XMS_ITS | Encounter Summary ---
Author Name [facility] [place] [facility] [place] Address [address] [place] [address] Care Team Providers Care Psychiatric Arnp Name Role Phone EMIR GRACIA Primary Care Provider Unavailabl e Selected Encounter This section includes the information on record at [place] for the Encounter. Date/Time Encounter Type Encounter Description Reason Provider Source Jan 14, 2024 12:00 PM OFFICE O/P EST LOW 20 [facility] ICD-10-CM F43.12 Post-traumatic stress disorder, ALISIA Harrell Lorie Encounter Template Text not used by [place] Assessments - Encounter Diagnoses This section includes the primary and secondary diagnoses documented for the Encounter. Date/Time Primary/Secondary Diagnosis Diagnosis Name Provider Source Jan 14, 2024 04:17 PM PRIMARY Post-traumatic stress disorder, ALISIA Harrell [facility] Plan of Treatment: Future Appointments (+ 6 months) and Future Tests (+/- 45 days) The Plan of Treatment section includes future care activities for the patient from all [place] treatmentfacilities. This section includes future appointments and future orders which are active, pending or scheduled. Future Appointments This section includes appointments that were scheduled to occur 6 months from the date of the Encounter, up to a maximum of 20 appointments. The data comes from all [place] treatment facilities. Appointment Date/Time Appointment Type Appointme nt Facility Name Jan 15, 2024 08:45 AM AMBULATORY [facility] Jan 15, 2024 10:00 AM AMBULATORY [facility] Jan 15, 2024 11:00 AM AMBULATORY - [facility] Jan 16, 2024 08:45 AM AMBULATORY - [facility] Jan 16, 2024 10:00 AM AM[facility]ATORY [facility] Jan 16, 2024 11:00 AM AMBULATORY [facility] Jan 19, 2024 08:45 AM AMBULATORY - [facility] Jan 19, 2024 10:00 AM AMBULATORY - [facility] Jan 19, 2024 11:00 AM AM[facility]ORY [facility] Jan 19, 2024 12:00 PM AMBULATORY [facility] Jan 20, 2024 08:45 AM AM[facility]ORY [facility] Jan 20, 2024 10:00 AM AM[facility]ORY [facility] Jan 20, 2024 11:00 AM AM[facility] Jan 21, 2024 08:45 AM AM[facility]ORY [facility] Jan 21, 2024 10:00 AM AM[facility]ATORY [facility] Jan 21, 2024 11:00 AM AM[facility] Jan 23, 2024 08:45 AM AM[facility] Jan 23, 2024 10:00 AM AM[facility]ORY [facility] Jan 23, 2024 11:00 AM [facility]ORY - [facility] Jan 23, 2024 12:00 PM AMBULATORY - [facility] Active, Pending, and Scheduled Orders This section includes a listing of several types of active, pending, and scheduled orders, including clinic medications orders, diagnostic test orders, procedure orders and consult orders; where the start date of the order is 45 days before the date of the Encounter or 45 days after the date of theEncounter. The data comes from all [facility]. Test Date/Time Test Type Test Details Facility Name December 05, 2023 02:27 PM Laboratory - Chemi stry Order BLOOD GAS PANEL FOR ICU ARTERIAL BLOOD STAT [facility] December 12, 2023 03:21 PM Laboratory - Chemi stry Order CALPROTECTIN,STOOL STOOL FECES SP ONCE [facility] Dec 21, 2023 04:56 PM Laboratory - Chemi stry Order SALICYLATE SERUM STAT SP [facility] Lab Results: +/- 30 days of the encounter This section includes the Chemistry and Hematology Lab Results on record with [place] for the patient. Radiology Reports and Pathology [...] 21, 2023 08:58 PM Reporting Lab: [facility] [id number] Performing Lab: [facility] [id number] HEMOGLOBIN A1C 4.9 4.0-6.0 Dec 22, 2023 06:44 AM [facility] B 12 Specimen Type: SERUM No comment entered. Ordering Provider: Celeste CARRIZALES Report Released Date/Time: Dec 21, 2023 08:58 PM Reporting Lab: [facility] [id number] Performing Lab: [facility] [phone] B 12 381 pg/mL 213-816 Dec 22, 2023 06:44 AM [facility] VIT D 25-OH,TOTAL Specimen Type: SERUM No comment entered. Ordering Provider: Celeste CARRIZALES Report Released Date/Time: Dec 21, 2023 08:58 PM Reporting Lab: [facility] [id number] Performing Lab: [facility] [id number] VIT D 25-OH,TOTAL 29 ng/mL 12-50 Dec 22, 2023 06:44 AM [facility] FOLATE Specimen Type: PLASMA No comment entered. Ordering Provider: Celeste CARRIZALES Report Released Date/Time: Dec 21, 2023 08:58 PM Reporting Lab: [facility] [id number] Performing Lab: [facility] [id number] FOLATE 7.1 ng/mL >7.0 Dec 22, 2023 06:44 AM [facility] TSH W/REFLEX TO FREE T4 Specimen Type: PLASMA No comment entered. Ordering Provider: Celeste CARRIZALES Report Released Date/Time: Dec 21, 2023 08:58 PM Reporting Lab: [facility] [phone] Performing Lab: [facility] [address] TSH 0.36 u[IU]/mL 0.35-4.94 Dec 22, 2023 06:44 AM [facility] LIPID PANEL,FASTING Specimen Type: PLASMA No comment entered. Ordering Provider: Celeste CARRIZALES Report Released Date/Time: Dec 21, 2023 08:58 PM Reporting Lab: [facility] [phone] Performing Lab: [facility] [address] CHOLESTEROL 170 mg/dL <199 TRIGLYCERIDE 151 mg/dL [...] 21, 2023 04:56 PM Reporting Lab: [facility] [phone] Performing Lab: [facility] [phone] BARBITURATES Negative Negative AMPHETAMINES Negative Negative COCAINE [...] 21, 2023 04:56 PM Reporting Lab: [facility] [phone] Performing Lab: [facility] [phone] ETHANOL Negative mg/dL NEGATIVE Dec 21, 2023 05:30 PM [facility] COMPREHENSIVE METABOLIC PANEL+MG Specimen Type: PLASMA No comment entered. Ordering Provider: MONIQUE VÁSQUEZ Report Released Date/Time: Dec 21, 2023 04:56 PM Reporting Lab: [facility] [address] Performing Lab: [facility] [phone] CREATININE 1.0 mg/dL 0.5-1.0 UREA NITROGEN 9 [...] 71 >60 Dec 21, 2023 05:30 PM [facility] CBC & DIFF Specimen Type: BLOOD Comment: Automated Differential Performed Ordering Provider: MONIQUE VÁSQUEZ Report Released Date/Time: Dec 21, 2023 04:56 PM Reporting Lab: [facility] [id number] Performing Lab: [facility] [phone] WBC 9.50 10*3/uL 4.0-11.0 RBC 4.69 10*6/uL [...] and tobacco- related health factors from the [place] facility where the Encounter took place. Current Smoking Status This section includes the most current smoking, or tobacco-related health factor, from the [place] facility where the Encounter took place. Date/Time Current Smoking Status Comment Latasha ity Jan 05, 2024 12:00 PM VA-TOBACCO FORMER USER [facility] Tobacco Use History This section includes a history of the smoking, or tobacco-related health factors, that were collected on or before the date of the Encounter. The data comes from the [place] facility where the Encounter took place. Date/Time Smoking Status/Tobacco Use Comment F acility Jan 05, 2024 12:00 PM [place]-TOBACCO QUIT 5 TO < 15 YRS [facility] Advance Directives: All historical and current Section Date Range: From patient's date of to the date document was created. This section includes ALL of a patient's completed or amended [place] Advance and Rescinded Directives. The entries below indicate that a directive exists for the patient, but an actual copy is not included with this document. The data comes from all [place] facilities. Date Advance Directives Provider Source Jan 05, 2024 ADVANCE DIRECTIVE DISCUSSION SHAHID WAGNER [facility] Encounter Notes: All associated encounter notes This section contains the clinical notes associated to the Encounter. Date/Time Encounter Note(s) Provider Source Jan 14, 2024 02:36 PM PSYCHIATRY E & M N OTE: LOCAL TITLE: PSYCHIATRIC EVALUATION & MANAGEMENT STANDARD TITLE: PSYCHIATRY E & M NOTE DATE OF NOTE: JAN 14, 2024@14:36 ENTRY DATE: JAN 14, 2024@14:36:11 AUTHOR: ALISIA APARICIO COSIGNER: URGENCY: STATUS: COMPLETED seen for 20 minute medication management visit with >16 minutes spent in psychotherapy including psychoeducation. PPH Week: 2 SOURCE OF INFORMATION: interview and chart review SUBJECTIVE: Mexia reported her mood as, okay. She reported that on Friday morning she work up experiencing, hallucinations or sleep walking or something but I couldn't tell what was real. She reported that she normally takes her morning medications at 10:00 am since to leave 12 hours in between her evening and quetiapine doses. She reported that she had gone home over the weekend from [place] and, I was mostly hearing things but I think I was seeing some things too. Like things from the call at work and I was walking upstairs my house, but things didn't seem real. She also contacted her ex- and he wasn't hearing the things or seeing the things she was, The metal on metal made me ask if he had brought the dogs. She reported that he told her she kept asking him if he was real. She reported that in the past, she experienced hallucinations while prescribed compazine in the past, It had been January and I thought it was Maryann but I knew I was hallucinating at that point but this time I couldn't tell if things were real or not. She hadn't taken her morning duloxetine or quetiapine doses yet, It was just very weird and I don't know if I was half asleep or overly tired. She reported that it lasted, About an hour and a half and it hasn't happened since. I still take my morning medications at 10:30 or 11:00 am and I am tired about 45 minutes to an hour afterward but then I'm okay. She reported, My sleep has been very disturbed, I have difficulty falling asleep and have a lot of nightmares and wake up at 3 and can't get back to sleep for at least an hour. She reported that she last took trazodone 1.5 weeks ago. She hasn't noticed any change in sleep since changing duloxetine from nighttime to bedtime. She reported that she has taken the quetiapine 25 mg PRN for anxiety about 3-4 times a week in the afternoon and evening. It was discussed that quetiapine can be quite sedating and higher doses are typically taken in the evening but she reported that on the inpatient unit she needed to morning quetiapine in addition to evening to prevent panic attacks. She declined to try prazosin for nightmares or make changes to quetiapine dosing. She reported that she wants to continue her current medication regimen as is because, Overall my mood is better. The nightmares and fear of going to sleep is hard but I'm still able to get adequate sleep. Regarding suicidal thoughts, she reported, A few intrusive, fleeting thoughts like I wonder what if I just drove off the road? but then I think oh that's just silly, and reported it goes away. She denied any actual intent, preparatory behavior, or actually making plans. She reported that PPH is going well and has been helpful for handling emotions. She reported that she's still anxious about work and trying to decide if she should return to work or not and whether or not she could be triggered again by a call and unable to complete her job. She stated that she plans to talk to vocational rehab and is in the process of applying for an emotional support dog but wonders if that will be enough. Regarding her medications she reported that she takes: DRUG STATUS SIG DULOXETINE HCL 60MG EC CAP ACTIVE SIG: TAKE ONE CAPSULE BY MOUTH EVERY DAY FOR MOOD Taking during the day EPINEPHRINE (EQV-EPI-PEN) 0.3MG/0.3ML ACTIVE SIG: INJECT 1 PEN DIRECTED NEEDED FOR ALLERGIC REACTION Hasn't needed in over 4-5 months CETIRIZINE HCL 5MG TAB ACTIVE SIG: TAKE ONE TABLET BY MOUTH EVERY MORNING NEEDED FOR ALLERGIC REACTION Takes with prednisone for severe allergic reaction, hasn't needed in >4 months ALBUTEROL 90MCG (CFC-F) 200D ORAL INHL ACTIVE SIG: INHALE 1 PUFF BY INHALATION FOUR TIMES A DAY NEEDED FOR SHORTNESS OF BREATH Only when having a severe allergic reaction, hasn't needed recently PREDNISONE 50MG TAB ACTIVE SIG: TAKE TWO TABLETS BY MOUTH NEEDED ONCE FOR ANAPHYLAXIS- TAKE IMMEDIATELY 100MG PREDNISONE AND 2 TABS CETIRIZINE (5MG EACH) FOR SEVERE ALLERGIC REACTION Takes with Zyrtec for severe allergic reaction, hasn't needed in >4 months CLONIDINE HCL 0.1MG TAB ACTIVE SIG: TAKE [...] 6 HOURS NEEDED FOR NAUSEA AND VOMITING Only needed for pancreatitis flair, hasn't needed recently QUETIAPINE FUMARATE 25MG TAB ACTIVE SIG: TAKE ONE TABLET BY MOUTH THREE TIMES A DAY NEEDED FOR ANXIETY Taken 3-4 times a week, once a day in the late afternoon/evening [...] BEDTIME NEEDED FOR SLEEP Taking as prescribed, hasn't taken in 1.5 weeks LORAZEPAM 0.5MG TAB 0.5MG Q8H NEEDED Statement/Explanation/Commen t: Non-VA medication that patient takes on their own. Non-VA medication not recommended by VA provider. Medication prescribed by Non-VA provider. Need VA pain clinic to review only uses for pancreatitis flair, last used in early November HYDROMORPHONE 2MG TAB 4MG Q6H NEEDED Statement/Explanation/Commen t: Non-VA medication that patient takes on their own. Non-VA medication not recommended by VA provider. Medication prescribed by Non-VA provider. Need VA pain clinic follow up only uses for pancreatitis flair, last used in early November OBJECTIVE: Previous notes, vitals, and medications reviewed. ALLERGIES: PFIZER COVID-19 VACCINE (EUA) (Mar 26, 2023) FENTANYL (Mar 26, 2023) INFLUENZA (Mar 26, 2023) MIRALAX (Mar 26, 2023) Vitals Signs: Blood Pressure: 125/80 (01/05/2024 12:11) Temperature: 98.6 F [37.0 C] (01/05/2024 12:11) Pulse: 77 (01/05/2024 12:11) Respiration: 16 (01/05/2024 12:11) Height: 67.323 in [171.0 cm] (03/27/2023 09:03) Weight: Measurement DT WEIGHT LB(KG)[BMI] 12/25/2023 06:18 206.0(93.44)[32*] 12/22/2023 10:18 201.1(91.22)[31*] 07/02/2023 14:03 214.8(97.43)[33*] CURRENT MEDICATIONS: Active Outpatient Medications (excluding Supplies): [...] 8 HOURS ACTIVE NEEDED 20 Total Medications LABS REVIEWED THIS VISIT: UREA NITROGEN 9 (12/21/23) GLUCOSE 120 H (12/21/23) SODIUM 140 (12/21/23) CHLORIDE 108 H (12/21/23) POTASSIUM 3.5 (12/21/23) CO2 23 (12/21/23) CHOLESTEROL 170 (12/22/23) TRIGLYCERIDE 151 H (12/22/23) POTASSIUM 3.5 (12/21/23) SODIUM 140 (12/21/23) GLUCOSE 120 H (12/21/23) HEMOGLOBIN A1C 4.9 (12/22/23) TSH 0.36 (12/22/23) CREATININE 1.0 (12/21/23) WBC 9.50 (12/21/23) PLT 374 (12/21/23) SGOT 16 (12/21/23) SGPT 20 (12/21/23) B 12 381 (12/22/23) MENTAL STATUS EXAM: General: Alert, attentive, cooperative, no acute distress Dress: Casual, appropriate for the weather Grooming: Clean, adequately groomed Eye Contact: Good Psychomotor Activity: Normal Abnormal Involuntary Movements: None Speech: Regular rate and rhythm, normal volume, coherent, no dysarthria Mood: okay Affect: mood-congruent Thought Process: Linear, logical, goal-oriented Denied current suicidal thoughts and plans although reports but reported that she occasionally has A few intrusive, fleeting thoughts like I wonder what if I just drove off the road? but then I think oh that's just silly, and reported it goes away. She denied any actual intent, preparatory behavior, or actually making plans. She denied homicidal thoughts and plans Perceptual Disturbance: None currently, but reported recent auditory and visual hallucinations on Friday morning Insight: Fair Judgment: adequate for safety Cognition / Sensorium: Not formally assessed but appeared grossly intact SUICIDE RISK ASSESSMENT: Reviewed CSRE by Tammy [...] reality testing in tact, future oriented Reports baptism or spiritual beliefs/connections Comment: Sabianism andrew Clinical Impressions: The clinical impression of [...] ZAVALA is a 43-year-old seen for initial PPH medication management visit. Mexia's outpatient therapist is Frances Cruz. She was recently admitted for inpatient psychiatric [...] next steps. She denied current suicidal thoughts or plans but endorsed having a few occasional intrusive suicidal thoughts but denied any actual intent, preparatory behavior, or actually making plans. Given her report that duloxetine causes anxiety at night, she tried taking it during the daytime although she's not certain if it's made a significant difference. She reported experiencing auditory and visual hallucinations once this past weekend that resolved after an hour and half. She's uncertain if it was due to being overly tired, but it hasn't happened since. Unclear if it was due to orthostasis or anticholinergic side effect from quetiapine although she reported that it occurred prior to taking her morning dose of quetiapine. Discussed prazosin as a possible option for nightmares and discussed attempting to consolidate quetiapine dose to nighttime only which she declined stating that she does not want to make current changes to her medication regimen. Of note, she is prescribed Dilaudid and lorazepam from a non-VA prescriber for pancreatitis flairs which she hasn't used since November and was agreeable to a naloxone rescue kit. She has an intake at the [facility] with Dr. Alonso but will be seen for a bridging appointment with pharmacist Vero De La Cruz. PLAN: 1. Continue PPH programming 2. MEDICATION Changes: -order naloxone rescue kit Continue: -duloxetine 60 mg qam -quetiapine 200 mg qam -quetiapine 300 mg qhs -quetiapine 25 mg TID PRN anxiety (currently taking one every late afternoon/evening) -trazodone 50 mg qhs prn sleep PDMP Last PDMP Note 01/05/24 3. CONSULTS/REFERRALS/LABS: -n/a, antipsychotic labs annually, last completed 12/2023 4. FUTURE CONSIDERATIONS: -could consider increasing duloxetine 5. FOLLOW-UPS: 01/18 at noon for 30 min f2f EDUCATION: - Encouraged medication compliance and educated on the importance of continuing to take even if feeling better; and to not stop taking medications without checking with the healthcare provider; and to call us when questions arise about medications. The was counseled to keep follow-up appointments. - Risk of any continued use of alcohol or drugs; importance of abstaining from any drugs and alcohol; as well as risk of mixing, and or concurrently taking, prescription medications with substances, drugs or alcohol was dicussed with patient, who verbalized understanding of this risk. - We discussed crisis resources in detail. The was directed to contact [facility] [phone]) or Outpatient Mental Health ( ) for ROUTINE questions/concerns, to call the [employer] Crisis Line ( ) and press 1 for URGENT or EMERGENT situations or to call 911 or present to the nearest ER. Also, the the was advised that the [facility] ER is available to the on a 10/02 basis. Care provided: Follow up care covered under the COMPACT Act of 2020 Section 201. Supporting clinical documentation: see SB[facility] by Dr. Carrizales 12/22/23 Also, cosigning Vero De La Cruz for medication bridging appointment following PPH which ends 01/22. /lilia/ Alisia Aparicio DO Staff Psychiatrist Signed: 01/14/2024 16:17 Receipt Acknowledged By: 01/16/2024 13:18 /lilia/ VERO DE LA CRUZ Mental Health Clinical Pharmacist Practitioner ALISIA APARICIO [facility]
--- OUTSIDE RECORDS SUMMARY | 2024-05-04 07:53 | XMS_ITS | Encounter Summary ---
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 Date/Time Encounter Type Encounter Description Reason Provider Source Dec 27, 2023 08:33 AM [facility] IP/OBS [facility] - IND ICD-10-CM F41.1 Generalized anxiety disorder TILA BARAJAS [facility] Encounter Template Text not used by [place] Assessments - Encounter Diagnoses This section includes the primary and secondary diagnoses documented for the Encounter. Date/Time Primary/Secondary Diagnosis Diagnosis Name Provider Source Dec 27, 2023 10:27 AM PRIMARY Generalized anxiety disorder TILA BARAJAS [facility] Dec 27, 2023 10:27 AM SECONDARY Major depressive disorder, single episode, unspecified TILA BARAJAS [facility] Dec 27, 2023 10:27 AM SECONDARY Personal history of other mental and behavioral disorders TILA BARAJAS [facility] Plan of Treatment: Future Appointments [...] 20 appointments. The data comes from all [facility] facilities. Appointment Date/Time Appointment Type Appointme nt Facility Name Dec 29, 2023 11:30 AM AMBULATORY - PS[place]IATRY [place] [facility] Dec 30, 2023 10:30 AM AMBULATORY - MEDICINE [facility] Dec 30, 2023 01:00 PM AMBULATORY - PSYCHIATRY [facility] Jan 04, 2024 02:00 PM [facility] Jan 05, 2024 08:45 AM AMBULATORY - PSYCHIATRY [facility] Jan 05, 2024 10:00 AM AMBULATORY - PS[facility]CHIATRY [facility] Jan 05, 2024 11:00 AM AMBULATORY - PSYCHIATRY [facility] Jan 05, 2024 12:00 PM AMBULATORY - PS[facility]CHIATRY [facility] Jan 05, 2024 12:30 PM AMBULATORY - PS[facility]CHIATRY [facility] Jan 05, 2024 02:30 PM AMBULATORY - PS[facility]CHIATRY [facility] Jan 06, 2024 08:45 AM AMBULATORY - PS[facility]CHIATRY [facility] Jan 06, 2024 10:00 AM AMBULATORY - PSYCHIATRY [facility] Jan 06, 2024 11:00 AM AMBULATORY - PS[facility]CHIATRY [facility] Jan 08, 2024 08:45 AM AMBULATORY - PS[facility]CHIATRY [facility] Jan 08, 2024 10:00 AM AMBULATORY - PSYCHIATRY [facility] Jan 08, 2024 11:00 AM AMBULATORY - PSYCHIATRY [facility] Jan 09, 2024 08:45 AM AMBULATORY - PSYCHIATRY [facility] Jan 09, 2024 10:00 AM AMBULATORY - PS[facility]CHIATRY [facility] Jan 09, 2024 11:00 AM AMBULATORY - PS[facility]CHIATRY [facility] Jan 12, 2024 08:45 AM [facility] Active, Pending, and Scheduled Orders [...] ELASTASE-1,PANC STL STOOL FECES SP ONCE [facility] November 19, 2023 12:00 AM Laboratory - Chemi stry Order TTG AB,IGA SERUM SP ONCE [facility] November 19, 2023 12:00 AM Laboratory - Chemi stry Order IGA PLASMA SP ONCE [facility] November 19, 2023 12:00 AM Laboratory - Microbiology Order OVA & PARASITES FECAL FECES SP ONCE [facility] November 19, 2023 12:00 AM Laboratory - Chemi stry Order ENTERIC PATHOGEN PCR PANEL STOOL FECES SP ONCE [facility] December 05, 2023 02:27 PM Laboratory - Chemi stry Order BLOOD GAS PANEL FOR ICU ARTERIAL BLOOD STAT WC [facility] December 12, 2023 03:21 PM Laboratory - Chemi stry Order CALPROTECTIN,STOOL STOOL FECES SP ONCE [facility] Dec 21, 2023 04:56 PM Laboratory - Chemi stry Order SALICYLATE SERUM STAT SP [facility] Lab Results: +/- 30 days [...] Comment Dec 22, 2023 06:[address] [facility] HEMOGLOBIN A1C Specimen Type: BLOOD Comment: Values obtained from A1C measurements can vary. For typical A1C assays, a reported value of 7.0 could actually be between 6.7 and 7.3 if measured by a reference method. A reported value of 9.0 could actually be between 8.7 and 9.3. Ref: http://www.ng sp.org/CAPdat a.asp Ordering Provider: Celeste DUKES Report Released Date/Time: Dec 21, 2023 08:58 PM Reporting Lab: [facility] [phone] Performing Lab: [facility] [phone] HEMOGLOBIN A1C 4.9 4.0-6.0 Dec 22, 2023 06:[address] [facility] B 12 Specimen Type: SERUM No comment entered. Ordering Provider: Celeste DUKES Report Released Date/Time: Dec 21, 2023 08:58 PM Reporting Lab: [facility] [phone] Performing Lab: [facility] [address] B 12 381 pg/mL 213-816 Dec 22, 2023 06:[address] [facility] VIT D 25-OH,TOTAL Specimen Type: SERUM No comment entered. Ordering Provider: Celeste DUKES Report Released Date/Time: Dec 21, 2023 08:58 PM Reporting Lab: [facility] [phone] Performing Lab: [facility] [phone] VIT D 25-OH,TOTAL 29 ng/mL 12-50 Dec 22, 2023 06:[address] [facility] FOLATE Specimen Type: PLASMA No comment entered. Ordering Provider: Celeste DUKES Report Released Date/Time: Dec 21, 2023 08:58 PM Reporting Lab: [facility] [phone] Performing Lab: [facility] [phone] FOLATE 7.1 ng/mL >7.0 Dec 22, 2023 06:[address] [facility] LIPID PANEL,FASTING Specimen Type: PLASMA No comment entered. Ordering Provider: Celeste DUKES Report Released Date/Time: Dec 21, 2023 08:58 PM Reporting Lab: [facility] [phone] Performing Lab: [facility] [phone] CHOLESTEROL 170 mg/dL <199 TRIGLYCERIDE 151 mg/dL H <149 .HDL 34 mg/dL L >50 LDL CALCULATION 106 mg/dL H <99 VLDL CALCULATION 30 mg/dL H <29 NON HDL CHOLESTEROL 136 mg/dL H <129 Dec 22, 2023 06:[address] [facility] TSH W/REFLEX TO FREE T4 Specimen Type: PLASMA No comment entered. Ordering Provider: Celeste DUKES Report Released Date/Time: Dec 21, 2023 08:58 PM Reporting Lab: [facility] [phone] Performing Lab: [facility] [phone] TSH 0.36 u[IU]/mL 0.35-4.94 Dec 21, 2023 09:[address] [facility] DRUG SCREEN PANEL,URINE Specimen Type: URINE Comment: Presumptive Positive by screen, results not confirmed. Ordering Provider: MONIQUE VÁSQUEZ Report Released Date/Time: Dec 21, 2023 04:56 PM Reporting Lab: [facility] [phone] Performing Lab: [facility] [phone] BARBITURATES Negative Negative AMPHETAMINES Negative Negative COCAINE Negative Negative BENZODIAZEPINES Negative Negative CANNABINOIDS POSITIVE H Negative METHADONE Negative Negative OPIATES Negative Negative PHENCYCLIDINE Negative Negative ETHANOL,URINE Negative Negative DRUG SCREEN CREAT 325.9 mg/dL >20.0 OXYCODONE Negative Negative BUPRENORPHINE Negative Negative TRAMADOL Negative Negative FENTANYL Negative Negative Dec 21, 2023 05:[address] [facility] ETHANOL Specimen Type: PLASMA No comment entered. Ordering Provider: MONIQUE VÁSQUEZ Report Released Date/Time: Dec 21, 2023 04:56 PM Reporting Lab: [facility] [phone] Performing Lab: [facility] [phone] ETHANOL Negative mg/dL NEGATIVE Dec 21, 2023 05:[address] [facility] COMPREHENSIVE METABOLIC PANEL+MG Specimen Type: PLASMA No comment entered. Ordering Provider: MONIQUE VÁSQUEZ Report Released Date/Time: Dec 21, 2023 04:56 PM Reporting Lab: [facility] [phone] Performing Lab: [facility] [phone] CREATININE 1.0 mg/dL 0.5-1.0 UREA NITROGEN 9 [...] >60 Dec 21, 2023 05:[address] [facility] CBC & DIFF Specimen Type: BLOOD Comment: Automated Differential Performed Ordering Provider: MONIQUE VÁSQUEZ Report Released Date/Time: Dec 21, 2023 04:56 PM Reporting Lab: [facility] [phone] Performing Lab: [facility] [phone] WBC 9.50 10*3/uL 4.0-11.0 RBC 4.69 10*6/uL [...] 10*3/uL 0-0.5 ABS BASO 0.07 10*3/uL 0-0.2 IG(META,MYELO,VT O) 0.3 ABS IMMATURE GRAN 0.03 10*3/uL 0-0.1 December 05, 2023 02:[address] [facility] EXTRA RED TUBE Specimen Type: SERUM No comment entered. Ordering Provider: NELSON RONQUILLO Report Released Date/Time: December 05, 2023 02:39 PM Reporting Lab: [facility] [phone] Performing Lab: [facility] [phone] EXTRA RED TUBE RECEIVED December 05, 2023 02:[address] [facility] LACTIC ACID Specimen Type: PLASMA No comment entered. Ordering Provider: NELSON RONQUILLO Report Released Date/Time: December 05, 2023 02:27 PM Reporting Lab: [facility] [phone] Performing Lab: [facility] [phone] LACTIC ACID 1.7 mmol/L 0.5-2.2 December 05, 2023 02:[address] [facility] CBC Specimen Type: BLOOD No comment entered. Ordering Provider: NELSON RONQUILLO Report Released Date/Time: December 05, 2023 02:27 PM Reporting Lab: [facility] [phone] Performing Lab: [facility] [phone] WBC 11.50 10*3/uL H 4.0-11.0 RBC 4.83 10*6/uL 4.0-5.4 HGB 13.6 g/dL 11.5-16 HCT 39.8 34.5-48 MCV 82.4 fL 80-100 MCH 28.2 pg 27-33 MCHC 34.2 g/dL 32.0-37.5 PLT 443 10*3/uL H 150-400 MPV 9.1 fL 7.4-10.4 RDW 12.5 11.5-14.5 December 05, 2023 02:[address] [facility] CODE BLUE(LYTE,CR,UN,GL,MG,CA,PHOS,TROP) Specimen Type: PLASMA No comment entered. Ordering Provider: NELSON RONQUILLO Report Released Date/Time: December 05, 2023 02:27 PM Reporting Lab: [facility] [phone] Performing Lab: [facility] [phone] CREATININE 1.1 mg/dL H 0.5-1.0 UREA NITROGEN 10 mg/dL 7-20 GLUCOSE 101 mg/dL H 70-100 SODIUM 138 mmol/L 136-145 POTASSIUM 3.8 mmol/L 3.5-5.1 CHLORIDE 107 mmol/L 98-107 CO2 22 mmol/L 22-29 CALCIUM 9.3 mg/dL 8.4-10.2 PHOSPHORUS 3.5 mg/dL 2.3-4.7 MAGNESIUM 1.9 mg/dL 1.6-2.6 ANION GAP 9 mmol/L 5-15 .CREAT EGFR(CKD-EPI) 64 >60 TROPONIN I, HS <3 <14 December 05, 2023 02:[address] [facility] EXTRA GOLD GEL TUBE Specimen Type: SERUM No comment entered. Ordering Provider: NELSON RONQUILLO Report Released Date/Time: December 05, 2023 02:39 PM Reporting Lab: [facility] [phone] Performing Lab: [facility] [phone] EXTRA GOLD GEL TUBE RECEIVED December 05, 2023 02:[address] [facility] PROTHROMBIN TIME/INR Specimen Type: PLASMA No comment entered. Ordering Provider: NELSON RONQUILLO Report Released Date/Time: December 05, 2023 02:27 PM Reporting Lab: [facility] [phone] Performing Lab: [facility] [phone] .INR 1.2 H 0.8-1.1 .PT 13.5 s H 9.4-12.5 December 05, 2023 02:[address] [facility] POC ABG/ELECTROLYTES Specimen Type: VENOUS BLOOD Comment: FIO2 = 40% Patient Temp: 36.6 C Sample Type = VENOUS Ordering Provider: ULYSSES ELDER Report Released Date/Time: December 06, 2023 08:24 PM Reporting Lab: [facility] [phone] Performing Lab: [facility] [address] POC PH 7.382 7.31-7.41 POC PCO2 35.0 [...] Height Weight Body Mass Index Source Dec 27, 2023 06:16 AM 98.1 83 114/77 1 [place] [facility] Advance Directives: All historical and current Section Date Range: From patient's date of to the date document was created. This section includes ALL of a patient's completed or amended [place] Advance and Rescinded Directives. The entries below indicate that a directive exists for the patient, but an actual copy is not included with this document. The data comes from all [place] facilities. Date Advance Directives Provider Source Jan 05, 2024 ADVANCE DIRECTIVE DISCUSSION SHAHID HURTADO [facility] Encounter Notes: All associated encounter notes This section contains the clinical notes associated to the Encounter. Date/Time Encounter Note(s) Provider Source Dec 27, 2023 08:34 AM PSYCHIATRY E & M N OTE: LOCAL TITLE: MH PSYCHIATRIC EVALUATION & MANAGEMENT STANDARD TITLE: PSYCHIATRY E & M NOTE DATE OF NOTE: DEC 27, 2023@08:34 ENTRY DATE: DEC 27, 2023@08:34:19 AUTHOR: ARTIS BARR EXP COSIGNER: URGENCY: STATUS: COMPLETED PSYCHIATRIC EVALUATION & MANAGEMENT Has ADDENDA PSYCHIATRIC EVALUATION AND MANAGEMENT FOLLOW UP VISIT Duration: 30 minutes Time spent performing psychotherapy services: 16-30 minutes INTERVAL HISTORY: Nursing notes reviewed. No acute safety or behavioral concerns overnight. Patient was seen and evaluated. She was resting in bed and awoke for the interview. She reports that she has been having nightmares that carry two general themes, she is trying to save someone or she is running away from someone. She says she generally has them 3-4x a week and this has increased to tis amount with increasing life stressors. She reports she felt like the seroquel has been helping and is agreeable to increasing the dose. 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 No further complaints reported. MEDICATION COMPLIANCE: compliant SIDE EFFECTS: none reported CURRENT MEDICATIONS: Active Inpatient Medications (including Supplies): [...] PO Q6H PRN ACTIVE 9) QUETIAPINE TAB 100MG PO QAM ACTIVE 10) QUETIAPINE TAB 300MG PO QHS ACTIVE 11) QUETIAPINE TAB 25MG PO TID PRN for anxiety ACTIVE 12) TRAZODONE TAB 50MG PO QHS PRN Instructions too long. ACTIVE See order details for full text. MOST RECENT VITALS: Wgt 206.0 lb [93.44 kg] (12/25/2023 06:18) Temp 98.1 F [36.7 C] (12/27/2023 06:16) HR 83 (12/27/2023 06:16) BP 114/77 (12/27/2023 06:16) RR 18 (12/25/2023 16:29) O2 97% (12/25/2023 16:29) MENTAL STATUS EXAM: General: Cooperative, lying in bed, somewhat groggy Eye Contact: downcast at times but mostly appropriate Psychomotor Activity: WNL (Within normal limits) Abnormal Involuntary Movements: None Speech: Regular rate and rhythm, normal volume Mood: really anxious Affect: Dysphoric Thought Process: Linear, logical, goal oriented Thought Content: passive SI with no intent or plan, no HI Perceptual disturbances: No AH(Auditory Hallucinations),VH(Visual Hallucinations), or [...] and Plan #Major Depressive Disorder, recurrent, severe r/o Bipolar II Disorder, currently in depressive state ASSESSMENT: 43-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 Today's Changes: - increase qam quetiapein to 200mg po PLAN: - Medications: quetiapine to 200 mg po QAM , quetiapine 300mg po QHS, duloxetine 60mg po qhs, trazodone 50mg po QHS PRN, quetiapine 25mg po TID PRN -Continue full, voluntary inpatient hospitalization -Close [...] and understanding. /lilia/ ARTIS BARR RESIDENT// Signed: 12/27/2023 10:01 Receipt Acknowledged By: 12/27/2023 10:27 /lilia/ BAYRON BARAJAS MD POD Psychiatrist 12/27/2023 ADDENDUM STATUS: COMPLETED Case discussed with Dr. Barr, note reviewed and agree with above. /lilia/ BAYRON BARAJAS MD POD Psychiatrist Signed: 12/27/2023 10:[address] [facility]
--- OUTSIDE RECORDS SUMMARY | 2024-05-04 07:53 | XMS_ITS | Encounter Summary ---
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 Date/Time Encounter Type Encounter Description Reason Provider Source Dec 28, 2023 08:40 AM [facility] IP/OBS [facility] - IND ICD-10-CM F32.9 Major depressive disorder, single episode, unspecified TILA BARAJAS [facility] Encounter Template Text not used by [place] Assessments - Encounter Diagnoses This section includes the primary and secondary diagnoses documented for the Encounter. Date/Time Primary/Secondary Diagnosis Diagnosis Name Provider Source Dec 28, 2023 10:57 AM PRIMARY Major depressive disorder, single episode, unspecified TILA BARAJAS [facility] Dec 28, 2023 10:57 AM SECONDARY Personal history of other mental and behavioral disorders TILA BARAJAS [facility] Plan of Treatment: Future Appointments (+ [...] 20 appointments. The data comes from all [facility]. Appointment Date/Time Appointment Type Appointme nt Facility Name Dec 29, 2023 11:30 AM AMBULATORY [place] [facility] Dec 30, 2023 10:30 AM AMBULATORY - MEDICINE LEEANN RAWLS [facility] Dec 30, 2023 01:00 PM AMBULATORY - PSYCHIATRY SH [place]I [facility] Jan 04, 2024 02:00 PM AM[place]ULATORY - NONE [place] [facility] Jan 05, 2024 08:45 AM AMBULATORY [place] [facility] Jan 05, 2024 10:00 AM [facility] Jan 05, 2024 11:00 [facility] Jan 05[facility] 2024 12:00 [facility] Jan 05[facility] 2024 12:30 [facility] Jan 05, 2024 02:30 [facility] Jan 06, 2024 08:45 [facility] Jan 06[facility] 2024 10:00 [facility] Jan 06[facility] 2024 11:00 [facility] Jan 08[facility] 2024 08:45 [facility] Jan 08[facility] 2024 10:00 [facility] Jan 08[facility] 2024 11:00 [facility] Jan 09, 2024 08:45 [facility] Jan 09, 2024 10:00 [facility] Jan 09, 2024 11:00 [facility] Jan 12, 2024 08:45 AM [facility] Active, Pending, and Scheduled Orders This section includes a listing of several types of active, pending, and scheduled orders, including clinic medications orders, diagnostic test orders, procedure orders and consult orders; where the start date of the order is 45 days before the date of the Encounter or 45 days after the date of theEncounter. The data comes from all [facility]. Test Date/Time Test Type Test Details Facility Name November 19, 2023 12:00 AM Laboratory - Chemi stry Order ELASTASE-1,PANC STL STOOL FECES SP ONCE [facility] November 19, 2023 12:00 AM Laboratory - Chemi stry Order IGA PLASMA SP ONCE [facility] November 19, 2023 12:00 AM Laboratory - Chemi stry Order TTG AB,IGA SERUM SP ONCE [facility] November 19, 2023 12:00 AM Laboratory - Microbiology Order OVA & PARASITES FECAL FECES SP ONCE [facility] November 19, 2023 12:00 AM Laboratory - Chemi stry Order ENTERIC PATHOGEN PCR PANEL STOOL FECES SP ONCE [facility] December 05, 2023 02:27 PM Laboratory - Chemi stry Order BLOOD GAS PANEL FOR ICU ARTERIAL BLOOD STAT WC [facility] December 12, 2023 03:21 PM Laboratory - Chemi stry Order CALPROTECTIN,STOOL STOOL FECES SP ONCE [facility] Dec 21, 2023 04:56 PM Laboratory - Chemi stry Order SALICYLATE SERUM STAT SP [facility] Lab Results: +/- 30 days of the encounter This section includes the Chemistry and Hematology Lab Results on record with [place] for the patient. Radiology Reports and Pathology Reports are provided separately, in subsequent sections. Lab Results This section contains the Chemistry/Hematology Results that were resulted 30 days before or 30 daysafter the date of the Encounter. Date/Time Source Result Type Result - Unit Interpretation Reference Range Comment Dec 22, 2023 06:44 AM [facility] HEMOGLOBIN A1C Specimen Type: BLOOD Comment: Values [...] 21, 2023 08:58 PM Reporting Lab: [facility] [phone] Performing Lab: [facility] [address] HEMOGLOBIN A1C 4.9 4.0-6.0 Dec 22, 2023 06:44 AM [facility] B 12 Specimen Type: SERUM No comment entered. Ordering Provider: Celeste DUKES Report Released Date/Time: Dec 21, 2023 08:58 PM Reporting Lab: [facility] [phone] Performing Lab: [facility] [address] B 12 381 pg/mL 213-816 Dec 22, 2023 06:44 AM [facility] VIT D 25-OH,TOTAL Specimen Type: SERUM No comment entered. Ordering Provider: Celeste DUKES Report Released Date/Time: Dec 21, 2023 08:58 PM Reporting Lab: [facility] [phone] Performing Lab: [facility] [address] VIT D 25-OH,TOTAL 29 ng/mL 12-50 Dec 22, 2023 06:44 AM [facility] FOLATE Specimen Type: PLASMA No comment entered. Ordering Provider: Celeste DUKES Report Released Date/Time: Dec 21, 2023 08:58 PM Reporting Lab: [facility] [phone] Performing Lab: [facility] [phone] FOLATE 7.1 ng/mL >7.0 Dec 22, 2023 06:44 AM [facility] TSH W/REFLEX TO FREE T4 Specimen Type: PLASMA No comment entered. Ordering Provider: Celeste DUKES Report Released Date/Time: Dec 21, 2023 08:58 PM Reporting Lab: [facility] [phone] Performing Lab: [facility] [address] TSH 0.36 u[IU]/mL 0.35-4.94 Dec 22, 2023 06:44 AM [facility] LIPID PANEL,FASTING Specimen Type: PLASMA No comment entered. Ordering Provider: Celeste DUKES Report Released Date/Time: Dec 21, 2023 08:58 PM Reporting Lab: [facility] [phone] Performing Lab: [facility] [address] CHOLESTEROL 170 mg/dL <199 TRIGLYCERIDE 151 mg/dL H <149 .HDL 34 mg/dL L >50 LDL CALCULATION 106 mg/dL H <99 VLDL CALCULATION 30 mg/dL H <29 NON HDL CHOLESTEROL 136 mg/dL H <129 Dec 21, 2023 09:33 PM [facility] DRUG SCREEN PANEL,URINE Specimen Type: URINE Comment: Presumptive Positive by screen, results not confirmed. Ordering Provider: MONIQUE VÁSQUEZ Report Released Date/Time: Dec 21, 2023 04:56 PM Reporting Lab: [facility] [phone] Performing Lab: [facility] [phone] BARBITURATES Negative Negative AMPHETAMINES Negative Negative COCAINE Negative Negative BENZODIAZEPINES Negative Negative CANNABINOIDS POSITIVE H Negative METHADONE Negative Negative OPIATES Negative Negative PHENCYCLIDINE Negative Negative ETHANOL,URINE Negative Negative DRUG SCREEN CREAT 325.9 mg/dL >20.0 OXYCODONE Negative Negative BUPRENORPHINE Negative Negative TRAMADOL Negative Negative FENTANYL Negative Negative Dec 21, 2023 05:30 PM [facility] ETHANOL Specimen Type: PLASMA No comment entered. Ordering Provider: MONIQUE VÁSQUEZ Report Released Date/Time: Dec 21, 2023 04:56 PM Reporting Lab: [facility] [phone] Performing Lab: [facility] [address] ETHANOL Negative mg/dL NEGATIVE Dec 21, 2023 05:30 PM [facility] COMPREHENSIVE METABOLIC PANEL+MG Specimen Type: PLASMA No comment entered. Ordering Provider: MONIQUE VÁSQUEZ Report Released Date/Time: Dec 21, 2023 04:56 PM Reporting Lab: [facility] [phone] Performing Lab: [facility] [phone] CREATININE 1.0 mg/dL 0.5-1.0 UREA NITROGEN 9 [...] 71 >60 Dec 21, 2023 05:30 PM [facility] CBC & DIFF Specimen Type: BLOOD Comment: Automated Differential Performed Ordering Provider: MONIQUE VÁSQUEZ Report Released Date/Time: Dec 21, 2023 04:56 PM Reporting Lab: [facility] [phone] Performing Lab: [facility] [phone] WBC 9.50 10*3/uL 4.0-11.0 RBC 4.69 10*6/uL [...] 10*3/uL 0-0.5 ABS BASO 0.07 10*3/uL 0-0.2 IG(META,MYELO,OK O) 0.3 ABS IMMATURE GRAN 0.03 10*3/uL 0-0.1 December 05, 2023 02:20 PM [facility] EXTRA RED TUBE Specimen Type: SERUM No comment entered. Ordering Provider: NELSON RONQUILLO Report Released Date/Time: December 05, 2023 02:39 PM Reporting Lab: [facility] [phone] Performing Lab: [facility] [phone] EXTRA RED TUBE RECEIVED December 05, 2023 02:20 PM [facility] LACTIC ACID Specimen Type: PLASMA No comment entered. Ordering Provider: NELSON RONQUILLO Report Released Date/Time: December 05, 2023 02:27 PM Reporting Lab: [facility] [phone] Performing Lab: [facility] [phone] LACTIC ACID 1.7 mmol/L 0.5-2.2 December 05, 2023 02:20 PM [facility] CODE BLUE(LYTE,CR,UN,GL,MG,CA,PHOS,TROP) Specimen Type: PLASMA No comment entered. Ordering Provider: NELSON RONQUILLO Report Released Date/Time: December 05, 2023 02:27 PM Reporting Lab: [facility] [address] Performing Lab: [facility] [phone] CREATININE 1.1 mg/dL H 0.5-1.0 UREA NITROGEN 10 mg/dL 7-20 GLUCOSE 101 mg/dL H 70-100 SODIUM 138 mmol/L 136-145 POTASSIUM 3.8 mmol/L 3.5-5.1 CHLORIDE 107 mmol/L 98-107 CO2 22 mmol/L 22-29 CALCIUM 9.3 mg/dL 8.4-10.2 PHOSPHORUS 3.5 mg/dL 2.3-4.7 MAGNESIUM 1.9 mg/dL 1.6-2.6 ANION GAP 9 mmol/L 5-15 .CREAT EGFR(CKD-EPI) 64 >60 TROPONIN I, HS <3 <14 December 05, 2023 02:20 PM [facility] EXTRA GOLD GEL TUBE Specimen Type: SERUM No comment entered. Ordering Provider: NELSON RONQUILLO Report Released Date/Time: December 05, 2023 02:39 PM Reporting Lab: [facility] [phone] Performing Lab: [facility] [address] EXTRA GOLD GEL TUBE RECEIVED December 05, 2023 02:20 PM [facility] CBC Specimen Type: BLOOD No comment entered. Ordering Provider: NELSON RONQUILLO Report Released Date/Time: December 05, 2023 02:27 PM Reporting Lab: [facility] [address] Performing Lab: [facility] [address] WBC 11.50 10*3/uL H 4.0-11.0 RBC 4.83 10*6/uL 4.0-5.4 HGB 13.6 g/dL 11.5-16 HCT 39.8 34.5-48 MCV 82.4 fL 80-100 MCH 28.2 pg 27-33 MCHC 34.2 g/dL 32.0-37.5 PLT 443 10*3/uL H 150-400 MPV 9.1 fL 7.4-10.4 RDW 12.5 11.5-14.5 December 05, 2023 02:20 PM [facility] PROTHROMBIN TIME/INR Specimen Type: PLASMA No comment entered. Ordering Provider: NELSON RONQUILLO Report Released Date/Time: December 05, 2023 02:27 PM Reporting Lab: [facility] [phone] Performing Lab: [facility] [address] .INR 1.2 H 0.8-1.1 .PT 13.5 s H 9.4-12.5 December 05, 2023 02:18 PM [facility] POC ABG/ELECTROLYTES Specimen Type: VENOUS BLOOD Comment: FIO2 = 40% Patient Temp: 36.6 C Sample Type = VENOUS Ordering Provider: ULYSSES ELDER Report Released Date/Time: December 06, 2023 08:24 PM Reporting Lab: [facility] [address] Performing Lab: [facility] [address] POC PH 7.382 7.31-7.41 POC PCO2 35.0 [...] Height Weight Body Mass Index Source Dec 28, 2023 06:30 AM 98.0 76 119/73 18 97 0 [place] [facility] Advance Directives: All historical and current Section Date Range: From patient's date of to the date document was created. This section includes ALL of a patient's completed or amended [place] Advance and Rescinded Directives. The entries below indicate that a directive exists for the patient, but an actual copy is not included with this document. The data comes from all [place] facilities. Date Advance Directives Provider Source Jan 05, 2024 ADVANCE DIRECTIVE DISCUSSION SHAHID HURTADO [facility] Encounter Notes: All associated encounter notes This section contains the clinical notes associated to the Encounter. Date/Time Encounter Note(s) Provider Source Dec 28, 2023 08:40 AM PSYCHIATRY E & M N OTE: LOCAL TITLE: PSYCHIATRIC EVALUATION & MANAGEMENT STANDARD TITLE: PSYCHIATRY E & M NOTE DATE OF NOTE: DEC 28, 2023@08:40 ENTRY DATE: DEC 28, 2023@08:40:23 AUTHOR: ARTIS BARR EXP COSIGNER: URGENCY: STATUS: COMPLETED PSYCHIATRIC EVALUATION & MANAGEMENT Has ADDENDA PSYCHIATRIC EVALUATION AND MANAGEMENT FOLLOW UP VISIT Duration: 30 minutes Time spent performing psychotherapy services: 16-30 minutes INTERVAL HISTORY: Nursing notes reviewed. No acute safety or behavioral concerns overnight. Patient was seen and evaluated. She reports much improvement with the increased dose of Seroquel. She reports before she felt like she was just watching her life and now she feels like she can be present. She feels the medication will help her to take fully advantage of the [facility] and is loooking forward to discharge tomorrow. She expressed her sister and ex visited her yesterday and then both mentioned this is the best she has sounded and looked in a while. She will like to remain at her current dose. No further concerns reported. MEDICATION COMPLIANCE: compliant SIDE EFFECTS: none [...] PRN ACTIVE 9) QUETIAPINE TAB 200MG PO QAM dose increased 12/26 ACTIVE 10) QUETIAPINE TAB 300MG PO QHS ACTIVE 11) QUETIAPINE TAB 25MG PO TID PRN for anxiety ACTIVE 12) TRAZODONE TAB 50MG PO QHS PRN Instructions too long. ACTIVE See order details for full text. MOST RECENT VITALS: Wgt 206.0 lb [93.44 kg] (12/25/2023 06:18) Temp 98.0 F [36.7 C] (12/28/2023 06:30) HR 76 (12/28/2023 06:30) BP 119/73 (12/28/2023 06:30) RR 18 (12/28/2023 06:30) O2 97% (12/28/2023 06:30) MENTAL STATUS EXAM: General: Cooperative,engaged open, appeared brighter than previous days Eye Contact: appropriate Psychomotor Activity: WNL (Within normal limits) Abnormal Involuntary Movements: None Speech: Regular rate and rhythm, normal volume Mood: much better Affect: mood congruent, less dysphoric and much brighter Thought Process: Linear, logical, goal oriented, future oriented Thought Content: passive SI with no intent or plan, no HI Perceptual disturbances: No AH(Auditory Hallucinations),VH(Visual Hallucinations), or delusions Insight: good Judgment: good Attention/Concentration: Intact for exam purposes Musculoskeletal: Muscle strength/tone intact for exam purposes. SUICIDE RISK ASSESSMENT: RISK FACTORS: Hx of attempt, financial stress, impulsive behaviors, gambling, limited support system, ongoing SI PROTECTIVE FACTORS:Help seeking behavior, children, employment+ school PERCEIVED ACUTE SUICIDE RISK: intermediate acute - suicidal ideation but able to maintain safety, can articulate safety plan and reason for living. PERCEIVED CHRONIC SUICIDE RISK: Intermediate Chronic - Some chronic risk factors but also has protective factors, coping skills, articulates reason for living. 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 Today's Changes: - none PLAN: - Medications: quetiapine 200 mg po QAM , quetiapine 300mg [...] and understanding. /lilia/ ARTIS BARR RESIDENT// Signed: 12/28/2023 09:51 Receipt Acknowledged By: 12/28/2023 10:57 /lilia/ BAYRON BARAJAS MD POD Psychiatrist 12/28/2023 ADDENDUM STATUS: COMPLETED Case discussed with Dr. Barr, note reviewed and agree with above. /lilia/ BAYRON BARAJAS MD POD Psychiatrist Signed: 12/28/2023 11:12 ARTIS BARR [facility]
--- OUTSIDE RECORDS SUMMARY | 2024-05-04 07:53 | XMS_ITS | Encounter Summary ---
Author Name [facility] [place] Organization [facility] [facility] [place] Address [address] [place] [address] Care Team Providers Care Apple Picker Name Role Phone EMIR GRACIA Primary Care Provider Unavailabl e Selected Encounter This section includes the information on record at [place] for the Encounter. Date/Time Encounter Type Encounter Description Reason Provider Source Dec 26, 2023 10:14 AM [facility] IP/OBS [facility] - IND ICD-10-CM F32.9 Major depressive disorder, single episode, unspecified VARICAT,LA SCO P IHE Encounter Template Text not used by [place] Assessments - Encounter Diagnoses This section includes the primary and secondary diagnoses documented for the Encounter. Date/Time Primary/Secondary Diagnosis Diagnosis Name Provider Source Dec 26, 2023 11:40 AM PRIMARY Major depressive disorder, single episode, unspecified VARICAT,LA SCO P [facility] Plan of Treatment: Future Appointments (+ [...] 29, 2023 11:30 AM AMBULATORY [place] [facility] Dec 30, 2023 10:30 AM AMBULATORY - MEDICINE [place]EE[place] SINAI [facility] Dec 30, 2023 01:00 PM AMBULATORY - PSYCHIATRY SH WILI [facility] Jan 04, 2024 02:00 PM AM[place]UL[place]ORY [place]ONE [place] [facility] Jan 05, 2024 08:45 AM [facility] Jan 05, 2024 10:00 AM [place] [facility] Jan 05, 2024 11:00 AM AMBUL[place]ORY [place] [facility] Jan 05, 2024 12:00 PM [facility] Jan 05, 2024 12:30 PM [facility] Jan 05, 2024 02:30 PM [facility] Jan 06, 2024 08:45 AM [facility] Jan 06, 2024 10:00 AM [facility] Jan 06, 2024 11:00 AM [facility] Jan 08, 2024 08:45 AM [facility] Jan 08, 2024 10:00 AM [facility] Jan 08[facility] 2024 11:00 AM [facility] Jan 09, 2024 08:45 AM [facility] Jan 09, 2024 10:00 AM [facility] Jan 09, 2024 11:00 AM [facility] Jan 12, 2024 08:45 AM [facility] Active, Pending, and Scheduled Orders [...] Order ELASTASE-1,PANC STL STOOL FECES SP ONCE [facility] November 19, 2023 12:00 AM Laboratory - Chemi stry Order IGA PLASMA SP ONCE [facility] November 19, 2023 12:00 AM Laboratory - Chemi stry Order TTG AB,IGA SERUM SP ONCE [facility] November 19, 2023 12:00 AM Laboratory - Microbiology Order OVA & PARASITES FECAL FECES SP ONCE [facility] November 19, 2023 12:00 AM Laboratory - Chemi stry Order ENTERIC PATHOGEN PCR PANEL STOOL FECES SP ONCE [facility] December 05, 2023 02:27 PM Laboratory - Chemi stry Order BLOOD GAS PANEL FOR ICU ARTERIAL BLOOD STAT WC [facility] December 12, 2023 03:21 PM Laboratory - Chemi stry Order CALPROTECTIN,STOOL STOOL FECES SP ONCE [facility] Dec 21, 2023 04:56 PM Laboratory - Chemi stry Order SALICYLATE SERUM STAT SP [facility] Lab Results: +/- 30 days of [...] Range Comment Dec 22, 2023 06:44 AM [facility] HEMOGLOBIN A1C Specimen Type: BLOOD Comment: [...] Dec 21, 2023 08:58 PM Reporting Lab: [facility] [id number] Performing Lab: [facility] [phone] HEMOGLOBIN A1C 4.9 4.0-6.0 Dec 22, 2023 06:44 AM [facility] B 12 Specimen Type: SERUM No comment entered. Ordering Provider: Celeste DUKES Report Released Date/Time: Dec 21, 2023 08:58 PM Reporting Lab: [facility] [phone] Performing Lab: [facility] [id number] B 12 381 pg/mL 213-816 Dec 22, 2023 06:44 AM [facility] VIT D 25-[place],TOTAL Specimen Type: SERUM No comment entered. Ordering Provider: Celeste DUKES Report Released Date/Time: Dec 21, 2023 08:58 PM Reporting Lab: [facility] [address] Performing Lab: [facility] [phone] VIT D 25-[place],TOTAL 29 ng/mL 12-50 Dec 22, 2023 06:44 AM [facility] FOLATE Specimen Type: PLASMA No comment entered. Ordering Provider: Celeste DUKES Report Released Date/Time: Dec 21, 2023 08:58 PM Reporting Lab: [facility] [address] Performing Lab: [facility] [address] FOLATE 7.1 ng/mL >7.0 Dec 22, 2023 06:44 AM [facility] TSH W/REFLEX TO FREE T4 Specimen Type: PLASMA No comment entered. Ordering Provider: Celeste DUKES Report Released Date/Time: Dec 21, 2023 08:58 PM Reporting Lab: [facility] [phone] Performing Lab: [facility] [phone] TSH 0.36 u[IU]/mL 0.35-4.94 Dec 22, 2023 06:44 AM [facility] LIPID PANEL,FASTING Specimen Type: PLASMA No comment entered. Ordering Provider: Celeste DUKES Report Released Date/Time: Dec 21, 2023 08:58 PM Reporting Lab: [facility] [phone] Performing Lab: [facility] [address] CHOLESTEROL 170 mg/dL <199 TRIGLYCERIDE 151 mg/dL H <149 .HDL 34 mg/dL L >50 LDL CALCULATION 106 mg/dL H <99 VLDL CALCULATION 30 mg/dL H <29 NON HDL CHOLESTEROL 136 mg/dL H <129 Dec 21, 2023 09:33 PM [facility] DRUG SCREEN PANEL,URINE Specimen Type: URINE Comment: Presumptive Positive by screen, results not confirmed. Ordering Provider: MONIQUE VÁSQUEZ Report Released Date/Time: Dec 21, 2023 04:56 PM Reporting Lab: [facility] [phone] Performing Lab: [facility] [phone] BARBITURATES Negative Negative AMPHETAMINES Negative Negative COCAINE Negative Negative BENZODIAZEPINES Negative Negative CANNABINOIDS POSITIVE H Negative METHADONE Negative Negative OPIATES Negative Negative PHENCYCLIDINE Negative Negative ETHANOL,URINE Negative Negative DRUG SCREEN CREAT 325.9 mg/dL >20.0 OXYCODONE Negative Negative BUPRENORPHINE Negative Negative TRAMADOL Negative Negative FENTANYL Negative Negative Dec 21, 2023 05:30 PM [facility] ETHANOL Specimen Type: PLASMA No comment entered. Ordering Provider: MONIQUE VÁSQUEZ Report Released Date/Time: Dec 21, 2023 04:56 PM Reporting Lab: [facility] [phone] Performing Lab: [facility] [phone] ETHANOL Negative mg/dL NEGATIVE Dec 21, 2023 05:30 PM [facility] COMPREHENSIVE METABOLIC PANEL+MG Specimen Type: PLASMA No comment entered. Ordering Provider: MONIQUE VÁSQUEZ Report Released Date/Time: Dec 21, 2023 04:56 PM Reporting Lab: [facility] [phone] Performing Lab: [facility] [phone] CREATININE 1.0 mg/dL 0.5-1.0 UREA NITROGEN 9 [...] 71 >60 Dec 21, 2023 05:30 PM [facility] CBC & DIFF Specimen Type: BLOOD Comment: Automated Differential Performed Ordering Provider: MONIQUE VÁSQUEZ Report Released Date/Time: Dec 21, 2023 04:56 PM Reporting Lab: [facility] [phone] Performing Lab: [facility] [phone] WBC 9.50 10*3/uL 4.0-11.0 RBC 4.69 10*6/uL [...] 10*3/uL 0-0.5 ABS BASO 0.07 10*3/uL 0-0.2 IG(META,MYELO,LA O) 0.3 ABS IMMATURE GRAN 0.03 10*3/uL 0-0.1 December 05, 2023 02:20 PM [facility] EXTRA RED TUBE Specimen Type: SERUM No comment entered. Ordering Provider: NELSON RONQUILLO Report Released Date/Time: December 05, 2023 02:39 PM Reporting Lab: [facility] [phone] Performing Lab: [facility] [phone] EXTRA RED TUBE RECEIVED December 05, 2023 02:20 PM [facility] LACTIC ACID Specimen Type: PLASMA No comment entered. Ordering Provider: NELSON RONQUILLO Report Released Date/Time: December 05, 2023 02:27 PM Reporting Lab: [facility] [phone] Performing Lab: [facility] [address] LACTIC ACID 1.7 mmol/L 0.5-2.2 December 05, 2023 02:20 PM [facility] CODE BLUE(LYTE,CR,UN,GL,MG,CA,PHOS,TROP) Specimen Type: PLASMA No comment entered. Ordering Provider: NELSON RONQUILLO Report Released Date/Time: December 05, 2023 02:27 PM Reporting Lab: [facility] [phone] Performing Lab: [facility] [phone] CREATININE 1.1 mg/dL H 0.5-1.0 UREA NITROGEN 10 mg/dL 7-20 GLUCOSE 101 mg/dL H 70-100 SODIUM 138 mmol/L 136-145 POTASSIUM 3.8 mmol/L 3.5-5.1 CHLORIDE 107 mmol/L 98-107 CO2 22 mmol/L 22-29 CALCIUM 9.3 mg/dL 8.4-10.2 PHOSPHORUS 3.5 mg/dL 2.3-4.7 MAGNESIUM 1.9 mg/dL 1.6-2.6 ANION GAP 9 mmol/L 5-15 .CREAT EGFR(CKD-EPI) 64 >60 TROPONIN I, HS <3 <14 December 05, 2023 02:20 PM [facility] EXTRA GOLD GEL TUBE Specimen Type: SERUM No comment entered. Ordering Provider: NELSON RONQUILLO Report Released Date/Time: December 05, 2023 02:39 PM Reporting Lab: [facility] [address] Performing Lab: [facility] [address] EXTRA GOLD GEL TUBE RECEIVED December 05, 2023 02:20 PM [facility] CBC Specimen Type: BLOOD No comment entered. Ordering Provider: NELSON RONQUILLO Report Released Date/Time: December 05, 2023 02:27 PM Reporting Lab: [facility] [phone] Performing Lab: [facility] [address] WBC 11.50 10*3/uL H 4.0-11.0 RBC 4.83 10*6/uL 4.0-5.4 HGB 13.6 g/dL 11.5-16 HCT 39.8 34.5-48 MCV 82.4 fL 80-100 MCH 28.2 pg 27-33 MCHC 34.2 g/dL 32.0-37.5 PLT 443 10*3/uL H 150-400 MPV 9.1 fL 7.4-10.4 RDW 12.5 11.5-14.5 December 05, 2023 02:20 PM [facility] PROTHROMBIN TIME/INR Specimen Type: PLASMA No comment entered. Ordering Provider: NELSON RONQUILLO Report Released Date/Time: December 05, 2023 02:27 PM Reporting Lab: [facility] [phone] Performing Lab: [facility] [address] .INR 1.2 H 0.8-1.1 .PT 13.5 s H 9.4-12.5 December 05, 2023 02:18 PM [facility] POC ABG/ELECTROLYTES Specimen Type: VENOUS BLOOD Comment: FIO2 = 40% Patient Temp: 36.6 C Sample Type = VENOUS Ordering Provider: ULYSSES ELDER Report Released Date/Time: December 06, 2023 08:24 PM Reporting Lab: [facility] [phone] Performing Lab: [facility] [address] POC PH 7.382 7.31-7.41 POC PCO2 35.0 [...] Height Weight Body Mass Index Source Dec 26, 2023 10:48 PM 1 [facility] Dec 26, 2023 08:39 PM 3 [facility] Dec 26, 2023 06:33 AM 98.6 81 115/78 1 [facility] Advance Directives: All historical and [...] 05, 2024 ADVANCE DIRECTIVE DISCUSSION SHAHID WAGNER [facility] Encounter Notes: All associated encounter notes This section contains the clinical notes associated to the Encounter. Date/Time Encounter Note(s) Provider Source Dec 26, 2023 10:14 AM PSYCHIATRY E & M N OTE: LOCAL TITLE: PSYCHIATRIC EVALUATION & MANAGEMENT STANDARD TITLE: PSYCHIATRY E & M NOTE DATE OF NOTE: DEC 26, 2023@10:14 ENTRY DATE: DEC 26, 2023@10:15:06 AUTHOR: NELSON MENA COSIGNER: URGENCY: STATUS: COMPLETED PSYCHIATRIC EVALUATION & MANAGEMENT Has ADDENDA PSYCHIATRIC EVALUATION AND MANAGEMENT FOLLOW UP VISIT Duration: 30 minutes Time spent performing psychotherapy services: 16-30 minutes INTERVAL HISTORY: Nursing notes reviewed. No acute safety or behavioral concerns overnight. Patient was seen and evaluated this morning as she was having increased anxiety about discharging home today. She spoke with this typewriter mechanic about having increased SI when thinking about returning home, especially given that her ex- and children would not be home this weekend due to work committments. She noted her ex- has firearms in the house and they are not locked or secured, and that these firearms are part of her SI. She expressed many times that she would feel better about discharging friday when her ex- will be home and she will not be alone. When prompted about speaking with ex- to secure firearms, she said she would call him and discuss this topic. She endorsed limited sleep overnight due to persistent anxious thoughts and SI in the context of her planned discharge today. She continues to endorse PRN Seroquel working well for her anxiety. Patient discussed her singing hobbies with the typewriter mechanic this morning, and noted she enjoyed singing in musical group yesterday. MEDICATION COMPLIANCE: compliant SIDE EFFECTS: drowsiness, anxiety, [...] PO Q6H PRN ACTIVE 9) QUETIAPINE TAB 25MG PO TID PRN for anxiety ACTIVE 10) QUETIAPINE TAB 300MG PO QHS ACTIVE 11) TRAZODONE TAB 50MG PO QHS PRN Instructions too long. ACTIVE See order details for full text. MOST RECENT VITALS: BLOOD PRESSURE: High: 117/80 (DEC 25, 2023@16:29:18) Low: 115/77 (DEC 25, 2023@06:18) PAIN: High: 2 (DEC 25, 2023@06:18) Low: 0 (DEC 25, 2023@16:29:18) PULSE: High: 96 (DEC 25, 2023@06:18) Low: 81 (DEC 26, 2023@06:33) RESPIRATION: High: 18 (DEC 25, 2023@16:29:18) Low: 18 (DEC 25, 2023@16:29:18) TEMPERATURE: High: 98.9 (DEC 25, 2023@16:29:18) Low: 98.1 (DEC 25, 2023@06:18) WEIGHT: High: 206.0 (DEC 25, 2023@06:18) Low: 206.0 (DEC 25, 2023@06:18) MENTAL STATUS EXAM: General: Cooperative, ongoing anxiety, rocking back and forth while sitting on the bed Eye Contact: downcast during anxious period, improved to good when speaking with team later on Psychomotor Activity: WNL (Within normal limits) Abnormal Involuntary Movements: None Speech: Regular rate and rhythm, normal volume Mood: really anxious Affect: Dysphoric Thought Process: Linear, logical, goal oriented Thought Content: Some SI this morning associated with discharging home, no HI (Homicidal Ideation) Perceptual disturbances: No AH(Auditory Hallucinations),VH(Visual Hallucinations), [...] recurrent, severe ASSESSMENT & PLAN: 43-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 Today's Changes: - Addressed changes in discharge plan, joint decision to discharge early friday (12/28) morning in advance of her PPH meeting if she is feeling ready at that time - Discussed more agressive approach to treatment for ongoing breakthrough anxiety primarily in the evening, and jointly decided on increasing Seroquel to BID with a QAM dose of 100 mg. - Addressed possibility of bipolar disorder diagnosis and provided VEDA screening. Patient noted her mother showed signs of suhas during her childhood though she was never formally diagnosed with BPD. Medications: increase quetiapine to 100 mg po QAM beginning 12/26 with a 50 mg po AM dose today (12/25) in addition to continued quetiapine 300mg po QHS, continue duloxetine 60mg po qhs, trazodone 50mg po [...] the patient who acknowledges agreement and understanding. ADAN Delacruz /lilia/ NELSON MENA Staff Psychiatrist Signed: 12/26/2023 11:40 12/26/2023 ADDENDUM STATUS: COMPLETED Patient was seen with medical student today. Case discussed and supervision conducted. I agree with the assessment and plan documented in the attached students note from today. Also's, specifically we are going to postpone discharge until Friday. Will discharge Friday morning and then drive home to be at her rescheduled 1130 virtual PPH intake with Ms. Wagner. /lilia/ NELSON MENA Staff Psychiatrist Signed: 12/26/2023 11:41 NELSON MENA [facility]
--- OUTSIDE RECORDS SUMMARY | 2024-05-04 07:53 | XMS_ITS | Encounter Summary ---
Author Name [place] Address [address] [place] [address] Care Team Providers Care Vice President Digital Strategist Name Role Phone EMIR GRACIA Primary Care Provider Unavailabl e Selected Encounter This section includes the information on record at [place] for the Encounter. Date/Time Encounter Type Encounter Description Reason Provider Source Jan 15, 2024 11:00 AM 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/JOSEPH [facility] ICD-10-CM F32.9 Major depressive disorder, single episode, unspecified CLEOPATRA HURTADO Lorie Encounter Template Text not used by [place] Assessments - Encounter Diagnoses This section includes the primary and secondary diagnoses documented for the Encounter. Date/Time Primary/Secondary Diagnosis Diagnosis Name Provider Source Jan 15, 2024 02:44 PM PRIMARY Major depressive disorder, single episode, unspecified CLEOPATRA HURTADO [facility] Jan 15, 2024 02:44 PM SECONDARY Post-traumatic stress disorder, chronic CLEOPATRA HURTADO [facility] Plan of Treatment: Future [...] 20 appointments. The data comes from all [facility]. Appointment Date/Time Appointment Type Appointme nt Facility Name Jan 16, 2024 08:45 AM [facility] Jan 16, 2024 10:00 AM [place] [facility] Jan 16, 2024 11:00 AM [place] [facility] Jan 19, 2024 08:45 AM [place] [facility] Jan 19, 2024 10:00 AM [place] [facility] Jan 19, 2024 11:00 AM [place] [facility] Jan 19, 2024 12:00 PM [place] [facility] Jan 20, 2024 08:45 AM [facility] Jan 20, 2024 10:00 AM [place] [facility] Jan 20, 2024 11:00 AM [facility] Jan 21, 2024 08:45 AM [facility] Jan 21, 2024 10:00 AM [place] [facility] Jan 21, 2024 11:00 AM [facility] Jan 23, 2024 08:45 AM [facility] Jan 23, 2024 10:00 AM [facility] Jan 23, 2024 11:00 AM AM[facility]ULAT[facility]ATRY [facility] Jan 23, 2024 12:00 PM [facility] Jan 24, 2024 08:15 AM [facility] Jan 29, 2024 11:00 AM [facility] [place] [facility] [facility] Jan 29, 2024 03:00 PM AMBULAT[facility] Active, Pending, and Scheduled Orders This section includes a listing of several types of active, pending, and scheduled orders, including clinic medications orders, diagnostic test orders, procedure orders and consult orders; where the start date of the order is 45 days before the date of the Encounter or 45 days after the date of theEncounter. The data comes from all [facility]. Test Date/Time Test Type Test Details Facility Name December 05, 2023 02:27 PM Laboratory - Chemi stry Order BLOOD GAS PANEL FOR ICU ARTERIAL BLOOD STAT WC [facility] December 12, 2023 03:21 PM Laboratory - Chemi stry Order CALPROTECTIN,STOOL STOOL FECES SP ONCE [facility] Dec 21, 2023 04:56 PM Laboratory - Chemi stry Order SALICYLATE SERUM STAT SP [facility] Lab Results: +/- 30 [...] Range Comment Dec 22, 2023 06:44 AM [facility] HEMOGLOBIN A1C Specimen Type: [...] Dec 21, 2023 08:58 PM Reporting Lab: [facility] [id number] Performing Lab: [facility] [id number] HEMOGLOBIN A1C 4.9 4.0-6.0 Dec 22, 2023 06:44 AM [facility] B 12 Specimen Type: SERUM No comment entered. Ordering Provider: Celeste DUKES Report Released Date/Time: Dec 21, 2023 08:58 PM Reporting Lab: [facility] [phone] Performing Lab: [facility] [phone] B 12 381 pg/mL 213-816 Dec 22, 2023 06:44 AM [facility] VIT D 25-OH,TOTAL Specimen Type: SERUM No comment entered. Ordering Provider: Celeste DUKES Report Released Date/Time: Dec 21, 2023 08:58 PM Reporting Lab: [facility] [phone] Performing Lab: [facility] [address] VIT D 25-OH,TOTAL 29 ng/mL 12-50 Dec 22, 2023 06:44 AM [facility] FOLATE Specimen Type: PLASMA No comment entered. Ordering Provider: Celeste DUKES Report Released Date/Time: Dec 21, 2023 08:58 PM Reporting Lab: [facility] [phone] Performing Lab: [facility] [phone] FOLATE 7.1 ng/mL >7.0 Dec 22, 2023 06:44 AM [facility] TSH W/REFLEX TO FREE T4 Specimen Type: PLASMA No comment entered. Ordering Provider: Celeste DUKES Report Released Date/Time: Dec 21, 2023 08:58 PM Reporting Lab: [facility] [id number] Performing Lab: [facility] [phone] TSH 0.36 u[IU]/mL 0.35-4.94 Dec 22, 2023 06:44 AM [facility] LIPID PANEL,FASTING Specimen Type: PLASMA No comment entered. Ordering Provider: Celeste DUKES Report Released Date/Time: Dec 21, 2023 08:58 PM Reporting Lab: [facility] [phone] Performing Lab: [facility] [phone] CHOLESTEROL 170 mg/dL <199 TRIGLYCERIDE 151 mg/dL H <149 .HDL 34 mg/dL L >50 LDL CALCULATION 106 mg/dL H <99 VLDL CALCULATION 30 mg/dL H <29 NON HDL CHOLESTEROL 136 mg/dL H <129 Dec 21, 2023 09:33 PM [facility] DRUG SCREEN PANEL,URINE Specimen Type: URINE Comment: Presumptive Positive by screen, results not confirmed. Ordering Provider: MONIQUE VÁSQUEZ Report Released Date/Time: Dec 21, 2023 04:56 PM Reporting Lab: [facility] [phone] Performing Lab: [facility] [phone] BARBITURATES Negative Negative AMPHETAMINES Negative Negative COCAINE Negative Negative BENZODIAZEPINES Negative Negative CANNABINOIDS POSITIVE H Negative METHADONE Negative Negative OPIATES Negative Negative PHENCYCLIDINE Negative Negative ETHANOL,URINE Negative Negative DRUG SCREEN CREAT 325.9 mg/dL >20.0 OXYCODONE Negative Negative BUPRENORPHINE Negative Negative TRAMADOL Negative Negative FENTANYL Negative Negative Dec 21, 2023 05:30 PM [facility] ETHANOL Specimen Type: PLASMA No comment entered. Ordering Provider: MONIQUE VÁSQUEZ Report Released Date/Time: Dec 21, 2023 04:56 PM Reporting Lab: [facility] [phone] Performing Lab: [facility] [phone] ETHANOL Negative mg/dL NEGATIVE Dec 21, 2023 05:30 PM [facility] COMPREHENSIVE METABOLIC PANEL+MG Specimen Type: PLASMA No comment entered. Ordering Provider: MONIQUE VÁSQUEZ Report Released Date/Time: Dec 21, 2023 04:56 PM Reporting Lab: [facility] [phone] Performing Lab: [facility] [phone] CREATININE 1.0 mg/dL 0.5-1.0 UREA NITROGEN 9 [...] 71 >60 Dec 21, 2023 05:30 PM [facility] CBC & DIFF Specimen Type: BLOOD Comment: Automated Differential Performed Ordering Provider: MONIQUE VÁSQUEZ Report Released Date/Time: Dec 21, 2023 04:56 PM Reporting Lab: [facility] [phone] Performing Lab: [facility] [phone] WBC 9.50 10*3/uL 4.0-11.0 RBC 4.69 10*6/uL [...] Facil ity Jan 05, 2024 12:00 PM [place]-TO[place]AC[place] QUIT 5 TO < 15 YRS [facility] Tobacco Use History This section includes a history of the smoking, or tobacco-related health factors, that were collected on or before the date of the Encounter. The data comes from the [place] facility where the Encounter took place. Date/Time Smoking Status/Tobacco Use Comment F acility Jan 05, 2024 12:00 PM [place]-TOBAC[place] QUIT 5 TO < 15 YRS [facility] Advance Directives: All historical [...] 05, 2024 ADVANCE DIRECTIVE DISCUSSION SHAHID HURTADO [facility] Encounter Notes: All associated encounter notes This section contains the clinical notes associated to the Encounter. Date/Time Encounter Note(s) Provider Source Jan 15, 2024 11:00 AM MENTAL HEALTH GROU P COUNSELING NOTE: LOCAL TITLE: MH GROUP NOTE STANDARD TITLE: MENTAL HEALTH GROUP COUNSELING NOTE DATE OF NOTE: JAN 15, 2024@11:00 ENTRY DATE: JAN 15, 2024@14:23:41 AUTHOR: GEORGINA HURTADO EXP COSIGNER: URGENCY: STATUS: COMPLETED MH GROUP NOTE Has ADDENDA PPH GROUP TOPIC: Mind-Body Connection: Body-based Practice DEPUTY SHERIFF/INVESTIGATOR/S: MERNA Wesley, FRANCESCA DATE OF GROUP: 01/15/2024 TIME OF GROUP: 1100 LENGTH OF GROUP: 50 minutes NUMBER IN ATTENDANCE: 4 MODALITY: Group Psychotherapy MEDIUM: Demonstration/activity and discussion OBJECTIVES: 1) Veterans will participate in activities based on mind-body principles to stimulate health and feelings of well-being: Guided Imagery and Mindful Sitting 2) Veterans will be able to verbalize the value of incorporating body-based mindfulness practices to reduce mental health distress. PATIENT EDUCATION: Readiness to learn: Attended session. Appeared to listen attentively. Participated in skill practice. Patient Understanding: Demonstrated application of content through discussion. PLAN: Will continue to attend [facility] to work toward goals. Informed consent for treatment and limits of confidentiality, as well as limits and benefits of treatment, were reviewed with patient in first session and they indicated understanding and agreement in the first session. For additional information about goals and plan for treatment while in [facility], please refer to veterans individualized treatment plan upon entry to [facility]. [facility] is continuing with [facility] programming at this time. Also refer to suicide risk assessment completed upon entrance into [facility] program for comprehensive description of acute and chronic risk level. No change in risk at this time. ATTENDED: full session DIAGNOSIS: MDD, rec; PTSD r/t MST /lilia/ FRANCESCA DEMPSEY CLINICAL CHAIN TESTING MACHINE OPERATOR Signed: 01/15/2024 14:51 01/15/2024 ADDENDUM STATUS: COMPLETED Care provided: Follow up care covered under the COMPACT Act of 2019 Section 201. Supporting clinical documentation: Please see PPH consult and intake and notes related to today's encounters /lilia/ FRANCESCA DEMPSEY CLINICAL CHAIN TESTING MACHINE OPERATOR Signed: 01/20/2024 10:24 GEORGINA HURTADO [facility]
--- OUTSIDE RECORDS SUMMARY | 2024-05-04 07:53 | XMS_ITS | Encounter Summary ---
Author Name [facility] [place] Address [address] [place] [address] Care Team Providers Care Medieval English Literature Professor Name Role Phone EMIR GRACIA Primary Care Provider Unavailabl e Selected Encounter This section includes the information on record at [place] for the Encounter. Date/Time Encounter Type Encounter Description Reason Pro vider Source Apr 21, 2024 10:37 AM Outpatient Encounter COMMUNITY CARE CONSULT IHE Encounter Template Text not used by [place] [...] Appointment Type Appointme nt Facility Name Apr 26, 2024 09:30 AM AMBULATORY - PS[place]CHIATRY [place] [facility] Apr 27, 2024 01:00 PM AMBULATORY - PSYCHIATRY [facility] Apr 28, 2024 01:00 PM AMBULATORY - [facility]IATRY [place] [facility] May 05, 2024 05:00 PM AMBULATORY - NONE [facility] May 11, 2024 09:00 AM AMBULATORY - PS[place]CHIATRY [place] [facility] May 11, 2024 01:00 PM AMBULATORY - PSYCHIATRY TW IN [facility] May 18, 2024 11:00 AM AMBULATORY - PSYCHIATRY TW IN [facility] May 18, 2024 01:00 PM [facility] May 24, 2024 08:30 AM [facility] Active, Pending, and Scheduled Orders This section [...] Date/Time Test Type Test Details Facility Name Apr 19, 2024 09:46 AM Consult Order CARDIAC EC HO OUTPT-ALL SITES Cons Web Page Designer's Choice [facility] Apr 19, 2024 10:08 AM Consult Order CARDIAC EC HO-SPECIAL PROCEDURE Cons Web Page Designer's Choice [facility] Apr 19, 2024 10:47 AM Consult Order COMMUNITY CARE-NUCLEAR MEDICINE Cons Web Page Designer's Choice [facility] Lab Results: +/- 30 days of the [...] Result - Unit Interpretation Reference Range Comment Apr 19, 2024 10:21 AM [facility] HEMOGLOBIN A1C Specimen Type: BLOOD Comment: Values obtained from A1C measurements can vary. For typical A1C assays, a reported value of 7.0 could actually be between 6.7 and 7.3 if measured by a reference method. A reported value of 9.0 could actually be between 8.7 and 9.3. Ref: http://www.ngsp .org/CAPdata.as p Ordering Provider: EMIR GRACIA Report Released Date/Time: Apr 19, 2024 09:46 AM Reporting Lab: [facility] [phone] Performing Lab: [facility] [address] HEMOGLOBIN A1C 4.9 4.0-6.0 Apr 19, 2024 10:21 AM [facility] TSH W/REFLEX TO FREE T4 Specimen Type: PLASMA Comment: Elevated triglyceride result from a non-fasting specimen should be interpreted with caution. A fasting panel is recommended for accurate triglycerides when trigs are >200 from a non-fasting specimen. Ordering Provider: EMIR GRACIA Report Released Date/Time: Apr 19, 2024 09:46 AM Reporting Lab: [facility] [phone] Performing Lab: [facility] [phone] TSH 0.69 u[IU]/mL 0.35-4.94 Apr 19, 2024 10:21 AM [facility] LIPID PANEL,NON-FASTING Specimen Type: PLASMA Comment: Elevated triglyceride result from a non-fasting specimen should be interpreted with caution. A fasting panel is recommended for accurate triglycerides when trigs are >200 from a non-fasting specimen. Ordering Provider: EMIR GRACIA Report Released Date/Time: Apr 19, 2024 09:46 AM Reporting Lab: [facility] [phone] Performing Lab: [facility] [address] CHOLESTEROL 263 mg/dL H <199 .HDL 38 mg/dL L >50 LDL CALCULATION 151 mg/dL H <99 VLDL CALCULATION 74 mg/dL H <29 NON HDL CHOLESTEROL 225 mg/dL H <129 TRIG(NON FASTING) 368 mg/dL H <149 Apr 19, 2024 10:21 AM [facility] ANTI-HEP C(EIA) Specimen Type: SERUM No comment entered. Ordering Provider: EMIR GRACIA Report Released Date/Time: Apr 19, 2024 10:00 AM Reporting Lab: [facility] [id number] Performing Lab: [facility] [phone] ANTI-HEP C(EIA) NEGATIVE NEGATIVE Apr 19, 2024 10:21 AM [facility] COMPREHENSIVE METABOLIC PANEL+MG Specimen Type: PLASMA Comment: Elevated triglyceride result from a non-fasting specimen should be interpreted with caution. A fasting panel is recommended for accurate triglycerides when trigs are >200 from a non-fasting specimen. Ordering Provider: EMIR GRACIA Report Released Date/Time: Apr 19, 2024 09:46 AM Reporting Lab: [facility] [phone] Performing Lab: [facility] [address] CREATININE 1.0 mg/dL 0.5-1.0 UREA NITROGEN 10 mg/dL 7-20 GLUCOSE 98 mg/dL 70-100 SODIUM 136 mmol/L 136-145 POTASSIUM 3.9 mmol/L 3.5-5.1 CHLORIDE 108 mmol/L H 98-107 CO2 20 mmol/L L 22-29 CALCIUM 9.3 mg/dL 8.4-10.2 PROTEIN,TOTAL 7.2 g/dL 6.4-8.3 ALBUMIN 4.4 g/dL 3.5-5.2 BILIRUBIN, TOTAL 0.7 mg/dL 0.2-1.2 MAGNESIUM 1.9 mg/dL 1.6-2.6 ANION GAP 8 mmol/L 5-15 ALKALINE PHOSPHATASE 55 U/L 40-150 ALT/SGPT 22 U/L <33 AST/SGOT 22 U/L 11-34 .CREAT EGFR(CKD-EPI) 71 >60 Apr 19, 2024 10:21 AM [facility] CBC Specimen Type: BLOOD No comment entered. Ordering Provider: EMIR GRACIA Report Released Date/Time: Apr 19, 2024 09:46 AM Reporting Lab: [facility] [id number] Performing Lab: [facility] [address] WBC 5.5 4.0-11.0 RBC 4.74 4.00-5.40 HGB 13.4 g/dL 11.5-16 HCT 39.7 34.5-48 MCV 83.8 fL 80-100 MCH 28.3 pg 27-33 MCHC 33.8 g/dL 32.0-37.5 PLT 370 150-400 MPV 9.8 fL 9.1-13.0 RDW 12.0 11.5-14.5 Social History: Smoking Status (Most current) and [...] 05, 2024 12:00 PM [place]-TOB[place] FORMER USER [facility] Tobacco Use History This section includes a history of the smoking, or tobacco-related health factors, that were collected on or before the date of the Encounter. The data comes from the [place] facility where the Encounter took place. Date/Time Smoking Status/Tobacco Use Comment F acility Jan 05, 2024 12:00 PM [place]-TOBACCO QUIT 5 TO < 15 YRS [facility] Advance [...] ADVANCE DIRECTIVE DISCUSSION SHAHID HURTADO [facility] Radiology Reports: +/- 30 days of [...] the Encounter. The data comes from all [place] treatment facilities. Date/Time Radiology Report Provider Source Apr 19, 2024 09:48 AM CHEST 2 VIEWS PA A ND LAT: BILLIE ZAVALA [id number] [phone] F Exm Date: APR 19, 2024@09:48 Req Phys: EMIR GRACIA Loc: [facility] PACT DIAMONDS (Req'g Loc) Img Loc: [facility] RADIOLOGY Service: Unknown Screen: [place] [address] (Case [id number] COMPLETE) CHEST 2 VIEWS PA AND LAT (RAD Detailed) CPT:87624 Reason for Study: chest pain Clinical History: IS NOT under investigation for COVID-19 or is COVID-19 negative chest pain Responsible provider name and phone number to notify for critical findings if other than user placing the order and pager listed below: User placing orders pager: LAST CREATININE 1.0 (12/21/23) Report Status: Verified Date Reported: APR 19, 2024 Date Verified: APR 19, 2024 [employer] E-Sig:/ES/PIA VARGAS MD, FACR, CCD Report: EXAMINATION: CHEST 2 VIEWS PA AND LAT 04/19/2024 9:48 AM INDICATION: chest pain COMPARISON: None. FINDINGS: The cardiac silhouette and pulmonary vasculature are within normal limits. The lungs appear clear of infiltrate. No pleural fluid identified. Impression: No active pulmonary disease visualized. Primary Interpreting Staff: PIA VARGAS MD, FACR, STAFF RADIOLOGIST ([employer]) /PIA OLGUIN [facility] Encounter Notes: All associated encounter notes This section contains the clinical notes associated to the Encounter. Date/Time Encounter Note(s) Provider Source Apr 21, 2024 10:37 AM NONVA NOTE: LOCAL TITLE: COMMUNITY CARE PRE-AUTH LETTER (AUTOPRINT) STANDARD TITLE: NONVA NOTE DATE OF NOTE: APR 21, 2024@10:37 ENTRY DATE: APR 21, 2024@10:38:03 AUTHOR: COTY LI COSIGNER: URGENCY: STATUS: COMPLETED Apr QUINTIN ZAVALA [address] [place] [address] Dear QUINTIN ZAVALA, Your VA provider has referred you to a provider within the community for care. Your medical care for NUCLEAR MEDICINE has been authorized with the community care provider listed below. DO NOT REPORT TO THE [facility] Provider info: Care has been approved for the following vendor: Office name, address, and phone number: [address] [address] PH:[phone] Please contact the identified provider to schedule your community appointment. If you need assistance with this appointment, please call your facility community care office [facility] Office of Community Care at [phone] during the hours of 8:30AM - 3:00PM. Please follow up with your local [facility] community care office once this is scheduled. This step is needed to ensure your referral duration is maximized and the [place] has accurate referral information for billing purposes. Authorization Number: [id number] Referral Issue Date: Apr Expiration Date: May (subject to change based on first appointment) If you are unable to schedule this appointment or the appointment is no longer needed, please contact the community provider above for notification/rescheduling and then call the [facility] Office of Community Care at [phone] during the hours of 8:30AM - 3:00PM. If you need additional care/services not mentioned above or your authorization has and additional care is needed, please contact your primary care provider for a new referral. To review all care/service(s) approved under your referral, please go to the following link: [employer] [place] [facility](My Ad Box ) Co-Payments: If you are required to pay a VA co-payment, you will be billed by the VA for each authorized visit that you attend. However, you are NOT REQUIRED to make co-payments to a community provider. Thank you for the opportunity to serve you. Sincerely, [place] Community Care ([place]) /lilia/ COTY LI Signed: 04/21/2024 10:39 COTY LI [facility]
--- OUTSIDE RECORDS SUMMARY | 2024-05-04 07:53 | XMS_ITS | Encounter Summary ---
Author Name [facility] [place] [facility] [place] Organization [facility] [place] [facility] [place] Address [address] [place] [address] Care Team Providers Care Aerospace Quality Engineer Name Role Phone EMIR GRACIA Primary Care Provider Unavailabl e Selected Encounter This section includes the information on record at [place] for the Encounter. Date/Time Encounter Type Encounter Description Reason Provider Source Jan 16, 2024 08:45 AM GROUP PSYCHOTHERAPY [facility] ICD-10-CM F33.9 Major depressive disorder, recurrent, unspecified [facility]INITY DORMAN [facility] Encounter Template Text not used by [place] Assessments - Encounter Diagnoses This section includes the primary and secondary diagnoses documented for the Encounter. Date/Time Primary/Secondary Diagnosis Diagnosis Name Provider Source Jan 16, 2024 04:11 PM PRIMARY Major depressive disorder, recurrent, unspecified JAYLAN DORMAN [facility] Jan 16, 2024 04:11 PM SECONDARY Post-traumatic stress disorder, chronic JAYLAN DORMAN [facility] Plan of Treatment: Future [...] 20 appointments. The data comes from all [facility]. Appointment Date/Time Appointment Type Appointme nt Facility Name Jan 19, 2024 08:45 AM AMBULATORY - PS[facility]RY [facility] Jan 19, 2024 10:00 AM AMBULATORY - PSYCHIATRY [facility] Jan 19, 2024 11:00 AM AMBULATORY - PSYCHIATRY [facility] Jan 19, 2024 12:00 PM AMBULATORY - PSYCHIATRY [facility] Jan 20, 2024 08:45 AM AMBULATORY - PSYCHIATRY [facility] Jan 20, 2024 10:00 AM AMBULATORY - PSYCHIATRY [facility] Jan 20, 2024 11:00 AM AMBULATORY - PSYCHIATRY [facility] Jan 21, 2024 08:45 AM AMBULATORY - PSYCHIATRY [facility] Jan 21, 2024 10:00 AM AMBULATORY - PSYCHIATRY [facility] Jan 21, 2024 11:00 AM AMBULATORY - PSYCHIATRY [facility] Jan 23, 2024 08:45 AM AMBULATORY - PSYCHIATRY [facility] Jan 23, 2024 10:00 AM AMBULATORY - PSYCHIATRY [facility] Jan 23, 2024 11:00 AM AMBULATORY - PSYCHIATRY [facility] Jan 23, 2024 12:00 PM AMBULATORY - PSYCHIATRY [facility] Jan 24, 2024 08:15 AM AMBULATORY - SURGERY [facility] Jan 29, 2024 11:00 AM AMBULATORY - PS[facility]CHIATRY [facility] Jan 29, 2024 03:00 PM AMBULATORY [facility]RY [facility] Feb 04, 2024 11:00 AM AMBULATORY - PS[facility]ATRY [facility] Feb 11, 2024 11:00 AM AMBULATORY - PS[facility]IATRY [facility] Feb 18, 2024 11:00 AM AMBULATORY - PS[facility]CHIATRY [facility] Active, Pending, and Scheduled Orders This section includes a listing of several types of active, pending, and scheduled orders, including clinic medications orders, diagnostic test orders, procedure orders and consult orders; where the start date of the order is 45 days before the date of the Encounter or 45 days after the date of theEncounter. The data comes from all [facility]. Test Date/Time Test Type Test Details [...] Dec 21, 2023 08:58 PM Reporting Lab: [facility] [id number] Performing Lab: [facility] [address] HEMOGLOBIN A1C 4.9 4.0-6.0 Dec 22, 2023 06:44 AM [facility] B 12 Specimen Type: SERUM No comment entered. Ordering Provider: Celeste DUKES Report Released Date/Time: Dec 21, 2023 08:58 PM Reporting Lab: [facility] [id number] Performing Lab: [facility] [address] B 12 381 pg/mL 213-816 Dec 22, 2023 06:44 AM [facility] VIT D 25-OH,TOTAL Specimen Type: SERUM No comment entered. Ordering Provider: Celeste DUKES Report Released Date/Time: Dec 21, 2023 08:58 PM Reporting Lab: [facility] [address] Performing Lab: [facility] [address] VIT D 25-OH,TOTAL 29 ng/mL 12-50 Dec 22, 2023 06:44 AM [facility] FOLATE Specimen Type: PLASMA No comment entered. Ordering Provider: Celeste DUKES Report Released Date/Time: Dec 21, 2023 08:58 PM Reporting Lab: [facility] [phone] Performing Lab: [facility] [address] FOLATE 7.1 ng/mL >7.0 Dec 22, 2023 06:44 AM [facility] TSH W/REFLEX TO FREE T4 Specimen Type: PLASMA No comment entered. Ordering Provider: Celeste DUKES Report Released Date/Time: Dec 21, 2023 08:58 PM Reporting Lab: [facility] [address] Performing Lab: [facility] [address] TSH 0.36 u[IU]/mL 0.35-4.94 Dec 22, 2023 06:44 AM [facility] LIPID PANEL,FASTING Specimen Type: PLASMA No comment entered. Ordering Provider: Celeste DUKES Report Released Date/Time: Dec 21, 2023 08:58 PM Reporting Lab: [facility] [phone] Performing Lab: [facility] [address] CHOLESTEROL 170 mg/dL <199 TRIGLYCERIDE 151 mg/dL [...] Dec 21, 2023 04:56 PM Reporting Lab: [facility] [phone] Performing Lab: [facility] [phone] BARBITURATES Negative Negative AMPHETAMINES Negative Negative COCAINE [...] Dec 21, 2023 04:56 PM Reporting Lab: [facility] [address] Performing Lab: [facility] [address] ETHANOL Negative mg/dL NEGATIVE Dec 21, 2023 05:30 PM [facility] COMPREHENSIVE METABOLIC PANEL+MG Specimen Type: PLASMA No comment entered. Ordering Provider: MONIQUE VÁSQUEZ Report Released Date/Time: Dec 21, 2023 04:56 PM Reporting Lab: [facility] [phone] Performing Lab: [facility] [address] CREATININE 1.0 mg/dL 0.5-1.0 UREA NITROGEN 9 [...] Dec 21, 2023 04:56 PM Reporting Lab: [facility] [address] Performing Lab: [facility] [address] WBC 9.50 10*3/uL 4.0-11.0 RBC 4.69 10*6/uL [...] 10*3/uL 0-0.5 ABS BASO 0.07 10*3/uL 0-0.2 IG(META,MYELO,GA O) 0.3 ABS IMMATURE GRAN 0.03 10*3/uL [...] 05, 2024 12:00 PM VA-TOBACCO FORMER USER [facility] Tobacco Use History This section includes a history of the smoking, or tobacco-related health factors, that were collected on or before the date of the Encounter. The data comes from the [place] facility where the Encounter took place. Date/Time Smoking Status/Tobacco Use Comment F acility Jan 05, 2024 12:00 PM [place]-TOBACCO QUIT 5 TO < 15 YRS [facility] Advance Directives: All historical and current Section Date Range: From patient's date of to the date document was created. This section includes ALL of a patient's completed or amended [place] Advance and Rescinded Directives. The entries below indicate that a directive exists for the patient, but an actual copy is not included with this document. The data comes from all [place] facilities. Date Advance Directives Provider Source Jan 05, 2024 ADVANCE DIRECTIVE DISCUSSION SHAHID HURTADO [facility] Encounter Notes: All associated encounter notes This section contains the clinical notes associated to the Encounter. Date/Time Encounter Note(s) Provider Source Jan 16, 2024 08:45 AM [facility] GROUP COUNSELING NOTE: LOCAL TITLE: MH GROUP NOTE STANDARD TITLE: MENTAL HEALTH GROUP COUNSELING NOTE DATE OF NOTE: JAN 16, 2024@08:45 ENTRY DATE: JAN 16, 2024@15:59:15 AUTHOR: JAYLAN DORMAN COSIGNER: URGENCY: STATUS: COMPLETED COMMAND AND CONTROL: Krishan Dorman, PhD, DATE OF GROUP: 01/16/2024 TIME OF GROUP: 844 LENGTH OF GROUP: 75 minutes NUMBER IN ATTENDANCE: 4 MODALITY: Group Psychotherapy GROUP TOPIC: COGNITIVE BEHAVIORAL THERAPY 11/22 MEDIUM: Group including discussion, handouts identifying the interrelationships among events, thoughts and feelings. OBJECTIVES: 1. Veterans will understand how core beliefs are formed and how this creates the lens through which they see life, which may lead to unknowingly changing an event to match the belief system. 2. Veterans will be introduced to the STOPP (Stop, Take a breath, Observe; Get some Perspective; Practice what works) concept and how it can afford them time to make a choice in response rather than to react. ATTENDED: Group in its entirety The first 15 min of the group consisted of the community meeting with veterans and [facility] staff present. Patient Education: Readiness to learn: Attended session, Appeared to listen attentively, Participated in the discussion Patient Understanding: Appeared to understand the material and concepts presented Visit conducted by synchronous telehealth. verbal consent obtained. Location/emergency number confirmed. Environment surveyed and all participants identified. Virtual conference room locked. Limits of confidentiality and consent for participation in [facility] programming, including this and all [facility] groups, have been reviewed with [facility] in first session and indicated understanding and agreement. For additional information about goals and plan for treatment while in [facility], please refer to veterans individualized treatment plan upon entry to [facility]. [facility] is continuing with [facility] programming at this time. Also refer to suicide risk assessment completed upon entrance into [facility] program for comprehensive description of risk level. No change in risk at this time. Plan: Continue to attend [facility] to work toward goals. DSM-5 DIAGNOSIS: MDD, rec; PTSD r/t MST /es/ Jaylan Dorman, Ph.D. Clinical Psychologist Signed: 01/16/2024 16:11 [facility]
--- OUTSIDE RECORDS SUMMARY | 2024-05-04 07:53 | XMS_ITS | Encounter Summary ---
Author Name [facility] [place] [facility] [place] Organization [facility] [place] Address [address] [place] [address] Care Team Providers Care Clinical Informatics Educator Name Role Phone EMIR GRACIA Primary Care Provider Unavailabl e Selected Encounter This section includes the information on record at [place] for the Encounter. Date/Time Encounter Type Encounter Description Reason Pro vider Source Apr 21, 2024 10:34 AM Outpatient Encounter ADMIN PAT ACTIVTIES (VLADNONCT) IHE Encounter Template Text not used by [place] Plan of Treatment: Future Appointments (+ 6 [...] 26, 2024 09:30 AM AMBULATORY - [facility]IATRY [facility] Apr 27, 2024 01:00 PM AMBULATORY - PSYCHIATRY [facility] IN [facility] Apr 28, 2024 01:00 PM AMBULATORY - PSYCHIATRY [facility] May 05, 2024 05:00 PM AM[facility]UL[facility]ORY - NONE [place] [facility] May 11, 2024 09:00 AM AMBULATORY - PSYCHIATRY [facility] May 11, 2024 01:00 PM AMBULATORY - PSYCHIATRY TW IN [facility] May 18, 2024 11:00 AM AMBULATORY - PSYCHIATRY [facility] May 18, 2024 01:00 PM AMBULATORY - [place]ICINE [place] [facility] May 24, 2024 08:30 AM AM[facility]ORY [facility]ATRY [facility] Active, Pending, and Scheduled Orders This section [...] Order CARDIAC EC HO OUTPT-ALL SITES Cons [facility] [place] [facility] Apr 19, 2024 10:08 AM Consult Order CARDIAC EC HO-SPECIAL PROCEDURE [facility] [place] [facility] Apr 19, 2024 10:47 AM Consult Order COMMUNITY CARE-NUCLEAR MEDICINE [facility] Lab Results: +/- 30 days of [...] Range Comment Apr 19, 2024 10:21 AM [facility] HEMOGLOBIN A1C Specimen Type: BLOOD Comment: Values [...] Apr 19, 2024 09:46 AM Reporting Lab: [facility] [id number] Performing Lab: [facility] [address] HEMOGLOBIN A1C 4.9 4.0-6.0 Apr 19, 2024 10:21 AM [facility] TSH W/REFLEX TO FREE T4 Specimen Type: PLASMA Comment: Elevated triglyceride result from a non-fasting specimen should be interpreted with caution. A fasting panel is recommended for accurate triglycerides when trigs are >200 from a non-fasting specimen. Ordering Provider: EMIR GRACIA Report Released Date/Time: Apr 19, 2024 09:46 AM Reporting Lab: [facility] [address] Performing Lab: [facility] [address] TSH 0.69 u[IU]/mL 0.35-4.94 Apr 19, 2024 10:21 AM [facility] LIPID PANEL,NON-FASTING Specimen Type: PLASMA Comment: Elevated triglyceride result from a non-fasting specimen should be interpreted with caution. A fasting panel is recommended for accurate triglycerides when trigs are >200 from a non-fasting specimen. Ordering Provider: EMIR GRACIA Report Released Date/Time: Apr 19, 2024 09:46 AM Reporting Lab: [facility] [phone] Performing Lab: [facility] [address] CHOLESTEROL 263 mg/dL H <199 .HDL 38 mg/dL L >50 LDL CALCULATION 151 mg/dL H <99 VLDL CALCULATION 74 mg/dL H <29 NON HDL CHOLESTEROL 225 mg/dL H <129 TRIG(NON FASTING) 368 mg/dL H <149 Apr 19, 2024 10:21 AM [facility] ANTI-HEP C(EIA) Specimen Type: SERUM No comment entered. Ordering Provider: EMIR GRACIA Report Released Date/Time: Apr 19, 2024 10:00 AM Reporting Lab: [facility] [phone] Performing Lab: [facility] [address] ANTI-HEP C(EIA) NEGATIVE NEGATIVE Apr 19, 2024 10:21 AM [facility] COMPREHENSIVE METABOLIC PANEL+MG Specimen Type: PLASMA Comment: Elevated triglyceride result from a non-fasting specimen should be interpreted with caution. A fasting panel is recommended for accurate triglycerides when trigs are >200 from a non-fasting specimen. Ordering Provider: EMIR GRACIA Report Released Date/Time: Apr 19, 2024 09:46 AM Reporting Lab: [facility] [address] Performing Lab: [facility] [address] CREATININE 1.0 mg/dL 0.5-1.0 UREA NITROGEN 10 [...] Apr 19, 2024 09:46 AM Reporting Lab: [facility] [address] Performing Lab: [facility] [address] WBC 5.5 4.0-11.0 RBC 4.74 4.00-5.40 HGB [...] and tobacco- related health factors from the [facility] where the Encounter took place. Current Smoking Status This section includes the most current smoking, or tobacco-related health factor, from the [place] facility where the Encounter took place. Date/Time Current Smoking Status Comment Facil ity Jan 05, 2024 12:00 PM VA-TOBACCO FORMER USER [facility] Tobacco Use History This section includes a history of the smoking, or tobacco-related health factors, that were collected on or before the date of the Encounter. The data comes from the [place] facility where the Encounter took place. Date/Time Smoking Status/Tobacco Use Comment F acility Jan 05, 2024 12:00 PM VA-TOBACCO QUIT 5 TO < 15 YRS [facility] Advance Directives: All historical and current Section Date Range: From patient's date of to the date document was created. This section includes ALL of a patient's completed or amended [place] Advance and Rescinded Directives. The entries below indicate that a directive exists for the patient, but an actual copy is not included with this document. The data comes from all [facility]. Date Advance Directives Provider Source Jan 05, 2024 ADVANCE DIRECTIVE DISCUSSION SHAHID HURTADO [facility] Radiology Reports: +/- 30 days of the [...] the Encounter. The data comes from all [place] treatment facilities. Date/Time Radiology Report Provider Source Apr 19, 2024 09:48 AM CHEST 2 VIEWS PA A ND LAT: BILLIE ZAVALA [id number] -[id number] F Exm Date: APR 19, 2024@09:48 Req Phys: EMIR GRACIA Loc: K PACT DIAMONDS (Req'g Loc) Img Loc: [facility] RADIOLOGY Service: Unknown Screen: [place] [address] (Case [id number] COMPLETE) CHEST 2 VIEWS PA AND LAT (RAD Detailed) CPT:42026 Reason for Study: chest pain Clinical History: IS NOT under investigation for COVID-19 or is COVID-19 negative chest pain Responsible provider name and phone number to notify for critical findings if other than user placing the order and pager listed below: User placing orders pager: LAST CREATININE 1.0 (12/21/23) Report Status: Verified Date Reported: APR 19, 2024 Date Verified: APR 19, 2024 In Home Caregiver E-Sig:/GENARO/PIA VARGAS MD, FACR, CCD Report: EXAMINATION: CHEST 2 VIEWS PA AND LAT 04/19/2024 9:48 AM INDICATION: chest pain COMPARISON: None. FINDINGS: The cardiac silhouette and pulmonary vasculature are within normal limits. The lungs appear clear of infiltrate. No pleural fluid identified. Impression: No active pulmonary disease visualized. Primary Interpreting Staff: PIA VARGAS MD, FACR, STAFF RADIOLOGIST (In Home Caregiver) /PIA OLGUIN [facility] Encounter Notes: All associated encounter notes This section contains the clinical notes associated to the Encounter. Date/Time Encounter Note(s) Provider Source Apr 21, 2024 10:34 AM REPORT OF CONTACT: LOCAL TITLE: APPOINTMENT SCHEDULING NOTE STANDARD TITLE: REPORT OF CONTACT DATE OF NOTE: APR 21, 2024@10:34 ENTRY DATE: APR 21, 2024@10:34:29 AUTHOR: PATRICA GUEVARA EXP COSIGNER: URGENCY: STATUS: COMPLETED Attempted to schedule Return to clinic (RTC) Contact attempt made to 1st attempt Telephone 2nd attempt Letter - Sent letter by regular [place] mail to address on file: QUINTIN ZAVALA [address] [place] [address] Disposition order request after Apr Left message on voice mail to call back to this number [phone] If calls back, schedule appt for: MAMMOGRAM SCREENING BILATERAL /genaro/ PATRICA GUEVARA ADVANCED VIDEO ENGINEER Signed: 04/21/2024 10:35 Receipt Acknowledged By: 04/21/2024 13:00 /genaro/ EMIR GRACIA DNP,BOX FEEDER,ARCAROLINAS PATRICA GUEVARA [facility]
--- OUTSIDE RECORDS SUMMARY | 2024-05-04 07:53 | XMS_ITS | Encounter Summary ---
Author Name [facility] [place] [facility] [place] Address [address] [place] [address] Care Team Providers Care Vaccinator Name Role Phone EMIR GRACIA Primary Care Provider Unavailabl e Selected Encounter This section includes the information on record at [place] for the Encounter. Date/Time Encounter Type Encounter Description Reason Pro vider Source Apr 20, 2024 02:14 PM Outpatient Encounter COMMUNITY CARE CONSULT IHE Encounter Template Text not used by CT Plan of Treatment: Future Appointments (+ 6 months) and Future Tests (+/- 45 days) The Plan of Treatment section includes future care activities for the patient from all [place] treatmentfacilities. This section includes future appointments and future orders which are active, pending or scheduled. Future Appointments This section includes appointments that were scheduled to occur 6 months from the date of the Encounter, up to a maximum of 20 appointments. The data comes from all [place] treatment facilities. Appointment Date/Time Appointment Type Appointme nt Facility Name Apr 26, 2024 09:30 AM AMBULATORY - PS[facility]CHIATRY [facility] Apr 27, 2024 01:00 PM AMBULATORY - PSYCHIATRY [facility] IN [facility] Apr 28, 2024 01:00 PM [facility] - [facility]RY [facility] May 05, 2024 05:00 PM AMBULATORY - NONE [facility] May 11, 2024 09:00 AM AMBULATORY - [facility]ATRY [facility] May 11, 2024 01:00 PM AMBULATORY - PSYCHIATRY [facility] IN [facility] May 18, 2024 11:00 AM AMBULATORY - PSYCHIATRY TW IN [facility] May 18, 2024 01:00 PM [facility] May 24, 2024 08:30 AM AM[facility]UL[facility]ORY - PS[facility]ATRY [facility] Active, Pending, and Scheduled Orders This [...] Order CARDIAC EC HO OUTPT-ALL SITES Cons Incident Response Specialist's Choice [facility] Apr 19, 2024 10:08 AM Consult Order CARDIAC EC HO-SPECIAL PROCEDURE Cons Incident Response Specialist's Choice [facility] Apr 19, 2024 10:47 AM Consult Order COMMUNITY CARE-NUCLEAR MEDICINE Cons Incident Response Specialist's Choice [facility] Lab Results: +/- 30 days [...] Range Comment Apr 19, 2024 10:21 AM [facility] HEMOGLOBIN A1C Specimen Type: BLOOD [...] Apr 19, 2024 09:46 AM Reporting Lab: [facility] [id number] Performing Lab: [facility] [id number] HEMOGLOBIN A1C 4.9 4.0-6.0 Apr 19, 2024 10:21 AM [employer] TSH W/REFLEX TO FREE T4 Specimen Type: PLASMA Comment: Elevated triglyceride result from a non-fasting specimen should be interpreted with caution. A fasting panel is recommended for accurate triglycerides when trigs are >200 from a non-fasting specimen. Ordering Provider: EMIR GRACIA Report Released Date/Time: Apr 19, 2024 09:46 AM Reporting Lab: [facility] [id number] Performing Lab: [facility] [id number] TSH 0.69 u[IU]/mL 0.35-4.94 Apr 19, 2024 10:21 AM [employer] LIPID PANEL,NON-FASTING Specimen Type: PLASMA Comment: Elevated triglyceride result from a non-fasting specimen should be interpreted with caution. A fasting panel is recommended for accurate triglycerides when trigs are >200 from a non-fasting specimen. Ordering Provider: EMIR GRACIA Report Released Date/Time: Apr 19, 2024 09:46 AM Reporting Lab: [facility] [id number] Performing Lab: [facility] [id number] CHOLESTEROL 263 mg/dL H <199 .HDL 38 mg/dL L >50 LDL CALCULATION 151 mg/dL H <99 VLDL CALCULATION 74 mg/dL H <29 NON HDL CHOLESTEROL 225 mg/dL H <129 TRIG(NON FASTING) 368 mg/dL H <149 Apr 19, 2024 10:21 AM [employer] ANTI-HEP C(EIA) Specimen Type: SERUM No comment entered. Ordering Provider: EMIR GRACIA Report Released Date/Time: Apr 19, 2024 10:00 AM Reporting Lab: [facility] [phone] Performing Lab: [facility] [phone] ANTI-HEP C(EIA) NEGATIVE NEGATIVE Apr 19, 2024 10:21 AM [employer] COMPREHENSIVE METABOLIC PANEL+MG Specimen Type: PLASMA Comment: Elevated triglyceride result from a non-fasting specimen should be interpreted with caution. A fasting panel is recommended for accurate triglycerides when trigs are >200 from a non-fasting specimen. Ordering Provider: EMIR GRACIA Report Released Date/Time: Apr 19, 2024 09:46 AM Reporting Lab: [facility] [phone] Performing Lab: [facility] [phone] CREATININE 1.0 mg/dL 0.5-1.0 UREA NITROGEN 10 [...] Apr 19, 2024 09:46 AM Reporting Lab: [facility] [phone] Performing Lab: [facility] [id number] WBC 5.5 4.0-11.0 RBC 4.74 4.00-5.40 HGB [...] and tobacco- related health factors from the [place] facility where the Encounter took place. Current Smoking Status This section includes the most current smoking, or tobacco-related health factor, from the [place] facility where the Encounter took place. Date/Time Current Smoking Status Comment Facil ity Jan 05, 2024 12:00 PM VA-TOBACCO FORMER USER [facility] Tobacco Use History This section includes a history of the smoking, or tobacco-related health factors, that were collected on or before the date of the Encounter. The data comes from the [place] facility where the Encounter took place. Date/Time [...] the Encounter. The data comes from all [place] treatment facilities. Date/Time Radiology Report Provider Source Apr 19, 2024 09:48 AM CHEST 2 VIEWS PA A ND LAT: BILLIE ZAVALA [id number] -[id number] F Exm Date: APR 19, 2024@09:48 Req Phys: EMIR GRACIA Loc: [facility] PACT DIAMONDS (Req'g Loc) Img Loc: [facility] Service: Unknown Screen: [place] [address] (Case [id number] COMPLETE) CHEST 2 VIEWS PA AND LAT (RAD Detailed) CPT:51379 Reason for Study: chest pain Clinical History: IS NOT under investigation for COVID-19 or is COVID-19 negative chest pain Responsible provider name and phone number to notify for critical findings if other than user placing the order and pager listed below: User placing orders pager: LAST CREATININE 1.0 (12/21/23) Report Status: Verified Date Reported: APR 19, 2024 Date Verified: APR 19, 2024 Development Administrator E-Sig:/ES/PIA VARGAS MD, FACR, CCD Report: EXAMINATION: CHEST 2 VIEWS PA AND LAT 04/19/2024 9:48 AM INDICATION: chest pain COMPARISON: None. FINDINGS: The cardiac silhouette and pulmonary vasculature are within normal limits. The lungs appear clear of infiltrate. No pleural fluid identified. Impression: No active pulmonary disease visualized. Primary Interpreting Staff: PIA VARGAS MD, FACR, STAFF RADIOLOGIST (Development Administrator) /PIA OLGUIN [facility] Encounter Notes: All associated encounter notes This section contains the clinical notes associated to the Encounter. Date/Time Encounter Note(s) Provider Source Apr 20, 2024 02:14 PM NONVA NOTE: LOCAL TITLE: COMMUNITY CARE-CARE COORDINATION PLAN NOTE STANDARD TITLE: NONVA NOTE DATE OF NOTE: APR 20, 2024@14:14 ENTRY DATE: APR 20, 2024@14:14:39 AUTHOR: PALOMA BARRAGAN EXP COSIGNER: URGENCY: STATUS: COMPLETED Community Care Consult: Nuclear Medicine Consult No: [id number] HSRM Referral #: Chief Complaint: Dyspnea with exertion Level of Care Coordination Complex/Chronic Care Coordination was determined from: Chart Review Facility Community Care Office Contact Care Coordination Point of Contact: Paloma Barragan RN Services: Moderate Care Coordination Services Case Management, if appropriate Direct communications with interdisciplinary team Plan: proceed to scheduling HR-High risk consult, continue trying to schedule after mandated effort EEF-Extra scheduling effort: 1 additional call [facility] User Role: RN /lilia/ Paloma Barragan RN mortgage analyst Building Code Administrator Signed: 04/20/2024 14:15 PALOMA BARRAGAN [facility]
--- OUTSIDE RECORDS SUMMARY | 2024-05-04 07:54 | XMS_ITS | Encounter Summary ---
Author Name [facility] Organization [facility] Address [address] [place] [address] Care Team Providers Care Bolt Labeler Name Role Phone EMIR GRACIA Primary Care Provider Unavailabl e Selected Encounter This section includes the information on record at [place] for the Encounter. Date/Time Encounter Type Encounter Description Reason Provider Source Jan 19, 2024 12:00 PM OFFICE O/P EST LOW 20 MIN [facility] ICD-10-CM Z86.59 Personal history of other mental and behavioral disorders ALISIA APARICIO Lorie Encounter Template Text not used by [place] Assessments - Encounter Diagnoses This section includes the primary and secondary diagnoses documented for the Encounter. Date/Time Primary/Secondary Diagnosis Diagnosis Name Provider Source Jan 19, 2024 02:42 PM PRIMARY Personal history of other mental and behavioral disorders ALISIA APARICIO [facility] Jan 19, 2024 02:42 PM SECONDARY Generalized anxiety disorder ALISIA APARICIO [facility] Jan 19, 2024 02:42 PM SECONDARY Major depressive disorder, single episode, unspecified ALISIA APARICIO [facility] Plan of Treatment: Future Appointments [...] 20 appointments. The data comes from all [facility]. Appointment Date/Time Appointment Type Appointme nt Facility Name Jan 20, 2024 08:45 AM AMBULATORY - PSYCHIATRY [facility] Jan 20, 2024 10:00 AM AMBULATORY - PSYCHIATRY [facility] Jan 20, 2024 11:00 AM AMBULATORY - PSYCHIATRY [facility] Jan 21, 2024 08:45 AM AMBULATORY - PSYCHIATRY [facility] Jan 21, 2024 10:00 AM AMBULATORY - PSYCHIATRY [facility] Jan 21, 2024 11:00 AM AMBULATORY - PSYCHIATRY [facility] Jan 23, 2024 08:45 AM AMBULATORY - PSYCHIATRY [facility] Jan 23, 2024 10:00 AM AMBULATORY - PSYCHIATRY [facility] Jan 23, 2024 11:00 AM AMBULATORY - PSYCHIATRY [facility] Jan 23, 2024 12:00 PM AMBULATORY - PSYCHIATRY [facility] Jan 24, 2024 08:15 AM AMBULATORY - SURGERY [facility] Jan 29, 2024 11:00 AM AMBULATORY - PSYCHIATRY [facility] Jan 29, 2024 03:00 PM AMBULATORY - PSYCHIATRY [facility] Feb 04, 2024 11:00 AM AMBULATORY - PS[facility]CHIATRY [facility] Feb 11, 2024 11:00 AM AMBULATORY - PSYCHIATRY [facility] Feb 18, 2024 11:00 AM AMBULATORY - PS[facility]CHIATRY [facility] Feb 19, 2024 03:00 PM AMBULATORY - PSYCHIATRY [facility] Feb 25, 2024 11:00 AM AMBULATORY - PSYCHIATRY [facility] Mar 02, 2024 11:00 AM AMBULATORY - PSYCHIATRY [facility] Mar 03, 2024 10:30 AM AMBULATORY - PSYCHIATRY [facility] Active, [...] Dec 21, 2023 08:58 PM Reporting Lab: [facility] [id number] Performing Lab: [facility] [id number] HEMOGLOBIN A1C 4.9 4.0-6.0 Dec 22, 2023 06:44 AM [facility] B 12 Specimen Type: SERUM No comment entered. Ordering Provider: Celeste DUKES Report Released Date/Time: Dec 21, 2023 08:58 PM Reporting Lab: [facility] [id number] Performing Lab: [facility] [phone] B 12 381 pg/mL 213-816 Dec 22, 2023 06:44 AM [facility] VIT D 25-OH,TOTAL Specimen Type: SERUM No comment entered. Ordering Provider: Celeste DUKES Report Released Date/Time: Dec 21, 2023 08:58 PM Reporting Lab: [facility] [phone] Performing Lab: [facility] [id number] VIT D 25-OH,TOTAL 29 ng/mL 12-50 Dec 22, 2023 06:44 AM [facility] FOLATE Specimen Type: PLASMA No comment entered. Ordering Provider: Celeste DUKES Report Released Date/Time: Dec 21, 2023 08:58 PM Reporting Lab: [facility] [id number] Performing Lab: [facility] [phone] FOLATE 7.1 ng/mL >7.0 Dec 22, 2023 06:44 AM [facility] TSH W/REFLEX TO FREE T4 Specimen Type: PLASMA No comment entered. Ordering Provider: Celeste DUKES Report Released Date/Time: Dec 21, 2023 08:58 PM Reporting Lab: [facility] [id number] Performing Lab: [facility] [phone] TSH 0.36 u[IU]/mL 0.35-4.94 Dec 22, 2023 06:44 AM [facility] LIPID PANEL,FASTING Specimen Type: PLASMA No comment entered. Ordering Provider: Celeste DUKES Report Released Date/Time: Dec 21, 2023 08:58 PM Reporting Lab: [facility] [phone] Performing Lab: [facility] [phone] CHOLESTEROL 170 mg/dL <199 TRIGLYCERIDE 151 mg/dL [...] Dec 21, 2023 04:56 PM Reporting Lab: [facility] [phone] Performing Lab: [facility] [phone] BARBITURATES Negative Negative AMPHETAMINES Negative Negative COCAINE [...] Dec 21, 2023 04:56 PM Reporting Lab: [facility] [phone] Performing Lab: [facility] [phone] ETHANOL Negative mg/dL NEGATIVE Dec 21, 2023 05:30 PM [facility] COMPREHENSIVE METABOLIC PANEL+MG Specimen Type: PLASMA No comment entered. Ordering Provider: MONIQUE VÁSQUEZ Report Released Date/Time: Dec 21, 2023 04:56 PM Reporting Lab: [facility] [phone] Performing Lab: [facility] [phone] CREATININE 1.0 mg/dL 0.5-1.0 UREA NITROGEN 9 [...] 71 >60 Dec 21, 2023 05:30 PM [facility] CBC & DIFF Specimen Type: BLOOD Comment: Automated Differential Performed Ordering Provider: MONIQUE VÁSQUEZ Report Released Date/Time: Dec 21, 2023 04:56 PM Reporting Lab: [facility] [phone] Performing Lab: [facility] [phone] WBC 9.50 10*3/uL 4.0-11.0 RBC 4.69 10*6/uL [...] and tobacco- related health factors from the [place] facility where the Encounter took place. Current Smoking Status This section includes the most current smoking, or tobacco-related health factor, from the [place] facility where the Encounter took place. Date/Time Current Smoking Status Comment Latasha pitts Jan 05, 2024 12:00 PM VA-TOBACCO FORMER USER [facility] Tobacco Use History This section includes a history of the smoking, or tobacco-related health factors, that were collected on or before the date of the Encounter. The data comes from the [place] facility where the Encounter took place. Date/Time Smoking Status/Tobacco Use Comment Anival wahl Jan 05, 2024 12:00 PM [place]-TOBACCO QUIT 5 TO < 15 YRS [facility] [...] 05, 2024 ADVANCE DIRECTIVE DISCUSSION SHAHID WAGNER [facility] Encounter Notes: All associated encounter notes This section contains the clinical notes associated to the Encounter. Date/Time Encounter Note(s) Provider Source Jan 19, 2024 12:17 PM [facility] NOTE: LOCAL TITLE: MH TARDIVE DYSKINESIA EXAM STANDARD TITLE: MENTAL HEALTH E & M NOTE DATE OF NOTE: JAN 19, 2024@12:17 ENTRY DATE: JAN 19, 2024@12:17:24 AUTHOR: ALISIA APARICIO COSIGNER: URGENCY: STATUS: COMPLETED AIMS (Mental Health Instrument) The patient was evaluated for symptoms of tardive dyskinesia using the AIMS. Total score for items 1-7: 0 1. Facial and Oral Movements Muscles of facial expression, e.g., movements of forehead, eyebrows, periorbital area, cheeks. Include frowning, blinking, grimacing of upper face. None 2. Facial and Oral Movements Lips and perioral area, e.g., puckering, pouting, smacking. None 3. Facial and Oral Movements Jaw, e.g., biting, clenching, chewing, mouth opening, lateral movement. None 4. Facial and Oral Movements Tongue. Rate only increase in movement both in and out of mouth, not inability to sustain movement. None 5. Extremity Movements Upper (arms, wrists, hands, fingers). Include movements that are choreic (rapid, objectively purposeless, Irregular, spontaneous) or athetoid (slow, irregular, complex, serpentine). Do not include tremor (repetitive, regular, rhythmic movements). None 6. Extremity Movements Lower (legs, knees, ankles, toes), e.g., lateral knee movement, foot tapping, heel dropping, foot squirming, Inversion and eversion of foot. None 7. Trunk Movements Neck, shoulders, hips, e.g., rocking, twisting, squirming, pelvic gyrations. Include diaphragmatic movements. None 8. Global Judgments Severity of abnormal movements. none, normal 9. Global Judgments Incapacitation due to abnormal movements. none, normal 10. Global Judgments Patient's awareness of abnormal movements. Rate only patient's report no awareness 11. Dental Status Current problems with teeth and/or dentures. no 12. Dental Status Does patient usually wear dentures? no The Psychiatrist/Clinician is responsible for determining if the patient has Tardive Dyskinesia and document it in the patients record. Only items 1-7 are counted in the total score. Items 8-10 are global judgments; items 11-12 indicate dental status. Exam score of 3 or more on 1 body region, or, 2 or more on 2 body regions, qualifies patients for Schooler's and Akhtar's criteria of Tardive Dyskinesia. Scoring [place]: 0=None, 1=minimal-might be normal, 2=mild, 3=moderate, 4=severe /es/ Alisia Aparicio DO Staff Psychiatrist Signed: 01/19/2024 14:42 ALISIA APARICIO [facility] Jan 19, 2024 11:14 AM PSYCHIATRY E & M N OTE: LOCAL TITLE: PSYCHIATRIC EVALUATION & MANAGEMENT STANDARD TITLE: PSYCHIATRY E & M NOTE DATE OF NOTE: JAN 19, 2024@11:14 ENTRY DATE: JAN 19, 2024@11:14:58 AUTHOR: ALISIA APARICIO EXP COSIGNER: URGENCY: STATUS: COMPLETED [place] seen for 20 minute medication management visit with >16 minutes spent in psychotherapy including psychoeducation. PPH Week: 3 SOURCE OF INFORMATION: interview and chart review SUBJECTIVE: reported that she is doing, okay. She reported that she experienced a panic attack early on Friday morning that lasted approximately an hour and 15 minutes. She reported that when she woke up, she noticed she was having the panic attack, so she took her morning medications including quetiapine and duloxetine and then approximately 45 minutes to an hour after that she took the quetiapine 25 mg PRN dose. She also reported that, I did some breathing, and that helped. She reported that she felt confused, and feeling that things aren't real, but denied any auditory or visual hallucinations during the episode. She reported that she had been staying in [address] during the week but returned home Friday night to stay at her house over the weekend. She reported that both this episode and the episode which occurred last weekend both happened at home, So I don't know if it's the transition to home. She reported that there were no changes to her medication regimen recently except, I took them a little earlier than normal on Friday because I went to bed earlier. She denied that she had taken any PRN medications on Friday night either. She reported that, On night, I was struggling with rumination and racing thoughts about work, but not on Friday. Discussed with her that the cause of these episodes are uncertain although given her past report of confusion and hallucinations on Compazine, could consider reducing quetiapine doses to reduce potential for anticholinergic side effects which can lead to confusion. She declined to do decrease the quetiapine, I think it's working for me, my mood is definitely better, and I think the positives definitely ouweigh the negatives, and requested refills of the quetiapine. She also reported that, PPH has been really helpful. She reported that she has a few, occasional, intrusive, suicidal thoughts, but nothing I'd act on and no plans. Nothing like I had 1-2 months ago. She reported that if she did have plans or felt at imminent risk of danger to herself or others, she'd contact the crisis line. She does report still feeling uncertain about whether or not to return to work. She reported that her boss and employer seem supportive, but I worry about being effective. She reported that she is not currently scheduled to work until next Friday. She asked whether or not this senior grant writer thinks she should return to her job or not. This senior grant writer validated that it is an extremely difficult decision to make and can empathize with both of her feelings of wanting to return to work and being cautious given the significant trauma she experienced. This senior grant writer asked if she had discussed this with any friends, family members, or her employer and she replied, I spoke to my ex- and he thinks I shouldn't go back. When asked what she thought if his recommendation, she stated that she does love her job but realized it almost cost her her life and is not willing to lose her life over it. 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 She reported that she completed a PTSD service disability claim recently and is awaiting the results of the claim which could take months to determine. At the end of the visit, she decided that she was going to call her employer to discuss possible next steps and to determine if she needed additional paperwork to return to work completed and plans to discuss them with her outpatient therapist. OBJECTIVE: Previous notes, vitals, and medications reviewed. [...] 10:18 201.1(91.22)[31*] 07/02/2023 14:03 214.8(97.43)[33*] CURRENT MEDICATIONS: TAKING: DRUG STATUS SIG DULOXETINE HCL 60MG EC CAP ACTIVE SIG: TAKE ONE CAPSULE BY MOUTH EVERY DAY FOR MOOD Taking during the day, taking at 10-11 am FEXOFENADINE HCL 180MG TAB ACTIVE SIG: TAKE ONE TABLET BY MOUTH TWICE A DAY FOR ALLERGIES Taking as written ATORVASTATIN CALCIUM 40MG TAB ACTIVE SIG: TAKE ONE TABLET BY MOUTH AT BEDTIME FOR CHOLESTEROL Taking as written FISH OIL 1000MG (500MG DHA/EPA) CAP ACTIVE SIG: TAKE ONE CAPSULE BY MOUTH EVERY MORNING FOR HIGH TRIGLYCERIDES Taking as written QUETIAPINE FUMARATE 25MG TAB ACTIVE SIG: TAKE ONE TABLET BY MOUTH THREE TIMES A DAY NEEDED FOR ANXIETY Taken 3-4 times a week, once a day in the late afternoon/evening QUETIAPINE FUMARATE 300MG TAB ACTIVE SIG: TAKE ONE TABLET BY MOUTH AT BEDTIME FOR DEPRESSION Taking as written QUETIAPINE FUMARATE 200MG TAB ACTIVE SIG: TAKE ONE TABLET BY MOUTH EVERY MORNING FOR DEPRESSION Taking as written TRAZODONE HCL 50MG TAB ACTIVE SIG: TAKE ONE TABLET BY MOUTH AT BEDTIME NEEDED FOR SLEEP Used it twice in the past week (not on Friday night), if hasn't fallen asleep by 1:00 am. RARELY TAKEN: EPINEPHRINE (EQV-EPI-PEN) 0.3MG/0.3ML ACTIVE SIG: INJECT 1 PEN DIRECTED NEEDED FOR ALLERGIC REACTION Hasn't needed since about 08/2023 CETIRIZINE HCL 5MG TAB ACTIVE SIG: TAKE ONE TABLET BY MOUTH EVERY MORNING NEEDED FOR ALLERGIC REACTION Hasn't needed since about 08/2023 ALBUTEROL 90MCG (CFC-F) 200D ORAL INHL ACTIVE SIG: INHALE 1 PUFF BY INHALATION FOUR TIMES A DAY NEEDED FOR SHORTNESS OF BREATH Only when having a severe allergic reaction, hasn't needed since about 08/2023 PREDNISONE 50MG TAB ACTIVE SIG: TAKE TWO TABLETS BY MOUTH NEEDED ONCE FOR ANAPHYLAXIS- TAKE IMMEDIATELY 100MG PREDNISONE AND 2 TABS CETIRIZINE (5MG EACH) FOR SEVERE ALLERGIC REACTION Takes with Zyrtec for severe allergic reaction, hasn't needed since about 08/2023 CLONIDINE HCL 0.1MG TAB ACTIVE SIG: TAKE ONE TABLET BY MOUTH TWICE A DAY NEEDED FOR PAIN Not taking currently, only needed for when she was on Dilaudid Only needed for pancreatitis flair, last taken at the beginning of 11/2023 DICYCLOMINE HCL 10MG CAP ACTIVE SIG: TAKE ONE CAPSULE BY MOUTH THREE TIMES A DAY NEEDED FOR PAIN Hasn't used since 05/2023 ONDANSETRON HCL 4MG TAB ACTIVE SIG: TAKE ONE TABLET BY MOUTH EVERY 6 HOURS NEEDED FOR NAUSEA AND VOMITING Only needed for pancreatitis flair, last taken at the beginning of 11/2023 NICOTINE 2MG GUM ACTIVE SIG: CHEW 1 PIECE IN MOUTH EVERY HOUR NEEDED TO QUIT TOBACCO Just occasionally, unable to quantify how often LORAZEPAM 0.5MG TAB 0.5MG Q8H NEEDED Statement/Explanation/Commen t: Non-VA medication that patient takes on their own. Non-VA medication not recommended by VA provider. Medication prescribed by Non-VA provider. Need [facility] pain clinic to review Only needed for pancreatitis flair, last taken at the beginning of 11/2023 HYDROMORPHONE 2MG TAB 4MG Q6H NEEDED Statement/Explanation/Commen t: Non-VA medication that patient takes on their own. Non-VA medication not recommended by VA provider. Medication prescribed by Non-VA provider. Need VA pain clinic follow up Only needed for pancreatitis flair, last taken at the beginning of 11/2023 LABS REVIEWED THIS VISIT: UREA NITROGEN 9 [...] rhythm, normal volume, coherent, no dysarthria Mood: okay...but my mood is better overall. Affect: mood-congruent Thought Process: Linear, logical, goal-oriented Thought Content: Denied current suicidal thoughts and plan but recently endorsed ego-dystonic fleeting suicidal thoughts without plan. Perceptual Disturbance: Denied current auditory hallucinations and visual hallucinations and did not appear to be reacting to internal stimuli. Insight: Fair Judgment: adequate for safety Cognition [...] reality testing in tact, future oriented Reports restorationist or spiritual beliefs/connections Comment: Mu-Ism andrew Clinical Impressions: The clinical impression of acute risk is Low ACUTE Risk. As evidenced by: seeking higher level of care, hx of engagement with mental health services The clinical impression of chronic risk is Intermediate CHRONIC Risk. As evidenced by: hx of previous suicide attempt, access to lethal DIAGNOSES: Major Depressive Disorder, recurrent, severe Post Traumatic Stress Disorder ASSESSMENT: QUINTIN ZAVALA is a 43-year-old seen for initial PPH medication management visit. 's outpatient therapist is Frances Cruz. She was recently admitted for inpatient psychiatric hospitalization after expressing suicidal ideation with plan to overdose in the context of significant stressors including finalization of her divorce, witnessing a traumatic event at work, recent breakup, and financial stress. She reported that overall things are going better since being hospitalized. She denied current suicidal thoughts or plans but endorsed having a few occasional intrusive suicidal thoughts but denied any actual intent, preparatory behavior, or actually making plans and feels comfortable contacting the crisis line if she felt in imminent risk of danger to herself or others. Given her report that duloxetine causes anxiety at night, she tried taking it during the daytime although she's not certain if it's made a significant difference. She reported experiencing episodes of confusion twice during PPH both occurring when she left [address] to stay at her house on the weekends. During both episodes, she reported not knowing what was real and during one of the episodes she experienced auditory and visual hallucinations. Both of these episodes occurred at home but not while staying [place] [address]. She's uncertain if it was due to being overly tired. She reported that she experienced hallucinations once when prescribed Compazine. Unclear if it was due to orthostasis or anticholinergic side effect from quetiapine although she reported that it occurred prior to taking her morning dose of quetiapine. Discussed prazosin as a possible option for nightmares and discussed attempting to consolidate quetiapine dose to nighttime only which she declined stating that she does not want to make current changes to her medication regimen. She reported that her mood has significantly improved on this regimen and reported that any benefits outweight the risks. Of note, she is prescribed Dilaudid and lorazepam from a non-VA prescriber for pancreatitis flairs which she hasn't used since November and was agreeable to a naloxone rescue kit. She has an intake at the [facility] with Dr. Alonso but will be seen for a bridging appointment with pharmacist Vero Lowry. PLAN: 1. Continue PPH programming 2. MEDICATION Changes: Continue: -duloxetine 60 mg qam -quetiapine 200 mg qam -quetiapine 300 mg qhs -quetiapine 25 mg TID PRN anxiety (currently taking 3-4 times a week in the late afternoon/early evening) -trazodone 50 mg qhs prn sleep (used twice in the past week) -naloxone rescue kit See CURRENT MEDICATIONS section above for full reconciliation PDMP Last PDMP Note 01/05/24 3. CONSULTS/REFERRALS/LABS: -n/a, antipsychotic labs annually, last completed 12/2023 -AIMS exam=0, 01/19/24 4. FUTURE CONSIDERATIONS: -n/a 5. FOLLOW-UPS: -Vero Lowry for bridging of psychiatric appointment EDUCATION: - Encouraged medication compliance and educated [...] in detail. The was directed to contact [facility] [phone]) or Outpatient Mental Health ( ) for ROUTINE questions/concerns, to call the Veterans Crisis Line ( ) and press 1 for URGENT or EMERGENT situations or to call 911 or present to the nearest ER. Also, the the was advised that the [facility] ER is available to the [place] on a 10/02 basis. /lilia/ Alisia Aparicio DO Staff Psychiatrist Signed: 01/20/2024 09:50 ALISIA APARICIO [facility]
--- OUTSIDE RECORDS SUMMARY | 2024-05-04 07:54 | XMS_ITS | Encounter Summary ---
Author Name [facility] [place] Organization [place] Address [address] [place] [address] Care Team Providers Care Oral Therapist Name Role Phone EMIR GRACIA Primary Care Provider Unavailabl e Selected Encounter This section includes the information on record at [place] for the Encounter. Date/Time Encounter Type Encounter Description Reason Provider Source Jan 19, 2024 10:00 AM 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/[facility] ICD-10-CM F32.9 Major depressive disorder, single episode, unspecified JAYLAN DORMAN Lorie Encounter Template Text not used by [place] Assessments - Encounter Diagnoses This section includes the primary and secondary diagnoses documented for the Encounter. Date/Time Primary/Secondary Diagnosis Diagnosis Name Provider Source Jan 19, 2024 04:08 PM PRIMARY Major depressive disorder, single episode, unspecified SPENCER FAUSTIN [facility] Jan 19, 2024 04:08 PM SECONDARY Post-traumatic stress disorder, chronic SPENCER FAUSTIN [facility] Plan of Treatment: Future Appointments [...] 20 appointments. The data comes from all [facility]. Appointment Date/Time Appointment Type Appointme nt Facility Name Jan 20, 2024 08:45 AM AMBULATORY - PSYCHIATRY [facility] Jan 20, 2024 10:00 AM AMBULATORY - PSYCHIATRY IN [facility] Jan 20, 2024 11:00 AM AMBULATORY - PSYCHIATRY IN [facility] Jan 21, 2024 08:45 AM AMBULATORY - PSYCHIATRY IN [facility] Jan 21, 2024 10:00 AM AMBULATORY - PSYCHIATRY IN [facility] Jan 21, 2024 11:00 AM AMBULATORY - PSYCHIATRY IN [facility] Jan 23, 2024 08:45 AM AMBULATORY - PSYCHIATRY IN [facility] Jan 23, 2024 10:00 AM AMBULATORY - PSYCHIATRY IN [facility] Jan 23, 2024 11:00 AM AMBULATORY - PSYCHIATRY IN [facility] Jan 23, 2024 12:00 PM AMBULATORY - PSYCHIATRY IN [facility] Jan 24, 2024 08:15 AM AMBULATORY - SURGERY [facility] Jan 29, 2024 11:00 AM AM[facility]ULATORY [facility] Jan 29, 2024 03:00 PM AMBULATORY - PSYCHIATRY [facility] Feb 04, 2024 11:00 AM AMBULATORY - [facility]ATRY [facility] Feb 11, 2024 11:00 AM AMBULATORY - [facility]RY [facility] Feb 18, 2024 11:00 AM AMBULATORY - [facility]RY [facility] Feb 19, 2024 03:00 PM AMBULATORY - PSYCHIATRY [facility] Feb 25, 2024 11:00 AM AMBULATORY - [...] of theEncounter. The data comes from all [facility]. Test Date/Time Test Type Test Details Facility Name December 05, 2023 02:27 PM Laboratory - Chemi stry Order BLOOD GAS PANEL FOR ICU ARTERIAL BLOOD STAT WC [facility] December 12, 2023 03:21 PM Laboratory - Chemi stry Order CALPROTECTIN,STOOL STOOL FECES SP ONCE [facility] Dec 21, 2023 04:56 PM Laboratory - Chemi stry Order SALICYLATE SERUM STAT SP [facility] Lab Results: +/- 30 days of the encounter This section includes the Chemistry and Hematology Lab Results on record with [place] for the patient. Radiology Reports and Pathology Reports are provided separately, in subsequent sections. Lab Results This section contains the Chemistry/Hematology Results that were resulted 30 days before or 30 daysafter the date of the Encounter. Date/Time Source Result Type Result - Unit Interpretation Reference Range Comment Dec 22, 2023 06:44 AM [facility] HEMOGLOBIN A1C Specimen Type: BLOOD [...] Dec 21, 2023 08:58 PM Reporting Lab: [facility] [id number] Performing Lab: [facility] [address] HEMOGLOBIN A1C 4.9 4.0-6.0 Dec 22, 2023 06:44 AM [facility] B 12 Specimen Type: SERUM No comment entered. Ordering Provider: Celeste DUKES Report Released Date/Time: Dec 21, 2023 08:58 PM Reporting Lab: [facility] [address] Performing Lab: [facility] [address] B 12 381 pg/mL 213-816 Dec 22, 2023 06:44 AM [facility] VIT D 25-OH,TOTAL Specimen Type: SERUM No comment entered. Ordering Provider: Ceelste DUKES Report Released Date/Time: Dec 21, 2023 08:58 PM Reporting Lab: [facility] [address] Performing Lab: [facility] [address] VIT D 25-OH,TOTAL 29 ng/mL 12-50 Dec 22, 2023 06:44 AM [facility] FOLATE Specimen Type: PLASMA No comment entered. Ordering Provider: Celeste DUKES Report Released Date/Time: Dec 21, 2023 08:58 PM Reporting Lab: [facility] [address] Performing Lab: [facility] [address] FOLATE 7.1 ng/mL >7.0 Dec 22, 2023 06:44 AM [facility] TSH W/REFLEX TO FREE T4 Specimen Type: PLASMA No comment entered. Ordering Provider: Celeste DUKES Report Released Date/Time: Dec 21, 2023 08:58 PM Reporting Lab: [facility] [address] Performing Lab: [facility] [address] TSH 0.36 u[IU]/mL 0.35-4.94 Dec 22, 2023 06:44 AM [facility] LIPID PANEL,FASTING Specimen Type: PLASMA No comment entered. Ordering Provider: Celeste DUKES Report Released Date/Time: Dec 21, 2023 08:58 PM Reporting Lab: [facility] [address] Performing Lab: [facility] [address] CHOLESTEROL 170 mg/dL <199 TRIGLYCERIDE 151 mg/dL H <149 .HDL 34 mg/dL L >50 LDL CALCULATION 106 mg/dL H <99 VLDL CALCULATION 30 mg/dL H <29 NON HDL CHOLESTEROL 136 mg/dL H <129 Dec 21, 2023 09:33 PM [facility] DRUG SCREEN PANEL,URINE Specimen Type: URINE Comment: Presumptive Positive by screen, results not confirmed. Ordering Provider: MONIQUE VÁSQUEZ Report Released Date/Time: Dec 21, 2023 04:56 PM Reporting Lab: [facility] [address] Performing Lab: [facility] [address] BARBITURATES Negative Negative AMPHETAMINES Negative Negative COCAINE Negative Negative BENZODIAZEPINES Negative Negative CANNABINOIDS POSITIVE H Negative METHADONE Negative Negative OPIATES Negative Negative PHENCYCLIDINE Negative Negative ETHANOL,URINE Negative Negative DRUG SCREEN CREAT 325.9 mg/dL >20.0 OXYCODONE Negative Negative BUPRENORPHINE Negative Negative TRAMADOL Negative Negative FENTANYL Negative Negative Dec 21, 2023 05:30 PM [facility] ETHANOL Specimen Type: PLASMA No comment entered. Ordering Provider: MONIQUE VÁSQUEZ Report Released Date/Time: Dec 21, 2023 04:56 PM Reporting Lab: [facility] [address] Performing Lab: [facility] [address] ETHANOL Negative mg/dL NEGATIVE Dec 21, 2023 05:30 PM [facility] COMPREHENSIVE METABOLIC PANEL+MG Specimen Type: PLASMA No comment entered. Ordering Provider: MONIQUE VÁSQUEZ Report Released Date/Time: Dec 21, 2023 04:56 PM Reporting Lab: [facility] [address] Performing Lab: [facility] [address] CREATININE 1.0 mg/dL 0.5-1.0 UREA NITROGEN 9 [...] 71 >60 Dec 21, 2023 05:30 PM [facility] CBC & DIFF Specimen Type: BLOOD Comment: Automated Differential Performed Ordering Provider: MONIQUE VÁSQUEZ Report Released Date/Time: Dec 21, 2023 04:56 PM Reporting Lab: [facility] [address] Performing Lab: [facility] [address] WBC 9.50 10*3/uL 4.0-11.0 RBC 4.69 10*6/uL [...] and tobacco- related health factors from the [place] facility where the Encounter took place. Current Smoking Status This section includes the most current smoking, or tobacco-related health factor, from the [place] facility where the Encounter took place. Date/Time Current Smoking Status Comment Latasha itindigo Jan 05, 2024 12:00 PM VA-TOBACCO FORMER USER [facility] Tobacco Use History This section includes a history of the smoking, or tobacco-related health factors, that were collected on or before the date of the Encounter. The data comes from the [place] facility where the Encounter took place. Date/Time Smoking Status/Tobacco Use Comment F acility Jan 05, 2024 12:00 PM [place]-TOBACCO QUIT 5 TO < 15 YRS [facility] Advance Directives: All historical [...] Source Jan 05, 2024 ADVANCE DIRECTIVE DISCUSSION MAG GENESISADDISON ALVARADOTaylor Melo [facility] Encounter Notes: All associated encounter notes This section contains the clinical notes associated to the Encounter. Date/Time Encounter Note(s) Provider Source Jan 19, 2024 04:03 PM MENTAL HEALTH GROU P COUNSELING NOTE: LOCAL TITLE: MH GROUP NOTE STANDARD TITLE: MENTAL HEALTH GROUP COUNSELING NOTE DATE OF NOTE: JAN 19, 2024@16:03 ENTRY DATE: JAN 19, 2024@16:03:30 AUTHOR: SPENCER FAUSTIN COSIGNER: JAYLAN DORMAN URGENCY: STATUS: COMPLETED MH GROUP NOTE Has ADDENDA [facility] GROUP Name of Group: Trauma and Anxiety Date of Group: 01/19/24 Time of Group: 1000 Number of Patients in Group: 4 Geological E Logger: Krishan Dorman, PhD; LP; Spencer Faustin, sports team marketing intern Modality: Group Psychotherapy Group Content: Education about trauma and anxiety and how they can be managed to support MH recovery. Medium: Handouts, discussion, activity Objectives: 1) Veterans will be able to identify common reactions to trauma 2) Veterans will learn how avoidance of feared situations, emotions, and memories may work in the short run, but in the long run can impede recovery from trauma 3) Veterans will learn about treatment options for trauma and anxiety, including gradual exposure, behavioral activation, and cognitive restructuring attended group for 50 minutes EDUCATION: Readiness to learn: Patient attended group, appeared to attend carefully to the information, and made appropriate comments during the discussion Patient understanding: Patient verbalized comprehension of material presented in group Informed consent for treatment and limits of confidentiality, as well as limits and benefits of treatment, were reviewed with patient in first session and they indicated understanding and agreement in the first session. For additional information about goals and plan for treatment while in [facility], please refer to veterans individualized treatment plan upon entry to [facility]. [place] is continuing with [facility] programming at this time. Also refer to suicide risk assessment completed upon entrance into [facility] program for comprehensive description of acute and chronic risk level. No change in risk at this time. Plan: Continue to attend [facility] to work toward goals. DSM 5 DIAGNOSIS: MDD, rec; PTSD r/t MST Care provided: Follow up care covered under the COMPACT Act of 2019 Section 201. Supporting clinical documentation: [facility]PH consult & PPH notes /lilia/ SPENCER FAUSTIN Hair Assistant Signed: 01/19/2024 16:23 /es/ Jaylan Dorman, Ph.D. Clinical Psychologist Cosigned: 01/20/2024 10:24 01/20/2024 ADDENDUM STATUS: COMPLETED I have reviewed, edited, and concur with the sports team marketing intern's note. I was present for today's session and I was available in the area for immediate consultation. /lilia/ Jaylan Dorman, Ph.D. Clinical Psychologist Signed: 01/20/2024 10:24 SPENCER FAUSTIN [facility]
--- OUTSIDE RECORDS SUMMARY | 2024-05-04 07:54 | XMS_ITS | Encounter Summary ---
Author Name [facility] [place] Address [address] [place] [address] Care Team Providers Care Teacher Lip Reading Name Role Phone EMIR GRACIA Primary Care Provider Unavailabl e Selected Encounter This section includes the information on record at [place] for the Encounter. Date/Time Encounter Type Encounter Description Reason Provider Source Jan 20, 2024 08:45 AM 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/[facility] ICD-10-CM F32.9 Major depressive disorder, single episode, unspecified CLEOPATRA HURTADO Lorie Encounter Template Text not used by [place] Assessments - Encounter Diagnoses This section includes the primary and secondary diagnoses documented for the Encounter. Date/Time Primary/Secondary Diagnosis Diagnosis Name Provider Source Jan 20, 2024 10:18 AM PRIMARY Major depressive disorder, single episode, unspecified CLEOPATRA HURTADO [facility] Jan 20, 2024 10:18 AM SECONDARY Post-traumatic stress disorder, chronic CLEOPATRA HURTADO [facility] Plan of Treatment: Future [...] appointments. The data comes from all [facility]. Appointment Date/Time Appointment Type Appointme nt Facility Name Jan 21, 2024 08:45 AM AMBULATORY - PSYCHIATRY [facility] Jan 21, 2024 10:00 AM AMBULATORY [place] [facility]ATRY [facility] Jan 21, 2024 11:00 AM AMBULATORY - PSYCHIATRY [facility] Jan 23, 2024 08:45 AM AMBULATORY - PSYCHIATRY [facility] Jan 23, 2024 10:00 AM AMBULATORY - PSYCHIATRY [facility] Jan 23, 2024 11:00 AM AMBULATORY - [place]AT[place] [facility] Jan 23, 2024 12:00 PM AMBULATORY - PSYCHIATRY [facility] Jan 24, 2024 08:15 AM AMBULATORY - SURGERY [facility] Jan 29, 2024 11:00 AM AMBULATORY - [facility]RY [facility] Jan 29, 2024 03:00 PM AMBULATORY - PSYCHIATRY [facility] Feb 04, 2024 11:00 AM AMBULATORY - PS[facility]CHIATRY [facility] Feb 11, 2024 11:00 AM AMBULATORY - PS[facility]CHIATRY [facility] Feb 18, 2024 11:00 AM AMBULATORY - PS[facility]CHIATRY [facility] Feb 19, 2024 03:00 PM AMBULATORY - PSYCHIATRY [facility] Feb 25, 2024 11:00 AM AMBULATORY - PS[facility]CHIATRY [facility] Mar 02, 2024 11:00 AM AMBULATORY - PSYCHIATRY [facility] Mar 03, 2024 10:30 AM AMBULATORY - PS[facility]CHIATRY [facility] Mar 10, 2024 11:00 AM AMBULATORY - PS[facility]CHIATRY [facility] Mar 24, 2024 11:00 AM AMBULATORY - PS[facility]CHIATRY [facility] Mar 25, 2024 09:00 AM AMBULATORY - PSYCHIATRY [facility] Active, Pending, and Scheduled Orders This section includes a listing of several types of active, pending, and scheduled orders, including clinic medications orders, diagnostic test orders, procedure orders and consult orders; where the start date of the order is 45 days before the date of the Encounter or 45 days after the date of theEncounter. The data comes from all [facility]. Test Date/Time Test Type Test Details Facility Name December 12, 2023 03:21 PM Laboratory - [...] actually be between 8.7 and 9.3. Ref: http://www.[employer].org/CAPdata. asp Ordering Provider: THERESA DUKES Report Released Date/Time: Dec 21, 2023 08:58 PM Reporting Lab: [facility] [address] Performing Lab: [facility] [address] HEMOGLOBIN A1C 4.9 4.0-6.0 Dec 22, 2023 06:44 AM [facility] B 12 Specimen Type: SERUM No comment entered. Ordering Provider: THERESA DUKES Report Released Date/Time: Dec 21, 2023 08:58 PM Reporting Lab: [facility] [address] Performing Lab: [facility] [address] B 12 381 pg/mL 213-816 Dec 22, 2023 06:44 AM [facility] VIT D 25-OH,TOTAL Specimen Type: SERUM No comment entered. Ordering Provider: THERESA DUKES Report Released Date/Time: Dec 21, 2023 08:58 PM Reporting Lab: [facility] [address] Performing Lab: [facility] [address] VIT D 25-OH,TOTAL 29 ng/mL 12-50 Dec 22, 2023 06:44 AM [facility] FOLATE Specimen Type: PLASMA No comment entered. Ordering Provider: THERESA DUKES Report Released Date/Time: Dec 21, 2023 08:58 PM Reporting Lab: [facility] [address] Performing Lab: [facility] [address] FOLATE 7.1 ng/mL >7.0 Dec 22, 2023 06:44 AM [facility] TSH W/REFLEX TO FREE T4 Specimen Type: PLASMA No comment entered. Ordering Provider: THERESA DUKES Report Released Date/Time: Dec 21, 2023 08:58 PM Reporting Lab: [facility] [address] Performing Lab: [facility] [address] TSH 0.36 u[IU]/mL 0.35-4.94 Dec 22, 2023 06:44 AM [facility] LIPID PANEL,FASTING Specimen Type: PLASMA No comment entered. Ordering Provider: THERESA DUKES Report Released Date/Time: Dec 21, 2023 08:58 PM Reporting Lab: [facility] [address] Performing Lab: [facility] [address] CHOLESTEROL 170 mg/dL <199 TRIGLYCERIDE 151 mg/dL H <149 .HDL 34 mg/dL L >50 LDL CALCULATION 106 mg/dL H <99 VLDL CALCULATION 30 mg/dL H <29 NON HDL CHOLESTEROL 136 mg/dL H <129 Social History: Smoking Status (Most current) and [...] 05, 2024 12:00 PM [place]-TOBACCO FORMER USER [facility] Tobacco Use History This section includes a history of the smoking, or tobacco-related health factors, that were collected on or before the date of the Encounter. The data comes from the [place] facility where the Encounter took place. Date/Time Smoking Status/Tobacco Use Comment F acility Jan 05, 2024 12:00 PM [place]-TO[place] QUIT 5 TO < 15 YRS [facility] Advance Directives: All historical and current Section Date Range: From patient's date of to the date document was created. This section includes ALL of a patient's completed or amended [place] Advance and Rescinded Directives. The entries below indicate that a directive exists for the patient, but an actual copy is not included with this document. The data comes from all [place] facilities. Date Advance Directives Provider Source Jan 05, 2024 ADVANCE DIRECTIVE DISCUSSION SHAHID HURTADO [facility] Encounter Notes: All associated encounter notes This section contains the clinical notes associated to the Encounter. Date/Time Encounter Note(s) Provider Source Jan 20, 2024 08:45 AM MENTAL HEALTH GROU P COUNSELING NOTE: LOCAL TITLE: MH GROUP NOTE STANDARD TITLE: MENTAL HEALTH GROUP COUNSELING NOTE DATE OF NOTE: JAN 20, 2024@08:45 ENTRY DATE: JAN 20, 2024@10:13:44 AUTHOR: GEORGINA HURTADO EXP COSIGNER: URGENCY: STATUS: COMPLETED MH GROUP NOTE Has ADDENDA BRACELET FORMER: FRANCESCA Wesley DATE OF GROUP: 01/20/2024 TIME OF GROUP: Community meeting [id number]; MAP Group [id number] LENGTH OF GROUP: 50 minutes NUMBER IN ATTENDANCE: 4 MODALITY: Group Psychotherapy The first 15 min of the group consisted of the community meeting with veterans and [facility] staff present TOPIC: My Action Plan/MAP Session 07/24 Mental Health Recovery and My Action Plan MEDIUM: Group Discussion Activity: Writing/describing mental health symptoms as a severity chart OBJECTIVES: 1. Veterans will identify carbone concepts and issues that need attention in the mental health recovery process such as hope, personal responsibility, education, self- advocacy, and support. 2. Veterans will describe symptoms that have brought them to [facility] ([facility]) in relation to how they are going to focus on recovery. 3. Veterans will develop a crisis/safety plan to cope with these symptoms. Patient Education: Readiness to learn: Attended session, Appeared to listen attentively, Participated in the discussion Patient Understanding: Appeared to understand the material and concepts presented Informed consent for treatment and limits of confidentiality, as well as limits and benefits of treatment, were reviewed with patient in first session and they indicated understanding and agreement in the first session. For additional information about goals and plan for treatment while in [facility], please refer to veterans individualized treatment plan upon entry to [facility]. is continuing with [facility] programming at this time. Also refer to suicide risk assessment completed upon entrance into [facility] program for comprehensive description of acute and chronic risk level. No change in risk at this time. Plan: Continue to attend [facility] to work toward goals. ATTENDED the entirety of the group. DSM-5 DIAGNOSIS: MDD, rec; PTSD r/t MST /lilia/ FRANCESCA DEMPSEY CLINICAL BALING MACHINE TENDER Signed: 01/20/2024 10:20 01/20/2024 ADDENDUM STATUS: COMPLETED Care provided: Follow up care covered under the COMPACT Act of 2019 Section 201. Supporting clinical documentation: [facility]PH consult & [facility]PH notes /lilia/ FRANCESCA DEMPSEY CLINICAL BALING MACHINE TENDER Signed: 01/21/2024 13:25 GEORGINA HURTADO [facility]
--- OUTSIDE RECORDS SUMMARY | 2024-05-04 07:54 | XMS_ITS | Encounter Summary ---
Author Name [facility] [place] Organization [facility] [place] [place] Address [address] [place] [address] Care Team Providers Care National Account Manager Name Role Phone EMIR GRACIA Primary Care Provider Unavailabl e Selected Encounter This section includes the information on record at [place] for the Encounter. Date/Time Encounter Type Encounter Description Reason Provider Source Feb 05, 2024 03:45 PM HC PRO PHONE CALL 11-20 MIN TELEPHONE/REHAB AND SUPPORT ICD-10-CM Z51.89 Encounter for other specified aftercare CANDICE ACOSTA Lorie Encounter Template Text not used by [place] Assessments - Encounter Diagnoses This section includes the primary and secondary diagnoses documented for the Encounter. Date/Time Primary/Secondary Diagnosis Diagnosis Name Provider Source Feb 05, 2024 03:45 PM PRIMARY Encounter for other specified aftercare CANDICE ACOSTA [facility] Plan of Treatment: Future Appointments [...] Date/Time Appointment Type Appointme nt Facility Name Feb 11, 2024 11:00 AM AMBULATORY [facility] Feb 18, 2024 11:00 AM AMBUL[facility]ORY [facility] Feb 19, 2024 03:00 PM AMBULATORY - PS[facility]IATRY [facility] Feb 25, 2024 11:00 AM AMBULATORY [facility] Mar 02, 2024 11:00 AM AM[facility]ORY [facility] Mar 03, 2024 10:30 AM AMBUL[facility]ORY [facility] Mar 10, 2024 11:00 AM AMBULATORY [facility] Mar 24, 2024 11:00 AM AMBULATORY [facility] Mar 25, 2024 09:00 AM AMBULATORY - PS[facility]CHIATRY [facility] Apr 05, 2024 08:30 AM AM[facility]ORY [facility] Apr 09, 2024 01:00 PM AMBULATORY - PSYCHIATRY [facility] Apr 09, 2024 02:30 PM AMBULATORY - PSYCHIATRY [facility] Apr 12, 2024 09:30 AM AM[facility] Apr 19, 2024 09:00 AM AMBULATORY - MEDICINE [facility] Apr 20, 2024 01:00 PM AMBULATORY - PSYCHIATRY [facility] Apr 26, 2024 09:30 AM AM[facility] Apr 27, 2024 01:00 PM AMBULATORY - PSYCHIATRY [facility] Apr 28, 2024 01:00 PM AMBUL[facility]ORY [facility]ATRY [facility] May 05, 2024 05:00 PM AM[facility]UL[facility]ORY - NONE [place] [facility] May 11, 2024 09:00 AM AMBULATORY - PS[facility]CHIATRY [facility] Social History: Smoking Status (Most current) and [...] 05, 2024 12:00 PM VA-TOBACCO FORMER USER [facility] Tobacco Use History This section includes a history of the smoking, or tobacco-related health factors, that were collected on or before the date of the Encounter. The data comes from the [place] facility where the Encounter took place. Date/Time Smoking Status/Tobacco Use Comment F acility Jan 05, 2024 12:00 PM VA-TOBACCO QUIT 5 TO < 15 YRS [facility] Advance Directives: All historical and current Section Date Range: From patient's date of to the date document was created. This section includes ALL of a patient's completed or amended [place] Advance and Rescinded Directives. The entries below indicate that a directive exists for the patient, but an actual copy is not included with this document. The data comes from all [place] facilities. Date Advance Directives Provider Source Jan 05, 2024 ADVANCE DIRECTIVE DISCUSSION SHAHID HURTADO [facility] Encounter Notes: All associated encounter notes This section contains the clinical notes associated to the Encounter. 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 The [employer] Competition and Festival is a [place] Rehabilitation Special Event focusing on the therapeutic use of arts to aid in recovery. Time spent included answering questions about upcoming filming session including time, paperwork, location, and discussion about entries. Addressed other Lucan concerns. Lucan voiced understanding. Lucan stated that it has been a rough week and she has appreciated having this opportunity to look forward to. Lucan has principal technical writer's contact information for any additional questions or issues that arrive related to filming. /lilia/ RAGHU ODOM,BC-DMT,MT-BC CREATIVE ARTS THERAPIST Signed: 02/05/2024 18:56 CANDICE ACOSTA [facility]
--- OUTSIDE RECORDS SUMMARY | 2024-05-04 07:54 | XMS_ITS | Encounter Summary ---
Author Name [facility] [facility] [place] Organization [facility] [place] Address [address] [place] [address] Care Team Providers Care Yarder Puncher Name Role Phone EMIR GRACIA Primary Care Provider Unavailabl e Selected Encounter This section includes the information on record at [place] for the Encounter. Date/Time Encounter Type Encounter Description Reason Provider Source Jan 23, 2024 08:45 AM 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/[facility] ICD-10-CM F32.9 Major depressive disorder, single episode, unspecified CLEOPATRA HURTADO Lorie Encounter Template Text not used by [place] Assessments - Encounter Diagnoses This section includes the primary and secondary diagnoses documented for the Encounter. Date/Time Primary/Secondary Diagnosis Diagnosis Name Provider Source Jan 23, 2024 10:25 AM PRIMARY Major depressive disorder, single episode, unspecified CLEOPATRA HURTADO [facility] Jan 23, 2024 10:25 AM SECONDARY Post-traumatic stress disorder, chronic CLEOPATRA HURTADO [facility] Plan of Treatment: Future Appointments [...] Appointment Type Appointme nt Facility Name Jan 24, 2024 08:15 AM [facility] Jan 29, 2024 11:00 AM [facility] Jan 29, 2024 03:00 PM AMBULATORY - PS[facility]CHIATRY [facility] Feb 04, 2024 11:00 AM AM[facility] Feb 11, 2024 11:00 AM AM[facility] Feb 18, 2024 11:00 AM AM[facility] Feb 19, 2024 03:00 PM AM[facility]ULATORY - [facility]RY [facility] Feb 25, 2024 11:00 AM AMBULATORY [...] 25, 2024 09:00 AM AMBULATORY - PSYCHIATRY [facility] Apr 05, 2024 08:30 AM [facility] Apr 09, 2024 01:00 PM AMBULATORY - [facility]ATRY [facility] Apr 09, 2024 02:30 PM AMBULATORY - PSYCHIATRY [facility] Apr 12, 2024 09:30 AM [facility] Apr 19, 2024 09:00 AM AMBULATORY - MEDICINE [facility] Apr 20, 2024 01:00 PM AMBULATORY - PSYCHIATRY [facility] Apr 26, 2024 09:30 AM AM[facility]ORY [facility] Active, Pending, and Scheduled Orders [...] Order SALICYLATE SERUM STAT SP [facility] Social History: Smoking Status (Most current) and Tobacco Use (All prior to encounter date) This section includes the most current, and the historical, smoking and tobacco- related health factors from the [place] facility where the Encounter took place. Current Smoking Status This section includes the most current smoking, or tobacco-related health factor, from the [place] facility where the Encounter took place. Date/Time Current Smoking Status Comment Facil ity Jan 05, 2024 12:00 PM VA-TOBACCO FORMER USER [facility] Tobacco Use History This section includes a history of the smoking, or tobacco-related health factors, that were collected on or before the date of the Encounter. The data comes from the [place] facility where the Encounter took place. Date/Time Smoking Status/Tobacco Use Comment F acility Jan 05, 2024 12:00 PM [place]-TOBACCO QUIT 5 TO < 15 YRS [facility] Advance Directives: All historical and current Section Date Range: From patient's date of to the date document was created. This section includes ALL of a patient's completed or amended [place] Advance and Rescinded Directives. The entries below indicate that a directive exists for the patient, but an actual copy is not included with this document. The data comes from all [place] facilities. Date Advance Directives Provider Source Jan 05, 2024 ADVANCE DIRECTIVE DISCUSSION SHAHID HURTADO [facility] Encounter Notes: All associated encounter notes This section contains the clinical notes associated to the Encounter. Date/Time Encounter Note(s) Provider Source Jan 23, 2024 08:45 AM MENTAL HEALTH GROU P COUNSELING NOTE: LOCAL TITLE: MH GROUP NOTE STANDARD TITLE: MENTAL HEALTH GROUP COUNSELING NOTE DATE OF NOTE: JAN 23, 2024@08:45 ENTRY DATE: JAN 23, 2024@10:18:51 AUTHOR: GEORGINA HURTADO EXP COSIGNER: URGENCY: STATUS: COMPLETED MH GROUP NOTE Has ADDENDA KENO WRITER/RUNNER: FRANCESCA Wesley DATE OF GROUP: 01/23/2024 TIME OF GROUP: Community meeting [id number]; MAP Group [id number] LENGTH OF GROUP: 60 minutes NUMBER IN ATTENDANCE: 3 MODALITY: Group Psychotherapy The first 15 min of the group consisted of the community meeting with veterans and [facility] staff present TOPIC: My Action Plan/MAP Group Session 3/4 Detours and Road Blocks & Unscheduled Maintenance Plan MEDIUM: Group Discussion: Veterans identified individual early warning signs (Detours and Road Blocks) of when things are starting to break down. OBJECTIVES: 1. Veterans will review the basics of the MAP and will identify Detours and Roadblocks (early warning signs) that occur before they reach the level when things are breaking down. 2. Veterans will identify tools from their Toolbox that are appropriate for when they begin to have early warning signs and develop an Unscheduled Maintenance Plan to deal with these. Patient Education: Readiness to learn: Attended session, [...] veterans individualized treatment plan upon entry to [facility]. [place] is continuing with [facility] programming at this time. Also refer to suicide risk assessment completed upon entrance into [facility] program for comprehensive description of acute and chronic risk level. No change in risk at this time. Plan: Continue to attend [facility] to work toward goals. ATTENDED: full session DSM-5 DIAGNOSIS: MDD, rec; PTSD r/t MST /lilia/ FRANCESCA DEMPSEY CLINICAL TECHNICAL AID Signed: 01/23/2024 10:26 01/23/2024 ADDENDUM STATUS: COMPLETED Care provided: Follow up care covered under the COMPACT Act of 2019 Section 201. Supporting clinical documentation: [facility] consult & [facility] notes /lilia/ FRANCESCA DEMPSEY CLINICAL TECHNICAL AID Signed: 01/23/2024 10:55 GEORGINA HURTADO [facility]
--- OUTSIDE RECORDS SUMMARY | 2024-05-04 07:54 | XMS_ITS ---
Author Name [facility] [place] Organization [facility] [place] [place] Address [address] [place] [address] Care Team Providers Care Starch Dumper Name Role Phone NILA SALMON Primary Care Provider Unavailabl e Selected Encounter This section includes the information on record at [place] for the Encounter. Date/Time Encounter Type Encounter Description Reason Provider Source Jan 29, 2024 11:00 [facility] - IND ICD-10-CM F43.12 Post-traumatic stress disorder, chronic NIMA LOPEZ Lorie Encounter Template Text not used by [place] Assessments - Encounter Diagnoses This section includes the primary and secondary diagnoses documented for the Encounter. Date/Time Primary/Secondary Diagnosis Diagnosis Name Provider Source Jan 29, 2024 01:48 PM PRIMARY Post-traumatic stress disorder, chronic [facility] Jan 29, 2024 01:48 PM SECONDARY Suicidal ideations SCOTT LOPEZ [facility] Plan of Treatment: Future Appointments (+ 6 [...] 20 appointments. The data comes from all [place] treatment facilities. Appointment Date/Time Appointment Type Appointme nt Facility Name Feb 04, 2024 11:00 AM AMBULATORY - PS[facility]IATRY [facility] Feb 11, 2024 11:00 AM AMBULATORY - [facility]ATRY [facility] Feb 18, 2024 11:00 AM AMBULATORY - [facility]IATRY [facility] Feb 19, 2024 03:00 PM AMBULATORY - PSYCHIATRY [facility] Feb 25, 2024 11:00 AM AMBULATORY - PS[facility]IATRY [facility] Mar 02, 2024 11:00 AM AMBULATORY - [facility] Mar 03, 2024 10:30 AM AMBULATORY - [facility] Mar 10, 2024 11:00 AM AMBULATORY - [facility]RY [facility] Mar 24, 2024 11:00 AM AMBULATORY - [facility]RY [facility] Mar 25, 2024 09:00 AM AMBULATORY - PSYCHIATRY [facility] Apr 05, 2024 08:30 AM AMBULATORY - PS[facility]CHIATRY [facility] [place] Apr 09, 2024 01:00 PM AMBULATORY - PSYCHIATRY [facility] Apr 09, 2024 02:30 PM AMBULATORY - PSYCHIATRY [facility] Apr 12, 2024 09:30 AM AMBULATORY - [facility]IATRY [facility] [place] [facility] Apr 19, 2024 09:00 AM AMBULATORY - MEDICINE LEEANN RAW[facility] Apr 20, 2024 01:00 PM AMBULATORY - PSYCHIATRY [facility] Apr 26, 2024 09:30 AM AMBULATORY - [facility]IATRY [facility] [place] [facility] Apr 27, 2024 01:00 PM AMBULATORY - PSYCHIATRY [facility] Apr 28, 2024 01:00 PM AMBULATORY - [facility]IATRY [facility] [place] [facility] May 05, 2024 05:00 PM AMBULATORY - NONE [facility] Active, Pending, and Scheduled Orders This section includes a listing of several types of active, pending, and scheduled orders, including clinic medications orders, diagnostic test orders, procedure orders and consult orders; where the start date of the order is 45 days before the date of the Encounter or 45 days after the date of theEncounter. The data comes from all [place] treatment [facility]. Test Date/Time Test Type Test Details Facility Name Dec 21, 2023 04:56 PM Laboratory - Chemi stry Order SALICYLATE SERUM STAT SP [facility] Social History: Smoking Status (Most current) [...] Facil ity Mar 27, 2023 09:00 AM [place]-TOBACCO FORMER USER [place] [facility] [place] [facility] Tobacco Use History This section includes a history of the smoking, or tobacco-related health factors, that were collected on or before the date of the Encounter. The data comes from the [place] facility where the Encounter took place. Date/Time Smoking Status/Tobacco Use Comment F acility Mar 27, 2023 09:00 AM [place]-TOBACCO QUIT 5 TO < 15 YRS [place] [facility] [place] Advance Directives: All historical and current Section [...] 05, 2024 ADVANCE DIRECTIVE DISCUSSION SHAHID HURTADO [facility] Encounter Notes: All associated encounter notes This section contains the clinical notes associated to the Encounter. 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 She is capable of fulfilling an administrative role or other similar duty. /lilia/ TROY Grace Runner Out Signed: 01/29/2024 13:55 Receipt Acknowledged By: 02/02/2024 15:36 /lilia/ TALI MARCUM REGISTERED NURSE 01/30/2024 14:11 /es/ NILA SALMON DNP,GOLF COACH,ARDMS --- Original Document --- 01/29/24 MH PROGRESS NOTE: OUTPATIENT MENTAL HEALTH PROGRESS NOTE Clinic: [facility] Date: 01/29/2024 Length of Session: 50 minutes Method of Interface: [facility] Session #25 Author: MERNA Trevino, TROY Visit conducted by synchronous telehealth. Mcalpin verbal consent obtained. Location/emergency number confirmed. Environment surveyed and all participants identified. Virtual conference room locked. Subjective: Met with Quintin Zavala for individual therapy session. She reported that she has been feeling better and she shared the skills and insights she learned in her time in [facility]. She identified the decision on when to return to work as her primary objective for today. She shared some anxiety, about the unpredictability of the job and her potential reaction as well as some anxiety about the anxiety. She acknowledged that she already knows what she needs to do but found it helpful to review and receive validation. 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 She described apprehension about any work that would be patient- facing to include case reviews as she feels unsteady in her coping ability at this time. 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 She noted that other difficult call come up when she thinks about the most recent and about the job related anxiety. Nita described continued difficulty with sleep and anxiety, though noted that the medications have been helpful despite causing drowsiness. Nita shared that she set a firm boundary with her mom, asking for no contact at this time. She was able to reinforce it when her mom reached out again though admitted that it was difficult. She reflected on what she learned related to her upbringing and the validation she received in groups, recognizing the importance of advocating for herself in that relationship. Emg Technician congratulated her on the application of boundaries and reinforced her strength and the good work she ahs been doing. Objective: Appearance: Well-groomed, appropriate eye contact Speech: Regular rate/rhythm/volume Motor: Normal Spontaneous movement Mood: Euthymic Affect: Appropriate, full range, tearful Thought Content: No Suicidal Ideation/No Homicidal Ideation No Delusions No Hallucinations Thought Process: Linear/Logical/Goal Oriented Judgement: Good Insight: Good Impulse Control: Good Oriented to Person/Place/Time/Reason for Appointment Assessment: was engaged and receptive throughout. She has benefitted from the intensive care she received. We discussed referrals to Voc Rehab and for N-IRT. We agreed that a referral for N-IRT will be most appropriate as our sessions can be used for more acute issues. Risk factors include history of SI/suicide attempt, insomnia, relationship issues, race. Protective factors include responsibility to others, children in the home, hope for the future, desire to live, help seeking behaviors, positive therapeutic alliance. Current risk assessment: Low acute, Intermediate chronic Diagnostic Evaluation: PTSD, chronic Plan: RTC in one week Adding her PCP Nila Salmon as has requested a return to work form filled out for her worker's compensation claim which she sent directly to [facility]. /lliia/ TROY Grace Runner Out Signed: 01/29/2024 13:48 01/29/2024 ADDENDUM STATUS: COMPLETED Care provided: Follow up care covered under the COMPACT Act of 2019 Section 201. Supporting clinical documentation: See above note /lilia/ TROY Grace Runner Out Signed: 01/29/2024 15:55 02/02/2024 ADDENDUM STATUS: UNSIGNED You may not VIEW this UNSIGNED Addendum. MILI LOPEZ [facility] Jan 29, 2024 11:00 AM MENTAL HEALTH NOTE : LOCAL TITLE: PROGRESS NOTE STANDARD TITLE: MENTAL HEALTH NOTE DATE OF NOTE: JAN 29, 2024@11:00 ENTRY DATE: JAN 29, 2024@13:47:33 AUTHOR: MILI LOPEZ COSIGNER: URGENCY: STATUS: COMPLETED MH PROGRESS NOTE Has ADDENDA OUTPATIENT MENTAL HEALTH PROGRESS NOTE Clinic: [facility] Date: 01/29/2024 Length of Session: 50 minutes Method of Interface: [facility] Session #25 Author: MERNA Trevino, TROY Visit conducted by synchronous telehealth. Mcalpin verbal consent obtained. Location/emergency number confirmed. Environment surveyed and all participants identified. Virtual conference room locked. Subjective: Met with Quintin Zavala for individual therapy session. She reported that she has been feeling better and she shared the skills and insights she learned in her time in [facility]. She identified the decision on when to return to work as her primary objective for today. She shared some anxiety, about the unpredictability of the job and her potential reaction as well as some anxiety about the anxiety. She acknowledged that she already knows what she needs to do but found it helpful to review and receive validation. 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 She described apprehension about any work that would be patient- facing to include case reviews as she feels unsteady in her coping ability at this time. 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 She noted that other difficult call come up when she thinks about the most recent and about the job related anxiety. described continued difficulty with sleep and anxiety, though noted that the medications have been helpful despite causing drowsiness. Mcalpin shared that she set a firm boundary with her mom, asking for no contact at this time. She was able to reinforce it when her mom reached out again though admitted that it was difficult. She reflected on what she learned related to her upbringing and the validation she received in groups, recognizing the importance of advocating for herself in that relationship. Emg Technician congratulated her on the application of boundaries and reinforced her strength and the good work she ahs been doing. Objective: Appearance: Well-groomed, appropriate eye contact Speech: Regular rate/rhythm/volume Motor: Normal Spontaneous movement Mood: Euthymic Affect: Appropriate, full range, tearful Thought Content: No Suicidal Ideation/No Homicidal Ideation No Delusions No Hallucinations Thought Process: Linear/Logical/Goal Oriented Judgement: Good Insight: Good Impulse Control: Good Oriented to Person/Place/Time/Reason for Appointment Assessment: Mcalpin was engaged and receptive throughout. She has benefitted from the intensive care she received. We discussed referrals to Voc Rehab and for N-IRT. We agreed that a referral for N-IRT will be most appropriate as our sessions can be used for more acute issues. Risk factors include history of SI/suicide attempt, insomnia, relationship issues, race. Protective factors include responsibility to others, children in the home, hope for the future, desire to live, help seeking behaviors, positive therapeutic alliance. Current risk assessment: Low acute, Intermediate chronic Diagnostic Evaluation: PTSD, chronic Plan: RTC in one week Adding her PCP Nila Salmon as has requested a return to work form filled out for her worker's compensation claim which she sent directly to [facility]. 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 She is capable of fulfilling an administrative role or other similar duty. /lilia/ TROY Grace Runner Out Signed: 01/29/2024 13:55 Receipt Acknowledged By: 02/02/2024 15:36 /lilia/ TALI MARCUM REGISTERED NURSE 01/30/2024 14:11 /lilia/ NILA SALMON DNP,GOLF COACH,ARDMS 01/29/2024 ADDENDUM STATUS: COMPLETED Care provided: Follow up care covered under the COMPACT Act of 2020 Section 201. Supporting clinical documentation: See above note /TROY Serrano Runner Out Signed: 01/29/2024 15:55 02/02/2024 ADDENDUM STATUS: COMPLETED Pact will watch for form to come from [facility]. /lilia/ TALI MARCUM REGISTERED NURSE Signed: 02/02/2024 15:37 MILI LOPEZ OC
--- OUTSIDE RECORDS SUMMARY | 2024-05-04 07:54 | XMS_ITS | Encounter Summary ---
Author Name [facility] [place] Organization [place] Address [address] [place] [address] Care Team Providers Care Leather Cutter Name Role Phone EMIR GRACIA Primary Care Provider Unavailabl e Selected Encounter This section includes the information on record at [place] for the Encounter. Date/Time Encounter Type Encounter Description Reason Provider Source Apr 30, 2024 11:47 AM Outpatient Encounter EVENT (HISTORICAL) YOAN KESSLER Encounter Template Text not used by [place] [...] Appointment Type Appointme nt Facility Name May 05, 2024 05:00 PM AMBULATORY - NONE [place] [facility] May 11, 2024 09:00 AM AMBULATORY - PS[facility]CHIATRY [facility] May 11, 2024 01:00 PM AMBULATORY - PSYCHIATRY [facility] May 18, 2024 11:00 AM AMBULATORY - PSYCHIATRY [facility] May 18, 2024 01:00 PM [facility] May 24, 2024 08:30 AM [facility] [place] [facility] Active, Pending, and Scheduled Orders [...] Order CARDIAC EC HO OUTPT-ALL SITES Cons [employer] [facility] Apr 19, 2024 10:08 AM Consult Order CARDIAC EC HO-SPECIAL PROCEDURE [employer] [facility] Apr 19, 2024 10:47 AM Consult Order COMMUNITY CARE-NUCLEAR MEDICINE Cons [employer] [facility] Lab Results: +/- 30 days of [...] Range Comment Apr 19, 2024 10:21 AM [facility] HEMOGLOBIN A1C Specimen Type: BLOOD Comment: [...] Apr 19, 2024 09:46 AM Reporting Lab: [facility] [id number] Performing Lab: [facility] [id number] HEMOGLOBIN A1C 4.9 4.0-6.0 Apr 19, 2024 10:21 AM [facility] TSH W/REFLEX TO FREE T4 Specimen Type: PLASMA Comment: Elevated triglyceride result from a non-fasting specimen should be interpreted with caution. A fasting panel is recommended for accurate triglycerides when trigs are >200 from a non-fasting specimen. Ordering Provider: EMIR GRACIA Report Released Date/Time: Apr 19, 2024 09:46 AM Reporting Lab: [facility] [id number] Performing Lab: [facility] [id number] TSH 0.69 u[IU]/mL 0.35-4.94 Apr 19, 2024 10:21 AM [employer] LIPID PANEL,NON-FASTING Specimen Type: PLASMA Comment: Elevated triglyceride result from a non-fasting specimen should be interpreted with caution. A fasting panel is recommended for accurate triglycerides when trigs are >200 from a non-fasting specimen. Ordering Provider: EMIR GRACIA Report Released Date/Time: Apr 19, 2024 09:46 AM Reporting Lab: [facility] [id number] Performing Lab: [facility] [id number] CHOLESTEROL 263 mg/dL H <199 .HDL 38 mg/dL L >50 LDL CALCULATION 151 mg/dL H <99 VLDL CALCULATION 74 mg/dL H <29 NON HDL CHOLESTEROL 225 mg/dL H <129 TRIG(NON FASTING) 368 mg/dL H <149 Apr 19, 2024 10:21 AM [employer] ANTI-HEP C(EIA) Specimen Type: SERUM No comment entered. Ordering Provider: EMIR GRACIA Report Released Date/Time: Apr 19, 2024 10:00 AM Reporting Lab: [facility] [id number] Performing Lab: [facility] [phone] ANTI-HEP C(EIA) NEGATIVE NEGATIVE Apr 19, 2024 10:21 AM [employer] COMPREHENSIVE METABOLIC PANEL+MG Specimen Type: PLASMA Comment: Elevated triglyceride result from a non-fasting specimen should be interpreted with caution. A fasting panel is recommended for accurate triglycerides when trigs are >200 from a non-fasting specimen. Ordering Provider: EMIR GRACIA Report Released Date/Time: Apr 19, 2024 09:46 AM Reporting Lab: [facility] [phone] Performing Lab: [facility] [id number] CREATININE 1.0 mg/dL 0.5-1.0 UREA NITROGEN 10 [...] Apr 19, 2024 09:46 AM Reporting Lab: [facility] [id number] Performing Lab: [facility] [id number] WBC 5.5 4.0-11.0 RBC 4.74 4.00-5.40 HGB [...] place. Date/Time Current Smoking Status Comment Facil [facility] Jan 05, 2024 12:00 PM [place]-TOBACCO FORMER USER [facility] Tobacco Use History This section includes a history of the smoking, or tobacco-related health factors, that were collected on or before the date of the Encounter. The data comes from the [place] facility where the Encounter took place. Date/Time Smoking Status/Tobacco Use Comment F acility Jan 05, 2024 12:00 PM VA-TOBACCO QUIT 5 TO < 15 YRS [facility] Advance Directives: All historical and [...] 05, 2024 ADVANCE DIRECTIVE DISCUSSION SHAHID HURTADO [facility] Radiology Reports: +/- 30 days of the [...] the Encounter. The data comes from all [place] treatment facilities. Date/Time Radiology Report Provider Source Apr 19, 2024 09:48 AM CHEST 2 VIEWS PA A ND LAT: BILLIE ZAVALA [id number] Exm Date: APR 19, 2024@09:48 Req Phys: EMIR GRCAIA Pat Loc: K PACT DIAMONDS (Req'g Loc) Img Loc: [facility] RADIOLOGY Service: Unknown Screen: [place] [address] (Case [id number] COMPLETE) CHEST 2 VIEWS PA AND LAT (RAD Detailed) CPT:11687 Reason for Study: chest pain Clinical History: [place] IS NOT under investigation for COVID-19 or is COVID-19 negative chest pain Responsible provider name and phone number to notify for critical findings if other than user placing the order and pager listed below: User placing orders pager: LAST CREATININE 1.0 (12/21/23) Report Status: Verified Date Reported: APR 19, 2024 Date Verified: APR 19, 2024 Environmental Emergencies Assistant E-Sig:/ES/PIA VARGAS MD, FACR, CCD Report: EXAMINATION: CHEST 2 VIEWS PA AND LAT 04/19/2024 9:48 AM INDICATION: chest pain COMPARISON: None. FINDINGS: The cardiac silhouette and pulmonary vasculature are within normal limits. The lungs appear clear of infiltrate. No pleural fluid identified. Impression: No active pulmonary disease visualized. Primary Interpreting Staff: PIA VARGAS MD, FACR, STAFF RADIOLOGIST (Environmental Emergencies Assistant) /BSF PIA VARGAS [facility]
--- OUTSIDE RECORDS SUMMARY | 2024-05-04 07:54 | XMS_ITS | Encounter Summary ---
Author Name [facility] [place] [facility] [place] Organization [facility] [place] [facility] [place] Address [address] [place] [address] Care Team Providers Care Case Management Rn Name Role Phone EMIR GRACIA Primary Care Provider Unavailabl e Selected Encounter This section includes the information on record at [place] for the Encounter. Date/Time Encounter Type Encounter Description Reason Pro vider Source Apr 30, 2024 11:00 AM Outpatient Encounter TELEPHONE PRIMARY CARE IHE Encounter Template Text not used by [place] Plan of Treatment: Future Appointments (+ 6 months) and Future Tests (+/- 45 days) The Plan of Treatment section includes future care activities for the patient from all [place] treatmentfacilities. This section includes future appointments and future orders which are active, pending or scheduled. Future Appointments This section includes appointments that were scheduled to occur 6 months from the date of the Encounter, up to a maximum of 20 appointments. The data comes from all [place] treatment facilities. Appointment Date/Time Appointment Type Appointme nt Facility Name May 05, 2024 05:00 PM AMBULATORY - NONE [facility] May 11, 2024 09:00 AM AMBULATORY - PSYCHIATRY [facility] May 11, 2024 01:00 PM AMBULATORY - PSYCHIATRY TW IN [facility] May 18, 2024 11:00 AM AMBULATORY - PSYCHIATRY TW IN [facility] May 18, 2024 01:00 PM AMBULATORY - MEDICINE [place] [facility] May 24, 2024 08:30 AM [facility] Active, Pending, and Scheduled Orders This section includes a listing of several types of active, pending, and scheduled orders, including clinic medications orders, diagnostic test orders, procedure orders and consult orders; where the start date of the order is 45 days before the date of the Encounter or 45 days after the date of theEncounter. The data comes from all [place] treatment facilities. Test Date/Time Test Type Test Details Facility Name Apr 19, 2024 09:46 AM Consult Order CARDIAC EC HO OUTPT-ALL SITES Cons Director [employer]'s [employer] [facility] Apr 19, 2024 10:08 AM Consult Order CARDIAC EC HO-SPECIAL PROCEDURE Cons Director Workers Compensation's [facility] Apr 19, 2024 10:47 AM Consult Order COMMUNITY CARE-NUCLEAR MEDICINE Cons Director Workers Compensation's Choice [facility] Lab Results: +/- 30 days of the encounter This section includes the Chemistry and Hematology Lab Results on record with [place] for the patient. Radiology Reports and Pathology Reports are provided separately, in subsequent sections. Lab Results This section contains the Chemistry/Hematology Results that were resulted 30 days before or 30 daysafter the date of the Encounter. Date/Time Source Result Type Result - Unit Interpretation Reference Range Comment Apr 19, 2024 10:21 AM [facility] HEMOGLOBIN A1C Specimen Type: BLOOD Comment: [...] Apr 19, 2024 09:46 AM Reporting Lab: [facility] [id number] Performing Lab: [facility] [id number] HEMOGLOBIN A1C 4.9 4.0-6.0 Apr 19, 2024 10:21 AM [facility] TSH W/REFLEX TO FREE T4 Specimen Type: PLASMA Comment: Elevated triglyceride result from a non-fasting specimen should be interpreted with caution. A fasting panel is recommended for accurate triglycerides when trigs are >200 from a non-fasting specimen. Ordering Provider: EMIR GRACIA Report Released Date/Time: Apr 19, 2024 09:46 AM Reporting Lab: [facility] [id number] Performing Lab: [facility] [id number] TSH 0.69 u[IU]/mL 0.35-4.94 Apr 19, 2024 10:21 AM [facility] LIPID PANEL,NON-FASTING Specimen Type: PLASMA Comment: Elevated triglyceride result from a non-fasting specimen should be interpreted with caution. A fasting panel is recommended for accurate triglycerides when trigs are >200 from a non-fasting specimen. Ordering Provider: EMIR GRACIA Report Released Date/Time: Apr 19, 2024 09:46 AM Reporting Lab: [facility] [id number] Performing Lab: [facility] [id number] CHOLESTEROL 263 mg/dL H <199 .HDL 38 mg/dL L >50 LDL CALCULATION 151 mg/dL H <99 VLDL CALCULATION 74 mg/dL H <29 NON HDL CHOLESTEROL 225 mg/dL H <129 TRIG(NON FASTING) 368 mg/dL H <149 Apr 19, 2024 10:21 AM [employer] ANTI-HEP C(EIA) Specimen Type: SERUM No comment entered. Ordering Provider: EMIR GRACIA Report Released Date/Time: Apr 19, 2024 10:00 AM Reporting Lab: [facility] [id number] Performing Lab: [facility] [id number] ANTI-HEP C(EIA) NEGATIVE NEGATIVE Apr 19, 2024 10:21 AM [facility] COMPREHENSIVE METABOLIC PANEL+MG Specimen Type: PLASMA Comment: Elevated triglyceride result from a non-fasting specimen should be interpreted with caution. A fasting panel is recommended for accurate triglycerides when trigs are >200 from a non-fasting specimen. Ordering Provider: EMIR GRACIA Report Released Date/Time: Apr 19, 2024 09:46 AM Reporting Lab: [facility] [id number] Performing Lab: [facility] [id number] CREATININE 1.0 mg/dL 0.5-1.0 UREA NITROGEN 10 [...] >60 Apr 19, 2024 10:21 AM [facility] CBC Specimen Type: BLOOD No comment entered. Ordering Provider: EMIR GRACIA Report Released Date/Time: Apr 19, 2024 09:46 AM Reporting Lab: [facility] [id number] Performing Lab: [facility] [id number] WBC 5.5 4.0-11.0 RBC 4.74 4.00-5.40 HGB [...] smoking, or tobacco-related health factor, from the [facility] where the Encounter took place. Date/Time Current Smoking Status Comment Facil gisselle Jan 05, 2024 12:00 PM VA-TOBACCO FORMER USER [facility] Tobacco Use History This section includes a history of the smoking, or tobacco-related health factors, that were collected on or before the date of the Encounter. The data comes from the [place] facility where the Encounter took place. Date/Time Smoking Status/Tobacco Use Comment F acility Jan 05, 2024 12:00 PM VA-TOBACCO QUIT 5 TO < 15 YRS [facility] Advance Directives: All historical and current Section Date Range: From patient's date of to the date document was created. This section includes ALL of a patient's completed or amended [place] Advance and Rescinded Directives. The entries below indicate that a directive exists for the patient, but an actual copy is not included with this document. The data comes from all [place] facilities. Date Advance Directives Provider Source Jan 05, 2024 ADVANCE DIRECTIVE DISCUSSION SHAHID HURTADO [facility] Radiology Reports: +/- 30 days of [...] the Encounter. The data comes from all [place] treatment facilities. Date/Time Radiology Report Provider Source Apr 19, 2024 09:48 AM CHEST 2 VIEWS PA A ND LAT: BILLIE ZAVALA [id number] -[id number] F Exm Date: APR 19, 2024@09:48 Req Phys: EMIR GRACIA Loc: K PACT DIAMONDS (Req'g Loc) Img Loc: [facility] RADIOLOGY Service: Unknown Screen: [place] [address] (Case [id number] COMPLETE) CHEST 2 VIEWS PA AND LAT (RAD Detailed) CPT:79880 Reason for Study: chest pain Clinical History: IS NOT under investigation for COVID-19 or is COVID-19 negative chest pain Responsible provider name and phone number to notify for critical findings if other than user placing the order and pager listed below: User placing orders pager: LAST CREATININE 1.0 (12/21/23) Report Status: Verified Date Reported: APR 19, 2024 Date Verified: APR 19, 2024 Video Camera Operator E-Sig:/ES/PIA VARGAS MD, FACR, CCD Report: EXAMINATION: CHEST 2 VIEWS PA AND LAT 04/19/2024 9:48 AM INDICATION: chest pain COMPARISON: None. FINDINGS: The cardiac silhouette and pulmonary vasculature are within normal limits. The lungs appear clear of infiltrate. No pleural fluid identified. Impression: No active pulmonary disease visualized. Primary Interpreting Staff: PIA VARGAS MD, FACR, STAFF RADIOLOGIST (Video Camera Operator) /BSF PIA VARGAS [facility] Encounter Notes: All associated encounter notes This section contains the clinical notes associated to the Encounter. Date/Time Encounter Note(s) Provider Source Apr 30, 2024 11:00 AM SOCIAL WORK CONSUL T: LOCAL TITLE: SOCIAL WORK CONSULT STANDARD TITLE: SOCIAL WORK CONSULT DATE OF NOTE: APR 30, 2024@11:00 ENTRY DATE: APR 30, 2024@11:31:24 AUTHOR: YOAN KESSLER EXP COSIGNER: URGENCY: STATUS: COMPLETED Consult request: Homelessness/Food Insecurity Screen: In the past 2 months, have you been living in stable housing that you own, rent, or stay in as part of a household? No - Not living in stable housing. Where have you lived for MOST of the past 2 months? With Friend/Family Comment: with ex Would you like to be REFERRED to talk more about your housing situation? Patient agrees to referral What's the best way to reach you? How to reach: [phone] ADVANCE DIRECTIVE SCREENING: Does the patient wish to make any changes or revoke their current Advance Directive? Yes, a social work consult is being placed to assist the [place]. Social Work Intervention and Plan: Attempted to contact . Reached identified vm. LM inviting return call and indicated senior writer would also send Secure Message. PCSW remains available. /lilia/ FRANCESCA HAYES Sales And Service Officer Signed: 04/30/2024 11:48 YOAN KESSLER
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
--- OUTSIDE RECORDS SUMMARY | 2024-05-04 07:54 | XMS_ITS | Encounter Summary ---
Author Name [facility] ([place] Organization [facility] [place] Address [address] [place] [address] Care Team Providers Care Commutator Tester Name Role Phone BASIL EMIR Primary Care Provider Unavailabl e Selected Encounter This section includes the information on record at [place] for the Encounter. Date/Time Encounter Type Encounter Description Reason Provider Source Apr 28, 2024 01:00 PM OFFICE O/P EST HI 40 [facility] - IND ICD-10-CM F32.9 Major depressive disorder, single episode, unspecified LUCA BEE Encounter Template Text not used by [place] Assessments - Encounter Diagnoses This section includes the primary and secondary diagnoses documented for the Encounter. Date/Time Primary/Secondary Diagnosis Diagnosis Name Provider Source Apr 28, 2024 12:08 PM PRIMARY Major depressive disorder, single episode, unspecified LUCA BEE [facility] Apr 28, 2024 12:08 PM SECONDARY Other specified problems related to primary support group LUCA BEE Apr 28, 2024 12:08 PM SECONDARY Post-traumatic stress disorder, chronic LUCA BEE [facility] Apr 28, 2024 12:08 PM SECONDARY Suicidal ideations LUCA BEE Plan of Treatment: Future Appointments (+ 6 months) and Future Tests (+/- 45 days) The Plan of Treatment section includes future care activities for the [facility]. This section includes future appointments and [...] 2024 05:00 PM AMBULATORY - NONE [place] [facility] [facility] May 11, 2024 09:00 AM AMBULATORY - [place]CHIATRY [place] [facility] May 11, 2024 01:00 PM AMBULATORY - PSYCHIATRY TW IN [facility] May 18, 2024 11:00 AM AMBULATORY - PSYCHIATRY TW IN [facility] May 18, 2024 01:00 PM [facility] May 24, 2024 08:30 AM [facility] [place] [facility] Active, Pending, and Scheduled Orders This [...] Order CARDIAC EC HO OUTPT-ALL SITES Cons Digital Account Coordinator's Choice [facility] Apr 19, 2024 10:08 AM Consult Order CARDIAC EC HO-SPECIAL PROCEDURE Cons Digital Account Coordinator's Choice [facility] Apr 19, 2024 10:47 AM Consult Order COMMUNITY CARE-NUCLEAR MEDICINE Cons Digital Account Coordinator's Choice [facility] Lab Results: +/- 30 days [...] Range Comment Apr 19, 2024 10:21 AM [facility] HEMOGLOBIN A1C Specimen Type: BLOOD [...] Apr 19, 2024 09:46 AM Reporting Lab: [facility] [id number] Performing Lab: [place] [id number] HEMOGLOBIN A1C 4.9 4.0-6.0 Apr 19, 2024 10:21 AM [facility] TSH W/REFLEX TO FREE T4 Specimen Type: PLASMA Comment: Elevated triglyceride result from a non-fasting specimen should be interpreted with caution. A fasting panel is recommended for accurate triglycerides when trigs are >200 from a non-fasting specimen. Ordering Provider: EMIR GRACIA Report Released Date/Time: Apr 19, 2024 09:46 AM Reporting Lab: [facility] [id number] Performing Lab: [facility] [id number] TSH 0.69 u[IU]/mL 0.35-4.94 Apr 19, 2024 10:21 AM [facility] [employer] LIPID PANEL,NON-FASTING Specimen Type: PLASMA Comment: Elevated triglyceride result from a non-fasting specimen should be interpreted with caution. A fasting panel is recommended for accurate triglycerides when trigs are >200 from a non-fasting specimen. Ordering Provider: EMIR GRACIA Report Released Date/Time: Apr 19, 2024 09:46 AM Reporting Lab: [facility] [id number] Performing Lab: [facility] [address] CHOLESTEROL 263 mg/dL H <199 .HDL 38 mg/dL L >50 LDL CALCULATION 151 mg/dL H <99 VLDL CALCULATION 74 mg/dL H <29 NON HDL CHOLESTEROL 225 mg/dL H <129 TRIG(NON FASTING) 368 mg/dL H <149 Apr 19, 2024 10:21 AM [facility] [employer] ANTI-HEP C(EIA) Specimen Type: SERUM No comment entered. Ordering Provider: EMIR GRACIA Report Released Date/Time: Apr 19, 2024 10:00 AM Reporting Lab: [facility] [phone] Performing Lab: [facility] [address] ANTI-HEP C(EIA) NEGATIVE NEGATIVE Apr 19, 2024 10:21 AM [facility] COMPREHENSIVE METABOLIC PANEL+MG Specimen Type: PLASMA Comment: Elevated triglyceride result from a non-fasting specimen should be interpreted with caution. A fasting panel is recommended for accurate triglycerides when trigs are >200 from a non-fasting specimen. Ordering Provider: EMIR GRACIA Report Released Date/Time: Apr 19, 2024 09:46 AM Reporting Lab: [facility] [id number] Performing Lab: [facility] [address] CREATININE 1.0 mg/dL 0.5-1.0 UREA NITROGEN 10 [...] >60 Apr 19, 2024 10:21 AM [facility]EE[facility] CBC Specimen Type: BLOOD No comment entered. Ordering Provider: EMIR GRACIA Report Released Date/Time: Apr 19, 2024 09:46 AM Reporting Lab: [facility] [id number] Performing Lab: [facility] [id number] WBC 5.5 4.0-11.0 RBC 4.74 4.00-5.40 HGB [...] Facil ity Mar 27, 2023 09:00 AM DC-TOBACCO FORMER USER [facility] Tobacco Use History This section includes a history of the smoking, or tobacco-related health factors, that were collected on or before the date of the Encounter. The data comes from the [place] facility where the Encounter took place. Date/Time Smoking Status/Tobacco Use Comment F acility Mar 27, 2023 09:00 AM DC-TOBACCO QUIT 5 TO < 15 YRS [facility] Advance Directives: All historical and [...] DIRECTIVE DISCUSSION SHAHID HURTADO [facility] Radiology Reports: +/- 30 days of [...] the Encounter. The data comes from all [place] treatment facilities. Date/Time Radiology Report Provider Source Apr 19, 2024 09:48 AM CHEST 2 VIEWS PA A ND LAT: BILLIE ZAVALA [id number] [phone] [id number] Exm Date: APR 19, 2024@09:48 Req Phys: EMIR GRACIA Loc: K PACT DIAMONDS (Req'g Loc) Img Loc: [facility] RADIOLOGY Service: Unknown Screen: [place] [address] (Case [id number] COMPLETE) CHEST 2 VIEWS PA AND LAT (RAD Detailed) CPT:90482 Reason for Study: chest pain Clinical History: [place] IS NOT under investigation for COVID-19 or is COVID-19 negative chest pain Responsible provider name and phone number to notify for critical findings if other than user placing the order and pager listed below: User placing orders pager: LAST CREATININE 1.0 (12/21/23) Report Status: Verified Date Reported: APR 19, 2024 Date Verified: APR 19, 2024 Electronic Scale Assembler And Tester E-Sig:/ES/PIA VARGAS MD, FACR, CCD Report: EXAMINATION: CHEST 2 VIEWS PA AND LAT 04/19/2024 9:48 AM INDICATION: chest pain COMPARISON: None. FINDINGS: The cardiac silhouette and pulmonary vasculature are within normal limits. The lungs appear clear of infiltrate. No pleural fluid identified. Impression: No active pulmonary disease visualized. Primary Interpreting Staff: PIA VARGAS MD, FACR, STAFF RADIOLOGIST (Electronic Scale Assembler And Tester) /PIA OLGUIN [facility] Encounter Notes: All associated encounter notes This section contains the clinical notes associated to the Encounter. Date/Time Encounter Note(s) Provider Source Apr 28, 2024 11:51 AM PSYCHIATRY E & M N OTE: LOCAL TITLE: PSYCHIATRIC EVALUATION & MANAGEMENT STANDARD TITLE: PSYCHIATRY E & M NOTE DATE OF NOTE: APR 28, 2024@11:51 ENTRY DATE: APR 28, 2024@11:51:23 AUTHOR: LUCA BEE EXP COSIGNER: URGENCY: STATUS: COMPLETED PSYCHIATRIC EVALUATION & MANAGEMENT Has ADDENDA PSYCHIATRY EVALUATION & MANAGMENT * 30 minute DC video connect visit for psychiatric evaluation and management to include 16 minutes of supportive psychotherapy. Consent: Patient provided consent for evaluation to be conducted via [employer] (VVC). Address: Confirmed location of address. Phone numbers: confirmed phone number as cell phone on file in case of emergencies or if call gets disconnected. Survey: All participants in the VVC call were identified and confirmed. Confidentiality was explained to patient. Lock: Once all the participants were confirmed, the virtual conference room was locked. CC: Depression and suicide ideation. HISTORY OF PRESENT ILLNESS: 43 year old [employer] , 10% service-connected for medical, with a history of chronic PTSD and recurrent major depressive disorder presenting to follow up. CC: Depressed mood and suicidal ideation. HISTORY OF PRESENT ILLNESS: 43 year old with a history of chronic pancreatitis, major depressive disorder, presenting to follow up. Mood: Things have gotten stagnant. Just falling back into not doing things like taking a shower and low motivation. She skipped her choir practice this week. She would like to discuss increasing the duloxetine. Friday she had clinical site visit to an [facility] and felt like her level of hypervigilence was severe that day and all night. She continues duloxetine 60 mg daily and quetiapine 200 mg daily and 300 mg at bedtime. Her quetiapine dose was reduced to 100 mg by clinical pharmacist Dr. Lowry due to SE of sedation but due to report of increased thoughts of suicide the quetiapine was subsequently increased back to 200 mg daily in early February. She reports suicidal ideation resolved. She remains on a high risk for suicide flag. 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 She requests that I fill out disablity paperwork for her and agrees to send them to [facility]. Copy forward: She is post psychiatric hospitalization 12/20-12/26/23 for major depressive disorder with suicidal ideation and a plan to overdose on opioids and lorazepam. During her hospitalization she was started on duloxetine and titrated to 60 mg daily. Due to symptoms of anxiety, racing thoughts, inability to sit still and insomnia she was started on quetiapine and titrated to 200 mg daily and 300 mg at bedtime. She subsequently participated in the psychiatric partial hospitalization program and was discharged on 01/23/24 (discharge diagnoses major depressive disorder and PTSD). 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 She states she was denied disability and had to terminate her lease. She is staying with her soon to be ex-. She reports their relationship is amicable and that he is overall supportive. PTSD: She started prazosin and titrated to 4 mg in Feb 2024. She reports nightmares decreased from 4-5 times per week to once a week. She is currently in individual therapy with Frances Cruz. She also started IRT. Psychosis: She reports a brief history of visual hallucinations after taking Compazine or promethazine in her teens. After her most recent hospitalization she said she had one brief experience of auditory hallucinations, chains clanking together and children's voices that lasted 1.5 hours. She also had a visual hallucination that the dryer and washing machine were purple. She has had several experiences of derealization and dissociation over the years; these typically occur when under stress. Substance abuse: Denies changes. She denies any history of alcohol abuse. She endorses a history of using edible marijuana Gummies. She states she has not used these since around November 2023. She denies any history of other illicit substance abuse. She denies a history of prescription medication abuse. No history of chemical dependency treatment. Medical: She is currently treated for chronic pancreatitis (due to sphincter of Oddi dysfunction)and receives prescriptions for lorazepam 0.5 mg (estimates she takes about once every 3-4 months), hydromorphone 4 mg (estimates she takes about once every 3-4 months) and clonidine 0.1 mg twice a day as needed for muscle pain when it tapering hydromorphone(estimates uses it about once every 3- 4 months). She has received the naloxone kit and is aware of how to use it. She is not sexually active and does still menstruate. She plans to use contraceptive protection if she does resume sexual activity in the future. Gambling: She does report a problematic history of gambling, primarily when she is on vacation cruises. She denies this has been a problematic behavior in the last several months due to not having money to ortega with. PSYCHIATRIC HISTORY Hospitalizations: [facility] 1997 for depression and suicide attempt (overdosing on college roommates medications). Most recent 12/20-12/26/23 for major depressive disorder with suicidal ideation and a plan to overdose on medications. Psychiatric partial hospitalization program discharged 01/23/24 Suicide attempts/SIB: 1997 overdosing college roommate medications. Medication trials: Reports most were ineffective and most were prescribed though [facility] primary [facility]. - citalopram 10mg (03/11/2008, 09/22/2009-11/28/2009) - clonidine 0.1mg PO BID (05/09/2023-CURRENT) --FOR PAIN - duloxetine up to 60mg (05/31/2021-CURRENT) - escitalopram 10mg (06/12/2020-03/28/2021) - hydroxyzine 25mg (05/2020 x1, 05/2021 x1, 03/27/2023 x1) - lorazepam 0.5mg (03/20/2014 x1, 09/09/2018, 06/12/2020x1, 05/31/2021x1, nonVA 01/2022-CURRENT) - naloxone issued 01/15/2024 - nicotine gum 2mg (12/29/2023-CURRENT) - prochlorperazine (confusions, hallucinations) - quetiapine up to 500mg/day (12/29/2023-CURRENT) - trazodone 50mg PO QHS for sleep (12/29/2023-CURRENT) - sertraline (details unknown) - paroxetine (details unknown) Antipsychotics: Only quetiapine. Mood stabilators: None. TCAs/MAOIs: None TMS/ECT: None Therapy: Currently active. Access to firearms: Her soon-to-be ex- does have firearms but reports he moved them to an offsite storage. Otherwise she herself denies owning firearms. SOCIAL & FAMILY HISTORY: The patient is in the process of . She has a teenage son. Maternal bipolar depression and brother with cocaine abuse. Two siblings with mood disorders. Denies known FH of suicide attempts. SERVICE: See database. Service Branch Service # Entered Discharge [facility] SEP 24, 2006 FEB 12, 2007 HONORABLE PAST MEDICAL HISTORY Cancer cervix screening status (SCT 2438Chronic idiopathic urticaria (SCT 959687830) Family social history (SCT 780705583) Generalized anxiety disorder (SCT 05474582) Major depressive disorder (SCT 696457266Onduorl of post-traumatic stress disorder (SCT 967303942905105) Hyperlipidemia (SCT 37192748) Dysfunction of sphincter of Oddi (SCT 647294241) Posttraumatic stress disorder (SCT 45941Tu significant change since previous mammogram (SCT 895208571) MEDICATIONS Active Outpatient Medications (excluding Supplies): Outpatient Medications Status === 1) ALBUTEROL 90MCG (CFC-F) 200D ORAL INHL INHALE 1 PUFF ACTIVE BY INHALATION FOUR TIMES A DAY NEEDED FOR SHORTNESS OF BREATH 2) ATORVASTATIN CALCIUM 40MG TAB TAKE ONE TABLET BY ACTIVE (S) MOUTH AT BEDTIME FOR CHOLESTEROL 3) CLONIDINE HCL 0.1MG TAB TAKE ONE TABLET BY MOUTH ACTIVE TWICE A DAY NEEDED FOR PAIN 4) DICYCLOMINE HCL 10MG CAP TAKE ONE CAPSULE BY MOUTH ACTIVE THREE TIMES A DAY NEEDED FOR PAIN 5) EPINEPHRINE (EQV-EPI-PEN) 0.3MG/0.3ML INJECT 1 PEN ACTIVE DIRECTED NEEDED FOR ALLERGIC REACTION 6) FEXOFENADINE HCL 180MG TAB TAKE ONE TABLET BY MOUTH ACTIVE EVERY MORNING FOR ALLERGIES 7) NALOXONE HCL 4MG/SPRAY SOLN NASAL SPRAY SPRAY 1 DOSE ACTIVE IN ONE NOSTRIL DIRECTED FOR UNRESPONSIVENESS THEN CALL 911 - IF NO CHANGE IN 2-3 MINUTES, GIVE SECOND DOSE IN OPPOSITE NOSTRIL 8) NICOTINE 2MG GUM CHEW 1 PIECE IN MOUTH EVERY HOUR ACTIVE NEEDED TO QUIT TOBACCO 9) ONDANSETRON 4MG ORAL DISINTEGRATING TAB DISSOLVE ONE ACTIVE TABLET BY UNDER THE TONGUE EVERY 6 HOURS NEEDED FOR NAUSEA AND VOMITING 10) PRAZOSIN HCL 2MG CAP TAKE TWO CAPSULES BY MOUTH AT ACTIVE BEDTIME FOR NIGHTMARES 11) QUETIAPINE FUMARATE 200MG TAB TAKE ONE TABLET BY ACTIVE MOUTH EVERY MORNING FOR DEPRESSION 12) QUETIAPINE FUMARATE 300MG TAB TAKE ONE TABLET BY ACTIVE MOUTH AT BEDTIME FOR DEPRESSION Non-VA Medications Status === 1) Non-VA HYDROMORPHONE 2MG TAB 4MG MOUTH EVERY 6 HOURS ACTIVE NEEDED 2) Non-VA LORAZEPAM 0.5MG TAB 0.5MG MOUTH EVERY 8 HOURS ACTIVE NEEDED 14 Total Medications Allergies: PFIZER COVID-19 VACCINE (EUA) (Mar 26, 2023) FENTANYL (Mar 26, 2023) INFLUENZA (Mar 26, 2023) MIRALAX (Mar 26, 2023) MENTAL STATUS EXAM Appearance: Well appearing, appropriately dressed and groomed. Orientation: Alert, and oriented to person, place, month, year and situation. Motor: No psychomotor agitation or retardation observable by video. Speech: Fluent with normal rate and volume. Mood: Things have gotten stagnant. Just falling back into not doing things like taking a shower and low motivation. Affect: Constricted with fair reactivity. Thought content: Denies suicidal ideation. Denies homicidal thoughts. Denies auditory orvisual hallucinations. No elicited delusions. Thought process: Organized with intact associations. Cognition: Grossly intact short and long-term memory. Not formally tested. Insight: Needs ongoing assessment. Judgment: Needs ongoing assessment. PERTINENT LABS AND IMAGIN12/2023 TSH within normal limits. There is no head/brain imaging. METABOLIC MONITORIN12/2023 4.9 A1C lipids on file TARDIVE DYSKINESIA MONITORING: last evaluation 01/2024 AIMS total score=0. ASSESSEMENT&PLAN: #. Major depressive disorder, recurrent, in partial remission: [place] reports resolved suicide ideation but continued depressive symptoms. 04/09/24 diagnostic assessment did not conclude meet diagnostic criteria for either bipolar disorder or borderline personality disorder noting it is likely that 's symptom profile is better explained by her childhood difficulties, PTSD, and depression. -Suicide safety plan completed 01/28/24. -Increase duloxetine to 120 mg daily. -Continue quetiapine 200 mg daily and 300 mg at bedtime. -Quetiapine 25 mg 3 times a day as needed for anxiety (prescription ; patient agrees to contact if he needs this renewed) -Trazodone 50 mg nightly as needed for insomnia. #. Chronic PTSD: Medications as above and individual therapy with Ms. Cruz. -Prazosin 4 mg nightly -Previously cosigned the PTSD/ketamine audience coordinator for eligibility screening. EDUCATION: completed today regarding risks and possible side effects associated with taking the above mentioned psychiatric medications (to include the risk of metabolic dysfunction and tardive dyskinesia, potential risk for teratogenic effects to a fetus should she become ). Patient verbalized understanding of the education topics (to include the need for contraceptive protection with sexual activity closed (and agreed to continue with the current treatment plan. SAFETY: The patient is currently at low acute risk but chronic elevated risk of self-harm or violence based on the following risk assessment: A. Fixed risk factors: Age, gender, race, , , history of prior suicide attempt, history of trauma, history of prior medication overdoses requiring hospitalization, hospital discharge within 2 years. B. Modifiable risk factors include [place] I disorder, anxiety, impulsivity, insomnia. C. Protective factors include future orientation, established outpatient plan and motivation for treatment, lack of current agitation, lack of known intoxication or withdrawal from substances, reported lack of access to firearms. The patient was instructed to call 911 or go to nearest emergency services if they become acutely suicidal or homicidal. The patient was instructed to avoid use of alcohol or drugs as they may exacerbate mood symptoms, anxiety and increase their risk of suicide or violence. Specific attempts to address modifiable factors include medications to treat depression, PTSD, recommendations for psychotherapy to improve coping skills, care coordination with substance abuse counseling, and ensuring the patient know whom to contact should symptoms worsen: mental health crisis line, nearest emergency department after business hours and weekends, life threatening emergency: call 911. Return to Clinic: 4-6 weeks. /lilia/ Luca Bee MD Psychiatrist Signed: 04/28/2024 15:31 04/28/2024 ADDENDUM STATUS: COMPLETED Care provided: Follow up care covered under the COMPACT Act of 2019 Section 201. Supporting clinical documentation: see above /lilia/ Luca Bee MD Psychiatrist Signed: 04/28/2024 15:32 LUCA BEE [facility]
--- OUTSIDE RECORDS SUMMARY | 2024-05-04 07:54 | XMS_ITS | Encounter Summary ---
Author Name [facility] [place] Organization [facility] [place] Address [address] [place] [address] Care Team Providers Care Acid Supervisor Name Role Phone EMIR GRACIA Primary Care Provider Unavailabl e Selected Encounter This section includes the information on record at [place] for the Encounter. Date/Time Encounter Type Encounter Description Reason Provider Source Apr 30, 2024 12:47 PM Outpatient Encounter EVENT (HISTORICAL) YOAN KESSLER Encounter Template Text not used by [place] Plan of Treatment: Future Appointments (+ 6 [...] The data comes from all [place] treatment facilities. Appointment Date/Time Appointment Type Appointme nt Facility Name May 05, 2024 05:00 PM AMBULATORY - NONE [place] [facility] May 11, 2024 09:00 AM AMBULATORY - [facility]IAT[facility] May 11, 2024 01:00 PM AMBULATORY - PSYCHIATRY TW IN [facility] May 18, 2024 11:00 AM AMBULATORY - PSYCHIATRY TW IN [facility] May 18, 2024 01:00 PM [facility] May 24, 2024 08:30 AM [facility] Active, Pending, and Scheduled Orders This section includes a listing of several types of active, pending, and scheduled orders, including clinic medications orders, diagnostic test orders, procedure orders and consult orders; where the start date of the order is 45 days before the date of the Encounter or 45 days after the date of theEncounter. The data comes from all [place] treatment facilities. Test Date/Time Test Type Test Details Facility Name Apr 19, 2024 09:46 AM Consult Order CARDIAC EC HO OUTPT-ALL SITES Cons Pie Crimping Machine Operator's Choice [facility] Apr 19, 2024 10:08 AM Consult Order CARDIAC EC HO-SPECIAL PROCEDURE Cons Pie [employer]ping Machine Operator's Choice [facility] Apr 19, 2024 10:47 AM Consult Order COMMUNITY CARE-NUCLEAR MEDICINE Cons Pie Crimping Machine Operator's Choice [facility] Lab Results: +/- 30 days of [...] Range Comment Apr 19, 2024 10:21 AM [facility] HEMOGLOBIN A1C Specimen Type: BLOOD Comment: [...] Apr 19, 2024 09:46 AM Reporting Lab: [facility] [id number] Performing Lab: [facility] [id number] HEMOGLOBIN A1C 4.9 4.0-6.0 Apr 19, 2024 10:21 AM [facility] TSH W/REFLEX TO FREE T4 Specimen Type: PLASMA Comment: Elevated triglyceride result from a non-fasting specimen should be interpreted with caution. A fasting panel is recommended for accurate triglycerides when trigs are >200 from a non-fasting specimen. Ordering Provider: EMIR GRACIA Report Released Date/Time: Apr 19, 2024 09:46 AM Reporting Lab: [facility] [id number] Performing Lab: [facility] [id number] TSH 0.69 u[IU]/mL 0.35-4.94 Apr 19, 2024 10:21 AM [facility] LIPID PANEL,NON-FASTING Specimen Type: PLASMA Comment: Elevated triglyceride result from a non-fasting specimen should be interpreted with caution. A fasting panel is recommended for accurate triglycerides when trigs are >200 from a non-fasting specimen. Ordering Provider: EMIR GRACIA Report Released Date/Time: Apr 19, 2024 09:46 AM Reporting Lab: [facility] [id number] Performing Lab: [facility] [id number] CHOLESTEROL 263 mg/dL H <199 .HDL 38 mg/dL L >50 LDL CALCULATION 151 mg/dL H <99 VLDL CALCULATION 74 mg/dL H <29 NON HDL CHOLESTEROL 225 mg/dL H <129 TRIG(NON FASTING) 368 mg/dL H <149 Apr 19, 2024 10:21 AM [facility] ANTI-HEP C(EIA) Specimen Type: SERUM No comment entered. Ordering Provider: EMIR RGACIA Report Released Date/Time: Apr 19, 2024 10:00 AM Reporting Lab: [facility] [id number] Performing Lab: [facility] [id number] ANTI-HEP C(EIA) NEGATIVE NEGATIVE Apr 19, 2024 10:21 AM [facility] COMPREHENSIVE METABOLIC PANEL+MG Specimen Type: PLASMA Comment: Elevated triglyceride result from a non-fasting specimen should be interpreted with caution. A fasting panel is recommended for accurate triglycerides when trigs are >200 from a non-fasting specimen. Ordering Provider: EMIR GRACIA Report Released Date/Time: Apr 19, 2024 09:46 AM Reporting Lab: [facility] [id number] Performing Lab: [facility] [id number] CREATININE 1.0 mg/dL 0.5-1.0 UREA NITROGEN 10 [...] Apr 19, 2024 09:46 AM Reporting Lab: [facility] [id number] Performing Lab: [facility] [id number] WBC 5.5 4.0-11.0 RBC 4.74 4.00-5.40 HGB [...] 05, 2024 12:00 PM VA-TOBACCO FORMER USER [facility] Tobacco Use History This section includes a history of the smoking, or tobacco-related health factors, that were collected on or before the date of the Encounter. The data comes from the [place] facility where the Encounter took place. Date/Time Smoking Status/Tobacco Use Comment F acility Jan 05, 2024 12:00 PM VA-TOBACCO QUIT 5 TO < 15 YRS [facility] Advance Directives: All historical and current [...] 05, 2024 ADVANCE DIRECTIVE DISCUSSION SHAHID HURTADO [facility] Radiology Reports: +/- 30 days of [...] the Encounter. The data comes from all [place] treatment facilities. Date/Time Radiology Report Provider Source Apr 19, 2024 09:48 AM CHEST 2 VIEWS PA A ND LAT: BILLIE ZAVALA [id number] -[id number] F Exm Date: APR 19, 2024@09:48 Req Phys: EMIR GRACIA Pat Loc: K PACT DIAMONDS (Req'g Loc) Img Loc: [facility] RADIOLOGY Service: Unknown Screen: [place] [address] (Case [id number] COMPLETE) CHEST 2 VIEWS PA AND LAT (RAD Detailed) CPT:99715 Reason for Study: chest pain Clinical History: IS NOT under investigation for COVID-19 or is COVID-19 negative chest pain Responsible provider name and phone number to notify for critical findings if other than user placing the order and pager listed below: User placing orders pager: LAST CREATININE 1.0 (12/21/23) Report Status: Verified Date Reported: APR 19, 2024 Date Verified: APR 19, 2024 Director Building E-Sig:/ES/PIA VARGAS MD, FACR, CCD Report: EXAMINATION: CHEST 2 VIEWS PA AND LAT 04/19/2024 9:48 AM INDICATION: chest pain COMPARISON: None. FINDINGS: The cardiac silhouette and pulmonary vasculature are within normal limits. The lungs appear clear of infiltrate. No pleural fluid identified. Impression: No active pulmonary disease visualized. Primary Interpreting Staff: PIA VARGAS MD, FACR, STAFF RADIOLOGIST (Director Building) /BSF PIA VARGAS [facility] Encounter Notes: All associated encounter notes This section contains the clinical notes associated to the Encounter. Date/Time Encounter Note(s) Provider Source Apr 30, 2024 12:47 PM SOCIAL WORK SECURE MESSAGING: LOCAL TITLE: SOCIAL WORK SECURE MESSAGING STANDARD TITLE: SOCIAL WORK SECURE MESSAGING DATE OF NOTE: APR 30, 2024@12:47 ENTRY DATE: APR 30, 2024@11:47:27 AUTHOR: YOAN KESSLER EXP COSIGNER: URGENCY: STATUS: COMPLETED ------Original Message ------ Sent: 04/30/2024 12:47 PM ET From: YOAN EKSSLER To: QUINTIN ZAVALA Subject: General:General Inquiry Brian Winn, I have also left a voicemail for you. Feel free to schedule an appointment if you have questions or would like assistance completing an Advance Directive. Below is a sample of some housing options from www.housinglink.org. The locations in [place] appear to have waiting lists so I expanded the search. I have also listed some housing resources for Veterans near [facility] below. However, they will likely have waiting lists. Another possible resource for housing searches is the [facility] ([facility]) [address], [address] [place] [address] Housing Link listings: O $1467-$1467, 3BR, 2BA, Twn Available: 06/20/2024 [facility] [address] [facility] [address] Schedule a Tour * [phone] * [email or web address] O Subsidized, 1BR, 1BA, Apt, [address] Available: 09/29/[address] [facility] [address] Schedule a Tour * [phone] * [email or web address] O Subsidized, 1BR, 1BA, Apt Available: 04/06/2024 [place] [address] [facility] [address] Schedule a Tour * [phone] * [email or web address] $1199, 1BR, 1BA, Apt Available: 04/20/2024 [address] [place] [facility] [address] Schedule a Tour * [phone] * [email or web address] $870-$970, 1BR, 1BA, Apt Available: 04/02/2024 [address] [facility] [address] Schedule a Tour * [phone] * [email or web address] Subsidized, 1BR, 1BA, Apt Available: 03/04/2024 [address] [facility] [address] Schedule a Tour * [phone] * [email or web address] $1626-$1626, 2BR, 1BA, Apt [facility] [address] Schedule a Tour * [phone] O $1122-$1122, 1BR, 1BA, Apt [facility] [address] [facility] [address] Schedule a Tour [phone] Housing resources for Veterans near [facility] o [place] contact is [employer] at [phone] [address] [place] [address] [email or web address] [place] is permanent supportive housing that offers studio and one-bedroom apartments for individuals and two or three-bedroom homes for families with a preference for Veterans who are homeless. o [facility] [address] [place], [place] [address] [email or web address] [facility] is a 100 unit affordable housing development with efficiency, one and two bedroom apartments for Veterans struggling with homelessness. o [facility] [phone] [address] [place] [address] [email or web address] Affordable efficiency apartments for Veterans and non-Veterans located across the road from main entrance of [facility]. Don't use GPS, it can't find the address and will bring you to the wrong location. $35 application fee when application is submitted. Homelessness status is not an eligibility factor. Take care, FRANCESCA Abdi Primary Care Hydraulics Engineer [facility] p [phone] /es/ [facility] Hydraulics Engineer Signed: 04/30/2024 11:47 YOAN KESSLER [facility]
--- OUTSIDE RECORDS SUMMARY | 2024-05-04 07:54 | XMS_ITS | Encounter Summary ---
Author Name [facility] [place] Organization [facility] [place] [place] Address [address] [place] [address] Care Team Providers Care Slimer Name Role Phone EMIR GRACIA Primary Care Provider Unavailabl e Selected Encounter This section includes the information on record at [place] for the Encounter. Date/Time Encounter Type Encounter Description Reason Provider Source Jan 29, 2024 03:00 PM MTMS BY GAVIN IZAGUIRRE 15 MIN PCMHI INDIV ICD-10-CM F43.12 Post-traumatic stress disorder, chronic DOROTHY,GURPREET TTE D IHE Encounter Template Text not used by [place] Assessments - Encounter Diagnoses This section includes the primary and secondary diagnoses documented for the Encounter. Date/Time Primary/Secondary Diagnosis Diagnosis Name Provider Source Jan 29, 2024 04:27 PM PRIMARY Post-traumatic stress disorder, chronic DOROTHY,GURPREET TTE D [facility] Jan 29, 2024 04:27 PM SECONDARY Generalized anxiety disorder DOROTHY,GURPREET TTE D [facility] Jan 29, 2024 04:27 PM SECONDARY Major depressive disorder, single episode, unspecified DOROTHY,GURPREET TTE D [facility] Plan of Treatment: Future Appointments (+ 6 [...] 2024 03:00 PM AMBULATORY - PSYCHIATRY [facility] Feb 25, 2024 11:00 AM AMBULATORY - [facility]RY [facility] Mar 02, 2024 11:00 AM AMBULATORY [facility] Mar 03, 2024 10:30 AM AMBULATORY - PS[facility]IATRY [facility] Mar 10, 2024 11:00 AM AMBULATORY - PS[facility]IATRY [facility] Mar 24, 2024 11:00 AM AMBULATORY - PS[facility]IATRY [facility] Mar 25, 2024 09:00 AM AMBULATORY - PSYCHIATRY [facility] Apr 05, 2024 08:30 AM AMBULATORY - PS[facility]CHIATRY [facility] Apr 09, 2024 01:00 PM AMBULATORY - PSYCHIATRY TW IN [facility] Apr 09, 2024 02:30 PM AMBULATORY - PSYCHIATRY [facility] Apr 12, 2024 09:30 AM AMBULATORY - PS[facility]CHIATRY [facility] [facility] Apr 19, 2024 09:00 AM AMBULATORY - MEDICINE [facility] Apr 20, 2024 01:00 PM AMBULATORY - PSYCHIATRY TW IN [facility] Apr 26, 2024 09:30 AM AMBULATORY - [place]IATRY [place] [facility] Apr 27, 2024 01:00 PM AMBULATORY - PSYCHIATRY TW IN [facility] Apr 28, 2024 01:00 PM AMBULATORY - [place]CHIATRY [place] [facility] May 05, 2024 05:00 PM AMBULATORY - NONE [facility] Active, Pending, and Scheduled Orders This [...] Chemi stry Order SALICYLATE SERUM STAT SP [facility] Social History: Smoking Status (Most current) and [...] 05, 2024 12:00 PM VA-TOBACCO FORMER USER [facility] Tobacco Use History This section includes a history of the smoking, or tobacco-related health factors, that were collected on or before the date of the Encounter. The data comes from the [place] facility where the Encounter took place. Date/Time Smoking Status/Tobacco Use Comment F acility Jan 05, 2024 12:00 PM [place]-TOBACCO QUIT 5 TO < 15 YRS [facility] Advance Directives: All [...] this document. The data comes from all [facility]. Date Advance Directives Provider Source Jan 05, 2024 ADVANCE DIRECTIVE DISCUSSION SHAHID HURTADO [facility] Encounter Notes: All associated encounter notes This section contains the clinical notes associated to the Encounter. Date/Time Encounter Note(s) Provider Source Jan 29, 2024 03:30 PM PSYCHIATRY E & M NOTE: LOCAL TITLE: PSYCHIATRIC EVALUATION & MANAGEMENT STANDARD TITLE: PSYCHIATRY E & M NOTE DATE OF NOTE: JAN 29, 2024@15:30 ENTRY DATE: JAN 29, 2024@11:48:46 AUTHOR: SCARLETT DE LA CRUZ COSIGNER: URGENCY: STATUS: COMPLETED MENTAL HEALTH PHARMACY SERVICE TYPE: -Visit conducted by synchronous telehealth. verbal consent obtained. Location/emergency number confirmed. Environment surveyed and participants identified. Virtual conference room locked. SPOKE WITH: [X] /PATIENT [] OTHER: [employer]'s identity verified by full name and social security number. S: LUCASQUINTIN MAJOR is a 43 y/o FEMALE seen for medication management establishment. Ribbon Tier id providing bridging to psychiatry. Mental Health Diagnoses: - Major Depressive Disorder, recurrent, severe (per 01/14/24 PSYCHIATRIC EVAL AND MANAGEMENT note) - Post Traumatic Stress Disorder (per 01/14/24 PSYCHIATRIC EVAL AND MANAGEMENT note) - generalized anxiety disorder (per problem list) Pertinent Medical Diagnoses: - pain related to pancreatitis Medications: - duloxetine 60mg PO daily for mood o Taking as prescribed in the morning - quetiapine 200mg PO QAM and 300mg PO QHS for depression o Taking as prescribed - quetiapine 25mg PO TID prn anxiety o Taking about 3x weekly - trazodone 50mg PO QHS prn sleep o Taking about 1-2x weekly Other Pertinent Medications: - nonVA lorazepam 0.5mg PO Q8h prn (prescribed for pain related to pancreatitis) o Taking when having a flare of pancreatitis o Uses every ~4 months - nonVA hydromorphone 4mg PO Q6h prn (prescribed for pain related to pancreatitis) o Taking when having a flare of pancreatitis o Uses every ~4 months - naloxone o Has available at home - clonidine 0.1mg PO BID for pain o Uses every ~4 months when tapering hydromorphone Side effects: quetiapine - oversedation, vivid dreams Past medication trials: - citalopram 10mg (03/11/2008, 09/22/2009-11/28/2009) - clonidine [...] trazodone 50mg PO QHS for sleep (12/29/2023-CURRENT) SUBJECTIVE & BACKGROUND CC: I am having a lot of sedation with the quetiapine Nita completed PPH last week. She feels she is transitioning well. Her mood is okay. She continues to have some anxiety and is taking as needed quetiapine 3x weekly with benefit. She denies SI. Nita occasionally has trouble falling asleep. On these nights she will take trazodone which is effective. He notes that she has frequent nightmares and is working on this in therapy. Nita feels that quetiapine has been the most helpful medication she has tried for mood; however, it is causing AM sedation. Nita has been taking duloxetine for 1-2 years. She feels this is mostly effective for her pain and has not significantly impacted mood. Nita reports one incidence of auditory hallucinations about 2 weeks ago after starting quetiapine. She notes that this occurred the morning after taking trazodone and quetiapine the night before. Nita is unsure hallucinations were related to medications or if she was tired/dehydrated/etc. This has not happened again. Ribbon Tier educated on anticholinergic and serotonergic burden with current treatment and their potential to cause hallucinations. Ribbon Tier discussed medication options including tapering quetiapine and titrating duloxetine. Nita prefers to make one change at a time and was agreeable to reducing AM quetiapine. 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 OBJECTIVE Mental status exam: Orientation: Alert; oriented to person, place, and time; cooperative, pleasant General Motor: Ambulating without assistance, no abnormal movements, sitting comfortable Appearance: Appropriately groomed/dressed, no apparent distress Speech: clear; normal rate, rhythm, tone - not pressured Mood: okay Affect: congruent with topics discussed, full-range Thought process: coherent, relevant, logical, and goal-oriented Suicidal ideations: Denied Homicidal ideations: Denied Hallucinations: None reported Delusions: None noted Insight/Judgement: adequate for safety History of Side Effects/ADRs per Patient and CPRS: PFIZER COVID-19 VACCINE (EUA) (Mar 26, 2023) FENTANYL (Mar 26, 2023) INFLUENZA (Mar 26, 2023) MIRALAX (Mar 26, 2023) Active Outpatient Medications (including Supplies): Active Outpatient [...] EVERY MORNING FOR DEPRESSION 16) QUETIAPINE FUMARATE 300MG TAB TAKE ONE TABLET BY ACTIVE MOUTH AT BEDTIME FOR DEPRESSION 17) TACROLIMUS 0.1% TOP OINT APPLY THIN LAYER TOPICALLY HOLD TWICE A DAY NEEDED FOR SEVERE ITCHING/DERMATITIS Active Non-VA Medications Status 1) Non-VA HYDROMORPHONE 2MG TAB 4MG MOUTH EVERY 6 HOURS ACTIVE NEEDED 2) Non-VA LORAZEPAM 0.5MG TAB 0.5MG MOUTH EVERY 8 HOURS ACTIVE NEEDED 19 Total Medications No Active Remote Medications for this patient Denies any non-VA prescriptions OTC acetaminophen, ibuprofen Vitals/lab values: Wt: 206.0 lb [93.44 kg] (12/25/2023 06:18) Ht: 67.323 in [171.0 cm] (03/27/2023 09:03) BP: 125/80 (01/05/2024 12:11) HR: 77 (01/05/2024 12:11) BMI: 32.0 BMP: ==== CREATININE 1.0 (12/21/23) SODIUM 140 (12/21/23) Liver Panel: Alk Phos ALK PHOSPHATASE 54 (12/21/23) ALT/SGPT: SGPT 20 (12/21/23) AST/SGOT: SGOT 16 (12/21/23) T Bili BILIRUBIN, TOTAL 0.8 (12/21/23) Lipid Panel: - Cholesterol: CHOLESTEROL 170 (12/22/23) - Triglyceride: TRIGLYCERIDE 151 H (12/22/23) - HDL: HDL 34 L (12/22/23) - LDL-C: LDL CALCULATION 106 H (12/22/23) Collection DT Spec HGBA1C 12/22/2023 05:30 BLOOD 4.9 03/27/2023 10:13 BLOOD 4.8 AIMS: 0 (01/19/24) EKG: none on file ASSESSMENT: [employer] is a 43 y/o FEMALE with depression, anxiety, and PTSD who is prescribed duloxetine, quetiapine, and trazodone. Mood and anxiety have improved since starting quetiapine in December, but the medication is causing oversedation. Will trial a reduced dose of AM quetiapine in an effort to maintain benefits while reducing side effects. PRN quetiapine is helpful for anxiety elevations, will continue at this time as anxiety may increase with a decrease of scheduled quetiapine. Duloxetine appears to be primarily effective for pain, but may also contribute to mood stabilization. Given current benefit and tolerability, will continue as prescribed. Trazodone is effective for sleep, so will continue today. Nightmares are currently uncontrolled. Given preference for making one medication change at a time, will defer discussion of nightmare treatments to follow-up. No acute safety concerns. SUICIDE RISK ASSESSMENT Risk factors/Warning Signs: Recent SI with plan & preparation (see 12/2023 CSREs) History of psychiatric diagnosis Anxiety/agitation Disturbed sleep Co-morbid health problems Mitigating factors: Denies SI today Updated safety plan Positive social support Future oriented Reliably takes medication Help seeking Access to care Reality testing ability Positive coping skills Positive problem-solving skills Positive therapeutic relationship Overall Assessment. Based on risk and protective factors, the patient is considered to be at low ACUTE and intermediate CHRONIC risk for committing suicidal acts/self-harm. Discussed risks, benefits, side effects and alternatives to treatment (including no treatment) and is agreeable to the plan. VETERANS CURRENT QUESTIONS AND NEEDS REGARDING MENTAL HEALTH SERVICES ADDRESSED. PLAN: #Medications o Continue duloxetine 60mg PO daily for mood o Reduce quetiapine to 100mg PO QAM and 300mg PO QHS for depression o Continue quetiapine 25mg PO TID prn anxiety o Continue trazodone 50mg PO QHS prn sleep #Non-Pharm o Continue psychotherapy #FOLLOW UP: o In 3 weeks with pharmacist, sooner as needed FUTURE APPOINTMENTS: 02/04/2024 11:00 [facility] 02/11/2024 11:00 [facility] 02/18/2024 11:00 [facility] 02/25/2024 11:00 [facility] 03/02/2024 11[facility]00 [facility] 03/03/2024 10:30 [facility] 03/10/2024 11:00 [facility] 03/17/2024 11:00 [facility] Time Spent: 30 min [employer] [employer] acknowledges understanding of their medication regimen including common side effects and what to expect from pharmacotherapy. [place] [employer] agrees to contact this clinic with any concerns prior to next appointment. [place] [employer] agrees with plan detailed below and will access crisis services as needed. - was educated on ability to walk in to clinic for non-urgent mental health and/or medical assistance. - directed to report to the nearest emergency room for urgent mental health or medical issues. -[place] [employer] educated on the [facility] Crisis [facility] for assistance with triaging mental health concerns and educated on safety and risk and use of [facility] for crisis situations. - provided with Veterans Crisis Line number at 988. Press 1 to talk with someone right away. /lilia/ SCARLETT DE LA CRUZ Mental Health Clinical Pharmacist Practitioner Signed: 01/29/2024 16:27 SCARLETT DE LA CRUZ [facility]
--- OUTSIDE RECORDS SUMMARY | 2024-05-04 07:54 | XMS_ITS | Encounter Summary ---
Author Name [facility] Organization [facility] [place] Address [address] [place] [address] Care Team Providers Care Tube Former Operator Name Role Phone EMIR GRACIA Primary Care Provider Unavailabl e Selected Encounter This section includes the information on record at [place] for the Encounter. Date/Time Encounter Type Encounter Description Reason Provider Source Jan 20, 2024 11:00 AM 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/JOSEPH [facility] ICD-10-CM F32.9 Major depressive disorder, single episode, unspecified CLEOPATRA HURTADO Lorie Encounter Template Text not used by [place] Assessments - Encounter Diagnoses This section includes the primary and secondary diagnoses documented for the Encounter. Date/Time Primary/Secondary Diagnosis Diagnosis Name Provider Source Jan 20, 2024 12:53 PM PRIMARY Major depressive disorder, single episode, unspecified CLEOPATRA HURTADO [facility] Jan 20, 2024 12:53 PM SECONDARY Post-traumatic stress disorder, chronic CLEOPATRA HURTADO [facility] Plan [...] 20 appointments. The data comes from all [facility]. Appointment Date/Time Appointment Type Appointme nt Facility Name Jan 21, 2024 08:45 AM AMBULATORY - PSYCHIATRY [facility] Jan 21, 2024 10:00 AM AMBULATORY - PS[facility]CHIATRY [facility] Jan 21, 2024 11:00 AM AMBULATORY - PSYCHIATRY [facility] Jan 23, 2024 08:45 AM AMBULATORY - PSYCHIATRY [facility] Jan 23, 2024 10:00 AM AMBULATORY - PSYCHIATRY [facility] Jan 23, 2024 11:00 AM AMBULATORY - PSYCHIATRY [facility] Jan 23, 2024 12:00 PM AMBULATORY - PSYCHIATRY [facility] Jan 24, 2024 08:15 AM AMBULATORY - SURGERY [facility] Jan 29, 2024 11:00 AM AM[facility] Jan 29, 2024 03:00 PM AMBULATORY - PSYCHIATRY [facility] Feb 04, 2024 11:00 AM AMBULATORY [facility] Feb 11, 2024 11:00 AM AMBULATORY - [facility]RY [facility] Feb 18, 2024 11:00 AM AMBULATORY - [facility] Feb 19, 2024 03:00 PM AMBULATORY - PSYCHIATRY [facility] Feb 25, 2024 11:00 AM AMBULATORY [...] 25, 2024 09:00 AM AMBULATORY - PSYCHIATRY [facility] Active, Pending, and Scheduled Orders This section includes a listing of several types of active, pending, and scheduled orders, including clinic medications orders, diagnostic test orders, procedure orders and consult orders; where the start date of the order is 45 days before the date of the Encounter or 45 days after the date of theEncounter. The data comes from all [facility]. Test Date/Time Test Type Test [...] and Hematology Lab Results on record with [place] for the patient. Radiology Reports and Pathology [...] actually be between 8.7 and 9.3. Ref: http://[email or web address] [email or web address]/CAPdata. asp Ordering Provider: THERESA DUKES Report Released Date/Time: Dec 21, 2023 08:58 PM Reporting Lab: [facility] [id number] Performing Lab: [facility] [id number] HEMOGLOBIN A1C 4.9 4.0-6.0 Dec 22, 2023 06:[address] [facility] B 12 Specimen Type: SERUM No comment entered. Ordering Provider: THERESA DUKES Report Released Date/Time: Dec 21, 2023 08:58 PM Reporting Lab: [facility] [id number] Performing Lab: [facility] [id number] B 12 381 pg/mL 213-816 Dec 22, 2023 06:[address] [facility] VIT D 25-OH,TOTAL Specimen Type: SERUM No comment entered. Ordering Provider: THERESA DUKES Report Released Date/Time: Dec 21, 2023 08:58 PM Reporting Lab: [facility] [id number] Performing Lab: [facility] [id number] VIT D 25-OH,TOTAL 29 ng/mL 12-50 Dec 22, 2023 06:[address] [facility] FOLATE Specimen Type: PLASMA No comment entered. Ordering Provider: THERESA DUKES Report Released Date/Time: Dec 21, 2023 08:58 PM Reporting Lab: [facility] [phone] Performing Lab: [facility] [id number] FOLATE 7.1 ng/mL >7.0 Dec 22, 2023 06:[address] [facility] TSH W/REFLEX TO FREE T4 Specimen Type: PLASMA No comment entered. Ordering Provider: THERESA DUKES Report Released Date/Time: Dec 21, 2023 08:58 PM Reporting Lab: [facility] [phone] Performing Lab: [facility] [id number] TSH 0.36 u[IU]/mL 0.35-4.94 Dec 22, 2023 06:[address] [facility] LIPID PANEL,FASTING Specimen Type: PLASMA No comment entered. Ordering Provider: THERESA DUKES Report Released Date/Time: Dec 21, 2023 08:58 PM Reporting Lab: [facility] [phone] Performing Lab: [facility] [phone] CHOLESTEROL 170 mg/dL <199 TRIGLYCERIDE 151 mg/dL [...] and tobacco- related health factors from the [place] facility where the Encounter took place. Current Smoking Status This section includes the most current smoking, or tobacco-related health factor, from the [place] facility where the Encounter took place. Date/Time Current Smoking Status Comment Latasha pitts Jan 05, 2024 12:00 PM VA-TOBACCO FORMER USER [facility] Tobacco Use History This section includes a history of the smoking, or tobacco-related health factors, that were collected on or before the date of the Encounter. The data comes from the [place] facility where the Encounter took place. Date/Time Smoking Status/Tobacco Use Comment F acility Jan 05, 2024 12:00 PM [place]-TOBACCO QUIT 5 TO < [address] [facility] Advance Directives: All historical and current Section Date Range: From patient's date of to the date document was created. This section includes ALL of a patient's completed or amended [place] Advance and Rescinded Directives. The entries below indicate that a directive exists for the patient, but an actual copy is not included with this document. The data comes from all [place] facilities. Date Advance Directives Provider Source Jan 05, 2024 ADVANCE DIRECTIVE DISCUSSION SHAHID HURTADO [facility] Encounter Notes: All associated encounter notes This section contains the clinical notes associated to the Encounter. Date/Time Encounter Note(s) Provider Source Jan 20, 2024 11:00 AM MENTAL HEALTH GROU P COUNSELING NOTE: LOCAL TITLE: MH GROUP NOTE STANDARD TITLE: MENTAL HEALTH GROUP COUNSELING NOTE DATE OF NOTE: JAN 20, 2024@11:00 ENTRY DATE: JAN 20, 2024@12:14:02 AUTHOR: GEORGINA HURTADO EXP COSIGNER: URGENCY: STATUS: COMPLETED MH GROUP NOTE Has ADDENDA [facility] GROUP Name of Group: [facility]: What & How Skills Date of Group: 01/20/2024 Time of Group: 1100 Number of Clients in Group: 4 Registered Nurse Bone Marrow Transplant/s: MERNA Wesley, PHYSICAL MEDICINE TEACHER Modality: Group psychotherapy Group Content: Education about mindfulness what and how skills, and practice of mindfulness exercises Medium: Handouts, discussion, activity Objectives: 1) Veterans will be able to define the mindfulness skills of observe, describe, and participate 2) Veterans will be able to verbalize components of mindfulness including. present moment awareness, nonjudgmental observation, and practicing effectiveness. 3) Veterans will practice applying what and how skills through in-session mindfulness exercises. EDUCATION: Readiness to learn: Patient attended group, [...] goals and plan for treatment while in [facility], please refer to veterans individualized treatment plan upon entry to [facility]. [place] is continuing with [facility] programming at this time. Also refer to suicide risk assessment completed upon entrance into [facility] program for comprehensive description of acute and chronic risk level. No change in risk at this time. Plan: Continue to attend [facility] to work toward goals. attended group for full session DSM 5 DIAGNOSIS: MDD, rec; PTSD r/t MST /lilia/ FRANCESCA DEMPSEY CLINICAL [employer]PENTERS SUPERVISOR Signed: 01/20/2024 13:18 01/20/2024 ADDENDUM STATUS: COMPLETED Care provided: Follow up care covered under the COMPACT Act of 2019 Section 201. Supporting clinical documentation: [facility]PH consult and PPH notes /lilia/ FRANCESCA DEMPSEY [employer]ICAL [employer]PENT[employer] SUPERVISOR Signed: 01/23/2024 11:[address] [facility]
--- OUTSIDE RECORDS SUMMARY | 2024-05-04 07:54 | XMS_ITS | Encounter Summary ---
Author Name [facility] [place] [facility] [place] Organization [place] Address [address] [place] [address] Care Team Providers Care Insole Beveler Name Role Phone EMIR GRACIA Primary Care Provider Unavailabl e Selected Encounter This section includes the information on record at [place] for the Encounter. Date/Time Encounter Type Encounter Description Reason Provider Source Feb 04, 2024 11:00 AM PSYTX W PT 45 MINUTES [facility] - IND ICD-10-CM F43.12 Post-traumatic stress disorder, chronic NIMA LOPEZ Lorie Encounter Template Text not used by [place] Assessments - Encounter Diagnoses This section includes the primary and secondary diagnoses documented for the Encounter. Date/Time Primary/Secondary Diagnosis Diagnosis Name Provider Source Feb 04, 2024 12:12 PM PRIMARY Post-traumatic stress disorder, chronic SCOTT LOPEZ [facility] Feb 04, 2024 12:12 PM SECONDARY Suicidal ideations SCOTT LOPEZ [facility] Plan of Treatment: Future Appointments (+ [...] 19, 2024 03:00 PM AMBULATORY - PSYCHIATRY [facility] Feb 25, 2024 11:00 AM AMBULATORY - [...] 09:00 AM AMBULATORY - PSYCHIATRY [facility] Apr 05, 2024 08:30 AM AM[facility]ATORY - [facility] Apr 09, 2024 01:00 PM AMBULATORY - PSYCHIATRY [facility] Apr 09, 2024 02:30 PM AMBULATORY - PSYCHIATRY [facility] Apr 12, 2024 09:30 AM AM[facility]UL[facility] - [facility] Apr 19, 2024 09:00 AM AMBULATORY - MEDICINE LEEANN MARILUZROLDAN [facility] Apr 20, 2024 01:00 PM AMBULATORY - PSYCHIATRY [facility] Apr 26, 2024 09:30 AM AMBULAT[facility] - [facility] Apr 27, 2024 01:00 PM AMBULATORY - PSYCHIATRY TW [facility] Apr 28, 2024 01:00 PM [facility] - [facility] May 05, 2024 05:00 PM AMBULATORY - NONE [facility] May 11, 2024 09:00 AM AMBULATORY - [facility]ATRY [facility] Active, Pending, and Scheduled Orders This section includes a listing of several types of active, pending, and scheduled orders, including clinic medications orders, diagnostic test orders, procedure orders and consult orders; where the start date of the order is 45 days before the date of the Encounter or 45 days after the date of theEncounter. The data comes from all [place] treatment [facility]. Test Date/Time Test Type Test Details Facility Name Dec 21, 2023 04:56 PM Laboratory - Chemi stry Order SALICYLATE SERUM STAT SP [facility] Social History: Smoking Status (Most current) and Tobacco Use (All prior to encounter date) This section includes the most current, and the historical, smoking and tobacco- related health factors from the [place] facility where the Encounter took place. Current Smoking Status This section includes the most current smoking, or tobacco-related health factor, from the [place] facility where the Encounter took place. Date/Time Current Smoking Status Comment Facil ity Mar 27, 2023 09:00 AM [place]-TOBACCO FORMER USER [facility] Tobacco Use History This section includes a history of the smoking, or tobacco-related health factors, that were collected on or before the date of the Encounter. The data comes from the [place] facility where the Encounter took place. Date/Time Smoking Status/Tobacco Use Comment F acility Mar 27, 2023 09:00 AM [place]-TOBACCO QUIT 5 TO < 15 YRS [facility] Advance Directives: All historical and current Section Date Range: From patient's date of to the date document was created. This section includes ALL of a patient's completed or amended [place] Advance and Rescinded Directives. The entries below indicate that a directive exists for the patient, but an actual copy is not included with this document. The data comes from all [place] facilities. Date Advance Directives Provider Source Jan 05, 2024 ADVANCE DIRECTIVE DISCUSSION SHAHID HURTADO [facility] Encounter Notes: All associated encounter notes This section contains the clinical notes associated to the Encounter. Date/Time Encounter Note(s) Provider Source Feb 04, 2024 11:00 AM MENTAL HEALTH NOTE : LOCAL TITLE: MH PROGRESS NOTE STANDARD TITLE: MENTAL HEALTH NOTE DATE OF NOTE: FEB 04, 2024@11:00 ENTRY DATE: FEB 04, 2024@12:11:36 AUTHOR: MILI LOPEZ EXP COSIGNER: URGENCY: STATUS: COMPLETED OUTPATIENT MENTAL HEALTH PROGRESS NOTE Clinic: [facility] Date: 02/04/2024 Length of Session: 50 minutes Method of Interface: In-person Session #26 Author: MERNA Trevino, MANAGER BUSINESS CONTINUITY Subjective: Met with Quintin Zavala for individual therapy session. She reported that she has been more depressed this past week which she attributes to the reduction in quetiapine. She noted continued nightmares, about 5 nights a week. Let her know that a consult was submitted and we discussed strategies for improving her sleep, including using the trazodone as that has helped in the past. She has been reluctant due to the hangover she experiences the next day but we talked about cost versus benefit and she agreed that it may be helpful to use it for a couple of nights to see if it helps. She recognized that a lack of routine is also likely contributing to her low mood and SI (denied plan) and we explored options for creating more structure. She identified getting outside as her priority as well as a need for external accountability and plans to ask a friend to go for a walk with her in the mornings. Nita was concerned about her work duty limitations form that she brought to [facility] last week and Enamel Machine Operator followed up on it. She endorsed a lot of anxiety around that as her pay and workplace expectations were dependent on the form being filled out. Provided space for her to share and process, and found the form was delivered this morning and her provider agreed to complete it right away. Nita expressed gratitude and relief. Objective: Appearance: Well-groomed, appropriate eye contact Speech: Regular rate/rhythm/volume Motor: Normal Spontaneous movement Mood: Euthymic, somewhat depressed Affect: Appropriate, full range Thought Content: No Suicidal Ideation/No Homicidal Ideation No Delusions No Hallucinations Thought Process: Linear/Logical/Goal Oriented Judgement: Good Insight: Good Impulse Control: Good Oriented to Person/Place/Time/Reason for Appointment Assessment: Nita was engaged and receptive throughout. She agreed that Voc Rehab is no longer necessary at this time. Risk factors include history of SI/suicide attempt, insomnia, relationship issues, race. Protective factors include responsibility to others, children in the home, hope for the future, desire to live, help seeking behaviors, positive therapeutic alliance. Current risk assessment: Low acute, Intermediate chronic Diagnostic Evaluation: PTSD, chronic Plan: RTC in one week Care provided: Follow up care covered under the COMPACT Act of 2019 Section 201. Supporting clinical documentation: See above information /es/ TROY Grace Superintendent Warehouse Signed: 02/04/2024 12:12 MILI LOPEZ [facility]
--- OUTSIDE RECORDS SUMMARY | 2024-05-04 07:54 | XMS_ITS | Encounter Summary ---
Author Name [facility] [place] Organization [place] Address [address] [place] [address] Care Team Providers Care Check Services Clerk Name Role Phone EMIR GRACIA Primary Care Provider Unavailabl e Selected Encounter This section includes the information on record at [place] for the Encounter. Date/Time Encounter Type Encounter Description Reason Provider Source Apr 27, 2024 01:00 PM 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[facility] - IND ICD-10-CM F51.5 Nightmare disorder DARELL CARDOZA Lorie Encounter Template Text not used by [place] Assessments - Encounter Diagnoses This section includes the primary and secondary diagnoses documented for the Encounter. Date/Time Primary/Secondary Diagnosis Diagnosis Name Provider Source Apr 27, 2024 01:40 PM PRIMARY Nightmare disorder [facility] Plan of Treatment: Future Appointments [...] Appointment Type Appointme nt Facility Name Apr 28, 2024 01:00 PM AMBULATORY - PSYCHIATRY [facility] May 05, 2024 05:00 PM AMBULATORY - NONE [place] [facility] May 11, 2024 09:00 AM AMBULATORY - PS[facility]CHIATRY [facility] [place] [facility] May 11, 2024 01:00 PM AMBULATORY - PSYCHIATRY TW IN [facility] May 18, 2024 11:00 AM AMBULATORY - PSYCHIATRY TW IN [facility] May 18, 2024 01:00 PM [facility] May 24, 2024 08:30 AM [facility] Active, Pending, and Scheduled Orders This section [...] Order CARDIAC EC HO OUTPT-ALL SITES Cons Interventional Sale Consultant's Choice [facility] Apr 19, 2024 10:08 AM Consult Order CARDIAC EC HO-SPECIAL PROCEDURE Cons Interventional Sale Consultant's Choice [facility] Apr 19, 2024 10:47 AM Consult Order COMMUNITY CARE-NUCLEAR MEDICINE Cons Interventional Sale Consultant's Choice [facility] Lab Results: +/- 30 days of the [...] Range Comment Apr 19, 2024 10:21 AM [facility] HEMOGLOBIN A1C Specimen Type: BLOOD [...] 2024 09:46 AM Reporting Lab: [facility] [id number] Performing Lab: [facility] [id number] HEMOGLOBIN A1C 4.9 4.0-6.0 Apr 19, 2024 10:21 AM [facility] Ready TSH W/REFLEX TO FREE T4 Specimen Type: PLASMA Comment: Elevated triglyceride result from a non-fasting specimen should be interpreted with caution. A fasting panel is recommended for accurate triglycerides when trigs are >200 from a non-fasting specimen. Ordering Provider: EMIR GRACIA Report Released Date/Time: Apr 19, 2024 09:46 AM Reporting Lab: [facility] [id number] Performing Lab: [facility] [phone] TSH 0.69 u[IU]/mL 0.35-4.94 Apr 19, 2024 10:21 AM [facility] Ready ANTI-HEP C(EIA) Specimen Type: SERUM No comment entered. Ordering Provider: EMIR GRACIA Report Released Date/Time: Apr 19, 2024 10:00 AM Reporting Lab: [facility] [id number] Performing Lab: [facility] [phone] ANTI-HEP C(EIA) NEGATIVE NEGATIVE Apr 19, 2024 10:21 AM [facility] Ready COMPREHENSIVE METABOLIC PANEL+MG Specimen Type: PLASMA Comment: Elevated triglyceride result from a non-fasting specimen should be interpreted with caution. A fasting panel is recommended for accurate triglycerides when trigs are >200 from a non-fasting specimen. Ordering Provider: EMIR GRACIA Report Released Date/Time: Apr 19, 2024 09:46 AM Reporting Lab: [facility] [id number] Performing Lab: [facility] [id number] CREATININE 1.0 mg/dL 0.5-1.0 UREA NITROGEN 10 [...] 2024 09:46 AM Reporting Lab: [facility] [id number] Performing Lab: [facility] [phone] WBC 5.5 4.0-11.0 RBC 4.74 4.00-5.40 HGB 13.4 g/dL 11.5-16 HCT 39.7 34.5-48 MCV 83.8 fL 80-100 MCH 28.3 pg 27-33 MCHC 33.8 g/dL 32.0-37.5 PLT 370 150-400 MPV 9.8 fL 9.1-13.0 RDW 12.0 11.5-14.5 Apr 19, 2024 10:21 AM [facility] LIPID PANEL,NON-FASTING Specimen Type: PLASMA Comment: Elevated triglyceride result from a non-fasting specimen should be interpreted with caution. A fasting panel is recommended for accurate triglycerides when trigs are >200 from a non-fasting specimen. Ordering Provider: EMIR GRACIA Report Released Date/Time: Apr 19, 2024 09:46 AM Reporting Lab: [facility] [phone] Performing Lab: [facility] [phone] CHOLESTEROL 263 mg/dL H <199 .HDL 38 mg/dL L >50 LDL CALCULATION 151 mg/dL H <99 VLDL CALCULATION 74 mg/dL H <29 NON HDL CHOLESTEROL 225 mg/dL H <129 TRIG(NON FASTING) 368 mg/dL H <149 Advance Directives: All historical and current Section [...] 05, 2024 ADVANCE DIRECTIVE DISCUSSION SHAHID HURTADO [facility] Radiology Reports: +/- 30 days [...] VIEWS PA A ND LAT: BILLIE ZAVALA [id number] -[id number] F Exm Date: APR 19, 2024@09:48 Req Phys: EMIR GRACIA Loc: [facility] PACT DIAMONDS (Req'g Loc) Img Loc: [facility] RADIOLOGY Service: Unknown Screen: [place] [address] (Case [id number] COMPLETE) CHEST 2 VIEWS PA AND LAT (RAD Detailed) CPT:48760 Reason for Study: chest pain Clinical History: [place] IS NOT under investigation for COVID-19 or is COVID-19 negative chest pain Responsible provider name and phone number to notify for critical findings if other than user placing the order and pager listed below: User placing orders pager: LAST CREATININE 1.0 (12/21/23) Report Status: Verified Date Reported: APR 19, 2024 Date Verified: APR 19, 2024 Braiding Machine Operator E-Sig:/ES/PIA VARGAS MD, FACR, CCD Report: EXAMINATION: CHEST 2 VIEWS PA AND LAT 04/19/2024 9:48 AM INDICATION: chest pain COMPARISON: None. FINDINGS: The cardiac silhouette and pulmonary vasculature are within normal limits. The lungs appear clear of infiltrate. No pleural fluid identified. Impression: No active pulmonary disease visualized. Primary Interpreting Staff: PIA VARGAS MD, FACR, STAFF RADIOLOGIST (Braiding Machine Operator) /BSF PIA VARGAS [facility] Encounter Notes: All associated encounter notes This section contains the clinical notes associated to the Encounter. Date/Time Encounter Note(s) Provider Source Apr 27, 2024 01:25 PM MENTAL HEALTH NOTE : LOCAL TITLE: MH PROGRESS NOTE STANDARD TITLE: MENTAL HEALTH NOTE DATE OF NOTE: APR 27, 2024@13:25 ENTRY DATE: APR 27, 2024@13:25:27 AUTHOR: DARELL CARDOZA COSIGNER: URGENCY: STATUS: COMPLETED MH PROGRESS NOTE Has ADDENDA IDENTIFYING INFORMATION: Nita is a 43-year-old, service connected, female. She was seen for 40 minutes for a follow-up individual therapy session with technical document writer via [facility]. Informed consent for treatment and confidentiality and limits and benefits of treatment were reviewed with patient and they indicated understanding and agreement in the first session. Visit conducted by synchronous telehealth. verbal consent obtained. Location/emergency number confirmed. Environment surveyed and all participants identified. Virtual conference room locked. SESSION FOCUS: This was session three of Imagery Rehearsal Therapy (IRT). Nita said things had been improving with her nightmares until last night, when she had a very difficult night with nightmares. She said her mood has been pretty good, and she thinks is maybe improved. Nita had completed the nightmare log and it was reviewed. Topics discussed today included: strategies for addressing negative intrusive images/thoughts during imagery practice, dealing with distractions during imagery practice, and nightmare rescripting. Nita developed a script in session for changing her nightmare into a neutral or pleasant dream. She was encouraged to practice her rescript for at least two 10-minute imagery sessions daily. The importance of practice was discussed. Nita also agreed to complete the nightmare log for next session. The indicated readiness to learn for the education provided during this session as noted above. The also indicated understanding by asking questions and making appropriate comments. Current Treatment Plan Date: 04/09/24 Plan Renewal Date: 04/09/25 OBSERVATIONS: The connected on time for the session. Mood seemed somewhat dysphoric and affect was congruent with topics discussed. Speech was fluent with normal rate and volume. Thought flow was organized and goal- directed. Thought content appeared to be focused on content related to the session. There were no indications of audio/visual hallucinations. RISK INFORMATION: having fleeting and vague suicidal ideation (wished she was ) last night while having a difficult night with nightmares, she denied any plan or intent. denied any homicidal ideation since last session. Risk factors for suicide include: history of suicidal behavior, limited social support, PTSD, sleep issues. Protective factors include: engaged with treatment, school and clinicals, no access for firearms, enjoyable activities. Nita has been informed of the emergent procedures. Risk Determination: Acute: Low, Chronic: Low. 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 Her primary therapist is FRANCESCA Trevino, and she is followed by Dr. Alonso for psychiatry. /sandra CARDOZA PsyD, LP STAFF PSYCHOLOGIST Signed: 04/27/2024 13:40 04/27/2024 ADDENDUM STATUS: COMPLETED Care provided: Follow up care covered under the COMPACT Act of 2020 Section 201. Supporting clinical documentation: Assessed for suicidal ideation. reported fleeting and vague suicidal thoughts (wished she was ) during a night with difficult nightmares. She denied plan or intent. /sandra CARDOZA PsyD, LP STAFF PSYCHOLOGIST Signed: 04/27/2024 13:42 DARELL CARDOZA [facility]
--- OUTSIDE RECORDS SUMMARY | 2024-05-04 07:54 | XMS_ITS | Encounter Summary ---
Author Name [facility] [place] Organization [place] Address [address] [place] [address] Care Team Providers Care Employment Law Specialist Name Role Phone EMIR GRACIA Primary Care Provider Unavailabl e Selected Encounter This section includes the information on record at [place] for the Encounter. Date/Time Encounter Type Encounter Description Reason Pro vider Source Apr 26, 2024 09:30 AM Outpatient Encounter [facility] Encounter Template Text not used by [place] Plan of Treatment: Future Appointments (+ 6 [...] Appointment Type Appointme nt Facility Name Apr 27, 2024 01:00 PM AMBULATORY - PSYCHIATRY TW IN [facility] Apr 28, 2024 01:00 PM AMBULATORY - PSYCHIATRY [place] [facility] May 05, 2024 05:00 PM AMBULATORY - NONE [facility] May 11, 2024 09:00 AM AMBULATORY - PSYCHIATRY [place] [facility] May 11, 2024 01:00 PM AMBULATORY - PSYCHIATRY TW IN [facility] May 18, 2024 11:00 AM AMBULATORY - PSYCHIATRY TW IN [facility] May 18, 2024 01:00 PM [facility] May 24, 2024 08:30 AM [facility] Active, Pending, and Scheduled Orders This section includes a listing of several types of active, pending, and scheduled orders, including clinic medications orders, diagnostic test orders, procedure orders and consult orders; where the start date of the order is 45 days before the date of the Encounter or 45 days after the date of theEncounter. The data comes from all [place] treatment facilities. Test Date/Time Test Type Test Details Facility Name Apr 19, 2024 09:46 AM Consult Order CARDIAC EC HO OUTPT-ALL SITES Cons Checkering Machine Operator's Choice [facility] Apr 19, 2024 10:08 AM Consult Order CARDIAC EC HO-SPECIAL PROCEDURE Cons Checkering Machine Operator's Choice [facility] Apr 19, 2024 10:47 AM Consult Order COMMUNITY CARE-NUCLEAR MEDICINE Cons Checkering Machine Operator's Choice [facility] Lab Results: +/- 30 days of the [...] Range Comment Apr 19, 2024 10:[address] [facility] HEMOGLOBIN A1C Specimen Type: BLOOD Comment: Values [...] Apr 19, 2024 09:46 AM Reporting Lab: [facility] [id number] Performing Lab: [facility] [address] HEMOGLOBIN A1C 4.9 4.0-6.0 Apr 19, 2024 10:[address] [facility] TSH W/REFLEX TO FREE T4 Specimen Type: PLASMA Comment: Elevated triglyceride result from a non-fasting specimen should be interpreted with caution. A fasting panel is recommended for accurate triglycerides when trigs are >200 from a non-fasting specimen. Ordering Provider: EMIR GRACIA Report Released Date/Time: Apr 19, 2024 09:46 AM Reporting Lab: [facility] [id number] Performing Lab: [facility] [phone] TSH 0.69 u[IU]/mL 0.35-4.94 Apr 19, 2024 10:21 AM [facility] LIPID PANEL,NON-FASTING Specimen Type: PLASMA Comment: Elevated triglyceride result from a non-fasting specimen should be interpreted with caution. A fasting panel is recommended for accurate triglycerides when trigs are >200 from a non-fasting specimen. Ordering Provider: EMIR GRACIA Report Released Date/Time: Apr 19, 2024 09:46 AM Reporting Lab: [facility] [phone] Performing Lab: [facility] [id number] CHOLESTEROL 263 mg/dL H <199 .HDL 38 mg/dL L >50 LDL CALCULATION 151 mg/dL H <99 VLDL CALCULATION 74 mg/dL H <29 NON HDL CHOLESTEROL 225 mg/dL H <129 TRIG(NON FASTING) 368 mg/dL H <149 Apr 19, 2024 10:21 AM [facility] ANTI-HEP C(EIA) Specimen Type: SERUM No comment entered. Ordering Provider: EMIR GRACIA Report Released Date/Time: Apr 19, 2024 10:00 AM Reporting Lab: [facility] [id number] Performing Lab: [facility] [address] ANTI-HEP C(EIA) NEGATIVE NEGATIVE Apr 19, 2024 10:21 AM [facility] COMPREHENSIVE METABOLIC PANEL+MG Specimen Type: PLASMA Comment: Elevated triglyceride result from a non-fasting specimen should be interpreted with caution. A fasting panel is recommended for accurate triglycerides when trigs are >200 from a non-fasting specimen. Ordering Provider: EMIR GRACIA Report Released Date/Time: Apr 19, 2024 09:46 AM Reporting Lab: [facility] [phone] Performing Lab: [facility] [address] CREATININE 1.0 mg/dL 0.5-1.0 UREA NITROGEN 10 [...] Apr 19, 2024 09:46 AM Reporting Lab: [facility] [id number] Performing Lab: [facility] [address] WBC 5.5 4.0-11.0 RBC 4.74 4.00-5.40 HGB [...] Latasha pitts Mar 27, 2023 09:00 AM [place]-TOBACCO FORMER USER [facility] Tobacco Use History This section includes a history of the smoking, or tobacco-related health factors, that were collected on or before the date of the Encounter. The data comes from the [place] facility where the Encounter took place. Date/Time Smoking Status/Tobacco Use Comment F acility Mar 27, 2023 09:00 AM [place]-TOBACCO QUIT 5 TO < 15 YRS [facility] Advance Directives: All historical and current [...] 05, 2024 ADVANCE DIRECTIVE DISCUSSION SHAHID HURTADO [facility] Radiology Reports: +/- 30 days of the [...] the Encounter. The data comes from all [place] treatment facilities. Date/Time Radiology Report Provider Source Apr 19, 2024 09:48 AM CHEST 2 VIEWS PA A ND LAT: BILLIE ZAVALA [id number] -1980 F Exm Date: APR 19, 2024@09:48 Req Phys: EMIR GRACIA Loc: [facility] PACT DIAMONDS (Req'g Loc) Img Loc: [facility] RADIOLOGY Service: Unknown Screen: [place] [address] (Case [id number] COMPLETE) CHEST 2 VIEWS PA AND LAT (RAD Detailed) CPT:69390 Reason for Study: chest pain Clinical History: [place] IS NOT under investigation for COVID-19 or is COVID-19 negative chest pain Responsible provider name and phone number to notify for critical findings if other than user placing the order and pager listed below: User placing orders pager: LAST CREATININE 1.0 (12/21/23) Report Status: Verified Date Reported: APR 19, 2024 Date Verified: APR 19, 2024 Bath Design Sales Consultant E-Sig:/ES/PIA VARGAS MD, FACR, CCD Report: EXAMINATION: CHEST 2 VIEWS PA AND LAT 04/19/2024 9:48 AM INDICATION: chest pain COMPARISON: None. FINDINGS: The cardiac silhouette and pulmonary vasculature are within normal limits. The lungs appear clear of infiltrate. No pleural fluid identified. Impression: No active pulmonary disease visualized. Primary Interpreting Staff: PIA VARGAS MD, FACR, STAFF RADIOLOGIST (Bath Design Sales Consultant) /PIA [facility] Encounter Notes: All associated encounter notes This section contains the clinical notes associated to the Encounter. Date/Time Encounter Note(s) Provider Source Apr 27, 2024 09:39 AM ADDENDUM: LOCAL TITLE: Addendum STANDARD TITLE: ADDENDUM DATE OF NOTE: APR 27, 2024@09:39:26 ENTRY DATE: APR 27, 2024@09:39:26 AUTHOR: JASON LINARES COSIGNER: URGENCY: STATUS: COMPLETED FYI /lilia/ JASON LINARES Advanced front end assistant Signed: 04/27/2024 09:39 Receipt Acknowledged By: 04/27/2024 10:46 /es/ TROY Grace Director Medical Economics --- Original Document --- 04/26/24 NO SHOW NOTE: Patient did not appear for scheduled appointment. Risk Factors: history of SI/suicide attempt, recent hospitalization, insomnia, relationship issues, sexual orientation, trauma history, race Protective Factors: responsibility to others, children in the home, hope for the future, desire to live, help seeking behaviors, positive therapeutic alliance Clinician Judgment of Risk: Intermediate acute, High chronic Plan Based on Clinician Judgment of Risk: Left voicemail requesting call the clinic to check in. Emphasized the importance of making contact and left clinic phone number. Noted that we do not have future appointments scheduled. Last note indicated that [place] denied current SI and she has had a busy school schedule so will continue outreach attempts. Is the identified with a high risk for suicide flag? Yes signed suicide prevention program case management to note /lilia/ TROY Grace Director Medical Economics Signed: 04/26/2024 10:04 Receipt Acknowledged By: 04/27/2024 09:39 /es/ JASON LINARES Advanced front end assistant 04/26/2024 11:36 /es/ RAJNI ALEJOSW SUICIDE PREVENTION MANAGER TALENT ACQUISITION 04/26/2024 ADDENDUM STATUS: COMPLETED Miss Zavala called back to reschedule her appt she had missed, no appts available stated she was fine with waiting till May 11 her next appt. /lilia/ WOLFGANG JESUS MSA MSA Jw [place] [facility] Signed: 04/26/2024 16:07 [facility]ASON LINARES [facility] Apr 26, 2024 09:58 AM NO SHOW NOTE: LOCAL TITLE: NO SHOW NOTE STANDARD TITLE: NO SHOW NOTE DATE OF NOTE: APR 26, 2024@09:58 ENTRY DATE: APR 26, 2024@09:58:31 AUTHOR: MILI LOPEZ COSIGNER: URGENCY: STATUS: COMPLETED NO SHOW NOTE Has ADDENDA Patient did not appear for scheduled appointment. Risk Factors: history of SI/suicide attempt, recent hospitalization, insomnia, relationship issues, sexual orientation, trauma history, race Protective Factors: responsibility to others, children in the home, hope for the future, desire to live, help seeking behaviors, positive therapeutic alliance Clinician Judgment of Risk: Intermediate acute, High chronic Plan Based on Clinician Judgment of Risk: Left voicemail requesting call the clinic to check in. Emphasized the importance of making contact and left clinic phone number. Noted that we do not have future appointments scheduled. Last note indicated that [place] denied current SI and she has had a busy school schedule so will continue outreach attempts. Is the identified with a high risk for suicide flag? Yes signed suicide prevention program case management to note /lilia/ TROY Grace Director Medical Economics Signed: 04/26/2024 10:04 Receipt Acknowledged By: 04/27/2024 09:39 /es/ JASON LINARES Advanced front end assistant 04/26/2024 11:36 /lilia/ FRANCESCA ALEJO SUICIDE PREVENTION MANAGER TALENT ACQUISITION 04/26/2024 ADDENDUM STATUS: COMPLETED Miss Zavala called back to reschedule her appt she had missed, no appts available stated she was fine with waiting till May 11 her next appt. /es/ WOLFGANG JESUS MSA MSA P [facility] Signed: 04/26/2024 16:07 04/27/2024 ADDENDUM STATUS: COMPLETED FYI /es/ JASON LINARES Advanced front end assistant Signed: 04/27/2024 09:39 Receipt Acknowledged By: 04/27/2024 10:46 /lilia/ TROY Grace Director Medical Economics 04/27/2024 ADDENDUM STATUS: COMPLETED High Risk No Show Follow Up: Marshall presented to appt on this 04/27/24. Welfare check not indicated. /lilia/ FRANCESCA ALEJO SUICIDE PREVENTION MANAGER TALENT ACQUISITION Signed: 04/27/2024 18:56 MILI LOPEZ [facility]
--- OUTSIDE RECORDS SUMMARY | 2024-05-04 07:55 | XMS_ITS | Encounter Summary ---
Author Name [facility] [place] Organization [facility] [place] Address [address] [place] [address] Care Team Providers Care Jewel Bearing Grinder Name Role Phone EMIR GRACIA Primary Care Provider Unavailabl e Selected Encounter This section includes the information on record at [place] for the Encounter. Date/Time Encounter Type Encounter Description Reason Provider Source Feb 11, 2024 04:22 PM MTMS BY PHARM EST 15 MIN TELEPHONE ICD-10-CM F33.2 Major depressv disorder, 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 psych features DOROTHY,GURPREET TTE D [facility] Encounter Template Text not used by [place] Assessments - Encounter Diagnoses This section includes the primary and secondary diagnoses documented for the Encounter. Date/Time Primary/Secondary Diagnosis Diagnosis Name Provider Source Feb 11, 2024 04:22 PM PRIMARY Major depressv disorder, 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 psych features DOROTHY,GURPREET TTE D [facility] Feb 11, 2024 04:22 PM SECONDARY Generalized anxiety disorder DOROTHY,GURPREET TTE D [facility] Feb 11, 2024 04:22 PM SECONDARY Post-traumatic stress disorder, chronic DOROTHY,GURPREET TTE D [facility] Plan of Treatment: Future Appointments [...] Appointment Type Appointme nt Facility Name Feb 18, 2024 11:00 AM AMBULATORY [facility] Feb 19, 2024 03:00 PM AMBULATORY - PSYCHIATRY [facility] Feb 25, 2024 11:00 AM AM[facility] [place] Mar 02, 2024 11:00 AM AM[facility] Mar 03, 2024 10:30 AM AM[facility]ULATORY [facility] Mar 10, 2024 11:00 AM AM[facility]ULATORY [facility] [place] Mar 24, 2024 11:00 AM AM[facility]ORY [facility] Mar 25, 2024 09:00 AM AMBULATORY - PSY[facility]IATRY [facility] Apr 05, 2024 08:30 AM [facility] [place] [facility] Apr 09, 2024 01:00 PM AMBULATORY - PSYCHIATRY [facility] Apr 09, 2024 02:30 PM AMBULATORY - PSYCHIATRY [facility] Apr 12, 2024 09:30 AM [facility] [place] [facility] Apr 19, 2024 09:00 AM AMBULATORY - MEDICINE LEEANN MARILUZROLDAN [facility] Apr 20, 2024 01:00 PM AMBULATORY - PSYCHIATRY [facility] Apr 26, 2024 09:30 AM [facility] [place] [facility] Apr 27, 2024 01:00 PM AMBULATORY - PSYCHIATRY [facility] Apr 28, 2024 01:00 PM AM[facility] [place] [place] [facility] May 05, 2024 05:00 PM AMBULATORY - NONE [facility] May 11, 2024 09:00 AM AM[facility] [place] [facility] May 11, 2024 01:00 PM AMBULATORY - PSYCHIATRY TW [facility] Social History: Smoking Status (Most current) and Tobacco Use (All prior to encounter date) This section includes the most current, and the historical, smoking and tobacco- related health factors from the [place] facility where the Encounter took place. Current Smoking Status This section includes the most current smoking, or tobacco-related health factor, from the [place] facility where the Encounter took place. Date/Time Current Smoking Status Comment Latasha chavezy Jan 05, 2024 12:00 PM VA-TOBACCO FORMER USER [facility] Tobacco Use History This section includes a history of the smoking, or tobacco-related health factors, that were collected on or before the date of the Encounter. The data comes from the [place] facility where the Encounter took place. Date/Time Smoking Status/Tobacco Use Comment F acility Jan 05, 2024 12:00 PM VA-TOBACCO QUIT 5 TO < 15 YRS [facility] Advance Directives: All historical and current Section Date Range: From patient's date of to the date document was created. This section includes ALL of a patient's completed or amended [place] Advance and Rescinded Directives. The entries below indicate that a directive exists for the patient, but an actual copy is not included with this document. The data comes from all [facility]. Date Advance Directives Provider Source Jan 05, 2024 ADVANCE DIRECTIVE DISCUSSION SHAHID HURTADO [facility] Encounter Notes: All associated encounter notes This section contains the clinical notes associated to the Encounter. Date/Time Encounter Note(s) Provider Source Feb 11, 2024 04:22 PM PHARMACY NOTE: LOCAL TITLE: PHARMACOTHERAPY-CLINICAL PHARMACY NOTE STANDARD TITLE: PHARMACY NOTE DATE OF NOTE: FEB 11, 2024@16:22 ENTRY DATE: FEB 11, 2024@16:23:16 AUTHOR: SCARLETT DE LA CRUZ EXP COSIGNER: URGENCY: STATUS: COMPLETED MENTAL HEALTH PHARMACY SERVICE TYPE: -Phone SPOKE WITH: [X] /PATIENT [] OTHER: 's identity verified by full name and social security number. S: QUINTIN ZAVALA PEDRITO is a 43 y/o FEMALE called for an unscheduled medication management appointment after production underwriter was alerted to worsening depressive symptoms. Medication changes made at last visit 01/29/24: o Continue duloxetine 60mg PO daily for mood o Reduce quetiapine to 100mg PO QAM and 300mg PO QHS for depression o Continue quetiapine 25mg PO TID prn anxiety o Continue trazodone 50mg PO QHS prn sleep Mental Health Diagnoses: - Major Depressive Disorder, recurrent, severe (per 01/14/24 PSYCHIATRIC EVAL AND MANAGEMENT note) - Post Traumatic Stress Disorder (per 01/14/24 PSYCHIATRIC EVAL AND MANAGEMENT note) - generalized anxiety disorder (per problem list) Pertinent Medical Diagnoses: - pain related to pancreatitis Medications: - duloxetine 60mg PO daily for mood o Taking as prescribed in the morning - quetiapine 100mg PO QAM and 300mg PO QHS for depression o Taking as prescribed - quetiapine 25mg PO TID prn anxiety o Taking about 1-2x weekly - trazodone 50mg PO QHS prn [...] (confusions, hallucinations) - quetiapine up to 500mg/day (12/29/2023-) - trazodone 50mg PO QHS for sleep (12/29/2023) SUBJECTIVE & BACKGROUND CC: I'd rather be somnolent than depressed Alderson has been feeling more depressed and down since decreasing quetiapine. She endorses increased passive SI. She denies intent/plan today. She feels that she was less sedated on the lower dose, but she is more concerned about her mental health as this time. Alderson would like to return to taking quetiapine 200mg in the morning. OBJECTIVE History of Side Effects/ADRs per Patient and [...] FOR SEVERE ALLERGIC REACTION 15) QUETIAPINE FUMARATE 100MG TAB TAKE ONE TABLET BY ACTIVE MOUTH [...] No Active Remote Medications for this patient Vitals/lab values: Wt: 206.0 lb [93.44 kg] [...] 0 (01/19/24) EKG: none on file ASSESSMENT: Alderson is a 43 y/o FEMALE with depression, anxiety, and PTSD who is prescribed duloxetine, quetiapine, and trazodone. Mood has worsened after reducing quetiapine. While quetiapine causes daytime sedation at higher doses, feels the risk outweighs the benefits. Therefore, will increase quetiapine back to former dosing as MH symptoms were stable with a total of 500mg/day. Given that maximum recommended dosing for depression augmentation with quetiapine is 300mg/day, can consider tapering/switching quetiapine once the Alderson has remained stable for a longer period of time after recent hospitalization/PPH. Due to the unscheduled nature of this call, duloxetine and trazodone were not discussed in depth. Given past benefits with these medications, will continue as prescribed. Will plan to follow-up next week as scheduled to complete a full assessment. No acute safety concerns. Discussed risks, benefits, side effects and alternatives to treatment (including no treatment) and is agreeable to the plan. VETERANS CURRENT QUESTIONS AND NEEDS REGARDING MENTAL HEALTH SERVICES ADDRESSED. PLAN: #Medications o Continue duloxetine 60mg PO daily for mood o Increase quetiapine to 200mg PO QAM and 300mg PO QHS for depression o Continue quetiapine 25mg PO TID prn anxiety o Continue trazodone 50mg PO QHS prn sleep #Non-Pharm o Continue psychotherapy #FOLLOW UP: o In 1 week with pharmacist, sooner as needed FUTURE APPOINTMENTS: 02/18/2024 11:00 [facility] 02/19/2024 15:00 [facility] 02/25/2024 11:00 [facility] 03/02/2024 11:00 [facility] 03/03/2024 10:30 [facility] 03/10/2024 11:00 [facility] 03/17/2024 11:00 [facility] Time Spent: 15 min Alderson acknowledges understanding of their medication regimen including common side effects and what to expect from pharmacotherapy. Alderson agrees to contact this clinic with any concerns prior to next appointment. Alderson agrees with plan detailed below and will access crisis services as needed. - was educated on ability to walk in to clinic for non-urgent mental health and/or medical assistance. -Alderson directed to report to the nearest emergency room for urgent mental health or medical issues. -Alderson educated on the [facility] [employer] Crisis Line for assistance with triaging mental health concerns and educated on safety and risk and use of [facility] for crisis situations. - provided with [facility] Crisis Line number at 988. Press 1 to talk with someone right away. /lilia/ SCARLETT DE LA CRUZ Mental Health Clinical Pharmacist Practitioner Signed: 02/11/2024 16:38 SCARLETT DE LA CRUZ [facility]
--- OUTSIDE RECORDS SUMMARY | 2024-05-04 07:55 | XMS_ITS | Encounter Summary ---
Author Name [facility] [place] Organization [facility] [place] Address [address] [place] [address] Care Team Providers Care District Gauger Name Role Phone EMIR GRACIA Primary Care Provider Unavailabl e Selected Encounter This section includes the information on record at [place] for the Encounter. Date/Time Encounter Type Encounter Description Reason Pro vider Source Mar 15, 2024 11:15 AM Outpatient Encounter MENTAL HEALTH [facility] Encounter Template Text not used by [place] Plan of Treatment: Future Appointments (+ 6 [...] Appointment Type Appointme nt Facility Name Mar 24, 2024 11:00 AM [facility]ATORY [facility] Mar 25, 2024 09:00 AM AMBULATORY [place] [facility] Apr 05, 2024 08:30 AM [facility] Apr 09, 2024 01:00 PM AMBULATORY - PSYCHIATRY TW [facility] Apr 09, 2024 02:30 PM AMBULATORY [facility]IATRY [place] [facility] Apr 12, 2024 09:30 AM [facility] [place] [place] [facility] Apr 19, 2024 09:00 AM AMBULATORY - MEDICINE LEEANN RAWLS [facility] Apr 20, 2024 01:00 PM AMBULATORY - PSYCHIATRY TW IN [facility] Apr 26, 2024 09:30 AM AM[facility] [place]AT[place] [facility] Apr 27, 2024 01:00 PM AMBULATORY - PSYCHIATRY TW IN [facility] Apr 28, 2024 01:00 PM [facility] [place] [facility] May 05, 2024 05:00 [place] [facility] [place] [facility] [facility] May 11, 2024 09:00 AM [facility] [place] [place] [facility] May 11, 2024 01:00 PM AMBULATORY - PSYCHIATRY TW IN [facility] May 18, 2024 11:00 AM AMBULATORY - PSYCHIATRY TW IN [facility] May 18, 2024 01:00 PM [facility] [place] May 24, 2024 08:30 AM AMBULATORY - PS[place]CHIATRY [place] [facility] Active, Pending, and Scheduled Orders This section includes a listing of several types of active, pending, and scheduled orders, including clinic medications orders, diagnostic test orders, procedure orders and consult orders; where the start date of the order is 45 days before the date of the Encounter or 45 days after the date of theEncounter. The data comes from all [place] treatment facilities. Test Date/Time Test Type Test Details Facility Name Apr 19, 2024 09:46 AM Consult Order CARDIAC EC HO OUTPT-ALL SITES Cons Screen [employer] [facility] Apr 19, 2024 10:08 AM Consult Order CARDIAC EC HO-SPECIAL PROCEDURE Cons [facility] Apr 19, 2024 10:47 AM Consult Order COMMUNITY CARE-NUCLEAR MEDICINE Cons [facility] [employer] [facility] Social History: Smoking Status (Most current) and [...] place. Date/Time Current Smoking Status Loretta pitts Jan 05, 2024 12:00 PM VA-TOBACCO FORMER USER [facility] Tobacco Use History This section includes a history of the smoking, or tobacco-related health factors, that were collected on or before the date of the Encounter. The data comes from the [place] facility where the Encounter took place. Date/Time Smoking Status/Tobacco Use Comment F acility Jan 05, 2024 12:00 PM VA-TOBACCO QUIT 5 TO < 15 YRS [facility] Advance Directives: All historical and current [...] 05, 2024 ADVANCE DIRECTIVE DISCUSSION SHAHID HURTADO [facility] Encounter Notes: All associated encounter notes This section contains the clinical notes associated to the Encounter. Date/Time Encounter Note(s) Provider Source Mar 15, 2024 11:15 AM REPORT OF CONTACT: LOCAL TITLE: APPOINTMENT SCHEDULING NOTE STANDARD TITLE: REPORT OF CONTACT DATE OF NOTE: MAR 15, 2024@11:15 ENTRY DATE: MAR 15, 2024@11:15:45 AUTHOR: LAINA BURKETT EXP COSIGNER: URGENCY: STATUS: COMPLETED APPOINTMENT SCHEDULING NOTE Has ADDENDA Attempted to schedule Return to clinic (RTC) Contact attempt made to 1st attempt Telephone 2nd attempt Letter - Sent letter by regular [place] mail to address on file: QUINTIN ZAVALA [address] [place] [phone] Disposition order request after Mar Other: Agreed time is not available If calls back, schedule appt for: [facility] /lilia/ LAINA BURKETT Signed: 03/15/2024 11:16 03/16/2024 ADDENDUM STATUS: COMPLETED 3rd attempt made- left message /sandra BURKETT Signed: 03/16/2024 12:19 LAINA BURKETT [facility]
--- OUTSIDE RECORDS SUMMARY | 2024-05-04 07:55 | XMS_ITS | Encounter Summary ---
Author Name [facility] [place] Organization [facility] [place] Address [address] [place] [address] Care Team Providers Care Music Coordinator Name Role Phone EMIR GRACIA Primary Care Provider Unavailabl e Selected Encounter This section includes the information on record at [place] for the Encounter. Date/Time Encounter Type Encounter Description Reason Provider Source Mar 30, 2024 03:04 PM Outpatient Encounter MENTAL HEALTH [facility] GAYLE HOPKINS Encounter Template Text not used by [place] Plan of Treatment: Future Appointments (+ 6 months) and Future Tests (+/- 45 days) The Plan of Treatment section includes future care activities for the patient from [facility] [place] [facility] This section includes future appointments and future orders which are active, pending or scheduled. Future Appointments This section includes appointments that were scheduled to occur 6 months from the date of the Encounter, up to a maximum of 20 appointments. The data comes from all [place] treatment facilities. Appointment Date/Time Appointment Type Appointme nt Facility Name Apr 05, 2024 08:30 AM AMBULATORY - [facility]ATRY [facility] Apr 09, 2024 01:00 PM AMBULATORY - PSYCHIATRY TW IN [facility] Apr 09, 2024 02:30 PM AMBULATORY - PS[facility]CHIATRY [facility] Apr 12, 2024 09:30 AM AMBULATORY - [facility]ATRY [facility] Apr 19, 2024 09:00 AM AMBULATORY - MEDICINE [facility] Apr 20, 2024 01:00 PM AMBULATORY - PSYCHIATRY TW IN [facility] Apr 26, 2024 09:30 AM AMBULATORY - [facility]IATRY [facility] Apr 27, 2024 01:00 PM AMBULATORY - PSYCHIATRY TW IN [facility] Apr 28, 2024 01:00 PM AMBULATORY - [facility]ATRY [facility] May 05, 2024 05:00 PM AMBULATORY - NONE [place] [facility] May 11, 2024 09:00 AM AMBULATORY - [facility]IATRY [facility] May 11, 2024 01:00 PM AMBULATORY - PSYCHIATRY TW IN [facility] May 18, 2024 11:00 AM AMBULATORY - PSYCHIATRY TW IN [facility] May 18, 2024 01:00 PM AMBULATORY - [place]ICINE [place] [facility] May 24, 2024 08:30 AM [facility] Active, Pending, and Scheduled Orders This section includes a listing of several types of active, pending, and scheduled orders, including clinic medications orders, diagnostic test orders, procedure orders and consult orders; where the start date of the order is 45 days before the date of the Encounter or 45 days after the date of theEncounter. The data comes from all [place] treatment facilities. Test Date/Time Test Type Test Details Facility Name Apr 19, 2024 09:46 AM Consult Order CARDIAC EC HO OUTPT-ALL SITES Cons [facility] Apr 19, 2024 10:08 AM Consult Order CARDIAC EC HO-SPECIAL PROCEDURE Cons [facility] Apr 19, 2024 10:47 AM Consult Order COMMUNITY CARE-NUCLEAR MEDICINE Cons [facility] Lab Results: +/- 30 days of the encounter This section includes the Chemistry and Hematology Lab Results on record with [place] for the patient. Radiology Reports and Pathology Reports are provided separately, in subsequent sections. Lab Results This section contains the Chemistry/Hematology Results that were resulted 30 days before or 30 daysafter the date of the Encounter. Date/Time Source Result Type Result - Unit Interpretation Reference Range Comment Apr 19, 2024 10:21 AM [facility] HEMOGLOBIN A1C Specimen Type: BLOOD [...] Apr 19, 2024 09:46 AM Reporting Lab: [place] [phone] Performing Lab: [place] [phone] HEMOGLOBIN A1C 4.9 4.0-6.0 Apr 19, 2024 10:21 AM [facility] TSH W/REFLEX TO FREE T4 Specimen Type: PLASMA Comment: Elevated triglyceride result from a non-fasting specimen should be interpreted with caution. A fasting panel is recommended for accurate triglycerides when trigs are >200 from a non-fasting specimen. Ordering Provider: EMIR GRACIA Report Released Date/Time: Apr 19, 2024 09:46 AM Reporting Lab: [place] [phone] Performing Lab: [place] [phone] TSH 0.69 u[IU]/mL 0.35-4.94 Apr 19, 2024 10:21 AM Adynxx LIPID PANEL,NON-FASTING Specimen Type: PLASMA Comment: Elevated triglyceride result from a non-fasting specimen should be interpreted with caution. A fasting panel is recommended for accurate triglycerides when trigs are >200 from a non-fasting specimen. Ordering Provider: EMIR GRACIA Report Released Date/Time: Apr 19, 2024 09:46 AM Reporting Lab: [place] [phone] Performing Lab: [place] [phone] CHOLESTEROL 263 mg/dL H <199 .HDL 38 mg/dL L >50 LDL CALCULATION 151 mg/dL H <99 VLDL CALCULATION 74 mg/dL H <29 NON HDL CHOLESTEROL 225 mg/dL H <129 TRIG(NON FASTING) 368 mg/dL H <149 Apr 19, 2024 10:21 AM Adynxx ANTI-HEP C(EIA) Specimen Type: SERUM No comment entered. Ordering Provider: EMIR GRACIA Report Released Date/Time: Apr 19, 2024 10:00 AM Reporting Lab: [facility] [id number] Performing Lab: [facility] [id number] ANTI-HEP C(EIA) NEGATIVE NEGATIVE Apr 19, 2024 10:21 AM [facility] NOEL COMPREHENSIVE METABOLIC PANEL+MG Specimen Type: PLASMA Comment: Elevated triglyceride result from a non-fasting specimen should be interpreted with caution. A fasting panel is recommended for accurate triglycerides when trigs are >200 from a non-fasting specimen. Ordering Provider: EMIR GRACIA Report Released Date/Time: Apr 19, 2024 09:46 AM Reporting Lab: [facility] [phone] Performing Lab: [facility] [id number] CREATININE 1.0 mg/dL 0.5-1.0 UREA NITROGEN 10 [...] Apr 19, 2024 09:46 AM Reporting Lab: [facility] [id number] Performing Lab: [facility] [id number] WBC 5.5 4.0-11.0 RBC 4.74 4.00-5.40 HGB [...] and tobacco- related health factors from the [place] facility where the Encounter took place. Current Smoking Status This section includes the most current smoking, or tobacco-related health factor, from the [place] facility where the Encounter took place. Date/Time Current Smoking Status Comment Facil ity Jan 05, 2024 12:00 PM VA-TOBACCO FORMER USER [facility] Tobacco Use History This section includes a history of the smoking, or tobacco-related health factors, that were collected on or before the date of the Encounter. The data comes from the [place] facility where the Encounter took place. Date/Time Smoking Status/Tobacco Use Comment F acility Jan 05, 2024 12:00 PM AL-TOBACCO QUIT 5 TO < 15 YRS [facility] Advance Directives: All historical and current Section Date Range: From patient's date of to the date document was created. This section includes ALL of a patient's completed or amended [place] Advance and Rescinded Directives. The entries below indicate that a directive exists for the patient, but an actual copy is not included with this document. The data comes from all [facility]. Date Advance Directives Provider Source Jan 05, 2024 ADVANCE DIRECTIVE DISCUSSION SHAHID HURTADO [facility] Radiology Reports: +/- 30 days of [...] the Encounter. The data comes from all [place] treatment facilities. Date/Time Radiology Report Provider Source Apr 19, 2024 09:48 AM CHEST 2 VIEWS PA A ND LAT: BILLIE ZAVALA [id number] -[id number] F Exm Date: APR 19, 2024@09:48 Req Phys: EMIR GRACIA Loc: [facility] PACT DIAMONDS (Req'g Loc) Img Loc: [facility] RADIOLOGY Service: Unknown Screen: [place] [address] (Case [id number] COMPLETE) CHEST 2 VIEWS PA AND LAT (RAD Detailed) CPT:61085 Reason for Study: chest pain Clinical History: IS NOT under investigation for COVID-19 or is COVID-19 negative chest pain Responsible provider name and phone number to notify for critical findings if other than user placing the order and pager listed below: User placing orders pager: LAST CREATININE 1.0 (12/21/23) Report Status: Verified Date Reported: APR 19, 2024 Date Verified: APR 19, 2024 Gas Station Operator E-Sig:/ES/PIA VARGAS MD, FACR, CCD Report: EXAMINATION: CHEST 2 VIEWS PA AND LAT 04/19/2024 9:48 AM INDICATION: chest pain COMPARISON: None. FINDINGS: The cardiac silhouette and pulmonary vasculature are within normal limits. The lungs appear clear of infiltrate. No pleural fluid identified. Impression: No active pulmonary disease visualized. Primary Interpreting Staff: PIA VARGAS MD, FACR, STAFF RADIOLOGIST (Gas Station Operator) /PIA OLGUIN [facility] Encounter Notes: All associated encounter notes This section contains the clinical notes associated to the Encounter. Date/Time Encounter Note(s) Provider Source Mar 30, 2024 03:04 PM MENTAL HEALTH [facility] RECORD FLAG: LOCAL TITLE: PATIENT RECORD FLAG CATEGORY I - HIGH RISK FOR SUIC STANDARD TITLE: MENTAL HEALTH PATIENT RECORD FLAG DATE OF NOTE: MAR 30, 2024@15:04 ENTRY DATE: MAR 30, 2024@15:04:27 AUTHOR: GAYLE HOPKINS COSIGNER: URGENCY: STATUS: COMPLETED PATIENT RECORD FLAG - HIGH RISK FOR SUICIDE Patient Record Flag (PRF) High Risk for Suicide (HRS) Review, Continue Active Flag The Wadsworth's status for HRS-PRF placement has been reviewed. It has been determined that the remains in a period of high risk for suicide. The PRF for High Risk for Suicide will be continued and re-evaluated on: Date: 04/29/2024 Please continue to provide enhanced care for the Wadsworth as outlined below. ALL [place] STAFF: - Please be attentive, friendly, supportive and respectful of the 's privacy. - Please be alert to the Wadsworth making any reports of suicidal self-directed violence, and/or seeking access to means to harm self such as extra medications or firearms, or talking or writing about , dying or suicide. - If the Wadsworth reports imminent suicidal behavior or is in active crisis, activate your facility crisis response procedures and notify the Wadsworth's Mental Health Trimmer Climber (MHTC) or Provider and the facility Suicide Digital Measurement Advisor (SPC). Mental Health Trimmer Climber or Provider: Frances SIMMONS Suicide Digital Measurement Advisor: Gayle Hopkins [facility] Facility Contact Phone Number: [facility] [phone] COMMUNITY PROVIDERS: Please contact the identified SPC for care coordination, consultation, if the Wadsworth reports any new episodes of suicidal self-directed violence, or if the Wadsworth is admitted to a mental health inpatient or residential facility. THE MENTAL HEALTH CALL OR CONTACT CENTRE MANAGER or PROVIDER for the should initiate the following procedures: 1. Please ensure a Safety Plan has been completed within 7 days before or after HRS-PRF placement, or prior to discharge from inpatient/residential care, and is reviewed and/or revised regularly. 2. Please ensure the is offered four mental health appointments within the first 30 days after HRS-PRF placement and at least one mental health appointment monthly thereafter until the HRS-PRF has been inactivated. Content of appointments should include review or updating of the 's Safety Plan, suicide risk mitigation strategies, and enhancement of coping mechanisms. MISSED OR CANCELLED APPOINTMENTS: If the cancels or no-shows to an appointment, designated outreach procedures should be implemented and appropriately documented. Cancellations or no shows for mental health appointments require outreach per scheduling policy. /lilia/ FRANCESCA ALEJO SUICIDE PREVENTION SIDE GLUER Signed: 03/30/2024 15:05 Receipt Acknowledged By: 03/31/2024 08:25 /es/ NICOLETTE ORR SUICIDE PREVENTION AMSA 03/30/2024 16:15 /es/ TROY Grace Electronics Supervisor 03/31/2024 09:49 /es/ Triny Alonso MD Psychiatrist 03/30/2024 15:49 /es/ DARELL CARDOZA PsyD, STAFF PSYCHOLOGIST GAYLE HOPKINS [facility]
--- OUTSIDE RECORDS SUMMARY | 2024-05-04 07:55 | XMS_ITS ---
Author Name [facility] [place] [place] Organization [place] Address [address] [place] [address] Care Team Providers Care Mica Miner Blasting Name Role Phone EMIR GRACIA Primary Care Provider Unavailabl e Selected Encounter This section includes the information on record at [place] for the Encounter. Date/Time Encounter Type Encounter Description Reason Provider Source Feb 18, 2024 11:00 [facility] - IND ICD-10-CM F43.12 Post-traumatic stress disorder, chronic NIMA LOPEZ Lorie Encounter Template Text not used by [place] Assessments - Encounter Diagnoses This section includes the primary and secondary diagnoses documented for the Encounter. Date/Time Primary/Secondary Diagnosis Diagnosis Name Provider Source Feb 18, 2024 12:05 PM PRIMARY Post-traumatic stress disorder, chronic [facility] Feb 18, 2024 12:05 PM SECONDARY Suicidal ideations SCOTT LOPEZ [facility] Plan of Treatment: Future Appointments (+ [...] Appointment Type Appointme nt Facility Name Feb 19, 2024 03:00 PM AMBULATORY - [place]ATRY [place] [facility] Feb 25, 2024 11:00 AM [...] 25, 2024 09:00 AM AMBULATORY - PS[place]CHIATRY [place] [facility] Apr 05, 2024 08:30 AM AMBULATORY - PS[facility]CHIATRY [facility] Apr 09, 2024 01:00 PM AMBULATORY - PSYCHIATRY TW IN [facility] Apr 09, 2024 02:30 PM AMBULATORY - PSYCHIATRY [place] [facility] Apr 12, 2024 09:30 AM AMBULATORY - [facility]ATRY [facility] [place] Apr 19, 2024 09:00 AM AMBULATORY - MEDICINE LEEANN MARILUZROLDAN [facility] Apr 20, 2024 01:00 PM AMBULATORY - PSYCHIATRY TW IN [facility] Apr 26, 2024 09:30 AM AMBULATORY - PS[facility]CHIATRY [facility] [place] [facility] Apr 27, 2024 01:00 PM AMBULATORY - PSYCHIATRY TW IN [facility] Apr 28, 2024 01:00 PM AMBULATORY - [facility]IATRY [facility] [place] [facility] May 05, 2024 05:00 PM AMBULATORY - NONE [facility] May 11, 2024 09:00 AM AMBULATORY - PS[facility]IATRY [facility] [place] [facility] May 11, 2024 01:00 PM AMBULATORY - PSYCHIATRY TW IN [facility] May 18, 2024 11:00 AM AMBULATORY - PSYCHIATRY TW IN [facility] Social History: Smoking Status (Most current) and Tobacco Use (All prior to encounter date) This section includes the most current, and the historical, smoking and tobacco- related health factors from the [place] facility where the Encounter took place. Current Smoking Status This section includes the most current smoking, or tobacco-related health factor, from the [place] facility where the Encounter took place. Date/Time Current Smoking Status Loretta pitts Mar 27, 2023 09:00 AM [place] [facility] [place] Use History This section includes a history of the smoking, or tobacco-related health factors, that were collected on or before the date of the Encounter. The data comes from the [place] facility where the Encounter took place. Date/Time Smoking Status/Tobacco Use Comment F acility Mar 27, 2023 09:00 AM VA-TOBACCO QUIT 5 TO < 15 YRS [facility] Advance Directives: All historical and current Section [...] 05, 2024 ADVANCE DIRECTIVE DISCUSSION SHAHID HURTADO [facility] Encounter Notes: All associated encounter notes This section contains the clinical notes associated to the Encounter. Date/Time Encounter Note(s) Provider Source Feb 18, 2024 12:05 PM MENTAL HEALTH NOTE : LOCAL TITLE: MH PROGRESS NOTE STANDARD TITLE: MENTAL HEALTH NOTE DATE OF NOTE: FEB 18, 2024@12:05 ENTRY DATE: FEB 18, 2024@12:05:28 AUTHOR: MILI LOPEZ EXP COSIGNER: URGENCY: STATUS: COMPLETED MH PROGRESS NOTE Has ADDENDA OUTPATIENT MENTAL HEALTH PROGRESS NOTE [place] [facility] [place]: 02/18/2024 Length of Session: 50 minutes Method of Interface: In-person Session #28 Author: MERNA Trevino, HEAD OF ETHICS AND COMPLIANCE Subjective: Met with Quintin Zavala for individual therapy session. She reported feeling slightly better, though said that she was faking it today. She shared that her workman's comp was denied so she hired an commercial real estate attorney who specializes in first responders mental health claims and they agreed that she should not return to work in any capacity. She acknowledged that this creates more financial strain and she is again considering moving back with her ex so she can save the rent money. We discussed what this would mean for her and weighed the pros and cons, concluding that it may be the most beneficial for her while recognizing the need to maintain boundaries. She and her ex will be going on a cruise next month which will provide an opportunity to test the boundaries. Nita shared that she continues to ruminate on difficult calls she had and has recognized that the ones that stand out are related to feeling like others have failed her, bringing her back to the EMDR belief of her needs don't matter. Provided space for her to share and process, and we discussed doing EMDR processing around her work experience. She agreed that it would be helpful, especially as she is returning to school in March and would like to be in a better headspace. 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 Objective: Appearance: Well-groomed, appropriate eye contact Speech: Regular rate/rhythm/volume Motor: Normal Spontaneous movement Mood: Euthymic, improved Affect: Appropriate, full range Thought Content: Some Suicidal Ideation/No Homicidal Ideation No Delusions No Hallucinations Thought Process: Linear/Logical/Goal Oriented Judgement: Good Insight: Good Impulse Control: Good Oriented to Person/Place/Time/Reason for Appointment Assessment: Nita was engaged and receptive throughout. She said that she was faming it today but her affect was improved and she was dressed with more care and attention. She smiled more readily and was more receptive to positive feedback. Risk factors include history of SI/suicide attempt, insomnia, relationship issues, race. Protective factors include responsibility to others, children in the home, hope for the future, desire to live, help seeking behaviors, positive therapeutic alliance. Current risk assessment: Low acute, Intermediate chronic Diagnostic Evaluation: PTSD, chronic Plan: RTC in one week /lilia/ TROY Grace Zone Maintenance Technician Signed: 02/18/2024 12:06 02/18/2024 ADDENDUM STATUS: COMPLETED Care provided: Follow up care covered under the COMPACT Act of 2020 Section 201. Supporting clinical documentation: Please see session content above. /lilia/ TROY Grace Zone Maintenance Technician Signed: 02/18/2024 13:53 MILI LOPEZ [facility]
--- OUTSIDE RECORDS SUMMARY | 2024-05-04 07:55 | XMS_ITS | Encounter Summary ---
Author Name [facility] [place] Organization [facility] [place] Address [address] [place] [address] Care Team Providers Care Wool Hat Finisher Name Role Phone EMIR GRACIA Primary Care Provider Unavailabl e Selected Encounter This section includes the information on record at [place] for the Encounter. Date/Time Encounter Type Encounter Description Reason Provider Source Mar 24, 2024 02:11 PM Outpatient Encounter [facility] HUGO CUETO Encounter Template Text not used by [place] Plan of Treatment: Future Appointments (+ 6 [...] Appointment Type Appointme nt Facility Name Mar 25, 2024 09:00 AM AMBULATORY - PS[facility]IATRY [facility] Apr 05, 2024 08:30 AM AMBULAT[facility] Apr 09, 2024 01:00 PM AMBULATORY - PSYCHIATRY [facility] Apr 09, 2024 02:30 PM AMBULATORY - PS[facility]CHIATRY [facility] Apr 12, 2024 09:30 AM AMBULATORY - [facility]IATRY [facility] Apr 19, 2024 09:00 AM AMBULATORY - MEDICINE [facility] Apr 20, 2024 01:00 PM AMBULATORY - PSYCHIATRY TW IN [facility] Apr 26, 2024 09:30 AM AMBULATORY - [facility]ATRY [facility] Apr 27, 2024 01:00 PM AMBULATORY - PSYCHIATRY TW IN [facility] Apr 28, 2024 01:00 PM AMBULATORY - PS[facility]CHIATRY [facility] [place] May 05, 2024 05:00 PM AMBULATORY - NONE [place] [facility] May 11, 2024 09:00 AM AMBULATORY - PS[facility]CHIATRY [facility] May 11, 2024 01:00 PM AMBULATORY - PSYCHIATRY TW IN [facility] May 18, 2024 11:00 AM AMBULATORY - PSYCHIATRY TW IN [facility] May 18, 2024 01:00 PM AMBULATORY - [place]ICINE [place] [facility] May 24, 2024 08:30 AM AMBULATORY [facility]ATRY [facility] Active, Pending, and Scheduled Orders This section includes a listing of several types of active, pending, and scheduled orders, including clinic medications orders, diagnostic test orders, procedure orders and consult orders; where the start date of the order is 45 days before the date of the Encounter or 45 days after the date of theEncounter. The data comes from all [place] treatment facilities. Test Date/Time Test Type Test Details Facility Name Apr 19, 2024 09:46 AM Consult Order CARDIAC EC HO OUTPT-ALL SITES Cons Cartridge Loader's Choice [facility] Apr 19, 2024 10:08 AM Consult Order CARDIAC EC HO-SPECIAL PROCEDURE Cons [facility] Apr 19, 2024 10:47 AM Consult Order COMMUNITY CARE-NUCLEAR MEDICINE Cons Cartridge Loader's Choice [facility] Lab Results: +/- 30 [...] Range Comment Apr 19, 2024 10:21 AM [facility] HEMOGLOBIN A1C Specimen Type: [...] 2024 09:46 AM Reporting Lab: [facility] [id number] Performing Lab: [facility] [id number] HEMOGLOBIN A1C 4.9 4.0-6.0 Apr 19, 2024 10:21 AM [facility] TSH W/REFLEX TO FREE T4 Specimen Type: PLASMA Comment: Elevated triglyceride result from a non-fasting specimen should be interpreted with caution. A fasting panel is recommended for accurate triglycerides when trigs are >200 from a non-fasting specimen. Ordering Provider: EMIR GRACIA Report Released Date/Time: Apr 19, 2024 09:46 AM Reporting Lab: [facility] [phone] Performing Lab: [facility] [id number] TSH 0.69 u[IU]/mL 0.35-4.94 Apr 19, 2024 10:21 AM [facility] LIPID PANEL,NON-FASTING Specimen Type: PLASMA Comment: Elevated triglyceride result from a non-fasting specimen should be interpreted with caution. A fasting panel is recommended for accurate triglycerides when trigs are >200 from a non-fasting specimen. Ordering Provider: EMIR GRACIA Report Released Date/Time: Apr 19, 2024 09:46 AM Reporting Lab: [facility] [id number] Performing Lab: [facility] [id number] CHOLESTEROL 263 mg/dL H <199 .HDL 38 mg/dL L >50 LDL CALCULATION 151 mg/dL H <99 VLDL CALCULATION 74 mg/dL H <29 NON HDL CHOLESTEROL 225 mg/dL H <129 TRIG(NON FASTING) 368 mg/dL H <149 Apr 19, 2024 10:21 AM [facility] ANTI-HEP C(EIA) Specimen Type: SERUM No comment entered. Ordering Provider: EMIR GRACIA Report Released Date/Time: Apr 19, 2024 10:00 AM Reporting Lab: [facility] [id number] Performing Lab: [facility] [phone] ANTI-HEP C(EIA) NEGATIVE NEGATIVE Apr 19, 2024 10:21 AM [facility] COMPREHENSIVE METABOLIC PANEL+MG Specimen Type: PLASMA Comment: Elevated triglyceride result from a non-fasting specimen should be interpreted with caution. A fasting panel is recommended for accurate triglycerides when trigs are >200 from a non-fasting specimen. Ordering Provider: EMIR GRACIA Report Released Date/Time: Apr 19, 2024 09:46 AM Reporting Lab: [facility] [id number] Performing Lab: [facility] [phone] CREATININE 1.0 mg/dL 0.5-1.0 UREA NITROGEN 10 [...] 71 >60 Apr 19, 2024 10:21 AM [facility] CBC Specimen Type: BLOOD No comment entered. Ordering Provider: EMIR GRACIA Report Released Date/Time: Apr 19, 2024 09:46 AM Reporting Lab: [facility] [id number] Performing Lab: [facility] [id number] WBC 5.5 4.0-11.0 RBC 4.74 4.00-5.40 HGB [...] 05, 2024 12:00 PM VA-TOBACCO FORMER USER [facility] Tobacco Use History This section includes a history of the smoking, or tobacco-related health factors, that were collected on or before the date of the Encounter. The data comes from the [place] facility where the Encounter took place. Date/Time Smoking Status/Tobacco Use Comment F acility Jan 05, 2024 12:00 PM [place]-TO[place]AC[place] QUIT 5 TO < 15 YRS [facility] Advance Directives: All historical and current Section Date Range: From patient's date of to the date document was created. This section includes ALL of a patient's completed or amended [place] Advance and Rescinded Directives. The entries below indicate that a directive exists for the patient, but an actual copy is not included with this document. The [facility]. Date Advance Directives Provider Source Jan 05, 2024 ADVANCE DIRECTIVE DISCUSSION SHAHID HURTADO [facility] Radiology Reports: +/- 30 days [...] the Encounter. The data comes from all [place] treatment facilities. Date/Time Radiology Report Provider Source Apr 19, 2024 09:48 AM CHEST 2 VIEWS PA A ND LAT: BILLIE ZAVALA [id number] [id number] F Exm Date: APR 19, 2024@09:48 Req Phys: EMIR GRACIA Pat Loc: [facility] PACT DIAMONDS (Req'g Loc) Img Loc: [facility] RADIOLOGY Service: Unknown Screen: [place] [address] (Case [id number] COMPLETE) CHEST 2 VIEWS PA AND LAT (RAD Detailed) CPT:93695 Reason for Study: chest pain Clinical History: IS NOT under investigation for COVID-19 or is COVID-19 negative chest pain Responsible provider name and phone number to notify for critical findings if other than user placing the order and pager listed below: User placing orders pager: LAST CREATININE 1.0 (12/21/23) Report Status: Verified Date Reported: APR 19, 2024 Date Verified: APR 19, 2024 Friction Welding Machine Operator E-Sig:/LILIA/PIA VARGAS MD, FACR, CCD Report: EXAMINATION: CHEST 2 VIEWS PA AND LAT 04/19/2024 9:48 AM INDICATION: chest pain COMPARISON: None. FINDINGS: The cardiac silhouette and pulmonary vasculature are within normal limits. The lungs appear clear of infiltrate. No pleural fluid identified. Impression: No active pulmonary disease visualized. Primary Interpreting Staff: PIA VARGAS MD, FACR, STAFF RADIOLOGIST (Friction Welding Machine Operator) /PIA OLGUIN [facility] Encounter Notes: All associated encounter notes This section contains the clinical notes associated to the Encounter. Date/Time Encounter Note(s) Provider Source Mar 24, 2024 02:37 PM ADDENDUM: LOCAL TITLE: Addendum STANDARD TITLE: ADDENDUM DATE OF NOTE: MAR 24, 2024@14:37:43 ENTRY DATE: MAR 24, 2024@14:37:45 AUTHOR: LUCA BEE EXP COSIGNER: URGENCY: STATUS: COMPLETED Care provided: 30 Day Extension of Care The needs a continuation of: Mental Health Care Supporting clinical documentation: Major depressive disorder, recurrent, in partial remission: [place] continues to have suicide ideation daily but no longer expresses suicide intent or plan. She remains on a high risk for suicide flag. /lilia/ Luca Bee MD Psychiatrist Signed: 03/24/2024 14:40 Receipt Acknowledged By: 03/25/2024 07:40 /lilia/ FRANCESCA Wells COMPACT ACT INTERNET SALES MANAGER --- Original Document --- 03/24/24 COMPACT ACT CARE COORDINATION NOTE: COMPACT Act care coordination: Review of episode of care [place] is currently receiving COMPACT Act benefits. The 's current COMPACT Act episode of care is scheduled to on Mar. COMPACT Act benefits may be extended in 30-day increments. Initial extensions must be approved by a Licensed Independent Provider (ELEAZAR)- APPROVED BY FRANCESCA AMIN, [place] 03/24/24. Additional extensions require approval from the facility piano accompanist (COS) or delegate. The following review included: Clinical chart review Consultation with providers was determined to meet eligibility for a 30-day extension. The additional 30 days will be applied to the: Outpatient portion of the COMPACT Act episode of care. Type of extension: Initial 30-day The [place]'s COMPACT Act episode of care is now scheduled to on: Date: April 27, 2024 's care team was informed of the extension to their COMPACT Act episode of care. /lilia/ FRANCESCA Wells COMPACT ACT INTERNET SALES MANAGER Signed: 03/24/2024 14:12 LUCA BEE [facility] Mar 24, 2024 02:11 PM CARE MANAGEMENT NO TE: LOCAL TITLE: COMPACT ACT CARE COORDINATION NOTE STANDARD TITLE: CARE MANAGEMENT NOTE DATE OF NOTE: MAR 24, 2024@14:11 ENTRY DATE: MAR 24, 2024@14:11:20 AUTHOR: HUGO CUETO EXP COSIGNER: URGENCY: STATUS: COMPLETED COMPACT ACT CARE COORDINATION NOTE Has ADDENDA COMPACT Act care coordination: Review of episode of care is currently receiving COMPACT Act benefits. The [place]'s current COMPACT Act episode of care is scheduled to on Mar. COMPACT Act benefits may be extended in 30-day increments. Initial extensions must be approved by a Licensed Independent Provider (ELEAZAR)- APPROVED BY FRANCESCA AMIN, ON 03/24/24. Additional extensions require approval from the facility piano accompanist (COS) or delegate. The following review included: Clinical chart review Consultation with providers [place] was determined to meet eligibility for a 30-day extension. The additional 30 days will be applied to the: Outpatient portion of the COMPACT Act episode of care. Type of extension: Initial 30-day The 's COMPACT Act episode of care is now scheduled to on: Date: April 27, 2024 's care team was informed of the extension to their COMPACT Act episode of care. /lilia/ FRANCESCA Wells COMPACT ACT INTERNET SALES MANAGER Signed: 03/24/2024 14:12 03/24/2024 ADDENDUM STATUS: COMPLETED Care provided: 30 Day Extension of Care The [place] needs a continuation of: Mental Health Care Supporting clinical documentation: Major depressive disorder, recurrent, in partial remission: [place] continues to have suicide ideation daily but no longer expresses suicide intent or plan. She remains on a high risk for suicide flag. /es/ Luca Bee MD Psychiatrist Signed: 03/24/2024 14:40 Receipt Acknowledged By: * AWAITING SIGNATURE * HUGO CUETO EMMA L [facility]
--- OUTSIDE RECORDS SUMMARY | 2024-05-04 07:55 | XMS_ITS | Encounter Summary ---
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 herself as lacking in positive qualities, and may have more of a pessimistic outlook. Interpersonal dysfunction: Her responses suggest that the is more socially introverted, and may have difficulties forming close relationships. The reports conflictual family relationships and a lack of support from family members. Her responses indicated significant suicidal ideation, consistent with her psychiatric history and clinical interview. Somatic concerns: The reported a sense of relative physical well-being; her responses did not indicate significant somatic or cognitive complaints. Findings specifically relevant to the referral question: Her results indicate below-average levels of energy and activation, inconsistent with manic or hypomanic episodes. Her responses do not indicate excessive problems with anger or irritability. The also reported a relatively high overall level of behavioral constraint, which is inconsistent with borderline personality disorder. DIAGNOSES: Post-traumatic stress disorder (Chronic), Major Depressive Disorder (recurrent, mild), gambling disorder (mild, episodic) CONCLUSIONS/RECOMMENDATIONS: Results of this evaluation which consisted of a 2-hour clinical interview, review of 's medical records, MMPI-3 are consistent with a diagnosis of post-traumatic stress disorder and major depressive disorder. With regard to the referral questions, as to whether bipolar disorder or borderline personality disorder are possible diagnoses, the does not meet diagnostic criteria for either. First, she reported no history of distinct manic episodes, a criterion for diagnosis of bipolar disorder. Second, while the reported some symptoms that are aligned with borderline criteria (i.e., feelings of emptiness), she does not meet criteria for borderline personality disorder, given her stable relationships and goals for the future, mood changes that fall within relatively normative ranges, the lack of inappropriate or uncontrollable anger, and the absence of various markers of disconstraint and dysregulation. Both of these conclusions are supported by her responses on the MMPI-3, that are contraindicatory of bipolar disorder or borderline personality disorder. It is likely that 's symptom profile is better explained by her childhood difficulties, PTSD, and depression. For instance, it is likely that the was not able to develop a distinct sense of self in childhood due to the feeling unstable and unsafe at home. Suicidal ideation is consistent with major depressive disorder; it may be that binge eating and gambling were coping behaviors to experience positive emotions, and offer short-term relief from depressive symptoms. Her experiences of trauma throughout her life, and subsequent PTSD symptoms, likely reinforced and amplified these beliefs and behaviors over time. The [place] would benefit from continued trauma-based therapy, increasing positive daily experiences through fostering social support and enjoyed activities, and engaging in gambling-related treatment and skills. To continue addressing her trauma-related symptoms and sleep disturbance, I encourage the to continue on her current treatment plan of EMDR and imagery rehearsal therapy. If further trauma-focused therapy is needed, one recommendation is Cognitive Processing Therapy, which would address some of the strong negative beliefs that the has developed as a result of her traumatic experiences. 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 The reported significant depressive symptoms. One notable strength is the patient's awareness of patterns of suicidal ideation, and her engagement with mental health treatment to monitor this risk (i.e., safety plan, weekly therapy check-ins, asking for a flag in CPRS). The may benefit from behavioral activation. Given that some of the 's hobbies are restricted by location and finances (i.e., cruises and scuba diving), integrating positive experiences into the 's day to day activities would be useful. Given limited social support from her family, the may also benefit from connecting to social support, which has been shown to buffer against depression and stress. There are notable strengths in her social network, such as having a supportive relationship with her ex-, and good relationships with her children. She may consider connecting more regularly with her existing social network, or developing more social connections within her current hobbies. Finally, the reported a pattern of gambling which she described as 'compulsive' and consistently spends more than intended. Given her long-term goal of financial independence, and interest in cruises as a hobby and avenue for scuba diving, it is clinically relevant to address gambling due to reported negative financial and emotional consequences. The would likely benefit from a referral for gambling treatment and skills. Helga Purcell MS Overhead Crane Operator /es/ HELGA PURCELL M.S. BICYCLE SERVICE TECHNICIAN Signed: 04/09/2024 15:33 /es/ OSMANI CURRIE, Ph.D. STAFF PSYCHOLOGIST Cosigned: 04/09/2024 15:43 HELGA PURCELL [facility]
--- OUTSIDE RECORDS SUMMARY | 2024-05-04 07:55 | XMS_ITS ---
Author Name [facility] [place] Organization [facility] [place] Address [address] [place] [address] Care Team Providers Care Drilling Plant Operator Name Role Phone BASIL EMIR Primary Care Provider Unavailabl e Selected Encounter This section includes the information on record at [place] for the Encounter. Date/Time Encounter Type Encounter Description Reason Provider Source Mar 10, 2024 11:00 AM CRISIS INTERVEN [facility] - IND ICD-10-CM F43.12 Post-traumatic stress disorder, chronic NIMA LOPEZ Lorie Encounter Template Text not used by [place] Assessments - Encounter Diagnoses This section includes the primary and secondary diagnoses documented for the Encounter. Date/Time Primary/Secondary Diagnosis Diagnosis Name Provider Source Mar 10, 2024 12:00 PM PRIMARY Post-traumatic stress disorder, chronic SCOTT LOPEZ [facility] Mar 10, 2024 12:00 PM SECONDARY Suicidal ideations SCOTT LOPEZ [facility] Plan of Treatment: Future Appointments (+ [...] 20 appointments. The [facility] comes from [facility] Appointment Date/Time Appointment Type Appointme nt Facility Name Mar 24, 2024 11:00 AM AMBULATORY - PSYCHIATRY [facility] Mar 25, 2024 09:00 AM AMBULATORY [place]AT[place] [facility] Apr 05, 2024 08:30 AM AMBULATORY - PSYCHIATRY [facility] Apr 09, 2024 01:00 PM AMBULATORY - PSYCHIATRY [facility] Apr 09, 2024 02:30 PM AMBULATORY [place]AT[place] [facility] Apr 12, 2024 09:30 AM AMBULATORY - PSYCHIATRY [facility] Apr 19, 2024 09:00 AM AMBULATORY - MEDICINE LEEANN MARILUZROLDAN [facility] Apr 20, 2024 01:00 PM AMBULATORY - PSYCHIATRY [facility] Apr 26, 2024 09:30 AM AMBULATORY - PSYCHIATRY [place] [facility] Apr 27, 2024 01:00 PM AMBULATORY - PSYCHIATRY [facility] Apr 28, 2024 01:00 PM AMBULATORY - PSYCHIATRY [facility] [place] [facility] May 05, 2024 05:00 PM AMBULATORY - NONE [facility] May 11, 2024 09:00 AM AMBULATORY - PSYCHIATRY [facility] [place] [facility] May 11, 2024 01:00 PM AMBULATORY - PSYCHIATRY [facility] May 18, 2024 11:00 AM AMBULATORY - PSYCHIATRY [facility] May 18, 2024 01:00 PM AMBULATORY - MEDICINE [facility] May 24, 2024 08:30 AM AMBULATORY - PSYCHIATRY [facility] Active, Pending, and Scheduled Orders This section includes a listing of several types of active, pending, and scheduled orders, including clinic medications orders, diagnostic test orders, procedure orders and consult orders; where the start date of the order is 45 days before the date of the Encounter or 45 days after the date of theEncounter. The data comes from all [facility]. Test Date/Time Test Type Test Details Facility Name Apr 19, 2024 09:46 AM Consult Order CARDIAC EC HO OUTPT-ALL SITES Cons Mental Health Worker's Choice [facility] Apr 19, 2024 10:08 AM Consult Order CARDIAC EC HO-SPECIAL PROCEDURE Cons Mental Health Worker's Choice [facility] Apr 19, 2024 10:47 AM Consult Order COMMUNITY CARE-NUCLEAR MEDICINE Cons Mental Health Worker's Choice [facility] Social History: Smoking Status (Most current) [...] Facil ity Mar 27, 2023 09:00 AM [place]-TOBAC[place] QUIT 5 TO < 15 YRS [facility] Tobacco Use History This section includes a history of the smoking, or tobacco-related health factors, that were collected on or before the date of the Encounter. The data comes from the [place] facility where the Encounter took place. Date/Time Smoking Status/Tobacco Use Comment F acility Mar 27, 2023 09:00 AM [place]-TOBACCO QUIT 5 TO < 15 YRS [facility] Advance Directives: All historical and current Section [...] 05, 2024 ADVANCE DIRECTIVE DISCUSSION SHAHID HURTADO [facility] Encounter Notes: All associated encounter notes This section contains the clinical notes associated to the Encounter. Date/Time Encounter Note(s) Provider Source Mar 10, 2024 11:59 AM MENTAL HEALTH NOTE : LOCAL TITLE: MH PROGRESS NOTE STANDARD TITLE: MENTAL HEALTH NOTE DATE OF NOTE: MAR 10, 2024@11:59 ENTRY DATE: MAR 10, 2024@11:59:59 AUTHOR: MILI LOPEZ EXP COSIGNER: URGENCY: STATUS: COMPLETED MH PROGRESS NOTE Has ADDENDA OUTPATIENT MENTAL HEALTH PROGRESS NOTE Clinic: [facility] Date: 03/10/2024 Length of Session: 50 minutes Method of Interface: In-person Session #31 Author: MERNA Trevino, GRAPHITE DISK ASSEMBLER Subjective: Met with Quintin Zavala for individual therapy session. She reported that she is feeling substantially better, with improved mood, motivation, and self-acceptance. We discussed the changed she has experienced over the past couple of weeks and the perspective she has chosen about where she is in her life currently. Discussed the boundaries she needs around her related to her ex and how they will live in the same house. Suggested she write down her reasons and motivations for maintain her boundaries as she was nervous about maintaining rather than falling back into what it easier. Reinforced the strength she has shown over the past couple of months in enforcing and strengthening her boundaries despite being in a vulnerable position. She expressed excitement for her upcoming vacation and has given herself permission to relax and enjoy the trip on her own terms. Objective: Appearance: Well-groomed, appropriate eye contact Speech: Regular rate/rhythm/volume Motor: Normal Spontaneous movement Mood: Euthymic, significantly improved Affect: Appropriate, full range, congruent with mood Thought Content: No Suicidal Ideation/No Homicidal Ideation No Delusions No Hallucinations Thought Process: Linear/Logical/Goal Oriented Judgement: Good Insight: Good Impulse Control: Good Oriented to Person/Place/Time/Reason for Appointment Assessment: was engaged and receptive throughout. She was well regulated today and was future-focused. She displayed significant improvement in affect and behavior, with good perspective and positive self-regard. Risk factors include history of SI/suicide attempt, insomnia, relationship issues, race. Protective factors include responsibility to others, children in the home, hope for the future, desire to live, help seeking behaviors, positive therapeutic alliance. Current risk assessment: Low acute, Intermediate chronic Diagnostic Evaluation: PTSD, chronic Plan: RTC on 03/24/24 /lilia/ TROY [address] Research Engineer Signed: 03/10/2024 12:00 03/11/2024 ADDENDUM STATUS: COMPLETED Care provided: Follow up care covered under the COMPACT Act of 2019 Section 201. Supporting clinical documentation: See detailed information above. /lilia/ TROY [address] Research Engineer Signed: 03/11/2024 14:28 MILI LOPEZ [facility]
--- OUTSIDE RECORDS SUMMARY | 2024-05-04 07:55 | XMS_ITS | Encounter Summary ---
Author Name [facility] [place] [facility] [place] Organization [place] Address [address] [place] [address] Care Team Providers Care Facilities Operations Technician Name Role Phone EMIR GRACIA Primary Care Provider Unavailabl e Selected Encounter This section includes the information on record at [place] for the Encounter. Date/Time Encounter Type Encounter Description Reason Provider Source Feb 07, 2024 12:00 PM UNLISTED THERAPEUTIC PX RECREATION THERAPY SERVICE ICD-10-CM Z51.89 Encounter for other specified aftercare CONCEPCIÓN MEZA Lorie Encounter Template Text not used by [place] Assessments - Encounter Diagnoses This section includes the primary and secondary diagnoses documented for the Encounter. Date/Time Primary/Secondary Diagnosis Diagnosis Name Provider Source Feb 09, 2024 05:06 PM PRIMARY Encounter for other specified aftercare CONCEPCIÓN MEZA [facility] Plan of Treatment: Future [...] 19, 2024 03:00 PM AMBULATORY - PSYCHIATRY [facility] Feb 25, 2024 11:00 AM AMBULATORY [...] 2024 09:00 AM AMBULATORY - PSYCHIATRY [place] [facility] Apr 05, 2024 08:30 AM AMBULATORY - [facility]IATRY [facility] Apr 09, 2024 01:00 PM AMBULATORY - PSYCHIATRY TW IN [facility] Apr 09, 2024 02:30 PM AMBULATORY - PS[facility]CHIATRY [facility] Apr 12, 2024 09:30 AM AMBULATORY - PSYCHIATRY [facility] Apr 19, 2024 09:00 AM AMBULATORY - MEDICINE LEEANN [facility]ROLDAN [facility] Apr 20, 2024 01:00 PM AMBULATORY - PSYCHIATRY TW IN [facility] Apr 26, 2024 09:30 AM AMBULATORY - PSYCHIATRY [facility] Apr 27, 2024 01:00 PM AMBULATORY - PSYCHIATRY TW IN [facility] Apr 28, 2024 01:00 PM AMBULATORY - PS[facility]CHIATRY [facility] May 05, 2024 05:00 PM AMBULATORY - NONE [facility] May 11, 2024 09:00 [...] 05, 2024 12:00 PM [place]-TOBACCO FORMER USER [facility] Tobacco Use History This section includes a history of the smoking, or tobacco-related health factors, that were collected on or before the date of the Encounter. The data comes from the [place] facility where the Encounter took place. Date/Time Smoking Status/Tobacco Use Comment F acility Jan 05, 2024 12:00 PM [place]-TOBACCO QUIT 5 TO < 15 YRS [facility] Advance Directives: All historical and current [...] 2024 ADVANCE DIRECTIVE DISCUSSION SHAHID HURTADO ARINA E [facility] Encounter Notes: All associated encounter notes This section contains the clinical notes associated to the Encounter. Date/Time Encounter Note(s) Provider Source Feb 07, 2024 12:00 PM RECREATIONAL THERA PY NOTE: LOCAL TITLE: RT/CAT MUSIC THERAPY-PROGRESS NOTE STANDARD TITLE: RECREATIONAL THERAPY NOTE DATE OF NOTE: FEB 07, 2024@12:00 ENTRY DATE: FEB 09, 2024@17:04:29 AUTHOR: CONCEPCIÓN MEZA COSIGNER: URGENCY: STATUS: COMPLETED Date: Wednesday, February 07, 2024 Time: 12:00pm-1:00pm Duration: 60 minutes Location: [facility] Facilitators: Concepción Meza; [facility],BC-DMT,MT-DANGELO Diagnoses: Z51.89 S: was previously in contact with this Music Therapist to schedule a time slot to rehearse her vocal music entries for [employer] and to complete required paperwork for entry into the competition. O: The [employer] Competition is a [place] Rehabilitation Special Event focusing on the therapeutic use of the arts to aid in recovery and showcasing Veterans' means of self-expression. Assistance in navigating rules, categories, and submission protocols is provided by Creative Arts Therapists and Recreation Therapists. GOAL: [place] will participate in the [employer] Competition to target physical, cognitive, and emotional needs. A: [place] endorsed an interest in participating in this year's [employer] Competition. submitted three entries in Vocal Music. Time spent included one hour rehearsing vocal music with piano accompaniment provided by [employer]. arrived to scheduled rehearsal session on time. [place] was prepared for this filming session and was well-rehearsed. was provided with bottled water and encouraged to take breaks as needed. [place] was happy with the rehearsal and expressed appreciation for the opportunity and encouragement to participate. No barriers to participation identified. P: [place] has [employer]'s contact information for any additional questions. The next step will be appointment for filming her vocal music entries. /lilia/ RAGHU ODOM,DANGELO-CAROLINAT,MT-BC CREATIVE ARTS THERAPIST Signed: 02/09/2024 17:06 CONCEPCIÓN MEZA [facility]
--- OUTSIDE RECORDS SUMMARY | 2024-05-04 07:55 | XMS_ITS ---
Author Name [facility] [place] Organization [place] Address [address] [place] [address] Care Team Providers Care Property Management Supervisor Name Role Phone BASIL EMIR Primary Care Provider Unavailabl e Selected Encounter This section includes the information on record at [place] for the Encounter. Date/Time Encounter Type Encounter Description Reason Provider Source Mar 24, 2024 11:00 AM CRISIS INTERVEN [facility] - IND ICD-10-CM F43.12 Post-traumatic stress disorder, chronic NIMA LOPEZ Lorie Encounter Template Text not used by [place] Assessments - Encounter Diagnoses This section includes the primary and secondary diagnoses documented for the Encounter. Date/Time Primary/Secondary Diagnosis Diagnosis Name Provider Source Mar 24, 2024 12:04 PM PRIMARY Post-traumatic stress disorder, chronic SCOTT LOPEZ CB Mar 24, 2024 12:04 PM SECONDARY Suicidal ideations SCOTT LOPEZ [facility] Plan of Treatment: Future Appointments (+ 6 [...] 20 appointments. The data comes from all [place] treatment facilities. Appointment Date/Time Appointment Type Appointme nt Facility Name Mar 25, 2024 09:00 AM AMBULATORY - PSYCHIATRY [facility] Apr 05, 2024 08:30 AM AMBULATORY - [place]CHIATRY [place] [facility] Apr 09, 2024 01:00 PM AMBULATORY - PSYCHIATRY TW IN [facility] Apr 09, 2024 02:30 PM AMBULATORY - PSYCHIATRY [facility] Apr 12, 2024 09:30 AM AMBULATORY - [place]IATRY [place] [facility] Apr 19, 2024 09:00 AM AMBULATORY - MEDICINE LEEANN [place]PE[place] [facility] Apr 20, 2024 01:00 PM AMBULATORY - PSYCHIATRY TW IN [facility] Apr 26, 2024 09:30 AM AMBULATORY - [place]IATRY [place] [facility] Apr 27, 2024 01:00 PM AMBULATORY - PSYCHIATRY TW IN [facility] Apr 28, 2024 01:00 PM AMBULATORY - [place]CHIATRY [place] [facility] May 05, 2024 05:00 PM AMBULATORY - NONE [facility] May 11, 2024 09:00 AM AMBULATORY - PS[place]CHIATRY [place] [facility] May 11, 2024 01:00 PM AMBULATORY - PSYCHIATRY TW IN [facility] May 18, 2024 11:00 AM AMBULATORY - PSYCHIATRY TW IN [facility] May 18, 2024 01:00 PM AMBULATORY - MEDICINE [facility] May 24, 2024 08:30 AM AMBULATORY - PSYCHIATRY [facility] Active, Pending, and Scheduled Orders This section includes a listing of several types of active, pending, and scheduled orders, including clinic medications orders, diagnostic test orders, procedure orders and consult orders; where the start date of the order is 45 days before the date of the Encounter or 45 days after the date of theEncounter. The data comes from all [facility]. Test Date/Time Test Type Test Details Facility Name Apr 19, 2024 09:46 AM Consult Order CARDIAC EC HO OUTPT-ALL SITES Cons [employer] [facility] [place] [facility] Apr 19, 2024 10:08 AM Consult Order CARDIAC EC HO-SPECIAL PROCEDURE [facility] [employer] [facility] Apr 19, 2024 10:47 AM Consult Order COMMUNITY CARE-NUCLEAR MEDICINE [facility] [employer] [facility] Lab Results: +/- 30 days of the [...] Range Comment Apr 19, 2024 10:21 AM [facility] HEMOGLOBIN A1C Specimen Type: BLOOD Comment: [...] 2024 09:46 AM Reporting Lab: [facility] [id number] Performing Lab: [facility] [id number] HEMOGLOBIN A1C 4.9 4.0-6.0 Apr 19, 2024 10:21 AM [facility] TSH W/REFLEX TO FREE T4 Specimen Type: PLASMA Comment: Elevated triglyceride result from a non-fasting specimen should be interpreted with caution. A fasting panel is recommended for accurate triglycerides when trigs are >200 from a non-fasting specimen. Ordering Provider: EMIR GRACIA Report Released Date/Time: Apr 19, 2024 09:46 AM Reporting Lab: [facility] [id number] Performing Lab: [facility] [id number] TSH 0.69 u[IU]/mL 0.35-4.94 Apr 19, 2024 10:21 AM [facility] [facility] LIPID PANEL,NON-FASTING Specimen Type: PLASMA Comment: Elevated triglyceride result from a non-fasting specimen should be interpreted with caution. A fasting panel is recommended for accurate triglycerides when trigs are >200 from a non-fasting specimen. Ordering Provider: EMIR GRACIA Report Released Date/Time: Apr 19, 2024 09:46 AM Reporting Lab: [facility] [phone] Performing Lab: [facility] [id number] CHOLESTEROL 263 mg/dL H <199 .HDL 38 mg/dL L >50 LDL CALCULATION 151 mg/dL H <99 VLDL CALCULATION 74 mg/dL H <29 NON HDL CHOLESTEROL 225 mg/dL H <129 TRIG(NON FASTING) 368 mg/dL H <149 Apr 19, 2024 10:21 AM [employer] ANTI-HEP C(EIA) Specimen Type: SERUM No comment entered. Ordering Provider: EMIR GRACIA Report Released Date/Time: Apr 19, 2024 10:00 AM Reporting Lab: [facility] [phone] Performing Lab: [facility] [phone] ANTI-HEP C(EIA) NEGATIVE NEGATIVE Apr 19, 2024 10:21 AM [employer] COMPREHENSIVE METABOLIC PANEL+MG Specimen Type: PLASMA Comment: Elevated triglyceride result from a non-fasting specimen should be interpreted with caution. A fasting panel is recommended for accurate triglycerides when trigs are >200 from a non-fasting specimen. Ordering Provider: EMIR GRACIA Report Released Date/Time: Apr 19, 2024 09:46 AM Reporting Lab: [facility] [phone] Performing Lab: [facility] [phone] CREATININE 1.0 mg/dL 0.5-1.0 UREA NITROGEN 10 [...] 71 >60 Apr 19, 2024 10:21 AM [place] [employer] CBC Specimen Type: BLOOD No comment entered. Ordering Provider: EMIR GRACIA Report Released Date/Time: Apr 19, 2024 09:46 AM Reporting Lab: [facility] [id number] Performing Lab: [facility] [phone] WBC 5.5 4.0-11.0 RBC 4.74 4.00-5.40 HGB [...] and tobacco- related health factors from the [place] facility where the Encounter took place. Current Smoking Status This section includes the most current smoking, or tobacco-related health factor, from the [place] facility where the Encounter took place. Date/Time Current Smoking Status Comment Facil ity Mar 27, 2023 09:00 AM [place]-TOBACCO FORMER USER [facility] Tobacco Use History This section includes a history of the smoking, or tobacco-related health factors, that were collected on or before the date of the Encounter. The data comes from the [place] facility where the Encounter took place. Date/Time Smoking Status/Tobacco Use Comment F acility Mar 27, 2023 09:00 AM [place]-TOBACCO QUIT 5 TO < 15 YRS [place] [facility] Advance Directives: All historical and current Section [...] SHAHID HURTADO [facility] Radiology Reports: +/- 30 days [...] the Encounter. The data comes from all [place] treatment facilities. Date/Time Radiology Report Provider Source Apr 19, 2024 09:48 AM CHEST 2 VIEWS PA A ND LAT: BILLIE ZAVALA [id number] -[id number] F Exm Date: APR 19, 2024@09:48 Req Phys: EMIR GRACIA Loc: [facility] PACT DIAMONDS (Req'g Loc) Img Loc: [facility] RADIOLOGY Service: Unknown Screen: [place] [address] (Case [id number] COMPLETE) CHEST 2 VIEWS PA AND LAT (RAD Detailed) CPT:21977 Reason for Study: chest pain Clinical History: [place] IS NOT under investigation for COVID-19 or is COVID-19 negative chest pain Responsible provider name and phone number to notify for critical findings if other than user placing the order and pager listed below: User placing orders pager: LAST CREATININE 1.0 (12/21/23) Report Status: Verified Date Reported: APR 19, 2024 Date Verified: APR 19, 2024 Provider Relations Specialist E-Sig:/ES/PIA VARGAS MD, FACR, CCD Report: EXAMINATION: CHEST 2 VIEWS PA AND LAT 04/19/2024 9:48 AM INDICATION: chest pain COMPARISON: None. FINDINGS: The cardiac silhouette and pulmonary vasculature are within normal limits. The lungs appear clear of infiltrate. No pleural fluid identified. Impression: No active pulmonary disease visualized. Primary Interpreting Staff: PIA VARGAS MD, FACR, STAFF RADIOLOGIST (Provider Relations Specialist) /PIA LOGUIN [facility] Encounter Notes: All associated encounter notes This section contains the clinical notes associated to the Encounter. Date/Time Encounter Note(s) Provider Source Mar 24, 2024 01:02 PM ADDENDUM: LOCAL TITLE: Addendum STANDARD TITLE: ADDENDUM DATE OF NOTE: MAR 24, 2024@13:02:22 ENTRY DATE: MAR 24, 2024@13:02:23 AUTHOR: MILI LOPEZ COSIGNER: URGENCY: STATUS: COMPLETED Compact Act extension requested due to increased suicidal ideation as well as intense nightmares, poor sleep, intrusive thoughts about the traumatic events, and mood dysregulation which were precipitating factors for the initial crisis. /lilia/ TROY Grace Corrosion Control Specialist Signed: 03/24/2024 13:04 Receipt Acknowledged By: 03/24/2024 14:10 /lilia/ FRANCESCA Wells COMPACT ACT PROCESS CONTROL OPERATOR --- Original Document --- 03/24/24 PROGRESS NOTE: OUTPATIENT MENTAL HEALTH PROGRESS NOTE Clinic: [facility] Date: 03/24/2024 Length of Session: 45 minutes Method of Interface: In-person Session #32 Author: MERNA Trevino LISW Subjective: Met with Quintin Zavala for individual therapy session. She reported that she slept poorly last night and was visibly tired today. She noted that she has had increased suicidal ideation but denied any intent at this time. We discussed the high risk flag review and she expressed that she would like it to stay active at this time as she is still not feeling stable enough to feel completely safe. She still struggles with sleep, nightmares, intrusive thoughts, and SI. Curb Builder agreed with her assessment and we discussed strategies for managing intrusive and cyclical thoughts to include physical stimulation like sucking on a lemon or using ice water, as well as then thinking about emotional anchors like her aunt as a child or her kids now. Objective: Appearance: Well-groomed, appropriate eye contact Speech: Regular rate/rhythm/volume Motor: Normal Spontaneous movement Mood: Euthymic, tired Affect: Appropriate, full range, congruent with mood Thought Content: No Suicidal Ideation/No Homicidal Ideation No Delusions No Hallucinations Thought Process: Linear/Logical/Goal Oriented Judgement: Good Insight: Good Impulse Control: Good Oriented to Person/Place/Time/Reason for Appointment Assessment: [place] was engaged and receptive throughout. She was well regulated today and was future-focused. She was very tired today but able to attend and participate appropriately. Risk factors include history of SI/suicide attempt, insomnia, relationship issues, race. Protective factors include responsibility to others, children in the home, hope for the future, desire to live, help seeking behaviors, positive therapeutic alliance. Current risk assessment: Low acute, Intermediate chronic Diagnostic Evaluation: PTSD, chronic Plan: RTC on 04/05/24 Care provided: 30 Day Extension of Care The needs a continuation of: Mental Health Care Supporting clinical documentation: see above for more information /es/ TROY Grace Corrosion Control Specialist Signed: 03/24/2024 12:11 MILI LOPEZ [facility] Mar 24, 2024 11:51 AM MENTAL HEALTH NOTE : LOCAL TITLE: PROGRESS NOTE STANDARD TITLE: MENTAL HEALTH NOTE DATE OF NOTE: MAR 24, 2024@11:51 ENTRY DATE: MAR 24, 2024@11:51:24 AUTHOR: MILI LOPEZ EXP COSIGNER: URGENCY: STATUS: COMPLETED PROGRESS NOTE Has ADDENDA OUTPATIENT MENTAL HEALTH PROGRESS NOTE Clinic: [facility] Date: 03/24/2024 Length of Session: 45 minutes Method of Interface: In-person Session #32 Author: MERNA Trevino LISW Subjective: Met with Quintin Zavala for individual therapy session. She reported that she slept poorly last night and was visibly tired today. She noted that she has had increased suicidal ideation but denied any intent at this time. We discussed the high risk flag review and she expressed that she would like it to stay active at this time as she is still not feeling stable enough to feel completely safe. She still struggles with sleep, nightmares, intrusive thoughts, and SI. Curb Builder agreed with her assessment and we discussed strategies for managing intrusive and cyclical thoughts to include physical stimulation like sucking on a lemon or using ice water, as well as then thinking about emotional anchors like her aunt as a child or her kids now. Objective: Appearance: Well-groomed, appropriate eye contact Speech: Regular rate/rhythm/volume Motor: Normal Spontaneous movement Mood: Euthymic, tired Affect: Appropriate, full range, congruent with mood Thought Content: No Suicidal Ideation/No Homicidal Ideation No Delusions No Hallucinations Thought Process: Linear/Logical/Goal Oriented Judgement: Good Insight: Good Impulse Control: Good Oriented to Person/Place/Time/Reason for Appointment Assessment: [place] was engaged and receptive throughout. She was well regulated today and was future-focused. She was very tired today but able to attend and participate appropriately. Risk factors include history of SI/suicide attempt, insomnia, relationship issues, race. Protective factors include responsibility to others, children in the home, hope for the future, desire to live, help seeking behaviors, positive therapeutic alliance. Current risk assessment: Low acute, Intermediate chronic Diagnostic Evaluation: PTSD, chronic Plan: RTC on 04/05/24 Care provided: 30 Day Extension of Care The needs a continuation of: Mental Health Care Supporting clinical documentation: see above for more information /lilia/ TROY Grace Corrosion Control Specialist Signed: 03/24/2024 12:11 03/24/2024 ADDENDUM STATUS: COMPLETED Compact Act extension requested due to increased suicidal ideation as well as intense nightmares, poor sleep, intrusive thoughts about the traumatic events, and mood dysregulation which were precipitating factors for the initial crisis. /lilia/ TROY Grace Corrosion Control Specialist Signed: 03/24/2024 13:04 Receipt Acknowledged By: * AWAITING SIGNATURE * HUGO CUETO JESSICA M [place] [facility]
--- OUTSIDE RECORDS SUMMARY | 2024-05-04 07:55 | XMS_ITS | Encounter Summary ---
Author Name [facility] [place] Organization [place] Address [address] [place] [id number] Care Team Providers Care Adult High School Instructor Name Role Phone EMIR GRACIA Primary Care Provider Unavailabl e Selected Encounter This section includes the information on record at [place] for the Encounter. Date/Time Encounter Type Encounter Description Reason Pro vider Source IHE Encounter Template Text not used by [place] Advance Directives: All historical and current Section Date Range: From patient's date of to the date document was created. This section includes ALL of a patient's completed or amended [place] Advance and Rescinded Directives. The entries below indicate that a directive exists for the patient, but an actual copy is not included with this document. The data comes from all [place] facilities. Date Advance Directives Provider Source Jan 05, 2024 ADVANCE DIRECTIVE DISCUSSION SHAHID HURTADO [facility]
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
--- OUTSIDE RECORDS SUMMARY | 2024-05-04 07:55 | XMS_ITS | Encounter Summary ---
Author Name [facility] [place] Organization [facility] [place] Address [address] [place] [address] Care Team Providers Care Photographer Portrait Name Role Phone EMIR GRACIA Primary Care Provider Unavailabl e Selected Encounter This section includes the information on record at [place] for the Encounter. Date/Time Encounter Type Encounter Description Reason Provider Source Feb 19, 2024 03:00 PM MTMS BY PHARM EST 15 MIN PCMHI INDIV ICD-10-CM F33.2 Major depressv disorder, 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 psych features DOROTHY,GURPREET TTE D [facility] Encounter Template Text not used by [place] Assessments - Encounter Diagnoses This section includes the primary and secondary diagnoses documented for the Encounter. Date/Time Primary/Secondary Diagnosis Diagnosis Name Provider Source Feb 19, 2024 03:23 PM PRIMARY Major depressv disorder, 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 psych features DOROTHY,GURPREET TTE D [facility] Feb 19, 2024 03:23 PM SECONDARY Generalized anxiety disorder DOROTHY,GURPREET TTE D [facility] Feb 19, 2024 03:23 PM SECONDARY Post-traumatic stress disorder, chronic DOROTHY,GURPREET TTE D [facility] Feb 19, 2024 03:23 PM SECONDARY Suicide attempt, subsequent encounter DOROTHY,GURPREET TTE D [facility] Plan of Treatment: Future Appointments (+ 6 months) and Future Tests (+/- 45 days) The Plan of Treatment section includes [facility] care [facility] for the [facility] [place] [facility] This section includes future appointments and future orders which are active, pending or scheduled. Future Appointments This section includes appointments that were scheduled to occur 6 months from the date of the Encounter, up to a maximum of 20 appointments. The data comes from all [place] treatment facilities. Appointment Date/Time Appointment Type Appointme nt Facility Name Feb 25, 2024 11:00 AM AMBULATORY - [facility]RY [facility] Mar 02, 2024 11:00 AM [facility]BULATORY - [facility] Mar 03, 2024 10:30 AM [facility]BULATORY - [facility] Mar 10, 2024 11:00 AM [facility]ULATORY - [facility] Mar 24, 2024 11:00 AM AM[facility]ULAT[facility] - [facility] [place] [facility] Mar 25, 2024 09:00 AM AMBULATORY - PSYCHIATRY [facility] Apr 05, 2024 08:30 AM AMBULATORY - [facility]IATRY [place] [facility] Apr 09, 2024 01:00 PM AMBULATORY - PSYCHIATRY TW IN [facility] Apr 09, 2024 02:30 PM AMBULATORY - PSYCHIATRY [facility] Apr 12, 2024 09:30 AM AMBULATORY - [facility]IATRY [place] [facility] Apr 19, 2024 09:00 AM AMBULATORY - MEDICINE LEEANN RAWLS [facility] Apr 20, 2024 01:00 PM AMBULATORY - PSYCHIATRY TW IN [facility] Apr 26, 2024 09:30 AM AMBULATORY - [facility]IATRY [place] [facility] Apr 27, 2024 01:00 PM AMBULATORY - PSYCHIATRY TW IN [facility] Apr 28, 2024 01:00 PM AMBULATORY - [facility]IATRY [place] [facility] May 05, 2024 05:00 PM AMBULATORY - NONE [facility] May 11, 2024 09:00 AM AMBULATORY - [facility]IATRY [place] [facility] May 11, 2024 01:00 PM AMBULATORY - PSYCHIATRY TW IN [facility] May 18, 2024 11:00 AM AMBULATORY - PSYCHIATRY TW IN [facility] May 18, 2024 01:00 PM AMBULATORY - MEDICINE [facility] Social History: Smoking Status (Most current) and Tobacco Use (All prior to encounter date) This section includes the most current, and the historical, smoking and tobacco- related health factors from the [place] facility where the Encounter took place. Current Smoking Status This section includes the most current smoking, or tobacco-related health factor, from the [place] facility where the Encounter took place. Date/Time Current Smoking Status Comment Latasha ity Jan 05, 2024 12:00 PM VA-TOBACCO FORMER USER [facility] Tobacco Use History This section includes a history of the smoking, or tobacco-related health factors, that were collected on or before the date of the Encounter. The data comes from the [place] facility where the Encounter took place. Date/Time Smoking Status/Tobacco Use Comment F acility Jan 05, 2024 12:00 PM VA-TOBACCO QUIT 5 TO < 15 YRS [facility] [...] this document. The data comes from all [facility]. Date Advance Directives Provider Source Jan 05, 2024 ADVANCE DIRECTIVE DISCUSSION SHAHID HURTADO [facility] Encounter Notes: All associated encounter notes This section contains the clinical notes associated to the Encounter. Date/Time Encounter Note(s) Provider Source Feb 19, 2024 03:00 PM PSYCHIATRY E & M NOTE: LOCAL TITLE: PSYCHIATRIC EVALUATION & MANAGEMENT STANDARD TITLE: PSYCHIATRY E & M NOTE DATE OF NOTE: FEB 19, 2024@15:00 ENTRY DATE: FEB 19, 2024@09:13:44 AUTHOR: SCARLETT DE LA CRUZ EXP COSIGNER: URGENCY: STATUS: COMPLETED MENTAL HEALTH PHARMACY SERVICE TYPE: -Visit conducted by synchronous telehealth. [place] verbal consent obtained. Location/emergency number confirmed. Environment surveyed and participants identified. Virtual conference room locked. SPOKE WITH: [X] /PATIENT [] OTHER: [place]'s identity verified by full name and social security number. S: LUCASQUINTIN is a 43 y/o FEMALE seen for medication management. Medication changes made at last visit 02/11/24: o Continue duloxetine 60mg PO daily for [...] PO QHS prn sleep o Taking about 3x weekly Other Pertinent Medications: - nonVA lorazepam [...] when tapering hydromorphone Side effects: quetiapine - vivid dreams Past medication trials: - citalopram [...] for sleep (12/29/2023-CURRENT) SUBJECTIVE & BACKGROUND CC: I'm feeling better Nita's mood has improved since increasing quetiapine back to former dosing. She does not feel she is back to her baseline, but she is feeling less depressed. She notes that she is no longer experiences oversedation from quetiapine. Nita is dealing with increased stressors due to her workers comp claim being denied. She is using PRN quetiapine a couple times weekly to manage anxiety. She feels this is helpful. Although she is feeling better than she has in a long time, Nita feels there is still more room for improvement. Mechanical Adjuster discussed medication options including further titration of duloxetine. Nita declines medication adjustments today as she prefers to wait until she has restabilized on quetiapine. [place] will consider adjusting medications once she is established with psychiatry. 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 OBJECTIVE Mental status exam: Orientation: Alert; oriented to person, place, and time; cooperative, pleasant General Motor: Ambulating without assistance, no abnormal movements, sitting comfortably Appearance: Appropriately groomed/dressed, no apparent distress Speech: clear; normal rate, rhythm, tone - not pressured Mood: better Affect: congruent with topics discussed, full-range Thought process: coherent, relevant, logical, and goal-oriented Suicidal ideations: Passive SI Homicidal ideations: Denied Hallucinations: None reported Delusions: [...] 0 (01/19/24) EKG: none on file ASSESSMENT: [place] is a 43 y/o FEMALE with depression, anxiety, and PTSD who is prescribed duloxetine, quetiapine, and trazodone. Mood has improved since increasing quetiapine, but symptoms are not yet back to baseline. Since quetiapine was only increased last week, reasonable to allow more time for this medication to take effect. Therefore, will continue scheduled quetiapine as prescribed per [place] preference. Antipsychotic monitoring labs are up to date. Duloxetine remains beneficial for mood. While may benefit from further titration of this medication, dose increases are declined. Therefore, will continue duloxetine as prescribed. PRN quetiapine is effective for anxiety elevations, so will continue today. Trazodone remains beneficial for sleep, so will continue at this time. [place] is scheduled with psychiatry in two weeks, therefore, no follow-up is needed with this provider. No acute safety concerns. SUICIDE RISK ASSESSMENT [...] duloxetine 60mg PO daily for mood o Continue quetiapine 200mg PO QAM and 300mg PO QHS for depression o Continue quetiapine 25mg PO TID prn anxiety o Continue trazodone 50mg PO QHS prn sleep #FOLLOW UP: o None with pharmacist. Psychiatry intake scheduled FUTURE APPOINTMENTS: 02/25/2024 11:00 [facility] 03/02/2024 11:00 [facility] 03/03/2024 10:[address] [facility] 03/10/2024 11:00 [facility] 03/17/2024 11:00 [facility] Time Spent: 15 min acknowledges understanding of their medication regimen including common side effects and what to expect from pharmacotherapy. agrees to contact this clinic with any concerns prior to next appointment. agrees with plan detailed below and will access crisis services as needed. - was educated on ability to walk in to clinic for non-urgent mental health and/or medical assistance. -[place] directed to report to the nearest emergency room for urgent mental health or medical issues. - educated on the [facility] Crisis Line for assistance with triaging mental health concerns and educated on safety and risk and use of [facility] for crisis situations. -[place] provided with Veterans Crisis Line number at 988. Press 1 to talk with someone right away. Care provided: Follow up care covered under the COMPACT Act of 2020 Section 201. Supporting clinical documentation: See above /lilia/ SCARLETT DE LA CRUZ Mental Health Clinical Pharmacist Practitioner Signed: 02/19/2024 15:23 Receipt Acknowledged By: 02/24/2024 13:42 /lilia/ Triny Bee MD Psychiatrist SCARLETT DE LA CRUZ [facility]
--- OUTSIDE RECORDS SUMMARY | 2024-05-04 07:55 | XMS_ITS | Encounter Summary ---
Author Name [facility] [place] [facility] ([place] Organization [facility] [place] Address [address] [place] [address] Care Team Providers Care Air Quality Instrument Specialist Name Role Phone EMIR GRACIA Primary Care Provider Unavailabl e Selected Encounter This section includes the information on record at [place] for the Encounter. Date/Time Encounter Type Encounter Description Reason Provider Source Feb 25, 2024 11:00 AM PSYTX W PT 45 MINUTES MENTAL HEALTH CLINIC - IND ICD-10-CM F43.12 Post-traumatic stress disorder, chronic NIMA LOPEZ Lorie Encounter Template Text not used by [place] Assessments - Encounter Diagnoses This section includes the primary and secondary diagnoses documented for the Encounter. Date/Time Primary/Secondary Diagnosis Diagnosis Name Provider Source Feb 25, 2024 12:03 PM PRIMARY Post-traumatic stress disorder, chronic [facility]OTT [facility]OPE[facility] Feb 25, 2024 12:03 PM SECONDARY Suicidal ideations SCOTT LOPEZ [facility] Plan of Treatment: Future Appointments (+ [...] Appointment Type Appointme nt Facility Name Mar 02, 2024 11:00 AM AMBULATORY - [facility]IATRY [facility] Mar 03, 2024 10:30 AM AMBULATORY - [facility]IATRY [facility] Mar 10, 2024 11:00 AM AMBULATORY - [facility]IATRY [facility] [place] [facility] Mar 24, 2024 11:00 AM AMBULATORY - [facility]IATRY [place] [facility] Mar 25, 2024 09:00 AM AMBULATORY [place]CHIATRY [place] [facility] Apr 05, 2024 08:30 AM AMBULATORY - [place]IATRY [place] [facility] Apr 09, 2024 01:00 PM AMBULATORY - PSYCHIATRY TW IN [facility] Apr 09, 2024 02:30 PM AMBULATORY [place] PS[place]CHIATRY [place] [facility] Apr 12, 2024 09:30 AM AMBULATORY - PS[place]CHIATRY [place] [facility] Apr 19, 2024 09:00 AM AMBULATORY - MEDICINE LEEANN RAWLS [facility] Apr 20, 2024 01:00 PM AMBULATORY - PSYCHIATRY TW IN [facility] Apr 26, 2024 09:30 AM AMBULATORY - PS[place]CHIATRY [place] [facility] Apr 27, 2024 01:00 PM AMBULATORY - PSYCHIATRY TW IN [facility] Apr 28, 2024 01:00 PM AMBULATORY - PS[place]CHIATRY [place] [facility] May 05, 2024 05:00 PM AMBULATORY - NONE [facility] May 11, 2024 09:00 AM AMBULATORY - PS[place]CHIATRY [place] [facility] May 11, 2024 01:00 PM AMBULATORY - PSYCHIATRY TW IN [facility] May 18, 2024 11:00 AM AMBULATORY - PSYCHIATRY TW IN [facility] May 18, 2024 01:00 [facility] May 24, 2024 08:30 AM AMBUL[facility]ORY [place] PS[place]CHIATRY [place] [facility] Social History: Smoking Status (Most current) and Tobacco Use (All prior to encounter date) This section includes the most current, and the historical, smoking and tobacco- related health factors from the [place] facility where the Encounter took place. Current Smoking Status This section includes the most current smoking, or tobacco-related health factor, from the [place] facility where the Encounter took place. Date/Time Current Smoking Status Loretta pitts Mar 27, 2023 09:00 AM VA-TOBACCO FORMER USER [facility] Tobacco Use History This section includes a history of the smoking, or tobacco-related health factors, that were collected on or before the date of the Encounter. The data comes from the [place] facility where the Encounter took place. Date/Time Smoking Status/Tobacco Use Comment F acility Mar 27, 2023 09:00 AM VA-TOBACCO QUIT 5 TO < 15 YRS [facility] Advance Directives: All historical and [...] Encounter. Date/Time Encounter Note(s) Provider Source Feb 25, 2024 12:02 PM MENTAL HEALTH NOTE : LOCAL TITLE: MH PROGRESS NOTE STANDARD TITLE: MENTAL HEALTH NOTE DATE OF NOTE: FEB 25, 2024@12:02 ENTRY DATE: FEB 25, 2024@12:02:57 AUTHOR: MILI LOPEZ EXP COSIGNER: URGENCY: STATUS: COMPLETED OUTPATIENT MENTAL HEALTH PROGRESS NOTE Clinic: [facility] Date: 02/25/2024 Length of Session: 50 minutes Method of Interface: In-person Session #29 Author: MERNA Trevino, TROY Subjective: Met with Quintin Zavala for individual therapy session. She reported that she received a substantial bill from her school for the semester she was unable to finish and notice of disenrollment from the fall term until paid. She acknowledged that it has all been a lot but has been able to tolerate the stress better than previously. She noted that she still struggles with rumination about work and difficult calls but that it has been easier to pull herself out of the negative reveries. We talked about thinking of positive future events instead of meaningful work events as they would cycle back to negative. We explored the deeper meanings of her beliefs around work that fit themes of powerlessness and over-responsibility. She stated that it was helpful to recognize the roots of her current emotional beliefs. Objective: Appearance: Well-groomed, appropriate eye contact Speech: Regular rate/rhythm/volume Motor: Normal Spontaneous movement Mood: Euthymic, improved Affect: Appropriate, full range Thought Content: Some Suicidal Ideation/No Homicidal Ideation No Delusions No Hallucinations Thought Process: Linear/Logical/Goal Oriented Judgement: Good Insight: Good Impulse Control: Good Oriented to Person/Place/Time/Reason for Appointment Assessment: was engaged and receptive throughout. She was well regulated today and had a more positive outlook. Risk factors include history of SI/suicide attempt, [...] 2019 Section 201. Supporting clinical documentation: See information above /lilia/ TROY Grace Educational Coordinator Signed: 02/25/2024 12:03 MILI LOPEZ [facility]
--- OUTSIDE RECORDS SUMMARY | 2024-05-04 07:55 | XMS_ITS | Encounter Summary ---
Author Name [facility] [place] Organization [place] Address [address] [place] [address] Care Team Providers Care Electrical Technician Instructor Name Role Phone EMIR GRACIA Primary Care Provider Unavailabl e Selected Encounter This section includes the information on record at [place] for the Encounter. Date/Time Encounter Type Encounter Description Reason Provider Source Mar 11, 2024 12:05 PM HC PRO PHONE CALL 5-10 MIN TELEPHONE ICD-10-CM F43.10 Post-traumatic stress disorder, unspecified DARELL CARDOZA Lorie Encounter Template Text not used by [place] Assessments - Encounter Diagnoses This section includes the primary and secondary diagnoses documented for the Encounter. Date/Time Primary/Secondary Diagnosis Diagnosis Name Provider Source Mar 11, 2024 12:05 PM PRIMARY Post-traumatic stress disorder, unspecified DARELL CARDOZA [email or web address] [facility] Plan of Treatment: Future Appointments (+ 6 [...] 11:00 AM AMBULATORY - PS[facility]CHIATRY [facility] [place] [facility] Mar 25, 2024 09:00 AM AMBULATORY [place]CHIATRY [place] [facility] Apr 05, 2024 08:30 AM AMBULATORY - [place]IATRY [place] [facility] Apr 09, 2024 01:00 PM AMBULATORY - PSYCHIATRY TW IN [facility] Apr 09, 2024 02:30 PM AMBULAT[place]IATRY [place] [facility] Apr 12, 2024 09:30 AM AMBULATORY - PS[place]CHIATRY [place] [facility] Apr 19, 2024 09:00 AM AMBULATORY - MEDICINE LEEANN OPEE [facility] Apr 20, 2024 01:00 PM AMBULATORY - PSYCHIATRY TW IN [facility] Apr 26, 2024 09:30 AM AMBULATORY - PS[place]CHIATRY [place] [facility] Apr 27, 2024 01:00 PM AMBULATORY - PSYCHIATRY TW IN [facility] Apr 28, 2024 01:00 PM AMBULATORY - PS[place]CHIATRY [place] [facility] May 05, 2024 05:00 PM AMBULATORY - NONE [place] [facility] May 11, 2024 09:00 AM AMBULATORY - PS[place]CHIATRY [place] [facility] May 11, 2024 01:00 PM AMBULATORY - PSYCHIATRY TW IN [facility] May 18, 2024 11:00 AM AMBULATORY - PSYCHIATRY TW IN [facility] May 18, 2024 01:00 PM AMBULATORY - MEDICINE [facility] May 24, 2024 08:30 AM AMBULATORY - PSYCHIATRY [place] [facility] Active, Pending, and Scheduled Orders This section includes a listing of several types of active, pending, and scheduled orders, including clinic medications orders, diagnostic test orders, procedure orders and consult orders; where the start date of the order is 45 days before the date of the Encounter or 45 days after the date of theEncounter. The data comes from all [place] treatment facilities. Test Date/Time Test Type Test Details Facility Name Apr 19, 2024 09:46 AM Consult Order CARDIAC EC HO OUTPT-ALL SITES Cons Tool Lapper Hand's Choice [facility] Apr 19, 2024 10:08 AM Consult Order CARDIAC EC HO-SPECIAL PROCEDURE Cons Tool L[facility] Hand[facility] Choice [facility] Apr 19, 2024 10:47 AM Consult Order COMMUNITY CARE-NUCLEAR MEDICINE Cons Tool Lapper Hand's Choice [facility] Advance Directives: All historical and current Section [...] 2024 ADVANCE DIRECTIVE DISCUSSION BOBBY HURTADOInder ARINA E [facility] Encounter Notes: All associated encounter notes This section contains the clinical notes associated to the Encounter. Date/Time Encounter Note(s) Provider Source Mar 11, 2024 12:26 PM REPORT OF CONTACT: LOCAL TITLE: PATIENT CONTACT NOTE STANDARD TITLE: REPORT OF CONTACT DATE OF NOTE: MAR 11, 2024@12:26 ENTRY DATE: MAR 11, 2024@12:26:24 AUTHOR: DARELL CARDOZA COSIGNER: URGENCY: STATUS: COMPLETED PATIENT CONTACT NOTE Has ADDENDA Patient contact Name of : ALLYSSAQUINTIN DANIELS Date & Time of Contact: Feb@12:05 Type of Contact: Telephone (10 min) Reason for Contact: Construction Director called and discussed referral for IRT for nightmares. Nita said her nightmares vary in content, but have the same theme. She expressed interest in trying IRT and is agreeable to [facility]. She requested that the workbook be sent to her via regular mail. Disposition/Plan: Order was placed for Nita to be scheduled for an initial therapy session with press writer on 04/01/24 at 3pm via [facility]. /sandra CARDOZA PsyD, GERALD STAFF PSYCHOLOGIST Signed: 03/11/2024 12:26 03/25/2024 ADDENDUM STATUS: COMPLETED Construction Director called to inform her she did not get scheduled with press writer on 04/01/24 as discussed (press writer not sure why), so is scheduled to start IRT on 04/07/24. [place] said she learned that she will be doing clinicals on Wednesdays and so will need to reschedule IRT sessions. She requested to be called later as she was driving to an appointment at the [place]; orders placed. /sandra CARDOZA PsyD, GERALD STAFF PSYCHOLOGIST Signed: 03/25/2024 08:45 DARELL CARDOZA [facility]
--- OUTSIDE RECORDS SUMMARY | 2024-05-04 07:55 | XMS_ITS | Encounter Summary ---
Author Name [facility] [place] Organization [facility] [place] Address [address] [place] [address] Care Team Providers Care Dye Tub Operator Name Role Phone EMIR GRACIA Primary Care Provider Unavailabl e Selected Encounter This section includes the information on record at [place] for the Encounter. Date/Time Encounter Type Encounter Description Reason Provider Source Mar 02, 2024 11:00 AM PSYTX W PT 45 MINUTES [facility] ICD-10-CM F43.12 Post-traumatic stress disorder, chronic NIMA LOPEZ Lorie Encounter Template Text not used by CT Assessments - Encounter Diagnoses This section includes the primary and secondary diagnoses documented for the Encounter. Date/Time Primary/Secondary Diagnosis Diagnosis Name Provider Source Mar 02, 2024 12:13 PM PRIMARY Post-traumatic stress disorder, chronic [facility] Mar 02, 2024 12:13 PM SECONDARY Suicidal ideations SCOTT LOPEZ [facility] Plan of Treatment: Future Appointments (+ [...] Appointment Type Appointme nt Facility Name Mar 03, 2024 10:30 AM AMBULATORY - PS[facility]CHIATRY [facility] Mar 10, 2024 11:00 AM AMBULATORY - [facility]IATRY [facility] Mar 24, 2024 11:00 AM AMBULATORY - PS[facility]CHIATRY [facility] [place] [facility] Mar 25, 2024 09:00 AM AMBULATORY [place]ATRY [place] [facility] Apr 05, 2024 08:30 AM AMBULATORY - PSYCHIATRY [facility] [place] [facility] Apr 09, 2024 01:00 PM AMBULATORY - PSYCHIATRY TW IN [facility] Apr 09, 2024 02:30 PM AMBULATORY [place] [facility] Apr 12, 2024 09:30 AM AMBULATORY - PS[facility]CHIATRY [place] [facility] Apr 19, 2024 09:00 AM AMBULATORY - MEDICINE LEEANN RAW[facility] Apr 20, 2024 01:00 PM AMBULATORY - PSYCHIATRY TW IN [facility] Apr 26, 2024 09:30 AM AMBULATORY - PS[place]CHIATRY [place] [facility] Apr 27, 2024 01:00 PM AMBULATORY - PSYCHIATRY TW [facility] Apr 28, 2024 01:00 PM AMBULATORY - PSYCHIATRY [facility] [place] [facility] May 05, 2024 05:00 PM AMBULATORY - NONE [facility] May 11, 2024 09:00 AM AMBULATORY - PSYCHIATRY [facility] [place] [facility] May 11, 2024 01:00 PM AMBULATORY - PSYCHIATRY TW IN [facility] May 18, 2024 11:00 AM AMBULATORY - PSYCHIATRY TW IN [facility] May 18, 2024 01:00 PM AMBULATORY - MEDICINE [facility] May 24, 2024 08:30 AM AM[place]ORY [place] [facility] Social History: Smoking Status (Most current) [...] 27, 2023 09:00 AM VA-TOBACCO FORMER USER [facility] Tobacco Use History This section includes a history of the smoking, or tobacco-related health factors, that were collected on or before the date of the Encounter. The data comes from the [place] facility where the Encounter took place. Date/Time Smoking Status/Tobacco Use Comment F acility Mar 27, 2023 09:00 AM VA-TOBACCO QUIT 5 TO < 15 YRS [facility] Advance Directives: All historical and current [...] 05, 2024 ADVANCE DIRECTIVE DISCUSSION SHAHID HURTADO [facility] Encounter Notes: All associated encounter notes This section contains the clinical notes associated to the Encounter. Date/Time Encounter Note(s) Provider Source Mar 02, 2024 12:12 PM MENTAL HEALTH NOTE : LOCAL TITLE: MH PROGRESS NOTE STANDARD TITLE: MENTAL HEALTH NOTE DATE OF NOTE: MAR 02, 2024@12:12 ENTRY DATE: MAR 02, 2024@12:12:16 AUTHOR: MILI LOPEZ EXP COSIGNER: URGENCY: STATUS: COMPLETED OUTPATIENT MENTAL HEALTH PROGRESS NOTE Clinic: [facility] Date: 03/02/2024 Length of Session: 50 minutes Method of Interface: In-person Session #30 Author: MERNA Trevino, TROY Subjective: Met with Quintin Zavala for individual therapy session. She shared updates, noting positive improvement in mood and motivation. 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 Dice Table Person asked what she needed to do with those feelings and she said that she was unsure, so Dice Table Person proposed advocacy when she feels ready. We discussed how that could be meaningful for her as a path to justice. We also discussed boundaries for her relationships and she recognized that she has consistently reached out for support to those who hurt her the most, whether personally or professionally. Encouraged her to continue to take care of herself, be mindful of the positive experiences, and give herself jah. Objective: Appearance: Well-groomed, appropriate eye contact Speech: Regular rate/rhythm/volume Motor: Normal Spontaneous movement Mood: Euthymic, improved Affect: Appropriate, full range, congruent with mood Thought Content: Some Suicidal Ideation/No Homicidal Ideation No Delusions No Hallucinations Thought Process: Linear/Logical/Goal Oriented Judgement: Good Insight: Good Impulse Control: Good Oriented to Person/Place/Time/Reason for Appointment Assessment: [place] was engaged and receptive throughout. She was well regulated today and was future-focused. She expressed gratitude for the therapeutic support. Risk factors include history of SI/suicide attempt, [...] 2019 Section 201. Supporting clinical documentation: See narrative above. /es/ TROY Grace Tax Record Clerk Signed: 03/02/2024 12:13 MILI LOPEZ [facility]
--- OUTSIDE RECORDS SUMMARY | 2024-05-04 07:55 | XMS_ITS ---
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 Date/Time Encounter Type Encounter Description Reason Provider Source Mar 03, 2024 10:30 AM OFFICE O/P [facility] 60 MIN [facility] - IND ICD-10-CM F32.9 Major depressive disorder, single episode, unspecified TRINY BEE Encounter Template Text not used by [place] Assessments - Encounter Diagnoses This section includes the primary and secondary diagnoses documented for the Encounter. Date/Time Primary/Secondary Diagnosis Diagnosis Name Provider Source Mar 03, 2024 12:10 PM PRIMARY Major depressive disorder, single episode, unspecified TRINY BEE [facility] Mar 03, 2024 12:10 PM SECONDARY Post-traumatic stress disorder, chronic TRINY BEE [facility] Mar 03, 2024 12:10 PM SECONDARY Suicidal ideations TRINY BEE Plan of Treatment: Future Appointments (+ [...] Appointment Type Appointme nt Facility Name Mar 10, 2024 11:00 AM AMBULATORY - PSYCHIATRY [place] [facility] Mar 24, 2024 11:00 AM AMBULATORY - PSYCHIATRY [place] [facility] Mar 25, 2024 09:00 AM AMBULATORY - PSYCHIATRY [facility] Apr 05, 2024 08:30 AM AMBULATORY - PSYCHIATRY [place] [facility] Apr 09, 2024 01:00 PM AMBULATORY - PSYCHIATRY TW IN [facility] Apr 09, 2024 02:30 PM AMBULATORY - PSYCHIATRY [facility] Apr 12, 2024 09:30 AM AMBULATORY - PSYCHIATRY [place] [facility] Apr 19, 2024 09:00 AM AMBULATORY - MEDICINE LEEANN RAWLS [facility] Apr 20, 2024 01:00 PM AMBULATORY - PSYCHIATRY TW IN [facility] Apr 26, 2024 09:30 AM AMBULATORY - PSYCHIATRY [place] [facility] Apr 27, 2024 01:00 PM AMBULATORY - PSYCHIATRY TW IN [facility] Apr 28, 2024 01:00 PM AMBULATORY - PSYCHIATRY [place] [facility] May 05, 2024 05:00 PM AM[facility]ULATORY - NONE [place] [facility] May 11, 2024 09:00 AM AMBULATORY - PSYCHIATRY [place] [facility] May 11, 2024 01:00 PM AMBULATORY - PSYCHIATRY TW IN [facility] May 18, 2024 11:00 AM AMBULATORY - PSYCHIATRY TW IN [facility] May 18, 2024 01:00 PM AMBULATORY - MED[facility]INE [facility] May 24, 2024 08:30 AM AM[facility]ORY [place] [facility] Social History: Smoking Status (Most current) and Tobacco Use (All prior to encounter date) This section includes the most current, and the historical, smoking and tobacco- related health factors from the [place] facility where the Encounter took place. Current Smoking Status This section includes the most current smoking, or tobacco-related health factor, from the [place] facility where the Encounter took place. Date/Time Current Smoking Status Loretta pitts Mar 27, 2023 09:00 AM VA-TOBACCO QUIT 5 TO < 15 YRS [facility] Tobacco Use History This section includes a history of the smoking, or tobacco-related health factors, that were collected on or before the date of the Encounter. The data comes from the [place] facility where the Encounter took place. Date/Time Smoking Status/Tobacco Use Comment Anival acrudy Mar 27, 2023 09:00 AM VA-TOBACCO QUIT 5 TO < 15 YRS [facility] Advance Directives: All historical and current [...] Encounter. Date/Time Encounter Note(s) Provider Source Mar 04, 2024 02:54 PM ADDENDUM: LOCAL TITLE: Addendum STANDARD TITLE: ADDENDUM DATE OF NOTE: MAR 04, 2024@14:54:02 ENTRY DATE: MAR 04, 2024@14:54:03 AUTHOR: TRINY BEE EXP COSIGNER: URGENCY: STATUS: COMPLETED Co-signing ketamine-PTSD social services coordinator due to 's interest in the study. /lilia/ Triny Bee MD Psychiatrist Signed: 03/04/2024 14:55 Receipt Acknowledged By: 04/22/2024 12:45 /lilia/ KARTHIK VASQUEZ UX DESIGNER ======== --- Original Document --- 03/03/24 INTEGRATED SUMMARY: PSYCHIATRY EVALUATION & MANAGMENT 03/03/24 10:30 * 90 minute [facility] visit for psychiatric evaluation and management with diagnostic evaluation with medical services. CC: Depression and suicide ideation. HISTORY OF PRESENT ILLNESS: 43 year old [employer] , 10% service-connected for medical, with a history of chronic PTSD and recurrent major depressive disorder presenting to [facility]. CC: Depressed mood and suicidal ideation. HISTORY OF PRESENT ILLNESS: 43 year old with a history of chronic pancreatitis, major depressive disorder, presenting to [facility]. Mood: She is post psychiatric hospitalization 12/20-12/26/23 for [...] daily and 300 mg at bedtime. She had also noted during the hospitalization that she had a gambling addiction. She subsequently participated in the psychiatric partial hospitalization program and was discharged on 01/23/24 (discharge diagnoses major depressive disorder and PTSD). She is currently participating in individual psychotherapy with Frances Cruz. Her quetiapine dose was reduced to 100 mg by clinical pharmacist Dr. Lowry due to SE of sedation but due to report of increased thoughts of suicide the quetiapine was subsequently increased back to 200 mg daily in early February. She reports she continues to experience daily suicidal ideation but denies further intent or plan (more just intrusive thoughts right now). She is on a high risk for suicide flag. 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 She states she was denied disability and had to terminate her lease. She is staying with her soon to be ex-. She reports their relationship is amicable and that he is overall supportive. 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 She also has history of MST. She is currently in individual therapy with Frances Cruz. She anticipates starting IRT in the future. Currently she has nightmares 4-5 times per week. Frequent awakening causes her to feel tired during the daytime. She is interested in taking a medication for nightmares. Psychosis: She reports a brief history of [...] typically occur when under stress. Substance abuse: She denies any history of alcohol abuse. [...] database. Service Branch Service # Entered Discharge [employer] SEP 24, 2006 FEB 12, 2007 HONORABLE PAST MEDICAL HISTORY Cancer cervix screening status (SCT 2438Chronic idiopathic urticaria ([facility] [id number]) Family social history ([facility] [id number]) Generalized anxiety disorder ([facility] [id number]) Major depressive disorder (SCT 365681271Aatftkj of post-traumatic stress disorder (SCT 937958176276169) Hyperlipidemia (SCT 08800574) Dysfunction of sphincter of Oddi (SCT 752475461) Posttraumatic stress disorder ([facility] 23278Ta significant change since previous mammogram ([facility] [id number]) MEDICATIONS Active Outpatient Medications (including Supplies): Active Outpatient Medications Status === 1) ALBUTEROL 90MCG [...] ACTIVE TWICE A DAY FOR ALLERGIES 9) IBUPROFEN 800MG TAB TAKE ONE TABLET BY MOUTH THREE HOLD TIMES A DAY NEEDED FOR PAIN 10) NALOXONE HCL 4MG/SPRAY SOLN NASAL SPRAY 1 DOSE ACTIVE IN ONE NOSTRIL DIRECTED FOR UNRESPONSIVENESS THEN CALL 911 - IF NO CHANGE IN 2-3 MINUTES, GIVE SECOND DOSE IN OPPOSITE NOSTRIL 11) NICOTINE 2MG GUM CHEW 1 PIECE [...] EVERY MORNING FOR DEPRESSION 15) QUETIAPINE FUMARATE 300MG TAB TAKE ONE TABLET BY ACTIVE MOUTH AT BEDTIME FOR DEPRESSION 16) TACROLIMUS 0.1% TOP OINT APPLY THIN LAYER TOPICALLY HOLD TWICE A DAY NEEDED FOR SEVERE ITCHING/DERMATITIS Active Non-VA Medications Status === 1) Non-VA HYDROMORPHONE 2MG TAB 4MG MOUTH EVERY 6 HOURS ACTIVE NEEDED 2) Non-VA LORAZEPAM 0.5MG TAB 0.5MG MOUTH EVERY 8 HOURS ACTIVE NEEDED 18 Total Medications Allergies: PFIZER COVID-19 VACCINE (EUA) (Mar 26, 2023) FENTANYL (Mar 26, 2023) INFLUENZA (Mar 26, 2023) MIRALAX (Mar 26, 2023) VITALS-last on file Temperature: 98.6 F [37.0 C] (01/05/2024 12:11) Blood Pressure: 125/80 (01/05/2024 12:11) Pulse: 77 (01/05/2024 12:11) Respiration: 16 (01/05/2024 12:11) Pain: 3 (12/29/2023 06:18) Pulse Oximetry: 98% (01/05/2024 12:11) MENTAL STATUS EXAM Appearance: Well appearing, appropriately dressed and groomed. Orientation: Alert, and oriented to person, place, month, year and situation. Motor: No psychomotor agitation or retardation observable by video. Speech: Fluent with normal rate and volume. Mood: Okay. Affect: Constricted with fair reactivity. Thought content: Daily suicidal ideation without intent or plan. Denies homicidal thoughts. Denies auditory or visual hallucinations. No elicited delusions. Thought process: Organized [...] Major depressive disorder, recurrent, in partial remission: continues to have suicide ideation daily but no longer expresses suicide intent or plan. She remains on a high risk for suicide flag. Differential diagnosis includes bipolar disorder (with possible mixed episode prior to hospitalization and and/or borderline personality disorder (transient psychotic or psychotic-like experiences and recurrent dissociative episodes). Communications Planner recommended a diagnostic assessment to clarify bipolar disorder and characterological traits to help guide future treatment. -Suicide safety plan completed 01/28/24. -Continue duloxetine 60 mg daily. -Continue quetiapine 200 mg daily and 300 mg at bedtime. -Quetiapine 25 mg 3 times a day as needed for anxiety (prescription ; patient agrees to contact if he needs this renewed) -Trazodone 50 mg nightly as needed for insomnia. #. Chronic PTSD: Medications as above and individual therapy with Ms. Cruz. -Start prazosin 2 mg nightly for several nights, then increase to 4 mg nightly thereafter. -Discussed veterans interest in the PTSD/ketamine study; will contact with the social services coordinator for eligibility screening. EDUCATION: completed today [...] 2 years. B. Modifiable risk factors include [place] I disorder, anxiety, impulsivity, unemployed, insomnia. C. Protective factors include future orientation, [...] call 911. Return to Clinic: 4-6 weeks. Mood: Substance abuse: Medical: PSYCHIATRIC HISTORY Hospitalizations: Denies. Suicide attempts/SIB: Denies. Medication trials: Trauma history: Therapy: Access to firearms: SOCIAL & FAMILY HISTORY: The patient is and lives with spouse Denies known FH of suicide attempts. SERVICE: See database. Service Branch Service # Entered Discharge [employer] SEP 24, 2006 FEB 12, 2007 HONORABLE Cancer cervix screening status (SCT 2438Chronic idiopathic urticaria (SCT 333604536) Family social history ([facility] [id number]) Generalized anxiety disorder ([facility] 95588205) Major depressive disorder ([facility] [id number] of post-traumatic stress disorder ([facility] [id number]) Hyperlipidemia ([facility] 00051919) Dysfunction of sphincter of Oddi ([facility] 207629314) Posttraumatic stress disorder ([facility] 71927Bx significant change since previous mammogram ([facility] [id number]) MEDICATIONS Active Outpatient Medications (including Supplies): Active Outpatient Medications Status === 1) ALBUTEROL 90MCG [...] ACTIVE TWICE A DAY FOR ALLERGIES 9) IBUPROFEN 800MG TAB TAKE ONE TABLET BY MOUTH THREE HOLD TIMES A DAY NEEDED FOR PAIN 10) NALOXONE HCL 4MG/SPRAY SOLN NASAL SPRAY 1 DOSE ACTIVE IN ONE NOSTRIL DIRECTED FOR UNRESPONSIVENESS THEN CALL 911 - IF NO CHANGE IN 2-3 MINUTES, GIVE SECOND DOSE IN OPPOSITE NOSTRIL 11) NICOTINE 2MG GUM CHEW 1 PIECE [...] EVERY MORNING FOR DEPRESSION 15) QUETIAPINE FUMARATE 300MG TAB TAKE ONE TABLET BY ACTIVE MOUTH AT BEDTIME FOR DEPRESSION 16) TACROLIMUS 0.1% TOP OINT APPLY THIN LAYER TOPICALLY HOLD TWICE A DAY NEEDED FOR SEVERE ITCHING/DERMATITIS Active Non-VA Medications Status === 1) Non-VA HYDROMORPHONE 2MG TAB 4MG MOUTH EVERY 6 HOURS ACTIVE NEEDED 2) Non-VA LORAZEPAM 0.5MG TAB 0.5MG MOUTH EVERY 8 HOURS ACTIVE NEEDED 18 Total Medications Allergies: PFIZER COVID-19 VACCINE (EUA) (Mar 26, 2023) FENTANYL (Mar 26, 2023) INFLUENZA (Mar 26, 2023) MIRALAX (Mar 26, 2023) VITALS-last on file MENTAL STATUS EXAM Appearance: Orientation: Alert, and oriented to person, place, month, year and situation. Motor: No psychomotor agitation or retardation observable by video. Speech: Fluent with normal rate and volume. Mood: Affect: Thought content: Denies suicidal or homicidal thoughts. Denies auditory or visual hallucinations. No elicited delusions. Thought process: Organized with intact associations. Cognition: Grossly intact short and long-term memory. Not formally tested. Insight: Fair. Judgment: Consentable to psychiatric medications. PERTINENT LABS AND IMAGING: There is no head/brain imaging. METABOLIC MONITORING: A1C lipids TARDIVE DYSKINESIA MONITORING: last evaluation PRESCRIPTION MONITORING PROGRAM: See related documentation. ASSESSEMENT&PLAN: #. #. #. - Mailed Flyer for ARS drop in clinic to establish CD treatment options and recovery meetings (12-Step, SMART Recovery, AA, NA, etc.) EDUCATION: completed today regarding risks and possible side effects associated with taking the above mentioned psychiatric medications. Patient verbalized understanding of the education topics and agreed to continue with the current treatment plan. SAFETY: The patient is currently at low acute risk but chronic elevated risk of self-harm or violence based on the following risk assessment: A. Fixed risk factors: Age, gender, race, , , history of prior suicide attempt, family history of suicide attempt, history of trauma, history of prior medication overdoses requiring hospitalization, hospital discharge within 2 years. B. Modifiable risk factors include [place] I disorder, bipolar disorder, suicidal ideation, anxiety, agitation, anger, substance use disorder, substance withdrawal, impulsivity, low socioeconomic status, [place] resident, poor social support, unemployed, chronic mental illness, hopelessness, feeling trapped, insomnia, access to firearms. C. Protective factors include future orientation, established outpatient plan and motivation for treatment, lack of current agitation, lack of known intoxication or withdrawal from substances, reported lack of access to firearms, lack of reported prior suicide attempt. The patient was instructed to call 911 or go to nearest emergency services if they become acutely suicidal or homicidal. The patient was instructed to avoid use of alcohol or drugs as they may exacerbate mood symptoms, anxiety and increase their risk of suicide or violence. Specific attempts to address modifiable factors include medications to treat depression, anxiety, agitation, insomnia, psychotic symptoms, substance abuse, recommendations for psychotherapy to improve coping skills, care coordination with substance abuse counseling, recommendations to remove access to firearms should suicidal thoughts develop or intensify and ensuring the patient know whom to contact should symptoms worsen: mental health crisis line, nearest emergency department after business hours and weekends, life threatening emergency: call 911. Return to Clinic: /lilia/ Triny Bee MD Psychiatrist Signed: 03/03/2024 12:10 03/03/2024 ADDENDUM STATUS: COMPLETED Care provided: Follow up care covered under the COMPACT Act of 2019 Section 201. Supporting clinical documentation: see above /lilia/ Triny Bee MD Psychiatrist Signed: 03/03/2024 12:12 TRINY BEE [facility] Mar 03, 2024 07:32 AM MENTAL HEALTH NOTE : LOCAL TITLE: MH INTEGRATED SUMMARY STANDARD TITLE: MENTAL HEALTH NOTE DATE OF NOTE: MAR 03, 2024@07:32 ENTRY DATE: MAR 03, 2024@07:32:43 AUTHOR: TRINY BEE EXP COSIGNER: URGENCY: STATUS: COMPLETED MH INTEGRATED SUMMARY Has ADDENDA PSYCHIATRY EVALUATION & MANAGMENT 03/03/24 10:30 * 90 minute [facility] visit for psychiatric evaluation and management with diagnostic evaluation with medical services. CC: Depression and suicide ideation. HISTORY OF PRESENT ILLNESS: 43 year old [employer] , 10% service-connected for medical, with a history of chronic PTSD and recurrent major depressive disorder presenting to [facility]. CC: Depressed mood and suicidal ideation. HISTORY OF PRESENT ILLNESS: 43 year old with a history of chronic pancreatitis, major depressive disorder, presenting to [facility]. Mood: She is post psychiatric hospitalization 12/20-12/26/23 for [...] daily and 300 mg at bedtime. She had also noted during the hospitalization that she had a gambling addiction. She subsequently participated in the psychiatric partial hospitalization program and was discharged on 01/23/24 (discharge diagnoses major depressive disorder and PTSD). She is currently participating in individual psychotherapy with Frances Cruz. Her quetiapine dose was reduced to 100 mg by clinical pharmacist Dr. Lowry due to SE of sedation but due to report of increased thoughts of suicide the quetiapine was subsequently increased back to 200 mg daily in early February. She reports she continues to experience daily suicidal ideation but denies further intent or plan (more just intrusive thoughts right now). She is on a high risk for suicide flag. 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 She states she was denied disability and had to terminate her lease. She is staying with her soon to be ex-. She reports their relationship is amicable and that he is overall supportive. 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 She also has history of MST. She is currently in individual therapy with Frances Cruz. She anticipates starting IRT in the future. Currently she has nightmares 4-5 times per week. Frequent awakening causes her to feel tired during the daytime. She is interested in taking a medication for nightmares. Psychosis: She reports a brief history of [...] typically occur when under stress. Substance abuse: She denies any history of alcohol abuse. [...] database. Service Branch Service # Entered Discharge [employer] SEP 24, 2006 FEB 12, 2007 HONORABLE PAST MEDICAL HISTORY Cancer cervix screening status (SCT 2438Chronic idiopathic urticaria (SCT 848227615) Family social history (SCT 131949230) Generalized anxiety disorder (SCT 12840012) Major depressive disorder (SCT 902612172Dawmpon of post-traumatic stress disorder (SCT 903157451960068) Hyperlipidemia (SCT 68750663) Dysfunction of sphincter of Oddi (SCT 194547820) Posttraumatic stress disorder (SCT 10227Nl significant change since previous mammogram (SCT 634401876) MEDICATIONS Active Outpatient Medications (including Supplies): Active Outpatient Medications Status === 1) ALBUTEROL 90MCG [...] ACTIVE TWICE A DAY FOR ALLERGIES 9) IBUPROFEN 800MG TAB TAKE ONE TABLET BY MOUTH THREE HOLD TIMES A DAY NEEDED FOR PAIN 10) NALOXONE HCL 4MG/SPRAY SOLN NASAL SPRAY 1 DOSE ACTIVE IN ONE NOSTRIL DIRECTED FOR UNRESPONSIVENESS THEN CALL 911 - IF NO CHANGE IN 2-3 MINUTES, GIVE SECOND DOSE IN OPPOSITE NOSTRIL 11) NICOTINE 2MG GUM CHEW 1 PIECE [...] EVERY MORNING FOR DEPRESSION 15) QUETIAPINE FUMARATE 300MG TAB TAKE ONE TABLET BY ACTIVE MOUTH AT BEDTIME FOR DEPRESSION 16) TACROLIMUS 0.1% TOP OINT APPLY THIN LAYER TOPICALLY HOLD TWICE A DAY NEEDED FOR SEVERE ITCHING/DERMATITIS Active Non-VA Medications Status === 1) Non-VA HYDROMORPHONE 2MG TAB 4MG MOUTH EVERY 6 HOURS ACTIVE NEEDED 2) Non-VA LORAZEPAM 0.5MG TAB 0.5MG MOUTH EVERY 8 HOURS ACTIVE NEEDED 18 Total Medications Allergies: PFIZER COVID-19 VACCINE (EUA) (Mar 26, 2023) FENTANYL (Mar 26, 2023) INFLUENZA (Mar 26, 2023) MIRALAX (Mar 26, 2023) VITALS-last on file Temperature: 98.6 F [37.0 C] (01/05/2024 12:11) Blood Pressure: 125/80 (01/05/2024 12:11) Pulse: 77 (01/05/2024 12:11) Respiration: 16 (01/05/2024 12:11) Pain: 3 (12/29/2023 06:18) Pulse Oximetry: 98% (01/05/2024 12:11) MENTAL STATUS EXAM Appearance: Well appearing, appropriately dressed and groomed. Orientation: Alert, and oriented to person, place, month, year and situation. Motor: No psychomotor agitation or retardation observable by video. Speech: Fluent with normal rate and volume. Mood: Okay. Affect: Constricted with fair reactivity. Thought content: Daily suicidal ideation without intent or plan. Denies homicidal thoughts. Denies auditory or visual hallucinations. No elicited delusions. Thought process: Organized [...] Major depressive disorder, recurrent, in partial remission: continues to have suicide ideation daily but no longer expresses suicide intent or plan. She remains on a high risk for suicide flag. Differential diagnosis includes bipolar disorder (with possible mixed episode prior to hospitalization and and/or borderline personality disorder (transient psychotic or psychotic-like experiences and recurrent dissociative episodes). Communications Planner recommended a diagnostic assessment to clarify bipolar disorder and characterological traits to help guide future treatment. -Suicide safety plan completed 01/28/24. -Continue duloxetine 60 mg daily. -Continue quetiapine 200 mg daily and 300 mg at bedtime. -Quetiapine 25 mg 3 times a day as needed for anxiety (prescription ; patient agrees to contact if he needs this renewed) -Trazodone 50 mg nightly as needed for insomnia. #. Chronic PTSD: Medications as above and individual therapy with Ms. Cruz. -Start prazosin 2 mg nightly for several nights, then increase to 4 mg nightly thereafter. -Discussed veterans interest in the PTSD/ketamine study; will contact with the social services coordinator for eligibility screening. EDUCATION: completed today [...] 2 years. B. Modifiable risk factors include [place] I disorder, anxiety, impulsivity, unemployed, insomnia. C. Protective factors include future orientation, [...] call 911. Return to Clinic: 4-6 weeks. Mood: Substance abuse: Medical: PSYCHIATRIC HISTORY Hospitalizations: Denies. Suicide attempts/SIB: Denies. Medication trials: Trauma history: Therapy: Access to firearms: SOCIAL & FAMILY HISTORY: The patient is and lives with spouse Denies known FH of suicide attempts. SERVICE: See database. Service Branch Service # Entered Discharge [employer] SEP 24, 2006 FEB 12, 2007 HONORABLE Cancer cervix screening status ([facility] 2438Chronic idiopathic urticaria ([facility] [id number]) Family social history ([facility] [id number]) Generalized anxiety disorder ([facility] 20984888) Major depressive disorder ([facility] 261038628Slcmrif of post-traumatic stress disorder ([facility] [id number]) Hyperlipidemia ([facility] 96383417) Dysfunction of sphincter of Oddi ([facility] 484587453) Posttraumatic stress disorder ([facility] 50506Ag significant change since previous mammogram ([facility] 985656453) MEDICATIONS Active Outpatient Medications (including Supplies): Active Outpatient Medications Status === 1) ALBUTEROL 90MCG [...] ACTIVE TWICE A DAY FOR ALLERGIES 9) IBUPROFEN 800MG TAB TAKE ONE TABLET BY MOUTH THREE HOLD TIMES A DAY NEEDED FOR PAIN 10) NALOXONE HCL 4MG/SPRAY SOLN NASAL SPRAY 1 DOSE ACTIVE IN ONE NOSTRIL DIRECTED FOR UNRESPONSIVENESS THEN CALL 911 - IF NO CHANGE IN 2-3 MINUTES, GIVE SECOND DOSE IN OPPOSITE NOSTRIL 11) NICOTINE 2MG GUM CHEW 1 PIECE [...] EVERY MORNING FOR DEPRESSION 15) QUETIAPINE FUMARATE 300MG TAB TAKE ONE TABLET BY ACTIVE MOUTH AT BEDTIME FOR DEPRESSION 16) TACROLIMUS 0.1% TOP OINT APPLY THIN LAYER TOPICALLY HOLD TWICE A DAY NEEDED FOR SEVERE ITCHING/DERMATITIS Active Non-VA Medications Status === 1) Non-VA HYDROMORPHONE 2MG TAB 4MG MOUTH EVERY 6 HOURS ACTIVE NEEDED 2) Non-VA LORAZEPAM 0.5MG TAB 0.5MG MOUTH EVERY 8 HOURS ACTIVE NEEDED 18 Total Medications Allergies: PFIZER COVID-19 VACCINE (EUA) (Mar 26, 2023) FENTANYL (Mar 26, 2023) INFLUENZA (Mar 26, 2023) MIRALAX (Mar 26, 2023) VITALS-last on file MENTAL STATUS EXAM Appearance: Orientation: Alert, and oriented to person, place, month, year and situation. Motor: No psychomotor agitation or retardation observable by video. Speech: Fluent with normal rate and volume. Mood: Affect: Thought content: Denies suicidal or homicidal thoughts. Denies auditory or visual hallucinations. No elicited delusions. Thought process: Organized with intact associations. Cognition: Grossly intact short and long-term memory. Not formally tested. Insight: Fair. Judgment: Consentable to psychiatric medications. PERTINENT LABS AND IMAGING: There is no head/brain imaging. METABOLIC MONITORING: A1C lipids TARDIVE DYSKINESIA MONITORING: last evaluation PRESCRIPTION MONITORING PROGRAM: See related documentation. ASSESSEMENT&PLAN: #. #. #. - Mailed Flyer for ARS drop in clinic to establish CD treatment options and recovery meetings (12-Step, SMART Recovery, AA, NA, etc.) EDUCATION: completed today regarding risks and possible side effects associated with taking the above mentioned psychiatric medications. Patient verbalized understanding of the education topics and agreed to continue with the current treatment plan. SAFETY: The patient is currently at low acute risk but chronic elevated risk of self-harm or violence based on the following risk assessment: A. Fixed risk factors: Age, gender, race, , , history of prior suicide attempt, family history of suicide attempt, history of trauma, history of prior medication overdoses requiring hospitalization, hospital discharge within 2 years. B. Modifiable risk factors include [place] I disorder, bipolar disorder, suicidal ideation, anxiety, agitation, anger, substance use disorder, substance withdrawal, impulsivity, low socioeconomic status, rural resident, poor social support, unemployed, chronic mental illness, hopelessness, feeling trapped, insomnia, access to firearms. C. Protective factors include future orientation, established outpatient plan and motivation for treatment, lack of current agitation, lack of known intoxication or withdrawal from substances, reported lack of access to firearms, lack of reported prior suicide attempt. The patient was instructed to call 911 or go to nearest emergency services if they become acutely suicidal or homicidal. The patient was instructed to avoid use of alcohol or drugs as they may exacerbate mood symptoms, anxiety and increase their risk of suicide or violence. Specific attempts to address modifiable factors include medications to treat depression, anxiety, agitation, insomnia, psychotic symptoms, substance abuse, recommendations for psychotherapy to improve coping skills, care coordination with substance abuse counseling, recommendations to remove access to firearms should suicidal thoughts develop or intensify and ensuring the patient know whom to contact should symptoms worsen: mental health crisis line, nearest emergency department after business hours and weekends, life threatening emergency: call 911. Return to Clinic: /sandra Bee MD Psychiatrist Signed: 03/03/2024 12:10 03/03/2024 ADDENDUM STATUS: COMPLETED Care provided: Follow up care covered under the COMPACT Act of 2019 Section 201. Supporting clinical documentation: see above /sandra Bee MD Psychiatrist Signed: 03/03/2024 12:12 03/04/2024 ADDENDUM STATUS: COMPLETED Co-signing ketamine-PTSD social services coordinator due to 's interest in the study. /sandra Bee MD Psychiatrist Signed: 03/04/2024 14:55 Receipt Acknowledged By: * AWAITING SIGNATURE * KARTHIK VASQUEZ [facility]IN L [place] [facility]
--- OUTSIDE RECORDS SUMMARY | 2024-05-04 07:55 | XMS_ITS | Encounter Summary ---
Author Name [facility] [place] Organization [place] Address [address] [place] [address] Care Team Providers Care Mast Maker Name Role Phone EMIR GRACIA Primary Care Provider Unavailabl e Selected Encounter This section includes the information on record at [place] for the Encounter. Date/Time Encounter Type Encounter Description Reason Provider Source Feb 07, 2024 01:00 PM UNLISTED THERAPEUTIC PX RECREATION THERAPY SERVICE ICD-10-CM Z51.89 Encounter for other specified aftercare CONCEPCIÓN MEZA Lorie Encounter Template Text not used by [place] Assessments - Encounter Diagnoses This section includes the primary and secondary diagnoses documented for the Encounter. Date/Time Primary/Secondary Diagnosis Diagnosis Name Provider Source Feb 09, 2024 05:19 PM PRIMARY Encounter for other specified aftercare CONCEPCIÓN MEZA [facility] Plan of Treatment: Future Appointments (+ [...] 19, 2024 03:00 PM AMBULATORY - PSYCHIATRY [facility] Feb 25, 2024 11:00 AM AMBULATORY - [facility] Mar 02, 2024 11:00 AM AMBUL[facility] Mar 03, 2024 10:30 AM AMBUL[facility]ORY [facility] Mar 10, 2024 11:00 AM AMB[facility]ORY [facility] Mar 24, 2024 11:00 AM AM[facility] Mar 25, 2024 09:00 AM AMBULATORY - PS[facility]CHIATRY [facility] Apr 05, 2024 08:30 AM AMBULATORY - [facility] Apr 09, 2024 01:00 PM AMBULATORY - PSYCHIATRY TW IN [facility] [address] Apr 09, 2024 02:30 PM AMBULATORY - PSYCHIATRY [facility] Apr 12, 2024 09:30 AM [facility] Apr 19, 2024 09:00 AM [facility] Apr 20, 2024 01:00 PM AMBULATORY - PSYCHIATRY TW IN [facility] Apr 26, 2024 09:30 AM AMBUL[facility]ORY - [facility]RY [facility] Apr 27, 2024 01:00 PM AMBULATORY - PSYCHIATRY TW IN [facility] Apr 28, 2024 01:00 PM AMBULATORY [facility]ATRY [facility] May 05, 2024 05:00 PM AMBULATORY - NONE [facility] May 11, 2024 09:00 AM AMBULATORY [...] 05, 2024 12:00 PM VA-TOBACCO FORMER USER [facility] Tobacco Use History This section includes a history of the smoking, or tobacco-related health factors, that were collected on or before the date of the Encounter. The data comes from the [place] facility where the Encounter took place. Date/Time Smoking Status/Tobacco Use Comment F acility Jan 05, 2024 12:00 PM VA-TOBACCO QUIT 5 TO < 15 YRS [facility] Advance Directives: All historical and current [...] ADVANCE DIRECTIVE DISCUSSION SHAHID HURTADO ARINA E [facility] Encounter Notes: All associated encounter notes This section contains the clinical notes associated to the Encounter. Date/Time Encounter Note(s) Provider Source Feb 07, 2024 01:00 PM RECREATIONAL THERA PY NOTE: LOCAL TITLE: RT/CAT MUSIC THERAPY-PROGRESS NOTE STANDARD TITLE: RECREATIONAL THERAPY NOTE DATE OF NOTE: FEB 07, 2024@13:00 ENTRY DATE: FEB 09, 2024@17:17:24 AUTHOR: CONCEPCIÓN MEZA COSIGNER: URGENCY: STATUS: COMPLETED CREATIVE ARTS THERAPY PARTICIPATION NOTE Program: [email or web address] Performance Recording Date: Wednesday, February 07, 2024 Time: 1:00pm-2:00pm Duration: 60 minutes Location: Medical [facility] Facilitators: Concepción Meza; ANTHONY KRISHNAMURTHY,JAKY; JAKY Perales,ANDREY; Alisia Garcia M.Ed.,[employer] UN[employer] ADMINISTRATOR Diagnoses: Z51.89 S: [place] was previously in contact with this Music Therapist to schedule a time slot to film her vocal music entries for the [employer] Competition and to complete required paperwork for entry into the competition. O: The [employer] Competition is a [place] Rehabilitation Special Event focusing on the therapeutic use of the arts to aid in recovery and showcasing Veterans' means of self-expression. Assistance in navigating rules, categories, and submission protocols is provided by Creative Arts Therapists and Recreation Therapists. GOAL: will participate in the [employer] Competition to target physical, cognitive, and emotional needs. A: endorsed an interest in participating in this year's [employer] Competition. Hancock received assistance from two Music Therapists (insurance writer and Rosanne Armijo MA, JAKY, NMT) and one Recreation Therapist (Alisia Garcia M.Ed., [facility]) with video recording her performing arts pieces for entry into the local competition. Nita submitted three entries in Vocal Music (accompanied on piano by Lawn Care Worker). Time spent included one hour filming in a therapeutic environment. Nita was provided with the opportunity to ask questions regarding the submission process, timeline for local competition, national competition, national festival location ([place], [place] in 2024), and local showcase. Nita arrived to scheduled filming session on time. Nita was prepared for this filming session and was well-rehearsed. Nita was provided with bottled water and encouraged to take breaks as needed. Nita was happy with the way her submissions turned out and expressed appreciation for the opportunity and encouragement to participate. No barriers to participation identified. P: Nita has Lawn Care Worker's contact information for any additional questions. We will follow up with Nita regarding competition results, fall Exhibition, and further opportunities that arise during the Creative Arts Competition season. /es/ RAGHU ODOM,DANGELO-CAROLINAT,AKNI CREATIVE ARTS THERAPIST Signed: 02/09/2024 17:19 Receipt Acknowledged By: 02/10/2024 11:31 /es/ ALISIA GARCIA M.ED, [employer] ADMINISTRATOR RECREATION THERAPIST 02/11/2024 13:14 /es/ JAKY ALANIZ MUSIC THERAPIST CONCEPCIÓN MEZA [facility]
--- OUTSIDE RECORDS SUMMARY | 2024-05-04 07:56 | XMS_ITS | Encounter Summary ---
Author Name [facility] [place] [facility] [place] Organization [place] Address [address] [place] [address] Care Team Providers Care Correctional Lieutenant Name Role Phone EMIR GRACIA Primary Care Provider Unavailabl e Selected Encounter This section includes the information on record at [place] for the Encounter. Date/Time Encounter Type Encounter Description Reason Provider Source Apr 20, 2024 01:00 PM 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 ICD-10-CM F51.5 Nightmare disorder DARELL CARDOZA Lorie Encounter Template Text not used by [place] Assessments - Encounter Diagnoses This section includes the primary and secondary diagnoses documented for the Encounter. Date/Time Primary/Secondary Diagnosis Diagnosis Name Provider Source Apr 20, 2024 01:40 PM PRIMARY Nightmare disorder [facility] Plan of Treatment: Future Appointments (+ 6 months) and Future Tests (+/- 45 days) The Plan of Treatment section includes future care activities for the patient from all [place] treatmentfacilities. This section includes future appointments and [...] 2024 09:30 AM AMBULATORY - PSYCHIATRY [facility] Apr 27, 2024 01:00 PM AMBULATORY - PSYCHIATRY TW [facility] Apr 28, 2024 01:00 PM AMBULATORY - PS[facility]IATRY [facility] May 05, 2024 05:00 PM [facility]ATORY - NONE [place] [facility] May 11, 2024 09:00 AM AMBULATORY - PSYCHIATRY [facility] May 11, 2024 01:00 PM AMBULATORY - PSYCHIATRY TW [facility] May 18, 2024 11:00 AM AMBULATORY - PS[facility]CHIATRY [facility] May 18, 2024 01:00 PM [facility] May 24, 2024 08:30 AM [facility] [place] [facility] Active, Pending, and Scheduled Orders This section includes a listing of several types of active, pending, and scheduled orders, including clinic medications orders, diagnostic test orders, procedure orders and consult orders; where the start date of the order is 45 days before the date of the Encounter or 45 days after the date of theEncounter. The data comes from all [place] treatment facilities. Test Date/Time Test Type Test Details Facility Name Apr 19, 2024 09:46 AM Consult Order CARDIAC EC HO OUTPT-ALL SITES Cons [facility]el [facility] [employer] [place] [facility] Apr 19, 2024 10:08 AM Consult Order CARDIAC EC HO-SPECIAL PROCEDURE [facility] [employer] [facility] [place] [facility] Apr 19, 2024 10:47 AM Consult Order COMMUNITY CARE-NUCLEAR MEDICINE Cons [facility] Lab Results: +/- 30 days [...] Range Comment Apr 19, 2024 10:21 AM [facility] HEMOGLOBIN A1C Specimen Type: BLOOD [...] 19, 2024 09:46 AM Reporting Lab: [facility] [id number] Performing Lab: [facility] [id number] HEMOGLOBIN A1C 4.9 4.0-6.0 Apr 19, 2024 10:21 AM DEEPIKA NOEL TSH W/REFLEX TO FREE T4 Specimen Type: PLASMA Comment: Elevated triglyceride result from a non-fasting specimen should be interpreted with caution. A fasting panel is recommended for accurate triglycerides when trigs are >200 from a non-fasting specimen. Ordering Provider: EMIR GRACIA Report Released Date/Time: Apr 19, 2024 09:46 AM Reporting Lab: [facility] [id number] Performing Lab: [facility] [id number] TSH 0.69 u[IU]/mL 0.35-4.94 Apr 19, 2024 10:21 AM DEEPIKA NOEL LIPID PANEL,NON-FASTING Specimen Type: PLASMA Comment: Elevated triglyceride result from a non-fasting specimen should be interpreted with caution. A fasting panel is recommended for accurate triglycerides when trigs are >200 from a non-fasting specimen. Ordering Provider: EMIR GRACIA Report Released Date/Time: Apr 19, 2024 09:46 AM Reporting Lab: [facility] [id number] Performing Lab: [facility] [id number] CHOLESTEROL 263 mg/dL H <199 .HDL 38 mg/dL L >50 LDL CALCULATION 151 mg/dL H <99 VLDL CALCULATION 74 mg/dL H <29 NON HDL CHOLESTEROL 225 mg/dL H <129 TRIG(NON FASTING) 368 mg/dL H <149 Apr 19, 2024 10:21 AM [facility] ANTI-HEP C(EIA) Specimen Type: SERUM No comment entered. Ordering Provider: EMIR GRACIA Report Released Date/Time: Apr 19, 2024 10:00 AM Reporting Lab: [facility] [id number] Performing Lab: [facility] [id number] ANTI-HEP C(EIA) NEGATIVE NEGATIVE Apr 19, 2024 10:21 AM [place] [facility] COMPREHENSIVE METABOLIC PANEL+MG Specimen Type: PLASMA Comment: Elevated triglyceride result from a non-fasting specimen should be interpreted with caution. A fasting panel is recommended for accurate triglycerides when trigs are >200 from a non-fasting specimen. Ordering Provider: EMIR GRACIA Report Released Date/Time: Apr 19, 2024 09:46 AM Reporting Lab: [facility] [id number] Performing Lab: [facility] [id number] CREATININE 1.0 mg/dL 0.5-1.0 UREA NITROGEN 10 [...] 71 >60 Apr 19, 2024 10:21 AM [place] [facility] CBC Specimen Type: BLOOD No comment entered. Ordering Provider: EMIR GRACIA Report Released Date/Time: Apr 19, 2024 09:46 AM Reporting Lab: [facility] [id number] Performing Lab: [facility] [id number] WBC 5.5 4.0-11.0 RBC 4.74 4.00-5.40 HGB 13.4 g/dL 11.5-16 HCT 39.7 34.5-48 MCV 83.8 fL 80-100 MCH 28.3 pg 27-33 MCHC 33.8 g/dL 32.0-37.5 PLT 370 150-400 MPV 9.8 fL 9.1-13.0 RDW 12.0 11.5-14.5 Advance Directives: All historical and current Section Date Range: From patient's date of to the date document was created. This section includes ALL of a patient's completed or amended [place] Advance and Rescinded Directives. The entries below [...] VIEWS PA A ND LAT: BILLIE ZAVALA [id number] -[phone] F Exm Date: APR 19, 2024@09:48 Req Phys: EMIR GRACIA Loc: [facility] PACT DIAMONDS (Req'g Loc) Img Loc: [facility] RADIOLOGY Service: Unknown Screen: [place] [address] (Case [id number] COMPLETE) CHEST 2 VIEWS PA AND LAT (RAD Detailed) CPT:93995 Reason for Study: chest pain Clinical History: IS NOT under investigation for COVID-19 or is COVID-19 negative chest pain Responsible provider name and phone number to notify for critical findings if other than user placing the order and pager listed below: User placing orders pager: LAST CREATININE 1.0 (12/21/23) Report Status: Verified Date Reported: APR 19, 2024 Date Verified: APR 19, 2024 Electrical Tech E-Sig:/ES/PIA VARGAS MD, FACR, CCD Report: EXAMINATION: CHEST 2 VIEWS PA AND LAT 04/19/2024 9:48 AM INDICATION: chest pain COMPARISON: None. FINDINGS: The cardiac silhouette and pulmonary vasculature are within normal limits. The lungs appear clear of infiltrate. No pleural fluid identified. Impression: No active pulmonary disease visualized. Primary Interpreting Staff: PIA VARGAS MD, FACR, STAFF RADIOLOGIST (Electrical Tech) /BSF PIA VARGAS [facility] Encounter Notes: All associated encounter notes This section contains the clinical notes associated to the Encounter. Date/Time Encounter Note(s) Provider Source Apr 20, 2024 01:39 PM MENTAL HEALTH NOTE : LOCAL TITLE: MH PROGRESS NOTE STANDARD TITLE: MENTAL HEALTH NOTE DATE OF NOTE: APR 20, 2024@13:39 ENTRY DATE: APR 20, 2024@13:39:27 AUTHOR: DARELL CARDOZA COSIGNER: URGENCY: STATUS: COMPLETED MH PROGRESS NOTE Has ADDENDA IDENTIFYING INFORMATION: Nita is a 43-year-old, service connected, female. She was seen for 40 minutes for a follow-up individual therapy session with health science writer via [facility]. Informed consent for treatment and confidentiality and limits and benefits of treatment were reviewed with patient and they indicated understanding and agreement in the first session. Visit conducted by synchronous telehealth. [place] verbal consent obtained. Location/emergency number confirmed. Environment surveyed and all participants identified. Virtual conference room locked. SESSION FOCUS: This was session two of Imagery Rehearsal Therapy (IRT). Nita said things have been okay. She said her mood has been up and down. She said she has been busy and tired. Nita had completed the nightmare log and it was reviewed. Topics discussed today included: information on guided imagery and developing a personal pleasant imagery scene. Nita was talked through a pleasant guided imagery exercise. She said she already has an imagery scene she finds effective and plans to practice that between now and next session. She was encouraged to practice her imagery scene for at least two 10-minute imagery sessions daily. The importance of practice was discussed. Nita also agreed to complete the nightmare log for next session. The [place] indicated readiness to learn for the education provided during this session as noted above. The [place] also indicated understanding by asking questions and making appropriate comments. Current Treatment Plan Date: 04/09/24 Plan Renewal Date: 04/09/25 OBSERVATIONS: The connected on time for the session. Mood seemed euthymic and affect was congruent with topics discussed. Speech was fluent with normal rate and volume. Thought flow was organized and goal-directed. Thought content appeared to be focused on content related to the session. There were no indications of audio/visual hallucinations. RISK INFORMATION: denied any suicidal or homicidal ideation since last session. Risk factors for suicide include: history of suicidal behavior, limited social support, PTSD, sleep issues. Protective factors include: engaged with treatment, school and clinicals, no access for firearms, enjoyable activities. has been informed of the emergent procedures. Risk Determination: Acute: Low, Chronic: Low. 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 Her primary therapist is FRANCESCA Trevino, and she is followed by Dr. Alonso for psychiatry. /sandra CARDOZA PsyD, LP STAFF PSYCHOLOGIST Signed: 04/20/2024 13:44 04/20/2024 ADDENDUM STATUS: COMPLETED Care provided: Follow up care covered under the COMPACT Act of 2019 Section 201. Supporting clinical documentation: Assessed for suicidal ideation, which patient denied since last session. /sandra CARDOZA PsyD, LP STAFF PSYCHOLOGIST Signed: 04/20/2024 13:46 DARELL CARDOZA [facility]
--- OUTSIDE RECORDS SUMMARY | 2024-05-04 07:56 | XMS_ITS | Encounter Summary ---
Author Name [facility] Address [address] [place] [address] Care Team Providers Care Light Truck Driver Name Role Phone EMIR GRACIA Primary Care Provider Unavailabl e Selected Encounter This section includes the information on record at [place] for the Encounter. Date/Time Encounter Type Encounter Description Reason Provider Source Apr 19, 2024 10:47 AM BREATHING CAPACITY TEST PULMONARY FUNCTION ICD-10-CM R06.00 Dyspnea, unspecified PEDRITO FERNANDEZ Encounter Template Text not used by [place] Assessments - Encounter Diagnoses This section includes the primary and secondary diagnoses documented for the Encounter. Date/Time Primary/Secondary Diagnosis Diagnosis Name Provider Source Apr 19, 2024 10:48 AM PRIMARY Dyspnea, unspecified YADIRA ORTIZ [facility] Plan of Treatment: Future Appointments (+ 6 months) and Future Tests (+/- 45 days) The Plan of Treatment section includes future care activities for the patient from all [place] treatmentfacilities. This section includes future appointments and future orders which are active, pending or scheduled. Future Appointments This section includes appointments that were scheduled to occur 6 months from the date of the Encounter, up to a maximum of 20 appointments. The data comes from all [place] treatment facilities. Appointment Date/Time Appointment Type Appointme nt Facility Name Apr 20, 2024 01:00 PM AMBULATORY - PSYCHIATRY [facility] Apr 26, 2024 09:30 AM AMB[facility]ATORY - PS[facility]CHIATRY [facility] Apr 27, 2024 01:00 PM AMBULATORY - PSYCHIATRY TW [facility] Apr 28, 2024 01:00 PM AMBULATORY - PS[facility]CHIATRY [facility] May 05, 2024 05:00 PM AM[facility]UL[facility]ORY - NONE [facility] May 11, 2024 09:00 AM AMBULATORY - PS[facility]CHIATRY [facility] May 11, 2024 01:00 PM AMBULATORY - PSYCHIATRY TW [facility] May 18, 2024 11:00 AM AMBULATORY - PSYCHIATRY TW [facility] May 18, 2024 01:00 PM AM[facility]UL[facility]ORY [place]ICINE [place] [facility] May 24, 2024 08:30 AM [facility] Active, Pending, and Scheduled Orders This section includes a listing of several types of active, pending, and scheduled orders, including clinic medications orders, diagnostic test orders, procedure orders and consult orders; where the start date of the order is 45 days before the date of the Encounter or 45 days after the date of theEncounter. The data comes from all [place] treatment facilities. Test Date/Time Test Type Test Details Facility Name Apr 19, 2024 09:46 AM Consult Order CARDIAC EC HO OUTPT-ALL SITES Cons Rn Provider Relations's Choice [facility] Apr 19, 2024 10:08 AM Consult Order CARDIAC EC HO-SPECIAL PROCEDURE Cons Rn Provider Relations's Choice [facility] Apr 19, 2024 10:47 AM Consult Order COMMUNITY CARE-NUCLEAR MEDICINE Cons Rn Provider Relations's Choice [facility] Lab Results: +/- 30 days of the encounter This section includes the Chemistry and Hematology Lab Results on record with [place] for the patient. Radiology Reports and Pathology Reports are provided separately, in subsequent sections. Lab Results This section contains the Chemistry/Hematology Results that were resulted 30 days before or 30 daysafter the date of the Encounter. Date/Time Source Result Type Result - Unit Interpretation Reference Range Comment Apr 19, 2024 10:21 AM [facility] TSH W/REFLEX TO FREE T4 Specimen Type: PLASMA Comment: Elevated triglyceride result from a non-fasting specimen should be interpreted with caution. A fasting panel is recommended for accurate triglycerides when trigs are >200 from a non-fasting specimen. Ordering Provider: EMIR GRACIA Report Released Date/Time: Apr 19, 2024 09:46 AM Reporting Lab: [facility] [id number] Performing Lab: [facility] [id number] TSH 0.69 u[IU]/mL 0.35-4.94 Apr 19, 2024 10:21 AM [facility] NOEL LIPID PANEL,NON-FASTING Specimen Type: PLASMA Comment: Elevated triglyceride result from a non-fasting specimen should be interpreted with caution. A fasting panel is recommended for accurate triglycerides when trigs are >200 from a non-fasting specimen. Ordering Provider: EMIR GRACIA Report Released Date/Time: Apr 19, 2024 09:46 AM Reporting Lab: [facility] [id number] Performing Lab: [facility] [id number] CHOLESTEROL 263 mg/dL H <199 .HDL 38 mg/dL L >50 LDL CALCULATION 151 mg/dL H <99 VLDL CALCULATION 74 mg/dL H <29 NON HDL CHOLESTEROL 225 mg/dL H <129 TRIG(NON FASTING) 368 mg/dL H <149 Apr 19, 2024 10:21 AM [place] [facility] HEMOGLOBIN A1C Specimen Type: BLOOD Comment: Values [...] Apr 19, 2024 09:46 AM Reporting Lab: [facility] [id number] Performing Lab: [facility] [id number] HEMOGLOBIN A1C 4.9 4.0-6.0 Apr 19, 2024 10:21 AM [place] [facility] ANTI-HEP C(EIA) Specimen Type: SERUM No comment entered. Ordering Provider: EMIR GRACIA Report Released Date/Time: Apr 19, 2024 10:00 AM Reporting Lab: [facility] [id number] Performing Lab: [facility] [phone] ANTI-HEP C(EIA) NEGATIVE NEGATIVE Apr 19, 2024 10:21 AM [facility] COMPREHENSIVE METABOLIC PANEL+MG Specimen Type: PLASMA Comment: Elevated triglyceride result from a non-fasting specimen should be interpreted with caution. A fasting panel is recommended for accurate triglycerides when trigs are >200 from a non-fasting specimen. Ordering Provider: EMIR GRACIA Report Released Date/Time: Apr 19, 2024 09:46 AM Reporting Lab: [facility] [id number] Performing Lab: [facility] [id number] CREATININE 1.0 mg/dL 0.5-1.0 UREA NITROGEN 10 [...] 71 >60 Apr 19, 2024 10:21 AM [facility] CBC Specimen Type: BLOOD No comment entered. Ordering Provider: EMIR GRACIA Report Released Date/Time: Apr 19, 2024 09:46 AM Reporting Lab: [facility] [phone] Performing Lab: [facility] [id number] WBC 5.5 4.0-11.0 RBC 4.74 4.00-5.40 HGB [...] and tobacco- related health factors from the [place] facility where the Encounter took place. Current Smoking Status This section includes the most current smoking, or tobacco-related health factor, from the [place] facility where the Encounter took place. Date/Time Current Smoking Status Comment Facil ity Jan 05, 2024 12:00 PM VA-TOBACCO FORMER USER [facility] Tobacco Use History This section includes a history of the smoking, or tobacco-related health factors, that were collected on or before the date of the Encounter. The data comes from the [place] facility where the Encounter took place. Date/Time Smoking Status/Tobacco Use Comment F acility Jan 05, 2024 12:00 PM [place]-TOBACCO QUIT 5 TO < 15 YRS [facility] Advance Directives: All historical and current Section Date Range: From patient's date of to the date document was created. This section includes ALL of a patient's completed or amended [place] Advance and Rescinded Directives. The entries below indicate that a directive exists for the patient, but an actual copy is not included with this document. The data comes from all [facility]. Date Advance Directives Provider Source Jan 05, 2024 ADVANCE DIRECTIVE DISCUSSION SHAHID HURTADO [facility] Radiology Reports: +/- 30 days [...] the Encounter. The data comes from all [place] treatment facilities. Date/Time Radiology Report Provider Source Apr 19, 2024 09:48 AM CHEST 2 VIEWS PA A ND LAT: BILLIE ZAVALA [id number] [id number] Exm Date: APR 19, 2024@09:48 Req Phys: EMIR GRACIA Loc: K PACT DIAMONDS (Req'g Loc) Img Loc: [facility] RADIOLOGY Service: Unknown Screen: [place] [address] (Case [id number] COMPLETE) CHEST 2 VIEWS PA AND LAT (RAD Detailed) CPT:84473 Reason for Study: chest pain Clinical History: [place] IS NOT under investigation for COVID-19 or is COVID-19 negative chest pain Responsible provider name and phone number to notify for critical findings if other than user placing the order and pager listed below: User placing orders pager: LAST CREATININE 1.0 (12/21/23) Report Status: Verified Date Reported: APR 19, 2024 Date Verified: APR 19, 2024 Motion Picture Projectionist E-Sig:/ES/PIA VARGAS MD, FACR, CCD Report: EXAMINATION: CHEST 2 VIEWS PA AND LAT 04/19/2024 9:48 AM INDICATION: chest pain COMPARISON: None. FINDINGS: The cardiac silhouette and pulmonary vasculature are within normal limits. The lungs appear clear of infiltrate. No pleural fluid identified. Impression: No active pulmonary disease visualized. Primary Interpreting Staff: PIA VARGAS MD, FACR, STAFF RADIOLOGIST (Motion Picture Projectionist) /PIA OLGUIN [facility]
--- OUTSIDE RECORDS SUMMARY | 2024-05-04 07:56 | XMS_ITS ---
Author Name [facility] Organization [facility] Address [address] [place] [address] Care Team Providers Care Address Change Clerk Name Role Phone EMIR GRACIA Primary Care Provider Unavailabl e Selected Encounter This section includes the information on record at [place] for the Encounter. Date/Time Encounter Type Encounter Description Reason Provider Source Apr 09, 2024 01:00 PM 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 - IND ICD-10-CM F51.5 Nightmare disorder DARELL DAN Lorie Encounter Template Text not used by [place] Assessments - Encounter Diagnoses This section includes the primary and secondary diagnoses documented for the Encounter. Date/Time Primary/Secondary Diagnosis Diagnosis Name Provider Source Apr 09, 2024 01:52 PM PRIMARY Nightmare disorder [facility] Plan of Treatment: Future Appointments (+ 6 months) and Future Tests (+/- 45 days) The Plan of Treatment section includes future care activities for the patient from all [place] treatmentfacilities. This section includes future appointments and future orders which are active, pending or scheduled. Future Appointments This section includes appointments that were scheduled to occur 6 months from the date of the Encounter, up to a maximum of 20 appointments. The data comes from all [place] treatment facilities. Appointment Date/Time Appointment Type Appointme nt Facility Name Apr 12, 2024 09:30 AM AMBULATORY - PSYCHIATRY [place] [facility] Apr 19, 2024 09:00 AM AMBULATORY - MEDICINE [facility] Apr 20, 2024 01:00 PM AMBULATORY - PSYCHIATRY TW IN [facility] Apr 26, 2024 09:30 AM AMBULATORY - PSYCHIATRY [facility] [place] [facility] Apr 27, 2024 01:00 PM AMBULATORY - PSYCHIATRY TW IN [facility] Apr 28, 2024 01:00 PM AMBULATORY - PSYCHIATRY [facility] [place] [facility] May 05, 2024 05:00 PM AMBULATORY - NONE [place] [facility] May 11, 2024 09:00 AM AMBULATORY - PSYCHIATRY [facility] [place] [facility] May 11, 2024 01:00 PM AMBULATORY - PSYCHIATRY TW IN [facility] May 18, 2024 11:00 AM AMBULATORY - PSYCHIATRY TW IN [facility] May 18, 2024 01:00 PM AMBULATORY [place]IC[place] [facility] May 24, 2024 08:30 AM [facility] [place] [facility] Active, Pending, and Scheduled Orders This section includes a listing of several types of active, pending, and scheduled orders, including clinic medications orders, diagnostic test orders, procedure orders and consult orders; where the start date of the order is 45 days before the date of the Encounter or 45 days after the date of theEncounter. The data comes from all [place] treatment facilities. Test Date/Time Test Type Test Details Facility Name Apr 19, 2024 09:46 AM Consult Order CARDIAC EC HO OUTPT-ALL SITES Cons [employer] [facility] Apr 19, 2024 10:08 AM Consult Order CARDIAC EC HO-SPECIAL PROCEDURE Cons [employer] [facility] Apr 19, 2024 10:47 AM Consult Order COMMUNITY CARE-NUCLEAR MEDICINE Cons [employer] [place] Results: +/- 30 days of the encounter This section includes the Chemistry and Hematology Lab Results on record with [place] for the patient. Radiology Reports and Pathology Reports are provided separately, in subsequent sections. Lab Results This section contains the Chemistry/Hematology Results that were resulted 30 days before or 30 daysafter the date of the Encounter. Date/Time Source Result Type Result - Unit Interpretation Reference Range Comment Apr 19, 2024 10:21 AM [facility] HEMO[facility] A1C Specimen Type: BLOOD Comment: Values [...] 09:46 AM Reporting Lab: [facility] [id number] Performing Lab: [facility] [id number] HEMOGLOBIN A1C 4.9 4.0-6.0 Apr 19, 2024 10:21 AM [facility] [email or web address] TSH W/REFLEX TO FREE T4 Specimen Type: PLASMA Comment: Elevated triglyceride result from a non-fasting specimen should be interpreted with caution. A fasting panel is recommended for accurate triglycerides when trigs are >200 from a non-fasting specimen. Ordering Provider: EMIR GRACIA Report Released Date/Time: Apr 19, 2024 09:46 AM Reporting Lab: [facility] [id number] Performing Lab: [facility] [id number] TSH 0.69 u[IU]/mL 0.35-4.94 Apr 19, 2024 10:21 AM [facility] [email or web address] LIPID PANEL,NON-FASTING Specimen Type: PLASMA Comment: Elevated triglyceride result from a non-fasting specimen should be interpreted with caution. A fasting panel is recommended for accurate triglycerides when trigs are >200 from a non-fasting specimen. Ordering Provider: EMIR GRACIA Report Released Date/Time: Apr 19, 2024 09:46 AM Reporting Lab: [facility] [id number] Performing Lab: [facility] [id number] CHOLESTEROL 263 mg/dL H <199 .HDL 38 mg/dL L >50 LDL CALCULATION 151 mg/dL H <99 VLDL CALCULATION 74 mg/dL H <29 NON HDL CHOLESTEROL 225 mg/dL H <129 TRIG(NON FASTING) 368 mg/dL H <149 Apr 19, 2024 10:21 AM [facility] NO[facility] ANTI-HEP C(EIA) Specimen Type: SERUM No comment entered. Ordering Provider: EMIR GRACIA Report Released Date/Time: Apr 19, 2024 10:00 AM Reporting Lab: [facility] [id number] Performing Lab: [facility] [id number] ANTI-HEP C(EIA) NEGATIVE NEGATIVE Apr 19, 2024 10:21 AM [facility] COMPREHENSIVE METABOLIC PANEL+MG Specimen Type: PLASMA Comment: Elevated triglyceride result from a non-fasting specimen should be interpreted with caution. A fasting panel is recommended for accurate triglycerides when trigs are >200 from a non-fasting specimen. Ordering Provider: EMIR GRACIA Report Released Date/Time: Apr 19, 2024 09:46 AM Reporting Lab: [facility] [id number] Performing Lab: [facility] [id number] CREATININE 1.0 mg/dL 0.5-1.0 UREA NITROGEN 10 [...] 71 >60 Apr 19, 2024 10:21 AM [facility] CBC Specimen Type: BLOOD No comment entered. Ordering Provider: EMIR GRACIA Report Released Date/Time: Apr 19, 2024 09:46 AM Reporting Lab: [facility] [id number] Performing Lab: [facility] [id number] WBC 5.5 4.0-11.0 RBC 4.74 4.00-5.40 HGB [...] ALL of a patient's completed or amended [place] Advance and Rescinded Directives. The entries below indicate that a directive exists for the patient, but an actual copy is not included with this document. The data comes from all [facility]. Date Advance Directives Provider Source Jan 05, 2024 ADVANCE DIRECTIVE DISCUSSION SHAHID HURTADO [facility] Radiology Reports: +/- 30 days of [...] the Encounter. The data comes from all [place] treatment facilities. Date/Time Radiology Report Provider Source Apr 19, 2024 09:48 AM CHEST 2 VIEWS PA A ND LAT: BILLIE ZAVALA [id number] -[id number] F Exm Date: APR 19, 2024@09:48 Req Phys: EMIR GRACIA Pat Loc: [facility] PACT DIAMONDS (Req'g Loc) Img Loc: [facility] RADIOLOGY Service: Unknown Screen: [place] [address] (Case [id number] COMPLETE) CHEST 2 VIEWS PA AND LAT (RAD Detailed) CPT:31481 Reason for Study: chest pain Clinical History: Powderly IS NOT under investigation for COVID-19 or is COVID-19 negative chest pain Responsible provider name and phone number to notify for critical findings if other than user placing the order and pager listed below: User placing orders pager: LAST CREATININE 1.0 (12/21/23) Report Status: Verified Date Reported: APR 19, 2024 Date Verified: APR 19, 2024 [employer] Worker E-Sig:/ES/PIA VARGAS MD, FACR, CCD Report: EXAMINATION: CHEST 2 VIEWS PA AND LAT 04/19/2024 9:48 AM INDICATION: chest pain COMPARISON: None. FINDINGS: The cardiac silhouette and pulmonary vasculature are within normal limits. The lungs appear clear of infiltrate. No pleural fluid identified. Impression: No active pulmonary disease visualized. Primary Interpreting Staff: PIA VARGAS MD, FACR, STAFF RADIOLOGIST ([employer] Worker) /BSF PIA VARGAS [facility] Encounter Notes: All associated encounter notes This section contains the clinical notes associated to the Encounter. Date/Time Encounter Note(s) Provider Source Apr 09, 2024 01:07 PM MENTAL HEALTH TYREL TMENT PLAN NOTE: LOCAL TITLE: MH TREATMENT PLAN STANDARD TITLE: MENTAL HEALTH TREATMENT PLAN NOTE DATE OF NOTE: APR 09, 2024@13:07 ENTRY DATE: APR 09, 2024@13:07:10 AUTHOR: DARELL DAN COSIGNER: URGENCY: STATUS: COMPLETED TREATMENT PLAN TYPE: Initial MENTAL HEALTH TEAM ASSIGNMENT: [facility] GEOSPATIAL IMAGERY INTELLIGENCE ANALYST (MHTC): FRANCESCA Trevino TEAM MEMBERS & OTHER COLLABORATORS CONTRIBUTING TO THE 'S CARE AND TREATMENT PLAN: FRANCESCA Trevino, Dr. Alonso PARTICIPATION IN TREATMENT PLANNING: Met with provider and agreed to plan as discussed FAMILY INVOLVEMENT: No; family not available DIAGNOSIS: Nightmare Disorder PTSD, per medical record SUICIDE RISK ASSESSMENT: Acute intermediate Chronic intermediate Risk factors: suicidal behaviors, limited social support, PTSD, sleep issues. Protective Factors: engaged with treatment, school and clinicals, no access for firearms, enjoyable activities. Clinician judgement of risk: Acute intermediate Chronic intermediate IDENTIFIED PROBLEMS: Nightmares STRENGTHS: Motivated, think things can get better and work on that process. BARRIERS: Depression and feeling of self-worthlessness. GOAL #1: Address nightmares. INTERVENTION(S)/OBJECTIVE METHODS TO ACCOMPLISH GOAL #1: 1. Powderly will learn about nightmares and their impact. 2. Powderly will learn information about imagery and write her own pleasant imagery scene. 3. Powderly will practice her imagery scene for at least 10 minutes twice per day. 4. will rescript her nightmare and practice imagery of the new dream for at least 10 minutes twice per day. 5. Observe for decrease in nightmares and a decrease in the intensity of nightmares. Individual Psychotherapy with: Darell Dan PsyD The therapist will assess symptoms at each visit and provide psychoeducation regarding diagnoses and specific interventional strategies. The agrees to ask questions if they have concerns or do not fully understand content or expectations of therapy. Powderly will regularly attend appointments and complete agreed upon out-of- session assignments. The frequency of individual appointments will be reassessed by the provider and with each appointment and documented in the progress note. Clinician will provide information regarding available [place] MH treatment options. Overall MH treatment needs will be periodically assessed at visits. Powderly will be encouraged to involve supportive people (e.g., family/friends) in their treatment as applicable. will contact provider as needed for nonemergent MH concerns between appointments; responsible staff will return contact to in timely manner. will use emergency MH options as agreed upon with provider (911, Emergency Department, [facility] Crisis [facility]). Different evidence-based treatment options were considered and discussed with as part of current treatment planning. Psychiatric Evaluation & Medication Management with: Dr. Alonso PROGRESS TOWARD GOAL #1 WILL BE MEASURED BY: self-report, provider(s) observations in progress notes, medication refill history, regular attendance at MH appointments/groups, completion of [id number] assignments, and completion of measurement scale(s). DATE OF NEXT TREATMENT PLAN REVIEW: Mar /lilia/ DARELL DAN PsyD, STAFF PSYCHOLOGIST Signed: 04/09/2024 13:55 Receipt Acknowledged By: 04/09/2024 15:27 /es/ TROY Grace [employer] 04/10/2024 17:59 /es/ Triny Alonso MD Psychiatrist DARELL DAN [facility] Apr 09, 2024 01:04 PM SUICIDE PREVENTION RISK ASSESSMENT SCREENING NOTE: LOCAL TITLE: [place] SCREENING NOTE STANDARD TITLE: SUICIDE PREVENTION RISK ASSESSMENT SCREENING NOT DATE OF NOTE: APR 09, 2024@13:04 ENTRY DATE: APR 09, 2024@13:04:26 AUTHOR: DARELL DAN EXP COSIGNER: URGENCY: STATUS: COMPLETED C-SSRS Screening [place]-Suicide Severity Rating Scale (C-SSRS Screener) 1. Over [...] within the past 3 months? No /lilia/ DARELL DAN PsyD, LP STAFF PSYCHOLOGIST Signed: 04/09/2024 13:55 DARELL DAN [facility] Apr 09, 2024 01:03 PM MENTAL HEALTH NOTE : LOCAL TITLE: MH PROGRESS NOTE STANDARD TITLE: MENTAL HEALTH NOTE DATE OF NOTE: APR 09, 2024@13:03 ENTRY DATE: APR 09, 2024@13:03:45 AUTHOR: DARELL DAN EXP COSIGNER: URGENCY: STATUS: COMPLETED MH PROGRESS NOTE Has ADDENDA IDENTIFYING INFORMATION: Powderly is a 43-year-old, service connected, female. She was seen for 45 minutes for an initial therapy session with play writer via [facility]. INFORMED CONSENT: Prior to taking part in the appointment, play writer and reviewed the limits of confidentiality and was offered a copy. Powderly was provided opportunity to ask questions. The Powderly verbalized understanding of the limits and consented to participate in this appointment. Informed consent for treatment and limits and benefits of treatment were reviewed with patient and they indicated understanding and agreement. Visit conducted by synchronous telehealth. Powderly verbal consent obtained. Location/emergency number confirmed. Environment surveyed and all participants identified. Virtual conference room locked. SESSION FOCUS: This was session one of Imagery Rehearsal Therapy (IRT). Topics discussed included: introduction to IRT and facts about nightmares. A review of Nita's nightmares was completed. Powderly reported that her nightmares started nine months ago with an increase three months ago. She said on average she has five per week. rated the level of distress related to her most frequent nightmare as an 8 (on a scale from 1 to 10 where 1 is not distressing at all and 10 is extremely distressing). She said the nightmare changes in intensity. identified the following triggers that she believes contributes to her nightmares: ruminating on an event from the past, when anxiety is worse. She said she has the following body movements and/or vocalizations during her nightmares: screaming, yelling. The nightmare log was introduced and agreed to complete the log for next session. The Powderly indicated readiness to learn for the education [...] were no indications of audio/visual hallucinations. RISK INFORMATION (see [place] Screening Note by play writer from today): Powderly reported most recent suicidal ideation was yesterday, without plan or intent. She said she typically has SI about once day week. She denied history of homicidal ideation. Risk factors for suicide include: history of suicidal behavior, limited social support, PTSD, sleep issues. Protective factors include: engaged with treatment, school and clinicals, no access for firearms, enjoyable activities. Instructions for emergent care were reviewed with the Powderly; specifically, she was informed she could contact the 10/02 [facility] Crisis Hotline, whose number was provided; report to the appropriate ER for after-hours emergent care; and/or she could call 911 in the case of an imminent emergency. Risk Determination: Acute: Low, Chronic: Low. DIAGNOSTIC IMPRESSION: Nightmare Disorder (ICD-10-CM F51.5) PTSD, per medical record PLAN: Powderly is scheduled with play writer for a follow-up individual therapy session on 04/20/24 at 1pm. Her primary therapist is FRANCESCA Trevino, and she is followed by Dr. Alonso for psychiatry. /lilia/ DARELL DAN PsyD, LP STAFF PSYCHOLOGIST Signed: 04/09/2024 13:55 04/09/2024 ADDENDUM STATUS: COMPLETED Care provided: Follow up care covered under the COMPACT Act of 2019 Section 201. Supporting clinical documentation: Assessed for suicidal ideation, including use of the [place] Screening. /sandra DAN PsyD, LP STAFF PSYCHOLOGIST Signed: 04/09/2024 13:57 DARELL DAN [facility]
--- OUTSIDE RECORDS SUMMARY | 2024-05-04 07:56 | XMS_ITS | Encounter Summary ---
Author Name [facility] [place] Organization [place] Address [address] [place] [address] Care Team Providers Care Clearance Representative Name Role Phone EMIR GRACIA Primary Care Provider Unavailabl e Selected Encounter This section includes the information on record at [place] for the Encounter. Date/Time Encounter Type Encounter Description Reason Provider Source Apr 19, 2024 10:44 AM BREATHING CAPACITY TEST PULMONARY FUNCTION ICD-10-CM Z13.83 Encounter for screening for respiratory disorder ROSALIA NAVARRO IHLorie Encounter Template Text not used by [place] Assessments - Encounter Diagnoses This section includes the primary and secondary diagnoses documented for the Encounter. Date/Time Primary/Secondary Diagnosis Diagnosis Name Provider Source Apr 19, 2024 10:46 AM PRIMARY Encounter for screening for respiratory disorder ROSALIA NAVARRO [facility] Plan of Treatment: Future Appointments (+ 6 months) and Future Tests (+/- 45 days) The Plan of Treatment section includes future care activities for the patient from all [place] treatmentfacilities. This section includes future appointments and future orders which are active, pending or scheduled. Future Appointments This section includes appointments that were scheduled to occur 6 months from the date of the Encounter, up to a maximum of 20 appointments. The data comes from all [place] treatment facilities. Appointment Date/Time Appointment Type Appointme nt Facility Name Apr 20, 2024 01:00 PM AMBULATORY - PSYCHIATRY TW IN [facility] Apr 26, 2024 09:30 AM [facility]ORY [facility] Apr 27, 2024 01:00 PM AMBULATORY - PSYCHIATRY TW [facility] Apr 28, 2024 01:00 PM [facility] May 05, 2024 05:00 PM [place]ORY - [place]ONE [place] [facility] May 11, 2024 09:00 AM [facility] May 11, 2024 01:00 PM AMBULATORY - PSYCHIATRY TW [facility] May 18, 2024 11:00 AM AMBULATORY - PSYCHIATRY TW IN [facility] May 18, 2024 01:00 PM AM[place]UL[place]ORY - [place]ICINE [place] [facility] May 24, 2024 08:30 AM [facility] Active, Pending, and Scheduled Orders This section includes a listing of several types of active, pending, and scheduled orders, including clinic medications orders, diagnostic test orders, procedure orders and consult orders; where the start date of the order is 45 days before the date of the Encounter or 45 days after the date of theEncounter. The data comes from all [place] treatment facilities. Test Date/Time Test Type Test Details Facility Name Apr 19, 2024 09:46 AM Consult Order CARDIAC EC HO OUTPT-ALL SITES [employer] [facility] [place] [facility] Apr 19, 2024 10:08 AM Consult Order CARDIAC EC HO-SPECIAL PROCEDURE [employer] [facility] [place] [facility] Apr 19, 2024 10:47 AM Consult Order COMMUNITY CARE-NUCLEAR MEDICINE [employer] Professional[facility] Lab Results: +/- 30 days of the encounter This section includes the Chemistry and Hematology Lab Results on record with [place] for the patient. Radiology Reports and Pathology Reports are provided separately, in subsequent sections. Lab Results This section contains the Chemistry/Hematology Results that were resulted 30 days before or 30 daysafter the date of the Encounter. Date/Time Source Result Type Result - Unit Interpretation Reference Range Comment Apr 19, 2024 10:21 AM [facility] HEMOGLOBIN A1C Specimen Type: BLOOD Comment: Values [...] Apr 19, 2024 09:46 AM Reporting Lab: [facility] [place] [id number] Performing Lab: [facility] [place] [address] HEMOGLOBIN A1C 4.9 4.0-6.0 Apr 19, 2024 10:21 AM [facility] [place] [facility] TSH W/REFLEX TO FREE T4 Specimen Type: PLASMA Comment: Elevated triglyceride result from a non-fasting specimen should be interpreted with caution. A fasting panel is recommended for accurate triglycerides when trigs are >200 from a non-fasting specimen. Ordering Provider: EMIR GRACIA Report Released Date/Time: Apr 19, 2024 09:46 AM Reporting Lab: [facility] [place] [address] Performing Lab: [facility] [place] [address] TSH 0.69 u[IU]/mL 0.35-4.94 Apr 19, 2024 10:21 AM Polyplus-transfection LIPID PANEL,NON-FASTING Specimen Type: PLASMA Comment: Elevated triglyceride result from a non-fasting specimen should be interpreted with caution. A fasting panel is recommended for accurate triglycerides when trigs are >200 from a non-fasting specimen. Ordering Provider: EMIR GRACIA Report Released Date/Time: Apr 19, 2024 09:46 AM Reporting Lab: [facility] [place] [address] Performing Lab: [facility] [place] [address] CHOLESTEROL 263 mg/dL H <199 .HDL 38 mg/dL L >50 LDL CALCULATION 151 mg/dL H <99 VLDL CALCULATION 74 mg/dL H <29 NON HDL CHOLESTEROL 225 mg/dL H <129 TRIG(NON FASTING) 368 mg/dL H <149 Apr 19, 2024 10:21 AM [facility] [place] [facility] ANTI-HEP C(EIA) Specimen Type: SERUM No comment entered. Ordering Provider: EMIR GRACIA Report Released Date/Time: Apr 19, 2024 10:00 AM Reporting Lab: [facility] [place] [address] Performing Lab: [facility] [place] [address] ANTI-HEP C(EIA) NEGATIVE NEGATIVE Apr 19, 2024 10:21 AM [facility] [place] [facility] COMPREHENSIVE METABOLIC PANEL+MG Specimen Type: PLASMA Comment: Elevated triglyceride result from a non-fasting specimen should be interpreted with caution. A fasting panel is recommended for accurate triglycerides when trigs are >200 from a non-fasting specimen. Ordering Provider: EMIR GRACIA Report Released Date/Time: Apr 19, 2024 09:46 AM Reporting Lab: [facility] [place] [address] Performing Lab: [facility] [place] [address] CREATININE 1.0 mg/dL 0.5-1.0 UREA NITROGEN 10 [...] 71 >60 Apr 19, 2024 10:21 AM [facility] [place] [facility] CBC Specimen Type: BLOOD No comment entered. Ordering Provider: EMIR GRACIA Report Released Date/Time: Apr 19, 2024 09:46 AM Reporting Lab: [facility] [place] [address] Performing Lab: [facility] [place] [address] WBC 5.5 4.0-11.0 RBC 4.74 4.00-5.40 HGB 13.4 g/dL 11.5-16 HCT 39.7 34.5-48 MCV 83.8 fL 80-100 MCH 28.3 pg 27-33 MCHC 33.8 g/dL 32.0-37.5 PLT 370 150-400 MPV 9.8 fL 9.1-13.0 RDW 12.0 11.5-14.5 Vital Signs: All taken on the encounter date This section contains inpatient and outpatient Vital Signs collected on the date of the Encounter. Date/Time Temperature Pulse Blood Pressure Respiratory Rate SP02 Pain Height Weight Body Mass Index Source Apr 19, 2024 09:19 AM 97.8 95 130/84 16 97 2 66 224.8 36 [facility] Social History: Smoking Status (Most current) and Tobacco Use (All prior to encounter date) This section includes the most current, and the historical, smoking and tobacco- related health factors from the [place] facility where the Encounter took place. Current Smoking Status This section includes the most current smoking, or tobacco-related health factor, from the [place] facility where the Encounter took place. Date/Time Current Smoking Status Comment Facil ity Mar 27, 2023 09:00 AM [place]-TOBACCO FORMER USER [facility] [place] [facility] Tobacco Use History This section includes a history of the smoking, or tobacco-related health factors, that were collected on or before the date of the Encounter. The data comes from the [place] facility where the Encounter took place. Date/Time Smoking Status/Tobacco Use Comment F acility Mar 27, 2023 09:00 AM VA-TOBACCO QUIT 5 TO < 15 YRS [facility] [place] [facility] Advance Directives: All historical and current Section Date Range: From patient's date of to the date document was created. This section includes ALL of a patient's completed or amended [place] Advance and Rescinded Directives. The entries below indicate that a directive exists for the patient, but an actual copy is not included with this document. The data comes from all [place] facilities. Date Advance Directives Provider Source Jan 05, 2024 ADVANCE DIRECTIVE DISCUSSION SHAHID HURTADO [facility] Radiology Reports: +/- 30 days of [...] the Encounter. The data comes from all [place] treatment facilities. Date/Time Radiology Report Provider Source Apr 19, 2024 09:48 AM CHEST 2 VIEWS PA A ND LAT: SCHOEPHOERSTER,REBEC [id number] -[id number] F Exm Date: APR 19, 2024@09:48 Req Phys: EMIR GRACIA Pat Loc: [facility] PACT DIAMONDS (Req'g Loc) Img Loc: [facility] RADIOLOGY Service: Unknown Screen: [place] [address] (Case [id number] COMPLETE) CHEST 2 VIEWS PA AND LAT (RAD Detailed) CPT:02005 Reason for Study: chest pain Clinical History: [place]anco IS NOT under investigation for COVID-19 or is COVID-19 negative chest pain Responsible provider name and phone number to notify for critical findings if other than user placing the order and pager listed below: User placing orders pager: LAST CREATININE 1.0 (12/21/23) Report Status: Verified Date Reported: APR 19, 2024 Date Verified: APR 19, 2024 Corduroy Brusher Operator E-Sig:/ES/PIA VARGAS MD, FACR, CCD Report: EXAMINATION: CHEST 2 VIEWS PA AND LAT 04/19/2024 9:48 AM INDICATION: chest pain COMPARISON: None. FINDINGS: The cardiac silhouette and pulmonary vasculature are within normal limits. The lungs appear clear of infiltrate. No pleural fluid identified. Impression: No active pulmonary disease visualized. Primary Interpreting Staff: PIA VARGAS MD, FACR, STAFF RADIOLOGIST (Corduroy Brusher Operator) /PIA OLGUIN [facility] Encounter Notes: All associated encounter notes This section contains the clinical notes associated to the Encounter. Date/Time Encounter Note(s) Provider Source Apr 19, 2024 10:44 AM PRIMARY CARE NURSI ARTURO NOTE: LOCAL TITLE: [facility] NURSING PROGRESS NOTE STANDARD TITLE: PRIMARY CARE NURSING NOTE DATE OF NOTE: APR 19, 2024@10:44 ENTRY DATE: APR 19, 2024@10:44:30 AUTHOR: ROSALIA MUJICA EXP COSIGNER: URGENCY: STATUS: COMPLETED Procedure: PFT Spirometry Spirometry -Contraindications (if any positive do not perform PFT and notify ordering provider) -Coughed up blood (1/4 cup at once) in the last week: No -Has active tuberculosis: No -In the last month patient has had: A detached retina: No Cataract surgery: No A collapsed lung: No Thoracic or abdominal surgery: No Tooth extractions: No -Criteria that may affect test results: Has significant pain that could limit this test: No Wearing dentures: No In the last 24 hours, had used nitroglycerin for chest pain more frequently than usual: No Taking any inhaled medications: Priscila /lilia/ ROSALIA MUJICA MA, TCT TCT DEEPIKA MONREALOC Signed: 04/19/2024 10:46 [facility]IA MUJICA [facility]
--- OUTSIDE RECORDS SUMMARY | 2024-05-04 07:56 | XMS_ITS | Encounter Summary ---
Author Name [facility] [place] Organization [place] Address [address] [place] [address] Care Team Providers Care Service Attendant Cafeteria Name Role Phone EMIR GRACIA Primary Care Provider Unavailabl e Selected Encounter This section includes the information on record at [place] for the Encounter. Date/Time Encounter Type Encounter Description Reason Provider Source Apr 12, 2024 09:30 AM PSYTX W PT 45 MINUTES [facility] - IND ICD-10-CM F43.12 Post-traumatic stress disorder, chronic JESSICANIMAOliver Singer Lorie Encounter Template Text not used by [place] Assessments - Encounter Diagnoses This section includes the primary and secondary diagnoses documented for the Encounter. Date/Time Primary/Secondary Diagnosis Diagnosis Name Provider Source Apr 12, 2024 11:59 AM PRIMARY Post-traumatic stress disorder, chronic [facility] Apr 12, 2024 11:59 AM SECONDARY Major depressive disorder, recurrent, mild [facility] Apr 12, 2024 11:59 AM SECONDARY Suicidal ideations NIMA LOPEZ [facility] Plan of Treatment: [...] 20 appointments. The data comes from all [facility]. Appointment Date/Time Appointment Type Appointme nt Facility Name Apr 19, 2024 09:00 AM AMBULATORY - MEDICINE [place] Apr 20, 2024 01:00 PM AMBULATORY - PSYCHIATRY TW IN [facility] Apr 26, 2024 09:30 AM [place]ORY - [place]ATRY [place] [facility] Apr 27, 2024 01:00 PM AMBULATORY - PSYCHIATRY TW IN [facility] Apr 28, 2024 01:00 PM AMBULATORY - [place]IATRY [place] [facility] May 05, 2024 05:00 PM AM[place]UL[place]ORY - NONE [place] [facility] May 11, 2024 09:00 AM AM[place]UL[place]IATRY [place] [facility] May 11, 2024 01:00 PM AMBULATORY - PSYCHIATRY TW IN [facility] May 18, 2024 11:00 AM AMBULATORY - PSYCHIATRY TW IN [facility] May 18, 2024 01:00 PM [place]IC[place] [facility] May 24, 2024 08:30 AM [facility] [place] [facility] Active, Pending, and Scheduled Orders This section includes a listing of several types of active, pending, and scheduled orders, including clinic medications orders, diagnostic test orders, procedure orders and consult orders; where the start date of the order is 45 days before the date of the Encounter or 45 days after the date of theEncounter. The data comes from all [facility]. Test Date/Time Test Type Test Details Facility Name Apr 19, 2024 09:46 AM Consult Order CARDIAC EC HO OUTPT-ALL SITES Cons [place] Settler[facility] [place] [facility] Apr 19, 2024 10:08 AM Consult Order CARDIAC EC HO-SPECIAL PROCEDURE [facility] [place] [facility] Apr 19, 2024 10:47 AM Consult Order COMMUNITY CARE-NUCLEAR MEDICINE Cons [place] Settler's Choice [facility] Lab Results: +/- 30 days of the [...] Range Comment Apr 19, 2024 10:21 AM [facility] HEMOGLOBIN A1C Specimen Type: BLOOD Comment: Values [...] Apr 19, 2024 09:46 AM Reporting Lab: [facility] [id number] Performing Lab: [facility] [address] HEMOGLOBIN A1C 4.9 4.0-6.0 Apr 19, 2024 10:21 AM [facility] TSH W/REFLEX TO FREE T4 Specimen Type: PLASMA Comment: Elevated triglyceride result from a non-fasting specimen should be interpreted with caution. A fasting panel is recommended for accurate triglycerides when trigs are >200 from a non-fasting specimen. Ordering Provider: EMIR GRACIA Report Released Date/Time: Apr 19, 2024 09:46 AM Reporting Lab: [facility] [phone] Performing Lab: [facility] [address] TSH 0.69 u[IU]/mL 0.35-4.94 Apr 19, 2024 10:21 AM [facility] ANTI-HEP C(EIA) Specimen Type: SERUM No comment entered. Ordering Provider: EMIR GRACIA Report Released Date/Time: Apr 19, 2024 10:00 AM Reporting Lab: [facility] [address] Performing Lab: [facility] [address] ANTI-HEP C(EIA) NEGATIVE NEGATIVE Apr 19, 2024 10:21 AM [facility] COMPREHENSIVE METABOLIC PANEL+MG Specimen Type: PLASMA Comment: Elevated triglyceride result from a non-fasting specimen should be interpreted with caution. A fasting panel is recommended for accurate triglycerides when trigs are >200 from a non-fasting specimen. Ordering Provider: EMIR GRACIA Report Released Date/Time: Apr 19, 2024 09:46 AM Reporting Lab: [facility] [phone] Performing Lab: [facility] [phone] CREATININE 1.0 mg/dL 0.5-1.0 UREA NITROGEN 10 [...] 71 >60 Apr 19, 2024 10:21 AM [place] [facility] CBC Specimen Type: BLOOD No comment entered. Ordering Provider: EMIR GRACIA Report Released Date/Time: Apr 19, 2024 09:46 AM Reporting Lab: [facility] [phone] Performing Lab: [facility] [address] WBC 5.5 4.0-11.0 RBC 4.74 4.00-5.40 HGB 13.4 g/dL 11.5-16 HCT 39.7 34.5-48 MCV 83.8 fL 80-100 MCH 28.3 pg 27-33 MCHC 33.8 g/dL 32.0-37.5 PLT 370 150-400 MPV 9.8 fL 9.1-13.0 RDW 12.0 11.5-14.5 Apr 19, 2024 10:21 AM DEEPIKA MONREAL LIPID PANEL,NON-FASTING Specimen Type: PLASMA Comment: Elevated triglyceride result from a non-fasting specimen should be interpreted with caution. A fasting panel is recommended for accurate triglycerides when trigs are >200 from a non-fasting specimen. Ordering Provider: GRACIA,EMIR D Report Released Date/Time: Apr 19, 2024 09:46 AM Reporting Lab: [facility] [address] Performing Lab: [facility] [address] CHOLESTEROL 263 mg/dL H <199 .HDL 38 mg/dL L >50 LDL CALCULATION 151 mg/dL H <99 VLDL CALCULATION 74 mg/dL H <29 NON HDL CHOLESTEROL 225 mg/dL H <129 TRIG(NON FASTING) 368 mg/dL H <149 Social History: Smoking Status (Most [...] Facil ity Mar 27, 2023 09:00 AM [place]-TOBACCO FORMER USER [place] [facility] Tobacco Use History This section includes a history of the smoking, or tobacco-related health factors, that were collected on or before the date of the Encounter. The data comes from the [place] facility where the Encounter took place. Date/Time Smoking Status/Tobacco Use Comment F acility Mar 27, 2023 09:00 AM [place]-TOBACCO QUIT 5 TO < 15 YRS [place] [facility] Advance Directives: All [...] 05, 2024 ADVANCE DIRECTIVE DISCUSSION SHAHID HURTADO [facility] Radiology Reports: +/- 30 days of the [...] the Encounter. The data comes from all [place] treatment facilities. Date/Time Radiology Report Provider Source Apr 19, 2024 09:48 AM CHEST 2 VIEWS PA A ND LAT: BILLIE ZAVALA [id number] -[id number] F Exm Date: APR 19, 2024@09:48 Req Phys: EMIR GRACIA Pat Loc: [place] PACT DIAMONDS (Req'g Loc) Img Loc: [facility] RADIOLOG[facility] Service: Unknown Screen: [place] [address] (Case 324 COMPLETE) CHEST 2 VIEWS PA AND LAT (RAD Detailed) CPT:38628 Reason for Study: chest pain Clinical History: Gem IS NOT under investigation for COVID-19 or is COVID-19 negative chest pain Responsible provider name and phone number to notify for critical findings if other than user placing the order and pager listed below: User placing orders pager: LAST CREATININE 1.0 (12/21/23) Report Status: Verified Date Reported: APR 19, 2024 Date Verified: APR 19, 2024 Edger Runner E-Sig:/ES/PIA VARGAS MD, FACR, CCD Report: EXAMINATION: CHEST 2 VIEWS PA AND LAT 04/19/2024 9:48 AM INDICATION: chest pain COMPARISON: None. FINDINGS: The cardiac silhouette and pulmonary vasculature are within normal limits. The lungs appear clear of infiltrate. No pleural fluid identified. Impression: No active pulmonary disease visualized. Primary Interpreting Staff: PIA VARGAS MD, FACR, STAFF RADIOLOGIST (Edger Runner) /PIA OLGUIN [facility] Encounter Notes: All associated encounter notes This section contains the clinical notes associated to the Encounter. Date/Time Encounter Note(s) Provider Source Apr 12, 2024 11:57 AM MENTAL HEALTH NOTE : LOCAL TITLE: MH PROGRESS NOTE STANDARD TITLE: MENTAL HEALTH NOTE DATE OF NOTE: APR 12, 2024@11:57 ENTRY DATE: APR 12, 2024@11:57:49 AUTHOR: MILI LOPEZ EXP COSIGNER: URGENCY: STATUS: COMPLETED OUTPATIENT MENTAL HEALTH PROGRESS NOTE Clinic: [facility] Date: 04/12/2024 Length of Session: 50 minutes Method of Interface: VVC Session #34 Author: MERNA Trevino, [facility] Visit conducted by synchronous telehealth. verbal consent obtained. Location/emergency number confirmed. Environment surveyed and all participants identified. Virtual conference room locked. Subjective: Met with Quintin Claudia for individual therapy session. She reported that she has been feeling more depressed in the past week and having thoughts of worthlessness, noting that she feels like she is back where she started. Discussed the many changes happening and focused on the things she has done well, reinforcing the positive work she has done for herself over the past couple of months. We talked about how she can continue to use her skills around attainable goals and challenging unhelpful thinking. She acknowledged that she got out her PPH book and has been using the skills from there to support her mood where she can. She mentioned wanting a lockbox for her medication to reduce risk and Mechanical Engineering Teacher offered to get her a lockbox which she gratefully accepted. She shared that she was invited to a family barbecue this weekend to see a beloved uncle and she would like to go, but is nervous. She identified several skills she can use and has thought about how she can advocate for her boundaries should the need arise. Reinforced her skillful work and encouraged her to take small steps to reach her daily goals. Objective: Appearance: Well-groomed, appropriate eye contact Speech: Regular rate/rhythm/volume Motor: Normal Spontaneous movement Mood: Euthymic, improved throughout session Affect: Appropriate, full range, congruent with mood Thought Content: No Suicidal Ideation/No Homicidal Ideation No Delusions No Hallucinations Thought Process: Linear/Logical/Goal Oriented Judgement: Good Insight: Good Impulse Control: Good Oriented to Person/Place/Time/Reason for Appointment Assessment: was engaged and receptive throughout. She was well regulated today and was future-focused. Risk factors include history of SI/suicide attempt, insomnia, relationship issues, race. Protective factors include responsibility to others, children in the home, hope for the future, desire to live, help seeking behaviors, positive therapeutic alliance. 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 Care provided: Follow up care covered under the COMPACT Act of 2019 Section 201. Supporting clinical documentation: See above for detailed information. /es/ TROY Grace Agricultural Lender Signed: 04/12/2024 12:00 MILI LOPEZ OC
--- OUTSIDE RECORDS SUMMARY | 2024-05-04 07:56 | XMS_ITS ---
Author Name [place] Address [address] [place] [address] Care Team Providers Care [employer] Name Role Phone EMIR GRACIA Primary Care Provider Unavailabl e Selected Encounter This section includes the information on record at [place] for the Encounter. Date/Time Encounter Type Encounter Description Reason Provider Source Apr 05, 2024 08:30 AM CRISIS INTERVEN [facility] - IND ICD-10-CM F43.12 Post-traumatic stress disorder, chronic NIMA LOPEZ Lorie Encounter Template Text not used by [place] Assessments - Encounter Diagnoses This section includes the primary and secondary diagnoses documented for the Encounter. Date/Time Primary/Secondary Diagnosis Diagnosis Name Provider Source Apr 05, 2024 09:47 AM PRIMARY Post-traumatic stress disorder, chronic NIMA LOPEZ CB Apr 05, 2024 09:47 AM SECONDARY Major depressive disorder, recurrent, unspecified NIMA LOPEZ [facility] Apr 05, 2024 09:47 AM SECONDARY Suicidal ideations NIMA LOPEZ [facility] Plan of Treatment: Future Appointments (+ [...] 20 appointments. The data comes from all [facility]. Appointment Date/Time Appointment Type Appointme nt Facility Name Apr 09, 2024 01:00 PM AMBULATORY - PSYCHIATRY TW IN [facility] Apr 09, 2024 02:30 PM AMBULATORY - PSYCHIATRY [facility] Apr 12, 2024 09:30 AM AMBULATORY - PSYCHIATRY [place] [facility] Apr 19, 2024 09:00 AM AMBULATORY - MEDICINE LEEANN OPEE [facility] Apr 20, 2024 01:00 PM AMBULATORY - PSYCHIATRY TW IN [facility] Apr 26, 2024 09:30 AM AMBULATORY - PSYCHIATRY [place] [facility] Apr 27, 2024 01:00 PM AMBULATORY - PSYCHIATRY TW IN [facility] Apr 28, 2024 01:00 PM AMBULATORY - PSYCHIATRY [place] [facility] May 05, 2024 05:00 PM AMBULATORY - NONE [facility] May 11, 2024 09:00 AM AMBULATORY - PSYCHIATRY [place] [facility] May 11, 2024 01:00 PM AMBULATORY - PSYCHIATRY TW IN [facility] May 18, 2024 11:00 AM AMBULATORY - PSYCHIATRY TW IN [facility] May 18, 2024 01:00 PM AMBULATORY - MEDICINE [facility] May 24, 2024 08:30 AM AMBULATORY - PSYCHIATRY [facility] Active, Pending, and Scheduled Orders [...] from all [facility]. Test Date/Time Test Type Test Details Facility Name Apr 19, 2024 09:46 AM Consult Order CARDIAC EC HO OUTPT-ALL SITES Cons Complementary Health Therapists's Choice [facility] Apr 19, 2024 10:08 AM Consult Order CARDIAC EC HO-SPECIAL PROCEDURE Cons Complementary Health Therapists's Choice [facility] Apr 19, 2024 10:47 AM Consult Order COMMUNITY CARE-NUCLEAR MEDICINE Cons Complementary Health Therapists's Choice [facility] Lab Results: +/- 30 days of the [...] Range Comment Apr 19, 2024 10:21 AM [facility] [employer] HEMOGLOBIN A1C Specimen Type: BLOOD Comment: Values [...] Apr 19, 2024 09:46 AM Reporting Lab: [facility] [id number] Performing Lab: [facility] [id number] HEMOGLOBIN A1C 4.9 4.0-6.0 Apr 19, 2024 10:21 AM [facility] TSH W/REFLEX TO FREE T4 Specimen Type: PLASMA Comment: Elevated triglyceride result from a non-fasting specimen should be interpreted with caution. A fasting panel is recommended for accurate triglycerides when trigs are >200 from a non-fasting specimen. Ordering Provider: EMIR GRACIA Report Released Date/Time: Apr 19, 2024 09:46 AM Reporting Lab: [facility] [phone] Performing Lab: [facility] [id number] TSH 0.69 u[IU]/mL 0.35-4.94 Apr 19, 2024 10:21 AM [facility] LIPID PANEL,NON-FASTING Specimen Type: PLASMA Comment: Elevated triglyceride result from a non-fasting specimen should be interpreted with caution. A fasting panel is recommended for accurate triglycerides when trigs are >200 from a non-fasting specimen. Ordering Provider: EMIR GRAICA Report Released Date/Time: Apr 19, 2024 09:46 AM Reporting Lab: [facility] [id number] Performing Lab: [facility] [id number] CHOLESTEROL 263 mg/dL H <199 .HDL 38 mg/dL L >50 LDL CALCULATION 151 mg/dL H <99 VLDL CALCULATION 74 mg/dL H <29 NON HDL CHOLESTEROL 225 mg/dL H <129 TRIG(NON FASTING) 368 mg/dL H <149 Apr 19, 2024 10:21 AM [employer] ANTI-HEP C(EIA) Specimen Type: SERUM No comment entered. Ordering Provider: EMIR GRACIA Report Released Date/Time: Apr 19, 2024 10:00 AM Reporting Lab: [facility] [phone] Performing Lab: [facility] [phone] ANTI-HEP C(EIA) NEGATIVE NEGATIVE Apr 19, 2024 10:21 AM [employer] COMPREHENSIVE METABOLIC PANEL+MG Specimen Type: PLASMA Comment: Elevated triglyceride result from a non-fasting specimen should be interpreted with caution. A fasting panel is recommended for accurate triglycerides when trigs are >200 from a non-fasting specimen. Ordering Provider: EMIR GRACIA Report Released Date/Time: Apr 19, 2024 09:46 AM Reporting Lab: [facility] [id number] Performing Lab: [facility] [id number] CREATININE 1.0 mg/dL 0.5-1.0 UREA NITROGEN 10 [...] 71 >60 Apr 19, 2024 10:21 AM [facility] [email or web address] CBC Specimen Type: BLOOD No comment entered. Ordering Provider: EMIR GRACIA Report Released Date/Time: Apr 19, 2024 09:46 AM Reporting Lab: [facility] [id number] Performing Lab: [facility] [id number] WBC 5.5 4.0-11.0 RBC 4.74 4.00-5.40 HGB [...] ity Mar 27, 2023 09:00 AM [place]-TOBAC[place] FORMER USER [facility] Tobacco Use History This section includes a history of the smoking, or tobacco-related health factors, that were collected on or before the date of the Encounter. The data comes from the [place] facility where the Encounter took place. Date/Time Smoking Status/Tobacco Use Comment F acility Mar 27, 2023 09:00 AM [place]-TO[place]AC[place] QUIT 5 TO < 15 YRS [facility] Advance Directives: All historical and current Section [...] 05, 2024 ADVANCE DIRECTIVE DISCUSSION SHAHID HURTADO [facility] Radiology Reports: +/- 30 days [...] the Encounter. The data comes from all [place] treatment facilities. Date/Time Radiology Report Provider Source Apr 19, 2024 09:48 AM CHEST 2 VIEWS PA A ND LAT: BILLIE ZAVALA [id number] -[id number] F Exm Date: APR 19, 2024@09:48 Req Phys: EMIR GRACIA Loc: [facility] PACT DIAMONDS (Req'g Loc) Img Loc: [facility] RADIOLOGY Service: Unknown Screen: [place] [address] (Case [id number] COMPLETE) CHEST 2 VIEWS PA AND LAT (RAD Detailed) CPT:32436 Reason for Study: chest pain Clinical History: IS NOT under investigation for COVID-19 or is COVID-19 negative chest pain Responsible provider name and phone number to notify for critical findings if other than user placing the order and pager listed below: User placing orders pager: LAST CREATININE 1.0 (12/21/23) Report Status: Verified Date Reported: APR 19, 2024 Date Verified: APR 19, 2024 Architectural Job Captain E-Sig:/ES/PIA VARGAS MD, FACR, CCD Report: EXAMINATION: CHEST 2 VIEWS PA AND LAT 04/19/2024 9:48 AM INDICATION: chest pain COMPARISON: None. FINDINGS: The cardiac silhouette and pulmonary vasculature are within normal limits. The lungs appear clear of infiltrate. No pleural fluid identified. Impression: No active pulmonary disease visualized. Primary Interpreting Staff: PIA VARGAS MD, FACR, STAFF RADIOLOGIST (Architectural Job Captain) /PIA OLGUIN [facility] Encounter Notes: All associated encounter notes This section contains the clinical notes associated to the Encounter. Date/Time Encounter Note(s) Provider Source Apr 05, 2024 09:45 AM MENTAL HEALTH NOTE : LOCAL TITLE: MH PROGRESS NOTE STANDARD TITLE: MENTAL HEALTH NOTE DATE OF NOTE: APR 05, 2024@09:45 ENTRY DATE: APR 05, 2024@09:45:35 AUTHOR: MILI LOPEZ EXP COSIGNER: URGENCY: STATUS: COMPLETED MH PROGRESS NOTE Has ADDENDA OUTPATIENT MENTAL HEALTH PROGRESS NOTE Clinic: [place] [facility] Date: 04/05/2024 Length of Session: 50 minutes Method of Interface: [facility] Session #33 Author: MERNA Trevino LISW Visit conducted by synchronous telehealth. Bliss verbal consent obtained. Location/emergency number confirmed. Environment surveyed and all participants identified. Virtual conference room locked. Subjective: Met with Quintin Zavala for individual therapy session. She reported that sleep continues to be poor with nightmares approximately five nights per week. She is looking forward to IRT as medication has not been especially helpful. She shared wins from the past week, noting that she's been to the gym three times which was a goal and healthy connections with friends. She expressed frustration with the disability and workers comp systems and her efforts to depersonalize the processes. Introduced the QTIP concept and we talked about how to apply it with these very impersonal situations. She noted that she is beginning her mental health clinicals next month and has concerns about being on an inpatient unit again and potentially dealing with sex offenders. Reinforced the use of her container skills and we agreed to work on skill building with that in our next couple of sessions. Objective: Appearance: Well-groomed, appropriate eye contact Speech: Regular rate/rhythm/volume Motor: Normal Spontaneous movement Mood: Euthymic, tired Affect: Appropriate, full range, congruent with mood Thought Content: No Suicidal Ideation/No Homicidal Ideation No Delusions No Hallucinations Thought Process: Linear/Logical/Goal Oriented Judgement: Good Insight: Good Impulse Control: Good Oriented to Person/Place/Time/Reason for Appointment Assessment: Bliss was engaged and receptive throughout. She was well regulated today and was future-focused. She was tired again but was insightful. Risk factors include history of SI/suicide attempt, insomnia, relationship issues, race. Protective factors include responsibility to others, children in the home, hope for the future, desire to live, help seeking behaviors, positive therapeutic alliance. Current risk assessment: Low acute, Intermediate chronic Diagnostic Evaluation: Post Traumatic Stress Disorder, chronic; Major Depressive Disorder, recurrent Plan: RTC on 04/12/24, she asked about meeting every other week going forward and said that she felt it was appropriate to move to that schedule. /lilia/ TROY Grace Warp Picker Signed: 04/05/2024 09:48 04/05/2024 ADDENDUM STATUS: COMPLETED Care provided: Follow up care covered under the COMPACT Act of 2019 Section 201. Supporting clinical documentation: See above for further information. /lilia/ TROY Grace Warp Picker Signed: 04/05/2024 12:05 MILI LOPEZ [facility]
--- OUTSIDE RECORDS SUMMARY | 2024-05-04 07:56 | XMS_ITS ---
Author Name [place] Organization [place] Address [address] [place] [address] Care Team Providers Care Drafter Topographical Name Role Phone EMIR GRACIA Primary Care Provider Unavailabl e Selected Encounter This section includes the information on record at [place] for the Encounter. Date/Time Encounter Type Encounter Description Reason Provider Source Apr 19, 2024 09:00 AM OFFICE O/P EST HI 40 MIN PRIMARY CARE/MEDICINE ICD-10-CM F32.9 Major depressive disorder, single episode, unspecified EMIR GRACIA Lorie Encounter Template Text not used by [place] Assessments - Encounter Diagnoses This section includes the primary and secondary diagnoses documented for the Encounter. Date/Time Primary/Secondary Diagnosis Diagnosis Name Provider Source Apr 27, 2024 03:32 PM PRIMARY Major depressive disorder, single episode, unspecified EMIR GRACIA [facility] Apr 27, 2024 03:32 PM SECONDARY Encntr for general adult medical exam w/o abnormal findings EMIR GRACIA [facility] Apr 27, 2024 03:32 PM SECONDARY Generalized anxiety disorder EMIR GRACIA [facility] Apr 27, 2024 03:32 PM SECONDARY Other chronic pancreatitis EMIR GRACIA [facility] Apr 27, 2024 03:32 PM SECONDARY Post-traumatic stress disorder, chronic EMIR GRACIA [facility] Plan of Treatment: Future Appointments (+ 6 months) and Future Tests (+/- 45 days) The Plan of Treatment section includes future care activities for the patient from all [place] [facility] This section includes future appointments and future orders which are active, pending or scheduled. Future Appointments This section includes appointments that were scheduled to occur 6 months from the date of the Encounter, up to a maximum of 20 appointments. The data comes from all [facility]. Appointment Date/Time Appointment Type Appointme nt Facility Name Apr 20, 2024 01:00 PM AMBULATORY - PSYCHIATRY TW IN [facility] Apr 26, 2024 09:30 AM AMBULATORY - PSYCHIATRY [facility] Apr 27, 2024 01:00 PM AMBULATORY - PSYCHIATRY TW IN [facility] Apr 28, 2024 01:00 PM AMBULATORY - PSYCHIATRY [facility] May 05, 2024 05:00 PM AMBULATORY - NONE [facility] May 11, 2024 09:00 AM AMBULATORY - PSYCHIATRY [facility] May 11, 2024 01:00 PM AMBULATORY - PSYCHIATRY TW IN [facility] May 18, 2024 11:00 AM AMBULATORY - PSYCHIATRY TW IN [facility] May 18, 2024 01:00 PM AMBULATORY - MEDICINE [facility] May 24, 2024 08:30 AM AMBULATORY - PSYCHIATRY [place] [facility] Active, Pending, and Scheduled Orders This section includes a listing of several types of active, pending, and scheduled orders, including clinic medications orders, diagnostic test orders, procedure orders and consult orders; where the start date of the order is 45 days before the date of the Encounter or 45 days after the date of theEncounter. The data comes from all [facility]. Test Date/Time Test Type Test Details Facility Name Apr 19, 2024 09:46 AM Consult Order CARDIAC EC HO OUTPT-ALL SITES Cons Motor Vehicles Supervisor's Choice [facility] Apr 19, 2024 10:08 AM Consult Order CARDIAC EC HO-SPECIAL PROCEDURE Cons Motor Vehicles Supervisor's Choice [facility] Apr 19, 2024 10:47 AM Consult Order COMMUNITY CARE-NUCLEAR MEDICINE Cons Motor Vehicles Supervisor's Choice [facility] Lab Results: +/- 30 days of the [...] Range Comment Apr 19, 2024 10:21 AM [facility] HEMOGLOBIN A1C Specimen Type: BLOOD Comment: Values [...] Apr 19, 2024 09:46 AM Reporting Lab: [facility] [id number] Performing Lab: [facility] [id number] HEMOGLOBIN A1C 4.9 4.0-6.0 Apr 19, 2024 10:21 AM [facility] LIPID PANEL,NON-FASTING Specimen Type: PLASMA Comment: Elevated triglyceride result from a non-fasting specimen should be interpreted with caution. A fasting panel is recommended for accurate triglycerides when trigs are >200 from a non-fasting specimen. Ordering Provider: EMIR GRACIA Report Released Date/Time: Apr 19, 2024 09:46 AM Reporting Lab: [facility] [id number] Performing Lab: [facility] [address] CHOLESTEROL 263 mg/dL H <199 .HDL 38 mg/dL L >50 LDL CALCULATION 151 mg/dL H <99 VLDL CALCULATION 74 mg/dL H <29 NON HDL CHOLESTEROL 225 mg/dL H <129 TRIG(NON FASTING) 368 mg/dL H <149 Apr 19, 2024 10:21 AM [facility] TSH W/REFLEX TO FREE T4 Specimen Type: PLASMA Comment: Elevated triglyceride result from a non-fasting specimen should be interpreted with caution. A fasting panel is recommended for accurate triglycerides when trigs are >200 from a non-fasting specimen. Ordering Provider: EMIR GRACIA Report Released Date/Time: Apr 19, 2024 09:46 AM Reporting Lab: [facility] [id number] Performing Lab: [facility] [address] TSH 0.69 u[IU]/mL 0.35-4.94 Apr 19, 2024 10:21 AM [facility] ANTI-HEP C(EIA) Specimen Type: SERUM No comment entered. Ordering Provider: EMIR GRACIA Report Released Date/Time: Apr 19, 2024 10:00 AM Reporting Lab: [facility] [id number] Performing Lab: [facility] [address] ANTI-HEP C(EIA) NEGATIVE NEGATIVE Apr 19, 2024 10:21 AM [facility] COMPREHENSIVE METABOLIC PANEL+MG Specimen Type: PLASMA Comment: Elevated triglyceride result from a non-fasting specimen should be interpreted with caution. A fasting panel is recommended for accurate triglycerides when trigs are >200 from a non-fasting specimen. Ordering Provider: EMIR GRACIA Report Released Date/Time: Apr 19, 2024 09:46 AM Reporting Lab: [facility] [address] Performing Lab: [facility] [address] CREATININE 1.0 mg/dL 0.5-1.0 UREA NITROGEN 10 [...] 71 >60 Apr 19, 2024 10:21 AM [facility] CBC Specimen Type: BLOOD No comment entered. Ordering Provider: EMIR GRACIA Report Released Date/Time: Apr 19, 2024 09:46 AM Reporting Lab: [facility] [address] Performing Lab: [facility] [address] WBC 5.5 4.0-11.0 RBC 4.74 4.00-5.40 HGB [...] and tobacco- related health factors from the [place] facility where the Encounter took place. Current Smoking Status This section includes the most current smoking, or tobacco-related health factor, from the [place] facility where the Encounter took place. Date/Time Current Smoking Status Comment Facil ity Mar 27, 2023 09:00 AM [place]-TOBACCO FORMER USER [facility] Tobacco Use History This section includes a history of the smoking, or tobacco-related health factors, that were collected on or before the date of the Encounter. The data comes from the [place] facility where the Encounter took place. Date/Time Smoking Status/Tobacco Use Comment F acility Mar 27, 2023 09:00 AM [place]-TOBACCO QUIT 5 TO < 15 YRS [facility] Advance Directives: All historical and current Section Date Range: From patient's date of to the date document was created. This section includes ALL of a patient's completed or amended [place] Advance and Rescinded Directives. The entries below indicate that a directive exists for the patient, but an actual copy is not included with this document. The data comes from all [place] facilities. Date Advance Directives Provider Source Jan 05, 2024 ADVANCE DIRECTIVE DISCUSSION SHAHID HURTADO [facility] Radiology Reports: +/- 30 days of the [...] CHEST 2 VIEWS PA A ND LAT: LARSPHOEJESSBILLIE [id number] -[id number] F Exm Date: APR 19, 2024@09:48 Req Phys: EMIR GRACIA Loc: [facility] PACT DIAMONDS (Req'g Loc) Img Loc: [facility] RADIOLOGY Service: Unknown Screen: [place] [address] (Case [id number] COMPLETE) CHEST 2 VIEWS PA AND LAT (RAD Detailed) CPT:47265 Reason for Study: chest pain Clinical History: IS NOT under investigation for COVID-19 or is COVID-19 negative chest pain Responsible provider name and phone number to notify for critical findings if other than user placing the order and pager listed below: User placing orders pager: LAST CREATININE 1.0 (12/21/23) Report Status: Verified Date Reported: APR 19, 2024 Date Verified: APR 19, 2024 Payroll Clerk E-Sig:/ES/PIA VARGAS MD, FACR, CCD Report: EXAMINATION: CHEST 2 VIEWS PA AND LAT 04/19/2024 9:48 AM INDICATION: chest pain COMPARISON: None. FINDINGS: The cardiac silhouette and pulmonary vasculature are within normal limits. The lungs appear clear of infiltrate. No pleural fluid identified. Impression: No active pulmonary disease visualized. Primary Interpreting Staff: PIA VARGAS MD, FACR, STAFF RADIOLOGIST (Payroll Clerk) /PIA OLGUIN [facility] Encounter Notes: All associated encounter notes This section contains the clinical notes associated to the Encounter. Date/Time Encounter Note(s) Provider Source Apr 19, 2024 09:20 AM PRIMARY CARE NURSI NG NOTE: LOCAL TITLE: [facility] NURSING PROGRESS NOTE STANDARD TITLE: PRIMARY CARE NURSING NOTE DATE OF NOTE: APR 19, 2024@09:20 ENTRY DATE: APR 19, 2024@09:20:56 AUTHOR: ROSALIA MUJICA EXP COSIGNER: URGENCY: STATUS: COMPLETED [facility] NURSING PROGRESS NOTE Has ADDENDA TYPE OF VISIT: Appointment Check In Type of appointment: In-person appointment REASON FOR VISIT: Annual ALLERGIES: PFIZER COVID-19 VACCINE (EUA) (Mar 26, 2023) FENTANYL (Mar 26, 2023) INFLUENZA (Mar 26, 2023) MIRALAX (Mar 26, 2023) VITAL SIGNS: Blood Pressure: 130/84 (04/19/2024 09:19) Pulse: 95 (04/19/2024 09:19) Respiration: 16 (04/19/2024 09:19) Temperature: 97.8 F [36.6 C] (04/19/2024 09:19) Weight: 224.8 lb [101.97 kg] (04/19/2024 09:19) Height: 66 in [167.6 cm] (04/19/2024 09:19) BMI: 36.4 O2 Sat: 97% (04/19/2024 09:19) Pain: 2 (04/19/2024 09:19) PAIN SCREEN: Patient is not having significant pain that they wish to discuss with their provider today. FEMALE Last menstrual period (LMP): Mar : 3 Para: 2,,1, Influenza Immunization: Deferral / Refusal Deferred due to a precaution (i.e., acute illness, etc.) Homelessness/Food Insecurity Screen: In the past 2 [...] way to reach you? How to reach: [phone] The [facility] reports the following: Within the past 12 months, you worried whether your food would run out before you got money to buy more. Never true Within the past 12 months, the food you bought just didn't last and you didn't have money to get more. Never true Food Assistance Programs [facility] Food Assistance Programs [place] ADV DIR Notification and Screening: ADVANCE DIRECTIVE NOTIFICATION: Patient was given written notification of the following rights: 1. Accept or refuse any medical treatment. 2. Complete a durable power of deputy juvenile officer for health care. 3. Complete a living will. ADVANCE DIRECTIVE SCREENING: Does patient have an Advance Directive? The patient has an Advance Directive. Does the patient wish to make any changes or revoke their current Advance Directive? Yes, a social work consult is being placed to assist the [facility]. /lilia/ ROSALIA MUJICA MA, TCT TCT DEEPIKA NOEL Signed: 04/19/2024 09:29 04/19/2024 ADDENDUM STATUS: COMPLETED COVID-19 Immunization: Allergic /sandra MUJICA MA, TCT TCT DEEPIKA NOEL Signed: 04/19/2024 09:34 ROSALIA MUJICA
--- OUTSIDE RECORDS SUMMARY | 2024-05-04 07:56 | XMS_ITS | Encounter Summary ---
Author Name [facility] [place] Organization [place] Address [address] [place] [address] Care Team Providers Care Irradiated Fuel Handler Name Role Phone EMIR GRACIA Primary Care Provider Unavailabl e Selected Encounter This section includes the information on record at [place] for the Encounter. Date/Time Encounter Type Encounter Description Reason Pro vider Source Apr 19, 2024 10:18 AM Outpatient Encounter PULMONARY FUNCTION E Encounter Template Text not used by [place] Plan of Treatment: Future Appointments (+ 6 [...] 01:00 PM AMBULATORY - PSYCHIATRY TW IN [facility] Apr 26, 2024 09:30 AM [facility] Apr 27, 2024 01:00 PM AMBULATORY - PSYCHIATRY TW IN [facility] Apr 28, 2024 01:00 PM [facility] May 05, 2024 05:00 PM [facility] May 11, 2024 09:00 AM AMBULATORY - PSYCHIATRY [facility] May 11, 2024 01:00 PM AMBULATORY - PSYCHIATRY TW IN [facility] May 18, 2024 11:00 AM AMBULATORY - PSYCHIATRY TW IN [facility] May 18, 2024 01:00 PM AMBULATORY - MEDICINE [facility] May 24, 2024 08:30 AM [facility] Active, Pending, and Scheduled Orders [...] Order CARDIAC EC HO OUTPT-ALL SITES Cons Jewelry Designer's Choice [facility] Apr 19, 2024 10:08 AM Consult Order CARDIAC EC HO-SPECIAL PROCEDURE Cons Jewelry Designer's Choice [facility] Apr 19, 2024 10:47 AM Consult Order COMMUNITY CARE-NUCLEAR MEDICINE Cons Jewelry Designer's Choice [facility] [place] [place] Lab Results: +/- 30 days of the [...] Range Comment Apr 19, 2024 10:21 AM [facility] [place] [place] HEMOGLOBIN A1C Specimen Type: BLOOD Comment: Values [...] Apr 19, 2024 09:46 AM Reporting Lab: [facility] [id number] Performing Lab: [facility] [id number] HEMOGLOBIN A1C 4.9 4.0-6.0 Apr 19, 2024 10:21 AM [email or web address] LIPID PANEL,NON-FASTING Specimen Type: PLASMA Comment: Elevated triglyceride result from a non-fasting specimen should be interpreted with caution. A fasting panel is recommended for accurate triglycerides when trigs are >200 from a non-fasting specimen. Ordering Provider: EMIR GRACIA Report Released Date/Time: Apr 19, 2024 09:46 AM Reporting Lab: [facility] [id number] Performing Lab: [facility] [address] CHOLESTEROL 263 mg/dL H <199 .HDL 38 mg/dL L >50 LDL CALCULATION 151 mg/dL H <99 VLDL CALCULATION 74 mg/dL H <29 NON HDL CHOLESTEROL 225 mg/dL H <129 TRIG(NON FASTING) 368 mg/dL H <149 Apr 19, 2024 10:21 AM [facility] TSH W/REFLEX TO FREE T4 Specimen Type: PLASMA Comment: Elevated triglyceride result from a non-fasting specimen should be interpreted with caution. A fasting panel is recommended for accurate triglycerides when trigs are >200 from a non-fasting specimen. Ordering Provider: EMIR GRACIA Report Released Date/Time: Apr 19, 2024 09:46 AM Reporting Lab: [facility] [id number] Performing Lab: [facility] [phone] TSH 0.69 u[IU]/mL 0.35-4.94 Apr 19, 2024 10:21 AM [facility] ANTI-HEP C(EIA) Specimen Type: SERUM No comment entered. Ordering Provider: EMIR GRACIA Report Released Date/Time: Apr 19, 2024 10:00 AM Reporting Lab: [facility] [id number] Performing Lab: [place] [id number] ANTI-HEP C(EIA) NEGATIVE NEGATIVE Apr 19, 2024 10:21 AM [facility] [employer] COMPREHENSIVE METABOLIC PANEL+MG Specimen Type: PLASMA Comment: Elevated triglyceride result from a non-fasting specimen should be interpreted with caution. A fasting panel is recommended for accurate triglycerides when trigs are >200 from a non-fasting specimen. Ordering Provider: EMIR GRACIA Report Released Date/Time: Apr 19, 2024 09:46 AM Reporting Lab: [facility] [id number] Performing Lab: [facility] [phone] CREATININE 1.0 mg/dL 0.5-1.0 UREA NITROGEN 10 [...] Apr 19, 2024 09:46 AM Reporting Lab: [facility] [id number] Performing Lab: [facility] [address] WBC 5.5 4.0-11.0 RBC 4.74 4.00-5.40 HGB [...] 130/84 16 97 2 66 224.8 36 ESSIE Melo [address] Social History: Smoking Status (Most current) and [...] 27, 2023 09:00 AM [place]-TOBACCO FORMER USER [facility] Tobacco Use History This section includes a history of the smoking, or tobacco-related health factors, that were collected on or before the date of the Encounter. The data comes from the [place] facility where the Encounter took place. Date/Time Smoking Status/Tobacco Use Comment F acility Mar 27, 2023 09:00 AM [place]-TOBACCO QUIT 5 TO < 15 YRS [facility] Advance Directives: [...] 2024 ADVANCE DIRECTIVE DISCUSSION SHAHID H[facility]TADO [facility] Radiology Reports: +/- 30 days [...] the Encounter. The data comes from all [place] treatment facilities. Date/Time Radiology Report Provider Source Apr 19, 2024 09:48 AM CHEST 2 VIEWS PA Taylor DE LA CRUZ LAT: BILLIE ZAVALA [id number] -[id number] F Exm Date: APR 19, 2024@09:48 Req Phys: EMIR GRACIA Loc: K PACT DIAMONDS (Req'g Loc) Img Loc: [facility] RADIOLOGY Service: Unknown Screen: [place] [address] (Case [id number] COMPLETE) CHEST 2 VIEWS PA AND LAT (RAD Detailed) CPT:77573 Reason for Study: chest pain Clinical History: IS NOT under investigation for COVID-19 or is COVID-19 negative chest pain Responsible provider name and phone number to notify for critical findings if other than user placing the order and pager listed below: User placing orders pager: LAST CREATININE 1.0 (12/21/23) Report Status: Verified Date Reported: APR 19, 2024 Date Verified: APR 19, 2024 Rail Car Loader E-Sig:/ES/PIA VARGAS MD, FACR, CCD Report: EXAMINATION: CHEST 2 VIEWS PA AND LAT 04/19/2024 9:48 AM INDICATION: chest pain COMPARISON: None. FINDINGS: The cardiac silhouette and pulmonary vasculature are within normal limits. The lungs appear clear of infiltrate. No pleural fluid identified. Impression: No active pulmonary disease visualized. Primary Interpreting Staff: PIA VARGAS MD, FACR, STAFF RADIOLOGIST (Rail Car Loader) /PIA OLGUIN [facility] Encounter Notes: All associated encounter notes This section contains the clinical notes associated to the Encounter. Date/Time Encounter Note(s) Provider Source Apr 19, 2024 06:10 PM PULMONARY PROCEDUR E NOTE: LOCAL TITLE: CP PULMONARY FUNCTION TEST STANDARD TITLE: PULMONARY PROCEDURE NOTE DATE OF NOTE: APR 19, 2024@18:10 ENTRY DATE: APR 19, 2024@18:10 AUTHOR: CLINICAL,DEVICE PRO EXP COSIGNER: URGENCY: STATUS: COMPLETED PROCEDURE SUMMARY CODE: Machine Resulted DATE/TIME PERFORMED: APR 19, 2024@10:21:3 DOCUMENT IN [facility] IMAGING SEE FULL REPORT IN [facility]ISTA IMAGING SIGNATURE NOT REQUIRED SEE SIGNATURE IN VISTA IMAGING (VYAIRE (PFT)) AUTO-INSTRUMENT DIAGNOSIS Procedure: MIN_PFT PFT Measurement ti10:35AM Spirometry Ref LLN Pre ZScore% Ref FVC L 3.54 2.84 3.95 0.93 111.5 FEV 1 L 2.89 2.28 3.38 1.35 116.8 FEV1/FVC% 82 72 86 0.66 PEF L/s 6.79 5.31 12.05 5.85 177.5 FIVC L 3.54 2.84 3.76 0.50 106.1 FIF 50%L/s 7.00 Z-Score Pre-Bronchodilator FVC L 0.93 FEV 1 L 1.35 FEV1/FVC % 1 Parameter FVC FEV1 FEV1/FVC TLC RV DLCOcSB 04/19/2024 3.95 3.38 86 Good effort, test meets ATS criteria for acceptability and reproducibility. Bronchodilator not given as all values are with in confidence intervals. No Previous PFT's. Interpretation: Spirometry is Normal. Signed By: Shavon Nice MD Administrative Closure: 04/19/2024 by: CLINICAL,DEVICE PROXY SERVICE CLINICAL,DEVICE PROXY SERVICE DEEPIKA NOEL
--- OUTSIDE RECORDS SUMMARY | 2024-05-04 07:56 | XMS_ITS | Encounter Summary ---
Author Name [facility] [place] Organization [place] Address [address] [place] [address] Care Team Providers Care Media Strategist Name Role Phone EMIR GRACIA Primary Care Provider Bahman miranda Selected Encounter This section includes the information on record at [place] for the Encounter. Date/Time Encounter Type Encounter Description Reason Provider Source Apr 09, 2024 02:30 PM PSYCL TST EVAL PHYS/QHP [facility] - IND ICD-10-CM F43.12 Post-traumatic stress disorder, chronic OSMANI CURRIE Encounter Template Text not used by [place] Assessments - Encounter Diagnoses This section includes the primary and secondary diagnoses documented for the Encounter. Date/Time Primary/Secondary Diagnosis Diagnosis Name Provider Source Apr 09, 2024 04:18 PM PRIMARY Post-traumatic stress disorder, chronic OSMANI CURRIE [facility] Apr 09, 2024 04:18 PM SECONDARY Major depressive disorder, single episode, unspecified OSMANI CURRIE [facility] Plan of Treatment: Future Appointments (+ 6 [...] comes from all [place] treatment [facility]. Appointment Date/Time Appointment Type Appointme nt Facility Name Apr 12, 2024 09:30 AM AMBULATORY - PSYCHIATRY SH WILI [facility] Apr 19, 2024 09:00 AM AMBULATORY - MEDICINE LEEANN RAWLS [facility] Apr 20, 2024 01:00 PM AMBULATORY - PSYCHIATRY TW IN [facility] Apr 26, 2024 09:30 AM AMBULATORY - PSYCHIATRY SH MICHAELOPEE [facility] Apr 27, 2024 01:00 PM AMBULATORY - PSYCHIATRY TW IN [facility] Apr 28, 2024 01:00 PM AMBULATORY - PSYCHIATRY SH [place] [facility] May 05, 2024 05:00 PM [facility]ORY - NONE [place] [facility] May 11, 2024 09:00 AM AMBULATORY - PSYCHIATRY SH [place] [facility] May 11, 2024 01:00 PM AMBULATORY - PSYCHIATRY TW IN [facility] May 18, 2024 11:00 AM AMBULATORY - PSYCHIATRY TW IN [facility] May 18, 2024 01:00 PM [facility] May 24, 2024 08:30 AM [facility] Active, Pending, and Scheduled Orders This section includes a listing of several types of active, pending, and scheduled orders, including clinic medications orders, diagnostic test orders, procedure orders and consult orders; where the start date of the order is 45 days before the date of the Encounter or 45 days after the date of theEncounter. The data comes from all [facility]. Test Date/Time Test Type Test Details Facility Name Apr 19, 2024 09:46 AM Consult Order CARDIAC EC HO OUTPT-ALL SITES Cons Barrel Reamer's Choice [place] [facility] Apr 19, 2024 10:08 AM Consult Order CARDIAC EC HO-SPECIAL PROCEDURE Cons Barrel Reamer[facility] Apr 19, 2024 10:47 AM Consult Order COMMUNITY CARE-NUCLEAR MEDICINE Cons Barrel Reamer's [facility] Lab Results: +/- 30 days of the [...] Range Comment Apr 19, 2024 10:21 AM DEEPIKA NOEL HEMOGLOBIN A1C Specimen Type: [...] 19, 2024 09:46 AM Reporting Lab: [facility] [id number] Performing Lab: [facility] [address] HEMOGLOBIN A1C 4.9 4.0-6.0 Apr 19, 2024 10:21 AM DEEPIKA MONREAL LIPID PANEL,NON-FASTING Specimen Type: PLASMA Comment: Elevated triglyceride result from a non-fasting specimen should be interpreted with caution. A fasting panel is recommended for accurate triglycerides when trigs are >200 from a non-fasting specimen. Ordering Provider: EMIR GRACIA Report Released Date/Time: Apr 19, 2024 09:46 AM Reporting Lab: [facility] [phone] Performing Lab: [facility] [address] CHOLESTEROL 263 mg/dL H <199 .HDL 38 mg/dL L >50 LDL CALCULATION 151 mg/dL H <99 VLDL CALCULATION 74 mg/dL H <29 NON HDL CHOLESTEROL 225 mg/dL H <129 TRIG(NON FASTING) 368 mg/dL H <149 Apr 19, 2024 10:21 AM DEEPIKA MONREAL TSH W/REFLEX TO FREE T4 Specimen Type: PLASMA Comment: Elevated triglyceride result from a non-fasting specimen should be interpreted with caution. A fasting panel is recommended for accurate triglycerides when trigs are >200 from a non-fasting specimen. Ordering Provider: EMIR GRACIA Report Released Date/Time: Apr 19, 2024 09:46 AM Reporting Lab: [facility] [id number] Performing Lab: [facility] [id number] TSH 0.69 u[IU]/mL 0.35-4.94 Apr 19, 2024 10:21 AM DEEPIKA NOEL ANTI-HEP C(EIA) Specimen Type: SERUM No comment entered. Ordering Provider: EMIR GRACIA Report Released Date/Time: Apr 19, 2024 10:00 AM Reporting Lab: [facility] [phone] Performing Lab: [facility] [id number] ANTI-HEP C(EIA) NEGATIVE NEGATIVE Apr 19, 2024 10:21 AM [facility] COMPREHENSIVE METABOLIC PANEL+MG Specimen Type: PLASMA Comment: Elevated triglyceride result from a non-fasting specimen should be interpreted with caution. A fasting panel is recommended for accurate triglycerides when trigs are >200 from a non-fasting specimen. Ordering Provider: EMIR GRACIA Report Released Date/Time: Apr 19, 2024 09:46 AM Reporting Lab: [facility] [id number] Performing Lab: [facility] [id number] CREATININE 1.0 mg/dL 0.5-1.0 UREA NITROGEN 10 [...] 71 >60 Apr 19, 2024 10:21 AM [place] [facility] CBC Specimen Type: BLOOD No comment entered. Ordering Provider: EMIR GRACIA Report Released Date/Time: Apr 19, 2024 09:46 AM Reporting Lab: [facility] [id number] Performing Lab: [facility] [address] WBC 5.5 4.0-11.0 RBC 4.74 4.00-5.40 HGB [...] Facil ity Jan 05, 2024 12:00 PM [place]-TOBACCO FORMER USER [facility] Tobacco Use History This section includes a history of the smoking, or tobacco-related health factors, that were collected on or before the date of the Encounter. The data comes from the [place] facility where the Encounter took place. Date/Time Smoking Status/Tobacco Use Comment F acility Jan 05, 2024 12:00 PM [place]-TOBACCO QUIT 5 TO < 15 YRS [facility] Advance Directives: All historical and current Section Date Range: From patient's date of to the date document was created. This section includes ALL of a patient's completed or amended [place] Advance and Rescinded Directives. The entries below indicate that a directive exists for the patient, but an actual copy is not included with this document. The data comes from all [facility]. Date Advance Directives Provider Source Jan [...] VIEWS PA A ND LAT: BILLIE ZAVALA [id number] -1980 F Exm Date: APR 19, 2024@09:48 Req Phys: EMIR GRACIA Pat Loc: [facility] PACT DIAMONDS (Req'g Loc) Img Loc: [facility] RADIOLOGY Service: Unknown Screen: [place] [address] (Case [id number] COMPLETE) CHEST 2 VIEWS PA AND LAT (RAD Detailed) CPT:03754 Reason for Study: chest pain Clinical History: [place] IS NOT under investigation for COVID-19 or is COVID-19 negative chest pain Responsible provider name and phone number to notify for critical findings if other than user placing the order and pager listed below: User placing orders pager: LAST CREATININE 1.0 (12/21/23) Report Status: Verified Date Reported: APR 19, 2024 Date Verified: APR 19, 2024 Construction Flagger E-Sig:/ES/PIA VARGAS MD, FACR, CCD Report: EXAMINATION: CHEST 2 VIEWS PA AND LAT 04/19/2024 9:48 AM INDICATION: chest pain COMPARISON: None. FINDINGS: The cardiac silhouette and pulmonary vasculature are within normal limits. The lungs appear clear of infiltrate. No pleural fluid identified. Impression: No active pulmonary disease visualized. Primary Interpreting Staff: PIA VARGAS MD, FACR, STAFF RADIOLOGIST (Construction Flagger) /PIA OLGUIN [facility] Encounter Notes: All associated encounter notes This section contains the clinical notes associated to the Encounter. Date/Time Encounter Note(s) Provider Source Apr 09, 2024 03:39 PM MENTAL HEALTH CONS ULT: LOCAL TITLE: MH PSYCHOLOGY ASSESSMENT CONSULT STANDARD TITLE: MENTAL HEALTH CONSULT DATE OF NOTE: APR 09, 2024@15:39 ENTRY DATE: APR 09, 2024@15:39:45 AUTHOR: HELGA PURCELL COSIGNER: OSMANI CURRIE URGENCY: STATUS: COMPLETED PSYCHOLOGY ASSESSMENT CONSULT Has ADDENDA I met with to provide feedback from the psychological assessment dated 03/25/24. Please see that note dated 03/25/24 for details including documentation of informed consent, the treatment plan and risk assessment. Additional information was assessed on 's gambling history.Results of the assessment were explained to the . She appeared to understand the results, agreed with the findings, and expressed that the information and next steps were helpful and validating. She asked appropriate follow-up questions on next steps and treatment suggestions. See full report as addenda of note on 03/25/24: Psychology Assessment Consult. /lilia/ OSMANI CURRIE, Ph.D. STAFF PSYCHOLOGIST Signed: 04/09/2024 16:18 for HELGA PURCELL M.S. OUTREACH REP /lilia/ OSMANI CURRIE, Ph.D. STAFF PSYCHOLOGIST Cosigned: 04/09/2024 16:18 04/09/2024 ADDENDUM STATUS: COMPLETED In area supervision Agree [...] for an appointment focusing on a psychological assessment and feedback. Clinical thinking, assessment and treatment plan: [place] will continue care with their present care team. Full report addended to 03/25/24 Psychology Assessment Consult on 04/09/24. /lilia/ OSMANI CURRIE, Ph.D. STAFF PSYCHOLOGIST Signed: 04/09/2024 16:19 OSMANI CURRIE [facility]
--- OUTSIDE RECORDS SUMMARY | 2024-05-04 07:56 | XMS_ITS | Encounter Summary ---
Author Name [facility] Organization [facility] [place] Address [address] [place] [address] Care Team Providers Care Certified Medicine Aide Name Role Phone EMIR GRACIA Primary Care Provider Unavailabl e Selected Encounter This section includes the information on record at [place] for the Encounter. Date/Time Encounter Type Encounter Description Reason Pro vider Source Apr 06, 2024 02:59 PM Outpatient Encounter MENTAL HEALTH [facility] Encounter Template Text not used by PR [...] 01:00 PM AMBULATORY - PSYCHIATRY TW IN [facility] Apr 09, 2024 02:30 PM AMBULATORY - [place]IATRY [place] [facility] Apr 12, 2024 09:30 AM AMBULATORY - PSYCHIATRY SH WILI [facility] Apr 19, 2024 09:00 AM AMBULATORY - MEDICINE LEEANN RAWLS [facility] Apr 20, 2024 01:00 PM AMBULATORY - PSYCHIATRY TW IN [facility] Apr 26, 2024 09:30 AM AMBULATORY - PSYCHIATRY SH [place] [facility] Apr 27, 2024 01:00 PM AMBULATORY - PSYCHIATRY TW IN [facility] Apr 28, 2024 01:00 PM AMBULATORY - PSYCHIATRY SH [place] [facility] May 05, 2024 05:00 PM AMBULATORY - NONE [place] [facility] [facility] May 11, 2024 09:00 AM AMBULATORY - PSYCHIATRY [place] [facility] May 11, 2024 01:00 PM AMBULATORY - PSYCHIATRY TW IN [facility] May 18, 2024 11:00 AM AMBULATORY - PSYCHIATRY TW IN [facility] May 18, 2024 01:00 PM [facility] May 24, 2024 08:30 AM [facility] [place] [facility] Active, Pending, and Scheduled Orders This [...] Order CARDIAC EC HO OUTPT-ALL SITES Cons Supervisor Painting Shipyard's Choice [place] [facility] Apr 19, 2024 10:08 AM Consult Order CARDIAC EC HO-SPECIAL PROCEDURE Cons Supervisor Painting Shipyard's Choice [place] [facility] Apr 19, 2024 10:47 AM Consult Order COMMUNITY CARE-NUCLEAR MEDICINE Cons Supervisor Painting Shipyard's Choice [facility] [...] Apr 19, 2024 09:46 AM Reporting Lab: [facility] [id number] Performing Lab: [facility] [id number] HEMOGLOBIN A1C 4.9 4.0-6.0 Apr 19, 2024 10:21 AM [place] CB TSH W/REFLEX TO FREE T4 Specimen Type: PLASMA Comment: Elevated triglyceride result from a non-fasting specimen should be interpreted with caution. A fasting panel is recommended for accurate triglycerides when trigs are >200 from a non-fasting specimen. Ordering Provider: EMIR GRACIA Report Released Date/Time: Apr 19, 2024 09:46 AM Reporting Lab: [facility] [id number] Performing Lab: [facility] [id number] TSH 0.69 u[IU]/mL 0.35-4.94 Apr 19, 2024 10:21 AM [facility] LIPID PANEL,NON-FASTING Specimen Type: PLASMA Comment: Elevated triglyceride result from a non-fasting specimen should be interpreted with caution. A fasting panel is recommended for accurate triglycerides when trigs are >200 from a non-fasting specimen. Ordering Provider: EMIR GRACIA Report Released Date/Time: Apr 19, 2024 09:46 AM Reporting Lab: [facility] [id number] Performing Lab: [facility] [id number] CHOLESTEROL 263 mg/dL H <199 .HDL 38 mg/dL L >50 LDL CALCULATION 151 mg/dL H <99 VLDL CALCULATION 74 mg/dL H <29 NON HDL CHOLESTEROL 225 mg/dL H <129 TRIG(NON FASTING) 368 mg/dL H <149 Apr 19, 2024 10:21 AM [place] [facility] ANTI-HEP C(EIA) Specimen Type: SERUM No comment entered. Ordering Provider: EMIR GRACIA Report Released Date/Time: Apr 19, 2024 10:00 AM Reporting Lab: [facility] [id number] Performing Lab: [facility] [id number] ANTI-HEP C(EIA) NEGATIVE NEGATIVE Apr 19, 2024 10:21 AM DEEPIKA MON[facility]AL COMPREHENSIVE METABOLIC PANEL+MG Specimen Type: PLASMA Comment: Elevated triglyceride result from a non-fasting specimen should be interpreted with caution. A fasting panel is recommended for accurate triglycerides when trigs are >200 from a non-fasting specimen. Ordering Provider: EMIR GRACIA Report Released Date/Time: Apr 19, 2024 09:46 AM Reporting Lab: [facility] [id number] Performing Lab: [facility] [id number] CREATININE 1.0 mg/dL 0.5-1.0 UREA NITROGEN 10 [...] 71 >60 Apr 19, 2024 10:21 AM [place] [facility] CBC Specimen Type: BLOOD No comment entered. Ordering Provider: EMIR GRACIA Report Released Date/Time: Apr 19, 2024 09:46 AM Reporting Lab: [facility] [id number] Performing Lab: [facility] [id number] WBC 5.5 4.0-11.0 RBC 4.74 4.00-5.40 HGB [...] and tobacco- related health factors from the [place] facility where the Encounter took place. Current Smoking Status This section includes the most current smoking, or tobacco-related health factor, from the [place] facility where the Encounter took place. Date/Time Current Smoking Status Comment Facil ity Jan 05, 2024 12:00 PM VA-TOBACCO FORMER USER [facility] Tobacco Use History This section includes a history of the smoking, or tobacco-related health factors, that were collected on or before the date of the Encounter. The data comes from the PR facility where the Encounter took place. Date/Time Smoking Status/Tobacco Use Comment F acility Jan 05, 2024 12:00 PM PR-TOBACCO QUIT 5 TO < 15 YRS [facility] Advance Directives: All historical and current Section Date Range: From patient's date of to the date document was created. This section includes ALL of a patient's completed or amended [place] Advance and Rescinded Directives. The entries below [...] the Encounter. The data comes from all [place] treatment facilities. Date/Time Radiology Report Provider Source Apr 19, 2024 09:48 AM CHEST 2 VIEWS PA A DOROTHY LAT: BILLIE ZAVALA [id number] [id number] F Exm Date: APR 19, 2024@09:48 Req Phys: EMIR GRACIA Loc: K PACT DIAMONDS (Req'g Loc) Img Loc: [facility] RADIOLOGY Service: Unknown Screen: [place] [address] (Case [id number] COMPLETE) CHEST 2 VIEWS PA AND LAT (RAD Detailed) CPT:69019 Reason for Study: chest pain Clinical History: IS NOT under investigation for COVID-19 or is COVID-19 negative chest pain Responsible provider name and phone number to notify for critical findings if other than user placing the order and pager listed below: User placing orders pager: LAST CREATININE 1.0 (12/21/23) Report Status: Verified Date Reported: APR 19, 2024 Date Verified: APR 19, 2024 Gyro Mechanic E-Sig:/ES/PIA VARGAS MD, FACR, CCD Report: EXAMINATION: CHEST 2 VIEWS PA AND LAT 04/19/2024 9:48 AM INDICATION: chest pain COMPARISON: None. FINDINGS: The cardiac silhouette and pulmonary vasculature are within normal limits. The lungs appear clear of infiltrate. No pleural fluid identified. Impression: No active pulmonary disease visualized. Primary Interpreting Staff: PIA VARGAS MD, FACR, STAFF RADIOLOGIST (Gyro Mechanic) /PIA OLGUIN [facility] Encounter Notes: All associated encounter notes This section contains the clinical notes associated to the Encounter. Date/Time Encounter Note(s) Provider Source Apr 06, 2024 02:59 PM REPORT OF CONTACT: LOCAL TITLE: APPOINTMENT SCHEDULING NOTE STANDARD TITLE: REPORT OF CONTACT DATE OF NOTE: APR 06, 2024@14:59 ENTRY DATE: APR 06, 2024@14:59:19 AUTHOR: ARACELI ESPINOZA EXP COSIGNER: URGENCY: STATUS: COMPLETED This sports book writer contacted via phone for scheduling. [place] requested to schedule for 04/09 at 2:30PM with the undersigned trainee. (Psychologist Research Assistant confirmed pt's email address as noted in chart). /lilia/ ARACELI ESPINOZA Advanced Photo Colorer, VHA Signed: 04/06/2024 15:00 Receipt Acknowledged By: 04/07/2024 08:12 /lilia/ HELGA POWELL M.S. SUPERVISOR HOME ENERGY CONSULTANT ARACELI ESPINOZA [facility]
--- OUTSIDE RECORDS SUMMARY | 2024-05-04 07:57 | XMS_ITS | Referral Summary ---
Author Organization [facility] Address [address] [place] [address]. [place] [address] Care Team Providers Care Coremaking Supervisor Name Role Phone Jacinta Mendes MD Primary Care Provider Unavailab Jacinta Ortiz MD Unavailable Unavailable Toño Patricia MD Unavailable [phone] Allergies Active Allergy Reactions Criticality Noted Date Comments Covid-19 (Mrna) Vaccine Anaphylaxis,Hive s,It amelia,Shortness Of Breath High 07/12/2020 Other reaction(s): Edema, Flushing, Throat Swelling/Closing Fentanyl Other (See Comments) High 12/26/2011 Other reaction(s): GI Upset, sphincter of Darrell spasms Causes pain Abdominal pain Influenza Virus Vaccine 03/22/2017 Polyethylene Glycol 2000 Dimyristoyl Glycerol Angioedema High 01/15/2022 Patient reacted to PEG [...] itching Active cefTAZidime (FORTAZ) 1 GM vialIndications:Ja g allergy For Allergy Testing in Allergy Clinic [...] of Treatment Not on file Care Teams Coremaking Supervisor Relationship Specialty Start Date End Date Jacinta Mendes MD PCP - General Family Practice 03/07/14 Jacinta Mendes MD Referring Physician Family Medicine 06/19/21 Toño Patricia MD [address] [place], [place] [address] Allergy & Immunology 06/19/21
--- OUTSIDE RECORDS SUMMARY | 2024-05-04 07:57 | XMS_ITS | Clinical Summary ---
Author Organization [employer] [facility] Address [place], [place] [address] Care Team Providers Care Salvationist Name Role Phone Omar Vogt MD Unavailable [phone] Facundo Bell RN Unavailable Annika Huff [...] Active methylPREDNISolone (Medrol, Michael,) 4 mg tabletIndications:Ac [place] vie[place] right-sided low back pain without sciatica Take by mouth as instructed per packaging. 21 Tablet 02/12/2023 Active cyclobenzaprine (FLEXERIL) 5 mg tabletIndications:Ac [place] vie[place] right-sided low back pain without sciatica Take 1-2 Tablets (5-10 mg) by mouth 3 times daily if needed for Muscle Spasm. 21 Tablet 02/12/2023 Active ibuprofen (ADVIL; MOTRIN) 800 mg tabletIndications:Ac [place] right-sided low back pain without sciatica Take 1 Tablet (800 mg) by mouth three times daily with meals. 90 Tablet 02/12/2023 Active HYDROmorphone (Dilaudid) 4 mg tabletIndications:Ac [place] vie[place] right-sided low back pain without sciatica Take 1 Tablet (4 mg) by mouth every 6 hours if needed for Pain. 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 Chronic idiopathic urticaria 01/15/2022 Angio-edema 01/15/2022 Chronic recurrent pancreatitis 05/31/2021 Overview (05/31/2021): [place] [facility] S/p sphinterotomy Hyperlipidemia 09/27/2020 Dyshidrotic eczema 10/23/2016 S/P ERCP 03/30/2014 Intractable pain 03/30/2014 Overview (05/31/2021): Joint pain : saw rheumatology CHARLENE, RA , CRP negative Flushing 12/09/2011 Overview (05/31/2021): TOTAL METANEPHRINE 24HR U Latest Ref Range: 149 - 535 mcg/24 h 677 (H) 5 HIAA,24HR URINE Latest Ref Range: <8.1 mg/24 h 22.9 (H) 5.4 4.4 METANEPHRINES,24HR Latest Ref Range: 30 - 180 mcg/24 h 167 NORMETANEPHRINE,24HR UR Latest Ref Range: 111 - 419 mcg/24 h 510 (H) Hx of anaphylaxis 12/09/2011 Overview (05/31/2021): Multiple triggers Reacted to COVID-19 shot Adjustment disorder with mixed anxiety and depre ssed mood 04/08/2008 Anemia, unspecified 06/01/2005 Immunizations Name Administration Dates Next Due COVID-19 vaccine (EpiCrystalsJ&PersistIQ) PFDARYA 2,09/01/2021 COVID-19 vaccine ([employer] 30mcg/0.3mL) P FDARYA 07/12/2020 Td, Preservative Free [...] Outcome GA Total Labor Labor/2nd/3rd Weight Sex Type Anes PTL Jayla A1 A5 Name Clin SAB 11/30 Term 40w 0d 36h 00m/ 3.12 kg (6 lb 14 oz) M [facility] Jeremy 12/23 Term 38w 0d 16h 00m/ 3.71 kg (8 lb 3 oz) M Vag [facility] Last Filed Vital Signs Vital Sign Reading [...] 03/18/2023 9:00 AM CDT Plan of Treatment Upcoming Encounters Date Type Department Care Team (Late st Contact Info) Description 05/04/2024 8:00 AM CDT Ancillary Procedure [facility] [address] [place] [address] Health Maintenance Due Date Last Done Comments Depression screening for age 12+ 08/16/2023 08/16/2022, 09/11/2021, 09/10/2021, Additional history exists BMI (ht and wt on same day) for age 18+ 03/18/2024 03/18/2023, 02/11/2023, 12/03/2022, Additional history exists COVID-19 vaccine series ( season) 2024 10/15/2021, 09/01/2021, 12/28/2020, Additional history exists Pap test for age [...] this topic Medical Devices Implanted Type Area Heel Scourer Device Identifier Shelf Expiration Date Model / Serial / Lot Stent Pancreatic 5fr 3cm Gpso Lory - [id number] Implanted:Qty: 1 on 03/29/2014 at [facility] 07/21/2016 GPSO- 5-3# / / [id number] Stent Pancreatic [id number] Lory Sof-Flex - [id number] Implanted:Qty: 1 on 04/28/2023 by Meagan Fraga MD at [facility] N/A: Pancreas [facility] GPSO-SF-5 -5 / / [id number] Procedures Procedure Name Priority Date/Time Associated Diagnosis Comments LC HCV ANTIBODY RFX TO QUANT PCR Routine 08/16/2022 1:31 PM ENTERPRISE INTEGRATION ARCHITECT Need for hepatitis C screening test LINUX UNIX ENGINEER THIN PREP PAP SCREEN IMAGED Routine 06/12/2020 1:55 PM ENTERPRISE INTEGRATION ARCHITECT Screening for cervical cancer ANTI HIV 1/2 Routine 05/22/2007 10:08 AM CDT Supervision Of Other Normal from Last 3 Months or Most Recently Relevant to Health Maintenance Results * LC HCV ANTIBODY RFX TO QUANT PCR (08/16/2022 1:31 PM ENTERPRISE INTEGRATION ARCHITECT) HCV Ab <0.1 0.0 - 0.9 s/co ratio 08/20/2022 10:06 PM ENTERPRISE INTEGRATION ARCHITECT [facility] ([facility]) Blood BLOOD SPECIMEN / Unknown Venipuncture / Unknown 08/16/2022 1:31 PM ENTERPRISE INTEGRATION ARCHITECT 08/16/2022 1:31 PM ENTERPRISE INTEGRATION ARCHITECT Narrative [facility] ([facility]ET) - 08/20/2022 10:06 PM ENTERPRISE INTEGRATION ARCHITECT Performed at: ??01 - [facility] [address], [place] ??[id number] Twisting Machine Operator: Sha Mireles MD, Phone: ??[phone] Donell Herbjennifer DO LABORATORY [facility] ([facility]ET) [address] [place] [id number] * LINUX UNIX ENGINEER THIN PREP PAP SCREEN IMAGED [[id number]] (06/12/2020 1:55 PM ENTERPRISE INTEGRATION ARCHITECT) Case Report Gynecologic Cytology Report ? Case: [id number] ? Authorizing Provider: ??Jacinta Mendes MD ? Collected: ? 06/12/2020 1355 ? Ordering Location: ? [facility] ?? Received: ?06/12/2020 1438 ? Clinic ? First Screen: ?Venu, [place] ? Specimen: ?LINUX UNIX ENGINEER ThinPrep Vial Screening, Cervical ? 06/22/2020 10:19 AM [facility]OR[facility]-C ENTRAL LABORATORY INTERPRETATION/ RESULT NEGATIVE FOR INTRAEPITHELIAL LESION OR MALIGNANCY (NIL) (none) 06/22/2020 10:19 AM [facility]-C ENTRAL LABORATORY IMEN ADEQUACY Satisfactory for evaluation Endocervical component present 06/22/2020 10:19 AM [facility]-C ENTRAL LABORATORY HPV REQUEST HPV and PAP 06/22/2020 10:19 AM [facility]-C ENTRAL LABORATORY Date of LMP 06/05/20 06/22/2020 10:19 AM [facility] ENTRAL LABORATORY Last Pap Date 03/06/17 06/22/2020 10:19 AM [facility]-C ENTRAL LABORATORY Last Pap Result NIL 0 10:19 AM [facility] Abnormal Pap or [place] Bx in last 5 years No 06/22/2020 10:19 AM [facility] Menstrual Status Regular Periods 06/22/2020 10:19 AM [facility] [place] Bx Done Today No 06/22/2020 10:19 AM [facility] Additional Information None given 06/22/2020 10:19 AM [facility] Comment: Cytology is screened at [facility] - [address], [place] [address] and [facility] - [address], [place] [address] and [facility] - [address] [place] [address] Interpreted at [facility] - [address], [place] [address] Automated Review Successful 06/22/2020 10:19 AM [facility] Comment:Specimen processed s uccessfully by automated size cutter device, ThinPrep Imaging System, [employer] ANCILLARY TESTING LINUX UNIX ENGINEER HPV Ordered, Please see separate report 06/22/2020 10:19 AM [facility] Note The pap test is a screening technique, not a diagnostic procedure. It is used primarily to screen for squamous cancers and precursor lesions. Published studies have shown that it is subject to both false negative and false positive results. The pap test should not be used as the sole means to diagnose or exclude pre-malignant and malignant lesions. 06/22/2020 10:19 AM [facility] Other (Cervical) Non-Blood / Unknown 06/12/2020 1:55 PM ENTERPRISE INTEGRATION ARCHITECT 06/12/2020 2:38 PM ENTERPRISE INTEGRATION ARCHITECT Jacinta Mendes MD PATHOLOGY/CYTOLOGY [facility] [address] [place] [address], [place] * ANTI HIV 1/2 (05/22/2007 10:08 AM CDT) ANTI HIV 1/2 Non-reacti ve [facility] Blood specimen (specimen) BLOOD SPECIMEN / Unknown 05/22/2007 10:08 AM CDT 05/22/2007 10:02 AM CDT Jacinta Mendes MD SEND OUTS [facility] INTERNAL ZIP [address] [address] from Last 3 Months or Most Recently [...] 9:18 AM 12/27/2011 2:17 AM Care Teams Salvationist Relationship Specialty Start Date End Date Pcp, No . PCP - General 01/31/23 Omar Vogt MD Allergy and Immunology 12/04/11 Facundo Bell, YUMIKO [address] [facility] [place] [address] Registered Nurse 11/05/22 Annika Huff NP [address] [place] [address] [place] [address] Nurse Practitioner - Family 11/05/22
--- OUTSIDE RECORDS SUMMARY | 2024-05-04 07:57 | XMS_ITS | Clinical Summary ---
Author Organization [facility] Address [address] [place] [address]. [place] [address] Care Team Providers Care Healthcare Facility Administrator Name Role Phone Jacinta Mendes MD Primary Care Provider Unavailab Jacinta Ortiz MD Unavailable Unavailable Toño Patricia MD Unavailable [phone] Allergies Active Allergy Reactions Criticality Noted Date [...] PAP 12/07/2000 YEARLY PREVENTIVE VISIT 06/12/2021 06/12/2020 PHQ-2 (once per calendar year) 2023 01/16/2022, 09/11/2021 COVID-19 Vaccine ( - 2023- season) 2024 10/15/2021, 09/01/2021, 12/28/2020, Additional history exists INFLUENZA VACCINE (#1) 2024 DTAP/TDAP/TD IMMUNIZATION (3 - Td or Tdap) 03/06/2027 03/06/2017, 07/21/2006 RSV VACCINE (1 - 1-dose 75+ series) 12/07/2054 HPV IMMUNIZATION Aged Out No longer e ligible based on patient's age to complete this topic MENINGITIS IMMUNIZATION Aged Out No l onger eligible based on patient's age to complete this topic RSV MONOCLONAL ANTIBODY Aged Out No l onger eligible based on patient's age to complete this topic Care Teams Healthcare Facility Administrator Relationship Specialty Start Date End Date Jacinta Mendes MD PCP - General Family Practice 03/07/14 Jacinta Mendes MD Referring Physician Family Medicine 06/19/21 Toño Patricia MD [address] [place] [id number] Allergy & Immunology 06/19/21
--- OUTSIDE RECORDS SUMMARY | 2024-05-04 07:57 | XMS_ITS | Encounter Summary ---
Author Organization [facility] Address [address] [place] [address]. [place] [address] Care Team Providers Care [employer] Name Role Phone Jacinta Mendes MD Primary Care Provider Unavailab Jacinta Ortiz MD Unavailable Unavailable Toño Patricia MD Unavailable [phone] Toño Patricia MD Unavailable [phone] Encounter Details Date Type Department Care Team (Late st Contact Info) Description 01/16/2022 [facility] [address] [address] Toño Patricia MD [address] [place] [address] Social History Tobacco Use Types Packs/Day [...] on filedocumented in this encounter Care Teams [employer] Relationship Specialty Start Date End Date Jacinta Mendes MD PCP - General Family Practice 03/07/14 Jacinta Mendes MD Referring Physician Family Medicine 06/19/21 Toño Patricia MD [address] [place] [address] Allergy & Immunology 06/19/21 Toño Patricia MD [address] [place], [place] [address] Assigned Surgical Provider 09/16/21 07/18/23 documented as of this encounter
--- OUTSIDE RECORDS SUMMARY | 2024-05-04 07:57 | XMS_ITS | Continuity of Care Document ---
Author Organization [facility] Address [address] [address] [place] [address] Phone Care Team Providers Care Contemporary Or Modern Dancer Name Role Phone Flakito PEDERSEN, Meagan Miranda [...] ERCP w/stent & sphinc Offic/outpt E&m [facility] Offic/outpt E&m Estab Low-mod 6 Ercp; W/press [...] Diagnoses Date Provider Providers Copied on Encounter [facility] [place], [address] [address], [place], [id number], [place] tel:[phone] [facility] No Information 3 Flakito Barnett [address] [facility] [address], [place], [place], [id number], [place]. [phone] [facility] [place], [address] [address], [facility] [place], [id number], [place] tel:[phone] [facility] Presence of pancreatic duct stent Apr-0 3 Flakito Barnett [address] [facility], [place], [place], [id number], [place]. tel:[phone] [facility] [place], [address] [address], [place], [id number], [place] tel:[phone] [facility] No Information 0 3 Flakito Barnett [address] [facility], [place], [place], [id number], [place]. tel:[phone] Referring Provider: Meagan Fraga MD, [address], [place], [address] . tel:[phone] Offic/outpt E&m [facility] [place], [address] [address], [place], [id number], [place] tel:[phone] [facility] GI Symptoms or Concerns (chief complaint) Recurrent acute pancreatitis Apr- 3 Flakito Barnett [address] [facility], [facility] [address], [place], [place], [id number], [place]. tel:[phone] Referring Provider: Referral Self, USE FOR SELF REFERRALS. [facility], [address] [address], [place], [id number], [place] tel:[phone] [facility] No Information 3 Hari Johnson. [address] [facility], [facility] [address], [place], [place], [address], [place]. tel:[phone] [facility], [address] [address], [place], [id number], [place] tel:[phone] [facility] Chronic abdominal painOther chronic painSpasm of sphincter of Oddi 3 Flakito Barnett [address] [facility], [facility] [address], [place], [place], [id number], [place]. tel:[phone] Offic/outpt E&m Estab Low-mod [facility], [address] [address], [place], [id number], [place] tel:[phone] [facility] GI Symptoms or Concerns (chief complaint) Sphincter of Oddi dysfunction 6 No Information [facility], [address] [address], [place], [id number], [place] tel:[phone] [facility] Sphincter of Oddi dysfunction 6 No Information [facility], [address] [address], [place], [id number], [place] tel:[phone] [facility] No Information 0- 6 No Information Offic/outpt E&m Estab Mod-hi 2 [facility], [address] [address], [place], [id number], [place] tel:[phone] [facility] GI Symptoms or Concerns (chief complaint) Abdominal pain, epigastricAc [place] pancreatitis , unspecifiedD ietary counseling and surveillance 2-201 6 No Information Offic/outpt E&m Estab Minor [facility], [address] [address], [place], [id number], [place] tel:[phone] [facility] GI Symptoms or Concerns (chief complaint) Spasm Sphincter Of Oddi 4 No Information Referring Provider: Referral Self, USE FOR SELF REFERRALS. [facility] E&m Minr Compl [facility], [address] [address], [place], [id number], [place] tel:[phone] [facility] No Information Mar- 4 No Information Referring Provider: Michael Gonzalez, [address], [address]. tel:[phone] [facility], [address] [address], [place], [id number], [place] tel:[phone] [facility] Acute Pancreatitis Sep-0 4 No Information [facility], [address] [address], [place], [id number], [place] tel:[phone] [facility] No Information Mar-0 4 No Information [facility], [address] [address], [place], [id number], [place] tel:[phone] [facility] No Information Mar-0 4 No Information Referring Provider: Michael Gonzalez, [address], [address]. tel:[phone] Offic/outpt E&m Estab Mod-hi 2 [facility], [address] [address], [place], [id number], [place] tel:[phone] [facility] GI Symptoms or Concerns (chief complaint) Acute Pancreatitis Sep-0 4 No Information Offic/outpt E&m Estab Low-mod [facility], [address] [address], [place], [id number], [place] tel:[phone] [facility] Sphincter of ODDI spasm (chief complaint) Spasm Sphincter Of Oddi 0 3 No Information Offic/outpt E&m Estab Mod-hi 2 [facility], [address] [address], [place], [id number], [place] tel:[phone] [facility] Pancreatitis (chief complaint) Spasm Sphincter Of Oddi 2 No Information [facility] [place], [address] [address], [place], [id number], [place] tel:[phone] [facility] No Information 2 No Information Offic/outpt E&m Estab Mod-hi 2 [facility] [place], [address] [address], [place], [id number], [place] tel:[phone] [facility] Pancreatitis (chief complaint) Acute Pancreatitis 2 No Information [facility] [place] [address] [address], [place], [id number], [place] tel:[phone] [facility] No Information 2 No Information Family History [...] protein-Ad26, preservative free, 0.5 mL administered Note: [employer] bi- directional interface ; Source: Other Registry SARS-COV-2 (COVID-19) vaccin e, vector non-replicating, recombinant spike protein-Ad26, preservative free, 0.5 mL administered Note: [employer] bi- directional interface ; Source: Other Registry [...] Registry Payers Payer name Insurance type Covered libertarian ID Authoriza tion(s) No Information Social History [...] I have requested her outside records from [facility]. We last saw her in 2015. [...] nausea and vomiting. She was hospitalized at [facility]. She reports having an elevated lipase [...]
[2024-05-04 10:34] VITALS: BP 130/74; PULSE 120; RESP 18
--- NOTE | 2024-05-04 12:58 | W.PM.STED ---
Stress Test Note Date Date of test: 05/04/24 Providers Primary care provider: Nila Salmon Stress test physician: Eddi Rasmussen Stress Test Note Stress test ordered: Stress Myoview Indication for test: Dyspnea on exertion Results discussion: This very nice 43-year-old female presents for the above test, after discussion the risks benefits side effects she would like to proceed pretest EKG shows normal sinus rhythm, with a ventricular rate of 90 and a blood pressure [address] wave changes are noted. Standard Myoview walking protol is followed, patient did well but developed shortness of breath, through the at peak. No chest pain was noted. There were no dysrhythmias, test is terminated because of fulfillment of protocol and shortness of breath that at 8 minutes. She achieved a metabolic equivalent of 9.7 Mets. He no acute ST wave changes are noted. There were no dysrhythmia Impression: Negative electrographic portion of a walking Myoview, conditioning was felt to be fair. Follow up suggested: Await nuclear images, the clinical correlation with these will be needed. Patient recovered well, left this testing facility in good condition.
== END 2024-05-04 10:35 | disposition home or self-care (01) ==
LOC: STRESS 07:47
PROVIDERS: PCP Nurse Practitioner Gerontology; Visit Provider Nurse Practitioner Gerontology
DX: R06.09 Other forms of dyspnea (principal)
CPT/HCPCS: 78452; 93016; 93017; A9500

== ENCOUNTER 2024-07-14 18:24 | Inpatient (IN) | payer OTHER, SELFPAY ==
--- OUTSIDE RECORDS SUMMARY | 2024-07-14 18:26 | XMS_ITS | Continuity of Care Document ---
Author Name [facility] Address [address] [place] [address] Organization [facility] Address [address] [place] [address] Care Team Providers Care Pest Management Supervisor Name Role Phone UNKNOWN, OR SCHEDULING Primary Care Provider Jennifer Snehal Real Admitting Physician Allergies, Adverse Reactions, Alerts Allergen Type Severity Reaction Last Updated Verified Status Cephalosporins Allergy Mild SOB, RASH November 29, 2011 Y Ac tive polyethylene glycol Allergy Anaphylaxis February 06, 2022 Y Active Sulfa (Sulfonamide Antibiotics) Adverse Reaction Mild RASH November 29, 2011 Y Active fentanyl Adverse Reaction Unknown February 06, 2022 Y Active Medications Active Medications Medication Dose Units Route Sig Qty Start Date Status Instructions Fluticasone Propion-Salmeter ol [Advair Diskus] 1 INH Inhalation Two times per day February 06, 2022 Active Atorvastatin 1 TAB Oral Bedtime February 06, 2022 Active Prednisone TAB Oral As needed February 06, 2022 Active Fexofenadine [Lyssa] 180 MG Oral Daily February 06, 2022 Active Hydromorphone 0.5 - 1 TAB Oral Q6H PRN For pain February 06, 2022 Active Ondansetron 1 TAB Oral Q6H PRN For nausea/vomit ing February 06, 2022 Active Duloxetine 2 CAP Oral February 06, 2022 Active Lorazepam [Ativan] 1 MG Oral Three times per day PRN For sphincter spasms 15 February 06, 2022 Active Naloxone [Narcan] 4 MG Intranasal Q2M PRN For opioid overdose 2 February 06, 2022 Active spray 1 dose into ONE nostril; alternate nostrils w each dose until help arrives Problem List Active Problems Medical Problem Onset Date Status History of ERCP Active Frequent UTI Active History of cholecystectomy Activ e History of appendectomy Active Dysfunctional sphincter of Oddi Active Asthma Active Procedures Procedure Date Status US abdomen limited/quadrant February 06, 2022 comp leted Relevant Diagnostic Tests and/or Laboratory Data Laboratory Results Test Date/Time Result Interp. Ref. Range Result Co mment White Blood Count February 06, 2022 10:48am 6.8 K/uL 3.5-11.0 Red Blood Count February 06, 2022 10:48am 4.92 M/uL 3.80-5.20 Hemoglobin February 06, 2022 10:48am 13.9 g/dL 11.7-15.7 Hematocrit February 06, 2022 10:48am 40.9 % 35.0-47.0 Mean Corpuscular Volume February 06, 2022 10:48am 83.1 fl 80.0-100.0 Mean Corpuscular Hemoglobin February 06, 2022 10:48am 28.3 pg 27.0-34.0 Mean Corpuscular Hgb Concent Diff February 06, 2022 10:48am 34.0 g/dl 31.0-36.0 Red Cell Distribution Width February 06, 2022 10:48am 12.5 % 11.5-15.0 Platelet Count February 06, 2022 10:48am 378 K/uL 150-450 Mean Platelet Volume February 06, 2022 10:48am 8.9 fL Low 9.1-12.4 Absolute Neutrophils (auto) February 06, 2022 10:48am 4.4 K/uL 1.3-8.8 Absolute Immature Granulocyte (auto February 06, 2022 10:48am 0.00 k/uL 0.00-0.07 Absolute Lymphocytes (auto) February 06, 2022 10:48am 1.8 K/uL 0.3-5.0 Absolute Monocytes (auto) February 06, 2022 10:48am 0.4 K/uL 0.1-1.3 Absolute Eosinophils (auto) February 06, 2022 10:48am 0.1 K/uL 0.0-0.8 Absolute Basophils (auto) February 06, 2022 10:48am 0.1 K/uL 0.0-0.5 Lactic Acid Level February 06, 2022 10:48am 1.10 mmo/L 0.40-2.00 This test has been performed on a method that has not been fully approved by the FDA. Please consider the patient's signs, symptoms, history, and results of other diagnostic tests when interpreting these results. If the results do not match the patient's clinical presentation, the sample should be sent to [facility] for testing with an alternate method. Sodium Level February 06, 2022 10:48am 138 mmol/L 136-145 Potassium Level February 06, 2022 10:48am 4.3 mmol/L 3.5-5.1 Chloride Level February 06, 2022 10:48am 104 mmol/L 98-107 Carbon Dioxide Level February 06, 2022 10:48am 25 mmol/L 21-32 Anion Gap February 06, 2022 10:48am 9 5-15 Glucose Level February 06, 2022 10:48am 107 mg/dL High 60-99 Blood Urea Nitrogen February 06, 2022 10:48am 12 mg/dL 7-24 Creatinine February 06, 2022 10:48am 1.0 mg/dL 0.7-1.2 Estimat Glomerular Filtration Rate February 06, 2022 10:48am > 60 Race: Reference Units: mL/min/1.73m2 *Calculated using the MDRD equation* In EMR click on external links for further EGFR information. Calcium Level February 06, 2022 10:48am 9.0 mg/dL 8.3-10.7 Albumin February 06, 2022 10:48am 4.3 g/dL 3.7-5.2 Total Protein February 06, 2022 10:48am 7.7 g/dL 6.0-8.0 Alkaline Phosphatase February 06, 2022 10:48am 53 U/L 50-136 Aspartate Amino Transf (AST/SGOT) February 06, 2022 10:48am 21 U/L 10-40 Alanine Aminotransferase February 06, 2022 10:48am 40 U/L 12-78 Total Bilirubin February 06, 2022 10:48am 0.4 mg/dL 0.2-1.0 Lipase February 06, 2022 10:48am 208 U/L 114-286 Urine HCG, Qualitative February 06, 2022 11:04am Negative The sensitivity of this method is 10 mIU/mL for serum or 20 mIU/L for urine. In normal , hCG levels in urine can reach 25 mIU/L as early as 7 to 10 days post-conception. Urine Collection Type February 06, 2022 11:36am Clean void-midstrea m Urine Color February 06, 2022 11:36am Yellow Urine Appearance February 06, 2022 11:36am Clear Urine Specific [place] February 06, 2022 11:36am 1.025 Urine pH February 06, 2022 11:36am 6.0 Urine Glucose (UA) February 06, 2022 11:36am Negative Negative Urine Blood February 06, 2022 11:36am Negative Negative Urine Bilirubin February 06, 2022 11:36am Negative Negative Urine Ketones February 06, 2022 11:36am Negative mg/dL Negative Urine Protein February 06, 2022 11:36am Negative mg/dL Negative Urine Urobilinogen February 06, 2022 11:36am 0.2 EU/dL 0.2-1.0 Urine Nitrite February 06, 2022 11:36am Negative Negative Urine Leukocyte Esterase February 06, 2022 11:36am Negative Negative Chief Complaint and Reason for Visit Encounter Admit Date Chief Complaint Reason for V isit Registered Emergency February 06, 2022 10:20am [facility] Discharge Instructions Additional Discharge Instructions Please return to ER for increased vomiting, fevers, or worse. Please follow up with your home physician. Instruction/Education Provided Abdominal Pain (ED) Hospital Discharge Medications Medication Dose Units Route Sig Qty Days Order Date Status Instructions Fluticasone Propion-Salmete rol 1 INH Inhalation Two times per day February 06, 2022 Active Atorvastatin 1 TAB Oral Bedtime Jan Active Prednisone TAB Oral As needed Jan Active Fexofenadine 180 MG Oral Daily Jan Active Hydromorphone 0.5 - 1 TAB Oral Q6H PRN For pain February 06, 2022 Active Ondansetron 1 TAB Oral Q6H PRN For nausea/vomi ting February 06, 2022 Active Duloxetine 2 CAP Oral February 06, 2022 Active Lorazepam 1 MG Oral Three times per day PRN For sphincter spasms 15 February 06, 2022 Active Naloxone 4 MG Intranasal Q2M PRN For opioid overdose 2 February 06, 2022 Active spray 1 dose into ONE nostril; alternate nostrils w each dose until help arrives Encounters Encounter Facility Location Admit/Visit Date Discharge/Departure Date Attending Provider Registered Emergency [facility] Emergency Department LH February 06, 2022 10:20am Functional Status No known functional status. Immunizations No known immunizations. Plan of Care Instructions Abdominal Pain (ED) Social History Query Response Start Date Stop Date Smoking Status Never smoker Vital Signs Vital Reading Result Reference Range Collection Date/Time Height 167.64 cm February 06, 2022 1 0:23am Weight 97.522 kg February 06, 2022 1 0:23am Pulse 96 BPM 60-100 February 06, 2022 1 0:23am Respiration 16 RPM 12-20 February 06, 2022 1 0:23am Pulse Oximetry 97 % 88-100 February 06, 2022 11:31am Blood Pressure Systolic 122 95-135 February 06, 2022 11:31am Blood Pressure Diastolic 79 55-85 Jan 11:31am
--- OUTSIDE RECORDS SUMMARY | 2024-07-14 18:26 | XMS_ITS | Continuity of Care Document ---
Author Name [facility] Address [address] [place] [address] Organization [facility] Address [address] [place] [address] Care Team Providers Care Engine Inspector Name Role Phone UNKNOWN, OR SCHEDULING Primary [...] presentation, the sample should be sent to [facility] for testing with an alternate method. [...] February 06, 2022 11:36am Clear Urine Specific [place] February 06, 2022 11:36am 1.025 Urine pH [...] Date Chief Complaint Reason for V isit Departed Emergency February 06, 2022 10:20am Stomach Pain Hospital Discharge Instructions Additional Discharge Instructions Please [...] Location Admit/Visit Date Discharge/Departure Date Attending Provider Departed Emergency [facility] Emergency Department February 06, 2022 10:20am February 06, 2022 1:04pm Functional Status No known functional status. Immunizations [...] Oximetry 97 % 88-100 February 06, 2022 12:46pm Blood Pressure Systolic 132 95-135 February 06, 2022 12:46pm Blood Pressure Diastolic 95 55-85 Jan 12:46pm
[2024-07-14 18:36] VITALS: BP 126/79; PULSE 114; RESP 14; TEMP 36.7; O2SAT 98; BMI 35.0
[2024-07-14 19:59] VITALS: BP 138/85; PULSE 114; RESP 16; O2SAT 98
[2024-07-14] MEDS: ONDANSETRON 2 MG/ML inj 4 MG IVP (20:23)
[2024-07-14] MEDS: 0.9 % SODIUM CHLORIDE 1000 ml 1,000 ML IV ×2 (20:23→22:50)
[2024-07-14] MEDS: HYDROmorphone 0.5 mg/0.5 ml inj 1 MG IVP ×2 (20:23→23:20)
[2024-07-14] MEDS: KETOROLAC 30 MG/ML inj 15 MG IVP (20:24)
[2024-07-14 20:27] LABS: Lactate* 1.7 mmol/L (0.5-1.9)
[2024-07-14 20:31] LABS: Basophils Absolute Auto 0.06 K/uL (0.00-0.30); Basophils Percent Auto 0.7 % (0.0-3.0); Eosinophils Absolute Auto 0.18 K/uL (0.00-0.50); Eosinophils Percent Auto 2.1 % (0.0-7.0); Hematocrit 38.3 % (33.0-51.0); Hemoglobin* 13.1 gm/dL (12.0-16.0); Immature Granulocytes Abs Auto 0.02 K/uL (0.00-0.30); Immature Granulocytes Pct Auto 0.2 %; Lymphocytes Absolute Auto 2.41 K/uL (0.90-2.90); Lymphocytes Percent Auto 27.9 % (20-44); Mean Corpuscular HGB Conc 34 gm/dL (32-36); Mean Corpuscular Hemoglobin 28 pg (26-34); Mean Corpuscular Volume 83 fL (80-100); Monocytes Percent Auto 7.4 % (0.0-11.0); Neutrophils Absolute Auto 5.33 K/uL (1.7-7.0); Neutrophils Percent Auto 61.7 % (42.0-72.0); Platelet Count* 331 K/uL (140-440); RDW Coefficient of Variation % 12.8 % (11.5-15.5); Red Blood Count 4.64 m/uL (4.00-5.20); White Blood Count* 8.64 K/uL (4.50-11.00)
--- NOTE | 2024-07-14 20:32 | ED_ITS ---
HPI - Abdominal Pain General Date Seen: 07/14/24 Chief Complaint: Abdominal Pain Stated Complaint: Abdominal pain, nausea Time Seen by Provider: 07/14/24 19:48 Source: patient and family Mode of arrival: ambulatory Limitations: no limitations History of Present Illness HPI narrative: Patient is a very nice 43-year-old female with a history of chronic pancreatitis with sphincter of Oddi dysfunction, [facility] 20 through July 02. There was talk of her getting another stent in her pancreas, but in the end they did not do this they did however give her a splanchnic block, which helped her pain temporarily. Over the past 48 hours her pain is increased, with nausea. She has tried oral medications of oxycodone and Dilaudid at home but inability to get comfortable. She also thinks her fluid intake is decreased. She has felt chills but no overt fever, she presents with her partner, for evaluation tonight. 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 She was last imaged on her hospitalization earlier in the month, she did not have any pancreatic cysts or any other significant abnormality noted. Lots of imaging has been done in the past MD elicited complaint: abdominal pain Related Data Home Medications ?Medication ?Instructions ?Recorded ?Confirmed albuterol sulfate 90 mcg/actuation 2 puff inhalation QID PRN 02/11/22 07/14/24 aerosol inhaler shortness of breath or wheezing epinephrine 0.3 mg/0.3 mL 0.3 mg IM ONCE PRN allergies 04/06/23 07/14/24 injection, auto-injector duloxetine 30 mg capsule,delayed 120 mg PO DAILY 04/29/23 07/14/24 release hyoscyamine sulfate 0.125 mg 0.125 mg PO TID PRN 04/29/23 07/14/24 sublingual tablet diphenhydramine HCl 25 mg capsule 50 mg PO DAILY PRN 11/29/23 07/14/24 (Benadryl) atorvastatin 40 mg tablet 40 mg PO DAILY 11/30/23 07/14/24 cetirizine 5 mg tablet 5 mg PO QAM 11/30/23 07/14/24 fexofenadine 180 mg tablet 180 mg PO BID 11/30/23 07/14/24 hydromorphone 2 mg tablet 4 mg PO Q6H PRN 11/30/23 07/14/24 omega 0-imq-sjb-fish oil 1,000 mg 1 cap PO QAM 11/30/23 07/14/24 (120 mg-180 mg) capsule (Fish Oil) ondansetron 4 mg disintegrating 4 mg PO Q6H PRN 11/30/23 07/14/24 tablet Creon 07/14/24 Trazadone 50 mg 07/14/24 bupropion HCl 300 mg 24 hr tablet, 300 mg PO DAILY 07/14/24 07/14/24 extended release moxifloxacin 0.5 % eye drops 1 drp ophthalmic (eye-right) Q2H 07/14/24 07/14/24 omeprazole 20 mg capsule,delayed 20 mg PO DAILY 07/14/24 07/14/24 release oxycodone 5 mg capsule 5 mg PO Q4-6H PRN 07/14/24 07/14/24 prazosin 2 mg capsule 2 mg PO BID 07/14/24 07/14/24 quetiapine 07/14/24 quetiapine 400 mg tablet (Seroquel) 400 mg PO DAILY 07/14/24 07/14/24 Allergies Allergy/AdvReac Type Severity Reaction Status Date / Time polyethylene glycol Allergy Anaphylaxis Verified 07/14/24 18:48 fentanyl AdvReac pain Verified 07/14/24 18:48 Review of Systems Status of ROS Reports: 10 or more systems reviewed and unremarkable except as noted in History and below [facility] Medical History Post-ERCP acute pancreatitis ?K91.89 - Other postprocedural complications and disorders of digestive system (ICD-10) ?K85.90 - Acute pancreatitis without necrosis or infection, unspecified (ICD- 10) Chronic, continuous use of opioids ?F11.90 - Opioid use, unspecified, uncomplicated (ICD-10) Acute pancreatitis ?K85.90 - Acute pancreatitis without necrosis or infection, unspecified (ICD- 10) Chronic pain ?G89.29 - Other chronic pain (ICD-10) 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 - Mast cell activation, unspecified (ICD-10) Sphincter of Oddi spasm ?K83.4 - Spasm of sphincter of Oddi (ICD-10) Sphincter of Oddi dysfunction (Unknown) ?K83.4 - Spasm of sphincter of Oddi (ICD-10) Surgical History S/P ERCP ?Z98.890 - Other specified postprocedural states (ICD-10) History of tonsillectomy and adenoidectomy ?Z90.89 - Acquired absence of other organs (ICD-10) Hx of appendectomy ?Z90.49 - Acquired absence of other specified parts of digestive tract (ICD- 10) Hx laparoscopic cholecystectomy ?Z90.49 - Acquired absence of other specified parts of digestive tract (ICD- 10) History of sphincterotomy of sphincter of Oddi ?Z98.890 - Other specified postprocedural states (ICD-10) Family History Sister Danika's disease Sister Raynaud phenomenon Mother Rheumatoid arthritis Erythema multiforme Social History Narrative: 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 Does not drink alcohol or use recreational drugs. Getting medical care through [facility] in [place]. What is your current living situation?: I presently have a place to live Problems where you live: no known problems Problems where you live details: none noted In the past 12 months, utilities in danger of being shut off: no In past 12 months, lack of transportation kept you from medical appts, meetings, work, or getting things needed for daily living: no In the past 12 mos, have been you worried that your food would run out before you had money to buy more?: never true In the past 12 mos, the food you bought just didn't last and you didn't have money to buy more?: never true Highest level of school completed/degree received: Bachelor's degree Smoking Status: Former smoker What tobacco products do you use: cigarettes Smoking quit date/years: <= 15 years ago Do you use any of these nicotine containing products: Vaping Products Second hand tobacco smoke exposure: No How often do you have a drink containing alcohol: never How often do you have six or more drinks on one occasion: Never AUDIT-C Alcohol total score: 0 Non-prescribed substance use: denies use Caffeine: Yes How often does anyone, including family, friends and others, physically hurt you : never How often does anyone, including family, friends and others, insult or talk down to you: never How often does anyone, including family, friends and others, threaten you with harm: never How often does anyone, including family, friends and others, scream or curse at you: never service: Yes Exam Narrative: Exam Narrative: On examination in room 6 she is in no apparent distress she is pleasant and alert, she appears however to be in some discomfort. Pupils equal round reactive to light there is no scleral icterus redness TMs normal oropharynx normal her neck is supple good air entry is noted bilaterally no wheezing crackles noted, there is no lymphadenopathy anterior posterior chains cranial nerves are normal. 3-12. Her heart sounds are normal no clicks murmurs or gallops her abdomen is tender, but not peritoneal. Her bowel sounds are quiet. There is no organomegaly she moves all extremities independently and well, with no petechiae rashes or edema. Const: Vital Signs, click to edit/add: Vital Signs - 24 hr 07/14/24 18:36 07/14/24 19:59 Temperature 98.1 F Pulse Rate [Pulse Oximeter] 114 H 114 H Respiratory Rate 14 16 Blood Pressure [Ri ght Upper Arm] 126/79 138/85 Pulse Oximetry 98 98 Oxygen Delivery Me thod Room Air Room Air Course Vital Signs Vital signs: Initial Vital Signs Temperature 98.1 F 07/14/24 18:36 Temperature Source Temporal Artery Scan 07/14/24 18:36 Pulse Rate 114 H 07/14/24 18:36 Respiratory Rate 14 07/14/24 18:36 Blood Pressure 126/79 07/14/24 18:36 Blood Pressure Mean 94 07/14/24 18:36 Blood Pressure Position Sitting 07/14/24 18:36 Pulse Oximetry 98 07/14/24 18:36 Oxygen Delivery Method Room Air 07/14/24 18:36 Vital Signs Temperature 98.1 F 07/14/24 18:36 Pulse Rate 114 H 07/14/24 18:36 Respiratory Rate 14 07/14/24 18:36 Blood Pressure 126/79 07/14/24 18:36 Pulse Oximetry 98 07/14/24 18:36 Oxygen Delivery Method Room Air 07/14/24 18:36 Temperature 98.1 F 07/14/24 18:36 Pulse Rate 114 H 07/14/24 19:59 Respiratory Rate 16 07/14/24 19:59 Blood Pressure 138/85 07/14/24 19:59 Pulse Oximetry 98 07/14/24 19:59 Oxygen Delivery Method Room Air 07/14/24 19:59 Medications Administered Medications: Generic Name Dose Route Start Last Admin Trade Name Freq PRN Reason Stop Dose Admin Sodium Chloride 1,000 mls @ 1,000 mls/hr 07/14/24 20:15 07/14/24 20:23 0.9 % Sodium Chloride 1000 Ml IV 07/14/24 21:14 1,000 mls/hr .Q1H ALLYSSA Administration Discontinued Medications Generic Name Dose Route Start Last Admin Trade Name Freq PRN Reason Stop Dose Admin Hydromorphone HCl 1 mg 07/14/24 20:01 07/14/24 20:23 Hydromorphone 0.5 Mg/0.5 Ml Inj IVP 07/14/24 20:02 1 mg ONCE ONE Administration Ketorolac Tromethamine 15 mg 07/14/24 20:01 07/14/24 20:24 Ketorolac 30 Mg/Ml Inj IVP 07/14/24 20:02 15 mg ONCE ONE Administration Ondansetron HCl 4 mg 07/14/24 20:01 07/14/24 20:23 Ondansetron 2 Mg/Ml Inj IVP 07/14/24 20:02 4 mg ONCE ONE Administration MDM - Abdominal Pain MDM Narrative Medical decision making narrative: During the evaluation of this patient I considered multiple differential diagnosis including life-threatening differentials which are appendicitis, aortic aneurysm, mesenteric ischemia, bowel perforation, ectopic , volvulus and bowel obstruction, other differential diagnosis include but are not limited to inflammatory bowel disease, cholecystitis, pancreatitis, hepatitis, gastritis, GERD, diverticulitis, peptic ulcer disease, pyelonephritis/UTI, renal colic/stone, pelvic inflammatory disease, cervicitis, endometritis, intrauterine , dysfunctional uterine bleeding, ovarian cyst/torsion, spontaneous as well as other etiologies At this point I do not think we will image her, given her presentation is consistent with previous presentations for her pain pattern, I will however do labs, for her and give her some IV Dilaudid along with Zofran and fluids. I will consult Hospital Medicine consult think it is likely that will need to admit her, given that it is the evening of . Medical Records Attestation: I reviewed the patient's medical records. Lab Data Labs: Lab Results 07/14/24 Range/Units 20:21 WBC 8.64 (4.50-11.00) K/uL RBC 4.64 (4.00-5.20) m/uL Hgb 13.1 (12.0-16.0) gm/dL Hct 38.3 (33.0-51.0) % MCV 83 (80-100) fL MCH 28 (26-34) pg MCHC 34 (32-36) gm/dL RDW Coeff of Declan 12.8 (11.5-15.5) % Plt Count 331 (140-440) K/uL Neut % (Auto) 61.7 (42.0-72.0) % Lymph % (Auto) 27.9 (20-44) % Mccormick % (Auto) 7.4 (0.0-11.0) % Eos % (Auto) 2.1 (0.0-7.0) % Baso % (Auto) 0.7 (0.0-3.0) % Neut # (Auto) 5.33 (1.7-7.0) K/uL Lymph # (Auto) 2.41 (0.90-2.90) K/uL Mccormick # (Auto) 0.60 (0.00-0.90) K/UL Eos # (Auto) 0.18 (0.00-0.50) K/uL Baso # (Auto) 0.06 (0.00-0.30) K/uL Abs Immat Gran (auto) 0.02 (0.00-0.30) K/uL Imm/Tot Granulo (auto) 0.2 % Sodium 136 (135-149) mmol/L Potassium 4.5 (3.6-5.1) mmol/L Chloride 105 (96-114) mmol/L Carbon Dioxide 21 (20-32) mmol/L Anion Gap 10 (7-15) mEq/L BUN 6 (5-24) mg/dL Creatinine 0.9 (0.5-1.5) mg/dL Estimated Creat Clear 74.67 Estimated GFR 81 ml/min Glucose 102 (60-115) mg/dL Lactate 1.7 (0.5-1.9) mmol/L Calcium 9.1 (8.4-10.6) mg/dL Total Bilirubin 1.1 (0.1-1.5) mg/dL Direct Bilirubin 0.7 H (0.0-0.5) mg/dL AST 43 H (12-35) U/L ALT 49 H (4-35) U/L Alkaline Phosphatase 38 L (40-150) U/L Total Protein 7.8 (6.0-8.3) g/dL Albumin 4.7 (3.3-5.0) g/dL Amylase 171 H (18-89) U/L Lipase 1212 H (23-300) U/L Lipase is elevated at 12 12, consistent with pancreatitis, she will be admitted to the inpatient service, for NPO IV fluids and pain medication Discharge Plan Discharge Clinical Impression: Sphincter of Oddi dysfunction, Acute on chronic pancreatitis Abdominal pain Qualifiers: Abdominal location: upper abdomen, unspecified Qualified Code(s): R10.10 - Upper abdominal pain, unspecified Patient Disposition: Admitted As Observation Condition: Stable Activity Level: Light activity Discharge Diet: Other
[2024-07-14 20:34] LABS: Slide Review Reflex No
[2024-07-14 20:44] LABS: Chloride* 105 mmol/L (96-114); Sodium* 136 mmol/L (135-149)
[2024-07-14 20:45] LABS: Albumin* 4.7 g/dL (3.3-5.0); Potassium* 4.5 mmol/L (3.6-5.1)
[2024-07-14 20:47] LABS: Amylase* 171 U/L (18-89); Anion Gap 10 mEq/L (7-15); Blood Urea Nitrogen* 6 mg/dL (5-24); Carbon Dioxide* 21 mmol/L (20-32); Creatinine* 0.9 mg/dL (0.5-1.5); Est. Creatinine Clearance* 74.67; Estimated Glomerular Filt Rate 81 ml/min; Glucose* 102 mg/dL (60-115)
[2024-07-14 20:48] LABS: Alkaline Phosphatase* 38 U/L (40-150); Aspartate Amino Transferase* 43 U/L (12-35); Bilirubin Direct* 0.7 mg/dL (0.0-0.5); Bilirubin Total* 1.1 mg/dL (0.1-1.5); Calcium* 9.1 mg/dL (8.4-10.6); Total Protein* 7.8 g/dL (6.0-8.3)
[2024-07-14 20:49] LABS: Alanine Aminotransferase* 49 U/L (4-35); Lipase* 1212 U/L (23-300)
[2024-07-14 21:12] LABS: C Reactive Protein* < 0.5 mg/dL (0.5-1.0)
--- NOTE | 2024-07-14 21:13 | P.IMHP_ITS ---
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 Recently hospitalized at the [facility] from 06/20/2024 through 07/02/2024 with similar presentation. Imaging demonstrated pancreatic duct dilatation on presentation which improved by time of discharge. Treated with IV fluids, analgesics, antiemetics. They were on the verge of initiating TPN when patient's symptoms started to improve and she was started on clear liquids and then advanced her diet to solids at time of discharge. On date of discharge she had a nerve block again. Part of the plan is to refer to the [facility] GI endoscopy specialists in the near future. At discharge continue to have some discomfort but much improved from previously. Last couple of days pain has increased, appetite has decreased, nausea has increased, has hardly slept at all due to these symptoms. Pain is described as constantly doll with intermittent sharp stabbing pains. Has had very little oral intake. Has tried to drink but unable to keep it up due to the nausea. Uses Creon when dries to eat. Has been using Creon for the past 2+ months which has decreased postprandial diarrhea considerably. Denies fevers. Does have intermittent chills. No exposure to COVID or influenza that she is aware of. No other localizing symptoms. Last normal menstrual period was latter part of May 2024. Up until recent hospitalization had been hardly using any opioids whatsoever for about 2 months. Review of Systems Status of ROS: Reports: 6 or more systems reviewed and unremarkable except as noted in History and below [facility] Medical History Post-ERCP acute pancreatitis ?K91.89 - Other postprocedural complications and disorders of digestive system (ICD-10) ?K85.90 - Acute pancreatitis without necrosis or infection, unspecified (ICD- 10) Chronic, continuous use of opioids ?F11.90 - Opioid use, unspecified, uncomplicated (ICD-10) Acute pancreatitis ?K85.90 - Acute pancreatitis without necrosis or infection, unspecified (ICD- 10) Chronic pain ?G89.29 - Other chronic pain (ICD-10) 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 - Mast cell activation, unspecified (ICD-10) Sphincter of Oddi spasm ?K83.4 - Spasm of sphincter of Oddi (ICD-10) Sphincter of Oddi dysfunction (Unknown) ?K83.4 - Spasm of sphincter of Oddi (ICD-10) Surgical History S/P ERCP ?Z98.890 - Other specified postprocedural states (ICD-10) History of tonsillectomy and adenoidectomy ?Z90.89 - Acquired absence of other organs (ICD-10) Hx of appendectomy ?Z90.49 - Acquired absence of other specified parts of digestive tract (ICD- 10) Hx laparoscopic cholecystectomy ?Z90.49 - Acquired absence of other specified parts of digestive tract (ICD- 10) History of sphincterotomy of sphincter of Oddi ?Z98.890 - Other specified postprocedural states (ICD-10) Family History Sister Danika's disease Sister Raynaud phenomenon Mother Rheumatoid arthritis Erythema multiforme Social History Narrative: 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 Does not drink alcohol or use recreational drugs. Getting medical care through [facility] in [place]. What is your current living situation?: I presently have a place to live Problems where you live: no known problems Problems where you live details: none noted In the past 12 months, utilities in danger of being shut off: no In past 12 months, lack of transportation kept you from medical appts, meetings, work, or getting things needed for daily living: no In the past 12 mos, have been you worried that your food would run out before you had money to buy more?: never true In the past 12 mos, the food you bought just didn't last and you didn't have money to buy more?: never true Highest level of school completed/degree received: Bachelor's degree Smoking Status: Former smoker What tobacco products do you use: cigarettes Smoking quit date/years: <= 15 years ago Do you use any of these nicotine containing products: Vaping Products Second hand tobacco smoke exposure: No How often do you have a drink containing alcohol: never How often do you have six or more drinks on one occasion: Never AUDIT-C Alcohol total score: 0 Non-prescribed substance use: denies use Caffeine: Yes How often does anyone, including family, friends and others, physically hurt you : never How often does anyone, including family, friends and others, insult or talk down to you: never How often does anyone, including family, friends and others, threaten you with harm: never How often does anyone, including family, friends and others, scream or curse at you: never service: Yes Meds Home Medications and Allergies Home Medications ?Medication ?Instructions ?Recorded ?Confirmed ?Type albuterol sulfate 90 mcg/actuation 2 puff inhalation QID PRN 02/11/22 07/14/24 History aerosol inhaler shortness of breath or wheezing epinephrine 0.3 mg/0.3 mL 0.3 mg IM ONCE PRN allergies 04/06/23 07/14/24 History injection, auto-injector duloxetine 30 mg capsule,delayed 120 mg PO DAILY 04/29/23 07/14/24 History release hyoscyamine sulfate 0.125 mg 0.125 mg PO TID PRN 04/29/23 07/14/24 History sublingual tablet diphenhydramine HCl 25 mg capsule 50 mg PO DAILY PRN 11/29/23 07/14/24 History (Benadryl) atorvastatin 40 mg tablet 40 mg PO DAILY 11/30/23 07/14/24 History cetirizine 5 mg tablet 5 mg PO QAM 11/30/23 07/14/24 History fexofenadine 180 mg tablet 180 mg PO BID 11/30/23 07/14/24 History hydromorphone 2 mg tablet 4 mg PO Q6H PRN 11/30/23 07/14/24 History omega 7-yol-hcy-fish oil 1,000 mg 1 cap PO QAM 11/30/23 07/14/24 History (120 mg-180 mg) capsule (Fish Oil) ondansetron 4 mg disintegrating 4 mg PO Q6H PRN 11/30/23 07/14/24 History tablet Creon 07/14/24 History Trazadone 50 mg 07/14/24 History bupropion HCl 300 mg 24 hr tablet, 300 mg PO DAILY 07/14/24 07/14/24 History extended release moxifloxacin 0.5 % eye drops 1 drp ophthalmic (eye-right) Q2H 07/14/24 07/14/24 History omeprazole 20 mg capsule,delayed 20 mg PO DAILY 07/14/24 07/14/24 History release oxycodone 5 mg capsule 5 mg PO Q4-6H PRN 07/14/24 07/14/24 History prazosin 2 mg capsule 2 mg PO BID 07/14/24 07/14/24 History quetiapine 07/14/24 History quetiapine 400 mg tablet (Seroquel) 400 mg PO DAILY 07/14/24 07/14/24 History Allergies Allergy/AdvReac Type Severity Reaction Status Date / Time polyethylene glycol Allergy Anaphylaxis Verified 07/14/24 18:48 fentanyl AdvReac pain Verified 07/14/24 18:48 Exam Narrative: Exam Narrative: I examined patient in the emergency department with her at her side. Appears uncomfortable. Diaphoretic. Vision and hearing are adequate. Nevertheless cooperative and friendly. Articulate. Alert and oriented x4. External auditory canals and tympanic membranes are normal. Mucous membranes are dry. Dentition in good repair. Midline nasal septum. No icterus. No jaundice. No petechiae. No cyanosis. No skin lesions. Midline trachea. Neck is supple. No head neck lymphadenopathy. Lungs clear to auscultation without wheezing, rhonchi, or rales. No CVA tenderness. Heart tones with regular rhythm, normal S1-S2. Heart rate about 110. No mu rmur, gallop, rub. PMI not laterally displaced. Abdomen with active bowel sounds. Subjective discomfort to palpation epigastrium. No rebound or guarding. Moves all 4 extremities. Cranial nerves 3-12 grossly normal. No focal motor neurologic deficits. Independent transfer, station, and gait. Palpable pulses upper and lower extremities. Lipase is 1200. Amylase also elevated. Const: Vital Signs, click to edit/add: Vital Signs - 24 hr 07/14/24 18:36 07/14/24 19:59 Temperature 98.1 F Pulse Rate [Pulse Oximeter] 114 H 114 H Respiratory Rate 14 16 Blood Pressure [Ri ght Upper Arm] 126/79 138/85 Pulse Oximetry 98 98 Oxygen Delivery Me thod Room Air Room Air Hospitalist - H&P: Result Labs Labs: Short CBC 07/14/24 Range/Units 20:21 WBC 8.64 (4.50-11.00) K/uL Hgb 13.1 (12.0-16.0) gm/dL Hct 38.3 (33.0-51.0) % Plt Count 331 (140-440) K/uL BMP 07/14/24 20:21 Sodium 136 Potassium 4.5 Chloride 105 Carbon Dioxide 21 BUN 6 Creatinine 0.9 Glucose 102 Calcium 9.1 Liver Function 07/14/24 Range/Units 20:21 Total Bilirubin 1.1 (0.1-1.5) mg/dL Direct Bilirubin 0.7 H (0.0-0.5) mg/dL AST 43 H (12-35) U/L ALT 49 H (4-35) U/L Alkaline Phosphatase 38 L (40-150) U/L Albumin 4.7 (3.3-5.0) g/dL Assessment and Plan Assessment and plan (1) Acute on chronic pancreatitis: Problem comment: -clear liquids as tolerated -IV fluids, analgesics, antiemetics -monitor labs -patient indicates that if it appears as though she will be in the hospital for an extended period of time that she prefers to be transferred to the [facility] Status: Acute (2) Abdominal pain: Problem comment: -Acute abdominal pain likely related to her pancreatitis and sphincter of Oddi dysfunction. Lipase, transaminases, and direct bilirubin elevated. Status: Acute (3) Sphincter of Oddi dysfunction: Problem comment: History of recurrent ERCP and stenting and sphincterotomy. [facility] Status: Acute (4) Dehydration: Status: Acute Plan 1. Reviewed impression, recommendations, plans with patient and . 2. Answered their questions. 3. The agreeable with above stated plans and recommendations Total Time Spent Total Time Spent: 65 minutes
[2024-07-14 21:26] LABS: Ethanol* < 0.01 % (0.01-0.03)
[2024-07-14 21:30] LABS: Appearance Urine Cloudy (Clear); Bilirubin Urine Negative (Negative); Blood Urine Negative (Negative); Color Urine Yellow (Yellow); Glucose Urine Negative (Negative); Ketones Urine Negative (Negative); Leukocyte Esterase Urine Negative (Negative); Nitrite Urine Negative (Negative); Protein Urine Negative (Negative); Urobilinogen Urine 0.2 (0.2-1.0)
[2024-07-14 21:34] VITALS: BP 127/77; PULSE 99; RESP 18; TEMP 36.8; O2SAT 97; BMI 36.2
[2024-07-14 21:47] LABS: RBC Urine 0-2 (0-2)
[2024-07-14 21:48] LABS: Bacteria Urine Moderate; Squamous Epithelial Cell Urine Moderate (None-Few)
[2024-07-14] MEDS: FEXOFENADINE 180 MG TABLET PO (22:46)
[2024-07-14] MEDS: TRAZODONE HCL 50 MG TABLET PO (22:48)
[2024-07-14] MEDS: QUETIAPINE 100 MG TABLET 300 MG PO (22:48)
[2024-07-14 23:00] VITALS: BP 105/66; PULSE 96; RESP 18; TEMP 36.7; O2SAT 94
[2024-07-14] MEDS: ACETAMINOPHEN 325 MG TABLET 650 MG PO (23:04)
[2024-07-14] MEDS: PRAZOSIN HCL 1 MG CAPSULE 4 MG PO (23:26)
[2024-07-15 03:00] VITALS: BP 103/68; PULSE 84; RESP 18; TEMP 36.4; O2SAT 97
[2024-07-15 07:19] LABS: Lactate* 0.9 mmol/L (0.5-1.9)
[2024-07-15 07:20] LABS: Hematocrit 32.4 % (33.0-51.0); Hemoglobin* 10.9 gm/dL (12.0-16.0); Mean Corpuscular HGB Conc 34 gm/dL (32-36); Mean Corpuscular Hemoglobin 28 pg (26-34); Mean Corpuscular Volume 84 fL (80-100); Platelet Count* 254 K/uL (140-440); Red Blood Count 3.88 m/uL (4.00-5.20); White Blood Count* 4.76 K/uL (4.50-11.00)
[2024-07-15] MEDS: HYDROmorphone 0.5 mg/0.5 ml inj 1 MG IVP ×3 (07:20→11:31)
[2024-07-15 07:37] LABS: Slide Review Reflex No
[2024-07-15 07:38] LABS: Albumin* 3.3 g/dL (3.3-5.0); Chloride* 110 mmol/L (96-114)
[2024-07-15 07:39] LABS: Potassium* 3.5 mmol/L (3.6-5.1); Sodium* 136 mmol/L (135-149)
[2024-07-15 07:41] LABS: Anion Gap 4 mEq/L (7-15); Bilirubin Direct* 0.2 mg/dL (0.0-0.5); Bilirubin Total* 0.7 mg/dL (0.1-1.5); Carbon Dioxide* 22 mmol/L (20-32); Est. Creatinine Clearance* 67.21; Estimated Glomerular Filt Rate 71 ml/min; Total Protein* 5.6 g/dL (6.0-8.3)
[2024-07-15 07:42] LABS: Alanine Aminotransferase* 36 U/L (4-35); Alkaline Phosphatase* 41 U/L (40-150); Aspartate Amino Transferase* 18 U/L (12-35); Blood Urea Nitrogen* 6 mg/dL (5-24); Calcium* 7.8 mg/dL (8.4-10.6); Cholesterol* 151 mg/dL (90-199); Glucose* 105 mg/dL (60-115); Lipase* 570 U/L (23-300); Magnesium* 1.7 mg/dL (1.5-2.6); Phosphorus* 3.8 mg/dL (2.5-4.5); Triglycerides* 330 mg/dL (40-149)
[2024-07-15 07:43] LABS: HDL Cholesterol* 33 mg/dL (>=50); LDL Cholesterol Calculated 52 mg/dL (<100)
--- NOTE | 2024-07-15 07:43 | PC.NURSE ---
Patient admitted from ED last evening. Pleasant, alert and oriented. Given PRN Dilaudid and Tylenol for pain in abdomen rated 3-5/10.?
[2024-07-15 07:49] LABS: C Reactive Protein* < 0.5 mg/dL (0.5-1.0)
[2024-07-15] MEDS: ACETAMINOPHEN 325 MG TABLET 650 MG PO (07:52)
[2024-07-15] MEDS: 5 % DEXTROSE/0.9% SOD CHLORIDE 1,000 ML 125 ML IV ×2 (07:52)
[2024-07-15] MEDS: OMEPRAZOLE 20 MG CAPSULE DR PO (07:53)
[2024-07-15 08:00] VITALS: BP 101/68; PULSE 88; RESP 18; TEMP 36.8; O2SAT 95
[2024-07-15] MEDS: DULOXETINE 30 MG CAPSULE DR 120 MG PO (09:24)
--- NOTE | 2024-07-15 09:24 | NUTR.NU ---
RDN with MD consult for pancreatitis. Patient admitted for acute on chronic pancreatitis. Past medical history includes Sphincter of Oddi dysfunction. Patient was recently hospitalized at [facility] 06/20/24-07/02/24. Current weight 228 lbs; height 5ft 6in; BMI 36.8 kg/m2. Weight history: 215lbs 12/01/23. Patient attributes weight gain d/t new medications she is taking. Diet is currently clear liquids. No intakes recorded at this time. Patient had ice chips at bedside during visit this morning. RDN visited with patient whom reports receiving diet education related to pancreatitis multiples times in the past. Patient agreed to receive diet education related to pancreatitis at this time. Patient was provided diet education on a low fat diet. Discussed foods to include, foods to avoid, and what to look for on a nutrition label. Education also provided following a low fat diet (about 60 grams/day) long-term. Verbal and written information as well as a sample menu pvided from [facility]. Patient verbalized understanding. RDN's contact information was provided and patient was encouraged to contact RDN with questions.
[2024-07-15] MEDS: buPROPion XL 150 MG TABLET 300 MG PO (09:25)
[2024-07-15] MEDS: ATORVASTATIN CALCIUM 40 MG TABLET PO (09:25)
[2024-07-15] MEDS: FEXOFENADINE 180 MG TABLET PO (09:25)
[2024-07-15] MEDS: QUETIAPINE 100 MG TABLET 200 MG PO (09:25)
[2024-07-15] MEDS: ONDANSETRON 2 MG/ML inj 4 MG IVP (09:35)
[2024-07-15 11:00] VITALS: BP 111/80; PULSE 93; RESP 20; TEMP 36.6; O2SAT 96
[2024-07-15] MEDS: OXYCODONE 5 MG TABLET PO (11:09)
--- NOTE | 2024-07-15 11:54 | P.DS_ITS ---
Transfer Discharge Sum: Prov Provider Date Seen: 07/15/24 Date of admission: 07/14/24 22:04 Primary care physician: Nila Salmon NP Admitting clinician: Terrance Pendleton Attending physician on admission: Terrance Pendleton Consults: 07/14/24 21:04 Consult to Nutrition [CONS] Routine Comment: Reason for consult:: Miscellaneous Attending physician on discharge: Mildred Grimaldo Discharging clinician: Mildred Grimaldo Anticipated date of transfer: 07/15/24 Receiving physician/facility: [facility] DS: Diagnosis Discharge Diagnosis (1) Acute on chronic pancreatitis: Status: Acute Problem details: - was hospitalized at [facility] from 06/20-07/02 - still having significant pain, in addition to decreased UOP on 07/15, requesting transfer to [facility] given GI and pain management capabilities (2) Sphincter of Oddi dysfunction: Status: Acute Problem details: - h/o recurrent ERCP and stenting and sphincterotomy (3) Abdominal pain: Status: Acute Problem details: - Acute abdominal pain likely related to her pancreatitis and sphincter of Oddi dysfunction - Lipase, transaminases, and direct bilirubin elevated on admission (slightly improved 07/15/24) (4) Dehydration: Status: Acute Problem details: - poor UOP during stay Transfer Discharge Sum: Med Medications Active and Home Medications: Home Medications albuterol sulfate 90 mcg/actuation aerosol inhaler 2 puff inhalation QID PRN shortness of breath or wheezing 02/11/22 [History Confirmed 07/14/24] epinephrine 0.3 mg/0.3 mL injection, auto-injector 0.3 mg IM ONCE PRN allergies 04/06/23 [History Confirmed 07/14/24] hyoscyamine sulfate 0.125 mg sublingual tablet 0.125 mg PO TID PRN 04/29/23 [History Confirmed 07/14/24] diphenhydramine HCl 25 mg capsule (Benadryl) 50 mg PO DAILY PRN 11/29/23 [History Confirmed 07/14/24] atorvastatin 40 mg tablet 40 mg PO DAILY 11/30/23 [History Confirmed 07/14/24] cetirizine 5 mg tablet 5 mg PO QAM PRN 11/30/23 [History Confirmed 07/15/24] fexofenadine 180 mg tablet 180 mg PO BID 11/30/23 [History Confirmed 07/14/24] hydromorphone 2 mg tablet 4 mg PO Q6H PRN 11/30/23 [History Confirmed 07/14/24] omega 4-vqi-alf-fish oil 1,000 mg (120 mg-180 mg) capsule (Fish Oil) 1 cap PO QAM 11/30/23 [History Confirmed 07/14/24] ondansetron 4 mg disintegrating tablet 4 mg PO Q6H PRN 11/30/23 [History Confirmed 07/14/24] bupropion HCl 300 mg 24 hr tablet, extended release 300 mg PO DAILY 07/14/24 [History Confirmed 07/14/24] omeprazole 20 mg capsule,delayed release 20 mg PO DAILY 07/14/24 [History Confirmed 07/14/24] oxycodone 5 mg capsule 5 mg PO Q4-6H PRN 07/14/24 [History Confirmed 07/14/24] prazosin 2 mg capsule 4 mg PO HS 07/14/24 [History Confirmed 07/15/24] duloxetine 60 mg capsule,delayed release 120 mg PO DAILY 07/15/24 [History Confirmed 07/15/24] sbxlfl-iucbjacn-ceuieub 24,000-76,000-120,000 unit capsule,delayed rel (Creon) 1 cap PO TIDWM 07/15/24 [History Confirmed 07/15/24] quetiapine 200 mg tablet 200 mg PO DAILY 07/15/24 [History Confirmed 07/15/24] quetiapine 300 mg tablet 300 mg PO HS 07/15/24 [History Confirmed 07/15/24] trazodone 50 mg tablet 50 mg PO HS PRN 07/15/24 [History Confirmed 07/15/24] Active Medications Acetaminophen (Acetaminophen 325 Mg Tablet) 650 mg PO Q6H PRN Last Admin: 07/15/24 07:52 Dose: 650 mg Albuterol (Albuterol Inhaler) 2 puff IH QID PRN PRN Reason: shortness of breath or wheezing Atorvastatin Calcium (Atorvastatin Calcium 40 Mg Tablet) 40 mg PO DAILY [facility] Last Admin: 07/15/24 09:25 Dose: 40 mg Bupropion HCl (Bupropion Xl 150 Mg Tablet) 300 mg PO DAILY [facility] Last Admin: 07/15/24 09:25 Dose: 300 mg Diphenhydramine HCl (Diphenhydramine 25 Mg Capsule) 50 mg PO DAILY PRN Duloxetine HCl (Duloxetine [address]) 120 mg PO DAILY [facility] Last Admin: 07/15/24 09:24 Dose: 120 mg Fexofenadine HCl (Fexofenadine 180 Mg Tablet) 180 mg PO BID [facility] Last Admin: 07/15/24 09:25 Dose: 180 mg Gabapentin (Gabapentin 100 Mg Capsule) 100 mg PO TID [facility] Last Admin: 07/15/24 09:44 Dose: Not Given Hydromorphone HCl (Hydromorphone 2 Mg Tablet) 4 mg PO Q6H PRN Hydromorphone HCl (Hydromorphone 0.5 Mg/0.5 Ml Inj) 1 mg IVP Q2H PRN PRN Reason: Pain Last Admin: 07/15/24 11:31 Dose: 1 mg Hyoscyamine (Hyoscyamine Sulfate 0.125 Mg Tab) 0.125 mg PO TID PRN Dextrose/Sodium Chloride (5 % Dextrose/0.9% Sod Chloride) 1,000 mls @ 125 mls/hr IV .Q8H [facility] Last Admin: 07/15/24 07:52 Dose: 125 mls/hr Sodium Chloride (0.9 % Sodium Chloride 1000 Ml) 1,000 mls @ 1,000 mls/hr IV .Q1H [facility] Stop: 07/15/24 12:35 Omeprazole (Omeprazole [address]) 20 mg PO DAILY [facility] Last Admin: 07/15/24 07:53 Dose: 20 mg Ondansetron HCl (Ondansetron Odt 4 Mg Tab) 4 mg PO Q6H PRN Ondansetron HCl (Ondansetron 2 Mg/Ml Inj) 4 mg IVP Q4H PRN PRN Reason: Nausea Last Admin: 07/15/24 09:35 Dose: 4 mg Oxycodone HCl (Oxycodone 5 Mg Tablet) 5 mg PO Q6H PRN Last Admin: 07/15/24 11:09 Dose: 5 mg Prazosin HCl (Prazosin Hcl 1 Mg Capsule) 4 mg PO HS [facility] Last Admin: 07/14/24 23:26 Dose: 4 mg Quetiapine Fumarate (Quetiapine 100 Mg Tablet) 200 mg PO QAM [facility] Last Admin: 07/15/24 09:25 Dose: 200 mg Quetiapine Fumarate (Quetiapine 100 Mg Tablet) 300 mg PO [facility] Last Admin: 07/14/24 22:48 Dose: 300 mg Sodium Chloride (Sodium Chloride 0.9 % (Flush) 10 Ml Syringe) 5 ml IVF FLUSHPRN PRN Sodium Chloride (Sodium Chloride 0.9 % (Flush) 10 Ml Syringe) 5 ml IVF BID [facility] Last Admin: 07/15/24 09:43 Dose: Not Given Trazodone HCl (Trazodone Hcl 50 Mg Tablet) 50 mg PO [facility] Last Admin: 07/14/24 22:48 Dose: 50 mg Transfer Discharge Sum: Hosp Hospital Course Hospital course: Tatum Taylor is a 43 year old female with a history of acute on chronic pancreatitis and sphincter of OD dysfunction who presented to the hospital with severe abdominal pain. Had been hospitalized at the [facility] for 2 weeks earlier this month. She receives her GI care through their facility, and is also working with their pain management team. On hospital day 1, not able to advance diet or achieve adequate pain control. Also noted to have decreased UOP (<400mL in 16 hours during stay). Requesting transfer to [facility] where she has a GI and Pain management team. Reviewed with Dr. Patricia Blum at the [facility], who accepts patient in transfer. Time Spent with Patient Time attestation: Total time spent providing and/or coordinating transfer services: Total time spent: Greater than 30 minutes Exam Narrative: Exam Narrative: GEN: Alert and oriented, appears ill but nontoxic HEENT: EOMIs bilaterally, no scleral icterus CV: RRR, No concerning murmurs R: LCTA bilaterally without concerning wheezing Ab: + ttp, mild distention, hypoactive bowel sounds Ext: wwp, no concerning edema Skin: No concerning skin lesions or rashes on exposed skin Neuro: Nonfocal Psych: Appropriate Const: Vital Signs, click to edit/add: Vital Signs - 24 hr 07/14/24 18:36 07/14/24 19:59 07/14/24 21:34 Temperature 98.1 F 98.2 F Pulse Rate [Pulse Oximeter] 114 H 114 H 99 Respiratory Rate 14 16 18 Blood Pressure [Ri ght Arm] 127/77 Blood Pressure [Ri ght Upper Arm] 126/79 138/85 Pulse Oximetry 98 98 97 Oxygen Delivery Me thod Room Air Room Air Room Air 07/14/24 21:34 07/14/24 23:00 07/14/24 23:00 Temperature 98.0 F Pulse Rate [Pulse Oximeter] 96 Respiratory Rate 18 18 Blood Pressure [Ri ght Arm] 105/66 Blood Pressure [Ri ght Upper Arm] Pulse Oximetry 94 94 Oxygen Delivery Me thod Room Air Room Air Room Air 07/15/24 03:00 07/15/24 08:00 07/15/24 08:00 Temperature 97.6 F 98.3 F Pulse Rate [Pulse Oximeter] 84 88 Respiratory Rate 18 18 18 Blood Pressure [Ri ght Arm] 103/68 101/68 Blood Pressure [Ri ght Upper Arm] Pulse Oximetry 97 95 95 Oxygen Delivery Me thod Room Air Room Air Room Air Discharge Plan Discharge Disposition: [facility] Date of Admission: 07/14/24 22:04 Attending Provider on Discharge: Mildred Grimaldo Primary Care Provider: Nila Salmon Condition: Stable Discharge Orders: Transfer of Care to Other Hospital (ORDER); Ordered 07/15/24 Ordered By: Mildred Grimaldo Oxygen: No Urinary Catheter: No Services not available here: GI, Pain Management
[2024-07-15] MEDS: 0.9 % SODIUM CHLORIDE 1000 ml 1,000 ML 500 ML IV (12:08)
--- NOTE | 2024-07-15 13:19 | PC.NURSE ---
Discharge: patient transferred to [place]. Vitals stable, pain managed with PRN medication and aqua-k pad, see SEP. Urine output low and urine appears concentrated, bladder scan done and showed 86cc, patient up to bathroom with only 200cc out. MD updated and bolus ordered. Nurse to nurse given to YUMIKO Dong prior to transfer.
== END 2024-07-15 12:30 | disposition short-term general hospital (02) | DRG 440 ==
LOC: ED 20:55 → MEDSURG 21:23
PROVIDERS: Admitting Provider Internal Medicine; Emergency Provider Family Medicine; PCP Nurse Practitioner Gerontology; Visit Provider Internal Medicine
DX: K85.90 Acute pancreatitis without necrosis or infection, unspecified (principal); E86.0 Dehydration; K83.4 Spasm of sphincter of Oddi; R10.9 Unspecified abdominal pain
CPT/HCPCS: 36415; 80048; 80061; 80076; 81001; 82077; 82150; 83605; 83690; 83735; 84100; 85025; 85027; 86140; 87086; 99284; 99285; A9270; J1171; J1885; J2405; J7030; J7042

== ENCOUNTER 2024-07-15 12:32 | Outpatient (CLI) | payer OTHER, SELFPAY | END 2024-07-15 12:33 | disposition home or self-care (01) | LOC: AMB 07-20 13:20 | PROVIDERS: PCP Nurse Practitioner Gerontology; Visit Provider Student in an Organized Health Care Education/Training Program | DX: K85.90 Acute pancreatitis without necrosis or infection, unspecified (principal) | CPT/HCPCS: A0425; A0429 ==

== ENCOUNTER 2024-07-31 20:43 | Emergency (ER) | payer OTHER, SELFPAY ==
[2024-07-31 21:12] VITALS: BP 124/85; PULSE 121; RESP 18; O2SAT 96; BMI 34.5
--- NOTE | 2024-07-31 21:27 | ED_ITS ---
HPI - General Adult General Chief complaint: Abdominal Pain Stated complaint: Abdominal pain Time Seen by Provider: 07/31/24 21:12 History of Present Illness HPI narrative: Pt. has chronic pancreatitis for 20 years. she was in the [facility] jun 20- and readmitted here on the and transferred to NH the next day and then discharged form NH Jul 20. NJ tube was placed Ec. 29 . Nausea today and pain epigastric and to left and left shoulder. 8mg of dilaudid today. Took pain from an 8 to a 6/10. vomitted once today small amt. clear bile. SHe took zofran at 1500 43-year-old woman presenting to the emergency department concern of abdominal pain History of pancreatitis post ERCP and flares of pancreatitis well with spasms of sphincter oddi Pain began building again yesterday. Vomited today. Has been having watery stools which is attributed to formula. Seen last in this emergency department over . Had been hospitalized during the 1st 2 weeks june at the [facility] receiving a splanchnic block. She was hospitalized at this facility during as well for pancreatitis. Was transferred next day to the [facility] where she receives GI care. Evident as I walk into the room that she received an an NJ-tube and has been taking formula feedings. Has 3 tabs of Dilaudid remaining Related Data Home Medications ?Medication ?Instructions ?Recorded ?Confirmed albuterol sulfate 90 mcg/actuation 2 puff inhalation QID PRN 02/11/22 07/14/24 aerosol inhaler shortness of breath or wheezing epinephrine 0.3 mg/0.3 mL 0.3 mg IM ONCE PRN allergies 04/06/23 07/14/24 injection, auto-injector hyoscyamine sulfate 0.125 mg 0.125 mg PO TID PRN 04/29/23 07/14/24 sublingual tablet diphenhydramine HCl 25 mg capsule 50 mg PO DAILY PRN 11/29/23 07/14/24 (Benadryl) atorvastatin 40 mg tablet 40 mg PO DAILY 11/30/23 07/14/24 cetirizine 5 mg tablet 5 mg PO QAM PRN 11/30/23 07/15/24 fexofenadine 180 mg tablet 180 mg PO BID 11/30/23 07/14/24 hydromorphone 2 mg tablet 4 mg PO Q6H PRN 11/30/23 07/14/24 omega 0-ewd-hlj-fish oil 1,000 mg 1 cap PO QAM 11/30/23 07/14/24 (120 mg-180 mg) capsule (Fish Oil) ondansetron 4 mg disintegrating 4 mg PO Q6H PRN 11/30/23 07/14/24 tablet bupropion HCl 300 mg 24 hr tablet, 300 mg PO DAILY 07/14/24 07/14/24 extended release omeprazole 20 mg capsule,delayed 20 mg PO DAILY 07/14/24 07/14/24 release oxycodone 5 mg capsule 5 mg PO Q4-6H PRN 07/14/24 07/14/24 prazosin 2 mg capsule 4 mg PO HS 07/14/24 07/15/24 duloxetine 60 mg capsule,delayed 120 mg PO DAILY 07/15/24 07/15/24 release zudgmb-kzkcqufu-hdfxrjf 1 cap PO TIDWM 07/15/24 07/15/24 24,000-76,000-120,000 unit capsule,delayed rel (Creon) quetiapine 200 mg tablet 200 mg PO DAILY 07/15/24 07/15/24 quetiapine 300 mg tablet 300 mg PO HS 07/15/24 07/15/24 trazodone 50 mg tablet 50 mg PO HS PRN 07/15/24 07/15/24 Previous Rx's ?Medication ?Instructions ?Recorded hydromorphone 4 mg tablet 2 - 4 mg (0.5 - 1 x 4 mg) PO Q4-6H 08/01/24 (Dilaudid) PRN pain #10 tabs hydromorphone 4 mg tablet 2 - 4 mg (0.5 - 1 x 4 mg) PO Q4-6H 08/01/24 (Dilaudid) PRN pain #12 tabs Allergies Allergy/AdvReac Type Severity Reaction Status Date / Time polyethylene glycol Allergy Anaphylaxis Verified 07/14/24 18:48 fentanyl AdvReac pain Verified 07/14/24 18:48 Review of Systems Status of ROS: Reports: 6 or more systems reviewed and unremarkable except as noted in History and below [facility] Medical History Post-ERCP acute pancreatitis ?K91.89 - Other postprocedural complications and disorders of digestive system (ICD-10) ?K85.90 - Acute pancreatitis without necrosis or infection, unspecified (ICD- 10) Chronic, continuous use of opioids ?F11.90 - Opioid use, unspecified, uncomplicated (ICD-10) Acute pancreatitis ?K85.90 - Acute pancreatitis without necrosis or infection, unspecified (ICD- 10) Chronic pain ?G89.29 - Other chronic pain (ICD-10) 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 - Mast cell activation, unspecified (ICD-10) Sphincter of Oddi spasm ?K83.4 - Spasm of sphincter of Oddi (ICD-10) Sphincter of Oddi dysfunction (Unknown) ?K83.4 - Spasm of sphincter of Oddi (ICD-10) Surgical History S/P ERCP ?Z98.890 - Other specified postprocedural states (ICD-10) History of tonsillectomy and adenoidectomy ?Z90.89 - Acquired absence of other organs (ICD-10) Hx of appendectomy ?Z90.49 - Acquired absence of other specified parts of digestive tract (ICD- 10) Hx laparoscopic cholecystectomy ?Z90.49 - Acquired absence of other specified parts of digestive tract (ICD- 10) History of sphincterotomy of sphincter of Oddi ?Z98.890 - Other specified postprocedural states (ICD-10) Family History Sister Danika's disease Sister Raynaud phenomenon Mother Rheumatoid arthritis Erythema multiforme Social History Narrative: F[employer]; works as [email or web address] locally; 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 Does not drink alcohol or use recreational drugs. [facility] [place]. What is your current living situation?: I presently have a place to live Problems where you live: no known problems Problems where you live details: n/a In the past 12 months, utilities in danger of being shut off: no In past 12 months, lack of transportation kept you from medical appts, meetings, work, or getting things needed for daily living: no In the past 12 mos, have been you worried that your food would run out before you had money to buy more?: never true In the past 12 mos, the food you bought just didn't last and you didn't have money to buy more?: never true Highest level of school completed/degree received: Bachelor's degree Smoking Status: Former smoker What tobacco products do you use: cigarettes Smoking quit date/years: <= 15 years ago Do you use any of these nicotine containing products: Vaping Products Nicotine containing products detail: Quit vaping when in the hospital in June Second hand tobacco smoke exposure: No How often do you have a drink containing alcohol: never How often do you have six or more drinks on one occasion: Never AUDIT-C Alcohol total score: 0 Non-prescribed substance use: denies use Caffeine: No How often does anyone, including family, friends and others, physically hurt you : never How often does anyone, including family, friends and others, insult or talk down to you: never How often does anyone, including family, friends and others, threaten you with harm: never How often does anyone, including family, friends and others, scream or curse at you: never service: Yes Exam Narrative: Exam Narrative: NJ tube in place. She is breathing easily. Looks uncomfortable. Face flushed. Skin is warm and dry otherwise. Extremities perfused. Lungs appear to be clear. Heart is in tachycardic rate, regular rhythm. Abdomen is soft and moderately tender without peritoneal signs in the epigastrium and a little bit to the left hypogastrium. Const: Vital Signs, click to edit/add: Vital Signs - 24 hr 07/31/24 21:12 Pulse Rate [Left R adial] 121 H Respiratory Rate 18 Blood Pressure [Le ft Upper Arm] 124/85 Pulse Oximetry 96 Oxygen Delivery Me thod Room Air Documenting provider has reviewed patient's vital signs: yes Course Vital Signs Vital signs: Initial Vital Signs Pulse Rate 121 H 07/31/24 21:12 Pulse Rhythm Regular 07/31/24 21:12 Respiratory Rate 18 07/31/24 21:12 Blood Pressure 124/85 07/31/24 21:12 Blood Pressure Mean 98 07/31/24 21:12 Pulse Oximetry 96 07/31/24 21:12 Oxygen Delivery Method Room Air 07/31/24 21:12 Vital Signs Pulse Rate 121 H 07/31/24 21:12 Respiratory Rate 18 07/31/24 21:12 Blood Pressure 124/85 07/31/24 21:12 Pulse Oximetry 96 07/31/24 21:12 Oxygen Delivery Method Room Air 07/31/24 21:12 Pulse Rate 121 H 07/31/24 21:12 Respiratory Rate 18 07/31/24 21:12 Blood Pressure 124/85 07/31/24 21:12 Pulse Oximetry 96 07/31/24 21:12 Oxygen Delivery Method Room Air 07/31/24 21:12 Medications Administered Medications: Discontinued Medications Generic Name Dose Route Start Last Admin Trade Name Freq PRN Reason Stop Dose Admin Hydromorphone HCl 1 mg 07/31/24 21:37 07/31/24 21:51 Hydromorphone 0.5 Mg/0.5 Ml Inj IVP 07/31/24 21:38 1 mg ONCE ONE Administration Hydromorphone HCl 1 mg 08/01/24 00:37 08/01/24 00:48 Hydromorphone 0.5 Mg/0.5 Ml Inj IVP 08/01/24 00:38 1 mg ONCE ONE Administration Sodium Chloride 1,000 mls @ 1,000 mls/hr 07/31/24 21:37 07/31/24 23:09 0.9 % Sodium Chloride 1000 Ml IV 07/31/24 22:36 Infused .Q1H ONE Infusion Ketamine HCl 20 mg/ Sodium 100.2 mls @ 200.4 mls/hr 07/31/24 22:24 08/01/24 00:09 Chloride IVPB 07/31/24 22:25 Infused ONCE ONE Infusion Sodium Chloride 1,000 mls @ 1,000 mls/hr 07/31/24 23:50 08/01/24 00:56 0.9 % Sodium Chloride 1000 Ml IV 08/01/24 00:49 Infused .Q1H ONE Infusion Ondansetron HCl 4 mg 07/31/24 21:37 07/31/24 21:52 Ondansetron 2 Mg/Ml Inj IVP 07/31/24 21:38 4 mg ONCE ONE Administration Medical Decision Making MDM Narrative Medical decision making narrative: Likely early recurrence of pancreatitis or sphincter of Oddi spasm given history. Will check labs though for degree of inflammation and potentially necessitating imaging and/or admission. Dilaudid and fluid resuscitation. Labs better than usual with regard to pancreatitis at around 780 however the white count a little bit elevated at over 14,000. Mutually decided to defer imaging. Improved briefly began to flare again. Quite a bit improved finally after ketamine. Pain only at a 1. More concerned about hydration than nutrition she says. Give another L of normal saline. Then began to creep up given another dose of Dilaudid. She feels can return home and requesting some Dilaudid tabs for home this weekend until can follow up. See patient discharge plan for further discussion Please follow-up with your care provider as you mentioned. Return for repeated vomiting, uncontrolled pain, fever. Sending in a prescription of Dilaudid as discussed. Medical Records Medical records reviewed: Yes I reviewed the patient's medical records Lab Data Lab results reviewed: Yes I reviewed the patient's lab results Labs: Lab Results 07/31/24 Range/Units 21:54 WBC 14.63 H (4.50-11.00) K/uL RBC 4.86 (4.00-5.20) m/uL Hgb 13.8 (12.0-16.0) gm/dL Hct 40.6 (33.0-51.0) % MCV 84 (80-100) fL MCH 28 (26-34) pg MCHC 34 (32-36) gm/dL RDW Coeff of Declan 12.4 (11.5-15.5) % Plt Count 398 (140-440) K/uL Neut % (Auto) 81.8 H (42.0-72.0) % Lymph % (Auto) 11.1 L (20-44) % Gem % (Auto) 6.6 (0.0-11.0) % Eos % (Auto) 0.0 (0.0-7.0) % Baso % (Auto) 0.3 (0.0-3.0) % Neut # (Auto) 12.00 H (1.7-7.0) K/uL Lymph # (Auto) 1.60 (0.90-2.90) K/uL Gem # (Auto) 1.00 H (0.00-0.90) K/UL Eos # (Auto) 0.00 (0.00-0.50) K/uL Baso # (Auto) 0.00 (0.00-0.30) K/uL Abs Immat Gran (auto) 0.00 (0.00-0.30) K/uL Imm/Tot Granulo (auto) 0.2 % Sodium 138 (135-149) mmol/L Potassium 3.7 (3.6-5.1) mmol/L Chloride 103 (96-114) mmol/L Carbon Dioxide 23 (20-32) mmol/L Anion Gap 12 (7-15) mEq/L BUN 10 (5-24) mg/dL Creatinine 0.9 (0.5-1.5) mg/dL Estimated Creat Clear 74.67 Estimated GFR 81 ml/min Glucose 122 H (60-115) mg/dL Calcium 9.5 (8.4-10.6) mg/dL Total Bilirubin 0.4 (0.1-1.5) mg/dL Direct Bilirubin 0.2 (0.0-0.5) mg/dL AST 24 (12-35) U/L ALT 44 H (4-35) U/L Alkaline Phosphatase 44 (40-150) U/L C-Reactive Protein < 0.5 L (0.5-1.0) mg/dL Total Protein 7.9 (6.0-8.3) g/dL Albumin 4.8 (3.3-5.0) g/dL Lipase 786 H (23-300) U/L Discharge Plan Discharge Clinical Impression: Abdominal pain, Pancreatitis Patient Disposition: Home w/ Parent or Adult Condition: Improved Additional Instructions: Please follow-up with your care provider as you mentioned. Return for repeated vomiting, uncontrolled pain, fever. Sending in a prescription of Dilaudid as discussed. Prescriptions: New hydromorphone [Dilaudid] 4 mg tablet 2 - 4 mg PO Q4-6H PRN (Reason: pain) Qty: 10 0RF hydromorphone [Dilaudid] 4 mg tablet 2 - 4 mg PO Q4-6H PRN (Reason: pain) Qty: 12 0RF No Action albuterol sulfate 90 mcg/actuation HFA aerosol inhaler 2 puff INHALATION QID PRN (Reason: shortness of breath or wheezing) hyoscyamine sulfate 0.125 mg tablet, sublingual 0.125 mg PO TID PRN diphenhydramine HCl [Benadryl] 25 mg capsule 50 mg PO DAILY PRN Rx Instructions: take 2 capsule by ORAL route every day as needed atorvastatin 40 mg tablet 40 mg PO DAILY cetirizine 5 mg tablet 5 mg PO QAM PRN Rx Instructions: PRN ALLERGIC REACTIONS fexofenadine 180 mg tablet 180 mg PO BID omega 2-fcw-bwc-fish oil [Fish Oil] 1,000 mg (120 mg-180 mg) capsule 1 cap PO QAM Rx Instructions: FOR HIGH TRIGLYCERIDES ondansetron 4 mg tablet,disintegrating 4 mg PO Q6H PRN hydromorphone 2 mg Tablet 4 mg PO Q6H PRN prazosin 2 mg capsule 4 mg PO HS oxycodone 5 mg capsule 5 mg PO Q4-6H PRN bupropion HCl 300 mg tablet extended release 24 hr 300 mg PO DAILY omeprazole 20 mg capsule,delayed release(DR/EC) 20 mg PO DAILY Creon 24,000-76,000 -120,000 unit capsule,delayed release(DR/EC) 1 cap PO TIDWM Rx Instructions: administer with meals and/or snacks duloxetine 60 mg capsule,delayed release(DR/EC) 120 mg PO DAILY quetiapine 200 mg tablet 200 mg PO DAILY quetiapine 300 mg tablet 300 mg PO HS trazodone 50 mg tablet 50 mg PO HS PRN epinephrine 0.3 mg/0.3 mL auto-injector 0.3 mg IM ONCE PRN (Reason: allergies) Follow Up/Referrals: Nila Salmon NP [Primary Care Provider] - Stand Alone Forms: [facility], [place] Info Instructions
[2024-07-31] MEDS: HYDROmorphone 0.5 mg/0.5 ml inj 1 MG IVP (21:51)
[2024-07-31] MEDS: 0.9 % SODIUM CHLORIDE 1000 ml 1,000 ML IV (21:52)
[2024-07-31] MEDS: ONDANSETRON 2 MG/ML inj 4 MG IVP (21:52)
[2024-07-31 22:00] LABS: Basophils Percent Auto 0.3 % (0.0-3.0); Hematocrit 40.6 % (33.0-51.0); Hemoglobin* 13.8 gm/dL (12.0-16.0); Immature Granulocytes Pct Auto 0.2 %; Lymphocytes Percent Auto 11.1 % (20-44); Mean Corpuscular HGB Conc 34 gm/dL (32-36); Mean Corpuscular Hemoglobin 28 pg (26-34); Mean Corpuscular Volume 84 fL (80-100); Monocytes Percent Auto 6.6 % (0.0-11.0); Neutrophils Percent Auto 81.8 % (42.0-72.0); Platelet Count* 398 K/uL (140-440); RDW Coefficient of Variation % 12.4 % (11.5-15.5); Red Blood Count 4.86 m/uL (4.00-5.20); White Blood Count* 14.63 K/uL (4.50-11.00)
[2024-07-31 22:10] LABS: Slide Review Reflex No
[2024-07-31 22:16] LABS: Albumin* 4.8 g/dL (3.3-5.0)
[2024-07-31 22:17] LABS: Chloride* 103 mmol/L (96-114); Potassium* 3.7 mmol/L (3.6-5.1); Sodium* 138 mmol/L (135-149)
[2024-07-31 22:19] LABS: Alkaline Phosphatase* 44 U/L (40-150); Aspartate Amino Transferase* 24 U/L (12-35); Bilirubin Direct* 0.2 mg/dL (0.0-0.5); Bilirubin Total* 0.4 mg/dL (0.1-1.5); Total Protein* 7.9 g/dL (6.0-8.3)
[2024-07-31 22:20] LABS: Alanine Aminotransferase* 44 U/L (4-35); Anion Gap 12 mEq/L (7-15); Carbon Dioxide* 23 mmol/L (20-32); Creatinine* 0.9 mg/dL (0.5-1.5); Est. Creatinine Clearance* 74.67; Estimated Glomerular Filt Rate 81 ml/min; Lipase* 786 U/L (23-300)
[2024-07-31 22:21] LABS: Blood Urea Nitrogen* 10 mg/dL (5-24); Calcium* 9.5 mg/dL (8.4-10.6); Glucose* 122 mg/dL (60-115)
[2024-07-31 22:24] LABS: C Reactive Protein* < 0.5 mg/dL (0.5-1.0)
[2024-07-31] MEDS: KETAMINE 50 MG/0.5 ML 20 MG in 0.9 % SODIUM CHLORIDE 100 ml 100 ML 200.4 MG IVPB (23:04)
[2024-08-01] MEDS: 0.9 % SODIUM CHLORIDE 1000 ml 1,000 ML IV (00:09)
[2024-08-01] MEDS: HYDROmorphone 0.5 mg/0.5 ml inj 1 MG IVP (00:48)
== END 2024-08-01 00:57 | disposition home or self-care (01) ==
PROVIDERS: Emergency Provider Family Medicine; PCP Nurse Practitioner Gerontology
DX: K85.90 Acute pancreatitis without necrosis or infection, unspecified (principal); R10.9 Unspecified abdominal pain
CPT/HCPCS: 36415; 80048; 80076; 83690; 85025; 86140; 96361; 96374; 96375; 99284; J1171; J2405; J3490; J7030

== ENCOUNTER 2025-01-19 15:11 | Outpatient (CLI) | payer OTHER, SELFPAY ==
--- NOTE | 2025-01-19 15:30 | CRLHL7_ITS ---
For Patients: As a result of the Century Cures Act, medical imaging exams and procedure reports are released immediately into your electronic medical record. You may view this report before your referring provider. If you have questions, please contact your health care provider. INDICATION: Left leg dysfunction. Paresthesias. COMPARISON: 07/06/2012. TECHNIQUE: Sagittal T1, T2, and STIR sequences. Axial T1 and T2 weighted sequences. FINDINGS: Normal vertebral body alignment. No fractures. No vertebral body loss of height. No spondylolisthesis. No ligamentous injury. No suspicious osseous lesions. Normal conus terminates at L1. T11-12: Disc generation loss disc height. Right paracentral disc protrusion seen only on sagittal imaging. There is likely mild narrowing of spinal canal. No neural foraminal narrowing. T12-L1 L1-2: No spinal canal or neural foraminal narrowing. L2-3: Disc degeneration post disc bulge. No spinal canal or neural foraminal narrowing. L3-4: No spinal canal or neural foraminal narrowing. L4-5: Disc generation posted disc bulge. No narrowing of spinal canal. No neural foraminal narrowing. Mild facet arthropathy. L5-S1: Disc degeneration. No narrowing of spinal canal. No impingement of the traversing S1 nerve roots. No neural foraminal narrowing. Normal visualized SI joints. Normal paraspinal soft tissues. IMPRESSION: 1. Normal alignment. No fractures 2. At T11-12, right paracentral disc protrusion. Mild narrowing of spinal canal 3. No severe spinal canal or neural foraminal narrowing at the remaining levels. 4. Lumbar spondylosis Dictated by Gallo Stephenson MD @ 01/20/2025 10:35:43 AM (Electronically Signed)
== END 2025-01-19 15:12 | disposition home or self-care (01) ==
PROVIDERS: PCP Nurse Practitioner Gerontology; Visit Provider Nurse Practitioner Family
DX: R20.0 Anesthesia of skin (principal); M51.24 Other intervertebral disc displacement, thoracic region
CPT/HCPCS: 72148

== ENCOUNTER 2025-03-17 10:05 | Outpatient (CLI) | payer OTHER, SELFPAY ==
--- NOTE | 2025-03-17 10:15 | CRLHL7_ITS ---
For Patients: As a result of the Century Cures Act, medical imaging exams and procedure reports are released immediately into your electronic medical record. You may view this report before your referring provider. If you have questions, please contact your health care provider. Indication: Fatigue, leg weakness, far lateral gaze diplopia.. Technique: Noncontrast sagittal T1, sagittal FLAIR, axial FLAIR, axial T2 FSE, and axial diffusion weighted images are supplemented with postcontrast axial and coronal T1 weighted images after administration of 15 mL Dotarem intravenous contrast. Comparison: MRI brain report 01/29/2018. MRI brain 04/23/2017 Findings: Scattered punctate foci of T2/FLAIR hyperintensity are throughout the subcortical white matter of both cerebral hemispheres, a couple of which appear new relative to 2017. No suspicious juxtacortical, periventricular, callososeptal, or infratentorial white matter signal abnormality identified. Upper cervical cord signal is also unremarkable for technique. No abnormal postcontrast enhancement. The ventricles and cortical sulci are age-appropriate in configuration. No midline shift or mass effect, hydrocephalus or herniation. No acute/subacute ischemia, intracranial hemorrhage, or abnormal extra-axial fluid collection. Midline structures including the sella and pituitary gland are unremarkable. Major expected intracranial arterial flow voids are preserved. Minor mucosal thickening throughout the ethmoid air cells. No significant mastoid effusion. Unremarkable orbits. Impression: 1. Punctate foci of cerebral white matter signal change, minimally progressed relative to 2017. 2. These are nonspecific, with differential considerations such as chronic migraine headaches, previous trauma, or minimal chronic microangiopathy. They do not appear pathognomonic for demyelinating lesions, which are considered less likely. 3. Otherwise, unremarkable MRI brain. Dictated by Faith Cortes MD @ 03/17/2025 2:53:03 PM (Electronically Signed)
== END 2025-03-17 10:06 | disposition home or self-care (01) ==
LOC: MRI 10:07
PROVIDERS: PCP Nurse Practitioner Gerontology; Visit Provider Nurse Practitioner Family
DX: R29.898 Other symptoms and signs involving the musculoskeletal system (principal); R53.83 Other fatigue; M62.9 Disorder of muscle, unspecified; H53.2 Diplopia
CPT/HCPCS: 70553; A9575

== ENCOUNTER 2025-07-15 01:57 | Emergency (ER) | payer OTHER, SELFPAY ==
--- OUTSIDE RECORDS SUMMARY | 2023-05-14 05:57 | XMS_ITS | Continuity of Care Document ---
Author Organization [facility] Address [address] [address] [place] [address] Phone Care Team Providers Care Managing Attorney Name Role Phone Flakito PEDERSEN, Meagan Melo Unavailable Unavaila ble Allergies, Adverse Reactions, Alerts [...] 10 mg tablet take 1 tablet by ora l route every day as needed 10 MG [...] times every day as needed 25 MG - Active prednisone 10 mg tablet take [...] - Active EpiPen 0.3 mg/0.3 mL (1:1,000) injection,auto-inject or inject 0.3 milliliter by intramuscular route once as needed for anaphylaxis 0.3 MG - Active Ventolin HFA 90 mcg/actuation Aerosol Inhaler inhale 2 puff by inhalation route every 4 - 6 hours as needed - Active Zofran 4 mg Tab take 1 - 2 tablet (4MG) by oral route every 4 hours as needed 4 MG - Active Procedures Procedure Date Ugi Endo; W/endo Ultrasound Ex 23 ERCP w/stent & sphinc [facility] E&m Estab Low-mod 6 Ercp; W/press Measur-sphincter 16 ERCP w/stent & sphinc Offic/outpt E&m Estab Mod-tx 2 16 Offic/outpt E&m Estab Minor Subsqt [...] Diagnoses Date Provider Providers Copied on Encounter [facility], [address] [address], [place], [place], [id number], [place] tel:[phone] [facility] [place] No Information 3 Flakito Barnett [address] [facility], [place], [place], [id number], [place]. tel:[phone] [facility], [address] [address], [place], [place], [id number], [place] tel:[phone] [facility] Presence of pancreatic duct stent 3 Flakito Barnett [address] [facility], [place], [place], [id number], [place]. tel:[phone] [facility], [address] [address], [place], [id number], [place] tel:[phone] [facility] No Information 3 Flakito Barnett [address] [facility], [place], [place], [id number], [place]. tel:[phone] Referring Provider: Meagan Fraga MD, [address] [facility] [address], [place], [address] . tel:[phone] Offic/outpt E&m [facility], [address] [address], [place], [id number], [place] tel:[phone] [facility] [place] [facility] Symptoms or Concerns (chief complaint) Recurrent acute pancreatitis Apr- 3 Flakito Barnett [address] [facility], [facility] [[email or web address] [address], [place], [place], [id number], [place]. tel:[phone] Referring Provider: Referral Self, USE FOR SELF REFERRALS. [facility], [address] [address], [place], [id number], [place] tel:[phone] [facility] No Information 3 Hari Johnson. [address] [facility] [address], [place], [place], [address], [place]. tel:[phone] [facility], [address] [address], [place], [id number], [place] tel:[phone] [facility] Chronic abdominal painOther chronic painSpasm of sphincter of Oddi Mar- 3 Flakito Barnett [address] [facility] [address], [place], [place], [address], [place]. tel:[phone] Offic/outpt E&m Estab Low-mod [facility], [address] [address], [place], [id number], [place] tel:[phone] [facility] GI Symptoms or Concerns (chief complaint) Sphincter of Oddi dysfunction 6 No Information [facility], [address] [address], [place], [id number], [place] tel:[phone] [facility] Sphincter of Oddi dysfunction 6 No Information [facility], [address] [address], [place], [id number], [place] tel:[phone] [facility] No Information 0 6 No Information Offic/outpt E&m Estab Mod-hi 2 [facility], [address] [address], [place], [id number], [place] tel:[phone] [facility] GI Symptoms or Concerns (chief complaint) Abdominal pain, epigastricAc mohegan pancreatitis , unspecifiedD ietary counseling and surveillance 2-201 6 No Information Offic/outpt E&m Estab Minor [facility], [address] [address], [place], [id number], [place] tel:[phone] [facility] GI Symptoms or Concerns (chief complaint) Spasm Sphincter Of Oddi 4 No Information Referring Provider: Referral Self, USE FOR SELF REFERRALS. Subsqt Hosp-da E&m Minr Compl [facility], [address] [address], [place], [id number], [place] tel:[phone] [facility] No Information Mar- 4 No Information Referring Provider: Michael Gonzalez, [address], [address]. tel:[phone] [facility], [address] [address], [place], [id number], [place] tel:[phone] [facility] Acute Pancreatitis Sep-0 4 No Information [facility], [address] [address], [place], [id number], [place] tel:[phone] [facility] No Information Mar-0 4 No Information [facility], [address] [address], [place], [id number], [place] tel:[phone] [facility] No Information Mar-0 4 No Information Referring Provider: Michael Gonzalez, [address], [address]. tel:[phone] Offic/outpt E&m Estab Mod-hi 2 [facility], [address] [address], [place], [id number], [place] tel:[phone] [facility] GI Symptoms or Concerns (chief complaint) Acute Pancreatitis Sep-0 3 4 No Information Offic/outpt E&m Estab Low-mod [facility], [address] [address], [place], [id number], [place] tel:[phone] [facility] Sphincter of ODDI spasm (chief complaint) Spasm Sphincter Of Oddi 0 3 No Information Offic/outpt E&m Estab Mod-hi 2 [facility], [address] [address], [place], [id number], [place] tel:[phone] [facility] Pancreatitis (chief complaint) Spasm Sphincter Of Oddi 2 No Information [facility], [address] [address], [place], [id number], [place] tel:[phone] [facility] No Information 2 No Information Offic/outpt E&m Estab Mod-hi 2 [facility], [address] [address], [place], [id number], [place] tel:[phone] [facility] Pancreatitis (chief complaint) Acute Pancreatitis 2 No Information [facility] [address] [address], [place], [id number], [place] tel:[phone] [facility] No Information 2 No Information Family History [...] protein-Ad26, preservative free, 0.5 mL administered Note: [employer] bi- directional interface ; Source: Other Registry SARS-COV-2 (COVID-19) vaccin e, vector non-replicating, recombinant spike protein-Ad26, preservative free, 0.5 mL administered Note: [employer] bi- directional interface ; Source: Other Registry [...] Registry Payers Payer name Insurance type Covered republican ID Authoriza tion(s) No Information Social History Type Description Quantity Date Captured Comments Alcohol Use Details Unknown Caffeine Use Details Unknown Tobacco Use Status No Information Smoking Status No Information Sex Female Chief Complaint And Reason For Visit No Information Reason For Referral Reason For Referral No Information Plan Of Treatment Date Type Action Status Goal Lifestyle education regardin g diet completed Referral Ordered: EUS Appointment date/timeframe: 04/28/2023 [id number] Ordered: follow-up visit with Any bili provider [id number] Ordered: Xray Abdomen; Limited (AP View Only) (KUB) Appointment date/timeframe: 12/06/2015 [id number] Ordered: Abdomen X-ray; Limited (AP view only) (KUB) Appointment date/timeframe: 04/05/2014 [id number] Ordered: ERCP Appointment date/timeframe: -today [id number] Ordered: Ugi Endo; W/endo Ultrasound Ex Appointment date/timeframe: 03/29/2014 ordered History Of Present Illness Encounter Date Complaint History Of Prese nt Illness GI Symptoms or Concerns This is a pleasant 42-year-old female with history of sphincter of Oddi dysfunction with whom I had a new patient self referral visit today. I have requested her outside records from [facility]. We last saw her in 2015. She [...] nausea and vomiting. She was hospitalized at [facility]. She reports having an elevated lipase in [...] No Information Instructions Date Instruction Additional Infor nicolejosh 1. Schedule EGD and endoscopic ultrasound endoscopic ultrasound and ERCP with the next few weeks. 2. Hyoscyamine as needed Continue Zofran as needed Pain management per primary care provider 5. Patient will send me her [place] paperwork to fill out 6. Further follow [...]
--- OUTSIDE RECORDS SUMMARY | 2025-06-01 02:45 | XMS_ITS | Encounter Summary ---
Author Name [facility] [place] [facility] [place] [facility] [place] Address [address] [place] [address] Care Team Providers Care Electric Detector Operator Name Role Phone GRACIANILA Primary Care Provider Unavailabl e Selected Encounter This section includes the information on record at [place] for the Encounter. Date/Time Encounter Type Encounter Description Reason Provider Source Jun 01, 2025 08:45 AM HEARING AID REPAIR/MODIFYIN G AUDIOLOGY ICD-10-CM Z46.1 Encounter for fitting and adjustment of hearing aid ANA LUISA CHAMPAGNE [facility] [place] [facility] Encounter Template Text not used by [place] Assessments - Encounter Diagnoses This section includes the primary and secondary diagnoses documented for the Encounter. Date/Time Primary/Secondary Diagnosis Diagnosis Name Provider Source Jun 01, 2025 09:45 AM PRIMARY Encounter for fitting and adjustment of hearing aid ANA LUISA CHAMPAGNE [facility] Jun 01, 2025 09:45 AM SECONDARY Noise effects on inner ear, bilateral ANA LUISA CHAMPAGNE TTA [facility] Plan of Treatment: Future Appointments (+ [...] 20 appointments. The data comes from all [facility]. Appointment Date/Time Appointment Type Appointme nt Facility Name Jun 06, 2025 01:30 PM AMBULATORY - MEDICINE [place] [facility] Jun 08, 2025 07:45 AM AMBULATORY - NONE [facility] Jul 26, 2025 11:00 AM AMBULATORY - REHAB MEDICIN E [facility] Jul 27, 2025 11:00 AM AMBULATORY - PSYCHIATRY [place] [...] of theEncounter. The data comes from all [facility]. Test Date/Time Test Type Test Details Facility Name May 17, 2025 07:19 PM Consult Order COLONOSCOP Y DIAGNOSTIC OUTPT Cons Child Care Lead Teacher's Choice DEEPIKA NOEL Lab Results: +/- 30 [...] Type Result - Unit Interpretation Reference Range Specimen Type Comment May 30, 2025 03:17 PM [facility] C.TRACHOMATIS/N.GONORRHEA DNA VAGINA Specimen Type: VAGINA No comment entered. Ordering Provider: NILA GRACIA Report Released Date/Time: May 04, 2025 02:22 PM Reporting Lab: [facility] [id number] Performing Lab: [facility] [address] C.TRACHOMATIS DNANOT DETECTEDN.GONORRHEA DNANOT DETECTEDCT/NG INTERPRETATION Infectious agent DNA is not detected by this assayMay 30, 2025 02:43 [place] CBOCHUMAN PAPILLOMA VIRUS,DNA HIGH RISKCERVICAL VAGINAL CYTOLOGIC MATERIAL Specimen Type: CERVICAL VAGINAL CYTOLOGIC MATERIAL No comment entered. Ordering Provider: NILA GRACIA Report Released Date/Time: May 30, 2025 02:45 PM Reporting Lab: [facility] [address] Performing Lab: [facility] [address] HPV 16NEGATIVEHPV 18NEGATIVEOTHER HIGH RISK HPVNEGATIVEHPV INTERPRETATIONHR-HPV is undetectable or below preset threshold.May 06, 2025 12:00 [facility] OCCULT BLOOD FIT X1 SCREENFECESSpecimen Type: FECES No comment entered. Ordering Provider: NILA GRACIA Report Released Date/Time: May 04, 2025 02:31 PM Reporting Lab: [facility] [address] Performing Lab: [facility] [address] OCCULT BLOOD (FIT) #1 OF 1POSITIVEHHNegativeOct 2024 02:38 [facility] SYPHILIS AB/RPR RFLXSERUMSpecimen Type: SERUM No comment entered. Ordering Provider: NILA GRACIA Report Released Date/Time: May 04, 2025 02:23 PM Reporting Lab: [facility] [address] Performing Lab: [facility] [address] SYPHILIS AB/RPR RFLXNEGATIVENEGATIVEOct 2024 02:38 [place] CBOCBASIC METABOLIC PANEL+MGPLASMASpecimen Type: PLASMA No comment entered. Ordering Provider: NILA GRACIA Report Released Date/Time: May 04, 2025 02:23 PM Reporting Lab: [facility] [address] Performing Lab: [facility] [address] CREATININE1.1 mg/dLH0.5-1.0UREA NITROGEN9 mg/dL7-14WMYWJGE39 mg/zX27-310RTWZNB 139 mmol/O809-291IBQIPUYNP1.5 mmol/L3.5-5.0QMAKFNBD062 mmol/D96-777WV753 mmol/L 22-43DEXORMX0.1 mg/dL8.4-10.4XIFUJBWMG3.1 mg/dL1.6-2.6ANION GAP9 mmol/L5-15 .CREAT EGFR(CKD-EPI)63>60Oct 2024 02:38 [place] CBOCURINALYSISURINE Specimen Type: URINE No comment entered. Ordering Provider: NILA GRACIA Report Released Date/Time: May 04, 2025 02:22 PM Reporting Lab: [facility] [address] Performing Lab: [facility] [address] URINE COLORYELLOWColorless, Light Yellow, Yellow, Dark YellowSPECIFIC GRAVITY 1.0341.003-1.035URINE BILIRUBINNEGATIVENEGATIVEURINE KETONESTRACEHNEGATIVEURINE GLUCOSENEGATIVE mg/dL<30URINE WQSIRUU48 mg/dLH<20URINE PH6.05.0-8.0URINE WBC/HPF 1 /[HPF]0-7URINE BACTERIAFEWHNone SeenURINE RBC/HPF3 /[HPF]0-3APPEARANCETURBID ClearSQUAMOUS XZUHQQFAPJ83 /[HPF]H<5URINE BLOODTRACEHNEGATIVEURINE NITRITE NEGATIVENEGATIVELEUKOCYTE ESTERASENEGATIVENEGATIVEOct 2024 02:38 [place] CBOCHIV AG/AB SCREENSERUMSpecimen Type: SERUM No comment entered. Ordering Provider: NILA GRACIA Report Released Date/Time: May 04, 2025 02:20 PM Reporting Lab: [facility] [address] Performing Lab: [facility] [address] HIV AG/AB SCREENNEGATIVENEGATIVEOct 2024 02:38 [place] CBOCLIPID PANEL,NON-FASTINGPLASMASpecimen Type: PLASMA Comment: Elevated triglyceride result from a non-fasting specimen should be interpreted with caution. A fasting panel is recommended for accurate triglycerides when trigs are >200 from a non-fasting specimen. Ordering Provider: NILA GRACIA Report Released Date/Time: May 04, 2025 02:22 PM Reporting Lab: [facility] [address] Performing Lab: [facility] [address] MDMFVVHWAUJ671 mg/dLH<199.HDL37 mg/dLL>50LDL MZIDWHNFTWM746 mg/dLH<99VLDL NMGGOLKCNMK35 mg/dLH<29NON HDL RZOGBHEHEJM750 mg/dLH<129TRIG(NON-FASTING)335 mg/dLH<149 Social History: Smoking Status (Most current) and Tobacco Use (All prior to encounter date) This section includes the most current, and the historical, smoking and tobacco- related health factors from the [place] facility where the Encounter took place. Current Smoking Status This section includes the most current smoking, or tobacco-related health factor, from the [place] facility where the Encounter took place. Date/Time Current Smoking Status Comment Facil ity Jan 05, 2024 12:00 PM [place]-TOBACCO QUIT 5 TO < 15 YRS [facility] Tobacco Use History This section includes a history of the smoking, or tobacco-related health factors, that were collected on or before the date of the Encounter. The data comes from the [place] facility where the Encounter took place. Date/Time Smoking Status/Tobacco Use Comment F acility Jan 05, 2024 12:00 PM [place]-TOBACCO QUIT 5 TO < 15 YRS [facility] [...] this document. The data comes from all [facility]. Date Advance Directives Provider Source Jan 05, [...] the Encounter. The data comes from all [place] treatment facilities. Date/Time Radiology Report Provider Source Jun 08, 2025 07:44 AM US PELVIC (FEMALE) (P): BILLIE ZAVALA [id number] -[id number] F Exm Date: JUN 08, 2025@07:44 Req Phys: NILA GRACIA Pat Loc: [facility] PACT DIAMONDS [facility] (Req'g Lo Img Loc: Ultrasound Imaging Service: Unknown Screen: [place] [address] (Case [id number] COMPLETE) US PELVIC (US Detailed) CPT:68619 Proc Modifiers : [id number] Reason for Study: bleeding after intercourse (Case 1682 COMPLETE) US VISCERAL VASCULAR ABDOMEN LIMI(US Detailed) CPT:30715 (Case 1683 COMPLETE) US TRANSVAGINAL (US Detailed) CPT:44061 Clinical History: bleeding after intercourse My pager number on record is: [phone]. I confirm that the pager number/cell phone number above is correct for reporting critical results. Trainees only: Enter your staff provider's info here: LAST CREATININE 1.0 (08/18/24) Report Status: Verified Date Reported: JUN 08, 2025 Date Verified: JUN 08, 2025 Associate Professor Of Theology E-Sig:/ES/DIPTI RANDHAWA MD Report: EXAMINATION: US PELVIC, US VISCERAL VASCULAR ABDOMEN LIMITED, US TRANSVAGINAL Reason for Study: bleeding after intercourse Comparison: CT abdomen pelvis 07/16/2024 Technique: Transabdominal and transvaginal ultrasound evaluation of the pelvis, including color and spectral Doppler evaluation of ovarian blood flow. Findings: The uterus measures 9.5 x 5.2 x 4.6 cm, and the endometrial stripe measures up to 6 mm in thickness. No focal uterine or endometrial abnormality identified. Mild heterogeneity throughout the myometrium. Nabothian cysts The right ovary measures 3.5 x 1.7 x 3.3 cm. The right ovary is normal in appearance, and contain small follicles. No abnormal adnexal mass. There is normal blood flow on color and spectral doppler. The left ovary measures 3.8 x 2.7 x 1.9 cm. The left ovary is normal in appearance, and contain small follicles. No abnormal adnexal mass. There is normal blood flow on color and spectral doppler. Small amount of fluid within the cul-de-sac. Impression: 1. No sonographic findings to explain the patients clinical symptoms. 2. Small amount of fluid within the cul-de-sac. Report Sign Date/Time: 06/08/2025 9:16 AM Primary Interpreting Staff: DIPTI RANDHAWA MD, RADIOLOGIST (Associate Professor Of Theology) /[facility] Pathology Reports: +/- 30 days of the encounter Pathology Reports For cases when an order for pathology services may have been completed prior to the date of the Encounter, the report list includes the Pathology Reports that were completed up to 30 days before dateof the Encounter. For cases when an order for pathology services may have been completed after the date of the Encounter, the report list also includes the Pathology Reports that were completed up to30 days after date of the Encounter. The data comes from all [place] treatment facilities. Date/Time Pathology Report Provider Source Jun 08, 2025 11:11 AM LR CYTOPATHOLOGY R EPORT: LOCAL TITLE: LR CYTOPATHOLOGY REPORT STANDARD TITLE: PATHOLOGY REPORT DATE OF NOTE: JUN 08, 2025@11:11:10 ENTRY DATE: JUN 08, 2025@11:11:10 AUTHOR: LOYDA SEGAL COSIGNER: URGENCY: STATUS: COMPLETED $APHDR Reporting Lab: [facility] [CLIA# [id number]] [place] [address] - - - - - - - - - - - - - - - - - - - - - - - - - - - - - - - - - - - - - - - - MEDICAL RECORD CYTOPATHOLOGY - - - - - - - - - - - - - - - - - - - - - - - - - - - - - - - - - - - - - - - - PATHOLOGY REPORT Accession No. [id number] - - - - - - - - - - - - - - - - - - - - - - - - - - - - - - - - - - - - - - - - $TEXT Submitted by: NILA GRACIA Date obtained: May 30, 2025 - - - - - - - - - - - - - - - - - - - - - - - - - - - - - - - - - - - - - - - - Specimen (Received Jun 02, 2025 11:53): PAP SMEAR-CYTOLOGY - - - - - - - - - - - - - - - - - - - - - - - - - - - - - - - - - - - - - - - - BRIEF CLINICAL HISTORY: Source: Endo/Exocervical. LMP/Menstrual Status: 05/06/2025. HPV co-testing: Yes. - - - - - - - - - - - - - - - - - - - - - - - - - - - - - - - - - - - - - - - - PREOPERATIVE DIAGNOSIS: - - - - - - - - - - - - - - - - - - - - - - - - - - - - - - - - - - - - - - - - OPERATIVE FINDINGS: - - - - - - - - - - - - - - - - - - - - - - - - - - - - - - - - - - - - - - - - POSTOPERATIVE DIAGNOSIS: Surgeon/physician: NILA Wright GRACIA =-=-=-=-=-=-=-=-=-=-=-=-=-=-=-=-=-=-=-=-=-=-=-=-=-=-=-=-=-=-=-=-=-=-=-=-=-=-=-= - - - - - - - - - - - - - - - - - - - - - - - - - - - - - - - - - - - - - - - - PATHOLOGY REPORT Accession No. [id number] - - - - - - - - - - - - - - - - - - - - - - - - - - - - - - - - - - - - - - - - Screened by: LOYDA SEGAL BS Description: THINPREP VIAL; One ThinPrep slide prepared. Educational Note: Cervical cytology is a screening test with limited sensitivity; regular screening is critical for cancer prevention; and PAP tests are primarily effective for the diagnosis/prevention of squamous cell carcinoma, not adenocarcinomas or other cancers. Microscopic: Microscopic examination performed. [facility], [facility] Diagnosis: Specimen adequacy: SATISFACTORY FOR EVALUATION. ENDOCERVICAL/TRANSFORMATION ZONE COMPONENT NOT IDENTIFIED. Interpretation: NEGATIVE FOR INTRAEPITHELIAL LESION OR MALIGNANCY. A computer-aided imaging and review system was used to analyze the cytology specimen ([employer] Imaging System). The HPV results are available in CPRS /es/ TAMICA CUEVA(ASC) SALES REPRESENTATIVE RAW FIBERS,PATHOLOGY AND LABORATORY [facility] Signed Jun 08, 2025@11:11 Performing Laboratory: Cytology Report Performed By: [facility] [CLIA# [id number]] [place] [address] $FTR - - - - - - - - - - - - - - - - - - - - - - - - - - - - - - - - - - - - - - - - (End of report) LOYDA SEGAL [facility] Date Jun 08, 2025 - - - - - - - - - - - - - - - - - - - - - - - - - - - - - - - - - - - - - - - - LUCASQUINTIN MAJOR STANDARD FORM 515 ID:[id number] SEX:F :1980 AGE: 44 LOC:[id number] PCP: Nila Gracia /lilia/ LOYDA SEGAL, CT([facility]) SALES REPRESENTATIVE RAW FIBERS,PATHOLOGY AND LABORATORY [facility] [place] Signed: 06/08/2025 11:11[facility] Encounter Notes: All associated encounter notes This section contains the clinical notes associated to the Encounter. Date/Time Encounter Note(s) Provider Source Jun 01, 2025 07:08 AM AUDIOLOGY NOTE: LOCAL TITLE: AUDIOLOGY CLINIC NOTE STANDARD TITLE: AUDIOLOGY NOTE DATE OF NOTE: JUN 01, 2025@07:08 ENTRY DATE: JUN 01, 2025@07:08:09 AUTHOR: LOR CHAMPAGNE COSIGNER: URGENCY: STATUS: COMPLETED AUDIOLOGY CLINIC NOTE Has ADDENDA DIAGNOSIS: Encounter for Fitting and Adjustment of Hearing Aid Reason for visit: Hearing aid service Location of visit (Room Number): 2S-118 HISTORY: Patient seen reporting the right hearing aid seems to be intermittent. 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 She declined a hearing test today. Hearing Aids (Right and Left): 07/24/23 AUDIOLOGY STYLETTO 7AX RINA-R [id number] R [address] [place] 07/24/23 AUDIOLOGY STYLETTO 7AX RINA-R [id number] L [address] [place] 07/24/23 AUDIOLOGY STREAMLINE [facility] WT [id number] N/A [address] [place] Otoscopy: Free of excessive cerumen, normal anatomy bilaterally ACTION: Hearing aids were cleaned and checked. Changed domes and wax traps and cleaned out microphone ports. Repair [id number]: right blurb writer was replaced for intermittency. A listening check revealed good sound quality following cleaning. Right hearing aid battery was almost , and was charged prior to programming. Hearing aids programmed to complete firmware update. reported good audibility following adjustments. Senior Telecommunications Technician check indicated the right side does not hold the hearing aid very well, either hearing aid. Scuddy was given a new fisheries biologist today. She will return as needed. PLAN: Follow up as medically indicated or if a change in hearing is noted. RTC for servicing of amplification as needed. Patient is in agreement with this plan. TECH NOTE: Please place blurb writer in clinic stock when in. /lilia/ LOR CHAMPAGNE COMMUTATOR ASSEMBLER Signed: 06/01/2025 09:47 06/06/2025 ADDENDUM STATUS: COMPLETED RECEIVED AND CERTIFIED NEW RIGHT RINA LIVESTOCK RANCHER. ADDING TO CLINIC STOCK INSTRUCTED. /lilia/ GREGG GALLAGHER Audio health tech Signed: 06/06/2025 13:10 /lilia/ Simone Liu Clinical Corn [place] Cosigned: 06/06/2025 14:22[facility]
--- OUTSIDE RECORDS SUMMARY | 2025-06-02 08:07 | XMS_ITS | Encounter Summary ---
Author Name [facility] [facility] Address [address] [place] [address] Care Team Providers Care Gauge Maker Name Role Phone NILA GRACIA Primary Care Provider Unavailabl e Selected Encounter This section includes the information on record at [place] for the Encounter. Date/Time Encounter Type Encounter Description Reason Pro vider Source Jun 02, 2025 02:07 PM Outpatient Encounter GI EN DOSCOPY IHE Encounter Template Text not used by [place] Plan of Treatment: Future Appointments (+ 6 months) and Future Tests (+/- 45 days) The Plan of Treatment section includes future care activities for the patient from all [place] treatmentfacilities. This section includes future appointments and future orders which are active, pending or scheduled. Future Appointments This section includes appointments that were scheduled to occur 6 months from the date of the Encounter, up to a maximum of 20 appointments. The data comes from all [place] treatment facilities. Appointment Date/Time Appointment Type Appointme nt Facility Name Jun 06, 2025 01:30 PM AMBULATORY - [facility]ICINE [place] [facility] Jun 08, 2025 07:45 AM AMBULATORY - NONE [place] [facility] Jul 26, 2025 11:00 AM AMBULATORY - REHAB MEDICIN [facility] Jul 27, 2025 11:00 AM AMBULATORY [...] of theEncounter. The data comes from all [place] treatment facilities. Test Date/Time Test Type Test Details Facility Name May 17, 2025 07:19 PM Consult Order COLONOSCOP Y DIAGNOSTIC OUTPT Cons Deputy Clerk [address]'s Choice [facility] Lab Results: +/- 30 days of the encounter This section includes the Chemistry and Hematology Lab Results on record with [place] for the patient. Radiology Reports and Pathology Reports are provided separately, in subsequent sections. Lab Results This section contains the Chemistry/Hematology Results that were resulted 30 days before or 30 daysafter the date of the Encounter. Date/Time Source Result Type Result - Unit Interpretation Reference Range Specimen Type Comment May 30, 2025 03:17 PM [facility] C.TRACHOMATIS/N.GONORRHEA DNA VAGINA Specimen Type: VAGINA No comment entered. Ordering Provider: NILA GRACIA Report Released Date/Time: May 04, 2025 02:22 PM Reporting Lab: [facility] [id number] Performing Lab: [facility] [id number] C.TRACHOMATIS DNANOT DETECTEDN.GONORRHEA DNANOT DETECTEDCT/NG INTERPRETATION Infectious agent DNA is not detected by this assayMay 30, 2025 02:43 [place] [facility] PAP[place]OMA VIRUS,DNA HIGH RISKCERVICAL VAGINAL CYTOLOGIC MATERIAL Specimen Type: CERVICAL VAGINAL CYTOLOGIC MATERIAL No comment entered. Ordering Provider: NILA GRACIA Report Released Date/Time: May 30, 2025 02:45 PM Reporting Lab: [facility] [phone] Performing Lab: [facility] [address] HPV 16NEGATIVEHPV 18NEGATIVEOTHER HIGH RISK HPVNEGATIVEHPV INTERPRETATIONHR-HPV is undetectable or below preset threshold.May 06, 2025 12:00 [facility] OCCULT BLOOD FIT X1 SCREENFECESSpecimen Type: FECES No comment entered. Ordering Provider: NILA GRACIA Report Released Date/Time: May 04, 2025 02:31 PM Reporting Lab: [facility] [phone] Performing Lab: [facility] [address] OCCULT BLOOD (FIT) #1 OF 1POSITIVEHHNegativeOct 2024 02:38 [facility] SYPHILIS AB/RPR RFLXSERUMSpecimen Type: SERUM No comment entered. Ordering Provider: NILA GRACIA Report Released Date/Time: May 04, 2025 02:23 PM Reporting Lab: [facility] [phone] Performing Lab: [facility] [address] SYPHILIS AB/RPR RFLXNEGATIVENEGATIVEOct 2024 02:38 [place] [facility]IC METABOLIC PANEL+MGPLASMASpecimen Type: PLASMA No comment entered. Ordering Provider: NILA GRACIA Report Released Date/Time: May 04, 2025 02:23 PM Reporting Lab: [facility] [address] Performing Lab: [facility] [address] CREATININE1.1 mg/dLH0.5-1.0UREA NITROGEN9 mg/dL7-37TLQEZLV23 mg/yL80-952MQYYFQ 139 mmol/T614-635PMWTEQZTX1.5 mmol/L3.5-5.7TBZZIGVR181 mmol/G32-436QL589 mmol/L 22-62RASIHFO3.1 mg/dL8.4-10.0ZVQMLIODU4.1 mg/dL1.6-2.6ANION GAP9 mmol/L5-15 .CREAT EGFR(CKD-EPI)63>60Oct 2024 02:38 [facility] [facility]URINALYSISURINE Specimen Type: URINE No comment entered. Ordering Provider: NILA GRACIA Report Released Date/Time: May 04, 2025 02:22 PM Reporting Lab: [facility] [phone] Performing Lab: [facility] [address] URINE COLORYELLOWColorless, Light Yellow, Yellow, Dark YellowSPECIFIC GRAVITY 1.0341.003-1.035URINE BILIRUBINNEGATIVENEGATIVEURINE KETONESTRACEHNEGATIVEURINE GLUCOSENEGATIVE mg/dL<30URINE OBSPLBB51 mg/dLH<20URINE PH6.05.0-8.0URINE WBC/HPF 1 /[HPF]0-7URINE BACTERIAFEWHNone SeenURINE RBC/HPF3 /[HPF]0-3APPEARANCETURBID ClearSQUAMOUS VIEVIDWWKI61 /[HPF]H<5URINE BLOODTRACEHNEGATIVEURINE NITRITE NEGATIVENEGATIVELEUKOCYTE ESTERASENEGATIVENEGATIVEOct 2024 02:38 [place] [facility]CH[facility] AG/AB SCREENSERUMSpecimen Type: SERUM No comment entered. Ordering Provider: NILA GRACIA Report Released Date/Time: May 04, 2025 02:20 PM Reporting Lab: [facility] [phone] Performing Lab: [facility] [address] HIV AG/AB SCREENNEGATIVENEGATIVEOct 2024 02:38 [place] CBOCLIPID PANEL,NON-FASTINGPLASMASpecimen Type: PLASMA Comment: Elevated triglyceride result from a non-fasting specimen should be interpreted with caution. A fasting panel is recommended for accurate triglycerides when trigs are >200 from a non-fasting specimen. Ordering Provider: NILA GRACIA Report Released Date/Time: May 04, 2025 02:22 PM Reporting Lab: [facility] [address] Performing Lab: [facility] [address] CPDPIVFFDVP520 mg/dLH<199.HDL37 mg/dLL>50LDL RNAQRBDWHOK503 mg/dLH<99VLDL SWHDYOOXCIT35 mg/dLH<29NON HDL ONIPKCMXHZM875 mg/dLH<129TRIG(NON-FASTING)335 mg/dLH<149 Social History: Smoking Status (Most current) and Tobacco Use (All prior to encounter date) This section includes the most current, and the historical, smoking and tobacco- related health factors from the [place] facility where the Encounter took place. Current Smoking Status This section includes the most current smoking, or tobacco-related health factor, from the [place] facility where the Encounter took place. Date/Time Current Smoking Status Comment Facil [facility] Jan 05, 2024 12:00 PM VA-TOBACCO QUIT 5 TO < 15 YRS [facility] Tobacco Use History This section includes a history of the smoking, or tobacco-related health factors, that were collected on or before the date of the Encounter. The data comes from the [place] facility where the Encounter took place. Date/Time Smoking Status/Tobacco Use Comment F acility Jan 05, 2024 12:00 PM VA-TOBACCO QUIT 5 TO < 15 YRS [facility] Advance Directives: All historical and current Section Date Range: From patient's date of to the date document was created. This section includes ALL of a patient's completed or amended [place] Advance and Rescinded Directives. The entries below indicate that a directive exists for the patient, but an actual copy is not included with this document. The data comes from all [place] facilities. Date Advance Directives Provider Source Jan 05, 2024 ADVANCE DIRECTIVE DISCUSSION SHAHID HURTADO [facility] Radiology Reports: +/- 30 days of [...] the Encounter. The data comes from all [place] treatment facilities. Date/Time Radiology Report Provider Source Jun 08, 2025 07:44 AM US PELVIC (FEMALE) (P): BILLIE ZAVALA [id number] -[phone] F Exm Date: JUN 08, 2025@07:44 Req Phys: NILA GRACIA Pat Loc: [facility] PACT DIAMONDS (Req'g Lo Img Loc: Ultrasound Imaging Service: Unknown Screen: [place] [address] (Case [id number] COMPLETE) US PELVIC (US Detailed) CPT:09182 Proc Modifiers : [id number] Reason for Study: bleeding after intercourse (Case 1682 COMPLETE) US VISCERAL VASCULAR ABDOMEN LIMI(US Detailed) CPT:69999 (Case 1683 COMPLETE) US TRANSVAGINAL (US Detailed) CPT:87238 Clinical History: bleeding after intercourse My pager number on record is: [phone]. I confirm that the pager number/cell phone number above is correct for reporting critical results. Trainees only: Enter your staff provider's info here: LAST CREATININE 1.0 (08/18/24) Report Status: Verified Date Reported: JUN 08, 2025 Date Verified: JUN 08, 2025 Catalyst Plant Supervisor E-Sig:/ES/DIPTI RANDHAWA MD Report: EXAMINATION: US PELVIC, [...] Primary Interpreting Staff: DIPTI RANDHAWA MD, RADIOLOGIST (Catalyst Plant Supervisor) /[facility] Pathology Reports: +/- 30 days of [...] the Encounter. The data comes from all [place] treatment facilities. Date/Time Pathology Report Provider Source Jun 08, 2025 11:11 AM LR CYTOPATHOLOGY R EPORT: LOCAL TITLE: LR CYTOPATHOLOGY REPORT STANDARD TITLE: PATHOLOGY REPORT DATE OF NOTE: JUN 08, 2025@11:11:10 ENTRY DATE: JUN 08, 2025@11:11:10 AUTHOR: LOYDA SEGALIGNER: URGENCY: STATUS: COMPLETED $APHDR Reporting Lab: [facility] [CLIA# [id number]] [address] [address] - - - - - - - [...] - - - PATHOLOGY REPORT Accession No. [id number] - - - - - [...] - - - POSTOPERATIVE DIAGNOSIS: Surgeon/physician: NILA GRACIA =-=-=-=-=-=-=-=-=-=-=-=-=-=-=-=-=-=-=-=-=-=-=-=-=-=-=-=-=-=-=-=-=-=-=-=-=-=-=-= - - - - - [...] - - - - Screened by: LOYDA MENDENHALL Description: THINPREP VIAL; One ThinPrep slide prepared. Educational Note: Cervical cytology is a screening test with limited sensitivity; regular screening is critical for cancer prevention; and PAP tests are primarily effective for the diagnosis/prevention of squamous cell carcinoma, not adenocarcinomas or other cancers. Microscopic: Microscopic examination performed. CMM Diagnosis: Specimen adequacy: SATISFACTORY FOR EVALUATION. ENDOCERVICAL/TRANSFORMATION ZONE COMPONENT NOT IDENTIFIED. Interpretation: NEGATIVE FOR INTRAEPITHELIAL LESION OR MALIGNANCY. A computer-aided imaging and review system was used to analyze the cytology specimen ([employer] System). The HPV results are available in CPRS /es/ TAMICA CUEVA(ASCP) PYROMETER TEMPERATURE REGULATOR,PATHOLOGY AND LABORATORY [facility] [place] Signed Jun 08, 2025@11:11 Performing Laboratory: Cytology Report Performed By: [facility] [CLIA# [id number]] [place] [address] $FTR - - - - - - - - - - - - - - - - - - - - - - - - - - - - - - - - - - - - - - - - (End of report) LOYDA MENDENHALL formerly [facility] Date Jun 08, 2025 - - - - - - - - - - - - - - - - - - - - - - - - - - - - - - - - - - - - - - - - QUINTIN ZAVALA STANDARD FORM 515 ID:[id number] SEX:F :1980 AGE: 44 LOC:[id number] PCP: Nila Gracia /lilia/ LOYDA SEGAL, CT([facility]) PYROMETER TEMPERATURE REGULATOR,PATHOLOGY AND LABORATORY [facility] [place] Signed: 06/08/2025 11:LOYDA [facility] Encounter Notes: All associated encounter notes This section contains the clinical notes associated to the Encounter. Date/Time Encounter Note(s) Provider Source Jun 02, 2025 02:07 PM REPORT OF CONTACT: LOCAL TITLE: APPOINTMENT SCHEDULING NOTE STANDARD TITLE: REPORT OF CONTACT DATE OF NOTE: JUN 02, 2025@14:07 ENTRY DATE: JUN 02, 2025@14:07:19 AUTHOR: VAZQUEZ FRAZIER EXP COSIGNER: URGENCY: STATUS: COMPLETED APPOINTMENT SCHEDULING NOTE Has ADDENDA is scheduled for colonoscopy flagging for prep /lilia/ VAZQUEZ FRAZIER AMSA Signed: 06/02/2025 14:08 Receipt Acknowledged By: 06/10/2025 08:25 /lilia/ ALISIA ADAMS APRN, SONIA CERTIFIED NURSE PRACTITIONER 06/02/2025 ADDENDUM STATUS: COMPLETED Dr. Gonzalez - you have an upcoming appointment with the patient on 06/06. The patient has a +FIT and has a colonoscopy scheduled on 06/28. 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 I spoke with pharmacy about other options such as Sutab, but PEG is binder in Sutab. Dr. Alonzo suggested lactulose, but unclear if this would be adequate enough for bowel prep. Could you please review with the patient and determine what the best option for colon prep would be? Thank you! /sandra ADAMS APRN, CLINIC NURSE CERTIFIED NURSE PRACTITIONER Signed: 06/02/2025 14:44 Receipt Acknowledged By: * AWAITING SIGNATURE * CINDY GONZALEZ [facility]
--- OUTSIDE RECORDS SUMMARY | 2025-06-06 07:30 | XMS_ITS | Encounter Summary ---
Author Name [facility] [place] Organization [facility] [place] Address [address] [place] [address] Care Team Providers Care Chief Operating Officer Name Role Phone NILA GRACIA Primary Care Provider Unavailabl e Selected Encounter This section includes the information on record at [place] for the Encounter. Date/Time Encounter Type Encounter Description Reason Pro vider Source Jun 06, 2025 01:30 PM OFFICE O/P EST MOD 30 MIN GASTROENTEROLOGY ICD-10-CM K86.1 Other chronic pancreatitis DOM CHARLES IHLorie Encounter Template Text not used by [place] Assessments - Encounter Diagnoses This section includes the primary and secondary diagnoses documented for the Encounter. Date/Time Primary/Secondary Diagnosis Diagnosis Name Provider Source Jun 06, 2025 02:04 PM PRIMARY Other chronic pancreatitis Kimber GREENE [facility] Plan of Treatment: Future Appointments (+ [...] Appointment Type Appointme nt Facility Name Jun 08, 2025 07:45 AM AMBULATORY - NONE [place] [facility] Jul 26, 2025 11:00 AM AMBULATORY - REHAB [facility] Jul 27, 2025 11:00 AM AMBULATORY - PSYCHIATRY [facility] Active, Pending, and Scheduled Orders This section includes a listing of several types of active, pending, and scheduled orders, including clinic medications orders, diagnostic test orders, procedure orders and consult orders; where the start date of the order is 45 days before the date of the Encounter or 45 days after the date of theEncounter. The data comes from all [place] treatment facilities. Test Date/Time Test Type Test Details Facility Name May 17, 2025 07:19 PM Consult Order COLONOSCOP Y DIAGNOSTIC OUTPT Cons Ob Gyn Physician Assistant's Choice [facility] Lab Results: +/- 30 [...] Type Comment May 30, 2025 03:17 PM [facility] C.TRACHOMATIS/N.GONORRHEA DNA VAGINA Specimen Type: VAGINA No comment entered. Ordering Provider: NILA GRACIA Report Released Date/Time: May 04, 2025 02:22 PM Reporting Lab: [facility] [id number] Performing Lab: [facility] [id number] C.TRACHOMATIS DNANOT DETECTEDN.GONORRHEA DNANOT DETECTEDCT/NG INTERPRETATION Infectious agent DNA is not detected by this assayMay 30, 2025 02:43 [place] CBOCHUMAN PAPILLOMA VIRUS,DNA HIGH RISKCERVICAL VAGINAL CYTOLOGIC MATERIAL Specimen Type: CERVICAL VAGINAL CYTOLOGIC MATERIAL No comment entered. Ordering Provider: NILA GRACIA Report Released Date/Time: May 30, 2025 02:45 PM Reporting Lab: [facility] [id number] Performing Lab: [facility] [id number] HPV 16NEGATIVEHPV 18NEGATIVEOTHER HIGH RISK HPVNEGATIVEHPV INTERPRETATIONHR-HPV is undetectable or below preset threshold. Vital Signs: All taken on the encounter date This section contains inpatient and outpatient Vital Signs collected on the date of the Encounter. Date/Time Temperature Pulse Blood Pressure Respiratory Rate SP02 Pain Height Weight Body Mass Index Source Jun 06, 2025 01:29 PM 132/81 mm[Hg][facility] 01[facility]24 PM97.9 F94 /min18 /min98 % 227.4 sh90VCSEFFIXPQD [facility] Social History: Smoking Status (Most current) and [...] 05, 2024 12:00 PM VA-TOBACCO FORMER USER [facility] Tobacco Use History This section includes a history of the smoking, or tobacco-related health factors, that were collected on or before the date of the Encounter. The data comes from the [place] facility where the Encounter took place. Date/Time Smoking Status/Tobacco Use Comment F acility Jan 05, 2024 12:00 PM PA-TOBACCO QUIT 5 TO < 15 YRS [facility] Advance Directives: All historical and current [...] 05, 2024 ADVANCE DIRECTIVE DISCUSSION SHAHID HURTADO [facility] Radiology Reports: +/- 30 days of [...] the Encounter. The data comes from all [place] treatment facilities. Date/Time Radiology Report Provider Source Jun 08, 2025 07:44 AM US PELVIC (FEMALE) (P): BILLIE ZAVALA [id number] -[phone] F Exm Date: JUN 08, 2025@07:44 Req Phys: NILA GRACIA Pat Loc: [facility] PACT DIAMONDS WH (Req'g Lo Img Loc: Ultrasound Imaging Service: Unknown Screen: Patient answered [place] [address] (Case [id number] COMPLETE) US PELVIC (US Detailed) CPT:34187 Proc Modifiers : [id number] Reason for Study: bleeding after intercourse (Case [id number] COMPLETE) US VISCERAL VASCULAR ABDOMEN LIMI(US Detailed) CPT:42993 (Case 1683 COMPLETE) US TRANSVAGINAL (US Detailed) CPT:99267 Clinical History: bleeding after intercourse My pager number on record is: [phone]. I confirm that the pager number/cell phone number above is correct for reporting critical results. Trainees only: Enter your staff provider's info here: LAST CREATININE 1.0 (08/18/24) Report Status: Verified Date Reported: JUN 08, 2025 Date Verified: JUN 08, 2025 Wet Process Assistant Head Miller E-Sig:/ES/DIPTI RANDHAWA MD Report: EXAMINATION: US PELVIC, [...] Primary Interpreting Staff: DIPTI RANDHAWA MD, RADIOLOGIST (Wet Process Assistant Head Miller) /DIPTI BARRON [facility] Pathology Reports: +/- 30 days of the [...] the Encounter. The data comes from all [place] treatment facilities. Date/Time Pathology Report Provider Source Jun 08, 2025 11:11 AM LR CYTOPATHOLOGY R EPORT: LOCAL TITLE: LR CYTOPATHOLOGY REPORT STANDARD TITLE: PATHOLOGY REPORT DATE OF NOTE: JUN 08, 2025@11:11:10 ENTRY DATE: JUN 08, 2025@11:11:10 AUTHOR: LOYDA SEGAL EXP COSIGNER: URGENCY: STATUS: COMPLETED $APHDR Reporting Lab: [facility] [CLIA# [id number]] [place] [address] - - - - - - - [...] or other cancers. Microscopic: Microscopic examination performed. [facility] Diagnosis: Specimen adequacy: SATISFACTORY FOR EVALUATION. ENDOCERVICAL/TRANSFORMATION ZONE COMPONENT NOT IDENTIFIED. Interpretation: NEGATIVE FOR INTRAEPITHELIAL LESION OR MALIGNANCY. A computer-aided imaging and review system was used to analyze the cytology specimen (Allclasses System). The HPV results are available in CPRS /lilia/ TAMICA CUEVA(ASC) [employer] CON[employer]ODU[employer] INSTALLER,PATHOLOGY AND LABORATORY [facility] Signed Jun 08, 2025@11:11 Performing Laboratory: Cytology Report Performed By: [facility] [CLIA# [id number]] [place] [address] $FTR - - - - - - - - - - - - - - - - - - - - - - - - - - - - - - - - - - - - - - - - (End of report) LOYDA SEGAL cm Date Jun 08, 2025 - - - - - - - - - - - - - - - - - - - - - - - - - - - - - - - - - - - - - - - - QUINTIN ZAVALA STANDARD FORM 515 ID:[id number] SEX:F :1980 AGE: 44 LOC:[id number] PCP: Nila Gracia /lilia/ TAMICA CUEVA(ASC) [employer] INSTALLER,PATHOLOGY AND LABORATORY [facility] Signed: 06/08/2025 11:11LOYDA SEGALNOV[facility] Encounter Notes: All associated encounter notes This section contains the clinical notes associated to the Encounter. Date/Time Encounter Note(s) Provider Source Jun 06, 2025 04:50 PM ADDENDUM: LOCAL TITLE: Addendum STANDARD TITLE: ADDENDUM DATE OF NOTE: JUN 06, 2025@16:50:12 ENTRY DATE: JUN 06, 2025@16:50:13 AUTHOR: NILA GRACIA EXP COSIGNER: URGENCY: STATUS: COMPLETED Please update that as per GI it is okay to restart statin. So I have renewed her atorvastatin. We will recheck labs at 6 months and if needed we can add fibrate as well for elevated triglyceride. I have already placed 6 months lab order lab order for 6 months recheck. /lilia/ NILA GRACIA DNP,HOSPITAL CODER,ARDMS Signed: 06/06/2025 16:51 Receipt Acknowledged By: 06/08/2025 13:37 /lilia/ TALI MARCUM REGISTERED NURSE --- Original Document --- 06/06/25 GASTROENTEROLOGY CONSULT: GASTROENTEROLOGY CONSULT Chief Complaint: Chronic pancreatitis History of Present Illness (HPI) 44 yo female with a history of obesity, HLD, chronic pancreatitis, unclear etiology s/p intermittent PD stenting (last removed 2022, last ERCP 2022) and intraabdominal nerve blocks who presents to GI clinic via referral from PCP regarding whether statin can be resumed with history of pancreatitis. Patient states that she feels well from a health standpoint. She has some intermittent constipation and intermittent epigastric discomfort but otherwise no other acute/overt complaints. She does not report any fevers, chills, nausea, vomiting, or melena/hematochezia. She was seen by Dr Serrato at the [facility] and was recommended to have a ESG but has not been able to schedule follow up. She does not drink alcohol or smoke tobacco. She has no further acute complaints or concerns at this time. Past Medical History: Active problems - Computerized Problem List is the source for the followin. Cancer cervix screening status - 06/12/2020 PAP NILM/HPV Neg,HR [facility]. Next due for co-test in 5 years, 05/2025. - Next Pap due in 2024 2. 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 Generalized anxiety disorder 5. Major depressive disorder 6. History of post-traumatic stress disorder - team at [facility] 7. Hyperlipidemia - On statin 8. Dysfunction of sphincter of Oddi (SNOMED CT [id number]) - cholecystectomy and multiple ERCPs, followed [facility] in the past, - 2015 9. Posttraumatic stress disorder 10. No significant change since previous mammogram - recent mammo on 04/01/23-ACR BI-RADS Category 1 - Negative. 11. History of appendectomy - Mar 2005, [facility] 12. History of cholecystectomy - Oct 2005, [facility] 13. Chronic fatigue syndrome Past Surgical History: See above Family History: [place] Social History: No alcohol or tobacco use Allergies: PFIZER COVID-19 VACCINE (EUA) (Mar 26, 2023) FENTANYL (Mar 26, 2023) INFLUENZA (Mar 26, 2023) MIRALAX (Mar 26, 2023) Review of System: ROS negative if unless otherwise stated above Physical Exam: Temp: 97.9 F [36.6 C] (06/06/2025 13:24) Pulse:94 (06/06/2025 13:24) BP: 132/81 (06/06/2025 13:29) Resp: 18 (06/06/2025 13:24) Weight: 227.4 lb [103.15 kg] (06/06/2025 13:24) Pain: 0 (05/30/2025 14:14) O2 Sat: 98% (06/06/2025 13:24) BMI: 34.6 General: Well appearing female. NAD. Answers all questions appropriately HEENT: MMM Cardio: RRR Lungs: On room air, no distress Abd: Soft NT mild tenderness with deep palpation in epigastrium. No guarding. Extrem: Moving all extremities spontaneously Neuro: NFD Labs: - INR: INR 1.0 PLASMA (06/23/24 13:45) - Complete Blood Count White count: WBC 5.5 (08/18/24) Hemoglobin: HGB 13.0 (08/18/24) Hematocrit: HCT 38.2 (08/18/24) Platelets: PLT 344 (08/18/24) - Complete Metabolic Panel SODIUM 139 (05/04/25) POTASSIUM 3.5 (05/04/25) CHLORIDE 105 (05/04/25) CO2 25 (05/04/25) UREA NITROGEN 9 (05/04/25) CREATININE 1.1 H (05/04/25) GLUCOSE 85 (05/04/25) CALCIUM 9.1 (05/04/25) MAGNESIUM 2.1 (05/04/25) EGFR (02/21) - NONE FOUND - 5Y CREATININE EGFR (CKD-EPI) 05/04/2025@1438 63 AST/SGOT 18 (08/18/24) ALT/SGPT 22 (08/18/24) ALK PHOSPHATASE 51 (08/18/24) ALBUMIN 4.3 (08/18/24) BILIRUBIN, TOTAL 0.5 (08/18/24) Urinalysis: URINE COLOR YELLOW (05/04/25) APPEARANCE TURBID (05/04/25) SPECIFIC GRAVITY 1.034 (05/04/25) URINE PH 6.0 (05/04/25) URINE BILIRUBIN NEGATIVE (05/04/25) URINE KETONES TRACE H (05/04/25) URINE GLUCOSE NEGATIVE (05/04/25) URINE PROTEIN 30 H (05/04/25) URINE HEME TRACE H (05/04/25) LEUKOCYTE ESTERASE NEGATIVE (05/04/25) URINE NITRITE NEGATIVE (05/04/25) URINE BACTERIA FEW H (05/04/25) URINE WBC/HPF 1 (05/04/25) URINE RBC/HPF 3 (05/04/25) Active and Recently Outpatient Medications (including Supplies): Active Outpatient Medications Status 1) BUPROPION HCL 300MG 24HR SA TAB TAKE ONE TABLET BY MOUTH ACTIVE EVERY MORNING FOR DEPRESSION Indication: FOR DEPRESSION 2) EPINEPHRINE (EQV-EPI-PEN) 0.3MG/0.3ML INJECT 1 PEN ACTIVE DIRECTED NEEDED FOR ALLERGIC REACTION Indication: FOR ALLERGIC REACTION 3) FEXOFENADINE HCL 180MG TAB TAKE ONE TABLET BY MOUTH EVERY ACTIVE MORNING FOR ALLERGIES Indication: FOR ALLERGIES 4) NALOXONE HCL 4MG/SPRAY SOLN NASAL SPRAY SPRAY 1 DOSE IN ONE ACTIVE NOSTRIL DIRECTED FOR UNRESPONSIVENESS THEN CALL 911 - IF NO CHANGE IN 2-3 MINUTES, GIVE SECOND DOSE IN OPPOSITE NOSTRIL Indication: FOR UNRESPONSIVENESS THEN CALL 911 5) ONDANSETRON 4MG ORAL DISINTEGRATING TAB DISSOLVE ONE TABLET ACTIVE BY UNDER THE TONGUE EVERY 6 HOURS NEEDED FOR NAUSEA AND VOMITING Indication: FOR NAUSEA AND VOMITING 6) PRAZOSIN HCL 2MG CAP TAKE TWO CAPSULES BY MOUTH AT BEDTIME ACTIVE FOR NIGHTMARES Indication: FOR NIGHTMARES 7) QUETIAPINE FUMARATE 300MG TAB TAKE ONE TABLET BY MOUTH AT ACTIVE BEDTIME FOR DEPRESSION Indication: FOR DEPRESSION 8) QUETIAPINE FUMARATE 50MG TAB TAKE TWO TABLETS BY MOUTH EVERY ACTIVE MORNING FOR 14 DAYS, THEN TAKE ONE TABLET EVERY MORNING FOR MOOD Indication: FOR MOOD 9) TRAZODONE HCL 50MG TAB TAKE ONE TABLET BY MOUTH AT BEDTIME ACTIVE NEEDED FOR SLEEP Indication: FOR SLEEP Inactive Outpatient Medications Status 1) ALBUTEROL 90MCG (CFC-F) 200D ORAL INHL INHALE 1 PUFF BY DISCONTINUED INHALATION FOUR TIMES A DAY NEEDED FOR SHORTNESS OF BREATH Indication: FOR SHORTNESS OF BREATH 2) ATORVASTATIN CALCIUM 40MG TAB TAKE ONE TABLET BY MOUTH AT BEDTIME FOR CHOLESTEROL Indication: FOR CHOLESTEROL 3) BUPROPION HCL 150MG 24HR SA TAB TAKE ONE TABLET BY MOUTH DISCONTINUED EVERY MORNING FOR 14 DAYS, THEN TAKE TWO TABLETS EVERY (EDIT) MORNING FOR DEPRESSION Indication: FOR DEPRESSION 4) BUPROPION HCL 300MG 24HR SA TAB TAKE ONE TABLET BY MOUTH DISCONTINUED EVERY MORNING FOR DEPRESSION (EDIT) Indication: FOR DEPRESSION 5) CREON 12,000UNIT EC CAP TAKE 1 CAPSULE BY MOUTH DIRECTED WITH SNACKS FOR PANCREAS : SWALLOW WHOLE AND FOLLOW WITH WATER OR JUICE TO ENSURE NO MEDICATION REMAINS IN MOUTH. Indication: FOR PANCREAS 6) CREON 24,000UNIT EC CAP TAKE 1 CAPSULE BY MOUTH THREE TIMES A DAY WITH MEALS FOR PANCREAS : SWALLOW WHOLE AND FOLLOW WITH WATER OR JUICE TO ENSURE NO MEDICATION REMAINS IN MOUTH. HOLD IF NOT EATING. Indication: FOR PANCREAS 7) DULOXETINE HCL 60MG EC CAP TAKE TWO CAPSULES BY MOUTH EVERY DAY FOR DEPRESSION Indication: FOR DEPRESSION 8) ENFIT ENTERAL CLEANING BRUSH USE 1 BRUSH TOPICALLY EVERY DAY DISCONTINUED 9) EPINEPHRINE (EQV-EPI-PEN) 0.3MG/0.3ML INJECT 1 PEN DISCONTINUED DIRECTED NEEDED FOR ALLERGIC REACTION Indication: FOR ALLERGIC REACTION 10) FEED SET 1000ML PUMP SET CARD#[id number] USE 1 BAG BY DISCONTINUED DIRECTED 11) FEXOFENADINE HCL 180MG TAB TAKE ONE TABLET BY MOUTH EVERY DISCONTINUED MORNING FOR ALLERGIES Indication: FOR ALLERGIES 12) NUTR SUPL VITAL AF 1.2 TYSON LIQUID 1 CAN BY FEEDING TUBE DISCONTINUED THREE TIMES A DAY 75 ML/HR X 10 HRS (OR UNTIL 3 CANS INFUSE) WITH FWF 30 MLS AT START/STOP OF FEEDING Indication: TUBE FEEDING 13) NUTRITION SUPL ENSURE CLEAR LIQ/M DOSHI 1 CARTON BY MOUTH DISCONTINUED EVERY DAY FOR NUTRITIONAL SUPPLEMENT Indication: FOR NUTRITIONAL SUPPLEMENT 14) ONDANSETRON 4MG ORAL DISINTEGRATING TAB DISSOLVE ONE TABLET DISCONTINUED BY UNDER THE TONGUE EVERY 6 HOURS NEEDED FOR NAUSEA AND VOMITING Indication: FOR NAUSEA AND VOMITING 15) PRAZOSIN HCL 2MG CAP TAKE ONE CAPSULE BY MOUTH AT BEDTIME DISCONTINUED FOR 3 DAYS, THEN TAKE TWO CAPSULES AT BEDTIME FOR NIGHTMARES Indication: FOR NIGHTMARES 16) PRAZOSIN HCL 2MG CAP TAKE TWO CAPSULES BY MOUTH AT BEDTIME DISCONTINUED FOR NIGHTMARES Indication: FOR NIGHTMARES 17) QUETIAPINE FUMARATE 200MG TAB TAKE ONE TABLET BY MOUTH EVERY DISCONTINUED MORNING FOR DEPRESSION (EDIT) Indication: FOR DEPRESSION 18) QUETIAPINE FUMARATE 300MG TAB TAKE ONE TABLET BY MOUTH AT DISCONTINUED BEDTIME FOR DEPRESSION (EDIT) Indication: FOR DEPRESSION 19) SYRINGE,FEEDING ENFIT 60ML USE 1 SYRINGE THREE TIMES A DISCONTINUED WEEK 60ML 20) TAPE,PLASTIC 1IN X 10YD TRANSPORE CUT AND APPLY TAPE DISCONTINUED TOPICALLY NEEDED 21) TRAZODONE HCL 50MG TAB TAKE ONE TABLET BY MOUTH AT BEDTIME DISCONTINUED NEEDED FOR SLEEP (EDIT) Indication: FOR SLEEP Active Non-VA Medications Status 1) Non-VA CETIRIZINE HCL 10MG TAB 20MG MOUTH EVERY DAY ACTIVE NEEDED 2) Non-VA HYDROMORPHONE HCL 2MG TAB 4MG MOUTH EVERY 6 HOURS ACTIVE NEEDED Indication: FOR PAIN 3) Non-VA MULTIVITAMINS CAP/TAB MOUTH ACTIVE Inactive Non-VA Medications Status 1) Non-VA DOXYCYCLINE HYCLATE 50MG CAP 100MG MOUTH TWICE A DAY DISCONTINUED Indication: FOR LYME DISEASE 2) Non-VA NITROFURANTOIN MONO/MACRO 100MG SA CAP 100MG MOUTH DISCONTINUED TWICE A DAY Indication: FOR URINARY TRACT INFECTION 35 Total Medications No Active Remote Medications for this patient Imaging See chart Assessment/Plan: #Chronic Pancreatitis Patient established with [facility] clinic. She last had an EGD in 2022 at which she had a PD stent removed. She does not report any concering history or symptoms at this time. She takes regular Creon with good effect. -- No further imaging/procedures indicated unless symptomatic -- Continue RELAY RECORD CLERK Creon, titrate to benefit as necessary #HLD #Obesity No contraindication for starting a statin in a patient with history of pancreatitis. Very minimal/poor evidence in literature to suggest pancreatitis triggered by statins. -- Okay to resume RELAY RECORD CLERK Statin -- Evidence to suggestive effiacy with Fibrate + Statin for better treatment respone -- [facility] - continue to reach out to [facility] clinic about follow up RTC: PRN Plan discussed with attending, Dr Charles /lilia/ CINDY GREENE MD GASTROENTEROLOGY FELLOW Signed: 06/06/2025 14:03 Receipt Acknowledged By: 06/06/2025 16:50 /lilia/ NILA GRACIA DNP, APRN,PETRONA 06/08/2025 ADDENDUM STATUS: UNSIGNED You may not VIEW this UNSIGNED Addendum.NILA GRACIA [facility] 2024 01:53 PMGASTROENTEROLOGY CONSULT: LOCAL TITLE: GASTROENTEROLOGY CONSULT STANDARD TITLE: GASTROENTEROLOGY CONSULT DATE OF NOTE: JUN 06, 2025@13:53 ENTRY DATE: JUN 06, 2025@13:53:39 AUTHOR: CINDY GREENE COSIGNER: URGENCY: STATUS: COMPLETED GASTROENTEROLOGY CONSULT Has ADDENDA GASTROENTEROLOGY CONSULT Chief Complaint: Chronic pancreatitis History of Present Illness (HPI) 44 yo female with a history of obesity, HLD, chronic pancreatitis, unclear etiology s/p intermittent PD stenting (last removed 2022, last ERCP 2022) and intraabdominal nerve blocks who presents to GI clinic via referral from PCP regarding whether statin can be resumed with history of pancreatitis. Patient states that she feels well from a health standpoint. She has some intermittent constipation and intermittent epigastric discomfort but otherwise no other acute/overt complaints. She does not report any fevers, chills, nausea, vomiting, or melena/hematochezia. She was seen by Dr Serrato at the [facility] and was recommended to have a ESG but has not been able to schedule follow up. She does not drink alcohol or smoke tobacco. She has no further acute complaints or concerns at this time. Past Medical History: Active problems - Computerized Problem List is the source for the followin. Cancer cervix screening status - 06/12/2020 PAP NILM/HPV Neg,HR [facility]. Next due for co-test in 5 years, 05/2025. - Next Pap due in 2024 2. 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 Generalized anxiety disorder 5. Major depressive disorder 6. History of post-traumatic stress disorder - team at [facility] 7. Hyperlipidemia - On statin 8. Dysfunction of sphincter of Oddi (SNOMED CT [id number]) - cholecystectomy and multiple ERCPs, followed [facility] in the past, - 2015 9. Posttraumatic stress disorder 10. No significant change since previous mammogram - recent mammo on 04/01/23-ACR BI-RADS Category 1 - Negative. 11. History of appendectomy - Mar 2005, [facility] 12. History of cholecystectomy - Oct 2005, [facility] 13. Chronic fatigue syndrome Past Surgical History: See above Family History: [place] Social History: No alcohol or tobacco use Allergies: PFIZER COVID-19 VACCINE (EUA) (Mar 26, 2023) FENTANYL (Mar 26, 2023) INFLUENZA (Mar 26, 2023) MIRALAX (Mar 26, 2023) Review of System: ROS negative if unless otherwise stated above Physical Exam: Temp: 97.9 F [36.6 C] (06/06/2025 13:24) Pulse:94 (06/06/2025 13:24) BP: 132/81 (06/06/2025 13:29) Resp: 18 (06/06/2025 13:24) Weight: 227.4 lb [103.15 kg] (06/06/2025 13:24) Pain: 0 (05/30/2025 14:14) O2 Sat: 98% (06/06/2025 13:24) BMI: 34.6 General: Well appearing female. NAD. Answers all questions appropriately HEENT: MMM Cardio: RRR Lungs: On room air, no distress Abd: Soft NT mild tenderness with deep palpation in epigastrium. No guarding. Extrem: Moving all extremities spontaneously Neuro: NFD Labs: - INR: INR 1.0 PLASMA (06/23/24 13:45) - Complete Blood Count White count: WBC 5.5 (08/18/24) Hemoglobin: HGB 13.0 (08/18/24) Hematocrit: HCT 38.2 (08/18/24) Platelets: PLT 344 (08/18/24) - Complete Metabolic Panel SODIUM 139 (05/04/25) POTASSIUM 3.5 (05/04/25) CHLORIDE 105 (05/04/25) CO2 25 (05/04/25) UREA NITROGEN 9 (05/04/25) CREATININE 1.1 H (05/04/25) GLUCOSE 85 (05/04/25) CALCIUM 9.1 (05/04/25) MAGNESIUM 2.1 (05/04/25) EGFR (02/21) - NONE FOUND - 5Y CREATININE EGFR (CKD-EPI) 05/04/2025@1438 63 AST/SGOT 18 (08/18/24) ALT/SGPT 22 (08/18/24) ALK PHOSPHATASE 51 (08/18/24) ALBUMIN 4.3 (08/18/24) BILIRUBIN, TOTAL 0.5 (08/18/24) Urinalysis: URINE COLOR YELLOW (05/04/25) APPEARANCE TURBID (05/04/25) SPECIFIC GRAVITY 1.034 (05/04/25) URINE PH 6.0 (05/04/25) URINE BILIRUBIN NEGATIVE (05/04/25) URINE KETONES TRACE H (05/04/25) URINE GLUCOSE NEGATIVE (05/04/25) URINE PROTEIN 30 H (05/04/25) URINE HEME TRACE H (05/04/25) LEUKOCYTE ESTERASE NEGATIVE (05/04/25) URINE NITRITE NEGATIVE (05/04/25) URINE BACTERIA FEW H (05/04/25) URINE WBC/HPF 1 (05/04/25) URINE RBC/HPF 3 (05/04/25) Active and Recently Outpatient Medications (including Supplies): Active Outpatient Medications Status 1) BUPROPION HCL 300MG 24HR SA TAB TAKE ONE TABLET BY MOUTH ACTIVE EVERY MORNING FOR DEPRESSION Indication: FOR DEPRESSION 2) EPINEPHRINE (EQV-EPI-PEN) 0.3MG/0.3ML INJECT 1 PEN ACTIVE DIRECTED NEEDED FOR ALLERGIC REACTION Indication: FOR ALLERGIC REACTION 3) FEXOFENADINE HCL 180MG TAB TAKE ONE TABLET BY MOUTH EVERY ACTIVE MORNING FOR ALLERGIES Indication: FOR ALLERGIES 4) NALOXONE HCL 4MG/SPRAY SOLN NASAL SPRAY SPRAY 1 DOSE IN ONE ACTIVE NOSTRIL DIRECTED FOR UNRESPONSIVENESS THEN CALL 911 - IF NO CHANGE IN 2-3 MINUTES, GIVE SECOND DOSE IN OPPOSITE NOSTRIL Indication: FOR UNRESPONSIVENESS THEN CALL 911 5) ONDANSETRON 4MG ORAL DISINTEGRATING TAB DISSOLVE ONE TABLET ACTIVE BY UNDER THE TONGUE EVERY 6 HOURS NEEDED FOR NAUSEA AND VOMITING Indication: FOR NAUSEA AND VOMITING 6) PRAZOSIN HCL 2MG CAP TAKE TWO CAPSULES BY MOUTH AT BEDTIME ACTIVE FOR NIGHTMARES Indication: FOR NIGHTMARES 7) QUETIAPINE FUMARATE 300MG TAB TAKE ONE TABLET BY MOUTH AT ACTIVE BEDTIME FOR DEPRESSION Indication: FOR DEPRESSION 8) QUETIAPINE FUMARATE 50MG TAB TAKE TWO TABLETS BY MOUTH EVERY ACTIVE MORNING FOR 14 DAYS, THEN TAKE ONE TABLET EVERY MORNING FOR MOOD Indication: FOR MOOD 9) TRAZODONE HCL 50MG TAB TAKE ONE TABLET BY MOUTH AT BEDTIME ACTIVE NEEDED FOR SLEEP Indication: FOR SLEEP Inactive Outpatient Medications Status 1) ALBUTEROL 90MCG (CFC-F) 200D ORAL INHL INHALE 1 PUFF BY DISCONTINUED INHALATION FOUR TIMES A DAY NEEDED FOR SHORTNESS OF BREATH Indication: FOR SHORTNESS OF BREATH 2) ATORVASTATIN CALCIUM 40MG TAB TAKE ONE TABLET BY MOUTH AT BEDTIME FOR CHOLESTEROL Indication: FOR CHOLESTEROL 3) BUPROPION HCL 150MG 24HR SA TAB TAKE ONE TABLET BY MOUTH DISCONTINUED EVERY MORNING FOR 14 DAYS, THEN TAKE TWO TABLETS EVERY (EDIT) MORNING FOR DEPRESSION Indication: FOR DEPRESSION 4) BUPROPION HCL 300MG 24HR SA TAB TAKE ONE TABLET BY MOUTH DISCONTINUED EVERY MORNING FOR DEPRESSION (EDIT) Indication: FOR DEPRESSION 5) CREON 12,000UNIT EC CAP TAKE 1 CAPSULE BY MOUTH DIRECTED WITH SNACKS FOR PANCREAS : SWALLOW WHOLE AND FOLLOW WITH WATER OR JUICE TO ENSURE NO MEDICATION REMAINS IN MOUTH. Indication: FOR PANCREAS 6) CREON 24,000UNIT EC CAP TAKE 1 CAPSULE BY MOUTH THREE TIMES A DAY WITH MEALS FOR PANCREAS : SWALLOW WHOLE AND FOLLOW WITH WATER OR JUICE TO ENSURE NO MEDICATION REMAINS IN MOUTH. HOLD IF NOT EATING. Indication: FOR PANCREAS 7) DULOXETINE HCL 60MG EC CAP TAKE TWO CAPSULES BY MOUTH EVERY DAY FOR DEPRESSION Indication: FOR DEPRESSION 8) ENFIT ENTERAL CLEANING BRUSH USE 1 BRUSH TOPICALLY EVERY DAY DISCONTINUED 9) EPINEPHRINE (EQV-EPI-PEN) 0.3MG/0.3ML INJECT 1 PEN DISCONTINUED DIRECTED NEEDED FOR ALLERGIC REACTION Indication: FOR ALLERGIC REACTION 10) FEED SET 1000ML PUMP SET CARD#[id number] USE 1 BAG BY DISCONTINUED DIRECTED 11) FEXOFENADINE HCL 180MG TAB TAKE ONE TABLET BY MOUTH EVERY DISCONTINUED MORNING FOR ALLERGIES Indication: FOR ALLERGIES 12) NUTR SUPL VITAL AF 1.2 TYSON LIQUID 1 CAN BY FEEDING TUBE DISCONTINUED THREE TIMES A DAY 75 ML/HR X 10 HRS (OR UNTIL 3 CANS INFUSE) WITH FWF 30 MLS AT START/STOP OF FEEDING Indication: TUBE FEEDING 13) NUTRITION SUPL ENSURE CLEAR LIQ/M DOSHI 1 CARTON BY MOUTH DISCONTINUED EVERY DAY FOR NUTRITIONAL SUPPLEMENT Indication: FOR NUTRITIONAL SUPPLEMENT 14) ONDANSETRON 4MG ORAL DISINTEGRATING TAB DISSOLVE ONE TABLET DISCONTINUED BY UNDER THE TONGUE EVERY 6 HOURS NEEDED FOR NAUSEA AND VOMITING Indication: FOR NAUSEA AND VOMITING 15) PRAZOSIN HCL 2MG CAP TAKE ONE CAPSULE BY MOUTH AT BEDTIME DISCONTINUED FOR 3 DAYS, THEN TAKE TWO CAPSULES AT BEDTIME FOR NIGHTMARES Indication: FOR NIGHTMARES 16) PRAZOSIN HCL 2MG CAP TAKE TWO CAPSULES BY MOUTH AT BEDTIME DISCONTINUED FOR NIGHTMARES Indication: FOR NIGHTMARES 17) QUETIAPINE FUMARATE 200MG TAB TAKE ONE TABLET BY MOUTH EVERY DISCONTINUED MORNING FOR DEPRESSION (EDIT) Indication: FOR DEPRESSION 18) QUETIAPINE FUMARATE 300MG TAB TAKE ONE TABLET BY MOUTH AT DISCONTINUED BEDTIME FOR DEPRESSION (EDIT) Indication: FOR DEPRESSION 19) SYRINGE,FEEDING ENFIT 60ML USE 1 SYRINGE THREE TIMES A DISCONTINUED WEEK 60ML 20) TAPE,PLASTIC 1IN X 10YD TRANSPORE CUT AND APPLY TAPE DISCONTINUED TOPICALLY NEEDED 21) TRAZODONE HCL 50MG TAB TAKE ONE TABLET BY MOUTH AT BEDTIME DISCONTINUED NEEDED FOR SLEEP (EDIT) Indication: FOR SLEEP Active Non-VA Medications Status 1) Non-VA CETIRIZINE HCL 10MG TAB 20MG MOUTH EVERY DAY ACTIVE NEEDED 2) Non-VA HYDROMORPHONE HCL 2MG TAB 4MG MOUTH EVERY 6 HOURS ACTIVE NEEDED Indication: FOR PAIN 3) Non-VA MULTIVITAMINS CAP/TAB MOUTH ACTIVE Inactive Non-VA Medications Status 1) Non-VA DOXYCYCLINE HYCLATE 50MG CAP 100MG MOUTH TWICE A DAY DISCONTINUED Indication: FOR LYME DISEASE 2) Non-VA NITROFURANTOIN MONO/MACRO 100MG SA CAP 100MG MOUTH DISCONTINUED TWICE A DAY Indication: FOR URINARY TRACT INFECTION 35 Total Medications No Active Remote Medications for this patient Imaging See chart Assessment/Plan: #Chronic Pancreatitis Patient established with [facility]. She last had an EGD in 2022 at which she had a PD stent removed. She does not report any concering history or symptoms at this time. She takes regular Creon with good effect. -- No further imaging/procedures indicated unless symptomatic -- Continue RELAY RECORD CLERK Creon, titrate to benefit as necessary #HLD #Obesity No contraindication for starting a statin in a patient with history of pancreatitis. Very minimal/poor evidence in literature to suggest pancreatitis triggered by statins. -- Okay to resume RELAY RECORD CLERK Statin -- Evidence to suggestive effiacy with Fibrate + Statin for better treatment respone -- D[facility] - continue to reach out to [facility] about follow up RTC: PRN Plan discussed with attending, Dr Charles /lilia/ CINDY GREENE MD GASTROENTEROLOGY FELLOW Signed: 06/06/2025 14:03 Receipt Acknowledged By: 06/06/2025 16:50 /lilia/ NILA GRACIA DNP, APRN, ARDMS 06/06/2025 ADDENDUM STATUS: COMPLETED Please update that as per GI it is okay to restart statin. So I have renewed her atorvastatin. We will recheck labs at 6 months and if needed we can add fibrate as well for elevated triglyceride. I have already placed 6 months lab order lab order for 6 months recheck. /lilia/ NILA GRACIA DNP, APRN, ARDMS Signed: 06/06/2025 16:51 Receipt Acknowledged By: 06/08/2025 13:37 /lilia/ TALI MARCUM REGISTERED NURSE 06/08/2025 ADDENDUM STATUS: COMPLETED Vet is agreeable to restart her atorvastatin. Vet declined to schedule 6 month lipid panel recheck today, but agrees to call clinic to schedule. /lilia/ TALI MARCUM REGISTERED NURSE Signed: 06/08/2025 13:37CINDY GREENE [facility] 2024 01:31 PMINTERNAL MEDICINE OUTPATIENT NOTE: LOCAL TITLE: MEDICINE CLINIC NURSING NOTE STANDARD TITLE: INTERNAL MEDICINE OUTPATIENT NOTE DATE OF NOTE: JUN 06, 2025@13:31 ENTRY DATE: JUN 06, 2025@13:31:06 AUTHOR: GLADYS ROLAND COSIGNER: URGENCY: STATUS: COMPLETED TYPE OF VISIT: Appointment Check In Type of appointment: In-person appointment REASON FOR VISIT: gastroenterology ALLERGIES: PFIZER COVID-19 VACCINE (EUA) (Mar 26, 2023) FENTANYL (Mar 26, 2023) INFLUENZA (Mar 26, 2023) MIRALAX (Mar 26, 2023) VITAL SIGNS: Blood Pressure: 132/81 (06/06/2025 13:29) Pulse: 94 (06/06/2025 13:24) Respiration: 18 (06/06/2025 13:24) Temperature: 97.9 F [36.6 C] (06/06/2025 13:24) Weight: 227.4 lb [103.15 kg] (06/06/2025 13:24) Height: 68 in [172.7 cm] (02/23/2025 11:09) BMI: 34.6 O2 Sat: 98% (06/06/2025 13:24) Pain: 0 (05/30/2025 14:14) MEDICATION Over the Counter/Herbal Medications: The patient states that they take some outside medications and/or herbals. /lilia/ GLADYS ROLAND LPN LICENSED PRACTICAL NURSE Signed: 06/06/2025 13:31[facility]YS [facility]AND [facility]
--- OUTSIDE RECORDS SUMMARY | 2025-06-08 03:16 | XMS_ITS | Encounter Summary ---
Author Name [facility] [place] [facility] [place] [facility] [place] Address [address] [place] [address] Care Team Providers Care Warehouse Distribution Associate Name Role Phone NILA GRACIA Primary Care Provider Unavailabl e Selected Encounter This section includes the information on record at [place] for the Encounter. Date/Time Encounter Type Encounter Description Reason Pro vider Source Jun 08, 2025 09:16 AM Outpatient Encounter GENER AL SURGERY IHE Encounter Template Text not used by [place] Plan of Treatment: Future Appointments (+ 6 [...] Appointment Type Appointme nt Facility Name Jul 26, 2025 11:00 AM AMBULATORY - [facility] Jul 27, 2025 11:00 AM AMBULATORY [...] of theEncounter. The data comes from all [place] treatment facilities. Test Date/Time Test Type Test Details Facility Name May 17, 2025 07:19 PM Consult Order COLONOSCOP Y DIAGNOSTIC OUTPT Cons Plug Drill Operator's Choice DEEPIKA NOEL Lab Results: +/- 30 [...] Comment May 30, 2025 03:17 PM DEEPIKA NOEL C.TRACHOMATIS/N.GONORRHEA DNA VAGINA Specimen Type: VAGINA No comment entered. Ordering Provider: NILA GRACIA Report Released Date/Time: May 04, 2025 02:22 PM Reporting Lab: [facility] [id number] Performing Lab: [facility] [address] C.TRACHOMATIS DNANOT DETECTEDN.GONORRHEA DNANOT DETECTEDCT/NG INTERPRETATION Infectious agent DNA is not detected by this assayMay 30, 2025 02:43 [place] CBOCHUMAN PAPILLOMA VIRUS,DNA HIGH RISKCERVICAL VAGINAL CYTOLOGIC MATERIAL Specimen Type: CERVICAL VAGINAL CYTOLOGIC MATERIAL No comment entered. Ordering Provider: NILA GRACIA Report Released Date/Time: May 30, 2025 02:45 PM Reporting Lab: [facility] [id number] Performing Lab: [facility] [address] HPV 16NEGATIVEHPV 18NEGATIVEOTHER HIGH RISK HPVNEGATIVEHPV INTERPRETATIONHR-HPV is undetectable or below preset threshold. Social History: Smoking Status (Most current) and [...] Date/Time Current Smoking Status Comment Latasha pitts Jun 08, 2025 02:21 PM PREVIOUS SMOKER [facility] Tobacco Use History This section includes a history of the smoking, or tobacco-related health factors, that were collected on or before the date of the Encounter. The data comes from the [place] facility where the Encounter took place. Date/Time Smoking Status/Tobacco Use Comment F acility Jan 05, 2024 12:00 PM [facility] PM[facility]-TOBACCO QUIT 5 TO < 15 YRS [facility] [...] the Encounter. The data comes from all [place] treatment facilities. Date/Time Radiology Report Provider Source Jun 08, 2025 07:44 AM US PELVIC (FEMALE) (P): LUCASBISCARLET [id number] -1980 F Exm Date: JUN 08, 2025@07:44 Req Phys: NILA GRACIA Pat Loc: [facility] PACT DIAMONDS WH (Req'g Lo Img Loc: Ultrasound Imaging Service: Unknown Screen: [place] [address] (Case [id number] COMPLETE) US PELVIC (US Detailed) CPT:83681 Proc Modifiers : [id number] Reason for Study: bleeding after intercourse (Case 1682 COMPLETE) US VISCERAL VASCULAR ABDOMEN LIMI(US Detailed) CPT:18195 (Case 1683 COMPLETE) US TRANSVAGINAL (US Detailed) CPT:10222 Clinical History: bleeding after intercourse My pager number on record is: [phone]. I confirm that the pager number/cell phone number above is correct for reporting critical results. Trainees only: Enter your staff provider's info here: LAST CREATININE 1.0 (08/18/24) Report Status: Verified Date Reported: JUN 08, 2025 Date Verified: JUN 08, 2025 Vineyardist E-Sig:/ES/DIPTI RANDHAWA MD Report: EXAMINATION: US PELVIC, [...] Primary Interpreting Staff: DIPTI RANDHAWA MD, RADIOLOGIST (Vineyardist) /DIPTI [facility] Pathology Reports: +/- 30 [...] the Encounter. The data comes from all [facility] facilities. Date/Time Pathology Report Provider Source Jun 08, 2025 11:11 AM LR CYTOPATHOLOGY R EPORT: LOCAL TITLE: LR CYTOPATHOLOGY REPORT STANDARD TITLE: PATHOLOGY REPORT DATE OF NOTE: JUN 08, 2025@11:11:10 ENTRY DATE: JUN 08, 2025@11:11:10 AUTHOR: LOYDA SEGAL COSIGNER: URGENCY: STATUS: COMPLETED $APHDR Reporting Lab: [facility] [CLIA# [id number]] [place] [address] - - - - - - - [...] - - - PATHOLOGY REPORT Accession No. [id number] - - - - - [...] was used to analyze the cytology specimen ([employer] Imaging System). The HPV results are available in CPRS /es/ TAMICA CUEVA(ASC) PEDIATRIC DERMATOLOGIST,PATHOLOGY AND LABORATORY [facility] Signed Jun 08, 2025@11:11 Performing Laboratory: Cytology Report Performed By: [facility] [CLIA# [id number]] [place] [address] $FTR - - - - - - - - - - - - - - - - - - - - - - - - - - - - - - - - - - - - - - - - (End of report) LOYDA MENDENHALL [facility] Date Jun 08, 2025 - - - - - - - - - - - - - - - - - - - - - - - - - - - - - - - - - - - - - - - - QUINTIN ZAVALA STANDARD FORM 515 ID:[id number] SEX:F :1980 AGE: 44 LOC:[id number] PCP: Nila Gracia /lilia/ LOYDA SEGAL, TAMICA([facility]) PEDIATRIC DERMATOLOGIST,PATHOLOGY AND LABORATORY [facility] Signed: 06/08/2025 11:LOYDA LOTT [facility] Encounter Notes: All associated encounter notes This section contains the clinical notes associated to the Encounter. Date/Time Encounter Note(s) Provider Source Jun 09, 2025 02:28 PM ADDENDUM: LOCAL TITLE: Addendum STANDARD TITLE: ADDENDUM DATE OF NOTE: JUN 09, 2025@14:28:53 ENTRY DATE: JUN 09, 2025@14:28:54 AUTHOR: JACLYN ASH EXP COSIGNER: URGENCY: STATUS: COMPLETED would need to start by attending a Start Smart class for MOVE!, and at that class can request to attend the Bariatric INformation class, then she will learn the process. Will place the RTC for Start Smart class. /lilia/ JACLYN ASH RN, BSN [facility] Signed: 06/09/2025 14:29 Receipt Acknowledged By: 06/10/2025 09:06 /sandra RODGERS --- Original Document --- 06/08/25 PATIENT CONTACT NOTE: Patient contact Name of Rogers: QUINTIN ZAVALA Name/Relationship of Contact if other than : Date & Time of Contact: May@09:17 Type of Contact: In person Reason for Contact: Patient requesting an endoscopic sleeve gastroplasty with the [place]. Please review and advise. Thank you! /sandra JORGE AMSA Signed: 06/08/2025 09:18 Receipt Acknowledged By: 06/09/2025 14:08 /lilia/ BAYRON PIZARRO MD CHIEF, GENERAL SURGERY 06/09/2025 ADDENDUM STATUS: COMPLETED Tagging our [facility] coordinator. I am certainly happy to evaluate the for an ESG here at [facility]. However, the should enter our regular pathway to optimize her chances for durable success. /lilia/ BAYRON PIZARRO MD CHIEF, GENERAL SURGERY Signed: 06/09/2025 14:09 Receipt Acknowledged By: 06/09/2025 14:27 /lilia/ JACLYN ASH RN, BSN [facility] [place] [facility] 2024 02:08 PMADDENDUM: LOCAL TITLE: Addendum STANDARD TITLE: ADDENDUM DATE OF NOTE: JUN 09, 2025@14:08:22 ENTRY DATE: JUN 09, 2025@14:08:23 AUTHOR: BAYRON PIZARRO COSIGNER: URGENCY: STATUS: COMPLETED Tagging our [facility] coordinator. I am certainly happy to evaluate the for an ESG here at [facility]. However, the should enter our regular pathway to optimize her chances for durable success. /lilia/ BAYRON PIZARRO MD CHIEF, GENERAL SURGERY Signed: 06/09/2025 14:09 Receipt Acknowledged By: 06/09/2025 14:27 /lilia/ JACLYN ASH RN, BSN [facility] --- Original Document --- 06/08/25 PATIENT CONTACT NOTE: Patient contact Name of : QUINTIN ZAVALA Name/Relationship of Contact if other than Rogers: Date & Time of Contact: May@09:17 Type of Contact: In person Reason for Contact: Patient requesting an endoscopic sleeve gastroplasty with the [place]. Please review and advise. Thank you! /lilia/ MAGDALENA RODGERS Signed: 06/08/2025 09:18 Receipt Acknowledged By: 06/09/2025 14:08 /lilia/ BAYRON PIZARRO MD CHIEF, [facility]AL [facility]GERY[facility]ITAL[facility] TAPIA [facility] 2024 09:17 AM REPORT OF CONTACT: LOCAL TITLE: PATIENT CONTACT NOTE STANDARD TITLE: REPORT OF CONTACT DATE OF NOTE: JUN 08, 2025@09:17 ENTRY DATE: JUN 08, 2025@09:17:08 AUTHOR: MAGDALENA JORGE EXP COSIGNER: URGENCY: STATUS: COMPLETED PATIENT CONTACT NOTE Has ADDENDA Patient contact Name of : QUINTIN ZAVALA Name/Relationship of Contact if other than : Date & Time of Contact: May@09:17 Type of Contact: In person Reason for Contact: Patient requesting an endoscopic sleeve gastroplasty with the [place]. Please review and advise. Thank you! /lilia/ MAGDALENA JORGE AMSA Signed: 06/08/2025 09:18 Receipt Acknowledged By: 06/09/2025 14:08 /lilia/ BAYRON PIZARRO MD CHIEF, GENERAL SURGERY 06/09/2025 ADDENDUM STATUS: COMPLETED Tagging our [employer] coordinator. I am certainly happy to evaluate the for an ESG here at [facility]. However, the should enter our regular pathway to optimize her chances for durable success. /lilia/ BAYRON PIZARRO MD CHIEF, GENERAL SURGERY Signed: 06/09/2025 14:09 Receipt Acknowledged By: 06/09/2025 14:27 /lilia/ JACLYN ASH RN, BSN [facility] 06/09/2025 ADDENDUM STATUS: COMPLETED Rogers would need to start by attending a Start Smart class for [employer]!, and at that class can request to attend the Bariatric INformation class, then she will learn the process. Will place the RTC for Start Smart class. /lilia/ JACLYN ASH RN, BSN [facility] Signed: 06/09/2025 14:29 Receipt Acknowledged By: * AWAITING SIGNATURE * MAGDALENA JORGE [facility]
--- OUTSIDE RECORDS SUMMARY | 2025-06-08 05:11 | XMS_ITS | Encounter Summary ---
Author Name [facility] [place] Organization [place] Address [address] [place] [address] Care Team Providers Care Home Health Registered Nurse Name Role Phone NILA GRACIA Primary Care Provider Unavailabl e Selected Encounter This section includes the information on record at [place] for the Encounter. Date/Time Encounter Type Encounter Description Reason Pro vider Source Jun 08, 2025 11:11 AM Outpatient Encounter EVENT (HISTORICAL) LOYDA SEGAL Encounter Template Text not used by [place] [...] 27, 2025 11:00 AM AMBULATORY - PSYCHIATRY [facility] Active, [...] Consult Order COLONOSCOP Y DIAGNOSTIC OUTPT Cons Salesperson Handbags's Choice DEEPIKA NOEL Lab Results: +/- 30 [...] May 04, 2025 02:22 PM Reporting Lab: [facility] [id number] Performing Lab: [facility] [address] C.TRACHOMATIS DNANOT DETECTEDN.GONORRHEA DNANOT DETECTEDCT/NG INTERPRETATION Infectious agent DNA is not detected by this assayMay 30, 2025 02:43 [place] CBOCHUMAN PAPILLOMA VIRUS,DNA HIGH RISKCERVICAL VAGINAL CYTOLOGIC MATERIAL Specimen Type: CERVICAL VAGINAL CYTOLOGIC MATERIAL No comment entered. Ordering Provider: NILA GRACIA Report Released Date/Time: May 30, 2025 02:45 PM Reporting Lab: [facility] [address] Performing Lab: [facility] [address] HPV 16NEGATIVEHPV 18NEGATIVEOTHER HIGH RISK HPVNEGATIVEHPV INTERPRETATIONHR-HPV [...] Date/Time Current Smoking Status Comment Facil ity Jun 08, 2025 02:21 PM PREVIOUS SMOKER [facility] Tobacco [...] [facility] 12:[facility] PMVA-TOBACCO QUIT 5 TO < 15 YRS [facility] [...] 05, 2024 ADVANCE DIRECTIVE DISCUSSION SHAHID HURTADO [facility] Radiology Reports: +/- 30 days of [...] AM US PELVIC (FEMALE) (P): BILLIE ZAVALA [id number] -1980 F Exm Date: JUN 08, 2025@07:44 Req Phys: NILA GRACIA Pat Loc: [facility] PACT DIAMONDS (Req'g Lo Img Loc: Ultrasound Imaging Service: Unknown Screen: [place] [address] (Case 1680 COMPLETE) US PELVIC (US Detailed) CPT:87520 Proc Modifiers : [id number] Reason for Study: bleeding after intercourse (Case 1682 COMPLETE) US VISCERAL VASCULAR ABDOMEN LIMI(US Detailed) CPT:56155 (Case 1683 COMPLETE) US TRANSVAGINAL (US Detailed) CPT:03839 Clinical History: bleeding after intercourse My pager number on record is: [phone]. I confirm that the pager number/cell phone number above is correct for reporting critical results. Trainees only: Enter your staff provider's info here: LAST CREATININE 1.0 (08/18/24) Report Status: Verified Date Reported: JUN 08, 2025 Date Verified: JUN 08, 2025 Ice Cream Chef E-Sig:/ES/DIPTI RANDHAWA MD Report: EXAMINATION: US PELVIC, [...] Primary Interpreting Staff: DIPTI RANDHAWA MD, RADIOLOGIST (Ice Cream Chef) /DIPTI BARRON [facility] Pathology Reports: +/- 30 days of the [...] comes from all [place] treatment facilities. Date/Time Pathology Report Provider Source Jun 08, 2025 11:11 AM LR CYTOPATHOLOGY R EPORT: LOCAL TITLE: LR CYTOPATHOLOGY REPORT STANDARD TITLE: PATHOLOGY REPORT DATE OF NOTE: JUN 08, 2025@11:11:10 ENTRY DATE: JUN 08, 2025@11:11:10 AUTHOR: LOYDA SEGAL COSIGNER: URGENCY: STATUS: COMPLETED $APHDR Reporting Lab: [facility] [CLIA# [id number]] [place] [address] - - - - - - - [...] - - - PATHOLOGY REPORT Accession No. [id number] - - - - - [...] was used to analyze the cytology specimen ([employer] System). The HPV results are available in CPRS /es/ TAMICA CUEVA(ASCP) COLLEGE BASKETBALL COACH,PATHOLOGY AND LABORATORY [facility] Signed Jun 08, 2025@11:11 Performing Laboratory: Cytology Report Performed By: [facility] [CLIA# [id number]] [place] [address] $FTR - - - - - - - - - - - - - - - - - - - - - - - - - - - - - - - - - - - - - - - - (End of report) LOYDA MENDENHALL [facility] Date Jun 08, 2025 - - - - - - - - - - - - - - - - - - - - - - - - - - - - - - - - - - - - - - - - ALLYSSAQUINTIN DANIELS STANDARD FORM 515 ID:[id number] SEX:F :1980 AGE: 44 LOC:[id number] PCP: Nila Gracia /lilia/ TAMICA CUEVA([facility]) COLLEGE BASKETBALL COACH,PATHOLOGY AND LABORATORY [facility] Signed: 06/08/2025 11:11LOYDA SEGALCOUNT INCLUDES THE [facility] Encounter Notes: All associated encounter notes This section contains the clinical notes associated to the Encounter. Date/Time Encounter Note(s) Provider Source Jun 08, 2025 11:11 AM PATHOLOGY REPORT: LOCAL TITLE: LR CYTOPATHOLOGY REPORT STANDARD TITLE: PATHOLOGY REPORT DATE OF NOTE: JUN 08, 2025@11:11:10 ENTRY DATE: JUN 08, 2025@11:11:10 AUTHOR: LOYDA SEGAL COSIGNER: URGENCY: STATUS: COMPLETED $APHDR Reporting Lab: [facility] [CLIA# [id number]] [place] [address] - - - - - - - [...] or other cancers. Microscopic: Microscopic examination performed. [facility] Diagnosis: Specimen adequacy: SATISFACTORY FOR EVALUATION. ENDOCERVICAL/TRANSFORMATION ZONE COMPONENT NOT IDENTIFIED. Interpretation: NEGATIVE FOR INTRAEPITHELIAL LESION OR MALIGNANCY. A computer-aided imaging and review system was used to analyze the cytology specimen ([employer] Imaging System). The HPV results are available in CPRS /es/ LOYDA SEGAL, CT([facility]) COLLEGE BASKETBALL COACH,PATHOLOGY AND LABORATORY MED [facility] Signed Jun 08, 2025@11:11 Performing Laboratory: Cytology Report Performed By: [facility] [CLIA# [id number]] [place] [address] $FTR - - - - - - - - - - - - - - - - - - - - - - - - - - - - - - - - - - - - - - - - (End of report) LOYDA SEGAL [facility] Date Jun 08, 2025 - - - - - - - - - - - - - - - - - - - - - - - - - - - - - - - - - - - - - - - - QUINTIN ZAVALA STANDARD FORM 515 ID:[id number] SEX:F :1980 AGE: 44 LOC:71074 PCP: Nila Gracia /lilia/ LOYDA SEGAL, CT([facility]) COLLEGE BASKETBALL COACH,PATHOLOGY AND LABORATORY MED [facility] Signed: 06/08/2025 11:11LOYDA SEGAL [facility]
--- OUTSIDE RECORDS SUMMARY | 2025-06-08 08:21 | XMS_ITS | Encounter Summary ---
Author Name [facility] [place] Organization [place] Address [address] [place] [address] Care Team Providers Care Clinical Education Specialist Name Role Phone NILA GRACIA Primary Care Provider Unavailabl e Selected Encounter This section includes the information on record at [place] for the Encounter. Date/Time Encounter Type Encounter Description Reason Pro vider Source Jun 08, 2025 02:21 PM Outpatient Encounter TELEP NARESH/ANCILLARY JACLYN DONALDSON Encounter Template Text not used by [place] [...] Consult Order COLONOSCOP Y DIAGNOSTIC OUTPT Cons Jet Dyeing Machine Tender's Choice DEEPIKA NOEL Lab Results: +/- 30 [...] May 04, 2025 02:22 PM Reporting Lab: [facility] [id number] Performing Lab: [facility] [address] C.TRACHOMATIS DNANOT DETECTEDN.GONORRHEA DNANOT DETECTEDCT/NG INTERPRETATION Infectious agent DNA is not detected by this assayMay 30, 2025 02:43 [place] CBOCHUMAN PAPILLOMA VIRUS,DNA HIGH RISKCERVICAL VAGINAL CYTOLOGIC MATERIAL Specimen Type: CERVICAL VAGINAL CYTOLOGIC MATERIAL No comment entered. Ordering Provider: NILA GRACIA Report Released Date/Time: May 30, 2025 02:45 PM Reporting Lab: [facility] [address] Performing Lab: [facility] [address] HPV 16NEGATIVEHPV 18NEGATIVEOTHER HIGH RISK HPVNEGATIVEHPV INTERPRETATIONHR-HPV [...] place. Date/Time Current Smoking Status Comment Latasha Bee 19, 2025 02:21 PM PREVIOUS SMOKER [facility] Tobacco Use History This section includes a history of the smoking, or tobacco-related health factors, that were collected on or before the date of the Encounter. The data comes from the [place] facility where the Encounter took place. Date/Time Smoking Status/Tobacco Use Comment F acility Jan 05, 2024 12:00 PM [facility] PMVA-TOBACCO QUIT 5 TO < 15 YRS [facility] [...] The data comes from all [facility]. Date Advance Directives Provider Source [...] AM US PELVIC (FEMALE) (P): BILLIE ZAVALA [id number] -1980 F Exm Date: JUN 08, 2025@07:44 Req Phys: NILA GRACIA Pat Loc: K PACT DIAMONDS (Req'g Lo Img Loc: Ultrasound Imaging Service: Unknown Screen: [place] [address] (Case [id number] COMPLETE) US PELVIC (US Detailed) CPT:37146 Proc Modifiers : [id number] Reason for Study: bleeding after intercourse (Case 1682 COMPLETE) US VISCERAL VASCULAR ABDOMEN LIMI(US Detailed) CPT:44461 (Case 1683 COMPLETE) US TRANSVAGINAL (US Detailed) CPT:15940 Clinical History: bleeding after intercourse My pager number on record is: [phone]. I confirm that the pager number/cell phone number above is correct for reporting critical results. Trainees only: Enter your staff provider's info here: LAST CREATININE 1.0 (08/18/24) Report Status: Verified Date Reported: JUN 08, 2025 Date Verified: JUN 08, 2025 Customer Support Representative E-Sig:/ES/DIPTI RANDHAWA MD Report: EXAMINATION: US PELVIC, [...] Primary Interpreting Staff: DIPTI RANDHAWA MD, RADIOLOGIST (Customer Support Representative) /DIPTI BARRON [facility] Pathology Reports: +/- 30 days of the [...] comes from all [place] treatment facilities. Date/Time Pathology Report Provider Source Jun 08, 2025 11:11 AM LR CYTOPATHOLOGY R EPORT: LOCAL TITLE: LR CYTOPATHOLOGY REPORT STANDARD TITLE: PATHOLOGY REPORT DATE OF NOTE: JUN 08, 2025@11:11:10 ENTRY DATE: JUN 08, 2025@11:11:10 AUTHOR: LOYDA SEGAL COSIGNER: URGENCY: STATUS: COMPLETED $APHDR Reporting Lab: [facility] [CLIA# [id number]] [place] [address] - - - - - - - [...] was used to analyze the cytology specimen (TareasPlus Imaging System). The HPV results are available in CPRS /es/ TAMICA CUEVA(ASCP) SCRAP HANDLER,PATHOLOGY AND LABORATORY MED [facility] Signed Jun 08, 2025@11:11 Performing Laboratory: Cytology Report Performed By: [facility] [CLIA# [id number]] [place] [address] $FTR - - - - - - - - - - - - - - - - - - - - - - - - - - - - - - - - - - - - - - - - (End of report) LOYDA MENDENHALL [facility] Date Jun 08, 2025 - - - - - - - - - - - - - - - - - - - - - - - - - - - - - - - - - - - - - - - - QUINTIN ZAVALA STANDARD FORM 515 ID:[id number] SEX:F :1980 AGE: 44 LOC:02864 PCP: Nila Gracia /lilia/ LOYDA SEGAL CT(ASCP) SCRAP HANDLER,PATHOLOGY AND LABORATORY MED [facility] Signed: 06/08/2025 11:LOYDA LOTT [facility] Encounter Notes: All associated encounter notes This section contains the clinical notes associated to the Encounter. Date/Time Encounter Note(s) Provider Source Jun 08, 2025 02:25 PM LETTERS: LOCAL TITLE: FOLLOW UP RESULTS LETTER STANDARD TITLE: LETTERS DATE OF NOTE: JUN 08, 2025@14:25 ENTRY DATE: JUN 08, 2025@14:25:51 AUTHOR: JACLYN DONALDSONIGNER: URGENCY: STATUS: COMPLETED [facility] [place] [address] [place] [address] May QUINTIN ZAVALA [address] [facility] [facility] [address] Dear [place]: I am writing to inform you of the results of the Pap test that you had done recently. YOUR RESULTS: Your Pap test was normal. Your HPV test was negative (normal). YOUR NEXT STEPS (recommended follow-up): We recommend your next Pap and/or HPV screening test be done in 5 years. MORE INFORMATION: HPV testing is a routine part of cervical cancer screening and looks for HPV (human papillomavirus, a cervical virus). Your HPV test was negative which lowers your overall risk for developing cervical cancer. If you have any further questions about cervical cancer screening or your test results, please contact our Pap Hub staff at the following number: [phone]. Sincerely, JACLYN DONALDSON RN PAP HUB NURSE COORDINATOR JACLYN DONALDSON [facility] 08, 2025 02:[facility]: LOCAL TITLE: CERVICAL CANCER SCREENING HISTORY STANDARD TITLE: [facility] NOTE DATE OF NOTE: JUN 08, 2025@14:21 ENTRY DATE: JUN 08, 2025@14:21:06 AUTHOR: ANIKA,JACLYN EXP COSIGNER: URGENCY: STATUS: COMPLETED Cervical Cancer Screening History History obtained via: spoke with patient Patient eligible for cervical cancer screening Yes List in chronological order from most recent results: 05/2025 PAP NILM/HPV Neg 05/2020 PAP NILM/HPV Neg (result copied in 03/13/23 cprs) 02/2017 PAP NILM (per 06/09 pap report) Pt denies h/o abnormal paps, w/ prior paps were at [facility]. Immunosuppression: No Present smoker: No: Former HPV Vaccinations: 0 Prior Cervical Intraepithelial Neoplasia (JENNIFER) 2-3 treated No Diethylstilbestrol syndrome (JF) exposure No Recommended follow up: Next Pap test is due in 5 years /lilia/ JACLYN DONALDSON RN PAP HUB NURSE COORDINATOR Signed: 06/08/2025 14:25 Receipt Acknowledged By: 06/09/2025 02:12 /lilia/ NILA GRACIA DNP,LEADERSHIP INTERN,JACLYN BECKMAN [facility]
--- OUTSIDE RECORDS SUMMARY | 2025-06-10 01:51 | XMS_ITS | Encounter Summary ---
Author Name [facility] [place] Organization [place] Address [address] [place] [address] Care Team Providers Care Ultrasonic Tester Name Role Phone BASIL NILA Primary Care Provider Unavailabl e Selected Encounter This section includes the information on record at [place] for the Encounter. Date/Time Encounter Type Encounter Description Reason Pro vider Source Jun 10, 2025 07:51 AM Outpatient Encounter GASTROENTEROLOGY ICD-10-CM Z12.11 Encounter for screening for malignant neoplasm of colon MARGARET ADAMS RA Lorie Encounter Template Text not used by [place] Assessments - Encounter Diagnoses This section includes the primary and secondary diagnoses documented for the Encounter. Date/Time Primary/Secondary Diagnosis Diagnosis Name Provider Source Jun 10, 2025 07:55 AM PRIMARY Encounter for screening for malignant neoplasm of colon SADIE ADAMS [facility] Plan of Treatment: Future Appointments (+ [...] 2025 11:00 AM AMBULATORY - PSYCHIATRY [facility] Active, Pending, and Scheduled Orders This [...] Consult Order COLONOSCOP Y DIAGNOSTIC OUTPT Cons Crew Boss's Choice DEEPIKA NOEL Lab Results: +/- 30 [...] Comment May 30, 2025 03:17 PM DEEPIKA [facility] C.TRACHOMATIS/N.GONORRHEA DNA VAGINA Specimen Type: VAGINA No comment entered. Ordering Provider: NILA GRACIA Report Released Date/Time: May 04, 2025 02:22 PM Reporting Lab: [facility] [address] Performing Lab: [facility] [address] C.TRACHOMATIS DNANOT DETECTEDN.GONORRHEA DNANOT DETECTEDCT/NG INTERPRETATION Infectious agent DNA is not detected by this assayMay 30, 2025 02:43 [place] CBOCHUMAN PAPILLOMA VIRUS,DNA HIGH RISKCERVICAL VAGINAL CYTOLOGIC MATERIAL Specimen Type: CERVICAL VAGINAL CYTOLOGIC MATERIAL No comment entered. Ordering Provider: NILA GRACIA Report Released Date/Time: May 30, 2025 02:45 PM Reporting Lab: [facility] [address] Performing Lab: [facility] [address] HPV 16NEGATIVEHPV 18NEGATIVEOTHER HIGH RISK HPVNEGATIVEHPV INTERPRETATIONHR-HPV [...] Jun 08, 2025 02:21 PM PREVIOUS SMOKER [facility] Tobacco Use History This section includes a history of the smoking, or tobacco-related health factors, that were collected on or before the date of the Encounter. The data comes from the [place] facility where the Encounter took place. Date/Time Smoking Status/Tobacco Use Comment F acility Jan 05, 2024 12:00 PM [facility] 20[facility] 12:00 PMVA-TOBACCO QUIT 5 TO < 15 YRS [facility] Advance Directives: All historical and current [...] from all [facility]. Date Advance Directives Provider Source Jan 05, 2024 ADVANCE DIRECTIVE DISCUSSION SHAHID HURTADO [facility] Radiology Reports: +/- 30 days of [...] the Encounter. The data comes from all [place] treatment facilities. Date/Time Radiology Report Provider Source Jun 08, 2025 07:44 AM US PELVIC (FEMALE) (P): BILLIE ZAVALA [id number] -1980 F Exm Date: JUN 08, 2025@07:44 Req Phys: NILA GRACIA Pat Loc: SHK PACT DIAMONDS WH (Req'g Lo Img Loc: Ultrasound Imaging Service: Unknown Screen: [place] [address] (Case 1680 COMPLETE) US PELVIC (US Detailed) CPT:89639 Proc Modifiers : [id number] Reason for Study: bleeding after intercourse (Case 1682 COMPLETE) US VISCERAL VASCULAR ABDOMEN LIMI(US Detailed) CPT:24445 (Case 1683 COMPLETE) US TRANSVAGINAL (US Detailed) CPT:59084 Clinical History: bleeding after intercourse My pager number on record is: [phone]. I confirm that the pager number/cell phone number above is correct for reporting critical results. Trainees only: Enter your staff provider's info here: LAST CREATININE 1.0 (08/18/24) Report Status: Verified Date Reported: JUN 08, 2025 Date Verified: JUN 08, 2025 [employer] E-Sig:/ES/DIPTI RANDHAWA MD Report: EXAMINATION: US PELVIC, [...] Primary Interpreting Staff: DIPTI RANDHAWA MD, RADIOLOGIST (Multicultural Services Librarian) /DIPTI BARRON [facility] Pathology Reports: +/- 30 days of [...] the Encounter. The data comes from all [place] treatment facilities. Date/Time Pathology Report Provider Source Jun 08, 2025 11:11 AM LR CYTOPATHOLOGY R EPORT: LOCAL TITLE: LR CYTOPATHOLOGY REPORT STANDARD TITLE: PATHOLOGY REPORT DATE OF NOTE: JUN 08, 2025@11:11:10 ENTRY DATE: JUN 08, 2025@11:11:10 AUTHOR: LOYDA SEGAL COSIGNER: URGENCY: STATUS: COMPLETED $APHDR Reporting Lab: [facility] [CLIA# [id number]] [place] [address] - - - - - - - [...] or other cancers. Microscopic: Microscopic examination performed. COUNTS INCLUDE 234 BEDS AT THE [facility] Diagnosis: Specimen adequacy: SATISFACTORY FOR EVALUATION. ENDOCERVICAL/TRANSFORMATION ZONE COMPONENT NOT IDENTIFIED. Interpretation: NEGATIVE FOR INTRAEPITHELIAL LESION OR MALIGNANCY. A computer-aided imaging and review system was used to analyze the cytology specimen (Mastodon C System). The HPV results are available in CPRS /es/ TAMICA CUEVA(ASC) CHIEF OF SAFETY AND PROTECTION,PATHOLOGY AND LABORATORY MED [facility] Signed Jun 08, 2025@11:11 Performing Laboratory: Cytology Report Performed By: [facility] [CLIA# [id number]] [place] [address] $FTR - - - - - - - - - - - - - - - - - - - - - - - - - - - - - - - - - - - - - - - - (End of report) LOYDA SEGAL [facility] Date Jun 08, 2025 - - - - - - - - - - - - - - - - - - - - - - - - - - - - - - - - - - - - - - - - LUCASQUINTIN MAJOR STANDARD FORM 515 ID:[id number] SEX:F :1980 AGE: 44 LOC:13773 PCP: Nila Gracia /lilia/ LOYDA SEGAL, CT(ASC) CHIEF OF SAFETY AND PROTECTION,PATHOLOGY AND LABORATORY MED [facility] Signed: 06/08/2025 11:11LOYDA SEGALATRI[facility] Encounter Notes: All associated encounter notes This section contains the clinical notes associated to the Encounter. Date/Time Encounter Note(s) Provider Source Jun 10, 2025 07:51 AM GASTROENTEROLOGY A TTENDING NOTE: LOCAL TITLE: GI CLINIC NOTE STANDARD TITLE: GASTROENTEROLOGY ATTENDING NOTE DATE OF NOTE: JUN 10, 2025@07:51 ENTRY DATE: JUN 10, 2025@07:51:53 AUTHOR: ALISIA ADAMS EXP COSIGNER: URGENCY: STATUS: COMPLETED GI CLINIC NOTE Has ADDENDA Consult received on 44 year old female with +FIT. Colonoscopy ordered for further evaluation, noted that the patient has a PEG allergy. Colonoscopy is now scheduled 06/28. I asked the patient via secure messaging to provide more details about the allergy. 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 I will have anaphylaxis if it is injected or I ingest or inhale it. If applied topically, I will quickly get hives anywhere it touches. Collaborated with Dr. Alonzo and pharmacists Kimberlee Rivero and Nolvia Hathaway. The following regimen has been recommended: For patients with polyethylene glycol allergy, a split-dose lactulose-based regimen consisting of 133.4 g lactulose in 200 mL, combined with 800 mL carbohydrate-containing clear liquid, 2 L additional water, and 5 g simethicone has demonstrated non-inferior efficacy and safety compared to standard PEG-ELS for colonoscopy bowel preparation. This regimen is administered in a split-dose format, similar to standard bowel prep protocols. Lactulose acts as an osmotic laxative and is FDA-approved for constipation, but its use for colonoscopy preparation is off-label in the [place]. Common side effects include bloating and abdominal discomfort, which may limit tolerability in some patients. Current [place] guidelines from the [place] Gastro[employer] Association and the [place] Society for Gastrointestinal Endoscopy do not list lactulose-based regimens among standard or FDA-approved colonoscopy preparations. However, lactulose may be considered in PEG-allergic patients when other options are contraindicated or unavailable. Greater than 30 minutes has been spent on this encounter. /lilia/ ALISIA ADAMS APRN, NAUTICAL INSTRUMENT MECHANIC CERTIFIED NURSE PRACTITIONER Signed: 06/10/2025 07:58 Receipt Acknowledged By: 06/10/2025 16:03 /lilia/ NOLVIA HATHAWAY PHARMD, [facility] Gastroenterology/ID/Rheumatology Pharmacist 06/17/2025 13:16 /sandra DELVALLE, RN REGISTERED NURSE 06/11/2025 05:19 /lilia/ Facundo Alonzo MD Gastroenterology [employer] 06/17/2025 13:20 /sandra DELVALLE, RN REGISTERED NURSE for LEVI JOHNSON 06/12/2025 22:17 /lilia/ GAVIN VILLEDAD, [facility] Gastroenterology/ID/Rheumatology Pharmacist for KIMBERLEE Melo MELANIE 06/17/2025 ADDENDUM STATUS: COMPLETED In discussion with Dr. Packer and Dr. Alonzo, an order will be placed for Sutab prep. Asset Specialist called and discussed this and she is agreeable to proceed with Sutab vs Lactulose. Dr. Alonzo will place orders. Asset Specialist will contact to reschedule procedure with anesthesia once more dates are available. /sandra DELVALLE, RN REGISTERED NURSE Signed: 06/17/2025 09:37ALISIA ADAMS [facility]
--- OUTSIDE RECORDS SUMMARY | 2025-06-17 08:19 | XMS_ITS | Encounter Summary ---
Author Name [facility] [place] Organization [place] Address [address] [place] [address] Care Team Providers Care Project Management Engineer Name Role Phone NILA GRACIA Primary Care Provider Unavailabl e Selected Encounter This section includes the information on record at [place] for the Encounter. Date/Time Encounter Type Encounter Description Reason Pro vider Source Jun 17, 2025 02:19 PM Outpatient Encounter GI EN DOSCOPCHRISTINE GALEANA Encounter Template Text not used by [place] [...] 11:00 AM AMBULATORY - REHAB MEDICIN E [facility] Jul 27, 2025 11:00 AM AMBULATORY [...] Consult Order COLONOSCOP Y DIAGNOSTIC OUTPT Cons Manager Pipeline's Choice DEEPIKA NOEL Lab Results: +/- 30 [...] May 04, 2025 02:22 PM Reporting Lab: [facility] [address] Performing Lab: [facility] [address] C.TRACHOMATIS DNANOT DETECTEDN.GONORRHEA DNANOT DETECTEDCT/NG INTERPRETATION Infectious agent DNA is not detected by this assayMay 30, 2025 02:43 [place] CBOCHUMAN PAPILLOMA VIRUS,DNA HIGH RISKCERVICAL VAGINAL CYTOLOGIC MATERIAL Specimen Type: CERVICAL VAGINAL CYTOLOGIC MATERIAL No comment entered. Ordering Provider: NILA GRACIA Report Released Date/Time: May 30, 2025 02:45 PM Reporting Lab: [facility] [address] Performing Lab: [facility] [address] HPV 16NEGATIVEHPV 18NEGATIVEOTHER HIGH RISK HPVNEGATIVEHPV INTERPRETATIONHR-HPV [...] Jun 08, 2025 02:21 PM PREVIOUS SMOKER [facility] Tobacco Use History This section includes a history of the smoking, or tobacco-related health factors, that were collected on or before the date of the Encounter. The data comes from the [place] facility where the Encounter took place. Date/Time Smoking Status/Tobacco Use Comment F acility Jan 05, 2024 12:00 PM [facility] PMVA-TOBACCO QUIT 5 TO < 15 YRS [facility] [...] this document. The data comes from all [facility]. Date Advance Directives Provider Source Jan 05, 2024 ADVANCE DIRECTIVE DISCUSSION SHAHID HURTADO [facility] Radiology Reports: +/- 30 days of [...] AM US PELVIC (FEMALE) (P): BILLIE ZAVALA [id number] -1980 F Exm Date: JUN 08, 2025@07:44 Req Phys: NILA GRACIA Pat Loc: SHK PACT DIAMONDS (Req'g Lo Img Loc: Ultrasound Imaging Service: Unknown Screen: [place] [address] (Case 1680 COMPLETE) US PELVIC (US Detailed) CPT:08951 Proc Modifiers : [id number] Reason for Study: bleeding after intercourse (Case 1682 COMPLETE) US VISCERAL VASCULAR ABDOMEN LIMI(US Detailed) CPT:90414 (Case 1683 COMPLETE) US TRANSVAGINAL (US Detailed) CPT:35670 Clinical History: bleeding after intercourse My pager number on record is: [phone]. I confirm that the pager number/cell phone number above is correct for reporting critical results. Trainees only: Enter your staff provider's info here: LAST CREATININE 1.0 (08/18/24) Report Status: Verified Date Reported: JUN 08, 2025 Date Verified: JUN 08, 2025 Baler Operator E-Sig:/ES/DIPTI RANDHAWA MD Report: EXAMINATION: US PELVIC, [...] Primary Interpreting Staff: DIPTI RANDHAWA MD, RADIOLOGIST (Baler Operator) /DIPTI BARRON [facility] Pathology Reports: +/- 30 days [...] comes from all [place] treatment facilities. Date/Time Pathology Report Provider Source Jun 08, 2025 11:11 AM LR CYTOPATHOLOGY R EPORT: LOCAL TITLE: LR CYTOPATHOLOGY REPORT STANDARD TITLE: PATHOLOGY REPORT DATE OF NOTE: JUN 08, 2025@11:11:10 ENTRY DATE: JUN 08, 2025@11:11:10 AUTHOR: LOYDA SEGAL COSIGNER: URGENCY: STATUS: COMPLETED $APHDR Reporting Lab: [facility] [CLIA# [id number]] [place] [address] - - - - - - - [...] - - - PATHOLOGY REPORT Accession No. -ID [id number] - - - - - [...] was used to analyze the cytology specimen (Touchmedia Imaging System). The HPV results are available in CPRS /es/ TAMICA CUEVA(ASCP) REPAIR SPECIALIST,PATHOLOGY AND LABORATORY MED [facility] Signed Jun 08, 2025@11:11 Performing Laboratory: Cytology Report Performed By: [facility] [CLIA# [id number]] [place] [address] $FTR - - - - - - - - - - - - - - - - - - - - - - - - - - - - - - - - - - - - - - - - (End of report) LOYDA MENDENHALL [facility] Date Jun 08, 2025 - - - - - - - - - - - - - - - - - - - - - - - - - - - - - - - - - - - - - - - - QUINTIN ZAVALA STANDARD FORM 515 ID:[id number] SEX:F :1980 AGE: 44 LOC:94835 PCP: Nila Gracia /lilia/ LOYDA YAÑEZ, CT([facility]) REPAIR SPECIALIST,PATHOLOGY AND LABORATORY MED [facility] Signed: 06/08/2025 11:11LOYDA SEGAL [facility] Encounter Notes: All associated encounter notes This section contains the clinical notes associated to the Encounter. Date/Time Encounter Note(s) Provider Source Jun 17, 2025 02:19 PM GASTROENTEROLOGY P ROCEDURE SECURE MESSAGING: LOCAL TITLE: GASTROENTEROLOGY PROCEDURE SECURE MESSAGING STANDARD TITLE: GASTROENTEROLOGY PROCEDURE SECURE MESSAGING DATE OF NOTE: JUN 17, 2025@14:19 ENTRY DATE: JUN 17, 2025@13:19:33 AUTHOR: CHRISTINE DELVALLE EXP COSIGNER: URGENCY: STATUS: COMPLETED ------Original Message Sent: 06/17/2025 02:19 PM ET From: CHRISTINE DELVALLE To: QUINTIN ZAVALA Subject: Medication:Colonoscopy prep Hi Quintin, My apologies ahead of time. I asked Dr. Alonzo to place the orders for that alternative prep, SuTab, and I misspoke, apparently it DOES contain polyethylene glycol as an inactive ingredient! So back to the Lactulose prep, it seems that is our only option available. I am sorry to get your hopes up for an alternate! Enjoy your weekend and we will be in touch soon to get you scheduled. YUMIKO Dacosta /lilia/ CHRISTINE DELVALLE, RN REGISTERED NURSE Signed: 06/17/2025 13:19CHRISTINE DELVALLE [facility]
--- OUTSIDE RECORDS SUMMARY | 2025-06-22 04:36 | XMS_ITS | Encounter Summary ---
Author Name [facility] [place] [facility] [place] Address [address] [place] [address] Care Team Providers Care Bumper Operator Name Role Phone BASIL NILA Primary Care Provider Unavailabl e Selected Encounter This section includes the information on record at [place] for the Encounter. Date/Time Encounter Type Encounter Description Reason Pro vider Source Jun 22, 2025 10:36 AM Outpatient Encounter WEIGH T MGMT & MOVE! PROG - GRP IHE Encounter Template Text not used by [place] [...] 11:00 AM AMBULATORY - REHAB MEDICIN E [facility] Jul 27, 2025 11:00 AM AMBULATORY [...] Consult Order COLONOSCOP Y DIAGNOSTIC OUTPT Cons Book Canvasser's Choice DEEPIKA NOEL Lab Results: +/- 30 [...] May 04, 2025 02:22 PM Reporting Lab: [facility] [id number] Performing Lab: [facility] [address] C.TRACHOMATIS DNANOT DETECTEDN.GONORRHEA DNANOT DETECTEDCT/NG INTERPRETATION Infectious agent DNA is not detected by this assayMay 30, 2025 02:43 [place] CBOCHUMAN PAPILLOMA VIRUS,DNA HIGH RISKCERVICAL VAGINAL CYTOLOGIC MATERIAL Specimen Type: CERVICAL VAGINAL CYTOLOGIC MATERIAL No comment entered. Ordering Provider: NILA GRACIA Report Released Date/Time: May 30, 2025 02:45 PM Reporting Lab: [facility] [id number] Performing Lab: [facility] [address] HPV 16NEGATIVEHPV 18NEGATIVEOTHER HIGH RISK HPVNEGATIVEHPV INTERPRETATIONHR-HPV [...] Jun 08, 2025 02:21 PM PREVIOUS SMOKER [facility] Tobacco Use History This section includes a history of the smoking, or tobacco-related health factors, that were collected on or before the date of the Encounter. The data comes from the [place] facility where the Encounter took place. Date/Time Smoking Status/Tobacco Use Comment F acility Jan 05, 2024 12:00 PM [facility] PM[facility]-TOBACCO QUIT 5 TO < 15 YRS [facility] [...] 05, 2024 ADVANCE DIRECTIVE DISCUSSION SHAHID HURTADO [facility] Radiology Reports: +/- 30 days of [...] AM US PELVIC (FEMALE) (P): BILLIE ZAVALA [id number] -1980 F Exm Date: JUN 08, 2025@07:44 Req Phys: NILA GRACIA Pat Loc: [facility] PACT DIAMONDS WH (Req'g Lo Img Loc: Ultrasound Imaging Service: Unknown Screen: [place] [address] (Case [id number] COMPLETE) US PELVIC (US Detailed) CPT:15716 Proc Modifiers : [id number] Reason for Study: bleeding after intercourse (Case 1682 COMPLETE) US VISCERAL VASCULAR ABDOMEN LIMI(US Detailed) CPT:04033 (Case 1683 COMPLETE) US TRANSVAGINAL (US Detailed) CPT:20211 Clinical History: bleeding after intercourse My pager number on record is: [phone]. I confirm that the pager number/cell phone number above is correct for reporting critical results. Trainees only: Enter your staff provider's info here: LAST CREATININE 1.0 (08/18/24) Report Status: Verified Date Reported: JUN 08, 2025 Date Verified: JUN 08, 2025 Revenue Accounting Manager E-Sig:/ES/DIPTI RANDHAWA MD Report: EXAMINATION: US PELVIC, [...] Primary Interpreting Staff: DIPTI RANDHAWA MD, RADIOLOGIST (Revenue Accounting Manager) /DIPTI [facility] Pathology Reports: +/- 30 days of the [...] comes from all [place] treatment facilities. Date/Time Pathology Report Provider Source Jun 08, 2025 11:11 AM LR CYTOPATHOLOGY R EPORT: LOCAL TITLE: LR CYTOPATHOLOGY REPORT STANDARD TITLE: PATHOLOGY REPORT DATE OF NOTE: JUN 08, 2025@11:11:10 ENTRY DATE: JUN 08, 2025@11:11:10 AUTHOR: LOYDA SEGAL COSIGNER: URGENCY: STATUS: COMPLETED $APHDR Reporting Lab: [facility] [CLIA# [id number]] [place] [address] - - - - - - - [...] - - - PATHOLOGY REPORT Accession No. [id number] - - - - - [...] was used to analyze the cytology specimen (F?rsat Bu F?rsat Imaging System). The HPV results are available in CPRS /es/ TAMICA CUEVA(ASCP) REGIONAL SAFETY MANAGER,PATHOLOGY AND LABORATORY MED [facility] Signed Jun 08, 2025@11:11 Performing Laboratory: Cytology Report Performed By: [facility] [CLIA# [id number]] [place] [address] $FTR - - - - - - - - - - - - - - - - - - - - - - - - - - - - - - - - - - - - - - - - (End of report) LOYDA MENDENHALL cm Date Jun 08, 2025 - - - - - - - - - - - - - - - - - - - - - - - - - - - - - - - - - - - - - - - - QUINTIN ZAVALA STANDARD FORM 515 ID:[id number] SEX:F :1980 AGE: 44 LOC:[id number] PCP: Nila Gracia /lilia/ LOYDA SEGAL, CT([facility]) REGIONAL SAFETY MANAGER,PATHOLOGY AND LABORATORY MED [facility] Signed: 06/08/2025 11:11LOYDA SEGAL [facility] Encounter Notes: All associated encounter notes This section contains the clinical notes associated to the Encounter. Date/Time Encounter Note(s) Provider Source Jun 22, 2025 10:36 AM REPORT OF CONTACT: LOCAL TITLE: APPOINTMENT SCHEDULING NOTE STANDARD TITLE: REPORT OF CONTACT DATE OF NOTE: JUN 22, 2025@10:36 ENTRY DATE: JUN 22, 2025@10:36:16 AUTHOR: MAIK BARAJAS EXP COSIGNER: URGENCY: STATUS: COMPLETED [id number] Contact Attempt: Telephone, Left voicemail [id number] Contact Attempt: Letter Additional Comments: Activity: 06/09/2025 14:30 New Order entered by JACLYN ASH (REGISTERED NURS) Order Text: Return to [facility] DIET START SMART GRP [id number] on or around ( Jun 20, 2025 ) for a total of 1 appointment(s) Nature of Order: POLICY /lilia/ MAIK BARAJAS, RN REGISTERED NURSE Signed: 06/22/2025 10:36MAIK BARAJAS [facility]
--- OUTSIDE RECORDS SUMMARY | 2025-06-27 07:12 | XMS_ITS | Encounter Summary ---
Author Name [facility] [place] Organization [facility] [place] [facility] [place] Address [address] [place] [address] Care Team Providers Care Ocular Care Technician Name Role Phone BASIL NILA Primary Care Provider Unavailabl e Selected Encounter This section includes the information on record at [place] for the Encounter. Date/Time Encounter Type Encounter Description Reason Pro vider Source Jun 27, 2025 01:12 PM Outpatient Encounter [facility] Encounter Template Text not used by [place] Plan of Treatment: Future Appointments (+ 6 [...] 11:00 AM AMBULATORY - REHAB MEDICIN E [facility] Jul 27, 2025 11:00 AM AMBULATORY [...] Consult Order COLONOSCOP Y DIAGNOSTIC OUTPT Cons Flight Communications Officer's Choice DEEPIKA NOEL Lab Results: +/- 30 days of the encounter This section includes the Chemistry and Hematology Lab Results on record with [place] for the patient. Radiology Reports and Pathology [...] May 04, 2025 02:22 PM Reporting Lab: [facility] [address] Performing Lab: [facility] [address] C.TRACHOMATIS DNANOT DETECTEDN.GONORRHEA DNANOT DETECTEDCT/NG INTERPRETATION Infectious agent DNA is not detected by this assayMay 30, 2025 02:43 [place] CBOCHUMAN PAPILLOMA VIRUS,DNA HIGH RISKCERVICAL VAGINAL CYTOLOGIC MATERIAL Specimen Type: CERVICAL VAGINAL CYTOLOGIC MATERIAL No comment entered. Ordering Provider: NILA GRACIA Report Released Date/Time: May 30, 2025 02:45 PM Reporting Lab: [facility] [address] Performing Lab: [facility] [address] HPV 16NEGATIVEHPV 18NEGATIVEOTHER HIGH RISK HPVNEGATIVEHPV INTERPRETATIONHR-HPV [...] Jun 08, 2025 02:21 PM PREVIOUS SMOKER [facility] Tobacco Use History This section includes a history of the smoking, or tobacco-related health factors, that were collected on or before the date of the Encounter. The data comes from the [place] facility where the Encounter took place. Date/Time Smoking Status/Tobacco Use Comment F acility Jan 05, 2024 12:00 PM [facility]00 PMVA-TOBACCO QUIT 5 TO < 15 YRS [facility] Advance Directives: All historical and current Section Date Range: From patient's date of to the date document was created. This section includes ALL of a patient's completed or amended [place] Advance and Rescinded Directives. The entries below indicate that a directive exists for the patient, but an actual copy is not included with this document. The data comes from all [facility]. Date Advance Directives Provider Source Jan 05, 2024 ADVANCE DIRECTIVE DISCUSSION SHAHID HURTADO [facility] Radiology Reports: +/- 30 days [...] the Encounter. The data comes from all [place] treatment facilities. Date/Time Radiology Report Provider Source Jun 08, 2025 07:44 AM US PELVIC (FEMALE) (P): BILLIE ZAVALA [id number] -1980 F Exm Date: JUN 08, 2025@07:44 Req Phys: NILA GRACIA Pat Loc: SHK PACT DIAMONDS (Req'g Lo Img Loc: Ultrasound Imaging Service: Unknown Screen: [place] [address] (Case 1680 COMPLETE) US PELVIC (US Detailed) CPT:32816 Proc Modifiers : [id number] Reason for Study: bleeding after intercourse (Case 1682 COMPLETE) US VISCERAL VASCULAR ABDOMEN LIMI(US Detailed) CPT:69749 (Case 1683 COMPLETE) US TRANSVAGINAL (US Detailed) CPT:54749 Clinical History: bleeding after intercourse My pager number on record is: [phone]. I confirm that the pager number/cell phone number above is correct for reporting critical results. Trainees only: Enter your staff provider's info here: LAST CREATININE 1.0 (08/18/24) Report Status: Verified Date Reported: JUN 08, 2025 Date Verified: JUN 08, 2025 Gsa Coordinator E-Sig:/ES/DIPTI RANDHAWA MD Report: EXAMINATION: US PELVIC, [...] Primary Interpreting Staff: DIPTI RANDHAWA MD, RADIOLOGIST (Gsa Coordinator) /DIPTI BARRON [facility] Pathology Reports: +/- 30 days of [...] the Encounter. The data comes from all [place] treatment facilities. Date/Time Pathology Report Provider Source Jun 08, 2025 11:11 AM LR CYTOPATHOLOGY R EPORT: LOCAL TITLE: LR CYTOPATHOLOGY REPORT STANDARD TITLE: PATHOLOGY REPORT DATE OF NOTE: JUN 08, 2025@11:11:10 ENTRY DATE: JUN 08, 2025@11:11:10 AUTHOR: LOYDA SEGAL COSIGNER: URGENCY: STATUS: COMPLETED $APHDR Reporting Lab: [facility] [CLIA# [id number]] [place] [address] - - - - - - - [...] - - - PATHOLOGY REPORT Accession No. [id number] - - - - - [...] was used to analyze the cytology specimen ([employer] Imaging System). The HPV results are available in CPRS /es/ TAMICA CUEVA(ASCP) COREMAKER HELPER,PATHOLOGY AND LABORATORY MED [facility] Signed Jun 08, 2025@11:11 Performing Laboratory: Cytology Report Performed By: [facility] [CLIA# [id number]] [place] [address] $FTR - - - - - - - - - - - - - - - - - - - - - - - - - - - - - - - - - - - - - - - - (End of report) LOYDA MENDENHALL [facility] Date Jun 08, 2025 - - - - - - - - - - - - - - - - - - - - - - - - - - - - - - - - - - - - - - - - LUCASQUINTIN MAJOR STANDARD FORM 515 ID:[id number] SEX:F :1980 AGE: 44 LOC:31438 PCP: Nila Gracia /lilia/ LOYDA SEGAL, CT([facility]) COREMAKER HELPER,PATHOLOGY AND LABORATORY MED [facility] Signed: 06/08/2025 11:11LOYDA SEGAL [facility] Encounter Notes: All associated encounter notes This section contains the clinical notes associated to the Encounter. Date/Time Encounter Note(s) Provider Source Jun 27, 2025 01:12 PM NO SHOW NOTE: LOCAL TITLE: NO SHOW/CANCELLATION CLINIC NOTE STANDARD TITLE: NO SHOW NOTE DATE OF NOTE: JUN 27, 2025@13:12 ENTRY DATE: JUN 27, 2025@13:12:45 AUTHOR: JASON LINARES COSIGNER: URGENCY: STATUS: COMPLETED [place] not seen for scheduled appointment due to: cancelled Appointment Rescheduled: Yes Patient cancelled her appt on 06/29 and rescheduled to next available 07/27 @ 1100. Please review patient chart and medications for renewal needs (if appropriate). /lilia/ JASON LINARES Advanced service assistant Signed: 06/27/2025 13:13 Receipt Acknowledged By: 06/28/2025 15:22 /lilia/ Frances Cruz, MERNA, CERTIFIED SCRUM MASTER Membership AssistantDeepika MURTAZA Mental HealthREUNION REHABILITATION HOSPITAL PHOENIXJASON MURTAZA
[2025-07-15] VITALS (7 sets, daily range): BP systolic 119–176; BP diastolic 71–109; PULSE 74–104; RESP 18; TEMP 36.3–36.8; O2SAT 95–97; BMI 34.1
--- OUTSIDE RECORDS SUMMARY | 2025-07-15 01:58 | XMS_ITS | Continuity of Care Document ---
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 It does not include entries that were removed or entered in error. Problem Status Onset Date Problem Type Date of Resolution Comments Source closed stress fracture of tibia Active Condition Stretches ordered and demonstrated. DoD ankle joint pain Inactive Condition Power Steps issued. [facility] visit for: issue repeat prescription Inactive Con dition DoDroutine examinationInactiveConditionDoDheadache syndromesActiveConditionDoD head injuryActiveConditionDoDankle sprainInactiveConditionDoDrefractive error - myopiaActiveCondition* maritime guard wear DoDvisit for: daycare examInactiveConditionDoDPatient Education - Injury PreventionInactiveConditionDoDassess patient condition work-related occupational diseaseInactiveConditionDoDvisit for: ears / hearing examActiveConditionDoD Cancer cervix screening statusActiveCondition* Jun 08, 2025 Entered By: JACLYN DONALDSON Comment: No hx JENNIFER 2-3 * Jun 08, 2025 Entered By: JACLYN DONALDSON Comment: 05/2025 NILM/HPV Neg. Next due in 5yrs. [facility] HCSChronic fatigue syndromeActiveConditionMINNEAENCOM[facility] Chronic idiopathic urticariaActiveCondition* Mar 27, 2023 Entered By: EMIR GRACIA Comment: with physical component , chronic illness- [facility] - dr. Belem POE CBOCDysfunction of sphincter of Oddi (SNOMED CT [id number])Active Condition* Mar 27, 2023 Entered By: EMIR GRACIA Comment: cholecystectomy and multiple ERCPs, [facility], dx- 2015 [place] [facility]OCFamily social historyActiveCondition* Mar 27, 2023 Entered By: EMIR GRACIA Comment: , going through divorce, * Mar 27, 2023 Entered By: EMIR GRACIA Comment: past surgical hx- Cholecystectomy,along with priordual sphincterotomies or sphincter motor dysfunction , ERCP with pancreatic manometry on 11/28/2015 * Mar 27, 2023 Entered By: EMIR GRACIA Comment: Former Smoker * Mar 27, 2023 Entered By: EMIR GRACIA Comment: 2 children, 2 step children, * Mar 27, 2023 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 * Mar 27, 2023 Entered By: EMIR GRACIA Comment: Grandmother- utrine cancer, mother and father- CAD, DM2 , siblings- strong autoimmune [place] CBOCGeneralized anxiety disorderActiveConditionSHAKOPEE CBOCHistory of appendectomyActiveCondition* Jul 20, 2024 Entered By: JO-ANN CHRISTENSEN Comment: Mar 2005, [facility] HCSHistory of cholecystectomyActiveCondition* Jul 20, 2024 Entered By: JO-ANN CHRISTENSEN Comment: Oct 2005, [facility] HCSHistory of post-traumatic stress disorderActiveCondition* Mar 27, 2023 Entered By: EMIR GRACIA Comment: MH team at [facility] CBOCHyperlipidemiaActiveCondition* Mar 27, 2023 Entered By: EMIR GRACIA Comment: On statin [place] [facility] [facility]OCMajor depressive disorderActiveConditionSHAKOPEE CBOCNo significant change since previous mammogramActiveCondition* Apr 02, 2023 Entered By: EMIR GRACIA Comment: recent mammo on 04/01/23-ACR BI-RADS Category 1 - Ne gative. [place] [facility] [facility]OCPosttraumatic stress disorderActiveConditionMINNEAPOL[facility] Diagnosis: ICD-10-CM Z12.11 Encounter for screening for malignant neoplasm of colonActiveDiagnosisMINNEAPOLIS VA HCSDiagnosis: ICD-10-CM K86.1 Other chronic pancreatitisActiveDiagnosisMINNEAPOLIS VA HCSDiagnosis: ICD-10-CM Z46.1 Encounter for fitting and adjustment of hearing aidActiveDiagnosisMINNEAPOLIS VA HCSDiagnosis: ICD-10-CM Z12.4 Encounter for screening for malignant neoplasm of cervixActiveDiagnosisSHAKOPEE CBOCDiagnosis: ICD-10-CM Z00.00 Encntr for general adult medical exam w/o abnormal findingsActiveDiagnosisSHAKOPEE CBOCDiagnosis: ICD-10-CM F43.12 Post-traumatic stress disorder, chronicActiveDiagnosisSHAKOPEE CBOCDiagnosis: ICD-10-CM A69.20 Lyme disease, unspecifiedActiveDiagnosisSHAKOPEE CBOCDiagnosis: ICD-10-CM Z71.1 Person w feared hlth complaint in whom no diagnosis is madeActiveDiagnosisMINNEAPOLIS [place] HCSDiagnosis: ICD-10-CM E66.09 Other obesity due to excess caloriesActiveDiagnosisMINNEAPOLIS [place] HCSDiagnosis: ICD-10-CM G47.30 Sleep apnea, unspecifiedActiveDiagnosisMINNEAPOLWAYSIDE [facility] HCS Diagnosis: ICD-10-CM F41.1 Generalized anxiety disorderActiveDiagnosis [facility] HCSDiagnosis: ICD-10-CM R30.0 DysuriaActiveDiagnosisSHAKOPEE CBOC Diagnosis: ICD-10-CM R06.83 SnoringActiveDiagnosisHURON VALLEY-SINAI [facility]ITALNEAPOL[facility] [place] HCSDiagnosis: ICD-10-CM R41.89 Oth symptoms and signs w cognitive functions and awareness ActiveDiagnosisSHAKOPEE CBOCDiagnosis: ICD-10-CM G47.9 Sleep disorder, unspecifiedActiveDiagnosisMINNEAPOLIS [place] HCSDiagnosis: ICD-10-CM F32.9 Major depressive disorder, single episode, unspecifiedActiveDiagnosisSHAKOPEE [facility]OC Diagnosis: ICD-10-CM R53.82 Chronic fatigue, unspecifiedActiveDiagnosis [facility] HCSDiagnosis: ICD-10-CM G89.29 Other chronic painActiveDiagnosis [facility] HCSAdmit Reason: ACUTE ON CHRONIC PANCREATITISActiveDiagnosis [facility] HCSDiagnosis: ICD-10-CM R10.13 Epigastric painActiveDiagnosis [facility] HCSDiagnosis: ICD-10-CM R10.9 Unspecified abdominal painActive DiagnosisMINPROVID[facility] HCSDiagnosis: ICD-10-CM E63.9 Nutritional deficiency, unspecifiedActiveDiagnosisMINNEAPOLIS [place] HCSDiagnosis: ICD-10-CM Z71.81 Spiritual or nondenominational counselingActiveDiagnosisMINNEAMEADVILLE [facility] HCSAdmit Reason: PANCREATITISActiveDiagnosisMINNEAPOLWAYSIDE [facility] HCSDiagnosis: ICD-10-CM K85.80 Other acute pancreatitis without necrosis or infectionActiveDiagnosisMINNEAPOLWAYSIDE [facility] HCSDiagnosis: ICD-10-CM R10.10 Upper abdominal pain, unspecifiedActiveDiagnosis [facility] HCSDiagnosis: ICD-10-CM R10.84 Generalized abdominal painActive DiagnosisMINNEAPOLIS WI HCSDiagnosis: ICD-10-CM R53.1 WeaknessActiveDiagnosis [facility] HCSDiagnosis: ICD-10-CM Z73.6 Limitation of activities due to disabilityActiveDiagnosisMINNEAPOLIS [place] HCSDiagnosis: ICD-10-CM G57.12 Meralgia paresthetica, left lower limbActiveDiagnosisMINNEAPOLIS [place] HCSDiagnosis: ICD-10-CM I63.9 Cerebral infarction, unspecifiedActiveDiagnosisMINNEAPOLIS [place] HCSAdmit Reason: ACUTE PANCREATITISActiveDiagnosisMINNEAPOLIS [place] HCSDiagnosis: ICD-10-CM K85.90 Acute pancreatitis without necrosis or infection, unspActive DiagnosisMINNEAPOLIS [place] HCSDiagnosis: ICD-10-CM R19.7 Diarrhea, unspecified ActiveDiagnosisMINNEAPOLIS [place] HCSDiagnosis: ICD-10-CM F51.5 Nightmare disorder ActiveDiagnosisTBRECKSVILLE [facility] CBOCDiagnosis: ICD-10-CM R06.00 Dyspnea, unspecified ActiveDiagnosisMINNEAPOLIS [place] HCSDiagnosis: ICD-10-CM Z13.83 Encounter for screening for respiratory disorder NECActiveDiagnosisSHAKOPE CBOCDiagnosis: ICD-10-CM F43.10 Post-traumatic stress disorder, unspecifiedActiveDiagnosisT[facility] [place] CBOCDiagnosis: ICD-10-CM F33.2 Major depressv disorder, 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 psych featuresActiveDiagnosisMINNEAPOLIS [place] HCSDiagnosis: ICD-10-CM Z51.89 Encounter for other specified aftercareActiveDiagnosisMINNEAPOLIS [facility] HCS Diagnosis: ICD-10-CM H90.3 Sensorineural hearing loss, bilateralActiveDiagnosis [facility] HCSDiagnosis: ICD-10-CM F33.9 Major depressive disorder, recurrent, unspecifiedActiveDiagnosisMINNEAPOLIS [place] HCSDiagnosis: ICD-10-CM Z86.59 Personal history of other mental and behavioral disordersActiveDiagnosis [facility] HCSDiagnosis: ICD-10-CM F33.0 Major depressive disorder, recurrent, mildActiveDiagnosisMINNEAENCOMPASS [facility] Medications Combined list of outpatient medications from 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Medications provided include 1) outpatient medications from the last 15 months, and 2) patient-reported medications. Medication Details Route Status Indication(s) Patie nt Instructions Prescription Expires Prescription Number Last Dispense Date Ordering Provider Order Date Order Qty Source ALBUTEROL 90MCG/ACTUA T (CFC-F) INHL,ORAL,8 .5GM DOSE COUNTER INHALE 1 PUFF BY INHALATI ON FOUR TIMES A DAY NEEDED FOR SHORTNES S OF BREATH RESPIR ATORY (INHAL ATION) DISCONT INUED BY PROVIDE R 04/20/2025 [id number] PRESTON GRACIA 2023 2 [facility] AMYLASE 120,000UNIT /LIPASE 24,000UNIT/ PROTEASE 76,000UNIT CAP,EC TAKE 1 CAPSULE BY MOUTH THREE TIMES A DAY WITH MEALS FOR PANCREAS : SWALLOW WHOLE AND FOLLOW WITH WATER OR JUICE TO ENSURE NO MEDICATI ON REMAINS IN MOUTH. HOLD IF NOT EATING. ORAL 05/19/2025 [id number] LAINA KENDALL R 2023 100 [facility] AMYLASE 60,000UNIT/ LIPASE 12,000UNIT/ PROTEASE 38,000UNIT CAP,EC TAKE 1 CAPSULE BY MOUTH DIRECTED WITH SNACKS FOR PANCREAS : SWALLOW WHOLE AND FOLLOW WITH WATER OR JUICE TO ENSURE NO MEDICATI ON REMAINS IN MOUTH. ORAL 05/19/2025 [id number] 5 LAINA KENDALL R 2023 100 [facility] ATORVASTATI N CA 40MG TAB TAKE ONE TABLET BY MOUTH AT BEDTIME FOR CHOLESTE ROL ORAL ACTIVE 06/07/2026 [id number] 5 PRESTON GRACIA 2024 90 [facility] ATORVASTATI N CA 40MG TAB TAKE ONE TABLET BY MOUTH AT BEDTIME FOR CHOLESTE ROL ORAL DISCONT INUED 04/20/2025 [id number] 4 PRESTON GRACIA 2023 90 [facility] BUPROPION HCL 150MG 24HR TAB,SA TAKE ONE TABLET BY MOUTH EVERY MORNING FOR 14 DAYS, THEN TAKE TWO TABLETS EVERY MORNING FOR DEPRESSI ON ORAL DISCONT INUED (EDIT) 06/10/2025 [id number] 4 TANSEY,ER IN L 2023 46 [facility] BUPROPION HCL 150MG 24HR TAB,SA TAKE ONE TABLET BY MOUTH EVERY MORNING FOR 14 DAYS, THEN TAKE TWO TABLETS EVERY MORNING FOR DEPRESSI ON ORAL DISCONT INUED (EDIT) 07/09/2024 [id number] 4 TANSEY,ER IN L 2023 46 [facility] BUPROPION HCL 300MG 24HR TAB,SA TAKE ONE TABLET BY MOUTH EVERY MORNING FOR DEPRESSI ON ORAL ACTIVE 12/23/2025 [id number] 5 TANSEY,ER IN L 2024 90 [facility] BUPROPION HCL 300MG 24HR TAB,SA TAKE ONE TABLET BY MOUTH EVERY MORNING FOR DEPRESSI ON ORAL DISCONT INUED (EDIT) 07/13/2025 [id number] 5 EDUSEY,ER IN L 2023 60 [facility] CETIRIZINE HCL 10MG TAB TAKE TWO TABLETS BY MOUTH EVERY DAY NEEDED ORAL ACTIVE PRESTON GRACIA 2024 [facility] DULOXETINE HCL 60MG CAP,EC TAKE TWO CAPSULES BY MOUTH EVERY DAY FOR DEPRESSI ON ORAL 04/29/2025 [id number] 5 ROHIT,ER IN L 2023 180 [facility] ENSURE CLEAR LIQUID MIXED DOSHI 1 CARTON BY MOUTH EVERY DAY FOR NUTRITIO NAL SUPPLEME NT ORAL DISCONT INUED BY PROVIDE R 08/13/2025 [id number] 5 PRESTON GRACIA 2024 24 [facility] EPINEPHRINE (EQV-EPI-PE N) 0.3MG/0.3ML INJECTOR INJECT 1 PEN DIRECTED NEEDED FOR ALLERGIC REACTION ACTIVE 05/05/2026 [id number] 5 PRESTON GRACIA 2024 2 [facility] EPINEPHRINE (EQV-EPI-PE N) 0.3MG/0.3ML INJECTOR INJECT 1 PEN DIRECTED NEEDED FOR ALLERGIC REACTION DISCONT INUED 04/20/2025 [id number] 5 PRESTON GRACIA 2023 2 [facility] FEXOFENADIN E HCL 180MG TAB TAKE ONE TABLET BY MOUTH EVERY MORNING FOR ALLERGIE S ORAL ACTIVE 05/05/2026 [id number] 5 PRESTON GRACIA 2024 90 [facility] FEXOFENADIN E HCL 180MG TAB TAKE ONE TABLET BY MOUTH EVERY MORNING FOR ALLERGIE S ORAL DISCONT INUED 04/21/2025 [id number] 5 PRESTON GRACIA 2023 90 [facility] HYDROMORPHO NE HCL 2MG TAB TAKE TWO TABLETS BY MOUTH EVERY 6 HOURS NEEDED ORAL ACTIVE PRESTON GRACIA 2022 [facility] LACTULOSE 10GM/15ML SOLN,ORAL TAKE 60ML BY MOUTH ONCE FOR 1 DAY, THEN TAKE 60ML ONCE FOR 1 DAY, THEN TAKE 60ML ONCE FOR 1 DAY, THEN TAKE 15ML ONCE FOR COLON PREP (PATIENT HAS PEG ALLERGY) ORAL 07/10/2025 [id number] 5 ALISIA ADAMS 2024 480 [facility] MULTIVITAMI NS CAP/TAB TAKE BY MOUTH ORAL ACTIVE UDOMPAP,P ROWPANGA 2024 [place] [facility] NALOXONE HCL 4MG/SPRAY SOLN,SPRAY, NASAL SPRAY 1 DOSE IN ONE NOSTRIL DIRECTED FOR UNRESPON SIVENESS THEN CALL 911 - IF NO CHANGE IN 2-3 MINUTES, GIVE SECOND DOSE IN OPPOSITE NOSTRIL NASAL ACTIVE 05/05/2026 [id number] 5 PRESTON GRACIA 2024 2 [facility] ONDANSETRON HCL 4MG TAB,ORALLY DISINTEGRAT ING DISSOLVE ONE TABLET BY UNDER THE TONGUE EVERY 6 HOURS NEEDED FOR NAUSEA AND VOMITING SUBLIN GUAL ACTIVE 05/05/2026 [id number] 5 PRESTON GRACIA 2024 30 [facility] ONDANSETRON HCL 4MG TAB,ORALLY DISINTEGRAT ING DISSOLVE ONE TABLET BY UNDER THE TONGUE EVERY 6 HOURS NEEDED FOR NAUSEA AND VOMITING SUBLIN GUAL DISCONT INUED 04/20/2025 [id number] 5 PRESTON GRACIA 2023 30 [facility] OXYCODONE HCL 5MG TAB TAKE ONE TABLET BY MOUTH EVERY 4 HOURS NEEDED FOR 3 DAYS, THEN TAKE ONE TABLET EVERY 6 HOURS NEEDED FOR 3 DAYS, THEN TAKE ONE TABLET EVERY 8 HOURS NEEDED FOR 3 DAYS FOR PAIN - DO NOT TAKE HYDROMOR PHONE WHILE USING THIS RX ORAL DISCONT INUED 07/31/2024 [id number] 4 Carlos NEGRON 2023 39 [facility] OXYCODONE HCL 5MG TAB TAKE ONE TABLET BY MOUTH EVERY 6 HOURS NEEDED FOR PAIN ORAL 08/19/2024 [id number] EYAL TREJO [address] [facility] [facility] PRAZOSIN HCL 2MG CAP TAKE TWO CAPSULES BY MOUTH AT BEDTIME FOR NIGHTMAR ES ORAL ACTIVE 12/23/2025 [id number] 5 TANSEY,ER IN L 2024 180 [facility] PRAZOSIN HCL 2MG CAP TAKE TWO CAPSULES BY MOUTH AT BEDTIME FOR NIGHTMAR ES ORAL DISCONT INUED 10/06/2025 [id number] 5 TANSEY,ER IN L 2024 180 [facility] PRAZOSIN HCL 2MG CAP TAKE TWO CAPSULES BY MOUTH AT BEDTIME FOR NIGHTMAR ES ORAL DISCONT INUED 04/29/2025 [id number] 5 TANSEY,ER IN L 2023 60 [facility] QUETIAPINE FUMARATE 200MG TAB TAKE ONE TABLET BY MOUTH EVERY MORNING FOR DEPRESSI ON ORAL DISCONT INUED (EDIT) 04/29/2025 [id number] 5 TANSEY,ER IN L 2023 30 [facility] QUETIAPINE FUMARATE 300MG TAB TAKE ONE TABLET BY MOUTH AT BEDTIME FOR DEPRESSI ON ORAL ACTIVE 12/23/2025 [id number] 5 TANSEY,ER IN L 2024 90 [facility] QUETIAPINE FUMARATE 300MG TAB TAKE ONE TABLET BY MOUTH AT BEDTIME FOR DEPRESSI ON ORAL DISCONT INUED (EDIT) 04/29/2025 [id number] 5 TANSEY,ER IN L 2023 30 [facility] QUETIAPINE FUMARATE 50MG TAB TAKE TWO TABLETS BY MOUTH EVERY MORNING FOR 14 DAYS, THEN TAKE ONE TABLET EVERY MORNING FOR MOOD ORAL ACTIVE 12/23/2025 [id number] 5 TANSEY,ER IN L 2024 74 [facility] SIMETHICONE 125MG TAB,CHEW CHEW ONE TABLET BY MOUTH BOILER TESTER NEEDED FOR COLON PREP ORAL ACTIVE 08/09/2025 [id number] 5 ALISIA ADAMS 2024 60 [facility] TRAZODONE HCL 50MG TAB TAKE ONE TABLET BY MOUTH AT BEDTIME NEEDED FOR SLEEP ORAL ACTIVE 12/23/2025 [id number] 5 TANSEY,ER IN L 2024 90 [facility] TRAZODONE HCL 50MG TAB TAKE ONE TABLET BY MOUTH AT BEDTIME NEEDED FOR SLEEP ORAL DISCONT INUED (EDIT) 04/29/2025 [id number] 5 TANSEY,ER IN L 2023 30 [facility] VITAL AF 1.2 TYSON LIQUID 1 CAN BY FEEDING TUBE THREE TIMES A DAY 75 ML/HR X 10 HRS (OR UNTIL 3 CANS INFUSE) WITH FWF 30 MLS AT START/ST OP OF FEEDING 75 ML/HR X 10 HRS (OR UNTIL 3 CANS INFUSE) WITH FWF 30 MLS AT START/ST OP OF FEEDING ORAL DISCONT INUED BY PROVIDE R 07/20/2025 [id number] 4 RAHEL DAILY 2023 96 [facility] Allergies, Adverse Reactions, Alerts Combined list of allergies from 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 It does not include entries that were removed or entered in error. Substance Category Reaction Severity Reaction type Status Date Reported Comments Source FENTANYL Propensity to adverse reactions to drug (finding) Abdominal pain SEVERE active 3 [facility] FLUARIX (INFLUENZA TVS - VACCINE/PF ) Drug allergy (disorder) Unknown active 7 [place], [place] INFLUENZA Propensity to adverse reactions to drug (finding) Anaphylaxis SEVERE active 3 [facility] MIRALAX Propensity to adverse reactions to drug (finding) Anaphylaxis SEVERE active 3 [facility] PFIZER COVID-19 VACCINE (EUA) Propensity to adverse reactions to drug (finding) Anaphylaxis, Urticaria, Itching, Dyspnea SEVERE active 3 [facility] Immunizations Combined list of available immunizations from the 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 Immunization Series Date Given Administered By Site Reaction Lot Number CVX Code Drug Stock Patch Sawyer Status Comments Source COVID-19 (STEPHANIE), VECTOR-NR, RS-AD26, PF, 0.5 ML 4 2021 212 complet ed HISTORICA L INFORMATI ON - FROM OTHER REGISTRY, [facility] COVID-19 vaccine, vector-nr, rS-Ad26, PF, 0.5 mL 2021 ATTARIAN, () Not Given COVID-19 vaccine, vector-nr , rS-Ad26, PF, 0.5 mL DoD COVID-19 ([employer]), VECTOR-NR, RS-AD26, PF, 0.5 ML 3 2021 212 complet ed HISTORICA L INFORMATI ON - FROM OTHER REGISTRY, [facility] COVID-19 vaccine, vector-nr, rS-Ad26, PF, 0.5 mL 2021 ATTARIAN, [employer] (JSN) Not Given COVID-19 vaccine, vector-nr , rS-Ad26, PF, 0.5 mL DoD COVID-19 (STEPHANIE), VECTOR-NR, RS-AD26, PF, 0.5 ML 2 2020 212 complet ed HISTORICA L INFORMATI ON - FROM OTHER REGISTRY, [facility] COVID-19 (PFIZER), MRNA, LNP-S, PF, 30 MCG/0.3 ML DOSE 1 2019 208 complet ed HISTORICA L INFORMATI ON - FROM OTHER REGISTRY, [facility] TD (ADULT) 2016 138 complet ed HISTORICA L INFORMATI ON - FROM OTHER REGISTRY, [facility] TD (ADULT), 5 LF TETANUS TOXOID, PRESERVATIVE FREE, ADSORBED 2016 113 complet ed HISTORICA L INFORMATI ON - FROM OTHER REGISTRY, [facility] TDAP 2006 115 complet ed HISTORICA L INFORMATI ON - FROM OTHER REGISTRY, [facility] Results Combined list of recent chemistry, hematology and other laboratory results from Department of Defense and Veterans Affairs, ranging from 15 months to all on record, depending upon the facility. Order Name Results Value Reference Range Date Interpretation Sp ecimen Comments Source C.TRACHOMATIS/N.GONORRHEA DNA CHLAMYDIA TRACHOMATIS DNA [PRESENCE] IN VAGINAL FLUID BY JULIO CÉSAR WITH PROBE DETECTION NOT DETECTED 05/30/2025 Specime n Type: VAGINA No comment entered. Ordering Provider: EMIR GRACIA Report Released Date/Time: May 04, 2025 02:22 PM Reporting Lab: [facility] [address] Performing Lab: [facility] [id number] [facility] C.TRACHOMATIS/N.GONORRHEA DNANEISSERIA GONORRHOEAE DNA [PRESENCE] IN VAGINAL FLUID BY JULIO CÉSAR WITH PROBE DETECTIONNOT [id number]/10/2025Specimen Type: VAGINA No comment entered. Ordering Provider: EMIR GRACIA Report Released Date/Time: May 04, 2025 02:22 PM Reporting Lab: [facility] [address] Performing Lab: [facility] [id number] [facility] C.TRACHOMATIS/N.GONORRHEA DNAINTERPRETATION AND REVIEW OF LABORATORY RESULTS Infectious agent DNA is not detected by this assay05/30/2025Specimen Type: VAGINA No comment entered. Ordering Provider: EMIR GRACIA Report Released Date/Time: May 04, 2025 02:22 PM Reporting Lab: [facility] [address] Performing Lab: [facility] [id number] CBOCHUMAN PAPILLOMA VIRUS,DNA HIGH RISKHUMAN PAPILLOMA VIRUS 16 DNA [PRESENCE] IN CERVIX BY JULIO CÉSAR WITH PROBE [id number]/10/2025Specimen Type: CERVICAL VAGINAL CYTOLOGIC MATERIAL No comment entered. Ordering Provider: EMIR GRACIA Report Released Date/Time: May 30, 2025 02:45 PM Reporting Lab: [facility] [address] Performing Lab: [facility] [id number] CBOCHUMAN [place]OMA VIRUS,DNA HIGH RISKHUMAN [place]AP[place]OMA VIRUS 18 DNA [PRESENCE] IN CERVIX BY JULIO CÉSAR WITH PROBE [id number]/10/2025Specimen Type: CERVICAL VAGINAL CYTOLOGIC MATERIAL No comment entered. Ordering Provider: EMIR GRACIA Report Released Date/Time: May 30, 2025 02:45 PM Reporting Lab: [facility] [address] Performing Lab: [facility] [id number] CBOCHUMAN [place] VIRUS,DNA HIGH RISKHUMAN PAPILLOMA VIRUS 16+18+31+33+35+45+51+52+56 DNA [PRESENCE] IN CERVIX BY [id number]/10/2025Specimen Type: CERVICAL VAGINAL CYTOLOGIC MATERIAL No comment entered. Ordering Provider: EMIR GRACIA Report Released Date/Time: May 30, 2025 02:45 PM Reporting Lab: [facility] [address] Performing Lab: [facility] [id number] CBOCHUMAN [place]APILLOMA VIRUS,DNA HIGH RISKINTERPRETATION AND REVIEW OF LABORATORY RESULTSHR-HPV is undetectable or below preset threshold.05/30/2025Specimen Type: CERVICAL VAGINAL CYTOLOGIC MATERIAL No comment entered. Ordering Provider: EMIR GRACIA Report Released Date/Time: May 30, 2025 02:45 PM Reporting Lab: [facility] [address] Performing Lab: [facility] [id number] CBOCOCCULT BLOOD FIT X1 SCREENHEMOGLOBIN.GASTROINTESTINAL.LOWER [PRESENCE] IN STOOL BY IMMUNOASSAY YORDLBSQ38/17/2025HHSpecimen Type: FECES No comment entered. Ordering Provider: EMIR GRACIA Report Released Date/Time: May 04, 2025 02:31 PM Reporting Lab: [facility] [address] Performing Lab: [facility] [id number] CBOCSYPHILIS AB/RPR RFLX SYPHILIS SCREEN TEST STATUS WINHZQAQDMFJ96/15/2025Specimen Type: SERUM No comment entered. Ordering Provider: EMIR GRACIA Report Released Date/Time: May 04, 2025 02:23 PM Reporting Lab: [facility] [address] Performing Lab: [facility] [id number] CBOCBASIC METABOLIC PANEL+MGCREATININE [MASS/VOLUME] IN SERUM OR PLASMA1.1 mg/dL0.5 - 1.010/H Specimen Type: PLASMA No comment entered. Ordering Provider: EMIR GRACIA Report Released Date/Time: May 04, 2025 02:23 PM Reporting Lab: [facility] [address] Performing Lab: [facility] [id number] CBOCBASIC METABOLIC PANEL+MGUREA NITROGEN [MASS/VOLUME] IN SERUM OR PLASMA9 mg/dL7 - Specimen Type: PLASMA No comment entered. Ordering Provider: EMIR GRACIA Report Released Date/Time: May 04, 2025 02:23 PM Reporting Lab: [facility] [address] Performing Lab: [facility] [id number] CBOCBASIC METABOLIC PANEL+MGGLUCOSE [MASS/VOLUME] IN SERUM OR SPDVSQ90 mg/dL70 - [id number]/04/2025 Specimen Type: PLASMA No comment entered. Ordering Provider: EMIR GRACIA Report Released Date/Time: May 04, 2025 02:23 PM Reporting Lab: [facility] [address] Performing Lab: [facility] [id number] CBOCBASIC METABOLIC PANEL+MGSODIUM [MOLES/VOLUME] IN SERUM OR [id number] mmol/L136 - [id number]/04/2025 Specimen Type: PLASMA No comment entered. Ordering Provider: EMIR GRACIA Report Released Date/Time: May 04, 2025 02:23 PM Reporting Lab: [facility] [address] Performing Lab: [facility] [id number] CBOCBASIC METABOLIC PANEL+MGPOTASSIUM [MOLES/VOLUME] IN SERUM OR PLASMA3.5 mmol/L3.5 - 5.110/ Specimen Type: PLASMA No comment entered. Ordering Provider: EMIR GRACIA Report Released Date/Time: May 04, 2025 02:23 PM Reporting Lab: [facility] [address] Performing Lab: [facility] [id number] CBOCBASIC METABOLIC PANEL+MGCHLORIDE [MOLES/VOLUME] IN SERUM OR [id number] mmol/L98 - [address]886 Specimen Type: PLASMA No comment entered. Ordering Provider: EMIR GRACIA Report Released Date/Time: May 04, 2025 02:23 PM Reporting Lab: [facility] [address] Performing Lab: [facility] [id number] CBOCBASIC METABOLIC PANEL+MGCARBON DIOXIDE, TOTAL [MOLES/VOLUME] IN SERUM OR HYOYPS34 mmol/L22 - 29 10Specimen Type: PLASMA No comment entered. Ordering Provider: EMIR GRACIA Report Released Date/Time: May 04, 2025 02:23 PM Reporting Lab: [facility] [address] Performing Lab: [facility] [id number] CBOCBASIC METABOLIC PANEL+MGCALCIUM [MASS/VOLUME] IN SERUM OR PLASMA9.1 mg/dL8.4 - 10.210/ Specimen Type: PLASMA No comment entered. Ordering Provider: EMIR GRACIA Report Released Date/Time: May 04, 2025 02:23 PM Reporting Lab: [facility] [address] Performing Lab: [facility] [id number] CBOCBASIC METABOLIC PANEL+MGMAGNESIUM [MASS/VOLUME] IN SERUM OR PLASMA2.1 mg/dL1.6 - 2.610/ Specimen Type: PLASMA No comment entered. Ordering Provider: EMIR GRACIA Report Released Date/Time: May 04, 2025 02:23 PM Reporting Lab: [facility] [address] Performing Lab: [facility] [id number] CBOCBASIC METABOLIC PANEL+MGANION GAP IN SERUM OR PLASMA BY CALCULATION9 mmol/L5 - 151 Specimen Type: PLASMA No comment entered. Ordering Provider: EMIR GRACIA Report Released Date/Time: May 04, 2025 02:23 PM Reporting Lab: [facility] [address] Performing Lab: [facility] [address]OJLZSNGA CBOCBASIC METABOLIC PANEL+MGGLOMERULAR FILTRATION RATE [VOLUME RATE/AREA] IN SERUM, PLASMA OR BLOOD BY CREATININE-BASED FORMULA(CKD-EPI 2020)/1.73 SQ [id number] Type: PLASMA No comment entered. Ordering Provider: EMIR GRACIA Report Released Date/Time: May 04, 2025 02:23 PM Reporting Lab: [facility] [address] Performing Lab: [facility] [address]FSETAZTO CBOCURINALYSISCOLOR OF MGRGXJXHNRP75/15/2025Specimen Type: URINE No comment entered. Ordering Provider: EMIR GRACIA Report Released Date/Time: May 04, 2025 02:22 PM Reporting Lab: [facility] [address] Performing Lab: [facility] [address]LTGBIFLR CBOCURINALYSISSPECIFIC GRAVITY OF URINE1.0341.003 - 1.6091705/04/2025Specimen Type: URINE No comment entered. Ordering Provider: EMIR GRACIA Report Released Date/Time: May 04, 2025 02:22 PM Reporting Lab: [facility] [address] Performing Lab: [facility] [address]PJSOKOFH CBOCURINALYSIS BILIRUBIN.TOTAL [PRESENCE] IN URINE BY TEST XGOQAYTTKIKOH08/15/2025Specimen Type: URINE No comment entered. Ordering Provider: EMIR GRACIA Report Released Date/Time: May 04, 2025 02:22 PM Reporting Lab: [facility] [address] Performing Lab: [facility] [address]DJGFYJOB CBOCURINALYSISKETONES [MASS/VOLUME] IN URINE BY TEST LRBNIWROFO84/15/2025HSpecimen Type: URINE No comment entered. Ordering Provider: EMIR GRACIA Report Released Date/Time: May 04, 2025 02:22 PM Reporting Lab: [facility] [address] Performing Lab: [facility] [address]MFJROFQD CBOCURINALYSISGLUCOSE [MASS/VOLUME] IN URINE BY TEST STRIPNEGATIVEmg/dL<30 - 3010Specimen Type: URINE No comment entered. Ordering Provider: EMIR GRACIA Report Released Date/Time: May 04, 2025 02:22 PM Reporting Lab: [facility] [address] Performing Lab: [facility] [address]OSAJUMZJ CBOCURINALYSISPROTEIN [MASS/VOLUME] IN URINE BY TEST STRIP30 mg/dL<20 - HSpecimen Type: URINE No comment entered. Ordering Provider: EMIR GRACIA Report Released Date/Time: May 04, 2025 02:22 PM Reporting Lab: [facility] [address] Performing Lab: [facility] [address]GKIHGJLE CBOCURINALYSISPH OF URINE BY TEST STRIP6.05.0 - 8.010Specimen Type: URINE No comment entered. Ordering Provider: EMIR GRACIA Report Released Date/Time: May 04, 2025 02:22 PM Reporting Lab: [facility] [address] Performing Lab: [facility] [address]LPPEGVHK CBOCURINALYSISLEUKOCYTES [#/AREA] IN URINE SEDIMENT BY MICROSCOPY HIGH POWER FIELD1 /[HPF]0 - 710 Specimen Type: URINE No comment entered. Ordering Provider: EMIR GRACIA Report Released Date/Time: May 04, 2025 02:22 PM Reporting Lab: [facility] [address] Performing Lab: [facility] [address]NVGRPATO CBOCURINALYSISBACTERIA [PRESENCE] IN URINE SEDIMENT BY LIGHT APQYZUUYJTEHK58/15/2025HSpecimen Type: URINE No comment entered. Ordering Provider: EMIR GRACIA Report Released Date/Time: May 04, 2025 02:22 PM Reporting Lab: [facility] [address] Performing Lab: [facility] [address]EZXTWGDQ CBOCURINALYSISERYTHROCYTES [#/AREA] IN URINE SEDIMENT BY MICROSCOPY HIGH POWER FIELD3 /[HPF]0 - 310 Specimen Type: URINE No comment entered. Ordering Provider: EMIR GRACIA Report Released Date/Time: May 04, 2025 02:22 PM Reporting Lab: [facility] [address] Performing Lab: [facility] [address]AJUSUWSX CBOCURINALYSISAPPEARANCE OF OXTPBVZLMEG62/15/2025Specimen Type: URINE No comment entered. Ordering Provider: EIMR GRACIA Report Released Date/Time: May 04, 2025 02:22 PM Reporting Lab: [facility] [address] Performing Lab: [facility] [address]ZIIFZEDK CBOCURINALYSISEPITHELIAL CELLS.SQUAMOUS [#/AREA] IN URINE SEDIMENT BY MICROSCOPY HIGH POWER FIELD18 /[HPF]<5 - 510HSpecimen Type: URINE No comment entered. Ordering Provider: EMIR GRACIA Report Released Date/Time: May 04, 2025 02:22 PM Reporting Lab: [facility] [address] Performing Lab: [facility] [address]KPFMAEYK CBOCURINALYSISHEMOGLOBIN [PRESENCE] IN URINE BY TEST LYVNEFIBSU06/15/2025HSpecimen Type: URINE No comment entered. Ordering Provider: EMIR GRACIA Report Released Date/Time: May 04, 2025 02:22 PM Reporting Lab: [facility] [address] Performing Lab: [facility] [address]DAUWPHSA CBOCURINALYSISNITRITE [PRESENCE] IN URINE BY TEST NNLVIEAZQOXUL72/15/2025Specimen Type: URINE No comment entered. Ordering Provider: EMIR GRACIA Report Released Date/Time: May 04, 2025 02:22 PM Reporting Lab: [facility] [address] Performing Lab: [facility] [address]TGHNHVNE CBOCURINALYSISLEUKOCYTE ESTERASE [PRESENCE] IN URINE BY TEST GRFLAXVPFZKMA68/15/2025Specimen Type: URINE No comment entered. Ordering Provider: EMIR GRACIA Report Released Date/Time: May 04, 2025 02:22 PM Reporting Lab: [facility] [address] Performing Lab: [facility] [address]KNINRCML CBOCHIV AG/AB SCREENHIV 1+2 AB+HIV1 P24 AG [PRESENCE] IN SERUM OR PLASMA BY TDMOPTASIBBKUNUREJX08/15/2025 Specimen Type: SERUM No comment entered. Ordering Provider: EMIR GRACIA Report Released Date/Time: May 04, 2025 02:20 PM Reporting Lab: [facility] [address] Performing Lab: [facility] [address]SGOKRSYO CBOCLIPID PANEL,NON-FASTING CHOLESTEROL [MASS/VOLUME] IN SERUM OR ZFPRPC512 mg/dL<199 - H Specimen Type: PLASMA Comment: Elevated triglyceride result from a non-fasting specimen should be interpreted with caution. A fasting panel is recommended for accurate triglycerides when trigs are >200 from a non-fasting specimen. Ordering Provider: EMIR GRACIA Report Released Date/Time: May 04, 2025 02:22 PM Reporting Lab: [facility] [address] Performing Lab: [facility] [address]HFHMITWF CBOCLIPID PANEL,NON-FASTING CHOLESTEROL IN HDL [MASS/VOLUME] IN SERUM OR RWXLVC77 mg/cA914305/04/2025LSpecimen Type: PLASMA Comment: Elevated triglyceride result from a non-fasting specimen should be interpreted with caution. A fasting panel is recommended for accurate triglycerides when trigs are >200 from a non-fasting specimen. Ordering Provider: EMIR GRACIA Report Released Date/Time: May 04, 2025 02:22 PM Reporting Lab: [facility] [address] Performing Lab: [facility] [address]XPWWZWFB CBOCLIPID PANEL,NON-FASTING CHOLESTEROL IN LDL [MASS/VOLUME] IN SERUM OR PLASMA BY CVLAQCBWRXY419 mg/dL<99 - 9905/04/2025HSpecimen Type: PLASMA Comment: Elevated triglyceride result from a non-fasting specimen should be interpreted with caution. A fasting panel is recommended for accurate triglycerides when trigs are >200 from a non-fasting specimen. Ordering Provider: EMIR GRACIA Report Released Date/Time: May 04, 2025 02:22 PM Reporting Lab: [facility] [address] Performing Lab: [facility] [address]ADRBPXXT CBOCLIPID PANEL,NON-FASTING CHOLESTEROL IN VLDL [MASS/VOLUME] IN SERUM OR PLASMA BY LRCNGPJWRCH25 mg/dL<29 - 291HSpecimen Type: PLASMA Comment: Elevated triglyceride result from a non-fasting specimen should be interpreted with caution. A fasting panel is recommended for accurate triglycerides when trigs are >200 from a non-fasting specimen. Ordering Provider: EMIR GRACIA Report Released Date/Time: May 04, 2025 02:22 PM Reporting Lab: [facility] [address] Performing Lab: [facility] [address]BCBDHFTC CBOCLIPID PANEL,NON-FASTING CHOLESTEROL NON HDL [MASS/VOLUME] IN SERUM OR BSNLZX063 mg/dL<129 - 129 05/04/2025HSpecimen Type: PLASMA Comment: Elevated triglyceride result from a non-fasting specimen should be interpreted with caution. A fasting panel is recommended for accurate triglycerides when trigs are >200 from a non-fasting specimen. Ordering Provider: EMIR GRACIA Report Released Date/Time: May 04, 2025 02:22 PM Reporting Lab: [facility] [address] Performing Lab: [facility] [address]ZKODLNII CBOCLIPID PANEL,NON-FASTING TRIGLYCERIDE [MASS/VOLUME] IN SERUM OR JOHLGX421 mg/dL<149 - 55046/H Specimen Type: PLASMA Comment: Elevated triglyceride result from a non-fasting specimen should be interpreted with caution. A fasting panel is recommended for accurate triglycerides when trigs are >200 from a non-fasting specimen. Ordering Provider: EMIR GRACIA Report Released Date/Time: May 04, 2025 02:22 PM Reporting Lab: [facility] [address] Performing Lab: [facility] [address]SQAXMNEJ CBOCLYME SCREEN W/ REFLEX .LYME TOTAL RXYLFPGNNQMTXT76/03/2025HSpecimen Type: SERUM Comment: Positive or equivocal results with the LIAISON Lyme Total Antibody Plus are tested with supplemental testing by modified two-tier test (MTTT) methodology using LIAISON Lyme IgM and LIAISON Lyme IgG assays. Positive or equivocal screening test results should not be interpreted as truly positive until verified as such using a supplemental assay. Positive supplemental results by the MTTT are supportive evidence of the presence of antibodies and of exposure to Borrelia burgdorferi and may be used along with patient history, symptoms and other laboratory data to support a clinical diagnosis of Lyme disease. Ordering Provider: EARLINE CONROY Report Released Date/Time: Feb 28, 2025 10:48 AM Reporting Lab: [facility] [address] Performing Lab: [facility] [address]NNCGGHRD CBOCLYME SCREEN W/ REFLEX .LYME IGG VRISIOLEIJTAVH99/03/2025Specimen Type: SERUM Comment: Positive or equivocal results with the LIAISON Lyme Total Antibody Plus are tested with supplemental testing by modified two-tier test (MTTT) methodology using LIAISON Lyme IgM and LIAISON Lyme IgG assays. Positive or equivocal screening test results should not be interpreted as truly positive until verified as such using a supplemental assay. Positive supplemental results by the MTTT are supportive evidence of the presence of antibodies and of exposure to Borrelia burgdorferi and may be used along with patient history, symptoms and other laboratory data to support a clinical diagnosis of Lyme disease. Ordering Provider: EARLINE CONROY Report Released Date/Time: Feb 28, 2025 10:48 AM Reporting Lab: [facility] [address] Performing Lab: [facility] [address]UKHESMYJ CBOCLYME SCREEN W/ REFLEX .LYME IGM SBPCIQSHXYALEG36/03/2025HSpecimen Type: SERUM Comment: Positive or equivocal results with the LIAISON Lyme Total Antibody Plus are tested with supplemental testing by modified two-tier test (MTTT) methodology using LIAISON Lyme IgM and LIAISON Lyme IgG assays. Positive or equivocal screening test results should not be interpreted as truly positive until verified as such using a supplemental assay. Positive supplemental results by the MTTT are supportive evidence of the presence of antibodies and of exposure to Borrelia burgdorferi and may be used along with patient history, symptoms and other laboratory data to support a clinical diagnosis of Lyme disease. Ordering Provider: EARLINE CONROY Report Released Date/Time: Feb 28, 2025 10:48 AM Reporting Lab: [facility] [address] Performing Lab: [facility] [address]ERBXTZJW CBOCPOC URINALYSISSPECIFIC GRAVITY OF URINE1.0151.001 - 1.51581Specimen Type: URINE No comment entered. Ordering Provider: EMIR GRACIA Report Released Date/Time: Feb 01, 2025 02:15 PM Reporting Lab: [facility] [address] [facility] [address] Performing Lab: [facility] [address] [facility] [address]YJBYYCFJ CBOCPOC URINALYSISPH OF URINE BY TEST STRIP6.04.6 - 8.007/Specimen Type: URINE No comment entered. Ordering Provider: EMIR GRACIA Report Released Date/Time: Feb 01, 2025 02:15 PM Reporting Lab: [facility] [address] [place] [place] [address] Performing Lab: [facility] [address] [place] [place] [address]UYWAVDNQ CBOCPOC URINALYSISLEUKOCYTE ESTERASE [PRESENCE] IN URINE BY TEST ODPZQUvjld12/15/2025HSpecimen Type: URINE No comment entered. Ordering Provider: EMIR GRACIA Report Released Date/Time: Feb 01, 2025 02:15 PM Reporting Lab: [facility] [address] [facility] [address] Performing Lab: [facility] [address] [facility] [address]LGNELJOV CBOCPOC URINALYSISNITRITE [PRESENCE] IN URINE BY TEST KHARQNfcpzvah20/15/2025Specimen Type: URINE No comment entered. Ordering Provider: EMIR GRACIA Report Released Date/Time: Feb 01, 2025 02:15 PM Reporting Lab: [facility] [address] [place] [place] [address] Performing Lab: [facility] [address] [facility] [address]BQDXQWVS CBOCPOC URINALYSISPROTEIN [PRESENCE] IN URINENegativemg/dL02/01/2025Specimen Type: URINE No comment entered. Ordering Provider: EMIR GRACIA Report Released Date/Time: Feb 01, 2025 02:15 PM Reporting Lab: [facility] [address] [facility] [address] Performing Lab: [facility] [address] [facility] [place] [place] [address]QXROVDKC CBOCPOC URINALYSISFASTING GLUCOSE [PRESENCE] IN URINE BY TEST STRIPNegativemg/dL02/01/2025Specimen Type: URINE No comment entered. Ordering Provider: EMIR GRACIA Report Released Date/Time: Feb 01, 2025 02:15 PM Reporting Lab: [facility] [address] [place] [address] Performing Lab: [facility] [address] [facility] [place] [address]WUELPFMM CBOCPOC URINALYSISKETONES [MASS/VOLUME] IN URINE BY TEST STRIPNegativemg/dL02/01/2025Specimen Type: URINE No comment entered. Ordering Provider: EMIR GRACIA Report Released Date/Time: Feb 01, 2025 02:15 PM Reporting Lab: [facility] [address] [place] [place] [address] Performing Lab: [facility] [address] [facility] [address]BLRUPDWS CBOCPOC URINALYSIS BILIRUBIN.TOTAL [MASS/VOLUME] IN WDNWONfucukin70/15/2025Specimen Type: URINE No comment entered. Ordering Provider: EMIR GRACIA Report Released Date/Time: Feb 01, 2025 02:15 PM Reporting Lab: [facility] [address] [place] [place] [address] Performing Lab: [facility] [address] [facility] [address]WUYAQSCA CBOCPOC URINALYSISHEMOGLOBIN [PRESENCE] IN URINE BY TEST YROVQBgnldfyk04/15/2025Specimen Type: URINE No comment entered. Ordering Provider: EMIR GRACIA Report Released Date/Time: Feb 01, 2025 02:15 PM Reporting Lab: [facility] [address] [place] [address] Performing Lab: [facility] [address] [facility] [address]XAVYXOCA [facility] URINALYSISCOLOR OF URINE Hfyjxu8302/01/2025Specimen Type: URINE No comment entered. Ordering Provider: EMIR GRACIA Report Released Date/Time: Feb 01, 2025 02:15 PM Reporting Lab: [facility] [address] [place] [address] Performing Lab: [facility] [address] [facility] [address]GQMQJYCI CBOCPOC URINALYSISAPPEARANCE OF EEUPZPoupu82/15/2025Specimen Type: URINE No comment entered. Ordering Provider: EMIR GRACIA Report Released Date/Time: Feb 01, 2025 02:15 PM Reporting Lab: [facility] [address] [facility] [address] Performing Lab: [facility] [address] [facility] [address]TMCIXXNX CBOC Vital Signs Combined list of inpatient and outpatient Vital Signs from Department of Defense and Veterans Affairs, ranging from 12 months to all on record, depending upon the facility. Vital Sign Value Date Comments Source PULSE OXIMETRY 98 % 06/06/2025 13:24:45 [facility] XLSAZZDHP101.411 13:24:45[facility] JIWCCT37 kg/m2 06/06/2025 13:24:45[facility] VCWKXNZLAAAVJF62.911 13:24:45 [facility] KOXEGAHF2064 13:24:45[facility] XDAUTPVRPRBMWQ62 06/06/2025 13:24:45[facility] HCSSYSTOLIC BLOOD EDQQIPYT64168 14:14:51[place] CBOCDIASTOLIC BLOOD UEDSDCPN9907/10/2025 14:14:51[facility] PULSE CPJJMAPC97 %05/30/2025 14:14:51[place] ODPTQDTO470 14:14:51 [facility] UDNXPRNHBWJFOQK22.111 14:14:51[place] XSPBLTSVQ3221 14:14:51[place] MDFRCRVUHVDTWHN3725 14:14:51[place] CBOCSYSTOLIC BLOOD XFYUSYCU77788/08/2025 11:02:12[place] CBOCDIASTOLIC BLOOD ZFTTRHRQ1162 11:02:12[place] [facility]OCPUL[facility] HGVCWGCO72 %04/27/2025 11:02:12[place] CBOCWEIGHT 219.510/02/2025 11:02:12[place] KBNGRAV70 kg/m210 11:02:12[facility] RNYLQPSJHMY29.110 11:02:12[place] UURFPTLXF0825 11:02:12 [facility] CBOCSYSTOLIC BLOOD HWDIPDRN60221 11:09:54[facility] DIASTOLIC BLOOD JARKIMBX5133/06/2025 11:09:54[facility] HCSPULSE LZXHOITO19 %02/23/2025 11:09:54[facility] RCQZKKOTH003.308 11:09:54[facility] WCSOOY64 kg/m208 11:09:54[facility] MPFAEMPOR5032 11:09:54[facility] GJHPKSPCOWNGDD92.508 11:09:54[facility] JNAWD67749 11:09:54[facility] FLSQYHXNIKEPOE3450 11:09:54 [facility] HCSSYSTOLIC BLOOD CUACIXTI87661/15/2025 14:16:04[facility] DIASTOLIC BLOOD LQYMFLGM4328/15/2025 14:16:04[place] CBOCPULSE UTMCUYYH09 % 02/01/2025 14:16:04[place] LPONTNJOV6835/15/2025 14:16:04[place] [facility] Encounters Combined list of: 1) Encounters from Department of Veterans Affairs facilities going backup to the last 18 months, not all VA inpatient encounters are included; 2) Encounters from the Department of Defense facilities going backup to 280 months. Location Location Details Encounter Type Encounter Number Reason For Visit Attending Provider ADM Date DC Date Status Disposition Source RADHA Hogan(IEP Hearing Conservat ion Exam) OUTPATIENT [id number] BRANDEN CAREY 09/29 Released w/o Limitations RADHA Hogan(IEP Hearing Conserv ation Exam) [facility] [place] OUTPATIENT [id number] ISIAH GUERRAOPHE Isaac Singer 09/30 Released w/o Limitations [facility] [place] [facility] [place]) OUTPATIENT [id number] ankle pain ESTER CHEUNG 10/06 Released with Work/Duty Limitations [facility] [place] [facility] [place] OUTPATIENT [id number] HEAD INJURY. MARCIE DANG 10/21 Sick at Home/Quarter s [facility] [place] [facility] [place] OUTPATIENT [id number] uri MARCIE DANG 10/23 Released with Work/Duty Limitations [facility] [place] [facility] [place] OUTPATIENT [id number] F/U HEAD INJURY. ORTIZ RUTHERFORD 10/25 Released w/o Limitations [facility] [place] [facility] [place] OUTPATIENT [id number] REORDER BRENDA DODD 12/08 Released w/o Limitations [facility] [place] [facility] [place] OUTPATIENT [id number] ankle and leg pain SARA DIEHL 12/18 Released with Work/Duty Limitations [facility] [place] [facility] [place] [id number] Diagnos is: ICD-10- CM F33.9 Major depress yashira disorde r, recurre nt, unspeci fied JACQUI,LAKIA OTHY A 01/[address] 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/ M [id number] Diagnos is: ICD-10- CM F32.9 Major depress yashira disorde r, single episode , unspeci fied JACQUI,LAKIA OTHY A 01/[address] [facility] 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/ M [id number] Diagnos is: ICD-10- CM F33.0 Major depress yashira disorde r, recurre nt, mild STICH,JOSHI NA M 01/13 [facility] IS [facility] OFFICE O/P EST LOW 20 MIN [id number] Diagnos is: ICD-10- CM F43.12 Post-tr aumatic stress disorde r, chronic PIENTKA,LA URA J 01/13 [facility] IS [facility] 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/ M [id number] Diagnos is: ICD-10- CM F32.9 Major depress yashira disorde r, single episode , unspeci fied JACQUI,LAKIA OTHY A 01/[address] [facility] 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/ M [id number] Diagnos is: ICD-10- CM F33.9 Major depress yashira disorde r, recurre nt, unspeci fied RENEE MOORE,AMA NDA G 01/14 [facility] IS [facility] 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/ M [id number] Diagnos is: ICD-10- CM F32.9 Major depress yashira disorde r, single episode , unspeci fied MARY HURTADO E 01/14 [facility] IS [facility] QNHP OL DIG ASSMT&MGMT 21+ [id number] Diagnos is: ICD-10- CM F43.12 Post-tr aumatic stress disorde r, chronic PAULMANN,R ACHEL M 01/[address] [facility] GROUP PSYCHOTHER APY [id number] Diagnos is: ICD-10- CM F33.9 Major depress yashira disorde r, recurre nt, unspeci fied JACQUI,LAKIA OTHY A 01/[address] [facility] 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/ M [id number] Diagnos is: ICD-10- CM F33.9 Major depress yashira disorde r, recurre nt, unspeci fied YAMILEX SMITH NDTaylor G 01/15 [facility] IS [facility] 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/ M [id number] Diagnos is: ICD-10- CM F32.9 Major depress yashira disorde r, single episode , unspeci fied STICH,JOSHI NA M 01/[address] [facility] 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/ M [id number] Diagnos is: ICD-10- CM F33.0 Major depress yashira disorde r, recurre nt, mild STICH,JOSHI NA M 01/[address] [facility] 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/ M [id number] Diagnos is: ICD-10- CM F32.9 Major depress yashira disorde r, single episode , unspeci fied JACQUI,LAKIA OTHY A 01/18 [facility] PSYCHOTHER APY [id number] Diagnos is: ICD-10- CM F43.12 Post-tr aumatic stress disorde r, chronic JACQUI,LAKIA OTHY A 01/[address] [facility] OFFICE O/P EST LOW 20 MIN [id number] Diagnos is: ICD-10- CM Z86.59 Persona l history of other mental and behavio ral disorde rs LOLA DRISCOLL J 01/18 [facility] [facility] 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/ M [id number] Diagnos is: ICD-10- CM F32.9 Major depress yashira disorde r, single episode , unspeci fied MARY HURTADO MARA E 01/19 [facility] 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/ M 54501-861 [id number] Diagnos is: ICD-10- CM F32.9 Major depress yashira disorde r, single episode , unspeci fied YAMILEX SMITH 01/19 [facility] 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/ M 99247-361 [id number] Diagnos is: ICD-10- CM F32.9 Major depress yashira disorde r, single episode , unspeci fied MARY HURTADO MARA E 01/19 [facility] 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/ M 57965-6.61 [id number] Diagnos is: ICD-10- CM F43.12 Post-tr aumatic stress disorde r, chronic MARY HURTADO MRAA E 01/20 [facility] 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/ M 38544-7.61 [id number] Diagnos is: ICD-10- CM F32.9 Major depress yashira disorde r, single episode , unspeci fied HOLLI HUFFMAN 01/20 [facility] 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/ M 29057-1.61 [id number] Diagnos is: ICD-10- CM F32.9 Major depress yashira disorde r, single episode , unspeci fied GENESISMAGD MARA E 01/20 [facility] 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/ M 12587-9.61 [id number] Diagnos is: ICD-10- CM F32.9 Major depress yashira disorde r, single episode , unspeci MARY Hartman E 01/22 [facility] 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/ M [id number] Diagnos is: ICD-10- CM F33.9 Major depress yashira disorde r, recurre nt, unspeci fied YAMILEX SMITH NDTaylor G 01/22 [facility] GROUP PSYCHOTHER APY [id number] Diagnos is: ICD-10- CM F43.12 Post-tr aumatic stress disorde r, chronic LAKIA OSMAN A 01/22 [facility] Outpatient Encounter [id number] 01/22 [facility] 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/ M [id number] Diagnos is: ICD-10- CM F32.9 Major depress yashira disorde r, single episode , unspeci MARY Hartman E 01/22 [facility] HEARING AID REPAIR/MOD IFYING [id number] Diagnos is: ICD-10- CM H90.3 Sensori neural hearing loss, bilater al LOR CHAMPAGNE K 01/23 [facility] CRISIS INTERVEN WA/ M [id number] Diagnos is: ICD-10- CM F43.12 Post-tr aumatic stress disorde r, chronic Inna LOPEZ M 01/[address] [facility] MTMS BY PHARM ADDL 15 MIN [id number] Diagnos is: ICD-10- CM F43.12 Post-tr aumatic stress disorde r, chronic DOROTHYSANTOS D 01/28 [facility] PSYTX W PT 45 MINUTES 60827-9.61 [id number] Diagnos is: ICD-10- CM F43.12 Post-tr aumatic stress disorde r, Inna Napoles 02/03 [facility] [place] [facility] PRO PHONE CALL 11-20 MIN [id number] [id number] Diagnos is: ICD-10- CM Z51.89 Encount er for other specifi ed afterca TERESA Stover 02/04 [place] [place] [facility] [place] [address]-9.61 [id number] Diagnos is: ICD-10- CM Z51.89 Encount er for other specifi ed afterca TERESA Stover 02/06 [place] [facility] [place] [facility] [place] [address]-9.61 [id number] Diagnos is: ICD-10- CM Z51.89 Encount er for other specifi ed afterca TERESA Stover 02/06 [place] [facility] PSYTX W PT 45 MINUTES 33378-0.61 [id number] Diagnos is: ICD-10- CM F43.12 Post-tr aumatic stress disorde r, Inna Napoles 02/10 [facility] [place] [facility] MTMS BY PHARM EST 15 MIN 35971-9.61 [id number] Diagnos is: ICD-10- CM F33.2 Major depress v disorde r, recurre nt severe w/o psych feature s DOROTHY,ANT OINETTE D 02/10 [place] [facility] 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/ M 16109-7.61 [id number] Diagnos is: ICD-10- CM F43.12 Post-tr aumatic stress disorde r, Inna Napoles 02/17 [facility] [place] [facility] MTMS BY PHARM EST 15 MIN [id number] [id number] Diagnos is: ICD-10- CM F33.2 Major depress v disorde r, recurre nt severe w/o psych feature s DOROTHY,ANT OINETTE D 02/18 [place] [facility] PSYTX W PT 45 MINUTES 69028-3.61 [id number] Diagnos is: ICD-10- CM F43.12 Post-tr aumatic stress disorde r, Inna Napoles M 02/24 [facility] PSYTX W PT 45 MINUTES 64821-0.61 [id number] Diagnos is: ICD-10- CM F43.12 Post-tr aumatic stress disorde r, Inna Napoles M 03/02 [facility] OFFICE O/P NEW HI 60 MIN 95323-7.61 [id number] Diagnos is: ICD-10- CM F32.9 Major depress yashira disorde r, single episode , unspeci fied ROHIT,THERON N L 03/03 [facility] 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/ M 24142-2.61 [id number] Diagnos is: ICD-10- CM F43.12 Post-tr aumatic stress disorde r, Inna Napoles M 03/10 [facility] PRO PHONE CALL 5-10 MIN 38883-2.61 [id number] Diagnos is: ICD-10- CM F43.10 Post-tr aumatic stress disorde r, unspeci fied JANELLE CARDOZA A 03/11 [facility] [place] [facility] Outpatient Encounter [id number] [id number] 03/15 [place] [facility] 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/ M 92845-3.61 [id number] Diagnos is: ICD-10- CM F43.12 Post-tr aumatic stress disorde r, chronic Inna LOPEZ 03/24 [facility] Outpatient Encounter [id number] [id number] HUGO CUETO 03/[address] [facility] PSYCH DIAGNOSTIC EVALUATION 95830-261 [id number] Diagnos is: ICD-10- CM F32.9 Major depress yashira disorde r, single episode , unspeci fied KUSH,HA HEW E 03/[address] [facility] Outpatient Encounter [id number] GHAZALAInna GALAN SHAYNAEM Loving 03/30 [facility] 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/ M 29780-4.61 [id number] Diagnos is: ICD-10- CM F43.12 Post-tr aumatic stress disorde r, Inna Napoles M 04/05 [facility] Outpatient Encounter [id number] [id number] 04/[address] [facility] 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/ M 36740-4.61 [id number] Diagnos is: ICD-10- CM F51.5 Nightma re disorde r JANELLE CARDOZA 04/09 [facility] PSYCL TST EVAL PHYS/QHP 1ST 45884-7.61 [id number] Diagnos is: ICD-10- CM F43.12 Post-tr aumatic stress disorde r, chronic CHARLENE CURRIET HEW E 04/09 [facility] PSYTX W PT 45 MINUTES 93879-6.61 [id number] Diagnos is: ICD-10- CM F43.12 Post-tr aumatic stress disorde r, Inna Napoles M 04/12 [facility] OFFICE O/P EST HI 40 MIN 62498-7.61 [id number] Diagnos is: ICD-10- CM F32.9 Major depress yashira disorde r, single episode , unspeci fied YOHANA GRACIA CARDENAS D 04/19 [facility] Outpatient Encounter 08581-8.61 [id number] 04/19 [facility] BREATHING CAPACITY TEST 95653-6.61 [id number] 10 Diagnos is: ICD-10- CM Z13.83 Encount er for screeni ng for respira tory disorde r NEC MELANI MUJICA A M 04/19 [facility] [place] [facility] BREATHING CAPACITY TEST 87740-9.61 [id number] Diagnos is: ICD-10- CM R06.00 Dyspnea , unspeci fied HENRY FERNANDEZ E 04/19 [place] [facility] 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/ M 09493-2.61 [id number] Diagnos is: ICD-10- CM F51.5 Nightma re disorde r JANELLE CARDOZA TEN A 04/20 [facility] [place] [facility] Outpatient Encounter [id number] [id number] 04/20 [place] [place] [facility] Outpatient Encounter 09549-4.61 [id number] 04/21 [place] [place] [facility] Outpatient Encounter [id number] [id number] 04/21 [place] [facility] Outpatient Encounter 99034-2.61 [id number] 04/26 [facility] 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/ M 16842-7.61 [id number] Diagnos is: ICD-10- CM F51.5 Nightma re disorde r JANELLE CARDOZA TEN A 04/27 [facility] OFFICE O/P EST HI 40 MIN 17485-6.61 [id number] Diagnos is: ICD-10- CM F32.9 Major depress yashira disorde r, single episode , unspeci THERON Barboza L 04/28 [facility] [place] [facility] Outpatient Encounter [id number] [id number] 04/30 [place] [facility] [place] [facility] Outpatient Encounter [id number] [id number] YOAN KESSLER M 04/30 [place] [place] [facility] Outpatient Encounter 64837-4.61 [id number] YOAN KESSLER M 04/30 [place] [facility] [place] [facility] Outpatient Encounter 07978-7.61 [id number] Inna HOPKINS L 05/05 [place] [facility] [place] [facility] Outpatient Encounter 03520-9.61 [id number] 05/06 [place] [facility] PSYTX W PT 45 MINUTES 73690-2.61 [id number] 01 Diagnos is: ICD-10- CM F43.12 Post-tr aumatic stress disorde r, chronic Inna LOPEZ M 05/11 [facility] 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/ M 93271-8.61 [id number] Diagnos is: ICD-10- CM F51.5 Nightma re disorde r JANELLE CARDOZA A 05/11 [facility] [place] [facility] Outpatient Encounter [id number] [id number] 05/14 [place] [place] [facility] Outpatient Encounter 50135-2.61 [id number] 05/17 [place] [facility] 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/ M 16701-0.61 [id number] 04 Diagnos is: ICD-10- CM F51.5 Nightma re disorde r JANELLE CARDOZA A 10/29 /2024 [facility] [place] [facility] OFFICE O/P EST MOD 30 MIN [id number] [id number] Diagnos is: ICD-10- CM R19.7 Diarrhe a, unspeci Taylor Rios R 05/18 [place] [facility] PSYTX W PT 45 MINUTES 44798-0.61 [id number] Diagnos is: ICD-10- CM F43.12 Post-tr aumatic stress disorde r, chronic Inna LOPEZ M 05/25 [facility] PSYTX W PT 45 MINUTES 41441-4.61 [id number] 69 Diagnos is: ICD-10- CM F43.12 Post-tr aumatic stress disorde r, Inna Napoles M 06/02 [facility] [place] [facility] Outpatient Encounter [id number] [id number] 06/03 [place] [facility] [place] [facility] Outpatient Encounter [id number] [id number] 06/07 [place] [facility] OFFICE O/P EST MOD 30 MIN 77561-5.61 [id number] Diagnos is: ICD-10- CM F43.12 Post-tr aumatic stress disorde r, chronic TANSEY,THERON N L 06/09 [facility] [place] [facility] Outpatient Encounter [id number] [id number] 06/11 [place] [facility] [place] [facility] Outpatient Encounter 47819-8.61 [id number] [place] 06/11 [place] [facility] [place] [facility] Outpatient Encounter [id number] [id number] SYSTEM,CIS -ARK 06/19 [place] [facility] [place] [facility] Outpatient Encounter 92706-3.61 [id number] SYSTEM,CIS -ARK 06/[address] [facility] [place] [facility] EMERGENCY DEPT VISIT [facility] 65420-6.61 [id number] Diagnos is: ICD-10- CM K85.90 Acute pancrea titis without necrosi s or infecti on, unsSE MEENA Bro 06/[address] [facility] [place] [facility] Inpatient Encounter [id number] [id number] Admit Reason: ACUTE PANCREA TITIS Carlos WELCH 06/20 Discharge from inpatient treatment to the [employer] (OPT-DE) rolls. [facility] [place] [facility] Inpatient Encounter [id number] [id number] 06/20 [facility] [place] [facility] Inpatient Encounter [id number] [id number] SYSTEM,CIS -ARK 06/[address] [facility] [place] [facility] Inpatient Encounter [id number] [id number] 06/[address] [facility] [place] [facility] Inpatient Encounter [id number] [id number] 06/[address] [facility] [place] [facility] Inpatient Encounter [id number] [id number] 06/[address] [facility] [place] [facility] STORE RECEIVER LEATHER POLISHER INDIVIDU 39370-9.61 [id number] Diagnos is: ICD-10- CM Z71.81 Spiritu al or religio us classification counselor LOLA Blanc 06/[address] [facility] [place] [facility] Inpatient Encounter [id number] [id number] 06/[address] [facility] [place] [facility] Inpatient Encounter [id number] [id number] 06/[address] [facility] [place] [facility] Inpatient Encounter [id number] [id number] 06/[address] [facility] [place] [facility] Inpatient Encounter [id number] [id number] 06/22 [place] [place] [facility] Inpatient Encounter [id number] [id number] SYSTEM,CIS -ARK 06/22 [place] [facility] [place] [facility] Inpatient Encounter [id number] [id number] 06/22 [place] [facility] [place] [facility] Inpatient Encounter [id number] [id number] 06/22 [place] [facility] [place] [facility] Inpatient Encounter 27633-5.61 [id number] 06/22 [place] [facility] [place] [facility] Inpatient Encounter [id number] [id number] SYSTEM,CIS -ARK 06/23 [place] [facility] [place] [facility] Inpatient Encounter [id number] [id number] 06/23 [place] [facility] [place] [facility] Inpatient Encounter [id number] [id number] 06/[address] [facility] [place] [facility] Inpatient Encounter [id number] [id number] 06/[address] [facility] [place] [facility] INPT/ED TELECONSUL T50 [id number] [id number] Diagnos is: ICD-10- CM I63.9 Cerebra l infarct ion, unspeci radhaed JEFFREY LALA 06/[address] [facility] [place] [facility] Inpatient Encounter [id number] [id number] 06/[address] [facility] [place] [facility] Inpatient Encounter [id number] [id number] 06/23 [place] [facility] [place] [facility] Inpatient Encounter [id number] [id number] 06/23 [place] [facility] [place] [facility] Inpatient Encounter [id number] [id number] 06/23 [place] [facility] [place] [facility] Inpatient Encounter [id number] [id number] 06/24 [place] [facility] [place] [facility] Inpatient Encounter [id number] [id number] SYSTEM,CIS -ARK 06/24 [place] [facility] [place] [facility] Inpatient Encounter [id number] [id number] 06/24 [place] [facility] [place] [facility] Inpatient Encounter [id number] [id number] 06/[address] [facility] IP/OBS CONSLTJ NEW/EST HI 80 [id number] [id number] Diagnos is: ICD-10- CM G57.12 Meralgi a paresth etica, left lower limb DENT,GUERREROYAMILEX CONTRERAS 06/[address] [facility] Inpatient Encounter [id number] [id number] 06/[address] [facility] PT EVAL MOD COMPLEX 30 MIN 83214-7.61 [id number] Diagnos is: ICD-10- CM R53.1 Weaknes s INTERRANTE ,CASSANDRA 06/[address] [facility] OT EVAL LOW COMPLEX 30 MIN [id number] [id number] Diagnos is: ICD-10- CM Z73.6 Limitat ion of activit ies due to disabil THERESA Crespo 06/[address] [facility] [place] [facility] En[facility] [id number] [id number] 06/24 [place] [facility] [place] [facility] Encounter [id number] [id number] SYSTEM,CIS -ARK 06/25 [place] [facility] [place] [facility] Encounter [id number] [id number] 06/25 [place] [facility] [place] [facility] SELF CARE MNGMENT TRAINING 76776-2.61 [id number] Diagnos is: ICD-10- CM R53.1 CASSANDRA Ashley 06/25 [place] [facility] [place] [facility] [facility]counter [id number] [id number] 06/25 [place] [facility] [place] [facility] Encounter [id number] [id number] 06/25 [place] [facility] [place] [facility] En[facility] [id number] [id number] 06/25 [place] [facility] [place] [facility] Encounter [id number] [id number] 06/26 [place] [facility] [place] [facility] Encounter [id number] [id number] SYSTEM,CIS -ARK 06/26 [place] [facility] [place] [facility] En[facility] [id number] [id number] 06/26 [place] [facility] [place] Encounter [id number] [id number] 06/26 [place] [facility] [place] Encounter [id number] [id number] 06/26 [place] [facility] [place] [facility] Encounter 90416-3.61 [id number] 06/27 [place] [facility] [place] [facility] En[facility] [id number] [id number] SYSTEM,CIS -ARK 06/27 [place] [facility] [place] [facility] Encounter [id number] [id number] 06/27 [place] [facility] [place] [facility] Encounter [id number] [id number] 06/27 [place] [facility] [place] [facility] Encounter [id number] [id number] 06/27 [place] [facility] [place] [facility] [facility] [id number] [id number] 06/27 [place] [facility] [place] [facility] [place] Encounter [id number] [id number] SYSTEM,CIS -ARK 06/28 [place] [facility] [place] En[facility] [id number] [id number] 06/28 [place] [facility] [place] En[facility] [id number] [id number] 06/28 [place] [facility] [place] Encounter [id number] [id number] 06/28 [place] [facility] [place] Encounter [id number] [id number] 06/28 [place] [facility] [place] [facility] Encounter [id number] [id number] 06/29 [place] [facility] [place] [facility] Encounter [id number] [id number] SYSTEM,CIS -ARK 06/29 [place] [facility] [place] [facility] THERAPEUTI C EXERCISES [id number] [id number] Diagnos is: ICD-10- CM R53.1 Weaknes s WINTHROP,R ACHEL T 06/29 [place] [facility] [place] [facility] Inpatient Encounter [id number] [id number] 06/29 [place] [facility] [place] [facility] Inpatient Encounter [id number] 06/29 [place] [facility] [place] [facility] Inpatient Encounter [id number] 06/29 [place] [facility] [place] [facility] Inpatient Encounter [id number] 06/29 [place] [facility] [place] [facility] Inpatient Encounter [id number] SYSTEM,CIS -ARK 06/30 [place] [facility] [place] [facility] Inpatient Encounter [id number] 06/30 [place] [facility] [place] [facility] SELF CARE MNGMENT TRAINING [id number] Diagnos is: ICD-10- CM Z73.6 Limitat ion of activit ies due to disabil RADHA Vale 06/30 [place] [facility] [place] [facility] Inpatient Encounter [id number] 06/30 [place] [facility] [place] [facility] THERAPEUTI C EXERCISES [id number] Diagnos is: ICD-10- CM R53.1 Weaknes s WINTHROP,R ACHEL T 06/30 [place] [facility] [place] [facility] Inpatient Encounter [id number] 06/30 [place] [facility] [place] [facility] Inpatient Encounter [id number] 06/30 [place] [facility] [place] [facility] Inpatient Encounter [id number] 07/01 [place] [facility] [place] [facility] Inpatient Encounter [id number] SYSTEM,CIS -ARK 07/01 [place] [facility] [place] [facility] Inpatient Encounter [id number] 07/01 [place] [facility] [place] [facility] Inpatient Encounter [id number] 07/01 [place] [facility] [place] [facility] Inpatient Encounter [id number] 07/01 [place] [facility] [place] [facility] HC PRO PHONE CALL 5-10 MIN [id number] Diagnos is: ICD-10- CM R10.9 Unspeci fied abdomin al pain HAECHERL,N ICOLE M 07/01 [place] [facility] [place] [facility] STORE RECEIVER LEATHER POLISHER INDIVIDU [id number] Diagnos is: ICD-10- CM Z71.81 Spiritu al or religio us classification counselor JULIOCESAR Lima 07/01 [place] [facility] [place] [facility] HC PRO PHONE CALL 5-10 MIN [id number] Diagnos is: ICD-10- CM R10.84 General ized abdomin al pain HAECHERL,N ICOLE M 07/01 [place] [facility] [place] [facility] Inpatient Encounter [id number] 07/01 [place] [facility] [place] [facility] Inpatient Encounter [id number] 07/01 [place] [facility] [place] [facility] Inpatient Encounter [id number] SYSTEM,CIS -ARK 07/02 [place] [facility] [place] [facility] Inpatient Encounter [id number] 07/02 [place] [facility] [place] [facility] FLUOROGUID E FOR SPINE INJECT [id number] Diagnos is: ICD-10- CM R10.10 Upper abdomin al pain, unspeci HUBER Weinberg 07/02 [place] [facility] [place] [facility] Inpatient Encounter [id number] 07/02 [place] [facility] [place] [facility] Inpatient Encounter [id number] 07/02 [place] [facility] [place] [facility] Inpatient [facility]counter [id number] [id number] 07/02 [place] [facility] [facility] [place] [facility] Inpatient Encounter [id number] 07/02 [place] [facility] [place] [facility] Outpatient Encounter [id number] 07/02 [place] [facility] [facility] [place] [facility] Inpatient Encounter [id number] 07/02 [place] [facility] [facility] [place] [facility] Outpatient Encounter [id number] 07/02 [place] [facility] [facility] [place] [facility] Outpatient Encounter [id number] GERALD MARCUM 07/05 [place] [facility] [place] [facility] PRO PHONE CALL 11-20 MIN [id number] [id number] Diagnos is: ICD-10- CM K86.1 Other chronic pancrea titis GERALD MARCUM 07/05 [facility] [place] [facility] Outpatient Encounter [id number] GERALD MARCUM 07/05 [place] [facility] [facility] [place] [facility] Outpatient Encounter [id number] 07/05 [place] [facility] [facility] [place] [facility] OFFICE O/P EST LOW 20 MIN [id number] [id number] Diagnos is: ICD-10- CM K85.80 Other acute pancrea titis without necrosi s or infecti on [place],Taylor LAUREEN R 07/06 [place] [facility] [place] [facility] OFFICE O/P EST MOD 30 MIN [id number] [id number] Diagnos is: ICD-10- CM K86.1 Other chronic pancrea titis Inna BOUDREAUX 07/07 [place] [facility] [place] [facility] PSYTX W PT 45 MINUTES 34243-3.61 [id number] 22 Diagnos is: ICD-10- CM F43.12 Post-tr aumatic stress disorde r, chronic Inna LOPEZ 07/07 [facility] [place] [facility] Outpatient Encounter [id number] Bhavya GARAY 07/08 [place] [facility] [place] [facility] Outpatient Encounter [id number] [id number] 07/09 [place] [facility] [place] [facility] OFFICE O/P EST HI 40 MIN [id number] [id number] 91 Diagnos is: ICD-10- CM F43.12 Post-tr aumatic stress disorde r, chronic THERON BEE 07/12 [facility] [place] [facility] Outpatient Encounter [id number] 07/15 [place] [facility] [place] [facility] Outpatient Encounter [id number] SYSTEM,[facility] -[facility] 07/[address] [facility] [place] [facility] Inpatient Encounter [id number] Inder MALDONADO 07/15 [place] [facility] [place] [facility] Inpatient Encounter [id number] [id number] 07/15 [place] [facility] [place] [facility] Inpatient Encounter [id number] [id number] 07/15 [place] [facility] [place] [facility] Inpatient Encounter [id number] [id number] Admit Reason: PANCREA DARRIUS TEAM,MED [facility] 07/15 Discharge from inpatient treatment to the Service Connected (OPT-DE) rolls. [facility] [place] [facility] Inpatient Encounter [id number] [id number] 07/[address] [facility] [place] [facility] Inpatient Encounter [id number] [id number] 07/[address] [facility] [place] [facility] Inpatient Encounter [id number] 07/[address] [facility] [place] [facility] Inpatient Encounter [id number] [id number] 07/[address] [facility] [place] [facility] Inpatient Encounter [id number] [id number] SYSTEM,[facility] -[facility] 07/[address] [facility] [place] [facility] Inpatient Encounter [id number] 07/[address] [facility] [place] [facility] STORE RECEIVER LEATHER POLISHER INDIVIDU [id number] [id number] Diagnos is: ICD-10- CM Z71.81 Spiritu al or religio us classification counselor Bhavya Bey 07/16 [place] [facility] [place] En[facility] [id number] [id number] 07/16 [place] [facility] En[facility] [id number] [id number] 07/16 [place] [facility] Encounter [id number] [id number] 07/16 [place] [facility] Encounter [id number] [id number] SYSTEM,[facility] -[facility] 07/17 [place] [facility] [place] Encounter [id number] [id number] 07/17 [place] [facility] Encounter [id number] [id number] 07/17 [place] [facility] [place] Encounter [id number] [id number] 07/17 [place] [facility] [place] Encounter [id number] [id number] SYSTEM,[facility] -[facility] 07/18 [place] [facility] [place] Encounter [id number] [id number] 07/18 [place] [facility] [place] Encounter [id number] [id number] 07/18 [place] [facility] [place] Encounter [id number] [id number] 07/18 [place] [facility] [place] Encounter [id number] [id number] SYSTEM,[facility] -[facility] 07/19 [place] [facility] [place] Encounter [id number] [id number] 07/19 [place] [facility] [place] [facility] Inpatient Encounter [id number] 07/19 [place] [facility] [place] [facility] QNHP OL DIG ASSMT&MGMT 5-10 [id number] [id number] Diagnos is: ICD-10- CM E63.9 Nutriti onal deficie ncy, unspeci fied DEAN OROSCO 07/19 [place] [facility] [place] [facility] Inpatient Encounter [id number] [id number] 07/19 [place] [facility] [place] [facility] Inpatient Encounter [id number] 07/20 [place] [facility] [place] [facility] Inpatient Encounter [id number] [id number] SYSTEM,[facility] 07/20 [place] [facility] [place] [facility] Inpatient Encounter [id number] 07/20 [place] [facility] [place] [facility] QNHP OL DIG ASSMT&MGMT 5-10 [id number] [id number] Diagnos is: ICD-10- CM R10.9 Unspeci fied abdomin al pain DEAN OROSCO 07/20 [place] [facility] [place] [facility] Inpatient Encounter [id number] [id number] 07/20 [place] [facility] [place] [facility] Inpatient Encounter [id number] [id number] 07/20 [place] [facility] [place] [facility] Inpatient Encounter [id number] 07/20 [place] [facility] [place] [facility] Outpatient Encounter [id number] [id number] 07/22 [place] [facility] [place] [facility] PSYTX W PT 45 MINUTES 85479-4.61 [id number] Diagnos is: ICD-10- CM F43.12 Post-tr aumatic stress disorde r, Inna Napoles M 07/22 [facility] [place] [facility] PH1 ASSMT&MGMT NQHP 11-20 [id number] [id number] 73 Diagnos is: ICD-10- CM K86.1 Other chronic pancrea darrius GERALD MARCUM 07/22 [facility] [place] [facility] Outpatient Encounter [id number] [id number] 07/22 [place] [facility] [place] [facility] Outpatient Encounter [id number] [id number] 07/22 [place] [facility] [place] [facility] Outpatient Encounter [id number] 07/26 [place] [facility] [place] [facility] ACUP / WO ESTIM 1ST 15 MIN [id number] [id number] Diagnos is: ICD-10- CM G89.29 Other chronic pain MARLO ESCAMILLA 07/26 [place] [facility] [place] [facility] Outpatient Encounter [id number] 07/29 [place] [facility] [place] [facility] Outpatient Encounter [id number] 07/30 [place] [facility] [place] [facility] Outpatient Encounter [id number] Inder MALDONADO 08/02 [place] [facility] [place] [facility] MED NUTRITION INDIV SUBSEQ [id number] [id number] Diagnos is: ICD-10- CM K86.1 Other chronic pancrea darrius GABRIELA ESPINOSA 08/03 [facility] [place] [facility] Outpatient Encounter [id number] 08/04 [place] [facility] [place] [facility] EMERGENCY DEPT VISIT LOW MDM [id number] [id number] Diagnos is: ICD-10- CM R10.13 Epigast milan pain Isaac HOWARD 08/[address] [facility] [place] [facility] Outpatient Encounter [id number] [id number] SYSTEM,[facility]IS -[facility] 08/04 [place] [facility] [place] [facility] Inpatient Encounter [id number] [id number] Admit Reason: ACUTE ON CHRONIC PANCREA CHARLES WILKES 08/04 Regular discharge from inpatient treatment. [facility] [place] [facility] Inpatient Encounter [id number] [id number] GABRIELA JARQUIN JR 08/04 [place] [facility] [place] [facility] Inpatient Encounter [id number] [id number] GABRIELA JARQUIN JR 08/[address] [facility] [place] [facility] Inpatient Encounter [id number] [id number] BOZENA PATEL 08/[address] [facility] [place] [facility] Inpatient Encounter [id number] [id number] SYSTEM,CIS -ARK 08/04 [place] [facility] [place] [facility] Inpatient Encounter [id number] [id number] ANKUR BROOKE 08/[address] [facility] [place] [facility] Inpatient Encounter [id number] [id number] SYSTEM,CIS -ARK 08/[address] [facility] [place] [facility] Inpatient Encounter [id number] [id number] KEVIN CANTU 08/05 [place] [facility] [place] [facility] Inpatient Encounter [id number] 08/05 [place] [facility] [place] [facility] Inpatient Encounter [id number] [id number] GABRIELA JARQUIN JR 08/05 [place] [facility] [place] [facility] Outpatient Encounter [id number] [id number] 08/10 [place] [facility] [place] [facility] ACUP 1/> WO ESTIM 1ST 15 MIN [id number] [id number] Diagnos is: ICD-10- CM G89.29 Other chronic pain MARLO ESCAMILLA A 08/11 [place] [facility] [place] [facility] MED NUTRITION INDIV SUBSEQ 16000-6.61 [id number] Diagnos is: ICD-10- CM K86.1 Other chronic pancrea raoloren GABRIELA ESPINOSA N 08/12 [facility] [place] [facility] Outpatient Encounter [id number] [id number] GABRIELA ESPINOSA N 08/12 [place] [facility] [place] [facility] Outpatient Encounter [id number] [id number] GABRIELA ESPINOSAUELINE N 08/12 [place] [facility] [place] [facility] Outpatient Encounter [id number] GERALD MARCUM 08/13 [place] [facility] [place] [facility] Outpatient Encounter [id number] [id number] GERALD MARCUM 08/13 [place] [facility] [place] [facility] Outpatient Encounter [id number] [id number] GERALD MARCUM 08/16 [place] [facility] [place] [facility] Outpatient Encounter [id number] [id number] GERALD MARCUM 08/16 [place] [facility] [place] [facility] Outpatient Encounter [id number] [id number] 08/17 [place] [facility] [place] [facility] PSYTX W PT 45 MINUTES [id number] [id number] 45 Diagnos is: ICD-10- CM F43.12 Post-tr aumatic stress disorde rmaggie J ESSICA M 08/18 [facility] [place] [facility] OFFICE O/P EST MOD 30 MIN 25552-3.61 [id number] 45 Diagnos is: ICD-10- CM F41.1 General ized anxiety disorde r YOHANA GRACIA 08/18 [facility] [place] [facility] Outpatient Encounter [id number] 08/20 [place] [facility] [place] [facility] Outpatient Encounter [id number] 08/23 [place] [facility] [place] [facility] ACUP WO ESTIM 1ST 15 MIN [id number] [id number] Diagnos is: ICD-10- CM G89.29 Other chronic pain MARLO ESCAMILLA 08/24 [place] [facility] [place] [facility] MED NUTRITION INDIV SUBSEQ [id number] [id number] Diagnos is: ICD-10- CM K86.1 Other chronic pancrea GABRIELA [place] 08/26 [facility] [place] [facility] PSYTX W PT 45 MINUTES 72436-5.61 [id number] 98 Diagnos is: ICD-10- CM F43.12 Post-tr aumatic stress disorde r, Inna Napoles M 09/02 [facility] [place] [facility] Outpatient Encounter [id number] 09/08 [place] [facility] [place] [facility] Outpatient Encounter [id number] 09/13 [place] [facility] [place] [facility] ACUP WO ESTIM 1ST 15 MIN [id number] [id number] Diagnos is: ICD-10- CM G89.29 Other chronic pain MARLO ESCAMILLA A 09/15 [place] [facility] [place] [facility] PSYTX W PT 45 MINUTES [id number] [id number] 25 Diagnos is: ICD-10- CM F43.12 Post-tr aumatic stress disorde r, Inna Napoles 09/15 [facility] [place] [facility] Outpatient Encounter [id number] [id number] TRIXIEGERALD Inder 09/16 [place] [facility] [place] [facility] Outpatient Encounter [id number] [id number] TRIXIEGERALD CHANTALE Inder 09/16 [place] [facility] [place] [facility] PSYTX W PT 45 MINUTES 19071-8.61 [id number] 16 Diagnos is: ICD-10- CM F43.12 Post-tr aumatic stress disorde r, Inna Napoles 09/29 [facility] [place] [facility] Outpatient Encounter [id number] [id number] 09/30 [place] [facility] [place] [facility] MED NUTRITION INDIV SUBSEQ 08445-9.61 [id number] Diagnos is: ICD-10- CM K86.1 Other chronic pancrea GABRIELA [place] N 10/05 [facility] [place] [facility] ACUP / WO ESTIM 1ST 15 MIN [id number] [id number] Diagnos is: ICD-10- CM G89.29 Other chronic pain MARLO ESCAMILLA 10/15 [place] [facility] [place] [facility] PSYTX W PT 45 MINUTES 34307-5.61 [id number] 08 Diagnos is: ICD-10- CM F43.12 Post-tr aumatic stress disorde r, Inna Napoles 10/18 [facility] [place] [facility] OFFICE O/P NEW HI 60 MIN [id number] [id number] Diagnos is: ICD-10- CM R53.82 Chronic fatigue , unspeci fied CK PEREZ 10/19 [place] [facility] [place] [facility] Outpatient Encounter [id number] 10/19 [place] [facility] [place] [facility] Outpatient Encounter [id number] [id number] Diagnos is: ICD-10- CM G47.9 Sleep disorde r, unspeci NIMA Staples 10/[address] [facility] [place] [facility] OFFICE O/P EST MOD 30 MIN 52612-5.61 [id number] 30 Diagnos is: ICD-10- CM F32.9 Major depress yashira disorde r, single episode , unspeci THERON Barboza N L 10/25 [facility] [place] [facility] PSYTX W PT 45 MINUTES 04917-9.61 [id number] 75 Diagnos is: ICD-10- CM F43.12 Post-tr aumatic stress disorde r, Inna Napoles 11/03 [facility] [place] [facility] Outpatient Encounter [id number] [id number] 11/12 [place] [facility] [place] [facility] Outpatient Encounter [id number] [id number] 57 11/17 [facility] [place] [facility] Outpatient Encounter [id number] [id number] 11/18 [place] [facility] [place] [facility] PSYTX W PT 45 MINUTES 70929-0.61 [id number].[id number] 76 Diagnos is: ICD-10- CM F43.12 Post-tr aumatic stress disorde r, Inna Napoles 11/25 [facility] [place] [facility] PSYTX W PT 45 MINUTES 27011-8.61 [id number].[id number] 91 Diagnos is: ICD-10- CM F43.12 Post-tr aumatic stress disorde r, Inna Napoles 12/01 [facility] [place] [facility] PSYCL/[place] [id number] [id number] Diagnos is: ICD-10- CM F43.12 Post-tr aumatic stress disorde r, chronic CZIPRHARPREET Boyd ARINA L 12/08 [facility] PSYTX W PT 45 MINUTES 54933-5.61 [id number] 86 Diagnos is: ICD-10- CM F43.12 Post-tr aumatic stress disorde r, chronic Inna LOPEZ M 12/15 [facility] Outpatient Encounter [id number] [id number] 12/22 [facility] OFFICE O/P EST HI 40 MIN 93402-7.61 [id number] 09 Diagnos is: ICD-10- CM F32.9 Major depress yashira disorde r, single episode , unspeci fiTHERON Villarreal N L 12/22 [facility] Outpatient Encounter [id number] [id number] 12/[address] 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 28100-7.61 [id number] Diagnos is: ICD-10- CM G47.9 Sleep disorde r, unspeci fiFELIPE Richardson T 12/28 [facility] OFF/OP CONSLTJ NEW/EST HI 55 42630-7.61 [id number] 41 Diagnos is: ICD-10- CM R41.89 Oth symptom s and signs w cogniti ve functio ns and awarene ss Mindi CONROY S 12/29 [facility] Outpatient Encounter [id number] [id number] 01/04 [place] [facility] [place] [facility] Outpatient Encounter [id number] [id number] SHADY SMILEY 01/07 [place] [facility] [place] [facility] Outpatient Encounter [id number] SYEDA HALL 01/07 [place] [facility] [place] [facility] Outpatient Encounter [id number] SYEDA HALL 01/07 [place] [facility] [place] [facility] Outpatient Encounter [id number] 01/10 [place] [facility] [place] [facility] Outpatient Encounter [id number] GERALD MARCUM 01/11 [place] [facility] [place] [facility] Outpatient Encounter [id number] GERALD MARCUM 01/11 [place] [facility] [place] [facility] PSYTX W PT 45 MINUTES 75962-4.61 [id number] 67 Diagnos is: ICD-10- CM F43.12 Post-tr aumatic stress disorde r, Inna Napoles 01/17 [facility] [place] [facility] [employer]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 30329-5.61 [id number] Diagnos is: ICD-10- CM R06.83 Snoring RAQUEL PABLOCARLOSA 01/17 [place] [facility] [place] [facility] Outpatient Encounter [id number] [id number] 01/19 [place] [facility] [place] [facility] Outpatient Encounter [id number] [id number] 01/24 [place] [facility] [place] [facility] Outpatient Encounter [id number] [id number] 01/27 [place] [facility] PSY[facility] W PT 45 MINUTES [id number] Diagnos is: ICD-10- CM F43.12 Post-tr aumatic stress disorde r, Inna Napoles 02/01 [facility] [place] OFF/OP EST MAY X REQ PHY/QHP [id number] [id number] Diagnos is: ICD-10- CM R30.0 Dysuria SYEDA HALL J 02/01 [facility] Outpatient Encounter [id number] SYEDA HALL J 02/04 [place] [facility] Outpatient Encounter [id number] SYEDA HALL J 02/04 [place] [facility] ORAL FUNCTION THERAPY [id number] Diagnos is: ICD-10- CM F41.1 General ized anxiety disorde r RACHANA KULKARNI P 02/[address] [facility] PH1 ASSMT&MGMT NQHP 11-20 [id number] Diagnos is: ICD-10- CM G47.30 Sleep apnea, unspeci fied DILLE,PATRICK ICA S 02/[address] [facility] Outpatient Encounter [id number] 02/[address] [facility] OFF/OP CONSLTJ NEW/EST SF 20 [id number] Diagnos is: ICD-10- CM E66.09 Other obesity due to excess calorie Lucrecia Chun 02/[address] [facility] [place] [facility] [facility] PSYTX W PT 45 MINUTES [id number] [id number] Diagnos is: ICD-10- CM F43.12 Post-tr aumatic stress disorde maggie drew J ESSICA M 02/23 [facility] NRPSYC TST EVAL PHYS/QHP 1ST [id number] Diagnos is: ICD-10- CM Z71.1 Person w feared hlth complai nt in whom no diagnos is is made ARLENHARPREET ARINA Loving 02/24 [place] [facility] [place] [facility] Outpatient Encounter [id number] 02/25 [place] [facility] [place] [facility] Outpatient Encounter [id number] BELKYS MOBLEY 03/01 [place] [facility] [place] [facility] Outpatient Encounter [id number] 03/04 [place] [facility] [place] [facility] Outpatient Encounter [id number] 03/07 [place] [facility] [place] [facility] Outpatient Encounter [id number] 03/08 [place] [facility] [place] [facility] Outpatient Encounter [id number] 03/[address] [facility] [place] [facility] [facility] PSYTX W PT 45 MINUTES [id number] Diagnos is: ICD-10- CM F43.12 Post-tr aumatic stress disorde r, Inna Napoles M 03/23 [facility] [place] [facility] Outpatient Encounter [id number] 03/24 [place] [facility] [place] [facility] Outpatient Encounter [id number] Diagnos is: ICD-10- CM A69.20 Lyme disease , unspeci MARZENA Granados A 03/[address] [facility] [place] [facility] Outpatient Encounter [id number] GÓMEZ ANDREW 03/[address] [facility] [place] [facility] Outpatient Encounter [id number] 03/30 [facility] [place] [facility] OFFICE O/P EST HI 40 MIN [id number] [id number] Diagnos is: ICD-10- CM A69.20 Lyme disease , unspeci fied CHANTELLAURELMindi FIGUEROA S 04/27 [facility] [place] [facility] PSYTX W PT 45 MINUTES [id number] [id number] Diagnos is: ICD-10- CM F43.12 Post-tr aumatic stress disorde r, chronic [place],J GHASSANICA M 04/27 [facility] [place] [facility] [facility] En[facility] [id number] 05/04 [place] [facility] [place] [facility] Outpatient Encounter [id number] 05/04 [place] [facility] [place] [facility] [facility] OFFICE O/P EST HI 40 MIN [id number] Diagnos is: ICD-10- CM Z00.00 Encntr for general adult medical exam w/o abnorma l finding s YOHANA GRACIA 05/04 [facility] [place] [facility] Outpatient Encounter [id number] 05/12 [place] [facility] [place] [facility] Outpatient Encounter [id number] MICKEY WIGGINS S 05/13 [place] [facility] [place] [facility] Outpatient Encounter [id number] 05/15 [place] [facility] [place] [facility] Outpatient Encounter [id number] 05/17 [place] [facility] [place] [facility] Outpatient Encounter [id number] 05/17 [place] [facility] [place] [facility] Outpatient Encounter [id number] GERALD MARCUM 05/17 [place] [facility] [place] [facility] [facility] OFFICE O/P EST MOD 30 MIN [id number] Diagnos is: ICD-10- CM Z12.4 Encount er for screeni ng for maligna nt neoplas m of cervix GRACIAYOHANA THERESA Wright 05/30 ESSIE NOEL [facility] HEARING AID REPAIR/MOD IFYING [id number] Diagnos is: ICD-10- CM Z46.1 Encount er for fitting and adjustm ent of hearing aid LOR CHAMPAGNE 06/01 [facility] [place] [facility] Outpatient Encounter [id number] 06/02 [facility] OFFICE O/P EST MOD 30 MIN [id number] Diagnos is: ICD-10- CM K86.1 Other chronic pancrea AYALA Maria 06/06 [facility] Outpatient Encounter [id number] 06/08 [facility] Outpatient Encounter [id number] LUZMAJOANNA ROSALIA Singer 06/08 [facility] [place] [facility] Outpatient Encounter [id number] JACLYN DONALDSON 06/08 [facility] Outpatient Encounter [id number] Diagnos is: ICD-10- CM Z12.11 Encount er for screeni ng for maligna nt neoplas m of colon ALISIA ADAMS 06/10 [facility] [place] [facility] Outpatient Encounter [id number] TERESA DELVALLE 06/17 [facility] [place] [facility] Outpatient Encounter [id number] 06/22 [facility] [place] [facility] Outpatient Encounter [id number] 06/27 [facility] Procedures Combined list of: 1) Procedures from [facility] Affairs facilities going back up to thelast 18 months, not all [place] non-surgical procedures are included; 2) All procedures from the Department of Defense facilities. Procedure Procedure Type Code Date Perfomer Comments Sourc e Physician Supervised Ordering / Handling / Fitting Patient Devices Physician Supervised Ordering / Handling / Fitting Patient Devices 13275 7 SARA DIEHL Patient Training And Self-Care Skills Patient Training And Self-Care Skills 78745 7 SARA DIEHL Repair And Refitting Gla es (Not For Aphakia) Repair And Refitting Glasses (Not For Aphakia) 78941 7 FREDERICK MENDOZA Spectacles Services Fitting Monofocal Except For Aphakia Spectacles Services Fitting Monofocal Except For Aphakia 45188 7 FREDERICK MENDOZA Patient Training And Self-Care Skills Patient Training And Self-Care Skills 63434 7 ORTIZ RUTHERFORD Phys Therapy Education Self Care Training - Per 15 Minutes Phys Therapy Education Self Care Training - Per 15 Minutes 07969 7 MARCIE DANG Patient Training And Self-Care Skills Patient Training And Self-Care Skills 39421 7 MARCIE DANG Physician Supervised Ordering / Handling / Fitting Patient Devices Physician Supervised Ordering / Handling / Fitting Patient Devices 00669 7 ESTER CHEUNG Patient Training And Self-Care Skills Patient Training And Self-Care Skills 92990 7 ESTER CHEUNG Spectacles Services Fitting Monofocal Except For Aphakia Spectacles Services Fitting Monofocal Except For Aphakia 03970 7 SUZIE GUERRA Screening Test Of Visual Acuity, Quantitative, Bilateral Screening Test Of Visual Acuity, Quantitative, Bilateral 49730 7 SUZIE GUERRA Determination Of Refractive State Determination Of Refractive State 27177 7 SUZIE GUERRA Ear mold/insert, not disposable, any type Ear mold/insert, not disposable, any type V5264 7 BRANDEN CAREY Audiometry Group Testing Audiometry Group Testing 82239 7 BRANDEN CAREY Physician Supervised Group Educational [...] Comment Sourc e Tobacco smoking status NHIS PREVIOUS SMOKER 06/08/2025 [facility] History of tobacco use [facility]-TO[facility]CO USE FO RMER CIGARETTES 05/04/2025 [place] [facility] [facility] History of tobacco use VA-TOBACCO QUIT 5 TO < 15 YRS 01/05/2024 [facility] History of tobacco use [facility]AC[facility] FORMER USER 03/27/2023 [place] [facility] This section is an empty social history section. DoD Plan of Care List of future care activities from Department of 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 Additional future care activities may be listed in the Assessment and Plan section. Date/Time Care Activity Care Activity Detail Facili ty 07/26/2025 AMBULATORY - REHAB MEDICINE AMBULATORY - [place] MEDIC[facility] [place] [facility] Advance Directives List of completed, amended, or rescinded Advance Directives on record at Department of 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 An actual copy of the Directive is not included. Date Advance Directive Provider Source 01/05/2024 ADVANCE DIRECTIVE DISCUSSION SHAHID [facility]
--- OUTSIDE RECORDS SUMMARY | 2025-07-15 01:58 | XMS_ITS | Continuity of Care Document ---
Author Name [facility] Organization [facility] Care Team Providers Care [employer] Supervisor Name Role Phone [facility] Unavailable Unavailable Problems Combined list of problems from 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 It does not include entries that were removed or entered in error. Problem Status Onset Date Problem Type Date of Resolution Comments Source closed stress fracture of tibia Active Condition Stretches ordered and demonstrated. DoD ankle joint pain Inactive Condition Power Steps issued. 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 Next due in 5yrs. [facility] HCSChronic fatigue syndromeActiveConditionMINNEAST. [facility] Chronic idiopathic urticariaActiveCondition* Mar 27, 2023 Entered By: EMIR GRACIA Comment: with physical component , chronic illness- [facility] - dr. 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 * Mar 27, 2023 Entered By: EMIR GRACIA Comment: Grandmother- utrine cancer, mother and father- CAD, DM2 , siblings- strong autoimmune [facility]OCGeneralized anxiety disorderActiveConditionSHAKOPEE CBOCHistory of appendectomyActiveCondition* Jul 20, 2024 Entered By: JO-ANN CHRISTENSEN Comment: Mar 2005, [facility] HCSHistory of cholecystectomyActiveCondition* Jul 20, 2024 Entered By: JO-ANN CHRISTENSEN Comment: Oct 2005, [facility] HCSHistory of post-traumatic stress disorderActiveCondition* Mar 27, 2023 Entered By: EMIR GRACIA Comment: MH team at [facility] CBOCHyperlipidemiaActiveCondition* Mar 27, 2023 Entered By: EMIR GRACIA Comment: On statin [facility]OCMajor depressive disorderActiveConditionSHAKOPEE CBOCNo significant change since previous mammogramActiveCondition* Apr 02, 2023 Entered By: EMIR GRACIA Comment: recent mammo on 04/01/23-ACR BI-RADS Category 1 - Ne gative. [facility]OCPosttraumatic stress disorderActiveConditionMINNEAPOL[facility] Diagnosis: ICD-10-CM [...] complaint in whom no diagnosis is madeActiveDiagnosisMINNEAPOLIS [place] HCSDiagnosis: ICD-10-CM E66.09 Other obesity due to excess caloriesActiveDiagnosisMINNEAPOLIS [place] HCSDiagnosis: ICD-10-CM G47.30 Sleep apnea, unspecifiedActiveDiagnosisMINNEAPOLSUMMIT [facility] Diagnosis: ICD-10-CM F41.1 Generalized anxiety disorderActiveDiagnosis [facility] HCSDiagnosis: ICD-10-CM R30.0 DysuriaActiveDiagnosisSHAKOPEE CBOC Diagnosis: ICD-10-CM R06.83 SnoringActiveDiagnosisUNIVERSITY OF MICHIG[facility]ITALNEAPOLIS [place] HCSDiagnosis: ICD-10-CM R41.89 Oth symptoms and signs w cognitive functions and awareness ActiveDiagnosisSHAKOPEE CBOCDiagnosis: ICD-10-CM G47.9 Sleep disorder, unspecifiedActiveDiagnosisMINNEAPOLIS [place] HCSDiagnosis: ICD-10-CM F32.9 Major depressive disorder, single episode, unspecifiedActiveDiagnosisSHAKOPEE [facility]OC Diagnosis: ICD-10-CM R53.82 Chronic fatigue, unspecifiedActiveDiagnosis [facility] HCSDiagnosis: ICD-10-CM G89.29 Other chronic painActiveDiagnosis [facility] HCSAdmit Reason: ACUTE ON CHRONIC PANCREATITISActiveDiagnosis [facility] HCSDiagnosis: ICD-10-CM R10.13 Epigastric painActiveDiagnosis [facility] HCSDiagnosis: ICD-10-CM R10.9 Unspecified abdominal painActive DiagnosisMINMULTICARE [facility] HCSDiagnosis: ICD-10-CM E63.9 Nutritional deficiency, unspecifiedActiveDiagnosisMINNEAPOLIS [place] HCSDiagnosis: ICD-10-CM Z71.81 Spiritual or zoroastrianism counselingActiveDiagnosisMINNEAGEISINGER ST[facility] HCSAdmit Reason: PANCREATITISActiveDiagnosisMINNEAPOLSUMMIT [facility]IFIC [facility] HCSDiagnosis: ICD-10-CM K85.80 Other acute pancreatitis without necrosis or infectionActiveDiagnosisMINNEAPOLSUMMIT [facility] HCSDiagnosis: ICD-10-CM R10.10 Upper abdominal pain, unspecifiedActiveDiagnosis [facility] HCSDiagnosis: ICD-10-CM R10.84 Generalized abdominal painActive DiagnosisMINNEAPOLIS [place] HCSDiagnosis: ICD-10-CM R53.1 WeaknessActiveDiagnosis [facility] HCSDiagnosis: ICD-10-CM Z73.6 Limitation of activities due to disabilityActiveDiagnosisMINNEAPOLIS [place] HCSDiagnosis: ICD-10-CM G57.12 Meralgia paresthetica, left lower limbActiveDiagnosisMINNEAPOLIS [place] HCSDiagnosis: ICD-10-CM I63.9 Cerebral infarction, unspecifiedActiveDiagnosisMINNEAPOLIS [place] HCSAdmit Reason: ACUTE PANCREATITISActiveDiagnosisMINNEAPOLIS [place] HCSDiagnosis: ICD-10-CM K85.90 Acute pancreatitis without necrosis or infection, unspActive DiagnosisMINNEAPOLIS [place] HCSDiagnosis: ICD-10-CM R19.7 Diarrhea, unspecified ActiveDiagnosisMINNEAPOLIS [place] HCSDiagnosis: ICD-10-CM F51.5 Nightmare disorder ActiveDiagnosisTLANCA[facility] CBOCDiagnosis: ICD-10-CM R06.00 Dyspnea, unspecified ActiveDiagnosisMINNEAPOLIS [place] HCSDiagnosis: ICD-10-CM Z13.83 Encounter for screening for respiratory disorder NECActiveDiagnosisSHAKOPE CBOCDiagnosis: ICD-10-CM F43.10 Post-traumatic stress disorder, unspecifiedActiveDiagnosisTWIN [place] CBOCDiagnosis: ICD-10-CM F33.2 Major depressv disorder, 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 psych featuresActiveDiagnosisMINNEAPOLIS [place] HCSDiagnosis: ICD-10-CM Z51.89 Encounter for other specified aftercareActiveDiagnosisMINNEAPOLIS [place] HCS Diagnosis: ICD-10-CM H90.3 Sensorineural hearing loss, bilateralActiveDiagnosis [facility] HCSDiagnosis: ICD-10-CM F33.9 Major depressive disorder, recurrent, unspecifiedActiveDiagnosisMINNEAPOLIS [place] HCSDiagnosis: ICD-10-CM Z86.59 Personal history of other mental and behavioral disordersActiveDiagnosis [facility] HCSDiagnosis: ICD-10-CM F33.0 Major depressive disorder, recurrent, mildActiveDiagnosisMINNEAST. [facility] Medications Combined list of outpatient medications [...] ATION) DISCONT INUED BY PROVIDE R 04/20/2025 [id number] PRESTON GRACIA 2023 2 [facility] AMYLASE 120,000UNIT /LIPASE 24,000UNIT/ PROTEASE 76,000UNIT CAP,EC TAKE 1 CAPSULE BY MOUTH THREE TIMES A DAY WITH MEALS FOR PANCREAS : SWALLOW WHOLE AND FOLLOW WITH WATER OR JUICE TO ENSURE NO MEDICATI ON REMAINS IN MOUTH. HOLD IF NOT EATING. ORAL 05/19/2025 [id number] 5 LAINA KENDALL R 2023 100 [facility] AMYLASE 60,000UNIT/ LIPASE 12,000UNIT/ PROTEASE 38,000UNIT CAP,EC TAKE 1 CAPSULE BY MOUTH DIRECTED WITH SNACKS FOR PANCREAS : SWALLOW WHOLE AND FOLLOW WITH WATER OR JUICE TO ENSURE NO MEDICATI ON REMAINS IN MOUTH. ORAL 05/19/2025 [id number] 5 LAINA KENDALL R 2023 100 [facility] ATORVASTATI N CA 40MG TAB TAKE ONE TABLET BY MOUTH AT BEDTIME FOR CHOLESTE ROL ORAL ACTIVE 06/07/2026 [id number] 5 PRESTON GRACIA 2024 90 [facility] ATORVASTATI N CA 40MG TAB TAKE ONE TABLET BY MOUTH AT BEDTIME FOR CHOLESTE ROL ORAL DISCONT INUED 04/20/2025 [id number] 4 PRESTON GRACIA 2023 90 [facility] BUPROPION HCL 150MG 24HR TAB,SA TAKE ONE TABLET BY MOUTH EVERY MORNING FOR 14 DAYS, THEN TAKE TWO TABLETS EVERY MORNING FOR DEPRESSI ON ORAL DISCONT INUED (EDIT) 06/10/2025 [id number] 4 TANSEY,ER IN L 2023 46 [facility] BUPROPION HCL 150MG 24HR TAB,SA TAKE ONE TABLET BY MOUTH EVERY MORNING FOR 14 DAYS, THEN TAKE TWO TABLETS EVERY MORNING FOR DEPRESSI ON ORAL DISCONT INUED (EDIT) 07/09/2024 [id number] 4 TANSEY,ER IN L 2023 46 [facility] BUPROPION HCL 300MG 24HR TAB,SA TAKE ONE TABLET BY MOUTH EVERY MORNING FOR DEPRESSI ON ORAL ACTIVE 12/23/2025 [id number] 5 TANSEY,ER IN L 2024 90 [facility] BUPROPION HCL 300MG 24HR TAB,SA TAKE ONE TABLET BY MOUTH EVERY MORNING FOR DEPRESSI ON ORAL DISCONT INUED (EDIT) 07/13/2025 [id number] 5 EDUSEY,ER IN L 2023 60 [facility] CETIRIZINE HCL 10MG TAB TAKE TWO TABLETS BY MOUTH EVERY DAY NEEDED ORAL ACTIVE PRESTON GRACIA 2024 [facility] DULOXETINE HCL 60MG CAP,EC TAKE TWO CAPSULES BY MOUTH EVERY DAY FOR DEPRESSI ON ORAL 04/29/2025 [id number] 5 ROHIT,ER IN L 2023 180 [facility] ENSURE CLEAR LIQUID MIXED DOSHI 1 CARTON BY MOUTH EVERY DAY FOR NUTRITIO NAL SUPPLEME NT ORAL DISCONT INUED BY PROVIDE R 08/13/2025 [id number] 5 PRESTON GRACIA 2024 24 [facility] EPINEPHRINE (EQV-EPI-PE N) 0.3MG/0.3ML INJECTOR INJECT 1 PEN DIRECTED NEEDED FOR ALLERGIC REACTION ACTIVE 05/05/2026 [id number] 5 PRESTON GRACIA 2024 2 [facility] EPINEPHRINE (EQV-EPI-PE N) 0.3MG/0.3ML INJECTOR INJECT 1 PEN DIRECTED NEEDED FOR ALLERGIC REACTION DISCONT INUED 04/20/2025 [id number] 5 PRESTON GRACIA 2023 2 [facility] FEXOFENADIN E HCL 180MG TAB TAKE ONE TABLET BY MOUTH EVERY MORNING FOR ALLERGIE S ORAL ACTIVE 05/05/2026 [id number] 5 PRESTON GRACIA 2024 90 [facility] FEXOFENADIN E HCL 180MG TAB TAKE ONE TABLET BY MOUTH EVERY MORNING FOR ALLERGIE S ORAL DISCONT INUED 04/21/2025 [id number] 5 PRESTON GRACIA 2023 90 [facility] [...] PREP (PATIENT HAS PEG ALLERGY) ORAL 07/10/2025 [id number] 5 ALISIA ADAMS 2024 480 [facility] MULTIVITAMI NS CAP/TAB TAKE BY MOUTH ORAL ACTIVE UDOMPAP,P ROWPANGA 2024 [facility] NALOXONE HCL 4MG/SPRAY SOLN,SPRAY, NASAL SPRAY 1 DOSE IN ONE NOSTRIL DIRECTED FOR UNRESPON SIVENESS THEN CALL 911 - IF NO CHANGE IN 2-3 MINUTES, GIVE SECOND DOSE IN OPPOSITE NOSTRIL NASAL ACTIVE 05/05/2026 [id number] 5 PRESTON GRACIA 2024 2 [facility] ONDANSETRON HCL 4MG TAB,ORALLY DISINTEGRAT ING DISSOLVE ONE TABLET BY UNDER THE TONGUE EVERY 6 HOURS NEEDED FOR NAUSEA AND VOMITING SUBLIN GUAL ACTIVE 05/05/2026 [id number] 5 PRESTON GRACIA 2024 30 [facility] ONDANSETRON HCL 4MG TAB,ORALLY DISINTEGRAT ING DISSOLVE ONE TABLET BY UNDER THE TONGUE EVERY 6 HOURS NEEDED FOR NAUSEA AND VOMITING SUBLIN GUAL DISCONT INUED 04/20/2025 [id number] 5 PRESTON GRACIA 2023 30 [facility] OXYCODONE HCL 5MG TAB TAKE ONE TABLET BY MOUTH EVERY 4 HOURS NEEDED FOR 3 DAYS, THEN TAKE ONE TABLET EVERY 6 HOURS NEEDED FOR 3 DAYS, THEN TAKE ONE TABLET EVERY 8 HOURS NEEDED FOR 3 DAYS FOR PAIN - DO NOT TAKE HYDROMOR PHONE WHILE USING THIS RX ORAL DISCONT INUED 07/31/2024 [id number] 4 Carlos NEGRON 2023 39 [facility] OXYCODONE HCL 5MG TAB TAKE ONE TABLET BY MOUTH EVERY 6 HOURS NEEDED FOR PAIN ORAL 08/19/2024 [id number] EYAL TREJO 2023 17 [facility] PRAZOSIN HCL 2MG CAP TAKE TWO CAPSULES BY MOUTH AT BEDTIME FOR NIGHTMAR ES ORAL ACTIVE 12/23/2025 [id number] 5 TANSEY,ER IN L 2024 180 [facility] PRAZOSIN HCL 2MG CAP TAKE TWO CAPSULES BY MOUTH AT BEDTIME FOR NIGHTMAR ES ORAL DISCONT INUED 10/06/2025 [id number] 5 TANSEY,ER IN L 2024 180 [facility] PRAZOSIN HCL 2MG CAP TAKE TWO CAPSULES BY MOUTH AT BEDTIME FOR NIGHTMAR ES ORAL DISCONT INUED 04/29/2025 [id number] 5 TANSEY,ER IN L 2023 60 [facility] QUETIAPINE FUMARATE 200MG TAB TAKE ONE TABLET BY MOUTH EVERY MORNING FOR DEPRESSI ON ORAL DISCONT INUED (EDIT) 04/29/2025 [id number] 5 TANSEY,ER IN L 2023 30 [facility] QUETIAPINE FUMARATE 300MG TAB TAKE ONE TABLET BY MOUTH AT BEDTIME FOR DEPRESSI ON ORAL ACTIVE 12/23/2025 [id number] 5 TANSEY,ER IN L 2024 90 [facility] QUETIAPINE FUMARATE 300MG TAB TAKE ONE TABLET BY MOUTH AT BEDTIME FOR DEPRESSI ON ORAL DISCONT INUED (EDIT) 04/29/2025 [id number] 5 TANSEY,ER IN L 2023 30 [facility] QUETIAPINE FUMARATE 50MG TAB TAKE TWO TABLETS BY MOUTH EVERY MORNING FOR 14 DAYS, THEN TAKE ONE TABLET EVERY MORNING FOR MOOD ORAL ACTIVE 12/23/2025 [id number] 5 TANSEY,ER IN L 2024 74 [facility] SIMETHICONE 125MG TAB,CHEW CHEW ONE TABLET BY MOUTH DIRECTIONAL DRILLER NEEDED FOR COLON PREP ORAL ACTIVE 08/09/2025 [id number] 5 ALISIA ADAMS 2024 60 [facility] TRAZODONE HCL 50MG TAB TAKE ONE TABLET BY MOUTH AT BEDTIME NEEDED FOR SLEEP ORAL ACTIVE 12/23/2025 [id number] 5 TANSEY,ER IN L 2024 90 [facility] TRAZODONE HCL 50MG TAB TAKE ONE TABLET BY MOUTH AT BEDTIME NEEDED FOR SLEEP ORAL DISCONT INUED (EDIT) 04/29/2025 [id number] 5 TANSEY,ER IN L 2023 30 [facility] [...] ORAL DISCONT INUED BY PROVIDE R 07/20/2025 [id number] 4 RAHEL DAILY 2023 96 [facility] Allergies, Adverse Reactions, Alerts Combined list of allergies from 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 It does not include entries that were removed or entered in error. Substance Category Reaction Severity Reaction type Status Date Reported Comments Source FENTANYL Propensity to adverse reactions to drug (finding) Abdominal pain SEVERE active 3 [facility] FLUARIX (INFLUENZA TVS - VACCINE/PF ) Drug allergy (disorder) Unknown active 7 [place] INFLUENZA Propensity to adverse reactions to drug (finding) Anaphylaxis SEVERE active 3 [facility] MIRALAX Propensity to adverse reactions to drug (finding) Anaphylaxis SEVERE active 3 [facility] PFIZER COVID-19 VACCINE (EUA) Propensity to adverse reactions to drug (finding) Anaphylaxis, Urticaria, Itching, Dyspnea SEVERE active 3 [facility] Immunizations Combined list of available immunizations from the 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 Immunization Series Date Given Administered By Site Reaction Lot Number CVX Code Drug Drawer In Dobby Loom Status Comments Source COVID-19 (STEPHANIE), VECTOR-NR, RS-AD26, PF, 0.5 ML 4 2021 212 complet ed HISTORICA L INFORMATI ON - FROM OTHER REGISTRY, [facility] COVID-19 vaccine, vector-nr, rS-Ad26, PF, 0.5 mL 2021 ATTARIAN, () Not Given COVID-19 vaccine, vector-nr , rS-Ad26, PF, 0.5 mL DoD COVID-19 ([employer]), VECTOR-NR, RS-AD26, PF, 0.5 ML 3 2021 212 complet ed HISTORICA L INFORMATI ON - FROM OTHER REGISTRY, [facility] COVID-19 vaccine, vector-nr, rS-Ad26, PF, 0.5 mL 2021 ATTARIAN, [employer] (JSN) Not Given COVID-19 vaccine, vector-nr , rS-Ad26, PF, 0.5 mL DoD COVID-19 (STEPHANIE), VECTOR-NR, RS-AD26, PF, 0.5 ML 2 2020 212 complet ed HISTORICA L INFORMATI ON - FROM OTHER REGISTRY, [facility] COVID-19 (PFIZER), MRNA, LNP-S, PF, 30 MCG/0.3 ML DOSE 1 2019 208 complet ed HISTORICA L INFORMATI ON - FROM OTHER REGISTRY, [facility] TD (ADULT) 2016 138 complet ed HISTORICA L INFORMATI ON - FROM OTHER REGISTRY, [facility] TD (ADULT), 5 LF TETANUS TOXOID, PRESERVATIVE FREE, ADSORBED 2016 113 complet ed HISTORICA L INFORMATI ON - FROM OTHER REGISTRY, [facility] TDAP 2006 115 complet ed HISTORICA L INFORMATI ON - FROM OTHER REGISTRY, [facility] Results Combined list of recent chemistry, hematology [...] May 04, 2025 02:22 PM Reporting Lab: [facility] [address] Performing Lab: [facility] [id number] CBOC C.TRACHOMATIS/N.GONORRHEA DNANEISSERIA GONORRHOEAE DNA [PRESENCE] IN VAGINAL FLUID BY JULIO CÉSAR WITH PROBE DETECTIONNOT QOPVUKNW73/10/2025Specimen Type: VAGINA No comment entered. Ordering Provider: EMIR GRACIA Report Released Date/Time: May 04, 2025 02:22 PM Reporting Lab: [facility] [address] Performing Lab: [facility] [id number] CBOC C.TRACHOMATIS/N.GONORRHEA DNAINTERPRETATION AND REVIEW OF LABORATORY RESULTS Infectious agent DNA is not detected by this assay05/30/2025Specimen Type: VAGINA No comment entered. Ordering Provider: EMIR GRACIA Report Released Date/Time: May 04, 2025 02:22 PM Reporting Lab: [facility] [address] Performing Lab: [facility] [id number] CBOCHUMAN PAPILLOMA VIRUS,DNA HIGH RISKHUMAN PAPILLOMA VIRUS 16 DNA [PRESENCE] IN CERVIX BY JULIO CÉSAR WITH PROBE [id number]/10/2025Specimen Type: CERVICAL VAGINAL CYTOLOGIC MATERIAL No comment entered. Ordering Provider: EMIR GRACIA Report Released Date/Time: May 30, 2025 02:45 PM Reporting Lab: [facility] [address] Performing Lab: [facility] [id number] CBOCHUMAN [place]ILLOMA VIRUS,DNA HIGH RISKHUMAN PAPILLOMA VIRUS 18 DNA [PRESENCE] IN CERVIX BY JULIO CÉSAR WITH PROBE [id number]/10/2025Specimen Type: CERVICAL VAGINAL CYTOLOGIC MATERIAL No comment entered. Ordering Provider: EMIR GRACIA Report Released Date/Time: May 30, 2025 02:45 PM Reporting Lab: [facility] [address] Performing Lab: [facility] [id number] CBOCHUMAN PAPILLOMA VIRUS,DNA HIGH RISKHUMAN PAPILLOMA VIRUS 16+18+31+33+35+45+51+52+56 DNA [PRESENCE] IN CERVIX BY [id number]/10/2025Specimen Type: CERVICAL VAGINAL CYTOLOGIC MATERIAL No comment entered. Ordering Provider: EMIR GRACIA Report Released Date/Time: May 30, 2025 02:45 PM Reporting Lab: [facility] [address] Performing Lab: [facility] [id number] CBOCHUMAN PAPILLOMA VIRUS,DNA HIGH RISKINTERPRETATION AND REVIEW OF LABORATORY RESULTSHR-HPV is undetectable or below preset threshold.05/30/2025Specimen Type: CERVICAL VAGINAL CYTOLOGIC MATERIAL No comment entered. Ordering Provider: EMIR GRACIA Report Released Date/Time: May 30, 2025 02:45 PM Reporting Lab: [facility] [address] Performing Lab: [facility] [id number] CBOCOCCULT BLOOD FIT X1 SCREENHEMOGLOBIN.GASTROINTESTINAL.LOWER [PRESENCE] IN STOOL BY IMMUNOASSAY QXCBUZLY04/17/2025HHSpecimen Type: FECES No comment entered. Ordering Provider: EMIR GRACIA Report Released Date/Time: May 04, 2025 02:31 PM Reporting Lab: [facility] [address] Performing Lab: [facility] [id number] CBOCBASIC METABOLIC PANEL+MGCREATININE [MASS/VOLUME] IN SERUM OR PLASMA1.1 mg/dL0.5 - 1.010/H Specimen Type: PLASMA No comment entered. Ordering Provider: EMIR GRACIA Report Released Date/Time: May 04, 2025 02:23 PM Reporting Lab: [facility] [address] Performing Lab: [facility] [id number] CBOCBASIC METABOLIC PANEL+MGUREA NITROGEN [MASS/VOLUME] IN SERUM OR PLASMA9 mg/dL7 - Specimen Type: PLASMA No comment entered. Ordering Provider: EMIR GRACIA Report Released Date/Time: May 04, 2025 02:23 PM Reporting Lab: [facility] [address] Performing Lab: [facility] [id number] CBOCBASIC METABOLIC PANEL+MGGLUCOSE [MASS/VOLUME] IN SERUM OR MSDJIN58 mg/dL70 - 83659 Specimen Type: PLASMA No comment entered. Ordering Provider: EMIR GRACIA Report Released Date/Time: May 04, 2025 02:23 PM Reporting Lab: [facility] [address] Performing Lab: [facility] [id number] CBOCBASIC METABOLIC PANEL+MGSODIUM [MOLES/VOLUME] IN SERUM OR [id number] mmol/L136 - 49075 Specimen Type: PLASMA No comment entered. Ordering Provider: EMIR GRACIA Report Released Date/Time: May 04, 2025 02:23 PM Reporting Lab: [facility] [address] Performing Lab: [facility] [id number] CBOCBASIC METABOLIC PANEL+MGPOTASSIUM [MOLES/VOLUME] IN SERUM OR PLASMA3.5 mmol/L3.5 - 5.110 Specimen Type: PLASMA No comment entered. Ordering Provider: EMIR GRACIA Report Released Date/Time: May 04, 2025 02:23 PM Reporting Lab: [facility] [address] Performing Lab: [facility] [id number] CBOCBASIC METABOLIC PANEL+MGCHLORIDE [MOLES/VOLUME] IN SERUM OR [id number] mmol/L98 - 29586 Specimen Type: PLASMA No comment entered. Ordering Provider: EMIR GRACIA Report Released Date/Time: May 04, 2025 02:23 PM Reporting Lab: [facility] [address] Performing Lab: [facility] [id number] CBOCBASIC METABOLIC PANEL+MGCARBON DIOXIDE, TOTAL [MOLES/VOLUME] IN SERUM OR PCIIDO01 mmol/L22 - 29 10Specimen Type: PLASMA No comment entered. Ordering Provider: EMIR GRACIA Report Released Date/Time: May 04, 2025 02:23 PM Reporting Lab: [facility] [address] Performing Lab: [facility] [id number] CBOCBASIC METABOLIC PANEL+MGCALCIUM [MASS/VOLUME] IN SERUM OR PLASMA9.1 mg/dL8.4 - 10.210 Specimen Type: PLASMA No comment entered. Ordering Provider: EMIR GRACIA Report Released Date/Time: May 04, 2025 02:23 PM Reporting Lab: [facility] [address] Performing Lab: [facility] [id number] CBOCBASIC METABOLIC PANEL+MGMAGNESIUM [MASS/VOLUME] IN SERUM OR PLASMA2.1 mg/dL1.6 - 2.610 Specimen Type: PLASMA No comment entered. Ordering Provider: EMIR GRACIA Report Released Date/Time: May 04, 2025 02:23 PM Reporting Lab: [facility] [address] Performing Lab: [facility] [id number] CBOCBASIC METABOLIC PANEL+MGANION GAP IN SERUM OR PLASMA BY CALCULATION9 mmol/L5 - 1510/ Specimen Type: PLASMA No comment entered. Ordering Provider: EMIR GRACIA Report Released Date/Time: May 04, 2025 02:23 PM Reporting Lab: [facility] [address] Performing Lab: [facility] [id number] CBOCBASIC METABOLIC PANEL+MGGLOMERULAR FILTRATION RATE [VOLUME RATE/AREA] IN SERUM, PLASMA OR BLOOD BY CREATININE-BASED FORMULA(CKD-EPI 2020)/1.73 SQ [id number] Type: PLASMA No comment entered. Ordering Provider: EMIR GRACIA Report Released Date/Time: May 04, 2025 02:23 PM Reporting Lab: [facility] [address] Performing Lab: [facility] [id number] CBOCSYPHILIS AB/RPR RFLX SYPHILIS SCREEN TEST STATUS [id number]/15/2025Specimen Type: SERUM No comment entered. Ordering Provider: EMIR GRACIA Report Released Date/Time: May 04, 2025 02:23 PM Reporting Lab: [facility] [address] Performing Lab: [facility] [id number] CBOCURINALYSISCOLOR OF FSAMBALJRCF27/15/2025Specimen Type: URINE No comment entered. Ordering Provider: EMIR GRACIA Report Released Date/Time: May 04, 2025 02:22 PM Reporting Lab: [facility] [address] Performing Lab: [facility] [id number] CBOCURINALYSISSPECIFIC GRAVITY OF URINE1.0341.003 - 1.9906305/04/2025Specimen Type: URINE No comment entered. Ordering Provider: EMIR GRACIA Report Released Date/Time: May 04, 2025 02:22 PM Reporting Lab: [facility] [address] Performing Lab: [facility] [id number] CBOCURINALYSIS BILIRUBIN.TOTAL [PRESENCE] IN URINE BY TEST [id number]/15/2025Specimen Type: URINE No comment entered. Ordering Provider: EMIR GRACIA Report Released Date/Time: May 04, 2025 02:22 PM Reporting Lab: [facility] [address] Performing Lab: [facility] [id number] CBOCURINALYSISKETONES [MASS/VOLUME] IN URINE BY TEST CPQSTQACVX49/15/2025HSpecimen Type: URINE No comment entered. Ordering Provider: EMIR GRACIA Report Released Date/Time: May 04, 2025 02:22 PM Reporting Lab: [facility] [address] Performing Lab: [facility] [id number] CBOCURINALYSISGLUCOSE [MASS/VOLUME] IN URINE BY TEST STRIPNEGATIVEmg/dL<30 - 3010Specimen Type: URINE No comment entered. Ordering Provider: EMIR GRACIA Report Released Date/Time: May 04, 2025 02:22 PM Reporting Lab: [facility] [address] Performing Lab: [facility] [id number] CBOCURINALYSISPROTEIN [MASS/VOLUME] IN URINE BY TEST STRIP30 mg/dL<20 - HSpecimen Type: URINE No comment entered. Ordering Provider: EMIR GRACIA Report Released Date/Time: May 04, 2025 02:22 PM Reporting Lab: [facility] [address] Performing Lab: [facility] [id number] CBOCURINALYSISPH OF URINE BY TEST STRIP6.05.0 - 8.010Specimen Type: URINE No comment entered. Ordering Provider: EMIR GRACIA Report Released Date/Time: May 04, 2025 02:22 PM Reporting Lab: [facility] [address] Performing Lab: [facility] [address]SHYSLAYG CBOCURINALYSISLEUKOCYTES [#/AREA] IN URINE SEDIMENT BY MICROSCOPY HIGH POWER FIELD1 /[HPF]0 - 710 Specimen Type: URINE No comment entered. Ordering Provider: EMIR GRACIA Report Released Date/Time: May 04, 2025 02:22 PM Reporting Lab: [facility] [address] Performing Lab: [facility] [address]HYFQMOVH CBOCURINALYSISBACTERIA [PRESENCE] IN URINE SEDIMENT BY LIGHT DZJBDJRIRAASS79/15/2025HSpecimen Type: URINE No comment entered. Ordering Provider: EMIR GRACIA Report Released Date/Time: May 04, 2025 02:22 PM Reporting Lab: [facility] [address] Performing Lab: [facility] [id number] CBOCURINALYSISERYTHROCYTES [#/AREA] IN URINE SEDIMENT BY MICROSCOPY HIGH POWER FIELD3 /[HPF]0 - 310 Specimen Type: URINE No comment entered. Ordering Provider: EMIR GRACIA Report Released Date/Time: May 04, 2025 02:22 PM Reporting Lab: [facility] [address] Performing Lab: [facility] [address]RKQBVBBU CBOCURINALYSISAPPEARANCE OF ZXRFBNUMDXM40/15/2025Specimen Type: URINE No comment entered. Ordering Provider: EMIR GRACIA Report Released Date/Time: May 04, 2025 02:22 PM Reporting Lab: [facility] [address] Performing Lab: [facility] [id number] CBOCURINALYSISEPITHELIAL CELLS.SQUAMOUS [#/AREA] IN URINE SEDIMENT BY MICROSCOPY HIGH POWER FIELD18 /[HPF]<5 - 510HSpecimen Type: URINE No comment entered. Ordering Provider: EMIR GRACIA Report Released Date/Time: May 04, 2025 02:22 PM Reporting Lab: [facility] [address] Performing Lab: [facility] [id number] CBOCURINALYSISHEMOGLOBIN [PRESENCE] IN URINE BY TEST HVEBWBRUVW17/15/2025HSpecimen Type: URINE No comment entered. Ordering Provider: EMIR GRACIA Report Released Date/Time: May 04, 2025 02:22 PM Reporting Lab: [facility] [address] Performing Lab: [facility] [id number] CBOCURINALYSISNITRITE [PRESENCE] IN URINE BY TEST PMGKSGEKXFYJN90/15/2025Specimen Type: URINE No comment entered. Ordering Provider: EMIR GRACIA Report Released Date/Time: May 04, 2025 02:22 PM Reporting Lab: [facility] [address] Performing Lab: [facility] [id number] CBOCURINALYSISLEUKOCYTE ESTERASE [PRESENCE] IN URINE BY TEST WUDMVNXGLFJRI09/15/2025Specimen Type: URINE No comment entered. Ordering Provider: EMIR GRACIA Report Released Date/Time: May 04, 2025 02:22 PM Reporting Lab: [facility] [address] Performing Lab: [facility] [id number] CBOCHIV AG/AB SCREENHIV 1+2 AB+HIV1 P24 AG [PRESENCE] IN SERUM OR PLASMA BY LJJORBOGNBGLYDUVXJT81/15/2025 Specimen Type: SERUM No comment entered. Ordering Provider: EMIR GRACIA Report Released Date/Time: May 04, 2025 02:20 PM Reporting Lab: [facility] [address] Performing Lab: [facility] [id number] CBOCLIPID PANEL,NON-FASTING CHOLESTEROL [MASS/VOLUME] IN SERUM OR JNFBSW728 mg/dL<199 - H Specimen Type: PLASMA Comment: Elevated triglyceride result from a non-fasting specimen should be interpreted with caution. A fasting panel is recommended for accurate triglycerides when trigs are >200 from a non-fasting specimen. Ordering Provider: EMIR GRACIA Report Released Date/Time: May 04, 2025 02:22 PM Reporting Lab: [facility] [address] Performing Lab: [facility] [id number] CBOCLIPID PANEL,NON-FASTING CHOLESTEROL IN HDL [MASS/VOLUME] IN SERUM OR AMMERM08 mg/zG038805/04/2025LSpecimen Type: PLASMA Comment: Elevated triglyceride result from a non-fasting specimen should be interpreted with caution. A fasting panel is recommended for accurate triglycerides when trigs are >200 from a non-fasting specimen. Ordering Provider: EMIR GRACIA Report Released Date/Time: May 04, 2025 02:22 PM Reporting Lab: [facility] [address] Performing Lab: [facility] [address]KHDUSGQD CBOCLIPID PANEL,NON-FASTING CHOLESTEROL IN LDL [MASS/VOLUME] IN SERUM OR PLASMA BY BVTHLPQNRQO557 mg/dL<99 - 9905/04/2025HSpecimen Type: PLASMA Comment: Elevated triglyceride result from a non-fasting specimen should be interpreted with caution. A fasting panel is recommended for accurate triglycerides when trigs are >200 from a non-fasting specimen. Ordering Provider: EMIR GRACIA Report Released Date/Time: May 04, 2025 02:22 PM Reporting Lab: [facility] [address] Performing Lab: [facility] [address]DVGPAHIM CBOCLIPID PANEL,NON-FASTING CHOLESTEROL IN VLDL [MASS/VOLUME] IN SERUM OR PLASMA BY ZNEENVSHYDF33 mg/dL<29 - 291HSpecimen Type: PLASMA Comment: Elevated triglyceride result from a non-fasting specimen should be interpreted with caution. A fasting panel is recommended for accurate triglycerides when trigs are >200 from a non-fasting specimen. Ordering Provider: EMIR GRACIA Report Released Date/Time: May 04, 2025 02:22 PM Reporting Lab: [facility] [address] Performing Lab: [facility] [address]HBIVRTNN CBOCLIPID PANEL,NON-FASTING CHOLESTEROL NON HDL [MASS/VOLUME] IN SERUM OR XDNIQX780 mg/dL<129 - 129 05/04/2025HSpecimen Type: PLASMA Comment: Elevated triglyceride result from a non-fasting specimen should be interpreted with caution. A fasting panel is recommended for accurate triglycerides when trigs are >200 from a non-fasting specimen. Ordering Provider: EMIR GRACIA Report Released Date/Time: May 04, 2025 02:22 PM Reporting Lab: [facility] [address] Performing Lab: [facility] [id number] CBOCLIPID PANEL,NON-FASTING TRIGLYCERIDE [MASS/VOLUME] IN SERUM OR QJKATN615 mg/dL<149 - [address]/H Specimen Type: PLASMA Comment: Elevated triglyceride result from a non-fasting specimen should be interpreted with caution. A fasting panel is recommended for accurate triglycerides when trigs are >200 from a non-fasting specimen. Ordering Provider: EMIR GRACIA Report Released Date/Time: May 04, 2025 02:22 PM Reporting Lab: [facility] [address] Performing Lab: [facility] [id number] CBOCLYME SCREEN W/ REFLEX .LYME TOTAL IYMEYYMUULDCGL11/03/2025HSpecimen Type: SERUM Comment: Positive or equivocal results [...] Feb 28, 2025 10:48 AM Reporting Lab: [facility] [address] Performing Lab: [facility] [id number] CBOCLYME SCREEN W/ REFLEX .LYME IGG WIOOTSHYVGJCTA08/03/2025Specimen Type: SERUM Comment: Positive or equivocal results [...] Feb 28, 2025 10:48 AM Reporting Lab: [facility] [address] Performing Lab: [facility] [address]SVGIMYBC CBOCLYME SCREEN W/ REFLEX .LYME IGM MZJMPYGVDMMCBO25/03/2025HSpecimen Type: SERUM Comment: Positive or equivocal results [...] Feb 28, 2025 10:48 AM Reporting Lab: [facility] [address] Performing Lab: [facility] [address]NFVCGATJ [facility] URINALYSISSPECIFIC GRAVITY OF URINE1.0151.001 - 1.38799Specimen Type: URINE No comment entered. Ordering Provider: EMIR GRACIA Report Released Date/Time: Feb 01, 2025 02:15 PM Reporting Lab: [facility] [address] [facility] [address] Performing Lab: [facility] [address] [facility] [address]CVRQTWRV [facility] URINALYSISPH OF URINE BY TEST STRIP6.04.6 - 8.007/Specimen Type: URINE No comment entered. Ordering Provider: EMIR GRACIA Report Released Date/Time: Feb 01, 2025 02:15 PM Reporting Lab: [facility] [address] [facility] [place] [address] Performing Lab: [facility] [address] [facility] [place] [address]ULFSWPKG [facility] URINALYSISLEUKOCYTE ESTERASE [PRESENCE] IN URINE BY TEST CFWPLFuhdu47/15/2025HSpecimen Type: URINE No comment entered. Ordering Provider: EMIR GRACIA Report Released Date/Time: Feb 01, 2025 02:15 PM Reporting Lab: [facility] [address] [facility] [address] Performing Lab: [facility] [address] [facility] [address]JULJISET [facility] URINALYSISNITRITE [PRESENCE] IN URINE BY TEST AEWAFUogonjuj39/15/2025Specimen Type: URINE No comment entered. Ordering Provider: EMIR GRACIA Report Released Date/Time: Feb 01, 2025 02:15 PM Reporting Lab: [facility] [address] [facility] [place] [address] Performing Lab: [facility] [address] [facility] [address]IZWMNSXC [facility] URINALYSISPROTEIN [PRESENCE] IN URINENegativemg/dL02/01/2025Specimen Type: URINE No comment entered. Ordering Provider: EMIR GRACIA Report Released Date/Time: Feb 01, 2025 02:15 PM Reporting Lab: [facility] [address] [facility] [address] Performing Lab: [facility] [address] [facility] [place] [address]WQATGZFG [facility] URINALYSISFASTING GLUCOSE [PRESENCE] IN URINE BY TEST STRIPNegativemg/dL02/01/2025Specimen Type: URINE No comment entered. Ordering Provider: EMIR GRACIA Report Released Date/Time: Feb 01, 2025 02:15 PM Reporting Lab: [facility] [address] [facility] [place] [address] Performing Lab: [facility] [address] [facility] [place] [address]FKDQGOCB [facility] URINALYSISKETONES [MASS/VOLUME] IN URINE BY TEST STRIPNegativemg/dL02/01/2025Specimen Type: URINE No comment entered. Ordering Provider: EMIR GRACIA Report Released Date/Time: Feb 01, 2025 02:15 PM Reporting Lab: [facility] [address] [facility] [place] [address] Performing Lab: [facility] [address] [facility] [address]OOHWMTVD [facility] URINALYSIS BILIRUBIN.TOTAL [MASS/VOLUME] IN TRTLJPwnrhssp35/15/2025Specimen Type: URINE No comment entered. Ordering Provider: EMIR GRACIA Report Released Date/Time: Feb 01, 2025 02:15 PM Reporting Lab: [facility] [address] [facility] [place] [address] Performing Lab: [facility] [address] [facility] [address]PBQXFCMP [facility] URINALYSISHEMOGLOBIN [PRESENCE] IN URINE BY TEST IZCDQZolexfef86/15/2025Specimen Type: URINE No comment entered. Ordering Provider: EMIR GRACIA Report Released Date/Time: Feb 01, 2025 02:15 PM Reporting Lab: [facility] [address] [facility] [place] [address] Performing Lab: [facility] [address] [facility] [address]OBLAHSHQ [facility] URINALYSISCOLOR OF URINE Npasvm4402/01/2025Specimen Type: URINE No comment entered. Ordering Provider: EMIR GRACIA Report Released Date/Time: Feb 01, 2025 02:15 PM Reporting Lab: [facility] [address] [facility] [place] [address] Performing Lab: [facility] [address] [facility] [address]ZZTFJBZK [facility] URINALYSISAPPEARANCE OF IPIFOPdrde00/15/2025Specimen Type: URINE No comment entered. Ordering Provider: EMIR GRACIA Report Released Date/Time: Feb 01, 2025 02:15 PM Reporting Lab: [facility] [address] [facility] [address] Performing Lab: [facility] [address] [facility] [address]HMAUZVLQ CB[facility] Vital Signs Combined list of inpatient and outpatient Vital Signs from Department of Defense and Veterans Affairs, ranging from 12 months to all on record, depending upon the facility. Vital Sign Value Date Comments Source PULSE OXIMETRY 98 % 06/06/2025 13:24:45 [facility] FPICISGVY955.411 13:24:45[facility] MLEKRT49 kg/m2 06/06/2025 13:24:45[facility] PBLSMCNDXAGFBG07.911 13:24:45 [facility] NICVWUNL7579 13:24:45[facility] SQFVBYPDLIBJQX88 06/06/2025 13:24:45[facility] HCSSYSTOLIC BLOOD EDGGPTCT67006 14:14:51[place] CBOCDIASTOLIC BLOOD QWQOKLHV1127/10/2025 14:14:51[facility] PULSE HVGVGBNS06 %05/30/2025 14:14:51[place] KFKUZJEG023 14:14:51 [facility] QLZKBMCEFFMMPPO19.111 14:14:51[place] ZIQQVWSTY9927 14:14:51[place] USNFLWFPZZVQCSV9193 14:14:51[place] CBOCSYSTOLIC BLOOD CQHOYFFQ06677/08/2025 11:02:12[place] CBOCDIASTOLIC BLOOD ZWPDVXEB9301 11:02:12[place] [facility]OCPULSE IDNWBHFN29 %04/27/2025 11:02:12[place] CBOCWEIGHT 219.510/02/2025 11:02:12[place] HISXCWD67 kg/m210 11:02:12[facility] QZYDYMWRQBG14.110 11:02:12[place] LMXRFZDCK0679 11:02:12 [facility]OCSYSTOLIC BLOOD DQAEKCCA08838 11:09:54[facility] DIASTOLIC BLOOD CQYFLBGG6545/06/2025 11:09:54[facility] HCSPULSE SULBJWOQ46 %02/23/2025 11:09:54[facility] AQYRMSWIP515.308 11:09:54[facility] PQTECG03 kg/m208 11:09:54[facility] GZCHEBYQR5445 11:09:54[facility] OORDDRRSLDAYUA79.508 11:09:54[facility] POFKI52747 11:09:54[facility] IUDCLVJGIVDPLJ1176 11:09:54 [facility] HCSSYSTOLIC BLOOD IRLGHNVG88322/15/2025 14:16:04[facility] DIASTOLIC BLOOD MCZWPVRG6631/15/2025 14:16:04[place] [facility]OCPULSE IJDAVZQG79 % 02/01/2025 14:16:04[place] BZLHBHACC6775/15/2025 14:16:04[facility] Encounters Combined list of: 1) [...] RADHA Hogan(IEP Hearing Conservat ion Exam) OUTPATIENT [id number] a1 593 BRANDEN CAREY 09/29 Released w/o Limitations RADHA Hogan(IEP Hearing Conserv ation Exam) General [facility] [place] Optometry ) OUTPATIENT [id number] ISIAH GUERRAOPHE Isaac Singer 09/30 Released w/o Limitations [facility] [place] [facility] Er Module) OUTPATIENT [id number] ankle pain ESTER CHEUNG 10/06 Released with Work/Duty Limitations [facility] Er [place] [facility] [place] OUTPATIENT [id number] HEAD INJURY. MARCIE DANG 10/21 Sick at Home/Quarter s [facility] [place] [place] Er [place] [facility] OUTPATIENT [id number] uri MARCIE DANG 10/23 Released with Work/Duty Limitations [facility] [place] Er [place] [facility]) OUTPATIENT [id number] F/U HEAD INJURY. ORTIZ RUTHERFORD 10/25 Released w/o Limitations [facility] [place] Er [place]) [facility] [place] OUTPATIENT [id number] REORDER BRENDA DODD 12/08 Released w/o Limitations [facility] [place] [facility] Er [place] OUTPATIENT [id number] ankle and leg pain SARA DIEHL 12/18 Released with Work/Duty Limitations [facility] [place]-TM C Er Module[place] [facility] PSYCHOTHER APY [id number] Diagnos is: ICD-10- CM F33.9 Major depress yashira disorde r, recurre nt, unspeci fied JACQUI,LKAIA OTHY A 01/13 [facility] 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/ M [id number] Diagnos is: ICD-10- CM F32.9 Major depress yashira disorde r, single episode , unspeci fied JACQUI,LAKIA OTHY A 01/13 [facility] 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/ M [id number] Diagnos is: ICD-10- CM F33.0 Major depress yashira disorde r, recurre nt, mild STICH,JOSHI NA M 01/13 [facility] OFFICE O/P EST LOW 20 MIN [id number] Diagnos is: ICD-10- CM F43.12 Post-tr aumatic stress disorde r, chronic PIENTKA,LA URA J 01/13 [facility] 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/ M [address]-9 [id number] Diagnos is: ICD-10- CM F32.9 Major depress yashira disorde r, single episode , unspeci fied JACQUI,LAKIA OTHY A 01/14 [facility] 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/ M [id number] Diagnos is: ICD-10- CM F33.9 Major depress yashira disorde r, recurre nt, unspeci fied RENEE MOORE,AMA NDA G 01/14 [facility] 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/ M [address]-061 [id number] Diagnos is: ICD-10- CM F32.9 Major depress yashira disorde r, single episode , unspeci fied MARY HURTADO E 01/14 [facility] QNHP OL DIG ASSMT&MGMT 21+ [id number] Diagnos is: ICD-10- CM F43.12 Post-tr aumatic stress disorde r, chronic PAULMANN,R ACHEL M 01/15 [facility] PS[facility]CH[facility] APY [id number] Diagnos is: ICD-10- CM F33.9 Major depress yashira disorde r, recurre nt, unspeci fied JACQUI,LAKIA OTHY A 01/15 [facility] 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/ M [id number] Diagnos is: ICD-10- CM F33.9 Major depress yashira disorde r, recurre nt, unspeci fied YAMILEX SMITH NDTaylor G 01/15 [facility] 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/ M [id number] Diagnos is: ICD-10- CM F32.9 Major depress yashira disorde r, single episode , unspeci fied STICH,JOSHI NA M 01/15 [facility] 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/ M [id number] Diagnos is: ICD-10- CM F33.0 Major depress yashira disorde r, recurre nt, mild STICH,JOSHI NA M 01/18 [facility] 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/ M [address]-8 [id number] Diagnos is: ICD-10- CM F32.9 Major depress yashira disorde r, single episode , unspeci fied JACQUI,LAKIA OTHY A 01/18 [facility] [id number] Diagnos is: ICD-10- CM F43.12 Post-tr aumatic stress disorde r, chronic JACQUI,LAKIA OTHY A 01/18 [facility] OFF[facility] O/P EST LOW 20 MIN 94360-361 [id number] Diagnos is: ICD-10- CM Z86.59 Persona l history of other mental and behavio ral disorde rs LOLA DRISCOLL J 01/18 [facility] 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/ M [address]061 [id number] Diagnos is: ICD-10- CM F32.9 Major depress yashira disorde r, single episode , unspeci fied MARY HURTADO MARA E 01/19 [facility] 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/ M [address]461 [id number] Diagnos is: ICD-10- CM F32.9 Major depress yashira disorde r, single episode , unspeci fied YAMILEX SMITH 01/19 [facility] 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/ M [address]61 [id number] Diagnos is: ICD-10- CM F32.9 Major depress yashira disorde r, single episode , unspeci fied MARY HURTADO MARA E 01/19 [facility] 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/ M 51480-0.61 [id number] Diagnos is: ICD-10- CM F43.12 Post-tr aumatic stress disorde r, chronic MARY HURTADO MARA E 01/20 [facility] 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/ M [address]-4.61 [id number] Diagnos is: ICD-10- CM F32.9 Major depress yashira disorde r, single episode , unspeci fied HOLLI HUFFMAN 01/20 [facility] 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/ M [address]-8.61 [id number] Diagnos is: ICD-10- CM F32.9 Major depress yashira disorde r, single episode , unspeci fied GENESISMAGD MARA E 01/20 [facility] 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/ M [address]-3.61 [id number] Diagnos is: ICD-10- CM F32.9 Major depress yashira disorde r, single episode , unspeci MARY Hartman E 01/22 [facility] 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/ M [id number] Diagnos is: ICD-10- CM F33.9 Major depress yashira disorde r, recurre nt, unspeci fied YAMILEX SMITH NDTaylor G 01/22 [facility]Y [id number] Diagnos is: ICD-10- CM F43.12 Post-tr aumatic stress disorde r, chronic LAKIA OSMAN A 01/22 [facility] Outpatient Encounter [id number] 01/22 [facility] 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/ M [id number] Diagnos is: ICD-10- CM F32.9 Major depress yashira disorde r, single episode , unspeci MARY Hartman E 01/22 [facility] HEARING AID REPAIR/MOD IFYING [id number] Diagnos is: ICD-10- CM H90.3 Sensori neural hearing loss, bilater al LOR CHAMPAGNE K 01/23 [facility] CRISIS INTERVEN [place]/ M [id number] Diagnos is: ICD-10- CM F43.12 Post-tr aumatic stress disorde r, chronic Inna LOPEZ M 01/28 [facility] MTMS BY PHARM ADDL 15 MIN [id number] Diagnos is: ICD-10- CM F43.12 Post-tr aumatic stress disorde r, chronic DOROTHYSANTOS D 01/28 [facility] PSYTX W PT 45 MINUTES 79461-2.61 [id number] Diagnos is: ICD-10- CM F43.12 Post-tr aumatic stress disorde r, Inna Napoles 02/03 [facility] [place] [facility] PRO PHONE CALL 11-20 MIN 81879-7.61 [id number] Diagnos is: ICD-10- CM Z51.89 Encount er for other specifi ed afterca TERESA Stover 02/04 [place] [facility] [place] [facility] [place] [address]-4.61 [id number] Diagnos is: ICD-10- CM Z51.89 Encount er for other specifi ed afterca TERESA Stover 02/06 [place] [facility] [place] [facility] [place] [address]-6.61 [phone] Diagnos is: ICD-10- CM Z51.89 Encount er for other specifi ed afterca TERESA Stover 02/06 [place] [facility] [place] [facility] PSYTX W PT 45 MINUTES 50477-4.61 [id number] Diagnos is: ICD-10- CM F43.12 Post-tr aumatic stress disorde r, Inna Napoles 02/10 [place] [facility] [place] [facility] MTMS BY PHARM EST 15 MIN 64019-9.61 [phone] Diagnos is: ICD-10- CM F33.2 Major depress v disorde r, recurre nt severe w/o psych feature s DOROTHY,ANT OINETTE D 02/10 [place] [facility] [place] [facility] 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/ M [address]-6.61 [id number] Diagnos is: ICD-10- CM F43.12 Post-tr aumatic stress disorde r, Inna Napoles 02/17 [place] [facility] [place] [facility] MTMS BY PHARM EST 15 MIN 49936-9.61 [phone] Diagnos is: ICD-10- CM F33.2 Major depress v disorde r, recurre nt severe w/o psych feature s DOROTHY,ANT OINETTE D 02/18 [place] [facility] [place] [facility] PSYTX W PT 45 MINUTES 51124-7.61 [id number] Diagnos is: ICD-10- CM F43.12 Post-tr aumatic stress disorde r, Inna Napoles M 02/24 [place] [facility] [place] [facility] PSYTX W PT 45 MINUTES 50606-0.61 [id number] Diagnos is: ICD-10- CM F43.12 Post-tr aumatic stress disorde r, Inna Napoles M 03/02 [facility] [place] [facility] OFFICE O/P [place] 60 MIN 93451-1.61 [id number] Diagnos is: ICD-10- CM F32.9 Major depress yashira disorde r, single episode , unspeci fied ROHIT,THERON N L 03/03 [facility] [place] [facility] 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/ M 99952-1.61 [id number] Diagnos is: ICD-10- CM F43.12 Post-tr aumatic stress disorde r, Inna Napoles M 03/10 [facility] HC PRO PHONE CALL 5-10 MIN 06100-2.61 [id number] Diagnos is: ICD-10- CM F43.10 Post-tr aumatic stress disorde r, unspeci fied JANELLE CARDOZA A 03/11 [facility] [place] [facility] Outpatient Encounter [id number] 03/15 [place] 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/ M 17100-0.61 [id number] Diagnos is: ICD-10- CM F43.12 Post-tr aumatic stress disorde r, chronic Inna LOPEZ 03/24 [facility] Outpatient Encounter [id number] HUGO CUETO 03/24 [facility] PSYCH DIAGNOSTIC EVALUATION [id number] Diagnos is: ICD-10- CM F32.9 Major depress yashira disorde r, single episode , unspeci fied KUSH,HA HEW E 03/25 [facility] Outpatient Encounter [id number] GHAZALAInna GALAN SHAYNAEM Loving 03/30 [facility] 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/ M 94078-2.61 [id number] Diagnos is: ICD-10- CM F43.12 Post-tr aumatic stress disorde r, Inna Napoles M 04/05 [facility] Outpatient Encounter [id number] 04/06 [facility] 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/ M 36729-7.61 [id number] Diagnos is: ICD-10- CM F51.5 Nightma re disorde r JANELLE CARDOZA 04/09 [facility] PSYCL TST EVAL PHYS/QHP 1ST [id number] [id number] Diagnos is: ICD-10- CM F43.12 Post-tr aumatic stress disorde r, chronic CHARLENE CURRIET HEW E 04/09 [facility] PSYTX W PT 45 MINUTES 74920-5.61 [id number] Diagnos is: ICD-10- CM F43.12 Post-tr aumatic stress disorde r, nIna Napoles M 04/12 [facility] OFFICE O/P EST HI 40 MIN 03310-9.61 [id number] Diagnos is: ICD-10- CM F32.9 Major depress yashira disorde r, single episode , unspeci fied YOHANA GRACIA CARDENAS D 04/19 [facility] Outpatient Encounter 75340-7.61 [id number] 04/19 [facility] BREATHING CAPACITY TEST 69086-1.61 [id number] Diagnos is: ICD-10- CM Z13.83 Encount er for screeni ng for respira tory disorde r NEC MELANI MUJICA A M 04/19 [facility] [place] [facility] BREATHING CAPACITY TEST 81104-6.61 [id number] Diagnos is: ICD-10- CM R06.00 Dyspnea , unspeci fied HENRY FERNANDEZ E 04/19 [place] [facility] 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/ M 16183-5.61 [id number] Diagnos is: ICD-10- CM F51.5 Nightma re disorde r JANELLE CARDOZA TEN A 04/20 [facility] [place] [facility] Outpatient Encounter [id number] [id number] 04/20 [place] [facility] [place] [facility] Outpatient Encounter 86819-2.61 [id number] 04/21 [place] [facility] [place] [facility] Outpatient Encounter 46664-5.61 [id number] 04/21 [place] Outpatient Encounter 89490-8.61 [id number] 04/26 [facility] 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/ M 62770-7.61 [id number] Diagnos is: ICD-10- CM F51.5 Nightma re disorde r JANELLE CARDOZA TEN A 04/27 [facility] OFFICE O/P EST HI 40 MIN 95112-1.61 [id number] Diagnos is: ICD-10- CM F32.9 Major depress yashira disorde r, single episode , unspeci THERON Barboza L 04/28 [facility] [place] [facility] Outpatient Encounter [id number] [id number] 04/30 [place] [facility] [place] [facility] Outpatient Encounter 06046-7.61 [id number] YOAN KESSLER M 04/30 [place] [facility] [place] [facility] Outpatient Encounter 00630-1.61 [id number] YOAN KESSLER M 04/30 [place] [facility] [place] [facility] Outpatient Encounter [id number] [id number] Inna HOPKINS L 05/05 [place] [facility] [place] [facility] Outpatient Encounter 74609-5.61 [id number] 05/06 [place] [facility] PSYTX W PT 45 MINUTES 41246-3.61 [id number] Diagnos is: ICD-10- CM F43.12 Post-tr aumatic stress disorde r, chronic Inna LOPEZ M 05/11 [facility] 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/ M 65389-7.61 [id number] Diagnos is: ICD-10- CM F51.5 Nightma re disorde r JANELLE CARDOZA A 05/11 [facility] [place] [facility] Outpatient Encounter 99424-6.61 [id number] 05/14 [place] [facility] [place] [facility] Outpatient Encounter [id number] [id number] 05/17 [place] [facility] 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/ M 81208-6.61 [id number] Diagnos is: ICD-10- CM F51.5 Nightma re disorde r JANELLE CARDOZA A 10/29 /2024 [facility] [place] [facility] OFFICE O/P EST MOD 30 MIN 87429-9.61 [id number] Diagnos is: ICD-10- CM R19.7 Diarrhe a, unspeci Taylor Rios R 05/18 [place] [facility] PSYTX W PT 45 MINUTES 09096-3.61 [id number] Diagnos is: ICD-10- CM F43.12 Post-tr aumatic stress disorde r, chronic Inna LOPEZ M 05/25 [facility] PSYTX W PT 45 MINUTES 07333-2.61 [id number] Diagnos is: ICD-10- CM F43.12 Post-tr aumatic stress disorde r, Inna Napoles M 06/02 [facility] [place] [facility] Outpatient Encounter [id number] [id number] 06/03 [place] [facility] [place] [facility] Outpatient Encounter [id number] [id number] 06/07 [place] [facility] OFFICE O/P EST MOD 30 MIN 81846-4.61 [id number] Diagnos is: ICD-10- CM F43.12 Post-tr aumatic stress disorde r, chronic TANSEY,THERON N L 06/09 [facility] [place] [facility] Outpatient Encounter 07821-3.61 [id number] 06/11 [place] [facility] [place] [facility] Outpatient Encounter 71637-8.61 [id number] Carlos NATION 06/11 [place] [facility] [place] [facility] Outpatient Encounter 70501-4.61 [id number] SYSTEM,CIS -ARK 06/19 [place] [facility] [place] [facility] Outpatient Encounter [id number] [id number] SYSTEM,CIS -ARK 06/20 [facility] [place] [facility] EMERGENCY DEPT VISIT [facility] 32684-5.61 [id number] Diagnos is: ICD-10- CM K85.90 Acute pancrea titis without necrosi s or infecti on, unsSE MEENA Bro 06/20 [facility] [place] [facility] Inpatient Encounter [id number] [id number] Admit Reason: ACUTE PANCREA TITIS Carlos WELCH 06/20 Discharge from inpatient treatment to the Service Connected (OPT-[place]) rolls. [facility] [place] [facility] Inpatient Encounter [id number] [id number] 06/20 [facility] [place] [facility] Inpatient Encounter 08418-6.61 [id number] SYSTEM,CIS -ARK 06/21 [facility] [place] [facility] Inpatient Encounter 39444-6.61 [id number] 06/21 [facility] [place] [facility] Inpatient Encounter 97286-6.61 [id number] 06/21 [facility] [place] [facility] Inpatient Encounter 67309-7.61 [id number] 06/21 [facility] [place] [facility] OFFAL BALER QUALITY CHECKER INDIVIDU 57069-0.61 [id number] Diagnos is: ICD-10- CM Z71.81 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 LOLA Blanc 06/21 [facility] [place] [facility] Inpatient Encounter [id number] [id number] 06/21 [facility] [place] [facility] Inpatient Encounter 84822-8.61 [id number] 06/21 [facility] [place] [facility] Inpatient Encounter [id number] [id number] 06/21 [facility] [place] [facility] Inpatient Encounter [id number] [id number] 06/22 [place] [facility] [place] [facility] Inpatient Encounter [id number] [id number] SYSTEM,CIS -ARK 06/22 [place] [facility] [place] [facility] Inpatient Encounter 34006-2.61 [id number] 06/22 [place] [facility] [place] [facility] Inpatient Encounter 70078-2.61 [id number] 06/22 [place] [facility] [place] [facility] Inpatient Encounter 51899-1.61 [id number] 06/22 [place] [facility] [place] [facility] Inpatient Encounter [id number] [id number] SYSTEM,CIS -ARK 06/23 [place] [facility] [place] [facility] Inpatient Encounter [id number] [id number] 06/23 [place] [facility] [place] [facility] Inpatient Encounter [id number] [id number] 06/23 [facility] [place] [facility] Inpatient Encounter [id number] [id number] 06/23 [facility] [place] [facility] INPT/ED TELECONSUL T50 [id number] [id number] Diagnos is: ICD-10- CM I63.9 Cerebra l infarct ion, unspeci radhaed JEFFREY LALA 06/23 [facility] [place] [facility] Inpatient Encounter [id number] [id number] 06/23 [facility] [place] [facility] Inpatient Encounter [id number] [id number] 06/23 [place] [facility] [place] [facility] Inpatient Encounter 27845-5.61 [id number] 06/23 [place] [facility] [place] [facility] Inpatient Encounter [id number] [id number] 06/23 [place] [facility] [place] [facility] Inpatient Encounter 45688-2.61 [id number] 06/24 [place] [facility] [place] [facility] Inpatient Encounter [id number] [id number] SYSTEM,CIS -ARK 06/24 [place] [facility] [place] [facility] Inpatient Encounter [id number] [id number] 06/24 [place] [facility] [place] [facility] Inpatient [facility]counter [id number] [id number] 06/24 [facility] IP/OBS CONSLTJ NEW/EST HI 80 91991-7.61 [id number] Diagnos is: ICD-10- CM G57.12 Meralgi a paresth etica, left lower limb DENT,GUERREROYAMILEX CONTRERAS 06/24 [facility] Inpatient Encounter [id number] [id number] 06/24 [facility] PT EVAL MOD COMPLEX 30 MIN [id number] [id number] Diagnos is: ICD-10- CM R53.1 Weaknes s INTERRANTE ,CASSANDRA 06/24 [facility] OT EVAL LOW COMPLEX 30 MIN 76509-5.61 [id number] Diagnos is: ICD-10- CM Z73.6 Limitat ion of activit ies due to disabil THERESA Crespo 06/24 [facility] [place] [facility] En[facility] [id number] [id number] 06/24 [place] [facility] [place] [facility] En[facility] [id number] [id number] SYSTEM,CIS -ARK 06/25 [place] [facility] [place] [facility] En[facility] [id number] [id number] 06/25 [place] [facility] [place] [facility] SELF CARE MNGMENT TRAINING 94542-5.61 [id number] Diagnos is: ICD-10- CM R53.1 CASSANDRA Ashley 06/25 [place] [facility] [place] [facility] Encounter [id number] [id number] 06/25 [place] [facility] [place] [facility] En[place] [id number] [id number] 06/25 [place] [facility] [place] [facility] [id number] [id number] 06/25 [place] [facility] [place] [facility] Encounter [id number] [id number] 06/26 [place] [facility] [place] [facility] En[facility] [id number] [id number] SYSTEM,CIS -ARK 06/26 [place] [facility] [place] [facility] En[facility] [id number] [id number] 06/26 [place] [facility] [place] [facility]counter [id number] [id number] 06/26 [place] [facility] [place] [facility] En[facility] 83197-5.61 [id number] 06/26 [place] [facility] [place] [facility] Encounter [id number] [id number] 06/27 [place] [facility] [place] [facility] En[facility] 70196-7.61 [id number] SYSTEM,CIS -ARK 06/27 [place] [facility] [place] [facility] Encounter [id number] [id number] 06/27 [place] [facility] [place] [facility] En[facility] [id number] [id number] 06/27 [place] [facility] [place] [facility] Encounter [id number] [id number] 06/27 [place] [facility] [place] [facility] Encounter 75648-6.61 [id number] 06/27 [place] [facility] [place] [facility] En[place] 54782-8.61 [id number] SYSTEM,CIS -ARK 06/28 [place] [facility] [place] [facility] En[facility] [id number] [id number] 06/28 [place] [facility] [place] [facility] En[facility] [id number] [id number] 06/28 [place] [facility] [place] [facility] En[facility] [id number] [id number] 06/28 [place] [facility] [place] [facility] Encounter [id number] [id number] 06/28 [place] [facility] [place] [facility] In[facility] Encounter [id number] [id number] 06/29 [place] [facility] [place] [facility] Encounter [id number] [id number] SYSTEM,CIS -ARK 06/29 [place] [facility] [place] [facility] THERAPEUTI C EXERCISES 26145-3.61 [id number] Diagnos is: ICD-10- CM R53.1 Weaknes s WINTHROP,R ACHEL T 06/29 [place] [facility] [place] [facility] Inpatient Encounter [id number] [id number] 06/29 [place] [facility] [place] [facility] Inpatient Encounter [id number] [id number] 06/29 [place] [facility] [place] [facility] Inpatient Encounter [id number] [id number] 06/29 [place] [facility] [place] [facility] Inpatient Encounter [id number] [id number] 06/29 [place] [facility] [place] [facility] Inpatient Encounter [id number] [id number] SYSTEM,CIS -ARK 06/30 [place] [facility] [place] [facility] Inpatient Encounter [id number] [id number] 06/30 [place] [facility] [place] [facility] SELF CARE MNGMENT TRAINING 46635-2.61 [id number] Diagnos is: ICD-10- CM Z73.6 Limitat ion of activit ies due to disabil RADHA Vale 06/30 [place] [facility] [place] [facility] Inpatient Encounter [id number] [id number] 06/30 [place] [facility] [place] [facility] THERAPEUTI C EXERCISES 69612-8.61 [id number] Diagnos is: ICD-10- CM R53.1 Weaknes s WINTHROP,R ACHEL T 06/30 [place] [facility] [place] [facility] Inpatient Encounter [id number] [id number] 06/30 [place] [facility] [place] [facility] Inpatient Encounter [id number] [id number] 06/30 [place] [facility] [place] [facility] Inpatient Encounter 82046-3.61 [id number] 07/01 [place] [facility] [place] [facility] Inpatient Encounter [id number] [id number] SYSTEM,CIS -ARK 07/01 [place] [facility] [place] [facility] Inpatient Encounter [id number] [id number] 07/01 [place] [facility] [place] [facility] Inpatient Encounter [id number] [id number] 07/01 [place] [facility] [place] [facility] Inpatient Encounter [id number] [id number] 07/01 [place] [facility] [place] [facility] HC PRO PHONE CALL 5-10 MIN [id number] [id number] Diagnos is: ICD-10- CM R10.9 Unspeci fied abdomin al pain HAECHERL,N ICOLE M 07/01 [place] [facility] [place] [facility] OFFAL BALER QUALITY CHECKER INDIVIDU 02480-0.61 [id number] Diagnos is: ICD-10- CM Z71.81 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 JULIOCESAR Lima 07/01 [place] [facility] [place] [facility] HC PRO PHONE CALL 5-10 MIN [id number] [id number] Diagnos is: ICD-10- CM R10.84 General ized abdomin al pain HAECHERL,N ICOLE M 07/01 [place] [facility] [place] [facility] Inpatient Encounter [id number] [id number] 07/01 [place] [facility] [place] [facility] Inpatient Encounter [id number] [id number] 07/01 [place] [facility] [place] [facility] Inpatient Encounter [id number] [id number] SYSTEM,CIS -ARK 07/02 [place] [facility] [place] [facility] Inpatient Encounter [id number] [id number] 07/02 [place] [facility] [place] [facility] FLUOROGUID E FOR SPINE INJECT 78459-2.61 [id number] Diagnos is: ICD-10- CM R10.10 Upper abdomin al pain, unspeci HUBER Weinberg 07/02 [place] [facility] [place] [facility] Inpatient Encounter [id number] [id number] 07/02 [place] [facility] [place] [facility] Inpatient Encounter [id number] [id number] 07/02 [place] [facility] [place] [facility] Inpatient Encounter [id number] [id number] 07/02 [place] [facility] [place] [facility] Inpatient Encounter [id number] [id number] 07/02 [place] [facility] [place] [facility] Outpatient Encounter [id number] [id number] 07/02 [place] [facility] [place] [facility] Inpatient Encounter [id number] [id number] 07/02 [place] [facility] [place] [facility] Outpatient Encounter 53855-3.61 [id number] 07/02 [place] [facility] [place] [facility] Outpatient Encounter 72633-3.61 [id number] GERALD MARCUM 07/05 [place] [facility] PRO PHONE CALL 11-20 MIN 11170-6.61 [id number] Diagnos is: ICD-10- CM K86.1 Other chronic pancrea titis GERALD MARCUM 07/05 [facility] [place] [facility] Outpatient Encounter [id number] [id number] GERALD MARCUM 07/05 [place] [facility] [place] [facility] Outpatient Encounter [id number] [id number] 07/05 [place] [facility] [place] [facility] OFFICE O/P EST LOW 20 MIN [id number] [id number] Diagnos is: ICD-10- CM K85.80 Other acute pancrea titis without necrosi s or infecti on ALEXANDRI[place],Taylor LAUREEN R 07/06 [place] [facility] [place] [facility] OFFICE O/P EST MOD 30 MIN 13591-9.61 [id number] Diagnos is: ICD-10- CM K86.1 Other chronic pancrea titis Inna BOUDREAUX 07/07 [place] [facility] PSYTX W PT 45 MINUTES 38981-7.61 [id number] Diagnos is: ICD-10- CM F43.12 Post-tr aumatic stress disorde r, chronic Inna LOPEZ 07/07 [facility] [place] [facility] Outpatient Encounter [id number] [id number] Bhavya GARAY 07/08 [place] [facility] [place] [facility] Outpatient Encounter [id number] [id number] 07/09 [place] [facility] OFFICE O/P EST HI 40 MIN [id number] [id number] Diagnos is: ICD-10- CM F43.12 Post-tr aumatic stress disorde r, chronic THERON BEE 07/12 [facility] [place] [facility] Outpatient Encounter [id number] [id number] 07/15 [place] [facility] [place] [facility] Outpatient Encounter [id number] [id number] SYSTEM,CIS -ARK 07/15 [facility] [place] [facility] Inpatient Encounter [id number] [id number] Inder MALDONADO 07/15 [place] [facility] [place] [facility] Inpatient Encounter 29783-3.61 [id number] 07/15 [place] [facility] [place] [facility] Inpatient Encounter [id number] [id number] 07/15 [place] [facility] [place] [facility] Inpatient Encounter [id number] [id number] Admit Reason: PANCREA DARRIUS TEAM,MED [facility] 07/15 Discharge from inpatient treatment to the [employer] ([place]) rolls. [facility] [place] [facility] Inpatient Encounter [id number] 07/15 [facility] [place] [facility] Inpatient [facility]counter [id number] 07/15 [facility] [place] [facility] Inpatient [facility]counter [id number] 07/15 [facility] [place] [facility] Inpatient Encounter [id number] 07/15 [facility] [place] [facility] Inpatient Encounter [id number] SYSTEM,[facility] -[facility] 07/16 [facility] [place] [facility] Inpatient Encounter [id number] 07/16 [facility] [place] [facility] OFFAL BALER QUALITY CHECKER INDIVIDU [id number] Diagnos is: ICD-10- CM Z71.81 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 Bhavya Bey 07/16 [place] [facility] [place] [facility] En[facility] [id number] 07/16 [facility] [place] [facility] En[facility] [id number] 07/16 [place] [facility] [place] [facility] [id number] 07/16 [place] [facility] [place] En[facility] [id number] SYSTEM,[facility] 07/17 [place] [facility] [place] [id number] 07/17 [facility] [place] [id number] 07/17 [facility] [place]counter [id number] 07/17 [place] [facility] [place] En[facility] [id number] SYSTEM,[facility] 07/18 [place] [facility] [place] En[facility] [id number] 07/18 [place] [facility] [place] [id number] 07/18 [place] [facility] [place] [facility] [id number] 07/18 [place] [facility] [place] [facility] En[facility] [id number] [facility] 07/19 [place] [facility] [place] [facility] En[facility] [id number] 07/19 [place] [facility] [place] [facility] In[place] Encounter [id number] 07/19 [place] [facility] [place] [facility] QNHP OL DIG ASSMT&MGMT 5-10 [id number] Diagnos is: ICD-10- CM E63.9 Nutriti onal deficie ncy, unspeci fied DEAN OROSCO 07/19 [place] [facility] [place] [facility] In[place] Encounter [id number] 07/19 [place] [facility] [place] [facility] In[place] Encounter [id number] 07/20 [place] [facility] [place] [facility] In[place] Encounter [id number] SYSTEM,[facility] 07/20 [place] [facility] [place] [facility] In[place] Encounter [id number] 07/20 [place] [facility] [place] [facility] QNHP OL DIG ASSMT&MGMT 5-10 [id number] Diagnos is: ICD-10- CM R10.9 Unspeci fied abdomin al pain DEAN OROSCO 07/20 [place] [place] [facility] In[place] Encounter [id number] 07/20 [place] [facility] [place] [facility] Inpatient Encounter [id number] 07/20 [facility] [place] [facility] Inpatient Encounter [id number] 07/20 [place] [facility] [place] [facility] Outpatient Encounter [id number] [id number] 07/22 [facility] PSYTX W PT 45 MINUTES 57142-4.61 [id number] Diagnos is: ICD-10- CM F43.12 Post-tr aumatic stress disorde r, Inna Napoles M 07/22 [facility] PH1 ASSMT&MGMT NQHP 11-20 56569-4.61 [id number] Diagnos is: ICD-10- CM K86.1 Other chronic pancrea darrius GERALD MARCUM 07/22 [facility] [place] [facility] Outpatient Encounter [id number] 07/22 [place] [facility] [place] [facility] Out[facility] Encounter [id number] 07/22 [place] [facility] [place] [facility] Outpatient Encounter [id number] 07/26 [place] [facility] [place] [facility] ACUP / WO ESTIM 1ST 15 MIN [id number] [id number] Diagnos is: ICD-10- CM G89.29 Other chronic pain MARLO ESCAMILLA 07/26 [place] [facility] [place] [facility] Outpatient Encounter [id number] 07/29 [place] [facility] [place] [facility] Outpatient Encounter [id number] [id number] 07/30 [place] [facility] [place] [facility] Outpatient Encounter [id number] [id number] Inder MALDONADO 08/02 [place] [facility] MED NUTRITION INDIV SUBSEQ [id number] [id number] Diagnos is: ICD-10- CM K86.1 Other chronic pancrea darrius GABRIELA ESPINOSA 08/03 [facility] [place] [facility] Outpatient Encounter [id number] 08/04 [place] [facility] [place] [facility] EMERGENCY DEPT VISIT LOW MDM 83607-8.61 [id number] Diagnos is: ICD-10- CM R10.13 Epigast milan pain Isaac HOWARD 08/04 [facility] [place] [facility] Outpatient Encounter [id number] [id number] SYSTEM,CIS -ARK 08/04 [place] [facility] [place] [facility] Inpatient Encounter [id number] Admit Reason: ACUTE ON CHRONIC PANCREA CHARLES WILKES 08/04 Regular discharge from inpatient treatment. [facility] [place] [facility] Inpatient Encounter [id number] [id number] GABRIELA JARQUIN JR 08/04 [place] [facility] [place] [facility] Inpatient Encounter [id number] [id number] GABRIELA JARQUIN JR 08/04 [facility] [place] [facility] Inpatient Encounter [id number] [id number] BOZENA PATEL 08/04 [facility] [place] [facility] Inpatient Encounter [id number] [id number] SYSTEM,CIS -ARK 08/04 [place] [facility] [place] [facility] Inpatient Encounter [id number] [id number] ANKUR BROOKE 08/04 [facility] [place] [facility] Inpatient Encounter [id number] [id number] SYSTEM,CIS -ARK 08/05 [facility] [place] [facility] Inpatient Encounter [id number] [id number] KEVIN CANTU 08/05 [place] [facility] [place] [facility] Inpatient Encounter [id number] [id number] 08/05 [place] [facility] [place] [facility] Inpatient Encounter [id number] [id number] GABRIELA JARQUIN JR 08/05 [place] [facility] [place] [facility] Outpatient Encounter [id number] [id number] 08/10 [place] [facility] [place] [facility] ACUP 1/> WO ESTIM 1ST 15 MIN [id number] [id number] Diagnos is: ICD-10- CM G89.29 Other chronic pain MARLO ESCAMILLA A 08/11 [place] [facility] NUTR[facility] INDIV SUBSEQ [id number] [id number] Diagnos is: ICD-10- CM K86.1 Other chronic pancrea raoloren GABRIELA ESPINOSA N 08/12 [facility] [place] [facility] Outpatient Encounter [id number] [id number] GABRIELA ESPINOSA N 08/12 [place] [facility] [place] [facility] Outpatient Encounter [id number] [id number] GABRIELA ESPINOSAUELINE N 08/12 [place] [facility] [place] [facility] Outpatient Encounter [id number] [id number] GERALD MARCUM 08/13 [place] [facility] [place] [facility] Outpatient Encounter [id number] [id number] GERALD MARCUM 08/13 [place] [facility] [place] [facility] Outpatient Encounter [id number] [id number] GERALD MARCUM 08/16 [place] [facility] [place] [facility] Outpatient Encounter [id number] [id number] GERALD MARCUM 08/16 [place] [facility] [place] [facility] Outpatient Encounter [id number] [id number] 08/17 [place] [facility] PSYTX W PT 45 MINUTES 35157-4.61 [id number] 45 Diagnos is: ICD-10- CM F43.12 Post-tr aumatic stress disorde rmaggie J ESSICA M 08/18 [facility] OFFICE O/P EST MOD 30 MIN 79590-3.61 [id number] 45 Diagnos is: ICD-10- CM F41.1 General ized anxiety disorde r YOHANA GRACIA 08/18 [facility] [place] [facility] Outpatient Encounter [id number] [id number] 08/20 [place] [facility] [place] [facility] Outpatient Encounter [id number] [id number] 08/23 [place] [facility] [place] [facility] ACUP WO ESTIM 1ST 15 MIN [id number] [id number] Diagnos is: ICD-10- CM G89.29 Other chronic pain MARLO ESCAMILLA 08/24 [place] [facility] NUTRITION INDIV SUBSEQ 06168-2.61 [id number] Diagnos is: ICD-10- CM K86.1 Other chronic pancrea GABRIELA [place] 08/26 [facility] PSYTX W PT 45 MINUTES 17810-4.61 [id number] 98 Diagnos is: ICD-10- CM F43.12 Post-tr aumatic stress disorde r, Inna Napoles M 09/02 [facility] [place] [facility] Outpatient Encounter [id number] [id number] 09/08 [place] [facility] [place] [facility] Outpatient Encounter [id number] 09/13 [place] [facility] [place] [facility] ACUP WO ESTIM 1ST 15 MIN [id number] [id number] Diagnos is: ICD-10- CM G89.29 Other chronic pain MARLO ESCAMILLA A 09/15 [place] [facility] PSYTX W PT 45 MINUTES 79206-9.61 [id number] Diagnos is: ICD-10- CM F43.12 Post-tr aumatic stress disorde r, Inna Napoles 09/15 [facility] [place] [facility] Outpatient Encounter [id number] [id number] TRIXIEGERALD Inder 09/16 [place] [facility] [place] [facility] Outpatient Encounter [id number] [id number] TRIXIEGERALD CHANTALE Inder 09/16 [place] [facility] PSYTX W PT 45 MINUTES 01250-9.61 [id number] 16 Diagnos is: ICD-10- CM F43.12 Post-tr aumatic stress disorde r, Inna Napoles 09/29 [facility] [place] [facility] Outpatient Encounter [id number] [id number] 09/30 [place] [facility] [facility] NUTR[facility] INDIV SUBSEQ [id number] [id number] Diagnos is: ICD-10- CM K86.1 Other chronic pancrea GABRIELA [place] N 10/05 [facility] [place] [facility] ACUP / WO ESTIM 1ST 15 MIN [id number] [id number] Diagnos is: ICD-10- CM G89.29 Other chronic pain MARLO ESCAMILLA 10/15 [place] [facility] PSYTX W PT 45 MINUTES 86345-4.61 [id number] 08 Diagnos is: ICD-10- CM F43.12 Post-tr aumatic stress disorde r, Inna Napoles 10/18 [facility] [place] [facility] OFFICE O/P NEW HI 60 MIN [id number] [id number] Diagnos is: ICD-10- CM R53.82 Chronic fatigue , unspeci fied CK PEREZ 10/19 [place] [facility] [place] [facility] Outpatient Encounter [id number] 10/19 [place] [facility] [place] [facility] Outpatient Encounter [id number] [id number] Diagnos is: ICD-10- CM G47.9 Sleep disorde r, unspeci NIMA Staples 10/20 [facility] OFFICE O/P EST MOD 30 MIN 91364-8.61 [id number] 30 Diagnos is: ICD-10- CM F32.9 Major depress yashira disorde r, single episode , unspeci THERON Barboza N L 10/25 [facility] PSYTX W PT 45 MINUTES 49495-0.61 [id number] 75 Diagnos is: ICD-10- CM F43.12 Post-tr aumatic stress disorde r, Inna Napoles 11/03 [facility] [place] [facility] Outpatient Encounter [id number] [id number] 11/12 [place] [facility] Outpatient Encounter 24157-8.61 [id number] 57 11/17 [facility] [place] [facility] Outpatient Encounter [id number] [id number] 11/18 [place] [facility] PSYTX W PT 45 MINUTES 90172-6.61 [id number] 76 Diagnos is: ICD-10- CM F43.12 Post-tr aumatic stress disorde r, Inna Napoles 11/25 [facility] PSYTX W PT 45 MINUTES 85149-0.61 [id number] 91 Diagnos is: ICD-10- CM F43.12 Post-tr aumatic stress disorde r, Inna Napoles 12/01 [facility] [place] [facility] PSYCL/[place] [id number] [id number] Diagnos is: ICD-10- CM F43.12 Post-tr aumatic stress disorde r, chronic CZIPRHARPREET Boyd ARINA L 12/08 [facility] PSYTX W PT 45 MINUTES 42492-7.61 [id number] 86 Diagnos is: ICD-10- CM F43.12 Post-tr aumatic stress disorde r, chronic Inna LOPEZ M 12/15 [facility] Encounter [id number] [id number] 12/22 [facility] OFFICE O/P EST HI 40 MIN 84251-6.61 [id number] 09 Diagnos is: ICD-10- CM F32.9 Major depress yashira disorde r, single episode , unspeci fiTHERON Villarreal N L 12/22 [facility] Outpatient Encounter [id number] [id number] 12/23 [facility] Out[facility] Encounter [id number] [id number] 12/27 [facility] [employer] 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 [id number] [id number] Diagnos is: ICD-10- CM G47.9 Sleep disorde r, unspeci fiFELIPE Richardson T 12/28 [facility] OFF/OP CONSLTJ NEW/EST HI 55 48159-9.61 [id number] 41 Diagnos is: ICD-10- CM R41.89 Oth symptom s and signs w cogniti ve functio ns and awarene ss Mindi CONROY S 12/29 [facility] Out[facility] Encounter [id number] [id number] 01/04 [place] [facility] [place] [facility] Outpatient Encounter [id number] [id number] SHADY SMILEY 01/07 [place] [facility] [facility] [place] [facility] Outpatient Encounter [id number] SYEDA HALL 01/07 [place] [facility] [place] [facility] Outpatient Encounter [id number] SYEDA HALL 01/07 [place] [facility] [facility] [place] [facility] Outpatient [facility]counter [id number] 01/10 [place] [facility] [facility] [place] [facility] Outpatient [facility]counter [id number] GERALD MARCUM 01/11 [place] [facility] [place] [facility] Outpatient Encounter [id number] GERALD MARCUM 01/11 [place] [facility] PSYTX W PT 45 MINUTES 97655-8.61 [id number] 67 Diagnos is: ICD-10- CM F43.12 Post-tr aumatic stress disorde r, Inna Napoles 01/17 [facility] [place] [facility] 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 51609-5.61 [id number] Diagnos is: ICD-10- CM R06.83 Snoring RAQUEL PABLOCARLOSA 01/17 [place] [facility] [place] [facility] Out[place] Encounter [id number] [id number] 01/19 [place] [facility] [place] [facility] Out[facility] Encounter [id number] [id number] 01/24 [place] [facility] [place] [facility] Out[facility] Encounter [id number] [id number] 01/27 [place] [facility] W PT 45 MINUTES 41645-3.61 [id number] 66 Diagnos is: ICD-10- CM F43.12 Post-tr aumatic stress disorde r, Inna Napoles 02/01 [facility] OFF/OP EST MAY X REQ PHY/QHP 59760-9.61 [id number] 18 Diagnos is: ICD-10- CM R30.0 Dysuria SYEDA HALL J 02/01 [facility] Out[facility] Encounter [id number] SYEDA HALL J 02/04 [place] [facility] Encounter [id number] SYEDA HALL J 02/04 [place] [facility] ORAL FUNCTION THERAPY [id number] [id number] Diagnos is: ICD-10- CM F41.1 General ized anxiety disorde r RACHANA KULKARNI P 02/08 [facility] PH1 ASSMT&MGMT NQHP 11-20 73502-1.61 [id number] Diagnos is: ICD-10- CM G47.30 Sleep apnea, unspeci fied DILLE,PATRICK ICA S 02/11 [facility] Outpatient Encounter [id number] 02/22 [facility] OFF/OP CONSLTJ NEW/EST SF 20 [id number] [id number] Diagnos is: ICD-10- CM E66.09 Other obesity due to excess calorie Lucrecia Chun 02/23 [facility] PSYTX W PT 45 MINUTES 85976-7.61 [id number] 63 Diagnos is: ICD-10- CM F43.12 Post-tr aumatic stress disorde maggie drew J ESSICA M 02/23 [facility] NRPSYC TST EVAL PHYS/QHP 1ST 54356-4.61 [id number] Diagnos is: ICD-10- CM Z71.1 Person w feared hlth complai nt in whom no diagnos is is made ARLENHARPREET ARINA Loving 02/24 [place] [facility] [place] [facility] Out[place] Encounter [id number] 02/25 [place] [facility] [place] [facility] Outpatient Encounter [id number] BELKYS MOBLEY 03/01 [place] [facility] [place] [facility] Outpatient Encounter [id number] 03/04 [place] [facility] [place] [facility] Outpatient Encounter [id number] 03/07 [place] [facility] [place] [facility] Outpatient Encounter [id number] 03/08 [place] [facility] [place] [facility] Outpatient Encounter [id number] 03/18 [facility] PSYTX W PT 45 MINUTES 88772-0.61 [id number] Diagnos is: ICD-10- CM F43.12 Post-tr aumatic stress disorde r, Inna Napoles M 03/23 [facility] [place] [facility] Outpatient Encounter [id number] 03/24 [place] [facility] [place] [facility] Outpatient Encounter [id number] Diagnos is: ICD-10- CM A69.20 Lyme disease , unspeci MARZENA Granados A 03/25 [facility] [place] [facility] Outpatient Encounter [id number] GÓMEZ ANDREW 03/25 [facility] Outpatient Encounter [id number] [id number] 80 03/30 [facility] OFFICE O/P EST HI 40 MIN 40484-9.61 [id number] 07 Diagnos is: ICD-10- CM A69.20 Lyme disease , unspeci fied CHANTELLAURELMindi FIGUEROA S 04/27 [facility] PSYTX W PT 45 MINUTES 75785-7.61 [id number] 12 Diagnos is: ICD-10- CM F43.12 Post-tr aumatic stress disorde r, chronic [place],J GHASSANICA M 04/27 [facility] [place] [facility] Outpatient Encounter [id number] [id number] 05/04 [place] [facility] [place] [facility] Outpatient Encounter [id number] [id number] 05/04 [place] [facility] OFFICE O/P EST HI 40 MIN 03859-9.61 [id number] 07 Diagnos is: ICD-10- CM Z00.00 Encntr for general adult medical exam w/o abnorma l finding s YOHANA GRACIA 05/04 [facility] [place] [facility] Outpatient Encounter [id number] 05/12 [place] [facility] [place] [facility] Out[facility] Encounter [id number] [id number] MICKEY WIGGINS S 05/13 [place] [facility] [facility] [place] [facility] Out[facility] Encounter [id number] [id number] 05/15 [place] [facility] [place] [facility] Outpatient Encounter [id number] [id number] 05/17 [place] [facility] [place] [facility] Out[facility] Encounter [id number] [id number] 05/17 [place] [facility] [facility] [place] [facility] Outpatient Encounter [id number] [id number] GERALD MARCUM 05/17 [place] [facility] OFFICE O/P EST MOD 30 MIN 39309-8.61 [id number] 15 Diagnos is: ICD-10- CM Z12.4 Encount er for screeni ng for maligna nt neoplas m of cervix GRACIAYOHANA THERESA Wright 05/30 [facility] HEARING AID REPAIR/MOD IFYING 39325-8.61 [id number] Diagnos is: ICD-10- CM Z46.1 Encount er for fitting and adjustm ent of hearing aid LOR CHAMPAGNE 06/01 [facility] [place] [facility] Outpatient Encounter [id number] [id number] 06/02 [facility] OFFICE O/P EST MOD 30 MIN 44825-7.61 [id number] Diagnos is: ICD-10- CM K86.1 Other chronic pancrea AYALA Maria 06/06 [facility] Out[facility] Encounter [id number] [id number] 06/08 [facility] Outpatient Encounter [id number] [id number] LUZMAJOANNA ROSALIA Singer 06/08 [facility] [place] [facility] Outpatient Encounter [id number] [id number] JACLYN DONALDSON 06/08 [facility] Outpatient Encounter [id number] [id number] Diagnos is: ICD-10- CM Z12.11 Encount er for screeni ng for maligna nt neoplas m of colon ALISIA ADAMS 06/10 [facility] [place] [facility] Outpatient Encounter [id number] [id number] TERESA DELVALLE 06/17 [facility] [place] [facility] Outpatient Encounter [id number] [id number] 06/22 [facility] [place] [facility] Outpatient Encounter [id number] [id number] 06/27 [facility] Procedures Combined list of: 1) Procedures from Department of Veterans Affairs facilities going back up to thelast 18 months, not all [place] non-surgical procedures are included; 2) All procedures from the Department of Defense facilities. Procedure Procedure Type Code Date Perfomer Comments Sourc e Physician Supervised Ordering / Handling / Fitting Patient Devices Physician Supervised Ordering / Handling / Fitting Patient Devices 45150 7 SARA DIEHL Patient Training And Self-Care Skills Patient Training And Self-Care Skills 99493 7 SARA DIEHL Repair And Refitting Gla es (Not For Aphakia) Repair And Refitting Glasses (Not For Aphakia) 76893 7 FREDERICK MENDOZA Spectacles Services Fitting Monofocal Except For Aphakia Spectacles Services Fitting Monofocal Except For Aphakia 86688 7 FREDERICK MENDOZA Patient Training And Self-Care Skills Patient Training And Self-Care Skills 48928 7 ORTIZ RUTHERFORD Phys Therapy Education Self Care Training - Per 15 Minutes Phys Therapy Education Self Care Training - Per 15 Minutes 60773 7 MARCIE DANG Patient Training And Self-Care Skills Patient Training And Self-Care Skills 70321 7 MARCIE DANG Physician Supervised Ordering / Handling / Fitting Patient Devices Physician Supervised Ordering / Handling / Fitting Patient Devices 61421 7 ESTER CHEUNG Patient Training And Self-Care Skills Patient Training And Self-Care Skills 70050 7 ESTER CHEUNG Spectacles Services Fitting Monofocal Except For Aphakia Spectacles Services Fitting Monofocal Except For Aphakia 11561 7 SUZIE GUERRA Screening Test Of Visual Acuity, Quantitative, Bilateral Screening Test Of Visual Acuity, Quantitative, Bilateral 01651 7 SUZIE GUERRA Determination Of Refractive State Determination Of Refractive State 63411 7 SUZIE GUERRA Ear mold/insert, not disposable, any type Ear mold/insert, not disposable, any type V5264 7 BRANDEN CAREY Audiometry Group Testing Audiometry Group Testing 00524 7 BRANDEN CAREY Physician Supervised Group Educational [...] Tobacco smoking status NHIS PREVIOUS SMOKER 06/08/2025 [facility] CS History of tobacco use VA-TOBACCO USE FO RMER CIGARETTES 05/04/2025 [facility] History of tobacco use VA-TOBACCO QUIT 5 TO < 15 YRS 01/05/2024 [facility] HCS History of tobacco use [facility]-TOBACCO FORMER USER 03/27/2023 [facility] This section is an empty social history section. DoD Plan of Care List of future care activities from Department of 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 Additional future care activities may be listed in the Assessment and Plan section. Date/Time Care Activity Care Activity Detail Facili ty 07/26/2025 AMBULATORY - REHAB MEDICINE AMBULATORY - REHAB MEDICINE [facility] Advance Directives List of completed, amended, or rescinded Advance Directives on record at Department of 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 An actual copy of the Directive is not included. Date Advance Directive Provider Source 01/05/2024 ADVANCE DIRECTIVE DISCUSSION SHAHID [facility]
--- OUTSIDE RECORDS SUMMARY | 2025-07-15 01:59 | XMS_ITS | Clinical Summary ---
Author Organization [facility] Address [address] [place] [address] Care Team Providers Care Vulcanizer Operator Name Role Phone Unknown, Provider Primary Care Provider Unavaila ble Source Comments [facility],non-[facility] Affiliates and Associated Physician Practices is amultiple site organization consisting of ambulatory clinics and hospital sitesin [place], [place], [place] and [place]. This disclosure is being madepursuant to the Care Everywhere program and may not contain all information available regarding this patient. Last updated 18.[facility] Allergies Active AllergyReactionsCriticalityNoted VzfjLkiaqgmwKzldxmivuw75/02/2017Fentanyl 03/22/2017Flu Virus Nuoffjc6503/22/2017 Medications * Be aware that medications may not be up to date on this document. Alwaysverify current medications with the patient. MedicationSigDispense QuantityRefillsLast FilledStart DateEnd DateStatus ondansetron, disintegrating, (ZOFRAN ODT) 4 MG tablet Take 1 Tab by mouth every 6 hours as needed for Nausea/Vomiting Allow tablet to dissolve on the tongue 10 tablet Active Social History Tobacco UseTypesPacks/DayYears UsedDateSmoking Tobacco: NeverSmokeless Tobacco: NeverAlcohol UseStandard Drinks/WeekCommentsNo0 (1 standard drink = 0.6 oz pure alcohol)CommentsUnknownSex and Gender InformationValueDate RecordedSex Assigned at BirthNot on fileLegal WxwKrrilr61/10/2018 5:47 AM CDTGender Identity Not on fileSexual OrientationNot on file Last Filed Vital Signs Vital SignReadingTime TakenCommentsBlood Lxpaaaur747/7109 10:15 AM CDT Mckyv961603/22/2017 12:15 PM OKYWvumisrzohm40.4 ??C (97.6 ??F)03/22/2017 10:15 AM CDTRespiratory Vxym453603/22/2017 10:15 AM CDTOxygen Pbutrrnwgp830%03/22/2017 10:15 AM CDTInhaled Oxygen Concentration--Jzmavc46.5 kg (173 lb)03/22/2017 12:15 PM NTRMwmwsj870.6 cm (5' 6)03/22/2017 12:15 PM CDTBody Mass Index27.92 03/22/2017 12:15 PM CDT Plan of Treatment Health MaintenanceDue DateLast DoneCommentsCOLOGUARD (AGES 45-75) - COLON CA HGXZGONDN97/20/1980COLON GEVVZXMMTA16/20/1980COLONOSCOPY - COLON CA SCREENING 1979CT COLONOGRAPHY - COLON CA GVYBAYDZJ26/20/1980Colorectal Cancer Doudodcso90/20/1980FIT - COLON CA AEPLXTIQY85/20/1980FLEX SIG - COLON CA SCCQXYCTA02/20/1980LIPID BIHDNVL02 1979RHAPKFDIF50/20/1980HIV SCREENING 12/07/1994HEPATITIS C TMHTMHFYG21/16/1998DTAP/TDAP/TD VACCINES (1 - Tdap) 12/07/1998HEPATITIS B VACCINE (1 of 3 - 19+ 3-dose series)12/07/1998HPV VACCINE (1 - 3-dose SCDM series)12/07/2006DEPRESSION ZJUOEMDCN59/01/2025COVID-19 VACCINE (1 - 2024-26 season)2025ZOSTER VACCINE (1 of 2)12/07/2029HIB VACCINEAged OutNo longer eligible based on patient's age to complete this topicMENINGOCOCCAL (Group B) VACCINE SHARED DECISION-MAKINGAged OutNo longer eligible based on patient's age to complete this topicMENINGOCOCCAL GROUPS A/C/Y/W VACCINEAged Out No longer eligible based on patient's age to complete this topicPNEUMOCOCCAL VACCINEAged OutNo longer eligible based on patient's age to complete this topic Care Teams Team MemberRelationshipSpecialtyStart DateEnd Date Unknown, Provider PCP - 03/22/17
--- OUTSIDE RECORDS SUMMARY | 2025-07-15 02:00 | XMS_ITS | Clinical Summary ---
Author Organization [employer] [facility] Address [address] [place] [address] Care Team Providers Care Electrician Outside Name Role Phone Omar Vogt MD Unavailable [phone] Facundo Bell RN Unavailable Annika Huff NP Unavailable Pcp, No Primary Care Provider Unavailabl e Allergies Active AllergyReactionsCriticalityNoted DateCommentsCodeineNausea And Vomiting 05/25/2005Covid-19 Vacc,Mrna(Pfizer)(Pf)Anaphylaxis,Edema,Flushing,Hives,Itching ,Shortness Of Breath,Throat Swelling/MjsqoipGjcw07/23/2020EggAnaphylaxisHigh 05/12/2012 Ducks eggs FentanylGI Upset,Other - Describe In Comment Field12/26/2011 Causes pain Abdominal pain Influenza Virus FixizajtFlbflhjjnfiIvgo55/05/3912AqawxLjqwSwm93/05/2005Nut - UnspecifiedOther - Describe In Comment Field09/22/2014 pt allergic to walnuts Polyethyl Glycol-Polyvinyl Alc*Zannpxt4301/16/2022 Medications MedicationSigDispense QuantityRefillsLast FilledStart DateEnd DateStatus diphenhydrAMINE (BENADRYL) 50 mg capsule Indications:HivesTake 1 capsule by mouth every 6 hours if needed. Active LORazepam (ATIVAN) 0.5 mg tab Indications:Chronic recurrent pancreatitis (HC),Epigastric painTake 1-2 tabs po q 8 hours prn 30 Tablet 05/31/2021ctive hydrOXYzine HCL (ATARAX) 25 mg tablet Indications:Sleep disturbanceTake 1-2 tab po q bedtime as needed 60 Tablet 05/31/2021ctive albuterol HFA (PRO-AIR; VENTOLIN; PROVENTIL) 90 mcg/actuation inhaler Indications:Multiple allergiesInhale 2 Puffs by mouth 4 times daily if needed. 8 g 05/31/2021ctive ondansetron (ZOFRAN ODT) 4 mg disintegrating tablet Indications:Abdominal pain, acute, epigastricPlace 1 Tablet (4 mg) on the tongue every 6 hours if needed for Nausea/Vomiting. 30 tablet. ctive tacrolimus 0.1% (PROTOPIC) 0.1 % ointment Apply topically to affected area(s).01/15/2022ctive fexofenadine (FÉLIX) 180 mg tablet Take 1 Tablet by mouth once daily in the evening. Twice daily09/11/2021ctive fluticasone propion-salmeteroL (ADVAIR) 250-50 mcg/Dose diskus inhaler Inhale 1 Puff by mouth in the morning and 1 Puff in the evening.09/11/2021ctive predniSONE (DELTASONE) 50 mg tab tablet Emergency set: if severe allergic reaction take immediately 100mg Prednisone (2x50mg) and 2 Tabl Cetirizine 10mg and then write precise 12h retrospective diary. If less severe reaction take only the 2 Tabl Gcjgqbbntk40/28/2022ctive cefTAZidime (FORTAZ) 1 gram solr 1x obgooiz2401/15/2022ctive EPINEPHrine (EpiPen) 0.3 mg/0.3 mL auto-injector Indications:Multiple allergiesInject 0.3 mg (1 pen.) intramuscular one time if needed for Allergic Reaction. 0.6 mL ctive HYDROmorphone (DILAUDID) 4 mg tablet Indications:Chronic recurrent pancreatitis (HC)Take 0.5-1 Tablets (2-4 mg) by mouth every 6 hours if needed for Pain. 10 Tablet 08/16/2022ctive atorvastatin (LIPITOR) 20 mg tablet Indications:Hyperlipidemia, unspecified hyperlipidemia typeTake 1 Tablet (20 mg) by mouth at bedtime. 60 Tablet 11/12/2022ctive DULoxetine (CYMBALTA) 60 mg Delayed-release capsule Indications:Adjustment disorder with mixed anxiety and depressed moodTAKE ONE CAPSULE BY MOUTH ONE TIME DAILY 30 Capsule 02/12/2023ctive methylPREDNISolone (Medrol, Michael,) 4 mg tablet Indications:Acute right-sided low back pain without sciaticaTake by mouth as instructed per packaging. 21 Tablet 02/12/2023ctive cyclobenzaprine (FLEXERIL) 5 mg tablet Indications:Acute right-sided low back pain without sciaticaTake 1-2 Tablets (5- 10 mg) by mouth 3 times daily if needed for Muscle Spasm. 21 Tablet 02/12/2023ctive ibuprofen (ADVIL; MOTRIN) 800 mg tablet Indications:Acute right-sided low back pain without sciaticaTake 1 Tablet (800 mg) by mouth three times daily with meals. 90 Tablet 02/12/2023ctive HYDROmorphone (Dilaudid) 4 mg tablet Indications:Acute right-sided low back pain without sciaticaTake 1 Tablet (4 mg) by mouth every 6 hours if needed for Pain. 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 Chronic idiopathic itcvfvxzn05/28/2022ngio-edema2Chronic recurrent laabagmjsnhi99/11/2021 Overview (05/31/2021): [place] [facility] S/p sphinterotomy Bjpezdkrirjzuf28/10/2021Dyshidrotic ukoido8310/23/2016S/P ERCP03/30/2014 Intractable pain03/30/2014 Overview (05/31/2021): Joint pain : saw rheumatology CHARLENE, RA , CRP negative Qnwafoxg72/21/2012 Overview (05/31/2021): TOTAL METANEPHRINE 24HR U Latest Ref Range: 149 - 535 mcg/24 h 677 (H) 5 HIAA,24HR URINE Latest Ref Range: <8.1 mg/24 h 22.9 (H) 5.4 4.4 METANEPHRINES,24HR Latest Ref Range: 30 - 180 mcg/24 h 167 NORMETANEPHRINE,24HR UR Latest Ref Range: 111 - 419 mcg/24 h 510 (H) Hx of kmpyshruvyq46/21/2012 Overview (05/31/2021): Multiple triggers Reacted to COVID-19 shot Adjustment disorder with mixed anxiety and depressed mood04/08/2008nemia, qzjqfhvzyvt19/12/2005 Immunizations ImmunizationAdministration DatesNext DueCOVID-19 vaccine (IsagenJ&WebinarHero) DARYA MCFADDEN 10/15/2021,2COVID-19 vaccine (Sonarworks 30mcg/0.3mL) DARYA MCFADDEN 07/12/2020Td, Preservative Free (age >= 7 Years)03/06/2017Tdap07/21/2006 Tuberculin (PPD)11/24/2013,11/15/2013 Family History Medical HistoryRelationNameCommentsAnxiety disorderBrother 132Hyperlipidemia Brother 132AlcoholismBrother 230Anxiety disorderBrother 230Drug AbuseBrother 230 HyperlipidemiaBrother 230Coronary artery btxdqbjJklkym60PtirkbttvrixvcIzksxy16 Coronary artery diseaseMaternal GrandfatherHyperlipidemiaMaternal Grandfather HypertensionMaternal GrandfatherStrokeMaternal GrandfatherDementiaMaternal GrandmotherHyperlipidemiaMaternal GrandmotherHypertensionMaternal Grandmother ObesityMaternal GrandmotherAnxiety zmzfffyrMkwsyw32Kouab VbjnuwxCcccoe73Bvyfeu V LeidenClotting klmpchaoFxfspv47LoeocbkenyKjxvvd46KsqkjkzxEfcuxb15Heqaodzvjmwmso Ayuphn68VygjgsesamjsAobmyh97VpclsRxwqcz997 prior miscarriages with no known h/o clottingPsychiatric pvfzzaeJxuzvb99lwweuekvia/?bipolarCoronary artery disease Paternal GrandmotherHyperlipidemiaPaternal GrandmotherHypertensionPaternal GrandmotherUterine cancerPaternal GrandmotherGI DiseasePaternal Unclerare GI d/o causing at age 44Anxiety disorderSister 145GI DiseaseSister 145irritable bowel syndromeHyperlipidemiaSister 145ObesitySister 145Anxiety disorderSister 2 38HyperlipidemiaSister 238Anxiety disorderSister 336HyperlipidemiaSister 336 Cancer-breastNo Family HistoryCancer-ovarianNo Family HistoryRelationNameStatus CommentsBrother 132AliveBrother 540EwdapOtqdyl50XmpnyWqwcllzm Grandfather DeceasedMaternal MunrhjenbgqBqyulniwCizmhc33LodjlQavvgjox GrandfatherDeceased Paternal GrandmotherDeceasedPaternal UncleSister 145AliveSister 238AliveSister 3 36Alive Social History Tobacco UseTypesPacks/DayYears UsedDateSmoking Tobacco: FormerCigarettes0.485082 - 2004Smokeless Tobacco: Never Tobacco Cessation:Counseling Given: No Alcohol UseStandard Drinks/WeekCommentsNo0 (1 standard drink = 0.6 oz pure alcohol)PHQ-2AnswerDate RecordedPHQ-2 TOTAL VJDZK574Social Connections AnswerDate RecordedFrequency of Communication with Friends and FamilyNot on file 08/19/2023Financial Resource StrainAnswerDate RecordedDifficulty of Paying Living Infwsbha530/27/2023Difficulty of Paying Living ExpensesNot on file 08/16/2022Food InsecurityAnswerDate RecordedWorried About Running Out of Food in the Last Xueq163Transportation NeedsAnswerDate RecordedLack of Transportation (Medical)Housing StabilityAnswerDate RecordedUnable to Pay for Housing in the Last Ecjq506regnantCommentsNoSex and Gender InformationValueDate RecordedSex Assigned at BirthNot on fileLegal SexFemale 08/03/2012 5:48 AM CSTGender IdentityNot on fileSexual OrientationNot on file OccupationIndustryJob Start DateJob End DateNot on fileNot on fileNot on fileNot on file Obstetrics History GravidaParaTermPretermABIABSABEctopicMultipleLivingLive Rdsqqg3964326LvkwRwlisfh GATotal LaborLabor/2nd/9ljEpinamJkjNlpcLkcyOKCGyxA8X2RbqpJbbpLPC18/13/2005Term 28n1m50b 00m/3.12 kg (6 lb 14 oz)OImkQtacwvDxdyb94/05/3623Vdej02a4s28i 00m/3.71 kg (8 lb 3 oz)MVagLivingGacassandra Last Filed Vital Signs Vital SignReadingTime TakenCommentsBlood Vncrbatn684/8010 3:45 PM CDT Txfwa8002 3:45 PM QMUYyfssmtcyzn45.7 ??C (98.1 ??F)04/28/2023 2:34 PM CDTRespiratory Muoj4169 2:34 PM CDTOxygen Eiajpmfdif31%04/28/2023 3:45 PM CDTInhaled Oxygen Concentration--Uwbeye83.4 kg (206 lb)03/18/2023 9:00 AM CDT Gumzyp831.6 cm (5' 6)04/28/2023 1:14 PM CDTBody Mass Index33.27003/18/2023 9:00 AM CDT Plan of Treatment Health MaintenanceDue DateLast DoneCommentsHepatitis B series for 19+ (1 of 3 - 19+ 3-dose series)12/07/1998Pneumococcal series for age 6-49 (1 of 2 - PCV) 12/07/1998HPV series for age 9-45 (1 - 3-dose SCDM series)12/07/2006Depression screening for age 12+4008/16/2022, 09/11/2021, 09/10/2021, Additional history existsBMI (ht and wt on same day) for age 18+, 02/11/2023, 12/03/2022, Additional history existsColonoscopy through age 75 12/07/2024Mammogram for age 40-750, 06/20/2020COVID-19 vaccine series ( - 2024- season)/, 09/01/2021, 12/28/2020, Additional history existsInfluenza Vaccine (#1)03/21/2025Pap test for age 21-65 , 06/12/2020, 03/06/2017, Additional history existsLipids for age 45-7506/7001/16/2022, 09/11/2021, 10/17/2020, Additional history existsTetanus zbtnlta41, 07/21/2006, 07/21/2006HIV for age 15-04Ecafvzvsy70/02/2007Hepatitis C screening for age 18-67Gijkunlxc23/27/2023 Medical Devices ImplantedTypeAreaManufacturerDevice IdentifierShelf Expiration DateModel / Serial / LotStent Pancreatic 5fr 3cm Gpso [facility] - [id number] Implanted:Qty: 1 on 03/29/2014 at [facility] Oenqspodc28/01/2017 GPSO-5-3# / / [id number] Pancreatic 9als4kf [facility] Sof-Flex - [id number] Implanted:Qty: 1 on 04/28/2023 [facility] SogtrtwebQVVH-AR-2-5 / / [id number] Procedures Procedure NamePriorityDate/TimeAssociated DiagnosisCommentsLC HCV ANTIBODY RFX TO QUANT APTTeylqpd42/27/2023 1:31 PM TOOL RENTAL TECHNICIAN Need for hepatitis C screening test LIPID PANEL W REFLEX MEASURED KFLUpkdsec29/29/2022 11:58 AM CDT Hyperlipidemia, unspecified hyperlipidemia type XR MAMMO OCTAVIA BILAT PJWKRSCkqdxie27/16/2022 8:14 AM CDT Encounter for screening mammogram for malignant neoplasm of breast CONTROL SYSTEMS TECHNICIAN THIN PREP PAP SCREEN NEDVWPEekciah68/23/2020 1:55 PM TOOL RENTAL TECHNICIAN Screening for cervical cancer ANTI HIV 1/0Fupfsrv83/02/2007 10:08 AM CDT Supervision Of Other Normal (Hc) from Last 3 Months or Most Recently Relevant to Health Maintenance Results * LC HCV ANTIBODY RFX TO QUANT PCR (08/16/2022 1:31 PM TOOL RENTAL TECHNICIAN)ComponentValueRef RangeTest MethodAnalysis TimePerformed AtPathologist SignatureHCV Ab<0.10.0 - 0.9 s/co ratio08/20/2022 10:06 PM [facility])Specimen (Source)Anatomical Location / LateralityCollection Method / VolumeCollection TimeReceived TimeBloodBLOOD SPECIMEN / Unknown Venipuncture / Bqyhjke9808/16/2022 1:31 PM CST08/16/2022 1:31 PM TOOL RENTAL TECHNICIAN Narrative [facility]) - 08/20/2022 10:06 PM TOOL RENTAL TECHNICIAN Performed at: 01 - [address] ??[id number] Coding File Clerk: Sha Mireles MD, Phone: ??[phone] Authorizing ProviderResult TypeResult StatusAdei Shaqra DOLABORATORYFinal Result Performing OrganizationAddressCity/State/ZIP CodePhone Number [facility] (CET) [address] [place] [address] * (ABNORMAL) LIPID PANEL W REFLEX MEASURED LDL (01/16/2022 11:58 AM CDT) ComponentValueRef RangeTest MethodAnalysis TimePerformed AtPathologist SignatureCHOLESTEROL,EPWNK580(H)100 - 199 mg/dL01/17/2022 3:15 AM [facility] VOMXCAOFFGRWGJFRDLIBZUG490(H)<150 mg/dL01/17/2022 3:15 AM [facility]-C[facility]AL LABORATORYHDL LILGFLGCOGR26>40 mg/dL01/17/2022 3:15 AM [facility]-C[facility]AL LABORATORYNON-HDL CWNWMIVCRII636(H)<145 mg/dl01/17/2022 3:15 AM [facility]- CENTRAL LABORATORYCHOL/HDL RATIO4.55(H)<4.50001/17/2022 3:15 AM [facility]-CENTRAL LABORATORYLDL HGMARXWHNIA923<=130 mg/dL01/17/2022 3:15 AM [facility]-C[facility]AL LABORATORYVLDL BPADGQCUKVA39(H) <=30 mg/dL01/17/2022 3:15 AM [facility] PROVIDER ORDERED GCSUWSNNNMHX24/30/2022 3:15 AM [facility]- CENTRAL LABORATORYSpecimen (Source)Anatomical Location / LateralityCollection Method / VolumeCollection TimeReceived TimeBloodBLOOD SPECIMEN / Unknown Venipuncture / Keqiqbl5601/16/2022 11:58 AM CDT01/16/2022 11:59 AM CDT Narrative Authorizing ProviderResult TypeResult StatusAmy Paulettejovita Mendes MDCHEMISTRYFinal ResultPerforming OrganizationAddressCity/State/ZIP CodePhone Number [facility]OR[facility] [address] [place] [address], [place] * XR MAMMO OCTAVIA BILAT SCREEN (10/03/2021 8:14 AM CDT)Anatomical RegionLaterality ModalityBREASTS, Breast Left, Breast RightBilateralMammographySpecimen (Source)Anatomical Location / LateralityCollection Method / VolumeCollection TimeReceived Time Impressions 10/03/2021 3:29 PM CDT There is no radiographic evidence for malignancy. Recommend annual mammograms. MAMMOGRAM ASSESSMENT: ??ACR 1 Negative PATIENTS: You will also receive a letter with your examination results in an easy to read format. ??If you have questions about your results, please contact your referring provider. Narrative 10/03/2021 3:29 PM CDT For Patients: As a result of the Cures Act, medical imaging exams and procedure reports are released immediately into your electronic medical record. You may view this report before your referring provider. If you have questions, please contact your health care provider. XR MAMMO OCTAVIA BILAT SCREEN [[id number]] CLINICAL HISTORY: ??This is an asymptomatic 40 y.o. patient. INDICATION FOR EXAM: Mammogram Screening. TECHNIQUE: CC & MLO views were obtained. This study was evaluated with the assistance of Computer-Aided Detection. Breast Tomosynthesis was used in interpretation. COMPARISON FILM: Yes 06/20/20 Zeomatrix ?? FINDINGS: ??The breasts are heterogeneously dense, which may obscure small masses. There are no dominant masses, suspicious micro calcifications or areas of architectural distortion. Authorizing ProviderResult TypeResult StatusAmy Paulettejovita Mendes MDMAMMOFinal Result * CONTROL SYSTEMS TECHNICIAN THIN PREP PAP SCREEN IMAGED [[id number]] (06/12/2020 1:55 PM TOOL RENTAL TECHNICIAN)Component ValueRef RangeTest MethodAnalysis TimePerformed AtPathologist SignatureCase ReportGynecologic Cytology Report ? Case: [id number] ? Authorizing Provider: ??Jacinta Mendes MD ? Collected: ? 06/12/2020 1355 ? Ordering Location: ? [facility] ?? Received: ?06/12/2020 1438 ? Clinic ? First Screen: ?Bacrolando Minie ? Specimen: ?CONTROL SYSTEMS TECHNICIAN ThinPrep Vial Screening, Cervical ? 06/22/2020 10:[address] [facility] LAB[facility]ORY INTERPRETATION/RESULTNEGATIVE FOR INTRAEPITHELIAL LESION OR MALIGNANCY (NIL) (none)06/22/2020 10:19 AM [facility]AL LABORATORY at 1019 CSTSPECIMEN ADEQUACY Satisfactory for evaluation Endocervical component ufmuwjf9906/22/2020 10:19 AM [facility] LABORATORYHPV REQUESTHPV and PAP06/22/2020 10:19 AM [facility] LABORATORYDate of LMP11/ 10:19 AM [facility] LABORATORYLast Pap Date03/06 10:[address] [facility] LABOR[facility]ORYLast Pap BnqfxpDJI25/03/2020 10:19 AM [facility] LABORATORYAbnormal Pap or [place] Bx in last 5 fqmqgPh3206/22/2020 10:19 AM [facility] Menstrual StatusRegular Lumvbyc7106/22/2020 10:19 AM [facility] LABORATORYColp Bx Done FbtyvWn3006/22/2020 10:19 AM [facility] LABORATORYAdditional InformationNone given06/22/2020 10:19 AM [facility] LABORATORYComment: Cytology is screened at [facility] - [address], [place] [address] and [facility] - [address] [place] [address] and Laboratory - [address] [place] [address] Interpreted at [facility] - [address], [place] [address] Automated TmonlyKxylnxpmyr53/03/2020 10:19 AM [facility] LABORATORYComment:Specimen processed successfully by automated life science teacher device, ThinPrep Imaging System, [employer]ANCILLARY TESTING GYNHPV Ordered, Please see separate zqietk7506/22/2020 10:19 AM [facility] LABORATORYNoteThe pap test is a screening technique, not a diagnostic procedure. It is used primarily to screen for squamous cancers and precursor lesions. Published studies have shown that it is subject to both false negative and false positive results. The pap test should not be used as the sole means to diagnose or exclude pre-malignant and malignant lesions.06/22/2020 10:[address] [facility] LABORATORYSpecimen (Source)Anatomical Location / LateralityCollection Method / VolumeCollection TimeReceived TimeOther (Cervical)Non-Blood / Nyeiaqk8206/12/2020 1:55 PM CST06/12/2020 2:38 PM TOOL RENTAL TECHNICIAN Narrative Authorizing ProviderResult TypeResult StatusJacinta Loley MDPATHOLOGY/CYTOLOGY Final ResultPerforming OrganizationAddressCity/State/ZIP CodePhone Number [facility] [address] [place] [address], * ANTI HIV 1/2 (05/22/2007 10:08 AM CDT)ComponentValueRef RangeTest Method Analysis TimePerformed AtPathologist SignatureANTI HIV 1/2Non-reactiveABBOTT SEATTLE VA MEDICAL CENTERpecimen (Source)Anatomical Location / Laterality Collection Method / VolumeCollection TimeReceived TimeBlood specimen (specimen)BLOOD SPECIMEN / Coxrssn5305/22/2007 10:08 AM CDT107/22/2006 10:02 AM CDT Narrative Authorizing ProviderResult TypeResult StatusJacinta Paulette Mendes MDSEND OUTSFinal ResultPerforming OrganizationAddressCity/State/ZIP CodePhone Number [facility] [place]NAL ZIP [address] [address] from Last 3 Months or Most Recently Relevant to Health Maintenance Insurance [place] [id number] * Guarantor: Quintin Zavala AAccount TypeRelation to PatientDate of BirthPhoneBilman [facility] AddressWorkers PfzzQljj22/20/1981 [address] [place] [address] Advance Directives * Full Code (Latest Code Status on File) Date ActivatedDate LvbnfnflufaPprvxlfy68/9/2023 1:37 PM10 6:39 PMQuestion AnswerCommentsCode Status Discussion:* Unable to Assess Preferences, Provider to review later * Full Code Date ActivatedDate InactivatedComments11/28/2015 8:19 AM11/29/2015 2:47 PM * Full Code Date ActivatedDate InactivatedComments03/29/2014 8:45 AM03/31/2014 7:39 PM * Full Code Date ActivatedDate InactivatedComments03/29/2014 8:39 AM03/29/2014 8:45 AM * Full Code Date ActivatedDate InactivatedComments12/26/2011 9:18 AM12/27/2011 2:17 AM Care Teams Team MemberRelationshipSpecialtyStart DateEnd Date Pcp, No [address] [facility] [address] PCP - General01/31/23 Omar Vogt MD Allergy and Immunology12/04/11 Facundo Bell, RN [address] [place] [address] Registered Nurse11/05/22 Annika Huff, AIRLINE PILOT [address] [facility] [place] [place] [address] Nurse Practitioner - Family11/05/22
--- OUTSIDE RECORDS SUMMARY | 2025-07-15 02:01 | XMS_ITS | Clinical Summary ---
Author Organization [facility] Address [address] [place] [id number] Care Team Providers Care Institutional Custodian Name Role Phone Toño Patricia MD Unavailable [phone] Annika Huff APRN [facility] Provi niurka Opal Frye MD Unavailable Edgardo Serrato MD Unavailable [phone] Edgardo Serrato MD Unavailable [phone] Allergies Active AllergyReactionsCriticalityNoted DateCommentsCovid-19 (Mrna) Vaccine Anaphylaxis,Hives,Itching,Shortness Of IwiwyaOzlu12/23/2020 Other reaction(s): Edema, Flushing, Throat Swelling/Closing FentanylOther (See Comments)High12/26/2011 Other reaction(s): GI Upset, sphincter of Darrell spasms Causes pain Abdominal pain Influenza Virus Vunyrms5703/22/2017Polyethylene Glycol 2000 Dimyristoyl Glycerol WvlxqjbhunMmdc99/28/2022 Patient reacted to PEG 4000 in COVID Pfizer vaccine Medications MedicationSigDispense QuantityRefillsLast FilledStart DateEnd DateStatus simvastatin (ZOCOR) 20 MG tablet Take 20 mg by mouth At BedtimeActive DULoxetine (CYMBALTA) 60 MG capsule Take 60 mg by mouth daily. Take two tabletsActive EPINEPHrine (ADRENACLICK JR) 0.15 MG/0.15ML injection 2-pack Inject 0.15 mg into the muscle as needed for anaphylaxisActive albuterol (PROAIR HFA/PROVENTIL HFA/VENTOLIN HFA) 108 (90 Base) MCG/ACT inhaler Inhale 2 puffs into the lungs05/31/2021ctive polyethylene glycol (MIRALAX) 17 g packet Take 1 packet by mouth dailyActive hydrOXYzine (ATARAX) 25 MG tablet Take 25 mg by mouth 3 times daily as needed for itchingActive cefTAZidime (FORTAZ) 1 GM vial Indications:Drug allergyFor Allergy Testing in Allergy Clinic Only 1 each 01/15/2022ctive tacrolimus (PROTOPIC) 0.1 % external ointment Indications:Angioedema, subsequent encounter,Mild intermittent asthma without complication,House dust mite allergy,Drug allergyApply topically At Bedtime On palms and plants 60 g ctive fexofenadine (FÉLIX) 180 MG tablet Indications:Angioedema, subsequent encounter,Mild intermittent asthma without complication,House dust mite allergyTAKE ONE TABLET BY MOUTH ONE TIME DAILY IN THE P.M. 30 tablet 01/15/2022ctive predniSONE (DELTASONE) 50 MG tablet Indications:Angioedema, subsequent encounterEmergency set: if severe allergic reaction take immediately 100mg Prednisone (2x50mg) and 2 Tabl Cetirizine 10mg and then write precise 12h retrospective diary. If less severe reaction take only the 2 Tabl Cetirizine 2 tablet ctive fexofenadine (FÉLIX) 180 MG tablet Indications:Angioedema, subsequent encounter,Mild intermittent asthma without complication,House dust mite allergy,Chronic idiopathic urticariaTake 1 tablet (180 mg) by mouth 2 times daily 60 tablet ctive fluticasone-salmeterol (ADVAIR) 250-50 MCG/ACT inhaler Indications:Angioedema, subsequent encounter,Mild intermittent asthma without complication,House dust mite allergyINHALE ONE PUFF BY MOUTH EVERY TWELVE HOURS 60 each ctive prazosin (MINIPRESS) 1 MG capsule Take 2 mg by mouth at bedtime. Take two nqpopomr36/24/2024ctive Active Problems ProblemNoted DateDiagnosed DateAngioedema, subsequent rvtemiveo16/28/2022hronic idiopathic dphvalpuk95/28/2022 Encounters DateTypeDepartmentCare BywdNbluwrkyrkw78/07/2025Telephone [facility] [address] [place] [address] Edgardo Serrato MD Call Back05/19/2025Telephone [facility] [address] [place] [phone] Edgardo Serrato MD EGD & ESG Lnvmpacik01/27/2025Transcribe Orders GENERIC EXTERNAL DATA DEPARTMENT Nila Salmon NP 05/16/2025Transcribe Orders GENERIC EXTERNAL DATA DEPARTMENT Provider, Generic External Data Abdominal pain, generalized (Primary Dx)from Last 3 Months Social History Tobacco UseTypesPacks/DayYears UsedDateSmoking Tobacco: FormerSmokeless Tobacco: NeverPHQ-2AnswerDate RecordedPHQ-2 Ldvic570dolescent EducationAnswer Date RecordedGetting School Help NeededNot on file04/11/2023Comments UnknownSex and Gender InformationValueDate RecordedSex Assigned at BirthNot on fileLegal GsdFgghwx28/18/2014 10:15 AM CDTGender IdentityNot on fileSexual OrientationNot on file Last Filed Vital Signs Vital SignReadingTime TakenCommentsBlood Iaabywjq123/7003 9:08 AM CDT Oqpws1625 9:08 AM CDTTemperature--Respiratory Rate--Oxygen Rradiuiwbt87% 09/27/2024 9:08 AM CDTInhaled Oxygen Concentration--Lyicll85.8 kg (220 lb) 09/27/2024 9:08 AM CVEElxbwa311.6 cm (5' 6)09/27/2024 9:08 AM CDTBody Mass Index35.51009/27/2024 9:08 AM CDT Plan of Treatment Health MaintenanceDue DateLast DoneCommentsADVANCE CARE WJFLDSKU39/20/1980ANNUAL REVIEW OF HM MLHEHR31 1979ASTHMA ACTION PLAN1979ASTHMA CONTROL TEST 1979CT GXGUMHRKSYPV68/20/0912ABN34 1979FLEX SIG1979LIPID 1979DNA (Cologuard)1979 1736ROHLFTWMDIE27/20/1990COLORECTAL CANCER QHRINEHZZ23/20/1990HEPATITIS B VACCINE (1 of 3 - 19+ 3-dose series)12/07/1998 PNEUMOCOCCAL VACCINE: PEDIATRICS (0 to 5 YEARS) AND AT-RISK PATIENTS (6 to 49 YEARS) (1 of 2 - PCV)12/07/1998PAP13108/12/2019YEARLY PREVENTIVE VISIT 4008/16/2022, 06/12/2020COVID-19 VACCINE ( - 2024- season)2025 10/15/2021, 09/01/2021, 12/28/2020, Additional history existsINFLUENZA VACCINE (#1)03/21/2025MAMMO KMCRNJCWD69, 10/03/2021, 06/20/2020 DTAP/TDAP/TD VACCINE (3 - Td or Tdap)7003/06/2017, 07/21/2006DIABETES KODNAXUAA35, 11/03/2024ZOSTER VACCINE (1 of 2)12/07/2029HIV XJARAEIBBSbkbzvwse56/02/2007HEPATITIS C TBWOZAZSCNqfjfuilg34/27/2023HQ-2 (once per calendar year)Dtmywbjhc97/10/2025, 01/16/2022, 09/11/2021HPV VACCINE (No Doses Required)CompletedMENINGITIS VACCINEAged OutNo longer eligible based on patient's age to complete this topic Procedures Procedure NamePriorityDate/TimeAssociated DiagnosisCommentsCREATININE (EXTERNAL RESULT)Faxrwwj4505/04/2025 12:00 PM CDT GLUCOSE (EXTERNAL RESULT)Dtqszfu1205/04/2025 12:00 PM CDT POTASSIUM (EXTERNAL RESULT)Mfixmir3705/04/2025 12:00 PM CDT MAMMOGRAM - HIM SZEWObydnkh42/12/2023 from Last 3 Months or Most Recently Relevant to Health Maintenance Results * Potassium (External Result) (05/04/2025 12:00 PM CDT)ComponentValueRef Range Test MethodAnalysis TimePerformed AtPathologist SignaturePotassium (External) 3.53.5 - 5.1 mmol/LVA [facility] DOTHANSpecimen (Source)Anatomical Location / LateralityCollection Method / VolumeCollection TimeReceived Time Blood05/04/2025 12:00 PM CDT [facility] - 05/04/2025 12:00 PM CDT [facility] Note Authorizing ProviderResult TypeResult StatusProvider OutsideLAB - HIM EXTERNAL RESULTFinal ResultPerforming OrganizationAddressCity/State/ZIP CodePhone Number [address] [phone] * Glucose (External Result) (05/04/2025 12:00 PM CDT)ComponentValueRef RangeTest MethodAnalysis TimePerformed AtPathologist SignatureGlucose (External)8570 - 100 mg/dLHUEY P. LONG MEDICAL CENTERSpecimen (Source)Anatomical Location / LateralityCollection Method / VolumeCollection TimeReceived TimeBlood 05/04/2025 12:00 PM CDT [facility] - 05/04/2025 12:00 PM CDT [facility] Note Authorizing ProviderResult TypeResult StatusProvider OutsideLAB - [facility] EXTERNAL RESULTFinal ResultPerforming OrganizationAddressCity/State/ZIP CodePhone Number [address] [phone] * (ABNORMAL) Creatinine (External Result) (05/04/2025 12:00 PM CDT)Component ValueRef RangeTest MethodAnalysis TimePerformed AtPathologist Signature Creatinine (External)1.1(A)0.5 - 1.0 mg/dLHUEY P. LONG MEDICAL [facility]ENTER Specimen (Source)Anatomical Location / LateralityCollection Method / Volume Collection TimeReceived TseuOtumu22/15/2025 12:00 PM CDT [facility] - 05/04/2025 12:00 PM CDT [facility] Note Authorizing ProviderResult TypeResult StatusProvider OutsideLAB - HIM EXTERNAL RESULTFinal ResultPerforming OrganizationAddressCity/State/ZIP CodePhone Number [address] [phone] * Mammogram - HIM Scan (04/01/2023)Anatomical RegionLateralityModalityOther Narrative 04/01/2023 [facility] - Progress Note Authorizing ProviderResult TypeResult StatusPatient ReportedIMG MAMMOGRAPHY ORDERABLESFinal Result from Last 3 Months or Most Recently Relevant to Health Maintenance Insurance * Guarantor: Tatum Zavala AAccount TypeRelation to PatientDate of BirthPhoneBilling GenohzlXjcguWxvw86/20/1981 [address] [place] [address] Care Teams Team MemberRelationshipSpecialtyStart DateEnd Date Annika Huff, [employer] 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
--- NOTE | 2025-07-15 02:17 | ED.ABDPAIN ---
HPI - Abdominal Pain General Time Seen by Provider: 02:17 Date Seen: 07/15/25 Chief Complaint: Abdominal Pain Stated Complaint: Abdominal Pain Time Seen by Provider: 07/15/25 02:17 Source: patient Mode of arrival: ambulatory History of Present Illness HPI narrative: Tatum is a 44-year-old female who has a past medical history of chronic pancreatitis, sphincter of oddi spasms who presents to the emergency department for evaluation of abdominal pain. Patient reports history of chronic pancreatitis, states that symptoms started yesterday so put herself on a clear liquid diet. Patient reports worsening symptoms today with severe sharp intermittent spasms of her sphincter of oddi. Patient states that she tried taking 15 mg of oxycodone with no improvement of symptoms. Patient reports nausea but denies any vomiting. Patient states she typically follows with the [facility], does get a nerve block every 6 months however states that she is 3 months overdue as the [facility] currently does not have Anesthesiology. Also reports normally takes Dilaudid for pain but is also out and has not been able to see her pain provider so has been taking oxycodone which does not help as much. Patient denies any fever, cough or cold-like symptoms, denies any bloody stool, hematemesis, no other complaints. Patient states she just would like the pain to decrease a little bit so she can tolerate her medications at home. Related Data Home Medications ?Medication ?Instructions ?Recorded ?Confirmed albuterol sulfate 90 mcg/actuation 2 puff inhalation QID PRN 02/11/22 07/14/24 aerosol inhaler shortness of breath or wheezing epinephrine 0.3 mg/0.3 mL 0.3 mg IM ONCE PRN allergies 04/06/23 07/14/24 injection, auto-injector hyoscyamine sulfate 0.125 mg 0.125 mg PO TID PRN 04/29/23 07/14/24 sublingual tablet diphenhydramine HCl 25 mg capsule 50 mg PO DAILY PRN 11/29/23 07/14/24 (Benadryl) atorvastatin 40 mg tablet 40 mg PO DAILY 11/30/23 07/14/24 cetirizine 5 mg tablet 5 mg PO QAM PRN 11/30/23 07/15/24 fexofenadine 180 mg tablet 180 mg PO BID 11/30/23 07/14/24 hydromorphone 2 mg tablet 4 mg PO Q6H PRN 11/30/23 07/14/24 omega 8-oxb-sqk-fish oil 1,000 mg 1 cap PO QAM 11/30/23 07/14/24 (120 mg-180 mg) capsule (Fish Oil) ondansetron 4 mg disintegrating 4 mg PO Q6H PRN 11/30/23 07/14/24 tablet bupropion HCl 300 mg 24 hr tablet, 300 mg PO DAILY 07/14/24 07/14/24 extended release omeprazole 20 mg capsule,delayed 20 mg PO DAILY 07/14/24 07/14/24 release oxycodone 5 mg capsule 5 mg PO Q4-6H PRN 07/14/24 07/14/24 prazosin 2 mg capsule 4 mg PO HS 07/14/24 07/15/24 duloxetine 60 mg capsule,delayed 120 mg PO DAILY 07/15/24 07/15/24 release axtkkx-vljtyvns-wnvxnc(pork)24,000-76,000-120,000 1 cap PO TIDWM 07/15/24 07/15/24 unit capsule,del rel (Creon) quetiapine 200 mg tablet 200 mg PO DAILY 07/15/24 07/15/24 quetiapine 300 mg tablet 300 mg PO HS 07/15/24 07/15/24 trazodone 50 mg tablet 50 mg PO HS PRN 07/15/24 07/15/24 Previous Rx's ?Medication ?Instructions ?Recorded hydromorphone 4 mg tablet 2 - 4 mg (0.5 - 1 x 4 mg) PO Q4-6H 08/01/24 (Dilaudid) PRN pain #10 tabs hydromorphone 4 mg tablet 2 - 4 mg (0.5 - 1 x 4 mg) PO Q4-6H 08/01/24 (Dilaudid) PRN pain #12 tabs Allergies Allergy/AdvReac Type Severity Reaction Status Date / Time polyethylene glycol Allergy Anaphylaxis Verified 07/14/24 18:48 fentanyl AdvReac pain Verified 07/14/24 18:48 Review of Systems Narrative Past medical history, past surgical history, medications, allergies, family history, and social history were reviewed with the patient. No additional pertinent items. A medically appropriate review of systems was performed with pertinent positives and negatives noted in HPI, all other systems negative. 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 - Mast cell activation, unspecified (ICD-10) Sphincter of Oddi spasm ?K83.4 - Spasm of sphincter of Oddi (ICD-10) Sphincter of Oddi dysfunction (Unknown) ?K83.4 - Spasm of sphincter of Oddi (ICD-10) Surgical History S/P ERCP ?Z98.890 - Other specified postprocedural states (ICD-10) History of tonsillectomy and adenoidectomy ?Z90.89 - Acquired absence of other organs (ICD-10) Hx of appendectomy ?Z90.49 - Acquired absence of other specified parts of digestive tract (ICD-10) Hx laparoscopic cholecystectomy ?Z90.49 - Acquired absence of other specified parts of digestive tract (ICD-10) History of sphincterotomy of sphincter of Oddi ?Z98.890 - Other specified postprocedural states (ICD-10) Family History Sister Danika's disease Sister Raynaud phenomenon Mother Rheumatoid arthritis Erythema multiforme Social History Narrative: 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 Does not drink alcohol or use recreational drugs. Getting medical care through [facility] in [place]. What is your current living situation?: I presently have a place to live Problems where you live: no known problems Problems where you live details: n/a In the past 12 months, utilities in danger of being shut off: no In past 12 months, lack of transportation kept you from medical appts, meetings, work, or getting things needed for daily living: no In the past 12 mos, have been you worried that your food would run out before you had money to buy more?: never true In the past 12 mos, the food you bought just didn't last and you didn't have money to buy more?: never true Highest level of school completed/degree received: Bachelor's degree Smoking Status: Former smoker What tobacco products do you use: cigarettes Smoking quit date/years: <= 15 years ago Do you use any of these nicotine containing products: Vaping Products Nicotine containing products detail: Quit vaping when in the hospital in June Second hand tobacco smoke exposure: No How often do you have a drink containing alcohol: never How often do you have six or more drinks on one occasion: Never AUDIT-C Alcohol total score: 0 Non-prescribed substance use: denies use Caffeine: No How often does anyone, including family, friends and others, physically hurt you: never How often does anyone, including family, friends and others, insult or talk down to you: never How often does anyone, including family, friends and others, threaten you with harm: never How often does anyone, including family, friends and others, scream or curse at you: never service: Yes Exam Narrative: Exam Narrative: General: Afebrile, in distress secondary to pain. Patient kneeling on the floor hunched over in pain clutching her abdomen. HEENT: Normocephalic, atraumatic, conjunctiva normal. MMM Neck: non-tender, supple Cardio: tacycardic rate. regular rhythm Resp: Normal work of breathing, no respiratory distress, lungs clear bilaterally, no wheezing, rhonchi, rales Chest/Back: no visual signs of trauma, no midline tenderness, no CVA tenderness Abdomen: soft, non distension, +TTP epigastric region, no peritoneal signs Neuro: alert and fully oriented. CN II-XII grossly intact. Grossly normal strength and sensation in all extremities. MSK: no deformities. Normal range of motion Integumentary/Skin: no rash visualized, normal color Psych: normal affect, normal behavior Const: Vital Signs, click to edit/add: Vital Signs - 24 hr 07/15/25 02:07 07/15/25 02:36 07/15/25 02:52 Temperature 97.3 F L Pulse Rate 90 Pulse Rate [Right Pulse Oximeter] 104 H Respiratory Rate 18 18 Blood Pressure 143/93 H Blood Pressure [Ri ght Upper Arm] 176/109 H Pulse Oximetry 97 97 96 Oxygen Delivery Me thod Room Air Course Vital Signs Vital signs: Initial Vital Signs Temperature 97.3 F L 07/15/25 02:07 Temperature Source Temporal Artery Scan 07/15/25 02:07 Pulse Rate 104 H 07/15/25 02:07 Respiratory Rate 18 07/15/25 02:07 Blood Pressure 176/109 H 07/15/25 02:07 Blood Pressure Mean 131 H 07/15/25 02:07 Blood Pressure Position Sitting 07/15/25 02:07 Pulse Oximetry 97 07/15/25 02:07 Oxygen Delivery Method Room Air 07/15/25 02:07 Vital Signs Temperature 97.3 F L 07/15/25 02:07 Pulse Rate 104 H 07/15/25 02:07 Respiratory Rate 18 07/15/25 02:07 Blood Pressure 176/109 H 07/15/25 02:07 Pulse Oximetry 97 07/15/25 02:07 Oxygen Delivery Method Room Air 07/15/25 02:07 Temperature 97.3 F L 07/15/25 02:07 Pulse Rate 90 07/15/25 02:52 Respiratory Rate 18 07/15/25 02:52 Blood Pressure 143/93 H 07/15/25 02:52 Pulse Oximetry 96 07/15/25 02:52 Oxygen Delivery Method Room Air 07/15/25 02:07 Medications Administered Medications: Discontinued Medications Generic Name Dose Route Start Last Admin Trade Name Freq PRN Reason Stop Dose Admin Hydromorphone HCl 0.5 mg 07/15/25 02:15 07/15/25 02:20 Hydromorphone 0.5 Mg/0.5 Ml Inj IVP 07/15/25 02:16 0.5 mg ONCE ONE Administration Ketamine HCl 20 mg/ Sodium 100.2 mls @ 200.4 mls/hr 07/15/25 02:24 07/15/25 02:56 Chloride IVPB 07/15/25 02:53 Infused ONCE ONE Infusion Sodium Chloride 1,000 mls @ 1,000 mls/hr 07/15/25 03:00 07/15/25 02:33 0.9 % Sodium Chloride 1000 Ml IV 07/15/25 03:59 1,000 mls/hr .Q1H ALLYSSA Administration Ondansetron HCl 4 mg 07/15/25 02:15 07/15/25 02:19 Ondansetron 2 Mg/Ml Inj IVP 07/15/25 02:16 4 mg ONCE ONE Administration MDM - Abdominal Pain MDM Narrative Medical decision making narrative: Tatum is a 44-year-old female who has a past medical history of chronic pancreatitis, sphincter of oddi spasms who presents to the emergency department for evaluation of abdominal pain. Upon arrival patient is nontoxic appearing, afebrile, in distress. Patient is hunched over on the floor due to severe pain. Hypertensive upon arrival 176/109, tachycardic with a heart rate of 104, afebrile, no hypoxia. Suspect likely exacerbation of her chronic pancreatitis or spasms of her sphincter of oddi. Upon arrival IV was established, patient was treated with IV Zofran, Dilaudid however did have some worsening pain after the IV Dilaudid. Patient states that this has happened in the past with fentanyl but typically does not happen with Dilaudid. Plan for comprehensive labs. I reviewed patient's most recent ED visit back in 07/31/2024. At this time patient was treated with Dilaudid as well as ketamine which significantly improved her symptoms. I discussed with patient will try ketamine tonight to help with symptoms. Comprehensive labs remarkable for no leukocytosis white blood cell count 9.3, hemoglobin 14.3, glucose 155, no other acute metabolic electrolyte abnormality, lactic acid slightly elevated at 2.1. Patient was treated with 1 L IV fluid bolus. Normal bilirubin, no transaminitis, normal lipase 294. On re-evaluation patient with significant improvement of symptoms after IV ketamine, IV fluid bolus. Patient with improvement of blood pressure 143/93, improvement of tachycardia with a heart rate of 90, Repeat lactic acid 1.4. Patient feeling well and is requesting discharge. No evidence of acute infection, nonsurgical/benign abdomen. Patient treated for sphincter of oddi dysfunction/spasms, abdominal pain, in the setting of acute on chronic pancreatitis. Patient is agreeable to follow up with her primary care providers, pain providers, GI providers. Will continue home medication, strict return precautions discussed. Plan for discharge. Patient understands and agrees the plan. Medical Records Attestation: I reviewed the patient's medical records. Lab Data Attestation: I reviewed the patient's lab results. Labs: Lab Results 07/15/25 07/15/25 Range/Units 02:15 03:48 WBC 9.33 (4.50-11.00) K/uL RBC 4.99 (4.00-5.20) m/uL Hgb 14.3 (12.0-16.0) gm/dL Hct 42.7 (33.0-51.0) % MCV 86 (80-100) fL MCH 29 (26-34) pg MCHC 34 (32-36) gm/dL RDW Coeff of Declan 12.5 (11.5-15.5) % Plt Count 435 (140-440) K/uL Neut % (Auto) 65.7 (42.0-72.0) % Lymph % (Auto) 27.0 (20-44) % [place] % (Auto) 4.7 (0.0-11.0) % Eos % (Auto) 1.3 (0.0-7.0) % Baso % (Auto) 1.1 (0.0-3.0) % Neut # (Auto) 6.13 (1.7-7.0) K/uL Lymph # (Auto) 2.52 (0.90-2.90) K/uL [place] # (Auto) 0.40 (0.00-0.90) K/UL Eos # (Auto) 0.12 (0.00-0.50) K/uL Baso # (Auto) 0.10 (0.00-0.30) K/uL Abs Immat Gran (auto) 0.02 (0.00-0.30) K/uL Imm/Tot Granulo (auto) 0.2 % Sodium 136 (135-149) mmol/L Potassium 3.7 (3.6-5.1) mmol/L Chloride 105 (96-114) mmol/L Carbon Dioxide 21 (20-32) mmol/L Anion Gap 10 (7-15) mEq/L BUN 9 (5-24) mg/dL Creatinine 0.9 (0.5-1.5) mg/dL Estimated Creat Clear 73.90 Estimated GFR 80 ml/min Glucose 155 H (60-115) mg/dL Lactate 2.1 H 1.4 (0.5-1.9) mmol/L Calcium 9.2 (8.4-10.6) mg/dL Total Bilirubin 0.4 (0.1-1.5) mg/dL AST 28 (12-35) U/L ALT 32 (4-35) U/L Alkaline Phosphatase 58 (40-150) U/L Total Protein 7.6 (6.0-8.3) g/dL Albumin 4.6 (3.3-5.0) g/dL Lipase 294 (23-300) U/L Discharge Plan Discharge Clinical Impression: Sphincter of Oddi dysfunction, Acute on chronic pancreatitis Abdominal pain Qualifiers: Abdominal location: upper abdomen, unspecified Qualified Code(s): R10.10 - Upper abdominal pain, unspecified Patient Disposition: Home, Self-Care Condition: Improved Additional Instructions: Please follow-up with your primary care provider, your pain management provider, and your GI provider for follow up and ongoing care. Please continue your own medications. Please return to the emergency department if you develop persistent high fever, severe pain, persistent vomiting, worsening symptoms. It was a pleasure taking care of you today. We hope you feel better soon. Prescriptions: No Action albuterol sulfate 90 mcg/actuation HFA aerosol inhaler 2 puff INHALATION QID PRN (Reason: shortness of breath or wheezing) hyoscyamine sulfate 0.125 mg tablet, sublingual 0.125 mg PO TID PRN diphenhydramine HCl [Benadryl] 25 mg capsule 50 mg PO DAILY PRN Rx Instructions: take 2 capsule by ORAL route every day as needed atorvastatin 40 mg tablet 40 mg PO DAILY cetirizine 5 mg tablet 5 mg PO QAM PRN Rx Instructions: PRN ALLERGIC REACTIONS fexofenadine 180 mg tablet 180 mg PO BID omega 6-yqu-pgx-fish oil [Fish Oil] 1,000 mg (120 mg-180 mg) capsule 1 cap PO QAM Rx Instructions: FOR HIGH TRIGLYCERIDES ondansetron 4 mg tablet,disintegrating 4 mg PO Q6H PRN hydromorphone 2 mg Tablet 4 mg PO Q6H PRN prazosin 2 mg capsule 4 mg PO HS oxycodone 5 mg capsule 5 mg PO Q4-6H PRN bupropion HCl 300 mg tablet extended release 24 hr 300 mg PO DAILY omeprazole 20 mg capsule,delayed release(DR/EC) 20 mg PO DAILY Creon 24,000-76,000 -120,000 unit capsule,delayed release(DR/EC) 1 cap PO TIDWM Rx Instructions: administer with meals and/or snacks duloxetine 60 mg capsule,delayed release(DR/EC) 120 mg PO DAILY quetiapine 200 mg tablet 200 mg PO DAILY quetiapine 300 mg tablet 300 mg PO HS trazodone 50 mg tablet 50 mg PO HS PRN epinephrine 0.3 mg/0.3 mL auto-injector 0.3 mg IM ONCE PRN (Reason: allergies) hydromorphone [Dilaudid] 4 mg tablet 2 - 4 mg PO Q4-6H PRN (Reason: pain) Qty: 10 0RF hydromorphone [Dilaudid] 4 mg tablet 2 - 4 mg PO Q4-6H PRN (Reason: pain) Qty: 12 0RF Follow Up/Referrals: Nila Salmon NP [Primary Care Provider, Family Practice] [facility]ructions
[2025-07-15] MEDS: ONDANSETRON 2 MG/ML inj 4 MG IVP (02:19)
[2025-07-15 02:28] LABS: Hematocrit* 42.7 % (33.0-51.0); Hemoglobin* 14.3 gm/dL (12.0-16.0); Immature Granulocytes Abs Auto 0.02 K/uL (0.00-0.30); Immature Granulocytes Pct Auto 0.2 %; Lymphocytes Absolute Auto 2.52 K/uL (0.90-2.90); Mean Corpuscular HGB Conc 34 gm/dL (32-36); Mean Corpuscular Hemoglobin 29 pg (26-34); Mean Corpuscular Volume 86 fL (80-100); RDW Coefficient of Variation % 12.5 % (11.5-15.5); Red Blood Count* 4.99 m/uL (4.00-5.20); White Blood Count* 9.33 K/uL (4.50-11.00)
[2025-07-15 02:30] LABS: Lactate* 2.1 mmol/L (0.5-1.9)
[2025-07-15] MEDS: KETAMINE HCL 20 MG in 0.9 % SODIUM CHLORIDE 100 ml 100 ML 200.4 MG IVPB (02:33)
[2025-07-15 02:44] LABS: Slide Review Reflex No
[2025-07-15 02:51] LABS: Albumin* 4.6 g/dL (3.3-5.0); Chloride* 105 mmol/L (96-114)
[2025-07-15 02:52] LABS: Potassium* 3.7 mmol/L (3.6-5.1); Sodium* 136 mmol/L (135-149)
[2025-07-15 02:54] LABS: Alanine Aminotransferase* 32 U/L (4-35); Alkaline Phosphatase* 58 U/L (40-150); Anion Gap 10 mEq/L (7-15); Aspartate Amino Transferase* 28 U/L (12-35); Bilirubin Total* 0.4 mg/dL (0.1-1.5); Blood Urea Nitrogen* 9 mg/dL (5-24); Calcium* 9.2 mg/dL (8.4-10.6); Carbon Dioxide* 21 mmol/L (20-32); Creatinine* 0.9 mg/dL (0.5-1.5); Est. Creatinine Clearance* 73.90; Estimated Glomerular Filt Rate 80 ml/min; Glucose* 155 mg/dL (60-115); Total Protein* 7.6 g/dL (6.0-8.3)
[2025-07-15 03:53] LABS: Lactate* 1.4 mmol/L (0.5-1.9)
[2025-07-15 04:19] LABS: Appearance Urine Clear (Clear)
[2025-07-15 04:21] LABS: Ur HCG Qualitative* Negative (Negative)
== END 2025-07-15 04:34 | disposition home or self-care (01) ==
PROVIDERS: Emergency Provider Emergency Medicine; PCP Nurse Practitioner Gerontology
DX: K85.90 Acute pancreatitis without necrosis or infection, unspecified (principal); K83.4 Spasm of sphincter of Oddi; Z87.891 Personal history of nicotine dependence
CPT/HCPCS: 36415; 80053; 81001; 81025; 83605; 83690; 85025; 87086; 94761; 96361; 96365; 96375; 99284; 99285; J1171; J2405; J3490; J7030